=== PATIENT | male | born 1955 | race Caucasian/White ===

== ENCOUNTER → 2017-09-06 | Day surgery (SDC) | payer BC, OTHER ==
[~2017-09-06] MED LIST: DEXAMETHASONE SOD PHOS 20 MG/5 ML VIAL.; GLYCOPYRROLATE 1 MG/5 ML VIAL.; KETOROLAC 30 MG/ML INJ FOR OR. INJ; LIDOCAINE 1% PF 2 ML VIAL. ID; MIDAZOLAM HCL/PF 2 MG/2 ML VIAL.; MORPHINE SULFATE 4 MG/ML DISP.SYRIN. IV; NEOSTIGMINE 10 MG/10 ML VIAL.; ONDANSETRON PF 4 MG/2 ML VIAL.; ONDANSETRON PF 4 MG/2 ML VIAL. IV; PROCHLORPERAZINE 10 MG/2 ML VIAL. IV; PROPOFOL 20 ML IV; ROCURONIUM 50 MG/5 ML VIAL.; SEVOFLURANE 61 TO 120 MINUTES. IH; SEVOFLURANE > 120 MINUTES. IH; fentaNYL PF VIAL 100 MCG/2 ML VIAL; fentaNYL PF VIAL 100 MCG/2 ML VIAL IV
[2017-09-06] MEDS: IV RINGERS,LACTATED 1000ML 1,000 ML IV (10:11)
[2017-09-06] MEDS: BUPIVACAINE-EPI 0.25%-1:200000 50 ML VIAL. IJ (12:40)
[2017-09-06] MEDS: oxyCODONE/APAP 5/325 1 TAB TABLET PO (14:07)
== END | disposition home or self-care (01) ==
LOC: SURG 09:39
DX: K80.10 Calculus of gallbladder with chronic cholecystitis without obstruction (principal); I10 Essential (primary) hypertension; E78.5 Hyperlipidemia, unspecified; Z98.890 Other specified postprocedural states; Z96.643 Presence of artificial hip joint, bilateral; Z96.652 Presence of left artificial knee joint; Z79.899 Other long term (current) drug therapy; Z79.891 Long term (current) use of opiate analgesic; Z82.49 Family history of ischemic heart disease and other diseases of the circulatory system
CPT/HCPCS: 47562; 88304; J1100; J1885; J2250; J2405; J2704; J2710; J3010; J3490

== ENCOUNTER 2018-07-17 09:34 | Emergency (ER) | payer BC, MEDICARE, OTHER ==
[~2018-07-17] VITALS: Ht 185.4 cm; Wt 115.7 kg
[~2018-07-17 09:34] MED LIST changes: +AMLO1TAB15 PO; +AMOX1TAB10 PO; +ASPI-612 PO; +CRESTOR10 MG PO; -DEXAMETHASONE SOD PHOS 20 MG/5 ML VIAL.; +DOCU-109 PO; -GLYCOPYRROLATE 1 MG/5 ML VIAL.; -KETOROLAC 30 MG/ML INJ FOR OR. INJ; -LIDOCAINE 1% PF 2 ML VIAL. ID; +METO-269 PO; -MIDAZOLAM HCL/PF 2 MG/2 ML VIAL.; -MORPHINE SULFATE 4 MG/ML DISP.SYRIN. IV; -NEOSTIGMINE 10 MG/10 ML VIAL.; -ONDANSETRON PF 4 MG/2 ML VIAL.; -ONDANSETRON PF 4 MG/2 ML VIAL. IV; +OXYC1TAB15 PO; +POLY17PO28 PO; -PROCHLORPERAZINE 10 MG/2 ML VIAL. IV; -PROPOFOL 20 ML IV; -ROCURONIUM 50 MG/5 ML VIAL.; -SEVOFLURANE 61 TO 120 MINUTES. IH; -SEVOFLURANE > 120 MINUTES. IH; +TAMS0.4C97 PO; -fentaNYL PF VIAL 100 MCG/2 ML VIAL; -fentaNYL PF VIAL 100 MCG/2 ML VIAL IV
--- NOTE | 2018-07-17 09:58 | PHYS DOC ---
Past Medical History Past Medical History: High Cholesterol, Hypertension Past Surgical History: Cholecystectomy, Hip Replacement, Knee Replacement, Other Additional Past Surgical Histo: ORAL SURGERY Alcohol Use: None Drug Use: None Adult General Chief Complaint Chief Complaint: LOWER EXT PAIN HPI HPI Patient is a 63-year-old male who presents to the emergency department for evaluation. He had a laminectomy, secondary to cauda equina syndrome about 2 weeks ago at this facility. He also has a Parker catheter in place secondary to some problems with urination and urinary retention after surgery. He is actually scheduled to see the urologist today to see about having the Parker catheter removed. The patient has decreased sensation from his hips distally, since before his surgery. Patient presents to the emergency department today because he became conscious of some right calf pain, dispense below his right knee, this morning and is concerned about a DVT given his recent surgery. He has no prior history of venous thromboembolic disease. He also is having some discomfort to palpation on his left leg, but this was elicited only on exam and not by history. He has developed some pedal edema and the immediate post surgery.. He denies any dizziness or lightheadedness, chest pain, or shortness of breath. There are no alleviating, or exacerbating factors to his symptoms. Review of Systems Review of Systems Constitutional: Denies fever or chills [] Eyes: Denies change in visual acuity, redness, or eye pain [] HENT: Denies nasal congestion or sore throat [] Respiratory: Denies cough or shortness of breath [] Cardiovascular: The patient denies any shortness of breath, chest pain, palpitations, or orthopnea [] GI: Denies abdominal pain, nausea, vomiting, bloody stools or diarrhea [] : Denies dysuria or hematuria [] Musculoskeletal: Denies back pain or joint pain [] Integument: Denies rash or skin lesions [] Neurologic: Denies headache, new focal weakness or new sensory changes [] Endocrine: Denies polyuria or polydipsia [] All other systems were reviewed and found to be within normal limits, except as documented in this note. Allergies Allergies Allergies Coded Allergies Type Severity Reaction Last Updated Verified No Known Drug Allergies 09/06/17 No Physical Exam Physical Exam PHYSICAL EXAM: CONSTITUTIONAL: Well developed, well nourished HEAD: normocephalic, atraumatic EENT: PERRL, EOMI. Conjunctivae normal color, sclerae non-icteric; moist mucous membranes. NECK: Supple, non-tender; no meningismus. LUNGS: Lungs CTA, breathing even and unlabored. Normal air movement. HEART: Regular rate and rhythm, no murmur CHEST: No deformity; non-tender ABDOMEN: The abdomen is soft, and non-tender, no masses or bruits. EXTREM: Normal ROM; no deformity, there is mild bilateral calf tenderness. Normal pulses palpable in all extremities. There is mild bilateral pedal edema. SKIN: No rash; no diaphoresis NEURO: Alert; normal speech and cognition; CN's grossly intact; strength grossly intact without focal deficit. Gross sensation is intact in lower extremities, although the patient does report somewhat diminished sensation in the lower extremities bilaterally, symmetrically. BACK: No CVA TTP. Current Patient Data Lab Values Laboratory Tests Test 07/17/18 09:45 White Blood Count 7.6 x10^3/uL (4.0-11.0) Red Blood Count 4.86 x10^6/uL (4.30-5.70) Hemoglobin 14.7 g/dL (13.0-17.5) Hematocrit 43.8 % (39.0-53.0) Mean Corpuscular Volume 90 fL (79-100) Mean Corpuscular Hemoglobin 30 pg (25-35) Mean Corpuscular Hemoglobin Concent 34 g/dL (31-37) Red Cell Distribution Width 13.6 % (11.5-14.5) Platelet Count 264 x10^3/uL (140-400) Neutrophils (%) (Auto) 72 % (31-73) Lymphocytes (%) (Auto) 13 % (24-48) L Monocytes (%) (Auto) 7 % (0-9) Eosinophils (%) (Auto) 8 % (0-3) H Basophils (%) (Auto) 1 % (0-3) Neutrophils # (Auto) 5.5 x10^3uL (1.8-7.7) Lymphocytes # (Auto) 1.0 x10^3/uL (1.0-4.8) Monocytes # (Auto) 0.5 x10^3/uL (0.0-1.1) Eosinophils # (Auto) 0.6 x10^3/uL (0.0-0.7) Basophils # (Auto) 0.1 x10^3/uL (0.0-0.2) Sodium Level 143 mmol/L (136-145) Potassium Level 3.6 mmol/L (3.5-5.1) Chloride Level 104 mmol/L (98-107) Carbon Dioxide Level 29 mmol/L (21-32) Anion Gap 10 (6-14) Blood Urea Nitrogen 15 mg/dL (8-26) Creatinine 0.9 mg/dL (0.7-1.3) Estimated GFR (Cockcroft-Gault) 84.7 Glucose Level 124 mg/dL (70-99) H Calcium Level 9.1 mg/dL (8.5-10.1) Laboratory Tests 07/17/18 09:45 Laboratory Tests 07/17/18 09:45 EKG EKG [] Radiology/Procedures Radiology/Procedures [PROCEDURE: VENOUS LOWER EXT BILATERAL Bilateral lower extremity venous duplex study 07/17/2018 Clinical History: Post op leg pain and edema. Technique: Using a combination of real time ultrasound imaging and color-flow and pulse Doppler imaging techniques along with graded compression and augmentation, duplex evaluation of the deep venous system of the both lower extremities was performed. Multiple images were obtained. Findings: There is no sonographic evidence of deep venous thrombosis involving the visualized deep venous structures of either lower extremity. Impression: Negative study. ] Course & Med Decision Making Course & Med Decision Making Pertinent Labs and Imaging studies reviewed. (See chart for details) [10:50 AM: Patient remains stable. I discussed test results, the need for close follow-up, and return precautions.] Dragon Disclaimer Dragon Disclaimer This electronic medical record was generated, in whole or in part, using a voice recognition dictation system. Departure Departure Impression: Primary Impression: Leg pain Disposition: HOME, SELF-CARE Condition: STABLE Referrals: NIKOLE BAY MD (PCP) Patient Instructions: Leg Cramps, Peripheral Edema FENG FARRELL MD Jul 17, 2018 09:58
[2018-07-17 10:12] LABS: BASO # 0.1 x10^3/uL (0.0-0.2); BASO % 1 % (0-3); EOS # 0.6 x10^3/uL (0.0-0.7); EOS % 8 % (0-3); HEMATOCRIT 43.8 % (39.0-53.0); HEMOGLOBIN 14.7 g/dL (13.0-17.5); LYMPH % 13 % (24-48); MEAN CORPUSCULAR HEMOGLOBIN 30 pg (25-35); MEAN CORPUSCULAR HGB CONC 34 g/dL (31-37); MEAN CORPUSCULAR VOLUME 90 fL (79-100); MONO # 0.5 x10^3/uL (0.0-1.1); MONO % 7 % (0-9); NEUT # 5.5 x10^3uL (1.8-7.7); NEUT % 72 % (31-73); PLATELET COUNT 264 x10^3/uL (140-400); RED BLOOD COUNT 4.86 x10^6/uL (4.30-5.70); RED CELL DISTRIBUTION WIDTH 13.6 % (11.5-14.5); WHITE BLOOD COUNT 7.6 x10^3/uL (4.0-11.0)
[2018-07-17 10:34] LABS: CALCIUM 9.1 mg/dL (8.5-10.1); CREATININE 0.9 mg/dL (0.7-1.3); GFR 84.7; POTASSIUM 3.6 mmol/L (3.5-5.1)
--- NOTE | 2018-07-17 10:49 | RAD ---
Bilateral lower extremity venous duplex study 07/17/2018 Clinical History: Post op leg pain and edema. Technique: Using a combination of real time ultrasound imaging and color-flow and pulse Doppler imaging techniques along with graded compression and augmentation, duplex evaluation of the deep venous system of the both lower extremities was performed. Multiple images were obtained. Findings: There is no sonographic evidence of deep venous thrombosis involving the visualized deep venous structures of either lower extremity. Impression: Negative study. Electronically signed by: Jax Morris MD (07/17/2018 10:45 AM) [id number]
[2018-07-17 11:30] VITALS: BP 139/93
[2018-07-24] MEDS ORDERED: CIPR500T94 PO (08:51)
[2018-11-13] MEDS ORDERED: GABA300C18 PO (04:31)
[2018-11-15] MEDS ORDERED: VANC500V PO (10:05)
[2018-11-15] MEDS ORDERED: LACT1CAP19 PO (10:05)
== END 2018-07-17 11:44 | disposition home or self-care (01) ==
LOC: EDBD → ER 09:34
DX: G89.18 Other acute postprocedural pain (principal); M79.661 Pain in right lower leg; R30.0 Dysuria; R33.9 Retention of urine, unspecified; E78.00 Pure hypercholesterolemia, unspecified; I10 Essential (primary) hypertension; Z96.649 Presence of unspecified artificial hip joint; Z96.659 Presence of unspecified artificial knee joint; Z90.49 Acquired absence of other specified parts of digestive tract
CPT/HCPCS: 36415; 80048; 85025; 93970; 99284-25

== ENCOUNTER 2018-09-03 10:37 | Inpatient (IN) | payer BC, MEDICARE, OTHER ==
[~2018-09-03] VITALS: Ht 185.4 cm; Wt 123.6 kg
[~2018-09-03 10:37] MED LIST changes: +CIPR500T94 PO
[2018-09-03 14:00] VITALS: BP 159/89
[2018-09-03] MEDS ORDERED: GADOBUTROL 10 MMOL/10 ML VIAL IV ONE (15:15)
[2018-09-03] MEDS ORDERED: oxyCODONE/APAP 5/325 1 TAB TABLET PO PRN ×2 (15:30→17:45)
[2018-09-03] MEDS ORDERED: DOCUSATE SODIUM 100 MG CAPSULE. PO PRN (15:30)
[2018-09-03] MEDS: ASPIRIN ENTERIC COATED 81 MG TABLET.DR. PO SCH (16:30)
[2018-09-03] MEDS: amLODIPine BESYLATE 10 MG TABLET PO SCH (16:30)
[2018-09-03] MEDS: METOPROLOL SUCC 24HR ER 50 MG TAB.ER.24H. PO SCH (16:30)
[2018-09-03] MEDS: LOSARTAN POTASSIUM 50 MG TABLET. PO SCH (16:30)
--- NOTE | 2018-09-03 16:33 | RAD ---
MR thoracic and lumbar spine without and with contrast 09/03/2018 INDICATION: Lower extremity weakness. Unable to ambulate are scanned. COMPARISON: MR thoracic and lumbar spine July 03, 2018 TECHNIQUE: Multiplanar, multisequence MR imaging of the thoracic and lumbar sinus performed with and without intravenous contrast. FINDINGS: Alignment of the thoracic spine appears normal. Vertebral body heights are maintained. Marrow signal intensity appears similar with Modic type II endplate degenerative changes are identified at T5-T6 and T7-T8. Mild to moderate anterior marginal osteophytosis is noted throughout the thoracic spine. Multilevel disc bulges appears similar compared to prior examination. There is new cord signal alteration involving the central cord from T9-T10 through the conus medullaris. There is minimal enhancement at the level of the conus medullaris. There is minimal prominence of the central ependymal canal measuring 2 mm. Appearance is most suggestive of transverse myelitis. There are areas of up to mild spinal canal stenosis, not significantly changed the prior examination. Multilevel mild neuroforaminal stenosis appears stable. Thoracic aorta is normal in caliber. No suspicious pulmonary abnormalities identified. Visualized portions of the upper abdomen appear similar. There is minimal retrolisthesis of L4 on L5. There is minimal retrolisthesis of L5 on S1. There is moderate disc height loss at L3-L4, L4-L5 and L5-S1. There is endplate irregularity with Modic type II endplate degenerative changes at L5-S1. Conus medullaris terminates at L1. Cauda equina nerve roots appear normal in appearance. Abdominal aorta is normal in caliber. There is similar appearance of the retroperitoneum. No suspicious findings are identified. Versus portions of the sacrum appear intact. L1-L2: Disc is normal in configuration. There is no neuroforaminal or spinal canal stenosis. L2-L3: There is a left central disc protrusion. There is mild right and moderate left facet arthropathy. There is mild left neuroforaminal stenosis. Mild spinal canal stenosis. Findings appear stable. L3-L4: There is a moderate disc bulge. There is moderate facet arthropathy. There is moderate bilateral neuroforaminal stenosis. Laminectomy changes are identified. No residual spinal canal stenosis is identified. There is decompression of the thecal sac. L4-L5: There is a moderate disc bulge with central disc protrusion. There is moderate facet arthropathy. There is moderate to severe bilateral neuroforaminal stenosis. No residual spinal canal stenosis status post laminectomy decompression. L5-S1: There is mild disc bulge. There is moderate facet arthropathy. There is moderate right and moderate to severe left neuroforaminal stenosis. No spinal canal stenosis. IMPRESSION: 1. New cord signal alteration involving the thoracic cord to the level of the conus from T9-T10, involving the central cord diffusely without definite cord expansion. There is enhancement involving the conus medullaris. Findings are most suggestive of transverse myelitis. 2. Postoperative changes are identified from laminectomy in the lower lumbar spine from L3 through L5 without residual spinal canal stenosis. 3. Moderate degenerative changes of the lumbar spine are described in detail above. Critical results were discussed with Dr. Benitez at 4:30 PM on 09/03/[address] Lima. Electronically signed by: Missy Lima MD (09/03/2018 4:30 PM) [id number]
[2018-09-03 16:55] LABS: BASO # 0.1 x10^3/uL (0.0-0.2); BASO % 1 % (0-3); EOS # 0.2 x10^3/uL (0.0-0.7); EOS % 2 % (0-3); HEMATOCRIT 43.6 % (39.0-53.0); HEMOGLOBIN 14.5 g/dL (13.0-17.5); LYMPH % 10 % (24-48); MEAN CORPUSCULAR HEMOGLOBIN 30 pg (25-35); MEAN CORPUSCULAR HGB CONC 33 g/dL (31-37); MEAN CORPUSCULAR VOLUME 90 fL (79-100); MONO # 0.7 x10^3/uL (0.0-1.1); MONO % 7 % (0-9); NEUT % 80 % (31-73); PLATELET COUNT 212 x10^3/uL (140-400); RED BLOOD COUNT 4.85 x10^6/uL (4.30-5.70)
[2018-09-03 17:17] LABS: ALBUMIN/GLOBULIN RATIO 0.7 (1.0-1.7); CALCIUM 8.5 mg/dL (8.5-10.1); CREATININE 0.7 mg/dL (0.7-1.3); GFR 113.2; POTASSIUM 3.9 mmol/L (3.5-5.1); TOTAL BILIRUBIN 0.5 mg/dL (0.2-1.0); TOTAL PROTEIN 7.1 g/dL (6.4-8.2)
--- NOTE | 2018-09-03 17:21 | PDOC1 ---
History and Physical Date of Admission Date of Admission DATE: 09/03/18 TIME: 17:20 Identification/Chief Complaint Chief Complaint CC 63-year-old gentleman with past medical history of Equina syndrome. He recently underwent surgery from the neurosurgical standpoint of view. Unfortunately as a consequence of his hospital stay he suffered urinary retention, now straight caths MRI T/S TODAY C/W NEW FINDINGS OF TRANSVERSE MYELITIS, HAS NOTICED inability to ambulate or hold his weight with a walker x 2-3 days, unable to negotiate steps Past Medical History Past Medical History Past Medical History Past Medical History: High Cholesterol, Hypertension Past Surgical History: Cholecystectomy, Hip Replacement, Knee Replacement, Lumbar Laminectomy, Other Additional Past Surgical Histo: oral surgery. Alcohol Use: Occasionally Drug Use: None FAMILY HX HTN PATIENT: DONAVON TRAVIS ACCOUNT: [id number] : 1955 LOC: [address] [place] [address] AGE: 63 SEX: M STATUS: DIS IN LOCATION: [address] [place] [address] DATE OF SURGERY: 07/03/2018 PREOPERATIVE DIAGNOSES: 1. Lumbar spinal stenosis, L3-L4. 2. Epidural abscess, L5-S1. POSTOPERATIVE DIAGNOSES: 1. Lumbar spinal stenosis, L3-L4. 2. Lateral recess stenosis without epidural abscess, L5-S1. OPERATION PERFORMED: Lumbar laminectomy, L3-L4, L5-S1 with decompression of dura and nerve root. SURGEON: Taj Benitez M.D. Past Medical History Cardiovascular: HTN, Hyperlipidemia, Other Pulmonary: No pertinent hx CENTRAL NERVOUS SYSTEM: Periperal neuropathy GI: No pertinent hx Heme/Onc: No pertinent hx Hepatobiliary: No pertinent hx, Cholelithiasis Psych: No pertinent hx Rheumatologic: No pertinent hx Infectious disease: No pertinent hx Renal/: No pertinent hx Endocrine: No pertinent hx Past Surgical History Past Surgical History: Other Family History Family History: Heart Disease, Social History ALCOHOL: occassional Drugs: None Cardiovascular: HTN, Hyperlipidemia, Other Pulmonary: No pertinent hx CENTRAL NERVOUS SYSTEM: Periperal neuropathy GI: No pertinent hx Heme/Onc: No pertinent hx Hepatobiliary: No pertinent hx, Cholelithiasis Psych: No pertinent hx Musculoskeletal: Osteoarthritis, Other Rheumatologic: No pertinent hx Infectious disease: No pertinent hx Renal/: No pertinent hx Endocrine: No pertinent hx Past Surgical History Past Surgical History: Other Family History Family History: Heart Disease, Other Social History Smoke: No ALCOHOL: none Drugs: None Current Medications Current Medications Current Medications Gadobutrol (Gadavist) 10 mmol 1X ONCE IV Last administered on 09/03/18at 15:35 ; Start 09/03/18 at 15:15; Stop 09/03/18 at 15:16; Status DC Aspirin (Ecotrin) 81 mg DAILYWBKFT PO ; Start 09/03/18 at 16:30 Docusate Sodium (Colace) 100 mg PRN DAILY PRN PO HARD STOOLS; Start 09/03/18 at 15:30 Tamsulosin HCl (Flomax) 0.4 mg BID PO ; Start 09/03/18 at 21:00 Non-Formulary Medication (Amlodipine/ Valsartan (Exforge 10-320 Mg Tablet)) 1 tab DAILY PO ; Start 09/04/18 at 09:00; Status UNV Metoprolol Succinate (Toprol Xl) 50 mg DAILY PO ; Start 09/03/18 at 16:30 Polyethylene Glycol (miraLAX PACKET) 17 gm PRN DAILY PRN PO CONSTIPATION 2ND CHOICE; Start 09/04/18 at 09:00 Atorvastatin Calcium (Lipitor) 40 mg QHS PO ; Start 09/03/18 at 21:00 Oxycodone/ Acetaminophen (Percocet 5/325) 1 tab PRN Q4HRS PRN PO PAIN; Start at 15:30 Amlodipine Besylate (Norvasc) 10 mg DAILY PO ; Start 09/03/18 at 16:30 Losartan Potassium (Cozaar) 100 mg DAILY PO ; Start 09/03/18 at 16:30 Active Scripts Active Cipro (Ciprofloxacin Hcl) 500 Mg Tablet 1 Tab PO BID Aspirin Ec (Aspirin) 81 Mg Tablet.dr 81 Mg PO DAILYWBKFT 30 Days Colace (Docusate Sodium) 100 Mg Capsule 100 Mg PO PRN DAILY PRN 30 Days Polyethylene Glycol 3350 17 Gm Powd.pack 17 Gm PO PRN DAILY PRN 14 Days Flomax (Tamsulosin Hcl) 0.4 Mg Cap.er.24h 0.4 Mg PO BID 30 Days Reported Percocet 5-325 Mg Tablet (Oxycodone/Acetaminophen) 1 Each Tablet 1-2 Tab PO Q4-6HRS Exforge 10-320 Mg Tablet (Amlodipine/Valsartan) 1 Each Tablet 1 Tab PO DAILY Crestor (Rosuvastatin Calcium) 10 Mg Tablet 1 Tab PO DAILY Toprol Xl (Metoprolol Succinate) 50 Mg Tab.er.24h 1 Tab PO DAILY Allergies Allergies: Coded Allergies: No Known Drug Allergies (Unverified , 09/06/17) ROS Review of System Review of Systems Review of Systems Constitutional: NEG fever and chills [] Respiratory: Denies cough or shortness of breath [] Cardiovascular: No additional information not addressed in HPI [] GI: Denies abdominal pain, nausea, vomiting or diarrhea [] Musculoskeletal: Denies back pain. Complains BILATER LEG WEAKNESS [] Integument: Denies rash or skin lesions [] 14 PT systems were reviewed and found to be within normal limits, except as documented Physical Exam Physical Exam Physical Exam Physical Exam Constitutional: Well developed, well nourished, no acute distress, non-toxic appearance. [] HENT: Normocephalic, atraumatic, bilateral external ears normal, oropharynx moist, no oral exudates, nose normal. [] Eyes: PERRLA, EOMI, conjunctiva normal, no discharge. [] Neck: Normal range of motion, no tenderness, supple. [] Cardiovascular: Regular rate and rhythm [] Lungs & Thorax: Bilateral breath sounds clear to auscultation [] Abdomen: Bowel sounds normal, soft, no tenderness. [] Skin: Warm, dry, no erythema, no rash. [] Extremities: No tenderness, no cyanosis, no clubbing, ROM intact. [] Neurologic: Awake and alert. [] Abdomen: Soft Rectal Exam: not examined PELVIC: Examination not indicated Extremities: No cyanosis Neuro: Cranial nerves 3-12 NL, Other (AREFLEXIC BOTH LOWER LEGS) Vitals Vitals Vital Signs Date Time Temp Pulse Resp B/P (MAP) Pulse Ox O2 Delivery O2 Flow Rate FiO2 09/03/18 14:00 98.1 86 18 159/89 (112) 96 Room Air 98.1 Labs Labs URINE CULTURE Final Final report URINE CULTURE RES 1 Final Escherichia coli Greater than 100,000 colony forming units per mL Cefazolin <=4 ug/mL Cefazolin with an LUIS M <=16 predicts susceptibility to the oral agents cefaclor, cefdinir, cefpodoxime, cefprozil, cefuroxime, cephalexin, and loracarbef when used for therapy of uncomplicated urinary tract infections due to E. coli, Klebsiella pneumoniae, and Proteus mirabilis. ANTIMICROBIAL SUSCEPTIBILITY Final Comment S = Susceptible; I = Intermediate; R = Resistant P = Positive; N = Negative MICS are expressed in micrograms per mL Antibiotic RSLT#1 RSLT#2 RSLT#3 RSLT#4 Amoxicillin/Clavulanic Acid S<=2 Ampicillin S<=2 Cefepime S<=0.12 Ceftriaxone S<=0.25 Cefuroxime S =4 Ciprofloxacin S<=0.25 Ertapenem S<=0.12 Gentamicin S<=1 Imipenem S<=0.25 Levofloxacin S<=0.12 Meropenem S<=0.25 Nitrofurantoin S<=16 Piperacillin/Tazobactam S<=4 Tetracycline S<=1 Tobramycin S<=1 Trimethoprim/Sulfa S<=20 Performed at: [facility] - [facility] [address], [place], [place] [id number] Laboratory Tests Test 09/03/18 16:45 White Blood Count 10.0 x10^3/uL (4.0-11.0) Red Blood Count 4.85 x10^6/uL (4.30-5.70) Hemoglobin 14.5 g/dL (13.0-17.5) Hematocrit 43.6 % (39.0-53.0) Mean Corpuscular Volume 90 fL (79-100) Mean Corpuscular Hemoglobin 30 pg (25-35) Mean Corpuscular Hemoglobin Concent 33 g/dL (31-37) Red Cell Distribution Width 14.0 % (11.5-14.5) Platelet Count 212 x10^3/uL (140-400) Neutrophils (%) (Auto) 80 % (31-73) Lymphocytes (%) (Auto) 10 % (24-48) Monocytes (%) (Auto) 7 % (0-9) Eosinophils (%) (Auto) 2 % (0-3) Basophils (%) (Auto) 1 % (0-3) Neutrophils # (Auto) 8.0 x10^3uL (1.8-7.7) Lymphocytes # (Auto) 1.0 x10^3/uL (1.0-4.8) Monocytes # (Auto) 0.7 x10^3/uL (0.0-1.1) Eosinophils # (Auto) 0.2 x10^3/uL (0.0-0.7) Basophils # (Auto) 0.1 x10^3/uL (0.0-0.2) Sodium Level 142 mmol/L (136-145) Potassium Level 3.9 mmol/L (3.5-5.1) Chloride Level 104 mmol/L (98-107) Carbon Dioxide Level 29 mmol/L (21-32) Anion Gap 9 (6-14) Blood Urea Nitrogen 15 mg/dL (8-26) Creatinine 0.7 mg/dL (0.7-1.3) Estimated GFR (Cockcroft-Gault) 113.2 BUN/Creatinine Ratio 21 (6-20) Glucose Level 104 mg/dL (70-99) Calcium Level 8.5 mg/dL (8.5-10.1) Total Bilirubin 0.5 mg/dL (0.2-1.0) Aspartate Amino Transf (AST/SGOT) 20 U/L (15-37) Alanine Aminotransferase (ALT/SGPT) 26 U/L (16-63) Alkaline Phosphatase 86 U/L (46-116) Total Protein 7.1 g/dL (6.4-8.2) Albumin 3.0 g/dL (3.4-5.0) Albumin/Globulin Ratio 0.7 (1.0-1.7) Laboratory Tests Test 09/03/18 16:45 White Blood Count 10.0 x10^3/uL (4.0-11.0) Red Blood Count 4.85 x10^6/uL (4.30-5.70) Hemoglobin 14.5 g/dL (13.0-17.5) Hematocrit 43.6 % (39.0-53.0) Mean Corpuscular Volume 90 fL (79-100) Mean Corpuscular Hemoglobin 30 pg (25-35) Mean Corpuscular Hemoglobin Concent 33 g/dL (31-37) Red Cell Distribution Width 14.0 % (11.5-14.5) Platelet Count 212 x10^3/uL (140-400) Neutrophils (%) (Auto) 80 % (31-73) Lymphocytes (%) (Auto) 10 % (24-48) Monocytes (%) (Auto) 7 % (0-9) Eosinophils (%) (Auto) 2 % (0-3) Basophils (%) (Auto) 1 % (0-3) Neutrophils # (Auto) 8.0 x10^3uL (1.8-7.7) Lymphocytes # (Auto) 1.0 x10^3/uL (1.0-4.8) Monocytes # (Auto) 0.7 x10^3/uL (0.0-1.1) Eosinophils # (Auto) 0.2 x10^3/uL (0.0-0.7) Basophils # (Auto) 0.1 x10^3/uL (0.0-0.2) Sodium Level 142 mmol/L (136-145) Potassium Level 3.9 mmol/L (3.5-5.1) Chloride Level 104 mmol/L (98-107) Carbon Dioxide Level 29 mmol/L (21-32) Anion Gap 9 (6-14) Blood Urea Nitrogen 15 mg/dL (8-26) Creatinine 0.7 mg/dL (0.7-1.3) Estimated GFR (Cockcroft-Gault) 113.2 BUN/Creatinine Ratio 21 (6-20) Glucose Level 104 mg/dL (70-99) Calcium Level 8.5 mg/dL (8.5-10.1) Total Bilirubin 0.5 mg/dL (0.2-1.0) Aspartate Amino Transf (AST/SGOT) 20 U/L (15-37) Alanine Aminotransferase (ALT/SGPT) 26 U/L (16-63) Alkaline Phosphatase 86 U/L (46-116) Total Protein 7.1 g/dL (6.4-8.2) Albumin 3.0 g/dL (3.4-5.0) Albumin/Globulin Ratio 0.7 (1.0-1.7) Images Images STATUS: ADM IN ORD. PHYSICIAN: CHANTELLE PICKERING MD REASON: fever, UTI, TO DO 07/22/2018 PER BRITTANEY WILKERSONWORD PROCESSOR: CT ABDOMEN PELVIS WO CONTRAST Examination: CT ABDOMEN PELVIS WO CONTRAST History: Fever, UTI Comparison/Correlation: None Findings: Axial images of the abdomen and pelvis were obtained without contrast. Sagittal and coronal reformatted images were provided. Very small pleural effusions are present. Minimal right costophrenic sulcus atelectasis noted. Liver, spleen, pancreas, adrenal glands, and kidneys are normal. No radiopaque collecting system calculus. No ascites or pelvic free fluid. Cholecystectomy evident. Moderate quantity of stool in the colon is present. Appendix is normal. Minimal stranding or edema is noted anterior to the right and left psoas muscles at the upper pelvic level. No extraluminal gas. No bowel obstruction. Bilateral hip joint prostheses are present with streak artifact limiting assessment of the pelvis. Minimal presacral edema. Urinary bladder is unremarkable. Severe disc space narrowing is present from L4 to S1. Moderate to severe L3-4 disc space narrowing is present. Bilateral L5 3 and L5 laminectomy defects are present. Impression: Very small pleural effusions with minimal right costophrenic sulcus atelectasis. No focal inflammatory process or collection. There is nonspecific stranding or edema anterior to the psoas muscles and minimal presacral edema. These are of indeterminate age. Electronically signed by: Igor Urena MD (07/22/2018 8:52 AM) [id number] REASON: lower extremity weakness PROCEDURE: LUMBAR SPINE WO/W CONTRAST MR thoracic and lumbar spine without and with contrast 09/03/2018 INDICATION: Lower extremity weakness. Unable to ambulate are scanned. COMPARISON: MR thoracic and lumbar spine July 03, 2018 TECHNIQUE: Multiplanar, multisequence MR imaging of the thoracic and lumbar sinus performed with and without intravenous contrast. FINDINGS: Alignment of the thoracic spine appears normal. Vertebral body heights are maintained. Marrow signal intensity appears similar with Modic type II endplate degenerative changes are identified at T5-T6 and T7-T8. Mild to moderate anterior marginal osteophytosis is noted throughout the thoracic spine. Multilevel disc bulges appears similar compared to prior examination. There is new cord signal alteration involving the central cord from T9-T10 through the conus medullaris. There is minimal enhancement at the level of the conus medullaris. There is minimal prominence of the central ependymal canal measuring 2 mm. Appearance is most suggestive of transverse myelitis. There are areas of up to mild spinal canal stenosis, not significantly changed the prior examination. Multilevel mild neuroforaminal stenosis appears stable. Thoracic aorta is normal in caliber. No suspicious pulmonary abnormalities identified. Visualized portions of the upper abdomen appear similar. There is minimal retrolisthesis of L4 on L5. There is minimal retrolisthesis of L5 on S1. There is moderate disc height loss at L3-L4, L4-L5 and L5-S1. There is endplate irregularity with Modic type II endplate degenerative changes at L5-S1. Conus medullaris terminates at L1. Cauda equina nerve roots appear normal in appearance. Abdominal aorta is normal in caliber. There is similar appearance of the retroperitoneum. No suspicious findings are identified. Versus portions of the sacrum appear intact. L1-L2: Disc is normal in configuration. There is no neuroforaminal or spinal canal stenosis. L2-L3: There is a left central disc protrusion. There is mild right and moderate left facet arthropathy. There is mild left neuroforaminal stenosis. Mild spinal canal stenosis. Findings appear stable. L3-L4: There is a moderate disc bulge. There is moderate facet arthropathy. There is moderate bilateral neuroforaminal stenosis. Laminectomy changes are identified. No residual spinal canal stenosis is identified. There is decompression of the thecal sac. L4-L5: There is a moderate disc bulge with central disc protrusion. There is moderate facet arthropathy. There is moderate to severe bilateral neuroforaminal stenosis. No residual spinal canal stenosis status post laminectomy decompression. L5-S1: There is mild disc bulge. There is moderate facet arthropathy. There is moderate right and moderate to severe left neuroforaminal stenosis. No spinal canal stenosis. IMPRESSION: 1. New cord signal alteration involving the thoracic cord to the level of the conus from T9-T10, involving the central cord diffusely without definite cord expansion. There is enhancement involving the conus medullaris. Findings are most suggestive of transverse myelitis. 2. Postoperative changes are identified from laminectomy in the lower lumbar spine from L3 through L5 without residual spinal canal stenosis. 3. Moderate degenerative changes of the lumbar spine are described in detail above. Critical results were discussed with Dr. Benitez at 4:30 PM on 09/03/[address] Dixon. Electronically signed by: Arsen Dixon MD (09/03/2018 4:30 PM) [id number] DICTATED and SIGNED BY: ARSEN DIXON MD DATE: 09/03/18 1630 VTE Prophylaxis Ordered VTE Prophylaxis Devices: Yes VTE Pharmacological Prophylaxi: Yes Assessment/Plan Assessment/Plan IMPRESSION: 1. New cord signal alteration 09/03 on mri involving the thoracic cord to the level of the conus from T9-T10, involving the central cord diffusely without definite cord expansion. There is enhancement involving the conus medullaris. Findings are most suggestive of transverse myelitis. 2. Postoperative changes are identified from laminectomy in the lower lumbar spine from L3 through L5 without residual spinal canal stenosis 3.Neurogenic bladder 4.hyperlipidemia 5.Essential hypertension 6. recent cauda equina syndrome status post surgery - 7. Lumbar laminectomy, L3-L4, L5-S1 with decompression of dura and nerve root. plan admit neurosurg consult neurology consult [facility] CBC COMP CONSULT DR BASHIR BP CONTROL 80 min pt exam, chart review, > 50% of time with exam, chart review, pt care coordination RYLIE ARVIZU MD Sep 03, 2018 17:21
[2018-09-03] MEDS ORDERED: ACETAMINOPHEN 325 MG TABLET. PO PRN (18:45)
--- NOTE | 2018-09-03 19:12 | HP ---
ADMIT DATE: 09/03/2018 CHIEF COMPLAINT: Lower extremities weakness. HISTORY OF PRESENT ILLNESS: The patient is a pleasant 63-year-old man who in late June underwent emergent lumbar surgery at L3-L4 and L5-S1 for lumbar stenosis and loss of bowel and bladder function as well as leg pain, right greater than the left. He improved significantly with strength and sensation in the lower extremities. He was discharged and was placed into physical therapy. He did continue to straight cath. A few weeks after surgery he did develop problems with UTI and then later problems with C. diff, but those problems resolved. His and he reported that about 2 weeks ago, he fell in the shower and then after that time began noticing increasing weakness in his legs. He says that for the last 3 days, he has had difficulty transferring from wheelchair to his bed and has been basically at bed rest. We were contacted today about the situation and elected to admit him for further evaluation and treatment. In speaking with the patient, he says that he notices change in sensation in the lower abdomen, which extends to involve both of his legs. He says that his right leg feels weaker than his left leg. PAST MEDICAL HISTORY: Includes hypertension and hyperlipidemia. PAST SURGICAL HISTORY: Hip replacement, knee replacement surgeries as well as lumbar surgery as described above. PERSONAL HISTORY: He does not smoke. He occasionally drinks alcohol. ALLERGIES: There are no known allergies to medications. MEDICATIONS: Available in the chart and are noncontributory. REVIEW OF SYSTEMS: A 12-point review was performed and as outlined above was negative. PHYSICAL EXAMINATION: GENERAL: Pleasant and cooperative. Alert and conversant. HEENT: Normocephalic, atraumatic. NECK: Supple. NEUROLOGIC: There was full range of motion of his upper extremities along with normal strength in his upper extremities. Sensory examination was also normal in the upper extremities with 1+ reflexes. Strength in his left lower extremity was 4+/5 including hip flexor, knee extension. Foot dorsi and plantar flexion on the left was 3/5. On the right side, strength was 3/5 diffusely in the legs except for 2/5 foot dorsi and plantar flexion. On sensory testing, there was a sensory level in the lower abdominal region with decreased sensation involving both of his legs equally. He was areflexic in his lower extremities. Examination of the spine, there is a well-healed incision, which is nontender. LABORATORY DATA: I reviewed a thoracic and lumbar MRI scan. On the lumbar study, these areas of stenosis had been completely relieved with the surgery done in June. On the thoracic MRI scan when compared to a previous thoracic MRI scan done in June, there is evidence of cord signal alteration which extends from the conus up to about T9-T10, this involves a central cord. There was not significant cord expansion. There is enhancement in the conus region. IMPRESSION: The images strongly suggest transverse myelitis, which clearly was not present on the scan done in June. PLAN: We are going to have Neurology see the patient. I will ask Dr. Frias to see the patient as well and Medicine has been consulted. FELICITY DORANTES MD DR: BRIAN/sen JOB#: [id number] / [id number] XIMENA
[2018-09-03 19:30] VITALS: BP 146/83
[2018-09-03 19:32] LABS: BILIRUBIN,URINE NEGATIVE (NEG); CLARITY,URINE CLEAR; COLOR,URINE YELLOW; NITRITE,URINE NEGATIVE (NEG); PH,URINE 6.5; PROTEIN,URINE NEGATIVE (NEG-TRACE); UROBILINOGEN,URINE 0.2 mg/dL (0.2 mg/dL)
[2018-09-03 19:59] LABS: AMORPHOUS SEDIMENT,UR PRESENT /HPF; BACTERIA,URINE FEW /HPF (0-FEW); RBC,URINE OCC /HPF (0-2); SQUAMOUS EPITHELIAL CELL,UR OCC /LPF
--- NOTE | 2018-09-03 20:04 | NUR ---
Pt arrived via stretcher with EMS. A&O X 4. VSS, denied pain, complained of bilateral lower extremity weakness. Complete admission assessment. Awaiting orders from Oriented to room. call light within reach. at bedside. will continue to monitor.
[2018-09-03] MEDS: TAMSULOSIN 0.4 MG CAP.ER.24H. PO SCH (21:01)
[2018-09-03] MEDS: ATORVASTATIN CALCIUM 40 MG TABLET. PO SCH (21:01)
[2018-09-03] MEDS: CIPROFLOXACIN HCL 250 MG TABLET. PO SCH (21:02)
--- NOTE | 2018-09-03 21:38 | RAD ---
CLINICAL HISTORY: BILAT LEG SWELLING, WEAKNESS COMPARISON: None available. TECHNIQUE: Ultrasound evaluation of the bilateral lower extremities was performed from the groin to the upper calf with bautista scale, spectral and color doppler evaluation. FINDINGS: Right lower extremity: The common femoral vein, and femoral vein, including the saphenous-femoral junction are normal in appearance. Color and spectral Doppler evaluation demonstrates normal spontaneous flow, augmentation and phasicity. The popliteal vein also demonstrates normal compressibility and flow. Nonocclusive thrombus is seen within the right posterior tibial vein and peroneal vein. Left lower extremity: The common femoral vein, and femoral vein, including the saphenous-femoral junction are normal in appearance. Color and spectral Doppler evaluation demonstrates normal spontaneous flow, augmentation and phasicity. The popliteal vein and visualized calf veins also demonstrate normal compressibility and flow. Mild edema is seen within the bilateral lower extremities. IMPRESSION: 1. Nonocclusive thrombus is seen within the right posterior tibial vein and peroneal vein. 2. Bilateral lower extremity edema. Electronically signed by: Werner Benson MD (09/03/2018 9:35 PM) [facility]
[2018-09-03 23:43] VITALS: BP 142/75
[2018-09-04] MEDS: oxyCODONE/APAP 5/325 1 TAB TABLET PO PRN ×5 (00:01→19:54)
[2018-09-04 03:13] VITALS: BP 115/66
[2018-09-04 04:58] LABS: BASO # 0.1 x10^3/uL (0.0-0.2); BASO % 1 % (0-3); EOS # 0.2 x10^3/uL (0.0-0.7); EOS % 2 % (0-3); LYMPH # 1.3 x10^3/uL (1.0-4.8); LYMPH % 13 % (24-48); MEAN CORPUSCULAR HEMOGLOBIN 30 pg (25-35); MEAN CORPUSCULAR HGB CONC 33 g/dL (31-37); MEAN CORPUSCULAR VOLUME 90 fL (79-100); MONO # 0.9 x10^3/uL (0.0-1.1); MONO % 9 % (0-9); NEUT # 7.7 x10^3uL (1.8-7.7); NEUT % 75 % (31-73); PLATELET COUNT 195 x10^3/uL (140-400); RED BLOOD COUNT 4.35 x10^6/uL (4.30-5.70); RED CELL DISTRIBUTION WIDTH 14.1 % (11.5-14.5); WHITE BLOOD COUNT 10.2 x10^3/uL (4.0-11.0)
[2018-09-04 05:18] LABS: CALCIUM 8.1 mg/dL (8.5-10.1); CREATININE 0.8 mg/dL (0.7-1.3); POTASSIUM 3.5 mmol/L (3.5-5.1)
[2018-09-04 07:00] VITALS: BP 138/71
[2018-09-04] MEDS: ASPIRIN ENTERIC COATED 81 MG TABLET.DR. PO SCH (07:52)
[2018-09-04] MEDS: amLODIPine BESYLATE 10 MG TABLET PO SCH (07:53)
[2018-09-04] MEDS: CIPROFLOXACIN HCL 250 MG TABLET. PO SCH ×2 (07:53→21:12)
[2018-09-04] MEDS: TAMSULOSIN 0.4 MG CAP.ER.24H. PO SCH ×2 (07:54→21:13)
[2018-09-04] MEDS: METOPROLOL SUCC 24HR ER 50 MG TAB.ER.24H. PO SCH (07:54)
[2018-09-04] MEDS: LOSARTAN POTASSIUM 50 MG TABLET. PO SCH (08:18)
[2018-09-04] MEDS ORDERED: AMLODIPINE PO SCH (09:00)
[2018-09-04] MEDS ORDERED: POLYETHYLENE GLYCOL 3350 17 GM PACKET. PO PRN (09:00)
[2018-09-04] MEDS ORDERED: VALSARTAN PO SCH (09:00)
--- NOTE | 2018-09-04 09:11 | NUR ---
SW following for discharge planning. Discussed with RN, pt is from home with . is very supportive and wants to take care of pt. Per RN, pt had a surgery last month possibly and has had some complications since. SW awaiting PT/OT recommendations for discharge planning.
[2018-09-04] MEDS ORDERED: BISACODYL 10 MG SUPP.RECT. PR PRN (09:30)
[2018-09-04] MEDS ORDERED: DOCUSATE SODIUM 283 MG/5 ML ENEMA. PR PRN (09:30)
[2018-09-04] MEDS ORDERED: methylPREDNISolone 4 MG TABLET. PO SCH ×2 (10:00→12:30)
[2018-09-04] MEDS: BISACODYL 5 MG TABLET.DR. PO SCH (10:00)
[2018-09-04 11:00] VITALS: BP 125/80
[2018-09-04] MEDS: PANTOPRAZOLE 40 MG TABLET.DR. PO SCH (11:07)
[2018-09-04] MEDS ORDERED: HYDROCORTISONE ACETATE 25 MG SUPP.RECT PR PRN (13:30)
[2018-09-04] MEDS ORDERED: GADOBUTROL 10 MMOL/10 ML VIAL IV ONE (13:30)
--- NOTE | 2018-09-04 13:45 | PDOC ---
PROGRESS NOTES Subjective Subjective resting in bed back pain controlled with medication no significant improvement in LE strength at bedside Objective Objective Vital Signs Date Time Temp Pulse Resp B/P (MAP) Pulse Ox O2 Delivery O2 Flow Rate FiO2 09/04/18 11:07 Room Air 09/04/18 11:00 98.0 52 18 125/80 (95) 91 98.0 Intake and Output 09/04/18 07:00 Intake Total 480 ml Output Total 2510 ml Balance -2030 ml Intake Oral 480 ml Output Urine Total 2510 ml Physical Exam General: Alert, Oriented X3, Cooperative, No acute distress Neuro: Other (no change in neuro exam) Plan Plan of Care continue steroids per neurology PT lovenox Dr. Frias following, will need rehab Dr. Carrasquillo following and LP and MRI brain ordered D/W Dr. Baez D/W Comment Review of Relevant I have reviewed the following items franc (where applicable) has been applied. Labs Laboratory Tests Test 09/03/18 16:45 09/03/18 19:18 09/04/18 03:35 White Blood Count 10.0 x10^3/uL (4.0-11.0) 10.2 x10^3/uL (4.0-11.0) Red Blood Count 4.85 x10^6/uL (4.30-5.70) 4.35 x10^6/uL (4.30-5.70) Hemoglobin 14.5 g/dL (13.0-17.5) 13.0 g/dL (13.0-17.5) Hematocrit 43.6 % (39.0-53.0) 39.0 % (39.0-53.0) Mean Corpuscular Volume 90 fL (79-100) 90 fL (79-100) Mean Corpuscular Hemoglobin 30 pg (25-35) 30 pg (25-35) Mean Corpuscular Hemoglobin Concent 33 g/dL (31-37) 33 g/dL (31-37) Red Cell Distribution Width 14.0 % (11.5-14.5) 14.1 % (11.5-14.5) Platelet Count 212 x10^3/uL (140-400) 195 x10^3/uL (140-400) Neutrophils (%) (Auto) 80 % (31-73) 75 % (31-73) Lymphocytes (%) (Auto) 10 % (24-48) 13 % (24-48) Monocytes (%) (Auto) 7 % (0-9) 9 % (0-9) Eosinophils (%) (Auto) 2 % (0-3) 2 % (0-3) Basophils (%) (Auto) 1 % (0-3) 1 % (0-3) Neutrophils # (Auto) 8.0 x10^3uL (1.8-7.7) 7.7 x10^3uL (1.8-7.7) Lymphocytes # (Auto) 1.0 x10^3/uL (1.0-4.8) 1.3 x10^3/uL (1.0-4.8) Monocytes # (Auto) 0.7 x10^3/uL (0.0-1.1) 0.9 x10^3/uL (0.0-1.1) Eosinophils # (Auto) 0.2 x10^3/uL (0.0-0.7) 0.2 x10^3/uL (0.0-0.7) Basophils # (Auto) 0.1 x10^3/uL (0.0-0.2) 0.1 x10^3/uL (0.0-0.2) Sodium Level 142 mmol/L (136-145) 141 mmol/L (136-145) Potassium Level 3.9 mmol/L (3.5-5.1) 3.5 mmol/L (3.5-5.1) Chloride Level 104 mmol/L (98-107) 106 mmol/L (98-107) Carbon Dioxide Level 29 mmol/L (21-32) 26 mmol/L (21-32) Anion Gap 9 (6-14) 9 (6-14) Blood Urea Nitrogen 15 mg/dL (8-26) 15 mg/dL (8-26) Creatinine 0.7 mg/dL (0.7-1.3) 0.8 mg/dL (0.7-1.3) Estimated GFR (Cockcroft-Gault) 113.2 97.0 BUN/Creatinine Ratio 21 (6-20) Glucose Level 104 mg/dL (70-99) 117 mg/dL (70-99) Calcium Level 8.5 mg/dL (8.5-10.1) 8.1 mg/dL (8.5-10.1) Total Bilirubin 0.5 mg/dL (0.2-1.0) Aspartate Amino Transf (AST/SGOT) 20 U/L (15-37) Alanine Aminotransferase (ALT/SGPT) 26 U/L (16-63) Alkaline Phosphatase 86 U/L (46-116) Total Protein 7.1 g/dL (6.4-8.2) Albumin 3.0 g/dL (3.4-5.0) Albumin/Globulin Ratio 0.7 (1.0-1.7) Urine Collection Type Unknown Urine Color Yellow Urine Clarity Clear Urine pH 6.5 Urine Specific Wynot 1.020 Urine Protein Negative mg/dL (NEG-TRACE) Urine Glucose (UA) Negative mg/dL (NEG) Urine Ketones (Stick) 15 mg/dL (NEG) Urine Blood Negative (NEG) Urine Nitrite Negative (NEG) Urine Bilirubin Negative (NEG) Urine Urobilinogen Dipstick 0.2 mg/dL (0.2 mg/dL) Urine Leukocyte Esterase Small (NEG) Urine RBC Occ /HPF (0-2) Urine WBC 1-4 /HPF (0-4) Urine Squamous Epithelial Cells Occ /LPF Urine Amorphous Sediment Present /HPF Urine Bacteria Few /HPF (0-FEW) Urine Mucus Slight /LPF Creatine Kinase 41 U/L (39-308) Vitamin B12 Level 1152 pg/mL (247-911) Thyroid Stimulating Hormone (TSH) 1.831 uIU/mL (0.358-3.74) Laboratory Tests Test 09/03/18 16:45 09/03/18 19:18 09/04/18 03:35 White Blood Count 10.0 x10^3/uL (4.0-11.0) 10.2 x10^3/uL (4.0-11.0) Red Blood Count 4.85 x10^6/uL (4.30-5.70) 4.35 x10^6/uL (4.30-5.70) Hemoglobin 14.5 g/dL (13.0-17.5) 13.0 g/dL (13.0-17.5) Hematocrit 43.6 % (39.0-53.0) 39.0 % (39.0-53.0) Mean Corpuscular Volume 90 fL (79-100) 90 fL (79-100) Mean Corpuscular Hemoglobin 30 pg (25-35) 30 pg (25-35) Mean Corpuscular Hemoglobin Concent 33 g/dL (31-37) 33 g/dL (31-37) Red Cell Distribution Width 14.0 % (11.5-14.5) 14.1 % (11.5-14.5) Platelet Count 212 x10^3/uL (140-400) 195 x10^3/uL (140-400) Neutrophils (%) (Auto) 80 % (31-73) 75 % (31-73) Lymphocytes (%) (Auto) 10 % (24-48) 13 % (24-48) Monocytes (%) (Auto) 7 % (0-9) 9 % (0-9) Eosinophils (%) (Auto) 2 % (0-3) 2 % (0-3) Basophils (%) (Auto) 1 % (0-3) 1 % (0-3) Neutrophils # (Auto) 8.0 x10^3uL (1.8-7.7) 7.7 x10^3uL (1.8-7.7) Lymphocytes # (Auto) 1.0 x10^3/uL (1.0-4.8) 1.3 x10^3/uL (1.0-4.8) Monocytes # (Auto) 0.7 x10^3/uL (0.0-1.1) 0.9 x10^3/uL (0.0-1.1) Eosinophils # (Auto) 0.2 x10^3/uL (0.0-0.7) 0.2 x10^3/uL (0.0-0.7) Basophils # (Auto) 0.1 x10^3/uL (0.0-0.2) 0.1 x10^3/uL (0.0-0.2) Sodium Level 142 mmol/L (136-145) 141 mmol/L (136-145) Potassium Level 3.9 mmol/L (3.5-5.1) 3.5 mmol/L (3.5-5.1) Chloride Level 104 mmol/L (98-107) 106 mmol/L (98-107) Carbon Dioxide Level 29 mmol/L (21-32) 26 mmol/L (21-32) Anion Gap 9 (6-14) 9 (6-14) Blood Urea Nitrogen 15 mg/dL (8-26) 15 mg/dL (8-26) Creatinine 0.7 mg/dL (0.7-1.3) 0.8 mg/dL (0.7-1.3) Estimated GFR (Cockcroft-Gault) 113.2 97.0 BUN/Creatinine Ratio 21 (6-20) Glucose Level 104 mg/dL (70-99) 117 mg/dL (70-99) Calcium Level 8.5 mg/dL (8.5-10.1) 8.1 mg/dL (8.5-10.1) Total Bilirubin 0.5 mg/dL (0.2-1.0) Aspartate Amino Transf (AST/SGOT) 20 U/L (15-37) Alanine Aminotransferase (ALT/SGPT) 26 U/L (16-63) Alkaline Phosphatase 86 U/L (46-116) Total Protein 7.1 g/dL (6.4-8.2) Albumin 3.0 g/dL (3.4-5.0) Albumin/Globulin Ratio 0.7 (1.0-1.7) Urine Collection Type Unknown Urine Color Yellow Urine Clarity Clear Urine pH 6.5 Urine Specific Wynot 1.020 Urine Protein Negative mg/dL (NEG-TRACE) Urine Glucose (UA) Negative mg/dL (NEG) Urine Ketones (Stick) 15 mg/dL (NEG) Urine Blood Negative (NEG) Urine Nitrite Negative (NEG) Urine Bilirubin Negative (NEG) Urine Urobilinogen Dipstick 0.2 mg/dL (0.2 mg/dL) Urine Leukocyte Esterase Small (NEG) Urine RBC Occ /HPF (0-2) Urine WBC 1-4 /HPF (0-4) Urine Squamous Epithelial Cells Occ /LPF Urine Amorphous Sediment Present /HPF Urine Bacteria Few /HPF (0-FEW) Urine Mucus Slight /LPF Creatine Kinase 41 U/L (39-308) Vitamin B12 Level 1152 pg/mL (247-911) Thyroid Stimulating Hormone (TSH) 1.831 uIU/mL (0.358-3.74) Medications Current Medications Gadobutrol (Gadavist) 10 mmol 1X ONCE IV Last administered on 09/03/18at 15:35 ; Start 09/03/18 at 15:15; Stop 09/03/18 at 15:16; Status DC Aspirin (Ecotrin) 81 mg DAILYWBKFT PO Last administered on 09/04/18at 07:52; Start 09/03/18 at 16:30 Docusate Sodium (Colace) 100 mg PRN DAILY PRN PO HARD STOOLS; Start 09/03/18 at 15:30 Tamsulosin HCl (Flomax) 0.4 mg BID PO Last administered on 09/04/18at 07:54; Start 09/03/18 at 21:00 Non-Formulary Medication (Amlodipine/ Valsartan (Exforge 10-320 Mg Tablet)) 1 tab DAILY PO ; Start 09/04/18 at 09:00; Status UNV Metoprolol Succinate (Toprol Xl) 50 mg DAILY PO Last administered on 09/04/18at 07:54; Start 09/03/18 at 16:30 Polyethylene Glycol (miraLAX PACKET) 17 gm PRN DAILY PRN PO CONSTIPATION 2ND CHOICE; Start 09/04/18 at 09:00 Atorvastatin Calcium (Lipitor) 40 mg QHS PO Last administered on 09/03/18at 21: 01; Start 09/03/18 at 21:00 Oxycodone/ Acetaminophen (Percocet 5/325) 1 tab PRN Q4HRS PRN PO PAIN; Start at 15:30; Stop 09/03/18 at 17:31; Status DC Amlodipine Besylate (Norvasc) 10 mg DAILY PO Last administered on 09/04/18at 07: 53; Start 09/03/18 at 16:30 Losartan Potassium (Cozaar) 100 mg DAILY PO Last administered on 09/04/18at 08: 18; Start 09/03/18 at 16:30 Oxycodone/ Acetaminophen (Percocet 5/325) 1 tab PRN Q6HRS PRN PO MODERATE PAIN Last administered on 09/04/18at 11:07; Start 09/03/18 at 17:30; Stop 09/04/18 at 13:35; Status DC Ciprofloxacin (Cipro) 500 mg BID PO Last administered on 09/04/18at 07:53; Start 09/03/18 at 21:00 Oxycodone/ Acetaminophen (Percocet 5/325) 2 tab PRN Q6HRS PRN PO SEVERE PAIN; Start 09/03/18 at 17:45 Acetaminophen (Tylenol) 650 mg PRN Q4HRS PRN PO MILD PAIN Last administered on 09/03/18at 21:01; Start 09/03/18 at 18:45 Enoxaparin Sodium (Lovenox 120mg Syringe) 120 mg Q12HR SQ Last administered on 09/04/18at 07:55; Start 09/04/18 at 09:00 Methylprednisolone (Medrol) 8 mg BID PO Last administered on 09/04/18at 11:06; Start 09/04/18 at 10:00; Stop 09/04/18 at 13:28; Status DC Methylprednisolone (Medrol) 4 mg BIDPCLD PO ; Start 09/04/18 at 12:30; Stop at 13:28; Status DC Methylprednisolone (Medrol) 4 mg TIDPC PO ; Start 09/05/18 at 08:30; Stop at 08:30; Status DC Methylprednisolone (Medrol) 8 mg QHS PO ; Start 09/05/18 at 21:00; Stop at 21:00; Status DC Methylprednisolone (Medrol) 4 mg QIDAFTMEAL PO ; Start 09/06/18 at 09:00; Stop 09/06/18 at 09:00; Status DC Methylprednisolone (Medrol) 4 mg TID PO ; Start 09/07/18 at 09:00; Stop at 09:00; Status DC Methylprednisolone (Medrol) 4 mg BID PO ; Start 09/08/18 at 09:00; Stop at 09:00; Status DC Methylprednisolone (Medrol) 4 mg DAILY PO ; Start 09/09/18 at 09:00; Stop at 09:00; Status DC Pantoprazole Sodium (Protonix) 40 mg DAILYAC PO Last administered on 09/04/18at 11:07; Start 09/04/18 at 10:00 Bisacodyl (Dulcolax Tab) 10 mg DAILY PO ; Start 09/04/18 at 10:00 Bisacodyl (Dulcolax Supp) 10 mg PRN DAILY PRN ID CONSTIPATION 1ST RECTAL CHOICE ; Start 09/04/18 at 09:30 Docusate Sodium (Enemeez) 283 mg PRN DAILY PRN ID CONSTIPATION 2ND RECTAL CHOICE; Start 09/04/18 at 09:30 Gadobutrol (Gadavist) 10 mmol 1X ONCE IV Last administered on 09/04/18at 13:26 ; Start 09/04/18 at 13:30; Stop 09/04/18 at 13:31; Status DC Methylprednisolone Sodium Succinate (SOLU-Medrol 125MG VIAL) 500 mg BID IV ; Start 09/04/18 at 21:00; Status UNV Methylprednisolone Sodium Succinate 500 mg/Sodium Chloride 100 ml @ 100 mls/hr Q12HR IV ; Start 09/04/18 at 21:00 Methylprednisolone Sodium Succinate 500 mg/Sodium Chloride 100 ml @ 100 mls/hr Q12HR IV ; Start 09/04/18 at 21:00 Oxycodone/ Acetaminophen (Percocet 5/325) 1 tab PRN Q4HRS PRN PO MODERATE PAIN ; Start 09/04/18 at 13:45; Status UNV Hydrocortisone Acetate (Anucort-Hc) 25 mg PRN DAILY PRN ID RECTAL PAIN; Start 09/04/18 at 13:30; Status UNV Active Scripts Active Cipro (Ciprofloxacin Hcl) 500 Mg Tablet 1 Tab PO BID Aspirin Ec (Aspirin) 81 Mg Tablet.dr 81 Mg PO DAILYWBKFT 30 Days Colace (Docusate Sodium) 100 Mg Capsule 100 Mg PO PRN DAILY PRN 30 Days Polyethylene Glycol 3350 17 Gm Powd.pack 17 Gm PO PRN DAILY PRN 14 Days Flomax (Tamsulosin Hcl) 0.4 Mg Cap.er.24h 0.4 Mg PO BID 30 Days Reported Percocet 5-325 Mg Tablet (Oxycodone/Acetaminophen) 1 Each Tablet 1-2 Tab PO Q4-6HRS Exforge 10-320 Mg Tablet (Amlodipine/Valsartan) 1 Each Tablet 1 Tab PO DAILY Crestor (Rosuvastatin Calcium) 10 Mg Tablet 1 Tab PO DAILY Toprol Xl (Metoprolol Succinate) 50 Mg Tab.er.24h 1 Tab PO DAILY Vitals/I & O Vital Sign - Last 24 Hours 09/03/18 09/03/18 09/03/18 09/03/18 14:00 16:30 16:30 16:30 Temp 98.1 98.1 Pulse 86 86 86 86 Resp 18 B/P (MAP) 159/89 (112) 159/89 159/89 159/89 Pulse Ox 96 O2 Delivery Room Air 09/03/18 09/03/18 09/03/18 09/03/18 17:00 19:30 20:00 23:43 Temp 98.2 98.9 98.2 98.9 Pulse 99 93 Resp 20 18 B/P (MAP) 146/83 (104) 142/75 (97) Pulse Ox 93 93 O2 Delivery Room Air Room Air Room Air Room Air 09/04/18 09/04/18 09/04/18 09/04/18 00:01 01:01 03:13 06:27 Temp 98.8 98.8 Pulse 67 Resp 18 18 18 18 B/P (MAP) 115/66 (82) Pulse Ox 93 O2 Delivery Room Air Room Air 09/04/18 09/04/18 09/04/18 09/04/18 07:00 07:27 07:53 07:54 Temp 98.2 98.2 Pulse 45 67 67 Resp 18 B/P (MAP) 138/71 (93) 115/66 115/66 Pulse Ox 92 O2 Delivery Room Air Room Air 09/04/18 09/04/18 09/04/18 08:18 11:00 11:07 Temp 98.0 98.0 Pulse 79 52 Resp 18 B/P (MAP) 138/71 125/80 (95) Pulse Ox 91 O2 Delivery Room Air Room Air Intake and Output 09/03/18 09/03/18 09/04/18 15:00 23:00 07:00 Intake Total 480 ml Output Total 200 ml 2310 ml Balance -200 ml -1830 ml DAVINA SANCHEZ APRN Sep 04, 2018 13:45
--- NOTE | 2018-09-04 13:52 | PDOC ---
PROGRESS NOTES Chief Complaint Chief Complaint Transverse myelitis- See MRI results 09/03 Cauda Equina Syndrome Bilateral LE weakness S/p laminectomy (06/2018) L3-L5 Recent admission for UTI/C.Diff (07/2018) Neurogenic bladder- requiring straight cath x2 months Hyperlipidemia Essential hypertension History of Present Illness History of Present Illness Pt was seen and examined this morning Discussed with pt and family the circumstances leading to their admission Laminectomy in Jun 2018 led to neurogenic bladder, admission in 07/2018 for UTI, C.Diff, now Cauda Equina Syndrome and transverse myelitis Difficulty ambulating at home to the point that pt could not walk with his walker anymore Pt and family were very pleasant upon exam Discussed with RN and subspecialist Vitals Vitals Vital Signs Date Time Temp Pulse Resp B/P (MAP) Pulse Ox O2 Delivery O2 Flow Rate FiO2 09/04/18 11:07 Room Air 09/04/18 11:00 98.0 52 18 125/80 (95) 91 98.0 Physical Exam General: Alert, Oriented X3, Cooperative, No acute distress Heart: Regular rate, No murmurs Lungs: Clear Abdomen: Normal bowel sounds, Soft, No tenderness Extremities: No cyanosis, Other (decreased muscle strength in B/L LEs, B/L LE edema up to distal thigh) Labs LABS Laboratory Tests Test 09/03/18 16:45 09/03/18 19:18 09/04/18 03:35 White Blood Count 10.0 x10^3/uL (4.0-11.0) 10.2 x10^3/uL (4.0-11.0) Red Blood Count 4.85 x10^6/uL (4.30-5.70) 4.35 x10^6/uL (4.30-5.70) Hemoglobin 14.5 g/dL (13.0-17.5) 13.0 g/dL (13.0-17.5) Hematocrit 43.6 % (39.0-53.0) 39.0 % (39.0-53.0) Mean Corpuscular Volume 90 fL (79-100) 90 fL (79-100) Mean Corpuscular Hemoglobin 30 pg (25-35) 30 pg (25-35) Mean Corpuscular Hemoglobin Concent 33 g/dL (31-37) 33 g/dL (31-37) Red Cell Distribution Width 14.0 % (11.5-14.5) 14.1 % (11.5-14.5) Platelet Count 212 x10^3/uL (140-400) 195 x10^3/uL (140-400) Neutrophils (%) (Auto) 80 % (31-73) 75 % (31-73) Lymphocytes (%) (Auto) 10 % (24-48) 13 % (24-48) Monocytes (%) (Auto) 7 % (0-9) 9 % (0-9) Eosinophils (%) (Auto) 2 % (0-3) 2 % (0-3) Basophils (%) (Auto) 1 % (0-3) 1 % (0-3) Neutrophils # (Auto) 8.0 x10^3uL (1.8-7.7) 7.7 x10^3uL (1.8-7.7) Lymphocytes # (Auto) 1.0 x10^3/uL (1.0-4.8) 1.3 x10^3/uL (1.0-4.8) Monocytes # (Auto) 0.7 x10^3/uL (0.0-1.1) 0.9 x10^3/uL (0.0-1.1) Eosinophils # (Auto) 0.2 x10^3/uL (0.0-0.7) 0.2 x10^3/uL (0.0-0.7) Basophils # (Auto) 0.1 x10^3/uL (0.0-0.2) 0.1 x10^3/uL (0.0-0.2) Sodium Level 142 mmol/L (136-145) 141 mmol/L (136-145) Potassium Level 3.9 mmol/L (3.5-5.1) 3.5 mmol/L (3.5-5.1) Chloride Level 104 mmol/L (98-107) 106 mmol/L (98-107) Carbon Dioxide Level 29 mmol/L (21-32) 26 mmol/L (21-32) Anion Gap 9 (6-14) 9 (6-14) Blood Urea Nitrogen 15 mg/dL (8-26) 15 mg/dL (8-26) Creatinine 0.7 mg/dL (0.7-1.3) 0.8 mg/dL (0.7-1.3) Estimated GFR (Cockcroft-Gault) 113.2 97.0 BUN/Creatinine Ratio 21 (6-20) Glucose Level 104 mg/dL (70-99) 117 mg/dL (70-99) Calcium Level 8.5 mg/dL (8.5-10.1) 8.1 mg/dL (8.5-10.1) Total Bilirubin 0.5 mg/dL (0.2-1.0) Aspartate Amino Transf (AST/SGOT) 20 U/L (15-37) Alanine Aminotransferase (ALT/SGPT) 26 U/L (16-63) Alkaline Phosphatase 86 U/L (46-116) Total Protein 7.1 g/dL (6.4-8.2) Albumin 3.0 g/dL (3.4-5.0) Albumin/Globulin Ratio 0.7 (1.0-1.7) Urine Collection Type Unknown Urine Color Yellow Urine Clarity Clear Urine pH 6.5 Urine Specific [place] 1.020 Urine Protein Negative mg/dL (NEG-TRACE) Urine Glucose (UA) Negative mg/dL (NEG) Urine Ketones (Stick) 15 mg/dL (NEG) Urine Blood Negative (NEG) Urine Nitrite Negative (NEG) Urine Bilirubin Negative (NEG) Urine Urobilinogen Dipstick 0.2 mg/dL (0.2 mg/dL) Urine Leukocyte Esterase Small (NEG) Urine RBC Occ /HPF (0-2) Urine WBC 1-4 /HPF (0-4) Urine Squamous Epithelial Cells Occ /LPF Urine Amorphous Sediment Present /HPF Urine Bacteria Few /HPF (0-FEW) Urine Mucus Slight /LPF Creatine Kinase 41 U/L (39-308) Vitamin B12 Level 1152 pg/mL (247-911) Thyroid Stimulating Hormone (TSH) 1.831 uIU/mL (0.358-3.74) Review of Systems Review of Systems Pt reports lower extremity weakness and pain, cannot void urine spontaneously, rectal pain Pt denies CP, SOB, GUTHRIE, N/V Assessment and Plan Assessmemt and Plan Assessment: Transverse myelitis- See MRI results 09/03 Cauda Equina Syndrome Bilateral LE weakness S/p laminectomy (06/2018) L3-L5 Recent admission for UTI/C.Diff (07/2018) Neurogenic bladder- requiring straight cath x2 months Hyperlipidemia Essential hypertension Plan: Pain control- changed Percocet to q4h Hydrocortisone suppository PRN daily for rectal pain Agree with steroids for cauda equina per subspecialty MAR eval placed Home meds Frequent labs PT/OT DVT prophylaxis neurosurg consult neurology consult Dr Frias consult Will continue to follow Thank you for consulting us Comment Review of Relevant I have reviewed the following items franc (where applicable) has been applied. Labs Laboratory Tests Test 09/03/18 16:45 09/03/18 19:18 09/04/18 03:35 White Blood Count 10.0 x10^3/uL (4.0-11.0) 10.2 x10^3/uL (4.0-11.0) Red Blood Count 4.85 x10^6/uL (4.30-5.70) 4.35 x10^6/uL (4.30-5.70) Hemoglobin 14.5 g/dL (13.0-17.5) 13.0 g/dL (13.0-17.5) Hematocrit 43.6 % (39.0-53.0) 39.0 % (39.0-53.0) Mean Corpuscular Volume 90 fL (79-100) 90 fL (79-100) Mean Corpuscular Hemoglobin 30 pg (25-35) 30 pg (25-35) Mean Corpuscular Hemoglobin Concent 33 g/dL (31-37) 33 g/dL (31-37) Red Cell Distribution Width 14.0 % (11.5-14.5) 14.1 % (11.5-14.5) Platelet Count 212 x10^3/uL (140-400) 195 x10^3/uL (140-400) Neutrophils (%) (Auto) 80 % (31-73) 75 % (31-73) Lymphocytes (%) (Auto) 10 % (24-48) 13 % (24-48) Monocytes (%) (Auto) 7 % (0-9) 9 % (0-9) Eosinophils (%) (Auto) 2 % (0-3) 2 % (0-3) Basophils (%) (Auto) 1 % (0-3) 1 % (0-3) Neutrophils # (Auto) 8.0 x10^3uL (1.8-7.7) 7.7 x10^3uL (1.8-7.7) Lymphocytes # (Auto) 1.0 x10^3/uL (1.0-4.8) 1.3 x10^3/uL (1.0-4.8) Monocytes # (Auto) 0.7 x10^3/uL (0.0-1.1) 0.9 x10^3/uL (0.0-1.1) Eosinophils # (Auto) 0.2 x10^3/uL (0.0-0.7) 0.2 x10^3/uL (0.0-0.7) Basophils # (Auto) 0.1 x10^3/uL (0.0-0.2) 0.1 x10^3/uL (0.0-0.2) Sodium Level 142 mmol/L (136-145) 141 mmol/L (136-145) Potassium Level 3.9 mmol/L (3.5-5.1) 3.5 mmol/L (3.5-5.1) Chloride Level 104 mmol/L (98-107) 106 mmol/L (98-107) Carbon Dioxide Level 29 mmol/L (21-32) 26 mmol/L (21-32) Anion Gap 9 (6-14) 9 (6-14) Blood Urea Nitrogen 15 mg/dL (8-26) 15 mg/dL (8-26) Creatinine 0.7 mg/dL (0.7-1.3) 0.8 mg/dL (0.7-1.3) Estimated GFR (Cockcroft-Gault) 113.2 97.0 BUN/Creatinine Ratio 21 (6-20) Glucose Level 104 mg/dL (70-99) 117 mg/dL (70-99) Calcium Level 8.5 mg/dL (8.5-10.1) 8.1 mg/dL (8.5-10.1) Total Bilirubin 0.5 mg/dL (0.2-1.0) Aspartate Amino Transf (AST/SGOT) 20 U/L (15-37) Alanine Aminotransferase (ALT/SGPT) 26 U/L (16-63) Alkaline Phosphatase 86 U/L (46-116) Total Protein 7.1 g/dL (6.4-8.2) Albumin 3.0 g/dL (3.4-5.0) Albumin/Globulin Ratio 0.7 (1.0-1.7) Urine Collection Type Unknown Urine Color Yellow Urine Clarity Clear Urine pH 6.5 Urine Specific [place] 1.020 Urine Protein Negative mg/dL (NEG-TRACE) Urine Glucose (UA) Negative mg/dL (NEG) Urine Ketones (Stick) 15 mg/dL (NEG) Urine Blood Negative (NEG) Urine Nitrite Negative (NEG) Urine Bilirubin Negative (NEG) Urine Urobilinogen Dipstick 0.2 mg/dL (0.2 mg/dL) Urine Leukocyte Esterase Small (NEG) Urine RBC Occ /HPF (0-2) Urine WBC 1-4 /HPF (0-4) Urine Squamous Epithelial Cells Occ /LPF Urine Amorphous Sediment Present /HPF Urine Bacteria Few /HPF (0-FEW) Urine Mucus Slight /LPF Creatine Kinase 41 U/L (39-308) Vitamin B12 Level 1152 pg/mL (247-911) Thyroid Stimulating Hormone (TSH) 1.831 uIU/mL (0.358-3.74) Laboratory Tests Test 09/03/18 16:45 09/03/18 19:18 09/04/18 03:35 White Blood Count 10.0 x10^3/uL (4.0-11.0) 10.2 x10^3/uL (4.0-11.0) Red Blood Count 4.85 x10^6/uL (4.30-5.70) 4.35 x10^6/uL (4.30-5.70) Hemoglobin 14.5 g/dL (13.0-17.5) 13.0 g/dL (13.0-17.5) Hematocrit 43.6 % (39.0-53.0) 39.0 % (39.0-53.0) Mean Corpuscular Volume 90 fL (79-100) 90 fL (79-100) Mean Corpuscular Hemoglobin 30 pg (25-35) 30 pg (25-35) Mean Corpuscular Hemoglobin Concent 33 g/dL (31-37) 33 g/dL (31-37) Red Cell Distribution Width 14.0 % (11.5-14.5) 14.1 % (11.5-14.5) Platelet Count 212 x10^3/uL (140-400) 195 x10^3/uL (140-400) Neutrophils (%) (Auto) 80 % (31-73) 75 % (31-73) Lymphocytes (%) (Auto) 10 % (24-48) 13 % (24-48) Monocytes (%) (Auto) 7 % (0-9) 9 % (0-9) Eosinophils (%) (Auto) 2 % (0-3) 2 % (0-3) Basophils (%) (Auto) 1 % (0-3) 1 % (0-3) Neutrophils # (Auto) 8.0 x10^3uL (1.8-7.7) 7.7 x10^3uL (1.8-7.7) Lymphocytes # (Auto) 1.0 x10^3/uL (1.0-4.8) 1.3 x10^3/uL (1.0-4.8) Monocytes # (Auto) 0.7 x10^3/uL (0.0-1.1) 0.9 x10^3/uL (0.0-1.1) Eosinophils # (Auto) 0.2 x10^3/uL (0.0-0.7) 0.2 x10^3/uL (0.0-0.7) Basophils # (Auto) 0.1 x10^3/uL (0.0-0.2) 0.1 x10^3/uL (0.0-0.2) Sodium Level 142 mmol/L (136-145) 141 mmol/L (136-145) Potassium Level 3.9 mmol/L (3.5-5.1) 3.5 mmol/L (3.5-5.1) Chloride Level 104 mmol/L (98-107) 106 mmol/L (98-107) Carbon Dioxide Level 29 mmol/L (21-32) 26 mmol/L (21-32) Anion Gap 9 (6-14) 9 (6-14) Blood Urea Nitrogen 15 mg/dL (8-26) 15 mg/dL (8-26) Creatinine 0.7 mg/dL (0.7-1.3) 0.8 mg/dL (0.7-1.3) Estimated GFR (Cockcroft-Gault) 113.2 97.0 BUN/Creatinine Ratio 21 (6-20) Glucose Level 104 mg/dL (70-99) 117 mg/dL (70-99) Calcium Level 8.5 mg/dL (8.5-10.1) 8.1 mg/dL (8.5-10.1) Total Bilirubin 0.5 mg/dL (0.2-1.0) Aspartate Amino Transf (AST/SGOT) 20 U/L (15-37) Alanine Aminotransferase (ALT/SGPT) 26 U/L (16-63) Alkaline Phosphatase 86 U/L (46-116) Total Protein 7.1 g/dL (6.4-8.2) Albumin 3.0 g/dL (3.4-5.0) Albumin/Globulin Ratio 0.7 (1.0-1.7) Urine Collection Type Unknown Urine Color Yellow Urine Clarity Clear Urine pH 6.5 Urine Specific [place] 1.020 Urine Protein Negative mg/dL (NEG-TRACE) Urine Glucose (UA) Negative mg/dL (NEG) Urine Ketones (Stick) 15 mg/dL (NEG) Urine Blood Negative (NEG) Urine Nitrite Negative (NEG) Urine Bilirubin Negative (NEG) Urine Urobilinogen Dipstick 0.2 mg/dL (0.2 mg/dL) Urine Leukocyte Esterase Small (NEG) Urine RBC Occ /HPF (0-2) Urine WBC 1-4 /HPF (0-4) Urine Squamous Epithelial Cells Occ /LPF Urine Amorphous Sediment Present /HPF Urine Bacteria Few /HPF (0-FEW) Urine Mucus Slight /LPF Creatine Kinase 41 U/L (39-308) Vitamin B12 Level 1152 pg/mL (247-911) Thyroid Stimulating Hormone (TSH) 1.831 uIU/mL (0.358-3.74) Medications Current Medications Gadobutrol (Gadavist) 10 mmol 1X ONCE IV Last administered on 09/03/18at 15:35 ; Start 09/03/18 at 15:15; Stop 09/03/18 at 15:16; Status DC Aspirin (Ecotrin) 81 mg DAILYWBKFT PO Last administered on 09/04/18at 07:52; Start 09/03/18 at 16:30 Docusate Sodium (Colace) 100 mg PRN DAILY PRN PO HARD STOOLS; Start 09/03/18 at 15:30 Tamsulosin HCl (Flomax) 0.4 mg BID PO Last administered on 09/04/18at 07:54; Start 09/03/18 at 21:00 Non-Formulary Medication (Amlodipine/ Valsartan (Exforge 10-320 Mg Tablet)) 1 tab DAILY PO ; Start 09/04/18 at 09:00; Status UNV Metoprolol Succinate (Toprol Xl) 50 mg DAILY PO Last administered on 09/04/18at 07:54; Start 09/03/18 at 16:30 Polyethylene Glycol (miraLAX PACKET) 17 gm PRN DAILY PRN PO CONSTIPATION 2ND CHOICE; Start 09/04/18 at 09:00 Atorvastatin Calcium (Lipitor) 40 mg QHS PO Last administered on 09/03/18at 21: 01; Start 09/03/18 at 21:00 Oxycodone/ Acetaminophen (Percocet 5/325) 1 tab PRN Q4HRS PRN PO PAIN; Start at 15:30; Stop 09/03/18 at 17:31; Status DC Amlodipine Besylate (Norvasc) 10 mg DAILY PO Last administered on 09/04/18 07: 53; Start 09/03/18 at 16:30 Losartan Potassium (Cozaar) 100 mg DAILY PO Last administered on 09/04/18 08: 18; Start 09/03/18 at 16:30 Oxycodone/ Acetaminophen (Percocet 5/325) 1 tab PRN Q6HRS PRN PO MODERATE PAIN Last administered on 09/04/18at 11:07; Start 09/03/18 at 17:30 Ciprofloxacin (Cipro) 500 mg BID PO Last administered on 09/04/18 07:53; Start 09/03/18 at 21:00 Oxycodone/ Acetaminophen (Percocet 5/325) 2 tab PRN Q6HRS PRN PO SEVERE PAIN; Start 09/03/18 at 17:45 Acetaminophen (Tylenol) 650 mg PRN Q4HRS PRN PO MILD PAIN Last administered on 09/03/18at 21:01; Start 09/03/18 at 18:45 Enoxaparin Sodium (Lovenox 120mg Syringe) 120 mg Q12HR SQ Last administered on 09/04/18at 07:55; Start 09/04/18 at 09:00 Methylprednisolone (Medrol) 8 mg BID PO Last administered on 09/04/18at 11:06; Start 09/04/18 at 10:00; Stop 09/04/18 at 13:28; Status DC Methylprednisolone (Medrol) 4 mg BIDPCLD PO ; Start 09/04/18 at 12:30; Stop at 13:28; Status DC Methylprednisolone (Medrol) 4 mg TIDPC PO ; Start 09/05/18 at 08:30; Stop at 08:30; Status DC Methylprednisolone (Medrol) 8 mg QHS PO ; Start 09/05/18 at 21:00; Stop at 21:00; Status DC Methylprednisolone (Medrol) 4 mg QIDAFTMEAL PO ; Start 09/06/18 at 09:00; Stop 09/06/18 at 09:00; Status DC Methylprednisolone (Medrol) 4 mg TID PO ; Start 09/07/18 at 09:00; Stop at 09:00; Status DC Methylprednisolone (Medrol) 4 mg BID PO ; Start 09/08/18 at 09:00; Stop at 09:00; Status DC Methylprednisolone (Medrol) 4 mg DAILY PO ; Start 09/09/18 at 09:00; Stop at 09:00; Status DC Pantoprazole Sodium (Protonix) 40 mg DAILYAC PO Last administered on 09/04/18at 11:07; Start 09/04/18 at 10:00 Bisacodyl (Dulcolax Tab) 10 mg DAILY PO ; Start 09/04/18 at 10:00 Bisacodyl (Dulcolax Supp) 10 mg PRN DAILY PRN [place] CONSTIPATION 1ST RECTAL CHOICE ; Start 09/04/18 at 09:30 Docusate Sodium (Enemeez) 283 mg PRN DAILY PRN [place] CONSTIPATION 2ND RECTAL CHOICE; Start 09/04/18 at 09:30 Gadobutrol (Gadavist) 10 mmol 1X ONCE IV Last administered on 09/04/18at 13:26 ; Start 09/04/18 at 13:30; Stop 09/04/18 at 13:31; Status DC Methylprednisolone Sodium Succinate (SOLU-Medrol 125MG VIAL) 500 mg BID IV ; Start 09/04/18 at 21:00; Status UNV Methylprednisolone Sodium Succinate 500 mg/Sodium Chloride 100 ml @ 100 mls/hr Q12HR IV ; Start 09/04/18 at 21:00 Methylprednisolone Sodium Succinate 500 mg/Sodium Chloride 100 ml @ 100 mls/hr Q12HR IV ; Start 09/04/18 at 21:00 Active Scripts Active Cipro (Ciprofloxacin Hcl) 500 Mg Tablet 1 Tab PO BID Aspirin Ec (Aspirin) 81 Mg Tablet.dr 81 Mg PO DAILYWBKFT 30 Days Colace (Docusate Sodium) 100 Mg Capsule 100 Mg PO PRN DAILY PRN 30 Days Polyethylene Glycol 3350 17 Gm Powd.pack 17 Gm PO PRN DAILY PRN 14 Days Flomax (Tamsulosin Hcl) 0.4 Mg Cap.er.24h 0.4 Mg PO BID 30 Days Reported Percocet 5-325 Mg Tablet (Oxycodone/Acetaminophen) 1 Each Tablet 1-2 Tab PO Q4-6HRS Exforge 10-320 Mg Tablet (Amlodipine/Valsartan) 1 Each Tablet 1 Tab PO DAILY Crestor (Rosuvastatin Calcium) 10 Mg Tablet 1 Tab PO DAILY Toprol Xl (Metoprolol Succinate) 50 Mg Tab.er.24h 1 Tab PO DAILY Vitals/I & O Vital Sign - Last 24 Hours 09/03/18 09/03/18 09/03/18 09/03/18 14:00 16:30 16:30 16:30 Temp 98.1 98.1 Pulse 86 86 86 86 Resp 18 B/P (MAP) 159/89 (112) 159/89 159/89 159/89 Pulse Ox 96 O2 Delivery Room Air 09/03/18 09/03/18 09/03/18 09/03/18 17:00 19:30 20:00 23:43 Temp 98.2 98.9 98.2 98.9 Pulse 99 93 Resp 20 18 B/P (MAP) 146/83 (104) 142/75 (97) Pulse Ox 93 93 O2 Delivery Room Air Room Air Room Air Room Air 09/04/18 09/04/18 09/04/18 09/04/18 00:01 01:01 03:13 06:27 Temp 98.8 98.8 Pulse 67 Resp 18 18 18 18 B/P (MAP) 115/66 (82) Pulse Ox 93 O2 Delivery Room Air Room Air 09/04/18 09/04/18 09/04/18 09/04/18 07:00 07:27 07:53 07:54 Temp 98.2 98.2 Pulse 45 67 67 Resp 18 B/P (MAP) 138/71 (93) 115/66 115/66 Pulse Ox 92 O2 Delivery Room Air Room Air 09/04/18 09/04/18 09/04/18 08:18 11:00 11:07 Temp 98.0 98.0 Pulse 79 52 Resp 18 B/P (MAP) 138/71 125/80 (95) Pulse Ox 91 O2 Delivery Room Air Room Air Intake and Output 09/03/18 09/03/18 09/04/18 14:59 22:59 06:59 Intake Total 480 ml Output Total 200 ml 550 ml Balance -200 ml -70 ml TATIANA SCHAEFFER III DO Sep 04, 2018 13:52
--- NOTE | 2018-09-04 14:01 | RAD ---
EXAMINATION: Magnetic resonance imaging (MRI) of the brain and brainstem without and with contrast 09/04/2018 1:00 PM HISTORY: Transverse myelitis. Bilateral leg weakness. TECHNIQUE: Multiplanar multi-weighted MRI of the brain and brainstem was performed without and with intravenous contrast using the general brain protocol. Contrast information: 10 mL Gadolinium based contrast COMPARISON: None available. FINDINGS: The scalp and calvarium are normal. The superior sagittal sinus demonstrates normal venous flow. The corpus callosum is normal in shape and signal intensity. The posterior fossa is unremarkable. The pituitary and sella are normal. The brainstem and craniocervical junction are unremarkable. There are T2/FLAIR signal hyperintense foci in the periventricular and subcortical white matter most suggestive of mild chronic small vessel ischemic changes. Diffusion weighted images reveal no hyperintensities to suggest acute cerebral infarction. Single focus of susceptibility artifact is identified in the right frontal lobe measuring 4 mm suggestive of a microhemorrhage versus less likely a cavernoma.. The ventricles are normal in size and position without evidence of hydrocephalus. There are no areas of abnormal contrast enhancement. The paranasal sinuses are normal. The visualized portions of the mastoids are unremarkable. The orbits appear normal. Normal flow voids are demonstrated in the carotid arteries and basilar artery. IMPRESSION: 1. No evidence for acute or subacute ischemia. 2. There are T2/FLAIR signal hyperintense foci in the periventricular and subcortical white matter most suggestive of mild chronic small vessel ischemic changes. Findings are atypical for demyelinating process. No enhancing lesions are identified. Electronically signed by: Missy Lima MD (09/04/2018 1:58 PM) [id number]
--- NOTE | 2018-09-04 14:48 | PDOC2 ---
NEUROLOGY CONSULT Date of Admission Date of Admission DATE: 09/04/18 TIME: 14:17 Reason for Consult Reason for Consult: IMPRESSION: Transverse myelitis per MRI report. Worsening of LE weakness. Urinary incontinence. Fever, intermittent in the past 3 months. Recurrent UTIs in the past 3 months. HTN. HLD. Lumbar spine stenosis s/p surgery. Degenerative spine and disc diseases. DVT. Obesity. RECOMMENDATIONS/PLAN: IV Solu-Medrol 500 mg IV bid. Brain MRI w/wo contrast. LP fos CSF exam. Lab: see orders including NMO. Monitoring BP, HR, CBC, glucose level and signs of GI bleeding. Treat medical diseases. OT/PT. Discussed with his at bedside on 09/04/18. HISTORY OF THE PRESENT ILLNESS: This is a 63-year-old male patient with past medical history of Equina syndrome since 06/2018 and had surgery on or about 06/28/2018. He stated he uses Parker cath about 4 times a day since due to urinary retention and he had frequent UTIs. He stated he had fever comes and goes in the past 2 to 3 months. He stated he felt decreased sensation from his lower abdomen down to feet and weakness in LE, but unable to ambulate in the past 3 days except bed resting. Past Medical History Cardiovascular: HTN, Hyperlipidemia. Pulmonary: No pertinent hx CENTRAL NERVOUS SYSTEM: Periperal neuropathy GI: No pertinent hx Heme/Onc: No pertinent hx Hepatobiliary: No pertinent hx, Cholelithiasis Psych: No pertinent hx Rheumatologic: No pertinent hx Infectious disease: No pertinent hx Renal/: No pertinent hx Endocrine: No pertinent hx Past Surgical History Lumbar spinal stenosis, L3-L4. Lateral recess stenosis without epidural abscess , L5-S1. Lumbar laminectomy, L3-L4, L5-S1 with decompression of dura and nerve root. Cholecystectomy, Hip Replacement, Knee Replacement, Lumbar Laminectomy, oral surgery. Family History Heart Disease, Social History ALCOHOL: occasional Drugs: None ALLERGY: NKDA MEDICATIONS: Refer to MAR REVIEW OF SYSTEMS: Constitutional: Obesity.. Head: No traumatic brain or head injury. Skin: No edema, or rash. Ear: No infection. Eyes: No vision loss or color blindness. Nose: No bleeding or purulent discharges. Hearing: No hearing decrease. Neck: No injury. Cardiovascular: HTN, Hyperlipidemia. Pulmonary: No pertinent hx CENTRAL NERVOUS SYSTEM: Periperal neuropathy GI: No pertinent hx Heme/Onc: No pertinent hx Hepatobiliary: No pertinent hx, Cholelithiasis Psych: No pertinent hx Musculoskeletal: Osteoarthritis, Other Rheumatologic: No pertinent hx Infectious disease: No pertinent hx Renal/: No pertinent hx Endocrine: No pertinent hx Psychiatric: Denies drug use/abuse. Otherwise, not [id number] review of systems. PHYSICAL EXAMINATION: General appearance is in subacute distress. HEENT: Normocephalic and nontraumatic. Eyes, nose, ears, and throat are unremarkable. Neck is supple. No lymphadenopathy. No crepitus. Cardiovascular: S1, S2, regular rate and rhythm. Pulmonary: Clear to auscultation bilaterally. Abdomen: Bowel sounds are positive. Abdomen is soft, nontender, and nondistended. Extremities: Edema in LE. No restriction of range of motion NEUROLOGICAL EXAMINATION: Alert Oriented to time, place and person. PERRL. EOMI. CN: no focal findings. Muscle tone: within normal in UE, decreased in LE. Muscle strength: 5 UE, 1+ LE. DTR: 2 in UE, 0 at knee. Plantar reflex: No response bilaterally Gait: Unable to walk. Sensory exam: Decreased light touch, temperature and vibration sense below T11 or T12. No cerebellar signs elicited. F-T-N test fine. Current Medications Current Medications Current Medications Gadobutrol (Gadavist) 10 mmol 1X ONCE IV Last administered on 09/03/18at 15:35 ; Start 09/03/18 at 15:15; Stop 09/03/18 at 15:16; Status DC Aspirin (Ecotrin) 81 mg DAILYWBKFT PO Last administered on 09/04/18at 07:52; Start 09/03/18 at 16:30 Docusate Sodium (Colace) 100 mg PRN DAILY PRN PO HARD STOOLS; Start 09/03/18 at 15:30 Tamsulosin HCl (Flomax) 0.4 mg BID PO Last administered on 09/04/18at 07:54; Start 09/03/18 at 21:00 Non-Formulary Medication (Amlodipine/ Valsartan (Exforge 10-320 Mg Tablet)) 1 tab DAILY PO ; Start 09/04/18 at 09:00; Status UNV Metoprolol Succinate (Toprol Xl) 50 mg DAILY PO Last administered on 09/04/18at 07:54; Start 09/03/18 at 16:30 Polyethylene Glycol (miraLAX PACKET) 17 gm PRN DAILY PRN PO CONSTIPATION 2ND CHOICE; Start 09/04/18 at 09:00 Atorvastatin Calcium (Lipitor) 40 mg QHS PO Last administered on 09/03/18at 21: 01; Start 09/03/18 at 21:00 Oxycodone/ Acetaminophen (Percocet 5/325) 1 tab PRN Q4HRS PRN PO PAIN; Start at 15:30; Stop 09/03/18 at 17:31; Status DC Amlodipine Besylate (Norvasc) 10 mg DAILY PO Last administered on 09/04/18 07: 53; Start 09/03/18 at 16:30 Losartan Potassium (Cozaar) 100 mg DAILY PO Last administered on 09/04/18 08: 18; Start 09/03/18 at 16:30 Oxycodone/ Acetaminophen (Percocet 5/325) 1 tab PRN Q6HRS PRN PO MODERATE PAIN Last administered on 09/04/18at 11:07; Start 09/03/18 at 17:30; Stop 09/04/18 at 13:35; Status DC Ciprofloxacin (Cipro) 500 mg BID PO Last administered on 09/04/18 07:53; Start 09/03/18 at 21:00 Oxycodone/ Acetaminophen (Percocet 5/325) 2 tab PRN Q6HRS PRN PO SEVERE PAIN; Start 09/03/18 at 17:45 Acetaminophen (Tylenol) 650 mg PRN Q4HRS PRN PO MILD PAIN Last administered on 09/03/18at 21:01; Start 09/03/18 at 18:45 Enoxaparin Sodium (Lovenox 120mg Syringe) 120 mg Q12HR SQ Last administered on 09/04/18 07:55; Start 09/04/18 at 09:00 Methylprednisolone (Medrol) 8 mg BID PO Last administered on 09/04/18 11:06; Start 09/04/18 at 10:00; Stop 09/04/18 at 13:28; Status DC Methylprednisolone (Medrol) 4 mg BIDPCLD PO ; Start 09/04/18 at 12:30; Stop at 13:28; Status DC Methylprednisolone (Medrol) 4 mg TIDPC PO ; Start 09/05/18 at 08:30; Stop at 08:30; Status DC Methylprednisolone (Medrol) 8 mg QHS PO ; Start 09/05/18 at 21:00; Stop at 21:00; Status DC Methylprednisolone (Medrol) 4 mg QIDAFTMEAL PO ; Start 09/06/18 at 09:00; Stop 09/06/18 at 09:00; Status DC Methylprednisolone (Medrol) 4 mg TID PO ; Start 09/07/18 at 09:00; Stop at 09:00; Status DC Methylprednisolone (Medrol) 4 mg BID PO ; Start 09/08/18 at 09:00; Stop at 09:00; Status DC Methylprednisolone (Medrol) 4 mg DAILY PO ; Start 09/09/18 at 09:00; Stop at 09:00; Status DC Pantoprazole Sodium (Protonix) 40 mg DAILYAC PO Last administered on 09/04/18at 11:07; Start 09/04/18 at 10:00 Bisacodyl (Dulcolax Tab) 10 mg DAILY PO ; Start 09/04/18 at 10:00 Bisacodyl (Dulcolax Supp) 10 mg PRN DAILY PRN RI CONSTIPATION 1ST RECTAL CHOICE ; Start 09/04/18 at 09:30 Docusate Sodium (Enemeez) 283 mg PRN DAILY PRN RI CONSTIPATION 2ND RECTAL CHOICE; Start 09/04/18 at 09:30 Gadobutrol (Gadavist) 10 mmol 1X ONCE IV Last administered on 09/04/18at 13:26 ; Start 09/04/18 at 13:30; Stop 09/04/18 at 13:31; Status DC Methylprednisolone Sodium Succinate (SOLU-Medrol 125MG VIAL) 500 mg BID IV ; Start 09/04/18 at 21:00; Status UNV Methylprednisolone Sodium Succinate 500 mg/Sodium Chloride 100 ml @ 100 mls/hr Q12HR IV ; Start 09/04/18 at 21:00 Methylprednisolone Sodium Succinate 500 mg/Sodium Chloride 100 ml @ 100 mls/hr Q12HR IV ; Start 09/04/18 at 21:00; Status Cancel Oxycodone/ Acetaminophen (Percocet 5/325) 1 tab PRN Q4HRS PRN PO MODERATE PAIN ; Start 09/04/18 at 13:45 Hydrocortisone Acetate (Anucort-Hc) 25 mg PRN DAILY PRN RI RECTAL PAIN; Start 09/04/18 at 13:30 Active Scripts Active Cipro (Ciprofloxacin Hcl) 500 Mg Tablet 1 Tab PO BID Aspirin Ec (Aspirin) 81 Mg Tablet.dr 81 Mg PO DAILYWBKFT 30 Days Colace (Docusate Sodium) 100 Mg Capsule 100 Mg PO PRN DAILY PRN 30 Days Polyethylene Glycol 3350 17 Gm Powd.pack 17 Gm PO PRN DAILY PRN 14 Days Flomax (Tamsulosin Hcl) 0.4 Mg Cap.er.24h 0.4 Mg PO BID 30 Days Reported Percocet 5-325 Mg Tablet (Oxycodone/Acetaminophen) 1 Each Tablet 1-2 Tab PO Q4-6HRS Exforge 10-320 Mg Tablet (Amlodipine/Valsartan) 1 Each Tablet 1 Tab PO DAILY Crestor (Rosuvastatin Calcium) 10 Mg Tablet 1 Tab PO DAILY Toprol Xl (Metoprolol Succinate) 50 Mg Tab.er.24h 1 Tab PO DAILY Allergies Allergies: Allergies Coded Allergies Type Severity Reaction Last Updated Verified No Known Drug Allergies 09/06/17 No ROS Review of System The patient denies any associated fevers, chills, headache, ear pain, rhinorrhea , sore throat, stiff neck, productive cough, chest pain, shortness of breath, back or flank pain, abdominal pain, nausea, vomiting, diarrhea, constipation, dysuria, rash, numbness, weakness, tingling, incontinence, difficulty ambulating, or diaphoresis. Physical Exam Physical Exam General: Well developed, well nourished, no acute distress, well appearing HEENT: Pupils equally round and reactive to light, EOMI, no discharge, normal conjunctiva Neck: Supple, no nuchal rigidity, no JVD, trachea midline, no tenderness Cardiac: RRR, no murmurs, no gallops, no rubs Chest/Lungs: CTAB, no wheeze, no rhonchi, no crackles Abdomen: soft, non-distended, no guarding, no peritoneal signs, non-tender Back: No tenderness Extremities: no edema, pulses intact, non-tender,capillary refill <3 sec bilateral upper and lower extremities, Neuro: Alert and oriented x 4, no focal deficits, normal speech Vitals Vitals: Vital Signs Date Time Temp Pulse Resp B/P (MAP) Pulse Ox O2 Delivery O2 Flow Rate FiO2 09/04/18 11:07 Room Air 09/04/18 11:00 98.0 52 18 125/80 (95) 91 98.0 Labs Labs Laboratory Tests Test 09/03/18 16:45 09/03/18 19:18 09/04/18 03:35 White Blood Count 10.0 x10^3/uL (4.0-11.0) 10.2 x10^3/uL (4.0-11.0) Red Blood Count 4.85 x10^6/uL (4.30-5.70) 4.35 x10^6/uL (4.30-5.70) Hemoglobin 14.5 g/dL (13.0-17.5) 13.0 g/dL (13.0-17.5) Hematocrit 43.6 % (39.0-53.0) 39.0 % (39.0-53.0) Mean Corpuscular Volume 90 fL (79-100) 90 fL (79-100) Mean Corpuscular Hemoglobin 30 pg (25-35) 30 pg (25-35) Mean Corpuscular Hemoglobin Concent 33 g/dL (31-37) 33 g/dL (31-37) Red Cell Distribution Width 14.0 % (11.5-14.5) 14.1 % (11.5-14.5) Platelet Count 212 x10^3/uL (140-400) 195 x10^3/uL (140-400) Neutrophils (%) (Auto) 80 % (31-73) 75 % (31-73) Lymphocytes (%) (Auto) 10 % (24-48) 13 % (24-48) Monocytes (%) (Auto) 7 % (0-9) 9 % (0-9) Eosinophils (%) (Auto) 2 % (0-3) 2 % (0-3) Basophils (%) (Auto) 1 % (0-3) 1 % (0-3) Neutrophils # (Auto) 8.0 x10^3uL (1.8-7.7) 7.7 x10^3uL (1.8-7.7) Lymphocytes # (Auto) 1.0 x10^3/uL (1.0-4.8) 1.3 x10^3/uL (1.0-4.8) Monocytes # (Auto) 0.7 x10^3/uL (0.0-1.1) 0.9 x10^3/uL (0.0-1.1) Eosinophils # (Auto) 0.2 x10^3/uL (0.0-0.7) 0.2 x10^3/uL (0.0-0.7) Basophils # (Auto) 0.1 x10^3/uL (0.0-0.2) 0.1 x10^3/uL (0.0-0.2) Sodium Level 142 mmol/L (136-145) 141 mmol/L (136-145) Potassium Level 3.9 mmol/L (3.5-5.1) 3.5 mmol/L (3.5-5.1) Chloride Level 104 mmol/L (98-107) 106 mmol/L (98-107) Carbon Dioxide Level 29 mmol/L (21-32) 26 mmol/L (21-32) Anion Gap 9 (6-14) 9 (6-14) Blood Urea Nitrogen 15 mg/dL (8-26) 15 mg/dL (8-26) Creatinine 0.7 mg/dL (0.7-1.3) 0.8 mg/dL (0.7-1.3) Estimated GFR (Cockcroft-Gault) 113.2 97.0 BUN/Creatinine Ratio 21 (6-20) Glucose Level 104 mg/dL (70-99) 117 mg/dL (70-99) Calcium Level 8.5 mg/dL (8.5-10.1) 8.1 mg/dL (8.5-10.1) Total Bilirubin 0.5 mg/dL (0.2-1.0) Aspartate Amino Transf (AST/SGOT) 20 U/L (15-37) Alanine Aminotransferase (ALT/SGPT) 26 U/L (16-63) Alkaline Phosphatase 86 U/L (46-116) Total Protein 7.1 g/dL (6.4-8.2) Albumin 3.0 g/dL (3.4-5.0) Albumin/Globulin Ratio 0.7 (1.0-1.7) Urine Collection Type Unknown Urine Color Yellow Urine Clarity Clear Urine pH 6.5 Urine Specific Rupert 1.020 Urine Protein Negative mg/dL (NEG-TRACE) Urine Glucose (UA) Negative mg/dL (NEG) Urine Ketones (Stick) 15 mg/dL (NEG) Urine Blood Negative (NEG) Urine Nitrite Negative (NEG) Urine Bilirubin Negative (NEG) Urine Urobilinogen Dipstick 0.2 mg/dL (0.2 mg/dL) Urine Leukocyte Esterase Small (NEG) Urine RBC Occ /HPF (0-2) Urine WBC 1-4 /HPF (0-4) Urine Squamous Epithelial Cells Occ /LPF Urine Amorphous Sediment Present /HPF Urine Bacteria Few /HPF (0-FEW) Urine Mucus Slight /LPF Creatine Kinase 41 U/L (39-308) Vitamin B12 Level 1152 pg/mL (247-911) Thyroid Stimulating Hormone (TSH) 1.831 uIU/mL (0.358-3.74) Laboratory Tests Test 09/03/18 16:45 09/03/18 19:18 09/04/18 03:35 White Blood Count 10.0 x10^3/uL (4.0-11.0) 10.2 x10^3/uL (4.0-11.0) Red Blood Count 4.85 x10^6/uL (4.30-5.70) 4.35 x10^6/uL (4.30-5.70) Hemoglobin 14.5 g/dL (13.0-17.5) 13.0 g/dL (13.0-17.5) Hematocrit 43.6 % (39.0-53.0) 39.0 % (39.0-53.0) Mean Corpuscular Volume 90 fL (79-100) 90 fL (79-100) Mean Corpuscular Hemoglobin 30 pg (25-35) 30 pg (25-35) Mean Corpuscular Hemoglobin Concent 33 g/dL (31-37) 33 g/dL (31-37) Red Cell Distribution Width 14.0 % (11.5-14.5) 14.1 % (11.5-14.5) Platelet Count 212 x10^3/uL (140-400) 195 x10^3/uL (140-400) Neutrophils (%) (Auto) 80 % (31-73) 75 % (31-73) Lymphocytes (%) (Auto) 10 % (24-48) 13 % (24-48) Monocytes (%) (Auto) 7 % (0-9) 9 % (0-9) Eosinophils (%) (Auto) 2 % (0-3) 2 % (0-3) Basophils (%) (Auto) 1 % (0-3) 1 % (0-3) Neutrophils # (Auto) 8.0 x10^3uL (1.8-7.7) 7.7 x10^3uL (1.8-7.7) Lymphocytes # (Auto) 1.0 x10^3/uL (1.0-4.8) 1.3 x10^3/uL (1.0-4.8) Monocytes # (Auto) 0.7 x10^3/uL (0.0-1.1) 0.9 x10^3/uL (0.0-1.1) Eosinophils # (Auto) 0.2 x10^3/uL (0.0-0.7) 0.2 x10^3/uL (0.0-0.7) Basophils # (Auto) 0.1 x10^3/uL (0.0-0.2) 0.1 x10^3/uL (0.0-0.2) Sodium Level 142 mmol/L (136-145) 141 mmol/L (136-145) Potassium Level 3.9 mmol/L (3.5-5.1) 3.5 mmol/L (3.5-5.1) Chloride Level 104 mmol/L (98-107) 106 mmol/L (98-107) Carbon Dioxide Level 29 mmol/L (21-32) 26 mmol/L (21-32) Anion Gap 9 (6-14) 9 (6-14) Blood Urea Nitrogen 15 mg/dL (8-26) 15 mg/dL (8-26) Creatinine 0.7 mg/dL (0.7-1.3) 0.8 mg/dL (0.7-1.3) Estimated GFR (Cockcroft-Gault) 113.2 97.0 BUN/Creatinine Ratio 21 (6-20) Glucose Level 104 mg/dL (70-99) 117 mg/dL (70-99) Calcium Level 8.5 mg/dL (8.5-10.1) 8.1 mg/dL (8.5-10.1) Total Bilirubin 0.5 mg/dL (0.2-1.0) Aspartate Amino Transf (AST/SGOT) 20 U/L (15-37) Alanine Aminotransferase (ALT/SGPT) 26 U/L (16-63) Alkaline Phosphatase 86 U/L (46-116) Total Protein 7.1 g/dL (6.4-8.2) Albumin 3.0 g/dL (3.4-5.0) Albumin/Globulin Ratio 0.7 (1.0-1.7) Urine Collection Type Unknown Urine Color Yellow Urine Clarity Clear Urine pH 6.5 Urine Specific Rupert 1.020 Urine Protein Negative mg/dL (NEG-TRACE) Urine Glucose (UA) Negative mg/dL (NEG) Urine Ketones (Stick) 15 mg/dL (NEG) Urine Blood Negative (NEG) Urine Nitrite Negative (NEG) Urine Bilirubin Negative (NEG) Urine Urobilinogen Dipstick 0.2 mg/dL (0.2 mg/dL) Urine Leukocyte Esterase Small (NEG) Urine RBC Occ /HPF (0-2) Urine WBC 1-4 /HPF (0-4) Urine Squamous Epithelial Cells Occ /LPF Urine Amorphous Sediment Present /HPF Urine Bacteria Few /HPF (0-FEW) Urine Mucus Slight /LPF Creatine Kinase 41 U/L (39-308) Vitamin B12 Level 1152 pg/mL (247-911) Thyroid Stimulating Hormone (TSH) 1.831 uIU/mL (0.358-3.74) IVETTE REDMAN MD Sep 04, 2018 14:48
[2018-09-04 15:00] VITALS: BP 136/70
[2018-09-04 15:50] LABS: PROTHROMBIN TIME PATIENT 13.5 SEC (11.7-14.0)
[2018-09-04 19:00] VITALS: BP 153/87
[2018-09-04] MEDS ORDERED: methylPREDNISolone SOD SUCC 500 MG in IV NORMAL SALINE 100ML 100 ML IV SCH (21:00)
[2018-09-04] MEDS ORDERED: methylPREDNISolone SOD SUCC PF 125 MG/2 ML VIAL. IV SCH (21:00)
[2018-09-04] MEDS: methylPREDNISolone SOD SUCC 500 MG in IV NORMAL SALINE 100ML 100 ML IV SCH (21:00)
[2018-09-04] MEDS: LACTOBACILLUS RHAMNOSUS GG 1 CAPSULE. PO SCH (21:12)
[2018-09-04] MEDS: ATORVASTATIN CALCIUM 40 MG TABLET. PO SCH (21:12)
[2018-09-04 23:00] VITALS: BP 152/80
[2018-09-05] MEDS: oxyCODONE/APAP 5/325 1 TAB TABLET PO PRN ×2 (00:46→04:50)
--- NOTE | 2018-09-05 02:43 | CONS ---
DATE OF CONSULTATION: 09/04/2018 ATTENDING PHYSICIAN: Dr. Benitez. The patient was seen at the request of Dr. Benitez for rehab evaluation. LOCATION: Room 418. HISTORY OF PRESENT ILLNESS: This is a 63-year-old right-handed male known to me since his last hospitalization in June where he underwent lumbar decompression laminectomy at L3-L4, L5-S1 for treatment of lumbar spinal stenosis with associated loss of bowel and bladder function as well as leg pain, right greater than left side. He had improved significantly and was discharged to home and had been receiving home health therapy and being followed by Urology for neurogenic bladder and he has been on straight cath 4 times per day. The patient started having increasing weakness, especially after the therapy in the last few weeks, especially the last month and he had a fall on 08/26/2018 in the bathroom. Since then, he is having difficulty with transfers. The patient was admitted on 09/03/2018. He had MRI scan of his thoracic and lumbar spine done, which revealed areas of stenosis has been completely relieved with surgery done in June, but in the thoracic MRI scan when compared to the previous study done in June, he had evidence of cord signal alteration which extends from the conus to about T9-T10 involving central cord without any significant cord expansion. There is enhancement in the conus region. Images strongly suggested transverse myelitis, which was not seen in the studies done in June. The patient admits constipation for the last 3-4 days. He also had nonocclusive thrombus in the right posterior tibial and peroneal veins. The patient denies any significant pain. He denies any dysuria. He apparently does not have much urine output by himself other than a straight cath except one accident in the last couple of months since he was discharged to home. The patient lives with his and had a ramp for stairs. PHYSICAL EXAMINATION: Today revealed a middle-aged male. He is slightly obese, alert, oriented to time, place, person and circumstance and follows commands appropriately. He is cooperative during the examination. The patient had minimal tenderness to palpation over sacroiliac joint area, mainly on the right side. Straight leg raising test is negative bilaterally. He had decreased sensory perception over his buttocks and also right lower abdominal area and in both lower extremities. Deep tendon reflexes are absent at both knees and ankles. He had no significant muscle spasticity noted in his extremities or in his back. He had pain free range of motion of both hip and knee joints and ankle joints. He had 5/5 grade muscle strength in his upper extremities, also anterior abdominal muscles he had pretty good strength. His lower extremity muscle strength is as follows: Hip flexion adduction is 3+/5 grade; hip extension 2+/5 grade; hip abduction on the left side 2-/5 grade; on the right side 1/5 grade; knee flexion 2-/5 grade; knee extension 2/5 grade on the right side and 3/5 grade on the left side; and dorsiflexion of right foot 2/5 grade on the right side and 2-/5 grade on the left side; plantar flexion 1/5 grade on the right side and 2/5 grade on the left side. Plantar reflex is equivocal bilaterally. The patient is independent in rolling from side to side. He requires help with transfers. His skin is intact. He had a well-healed scar in his lumbar area and both knees where he had total knee arthroplasty in the past. He also had hip replacement in the past. PAST MEDICAL HISTORY: The patient with known hypertension and hyperlipidemia. ALLERGIES: He is not known allergic to any medication. ASSESSMENT: The patient with paraparesis and neurogenic bowel and bladder with radiological evidence of transverse myelitis in lower thoracic and lumbar area or spinal cord. Patient status post lumbar decompression laminectomy for lumbar spinal stenosis from degenerative disk disease and degenerative joint disease of lumbar vertebrae, for which he had surgery done in June of this year, obesity, hypertension and hyperlipidemia. RECOMMENDATIONS: To start him on Medrol Dosepak and agree with the plan for physical therapy and occupational therapy and to ask for a screen for transfer to Inpatient Rehab Unit for continued inpatient rehab program when he is medically stable. Dr. Benitez, I appreciate asking me to participate in the care of this interesting patient. I will be glad to follow him with you as needed for the rehabilitation. LAMONT BASHIR MD DR: JUNE/sen JOB#: [id number] / [id number]
[2018-09-05 03:00] VITALS: BP 138/84
[2018-09-05 04:31] LABS: BASO % 0 % (0-3); EOS % 0 % (0-3); HEMATOCRIT 42.8 % (39.0-53.0); HEMOGLOBIN 14.3 g/dL (13.0-17.5); LYMPH # 0.5 x10^3/uL (1.0-4.8); LYMPH % 5 % (24-48); MEAN CORPUSCULAR HEMOGLOBIN 30 pg (25-35); MEAN CORPUSCULAR HGB CONC 33 g/dL (31-37); MEAN CORPUSCULAR VOLUME 91 fL (79-100); MONO # 0.1 x10^3/uL (0.0-1.1); MONO % 1 % (0-9); NEUT # 9.5 x10^3uL (1.8-7.7); NEUT % 94 % (31-73); PLATELET COUNT 199 x10^3/uL (140-400); RED BLOOD COUNT 4.73 x10^6/uL (4.30-5.70); RED CELL DISTRIBUTION WIDTH 14.4 % (11.5-14.5); WHITE BLOOD COUNT 10.1 x10^3/uL (4.0-11.0)
[2018-09-05 05:02] LABS: CALCIUM 8.6 mg/dL (8.5-10.1); CREATININE 0.9 mg/dL (0.7-1.3); GFR 84.7
[2018-09-05 07:00] VITALS: BP 159/85
[2018-09-05] MEDS: amLODIPine BESYLATE 10 MG TABLET PO SCH (08:24)
[2018-09-05] MEDS: LOSARTAN POTASSIUM 50 MG TABLET. PO SCH (08:25)
[2018-09-05] MEDS: METOPROLOL SUCC 24HR ER 50 MG TAB.ER.24H. PO SCH (08:26)
[2018-09-05] MEDS: PANTOPRAZOLE 40 MG TABLET.DR. PO SCH (08:26)
[2018-09-05] MEDS: LACTOBACILLUS RHAMNOSUS GG 1 CAPSULE. PO SCH ×2 (08:26→21:01)
[2018-09-05] MEDS: CIPROFLOXACIN HCL 250 MG TABLET. PO SCH (08:27)
[2018-09-05] MEDS ORDERED: methylPREDNISolone 4 MG TABLET. PO SCH ×2 (08:30→21:00)
[2018-09-05] MEDS: BISACODYL 5 MG TABLET.DR. PO SCH (09:00)
--- NOTE | 2018-09-05 09:26 | PDOC ---
Provider Note Provider Note The fluoro guided LP was performed without difficulty utilizing a 20g spinal needle. 10cc of clear CSF was removed and sent to the lab. The patient tolerated the procedure well and left the department in stable condition. SERGIO PEÑA MD Sep 05, 2018 09:26
[2018-09-05 10:17] LABS: CSF PROTEIN 86.4 mg/dL (15.0-45.0)
[2018-09-05] MEDS: ASPIRIN ENTERIC COATED 81 MG TABLET.DR. PO SCH (10:20)
[2018-09-05] MEDS: TAMSULOSIN 0.4 MG CAP.ER.24H. PO SCH ×2 (10:20→21:01)
[2018-09-05] MEDS: methylPREDNISolone SOD SUCC 500 MG in IV NORMAL SALINE 100ML 100 ML IV SCH ×2 (10:20→21:02)
--- NOTE | 2018-09-05 10:41 | PDOC ---
PROGRESS NOTES Chief Complaint Chief Complaint Transverse myelitis- See MRI results 09/03 Cauda Equina Syndrome Bilateral LE weakness S/p laminectomy (06/2018) L3-L5 Recent admission for UTI/C.Diff (07/2018) Neurogenic bladder- requiring straight cath x2 months Hyperlipidemia Essential hypertension History of Present Illness History of Present Illness still weak, no vomiting large stool this AM, not loose , just large volume, Laminectomy in Jun 2018 led to neurogenic bladder, admission in 07/2018 for UTI, C.Diff, now Cauda Equina Syndrome and transverse myelitis Difficulty ambulating at home to the point that pt could not walk with his walker anymore Pt and family were very pleasant upon exam Discussed with RN and subspecialist Vitals Vitals Vital Signs Date Time Temp Pulse Resp B/P (MAP) Pulse Ox O2 Delivery O2 Flow Rate FiO2 09/05/18 08:26 158/85 09/05/18 08:00 Room Air 09/05/18 07:00 97.8 54 16 92 97.8 Physical Exam General: Alert, Oriented X3, Cooperative, No acute distress Heart: Regular rate, No murmurs Lungs: Clear Abdomen: Normal bowel sounds, Soft, No tenderness Extremities: No cyanosis, Other (decreased muscle strength in B/L LEs, B/L LE edema up to distal thigh) Labs LABS Laboratory Tests Test 09/04/18 15:35 09/05/18 03:15 09/05/18 09:30 Erythrocyte Sedimentation Rate 24 (0-15) Prothrombin Time 13.5 SEC (11.7-14.0) Prothromb Time International Ratio 1.1 (0.8-1.1) C-Reactive Protein, Quantitative 39.9 mg/L (0-3.3) White Blood Count 10.1 x10^3/uL (4.0-11.0) Red Blood Count 4.73 x10^6/uL (4.30-5.70) Hemoglobin 14.3 g/dL (13.0-17.5) Hematocrit 42.8 % (39.0-53.0) Mean Corpuscular Volume 91 fL (79-100) Mean Corpuscular Hemoglobin 30 pg (25-35) Mean Corpuscular Hemoglobin Concent 33 g/dL (31-37) Red Cell Distribution Width 14.4 % (11.5-14.5) Platelet Count 199 x10^3/uL (140-400) Neutrophils (%) (Auto) 94 % (31-73) Lymphocytes (%) (Auto) 5 % (24-48) Monocytes (%) (Auto) 1 % (0-9) Eosinophils (%) (Auto) 0 % (0-3) Basophils (%) (Auto) 0 % (0-3) Neutrophils # (Auto) 9.5 x10^3uL (1.8-7.7) Lymphocytes # (Auto) 0.5 x10^3/uL (1.0-4.8) Monocytes # (Auto) 0.1 x10^3/uL (0.0-1.1) Eosinophils # (Auto) 0.0 x10^3/uL (0.0-0.7) Basophils # (Auto) 0.0 x10^3/uL (0.0-0.2) Sodium Level 142 mmol/L (136-145) Potassium Level 4.0 mmol/L (3.5-5.1) Chloride Level 106 mmol/L (98-107) Carbon Dioxide Level 24 mmol/L (21-32) Anion Gap 12 (6-14) Blood Urea Nitrogen 15 mg/dL (8-26) Creatinine 0.9 mg/dL (0.7-1.3) Estimated GFR (Cockcroft-Gault) 84.7 Glucose Level 211 mg/dL (70-99) Calcium Level 8.6 mg/dL (8.5-10.1) CSF Glucose 76 mg/dL (37-70) CSF Total Protein 86.4 mg/dL (15.0-45.0) Comment Review of Relevant I have reviewed the following items franc (where applicable) has been applied. Labs Laboratory Tests Test 09/03/18 16:45 09/03/18 19:18 09/04/18 03:35 09/04/18 15:35 White Blood Count 10.0 x10^3/uL (4.0-11.0) 10.2 x10^3/uL (4.0-11.0) Red Blood Count 4.85 x10^6/uL (4.30-5.70) 4.35 x10^6/uL (4.30-5.70) Hemoglobin 14.5 g/dL (13.0-17.5) 13.0 g/dL (13.0-17.5) Hematocrit 43.6 % (39.0-53.0) 39.0 % (39.0-53.0) Mean Corpuscular Volume 90 fL (79-100) 90 fL (79-100) Mean Corpuscular Hemoglobin 30 pg (25-35) 30 pg (25-35) Mean Corpuscular Hemoglobin Concent 33 g/dL (31-37) 33 g/dL (31-37) Red Cell Distribution Width 14.0 % (11.5-14.5) 14.1 % (11.5-14.5) Platelet Count 212 x10^3/uL (140-400) 195 x10^3/uL (140-400) Neutrophils (%) (Auto) 80 % (31-73) 75 % (31-73) Lymphocytes (%) (Auto) 10 % (24-48) 13 % (24-48) Monocytes (%) (Auto) 7 % (0-9) 9 % (0-9) Eosinophils (%) (Auto) 2 % (0-3) 2 % (0-3) Basophils (%) (Auto) 1 % (0-3) 1 % (0-3) Neutrophils # (Auto) 8.0 x10^3uL (1.8-7.7) 7.7 x10^3uL (1.8-7.7) Lymphocytes # (Auto) 1.0 x10^3/uL (1.0-4.8) 1.3 x10^3/uL (1.0-4.8) Monocytes # (Auto) 0.7 x10^3/uL (0.0-1.1) 0.9 x10^3/uL (0.0-1.1) Eosinophils # (Auto) 0.2 x10^3/uL (0.0-0.7) 0.2 x10^3/uL (0.0-0.7) Basophils # (Auto) 0.1 x10^3/uL (0.0-0.2) 0.1 x10^3/uL (0.0-0.2) Sodium Level 142 mmol/L (136-145) 141 mmol/L (136-145) Potassium Level 3.9 mmol/L (3.5-5.1) 3.5 mmol/L (3.5-5.1) Chloride Level 104 mmol/L (98-107) 106 mmol/L (98-107) Carbon Dioxide Level 29 mmol/L (21-32) 26 mmol/L (21-32) Anion Gap 9 (6-14) 9 (6-14) Blood Urea Nitrogen 15 mg/dL (8-26) 15 mg/dL (8-26) Creatinine 0.7 mg/dL (0.7-1.3) 0.8 mg/dL (0.7-1.3) Estimated GFR (Cockcroft-Gault) 113.2 97.0 BUN/Creatinine Ratio 21 (6-20) Glucose Level 104 mg/dL (70-99) 117 mg/dL (70-99) Calcium Level 8.5 mg/dL (8.5-10.1) 8.1 mg/dL (8.5-10.1) Total Bilirubin 0.5 mg/dL (0.2-1.0) Aspartate Amino Transf (AST/SGOT) 20 U/L (15-37) Alanine Aminotransferase (ALT/SGPT) 26 U/L (16-63) Alkaline Phosphatase 86 U/L (46-116) Total Protein 7.1 g/dL (6.4-8.2) Albumin 3.0 g/dL (3.4-5.0) Albumin/Globulin Ratio 0.7 (1.0-1.7) Urine Collection Type Unknown Urine Color Yellow Urine Clarity Clear Urine pH 6.5 Urine Specific [place] 1.020 Urine Protein Negative mg/dL (NEG-TRACE) Urine Glucose (UA) Negative mg/dL (NEG) Urine Ketones (Stick) 15 mg/dL (NEG) Urine Blood Negative (NEG) Urine Nitrite Negative (NEG) Urine Bilirubin Negative (NEG) Urine Urobilinogen Dipstick 0.2 mg/dL (0.2 mg/dL) Urine Leukocyte Esterase Small (NEG) Urine RBC Occ /HPF (0-2) Urine WBC 1-4 /HPF (0-4) Urine Squamous Epithelial Cells Occ /LPF Urine Amorphous Sediment Present /HPF Urine Bacteria Few /HPF (0-FEW) Urine Mucus Slight /LPF Creatine Kinase 41 U/L (39-308) Vitamin B12 Level 1152 pg/mL (247-911) Thyroid Stimulating Hormone (TSH) 1.831 uIU/mL (0.358-3.74) Erythrocyte Sedimentation Rate 24 (0-15) Prothrombin Time 13.5 SEC (11.7-14.0) Prothromb Time International Ratio 1.1 (0.8-1.1) C-Reactive Protein, Quantitative 39.9 mg/L (0-3.3) Test 09/05/18 03:15 09/05/18 09:30 White Blood Count 10.1 x10^3/uL (4.0-11.0) Red Blood Count 4.73 x10^6/uL (4.30-5.70) Hemoglobin 14.3 g/dL (13.0-17.5) Hematocrit 42.8 % (39.0-53.0) Mean Corpuscular Volume 91 fL (79-100) Mean Corpuscular Hemoglobin 30 pg (25-35) Mean Corpuscular Hemoglobin Concent 33 g/dL (31-37) Red Cell Distribution Width 14.4 % (11.5-14.5) Platelet Count 199 x10^3/uL (140-400) Neutrophils (%) (Auto) 94 % (31-73) Lymphocytes (%) (Auto) 5 % (24-48) Monocytes (%) (Auto) 1 % (0-9) Eosinophils (%) (Auto) 0 % (0-3) Basophils (%) (Auto) 0 % (0-3) Neutrophils # (Auto) 9.5 x10^3uL (1.8-7.7) Lymphocytes # (Auto) 0.5 x10^3/uL (1.0-4.8) Monocytes # (Auto) 0.1 x10^3/uL (0.0-1.1) Eosinophils # (Auto) 0.0 x10^3/uL (0.0-0.7) Basophils # (Auto) 0.0 x10^3/uL (0.0-0.2) Sodium Level 142 mmol/L (136-145) Potassium Level 4.0 mmol/L (3.5-5.1) Chloride Level 106 mmol/L (98-107) Carbon Dioxide Level 24 mmol/L (21-32) Anion Gap 12 (6-14) Blood Urea Nitrogen 15 mg/dL (8-26) Creatinine 0.9 mg/dL (0.7-1.3) Estimated GFR (Cockcroft-Gault) 84.7 Glucose Level 211 mg/dL (70-99) Calcium Level 8.6 mg/dL (8.5-10.1) CSF Glucose 76 mg/dL (37-70) CSF Total Protein 86.4 mg/dL (15.0-45.0) Laboratory Tests Test 09/04/18 15:35 09/05/18 03:15 09/05/18 09:30 Erythrocyte Sedimentation Rate 24 (0-15) Prothrombin Time 13.5 SEC (11.7-14.0) Prothromb Time International Ratio 1.1 (0.8-1.1) C-Reactive Protein, Quantitative 39.9 mg/L (0-3.3) White Blood Count 10.1 x10^3/uL (4.0-11.0) Red Blood Count 4.73 x10^6/uL (4.30-5.70) Hemoglobin 14.3 g/dL (13.0-17.5) Hematocrit 42.8 % (39.0-53.0) Mean Corpuscular Volume 91 fL (79-100) Mean Corpuscular Hemoglobin 30 pg (25-35) Mean Corpuscular Hemoglobin Concent 33 g/dL (31-37) Red Cell Distribution Width 14.4 % (11.5-14.5) Platelet Count 199 x10^3/uL (140-400) Neutrophils (%) (Auto) 94 % (31-73) Lymphocytes (%) (Auto) 5 % (24-48) Monocytes (%) (Auto) 1 % (0-9) Eosinophils (%) (Auto) 0 % (0-3) Basophils (%) (Auto) 0 % (0-3) Neutrophils # (Auto) 9.5 x10^3uL (1.8-7.7) Lymphocytes # (Auto) 0.5 x10^3/uL (1.0-4.8) Monocytes # (Auto) 0.1 x10^3/uL (0.0-1.1) Eosinophils # (Auto) 0.0 x10^3/uL (0.0-0.7) Basophils # (Auto) 0.0 x10^3/uL (0.0-0.2) Sodium Level 142 mmol/L (136-145) Potassium Level 4.0 mmol/L (3.5-5.1) Chloride Level 106 mmol/L (98-107) Carbon Dioxide Level 24 mmol/L (21-32) Anion Gap 12 (6-14) Blood Urea Nitrogen 15 mg/dL (8-26) Creatinine 0.9 mg/dL (0.7-1.3) Estimated GFR (Cockcroft-Gault) 84.7 Glucose Level 211 mg/dL (70-99) Calcium Level 8.6 mg/dL (8.5-10.1) CSF Glucose 76 mg/dL (37-70) CSF Total Protein 86.4 mg/dL (15.0-45.0) Medications Current Medications Gadobutrol (Gadavist) 10 mmol 1X ONCE IV Last administered on 09/03/18at 15:35 ; Start 09/03/18 at 15:15; Stop 09/03/18 at 15:16; Status DC Aspirin (Ecotrin) 81 mg DAILYWBKFT PO Last administered on 09/05/18at 10:20; Start 09/03/18 at 16:30 Docusate Sodium (Colace) 100 mg PRN DAILY PRN PO HARD STOOLS; Start 09/03/18 at 15:30 Tamsulosin HCl (Flomax) 0.4 mg BID PO Last administered on 09/05/18at 10:20; Start 09/03/18 at 21:00 Non-Formulary Medication (Amlodipine/ Valsartan (Exforge 10-320 Mg Tablet)) 1 tab DAILY PO ; Start 09/04/18 at 09:00; Status UNV Metoprolol Succinate (Toprol Xl) 50 mg DAILY PO Last administered on 09/05/18at 08:26; Start 09/03/18 at 16:30 Polyethylene Glycol (miraLAX PACKET) 17 gm PRN DAILY PRN PO CONSTIPATION 2ND CHOICE; Start 09/04/18 at 09:00 Atorvastatin Calcium (Lipitor) 40 mg QHS PO Last administered on 09/04/18at 21: 12; Start 09/03/18 at 21:00 Oxycodone/ Acetaminophen (Percocet 5/325) 1 tab PRN Q4HRS PRN PO PAIN; Start at 15:30; Stop 09/03/18 at 17:31; Status DC Amlodipine Besylate (Norvasc) 10 mg DAILY PO Last administered on 09/05/18at 08: 24; Start 09/03/18 at 16:30 Losartan Potassium (Cozaar) 100 mg DAILY PO Last administered on 09/05/18at 08: 25; Start 09/03/18 at 16:30 Oxycodone/ Acetaminophen (Percocet 5/325) 1 tab PRN Q6HRS PRN PO MODERATE PAIN Last administered on 09/04/18at 11:07; Start 09/03/18 at 17:30; Stop 09/04/18 at 13:35; Status DC Ciprofloxacin (Cipro) 500 mg BID PO Last administered on 09/05/18at 08:27; Start 09/03/18 at 21:00 Oxycodone/ Acetaminophen (Percocet 5/325) 2 tab PRN Q6HRS PRN PO SEVERE PAIN; Start 09/03/18 at 17:45 Acetaminophen (Tylenol) 650 mg PRN Q4HRS PRN PO MILD PAIN Last administered on 09/03/18at 21:01; Start 09/03/18 at 18:45 Enoxaparin Sodium (Lovenox 120mg Syringe) 120 mg Q12HR SQ Last administered on 09/04/18at 07:55; Start 09/04/18 at 09:00; Stop 09/04/18 at 15:42; Status DC Methylprednisolone (Medrol) 8 mg BID PO Last administered on 09/04/18at 11:06; Start 09/04/18 at 10:00; Stop 09/04/18 at 13:28; Status DC Methylprednisolone (Medrol) 4 mg BIDPCLD PO ; Start 09/04/18 at 12:30; Stop at 13:28; Status DC Methylprednisolone (Medrol) 4 mg TIDPC PO ; Start 09/05/18 at 08:30; Stop at 08:30; Status DC Methylprednisolone (Medrol) 8 mg QHS PO ; Start 09/05/18 at 21:00; Stop at 21:00; Status DC Methylprednisolone (Medrol) 4 mg QIDAFTMEAL PO ; Start 09/06/18 at 09:00; Stop 09/06/18 at 09:00; Status DC Methylprednisolone (Medrol) 4 mg TID PO ; Start 09/07/18 at 09:00; Stop at 09:00; Status DC Methylprednisolone (Medrol) 4 mg BID PO ; Start 09/08/18 at 09:00; Stop at 09:00; Status DC Methylprednisolone (Medrol) 4 mg DAILY PO ; Start 09/09/18 at 09:00; Stop at 09:00; Status DC Pantoprazole Sodium (Protonix) 40 mg DAILYAC PO Last administered on 09/05/18at 08:26; Start 09/04/18 at 10:00 Bisacodyl (Dulcolax Tab) 10 mg DAILY PO ; Start 09/04/18 at 10:00 Bisacodyl (Dulcolax Supp) [address] DA[address] CONSTIPATION 1ST RECTAL CHOICE Last administered on 09/04/18at 19:38; Start 09/04/18 at 09:30 Docusate Sodium (Enemeez) 283 [address]N DAILY PRN CT CONSTIPATION 2ND RECTAL CHOICE; Start 09/04/18 at 09:30 Gadobutrol (Gadavist) 10 mmol 1X ONCE IV Last administered on 09/04/18at 13:26 ; Start 09/04/18 at 13:30; Stop 09/04/18 at 13:31; Status DC Methylprednisolone Sodium Succinate (SOLU-Medrol 125MG VIAL) 500 mg BID IV ; Start 09/04/18 at 21:00; Status UNV Methylprednisolone Sodium Succinate 500 mg/Sodium Chloride 100 ml @ 100 mls/hr Q12HR IV Last administered on 09/05/18at 10:20; Start 09/04/18 at 21:00 Methylprednisolone Sodium Succinate 500 mg/Sodium Chloride 100 ml @ 100 mls/hr Q12HR IV ; Start 09/04/18 at 21:00; Status Cancel Oxycodone/ Acetaminophen (Percocet 5/325) 1 tab PRN Q4HRS PRN PO MODERATE PAIN Last administered on 09/05/18at 04:50; Start 09/04/18 at 13:45 Hydrocortisone Acetate (Anucort-Hc) [address] RECTAL PAIN; Start 09/04/18 at 13:30 Enoxaparin Sodium (Lovenox 120mg Syringe) 110 mg Q12HR SQ ; Start 09/04/18 at 21 :00 Lactobacillus Rhamnosus (Culturelle) 1 cap BID PO Last administered on at 08:26; Start 09/04/18 at 21:00 Active Scripts Active Cipro (Ciprofloxacin Hcl) 500 Mg Tablet 1 Tab PO BID Aspirin Ec (Aspirin) 81 Mg Tablet.dr 81 Mg PO DAILYWBKFT 30 Days Colace (Docusate Sodium) 100 Mg Capsule 100 Mg PO PRN DAILY PRN 30 Days Polyethylene Glycol 3350 17 Gm Powd.pack 17 Gm PO PRN DAILY PRN 14 Days Flomax (Tamsulosin Hcl) 0.4 Mg Cap.er.24h 0.4 Mg PO BID 30 Days Reported Percocet 5-325 Mg Tablet (Oxycodone/Acetaminophen) 1 Each Tablet 1-2 Tab PO Q4-6HRS Exforge 10-320 Mg Tablet (Amlodipine/Valsartan) 1 Each Tablet 1 Tab PO DAILY Crestor (Rosuvastatin Calcium) 10 Mg Tablet 1 Tab PO DAILY Toprol Xl (Metoprolol Succinate) 50 Mg Tab.er.24h 1 Tab PO DAILY Vitals/I & O Vital Sign - Last 24 Hours 09/04/18 09/04/18 09/04/18 09/04/18 11:00 11:07 15:00 15:51 Temp 98.0 98.1 98.0 98.1 Pulse 52 62 Resp 18 18 B/P (MAP) 125/80 (95) 136/70 (92) Pulse Ox 91 93 O2 Delivery Room Air Room Air Room Air Room Air 09/04/18 09/04/18 09/04/18 09/04/18 19:00 19:54 20:00 23:00 Temp 97.8 98.2 97.8 98.2 Pulse 40 57 Resp 18 18 18 B/P (MAP) 153/87 (109) 152/80 (104) Pulse Ox 95 93 O2 Delivery Room Air Room Air Room Air Room Air 09/05/18 09/05/18 09/05/18 09/05/18 00:46 03:00 04:50 05:50 Temp 98.2 98.2 Pulse 69 Resp 18 18 18 18 B/P (MAP) 138/84 (102) Pulse Ox 91 O2 Delivery Room Air Room Air Room Air Room Air 09/05/18 09/05/18 09/05/18 09/05/18 07:00 08:00 08:24 08:25 Temp 97.8 97.8 Pulse 54 Resp 16 B/P (MAP) 159/85 (109) 158/85 158/85 Pulse Ox 92 O2 Delivery Room Air Room Air 09/05/18 08:26 B/P (MAP) 158/85 Intake and Output 09/04/18 09/04/18 09/05/18 15:00 23:00 07:00 Intake Total 460 ml Output Total 600 ml 1100 ml Balance -140 ml -1100 ml GALILEA MOREIRA MD Sep 05, 2018 10:41
--- NOTE | 2018-09-05 10:55 | PDOC ---
PROGRESS NOTES Subjective Subjective no improvement in LE symptoms pain well controlled with medication Objective Objective Vital Signs Date Time Temp Pulse Resp B/P (MAP) Pulse Ox O2 Delivery O2 Flow Rate FiO2 09/05/18 08:26 158/85 09/05/18 08:00 Room Air 09/05/18 07:00 97.8 54 16 92 97.8 Intake and Output 09/05/18 07:00 Intake Total 460 ml Output Total 1700 ml Balance -1240 ml Intake Oral 360 ml IV Total 100 ml Output Urine Total 1700 ml Physical Exam General: Alert, Oriented X3, Cooperative Neuro: Other (no change in LE neuro exam) Plan Plan of Care continue steroids per neurology LP done, will follow MRI brain reviewed PT Comment Review of Relevant I have reviewed the following items franc (where applicable) has been applied. Labs Laboratory Tests Test 09/03/18 16:45 09/03/18 19:18 09/04/18 03:35 09/04/18 15:35 White Blood Count 10.0 x10^3/uL (4.0-11.0) 10.2 x10^3/uL (4.0-11.0) Red Blood Count 4.85 x10^6/uL (4.30-5.70) 4.35 x10^6/uL (4.30-5.70) Hemoglobin 14.5 g/dL (13.0-17.5) 13.0 g/dL (13.0-17.5) Hematocrit 43.6 % (39.0-53.0) 39.0 % (39.0-53.0) Mean Corpuscular Volume 90 fL (79-100) 90 fL (79-100) Mean Corpuscular Hemoglobin 30 pg (25-35) 30 pg (25-35) Mean Corpuscular Hemoglobin Concent 33 g/dL (31-37) 33 g/dL (31-37) Red Cell Distribution Width 14.0 % (11.5-14.5) 14.1 % (11.5-14.5) Platelet Count 212 x10^3/uL (140-400) 195 x10^3/uL (140-400) Neutrophils (%) (Auto) 80 % (31-73) 75 % (31-73) Lymphocytes (%) (Auto) 10 % (24-48) 13 % (24-48) Monocytes (%) (Auto) 7 % (0-9) 9 % (0-9) Eosinophils (%) (Auto) 2 % (0-3) 2 % (0-3) Basophils (%) (Auto) 1 % (0-3) 1 % (0-3) Neutrophils # (Auto) 8.0 x10^3uL (1.8-7.7) 7.7 x10^3uL (1.8-7.7) Lymphocytes # (Auto) 1.0 x10^3/uL (1.0-4.8) 1.3 x10^3/uL (1.0-4.8) Monocytes # (Auto) 0.7 x10^3/uL (0.0-1.1) 0.9 x10^3/uL (0.0-1.1) Eosinophils # (Auto) 0.2 x10^3/uL (0.0-0.7) 0.2 x10^3/uL (0.0-0.7) Basophils # (Auto) 0.1 x10^3/uL (0.0-0.2) 0.1 x10^3/uL (0.0-0.2) Sodium Level 142 mmol/L (136-145) 141 mmol/L (136-145) Potassium Level 3.9 mmol/L (3.5-5.1) 3.5 mmol/L (3.5-5.1) Chloride Level 104 mmol/L (98-107) 106 mmol/L (98-107) Carbon Dioxide Level 29 mmol/L (21-32) 26 mmol/L (21-32) Anion Gap 9 (6-14) 9 (6-14) Blood Urea Nitrogen 15 mg/dL (8-26) 15 mg/dL (8-26) Creatinine 0.7 mg/dL (0.7-1.3) 0.8 mg/dL (0.7-1.3) Estimated GFR (Cockcroft-Gault) 113.2 97.0 BUN/Creatinine Ratio 21 (6-20) Glucose Level 104 mg/dL (70-99) 117 mg/dL (70-99) Calcium Level 8.5 mg/dL (8.5-10.1) 8.1 mg/dL (8.5-10.1) Total Bilirubin 0.5 mg/dL (0.2-1.0) Aspartate Amino Transf (AST/SGOT) 20 U/L (15-37) Alanine Aminotransferase (ALT/SGPT) 26 U/L (16-63) Alkaline Phosphatase 86 U/L (46-116) Total Protein 7.1 g/dL (6.4-8.2) Albumin 3.0 g/dL (3.4-5.0) Albumin/Globulin Ratio 0.7 (1.0-1.7) Urine Collection Type Unknown Urine Color Yellow Urine Clarity Clear Urine pH 6.5 Urine Specific Enders 1.020 Urine Protein Negative mg/dL (NEG-TRACE) Urine Glucose (UA) Negative mg/dL (NEG) Urine Ketones (Stick) 15 mg/dL (NEG) Urine Blood Negative (NEG) Urine Nitrite Negative (NEG) Urine Bilirubin Negative (NEG) Urine Urobilinogen Dipstick 0.2 mg/dL (0.2 mg/dL) Urine Leukocyte Esterase Small (NEG) Urine RBC Occ /HPF (0-2) Urine WBC 1-4 /HPF (0-4) Urine Squamous Epithelial Cells Occ /LPF Urine Amorphous Sediment Present /HPF Urine Bacteria Few /HPF (0-FEW) Urine Mucus Slight /LPF Creatine Kinase 41 U/L (39-308) Vitamin B12 Level 1152 pg/mL (247-911) Thyroid Stimulating Hormone (TSH) 1.831 uIU/mL (0.358-3.74) Erythrocyte Sedimentation Rate 24 (0-15) Prothrombin Time 13.5 SEC (11.7-14.0) Prothromb Time International Ratio 1.1 (0.8-1.1) C-Reactive Protein, Quantitative 39.9 mg/L (0-3.3) Test 09/05/18 03:15 09/05/18 09:30 White Blood Count 10.1 x10^3/uL (4.0-11.0) Red Blood Count 4.73 x10^6/uL (4.30-5.70) Hemoglobin 14.3 g/dL (13.0-17.5) Hematocrit 42.8 % (39.0-53.0) Mean Corpuscular Volume 91 fL (79-100) Mean Corpuscular Hemoglobin 30 pg (25-35) Mean Corpuscular Hemoglobin Concent 33 g/dL (31-37) Red Cell Distribution Width 14.4 % (11.5-14.5) Platelet Count 199 x10^3/uL (140-400) Neutrophils (%) (Auto) 94 % (31-73) Lymphocytes (%) (Auto) 5 % (24-48) Monocytes (%) (Auto) 1 % (0-9) Eosinophils (%) (Auto) 0 % (0-3) Basophils (%) (Auto) 0 % (0-3) Neutrophils # (Auto) 9.5 x10^3uL (1.8-7.7) Lymphocytes # (Auto) 0.5 x10^3/uL (1.0-4.8) Monocytes # (Auto) 0.1 x10^3/uL (0.0-1.1) Eosinophils # (Auto) 0.0 x10^3/uL (0.0-0.7) Basophils # (Auto) 0.0 x10^3/uL (0.0-0.2) Sodium Level 142 mmol/L (136-145) Potassium Level 4.0 mmol/L (3.5-5.1) Chloride Level 106 mmol/L (98-107) Carbon Dioxide Level 24 mmol/L (21-32) Anion Gap 12 (6-14) Blood Urea Nitrogen 15 mg/dL (8-26) Creatinine 0.9 mg/dL (0.7-1.3) Estimated GFR (Cockcroft-Gault) 84.7 Glucose Level 211 mg/dL (70-99) Calcium Level 8.6 mg/dL (8.5-10.1) CSF Glucose 76 mg/dL (37-70) CSF Total Protein 86.4 mg/dL (15.0-45.0) Laboratory Tests Test 09/04/18 15:35 09/05/18 03:15 09/05/18 09:30 Erythrocyte Sedimentation Rate 24 (0-15) Prothrombin Time 13.5 SEC (11.7-14.0) Prothromb Time International Ratio 1.1 (0.8-1.1) C-Reactive Protein, Quantitative 39.9 mg/L (0-3.3) White Blood Count 10.1 x10^3/uL (4.0-11.0) Red Blood Count 4.73 x10^6/uL (4.30-5.70) Hemoglobin 14.3 g/dL (13.0-17.5) Hematocrit 42.8 % (39.0-53.0) Mean Corpuscular Volume 91 fL (79-100) Mean Corpuscular Hemoglobin 30 pg (25-35) Mean Corpuscular Hemoglobin Concent 33 g/dL (31-37) Red Cell Distribution Width 14.4 % (11.5-14.5) Platelet Count 199 x10^3/uL (140-400) Neutrophils (%) (Auto) 94 % (31-73) Lymphocytes (%) (Auto) 5 % (24-48) Monocytes (%) (Auto) 1 % (0-9) Eosinophils (%) (Auto) 0 % (0-3) Basophils (%) (Auto) 0 % (0-3) Neutrophils # (Auto) 9.5 x10^3uL (1.8-7.7) Lymphocytes # (Auto) 0.5 x10^3/uL (1.0-4.8) Monocytes # (Auto) 0.1 x10^3/uL (0.0-1.1) Eosinophils # (Auto) 0.0 x10^3/uL (0.0-0.7) Basophils # (Auto) 0.0 x10^3/uL (0.0-0.2) Sodium Level 142 mmol/L (136-145) Potassium Level 4.0 mmol/L (3.5-5.1) Chloride Level 106 mmol/L (98-107) Carbon Dioxide Level 24 mmol/L (21-32) Anion Gap 12 (6-14) Blood Urea Nitrogen 15 mg/dL (8-26) Creatinine 0.9 mg/dL (0.7-1.3) Estimated GFR (Cockcroft-Gault) 84.7 Glucose Level 211 mg/dL (70-99) Calcium Level 8.6 mg/dL (8.5-10.1) CSF Glucose 76 mg/dL (37-70) CSF Total Protein 86.4 mg/dL (15.0-45.0) Medications Current Medications Gadobutrol (Gadavist) 10 mmol 1X ONCE IV Last administered on 09/03/18at 15:35 ; Start 09/03/18 at 15:15; Stop 09/03/18 at 15:16; Status DC Aspirin (Ecotrin) 81 mg DAILYWBKFT PO Last administered on 09/05/18at 10:20; Start 09/03/18 at 16:30 Docusate Sodium (Colace) 100 mg PRN DAILY PRN PO HARD STOOLS; Start 09/03/18 at 15:30 Tamsulosin HCl (Flomax) 0.4 mg BID PO Last administered on 09/05/18at 10:20; Start 09/03/18 at 21:00 Non-Formulary Medication (Amlodipine/ Valsartan (Exforge 10-320 Mg Tablet)) 1 tab DAILY PO ; Start 09/04/18 at 09:00; Status UNV Metoprolol Succinate (Toprol Xl) 50 mg DAILY PO Last administered on 09/05/18at 08:26; Start 09/03/18 at 16:30 Polyethylene Glycol (miraLAX PACKET) 17 gm PRN DAILY PRN PO CONSTIPATION 2ND CHOICE; Start 09/04/18 at 09:00 Atorvastatin Calcium (Lipitor) 40 mg QHS PO Last administered on 09/04/18at 21: 12; Start 09/03/18 at 21:00 Oxycodone/ Acetaminophen (Percocet 5/325) 1 tab PRN Q4HRS PRN PO PAIN; Start at 15:30; Stop 09/03/18 at 17:31; Status DC Amlodipine Besylate (Norvasc) 10 mg DAILY PO Last administered on 09/05/18 08: 24; Start 09/03/18 at 16:30 Losartan Potassium (Cozaar) 100 mg DAILY PO Last administered on 09/05/18at 08: 25; Start 09/03/18 at 16:30 Oxycodone/ Acetaminophen (Percocet 5/325) 1 tab PRN Q6HRS PRN PO MODERATE PAIN Last administered on 09/04/18at 11:07; Start 09/03/18 at 17:30; Stop 09/04/18 at 13:35; Status DC Ciprofloxacin (Cipro) 500 mg BID PO Last administered on 09/05/18at 08:27; Start 09/03/18 at 21:00 Oxycodone/ Acetaminophen (Percocet 5/325) 2 tab PRN Q6HRS PRN PO SEVERE PAIN; Start 09/03/18 at 17:45 Acetaminophen (Tylenol) 650 mg PRN Q4HRS PRN PO MILD PAIN Last administered on 09/03/18at 21:01; Start 09/03/18 at 18:45 Enoxaparin Sodium (Lovenox 120mg Syringe) 120 mg Q12HR SQ Last administered on 09/04/18at 07:55; Start 09/04/18 at 09:00; Stop 09/04/18 at 15:42; Status DC Methylprednisolone (Medrol) 8 mg BID PO Last administered on 09/04/18at 11:06; Start 09/04/18 at 10:00; Stop 09/04/18 at 13:28; Status DC Methylprednisolone (Medrol) 4 mg BIDPCLD PO ; Start 09/04/18 at 12:30; Stop at 13:28; Status DC Methylprednisolone (Medrol) 4 mg TIDPC PO ; Start 09/05/18 at 08:30; Stop at 08:30; Status DC Methylprednisolone (Medrol) 8 mg QHS PO ; Start 09/05/18 at 21:00; Stop at 21:00; Status DC Methylprednisolone (Medrol) 4 mg QIDAFTMEAL PO ; Start 09/06/18 at 09:00; Stop 09/06/18 at 09:00; Status DC Methylprednisolone (Medrol) 4 mg TID PO ; Start 09/07/18 at 09:00; Stop at 09:00; Status DC Methylprednisolone (Medrol) 4 mg BID PO ; Start 09/08/18 at 09:00; Stop at 09:00; Status DC Methylprednisolone (Medrol) 4 mg DAILY PO ; Start 09/09/18 at 09:00; Stop at 09:00; Status DC Pantoprazole Sodium (Protonix) 40 mg DAILYAC PO Last administered on 09/05/18at 08:26; Start 09/04/18 at 10:00 Bisacodyl (Dulcolax Tab) 10 mg DAILY PO ; Start 09/04/18 at 10:00 Bisacodyl (Dulcolax Supp) 10 mg PRN DAILY PRN [place] CONSTIPATION 1ST RECTAL CHOICE Last administered on 09/04/18at 19:38; Start 09/04/18 at 09:30 Docusate Sodium (Enemeez) 283 mg PRN DAILY PRN [place] CONSTIPATION 2ND RECTAL CHOICE; Start 09/04/18 at 09:30 Gadobutrol (Gadavist) 10 mmol 1X ONCE IV Last administered on 09/04/18at 13:26 ; Start 09/04/18 at 13:30; Stop 09/04/18 at 13:31; Status DC Methylprednisolone Sodium Succinate (SOLU-Medrol 125MG VIAL) 500 mg BID IV ; Start 09/04/18 at 21:00; Status UNV Methylprednisolone Sodium Succinate 500 mg/Sodium Chloride 100 ml @ 100 mls/hr Q12HR IV Last administered on 09/05/18at 10:20; Start 09/04/18 at 21:00 Methylprednisolone Sodium Succinate 500 mg/Sodium Chloride 100 ml @ 100 mls/hr Q12HR IV ; Start 09/04/18 at 21:00; Status Cancel Oxycodone/ Acetaminophen (Percocet 5/325) 1 tab PRN Q4HRS PRN PO MODERATE PAIN Last administered on 09/05/18at 04:50; Start 09/04/18 at 13:45 Hydrocortisone Acetate (Anucort-Hc) 25 mg PRN DAILY PRN [place] RECTAL PAIN; Start 09/04/18 at 13:30 Enoxaparin Sodium (Lovenox 120mg Syringe) 110 mg Q12HR SQ ; Start 09/04/18 at 21 :00 Lactobacillus Rhamnosus (Culturelle) 1 cap BID PO Last administered on at 08:26; Start 09/04/18 at 21:00 Active Scripts Active Cipro (Ciprofloxacin Hcl) 500 Mg Tablet 1 Tab PO BID Aspirin Ec (Aspirin) 81 Mg Tablet.dr 81 Mg PO DAILYWBKFT 30 Days Colace (Docusate Sodium) 100 Mg Capsule 100 Mg PO PRN DAILY PRN 30 Days Polyethylene Glycol 3350 17 Gm Powd.pack 17 Gm PO PRN DAILY PRN 14 Days Flomax (Tamsulosin Hcl) 0.4 Mg Cap.er.24h 0.4 Mg PO BID 30 Days Reported Percocet 5-325 Mg Tablet (Oxycodone/Acetaminophen) 1 Each Tablet 1-2 Tab PO Q4-6HRS Exforge 10-320 Mg Tablet (Amlodipine/Valsartan) 1 Each Tablet 1 Tab PO DAILY Crestor (Rosuvastatin Calcium) 10 Mg Tablet 1 Tab PO DAILY Toprol Xl (Metoprolol Succinate) 50 Mg Tab.er.24h 1 Tab PO DAILY Vitals/I & O Vital Sign - Last 24 Hours 09/04/18 09/04/18 09/04/18 09/04/18 11:00 11:07 15:00 15:51 Temp 98.0 98.1 98.0 98.1 Pulse 52 62 Resp 18 18 B/P (MAP) 125/80 (95) 136/70 (92) Pulse Ox 91 93 O2 Delivery Room Air Room Air Room Air Room Air 09/04/18 09/04/18 09/04/18 09/04/18 19:00 19:54 20:00 23:00 Temp 97.8 98.2 97.8 98.2 Pulse 40 57 Resp 18 18 18 B/P (MAP) 153/87 (109) 152/80 (104) Pulse Ox 95 93 O2 Delivery Room Air Room Air Room Air Room Air 09/05/18 09/05/18 09/05/18 09/05/18 00:46 03:00 04:50 05:50 Temp 98.2 98.2 Pulse 69 Resp 18 18 18 18 B/P (MAP) 138/84 (102) Pulse Ox 91 O2 Delivery Room Air Room Air Room Air Room Air 09/05/18 09/05/18 09/05/18 09/05/18 07:00 08:00 08:24 08:25 Temp 97.8 97.8 Pulse 54 Resp 16 B/P (MAP) 159/85 (109) 158/85 158/85 Pulse Ox 92 O2 Delivery Room Air Room Air 09/05/18 08:26 B/P (MAP) 158/85 Intake and Output 09/04/18 09/04/18 09/05/18 15:00 23:00 07:00 Intake Total 460 ml Output Total 600 ml 1100 ml Balance -140 ml -1100 ml DAVINA SANCHEZ APRN Sep 05, 2018 10:55
[2018-09-05 11:00] VITALS: BP 129/62
[2018-09-05 11:10] LABS: CSF CLARITY CLEAR; CSF COLOR COLORLESS
[2018-09-05 11:45] LABS: CSF WBC COUNT 13 /cmm (Not Established)
[2018-09-05 11:46] LABS: CSF MON % 98 %; CSF PMN % 2 %; CSF RBC COUNT 7 /cmm (Not Established)
--- NOTE | 2018-09-05 13:41 | PDOC ---
Provider Note Provider Note Pt seen ID Consult dictated [id number] Thank you NHAN OLSON MD Sep 05, 2018 13:41
[2018-09-05] MEDS: ANTI-COAG MONITOR BY PHARMACY. MC PRN (13:48)
--- NOTE | 2018-09-05 13:53 | RAD ---
Fluoroscopically guided lumbar puncture, 09/05/2018: History: Leg weakness, transverse myelitis Under local anesthesia, aseptic conditions and fluoroscopic guidance a lumbar puncture was performed at the mid L2 level utilizing a 20-gauge spinal needle. Good clear CSF flow was obtained. The opening pressure was measured at 20 cm of water. A total of 10 cc of CSF was removed and sent to lab for appropriate studies. The closing pressure was measured at 14 cm of water. The spinal needle was then removed and hemostasis obtained. 1.0 minutes of fluoroscopy time was utilized. One fluoroscopic spot image was recorded. The patient tolerated the procedure well and was returned to the floor in stable condition.
--- NOTE | 2018-09-05 14:59 | PDOC ---
PROGRESS NOTES Subjective Subjective He feel more weak in his lower extremities today. Objective Objective Vital Signs Date Time Temp Pulse Resp B/P (MAP) Pulse Ox O2 Delivery O2 Flow Rate FiO2 09/05/18 11:00 98.1 61 16 129/62 (84) 92 Room Air 98.1 Intake and Output 09/05/18 07:00 Intake Total 460 ml Output Total 1700 ml Balance -1240 ml Intake Oral 360 ml IV Total 100 ml Output Urine Total 1700 ml Physical Exam Physical Exam He had obviously more weakness of his lower extremities today,in that no active right hip of knee flexion,hip abduction,more weakness in other right lower extremity and also to some extent left lower extremity muscle weakness, especially in left foot. Plan Plan of Care To continue present physical and occupational therapy follow up as tolerated. Comment Review of Relevant I have reviewed the following items franc (where applicable) has been applied. Labs Laboratory Tests Test 09/03/18 16:45 09/03/18 19:18 09/04/18 03:35 09/04/18 15:35 White Blood Count 10.0 x10^3/uL (4.0-11.0) 10.2 x10^3/uL (4.0-11.0) Red Blood Count 4.85 x10^6/uL (4.30-5.70) 4.35 x10^6/uL (4.30-5.70) Hemoglobin 14.5 g/dL (13.0-17.5) 13.0 g/dL (13.0-17.5) Hematocrit 43.6 % (39.0-53.0) 39.0 % (39.0-53.0) Mean Corpuscular Volume 90 fL (79-100) 90 fL (79-100) Mean Corpuscular Hemoglobin 30 pg (25-35) 30 pg (25-35) Mean Corpuscular Hemoglobin Concent 33 g/dL (31-37) 33 g/dL (31-37) Red Cell Distribution Width 14.0 % (11.5-14.5) 14.1 % (11.5-14.5) Platelet Count 212 x10^3/uL (140-400) 195 x10^3/uL (140-400) Neutrophils (%) (Auto) 80 % (31-73) 75 % (31-73) Lymphocytes (%) (Auto) 10 % (24-48) 13 % (24-48) Monocytes (%) (Auto) 7 % (0-9) 9 % (0-9) Eosinophils (%) (Auto) 2 % (0-3) 2 % (0-3) Basophils (%) (Auto) 1 % (0-3) 1 % (0-3) Neutrophils # (Auto) 8.0 x10^3uL (1.8-7.7) 7.7 x10^3uL (1.8-7.7) Lymphocytes # (Auto) 1.0 x10^3/uL (1.0-4.8) 1.3 x10^3/uL (1.0-4.8) Monocytes # (Auto) 0.7 x10^3/uL (0.0-1.1) 0.9 x10^3/uL (0.0-1.1) Eosinophils # (Auto) 0.2 x10^3/uL (0.0-0.7) 0.2 x10^3/uL (0.0-0.7) Basophils # (Auto) 0.1 x10^3/uL (0.0-0.2) 0.1 x10^3/uL (0.0-0.2) Sodium Level 142 mmol/L (136-145) 141 mmol/L (136-145) Potassium Level 3.9 mmol/L (3.5-5.1) 3.5 mmol/L (3.5-5.1) Chloride Level 104 mmol/L (98-107) 106 mmol/L (98-107) Carbon Dioxide Level 29 mmol/L (21-32) 26 mmol/L (21-32) Anion Gap 9 (6-14) 9 (6-14) Blood Urea Nitrogen 15 mg/dL (8-26) 15 mg/dL (8-26) Creatinine 0.7 mg/dL (0.7-1.3) 0.8 mg/dL (0.7-1.3) Estimated GFR (Cockcroft-Gault) 113.2 97.0 BUN/Creatinine Ratio 21 (6-20) Glucose Level 104 mg/dL (70-99) 117 mg/dL (70-99) Calcium Level 8.5 mg/dL (8.5-10.1) 8.1 mg/dL (8.5-10.1) Total Bilirubin 0.5 mg/dL (0.2-1.0) Aspartate Amino Transf (AST/SGOT) 20 U/L (15-37) Alanine Aminotransferase (ALT/SGPT) 26 U/L (16-63) Alkaline Phosphatase 86 U/L (46-116) Total Protein 7.1 g/dL (6.4-8.2) Albumin 3.0 g/dL (3.4-5.0) Albumin/Globulin Ratio 0.7 (1.0-1.7) Urine Collection Type Unknown Urine Color Yellow Urine Clarity Clear Urine pH 6.5 Urine Specific [place] 1.020 Urine Protein Negative mg/dL (NEG-TRACE) Urine Glucose (UA) Negative mg/dL (NEG) Urine Ketones (Stick) 15 mg/dL (NEG) Urine Blood Negative (NEG) Urine Nitrite Negative (NEG) Urine Bilirubin Negative (NEG) Urine Urobilinogen Dipstick 0.2 mg/dL (0.2 mg/dL) Urine Leukocyte Esterase Small (NEG) Urine RBC Occ /HPF (0-2) Urine WBC 1-4 /HPF (0-4) Urine Squamous Epithelial Cells Occ /LPF Urine Amorphous Sediment Present /HPF Urine Bacteria Few /HPF (0-FEW) Urine Mucus Slight /LPF Creatine Kinase 41 U/L (39-308) Vitamin B12 Level 1152 pg/mL (247-911) Thyroid Stimulating Hormone (TSH) 1.831 uIU/mL (0.358-3.74) Erythrocyte Sedimentation Rate 24 (0-15) Prothrombin Time 13.5 SEC (11.7-14.0) Prothromb Time International Ratio 1.1 (0.8-1.1) C-Reactive Protein, Quantitative 39.9 mg/L (0-3.3) Test 09/05/18 03:15 09/05/18 09:30 White Blood Count 10.1 x10^3/uL (4.0-11.0) Red Blood Count 4.73 x10^6/uL (4.30-5.70) Hemoglobin 14.3 g/dL (13.0-17.5) Hematocrit 42.8 % (39.0-53.0) Mean Corpuscular Volume 91 fL (79-100) Mean Corpuscular Hemoglobin 30 pg (25-35) Mean Corpuscular Hemoglobin Concent 33 g/dL (31-37) Red Cell Distribution Width 14.4 % (11.5-14.5) Platelet Count 199 x10^3/uL (140-400) Neutrophils (%) (Auto) 94 % (31-73) Lymphocytes (%) (Auto) 5 % (24-48) Monocytes (%) (Auto) 1 % (0-9) Eosinophils (%) (Auto) 0 % (0-3) Basophils (%) (Auto) 0 % (0-3) Neutrophils # (Auto) 9.5 x10^3uL (1.8-7.7) Lymphocytes # (Auto) 0.5 x10^3/uL (1.0-4.8) Monocytes # (Auto) 0.1 x10^3/uL (0.0-1.1) Eosinophils # (Auto) 0.0 x10^3/uL (0.0-0.7) Basophils # (Auto) 0.0 x10^3/uL (0.0-0.2) Sodium Level 142 mmol/L (136-145) Potassium Level 4.0 mmol/L (3.5-5.1) Chloride Level 106 mmol/L (98-107) Carbon Dioxide Level 24 mmol/L (21-32) Anion Gap 12 (6-14) Blood Urea Nitrogen 15 mg/dL (8-26) Creatinine 0.9 mg/dL (0.7-1.3) Estimated GFR (Cockcroft-Gault) 84.7 Glucose Level 211 mg/dL (70-99) Calcium Level 8.6 mg/dL (8.5-10.1) CSF Color Colorless CSF Clarity Clear CSF WBC 13 /cmm (Not Established) CSF RBC 7 /cmm (Not Established) CSF Mononuclear WBCs % 98 % CSF Polynuclear WBCs (%) 2 % CSF Glucose 76 mg/dL (37-70) CSF Total Protein 86.4 mg/dL (15.0-45.0) Laboratory Tests Test 09/04/18 15:35 09/05/18 03:15 09/05/18 09:30 Erythrocyte Sedimentation Rate 24 (0-15) Prothrombin Time 13.5 SEC (11.7-14.0) Prothromb Time International Ratio 1.1 (0.8-1.1) C-Reactive Protein, Quantitative 39.9 mg/L (0-3.3) White Blood Count 10.1 x10^3/uL (4.0-11.0) Red Blood Count 4.73 x10^6/uL (4.30-5.70) Hemoglobin 14.3 g/dL (13.0-17.5) Hematocrit 42.8 % (39.0-53.0) Mean Corpuscular Volume 91 fL (79-100) Mean Corpuscular Hemoglobin 30 pg (25-35) Mean Corpuscular Hemoglobin Concent 33 g/dL (31-37) Red Cell Distribution Width 14.4 % (11.5-14.5) Platelet Count 199 x10^3/uL (140-400) Neutrophils (%) (Auto) 94 % (31-73) Lymphocytes (%) (Auto) 5 % (24-48) Monocytes (%) (Auto) 1 % (0-9) Eosinophils (%) (Auto) 0 % (0-3) Basophils (%) (Auto) 0 % (0-3) Neutrophils # (Auto) 9.5 x10^3uL (1.8-7.7) Lymphocytes # (Auto) 0.5 x10^3/uL (1.0-4.8) Monocytes # (Auto) 0.1 x10^3/uL (0.0-1.1) Eosinophils # (Auto) 0.0 x10^3/uL (0.0-0.7) Basophils # (Auto) 0.0 x10^3/uL (0.0-0.2) Sodium Level 142 mmol/L (136-145) Potassium Level 4.0 mmol/L (3.5-5.1) Chloride Level 106 mmol/L (98-107) Carbon Dioxide Level 24 mmol/L (21-32) Anion Gap 12 (6-14) Blood Urea Nitrogen 15 mg/dL (8-26) Creatinine 0.9 mg/dL (0.7-1.3) Estimated GFR (Cockcroft-Gault) 84.7 Glucose Level 211 mg/dL (70-99) Calcium Level 8.6 mg/dL (8.5-10.1) CSF Color Colorless CSF Clarity Clear CSF WBC 13 /cmm (Not Established) CSF RBC 7 /cmm (Not Established) CSF Mononuclear WBCs % 98 % CSF Polynuclear WBCs (%) 2 % CSF Glucose 76 mg/dL (37-70) CSF Total Protein 86.4 mg/dL (15.0-45.0) Microbiology 09/05/18 CSF Gram Stain - Final, Complete Medications Current Medications Gadobutrol (Gadavist) 10 mmol 1X ONCE IV Last administered on 09/03/18at 15:35 ; Start 09/03/18 at 15:15; Stop 09/03/18 at 15:16; Status DC Aspirin (Ecotrin) 81 mg DAILYWBKFT PO Last administered on 09/05/18 10:20; Start 09/03/18 at 16:30 Docusate Sodium (Colace) 100 mg PRN DAILY PRN PO HARD STOOLS; Start 09/03/18 at 15:30 Tamsulosin HCl (Flomax) 0.4 mg BID PO Last administered on 09/05/18at 10:20; Start 09/03/18 at 21:00 Non-Formulary Medication (Amlodipine/ Valsartan (Exforge 10-320 Mg Tablet)) 1 tab DAILY PO ; Start 09/04/18 at 09:00; Status UNV Metoprolol Succinate (Toprol Xl) 50 mg DAILY PO Last administered on 09/05/18at 08:26; Start 09/03/18 at 16:30 Polyethylene Glycol (miraLAX PACKET) 17 gm PRN DAILY PRN PO CONSTIPATION 2ND CHOICE; Start 09/04/18 at 09:00 Atorvastatin Calcium (Lipitor) 40 mg QHS PO Last administered on 09/04/18at 21: 12; Start 09/03/18 at 21:00 Oxycodone/ Acetaminophen (Percocet 5/325) 1 tab PRN Q4HRS PRN PO PAIN; Start at 15:30; Stop 09/03/18 at 17:31; Status DC Amlodipine Besylate (Norvasc) 10 mg DAILY PO Last administered on 09/05/18 08: 24; Start 09/03/18 at 16:30 Losartan Potassium (Cozaar) 100 mg DAILY PO Last administered on 09/05/18at 08: 25; Start 09/03/18 at 16:30 Oxycodone/ Acetaminophen (Percocet 5/325) 1 tab PRN Q6HRS PRN PO MODERATE PAIN Last administered on 09/04/18at 11:07; Start 09/03/18 at 17:30; Stop 09/04/18 at 13:35; Status DC Ciprofloxacin (Cipro) 500 mg BID PO Last administered on 09/05/18at 08:27; Start 09/03/18 at 21:00; Stop 09/05/18 at 13:20; Status DC Oxycodone/ Acetaminophen (Percocet 5/325) 2 tab PRN Q6HRS PRN PO SEVERE PAIN; Start 09/03/18 at 17:45 Acetaminophen (Tylenol) 650 mg PRN Q4HRS PRN PO MILD PAIN Last administered on 09/03/18at 21:01; Start 09/03/18 at 18:45 Enoxaparin Sodium (Lovenox 120mg Syringe) 120 mg Q12HR SQ Last administered on 09/04/18at 07:55; Start 09/04/18 at 09:00; Stop 09/04/18 at 15:42; Status DC Methylprednisolone (Medrol) 8 mg BID PO Last administered on 09/04/18at 11:06; Start 09/04/18 at 10:00; Stop 09/04/18 at 13:28; Status DC Methylprednisolone (Medrol) 4 mg BIDPCLD PO ; Start 09/04/18 at 12:30; Stop at 13:28; Status DC Methylprednisolone (Medrol) 4 mg TIDPC PO ; Start 09/05/18 at 08:30; Stop at 08:30; Status DC Methylprednisolone (Medrol) 8 mg QHS PO ; Start 09/05/18 at 21:00; Stop at 21:00; Status DC Methylprednisolone (Medrol) 4 mg QIDAFTMEAL PO ; Start 09/06/18 at 09:00; Stop 09/06/18 at 09:00; Status DC Methylprednisolone (Medrol) 4 mg TID PO ; Start 09/07/18 at 09:00; Stop at 09:00; Status DC Methylprednisolone (Medrol) 4 mg BID PO ; Start 09/08/18 at 09:00; Stop at 09:00; Status DC Methylprednisolone (Medrol) 4 mg DAILY PO ; Start 09/09/18 at 09:00; Stop at 09:00; Status DC Pantoprazole Sodium (Protonix) 40 mg DAILYAC PO Last administered on 09/05/18at 08:26; Start 09/04/18 at 10:00 Bisacodyl (Dulcolax Tab) 10 mg DAILY PO ; Start 09/04/18 at 10:00 Bisacodyl (Dulcolax Supp) 10 mg PRN DAILY PRN OR CONSTIPATION 1ST RECTAL CHOICE Last administered on 09/04/18at 19:38; Start 09/04/18 at 09:30 Docusate Sodium (Enemeez) 283 mg PRN DAILY PRN OR CONSTIPATION 2ND RECTAL CHOICE; Start 09/04/18 at 09:30 Gadobutrol (Gadavist) 10 mmol 1X ONCE IV Last administered on 09/04/18at 13:26 ; Start 09/04/18 at 13:30; Stop 09/04/18 at 13:31; Status DC Methylprednisolone Sodium Succinate (SOLU-Medrol 125MG VIAL) 500 mg BID IV ; Start 09/04/18 at 21:00; Status UNV Methylprednisolone Sodium Succinate 500 mg/Sodium Chloride 100 ml @ 100 mls/hr Q12HR IV Last administered on 09/05/18at 10:20; Start 09/04/18 at 21:00 Methylprednisolone Sodium Succinate 500 mg/Sodium Chloride 100 ml @ 100 mls/hr Q12HR IV ; Start 09/04/18 at 21:00; Status Cancel Oxycodone/ Acetaminophen (Percocet 5/325) 1 tab PRN Q4HRS PRN PO MODERATE PAIN Last administered on 09/05/18at 04:50; Start 09/04/18 at 13:45 Hydrocortisone Acetate (Anucort-Hc) 25 mg PRN DAILY PRN OR RECTAL PAIN; Start 09/04/18 at 13:30 Enoxaparin Sodium (Lovenox 120mg Syringe) 110 mg Q12HR SQ ; Start 09/04/18 at 21 :00 Lactobacillus Rhamnosus (Culturelle) 1 cap BID PO Last administered on at 08:26; Start 09/04/18 at 21:00 Cefepime HCl (Maxipime) 2 gm Q8HRS IVP ; Start 09/05/18 at 14:00 Vancomycin HCl (Vancomycin Oral Solution) 125 mg BID PO ; Start 09/05/18 at 21: 00 Acyclovir Sodium 750 mg/Dextrose 265 ml @ 265 mls/hr Q8HRS IV ; Start 09/05/18 at 14:00 Doxycycline Hyclate (Vibra-Tab) 100 mg BID PO ; Start 09/05/18 at 21:00 Info (Anti-Coagulation Monitoring By Pharmacy) 1 each PRN DAILY PRN MC SEE COMMENTS Last administered on 09/05/18at 13:48; Start 09/05/18 at 14:00 Active Scripts Active Cipro (Ciprofloxacin Hcl) 500 Mg Tablet 1 Tab PO BID Aspirin Ec (Aspirin) 81 Mg Tablet.dr 81 Mg PO DAILYWBKFT 30 Days Colace (Docusate Sodium) 100 Mg Capsule 100 Mg PO PRN DAILY PRN 30 Days Polyethylene Glycol 3350 17 Gm Powd.pack 17 Gm PO PRN DAILY PRN 14 Days Flomax (Tamsulosin Hcl) 0.4 Mg Cap.er.24h 0.4 Mg PO BID 30 Days Reported Percocet 5-325 Mg Tablet (Oxycodone/Acetaminophen) 1 Each Tablet 1-2 Tab PO Q4-6HRS Exforge 10-320 Mg Tablet (Amlodipine/Valsartan) 1 Each Tablet 1 Tab PO DAILY Crestor (Rosuvastatin Calcium) 10 Mg Tablet 1 Tab PO DAILY Toprol Xl (Metoprolol Succinate) 50 Mg Tab.er.24h 1 Tab PO DAILY Vitals/I & O Vital Sign - Last 24 Hours 09/04/18 09/04/18 09/04/18 09/04/18 15:00 15:51 19:00 19:54 Temp 98.1 97.8 98.1 97.8 Pulse 62 40 Resp 18 18 18 B/P (MAP) 136/70 (92) 153/87 (109) Pulse Ox 93 95 O2 Delivery Room Air Room Air Room Air Room Air 09/04/18 09/04/18 09/05/18 09/05/18 20:00 23:00 00:46 03:00 Temp 98.2 98.2 98.2 98.2 Pulse 57 69 Resp 18 18 18 B/P (MAP) 152/80 (104) 138/84 (102) Pulse Ox 93 91 O2 Delivery Room Air Room Air Room Air Room Air 09/05/18 09/05/18 09/05/18 09/05/18 04:50 05:50 07:00 08:00 Temp 97.8 97.8 Pulse 54 Resp 18 18 16 B/P (MAP) 159/85 (109) Pulse Ox 92 O2 Delivery Room Air Room Air Room Air Room Air 09/05/18 09/05/18 09/05/18 09/05/18 08:24 08:25 08:26 11:00 Temp 98.1 98.1 Pulse 61 Resp 16 B/P (MAP) 158/85 158/85 158/85 129/62 (84) Pulse Ox 92 O2 Delivery Room Air Intake and Output 09/04/18 09/04/18 09/05/18 15:00 23:00 07:00 Intake Total 460 ml Output Total 600 ml 1100 ml Balance -140 ml -1100 ml LAMONT BASHIR MD Sep 05, 2018 14:59
[2018-09-05 15:00] VITALS: BP 129/78
--- NOTE | 2018-09-05 15:10 | RAD ---
CT of the abdomen and pelvis without contrast, 09/05/2018: HISTORY: UTI, fever, neurogenic bladder Noncontrast scans were obtained as requested and compared to a study from 07/22/2018. There is minimal linear scarring or atelectasis in the right lung base. Coronary artery calcifications are present. The unopacified liver is unremarkable. The gallbladder is surgically absent. No pancreatic abnormality is seen. The spleen is of normal size. The unopacified kidneys show no evidence of obstruction. A very tiny medullary calcification is noted on the right. Mild streaky perinephric densities are unchanged and are compatible with chronic edema or scarring. There is moderate aortic calcific plaquing without evidence of aneurysm. Artifacts arising from bilateral hip prostheses degrade image quality in the lower pelvis. No abdominal or pelvic adenopathy is seen. Mild streaky edema previously seen along the anterior aspects of the iliopsoas muscles bilaterally at the upper pelvic level is no longer evident. The visualized portions of the urinary bladder are unremarkable. The bowel loops are of normal caliber. The appendix is visualized and shows no abnormality. No free fluid or free air is evident in the abdomen or pelvis. Moderate scattered degenerative changes are present in the spine. There has been a lower lumbar laminectomy. IMPRESSION: 1. Minimal unchanged streaky bilateral perinephric edema or scarring. 2. No evidence of renal obstruction. 3. No new abdominal or pelvic abnormality is detected. PQRS Compliance Statement: One or more of the following individualized dose reduction techniques were utilized for this examination: 1. Automated exposure control 2. Adjustment of the mA and/or kV according to patient size 3. Use of iterative reconstruction technique Electronically signed by: Tmo Murray MD (09/05/2018 3:07 PM) [facility]
--- NOTE | 2018-09-05 15:14 | NUR ---
SW following. Discussed with RN, pt had a procedure this morning. SW met with pt and pt's Danette at bedside this afternoon to discuss next steps and discharge planning. Pt is weaker today. Pt would like to go to an acute rehab and would like referral sent to [facility] (ph: [phone], fax: [phone]). SW contacted [facility] to ensure they took pt's insurance and check bed availability, they should have a bed available early next week. Pt's second choice is [facility]. SW will continue to follow.
[2018-09-05] MEDS: ACYCLOVIR SODIUM IV SCH ×2 (16:03→21:36)
[2018-09-05] MEDS: CEFEPIME HCL IV Push 2 GM VIAL. IVP SCH ×2 (16:03→21:36)
[2018-09-05] MEDS: DEXTROSE 5% IV SCH ×2 (16:03→21:36)
[2018-09-05 16:15] LABS: MYCOPLASMA PATIENT NEGATIVE (NEGATIVE)
--- NOTE | 2018-09-05 16:30 | PDOC ---
PROGRESS NOTES Assessment Assessment T9-10 transverse myelitis per MRI report. Worsening of LE weakness. Urinary incontinence. Fever, recurrent intermittent in the past 3 months. Recurrent UTIs in the past 3 months. HTN. HLD. Lumbar spine stenosis s/p surgery. Degenerative spine and disc diseases. DVT. Obesity. RECOMMENDATIONS/PLAN: IV Solu-Medrol 500 mg IV bid x 3 to 5 days. Plasma exchange maybe needed if not improving. Lab: N[facility], outpatient [place]. Monitoring BP, HR, CBC, glucose level and signs of GI bleeding. Treat medical diseases. Consulted ID. OT/PT. Discussed with his at bedside on 09/04/18. Brain MRI w/wo contrast: Unremarkable. CSF on 09/05/18: WBC 13, mono 98%, RBC 7. Protein 86.4, glucose 76. Gram stain: no organism seen. HISTORY OF THE PRESENT ILLNESS: This is a 63-year-old male patient with past medical history of Equina syndrome since 06/2018 and had surgery on or about 06/28/2018. He stated he uses Parker cath about 4 times a day since due to urinary retention and he had frequent UTIs. He stated he had fever comes and goes in the past 2 to 3 months. He stated he felt decreased sensation from his lower abdomen down to feet and weakness in LE, but unable to ambulate in the past 3 days except bed resting. He stated on 09/05/18 taht PT/OT may make his weakness worse due to tiredness. Past Medical History Cardiovascular: HTN, Hyperlipidemia. Pulmonary: No pertinent hx CENTRAL NERVOUS SYSTEM: Periperal neuropathy GI: No pertinent hx Heme/Onc: No pertinent hx Hepatobiliary: No pertinent hx, Cholelithiasis Psych: No pertinent hx Rheumatologic: No pertinent hx Infectious disease: No pertinent hx Renal/: No pertinent hx Endocrine: No pertinent hx Past Surgical History Lumbar spinal stenosis, L3-L4. Lateral recess stenosis without epidural abscess , L5-S1. Lumbar laminectomy, L3-L4, L5-S1 with decompression of dura and nerve root. Cholecystectomy, Hip Replacement, Knee Replacement, Lumbar Laminectomy, oral surgery. Family History Heart Disease, Social History ALCOHOL: occasional Drugs: None ALLERGY: NKDA MEDICATIONS: Refer to MAR REVIEW OF SYSTEMS: Constitutional: Obesity.. Head: No traumatic brain or head injury. Skin: No edema, or rash. Ear: No infection. Eyes: No vision loss or color blindness. Nose: No bleeding or purulent discharges. Hearing: No hearing decrease. Neck: No injury. Cardiovascular: HTN, Hyperlipidemia. Pulmonary: No pertinent hx CENTRAL NERVOUS SYSTEM: Periperal neuropathy GI: No pertinent hx Heme/Onc: No pertinent hx Hepatobiliary: No pertinent hx, Cholelithiasis Psych: No pertinent hx Musculoskeletal: Osteoarthritis, Other Rheumatologic: No pertinent hx Infectious disease: No pertinent hx Renal/: No pertinent hx Endocrine: No pertinent hx Psychiatric: Denies drug use/abuse. Otherwise, not [id number] review of systems. PHYSICAL EXAMINATION: General appearance is in subacute distress. HEENT: Normocephalic and nontraumatic. Eyes, nose, ears, and throat are unremarkable. Neck is supple. No lymphadenopathy. No crepitus. Cardiovascular: S1, S2, regular rate and rhythm. Pulmonary: Clear to auscultation bilaterally. Abdomen: Bowel sounds are positive. Abdomen is soft, nontender, and nondistended. Extremities: Edema in LE. No restriction of range of motion NEUROLOGICAL EXAMINATION: Alert Oriented to time, place and person. PERRL. EOMI. CN: no focal findings. Muscle tone: within normal in UE, decreased in LE. Muscle strength: 5 UE, 2 left LE, 1 right LE. DTR: 2 in UE, 0 at knee and ankle. LE edema noted. Plantar reflex: No response bilaterally Gait: Unable to walk. Sensory exam: Decreased light touch, temperature and vibration sense below T11 or T12. No cerebellar signs elicited. F-T-N test fine. Objective Objective Vital Signs Date Time Temp Pulse Resp B/P (MAP) Pulse Ox O2 Delivery O2 Flow Rate FiO2 09/05/18 11:00 98.1 61 16 129/62 (84) 92 Room Air 98.1 Intake and Output 09/05/18 07:00 Intake Total 460 ml Output Total 1700 ml Balance -1240 ml Intake Oral 360 ml IV Total 100 ml Output Urine Total 1700 ml Vitals Signs Vitals VS - Last 72 Hours, by Label Date Time Temp Pulse Resp B/P (MAP) Pulse Ox O2 Delivery O2 Flow Rate FiO2 09/05/18 11:00 98.1 61 16 129/62 (84) 92 Room Air 98.1 09/05/18 08:26 158/85 09/05/18 08:25 158/85 09/05/18 08:24 158/85 09/05/18 08:00 Room Air 09/05/18 07:00 97.8 54 16 159/85 (109) 92 Room Air 97.8 09/05/18 05:50 18 Room Air 09/05/18 04:50 18 Room Air 09/05/18 03:00 98.2 69 18 138/84 (102) 91 Room Air 98.2 09/05/18 00:46 18 Room Air 09/04/18 23:00 98.2 57 18 152/80 (104) 93 Room Air 98.2 09/04/18 20:00 Room Air 09/04/18 19:54 18 Room Air 09/04/18 19:00 97.8 40 18 153/87 (109) 95 Room Air 97.8 09/04/18 15:51 Room Air 09/04/18 15:00 98.1 62 18 136/70 (92) 93 Room Air 98.1 09/04/18 11:07 Room Air 09/04/18 11:00 98.0 52 18 125/80 (95) 91 Room Air 98.0 09/04/18 08:18 79 138/71 09/04/18 08:00 Room Air 09/04/18 07:54 67 115/66 09/04/18 07:53 67 115/66 09/04/18 07:27 Room Air 09/04/18 07:00 98.2 45 18 138/71 (93) 92 Room Air 98.2 Laboratory Laboratory Laboratory Tests Test 09/05/18 03:15 09/05/18 09:30 09/05/18 15:08 White Blood Count 10.1 x10^3/uL (4.0-11.0) Red Blood Count 4.73 x10^6/uL (4.30-5.70) Hemoglobin 14.3 g/dL (13.0-17.5) Hematocrit 42.8 % (39.0-53.0) Mean Corpuscular Volume 91 fL (79-100) Mean Corpuscular Hemoglobin 30 pg (25-35) Mean Corpuscular Hemoglobin Concent 33 g/dL (31-37) Red Cell Distribution Width 14.4 % (11.5-14.5) Platelet Count 199 x10^3/uL (140-400) Neutrophils (%) (Auto) 94 % (31-73) Lymphocytes (%) (Auto) 5 % (24-48) Monocytes (%) (Auto) 1 % (0-9) Eosinophils (%) (Auto) 0 % (0-3) Basophils (%) (Auto) 0 % (0-3) Neutrophils # (Auto) 9.5 x10^3uL (1.8-7.7) Lymphocytes # (Auto) 0.5 x10^3/uL (1.0-4.8) Monocytes # (Auto) 0.1 x10^3/uL (0.0-1.1) Eosinophils # (Auto) 0.0 x10^3/uL (0.0-0.7) Basophils # (Auto) 0.0 x10^3/uL (0.0-0.2) Sodium Level 142 mmol/L (136-145) Potassium Level 4.0 mmol/L (3.5-5.1) Chloride Level 106 mmol/L (98-107) Carbon Dioxide Level 24 mmol/L (21-32) Anion Gap 12 (6-14) Blood Urea Nitrogen 15 mg/dL (8-26) Creatinine 0.9 mg/dL (0.7-1.3) Estimated GFR (Cockcroft-Gault) 84.7 Glucose Level 211 mg/dL (70-99) Calcium Level 8.6 mg/dL (8.5-10.1) CSF Color Colorless CSF Clarity Clear CSF WBC 13 /cmm (Not Established) CSF RBC 7 /cmm (Not Established) CSF Mononuclear WBCs % 98 % CSF Polynuclear WBCs (%) 2 % CSF Glucose 76 mg/dL (37-70) CSF Total Protein 86.4 mg/dL (15.0-45.0) Mycoplasma Serology (LAB) Negative (NEGATIVE) Microbiology 09/05/18 CSF Gram Stain - Final, Complete Medication Medications Current Medications Acyclovir Sodium 750 mg/Dextrose 265 ml @ 265 mls/hr Q8HRS IV Last administered on 09/05/18at 16:03; Start 09/05/18 at 14:00 Cefepime HCl (Maxipime) 2 gm Q8HRS IVP Last administered on 09/05/18at 16:03; Start 09/05/18 at 14:00 Doxycycline Hyclate (Vibra-Tab) 100 mg BID PO ; Start 09/05/18 at 21:00 Enoxaparin Sodium (Lovenox 120mg Syringe) 110 mg Q12HR SQ ; Start 09/04/18 at 21 :00 Info (Anti-Coagulation Monitoring By Pharmacy) 1 each PRN DAILY PRN MC SEE COMMENTS Last administered on 09/05/18at 13:48; Start 09/05/18 at 14:00 Lactobacillus Rhamnosus (Culturelle) 1 cap BID PO Last administered on at 08:26; Start 09/04/18 at 21:00 Methylprednisolone (Medrol) 4 mg BID PO ; Start 09/08/18 at 09:00; Stop at 09:00; Status DC Methylprednisolone (Medrol) 4 mg DAILY PO ; Start 09/09/18 at 09:00; Stop at 09:00; Status DC Methylprednisolone (Medrol) 4 mg QIDAFTMEAL PO ; Start 09/06/18 at 09:00; Stop 09/06/18 at 09:00; Status DC Methylprednisolone (Medrol) 4 mg TID PO ; Start 09/07/18 at 09:00; Stop at 09:00; Status DC Methylprednisolone (Medrol) 4 mg TIDPC PO ; Start 09/05/18 at 08:30; Stop at 08:30; Status DC Methylprednisolone (Medrol) 8 mg QHS PO ; Start 09/05/18 at 21:00; Stop at 21:00; Status DC Methylprednisolone Sodium Succinate (SOLU-Medrol 125MG VIAL) 500 mg BID IV ; Start 09/04/18 at 21:00; Status UNV Methylprednisolone Sodium Succinate 500 mg/Sodium Chloride 100 ml @ 100 mls/hr Q12HR IV Last administered on 09/05/18at 10:20; Start 09/04/18 at 21:00 Methylprednisolone Sodium Succinate 500 mg/Sodium Chloride 100 ml @ 100 mls/hr Q12HR IV ; Start 09/04/18 at 21:00; Status Cancel Vancomycin HCl (Vancomycin Oral Solution) 125 mg BID PO ; Start 09/05/18 at 21: 00 Comment Review of Relevant I have reviewed the following items franc (where applicable) has been applied. IVETTE REDMAN MD Sep 05, 2018 16:30
[2018-09-05 19:20] VITALS: BP 135/73
[2018-09-05] MEDS: DOXYCYCLINE HYCLATE 100 MG TABLET PO SCH (21:01)
[2018-09-05] MEDS: VANCOMYCIN 125 MG/2.5 ML ORAL SOLUTION. PO SCH (21:01)
[2018-09-05] MEDS: ATORVASTATIN CALCIUM 40 MG TABLET. PO SCH (21:01)
[2018-09-05 23:15] VITALS: BP 121/79
--- NOTE | 2018-09-06 00:59 | CONS ---
DATE OF CONSULTATION: 09/05/2018 REFERRING PHYSICIAN: Dr. Carrasquillo. REASON FOR CONSULTATION: Recurrent fevers, recurrent UTI. HISTORY OF PRESENT ILLNESS: A 63-year-old male who underwent lumbar surgery at L3-L4 and L5-S1 for lumbar stenosis, associated with cauda equina and associated loss of bowel and bladder function with leg pain, right greater than the left, improved significantly and was discharged with physical therapy. Subsequently, in July, he developed UTI with urinary retention and self-catheterization. This was complicated with C. diff, which was treated with p.o. vancomycin and the problems resolved. Two weeks ago, he fell in the shower and started noticing increasing weakness in both the lower extremities. He was seen by his primary care physician and was told that he had UTI, was given Augmentin for 5 days. Before admission, he started having difficulty transferring from the wheelchair to the bed and also had a fever of 101 Sunday morning. He was admitted for further evaluation and treatment. He did notice change in sensation in both the lower extremities. Right leg was feeling weaker than the left. He had labs done, with normal white count, neutrophil 80%. ESR was 24. CRP was 39.9 with normal LFTs. Glucose was 104. U/A showed occasional leukocyte esterase, 1-4 wbc's. He had MRI of the thoracic and the lumbar spine, which showed new cord signal alteration involving the thoracic cord to the level of the conus from T9-T10, involving the central cord diffusely, without definite cord expansion. There is enhancement involving the conus medullaris. Findings are most suggestive of transverse myelitis. Postoperative changes are identified from laminectomy in the lower lumbar spine from L3-L5, without residual spinal canal stenosis. Moderate degenerative changes of the lumbar spine are seen, as described above. The patient also had ultrasound of the lower extremity, which showed non-occlusive thrombus in the right posterior tibial vein and peroneal vein and bilateral lower extremity edema. The patient underwent brain MRI yesterday, which showed no evidence of acute or subacute ischemia. There are T2-FLAIR signal hyperintense foci in the periventricular and subcortical white matter, most suggestive of chronic small vessel ischemic changes. Findings are atypical for demyelinating process. No enhancing lesions are identified. The patient underwent LP today, which showed WBC of 13, RBC of 7, mono of 98, polymorphonuclear cells of 2, glucose of 76 and total protein of 86.4. The patient had been started on Cipro for possible UTI on admission. This morning, the patient states he has decreased movement in the right lower extremity, still continues to have difference in sensation in both the lower extremities. He denies any fevers or chills. He does have some sinus congestion, which he attributes to allergic rhinitis and seasonal allergies which he has. No headache, no ear pain or drainage. No eye pain. No oral sores. No difficulty swallowing. No nausea, vomiting, diarrhea, abdominal pain or symptoms. The patient is undergoing self-catheterization for a couple of months per Urology for urinary retention. The patient denies any recent immunizations. Last flu shot and Pneumovax was 05/13/2018. He denies any recent procedures. He had root canal treatment and dental procedure done in 03/2018. He denies taking any new medication. Denies any recent travel. Denies any sick contact. PAST MEDICAL HISTORY: 1. Hypertension. 2. Hyperlipidemia. 3. Cauda equina, June, followed by loss of bladder and bowel function with L3-L4, L5-S1 lumbar stenosis, status post surgery. 4. Recurrent urinary tract infection. 5. Urinary retention with self-catheterization. 6. C. diff in July. 7. Treatment with Cipro and Augmentin for UTI. 8. Severe DJD with surgeries as below. PAST SURGICAL HISTORY: Bilateral hip replacement, bilateral knee replacement and lumbar surgery. SOCIAL HISTORY: He denies smoking, ETOH social. No illicit drug use. 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 , lives with . No pets. Has a daughter. REVIEW OF SYSTEMS: Negative, except for above in the HPI. CURRENT MEDICATIONS: Antibiotic ciprofloxacin. Other medications reviewed in the medication list. PHYSICAL EXAMINATION: VITAL SIGNS: Temperature 97.8, pulse 54, respiratory rate 16, blood pressure 158/85 and oxygen saturation 92% on room air. GENERAL: Alert, oriented x 3 male, in no acute distress, cooperative, pleasant. HEENT: Normocephalic, atraumatic. Anicteric. Dentition, good condition. No oral sores. No oropharyngeal exudate. No thrush. NECK: Supple. No JVD, no thyromegaly, no lymphadenopathy. LUNGS: Clear bilaterally. No wheezing. HEART: S1, S2. No gallops or murmurs. No rubs. Occasional PVCs. ABDOMEN: Soft, nontender and nondistended. No rebound or guarding. EXTREMITIES: Bilateral trace pedal edema. NEUROLOGIC: Alert and oriented x 3. Lower extremity weakness bilaterally, decreased sensation. SPINE: Back incision well healed, nontender. No surrounding redness or erythema. DERMATOLOGIC: Warm, dry. No generalized rash. PSYCHIATRIC: Cooperative, appropriate mood and affect. MUSCULOSKELETAL: No joint swelling. LABORATORY DATA: CSF WBC is 13, RBC 7, mononuclear cell 98, poly 2, glucose 76 and total proteins are 86.4. WBC 10.1, hemoglobin 14.3, hematocrit 42.8, platelets 199,000, neutrophil 94% and lymphocyte 5. ESR 24. U/A shows negative blood, negative nitrite, negative bilirubin, leukocyte esterase small and 1-4 wbc's. Chemistry: Sodium 141, potassium 3.5, chloride 106, bicarbonate 26, BUN 15, creatinine 0.8, glucose 117 and calcium 8.7. CK 41. Vitamin B12 of 1152. TSH 1.8. IMAGING DATA: Brain MRI, no evidence of acute or subacute ischemia. There is T2-FLAIR signal hyperintense foci in the periventricular and subcortical white matter, most suggestive of mild chronic small vessel ischemic changes. Findings are atypical for demyelinating process. No enhancing lesions are identified. Lower extremity ultrasound: Non-occlusive thrombus seen in the right posterior tibial vein and peroneal vein. Bilateral lower extremity edema. Lumbar and thoracic spine MRI shows new cord signal alteration involving the thoracic cord to the level of the conus from T9-T10, involving the central cord diffusely, without definite cord expansion. There is enhancing involving the conus medullaris. Findings are most suggestive of transverse myelitis. Postoperative changes are identified from laminectomy in the lower lumbar spine from L3-L5, without residual spinal canal stenosis. Moderate degenerative changes of the lumbar spine are described in the detail above. IMPRESSION: 1. 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 2. Cauda equina syndrome, status post surgery 06/2018. 3. Urinary retention, neurogenic bladder, requiring straight catheterization for 2 months. 4. Recurrent urinary tract infection, 07/2018 pansensitive Escherichia coli, treated with ciprofloxacin. 5. History of Clostridium difficile, 07/2018, treated, no recurrence. 6. Status post laminectomy, 06/30/2018, L3-L5. 7. Bilateral lower extremity weakness. 8. Hyperlipidemia. 9. Hypertension. 10. Hyperglycemia. 11. Non-occlusive thrombus, right posterior tibial and peroneal vein. RECOMMENDATIONS: 1. Discontinue ciprofloxacin. Start cefepime and doxycycline . 2. Start acyclovir ,maintain adequate fluid balance,monitor renal functions closely. 3. Follow up culture and susceptibility results. 4. We will start the patient on empiric p.o. vancomycin as he has been on antibiotics as prophylaxis, b.i.d. dosing. 5. We will obtain Infectious Disease serologies, EBV quantitative PCR, CMV serologies HSV PCR in CSF, RPR and HIV antibody. The patient did give consent for the latter. We will also obtain QuantiFERON test due to extensive travel history. 6. Follow up labs in the a.m. and cultures. 7. Continue supportive care. Discussed with at bedside. Discussed with RN. Thank you, Dr. Carrasquillo, for consulting Infectious Disease to participate in this patient's care. If you have any questions, do not hesitate to contact me. NHAN OLSON MD DR: AUGUSTINA/sen JOB#: [id number] / [id number] XIMENA
[2018-09-06 01:05] LABS: BASO % 0 % (0-3); EOS % 0 % (0-3); HEMATOCRIT 41.8 % (39.0-53.0); HEMOGLOBIN 13.8 g/dL (13.0-17.5); LYMPH # 0.6 x10^3/uL (1.0-4.8); LYMPH % 5 % (24-48); MEAN CORPUSCULAR HEMOGLOBIN 30 pg (25-35); MEAN CORPUSCULAR HGB CONC 33 g/dL (31-37); MEAN CORPUSCULAR VOLUME 89 fL (79-100); MONO # 0.3 x10^3/uL (0.0-1.1); MONO % 2 % (0-9); NEUT # 11.5 x10^3uL (1.8-7.7); NEUT % 92 % (31-73); PLATELET COUNT 216 x10^3/uL (140-400); RED BLOOD COUNT 4.68 x10^6/uL (4.30-5.70); RED CELL DISTRIBUTION WIDTH 14.1 % (11.5-14.5); WHITE BLOOD COUNT 12.5 x10^3/uL (4.0-11.0)
[2018-09-06 01:17] LABS: CALCIUM 8.4 mg/dL (8.5-10.1); POTASSIUM 4.2 mmol/L (3.5-5.1)
[2018-09-06 02:18] LABS: % LYMPHS 3 % (24-48); % MONOS 4 % (0-10); % SEGS 93 % (35-66); PLT ESTIMATE ADEQUATE (ADEQUATE); TOXIC GRANULATION SLIGHT
[2018-09-06 03:19] VITALS: BP 123/72
[2018-09-06] MEDS: CEFEPIME HCL IV Push 2 GM VIAL. IVP SCH ×3 (05:50→22:19)
[2018-09-06] MEDS: oxyCODONE/APAP 5/325 1 TAB TABLET PO PRN ×3 (05:50→22:13)
[2018-09-06] MEDS: PANTOPRAZOLE 40 MG TABLET.DR. PO SCH (05:50)
[2018-09-06] MEDS: DEXTROSE 5% IV SCH ×3 (05:51→22:19)
[2018-09-06] MEDS: ACYCLOVIR SODIUM IV SCH ×3 (05:51→22:19)
[2018-09-06 07:00] VITALS: BP 139/94
[2018-09-06] MEDS: LACTOBACILLUS RHAMNOSUS GG 1 CAPSULE. PO SCH ×2 (08:33→20:33)
[2018-09-06] MEDS: VANCOMYCIN 125 MG/2.5 ML ORAL SOLUTION. PO SCH ×2 (08:33→20:32)
[2018-09-06] MEDS: DOXYCYCLINE HYCLATE 100 MG TABLET PO SCH ×2 (08:34→20:33)
[2018-09-06] MEDS: TAMSULOSIN 0.4 MG CAP.ER.24H. PO SCH ×2 (08:34→20:32)
[2018-09-06] MEDS: ASPIRIN ENTERIC COATED 81 MG TABLET.DR. PO SCH (08:34)
[2018-09-06] MEDS: METOPROLOL SUCC 24HR ER 50 MG TAB.ER.24H. PO SCH (08:37)
[2018-09-06] MEDS: LOSARTAN POTASSIUM 50 MG TABLET. PO SCH (08:37)
[2018-09-06] MEDS: amLODIPine BESYLATE 10 MG TABLET PO SCH (08:37)
[2018-09-06] MEDS: methylPREDNISolone SOD SUCC 500 MG in IV NORMAL SALINE 100ML 100 ML IV SCH ×2 (08:38→20:36)
[2018-09-06] MEDS: BISACODYL 5 MG TABLET.DR. PO SCH (08:38)
[2018-09-06] MEDS ORDERED: methylPREDNISolone 4 MG TABLET. PO SCH (09:00)
--- NOTE | 2018-09-06 09:04 | NUR ---
SW following. Discussed with RN, pt is not ready for discharge yet. SW faxed referral to [facility] yesterday, they will have beds early next week. SW will continue to follow for discharge planning.
--- NOTE | 2018-09-06 09:09 | PDOC ---
PROGRESS NOTES Subjective Subjective He feels somewhat better today. Objective Objective Vital Signs Date Time Temp Pulse Resp B/P (MAP) Pulse Ox O2 Delivery O2 Flow Rate FiO2 09/06/18 08:37 98 138/94 09/06/18 06:50 Room Air 09/06/18 03:19 97.3 18 94 97.3 Intake and Output 09/06/18 07:00 Intake Total 640 ml Output Total 1700 ml Balance -1060 ml Intake Oral 540 ml IV Total 100 ml Output Urine Total 1700 ml # Bowel Movements 2 Physical Exam Physical Exam He continues with paraparesis and neurogenic bladder and no active right hip flexion,knee flexion and hip abduction. Physical and occupational therapy working with him. Plan Plan of Care To rehab unit for continued care when medically ready. Comment Review of Relevant I have reviewed the following items franc (where applicable) has been applied. Labs Laboratory Tests Test 09/04/18 15:35 09/05/18 03:15 09/05/18 09:30 09/05/18 15:08 Erythrocyte Sedimentation Rate 24 (0-15) Prothrombin Time 13.5 SEC (11.7-14.0) Prothromb Time International Ratio 1.1 (0.8-1.1) C-Reactive Protein, Quantitative 39.9 mg/L (0-3.3) White Blood Count 10.1 x10^3/uL (4.0-11.0) Red Blood Count 4.73 x10^6/uL (4.30-5.70) Hemoglobin 14.3 g/dL (13.0-17.5) Hematocrit 42.8 % (39.0-53.0) Mean Corpuscular Volume 91 fL (79-100) Mean Corpuscular Hemoglobin 30 pg (25-35) Mean Corpuscular Hemoglobin Concent 33 g/dL (31-37) Red Cell Distribution Width 14.4 % (11.5-14.5) Platelet Count 199 x10^3/uL (140-400) Neutrophils (%) (Auto) 94 % (31-73) Lymphocytes (%) (Auto) 5 % (24-48) Monocytes (%) (Auto) 1 % (0-9) Eosinophils (%) (Auto) 0 % (0-3) Basophils (%) (Auto) 0 % (0-3) Neutrophils # (Auto) 9.5 x10^3uL (1.8-7.7) Lymphocytes # (Auto) 0.5 x10^3/uL (1.0-4.8) Monocytes # (Auto) 0.1 x10^3/uL (0.0-1.1) Eosinophils # (Auto) 0.0 x10^3/uL (0.0-0.7) Basophils # (Auto) 0.0 x10^3/uL (0.0-0.2) Sodium Level 142 mmol/L (136-145) Potassium Level 4.0 mmol/L (3.5-5.1) Chloride Level 106 mmol/L (98-107) Carbon Dioxide Level 24 mmol/L (21-32) Anion Gap 12 (6-14) Blood Urea Nitrogen 15 mg/dL (8-26) Creatinine 0.9 mg/dL (0.7-1.3) Estimated GFR (Cockcroft-Gault) 84.7 Glucose Level 211 mg/dL (70-99) Calcium Level 8.6 mg/dL (8.5-10.1) CSF Color Colorless CSF Clarity Clear CSF WBC 13 /cmm (Not Established) CSF RBC 7 /cmm (Not Established) CSF Mononuclear WBCs % 98 % CSF Polynuclear WBCs (%) 2 % CSF Glucose 76 mg/dL (37-70) CSF Total Protein 86.4 mg/dL (15.0-45.0) Treponema pallidum Antibody Nonreactive (Nonreactive) Cytomegalovirus IgG Antibody <0.60 U/mL (0.00-0.59) Cytomegalovirus IgM Antibody <30.0 AU/mL (0.0-29.9) HIV (1&2) Antibody Screen Nonreactive (Nonreactive) Mycoplasma Serology (LAB) Negative (NEGATIVE) Test 09/06/18 00:55 White Blood Count 12.5 x10^3/uL (4.0-11.0) Red Blood Count 4.68 x10^6/uL (4.30-5.70) Hemoglobin 13.8 g/dL (13.0-17.5) Hematocrit 41.8 % (39.0-53.0) Mean Corpuscular Volume 89 fL (79-100) Mean Corpuscular Hemoglobin 30 pg (25-35) Mean Corpuscular Hemoglobin Concent 33 g/dL (31-37) Red Cell Distribution Width 14.1 % (11.5-14.5) Platelet Count 216 x10^3/uL (140-400) Neutrophils (%) (Auto) 92 % (31-73) Lymphocytes (%) (Auto) 5 % (24-48) Monocytes (%) (Auto) 2 % (0-9) Eosinophils (%) (Auto) 0 % (0-3) Basophils (%) (Auto) 0 % (0-3) Neutrophils # (Auto) 11.5 x10^3uL (1.8-7.7) Lymphocytes # (Auto) 0.6 x10^3/uL (1.0-4.8) Monocytes # (Auto) 0.3 x10^3/uL (0.0-1.1) Eosinophils # (Auto) 0.0 x10^3/uL (0.0-0.7) Basophils # (Auto) 0.0 x10^3/uL (0.0-0.2) Segmented Neutrophils % 93 % (35-66) Lymphocytes % 3 % (24-48) Monocytes % 4 % (0-10) Toxic Granulation Slight Platelet Estimate Adequate (ADEQUATE) Sodium Level 139 mmol/L (136-145) Potassium Level 4.2 mmol/L (3.5-5.1) Chloride Level 105 mmol/L (98-107) Carbon Dioxide Level 25 mmol/L (21-32) Anion Gap 9 (6-14) Blood Urea Nitrogen 27 mg/dL (8-26) Creatinine 1.0 mg/dL (0.7-1.3) Estimated GFR (Cockcroft-Gault) 75.0 Glucose Level 183 mg/dL (70-99) Calcium Level 8.4 mg/dL (8.5-10.1) Low Molecular Weight Heparin 0.49 IU/mL Laboratory Tests Test 09/05/18 09:30 09/05/18 15:08 09/06/18 00:55 CSF Color Colorless CSF Clarity Clear CSF WBC 13 /cmm (Not Established) CSF RBC 7 /cmm (Not Established) CSF Mononuclear WBCs % 98 % CSF Polynuclear WBCs (%) 2 % CSF Glucose 76 mg/dL (37-70) CSF Total Protein 86.4 mg/dL (15.0-45.0) Treponema pallidum Antibody Nonreactive (Nonreactive) Cytomegalovirus IgG Antibody <0.60 U/mL (0.00-0.59) Cytomegalovirus IgM Antibody <30.0 AU/mL (0.0-29.9) HIV (1&2) Antibody Screen Nonreactive (Nonreactive) Mycoplasma Serology (LAB) Negative (NEGATIVE) White Blood Count 12.5 x10^3/uL (4.0-11.0) Red Blood Count 4.68 x10^6/uL (4.30-5.70) Hemoglobin 13.8 g/dL (13.0-17.5) Hematocrit 41.8 % (39.0-53.0) Mean Corpuscular Volume 89 fL (79-100) Mean Corpuscular Hemoglobin 30 pg (25-35) Mean Corpuscular Hemoglobin Concent 33 g/dL (31-37) Red Cell Distribution Width 14.1 % (11.5-14.5) Platelet Count 216 x10^3/uL (140-400) Neutrophils (%) (Auto) 92 % (31-73) Lymphocytes (%) (Auto) 5 % (24-48) Monocytes (%) (Auto) 2 % (0-9) Eosinophils (%) (Auto) 0 % (0-3) Basophils (%) (Auto) 0 % (0-3) Neutrophils # (Auto) 11.5 x10^3uL (1.8-7.7) Lymphocytes # (Auto) 0.6 x10^3/uL (1.0-4.8) Monocytes # (Auto) 0.3 x10^3/uL (0.0-1.1) Eosinophils # (Auto) 0.0 x10^3/uL (0.0-0.7) Basophils # (Auto) 0.0 x10^3/uL (0.0-0.2) Segmented Neutrophils % 93 % (35-66) Lymphocytes % 3 % (24-48) Monocytes % 4 % (0-10) Toxic Granulation Slight Platelet Estimate Adequate (ADEQUATE) Sodium Level 139 mmol/L (136-145) Potassium Level 4.2 mmol/L (3.5-5.1) Chloride Level 105 mmol/L (98-107) Carbon Dioxide Level 25 mmol/L (21-32) Anion Gap 9 (6-14) Blood Urea Nitrogen 27 mg/dL (8-26) Creatinine 1.0 mg/dL (0.7-1.3) Estimated GFR (Cockcroft-Gault) 75.0 Glucose Level 183 mg/dL (70-99) Calcium Level 8.4 mg/dL (8.5-10.1) Low Molecular Weight Heparin 0.49 IU/mL Microbiology 09/05/18 CSF Gram Stain - Final, Complete 09/03/18 Urine Culture - Final, Complete 09/03/18 Urine Culture Result 1 (LUIS M) - Final, Complete Medications Current Medications Gadobutrol (Gadavist) 10 mmol 1X ONCE IV Last administered on 09/03/18at 15:35 ; Start 09/03/18 at 15:15; Stop 09/03/18 at 15:16; Status DC Aspirin (Ecotrin) 81 mg DAILYWBKFT PO Last administered on 09/06/18at 08:34; Start 09/03/18 at 16:30 Docusate Sodium (Colace) 100 mg PRN DAILY PRN PO HARD STOOLS; Start 09/03/18 at 15:30 Tamsulosin HCl (Flomax) 0.4 mg BID PO Last administered on 09/06/18at 08:34; Start 09/03/18 at 21:00 Non-Formulary Medication (Amlodipine/ Valsartan (Exforge 10-320 Mg Tablet)) 1 tab DAILY PO ; Start 09/04/18 at 09:00; Status UNV Metoprolol Succinate (Toprol Xl) 50 mg DAILY PO Last administered on 09/06/18at 08:37; Start 09/03/18 at 16:30 Polyethylene Glycol (miraLAX PACKET) 17 gm PRN DAILY PRN PO CONSTIPATION 2ND CHOICE; Start 09/04/18 at 09:00 Atorvastatin Calcium (Lipitor) 40 mg QHS PO Last administered on 09/05/18at 21: 01; Start 09/03/18 at 21:00 Oxycodone/ Acetaminophen (Percocet 5/325) 1 tab PRN Q4HRS PRN PO PAIN; Start at 15:30; Stop 09/03/18 at 17:31; Status DC Amlodipine Besylate (Norvasc) 10 mg DAILY PO Last administered on 09/06/18at 08: 37; Start 09/03/18 at 16:30 Losartan Potassium (Cozaar) 100 mg DAILY PO Last administered on 09/06/18at 08: 37; Start 09/03/18 at 16:30 Oxycodone/ Acetaminophen (Percocet 5/325) 1 tab PRN Q6HRS PRN PO MODERATE PAIN Last administered on 09/04/18at 11:07; Start 09/03/18 at 17:30; Stop 09/04/18 at 13:35; Status DC Ciprofloxacin (Cipro) 500 mg BID PO Last administered on 09/05/18at 08:27; Start 09/03/18 at 21:00; Stop 09/05/18 at 13:20; Status DC Oxycodone/ Acetaminophen (Percocet 5/325) 2 tab PRN Q6HRS PRN PO SEVERE PAIN; Start 09/03/18 at 17:45 Acetaminophen (Tylenol) 650 mg PRN Q4HRS PRN PO MILD PAIN Last administered on 09/03/18at 21:01; Start 09/03/18 at 18:45 Enoxaparin Sodium (Lovenox 120mg Syringe) 120 mg Q12HR SQ Last administered on 09/04/18at 07:55; Start 09/04/18 at 09:00; Stop 09/04/18 at 15:42; Status DC Methylprednisolone (Medrol) 8 mg BID PO Last administered on 09/04/18at 11:06; Start 09/04/18 at 10:00; Stop 09/04/18 at 13:28; Status DC Methylprednisolone (Medrol) 4 mg BIDPCLD PO ; Start 09/04/18 at 12:30; Stop at 13:28; Status DC Methylprednisolone (Medrol) 4 mg TIDPC PO ; Start 09/05/18 at 08:30; Stop at 08:30; Status DC Methylprednisolone (Medrol) 8 mg QHS PO ; Start 09/05/18 at 21:00; Stop at 21:00; Status DC Methylprednisolone (Medrol) 4 mg QIDAFTMEAL PO ; Start 09/06/18 at 09:00; Stop 09/06/18 at 09:00; Status DC Methylprednisolone (Medrol) 4 mg TID PO ; Start 09/07/18 at 09:00; Stop at 09:00; Status DC Methylprednisolone (Medrol) 4 mg BID PO ; Start 09/08/18 at 09:00; Stop at 09:00; Status DC Methylprednisolone (Medrol) 4 mg DAILY PO ; Start 09/09/18 at 09:00; Stop at 09:00; Status DC Pantoprazole Sodium (Protonix) 40 mg DAILYAC PO Last administered on 09/06/18at 05:50; Start 09/04/18 at 10:00 Bisacodyl (Dulcolax Tab) 10 mg DAILY PO ; Start 09/04/18 at 10:00 Bisacodyl (Dulcolax Supp) 10 mg PRN DAILY PRN MT CONSTIPATION 1ST RECTAL CHOICE Last administered on 09/04/18at 19:38; Start 09/04/18 at 09:30 Docusate Sodium (Enemeez) 283 mg PRN DAILY PRN MT CONSTIPATION 2ND RECTAL CHOICE; Start 09/04/18 at 09:30 Gadobutrol (Gadavist) 10 mmol 1X ONCE IV Last administered on 09/04/18at 13:26 ; Start 09/04/18 at 13:30; Stop 09/04/18 at 13:31; Status DC Methylprednisolone Sodium Succinate (SOLU-Medrol 125MG VIAL) 500 mg BID IV ; Start 09/04/18 at 21:00; Status UNV Methylprednisolone Sodium Succinate 500 mg/Sodium Chloride 100 ml @ 100 mls/hr Q12HR IV Last administered on 09/06/18at 08:38; Start 09/04/18 at 21:00 Methylprednisolone Sodium Succinate 500 mg/Sodium Chloride 100 ml @ 100 mls/hr Q12HR IV ; Start 09/04/18 at 21:00; Status Cancel Oxycodone/ Acetaminophen (Percocet 5/325) 1 tab PRN Q4HRS PRN PO MODERATE PAIN Last administered on 09/06/18at 05:50; Start 09/04/18 at 13:45 Hydrocortisone Acetate (Anucort-Hc) 25 mg PRN DAILY PRN MT RECTAL PAIN; Start 09/04/18 at 13:30 Enoxaparin Sodium (Lovenox 120mg Syringe) 110 mg Q12HR SQ Last administered on 09/05/18at 21:35; Start 09/04/18 at 21:00; Stop 09/06/18 at 06:49; Status DC Lactobacillus Rhamnosus (Culturelle) 1 cap BID PO Last administered on 08:33; Start 09/04/18 at 21:00 Cefepime HCl (Maxipime) 2 gm Q8HRS IVP Last administered on 09/06/18 05:50; Start 09/05/18 at 14:00 Vancomycin HCl (Vancomycin Oral Solution) 125 mg BID PO Last administered on 08:33; Start 09/05/18 at 21:00 Acyclovir Sodium 750 mg/Dextrose 265 ml @ 265 mls/hr Q8HRS IV Last administered on 09/06/18 05:51; Start 09/05/18 at 14:00 Doxycycline Hyclate (Vibra-Tab) 100 mg BID PO Last administered on 09/06/18 08 :34; Start 09/05/18 at 21:00 Info (Anti-Coagulation Monitoring By Pharmacy) 1 each PRN DAILY PRN MC SEE COMMENTS Last administered on 09/05/18at 13:48; Start 09/05/18 at 14:00 Enoxaparin Sodium (Lovenox 120mg Syringe) 120 mg Q12HR SQ ; Start 09/06/18 at 06 :49; Status Cancel Enoxaparin Sodium (Lovenox 120mg Syringe) 120 mg Q12HR SQ Last administered on 09/06/18 08:39; Start 09/06/18 at 09:00 Active Scripts Active Cipro (Ciprofloxacin Hcl) 500 Mg Tablet 1 Tab PO BID Aspirin Ec (Aspirin) 81 Mg Tablet.dr 81 Mg PO DAILYWBKFT 30 Days Colace (Docusate Sodium) 100 Mg Capsule 100 Mg PO PRN DAILY PRN 30 Days Polyethylene Glycol 3350 17 Gm Powd.pack 17 Gm PO PRN DAILY PRN 14 Days Flomax (Tamsulosin Hcl) 0.4 Mg Cap.er.24h 0.4 Mg PO BID 30 Days Reported Percocet 5-325 Mg Tablet (Oxycodone/Acetaminophen) 1 Each Tablet 1-2 Tab PO Q4-6HRS Exforge 10-320 Mg Tablet (Amlodipine/Valsartan) 1 Each Tablet 1 Tab PO DAILY Crestor (Rosuvastatin Calcium) 10 Mg Tablet 1 Tab PO DAILY Toprol Xl (Metoprolol Succinate) 50 Mg Tab.er.24h 1 Tab PO DAILY Vitals/I & O Vital Sign - Last 24 Hours 09/05/18 09/05/18 09/05/18 09/05/18 11:00 15:00 19:20 20:00 Temp 98.1 97.7 98.0 98.1 97.7 98.0 Pulse 61 70 73 Resp 16 16 18 B/P (MAP) 129/62 (84) 129/78 (95) 135/73 (93) Pulse Ox 92 93 94 O2 Delivery Room Air Room Air Room Air Room Air 09/05/18 09/06/18 09/06/18 09/06/18 23:15 03:19 05:50 06:50 Temp 98.0 97.3 98.0 97.3 Pulse 69 87 Resp 20 18 B/P (MAP) 121/79 (93) 123/72 (89) Pulse Ox 93 94 O2 Delivery Room Air Room Air Room Air Room Air 09/06/18 09/06/18 09/06/18 08:37 08:37 08:37 Pulse 98 98 98 B/P (MAP) 138/94 138/94 138/94 Intake and Output 09/05/18 09/05/18 09/06/18 15:00 23:00 07:00 Intake Total 100 ml 540 ml Output Total 1100 ml 600 ml Balance -1100 ml 100 ml -60 ml LAMONT BASHIR MD Sep 06, 2018 09:09
--- NOTE | 2018-09-06 10:00 | PDOC ---
Infectious Disease Note Subjective: Subjective Pt says feels better RLE weakness slightly improved no f/c/n/v/d Has less abdo discomfort some sinus congestion ROS: ROS Negative except for above. Vital Signs: Vital Signs Vital Signs Date Time Temp Pulse Resp B/P (MAP) Pulse Ox O2 Delivery O2 Flow Rate FiO2 09/06/18 08:37 98 138/94 09/06/18 07:00 97.7 18 96 Room Air 97.7 Physical Exam: PHYSICAL EXAM GENERAL: Alert, oriented x 3 male, in no acute distress, cooperative, pleasant. HEENT: Normocephalic, atraumatic. Anicteric. Dentition, good condition. No oral sores. No oropharyngeal exudate. No thrush. NECK: Supple. No JVD, no thyromegaly, no lymphadenopathy. LUNGS: Clear bilaterally. No wheezing. HEART: S1, S2. No gallops or murmurs. No rubs. Occasional PVCs. ABDOMEN: Soft, nontender and nondistended. No rebound or guarding. EXTREMITIES: Bilateral trace pedal edema. NEUROLOGIC: Alert and oriented x 3. Lower extremity weakness bilaterally, decreased sensation. BLE weakness, slight improvement in movement of Rt foot, SPINE: Back incision well healed, nontender. No surrounding redness or erythema. DERMATOLOGIC: Warm, dry. No generalized rash. PSYCHIATRIC: Cooperative, appropriate mood and affect. MUSCULOSKELETAL: No joint swelling. Medications: Inpatient Meds: Current Medications Medications (Trade) Dose Ordered Sig/Didi Start Time Stop Time Status Last Admin Dose Admin Acetaminophen (Tylenol) 650 mg PRN Q4HRS PRN 09/03/18 18:45 09/03/18 21:01 650 MG Acyclovir Sodium 750 mg/Dextrose 265 ml @ 265 mls/hr Q8HRS 09/05/18 14:00 09/06/18 05:51 265 MLS/HR Amlodipine Besylate (Norvasc) 10 mg DAILY 09/03/18 16:30 09/06/18 08:37 10 MG Aspirin (Ecotrin) 81 mg DAILYWBKFT 09/03/18 16:30 09/06/18 08:34 81 MG Atorvastatin Calcium (Lipitor) 40 mg QHS 09/03/18 21:00 09/05/18 21:01 40 MG Bisacodyl (Dulcolax Supp) 10 mg PRN DAILY PRN 09/04/18 09:30 09/04/18 19:38 10 MG Bisacodyl (Dulcolax Tab) 10 mg DAILY 09/04/18 10:00 Cefepime HCl (Maxipime) 2 gm Q8HRS 09/05/18 14:00 09/06/18 05:50 2 GM Ciprofloxacin (Cipro) 500 mg BID 09/03/18 21:00 09/05/18 13:20 DC 09/05/18 08:27 500 MG Docusate Sodium (Colace) 100 mg PRN DAILY PRN 09/03/18 15:30 Docusate Sodium (Enemeez) 283 mg PRN DAILY PRN 09/04/18 09:30 Doxycycline Hyclate (Vibra-Tab) 100 mg BID 09/05/18 21:00 09/06/18 08:34 100 MG Enoxaparin Sodium (Lovenox 120mg Syringe) 120 mg Q12HR 09/06/18 09:00 09/06/18 08:39 120 MG Gadobutrol (Gadavist) 10 mmol 1X ONCE 09/04/18 13:30 09/04/18 13:31 DC 09/04/18 13:26 10 MMOL Hydrocortisone Acetate (Anucort-Hc) 25 mg PRN DAILY PRN 09/04/18 13:30 Info (Anti-Coagulation Monitoring By Pharmacy) 1 each PRN DAILY PRN 09/05/18 14:00 09/05/18 13:48 1 EACH Lactobacillus Rhamnosus (Culturelle) 1 cap BID 09/04/18 21:00 09/06/18 08:33 1 CAP Losartan Potassium (Cozaar) 100 mg DAILY 09/03/18 16:30 09/06/18 08:37 100 MG Methylprednisolone (Medrol) 4 mg DAILY 09/09/18 09:00 09/09/18 09:00 DC Methylprednisolone Sodium Succinate (SOLU-Medrol 125MG VIAL) 500 mg BID 09/04/18 21:00 UNV Methylprednisolone Sodium Succinate 500 mg/Sodium Chloride 100 ml @ 100 mls/hr Q12HR 09/04/18 21:00 Cancel Metoprolol Succinate (Toprol Xl) 50 mg DAILY 09/03/18 16:30 09/06/18 08:37 50 MG Non-Formulary Medication (Amlodipine/ Valsartan (Exforge 10-320 Mg Tablet)) 1 tab DAILY 09/04/18 09:00 UNV Oxycodone/ Acetaminophen (Percocet 5/325) 1 tab PRN Q4HRS PRN 09/04/18 13:45 09/06/18 05:50 1 TAB Pantoprazole Sodium (Protonix) 40 mg DAILYAC 09/04/18 10:00 09/06/18 05:50 40 MG Polyethylene Glycol (miraLAX PACKET) 17 gm PRN DAILY PRN 09/04/18 09:00 Tamsulosin HCl (Flomax) 0.4 mg BID 09/03/18 21:00 09/06/18 08:34 0.4 MG Vancomycin HCl (Vancomycin Oral Solution) 125 mg BID 09/05/18 21:00 09/06/18 08:33 125 MG Labs: Lab Laboratory Tests Test 09/05/18 15:08 09/06/18 00:55 Treponema pallidum Antibody Nonreactive (Nonreactive) Cytomegalovirus IgG Antibody <0.60 U/mL (0.00-0.59) Cytomegalovirus IgM Antibody <30.0 AU/mL (0.0-29.9) HIV (1&2) Antibody Screen Nonreactive (Nonreactive) Mycoplasma Serology (LAB) Negative (NEGATIVE) White Blood Count 12.5 x10^3/uL (4.0-11.0) Red Blood Count 4.68 x10^6/uL (4.30-5.70) Hemoglobin 13.8 g/dL (13.0-17.5) Hematocrit 41.8 % (39.0-53.0) Mean Corpuscular Volume 89 fL (79-100) Mean Corpuscular Hemoglobin 30 pg (25-35) Mean Corpuscular Hemoglobin Concent 33 g/dL (31-37) Red Cell Distribution Width 14.1 % (11.5-14.5) Platelet Count 216 x10^3/uL (140-400) Neutrophils (%) (Auto) 92 % (31-73) Lymphocytes (%) (Auto) 5 % (24-48) Monocytes (%) (Auto) 2 % (0-9) Eosinophils (%) (Auto) 0 % (0-3) Basophils (%) (Auto) 0 % (0-3) Neutrophils # (Auto) 11.5 x10^3uL (1.8-7.7) Lymphocytes # (Auto) 0.6 x10^3/uL (1.0-4.8) Monocytes # (Auto) 0.3 x10^3/uL (0.0-1.1) Eosinophils # (Auto) 0.0 x10^3/uL (0.0-0.7) Basophils # (Auto) 0.0 x10^3/uL (0.0-0.2) Segmented Neutrophils % 93 % (35-66) Lymphocytes % 3 % (24-48) Monocytes % 4 % (0-10) Toxic Granulation Slight Platelet Estimate Adequate (ADEQUATE) Sodium Level 139 mmol/L (136-145) Potassium Level 4.2 mmol/L (3.5-5.1) Chloride Level 105 mmol/L (98-107) Carbon Dioxide Level 25 mmol/L (21-32) Anion Gap 9 (6-14) Blood Urea Nitrogen 27 mg/dL (8-26) Creatinine 1.0 mg/dL (0.7-1.3) Estimated GFR (Cockcroft-Gault) 75.0 Glucose Level 183 mg/dL (70-99) Calcium Level 8.4 mg/dL (8.5-10.1) Low Molecular Weight Heparin 0.49 IU/mL Objective: Assessment: 1. 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 CSF WBC 13, other studies noted , likely noninfectious but will get infectious studies also 2. Cauda equina syndrome, status post surgery 06/2018. 3. Urinary retention, neurogenic bladder, requiring straight catheterization for 2 months. 4. Recurrent urinary tract infection, 07/2018 pansensitive Escherichia coli, treated with ciprofloxacin. 5. History of Clostridium difficile, 07/2018, treated, no recurrence. 6. Status post laminectomy, 06/30/2018, L3-L5. 7. Bilateral lower extremity weakness. 8. Hyperlipidemia. 9. Hypertension. 10. Hyperglycemia. 11. Non-occlusive thrombus, right posterior tibial and peroneal vein 12. H/O seasonal allergies. Plan: Plan of Care cont acyclovir cont cefepime and doxycycline. Follow up culture and susceptibility results cont p.o. vancomycin prophylaxis, b.i.d. dosing. f/u Infectious Disease serologies Continue supportive care. Discussed with at bedside Discussed with NHAN ASKEW MD Sep 06, 2018 10:00
[2018-09-06 11:00] VITALS: BP 124/75
--- NOTE | 2018-09-06 11:49 | PDOC ---
PROGRESS NOTES Subjective Subjective feels slight improvement in LE strength today pain well controlled Objective Objective Vital Signs Date Time Temp Pulse Resp B/P (MAP) Pulse Ox O2 Delivery O2 Flow Rate FiO2 09/06/18 08:37 98 138/94 09/06/18 07:00 97.7 18 96 Room Air 97.7 Intake and Output 09/06/18 07:00 Intake Total 640 ml Output Total 1700 ml Balance -1060 ml Intake Oral 540 ml IV Total 100 ml Output Urine Total 1700 ml # Bowel Movements 2 Physical Exam General: Alert, Oriented X3, Cooperative, No acute distress Neuro: Other (no significant improvement in exam) Plan Plan of Care steroids per neurology ID following continue PT plan for transfer to rehab next week Comment Review of Relevant I have reviewed the following items franc (where applicable) has been applied. Labs Laboratory Tests Test 09/04/18 15:35 09/05/18 03:15 09/05/18 09:30 09/05/18 15:08 Erythrocyte Sedimentation Rate 24 (0-15) Prothrombin Time 13.5 SEC (11.7-14.0) Prothromb Time International Ratio 1.1 (0.8-1.1) C-Reactive Protein, Quantitative 39.9 mg/L (0-3.3) White Blood Count 10.1 x10^3/uL (4.0-11.0) Red Blood Count 4.73 x10^6/uL (4.30-5.70) Hemoglobin 14.3 g/dL (13.0-17.5) Hematocrit 42.8 % (39.0-53.0) Mean Corpuscular Volume 91 fL (79-100) Mean Corpuscular Hemoglobin 30 pg (25-35) Mean Corpuscular Hemoglobin Concent 33 g/dL (31-37) Red Cell Distribution Width 14.4 % (11.5-14.5) Platelet Count 199 x10^3/uL (140-400) Neutrophils (%) (Auto) 94 % (31-73) Lymphocytes (%) (Auto) 5 % (24-48) Monocytes (%) (Auto) 1 % (0-9) Eosinophils (%) (Auto) 0 % (0-3) Basophils (%) (Auto) 0 % (0-3) Neutrophils # (Auto) 9.5 x10^3uL (1.8-7.7) Lymphocytes # (Auto) 0.5 x10^3/uL (1.0-4.8) Monocytes # (Auto) 0.1 x10^3/uL (0.0-1.1) Eosinophils # (Auto) 0.0 x10^3/uL (0.0-0.7) Basophils # (Auto) 0.0 x10^3/uL (0.0-0.2) Sodium Level 142 mmol/L (136-145) Potassium Level 4.0 mmol/L (3.5-5.1) Chloride Level 106 mmol/L (98-107) Carbon Dioxide Level 24 mmol/L (21-32) Anion Gap 12 (6-14) Blood Urea Nitrogen 15 mg/dL (8-26) Creatinine 0.9 mg/dL (0.7-1.3) Estimated GFR (Cockcroft-Gault) 84.7 Glucose Level 211 mg/dL (70-99) Calcium Level 8.6 mg/dL (8.5-10.1) CSF Color Colorless CSF Clarity Clear CSF WBC 13 /cmm (Not Established) CSF RBC 7 /cmm (Not Established) CSF Mononuclear WBCs % 98 % CSF Polynuclear WBCs (%) 2 % CSF Glucose 76 mg/dL (37-70) CSF Total Protein 86.4 mg/dL (15.0-45.0) Treponema pallidum Antibody Nonreactive (Nonreactive) Cytomegalovirus IgG Antibody <0.60 U/mL (0.00-0.59) Cytomegalovirus IgM Antibody <30.0 AU/mL (0.0-29.9) HIV (1&2) Antibody Screen Nonreactive (Nonreactive) Mycoplasma Serology (LAB) Negative (NEGATIVE) Test 09/06/18 00:55 White Blood Count 12.5 x10^3/uL (4.0-11.0) Red Blood Count 4.68 x10^6/uL (4.30-5.70) Hemoglobin 13.8 g/dL (13.0-17.5) Hematocrit 41.8 % (39.0-53.0) Mean Corpuscular Volume 89 fL (79-100) Mean Corpuscular Hemoglobin 30 pg (25-35) Mean Corpuscular Hemoglobin Concent 33 g/dL (31-37) Red Cell Distribution Width 14.1 % (11.5-14.5) Platelet Count 216 x10^3/uL (140-400) Neutrophils (%) (Auto) 92 % (31-73) Lymphocytes (%) (Auto) 5 % (24-48) Monocytes (%) (Auto) 2 % (0-9) Eosinophils (%) (Auto) 0 % (0-3) Basophils (%) (Auto) 0 % (0-3) Neutrophils # (Auto) 11.5 x10^3uL (1.8-7.7) Lymphocytes # (Auto) 0.6 x10^3/uL (1.0-4.8) Monocytes # (Auto) 0.3 x10^3/uL (0.0-1.1) Eosinophils # (Auto) 0.0 x10^3/uL (0.0-0.7) Basophils # (Auto) 0.0 x10^3/uL (0.0-0.2) Segmented Neutrophils % 93 % (35-66) Lymphocytes % 3 % (24-48) Monocytes % 4 % (0-10) Toxic Granulation Slight Platelet Estimate Adequate (ADEQUATE) Sodium Level 139 mmol/L (136-145) Potassium Level 4.2 mmol/L (3.5-5.1) Chloride Level 105 mmol/L (98-107) Carbon Dioxide Level 25 mmol/L (21-32) Anion Gap 9 (6-14) Blood Urea Nitrogen 27 mg/dL (8-26) Creatinine 1.0 mg/dL (0.7-1.3) Estimated GFR (Cockcroft-Gault) 75.0 Glucose Level 183 mg/dL (70-99) Calcium Level 8.4 mg/dL (8.5-10.1) Low Molecular Weight Heparin 0.49 IU/mL Laboratory Tests Test 09/05/18 15:08 09/06/18 00:55 Treponema pallidum Antibody Nonreactive (Nonreactive) Cytomegalovirus IgG Antibody <0.60 U/mL (0.00-0.59) Cytomegalovirus IgM Antibody <30.0 AU/mL (0.0-29.9) HIV (1&2) Antibody Screen Nonreactive (Nonreactive) Mycoplasma Serology (LAB) Negative (NEGATIVE) White Blood Count 12.5 x10^3/uL (4.0-11.0) Red Blood Count 4.68 x10^6/uL (4.30-5.70) Hemoglobin 13.8 g/dL (13.0-17.5) Hematocrit 41.8 % (39.0-53.0) Mean Corpuscular Volume 89 fL (79-100) Mean Corpuscular Hemoglobin 30 pg (25-35) Mean Corpuscular Hemoglobin Concent 33 g/dL (31-37) Red Cell Distribution Width 14.1 % (11.5-14.5) Platelet Count 216 x10^3/uL (140-400) Neutrophils (%) (Auto) 92 % (31-73) Lymphocytes (%) (Auto) 5 % (24-48) Monocytes (%) (Auto) 2 % (0-9) Eosinophils (%) (Auto) 0 % (0-3) Basophils (%) (Auto) 0 % (0-3) Neutrophils # (Auto) 11.5 x10^3uL (1.8-7.7) Lymphocytes # (Auto) 0.6 x10^3/uL (1.0-4.8) Monocytes # (Auto) 0.3 x10^3/uL (0.0-1.1) Eosinophils # (Auto) 0.0 x10^3/uL (0.0-0.7) Basophils # (Auto) 0.0 x10^3/uL (0.0-0.2) Segmented Neutrophils % 93 % (35-66) Lymphocytes % 3 % (24-48) Monocytes % 4 % (0-10) Toxic Granulation Slight Platelet Estimate Adequate (ADEQUATE) Sodium Level 139 mmol/L (136-145) Potassium Level 4.2 mmol/L (3.5-5.1) Chloride Level 105 mmol/L (98-107) Carbon Dioxide Level 25 mmol/L (21-32) Anion Gap 9 (6-14) Blood Urea Nitrogen 27 mg/dL (8-26) Creatinine 1.0 mg/dL (0.7-1.3) Estimated GFR (Cockcroft-Gault) 75.0 Glucose Level 183 mg/dL (70-99) Calcium Level 8.4 mg/dL (8.5-10.1) Low Molecular Weight Heparin 0.49 IU/mL Microbiology 09/05/18 CSF Gram Stain - Final, Complete 09/03/18 Urine Culture - Final, Complete 09/03/18 Urine Culture Result 1 (LUIS M) - Final, Complete Medications Current Medications Gadobutrol (Gadavist) 10 mmol 1X ONCE IV Last administered on 09/03/18at 15:35 ; Start 09/03/18 at 15:15; Stop 09/03/18 at 15:16; Status DC Aspirin (Ecotrin) 81 mg DAILYWBKFT PO Last administered on 09/06/18 08:34; Start 09/03/18 at 16:30 Docusate Sodium (Colace) 100 mg PRN DAILY PRN PO HARD STOOLS; Start 09/03/18 at 15:30 Tamsulosin HCl (Flomax) 0.4 mg BID PO Last administered on 09/06/18 08:34; Start 09/03/18 at 21:00 Non-Formulary Medication (Amlodipine/ Valsartan (Exforge 10-320 Mg Tablet)) 1 tab DAILY PO ; Start 09/04/18 at 09:00; Status UNV Metoprolol Succinate (Toprol Xl) 50 mg DAILY PO Last administered on 09/06/18 08:37; Start 09/03/18 at 16:30 Polyethylene Glycol (miraLAX PACKET) 17 gm PRN DAILY PRN PO CONSTIPATION 2ND CHOICE; Start 09/04/18 at 09:00 Atorvastatin Calcium (Lipitor) 40 mg QHS PO Last administered on 09/05/18at 21: 01; Start 09/03/18 at 21:00 Oxycodone/ Acetaminophen (Percocet 5/325) 1 tab PRN Q4HRS PRN PO PAIN; Start at 15:30; Stop 09/03/18 at 17:31; Status DC Amlodipine Besylate (Norvasc) 10 mg DAILY PO Last administered on 09/06/18 08: 37; Start 09/03/18 at 16:30 Losartan Potassium (Cozaar) 100 mg DAILY PO Last administered on 09/06/18 08: 37; Start 09/03/18 at 16:30 Oxycodone/ Acetaminophen (Percocet 5/325) 1 tab PRN Q6HRS PRN PO MODERATE PAIN Last administered on 09/04/18at 11:07; Start 09/03/18 at 17:30; Stop 09/04/18 at 13:35; Status DC Ciprofloxacin (Cipro) 500 mg BID PO Last administered on 09/05/18at 08:27; Start 09/03/18 at 21:00; Stop 09/05/18 at 13:20; Status DC Oxycodone/ Acetaminophen (Percocet 5/325) 2 tab PRN Q6HRS PRN PO SEVERE PAIN; Start 09/03/18 at 17:45 Acetaminophen (Tylenol) 650 mg PRN Q4HRS PRN PO MILD PAIN Last administered on 09/03/18at 21:01; Start 09/03/18 at 18:45 Enoxaparin Sodium (Lovenox 120mg Syringe) 120 mg Q12HR SQ Last administered on 09/04/18at 07:55; Start 09/04/18 at 09:00; Stop 09/04/18 at 15:42; Status DC Methylprednisolone (Medrol) 8 mg BID PO Last administered on 09/04/18at 11:06; Start 09/04/18 at 10:00; Stop 09/04/18 at 13:28; Status DC Methylprednisolone (Medrol) 4 mg BIDPCLD PO ; Start 09/04/18 at 12:30; Stop at 13:28; Status DC Methylprednisolone (Medrol) 4 mg TIDPC PO ; Start 09/05/18 at 08:30; Stop at 08:30; Status DC Methylprednisolone (Medrol) 8 mg QHS PO ; Start 09/05/18 at 21:00; Stop at 21:00; Status DC Methylprednisolone (Medrol) 4 mg QIDAFTMEAL PO ; Start 09/06/18 at 09:00; Stop 09/06/18 at 09:00; Status DC Methylprednisolone (Medrol) 4 mg TID PO ; Start 09/07/18 at 09:00; Stop at 09:00; Status DC Methylprednisolone (Medrol) 4 mg BID PO ; Start 09/08/18 at 09:00; Stop at 09:00; Status DC Methylprednisolone (Medrol) 4 mg DAILY PO ; Start 09/09/18 at 09:00; Stop at 09:00; Status DC Pantoprazole Sodium (Protonix) 40 mg DAILYAC PO Last administered on 09/06/18at 05:50; Start 09/04/18 at 10:00 Bisacodyl (Dulcolax Tab) 10 mg DAILY PO ; Start 09/04/18 at 10:00 Bisacodyl (Dulcolax Supp) 10 mg PRN DAILY PRN [place] CONSTIPATION 1ST RECTAL CHOICE Last administered on 09/04/18at 19:38; Start 09/04/18 at 09:30 Docusate Sodium (Enemeez) 283 mg PRN DAILY PRN NV CONSTIPATION 2ND RECTAL CHOICE; Start 09/04/18 at 09:30 Gadobutrol (Gadavist) 10 mmol 1X ONCE IV Last administered on 09/04/18at 13:26 ; Start 09/04/18 at 13:30; Stop 09/04/18 at 13:31; Status DC Methylprednisolone Sodium Succinate (SOLU-Medrol 125MG VIAL) 500 mg BID IV ; Start 09/04/18 at 21:00; Status UNV Methylprednisolone Sodium Succinate 500 mg/Sodium Chloride 100 ml @ 100 mls/hr Q12HR IV Last administered on 09/06/18at 08:38; Start 09/04/18 at 21:00 Methylprednisolone Sodium Succinate 500 mg/Sodium Chloride 100 ml @ 100 mls/hr Q12HR IV ; Start 09/04/18 at 21:00; Status Cancel Oxycodone/ Acetaminophen (Percocet 5/325) 1 tab PRN Q4HRS PRN PO MODERATE PAIN Last administered on 09/06/18at 05:50; Start 09/04/18 at 13:45 Hydrocortisone Acetate (Anucort-Hc) 25 mg PRN DAILY PRN NV RECTAL PAIN; Start 09/04/18 at 13:30 Enoxaparin Sodium (Lovenox 120mg Syringe) 110 mg Q12HR SQ Last administered on 09/05/18at 21:35; Start 09/04/18 at 21:00; Stop 09/06/18 at 06:49; Status DC Lactobacillus Rhamnosus (Culturelle) 1 cap BID PO Last administered on at 08:33; Start 09/04/18 at 21:00 Cefepime HCl (Maxipime) 2 gm Q8HRS IVP Last administered on 09/06/18at 05:50; Start 09/05/18 at 14:00 Vancomycin HCl (Vancomycin Oral Solution) 125 mg BID PO Last administered on at 08:33; Start 09/05/18 at 21:00 Acyclovir Sodium 750 mg/Dextrose 265 ml @ 265 mls/hr Q8HRS IV Last administered on 09/06/18at 05:51; Start 09/05/18 at 14:00 Doxycycline Hyclate (Vibra-Tab) 100 mg BID PO Last administered on 09/06/18at 08 :34; Start 09/05/18 at 21:00 Info (Anti-Coagulation Monitoring By Pharmacy) 1 each PRN DAILY PRN MC SEE COMMENTS Last administered on 09/05/18at 13:48; Start 09/05/18 at 14:00 Enoxaparin Sodium (Lovenox 120mg Syringe) 120 mg Q12HR SQ ; Start 09/06/18 at 06 :49; Status Cancel Enoxaparin Sodium (Lovenox 120mg Syringe) 120 mg Q12HR SQ Last administered on 09/06/18at 08:39; Start 09/06/18 at 09:00 Cetirizine HCl (ZyrTEC) 10 mg DAILY PO ; Start 09/04/18 at 11:00 Active Scripts Active Cipro (Ciprofloxacin Hcl) 500 Mg Tablet 1 Tab PO BID Aspirin Ec (Aspirin) 81 Mg Tablet.dr 81 Mg PO DAILYWBKFT 30 Days Colace (Docusate Sodium) 100 Mg Capsule 100 Mg PO PRN DAILY PRN 30 Days Polyethylene Glycol 3350 17 Gm Powd.pack 17 Gm PO PRN DAILY PRN 14 Days Flomax (Tamsulosin Hcl) 0.4 Mg Cap.er.24h 0.4 Mg PO BID 30 Days Reported Percocet 5-325 Mg Tablet (Oxycodone/Acetaminophen) 1 Each Tablet 1-2 Tab PO Q4-6HRS Exforge 10-320 Mg Tablet (Amlodipine/Valsartan) 1 Each Tablet 1 Tab PO DAILY Crestor (Rosuvastatin Calcium) 10 Mg Tablet 1 Tab PO DAILY Toprol Xl (Metoprolol Succinate) 50 Mg Tab.er.24h 1 Tab PO DAILY Vitals/I & O Vital Sign - Last 24 Hours 09/05/18 09/05/18 09/05/18 09/05/18 15:00 19:20 20:00 23:15 Temp 97.7 98.0 98.0 97.7 98.0 98.0 Pulse 70 73 69 Resp 16 18 20 B/P (MAP) 129/78 (95) 135/73 (93) 121/79 (93) Pulse Ox 93 94 93 O2 Delivery Room Air Room Air Room Air Room Air 09/06/18 09/06/18 09/06/18 09/06/18 03:19 05:50 06:50 07:00 Temp 97.3 97.7 97.3 97.7 Pulse 87 98 Resp 18 18 B/P (MAP) 123/72 (89) 139/94 (109) Pulse Ox 94 96 O2 Delivery Room Air Room Air Room Air Room Air 09/06/18 09/06/18 09/06/18 08:37 08:37 08:37 Pulse 98 98 98 B/P (MAP) 138/94 138/94 138/94 Intake and Output 09/05/18 09/05/18 09/06/18 15:00 23:00 07:00 Intake Total 100 ml 540 ml Output Total 1100 ml 600 ml Balance -1100 ml 100 ml -60 ml DAVINA SANCHEZ APRN Sep 06, 2018 11:49
[2018-09-06] MEDS ORDERED: DEXTROSE 50% 25 GM / 50ML DISP.SYRIN. IV PRN (12:30)
--- NOTE | 2018-09-06 12:33 | PDOC ---
PROGRESS NOTES Assessment Assessment T9-10 transverse myelitis. Paraplegia below T10. Worsening of LE weakness. Urinary incontinence. Bowel dysfunction. Fever, recurrent intermittent in the past 3 months. Recurrent UTIs in the past 3 months. HTN. HLD. PVCs, chronic. Lumbar spine stenosis s/p surgery. Degenerative spine and disc diseases. DVT. Obesity. RECOMMENDATIONS/PLAN: IV Solu-Medrol 500 mg IV bid x 5 days till Sunday. Plasma exchange thereafter. Please consult Nephrology. Lab: [facility], outpatient [place]. Monitoring BP, HR, CBC, glucose level and signs of GI bleeding. Treat medical diseases. Consulted ID. OT/PT. Discussed with his at bedside on 09/05/18. Brain MRI w/wo contrast: Unremarkable. CSF on 09/05/18: WBC 13, mono 98%, RBC 7. Protein 86.4, glucose 76. Gram stain: no organism seen. TSH: 1.83, B12 1152. CK 48. ESR 24, CRP 39.9. HISTORY OF THE PRESENT ILLNESS: This is a 63-year-old male patient with past medical history of Equina syndrome since 06/2018 and had surgery on or about 06/28/2018. He stated he uses Parker cath about 4 times a day since due to urinary retention and he had frequent UTIs. He stated he had fever comes and goes in the past 2 to 3 months. He stated he felt decreased sensation from his lower abdomen down to feet and weakness in LE, but unable to ambulate in the past 3 days except bed resting. He stated on 09/05/18 that PT/OT may make his weakness worse due to tiredness. He stated on 09/06/18 he was able to move his feet from side to side and up and down. Past Medical History Cardiovascular: HTN, Hyperlipidemia. Pulmonary: No pertinent hx CENTRAL NERVOUS SYSTEM: Periperal neuropathy GI: No pertinent hx Heme/Onc: No pertinent hx Hepatobiliary: No pertinent hx, Cholelithiasis Psych: No pertinent hx Rheumatologic: No pertinent hx Infectious disease: No pertinent hx Renal/: No pertinent hx Endocrine: No pertinent hx Past Surgical History Lumbar spinal stenosis, L3-L4. Lateral recess stenosis without epidural abscess , L5-S1. Lumbar laminectomy, L3-L4, L5-S1 with decompression of dura and nerve root. Cholecystectomy, Hip Replacement, Knee Replacement, Lumbar Laminectomy, oral surgery. Family History Heart Disease, Social History ALCOHOL: occasional Drugs: None ALLERGY: NKDA MEDICATIONS: Refer to MAR REVIEW OF SYSTEMS: Constitutional: Obesity.. Head: No traumatic brain or head injury. Skin: No edema, or rash. Ear: No infection. Eyes: No vision loss or color blindness. Nose: No bleeding or purulent discharges. Hearing: No hearing decrease. Neck: No injury. Cardiovascular: HTN, Hyperlipidemia. Pulmonary: No pertinent hx CENTRAL NERVOUS SYSTEM: Periperal neuropathy GI: No pertinent hx Heme/Onc: No pertinent hx Hepatobiliary: No pertinent hx, Cholelithiasis Psych: No pertinent hx Musculoskeletal: Osteoarthritis, Other Rheumatologic: No pertinent hx Infectious disease: No pertinent hx Renal/: No pertinent hx Endocrine: No pertinent hx Psychiatric: Denies drug use/abuse. Otherwise, not [id number] review of systems. PHYSICAL EXAMINATION: General appearance is in subacute distress. HEENT: Normocephalic and nontraumatic. Eyes, nose, ears, and throat are unremarkable. Neck is supple. No lymphadenopathy. No crepitus. Cardiovascular: S1, S2, regular rate and rhythm. Pulmonary: Clear to auscultation bilaterally. Abdomen: Bowel sounds are positive. Abdomen is soft, nontender, and nondistended. Extremities: Edema in LE. No restriction of range of motion NEUROLOGICAL EXAMINATION: Alert Oriented to time, place and person. PERRL. EOMI. CN: no focal findings. Muscle tone: within normal in UE, decreased in LE. Muscle strength: 2- right LE, 2+ left LE. 5 UE bilateral. DTR: 2 in UE, 0 at knee and ankle. LE edema noted. Plantar reflex: No response bilaterally Gait: Unable to walk. Sensory exam: Decreased light touch, temperature and vibration sense below T11 or T12. Right LE worse than left side. No cerebellar signs elicited. F-T-N test fine. Objective Objective Vital Signs Date Time Temp Pulse Resp B/P (MAP) Pulse Ox O2 Delivery O2 Flow Rate FiO2 09/06/18 11:00 98.2 87 16 124/75 (91) 94 Room Air 98.2 Intake and Output 09/06/18 06:59 Intake Total 640 ml Output Total 1700 ml Balance -1060 ml Intake Oral 540 ml IV Total 100 ml Output Urine Total 1700 ml # Bowel Movements 2 Vitals Signs Vitals VS - Last 72 Hours, by Label Date Time Temp Pulse Resp B/P (MAP) Pulse Ox O2 Delivery O2 Flow Rate FiO2 09/06/18 11:00 98.2 87 16 124/75 (91) 94 Room Air 98.2 09/06/18 08:37 98 138/94 09/06/18 08:37 98 138/94 09/06/18 08:37 98 138/94 09/06/18 07:00 97.7 98 18 139/94 (109) 96 Room Air 97.7 09/06/18 06:50 Room Air 09/06/18 05:50 Room Air 09/06/18 03:19 97.3 87 18 123/72 (89) 94 Room Air 97.3 09/05/18 23:15 98.0 69 20 121/79 (93) 93 Room Air 98.0 09/05/18 20:00 Room Air 09/05/18 19:20 98.0 73 18 135/73 (93) 94 Room Air 98.0 09/05/18 15:00 97.7 70 16 129/78 (95) 93 Room Air 97.7 09/05/18 11:00 98.1 61 16 129/62 (84) 92 Room Air 98.1 09/05/18 08:26 158/85 09/05/18 08:25 158/85 09/05/18 08:24 158/85 09/05/18 08:00 Room Air 09/05/18 07:00 97.8 54 16 159/85 (109) 92 Room Air 97.8 Laboratory Laboratory Laboratory Tests Test 09/05/18 15:08 09/06/18 00:55 Treponema pallidum Antibody Nonreactive (Nonreactive) Cytomegalovirus IgG Antibody <0.60 U/mL (0.00-0.59) Cytomegalovirus IgM Antibody <30.0 AU/mL (0.0-29.9) HIV (1&2) Antibody Screen Nonreactive (Nonreactive) Mycoplasma Serology (LAB) Negative (NEGATIVE) White Blood Count 12.5 x10^3/uL (4.0-11.0) Red Blood Count 4.68 x10^6/uL (4.30-5.70) Hemoglobin 13.8 g/dL (13.0-17.5) Hematocrit 41.8 % (39.0-53.0) Mean Corpuscular Volume 89 fL (79-100) Mean Corpuscular Hemoglobin 30 pg (25-35) Mean Corpuscular Hemoglobin Concent 33 g/dL (31-37) Red Cell Distribution Width 14.1 % (11.5-14.5) Platelet Count 216 x10^3/uL (140-400) Neutrophils (%) (Auto) 92 % (31-73) Lymphocytes (%) (Auto) 5 % (24-48) Monocytes (%) (Auto) 2 % (0-9) Eosinophils (%) (Auto) 0 % (0-3) Basophils (%) (Auto) 0 % (0-3) Neutrophils # (Auto) 11.5 x10^3uL (1.8-7.7) Lymphocytes # (Auto) 0.6 x10^3/uL (1.0-4.8) Monocytes # (Auto) 0.3 x10^3/uL (0.0-1.1) Eosinophils # (Auto) 0.0 x10^3/uL (0.0-0.7) Basophils # (Auto) 0.0 x10^3/uL (0.0-0.2) Segmented Neutrophils % 93 % (35-66) Lymphocytes % 3 % (24-48) Monocytes % 4 % (0-10) Toxic Granulation Slight Platelet Estimate Adequate (ADEQUATE) Sodium Level 139 mmol/L (136-145) Potassium Level 4.2 mmol/L (3.5-5.1) Chloride Level 105 mmol/L (98-107) Carbon Dioxide Level 25 mmol/L (21-32) Anion Gap 9 (6-14) Blood Urea Nitrogen 27 mg/dL (8-26) Creatinine 1.0 mg/dL (0.7-1.3) Estimated GFR (Cockcroft-Gault) 75.0 Glucose Level 183 mg/dL (70-99) Calcium Level 8.4 mg/dL (8.5-10.1) Low Molecular Weight Heparin 0.49 IU/mL Microbiology 09/05/18 CSF Gram Stain - Final, Complete 09/03/18 Urine Culture - Final, Complete 09/03/18 Urine Culture Result 1 (LUIS M) - Final, Complete Medication Medications Current Medications Acyclovir Sodium 750 mg/Dextrose 265 ml @ 265 mls/hr Q8HRS IV Last administered on 09/06/18at 05:51; Start 09/05/18 at 14:00 Cefepime HCl (Maxipime) 2 gm Q8HRS IVP Last administered on 09/06/18at 05:50; Start 09/05/18 at 14:00 Dextrose (Dextrose 50%-Water Syringe) 12.5 gm PRN Q15MIN PRN IV SEE COMMENTS; Start 09/06/18 at 12:30 Doxycycline Hyclate (Vibra-Tab) 100 mg BID PO Last administered on 09/06/18at 08 :34; Start 09/05/18 at 21:00 Enoxaparin Sodium (Lovenox 120mg Syringe) 120 mg Q12HR SQ ; Start 09/06/18 at 06 :49; Status Cancel Enoxaparin Sodium (Lovenox 120mg Syringe) 120 mg Q12HR SQ Last administered on 09/06/18at 08:39; Start 09/06/18 at 09:00 Info (Anti-Coagulation Monitoring By Pharmacy) 1 each PRN DAILY PRN MC SEE COMMENTS Last administered on 09/05/18at 13:48; Start 09/05/18 at 14:00 Insulin Human Lispro (HumaLOG) 0-7 UNITS TIDWMEALS SQ ; Start 09/06/18 at 17:00 Methylprednisolone (Medrol) 4 mg BID PO ; Start 09/08/18 at 09:00; Stop at 09:00; Status DC Methylprednisolone (Medrol) 4 mg DAILY PO ; Start 09/09/18 at 09:00; Stop at 09:00; Status DC Methylprednisolone (Medrol) 4 mg QIDAFTMEAL PO ; Start 09/06/18 at 09:00; Stop 09/06/18 at 09:00; Status DC Methylprednisolone (Medrol) 4 mg TID PO ; Start 09/07/18 at 09:00; Stop at 09:00; Status DC Methylprednisolone (Medrol) 8 mg QHS PO ; Start 09/05/18 at 21:00; Stop at 21:00; Status DC Vancomycin HCl (Vancomycin Oral Solution) 125 mg BID PO Last administered on at 08:33; Start 09/05/18 at 21:00 Comment Review of Relevant I have reviewed the following items franc (where applicable) has been applied. IVETTE REDMAN MD Sep 06, 2018 12:33
[2018-09-06 15:00] VITALS: BP 120/74
[2018-09-06] MEDS: CALCIUM CARBONATE 500 MG TABLET PO SCH (15:12)
[2018-09-06] MEDS: THIAMINE 100 MG TABLET. PO SCH (15:12)
[2018-09-06] MEDS: MULTIVITAMIN with MINERAL TABLET. PO SCH (15:12)
[2018-09-06] MEDS: CETIRIZINE HCL 10 MG TABLET. PO SCH ×3 (15:12→15:21)
--- NOTE | 2018-09-06 16:34 | PDOC ---
PROGRESS NOTES Chief Complaint Chief Complaint Transverse myelitis- See MRI results 09/03 Cauda Equina Syndrome Bilateral LE weakness S/p laminectomy (06/2018) L3-L5 Recent admission for UTI/C.Diff (07/2018) Neurogenic bladder- requiring straight cath x2 months Hyperlipidemia Essential hypertension History of Present Illness History of Present Illness still weak, no vomiting large stool this AM, not loose , just large volume, Laminectomy in Jun 2018 led to neurogenic bladder, admission in 07/2018 for UTI, C.Diff, now Cauda Equina Syndrome and transverse myelitis Difficulty ambulating at home to the point that pt could not walk with his walker anymore Pt and family were very pleasant upon exam Discussed with RN and subspecialist Vitals Vitals Vital Signs Date Time Temp Pulse Resp B/P (MAP) Pulse Ox O2 Delivery O2 Flow Rate FiO2 09/06/18 15:24 Room Air 09/06/18 15:00 98.1 77 16 120/74 (89) 95 98.1 Physical Exam Physical Exam GENERAL: Alert, oriented x 3 male, in no acute distress, cooperative, pleasant. HEENT: Normocephalic, atraumatic. Anicteric. Dentition, good condition. No oral sores. No oropharyngeal exudate. No thrush. NECK: Supple. No JVD, no thyromegaly, no lymphadenopathy. LUNGS: Clear bilaterally. No wheezing. HEART: S1, S2. No gallops or murmurs. No rubs. Occasional PVCs. ABDOMEN: Soft, nontender and nondistended. No rebound or guarding. EXTREMITIES: Bilateral trace pedal edema. NEUROLOGIC: Alert and oriented x 3. Lower extremity weakness bilaterally, decreased sensation. BLE weakness, slight improvement in movement of Rt foot, SPINE: Back incision well healed, nontender. No surrounding redness or erythema. DERMATOLOGIC: Warm, dry. No generalized rash. PSYCHIATRIC: Cooperative, appropriate mood and affect. MUSCULOSKELETAL: No joint swelling. General: Alert, Oriented X3, Cooperative, No acute distress Heart: Regular rate, No murmurs Lungs: Clear Abdomen: Normal bowel sounds, Soft, No tenderness Extremities: No cyanosis, Other (decreased muscle strength in B/L LEs, B/L LE edema up to distal thigh) Labs LABS Laboratory Tests Test 09/06/18 00:55 White Blood Count 12.5 x10^3/uL (4.0-11.0) Red Blood Count 4.68 x10^6/uL (4.30-5.70) Hemoglobin 13.8 g/dL (13.0-17.5) Hematocrit 41.8 % (39.0-53.0) Mean Corpuscular Volume 89 fL (79-100) Mean Corpuscular Hemoglobin 30 pg (25-35) Mean Corpuscular Hemoglobin Concent 33 g/dL (31-37) Red Cell Distribution Width 14.1 % (11.5-14.5) Platelet Count 216 x10^3/uL (140-400) Neutrophils (%) (Auto) 92 % (31-73) Lymphocytes (%) (Auto) 5 % (24-48) Monocytes (%) (Auto) 2 % (0-9) Eosinophils (%) (Auto) 0 % (0-3) Basophils (%) (Auto) 0 % (0-3) Neutrophils # (Auto) 11.5 x10^3uL (1.8-7.7) Lymphocytes # (Auto) 0.6 x10^3/uL (1.0-4.8) Monocytes # (Auto) 0.3 x10^3/uL (0.0-1.1) Eosinophils # (Auto) 0.0 x10^3/uL (0.0-0.7) Basophils # (Auto) 0.0 x10^3/uL (0.0-0.2) Segmented Neutrophils % 93 % (35-66) Lymphocytes % 3 % (24-48) Monocytes % 4 % (0-10) Toxic Granulation Slight Platelet Estimate Adequate (ADEQUATE) Sodium Level 139 mmol/L (136-145) Potassium Level 4.2 mmol/L (3.5-5.1) Chloride Level 105 mmol/L (98-107) Carbon Dioxide Level 25 mmol/L (21-32) Anion Gap 9 (6-14) Blood Urea Nitrogen 27 mg/dL (8-26) Creatinine 1.0 mg/dL (0.7-1.3) Estimated GFR (Cockcroft-Gault) 75.0 Glucose Level 183 mg/dL (70-99) Calcium Level 8.4 mg/dL (8.5-10.1) Low Molecular Weight Heparin 0.49 IU/mL Assessment and Plan Assessmemt and Plan cont current Comment Review of Relevant I have reviewed the following items franc (where applicable) has been applied. Labs Laboratory Tests Test 09/05/18 03:15 09/05/18 09:30 09/05/18 15:08 09/06/18 00:55 White Blood Count 10.1 x10^3/uL (4.0-11.0) 12.5 x10^3/uL (4.0-11.0) Red Blood Count 4.73 x10^6/uL (4.30-5.70) 4.68 x10^6/uL (4.30-5.70) Hemoglobin 14.3 g/dL (13.0-17.5) 13.8 g/dL (13.0-17.5) Hematocrit 42.8 % (39.0-53.0) 41.8 % (39.0-53.0) Mean Corpuscular Volume 91 fL (79-100) 89 fL (79-100) Mean Corpuscular Hemoglobin 30 pg (25-35) 30 pg (25-35) Mean Corpuscular Hemoglobin Concent 33 g/dL (31-37) 33 g/dL (31-37) Red Cell Distribution Width 14.4 % (11.5-14.5) 14.1 % (11.5-14.5) Platelet Count 199 x10^3/uL (140-400) 216 x10^3/uL (140-400) Neutrophils (%) (Auto) 94 % (31-73) 92 % (31-73) Lymphocytes (%) (Auto) 5 % (24-48) 5 % (24-48) Monocytes (%) (Auto) 1 % (0-9) 2 % (0-9) Eosinophils (%) (Auto) 0 % (0-3) 0 % (0-3) Basophils (%) (Auto) 0 % (0-3) 0 % (0-3) Neutrophils # (Auto) 9.5 x10^3uL (1.8-7.7) 11.5 x10^3uL (1.8-7.7) Lymphocytes # (Auto) 0.5 x10^3/uL (1.0-4.8) 0.6 x10^3/uL (1.0-4.8) Monocytes # (Auto) 0.1 x10^3/uL (0.0-1.1) 0.3 x10^3/uL (0.0-1.1) Eosinophils # (Auto) 0.0 x10^3/uL (0.0-0.7) 0.0 x10^3/uL (0.0-0.7) Basophils # (Auto) 0.0 x10^3/uL (0.0-0.2) 0.0 x10^3/uL (0.0-0.2) Sodium Level 142 mmol/L (136-145) 139 mmol/L (136-145) Potassium Level 4.0 mmol/L (3.5-5.1) 4.2 mmol/L (3.5-5.1) Chloride Level 106 mmol/L (98-107) 105 mmol/L (98-107) Carbon Dioxide Level 24 mmol/L (21-32) 25 mmol/L (21-32) Anion Gap 12 (6-14) 9 (6-14) Blood Urea Nitrogen 15 mg/dL (8-26) 27 mg/dL (8-26) Creatinine 0.9 mg/dL (0.7-1.3) 1.0 mg/dL (0.7-1.3) Estimated GFR (Cockcroft-Gault) 84.7 75.0 Glucose Level 211 mg/dL (70-99) 183 mg/dL (70-99) Calcium Level 8.6 mg/dL (8.5-10.1) 8.4 mg/dL (8.5-10.1) CSF Color Colorless CSF Clarity Clear CSF WBC 13 /cmm (Not Established) CSF RBC 7 /cmm (Not Established) CSF Mononuclear WBCs % 98 % CSF Polynuclear WBCs (%) 2 % CSF Glucose 76 mg/dL (37-70) CSF Total Protein 86.4 mg/dL (15.0-45.0) Treponema pallidum Antibody Nonreactive (Nonreactive) Cytomegalovirus IgG Antibody <0.60 U/mL (0.00-0.59) Cytomegalovirus IgM Antibody <30.0 AU/mL (0.0-29.9) HIV (1&2) Antibody Screen Nonreactive (Nonreactive) Mycoplasma Serology (LAB) Negative (NEGATIVE) Segmented Neutrophils % 93 % (35-66) Lymphocytes % 3 % (24-48) Monocytes % 4 % (0-10) Toxic Granulation Slight Platelet Estimate Adequate (ADEQUATE) Low Molecular Weight Heparin 0.49 IU/mL Laboratory Tests Test 09/06/18 00:55 White Blood Count 12.5 x10^3/uL (4.0-11.0) Red Blood Count 4.68 x10^6/uL (4.30-5.70) Hemoglobin 13.8 g/dL (13.0-17.5) Hematocrit 41.8 % (39.0-53.0) Mean Corpuscular Volume 89 fL (79-100) Mean Corpuscular Hemoglobin 30 pg (25-35) Mean Corpuscular Hemoglobin Concent 33 g/dL (31-37) Red Cell Distribution Width 14.1 % (11.5-14.5) Platelet Count 216 x10^3/uL (140-400) Neutrophils (%) (Auto) 92 % (31-73) Lymphocytes (%) (Auto) 5 % (24-48) Monocytes (%) (Auto) 2 % (0-9) Eosinophils (%) (Auto) 0 % (0-3) Basophils (%) (Auto) 0 % (0-3) Neutrophils # (Auto) 11.5 x10^3uL (1.8-7.7) Lymphocytes # (Auto) 0.6 x10^3/uL (1.0-4.8) Monocytes # (Auto) 0.3 x10^3/uL (0.0-1.1) Eosinophils # (Auto) 0.0 x10^3/uL (0.0-0.7) Basophils # (Auto) 0.0 x10^3/uL (0.0-0.2) Segmented Neutrophils % 93 % (35-66) Lymphocytes % 3 % (24-48) Monocytes % 4 % (0-10) Toxic Granulation Slight Platelet Estimate Adequate (ADEQUATE) Sodium Level 139 mmol/L (136-145) Potassium Level 4.2 mmol/L (3.5-5.1) Chloride Level 105 mmol/L (98-107) Carbon Dioxide Level 25 mmol/L (21-32) Anion Gap 9 (6-14) Blood Urea Nitrogen 27 mg/dL (8-26) Creatinine 1.0 mg/dL (0.7-1.3) Estimated GFR (Cockcroft-Gault) 75.0 Glucose Level 183 mg/dL (70-99) Calcium Level 8.4 mg/dL (8.5-10.1) Low Molecular Weight Heparin 0.49 IU/mL Microbiology 09/05/18 CSF Gram Stain - Final, Complete 09/03/18 Urine Culture - Final, Complete 09/03/18 Urine Culture Result 1 (LUIS M) - Final, Complete Medications Current Medications Gadobutrol (Gadavist) 10 mmol 1X ONCE IV Last administered on 09/03/18at 15:35 ; Start 09/03/18 at 15:15; Stop 09/03/18 at 15:16; Status DC Aspirin (Ecotrin) 81 mg DAILYWBKFT PO Last administered on 09/06/18at 08:34; Start 09/03/18 at 16:30 Docusate Sodium (Colace) 100 mg PRN DAILY PRN PO HARD STOOLS; Start 09/03/18 at 15:30 Tamsulosin HCl (Flomax) 0.4 mg BID PO Last administered on 09/06/18at 08:34; Start 09/03/18 at 21:00 Non-Formulary Medication (Amlodipine/ Valsartan (Exforge 10-320 Mg Tablet)) 1 tab DAILY PO ; Start 09/04/18 at 09:00; Status UNV Metoprolol Succinate (Toprol Xl) 50 mg DAILY PO Last administered on 09/06/18at 08:37; Start 09/03/18 at 16:30 Polyethylene Glycol (miraLAX PACKET) 17 gm PRN DAILY PRN PO CONSTIPATION 2ND CHOICE; Start 09/04/18 at 09:00 Atorvastatin Calcium (Lipitor) 40 mg QHS PO Last administered on 09/05/18at 21: 01; Start 09/03/18 at 21:00; Stop 09/06/18 at 15:52; Status DC Oxycodone/ Acetaminophen (Percocet 5/325) 1 tab PRN Q4HRS PRN PO PAIN; Start at 15:30; Stop 09/03/18 at 17:31; Status DC Amlodipine Besylate (Norvasc) 10 mg DAILY PO Last administered on 09/06/18at 08: 37; Start 09/03/18 at 16:30 Losartan Potassium (Cozaar) 100 mg DAILY PO Last administered on 09/06/18at 08: 37; Start 09/03/18 at 16:30 Oxycodone/ Acetaminophen (Percocet 5/325) 1 tab PRN Q6HRS PRN PO MODERATE PAIN Last administered on 09/04/18at 11:07; Start 09/03/18 at 17:30; Stop 09/04/18 at 13:35; Status DC Ciprofloxacin (Cipro) 500 mg BID PO Last administered on 09/05/18at 08:27; Start 09/03/18 at 21:00; Stop 09/05/18 at 13:20; Status DC Oxycodone/ Acetaminophen (Percocet 5/325) 2 tab PRN Q6HRS PRN PO SEVERE PAIN; Start 09/03/18 at 17:45 Acetaminophen (Tylenol) 650 mg PRN Q4HRS PRN PO MILD PAIN Last administered on 09/03/18at 21:01; Start 09/03/18 at 18:45 Enoxaparin Sodium (Lovenox 120mg Syringe) 120 mg Q12HR SQ Last administered on 09/04/18at 07:55; Start 09/04/18 at 09:00; Stop 09/04/18 at 15:42; Status DC Methylprednisolone (Medrol) 8 mg BID PO Last administered on 09/04/18at 11:06; Start 09/04/18 at 10:00; Stop 09/04/18 at 13:28; Status DC Methylprednisolone (Medrol) 4 mg BIDPCLD PO ; Start 09/04/18 at 12:30; Stop at 13:28; Status DC Methylprednisolone (Medrol) 4 mg TIDPC PO ; Start 09/05/18 at 08:30; Stop at 08:30; Status DC Methylprednisolone (Medrol) 8 mg QHS PO ; Start 09/05/18 at 21:00; Stop at 21:00; Status DC Methylprednisolone (Medrol) 4 mg QIDAFTMEAL PO ; Start 09/06/18 at 09:00; Stop 09/06/18 at 09:00; Status DC Methylprednisolone (Medrol) 4 mg TID PO ; Start 09/07/18 at 09:00; Stop at 09:00; Status DC Methylprednisolone (Medrol) 4 mg BID PO ; Start 09/08/18 at 09:00; Stop at 09:00; Status DC Methylprednisolone (Medrol) 4 mg DAILY PO ; Start 09/09/18 at 09:00; Stop at 09:00; Status DC Pantoprazole Sodium (Protonix) 40 mg DAILYAC PO Last administered on 09/06/18at 05:50; Start 09/04/18 at 10:00 Bisacodyl (Dulcolax Tab) 10 mg DAILY PO ; Start 09/04/18 at 10:00 Bisacodyl (Dulcolax Supp) 10 mg PRN DAILY PRN [place] CONSTIPATION 1ST RECTAL CHOICE Last administered on 09/04/18at 19:38; Start 09/04/18 at 09:30 Docusate Sodium (Enemeez) 283 mg PRN DAILY PRN [place] CONSTIPATION 2ND RECTAL CHOICE; Start 09/04/18 at 09:30 Gadobutrol (Gadavist) 10 mmol 1X ONCE IV Last administered on 09/04/18at 13:26 ; Start 09/04/18 at 13:30; Stop 09/04/18 at 13:31; Status DC Methylprednisolone Sodium Succinate (SOLU-Medrol 125MG VIAL) 500 mg BID IV ; Start 09/04/18 at 21:00; Status UNV Methylprednisolone Sodium Succinate 500 mg/Sodium Chloride 100 ml @ 100 mls/hr Q12HR IV Last administered on 09/06/18at 08:38; Start 09/04/18 at 21:00 Methylprednisolone Sodium Succinate 500 mg/Sodium Chloride 100 ml @ 100 mls/hr Q12HR IV ; Start 09/04/18 at 21:00; Status Cancel Oxycodone/ Acetaminophen (Percocet 5/325) 1 tab PRN Q4HRS PRN PO MODERATE PAIN Last administered on 09/06/18at 15:24; Start 09/04/18 at 13:45 Hydrocortisone Acetate (Anucort-Hc) 25 mg PRN DAILY PRN [place] RECTAL PAIN; Start 09/04/18 at 13:30 Enoxaparin Sodium (Lovenox 120mg Syringe) 110 mg Q12HR SQ Last administered on 09/05/18at 21:35; Start 09/04/18 at 21:00; Stop 09/06/18 at 06:49; Status DC Lactobacillus Rhamnosus (Culturelle) 1 cap BID PO Last administered on 08:33; Start 09/04/18 at 21:00 Cefepime HCl (Maxipime) 2 gm Q8HRS IVP Last administered on 09/06/18 15:13; Start 09/05/18 at 14:00 Vancomycin HCl (Vancomycin Oral Solution) 125 mg BID PO Last administered on 08:33; Start 09/05/18 at 21:00 Acyclovir Sodium 750 mg/Dextrose 265 ml @ 265 mls/hr Q8HRS IV Last administered on 09/06/18 15:12; Start 09/05/18 at 14:00 Doxycycline Hyclate (Vibra-Tab) 100 mg BID PO Last administered on 09/06/18 08 :34; Start 09/05/18 at 21:00 Info (Anti-Coagulation Monitoring By Pharmacy) 1 each PRN DAILY PRN MC SEE COMMENTS Last administered on 09/05/18at 13:48; Start 09/05/18 at 14:00 Enoxaparin Sodium (Lovenox 120mg Syringe) 120 mg Q12HR SQ ; Start 09/06/18 at 06 :49; Status Cancel Enoxaparin Sodium (Lovenox 120mg Syringe) 120 mg Q12HR SQ Last administered on 09/06/18 08:39; Start 09/06/18 at 09:00 Cetirizine HCl (ZyrTEC) 10 mg DAILY PO Last administered on 09/06/18 15:12; Start 09/04/18 at 11:00; Stop 09/06/18 at 15:53; Status DC Insulin Human Lispro (HumaLOG) 0-7 UNITS TIDWMEALS SQ ; Start 09/06/18 at 17:00 Dextrose (Dextrose 50%-Water Syringe) 12.5 gm PRN Q15MIN PRN IV SEE COMMENTS; Start 09/06/18 at 12:30 Multivitamins (Thera M Plus) 1 tab DAILY PO Last administered on 09/06/18 15: 12; Start 09/06/18 at 14:00 Calcium Carbonate/ Glycine (Oscal) 500 mg DAILY PO Last administered on 15:12; Start 09/06/18 at 14:00 Thiamine Mononitrate (Vitamin B-1) 100 mg DAILY PO Last administered on at 15:12; Start 09/06/18 at 14:00 Cetirizine HCl (ZyrTEC) 10 mg DAILY PO Last administered on 09/06/18at 15:12; Start 09/06/18 at 15:00 Active Scripts Active Cipro (Ciprofloxacin Hcl) 500 Mg Tablet 1 Tab PO BID Aspirin Ec (Aspirin) 81 Mg Tablet.dr 81 Mg PO DAILYWBKFT 30 Days Colace (Docusate Sodium) 100 Mg Capsule 100 Mg PO PRN DAILY PRN 30 Days Polyethylene Glycol 3350 17 Gm Powd.pack 17 Gm PO PRN DAILY PRN 14 Days Flomax (Tamsulosin Hcl) 0.4 Mg Cap.er.24h 0.4 Mg PO BID 30 Days Reported Percocet 5-325 Mg Tablet (Oxycodone/Acetaminophen) 1 Each Tablet 1-2 Tab PO Q4-6HRS Exforge 10-320 Mg Tablet (Amlodipine/Valsartan) 1 Each Tablet 1 Tab PO DAILY Crestor (Rosuvastatin Calcium) 10 Mg Tablet 1 Tab PO DAILY Toprol Xl (Metoprolol Succinate) 50 Mg Tab.er.24h 1 Tab PO DAILY Vitals/I & O Vital Sign - Last 24 Hours 09/05/18 09/05/18 09/05/18 09/06/18 19:20 20:00 23:15 03:19 Temp 98.0 98.0 97.3 98.0 98.0 97.3 Pulse 73 69 87 Resp 18 20 18 B/P (MAP) 135/73 (93) 121/79 (93) 123/72 (89) Pulse Ox 94 93 94 O2 Delivery Room Air Room Air Room Air Room Air 09/06/18 09/06/18 09/06/18 09/06/18 05:50 06:50 07:00 08:00 Temp 97.7 97.7 Pulse 98 Resp 18 B/P (MAP) 139/94 (109) Pulse Ox 96 O2 Delivery Room Air Room Air Room Air Room Air 09/06/18 09/06/18 09/06/18 09/06/18 08:37 08:37 08:37 11:00 Temp 98.2 98.2 Pulse 98 98 98 87 Resp 16 B/P (MAP) 138/94 138/94 138/94 124/75 (91) Pulse Ox 94 O2 Delivery Room Air 09/06/18 09/06/18 15:00 15:24 Temp 98.1 98.1 Pulse 77 Resp 16 B/P (MAP) 120/74 (89) Pulse Ox 95 O2 Delivery Room Air Room Air Intake and Output 09/05/18 09/05/18 09/06/18 15:00 23:00 07:00 Intake Total 100 ml 540 ml Output Total 1100 ml 600 ml Balance -1100 ml 100 ml -60 ml GALILEA MOREIRA MD Sep 06, 2018 16:34
[2018-09-06] MEDS: ANTI-COAG MONITOR BY PHARMACY. MC PRN (16:44)
[2018-09-06] MEDS ORDERED: RIVAROXABAN 15 MG TABLET. PO SCH (17:00)
[2018-09-06] MEDS: INSULIN LISPRO 300 UNITS/3 ML INSULN.PEN. SQ SCH (17:29)
[2018-09-06 19:00] VITALS: BP 137/71
[2018-09-06 23:00] VITALS: BP 134/68
[2018-09-07 03:00] VITALS: BP 135/76
[2018-09-07 04:58] LABS: BASO % 0 % (0-3); EOS % 0 % (0-3); HEMATOCRIT 40.3 % (39.0-53.0); HEMOGLOBIN 13.2 g/dL (13.0-17.5); LYMPH # 0.5 x10^3/uL (1.0-4.8); LYMPH % 5 % (24-48); MEAN CORPUSCULAR HEMOGLOBIN 30 pg (25-35); MEAN CORPUSCULAR HGB CONC 33 g/dL (31-37); MEAN CORPUSCULAR VOLUME 90 fL (79-100); MONO # 0.2 x10^3/uL (0.0-1.1); MONO % 2 % (0-9); NEUT # 9.4 x10^3uL (1.8-7.7); NEUT % 93 % (31-73); PLATELET COUNT 208 x10^3/uL (140-400); RED BLOOD COUNT 4.49 x10^6/uL (4.30-5.70); RED CELL DISTRIBUTION WIDTH 14.1 % (11.5-14.5); WHITE BLOOD COUNT 10.1 x10^3/uL (4.0-11.0)
[2018-09-07] MEDS: oxyCODONE/APAP 5/325 1 TAB TABLET PO PRN ×4 (05:01→21:11)
[2018-09-07] MEDS: ACYCLOVIR SODIUM IV SCH ×3 (05:01→22:28)
[2018-09-07] MEDS: CEFEPIME HCL IV Push 2 GM VIAL. IVP SCH ×3 (05:01→22:27)
[2018-09-07] MEDS: DEXTROSE 5% IV SCH ×3 (05:01→22:28)
[2018-09-07 05:13] LABS: CALCIUM 8.5 mg/dL (8.5-10.1); CREATININE 0.9 mg/dL (0.7-1.3); GFR 84.7; POTASSIUM 3.9 mmol/L (3.5-5.1)
[2018-09-07 07:00] VITALS: BP 131/74
[2018-09-07] MEDS: INSULIN LISPRO 300 UNITS/3 ML INSULN.PEN. SQ SCH ×3 (08:50→17:13)
[2018-09-07] MEDS: ASPIRIN ENTERIC COATED 81 MG TABLET.DR. PO SCH (09:00)
[2018-09-07] MEDS: THIAMINE 100 MG TABLET. PO SCH (09:00)
[2018-09-07] MEDS ORDERED: methylPREDNISolone 4 MG TABLET. PO SCH (09:00)
[2018-09-07] MEDS: BISACODYL 5 MG TABLET.DR. PO SCH (09:00)
[2018-09-07] MEDS: LACTOBACILLUS RHAMNOSUS GG 1 CAPSULE. PO SCH ×2 (09:00→20:54)
[2018-09-07] MEDS: CETIRIZINE HCL 10 MG TABLET. PO SCH (09:00)
[2018-09-07] MEDS: CALCIUM CARBONATE 500 MG TABLET PO SCH (09:01)
[2018-09-07] MEDS: LOSARTAN POTASSIUM 50 MG TABLET. PO SCH (09:02)
[2018-09-07] MEDS: TAMSULOSIN 0.4 MG CAP.ER.24H. PO SCH ×2 (09:03→20:54)
[2018-09-07] MEDS: METOPROLOL SUCC 24HR ER 50 MG TAB.ER.24H. PO SCH (09:03)
[2018-09-07] MEDS: amLODIPine BESYLATE 10 MG TABLET PO SCH (09:03)
[2018-09-07] MEDS: PANTOPRAZOLE 40 MG TABLET.DR. PO SCH (09:05)
[2018-09-07] MEDS: MULTIVITAMIN with MINERAL TABLET. PO SCH (09:05)
[2018-09-07] MEDS: VANCOMYCIN 125 MG/2.5 ML ORAL SOLUTION. PO SCH ×2 (09:05→20:54)
[2018-09-07] MEDS: DOXYCYCLINE HYCLATE 100 MG TABLET PO SCH ×2 (09:06→20:54)
[2018-09-07 10:21] LABS: HERPES SIMPLEX TYPE 1 Negative (Negative); HERPES SIMPLEX TYPE 2 Negative (Negative)
[2018-09-07] MEDS: methylPREDNISolone SOD SUCC 500 MG in IV NORMAL SALINE 100ML 100 ML IV SCH ×2 (10:36→20:55)
[2018-09-07 11:00] VITALS: BP 127/71
--- NOTE | 2018-09-07 11:07 | PDOC ---
PROGRESS NOTES Subjective Subjective No new complaints. Objective Objective Vital Signs Date Time Temp Pulse Resp B/P (MAP) Pulse Ox O2 Delivery O2 Flow Rate FiO2 09/07/18 10:07 Room Air 09/07/18 09:03 90 131/74 09/07/18 07:00 98.5 18 93 98.5 Intake and Output 09/07/18 06:59 Intake Total 750 ml Output Total 1000 ml Balance -250 ml Intake Oral 120 ml IV Total 630 ml Output Urine Total 1000 ml # Voids 3 Physical Exam Physical Exam No change with his paraparesis and neurogenic bladder and he continues to require help with bed mobility. Plan Plan of Care To continue present physical and occupational therapy follow up as tolerated. Comment Review of Relevant I have reviewed the following items franc (where applicable) has been applied. Labs Laboratory Tests Test 09/05/18 13:15 09/05/18 15:08 09/06/18 00:55 09/06/18 16:52 Herpes Simplex Virus I DNA (PCR) Negative (Negative) Herpes Simplex Virus II DNA (PCR) Negative (Negative) Treponema pallidum Antibody Nonreactive (Nonreactive) Cytomegalovirus IgG Antibody <0.60 U/mL (0.00-0.59) Cytomegalovirus IgM Antibody <30.0 AU/mL (0.0-29.9) HIV (1&2) Antibody Screen Nonreactive (Nonreactive) Mycoplasma Serology (LAB) Negative (NEGATIVE) White Blood Count 12.5 x10^3/uL (4.0-11.0) Red Blood Count 4.68 x10^6/uL (4.30-5.70) Hemoglobin 13.8 g/dL (13.0-17.5) Hematocrit 41.8 % (39.0-53.0) Mean Corpuscular Volume 89 fL (79-100) Mean Corpuscular Hemoglobin 30 pg (25-35) Mean Corpuscular Hemoglobin Concent 33 g/dL (31-37) Red Cell Distribution Width 14.1 % (11.5-14.5) Platelet Count 216 x10^3/uL (140-400) Neutrophils (%) (Auto) 92 % (31-73) Lymphocytes (%) (Auto) 5 % (24-48) Monocytes (%) (Auto) 2 % (0-9) Eosinophils (%) (Auto) 0 % (0-3) Basophils (%) (Auto) 0 % (0-3) Neutrophils # (Auto) 11.5 x10^3uL (1.8-7.7) Lymphocytes # (Auto) 0.6 x10^3/uL (1.0-4.8) Monocytes # (Auto) 0.3 x10^3/uL (0.0-1.1) Eosinophils # (Auto) 0.0 x10^3/uL (0.0-0.7) Basophils # (Auto) 0.0 x10^3/uL (0.0-0.2) Segmented Neutrophils % 93 % (35-66) Lymphocytes % 3 % (24-48) Monocytes % 4 % (0-10) Toxic Granulation Slight Platelet Estimate Adequate (ADEQUATE) Sodium Level 139 mmol/L (136-145) Potassium Level 4.2 mmol/L (3.5-5.1) Chloride Level 105 mmol/L (98-107) Carbon Dioxide Level 25 mmol/L (21-32) Anion Gap 9 (6-14) Blood Urea Nitrogen 27 mg/dL (8-26) Creatinine 1.0 mg/dL (0.7-1.3) Estimated GFR (Cockcroft-Gault) 75.0 Glucose Level 183 mg/dL (70-99) Calcium Level 8.4 mg/dL (8.5-10.1) Low Molecular Weight Heparin 0.49 IU/mL Immunoglobulin A 334 mg/dL (61-437) Glucose (Fingerstick) 177 mg/dL (70-99) Test 09/07/18 03:20 09/07/18 08:06 White Blood Count 10.1 x10^3/uL (4.0-11.0) Red Blood Count 4.49 x10^6/uL (4.30-5.70) Hemoglobin 13.2 g/dL (13.0-17.5) Hematocrit 40.3 % (39.0-53.0) Mean Corpuscular Volume 90 fL (79-100) Mean Corpuscular Hemoglobin 30 pg (25-35) Mean Corpuscular Hemoglobin Concent 33 g/dL (31-37) Red Cell Distribution Width 14.1 % (11.5-14.5) Platelet Count 208 x10^3/uL (140-400) Neutrophils (%) (Auto) 93 % (31-73) Lymphocytes (%) (Auto) 5 % (24-48) Monocytes (%) (Auto) 2 % (0-9) Eosinophils (%) (Auto) 0 % (0-3) Basophils (%) (Auto) 0 % (0-3) Neutrophils # (Auto) 9.4 x10^3uL (1.8-7.7) Lymphocytes # (Auto) 0.5 x10^3/uL (1.0-4.8) Monocytes # (Auto) 0.2 x10^3/uL (0.0-1.1) Eosinophils # (Auto) 0.0 x10^3/uL (0.0-0.7) Basophils # (Auto) 0.0 x10^3/uL (0.0-0.2) Sodium Level 137 mmol/L (136-145) Potassium Level 3.9 mmol/L (3.5-5.1) Chloride Level 102 mmol/L (98-107) Carbon Dioxide Level 24 mmol/L (21-32) Anion Gap 11 (6-14) Blood Urea Nitrogen 32 mg/dL (8-26) Creatinine 0.9 mg/dL (0.7-1.3) Estimated GFR (Cockcroft-Gault) 84.7 Glucose Level 133 mg/dL (70-99) Calcium Level 8.5 mg/dL (8.5-10.1) Glucose (Fingerstick) 165 mg/dL (70-99) Laboratory Tests Test 09/06/18 16:52 09/07/18 03:20 09/07/18 08:06 Glucose (Fingerstick) 177 mg/dL (70-99) 165 mg/dL (70-99) White Blood Count 10.1 x10^3/uL (4.0-11.0) Red Blood Count 4.49 x10^6/uL (4.30-5.70) Hemoglobin 13.2 g/dL (13.0-17.5) Hematocrit 40.3 % (39.0-53.0) Mean Corpuscular Volume 90 fL (79-100) Mean Corpuscular Hemoglobin 30 pg (25-35) Mean Corpuscular Hemoglobin Concent 33 g/dL (31-37) Red Cell Distribution Width 14.1 % (11.5-14.5) Platelet Count 208 x10^3/uL (140-400) Neutrophils (%) (Auto) 93 % (31-73) Lymphocytes (%) (Auto) 5 % (24-48) Monocytes (%) (Auto) 2 % (0-9) Eosinophils (%) (Auto) 0 % (0-3) Basophils (%) (Auto) 0 % (0-3) Neutrophils # (Auto) 9.4 x10^3uL (1.8-7.7) Lymphocytes # (Auto) 0.5 x10^3/uL (1.0-4.8) Monocytes # (Auto) 0.2 x10^3/uL (0.0-1.1) Eosinophils # (Auto) 0.0 x10^3/uL (0.0-0.7) Basophils # (Auto) 0.0 x10^3/uL (0.0-0.2) Sodium Level 137 mmol/L (136-145) Potassium Level 3.9 mmol/L (3.5-5.1) Chloride Level 102 mmol/L (98-107) Carbon Dioxide Level 24 mmol/L (21-32) Anion Gap 11 (6-14) Blood Urea Nitrogen 32 mg/dL (8-26) Creatinine 0.9 mg/dL (0.7-1.3) Estimated GFR (Cockcroft-Gault) 84.7 Glucose Level 133 mg/dL (70-99) Calcium Level 8.5 mg/dL (8.5-10.1) Microbiology 09/05/18 CSF Gram Stain - Final, Complete 09/03/18 Urine Culture - Final, Complete 09/03/18 Urine Culture Result 1 (LUIS M) - Final, Complete Medications Current Medications Gadobutrol (Gadavist) 10 mmol 1X ONCE IV Last administered on 09/03/18at 15:35 ; Start 09/03/18 at 15:15; Stop 09/03/18 at 15:16; Status DC Aspirin (Ecotrin) 81 mg DAILYWBKFT PO Last administered on 09/07/18at 09:00; Start 09/03/18 at 16:30 Docusate Sodium (Colace) 100 mg PRN DAILY PRN PO HARD STOOLS; Start 09/03/18 at 15:30 Tamsulosin HCl (Flomax) 0.4 mg BID PO Last administered on 09/07/18 09:03; Start 09/03/18 at 21:00 Non-Formulary Medication (Amlodipine/ Valsartan (Exforge 10-320 Mg Tablet)) 1 tab DAILY PO ; Start 09/04/18 at 09:00; Status UNV Metoprolol Succinate (Toprol Xl) 50 mg DAILY PO Last administered on 09/07/18 09:03; Start 09/03/18 at 16:30 Polyethylene Glycol (miraLAX PACKET) 17 gm PRN DAILY PRN PO CONSTIPATION 2ND CHOICE; Start 09/04/18 at 09:00 Atorvastatin Calcium (Lipitor) 40 mg QHS PO Last administered on 09/05/18 21: 01; Start 09/03/18 at 21:00; Stop 09/06/18 at 15:52; Status DC Oxycodone/ Acetaminophen (Percocet 5/325) 1 tab PRN Q4HRS PRN PO PAIN; Start at 15:30; Stop 09/03/18 at 17:31; Status DC Amlodipine Besylate (Norvasc) 10 mg DAILY PO Last administered on 09/07/18 09: 03; Start 09/03/18 at 16:30 Losartan Potassium (Cozaar) 100 mg DAILY PO Last administered on 09/07/18at 09: 02; Start 09/03/18 at 16:30 Oxycodone/ Acetaminophen (Percocet 5/325) 1 tab PRN Q6HRS PRN PO MODERATE PAIN Last administered on 09/04/18at 11:07; Start 09/03/18 at 17:30; Stop 09/04/18 at 13:35; Status DC Ciprofloxacin (Cipro) 500 mg BID PO Last administered on 09/05/18at 08:27; Start 09/03/18 at 21:00; Stop 09/05/18 at 13:20; Status DC Oxycodone/ Acetaminophen (Percocet 5/325) 2 tab PRN Q6HRS PRN PO SEVERE PAIN; Start 09/03/18 at 17:45 Acetaminophen (Tylenol) 650 mg PRN Q4HRS PRN PO MILD PAIN Last administered on 09/03/18at 21:01; Start 09/03/18 at 18:45 Enoxaparin Sodium (Lovenox 120mg Syringe) 120 mg Q12HR SQ Last administered on 09/04/18at 07:55; Start 09/04/18 at 09:00; Stop 09/04/18 at 15:42; Status DC Methylprednisolone (Medrol) 8 mg BID PO Last administered on 09/04/18at 11:06; Start 09/04/18 at 10:00; Stop 09/04/18 at 13:28; Status DC Methylprednisolone (Medrol) 4 mg BIDPCLD PO ; Start 09/04/18 at 12:30; Stop at 13:28; Status DC Methylprednisolone (Medrol) 4 mg TIDPC PO ; Start 09/05/18 at 08:30; Stop at 08:30; Status DC Methylprednisolone (Medrol) 8 mg QHS PO ; Start 09/05/18 at 21:00; Stop at 21:00; Status DC Methylprednisolone (Medrol) 4 mg QIDAFTMEAL PO ; Start 09/06/18 at 09:00; Stop 09/06/18 at 09:00; Status DC Methylprednisolone (Medrol) 4 mg TID PO ; Start 09/07/18 at 09:00; Stop at 09:00; Status DC Methylprednisolone (Medrol) 4 mg BID PO ; Start 09/08/18 at 09:00; Stop at 09:00; Status DC Methylprednisolone (Medrol) 4 mg DAILY PO ; Start 09/09/18 at 09:00; Stop at 09:00; Status DC Pantoprazole Sodium (Protonix) 40 mg DAILYAC PO Last administered on 09/07/18at 09:05; Start 09/04/18 at 10:00 Bisacodyl (Dulcolax Tab) 10 mg DAILY PO ; Start 09/04/18 at 10:00 Bisacodyl (Dulcolax Supp) 10 mg PRN DAILY PRN [place] CONSTIPATION 1ST RECTAL CHOICE Last administered on 09/04/18at 19:38; Start 09/04/18 at 09:30 Docusate Sodium (Enemeez) 283 mg PRN DAILY PRN [place] CONSTIPATION 2ND RECTAL CHOICE; Start 09/04/18 at 09:30 Gadobutrol (Gadavist) 10 mmol 1X ONCE IV Last administered on 09/04/18 13:26 ; Start 09/04/18 at 13:30; Stop 09/04/18 at 13:31; Status DC Methylprednisolone Sodium Succinate (SOLU-Medrol 125MG VIAL) 500 mg BID IV ; Start 09/04/18 at 21:00; Status UNV Methylprednisolone Sodium Succinate 500 mg/Sodium Chloride 100 ml @ 100 mls/hr Q12HR IV Last administered on 09/07/18 10:36; Start 09/04/18 at 21:00 Methylprednisolone Sodium Succinate 500 mg/Sodium Chloride 100 ml @ 100 mls/hr Q12HR IV ; Start 09/04/18 at 21:00; Status Cancel Oxycodone/ Acetaminophen (Percocet 5/325) 1 tab PRN Q4HRS PRN PO MODERATE PAIN Last administered on 09/07/18 09:07; Start 09/04/18 at 13:45 Hydrocortisone Acetate (Anucort-Hc) 25 mg PRN DAILY PRN [place] RECTAL PAIN; Start 09/04/18 at 13:30 Enoxaparin Sodium (Lovenox 120mg Syringe) 110 mg Q12HR SQ Last administered on 09/05/18 21:35; Start 09/04/18 at 21:00; Stop 09/06/18 at 06:49; Status DC Lactobacillus Rhamnosus (Culturelle) 1 cap BID PO Last administered on 09:00; Start 09/04/18 at 21:00 Cefepime HCl (Maxipime) 2 gm Q8HRS IVP Last administered on 09/07/18 05:01; Start 09/05/18 at 14:00 Vancomycin HCl (Vancomycin Oral Solution) 125 mg BID PO Last administered on 09:05; Start 09/05/18 at 21:00 Acyclovir Sodium 750 mg/Dextrose 265 ml @ 265 mls/hr Q8HRS IV Last administered on 09/07/18 05:01; Start 09/05/18 at 14:00 Doxycycline Hyclate (Vibra-Tab) 100 mg BID PO Last administered on 09/07/18 09 :06; Start 09/05/18 at 21:00 Info (Anti-Coagulation Monitoring By Pharmacy) 1 each PRN DAILY PRN MC SEE COMMENTS Last administered on 3/29/19at 16:44; Start 09/05/18 at 14:00 Enoxaparin Sodium (Lovenox 120mg Syringe) 120 mg Q12HR SQ ; Start 09/06/18 at 06 :49; Status Cancel Enoxaparin Sodium (Lovenox 120mg Syringe) 120 mg Q12HR SQ Last administered on 09/06/18 08:39; Start 09/06/18 at 09:00; Stop 09/06/18 at 16:44; Status DC Cetirizine HCl (ZyrTEC) 10 mg DAILY PO Last administered on 09/06/18at 15:12; Start 09/04/18 at 11:00; Stop 09/06/18 at 15:53; Status DC Insulin Human Lispro (HumaLOG) 0-7 UNITS TIDWMEALS SQ Last administered on 09/07 08:50; Start 09/06/18 at 17:00 Dextrose (Dextrose 50%-Water Syringe) 12.5 gm PRN Q15MIN PRN IV SEE COMMENTS; Start 09/06/18 at 12:30 Multivitamins (Thera M Plus) 1 tab DAILY PO Last administered on 09/07/18at 09: 05; Start 09/06/18 at 14:00 Calcium Carbonate/ Glycine (Oscal) 500 mg DAILY PO Last administered on 09:01; Start 09/06/18 at 14:00 Thiamine Mononitrate (Vitamin B-1) 100 mg DAILY PO Last administered on at 09:00; Start 09/06/18 at 14:00 Cetirizine HCl (ZyrTEC) 10 mg DAILY PO Last administered on 09/06/18at 15:12; Start 09/06/18 at 15:00 Rivaroxaban (Xarelto) 15 mg BIDWMEALS PO Last administered on 09/06/18at 17:23; Start 09/06/18 at 17:00; Stop 09/07/18 at 08:22; Status DC Active Scripts Active Cipro (Ciprofloxacin Hcl) 500 Mg Tablet 1 Tab PO BID Aspirin Ec (Aspirin) 81 Mg Tablet. 81 Mg PO DAILYWBKFT 30 Days Colace (Docusate Sodium) 100 Mg Capsule 100 Mg PO PRN DAILY PRN 30 Days Polyethylene Glycol 3350 17 Gm Powd.pack 17 Gm PO PRN DAILY PRN 14 Days Flomax (Tamsulosin Hcl) 0.4 Mg Cap.er.24h 0.4 Mg PO BID 30 Days Reported Percocet 5-325 Mg Tablet (Oxycodone/Acetaminophen) 1 Each Tablet 1-2 Tab PO Q4-6HRS Exforge 10-320 Mg Tablet (Amlodipine/Valsartan) 1 Each Tablet 1 Tab PO DAILY Crestor (Rosuvastatin Calcium) 10 Mg Tablet 1 Tab PO DAILY Toprol Xl (Metoprolol Succinate) 50 Mg Tab.er.24h 1 Tab PO DAILY Vitals/I & O Vital Sign - Last 24 Hours 09/06/18 09/06/18 09/06/18 09/06/18 15:00 15:24 19:00 19:30 Temp 98.1 97.9 98.1 97.9 Pulse 77 75 Resp 16 16 B/P (MAP) 120/74 (89) 137/71 (93) Pulse Ox 95 93 O2 Delivery Room Air Room Air Room Air Room Air 09/06/18 09/06/18 09/07/18 09/07/18 22:13 23:00 03:00 05:01 Temp 97.8 97.5 97.8 97.5 Pulse 73 71 Resp 20 16 16 20 B/P (MAP) 134/68 (90) 135/76 (95) Pulse Ox 94 94 O2 Delivery Room Air Room Air Room Air Room Air 09/07/18 09/07/18 09/07/18 09/07/18 06:01 07:00 09:02 09:03 Temp 98.5 98.5 Pulse 90 90 90 Resp 20 18 B/P (MAP) 131/74 (93) 134/74 131/74 Pulse Ox 93 O2 Delivery Room Air 09/07/18 09/07/18 09/07/18 09:03 09:07 10:07 Pulse 90 B/P (MAP) 131/74 O2 Delivery Room Air Room Air Intake and Output 09/06/18 09/06/18 09/07/18 14:59 22:59 06:59 Intake Total 265 ml 220 ml 265 ml Output Total 1000 ml Balance 265 ml 220 ml -735 ml LAMONT BASHIR MD Sep 07, 2018 11:07
--- NOTE | 2018-09-07 14:23 | PDOC ---
Infectious Disease Note Subjective Subjective Stood with physical therapy, no steps Legs feel numb, temp intact Loss of bladder/bowel control Denies F/C/S/N/V/D ROS ROS per HPI otherwise neg Vital Sign Vital Signs Vital Signs Date Time Temp Pulse Resp B/P (MAP) Pulse Ox O2 Delivery O2 Flow Rate FiO2 09/07/18 10:07 Room Air 09/07/18 09:03 90 131/74 09/07/18 07:00 98.5 18 93 98.5 Physical Exam PHYSICAL EXAM GENERAL: Sitting on the side of the bed, alert, NAD HEENT: Oropharynx clear NECK: Supple. LUNGS: Clear bilaterally. No wheezing. HEART: S1, S2. ABDOMEN: Obese, soft, NT EXTREMITIES: Bilateral trace pedal edema. NEUROLOGIC: Alert and oriented x 3. Lower extremity weakness bilaterally, SPINE: Back incision well healed, nontender. No surrounding redness or erythema. SKIN: Warm, dry. No generalized rash. PIV right hand ok Labs Lab Laboratory Tests Test 09/06/18 16:52 09/07/18 03:20 09/07/18 08:06 09/07/18 12:04 Glucose (Fingerstick) 177 mg/dL (70-99) 165 mg/dL (70-99) 130 mg/dL (70-99) White Blood Count 10.1 x10^3/uL (4.0-11.0) Red Blood Count 4.49 x10^6/uL (4.30-5.70) Hemoglobin 13.2 g/dL (13.0-17.5) Hematocrit 40.3 % (39.0-53.0) Mean Corpuscular Volume 90 fL (79-100) Mean Corpuscular Hemoglobin 30 pg (25-35) Mean Corpuscular Hemoglobin Concent 33 g/dL (31-37) Red Cell Distribution Width 14.1 % (11.5-14.5) Platelet Count 208 x10^3/uL (140-400) Neutrophils (%) (Auto) 93 % (31-73) Lymphocytes (%) (Auto) 5 % (24-48) Monocytes (%) (Auto) 2 % (0-9) Eosinophils (%) (Auto) 0 % (0-3) Basophils (%) (Auto) 0 % (0-3) Neutrophils # (Auto) 9.4 x10^3uL (1.8-7.7) Lymphocytes # (Auto) 0.5 x10^3/uL (1.0-4.8) Monocytes # (Auto) 0.2 x10^3/uL (0.0-1.1) Eosinophils # (Auto) 0.0 x10^3/uL (0.0-0.7) Basophils # (Auto) 0.0 x10^3/uL (0.0-0.2) Sodium Level 137 mmol/L (136-145) Potassium Level 3.9 mmol/L (3.5-5.1) Chloride Level 102 mmol/L (98-107) Carbon Dioxide Level 24 mmol/L (21-32) Anion Gap 11 (6-14) Blood Urea Nitrogen 32 mg/dL (8-26) Creatinine 0.9 mg/dL (0.7-1.3) Estimated GFR (Cockcroft-Gault) 84.7 Glucose Level 133 mg/dL (70-99) Calcium Level 8.5 mg/dL (8.5-10.1) Micro URINE CULTURE RES 1 Final Mixed urogenital dima GRAM STAIN,CSF Final WBCS FEW RBCS OCCASIONAL ORGANISMS NONE SEEN Objective Assessment Transverse myelitis, MRI 09/03/2018. CSF WBC 13, other studies noted , likely noninfectious -s/p LP. Opening pressure 20cm. CSF WBC 13, glucose 76, TP 86.4. No organisms seen. cx pending -HSV and HIV negative; CMV IgM <0.30. Treponema neg - HAD BEEN ON STEROIDS Cauda equina syndrome, status post surgery 06/2018. Urinary retention, neurogenic bladder, requiring straight catheterization for 2 months. UC no growth Recurrent urinary tract infection, 07/2018 pansensitive Escherichia coli, treated with ciprofloxacin. History of Clostridium difficile, 07/2018, treated, no recurrence. Status post laminectomy, 06/30/2018, L3-L5. Bilateral lower extremity weakness. Hyperlipidemia. Hypertension. Hyperglycemia. Non-occlusive thrombus, right posterior tibial and peroneal vein H/O seasonal allergies. Plan Plan of Care Acyclovir since 09/05 Cefepime and doxycycline since 09/05 p.o. vancomycin prophylaxis, b.i.d. dosing. Steroids f/u cultures/serologies Awaiting plasmaphoresis Attending Co-Sign Attending Co-Sign The patient was seen and interviewed as well as examined at the bedside. The chart was reviewed. The case was discussed. Agree with the plan of care. BEATRICE RO APRN Sep 07, 2018 14:23 MILIND GUZMAN MD Sep 07, 2018 15:26
[2018-09-07 15:00] VITALS: BP 131/71
--- NOTE | 2018-09-07 15:22 | PDOC ---
PROGRESS NOTES Assessment Assessment T9-10 transverse myelitis. Paraplegia below T10. Worsening of LE weakness. Urinary incontinence. Bowel dysfunction. Fever, recurrent intermittent in the past 3 months. Recurrent UTIs in the past 3 months. HTN. HLD. PVCs, chronic. Hypocalcemia. Lumbar spine stenosis s/p surgery. Degenerative spine and disc diseases. DVT. Obesity. RECOMMENDATIONS/PLAN: IV Solu-Medrol 500 mg IV bid x 5 days till Sunday. Plasma exchange thereafter. Consulted Nephrology. Lab: [facility], outpatient [place]. Monitoring BP, HR, CBC, glucose level and signs of GI bleeding. Treat medical diseases. Consulted ID. Ca++ supplement. Vit B1 100 mg daily. OT/PT. Discussed with his at bedside on 09/07/18. Brain MRI w/wo contrast: Unremarkable. CSF on 09/05/18: WBC 13, mono 98%, RBC 7. Protein 86.4, glucose 76. Gram stain: no organism seen. TSH: 1.83, B12 1152. CK 48. ESR 24, CRP 39.9. HISTORY OF THE PRESENT ILLNESS: This is a 63-year-old male patient with past medical history of Equina syndrome since 06/2018 and had surgery on or about 06/28/2018. He stated he uses Parker cath about 4 times a day since due to urinary retention and he had frequent UTIs. He stated he had fever comes and goes in the past 2 to 3 months. He stated he felt decreased sensation from his lower abdomen down to feet and weakness in LE, but unable to ambulate in the past 3 days except bed resting. He stated he also had feelings of tingling and numbness in his thighs and side of his abdomen and feelings of unsteadiness and generalized weakness in his lower extremities as well as urinary retention since 06/28/18. After L-spine surgery, his urinary retention still existed, but hiw weakness in Le improved and he was able to walk with a walker at home. But his weakness became worse for a week then was unable to move his LE for about 2 to 3 days kept in bed before this admission. He stated on 09/05/18 that PT/OT may make his weakness worse due to tiredness. He stated on 09/06/18 he was able to move his feet from side to side and up and down. He stated on 09/07/18 he was able to move his feet from side to side and up and down more easily then 2 days ago, but still unable to lift leg up. Past Medical History Cardiovascular: HTN, Hyperlipidemia. Pulmonary: No pertinent hx CENTRAL NERVOUS SYSTEM: Periperal neuropathy GI: No pertinent hx Heme/Onc: No pertinent hx Hepatobiliary: No pertinent hx, Cholelithiasis Psych: No pertinent hx Rheumatologic: No pertinent hx Infectious disease: No pertinent hx Renal/: No pertinent hx Endocrine: No pertinent hx Past Surgical History Lumbar spinal stenosis, L3-L4. Lateral recess stenosis without epidural abscess , L5-S1. Lumbar laminectomy, L3-L4, L5-S1 with decompression of dura and nerve root. Cholecystectomy, Hip Replacement, Knee Replacement, Lumbar Laminectomy, oral surgery. Family History Heart Disease, Social History ALCOHOL: occasional Drugs: None ALLERGY: NKDA MEDICATIONS: Refer to MAR REVIEW OF SYSTEMS: Constitutional: Obesity.. Head: No traumatic brain or head injury. Skin: No edema, or rash. Ear: No infection. Eyes: No vision loss or color blindness. Nose: No bleeding or purulent discharges. Hearing: No hearing decrease. Neck: No injury. Cardiovascular: HTN, Hyperlipidemia. Pulmonary: No pertinent hx CENTRAL NERVOUS SYSTEM: Periperal neuropathy GI: No pertinent hx Heme/Onc: No pertinent hx Hepatobiliary: No pertinent hx, Cholelithiasis Psych: No pertinent hx Musculoskeletal: Osteoarthritis, Other Rheumatologic: No pertinent hx Infectious disease: No pertinent hx Renal/: No pertinent hx Endocrine: No pertinent hx Psychiatric: Denies drug use/abuse. Otherwise, not [id number] review of systems. PHYSICAL EXAMINATION: General appearance is in subacute distress. HEENT: Normocephalic and nontraumatic. Eyes, nose, ears, and throat are unremarkable. Neck is supple. No lymphadenopathy. No crepitus. Cardiovascular: S1, S2, regular rate and rhythm. Pulmonary: Clear to auscultation bilaterally. Abdomen: Bowel sounds are positive. Abdomen is soft, nontender, and nondistended. Extremities: Edema in LE. No restriction of range of motion NEUROLOGICAL EXAMINATION: Alert Oriented to time, place and person. PERRL. EOMI. CN: no focal findings. Muscle tone: within normal in UE, decreased in LE. Muscle strength: 2+ LE. 5 UE bilateral. DTR: 2 in UE, 0 at knee and ankle. LE edema noted. Plantar reflex: No response bilaterally Gait: Unable to walk. Sensory exam: Decreased light touch, temperature and vibration sense below T11 or T12. Right LE started to improve in sensory deficits. No cerebellar signs elicited. F-T-N test fine. Objective Objective Vital Signs Date Time Temp Pulse Resp B/P (MAP) Pulse Ox O2 Delivery O2 Flow Rate FiO2 09/07/18 11:00 98.6 88 20 127/71 (89) 94 Room Air 98.6 Intake and Output 09/07/18 07:00 Intake Total 750 ml Output Total 1000 ml Balance -250 ml Intake Oral 120 ml IV Total 630 ml Output Urine Total 1000 ml # Voids 3 Vitals Signs Vitals VS - Last 72 Hours, by Label Date Time Temp Pulse Resp B/P (MAP) Pulse Ox O2 Delivery O2 Flow Rate FiO2 09/07/18 11:00 98.6 88 20 127/71 (89) 94 Room Air 98.6 09/07/18 10:07 Room Air 09/07/18 09:07 Room Air 09/07/18 09:03 90 131/74 09/07/18 09:03 90 131/74 09/07/18 09:02 90 134/74 09/07/18 07:00 98.5 90 18 131/74 (93) 93 Room Air 98.5 09/07/18 06:01 20 09/07/18 05:01 20 Room Air 09/07/18 03:00 97.5 71 16 135/76 (95) 94 Room Air 97.5 09/06/18 23:00 97.8 73 16 134/68 (90) 94 Room Air 97.8 09/06/18 22:13 20 Room Air 09/06/18 19:30 Room Air 09/06/18 19:00 97.9 75 16 137/71 (93) 93 Room Air 97.9 09/06/18 15:24 Room Air 09/06/18 15:00 98.1 77 16 120/74 (89) 95 Room Air 98.1 09/06/18 11:00 98.2 87 16 124/75 (91) 94 Room Air 98.2 09/06/18 08:37 98 138/94 09/06/18 08:37 98 138/94 09/06/18 08:37 98 138/94 09/06/18 08:00 Room Air 09/06/18 07:00 97.7 98 18 139/94 (109) 96 Room Air 97.7 Laboratory Laboratory Laboratory Tests Test 09/06/18 16:52 09/07/18 03:20 09/07/18 08:06 09/07/18 12:04 Glucose (Fingerstick) 177 mg/dL (70-99) 165 mg/dL (70-99) 130 mg/dL (70-99) White Blood Count 10.1 x10^3/uL (4.0-11.0) Red Blood Count 4.49 x10^6/uL (4.30-5.70) Hemoglobin 13.2 g/dL (13.0-17.5) Hematocrit 40.3 % (39.0-53.0) Mean Corpuscular Volume 90 fL (79-100) Mean Corpuscular Hemoglobin 30 pg (25-35) Mean Corpuscular Hemoglobin Concent 33 g/dL (31-37) Red Cell Distribution Width 14.1 % (11.5-14.5) Platelet Count 208 x10^3/uL (140-400) Neutrophils (%) (Auto) 93 % (31-73) Lymphocytes (%) (Auto) 5 % (24-48) Monocytes (%) (Auto) 2 % (0-9) Eosinophils (%) (Auto) 0 % (0-3) Basophils (%) (Auto) 0 % (0-3) Neutrophils # (Auto) 9.4 x10^3uL (1.8-7.7) Lymphocytes # (Auto) 0.5 x10^3/uL (1.0-4.8) Monocytes # (Auto) 0.2 x10^3/uL (0.0-1.1) Eosinophils # (Auto) 0.0 x10^3/uL (0.0-0.7) Basophils # (Auto) 0.0 x10^3/uL (0.0-0.2) Sodium Level 137 mmol/L (136-145) Potassium Level 3.9 mmol/L (3.5-5.1) Chloride Level 102 mmol/L (98-107) Carbon Dioxide Level 24 mmol/L (21-32) Anion Gap 11 (6-14) Blood Urea Nitrogen 32 mg/dL (8-26) Creatinine 0.9 mg/dL (0.7-1.3) Estimated GFR (Cockcroft-Gault) 84.7 Glucose Level 133 mg/dL (70-99) Calcium Level 8.5 mg/dL (8.5-10.1) Microbiology 09/05/18 CSF Gram Stain - Final, Complete 09/03/18 Urine Culture - Final, Complete 09/03/18 Urine Culture Result 1 (LUIS M) - Final, Complete Medication Medications Current Medications Enoxaparin Sodium (Lovenox 120mg Syringe) 120 mg Q12HR SQ ; Start 09/07/18 at 11 :15 Enoxaparin Sodium (Lovenox Per Pharmacy Treatment Dosing) 1 each PRN DAILY PRN MC SEE COMMENTS; Start 09/07/18 at 11:15 Insulin Human Lispro (HumaLOG) 0-7 UNITS TIDWMEALS SQ Last administered on 09/07at 08:50; Start 09/06/18 at 17:00 Methylprednisolone (Medrol) 4 mg BID PO ; Start 09/08/18 at 09:00; Stop at 09:00; Status DC Methylprednisolone (Medrol) 4 mg DAILY PO ; Start 09/09/18 at 09:00; Stop at 09:00; Status DC Methylprednisolone (Medrol) 4 mg TID PO ; Start 09/07/18 at 09:00; Stop at 09:00; Status DC Rivaroxaban (Xarelto) 15 mg BIDWMEALS PO Last administered on 09/06/18at 17:23; Start 09/06/18 at 17:00; Stop 09/07/18 at 08:22; Status DC Comment Review of Relevant I have reviewed the following items franc (where applicable) has been applied. IVETTE REDMAN MD Sep 07, 2018 15:22
--- NOTE | 2018-09-07 15:32 | PDOC ---
PROGRESS NOTES Chief Complaint Chief Complaint Transverse myelitis- Cauda Equina Syndrome Bilateral LE weakness S/p laminectomy (06/2018) L3-L5 Recent admission for UTI/C.Diff (07/2018) Neurogenic bladder- requiring straight cath x2 months Hyperlipidemia Essential hypertension History of Present Illness History of Present Illness still weak, no vomiting no event, feeling stronger and can move legs a little better Laminectomy in Jun 2018 led to neurogenic bladder, admission in 07/2018 for UTI, C.Diff, now Cauda Equina Syndrome and transverse myelitis Difficulty ambulating at home Pt and family are in good spirits today Vitals Vitals Vital Signs Date Time Temp Pulse Resp B/P (MAP) Pulse Ox O2 Delivery O2 Flow Rate FiO2 09/07/18 11:00 98.6 88 20 127/71 (89) 94 Room Air 98.6 Physical Exam Physical Exam GENERAL: Sitting on the side of the bed, alert, NAD HEENT: Oropharynx clear NECK: Supple. LUNGS: Clear bilaterally. No wheezing. HEART: S1, S2. ABDOMEN: Obese, soft, NT EXTREMITIES: Bilateral trace pedal edema. NEUROLOGIC: Alert and oriented x 3. Lower extremity weakness bilaterally, SPINE: Back incision well healed, nontender. No surrounding redness or erythema. SKIN: Warm, dry. No generalized rash. PIV right hand ok General: Alert, Oriented X3, Cooperative, No acute distress Heart: Regular rate, No murmurs Lungs: Clear Abdomen: Normal bowel sounds, Soft, No tenderness Extremities: No cyanosis, Other (decreased muscle strength in B/L LEs, B/L LE edema up to distal thigh) Labs LABS Laboratory Tests Test 09/06/18 16:52 09/07/18 03:20 09/07/18 08:06 09/07/18 12:04 Glucose (Fingerstick) 177 mg/dL (70-99) 165 mg/dL (70-99) 130 mg/dL (70-99) White Blood Count 10.1 x10^3/uL (4.0-11.0) Red Blood Count 4.49 x10^6/uL (4.30-5.70) Hemoglobin 13.2 g/dL (13.0-17.5) Hematocrit 40.3 % (39.0-53.0) Mean Corpuscular Volume 90 fL (79-100) Mean Corpuscular Hemoglobin 30 pg (25-35) Mean Corpuscular Hemoglobin Concent 33 g/dL (31-37) Red Cell Distribution Width 14.1 % (11.5-14.5) Platelet Count 208 x10^3/uL (140-400) Neutrophils (%) (Auto) 93 % (31-73) Lymphocytes (%) (Auto) 5 % (24-48) Monocytes (%) (Auto) 2 % (0-9) Eosinophils (%) (Auto) 0 % (0-3) Basophils (%) (Auto) 0 % (0-3) Neutrophils # (Auto) 9.4 x10^3uL (1.8-7.7) Lymphocytes # (Auto) 0.5 x10^3/uL (1.0-4.8) Monocytes # (Auto) 0.2 x10^3/uL (0.0-1.1) Eosinophils # (Auto) 0.0 x10^3/uL (0.0-0.7) Basophils # (Auto) 0.0 x10^3/uL (0.0-0.2) Sodium Level 137 mmol/L (136-145) Potassium Level 3.9 mmol/L (3.5-5.1) Chloride Level 102 mmol/L (98-107) Carbon Dioxide Level 24 mmol/L (21-32) Anion Gap 11 (6-14) Blood Urea Nitrogen 32 mg/dL (8-26) Creatinine 0.9 mg/dL (0.7-1.3) Estimated GFR (Cockcroft-Gault) 84.7 Glucose Level 133 mg/dL (70-99) Calcium Level 8.5 mg/dL (8.5-10.1) Comment Review of Relevant I have reviewed the following items franc (where applicable) has been applied. Labs Laboratory Tests Test 09/06/18 00:55 09/06/18 16:52 09/07/18 03:20 09/07/18 08:06 White Blood Count 12.5 x10^3/uL (4.0-11.0) 10.1 x10^3/uL (4.0-11.0) Red Blood Count 4.68 x10^6/uL (4.30-5.70) 4.49 x10^6/uL (4.30-5.70) Hemoglobin 13.8 g/dL (13.0-17.5) 13.2 g/dL (13.0-17.5) Hematocrit 41.8 % (39.0-53.0) 40.3 % (39.0-53.0) Mean Corpuscular Volume 89 fL (79-100) 90 fL (79-100) Mean Corpuscular Hemoglobin 30 pg (25-35) 30 pg (25-35) Mean Corpuscular Hemoglobin Concent 33 g/dL (31-37) 33 g/dL (31-37) Red Cell Distribution Width 14.1 % (11.5-14.5) 14.1 % (11.5-14.5) Platelet Count 216 x10^3/uL (140-400) 208 x10^3/uL (140-400) Neutrophils (%) (Auto) 92 % (31-73) 93 % (31-73) Lymphocytes (%) (Auto) 5 % (24-48) 5 % (24-48) Monocytes (%) (Auto) 2 % (0-9) 2 % (0-9) Eosinophils (%) (Auto) 0 % (0-3) 0 % (0-3) Basophils (%) (Auto) 0 % (0-3) 0 % (0-3) Neutrophils # (Auto) 11.5 x10^3uL (1.8-7.7) 9.4 x10^3uL (1.8-7.7) Lymphocytes # (Auto) 0.6 x10^3/uL (1.0-4.8) 0.5 x10^3/uL (1.0-4.8) Monocytes # (Auto) 0.3 x10^3/uL (0.0-1.1) 0.2 x10^3/uL (0.0-1.1) Eosinophils # (Auto) 0.0 x10^3/uL (0.0-0.7) 0.0 x10^3/uL (0.0-0.7) Basophils # (Auto) 0.0 x10^3/uL (0.0-0.2) 0.0 x10^3/uL (0.0-0.2) Segmented Neutrophils % 93 % (35-66) Lymphocytes % 3 % (24-48) Monocytes % 4 % (0-10) Toxic Granulation Slight Platelet Estimate Adequate (ADEQUATE) Sodium Level 139 mmol/L (136-145) 137 mmol/L (136-145) Potassium Level 4.2 mmol/L (3.5-5.1) 3.9 mmol/L (3.5-5.1) Chloride Level 105 mmol/L (98-107) 102 mmol/L (98-107) Carbon Dioxide Level 25 mmol/L (21-32) 24 mmol/L (21-32) Anion Gap 9 (6-14) 11 (6-14) Blood Urea Nitrogen 27 mg/dL (8-26) 32 mg/dL (8-26) Creatinine 1.0 mg/dL (0.7-1.3) 0.9 mg/dL (0.7-1.3) Estimated GFR (Cockcroft-Gault) 75.0 84.7 Glucose Level 183 mg/dL (70-99) 133 mg/dL (70-99) Calcium Level 8.4 mg/dL (8.5-10.1) 8.5 mg/dL (8.5-10.1) Low Molecular Weight Heparin 0.49 IU/mL Immunoglobulin A 334 mg/dL (61-437) Glucose (Fingerstick) 177 mg/dL (70-99) 165 mg/dL (70-99) Test 09/07/18 12:04 Glucose (Fingerstick) 130 mg/dL (70-99) Laboratory Tests Test 09/06/18 16:52 09/07/18 03:20 09/07/18 08:06 09/07/18 12:04 Glucose (Fingerstick) 177 mg/dL (70-99) 165 mg/dL (70-99) 130 mg/dL (70-99) White Blood Count 10.1 x10^3/uL (4.0-11.0) Red Blood Count 4.49 x10^6/uL (4.30-5.70) Hemoglobin 13.2 g/dL (13.0-17.5) Hematocrit 40.3 % (39.0-53.0) Mean Corpuscular Volume 90 fL (79-100) Mean Corpuscular Hemoglobin 30 pg (25-35) Mean Corpuscular Hemoglobin Concent 33 g/dL (31-37) Red Cell Distribution Width 14.1 % (11.5-14.5) Platelet Count 208 x10^3/uL (140-400) Neutrophils (%) (Auto) 93 % (31-73) Lymphocytes (%) (Auto) 5 % (24-48) Monocytes (%) (Auto) 2 % (0-9) Eosinophils (%) (Auto) 0 % (0-3) Basophils (%) (Auto) 0 % (0-3) Neutrophils # (Auto) 9.4 x10^3uL (1.8-7.7) Lymphocytes # (Auto) 0.5 x10^3/uL (1.0-4.8) Monocytes # (Auto) 0.2 x10^3/uL (0.0-1.1) Eosinophils # (Auto) 0.0 x10^3/uL (0.0-0.7) Basophils # (Auto) 0.0 x10^3/uL (0.0-0.2) Sodium Level 137 mmol/L (136-145) Potassium Level 3.9 mmol/L (3.5-5.1) Chloride Level 102 mmol/L (98-107) Carbon Dioxide Level 24 mmol/L (21-32) Anion Gap 11 (6-14) Blood Urea Nitrogen 32 mg/dL (8-26) Creatinine 0.9 mg/dL (0.7-1.3) Estimated GFR (Cockcroft-Gault) 84.7 Glucose Level 133 mg/dL (70-99) Calcium Level 8.5 mg/dL (8.5-10.1) Microbiology 09/05/18 CSF Gram Stain - Final, Complete 09/03/18 Urine Culture - Final, Complete 09/03/18 Urine Culture Result 1 (LUIS M) - Final, Complete Medications Current Medications Gadobutrol (Gadavist) 10 mmol 1X ONCE IV Last administered on 09/03/18at 15:35 ; Start 09/03/18 at 15:15; Stop 09/03/18 at 15:16; Status DC Aspirin (Ecotrin) 81 mg DAILYWBKFT PO Last administered on 09/07/18at 09:00; Start 09/03/18 at 16:30 Docusate Sodium (Colace) 100 mg PRN DAILY PRN PO HARD STOOLS; Start 09/03/18 at 15:30 Tamsulosin HCl (Flomax) 0.4 mg BID PO Last administered on 09/07/18 09:03; Start 09/03/18 at 21:00 Non-Formulary Medication (Amlodipine/ Valsartan (Exforge 10-320 Mg Tablet)) 1 tab DAILY PO ; Start 09/04/18 at 09:00; Status UNV Metoprolol Succinate (Toprol Xl) 50 mg DAILY PO Last administered on 09/07/18 09:03; Start 09/03/18 at 16:30 Polyethylene Glycol (miraLAX PACKET) 17 gm PRN DAILY PRN PO CONSTIPATION 2ND CHOICE; Start 09/04/18 at 09:00 Atorvastatin Calcium (Lipitor) 40 mg QHS PO Last administered on 09/05/18 21: 01; Start 09/03/18 at 21:00; Stop 09/06/18 at 15:52; Status DC Oxycodone/ Acetaminophen (Percocet 5/325) 1 tab PRN Q4HRS PRN PO PAIN; Start at 15:30; Stop 09/03/18 at 17:31; Status DC Amlodipine Besylate (Norvasc) 10 mg DAILY PO Last administered on 09/07/18 09: 03; Start 09/03/18 at 16:30 Losartan Potassium (Cozaar) 100 mg DAILY PO Last administered on 09/07/18 09: 02; Start 09/03/18 at 16:30 Oxycodone/ Acetaminophen (Percocet 5/325) 1 tab PRN Q6HRS PRN PO MODERATE PAIN Last administered on 09/04/18at 11:07; Start 09/03/18 at 17:30; Stop 09/04/18 at 13:35; Status DC Ciprofloxacin (Cipro) 500 mg BID PO Last administered on 09/05/18 08:27; Start 09/03/18 at 21:00; Stop 09/05/18 at 13:20; Status DC Oxycodone/ Acetaminophen (Percocet 5/325) 2 tab PRN Q6HRS PRN PO SEVERE PAIN; Start 09/03/18 at 17:45 Acetaminophen (Tylenol) 650 mg PRN Q4HRS PRN PO MILD PAIN Last administered on 09/03/18at 21:01; Start 09/03/18 at 18:45 Enoxaparin Sodium (Lovenox 120mg Syringe) 120 mg Q12HR SQ Last administered on 09/04/18at 07:55; Start 09/04/18 at 09:00; Stop 09/04/18 at 15:42; Status DC Methylprednisolone (Medrol) 8 mg BID PO Last administered on 09/04/18at 11:06; Start 09/04/18 at 10:00; Stop 09/04/18 at 13:28; Status DC Methylprednisolone (Medrol) 4 mg BIDPCLD PO ; Start 09/04/18 at 12:30; Stop at 13:28; Status DC Methylprednisolone (Medrol) 4 mg TIDPC PO ; Start 09/05/18 at 08:30; Stop at 08:30; Status DC Methylprednisolone (Medrol) 8 mg QHS PO ; Start 09/05/18 at 21:00; Stop at 21:00; Status DC Methylprednisolone (Medrol) 4 mg QIDAFTMEAL PO ; Start 09/06/18 at 09:00; Stop 09/06/18 at 09:00; Status DC Methylprednisolone (Medrol) 4 mg TID PO ; Start 09/07/18 at 09:00; Stop at 09:00; Status DC Methylprednisolone (Medrol) 4 mg BID PO ; Start 09/08/18 at 09:00; Stop at 09:00; Status DC Methylprednisolone (Medrol) 4 mg DAILY PO ; Start 09/09/18 at 09:00; Stop at 09:00; Status DC Pantoprazole Sodium (Protonix) 40 mg DAILYAC PO Last administered on 09/07/18at 09:05; Start 09/04/18 at 10:00 Bisacodyl (Dulcolax Tab) 10 mg DAILY PO ; Start 09/04/18 at 10:00 Bisacodyl (Dulcolax Supp) 10 mg PRN DAILY PRN DC CONSTIPATION 1ST RECTAL CHOICE Last administered on 09/04/18at 19:38; Start 09/04/18 at 09:30 Docusate Sodium (Enemeez) 283 mg PRN DAILY PRN DC CONSTIPATION 2ND RECTAL CHOICE; Start 09/04/18 at 09:30 Gadobutrol (Gadavist) 10 mmol 1X ONCE IV Last administered on 09/04/18 13:26 ; Start 09/04/18 at 13:30; Stop 09/04/18 at 13:31; Status DC Methylprednisolone Sodium Succinate (SOLU-Medrol 125MG VIAL) 500 mg BID IV ; Start 09/04/18 at 21:00; Status UNV Methylprednisolone Sodium Succinate 500 mg/Sodium Chloride 100 ml @ 100 mls/hr Q12HR IV Last administered on 09/07/18 10:36; Start 09/04/18 at 21:00 Methylprednisolone Sodium Succinate 500 mg/Sodium Chloride 100 ml @ 100 mls/hr Q12HR IV ; Start 09/04/18 at 21:00; Status Cancel Oxycodone/ Acetaminophen (Percocet 5/325) 1 tab PRN Q4HRS PRN PO MODERATE PAIN Last administered on 09/07/18 09:07; Start 09/04/18 at 13:45 Hydrocortisone Acetate (Anucort-Hc) 25 mg PRN DAILY PRN DC RECTAL PAIN; Start 09/04/18 at 13:30 Enoxaparin Sodium (Lovenox 120mg Syringe) 110 mg Q12HR SQ Last administered on 09/05/18 21:35; Start 09/04/18 at 21:00; Stop 09/06/18 at 06:49; Status DC Lactobacillus Rhamnosus (Culturelle) 1 cap BID PO Last administered on 09:00; Start 09/04/18 at 21:00 Cefepime HCl (Maxipime) 2 gm Q8HRS IVP Last administered on 09/07/18 15:27; Start 09/05/18 at 14:00 Vancomycin HCl (Vancomycin Oral Solution) 125 mg BID PO Last administered on 09:05; Start 09/05/18 at 21:00 Acyclovir Sodium 750 mg/Dextrose 265 ml @ 265 mls/hr Q8HRS IV Last administered on 09/07/18 15:26; Start 09/05/18 at 14:00 Doxycycline Hyclate (Vibra-Tab) 100 mg BID PO Last administered on 09/07/18 09 :06; Start 09/05/18 at 21:00 Info (Anti-Coagulation Monitoring By Pharmacy) 1 each PRN DAILY PRN MC SEE COMMENTS Last administered on 09/06/18at 16:44; Start 09/05/18 at 14:00 Enoxaparin Sodium (Lovenox 120mg Syringe) 120 mg Q12HR SQ ; Start 09/06/18 at 06 :49; Status Cancel Enoxaparin Sodium (Lovenox 120mg Syringe) 120 mg Q12HR SQ Last administered on 09/06/18at 08:39; Start 09/06/18 at 09:00; Stop 09/06/18 at 16:44; Status DC Cetirizine HCl (ZyrTEC) 10 mg DAILY PO Last administered on 09/06/18at 15:12; Start 09/04/18 at 11:00; Stop 09/06/18 at 15:53; Status DC Insulin Human Lispro (HumaLOG) 0-7 UNITS TIDWMEALS SQ Last administered on 09/07at 08:50; Start 09/06/18 at 17:00 Dextrose (Dextrose 50%-Water Syringe) 12.5 gm PRN Q15MIN PRN IV SEE COMMENTS; Start 09/06/18 at 12:30 Multivitamins (Thera M Plus) 1 tab DAILY PO Last administered on 09/07/18at 09: 05; Start 09/06/18 at 14:00 Calcium Carbonate/ Glycine (Oscal) 500 mg DAILY PO Last administered on at 09:01; Start 09/06/18 at 14:00 Thiamine Mononitrate (Vitamin B-1) 100 mg DAILY PO Last administered on 09:00; Start 09/06/18 at 14:00 Cetirizine HCl (ZyrTEC) 10 mg DAILY PO Last administered on 09/06/18at 15:12; Start 09/06/18 at 15:00 Rivaroxaban (Xarelto) 15 mg BIDWMEALS PO Last administered on 09/06/18at 17:23; Start 09/06/18 at 17:00; Stop 09/07/18 at 08:22; Status DC Enoxaparin Sodium (Lovenox Per Pharmacy Treatment Dosing) 1 each PRN DAILY PRN MC SEE COMMENTS; Start 09/07/18 at 11:15 Enoxaparin Sodium (Lovenox 120mg Syringe) 120 mg Q12HR SQ Last administered on 09/07/18at 15:26; Start 09/07/18 at 11:15 Gabapentin (Neurontin) 100 mg TID PO ; Start 09/07/18 at 21:00 Active Scripts Active Cipro (Ciprofloxacin Hcl) 500 Mg Tablet 1 Tab PO BID Aspirin Ec (Aspirin) 81 Mg Tablet.dr 81 Mg PO DAILYWBKFT 30 Days Colace (Docusate Sodium) 100 Mg Capsule 100 Mg PO PRN DAILY PRN 30 Days Polyethylene Glycol 3350 17 Gm Powd.pack 17 Gm PO PRN DAILY PRN 14 Days Flomax (Tamsulosin Hcl) 0.4 Mg Cap.er.24h 0.4 Mg PO BID 30 Days Reported Percocet 5-325 Mg Tablet (Oxycodone/Acetaminophen) 1 Each Tablet 1-2 Tab PO Q4-6HRS Exforge 10-320 Mg Tablet (Amlodipine/Valsartan) 1 Each Tablet 1 Tab PO DAILY Crestor (Rosuvastatin Calcium) 10 Mg Tablet 1 Tab PO DAILY Toprol Xl (Metoprolol Succinate) 50 Mg Tab.er.24h 1 Tab PO DAILY Vitals/I & O Vital Sign - Last 24 Hours 09/06/18 09/06/18 09/06/18 09/06/18 19:00 19:30 22:13 23:00 Temp 97.9 97.8 97.9 97.8 Pulse 75 73 Resp 16 20 16 B/P (MAP) 137/71 (93) 134/68 (90) Pulse Ox 93 94 O2 Delivery Room Air Room Air Room Air Room Air 09/07/18 09/07/18 09/07/18 09/07/18 03:00 05:01 06:01 07:00 Temp 97.5 98.5 97.5 98.5 Pulse 71 90 Resp 16 20 20 18 B/P (MAP) 135/76 (95) 131/74 (93) Pulse Ox 94 93 O2 Delivery Room Air Room Air Room Air 09/07/18 09/07/18 09/07/18 09/07/18 09:02 09:03 09:03 09:07 Pulse 90 90 90 B/P (MAP) 134/74 131/74 131/74 O2 Delivery Room Air 09/07/18 09/07/18 10:07 11:00 Temp 98.6 98.6 Pulse 88 Resp 20 B/P (MAP) 127/71 (89) Pulse Ox 94 O2 Delivery Room Air Room Air Intake and Output 09/06/18 09/06/18 09/07/18 14:59 22:59 06:59 Intake Total 265 ml 220 ml 265 ml Output Total 1000 ml Balance 265 ml 220 ml -735 ml GALILEA MOREIRA MD Sep 07, 2018 15:32
[2018-09-07] MEDS: ANTI-COAG MONITOR BY PHARMACY. MC PRN (15:56)
[2018-09-07 19:00] VITALS: BP 121/68
[2018-09-07] MEDS: GABAPENTIN 100 MG CAPSULE. PO SCH (20:54)
[2018-09-07 23:00] VITALS: BP 112/64
[2018-09-08 03:00] VITALS: BP 132/77
[2018-09-08] MEDS: ACYCLOVIR SODIUM IV SCH ×3 (05:44→22:40)
[2018-09-08] MEDS: CEFEPIME HCL IV Push 2 GM VIAL. IVP SCH ×3 (05:44→22:40)
[2018-09-08] MEDS: DEXTROSE 5% IV SCH ×3 (05:44→22:40)
[2018-09-08 07:00] VITALS: BP 133/83
[2018-09-08] MEDS: INSULIN LISPRO 300 UNITS/3 ML INSULN.PEN. SQ SCH ×3 (07:45→17:01)
[2018-09-08] MEDS: VANCOMYCIN 125 MG/2.5 ML ORAL SOLUTION. PO SCH ×2 (08:44→21:28)
[2018-09-08] MEDS: LACTOBACILLUS RHAMNOSUS GG 1 CAPSULE. PO SCH ×2 (08:45→21:28)
[2018-09-08] MEDS: METOPROLOL SUCC 24HR ER 50 MG TAB.ER.24H. PO SCH (08:45)
[2018-09-08] MEDS: LOSARTAN POTASSIUM 50 MG TABLET. PO SCH (08:45)
[2018-09-08] MEDS: GABAPENTIN 100 MG CAPSULE. PO SCH ×3 (08:45→21:28)
[2018-09-08] MEDS: ASPIRIN ENTERIC COATED 81 MG TABLET.DR. PO SCH (08:46)
[2018-09-08] MEDS: THIAMINE 100 MG TABLET. PO SCH (08:46)
[2018-09-08] MEDS: CALCIUM CARBONATE 500 MG TABLET PO SCH (08:46)
[2018-09-08] MEDS: MULTIVITAMIN with MINERAL TABLET. PO SCH (08:46)
[2018-09-08] MEDS: PANTOPRAZOLE 40 MG TABLET.DR. PO SCH (08:47)
[2018-09-08] MEDS: CETIRIZINE HCL 10 MG TABLET. PO SCH (08:47)
[2018-09-08] MEDS: BISACODYL 5 MG TABLET.DR. PO SCH (08:47)
[2018-09-08] MEDS: amLODIPine BESYLATE 10 MG TABLET PO SCH (08:47)
[2018-09-08] MEDS: TAMSULOSIN 0.4 MG CAP.ER.24H. PO SCH (09:00)
[2018-09-08] MEDS ORDERED: methylPREDNISolone 4 MG TABLET. PO SCH (09:00)
--- NOTE | 2018-09-08 09:00 | PDOC ---
PROGRESS NOTES Chief Complaint Chief Complaint Transverse myelitis- Cauda Equina Syndrome Bilateral LE weakness S/p laminectomy (06/2018) L3-L5 Recent admission for UTI/C.Diff (07/2018) Neurogenic bladder- requiring straight cath x2 months Hyperlipidemia Essential hypertension History of Present Illness History of Present Illness still weak, no vomiting some worse LE edema, better with ambulating, then raising has lost IV mult times, poor venous access,. RN discussed PICC, will hold off no event, Laminectomy in Jun 2018 led to neurogenic bladder, admission in 07/2018 for UTI, C.Diff, now Cauda Equina Syndrome and transverse myelitis Difficulty ambulating at home Pt and family are in good spirits today Vitals Vitals Vital Signs Date Time Temp Pulse Resp B/P (MAP) Pulse Ox O2 Delivery O2 Flow Rate FiO2 09/08/18 08:47 85 133/83 09/08/18 07:00 97.6 20 91 Room Air 97.6 Physical Exam Physical Exam GENERAL: Sitting on the side of the bed, alert, NAD HEENT: Oropharynx clear NECK: Supple. LUNGS: Clear bilaterally. No wheezing. HEART: S1, S2. ABDOMEN: Obese, soft, NT EXTREMITIES: Bilateral trace pedal edema. NEUROLOGIC: Alert and oriented x 3. Lower extremity weakness bilaterally, SPINE: Back incision well healed, nontender. No surrounding redness or erythema. SKIN: Warm, dry. No generalized rash. PIV right hand ok General: Alert, Oriented X3, Cooperative, No acute distress Heart: Regular rate, No murmurs Lungs: Clear Abdomen: Normal bowel sounds, Soft, No tenderness Extremities: No cyanosis, Other (decreased muscle strength in B/L LEs, B/L LE edema up to distal thigh) Labs LABS Laboratory Tests Test 09/07/18 12:04 09/07/18 16:58 09/07/18 21:02 Glucose (Fingerstick) 130 mg/dL (70-99) 190 mg/dL (70-99) 161 mg/dL (70-99) Comment Review of Relevant I have reviewed the following items franc (where applicable) has been applied. Labs Laboratory Tests Test 09/06/18 16:52 09/07/18 03:20 09/07/18 08:06 09/07/18 12:04 Glucose (Fingerstick) 177 mg/dL (70-99) 165 mg/dL (70-99) 130 mg/dL (70-99) White Blood Count 10.1 x10^3/uL (4.0-11.0) Red Blood Count 4.49 x10^6/uL (4.30-5.70) Hemoglobin 13.2 g/dL (13.0-17.5) Hematocrit 40.3 % (39.0-53.0) Mean Corpuscular Volume 90 fL (79-100) Mean Corpuscular Hemoglobin 30 pg (25-35) Mean Corpuscular Hemoglobin Concent 33 g/dL (31-37) Red Cell Distribution Width 14.1 % (11.5-14.5) Platelet Count 208 x10^3/uL (140-400) Neutrophils (%) (Auto) 93 % (31-73) Lymphocytes (%) (Auto) 5 % (24-48) Monocytes (%) (Auto) 2 % (0-9) Eosinophils (%) (Auto) 0 % (0-3) Basophils (%) (Auto) 0 % (0-3) Neutrophils # (Auto) 9.4 x10^3uL (1.8-7.7) Lymphocytes # (Auto) 0.5 x10^3/uL (1.0-4.8) Monocytes # (Auto) 0.2 x10^3/uL (0.0-1.1) Eosinophils # (Auto) 0.0 x10^3/uL (0.0-0.7) Basophils # (Auto) 0.0 x10^3/uL (0.0-0.2) Sodium Level 137 mmol/L (136-145) Potassium Level 3.9 mmol/L (3.5-5.1) Chloride Level 102 mmol/L (98-107) Carbon Dioxide Level 24 mmol/L (21-32) Anion Gap 11 (6-14) Blood Urea Nitrogen 32 mg/dL (8-26) Creatinine 0.9 mg/dL (0.7-1.3) Estimated GFR (Cockcroft-Gault) 84.7 Glucose Level 133 mg/dL (70-99) Calcium Level 8.5 mg/dL (8.5-10.1) Test 09/07/18 16:58 09/07/18 21:02 Glucose (Fingerstick) 190 mg/dL (70-99) 161 mg/dL (70-99) Laboratory Tests Test 09/07/18 12:04 09/07/18 16:58 09/07/18 21:02 Glucose (Fingerstick) 130 mg/dL (70-99) 190 mg/dL (70-99) 161 mg/dL (70-99) Microbiology 09/05/18 CSF Gram Stain - Final, Complete 09/03/18 Urine Culture - Final, Complete 09/03/18 Urine Culture Result 1 (LUIS M) - Final, Complete Medications Current Medications Gadobutrol (Gadavist) 10 mmol 1X ONCE IV Last administered on 09/03/18at 15:35 ; Start 09/03/18 at 15:15; Stop 09/03/18 at 15:16; Status DC Aspirin (Ecotrin) 81 mg DAILYWBKFT PO Last administered on 09/08/18at 08:46; Start 09/03/18 at 16:30 Docusate Sodium (Colace) 100 mg PRN DAILY PRN PO HARD STOOLS; Start 09/03/18 at 15:30 Tamsulosin HCl (Flomax) 0.4 mg BID PO Last administered on 09/07/18at 20:54; Start 09/03/18 at 21:00 Non-Formulary Medication (Amlodipine/ Valsartan (Exforge 10-320 Mg Tablet)) 1 tab DAILY PO ; Start 09/04/18 at 09:00; Status UNV Metoprolol Succinate (Toprol Xl) 50 mg DAILY PO Last administered on 09/08/18at 08:45; Start 09/03/18 at 16:30 Polyethylene Glycol (miraLAX PACKET) 17 gm PRN DAILY PRN PO CONSTIPATION 2ND CHOICE; Start 09/04/18 at 09:00 Atorvastatin Calcium (Lipitor) 40 mg QHS PO Last administered on 09/05/18at 21: 01; Start 09/03/18 at 21:00; Stop 09/06/18 at 15:52; Status DC Oxycodone/ Acetaminophen (Percocet 5/325) 1 tab PRN Q4HRS PRN PO PAIN; Start at 15:30; Stop 09/03/18 at 17:31; Status DC Amlodipine Besylate (Norvasc) 10 mg DAILY PO Last administered on 09/08/18at 08: 47; Start 09/03/18 at 16:30 Losartan Potassium (Cozaar) 100 mg DAILY PO Last administered on 09/08/18at 08: 45; Start 09/03/18 at 16:30 Oxycodone/ Acetaminophen (Percocet 5/325) 1 tab PRN Q6HRS PRN PO MODERATE PAIN Last administered on 09/04/18at 11:07; Start 09/03/18 at 17:30; Stop 09/04/18 at 13:35; Status DC Ciprofloxacin (Cipro) 500 mg BID PO Last administered on 09/05/18at 08:27; Start 09/03/18 at 21:00; Stop 09/05/18 at 13:20; Status DC Oxycodone/ Acetaminophen (Percocet 5/325) 2 tab PRN Q6HRS PRN PO SEVERE PAIN; Start 09/03/18 at 17:45 Acetaminophen (Tylenol) 650 mg PRN Q4HRS PRN PO MILD PAIN Last administered on 09/03/18at 21:01; Start 09/03/18 at 18:45 Enoxaparin Sodium (Lovenox 120mg Syringe) 120 mg Q12HR SQ Last administered on 09/04/18at 07:55; Start 09/04/18 at 09:00; Stop 09/04/18 at 15:42; Status DC Methylprednisolone (Medrol) 8 mg BID PO Last administered on 09/04/18at 11:06; Start 09/04/18 at 10:00; Stop 09/04/18 at 13:28; Status DC Methylprednisolone (Medrol) 4 mg BIDPCLD PO ; Start 09/04/18 at 12:30; Stop at 13:28; Status DC Methylprednisolone (Medrol) 4 mg TIDPC PO ; Start 09/05/18 at 08:30; Stop at 08:30; Status DC Methylprednisolone (Medrol) 8 mg QHS PO ; Start 09/05/18 at 21:00; Stop at 21:00; Status DC Methylprednisolone (Medrol) 4 mg QIDAFTMEAL PO ; Start 09/06/18 at 09:00; Stop 09/06/18 at 09:00; Status DC Methylprednisolone (Medrol) 4 mg TID PO ; Start 09/07/18 at 09:00; Stop at 09:00; Status DC Methylprednisolone (Medrol) 4 mg BID PO ; Start 09/08/18 at 09:00; Stop at 09:00; Status DC Methylprednisolone (Medrol) 4 mg DAILY PO ; Start 09/09/18 at 09:00; Stop at 09:00; Status DC Pantoprazole Sodium (Protonix) 40 mg DAILYAC PO Last administered on 09/08/18at 08:47; Start 09/04/18 at 10:00 Bisacodyl (Dulcolax Tab) 10 mg DAILY PO ; Start 09/04/18 at 10:00 Bisacodyl (Dulcolax Supp) 10 mg PRN DAILY PRN NC CONSTIPATION 1ST RECTAL CHOICE Last administered on 09/04/18at 19:38; Start 09/04/18 at 09:30 Docusate Sodium (Enemeez) 283 mg PRN DAILY PRN NC CONSTIPATION 2ND RECTAL CHOICE; Start 09/04/18 at 09:30 Gadobutrol (Gadavist) 10 mmol 1X ONCE IV Last administered on 09/04/18at 13:26 ; Start 09/04/18 at 13:30; Stop 09/04/18 at 13:31; Status DC Methylprednisolone Sodium Succinate (SOLU-Medrol 125MG VIAL) 500 mg BID IV ; Start 09/04/18 at 21:00; Status UNV Methylprednisolone Sodium Succinate 500 mg/Sodium Chloride 100 ml @ 100 mls/hr Q12HR IV Last administered on 09/07/18at 20:55; Start 09/04/18 at 21:00 Methylprednisolone Sodium Succinate 500 mg/Sodium Chloride 100 ml @ 100 mls/hr Q12HR IV ; Start 09/04/18 at 21:00; Status Cancel Oxycodone/ Acetaminophen (Percocet 5/325) 1 tab PRN Q4HRS PRN PO MODERATE PAIN Last administered on 09/07/18at 21:11; Start 09/04/18 at 13:45 Hydrocortisone Acetate (Anucort-Hc) 25 mg PRN DAILY PRN NC RECTAL PAIN; Start 09/04/18 at 13:30 Enoxaparin Sodium (Lovenox 120mg Syringe) 110 mg Q12HR SQ Last administered on 09/05/18at 21:35; Start 09/04/18 at 21:00; Stop 09/06/18 at 06:49; Status DC Lactobacillus Rhamnosus (Culturelle) 1 cap BID PO Last administered on 08:45; Start 09/04/18 at 21:00 Cefepime HCl (Maxipime) 2 gm Q8HRS IVP Last administered on 09/08/18 05:44; Start 09/05/18 at 14:00 Vancomycin HCl (Vancomycin Oral Solution) 125 mg BID PO Last administered on 08:44; Start 09/05/18 at 21:00 Acyclovir Sodium 750 mg/Dextrose 265 ml @ 265 mls/hr Q8HRS IV Last administered on 09/08/18 05:44; Start 09/05/18 at 14:00 Doxycycline Hyclate (Vibra-Tab) 100 mg BID PO Last administered on 09/07/18 20 :54; Start 09/05/18 at 21:00 Info (Anti-Coagulation Monitoring By Pharmacy) 1 each PRN DAILY PRN MC SEE COMMENTS Last administered on 09/07/18 15:56; Start 09/05/18 at 14:00 Enoxaparin Sodium (Lovenox 120mg Syringe) 120 mg Q12HR SQ ; Start 09/06/18 at 06 :49; Status Cancel Enoxaparin Sodium (Lovenox 120mg Syringe) 120 mg Q12HR SQ Last administered on 09/06/18 08:39; Start 09/06/18 at 09:00; Stop 09/06/18 at 16:44; Status DC Cetirizine HCl (ZyrTEC) 10 mg DAILY PO Last administered on 09/06/18at 15:12; Start 09/04/18 at 11:00; Stop 09/06/18 at 15:53; Status DC Insulin Human Lispro (HumaLOG) 0-7 UNITS TIDWMEALS SQ Last administered on 09/08 07:45; Start 09/06/18 at 17:00 Dextrose (Dextrose 50%-Water Syringe) 12.5 gm PRN Q15MIN PRN IV SEE COMMENTS; Start 09/06/18 at 12:30 Multivitamins (Thera M Plus) 1 tab DAILY PO Last administered on 09/08/18 08: 46; Start 09/06/18 at 14:00 Calcium Carbonate/ Glycine (Oscal) 500 mg DAILY PO Last administered on 08:46; Start 09/06/18 at 14:00 Thiamine Mononitrate (Vitamin B-1) 100 mg DAILY PO Last administered on at 08:46; Start 09/06/18 at 14:00 Cetirizine HCl (ZyrTEC) 10 mg DAILY PO Last administered on 09/08/18at 08:47; Start 09/06/18 at 15:00 Rivaroxaban (Xarelto) 15 mg BIDWMEALS PO Last administered on 09/06/18at 17:23; Start 09/06/18 at 17:00; Stop 09/07/18 at 08:22; Status DC Enoxaparin Sodium (Lovenox Per Pharmacy Treatment Dosing) 1 each PRN DAILY PRN MC SEE COMMENTS; Start 09/07/18 at 11:15 Enoxaparin Sodium (Lovenox 120mg Syringe) 120 mg Q12HR SQ Last administered on 09/07/18at 20:55; Start 09/07/18 at 11:15 Gabapentin (Neurontin) 100 mg TID PO Last administered on 09/08/18at 08:45; Start 09/07/18 at 21:00 Active Scripts Active Cipro (Ciprofloxacin Hcl) 500 Mg Tablet 1 Tab PO BID Aspirin Ec (Aspirin) 81 Mg Tablet.dr 81 Mg PO DAILYWBKFT 30 Days Colace (Docusate Sodium) 100 Mg Capsule 100 Mg PO PRN DAILY PRN 30 Days Polyethylene Glycol 3350 17 Gm Powd.pack 17 Gm PO PRN DAILY PRN 14 Days Flomax (Tamsulosin Hcl) 0.4 Mg Cap.er.24h 0.4 Mg PO BID 30 Days Reported Percocet 5-325 Mg Tablet (Oxycodone/Acetaminophen) 1 Each Tablet 1-2 Tab PO Q4-6HRS Exforge 10-320 Mg Tablet (Amlodipine/Valsartan) 1 Each Tablet 1 Tab PO DAILY Crestor (Rosuvastatin Calcium) 10 Mg Tablet 1 Tab PO DAILY Toprol Xl (Metoprolol Succinate) 50 Mg Tab.er.24h 1 Tab PO DAILY Vitals/I & O Vital Sign - Last 24 Hours 09/07/18 09/07/18 09/07/18 09/07/18 09:02 09:03 09:03 09:07 Pulse 90 90 90 B/P (MAP) 134/74 131/74 131/74 O2 Delivery Room Air 09/07/18 09/07/18 09/07/18 09/07/18 11:00 15:00 15:31 19:00 Temp 98.6 98.5 97.6 98.6 98.5 97.6 Pulse 88 81 77 Resp 20 18 20 B/P (MAP) 127/71 (89) 131/71 (91) 121/68 (85) Pulse Ox 94 92 96 O2 Delivery Room Air Room Air Room Air 09/07/18 09/07/18 09/07/18 09/07/18 20:15 21:11 22:28 23:00 Temp 97.8 97.8 Pulse 56 Resp 20 B/P (MAP) 112/64 (80) Pulse Ox 95 O2 Delivery Room Air Room Air Room Air 09/08/18 09/08/18 09/08/18 09/08/18 03:00 07:00 08:45 08:45 Temp 97.5 97.6 97.5 97.6 Pulse 68 85 85 85 Resp 20 20 B/P (MAP) 132/77 (95) 133/83 (100) 133/83 133/83 Pulse Ox 95 91 O2 Delivery Room Air 09/08/18 08:47 Pulse 85 B/P (MAP) 133/83 Intake and Output 09/07/18 09/07/18 09/08/18 14:59 22:59 06:59 Intake Total 100 ml 385 ml Output Total 1000 ml Balance 100 ml -615 ml GALILEA MOREIRA MD Sep 08, 2018 09:00
[2018-09-08] MEDS: oxyCODONE/APAP 5/325 1 TAB TABLET PO PRN ×3 (09:04→21:35)
--- NOTE | 2018-09-08 09:08 | PDOC ---
PROGRESS NOTES Subjective Subjective Late entry patient seen at 1030 09/07/18 no new complaints pain well controlled Objective Objective Vital Signs Date Time Temp Pulse Resp B/P (MAP) Pulse Ox O2 Delivery O2 Flow Rate FiO2 09/08/18 08:47 85 133/83 09/08/18 07:00 97.6 20 91 Room Air 97.6 Intake and Output 09/08/18 07:00 Intake Total 485 ml Output Total 1000 ml Balance -515 ml Intake Oral 120 ml IV Total 365 ml Output Urine Total 1000 ml Physical Exam General: Alert, Oriented X3, Cooperative, No acute distress Neuro: Other (no significant change) Plan Plan of Care plan for plasma exchange Sunday steroids per neurology continue PT encouraged turning Comment Review of Relevant I have reviewed the following items franc (where applicable) has been applied. Labs Laboratory Tests Test 09/06/18 16:52 09/07/18 03:20 09/07/18 08:06 09/07/18 12:04 Glucose (Fingerstick) 177 mg/dL (70-99) 165 mg/dL (70-99) 130 mg/dL (70-99) White Blood Count 10.1 x10^3/uL (4.0-11.0) Red Blood Count 4.49 x10^6/uL (4.30-5.70) Hemoglobin 13.2 g/dL (13.0-17.5) Hematocrit 40.3 % (39.0-53.0) Mean Corpuscular Volume 90 fL (79-100) Mean Corpuscular Hemoglobin 30 pg (25-35) Mean Corpuscular Hemoglobin Concent 33 g/dL (31-37) Red Cell Distribution Width 14.1 % (11.5-14.5) Platelet Count 208 x10^3/uL (140-400) Neutrophils (%) (Auto) 93 % (31-73) Lymphocytes (%) (Auto) 5 % (24-48) Monocytes (%) (Auto) 2 % (0-9) Eosinophils (%) (Auto) 0 % (0-3) Basophils (%) (Auto) 0 % (0-3) Neutrophils # (Auto) 9.4 x10^3uL (1.8-7.7) Lymphocytes # (Auto) 0.5 x10^3/uL (1.0-4.8) Monocytes # (Auto) 0.2 x10^3/uL (0.0-1.1) Eosinophils # (Auto) 0.0 x10^3/uL (0.0-0.7) Basophils # (Auto) 0.0 x10^3/uL (0.0-0.2) Sodium Level 137 mmol/L (136-145) Potassium Level 3.9 mmol/L (3.5-5.1) Chloride Level 102 mmol/L (98-107) Carbon Dioxide Level 24 mmol/L (21-32) Anion Gap 11 (6-14) Blood Urea Nitrogen 32 mg/dL (8-26) Creatinine 0.9 mg/dL (0.7-1.3) Estimated GFR (Cockcroft-Gault) 84.7 Glucose Level 133 mg/dL (70-99) Calcium Level 8.5 mg/dL (8.5-10.1) Test 09/07/18 16:58 09/07/18 21:02 Glucose (Fingerstick) 190 mg/dL (70-99) 161 mg/dL (70-99) Laboratory Tests Test 09/07/18 12:04 09/07/18 16:58 09/07/18 21:02 Glucose (Fingerstick) 130 mg/dL (70-99) 190 mg/dL (70-99) 161 mg/dL (70-99) Microbiology 09/05/18 CSF Gram Stain - Final, Complete 09/03/18 Urine Culture - Final, Complete 09/03/18 Urine Culture Result 1 (LUIS M) - Final, Complete Medications Current Medications Gadobutrol (Gadavist) 10 mmol 1X ONCE IV Last administered on 09/03/18at 15:35 ; Start 09/03/18 at 15:15; Stop 09/03/18 at 15:16; Status DC Aspirin (Ecotrin) 81 mg DAILYWBKFT PO Last administered on 09/08/18at 08:46; Start 09/03/18 at 16:30 Docusate Sodium (Colace) 100 mg PRN DAILY PRN PO HARD STOOLS; Start 09/03/18 at 15:30 Tamsulosin HCl (Flomax) 0.4 mg BID PO Last administered on 09/07/18at 20:54; Start 09/03/18 at 21:00 Non-Formulary Medication (Amlodipine/ Valsartan (Exforge 10-320 Mg Tablet)) 1 tab DAILY PO ; Start 09/04/18 at 09:00; Status UNV Metoprolol Succinate (Toprol Xl) 50 mg DAILY PO Last administered on 09/08/18 08:45; Start 09/03/18 at 16:30 Polyethylene Glycol (miraLAX PACKET) 17 gm PRN DAILY PRN PO CONSTIPATION 2ND CHOICE; Start 09/04/18 at 09:00 Atorvastatin Calcium (Lipitor) 40 mg QHS PO Last administered on 09/05/18 21: 01; Start 09/03/18 at 21:00; Stop 09/06/18 at 15:52; Status DC Oxycodone/ Acetaminophen (Percocet 5/325) 1 tab PRN Q4HRS PRN PO PAIN; Start at 15:30; Stop 09/03/18 at 17:31; Status DC Amlodipine Besylate (Norvasc) 10 mg DAILY PO Last administered on 09/08/18 08: 47; Start 09/03/18 at 16:30 Losartan Potassium (Cozaar) 100 mg DAILY PO Last administered on 09/08/18 08: 45; Start 09/03/18 at 16:30 Oxycodone/ Acetaminophen (Percocet 5/325) 1 tab PRN Q6HRS PRN PO MODERATE PAIN Last administered on 09/04/18 11:07; Start 09/03/18 at 17:30; Stop 09/04/18 at 13:35; Status DC Ciprofloxacin (Cipro) 500 mg BID PO Last administered on 09/05/18 08:27; Start 09/03/18 at 21:00; Stop 09/05/18 at 13:20; Status DC Oxycodone/ Acetaminophen (Percocet 5/325) 2 tab PRN Q6HRS PRN PO SEVERE PAIN; Start 09/03/18 at 17:45 Acetaminophen (Tylenol) 650 mg PRN Q4HRS PRN PO MILD PAIN Last administered on 09/03/18 21:01; Start 09/03/18 at 18:45 Enoxaparin Sodium (Lovenox 120mg Syringe) 120 mg Q12HR SQ Last administered on 09/04/18at 07:55; Start 09/04/18 at 09:00; Stop 09/04/18 at 15:42; Status DC Methylprednisolone (Medrol) 8 mg BID PO Last administered on 09/04/18at 11:06; Start 09/04/18 at 10:00; Stop 09/04/18 at 13:28; Status DC Methylprednisolone (Medrol) 4 mg BIDPCLD PO ; Start 09/04/18 at 12:30; Stop at 13:28; Status DC Methylprednisolone (Medrol) 4 mg TIDPC PO ; Start 09/05/18 at 08:30; Stop at 08:30; Status DC Methylprednisolone (Medrol) 8 mg QHS PO ; Start 09/05/18 at 21:00; Stop at 21:00; Status DC Methylprednisolone (Medrol) 4 mg QIDAFTMEAL PO ; Start 09/06/18 at 09:00; Stop 09/06/18 at 09:00; Status DC Methylprednisolone (Medrol) 4 mg TID PO ; Start 09/07/18 at 09:00; Stop at 09:00; Status DC Methylprednisolone (Medrol) 4 mg BID PO ; Start 09/08/18 at 09:00; Stop at 09:00; Status DC Methylprednisolone (Medrol) 4 mg DAILY PO ; Start 09/09/18 at 09:00; Stop at 09:00; Status DC Pantoprazole Sodium (Protonix) 40 mg DAILYAC PO Last administered on 09/08/18at 08:47; Start 09/04/18 at 10:00 Bisacodyl (Dulcolax Tab) 10 mg DAILY PO ; Start 09/04/18 at 10:00 Bisacodyl (Dulcolax Supp) 10 mg PRN DAILY PRN ID CONSTIPATION 1ST RECTAL CHOICE Last administered on 09/04/18at 19:38; Start 09/04/18 at 09:30 Docusate Sodium (Enemeez) 283 mg PRN DAILY PRN ID CONSTIPATION 2ND RECTAL CHOICE; Start 09/04/18 at 09:30 Gadobutrol (Gadavist) 10 mmol 1X ONCE IV Last administered on 09/04/18at 13:26 ; Start 09/04/18 at 13:30; Stop 09/04/18 at 13:31; Status DC Methylprednisolone Sodium Succinate (SOLU-Medrol 125MG VIAL) 500 mg BID IV ; Start 09/04/18 at 21:00; Status UNV Methylprednisolone Sodium Succinate 500 mg/Sodium Chloride 100 ml @ 100 mls/hr Q12HR IV Last administered on 09/07/18 20:55; Start 09/04/18 at 21:00 Methylprednisolone Sodium Succinate 500 mg/Sodium Chloride 100 ml @ 100 mls/hr Q12HR IV ; Start 09/04/18 at 21:00; Status Cancel Oxycodone/ Acetaminophen (Percocet 5/325) 1 tab PRN Q4HRS PRN PO MODERATE PAIN Last administered on 09/07/18 21:11; Start 09/04/18 at 13:45 Hydrocortisone Acetate (Anucort-Hc) 25 mg PRN DAILY PRN ID RECTAL PAIN; Start 09/04/18 at 13:30 Enoxaparin Sodium (Lovenox 120mg Syringe) 110 mg Q12HR SQ Last administered on 09/05/18 21:35; Start 09/04/18 at 21:00; Stop 09/06/18 at 06:49; Status DC Lactobacillus Rhamnosus (Culturelle) 1 cap BID PO Last administered on 08:45; Start 09/04/18 at 21:00 Cefepime HCl (Maxipime) 2 gm Q8HRS IVP Last administered on 09/08/18 05:44; Start 09/05/18 at 14:00 Vancomycin HCl (Vancomycin Oral Solution) 125 mg BID PO Last administered on 08:44; Start 09/05/18 at 21:00 Acyclovir Sodium 750 mg/Dextrose 265 ml @ 265 mls/hr Q8HRS IV Last administered on 09/08/18 05:44; Start 09/05/18 at 14:00 Doxycycline Hyclate (Vibra-Tab) 100 mg BID PO Last administered on 09/07/18 20 :54; Start 09/05/18 at 21:00 Info (Anti-Coagulation Monitoring By Pharmacy) 1 each PRN DAILY PRN MC SEE COMMENTS Last administered on 09/07/18 15:56; Start 09/05/18 at 14:00 Enoxaparin Sodium (Lovenox 120mg Syringe) 120 mg Q12HR SQ ; Start 09/06/18 at 06 :49; Status Cancel Enoxaparin Sodium (Lovenox 120mg Syringe) 120 mg Q12HR SQ Last administered on 09/06/18 08:39; Start 09/06/18 at 09:00; Stop 09/06/18 at 16:44; Status DC Cetirizine HCl (ZyrTEC) 10 mg DAILY PO Last administered on 09/06/18at 15:12; Start 09/04/18 at 11:00; Stop 09/06/18 at 15:53; Status DC Insulin Human Lispro (HumaLOG) 0-7 UNITS TIDWMEALS SQ Last administered on 09/08 07:45; Start 09/06/18 at 17:00 Dextrose (Dextrose 50%-Water Syringe) 12.5 gm PRN Q15MIN PRN IV SEE COMMENTS; Start 09/06/18 at 12:30 Multivitamins (Thera M Plus) 1 tab DAILY PO Last administered on 09/08/18 08: 46; Start 09/06/18 at 14:00 Calcium Carbonate/ Glycine (Oscal) 500 mg DAILY PO Last administered on 08:46; Start 09/06/18 at 14:00 Thiamine Mononitrate (Vitamin B-1) 100 mg DAILY PO Last administered on 08:46; Start 09/06/18 at 14:00 Cetirizine HCl (ZyrTEC) 10 mg DAILY PO Last administered on 09/08/18 08:47; Start 09/06/18 at 15:00 Rivaroxaban (Xarelto) 15 mg BIDWMEALS PO Last administered on 09/06/18 17:23; Start 09/06/18 at 17:00; Stop 09/07/18 at 08:22; Status DC Enoxaparin Sodium (Lovenox Per Pharmacy Treatment Dosing) 1 each PRN DAILY PRN MC SEE COMMENTS; Start 09/07/18 at 11:15 Enoxaparin Sodium (Lovenox 120mg Syringe) 120 mg Q12HR SQ Last administered on 09/07/18at 20:55; Start 09/07/18 at 11:15 Gabapentin (Neurontin) 100 mg TID PO Last administered on 09/08/18 08:45; Start 09/07/18 at 21:00 Active Scripts Active Cipro (Ciprofloxacin Hcl) 500 Mg Tablet 1 Tab PO BID Aspirin Ec (Aspirin) 81 Mg Tablet.dr 81 Mg PO DAILYWBKFT 30 Days Colace (Docusate Sodium) 100 Mg Capsule 100 Mg PO PRN DAILY PRN 30 Days Polyethylene Glycol 3350 17 Gm Powd.pack 17 Gm PO PRN DAILY PRN 14 Days Flomax (Tamsulosin Hcl) 0.4 Mg Cap.er.24h 0.4 Mg PO BID 30 Days Reported Percocet 5-325 Mg Tablet (Oxycodone/Acetaminophen) 1 Each Tablet 1-2 Tab PO Q4-6HRS Exforge 10-320 Mg Tablet (Amlodipine/Valsartan) 1 Each Tablet 1 Tab PO DAILY Crestor (Rosuvastatin Calcium) 10 Mg Tablet 1 Tab PO DAILY Toprol Xl (Metoprolol Succinate) 50 Mg Tab.er.24h 1 Tab PO DAILY Vitals/I & O Vital Sign - Last 24 Hours 09/07/18 09/07/18 09/07/18 09/07/18 09:07 11:00 15:00 15:31 Temp 98.6 98.5 98.6 98.5 Pulse 88 81 Resp 20 18 B/P (MAP) 127/71 (89) 131/71 (91) Pulse Ox 94 92 O2 Delivery Room Air Room Air Room Air Room Air 09/07/18 09/07/18 09/07/18 09/07/18 19:00 20:15 21:11 22:28 Temp 97.6 97.6 Pulse 77 Resp 20 B/P (MAP) 121/68 (85) Pulse Ox 96 O2 Delivery Room Air Room Air Room Air 09/07/18 09/08/18 09/08/18 09/08/18 23:00 03:00 07:00 08:45 Temp 97.8 97.5 97.6 97.8 97.5 97.6 Pulse 56 68 85 85 Resp 20 20 20 B/P (MAP) 112/64 (80) 132/77 (95) 133/83 (100) 133/83 Pulse Ox 95 95 91 O2 Delivery Room Air 09/08/18 09/08/18 08:45 08:47 Pulse 85 85 B/P (MAP) 133/83 133/83 Intake and Output 09/07/18 09/07/18 09/08/18 15:00 23:00 07:00 Intake Total 100 ml 385 ml Output Total 1000 ml Balance 100 ml -615 ml FELICITY DORANTES MD Sep 08, 2018 09:08
[2018-09-08] MEDS: methylPREDNISolone SOD SUCC 500 MG in IV NORMAL SALINE 100ML 100 ML IV SCH ×2 (09:24→21:27)
[2018-09-08] MEDS: DOXYCYCLINE HYCLATE 100 MG TABLET PO SCH ×2 (09:24→21:28)
[2018-09-08 09:56] LABS: BASO % 0 % (0-3); EOS % 0 % (0-3); HEMATOCRIT 45.4 % (39.0-53.0); LYMPH # 0.4 x10^3/uL (1.0-4.8); LYMPH % 5 % (24-48); MEAN CORPUSCULAR HEMOGLOBIN 30 pg (25-35); MEAN CORPUSCULAR HGB CONC 33 g/dL (31-37); MEAN CORPUSCULAR VOLUME 91 fL (79-100); MONO # 0.3 x10^3/uL (0.0-1.1); MONO % 3 % (0-9); NEUT # 7.3 x10^3uL (1.8-7.7); NEUT % 92 % (31-73); PLATELET COUNT 231 x10^3/uL (140-400); RED BLOOD COUNT 4.97 x10^6/uL (4.30-5.70); RED CELL DISTRIBUTION WIDTH 14.4 % (11.5-14.5); WHITE BLOOD COUNT 7.9 x10^3/uL (4.0-11.0)
[2018-09-08 10:02] LABS: CALCIUM 8.7 mg/dL (8.5-10.1); CREATININE 0.9 mg/dL (0.7-1.3); GFR 84.7; POTASSIUM 3.8 mmol/L (3.5-5.1)
[2018-09-08 11:00] VITALS: BP 139/77
--- NOTE | 2018-09-08 12:08 | PDOC ---
PROGRESS NOTES Subjective Subjective no new complaints feels stronger today Objective Objective Vital Signs Date Time Temp Pulse Resp B/P (MAP) Pulse Ox O2 Delivery O2 Flow Rate FiO2 09/08/18 11:00 97.4 90 18 139/77 (97) 94 Room Air 97.4 Intake and Output 09/08/18 07:00 Intake Total 485 ml Output Total 1000 ml Balance -515 ml Intake Oral 120 ml IV Total 365 ml Output Urine Total 1000 ml Physical Exam Neuro: Other (left quadriceps strength improved today otherwise no change) Plan Plan of Care plasma exchange tomorrow steroids per neurology PT Encouraged turning Comment Review of Relevant I have reviewed the following items franc (where applicable) has been applied. Labs Laboratory Tests Test 09/06/18 16:52 09/07/18 03:20 09/07/18 08:06 09/07/18 12:04 Glucose (Fingerstick) 177 mg/dL (70-99) 165 mg/dL (70-99) 130 mg/dL (70-99) White Blood Count 10.1 x10^3/uL (4.0-11.0) Red Blood Count 4.49 x10^6/uL (4.30-5.70) Hemoglobin 13.2 g/dL (13.0-17.5) Hematocrit 40.3 % (39.0-53.0) Mean Corpuscular Volume 90 fL (79-100) Mean Corpuscular Hemoglobin 30 pg (25-35) Mean Corpuscular Hemoglobin Concent 33 g/dL (31-37) Red Cell Distribution Width 14.1 % (11.5-14.5) Platelet Count 208 x10^3/uL (140-400) Neutrophils (%) (Auto) 93 % (31-73) Lymphocytes (%) (Auto) 5 % (24-48) Monocytes (%) (Auto) 2 % (0-9) Eosinophils (%) (Auto) 0 % (0-3) Basophils (%) (Auto) 0 % (0-3) Neutrophils # (Auto) 9.4 x10^3uL (1.8-7.7) Lymphocytes # (Auto) 0.5 x10^3/uL (1.0-4.8) Monocytes # (Auto) 0.2 x10^3/uL (0.0-1.1) Eosinophils # (Auto) 0.0 x10^3/uL (0.0-0.7) Basophils # (Auto) 0.0 x10^3/uL (0.0-0.2) Sodium Level 137 mmol/L (136-145) Potassium Level 3.9 mmol/L (3.5-5.1) Chloride Level 102 mmol/L (98-107) Carbon Dioxide Level 24 mmol/L (21-32) Anion Gap 11 (6-14) Blood Urea Nitrogen 32 mg/dL (8-26) Creatinine 0.9 mg/dL (0.7-1.3) Estimated GFR (Cockcroft-Gault) 84.7 Glucose Level 133 mg/dL (70-99) Calcium Level 8.5 mg/dL (8.5-10.1) Test 09/07/18 16:58 09/07/18 21:02 09/08/18 07:16 09/08/18 09:08 Glucose (Fingerstick) 190 mg/dL (70-99) 161 mg/dL (70-99) 157 mg/dL (70-99) White Blood Count 7.9 x10^3/uL (4.0-11.0) Red Blood Count 4.97 x10^6/uL (4.30-5.70) Hemoglobin 15.0 g/dL (13.0-17.5) Hematocrit 45.4 % (39.0-53.0) Mean Corpuscular Volume 91 fL (79-100) Mean Corpuscular Hemoglobin 30 pg (25-35) Mean Corpuscular Hemoglobin Concent 33 g/dL (31-37) Red Cell Distribution Width 14.4 % (11.5-14.5) Platelet Count 231 x10^3/uL (140-400) Neutrophils (%) (Auto) 92 % (31-73) Lymphocytes (%) (Auto) 5 % (24-48) Monocytes (%) (Auto) 3 % (0-9) Eosinophils (%) (Auto) 0 % (0-3) Basophils (%) (Auto) 0 % (0-3) Neutrophils # (Auto) 7.3 x10^3uL (1.8-7.7) Lymphocytes # (Auto) 0.4 x10^3/uL (1.0-4.8) Monocytes # (Auto) 0.3 x10^3/uL (0.0-1.1) Eosinophils # (Auto) 0.0 x10^3/uL (0.0-0.7) Basophils # (Auto) 0.0 x10^3/uL (0.0-0.2) Sodium Level 138 mmol/L (136-145) Potassium Level 3.8 mmol/L (3.5-5.1) Chloride Level 102 mmol/L (98-107) Carbon Dioxide Level 23 mmol/L (21-32) Anion Gap 13 (6-14) Blood Urea Nitrogen 40 mg/dL (8-26) Creatinine 0.9 mg/dL (0.7-1.3) Estimated GFR (Cockcroft-Gault) 84.7 Glucose Level 204 mg/dL (70-99) Calcium Level 8.7 mg/dL (8.5-10.1) Test 09/08/18 10:50 Glucose (Fingerstick) 173 mg/dL (70-99) Laboratory Tests Test 09/07/18 16:58 09/07/18 21:02 09/08/18 07:16 09/08/18 09:08 Glucose (Fingerstick) 190 mg/dL (70-99) 161 mg/dL (70-99) 157 mg/dL (70-99) White Blood Count 7.9 x10^3/uL (4.0-11.0) Red Blood Count 4.97 x10^6/uL (4.30-5.70) Hemoglobin 15.0 g/dL (13.0-17.5) Hematocrit 45.4 % (39.0-53.0) Mean Corpuscular Volume 91 fL (79-100) Mean Corpuscular Hemoglobin 30 pg (25-35) Mean Corpuscular Hemoglobin Concent 33 g/dL (31-37) Red Cell Distribution Width 14.4 % (11.5-14.5) Platelet Count 231 x10^3/uL (140-400) Neutrophils (%) (Auto) 92 % (31-73) Lymphocytes (%) (Auto) 5 % (24-48) Monocytes (%) (Auto) 3 % (0-9) Eosinophils (%) (Auto) 0 % (0-3) Basophils (%) (Auto) 0 % (0-3) Neutrophils # (Auto) 7.3 x10^3uL (1.8-7.7) Lymphocytes # (Auto) 0.4 x10^3/uL (1.0-4.8) Monocytes # (Auto) 0.3 x10^3/uL (0.0-1.1) Eosinophils # (Auto) 0.0 x10^3/uL (0.0-0.7) Basophils # (Auto) 0.0 x10^3/uL (0.0-0.2) Sodium Level 138 mmol/L (136-145) Potassium Level 3.8 mmol/L (3.5-5.1) Chloride Level 102 mmol/L (98-107) Carbon Dioxide Level 23 mmol/L (21-32) Anion Gap 13 (6-14) Blood Urea Nitrogen 40 mg/dL (8-26) Creatinine 0.9 mg/dL (0.7-1.3) Estimated GFR (Cockcroft-Gault) 84.7 Glucose Level 204 mg/dL (70-99) Calcium Level 8.7 mg/dL (8.5-10.1) Test 09/08/18 10:50 Glucose (Fingerstick) 173 mg/dL (70-99) Microbiology 09/05/18 CSF Gram Stain - Final, Complete 09/03/18 Urine Culture - Final, Complete 09/03/18 Urine Culture Result 1 (LUIS M) - Final, Complete Medications Current Medications Gadobutrol (Gadavist) 10 mmol 1X ONCE IV Last administered on 09/03/18at 15:35 ; Start 09/03/18 at 15:15; Stop 09/03/18 at 15:16; Status DC Aspirin (Ecotrin) 81 mg DAILYWBKFT PO Last administered on 09/08/18at 08:46; Start 09/03/18 at 16:30 Docusate Sodium (Colace) 100 mg PRN DAILY PRN PO HARD STOOLS; Start 09/03/18 at 15:30 Tamsulosin HCl (Flomax) 0.4 mg BID PO Last administered on 09/08/18at 09:00; Start 09/03/18 at 21:00; Stop 09/08/18 at 10:46; Status DC Non-Formulary Medication (Amlodipine/ Valsartan (Exforge 10-320 Mg Tablet)) 1 tab DAILY PO ; Start 09/04/18 at 09:00; Status UNV Metoprolol Succinate (Toprol Xl) 50 mg DAILY PO Last administered on 09/08/18at 08:45; Start 09/03/18 at 16:30 Polyethylene Glycol (miraLAX PACKET) 17 gm PRN DAILY PRN PO CONSTIPATION 2ND CHOICE; Start 09/04/18 at 09:00 Atorvastatin Calcium (Lipitor) 40 mg QHS PO Last administered on 09/05/18at 21: 01; Start 09/03/18 at 21:00; Stop 09/06/18 at 15:52; Status DC Oxycodone/ Acetaminophen (Percocet 5/325) 1 tab PRN Q4HRS PRN PO PAIN; Start at 15:30; Stop 09/03/18 at 17:31; Status DC Amlodipine Besylate (Norvasc) 10 mg DAILY PO Last administered on 09/08/18 08: 47; Start 09/03/18 at 16:30 Losartan Potassium (Cozaar) 100 mg DAILY PO Last administered on 09/08/18 08: 45; Start 09/03/18 at 16:30 Oxycodone/ Acetaminophen (Percocet 5/325) 1 tab PRN Q6HRS PRN PO MODERATE PAIN Last administered on 09/04/18at 11:07; Start 09/03/18 at 17:30; Stop 09/04/18 at 13:35; Status DC Ciprofloxacin (Cipro) 500 mg BID PO Last administered on 09/05/18 08:27; Start 09/03/18 at 21:00; Stop 09/05/18 at 13:20; Status DC Oxycodone/ Acetaminophen (Percocet 5/325) 2 tab PRN Q6HRS PRN PO SEVERE PAIN; Start 09/03/18 at 17:45 Acetaminophen (Tylenol) 650 mg PRN Q4HRS PRN PO MILD PAIN Last administered on 09/03/18at 21:01; Start 09/03/18 at 18:45 Enoxaparin Sodium (Lovenox 120mg Syringe) 120 mg Q12HR SQ Last administered on 09/04/18 07:55; Start 09/04/18 at 09:00; Stop 09/04/18 at 15:42; Status DC Methylprednisolone (Medrol) 8 mg BID PO Last administered on 09/04/18at 11:06; Start 09/04/18 at 10:00; Stop 09/04/18 at 13:28; Status DC Methylprednisolone (Medrol) 4 mg BIDPCLD PO ; Start 09/04/18 at 12:30; Stop at 13:28; Status DC Methylprednisolone (Medrol) 4 mg TIDPC PO ; Start 09/05/18 at 08:30; Stop at 08:30; Status DC Methylprednisolone (Medrol) 8 mg QHS PO ; Start 09/05/18 at 21:00; Stop at 21:00; Status DC Methylprednisolone (Medrol) 4 mg QIDAFTMEAL PO ; Start 09/06/18 at 09:00; Stop 09/06/18 at 09:00; Status DC Methylprednisolone (Medrol) 4 mg TID PO ; Start 09/07/18 at 09:00; Stop at 09:00; Status DC Methylprednisolone (Medrol) 4 mg BID PO ; Start 09/08/18 at 09:00; Stop at 09:00; Status DC Methylprednisolone (Medrol) 4 mg DAILY PO ; Start 09/09/18 at 09:00; Stop at 09:00; Status DC Pantoprazole Sodium (Protonix) 40 mg DAILYAC PO Last administered on 09/08/18at 08:47; Start 09/04/18 at 10:00 Bisacodyl (Dulcolax Tab) 10 mg DAILY PO ; Start 09/04/18 at 10:00 Bisacodyl (Dulcolax Supp) 10 mg PRN DAILY PRN [place] CONSTIPATION 1ST RECTAL CHOICE Last administered on 09/04/18at 19:38; Start 09/04/18 at 09:30 Docusate Sodium (Enemeez) 283 mg PRN DAILY PRN [place] CONSTIPATION 2ND RECTAL CHOICE; Start 09/04/18 at 09:30 Gadobutrol (Gadavist) 10 mmol 1X ONCE IV Last administered on 09/04/18at 13:26 ; Start 09/04/18 at 13:30; Stop 09/04/18 at 13:31; Status DC Methylprednisolone Sodium Succinate (SOLU-Medrol 125MG VIAL) 500 mg BID IV ; Start 09/04/18 at 21:00; Status UNV Methylprednisolone Sodium Succinate 500 mg/Sodium Chloride 100 ml @ 100 mls/hr Q12HR IV Last administered on 09/08/18 09:24; Start 09/04/18 at 21:00 Methylprednisolone Sodium Succinate 500 mg/Sodium Chloride 100 ml @ 100 mls/hr Q12HR IV ; Start 09/04/18 at 21:00; Status Cancel Oxycodone/ Acetaminophen (Percocet 5/325) 1 tab PRN Q4HRS PRN PO MODERATE PAIN Last administered on 09/08/18 09:04; Start 09/04/18 at 13:45 Hydrocortisone Acetate (Anucort-Hc) 25 mg PRN DAILY PRN [place] RECTAL PAIN; Start 09/04/18 at 13:30 Enoxaparin Sodium (Lovenox 120mg Syringe) 110 mg Q12HR SQ Last administered on 09/05/18 21:35; Start 09/04/18 at 21:00; Stop 09/06/18 at 06:49; Status DC Lactobacillus Rhamnosus (Culturelle) 1 cap BID PO Last administered on 08:45; Start 09/04/18 at 21:00 Cefepime HCl (Maxipime) 2 gm Q8HRS IVP Last administered on 09/08/18 05:44; Start 09/05/18 at 14:00 Vancomycin HCl (Vancomycin Oral Solution) 125 mg BID PO Last administered on 08:44; Start 09/05/18 at 21:00 Acyclovir Sodium 750 mg/Dextrose 265 ml @ 265 mls/hr Q8HRS IV Last administered on 09/08/18 05:44; Start 09/05/18 at 14:00 Doxycycline Hyclate (Vibra-Tab) 100 mg BID PO Last administered on 09/08/18 09 :24; Start 09/05/18 at 21:00 Info (Anti-Coagulation Monitoring By Pharmacy) 1 each PRN DAILY PRN MC SEE COMMENTS Last administered on 09/07/18 15:56; Start 09/05/18 at 14:00 Enoxaparin Sodium (Lovenox 120mg Syringe) 120 mg Q12HR SQ ; Start 09/06/18 at 06 :49; Status Cancel Enoxaparin Sodium (Lovenox 120mg Syringe) 120 mg Q12HR SQ Last administered on 09/06/18 08:39; Start 09/06/18 at 09:00; Stop 09/06/18 at 16:44; Status DC Cetirizine HCl (ZyrTEC) 10 mg DAILY PO Last administered on 09/06/18at 15:12; Start 09/04/18 at 11:00; Stop 09/06/18 at 15:53; Status DC Insulin Human Lispro (HumaLOG) 0-7 UNITS TIDWMEALS SQ Last administered on 09/08 12:02; Start 09/06/18 at 17:00 Dextrose (Dextrose 50%-Water Syringe) 12.5 gm PRN Q15MIN PRN IV SEE COMMENTS; Start 09/06/18 at 12:30 Multivitamins (Thera M Plus) 1 tab DAILY PO Last administered on 09/08/18 08: 46; Start 09/06/18 at 14:00 Calcium Carbonate/ Glycine (Oscal) 500 mg DAILY PO Last administered on 08:46; Start 09/06/18 at 14:00 Thiamine Mononitrate (Vitamin B-1) 100 mg DAILY PO Last administered on 08:46; Start 09/06/18 at 14:00 Cetirizine HCl (ZyrTEC) 10 mg DAILY PO Last administered on 09/08/18 08:47; Start 09/06/18 at 15:00 Rivaroxaban (Xarelto) 15 mg BIDWMEALS PO Last administered on 09/06/18 17:23; Start 09/06/18 at 17:00; Stop 09/07/18 at 08:22; Status DC Enoxaparin Sodium (Lovenox Per Pharmacy Treatment Dosing) 1 each PRN DAILY PRN MC SEE COMMENTS; Start 09/07/18 at 11:15 Enoxaparin Sodium (Lovenox 120mg Syringe) 120 mg Q12HR SQ Last administered on 09/08/18 09:24; Start 09/07/18 at 11:15 Gabapentin (Neurontin) 100 mg TID PO Last administered on 09/08/18 08:45; Start 09/07/18 at 21:00 Active Scripts Active Cipro (Ciprofloxacin Hcl) 500 Mg Tablet 1 Tab PO BID Aspirin Ec (Aspirin) 81 Mg Tablet. 81 Mg PO DAILYWBKFT 30 Days Colace (Docusate Sodium) 100 Mg Capsule 100 Mg PO PRN DAILY PRN 30 Days Polyethylene Glycol 3350 17 Gm Powd.pack 17 Gm PO PRN DAILY PRN 14 Days Flomax (Tamsulosin Hcl) 0.4 Mg Cap.er.24h 0.4 Mg PO BID 30 Days Reported Percocet 5-325 Mg Tablet (Oxycodone/Acetaminophen) 1 Each Tablet 1-2 Tab PO Q4-6HRS Exforge 10-320 Mg Tablet (Amlodipine/Valsartan) 1 Each Tablet 1 Tab PO DAILY Crestor (Rosuvastatin Calcium) 10 Mg Tablet 1 Tab PO DAILY Toprol Xl (Metoprolol Succinate) 50 Mg Tab.er.24h 1 Tab PO DAILY Vitals/I & O Vital Sign - Last 24 Hours 09/07/18 09/07/18 09/07/18 09/07/18 15:00 15:31 19:00 20:15 Temp 98.5 97.6 98.5 97.6 Pulse 81 77 Resp 18 20 B/P (MAP) 131/71 (91) 121/68 (85) Pulse Ox 92 96 O2 Delivery Room Air Room Air Room Air 09/07/18 09/07/18 09/08/18 09/08/18 21:11 23:00 03:00 07:00 Temp 97.8 97.5 97.6 97.8 97.5 97.6 Pulse 56 68 85 Resp 20 20 20 B/P (MAP) 112/64 (80) 132/77 (95) 133/83 (100) Pulse Ox 95 95 91 O2 Delivery Room Air Room Air 09/08/18 09/08/18 09/08/18 09/08/18 08:45 08:45 08:47 09:04 Pulse 85 85 85 B/P (MAP) 133/83 133/83 133/83 O2 Delivery Room Air 09/08/18 09/08/18 10:04 11:00 Temp 97.4 97.4 Pulse 90 Resp 18 B/P (MAP) 139/77 (97) Pulse Ox 94 O2 Delivery Room Air Room Air Intake and Output 09/07/18 09/07/18 09/08/18 15:00 23:00 07:00 Intake Total 100 ml 385 ml Output Total 1000 ml Balance 100 ml -615 ml FELICITY DORANTES MD Sep 08, 2018 12:08
--- NOTE | 2018-09-08 12:14 | PDOC ---
Infectious Disease Note Subjective Subjective Comfortable Feeling the sensation of a BM coming on Moving RLE more Loss of bladder/bowel control Denies F/C/S/N/V/D ROS ROS HPI otherwise neg Vital Sign Vital Signs Vital Signs Date Time Temp Pulse Resp B/P (MAP) Pulse Ox O2 Delivery O2 Flow Rate FiO2 09/08/18 11:00 97.4 90 18 139/77 (97) 94 Room Air 97.4 Physical Exam PHYSICAL EXAM GENERAL: Propped up in bed, alert, smiling HEENT: Oropharynx clear NECK: Supple. LUNGS: Clear bilaterally. No wheezing. HEART: S1, S2. ABDOMEN: Obese, soft, NT EXTREMITIES: Bilateral trace pedal edema. NEUROLOGIC: Alert and oriented x 3. Lower extremity weakness bilaterally SPINE: Back incision well healed, nontender. No surrounding redness or erythema. SKIN: Warm, dry. No generalized rash. PIV, right forearm, new Labs Lab Laboratory Tests Test 09/07/18 16:58 09/07/18 21:02 09/08/18 07:16 09/08/18 09:08 Glucose (Fingerstick) 190 mg/dL (70-99) 161 mg/dL (70-99) 157 mg/dL (70-99) White Blood Count 7.9 x10^3/uL (4.0-11.0) Red Blood Count 4.97 x10^6/uL (4.30-5.70) Hemoglobin 15.0 g/dL (13.0-17.5) Hematocrit 45.4 % (39.0-53.0) Mean Corpuscular Volume 91 fL (79-100) Mean Corpuscular Hemoglobin 30 pg (25-35) Mean Corpuscular Hemoglobin Concent 33 g/dL (31-37) Red Cell Distribution Width 14.4 % (11.5-14.5) Platelet Count 231 x10^3/uL (140-400) Neutrophils (%) (Auto) 92 % (31-73) Lymphocytes (%) (Auto) 5 % (24-48) Monocytes (%) (Auto) 3 % (0-9) Eosinophils (%) (Auto) 0 % (0-3) Basophils (%) (Auto) 0 % (0-3) Neutrophils # (Auto) 7.3 x10^3uL (1.8-7.7) Lymphocytes # (Auto) 0.4 x10^3/uL (1.0-4.8) Monocytes # (Auto) 0.3 x10^3/uL (0.0-1.1) Eosinophils # (Auto) 0.0 x10^3/uL (0.0-0.7) Basophils # (Auto) 0.0 x10^3/uL (0.0-0.2) Sodium Level 138 mmol/L (136-145) Potassium Level 3.8 mmol/L (3.5-5.1) Chloride Level 102 mmol/L (98-107) Carbon Dioxide Level 23 mmol/L (21-32) Anion Gap 13 (6-14) Blood Urea Nitrogen 40 mg/dL (8-26) Creatinine 0.9 mg/dL (0.7-1.3) Estimated GFR (Cockcroft-Gault) 84.7 Glucose Level 204 mg/dL (70-99) Calcium Level 8.7 mg/dL (8.5-10.1) Test 09/08/18 10:50 Glucose (Fingerstick) 173 mg/dL (70-99) Micro URINE CULTURE RES 1 Final Mixed urogenital dima CSF ANAEROBIC-AEROBIC CULTURE PENDING ANAEROBIC RES 1 PENDING AEROBIC CULT PENDING AEROBIC RES 1 PENDING GRAM STAIN Final Final report GRAM STAIN RES 1 Final Comment No white blood cells seen. 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 CSF WBC 13, other studies noted , likely noninfectious -s/p LP. Opening pressure 20cm. CSF WBC 13, glucose 76, TP 86.4. No organisms seen. cx pending -HSV and HIV negative; CMV IgM <0.30. 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 Urinary retention, neurogenic bladder, requiring straight catheterization for 2 months. UC no growth Recurrent urinary tract infection, 07/2018 pansensitive Escherichia coli, treated with ciprofloxacin. History of Clostridium difficile, 07/2018, treated, no recurrence. Status post laminectomy, 06/30/2018, L3-L5. Bilateral lower extremity weakness. Hyperlipidemia. Hypertension. Hyperglycemia. Non-occlusive thrombus, right posterior tibial and peroneal vein H/O seasonal allergies. Plan Plan of Care Acyclovir since 09/05 Cefepime and doxycycline since 09/05 p.o. vancomycin prophylaxis, b.i.d. dosing. Steroids f/u cultures/serologies Awaiting plasmapheresis D/w Attending Co-Sign Attending Co-Sign The patient was seen and interviewed as well as examined at the bedside. The chart was reviewed. The case was discussed. Agree with the plan of care. BEATRICE RO APRN Sep 08, 2018 12:14 MILIND GUZMAN MD Sep 08, 2018 16:17
[2018-09-08 15:00] VITALS: BP 121/71
--- NOTE | 2018-09-08 16:22 | RAD ---
Single view chest dated 09/08/2018: Comparison made to 07/20/2018. Clinical Indication: Questionable lung mass.. Findings: Single upright portable exam of the chest was performed. Heart size and mediastinal contours are within normal limits given technique. The lungs are clear without evidence of focal consolidation. Vascular interstitium is within normal limits. No apparent parenchymal nodule or mass. Impression:: 1. No acute radiographic abnormality. 2. No definite lung mass on this portable chest x-ray. If there is persistent clinical concern, PA and lateral exam or CT would be more accurate. Electronically signed by: Warner Fernández MD (09/08/2018 4:19 PM) [facility]
--- NOTE | 2018-09-08 16:26 | PDOC ---
PROGRESS NOTES Assessment Assessment T9-10 transverse myelitis. Paraplegia below T10. Worsening of LE weakness for 2-3 days before admission. LE weakness since 06/2018. Urinary incontinence since 06/2018. Bowel dysfunction. Fever, recurrent intermittent in the past 2-3 months. Recurrent UTIs in the past 2-3 months. HTN. HLD. PVCs, chronic. Hypocalcemia. Lumbar spine stenosis s/p surgery. Degenerative spine and disc diseases. DVT. Obesity. RECOMMENDATIONS/PLAN: IV Solu-Medrol 500 mg IV bid x 5 days till Sunday. Plasma exchange thereafter planned to start on Sunday09/09/18. Consulted Nephrology. Lab: [facility], outpatient [facility] [place]. Monitoring BP, HR, CBC, glucose level and signs of GI bleeding. Treat medical diseases. Consulted ID. Ca++ supplement. Vit B1 100 mg daily. Neurontin 300 mg tid. OT/PT. Discussed with his on a daily basis. Brain MRI w/wo contrast: Unremarkable. CSF on 09/05/18: WBC 13, mono 98%, RBC 7. Protein 86.4, glucose 76. Gram stain: no organism seen. TSH: 1.83, B12 1152. CK 48. ESR 24, CRP 39.9. HISTORY OF THE PRESENT ILLNESS: This is a 63-year-old male patient with past medical history of Equina syndrome since 06/2018 and had surgery on or about 06/28/2018. He stated he uses Parker cath about 4 times a day since due to urinary retention and he had frequent UTIs. He stated he had fever comes and goes in the past 2 to 3 months. He stated he felt decreased sensation from his lower abdomen down to feet and weakness in LE, but unable to ambulate in the past 3 days except bed resting. He stated he also had feelings of tingling and numbness in his thighs and side of his abdomen and feelings of unsteadiness and generalized weakness in his lower extremities as well as urinary retention since 06/28/18. After L-spine surgery, his urinary retention still existed, but hiw weakness in Le improved and he was able to walk with a walker at home. But his weakness became worse for a week then was unable to move his LE for about 2 to 3 days kept in bed before this admission. He stated on 09/05/18 that PT/OT may make his weakness worse due to tiredness. He stated on 09/06/18 he was able to move his feet from side to side and up and down. He stated on 09/07/18 he was able to move his feet from side to side and up and down more easily then 2 days ago, but still unable to lift leg up. He stated on 09/08/18 that he felt better and continued able to move his feet from side to side and up and down. Neurontin helped in some degree for his numbness and tingling feeling in lateral abdomen area. Past Medical History Cardiovascular: HTN, Hyperlipidemia. Pulmonary: No pertinent hx CENTRAL NERVOUS SYSTEM: Periperal neuropathy GI: No pertinent hx Heme/Onc: No pertinent hx Hepatobiliary: No pertinent hx, Cholelithiasis Psych: No pertinent hx Rheumatologic: No pertinent hx Infectious disease: No pertinent hx Renal/: No pertinent hx Endocrine: No pertinent hx Past Surgical History Lumbar spinal stenosis, L3-L4. Lateral recess stenosis without epidural abscess , L5-S1. Lumbar laminectomy, L3-L4, L5-S1 with decompression of dura and nerve root. Cholecystectomy, Hip Replacement, Knee Replacement, Lumbar Laminectomy, oral surgery. Family History Heart Disease, Social History ALCOHOL: occasional Drugs: None ALLERGY: NKDA MEDICATIONS: Refer to [facility] REVIEW OF SYSTEMS: Constitutional: Obesity.. Head: No traumatic brain or head injury. Skin: No edema, or rash. Ear: No infection. Eyes: No vision loss or color blindness. Nose: No bleeding or purulent discharges. Hearing: No hearing decrease. Neck: No injury. Cardiovascular: HTN, Hyperlipidemia. Pulmonary: No pertinent hx CENTRAL NERVOUS SYSTEM: Periperal neuropathy GI: No pertinent hx Heme/Onc: No pertinent hx Hepatobiliary: No pertinent hx, Cholelithiasis Psych: No pertinent hx Musculoskeletal: Osteoarthritis, Other Rheumatologic: No pertinent hx Infectious disease: No pertinent hx Renal/: No pertinent hx Endocrine: No pertinent hx Psychiatric: Denies drug use/abuse. Otherwise, not [id number] review of systems. PHYSICAL EXAMINATION: General appearance is in subacute distress. HEENT: Normocephalic and nontraumatic. Eyes, nose, ears, and throat are unremarkable. Neck is supple. No lymphadenopathy. No crepitus. Cardiovascular: S1, S2, regular rate and rhythm. Pulmonary: Clear to auscultation bilaterally. Abdomen: Bowel sounds are positive. Abdomen is soft, nontender, and nondistended. Extremities: Edema in LE. No restriction of range of motion NEUROLOGICAL EXAMINATION: Alert Oriented to time, place and person. PERRL. EOMI. CN: no focal findings. Muscle tone: within normal in UE, decreased in LE. Muscle strength: 2+ LE. 5 UE bilateral. DTR: 2 in UE, 0 at knee and ankle. LE edema noted. Plantar reflex: No response bilaterally Gait: Unable to walk. Sensory exam: Decreased light touch, temperature and vibration sense below T11 or T12. Right LE started to improve in sensory deficits. No cerebellar signs elicited. F-T-N test fine. Objective Objective Vital Signs Date Time Temp Pulse Resp B/P (MAP) Pulse Ox O2 Delivery O2 Flow Rate FiO2 09/08/18 15:29 Room Air 09/08/18 15:00 97.5 67 18 121/71 (88) 95 97.5 Intake and Output 09/08/18 07:00 Intake Total 485 ml Output Total 1000 ml Balance -515 ml Intake Oral 120 ml IV Total 365 ml Output Urine Total 1000 ml Vitals Signs Vitals VS - Last 72 Hours, by Label Date Time Temp Pulse Resp B/P (MAP) Pulse Ox O2 Delivery O2 Flow Rate FiO2 09/08/18 15:29 Room Air 09/08/18 15:00 97.5 67 18 121/71 (88) 95 Room Air 97.5 09/08/18 14:10 Room Air 09/08/18 11:00 97.4 90 18 139/77 (97) 94 Room Air 97.4 09/08/18 09:04 Room Air 09/08/18 08:47 85 133/83 09/08/18 08:45 85 133/83 09/08/18 08:45 85 133/83 09/08/18 07:00 97.6 85 20 133/83 (100) 91 Room Air 97.6 09/08/18 03:00 97.5 68 20 132/77 (95) 95 97.5 09/07/18 23:00 97.8 56 20 112/64 (80) 95 97.8 09/07/18 21:11 Room Air 09/07/18 20:15 Room Air 09/07/18 19:00 97.6 77 20 121/68 (85) 96 97.6 09/07/18 15:31 Room Air 09/07/18 15:00 98.5 81 18 131/71 (91) 92 Room Air 98.5 09/07/18 11:00 98.6 88 20 127/71 (89) 94 Room Air 98.6 09/07/18 09:07 Room Air 09/07/18 09:03 90 131/74 09/07/18 09:03 90 131/74 09/07/18 09:02 90 134/74 09/07/18 08:00 Room Air 09/07/18 07:00 98.5 90 18 131/74 (93) 93 Room Air 98.5 Laboratory Laboratory Laboratory Tests Test 09/07/18 16:58 09/07/18 21:02 09/08/18 07:16 09/08/18 09:08 Glucose (Fingerstick) 190 mg/dL (70-99) 161 mg/dL (70-99) 157 mg/dL (70-99) White Blood Count 7.9 x10^3/uL (4.0-11.0) Red Blood Count 4.97 x10^6/uL (4.30-5.70) Hemoglobin 15.0 g/dL (13.0-17.5) Hematocrit 45.4 % (39.0-53.0) Mean Corpuscular Volume 91 fL (79-100) Mean Corpuscular Hemoglobin 30 pg (25-35) Mean Corpuscular Hemoglobin Concent 33 g/dL (31-37) Red Cell Distribution Width 14.4 % (11.5-14.5) Platelet Count 231 x10^3/uL (140-400) Neutrophils (%) (Auto) 92 % (31-73) Lymphocytes (%) (Auto) 5 % (24-48) Monocytes (%) (Auto) 3 % (0-9) Eosinophils (%) (Auto) 0 % (0-3) Basophils (%) (Auto) 0 % (0-3) Neutrophils # (Auto) 7.3 x10^3uL (1.8-7.7) Lymphocytes # (Auto) 0.4 x10^3/uL (1.0-4.8) Monocytes # (Auto) 0.3 x10^3/uL (0.0-1.1) Eosinophils # (Auto) 0.0 x10^3/uL (0.0-0.7) Basophils # (Auto) 0.0 x10^3/uL (0.0-0.2) Sodium Level 138 mmol/L (136-145) Potassium Level 3.8 mmol/L (3.5-5.1) Chloride Level 102 mmol/L (98-107) Carbon Dioxide Level 23 mmol/L (21-32) Anion Gap 13 (6-14) Blood Urea Nitrogen 40 mg/dL (8-26) Creatinine 0.9 mg/dL (0.7-1.3) Estimated GFR (Cockcroft-Gault) 84.7 Glucose Level 204 mg/dL (70-99) Calcium Level 8.7 mg/dL (8.5-10.1) Test 09/08/18 10:50 Glucose (Fingerstick) 173 mg/dL (70-99) Microbiology 09/05/18 CSF Gram Stain - Final, Complete 09/03/18 Urine Culture - Final, Complete 09/03/18 Urine Culture Result 1 (LUIS M) - Final, Complete Medication Medications Current Medications Gabapentin (Neurontin) 100 mg TID PO Last administered on 09/08/18at 14:13; Start 09/07/18 at 21:00 Methylprednisolone (Medrol) 4 mg BID PO ; Start 09/08/18 at 09:00; Stop at 09:00; Status DC Methylprednisolone (Medrol) 4 mg DAILY PO ; Start 09/09/18 at 09:00; Stop at 09:00; Status DC Comment Review of Relevant I have reviewed the following items franc (where applicable) has been applied. IVETTE REDMAN MD Sep 08, 2018 16:26
[2018-09-08 19:00] VITALS: BP 146/78
[2018-09-08 23:00] VITALS: BP 128/68
[2018-09-09 03:00] VITALS: BP 135/76
[2018-09-09 04:15] LABS: BASO % 0 % (0-3); EOS % 0 % (0-3); HEMATOCRIT 41.3 % (39.0-53.0); HEMOGLOBIN 13.9 g/dL (13.0-17.5); LYMPH # 0.4 x10^3/uL (1.0-4.8); LYMPH % 5 % (24-48); MEAN CORPUSCULAR HEMOGLOBIN 30 pg (25-35); MEAN CORPUSCULAR HGB CONC 34 g/dL (31-37); MEAN CORPUSCULAR VOLUME 90 fL (79-100); MONO # 0.2 x10^3/uL (0.0-1.1); MONO % 3 % (0-9); NEUT # 6.2 x10^3uL (1.8-7.7); NEUT % 91 % (31-73); PLATELET COUNT 208 x10^3/uL (140-400); RED BLOOD COUNT 4.61 x10^6/uL (4.30-5.70); RED CELL DISTRIBUTION WIDTH 14.4 % (11.5-14.5); WHITE BLOOD COUNT 6.8 x10^3/uL (4.0-11.0)
[2018-09-09 05:28] LABS: CALCIUM 8.1 mg/dL (8.5-10.1); CREATININE 0.8 mg/dL (0.7-1.3); POTASSIUM 3.9 mmol/L (3.5-5.1)
[2018-09-09] MEDS: CEFEPIME HCL IV Push 2 GM VIAL. IVP SCH ×3 (05:46→22:11)
[2018-09-09] MEDS: ACYCLOVIR SODIUM IV SCH ×3 (05:47→22:12)
[2018-09-09] MEDS: DEXTROSE 5% IV SCH ×3 (05:47→22:12)
[2018-09-09 07:00] VITALS: BP 101/80
[2018-09-09] MEDS: INSULIN LISPRO 300 UNITS/3 ML INSULN.PEN. SQ SCH ×3 (08:00→17:51)
[2018-09-09] MEDS: LACTOBACILLUS RHAMNOSUS GG 1 CAPSULE. PO SCH ×2 (08:23→20:23)
[2018-09-09] MEDS: GABAPENTIN 100 MG CAPSULE. PO SCH ×3 (08:24→20:23)
[2018-09-09] MEDS: METOPROLOL SUCC 24HR ER 50 MG TAB.ER.24H. PO SCH (08:24)
[2018-09-09] MEDS: BISACODYL 5 MG TABLET.DR. PO SCH (08:25)
[2018-09-09] MEDS: oxyCODONE/APAP 5/325 1 TAB TABLET PO PRN ×2 (08:25→20:22)
[2018-09-09] MEDS: CETIRIZINE HCL 10 MG TABLET. PO SCH (08:25)
[2018-09-09] MEDS: MULTIVITAMIN with MINERAL TABLET. PO SCH (08:25)
[2018-09-09] MEDS: THIAMINE 100 MG TABLET. PO SCH (08:25)
[2018-09-09] MEDS: CALCIUM CARBONATE 500 MG TABLET PO SCH (08:25)
[2018-09-09] MEDS: ASPIRIN ENTERIC COATED 81 MG TABLET.DR. PO SCH (08:25)
[2018-09-09] MEDS: PANTOPRAZOLE 40 MG TABLET.DR. PO SCH (08:26)
[2018-09-09] MEDS: DOXYCYCLINE HYCLATE 100 MG TABLET PO SCH ×2 (08:26→20:22)
[2018-09-09] MEDS: methylPREDNISolone SOD SUCC 500 MG in IV NORMAL SALINE 100ML 100 ML IV SCH (08:30)
[2018-09-09] MEDS: VANCOMYCIN 125 MG/2.5 ML ORAL SOLUTION. PO SCH ×2 (08:30→20:23)
--- NOTE | 2018-09-09 08:47 | PDOC ---
PROGRESS NOTES Chief Complaint Chief Complaint Transverse myelitis- Cauda Equina Syndrome Bilateral LE weakness S/p laminectomy (06/2018) L3-L5 Recent admission for UTI/C.Diff (07/2018) Neurogenic bladder- requiring straight cath x2 months Hyperlipidemia Essential hypertension History of Present Illness History of Present Illness Still weak, no vomiting some worse LE edema, better with ambulating, then raising has lost IV mult times, poor venous access,. have discussed PICC with nephrology - will order today Laminectomy in Jun 2018 led to neurogenic bladder, admission in 07/2018 for UTI, C.Diff, now Cauda Equina Syndrome and transverse myelitis Difficulty ambulating at home Pt and family are in good spirits today Vitals Vitals Vital Signs Date Time Temp Pulse Resp B/P (MAP) Pulse Ox O2 Delivery O2 Flow Rate FiO2 09/09/18 08:25 97 Room Air 09/09/18 08:24 67 101/80 09/09/18 07:00 97.7 17 97.7 Physical Exam Physical Exam GENERAL: Propped up in bed, alert, smiling HEENT: Oropharynx clear NECK: Supple. LUNGS: Clear bilaterally. No wheezing. HEART: S1, S2. ABDOMEN: Obese, soft, NT EXTREMITIES: Bilateral trace pedal edema. NEUROLOGIC: Alert and oriented x 3. Lower extremity weakness bilaterally SPINE: Back incision well healed, nontender. No surrounding redness or erythema. SKIN: Warm, dry. No generalized rash. PIV, right forearm, new General: Alert, Oriented X3, Cooperative, No acute distress Heart: Regular rate, No murmurs Lungs: Clear Abdomen: Normal bowel sounds, Soft, No tenderness Extremities: No cyanosis, Other (decreased muscle strength in B/L LEs, B/L LE edema up to distal thigh) Labs LABS Laboratory Tests Test 09/08/18 09:08 09/08/18 10:50 09/08/18 16:45 09/08/18 20:25 White Blood Count 7.9 x10^3/uL (4.0-11.0) Red Blood Count 4.97 x10^6/uL (4.30-5.70) Hemoglobin 15.0 g/dL (13.0-17.5) Hematocrit 45.4 % (39.0-53.0) Mean Corpuscular Volume 91 fL (79-100) Mean Corpuscular Hemoglobin 30 pg (25-35) Mean Corpuscular Hemoglobin Concent 33 g/dL (31-37) Red Cell Distribution Width 14.4 % (11.5-14.5) Platelet Count 231 x10^3/uL (140-400) Neutrophils (%) (Auto) 92 % (31-73) Lymphocytes (%) (Auto) 5 % (24-48) Monocytes (%) (Auto) 3 % (0-9) Eosinophils (%) (Auto) 0 % (0-3) Basophils (%) (Auto) 0 % (0-3) Neutrophils # (Auto) 7.3 x10^3uL (1.8-7.7) Lymphocytes # (Auto) 0.4 x10^3/uL (1.0-4.8) Monocytes # (Auto) 0.3 x10^3/uL (0.0-1.1) Eosinophils # (Auto) 0.0 x10^3/uL (0.0-0.7) Basophils # (Auto) 0.0 x10^3/uL (0.0-0.2) Sodium Level 138 mmol/L (136-145) Potassium Level 3.8 mmol/L (3.5-5.1) Chloride Level 102 mmol/L (98-107) Carbon Dioxide Level 23 mmol/L (21-32) Anion Gap 13 (6-14) Blood Urea Nitrogen 40 mg/dL (8-26) Creatinine 0.9 mg/dL (0.7-1.3) Estimated GFR (Cockcroft-Gault) 84.7 Glucose Level 204 mg/dL (70-99) Calcium Level 8.7 mg/dL (8.5-10.1) Glucose (Fingerstick) 173 mg/dL (70-99) 164 mg/dL (70-99) 178 mg/dL (70-99) Test 09/09/18 03:25 09/09/18 07:06 White Blood Count 6.8 x10^3/uL (4.0-11.0) Red Blood Count 4.61 x10^6/uL (4.30-5.70) Hemoglobin 13.9 g/dL (13.0-17.5) Hematocrit 41.3 % (39.0-53.0) Mean Corpuscular Volume 90 fL (79-100) Mean Corpuscular Hemoglobin 30 pg (25-35) Mean Corpuscular Hemoglobin Concent 34 g/dL (31-37) Red Cell Distribution Width 14.4 % (11.5-14.5) Platelet Count 208 x10^3/uL (140-400) Neutrophils (%) (Auto) 91 % (31-73) Lymphocytes (%) (Auto) 5 % (24-48) Monocytes (%) (Auto) 3 % (0-9) Eosinophils (%) (Auto) 0 % (0-3) Basophils (%) (Auto) 0 % (0-3) Neutrophils # (Auto) 6.2 x10^3uL (1.8-7.7) Lymphocytes # (Auto) 0.4 x10^3/uL (1.0-4.8) Monocytes # (Auto) 0.2 x10^3/uL (0.0-1.1) Eosinophils # (Auto) 0.0 x10^3/uL (0.0-0.7) Basophils # (Auto) 0.0 x10^3/uL (0.0-0.2) Sodium Level 137 mmol/L (136-145) Potassium Level 3.9 mmol/L (3.5-5.1) Chloride Level 104 mmol/L (98-107) Carbon Dioxide Level 25 mmol/L (21-32) Anion Gap 8 (6-14) Blood Urea Nitrogen 35 mg/dL (8-26) Creatinine 0.8 mg/dL (0.7-1.3) Estimated GFR (Cockcroft-Gault) 97.0 Glucose Level 150 mg/dL (70-99) Calcium Level 8.1 mg/dL (8.5-10.1) Glucose (Fingerstick) 153 mg/dL (70-99) Comment Review of Relevant I have reviewed the following items franc (where applicable) has been applied. Labs Laboratory Tests Test 09/07/18 12:04 09/07/18 16:58 09/07/18 21:02 09/08/18 07:16 Glucose (Fingerstick) 130 mg/dL (70-99) 190 mg/dL (70-99) 161 mg/dL (70-99) 157 mg/dL (70-99) Test 09/08/18 09:08 09/08/18 10:50 09/08/18 16:45 09/08/18 20:25 White Blood Count 7.9 x10^3/uL (4.0-11.0) Red Blood Count 4.97 x10^6/uL (4.30-5.70) Hemoglobin 15.0 g/dL (13.0-17.5) Hematocrit 45.4 % (39.0-53.0) Mean Corpuscular Volume 91 fL (79-100) Mean Corpuscular Hemoglobin 30 pg (25-35) Mean Corpuscular Hemoglobin Concent 33 g/dL (31-37) Red Cell Distribution Width 14.4 % (11.5-14.5) Platelet Count 231 x10^3/uL (140-400) Neutrophils (%) (Auto) 92 % (31-73) Lymphocytes (%) (Auto) 5 % (24-48) Monocytes (%) (Auto) 3 % (0-9) Eosinophils (%) (Auto) 0 % (0-3) Basophils (%) (Auto) 0 % (0-3) Neutrophils # (Auto) 7.3 x10^3uL (1.8-7.7) Lymphocytes # (Auto) 0.4 x10^3/uL (1.0-4.8) Monocytes # (Auto) 0.3 x10^3/uL (0.0-1.1) Eosinophils # (Auto) 0.0 x10^3/uL (0.0-0.7) Basophils # (Auto) 0.0 x10^3/uL (0.0-0.2) Sodium Level 138 mmol/L (136-145) Potassium Level 3.8 mmol/L (3.5-5.1) Chloride Level 102 mmol/L (98-107) Carbon Dioxide Level 23 mmol/L (21-32) Anion Gap 13 (6-14) Blood Urea Nitrogen 40 mg/dL (8-26) Creatinine 0.9 mg/dL (0.7-1.3) Estimated GFR (Cockcroft-Gault) 84.7 Glucose Level 204 mg/dL (70-99) Calcium Level 8.7 mg/dL (8.5-10.1) Glucose (Fingerstick) 173 mg/dL (70-99) 164 mg/dL (70-99) 178 mg/dL (70-99) Test 09/09/18 03:25 09/09/18 07:06 White Blood Count 6.8 x10^3/uL (4.0-11.0) Red Blood Count 4.61 x10^6/uL (4.30-5.70) Hemoglobin 13.9 g/dL (13.0-17.5) Hematocrit 41.3 % (39.0-53.0) Mean Corpuscular Volume 90 fL (79-100) Mean Corpuscular Hemoglobin 30 pg (25-35) Mean Corpuscular Hemoglobin Concent 34 g/dL (31-37) Red Cell Distribution Width 14.4 % (11.5-14.5) Platelet Count 208 x10^3/uL (140-400) Neutrophils (%) (Auto) 91 % (31-73) Lymphocytes (%) (Auto) 5 % (24-48) Monocytes (%) (Auto) 3 % (0-9) Eosinophils (%) (Auto) 0 % (0-3) Basophils (%) (Auto) 0 % (0-3) Neutrophils # (Auto) 6.2 x10^3uL (1.8-7.7) Lymphocytes # (Auto) 0.4 x10^3/uL (1.0-4.8) Monocytes # (Auto) 0.2 x10^3/uL (0.0-1.1) Eosinophils # (Auto) 0.0 x10^3/uL (0.0-0.7) Basophils # (Auto) 0.0 x10^3/uL (0.0-0.2) Sodium Level 137 mmol/L (136-145) Potassium Level 3.9 mmol/L (3.5-5.1) Chloride Level 104 mmol/L (98-107) Carbon Dioxide Level 25 mmol/L (21-32) Anion Gap 8 (6-14) Blood Urea Nitrogen 35 mg/dL (8-26) Creatinine 0.8 mg/dL (0.7-1.3) Estimated GFR (Cockcroft-Gault) 97.0 Glucose Level 150 mg/dL (70-99) Calcium Level 8.1 mg/dL (8.5-10.1) Glucose (Fingerstick) 153 mg/dL (70-99) Laboratory Tests Test 09/08/18 09:08 09/08/18 10:50 09/08/18 16:45 09/08/18 20:25 White Blood Count 7.9 x10^3/uL (4.0-11.0) Red Blood Count 4.97 x10^6/uL (4.30-5.70) Hemoglobin 15.0 g/dL (13.0-17.5) Hematocrit 45.4 % (39.0-53.0) Mean Corpuscular Volume 91 fL (79-100) Mean Corpuscular Hemoglobin 30 pg (25-35) Mean Corpuscular Hemoglobin Concent 33 g/dL (31-37) Red Cell Distribution Width 14.4 % (11.5-14.5) Platelet Count 231 x10^3/uL (140-400) Neutrophils (%) (Auto) 92 % (31-73) Lymphocytes (%) (Auto) 5 % (24-48) Monocytes (%) (Auto) 3 % (0-9) Eosinophils (%) (Auto) 0 % (0-3) Basophils (%) (Auto) 0 % (0-3) Neutrophils # (Auto) 7.3 x10^3uL (1.8-7.7) Lymphocytes # (Auto) 0.4 x10^3/uL (1.0-4.8) Monocytes # (Auto) 0.3 x10^3/uL (0.0-1.1) Eosinophils # (Auto) 0.0 x10^3/uL (0.0-0.7) Basophils # (Auto) 0.0 x10^3/uL (0.0-0.2) Sodium Level 138 mmol/L (136-145) Potassium Level 3.8 mmol/L (3.5-5.1) Chloride Level 102 mmol/L (98-107) Carbon Dioxide Level 23 mmol/L (21-32) Anion Gap 13 (6-14) Blood Urea Nitrogen 40 mg/dL (8-26) Creatinine 0.9 mg/dL (0.7-1.3) Estimated GFR (Cockcroft-Gault) 84.7 Glucose Level 204 mg/dL (70-99) Calcium Level 8.7 mg/dL (8.5-10.1) Glucose (Fingerstick) 173 mg/dL (70-99) 164 mg/dL (70-99) 178 mg/dL (70-99) Test 09/09/18 03:25 09/09/18 07:06 White Blood Count 6.8 x10^3/uL (4.0-11.0) Red Blood Count 4.61 x10^6/uL (4.30-5.70) Hemoglobin 13.9 g/dL (13.0-17.5) Hematocrit 41.3 % (39.0-53.0) Mean Corpuscular Volume 90 fL (79-100) Mean Corpuscular Hemoglobin 30 pg (25-35) Mean Corpuscular Hemoglobin Concent 34 g/dL (31-37) Red Cell Distribution Width 14.4 % (11.5-14.5) Platelet Count 208 x10^3/uL (140-400) Neutrophils (%) (Auto) 91 % (31-73) Lymphocytes (%) (Auto) 5 % (24-48) Monocytes (%) (Auto) 3 % (0-9) Eosinophils (%) (Auto) 0 % (0-3) Basophils (%) (Auto) 0 % (0-3) Neutrophils # (Auto) 6.2 x10^3uL (1.8-7.7) Lymphocytes # (Auto) 0.4 x10^3/uL (1.0-4.8) Monocytes # (Auto) 0.2 x10^3/uL (0.0-1.1) Eosinophils # (Auto) 0.0 x10^3/uL (0.0-0.7) Basophils # (Auto) 0.0 x10^3/uL (0.0-0.2) Sodium Level 137 mmol/L (136-145) Potassium Level 3.9 mmol/L (3.5-5.1) Chloride Level 104 mmol/L (98-107) Carbon Dioxide Level 25 mmol/L (21-32) Anion Gap 8 (6-14) Blood Urea Nitrogen 35 mg/dL (8-26) Creatinine 0.8 mg/dL (0.7-1.3) Estimated GFR (Cockcroft-Gault) 97.0 Glucose Level 150 mg/dL (70-99) Calcium Level 8.1 mg/dL (8.5-10.1) Glucose (Fingerstick) 153 mg/dL (70-99) Microbiology 09/05/18 CSF Gram Stain - Final, Complete 09/03/18 Urine Culture - Final, Complete 09/03/18 Urine Culture Result 1 (LUIS M) - Final, Complete Medications Current Medications Gadobutrol (Gadavist) 10 mmol 1X ONCE IV Last administered on 09/03/18at 15:35 ; Start 09/03/18 at 15:15; Stop 09/03/18 at 15:16; Status DC Aspirin (Ecotrin) 81 mg DAILYWBKFT PO Last administered on 09/09/18at 08:25; Start 09/03/18 at 16:30 Docusate Sodium (Colace) 100 mg PRN DAILY PRN PO HARD STOOLS; Start 09/03/18 at 15:30 Tamsulosin HCl (Flomax) 0.4 mg BID PO Last administered on 09/08/18at 09:00; Start 09/03/18 at 21:00; Stop 09/08/18 at 10:46; Status DC Non-Formulary Medication (Amlodipine/ Valsartan (Exforge 10-320 Mg Tablet)) 1 tab DAILY PO ; Start 09/04/18 at 09:00; Status UNV Metoprolol Succinate (Toprol Xl) 50 mg DAILY PO Last administered on 09/09/18at 08:24; Start 09/03/18 at 16:30 Polyethylene Glycol (miraLAX PACKET) 17 gm PRN DAILY PRN PO CONSTIPATION 2ND CHOICE; Start 09/04/18 at 09:00 Atorvastatin Calcium (Lipitor) 40 mg QHS PO Last administered on 09/05/18at 21: 01; Start 09/03/18 at 21:00; Stop 09/06/18 at 15:52; Status DC Oxycodone/ Acetaminophen (Percocet 5/325) 1 tab PRN Q4HRS PRN PO PAIN; Start at 15:30; Stop 09/03/18 at 17:31; Status DC Amlodipine Besylate (Norvasc) 10 mg DAILY PO Last administered on 09/08/18at 08: 47; Start 09/03/18 at 16:30 Losartan Potassium (Cozaar) 100 mg DAILY PO Last administered on 09/08/18at 08: 45; Start 09/03/18 at 16:30 Oxycodone/ Acetaminophen (Percocet 5/325) 1 tab PRN Q6HRS PRN PO MODERATE PAIN Last administered on 09/04/18at 11:07; Start 09/03/18 at 17:30; Stop 09/04/18 at 13:35; Status DC Ciprofloxacin (Cipro) 500 mg BID PO Last administered on 09/05/18at 08:27; Start 09/03/18 at 21:00; Stop 09/05/18 at 13:20; Status DC Oxycodone/ Acetaminophen (Percocet 5/325) 2 tab PRN Q6HRS PRN PO SEVERE PAIN; Start 09/03/18 at 17:45 Acetaminophen (Tylenol) 650 mg PRN Q4HRS PRN PO MILD PAIN Last administered on 09/03/18at 21:01; Start 09/03/18 at 18:45 Enoxaparin Sodium (Lovenox 120mg Syringe) 120 mg Q12HR SQ Last administered on 09/04/18at 07:55; Start 09/04/18 at 09:00; Stop 09/04/18 at 15:42; Status DC Methylprednisolone (Medrol) 8 mg BID PO Last administered on 09/04/18at 11:06; Start 09/04/18 at 10:00; Stop 09/04/18 at 13:28; Status DC Methylprednisolone (Medrol) 4 mg BIDPCLD PO ; Start 09/04/18 at 12:30; Stop at 13:28; Status DC Methylprednisolone (Medrol) 4 mg TIDPC PO ; Start 09/05/18 at 08:30; Stop at 08:30; Status DC Methylprednisolone (Medrol) 8 mg QHS PO ; Start 09/05/18 at 21:00; Stop at 21:00; Status DC Methylprednisolone (Medrol) 4 mg QIDAFTMEAL PO ; Start 09/06/18 at 09:00; Stop 09/06/18 at 09:00; Status DC Methylprednisolone (Medrol) 4 mg TID PO ; Start 09/07/18 at 09:00; Stop at 09:00; Status DC Methylprednisolone (Medrol) 4 mg BID PO ; Start 09/08/18 at 09:00; Stop at 09:00; Status DC Methylprednisolone (Medrol) 4 mg DAILY PO ; Start 09/09/18 at 09:00; Stop at 09:00; Status DC Pantoprazole Sodium (Protonix) 40 mg DAILYAC PO Last administered on 09/09/18 08:26; Start 09/04/18 at 10:00 Bisacodyl (Dulcolax Tab) 10 mg DAILY PO Last administered on 09/09/18at 08:25; Start 09/04/18 at 10:00 Bisacodyl (Dulcolax Supp) 10 mg PRN DAILY PRN DC CONSTIPATION 1ST RECTAL CHOICE Last administered on 09/04/18at 19:38; Start 09/04/18 at 09:30 Docusate Sodium (Enemeez) 283 mg PRN DAILY PRN DC CONSTIPATION 2ND RECTAL CHOICE; Start 09/04/18 at 09:30 Gadobutrol (Gadavist) 10 mmol 1X ONCE IV Last administered on 09/04/18at 13:26 ; Start 09/04/18 at 13:30; Stop 09/04/18 at 13:31; Status DC Methylprednisolone Sodium Succinate (SOLU-Medrol 125MG VIAL) 500 mg BID IV ; Start 09/04/18 at 21:00; Status UNV Methylprednisolone Sodium Succinate 500 mg/Sodium Chloride 100 ml @ 100 mls/hr Q12HR IV Last administered on 09/09/18at 08:30; Start 09/04/18 at 21:00 Methylprednisolone Sodium Succinate 500 mg/Sodium Chloride 100 ml @ 100 mls/hr Q12HR IV ; Start 09/04/18 at 21:00; Status Cancel Oxycodone/ Acetaminophen (Percocet 5/325) 1 tab PRN Q4HRS PRN PO MODERATE PAIN Last administered on 09/09/18at 08:25; Start 09/04/18 at 13:45 Hydrocortisone Acetate (Anucort-Hc) 25 mg PRN DAILY PRN DC RECTAL PAIN; Start 09/04/18 at 13:30 Enoxaparin Sodium (Lovenox 120mg Syringe) 110 mg Q12HR SQ Last administered on 09/05/18at 21:35; Start 09/04/18 at 21:00; Stop 09/06/18 at 06:49; Status DC Lactobacillus Rhamnosus (Culturelle) 1 cap BID PO Last administered on 08:23; Start 09/04/18 at 21:00 Cefepime HCl (Maxipime) 2 gm Q8HRS IVP Last administered on 09/09/18 05:46; Start 09/05/18 at 14:00 Vancomycin HCl (Vancomycin Oral Solution) 125 mg BID PO Last administered on 08:30; Start 09/05/18 at 21:00 Acyclovir Sodium 750 mg/Dextrose 265 ml @ 265 mls/hr Q8HRS IV Last administered on 09/09/18 05:47; Start 09/05/18 at 14:00 Doxycycline Hyclate (Vibra-Tab) 100 mg BID PO Last administered on 09/09/18 08: 26; Start 09/05/18 at 21:00 Info (Anti-Coagulation Monitoring By Pharmacy) 1 each PRN DAILY PRN MC SEE COMMENTS Last administered on 09/07/18 15:56; Start 09/05/18 at 14:00 Enoxaparin Sodium (Lovenox 120mg Syringe) 120 mg Q12HR SQ ; Start 09/06/18 at 06 :49; Status Cancel Enoxaparin Sodium (Lovenox 120mg Syringe) 120 mg Q12HR SQ Last administered on 09/06/18 08:39; Start 09/06/18 at 09:00; Stop 09/06/18 at 16:44; Status DC Cetirizine HCl (ZyrTEC) 10 mg DAILY PO Last administered on 09/06/18 15:12; Start 09/04/18 at 11:00; Stop 09/06/18 at 15:53; Status DC Insulin Human Lispro (HumaLOG) 0-7 UNITS TIDWMEALS SQ Last administered on 09/08 17:01; Start 09/06/18 at 17:00 Dextrose (Dextrose 50%-Water Syringe) 12.5 gm PRN Q15MIN PRN IV SEE COMMENTS; Start 09/06/18 at 12:30 Multivitamins (Thera M Plus) 1 tab DAILY PO Last administered on 09/09/18 08:25 ; Start 09/06/18 at 14:00 Calcium Carbonate/ Glycine (Oscal) 500 mg DAILY PO Last administered on 08:25; Start 09/06/18 at 14:00 Thiamine Mononitrate (Vitamin B-1) 100 mg DAILY PO Last administered on 08:25; Start 09/06/18 at 14:00 Cetirizine HCl (ZyrTEC) 10 mg DAILY PO Last administered on 09/09/18 08:25; Start 09/06/18 at 15:00 Rivaroxaban (Xarelto) 15 mg BIDWMEALS PO Last administered on 09/06/18at 17:23; Start 09/06/18 at 17:00; Stop 09/07/18 at 08:22; Status DC Enoxaparin Sodium (Lovenox Per Pharmacy Treatment Dosing) 1 each PRN DAILY PRN MC SEE COMMENTS; Start 09/07/18 at 11:15; Stop 09/08/18 at 12:11; Status DC Enoxaparin Sodium (Lovenox 120mg Syringe) 120 mg Q12HR SQ Last administered on 09/08/18at 09:24; Start 09/07/18 at 11:15; Stop 09/08/18 at 12:10; Status DC Gabapentin (Neurontin) 100 mg TID PO Last administered on 09/08/18at 14:13; Start 09/07/18 at 21:00; Stop 09/08/18 at 16:27; Status DC Gabapentin (Neurontin) 300 mg TID PO Last administered on 09/09/18at 08:24; Start 09/08/18 at 21:00 Active Scripts Active Cipro (Ciprofloxacin Hcl) 500 Mg Tablet 1 Tab PO BID Aspirin Ec (Aspirin) 81 Mg Tablet.dr 81 Mg PO DAILYWBKFT 30 Days Colace (Docusate Sodium) 100 Mg Capsule 100 Mg PO PRN DAILY PRN 30 Days Polyethylene Glycol 3350 17 Gm Powd.pack 17 Gm PO PRN DAILY PRN 14 Days Flomax (Tamsulosin Hcl) 0.4 Mg Cap.er.24h 0.4 Mg PO BID 30 Days Reported Percocet 5-325 Mg Tablet (Oxycodone/Acetaminophen) 1 Each Tablet 1-2 Tab PO Q4-6HRS Exforge 10-320 Mg Tablet (Amlodipine/Valsartan) 1 Each Tablet 1 Tab PO DAILY Crestor (Rosuvastatin Calcium) 10 Mg Tablet 1 Tab PO DAILY Toprol Xl (Metoprolol Succinate) 50 Mg Tab.er.24h 1 Tab PO DAILY Vitals/I & O Vital Sign - Last 24 Hours 09/08/18 09/08/18 09/08/18 09/08/18 09:04 11:00 14:10 15:00 Temp 97.4 97.5 97.4 97.5 Pulse 90 67 Resp 18 18 B/P (MAP) 139/77 (97) 121/71 (88) Pulse Ox 94 95 O2 Delivery Room Air Room Air Room Air Room Air 09/08/18 09/08/18 09/08/18 09/08/18 19:00 19:30 21:35 22:40 Temp 97.4 97.4 Pulse 77 Resp 18 B/P (MAP) 146/78 (100) Pulse Ox 95 O2 Delivery Room Air Room Air Room Air Room Air 09/08/18 09/09/18 09/09/18 09/09/18 23:00 03:00 07:00 08:24 Temp 97.5 97.3 97.7 97.5 97.3 97.7 Pulse 62 65 67 67 Resp 18 18 17 B/P (MAP) 128/68 (88) 135/76 (95) 101/80 (87) 101/80 Pulse Ox 94 92 97 O2 Delivery Room Air Room Air Room Air 09/09/18 08:25 Pulse Ox 97 O2 Delivery Room Air Intake and Output 09/08/18 09/08/18 09/09/18 14:59 22:59 06:59 Intake Total 200 ml Output Total 1200 ml Balance 200 ml -1200 ml MANDY COOMBS MD Sep 09, 2018 08:47
[2018-09-09] MEDS ORDERED: LIDOCAINE WITH 8.4% SOD BICARB 3 ML DISP.SYRIN. ONE (08:52)
[2018-09-09] MEDS ORDERED: methylPREDNISolone 4 MG TABLET. PO SCH (09:00)
[2018-09-09] MEDS: amLODIPine BESYLATE 10 MG TABLET PO SCH (09:00)
[2018-09-09] MEDS: LOSARTAN POTASSIUM 50 MG TABLET. PO SCH (09:00)
--- NOTE | 2018-09-09 09:06 | PDOC2 ---
JUSTEN SONG DARWIN 09/09/18 0906: UROLOGY CONSULT Date of Consult Date of Consult DATE: 09/09/18 TIME: 09:04 History of Present Illness Reason for Visit: This 63 year old male has a history of natalee equina syndrome and is known to us ; he is a patient of Dr. Obrien'massiel. July 03, 2018 he was admitted for a Lumbar laminectomy, L3-L4, L5-S1 with decompression of dura and nerve root by Dr. Benitez. After the procedure he developed some urinary retention and a Parker catheter was inserted. He went home with this device and followed up with Dr. Obrien at the [facility] clinic for a voiding trial, which he unfortunately failed. Since then he has been doing I and O cathing. He was admitted again on 09.03 for new findings of transverse myelitis after presenting through the ER with new complaints of inability to ambulate or hold his weight with a walker x 2-3 days. Urology was consulted today for urinary retention. Patient and spouse have been I and O cathing religiously at 1 am, 07 am, 1300 and 7 pm for the past few months. Patient is not able to void on his own at all, but is completely catheter dependent, so they are wondering if they can stop the Flomax since it does not seem to be helping at all. They are also concerned about a couple of volumes they have gotten since being in the hospital this time. They have had about 1-2 episodes of volumes around 900 and 1000 where normally the volumes out are 5-600 out. Past Medical History Cardiovascular: HTN, Hyperlipidemia, Other Pulmonary: No pertinent hx CENTRAL NERVOUS SYSTEM: Periperal neuropathy GI: No pertinent hx Heme/Onc: No pertinent hx Hepatobiliary: No pertinent hx, Cholelithiasis Psych: No pertinent hx Musculoskeletal: Osteoarthritis, Other Rheumatologic: No pertinent hx Infectious disease: No pertinent hx Renal/: No pertinent hx Endocrine: No pertinent hx Past Surgical History Past Surgical History: Other Family History Family History: Heart Disease, Other Social History No ALCOHOL: none Drugs: None Lives: with Family Current Problem List Problems: (1) Neurogenic bladder Current Medications Current Medications Current Medications Gabapentin (Neurontin) 300 mg TID PO Last administered on 09/09/18at 08:24; Start 09/08/18 at 21:00 Lidocaine/Sodium Bicarbonate (Buffered Lidocaine 1%) 3 ml STK-MED ONCE .ROUTE ; Start 09/09/18 at 08:52; Stop 09/09/18 at 08:53; Status DC Methylprednisolone (Medrol) 4 mg DAILY PO ; Start 09/09/18 at 09:00; Stop at 09:00; Status DC Allergies Allergies: Coded Allergies: No Known Drug Allergies (Unverified , 09/06/17) ROS Review Of Systems: CONSTITUTIONAL: No fever or chills EYES: No recent changes SKIN: No rash or itching CARDIOVASCULAR: No chest pain, syncope, palpitations, or edema RESPIRATORY: No SOB or cough GASTROINTESTINAL: No nausea, vomiting or abdominal pain NEUROLOGICAL: No headaches or weakness ENDOCRINE: No cold or heat intolerance GENITOURINARY: + Catheter dependent MUSCULOSKELETAL: No back pain or joint pain LYMPHATICS: No enlarged lymph nodes PSYCHIATRIC: No anxiety or depression Physical Exam Physical Exam: General: Pleasant, no acute distress, well groomed Eyes: conjunctiva anicteric, eyes full range of motion ENT: moist oral mucosa, normal dentition Neck: Trachea midline, no masses Respiratory: unlabored breathing, not using accessory muscles Abdomen: soft, obese nontender, nondistended, no hepatosplenomegaly, no masses Skin: no rashes or skin lesions on visualized skin Psych: normal mood, affect. Alert and oriented x 3. Vitals VITALS Vital Signs Date Time Temp Pulse Resp B/P (MAP) Pulse Ox O2 Delivery O2 Flow Rate FiO2 09/09/18 09:00 67 101/80 09/09/18 08:25 97 Room Air 09/09/18 07:00 97.7 17 97.7 Labs Labs Laboratory Tests Test 09/07/18 12:04 09/07/18 16:58 09/07/18 21:02 09/08/18 07:16 Glucose (Fingerstick) 130 mg/dL (70-99) 190 mg/dL (70-99) 161 mg/dL (70-99) 157 mg/dL (70-99) Test 09/08/18 09:08 09/08/18 10:50 09/08/18 16:45 09/08/18 20:25 White Blood Count 7.9 x10^3/uL (4.0-11.0) Red Blood Count 4.97 x10^6/uL (4.30-5.70) Hemoglobin 15.0 g/dL (13.0-17.5) Hematocrit 45.4 % (39.0-53.0) Mean Corpuscular Volume 91 fL (79-100) Mean Corpuscular Hemoglobin 30 pg (25-35) Mean Corpuscular Hemoglobin Concent 33 g/dL (31-37) Red Cell Distribution Width 14.4 % (11.5-14.5) Platelet Count 231 x10^3/uL (140-400) Neutrophils (%) (Auto) 92 % (31-73) Lymphocytes (%) (Auto) 5 % (24-48) Monocytes (%) (Auto) 3 % (0-9) Eosinophils (%) (Auto) 0 % (0-3) Basophils (%) (Auto) 0 % (0-3) Neutrophils # (Auto) 7.3 x10^3uL (1.8-7.7) Lymphocytes # (Auto) 0.4 x10^3/uL (1.0-4.8) Monocytes # (Auto) 0.3 x10^3/uL (0.0-1.1) Eosinophils # (Auto) 0.0 x10^3/uL (0.0-0.7) Basophils # (Auto) 0.0 x10^3/uL (0.0-0.2) Sodium Level 138 mmol/L (136-145) Potassium Level 3.8 mmol/L (3.5-5.1) Chloride Level 102 mmol/L (98-107) Carbon Dioxide Level 23 mmol/L (21-32) Anion Gap 13 (6-14) Blood Urea Nitrogen 40 mg/dL (8-26) Creatinine 0.9 mg/dL (0.7-1.3) Estimated GFR (Cockcroft-Gault) 84.7 Glucose Level 204 mg/dL (70-99) Calcium Level 8.7 mg/dL (8.5-10.1) Glucose (Fingerstick) 173 mg/dL (70-99) 164 mg/dL (70-99) 178 mg/dL (70-99) Test 09/09/18 03:25 09/09/18 07:06 White Blood Count 6.8 x10^3/uL (4.0-11.0) Red Blood Count 4.61 x10^6/uL (4.30-5.70) Hemoglobin 13.9 g/dL (13.0-17.5) Hematocrit 41.3 % (39.0-53.0) Mean Corpuscular Volume 90 fL (79-100) Mean Corpuscular Hemoglobin 30 pg (25-35) Mean Corpuscular Hemoglobin Concent 34 g/dL (31-37) Red Cell Distribution Width 14.4 % (11.5-14.5) Platelet Count 208 x10^3/uL (140-400) Neutrophils (%) (Auto) 91 % (31-73) Lymphocytes (%) (Auto) 5 % (24-48) Monocytes (%) (Auto) 3 % (0-9) Eosinophils (%) (Auto) 0 % (0-3) Basophils (%) (Auto) 0 % (0-3) Neutrophils # (Auto) 6.2 x10^3uL (1.8-7.7) Lymphocytes # (Auto) 0.4 x10^3/uL (1.0-4.8) Monocytes # (Auto) 0.2 x10^3/uL (0.0-1.1) Eosinophils # (Auto) 0.0 x10^3/uL (0.0-0.7) Basophils # (Auto) 0.0 x10^3/uL (0.0-0.2) Sodium Level 137 mmol/L (136-145) Potassium Level 3.9 mmol/L (3.5-5.1) Chloride Level 104 mmol/L (98-107) Carbon Dioxide Level 25 mmol/L (21-32) Anion Gap 8 (6-14) Blood Urea Nitrogen 35 mg/dL (8-26) Creatinine 0.8 mg/dL (0.7-1.3) Estimated GFR (Cockcroft-Gault) 97.0 Glucose Level 150 mg/dL (70-99) Calcium Level 8.1 mg/dL (8.5-10.1) Glucose (Fingerstick) 153 mg/dL (70-99) Laboratory Tests Test 09/08/18 09:08 09/08/18 10:50 09/08/18 16:45 09/08/18 20:25 White Blood Count 7.9 x10^3/uL (4.0-11.0) Red Blood Count 4.97 x10^6/uL (4.30-5.70) Hemoglobin 15.0 g/dL (13.0-17.5) Hematocrit 45.4 % (39.0-53.0) Mean Corpuscular Volume 91 fL (79-100) Mean Corpuscular Hemoglobin 30 pg (25-35) Mean Corpuscular Hemoglobin Concent 33 g/dL (31-37) Red Cell Distribution Width 14.4 % (11.5-14.5) Platelet Count 231 x10^3/uL (140-400) Neutrophils (%) (Auto) 92 % (31-73) Lymphocytes (%) (Auto) 5 % (24-48) Monocytes (%) (Auto) 3 % (0-9) Eosinophils (%) (Auto) 0 % (0-3) Basophils (%) (Auto) 0 % (0-3) Neutrophils # (Auto) 7.3 x10^3uL (1.8-7.7) Lymphocytes # (Auto) 0.4 x10^3/uL (1.0-4.8) Monocytes # (Auto) 0.3 x10^3/uL (0.0-1.1) Eosinophils # (Auto) 0.0 x10^3/uL (0.0-0.7) Basophils # (Auto) 0.0 x10^3/uL (0.0-0.2) Sodium Level 138 mmol/L (136-145) Potassium Level 3.8 mmol/L (3.5-5.1) Chloride Level 102 mmol/L (98-107) Carbon Dioxide Level 23 mmol/L (21-32) Anion Gap 13 (6-14) Blood Urea Nitrogen 40 mg/dL (8-26) Creatinine 0.9 mg/dL (0.7-1.3) Estimated GFR (Cockcroft-Gault) 84.7 Glucose Level 204 mg/dL (70-99) Calcium Level 8.7 mg/dL (8.5-10.1) Glucose (Fingerstick) 173 mg/dL (70-99) 164 mg/dL (70-99) 178 mg/dL (70-99) Test 09/09/18 03:25 09/09/18 07:06 White Blood Count 6.8 x10^3/uL (4.0-11.0) Red Blood Count 4.61 x10^6/uL (4.30-5.70) Hemoglobin 13.9 g/dL (13.0-17.5) Hematocrit 41.3 % (39.0-53.0) Mean Corpuscular Volume 90 fL (79-100) Mean Corpuscular Hemoglobin 30 pg (25-35) Mean Corpuscular Hemoglobin Concent 34 g/dL (31-37) Red Cell Distribution Width 14.4 % (11.5-14.5) Platelet Count 208 x10^3/uL (140-400) Neutrophils (%) (Auto) 91 % (31-73) Lymphocytes (%) (Auto) 5 % (24-48) Monocytes (%) (Auto) 3 % (0-9) Eosinophils (%) (Auto) 0 % (0-3) Basophils (%) (Auto) 0 % (0-3) Neutrophils # (Auto) 6.2 x10^3uL (1.8-7.7) Lymphocytes # (Auto) 0.4 x10^3/uL (1.0-4.8) Monocytes # (Auto) 0.2 x10^3/uL (0.0-1.1) Eosinophils # (Auto) 0.0 x10^3/uL (0.0-0.7) Basophils # (Auto) 0.0 x10^3/uL (0.0-0.2) Sodium Level 137 mmol/L (136-145) Potassium Level 3.9 mmol/L (3.5-5.1) Chloride Level 104 mmol/L (98-107) Carbon Dioxide Level 25 mmol/L (21-32) Anion Gap 8 (6-14) Blood Urea Nitrogen 35 mg/dL (8-26) Creatinine 0.8 mg/dL (0.7-1.3) Estimated GFR (Cockcroft-Gault) 97.0 Glucose Level 150 mg/dL (70-99) Calcium Level 8.1 mg/dL (8.5-10.1) Glucose (Fingerstick) 153 mg/dL (70-99) Assessment/Plan Assessment/Plan Neurogenic bladder: Continue I and O cathing. Increased volumes may be due to IVF, medications he is taking in due to hospitalization. If he continues to have large volumes consistently, may consider adding one more cath time. Stop Flomax: Pt does not void naturally at all so this is not helping him. Could go to rehab center from a Urology perspective, whenever medical team is ready. FENG ESQUIVEL MD 09/09/18 1217: UROLOGY CONSULT Assessment/Plan Assessment/Plan I have seen patient and examined him. He will cont to self cath. I agree with plan of care. JUSTEN SONG APRN Sep 09, 2018 09:06 FENG ESQUIVEL MD Sep 09, 2018 12:17
[2018-09-09] MEDS ORDERED: LIDOCAINE WITH 8.4% SOD BICARB 3 ML DISP.SYRIN. INJ ONE (09:30)
--- NOTE | 2018-09-09 10:19 | RAD ---
Procedure: Ultrasound and fluoroscopically guided placement of right internal jugular central venous catheter09/09/2018 10:14 AM Clinical Indication: Plasma exchange Discussion: The risks and benefits of the procedure were discussed the patient and/or their sales representative graphic art. Informed consent was obtained. A timeout procedure was performed. All elements of maximal sterile barrier technique including the use of a cap, mask, sterile gown, sterile gloves, large sterile sheet, appropriate hand hygiene, and 2% chlorhexidine for cutaneous antisepsis (or acceptable alternative antiseptic per current guidelines) were followed for this procedure. The patient was prepped and draped in the usual sterile fashion. Ultrasound interrogation of the right neck revealed patency and compressibility of the right internal jugular vein. A 21-gauge micropuncture was then used to gain access to this vein under ultrasound guidance. A hard copy ultrasound image was recorded. A guidewire was advanced centrally. 5 Malay sheath was placed. Over a wire following dilatation, dual-lumen temporary dialysis catheter was advanced centrally. Under fluoroscopy this displaces tip is at the low cavoatrial junction. Catheter was found to flush and aspirate normally. Catheter secured in place and a sterile dressing was applied. No immediate complications were identified. Total fluoroscopy time: 0.5 MIN Dose area product:: 3 Gycm2 Impression: Successful ultrasound-guided placement of right internal dual-lumen temporary dialysis catheter
[2018-09-09 11:00] VITALS: BP 159/85
--- NOTE | 2018-09-09 11:48 | PDOC ---
PROGRESS NOTES Subjective Subjective continues to feel slow improvement in LE strength was able to stand multiple times for longer with PT, had BM Pain well controlled Objective Objective Vital Signs Date Time Temp Pulse Resp B/P (MAP) Pulse Ox O2 Delivery O2 Flow Rate FiO2 09/09/18 11:07 97 Room Air 09/09/18 11:00 97.4 77 17 159/85 (109) 97.4 Intake and Output 09/09/18 06:59 Intake Total 200 ml Output Total 1200 ml Balance -1000 ml Intake Oral 200 ml Output Urine Total 1200 ml Physical Exam General: Alert, Oriented X3, Cooperative Neuro: Other (no significant change from yesterday) Plan Plan of Care plasma exchange scheduled for this afternoon, will follow for improvement encouraged turning PT Comment Review of Relevant I have reviewed the following items franc (where applicable) has been applied. Labs Laboratory Tests Test 09/07/18 12:04 09/07/18 16:58 09/07/18 21:02 09/08/18 07:16 Glucose (Fingerstick) 130 mg/dL (70-99) 190 mg/dL (70-99) 161 mg/dL (70-99) 157 mg/dL (70-99) Test 09/08/18 09:08 09/08/18 10:50 09/08/18 16:45 09/08/18 20:25 White Blood Count 7.9 x10^3/uL (4.0-11.0) Red Blood Count 4.97 x10^6/uL (4.30-5.70) Hemoglobin 15.0 g/dL (13.0-17.5) Hematocrit 45.4 % (39.0-53.0) Mean Corpuscular Volume 91 fL (79-100) Mean Corpuscular Hemoglobin 30 pg (25-35) Mean Corpuscular Hemoglobin Concent 33 g/dL (31-37) Red Cell Distribution Width 14.4 % (11.5-14.5) Platelet Count 231 x10^3/uL (140-400) Neutrophils (%) (Auto) 92 % (31-73) Lymphocytes (%) (Auto) 5 % (24-48) Monocytes (%) (Auto) 3 % (0-9) Eosinophils (%) (Auto) 0 % (0-3) Basophils (%) (Auto) 0 % (0-3) Neutrophils # (Auto) 7.3 x10^3uL (1.8-7.7) Lymphocytes # (Auto) 0.4 x10^3/uL (1.0-4.8) Monocytes # (Auto) 0.3 x10^3/uL (0.0-1.1) Eosinophils # (Auto) 0.0 x10^3/uL (0.0-0.7) Basophils # (Auto) 0.0 x10^3/uL (0.0-0.2) Sodium Level 138 mmol/L (136-145) Potassium Level 3.8 mmol/L (3.5-5.1) Chloride Level 102 mmol/L (98-107) Carbon Dioxide Level 23 mmol/L (21-32) Anion Gap 13 (6-14) Blood Urea Nitrogen 40 mg/dL (8-26) Creatinine 0.9 mg/dL (0.7-1.3) Estimated GFR (Cockcroft-Gault) 84.7 Glucose Level 204 mg/dL (70-99) Calcium Level 8.7 mg/dL (8.5-10.1) Glucose (Fingerstick) 173 mg/dL (70-99) 164 mg/dL (70-99) 178 mg/dL (70-99) Test 09/09/18 03:25 09/09/18 07:06 09/09/18 11:22 White Blood Count 6.8 x10^3/uL (4.0-11.0) Red Blood Count 4.61 x10^6/uL (4.30-5.70) Hemoglobin 13.9 g/dL (13.0-17.5) Hematocrit 41.3 % (39.0-53.0) Mean Corpuscular Volume 90 fL (79-100) Mean Corpuscular Hemoglobin 30 pg (25-35) Mean Corpuscular Hemoglobin Concent 34 g/dL (31-37) Red Cell Distribution Width 14.4 % (11.5-14.5) Platelet Count 208 x10^3/uL (140-400) Neutrophils (%) (Auto) 91 % (31-73) Lymphocytes (%) (Auto) 5 % (24-48) Monocytes (%) (Auto) 3 % (0-9) Eosinophils (%) (Auto) 0 % (0-3) Basophils (%) (Auto) 0 % (0-3) Neutrophils # (Auto) 6.2 x10^3uL (1.8-7.7) Lymphocytes # (Auto) 0.4 x10^3/uL (1.0-4.8) Monocytes # (Auto) 0.2 x10^3/uL (0.0-1.1) Eosinophils # (Auto) 0.0 x10^3/uL (0.0-0.7) Basophils # (Auto) 0.0 x10^3/uL (0.0-0.2) Sodium Level 137 mmol/L (136-145) Potassium Level 3.9 mmol/L (3.5-5.1) Chloride Level 104 mmol/L (98-107) Carbon Dioxide Level 25 mmol/L (21-32) Anion Gap 8 (6-14) Blood Urea Nitrogen 35 mg/dL (8-26) Creatinine 0.8 mg/dL (0.7-1.3) Estimated GFR (Cockcroft-Gault) 97.0 Glucose Level 150 mg/dL (70-99) Calcium Level 8.1 mg/dL (8.5-10.1) Glucose (Fingerstick) 153 mg/dL (70-99) 175 mg/dL (70-99) Laboratory Tests Test 09/08/18 16:45 09/08/18 20:25 09/09/18 03:25 09/09/18 07:06 Glucose (Fingerstick) 164 mg/dL (70-99) 178 mg/dL (70-99) 153 mg/dL (70-99) White Blood Count 6.8 x10^3/uL (4.0-11.0) Red Blood Count 4.61 x10^6/uL (4.30-5.70) Hemoglobin 13.9 g/dL (13.0-17.5) Hematocrit 41.3 % (39.0-53.0) Mean Corpuscular Volume 90 fL (79-100) Mean Corpuscular Hemoglobin 30 pg (25-35) Mean Corpuscular Hemoglobin Concent 34 g/dL (31-37) Red Cell Distribution Width 14.4 % (11.5-14.5) Platelet Count 208 x10^3/uL (140-400) Neutrophils (%) (Auto) 91 % (31-73) Lymphocytes (%) (Auto) 5 % (24-48) Monocytes (%) (Auto) 3 % (0-9) Eosinophils (%) (Auto) 0 % (0-3) Basophils (%) (Auto) 0 % (0-3) Neutrophils # (Auto) 6.2 x10^3uL (1.8-7.7) Lymphocytes # (Auto) 0.4 x10^3/uL (1.0-4.8) Monocytes # (Auto) 0.2 x10^3/uL (0.0-1.1) Eosinophils # (Auto) 0.0 x10^3/uL (0.0-0.7) Basophils # (Auto) 0.0 x10^3/uL (0.0-0.2) Sodium Level 137 mmol/L (136-145) Potassium Level 3.9 mmol/L (3.5-5.1) Chloride Level 104 mmol/L (98-107) Carbon Dioxide Level 25 mmol/L (21-32) Anion Gap 8 (6-14) Blood Urea Nitrogen 35 mg/dL (8-26) Creatinine 0.8 mg/dL (0.7-1.3) Estimated GFR (Cockcroft-Gault) 97.0 Glucose Level 150 mg/dL (70-99) Calcium Level 8.1 mg/dL (8.5-10.1) Test 09/09/18 11:22 Glucose (Fingerstick) 175 mg/dL (70-99) Microbiology 09/05/18 CSF Gram Stain - Final, Complete 09/03/18 Urine Culture - Final, Complete 09/03/18 Urine Culture Result 1 (LUIS M) - Final, Complete Medications Current Medications Gadobutrol (Gadavist) 10 mmol 1X ONCE IV Last administered on 09/03/18at 15:35 ; Start 09/03/18 at 15:15; Stop 09/03/18 at 15:16; Status DC Aspirin (Ecotrin) 81 mg DAILYWBKFT PO Last administered on 09/09/18at 08:25; Start 09/03/18 at 16:30 Docusate Sodium (Colace) 100 mg PRN DAILY PRN PO HARD STOOLS; Start 09/03/18 at 15:30 Tamsulosin HCl (Flomax) 0.4 mg BID PO Last administered on 09/08/18 09:00; Start 09/03/18 at 21:00; Stop 09/08/18 at 10:46; Status DC Non-Formulary Medication (Amlodipine/ Valsartan (Exforge 10-320 Mg Tablet)) 1 tab DAILY PO ; Start 09/04/18 at 09:00; Status UNV Metoprolol Succinate (Toprol Xl) 50 mg DAILY PO Last administered on 09/09/18at 08:24; Start 09/03/18 at 16:30 Polyethylene Glycol (miraLAX PACKET) 17 gm PRN DAILY PRN PO CONSTIPATION 2ND CHOICE; Start 09/04/18 at 09:00 Atorvastatin Calcium (Lipitor) 40 mg QHS PO Last administered on 09/05/18 21: 01; Start 09/03/18 at 21:00; Stop 09/06/18 at 15:52; Status DC Oxycodone/ Acetaminophen (Percocet 5/325) 1 tab PRN Q4HRS PRN PO PAIN; Start at 15:30; Stop 09/03/18 at 17:31; Status DC Amlodipine Besylate (Norvasc) 10 mg DAILY PO Last administered on 09/08/18at 08: 47; Start 09/03/18 at 16:30 Losartan Potassium (Cozaar) 100 mg DAILY PO Last administered on 09/08/18 08: 45; Start 09/03/18 at 16:30 Oxycodone/ Acetaminophen (Percocet 5/325) 1 tab PRN Q6HRS PRN PO MODERATE PAIN Last administered on 09/04/18at 11:07; Start 09/03/18 at 17:30; Stop 09/04/18 at 13:35; Status DC Ciprofloxacin (Cipro) 500 mg BID PO Last administered on 09/05/18 08:27; Start 09/03/18 at 21:00; Stop 09/05/18 at 13:20; Status DC Oxycodone/ Acetaminophen (Percocet 5/325) 2 tab PRN Q6HRS PRN PO SEVERE PAIN; Start 09/03/18 at 17:45 Acetaminophen (Tylenol) 650 mg PRN Q4HRS PRN PO MILD PAIN Last administered on 09/03/18at 21:01; Start 09/03/18 at 18:45 Enoxaparin Sodium (Lovenox 120mg Syringe) 120 mg Q12HR SQ Last administered on 09/04/18at 07:55; Start 09/04/18 at 09:00; Stop 09/04/18 at 15:42; Status DC Methylprednisolone (Medrol) 8 mg BID PO Last administered on 09/04/18at 11:06; Start 09/04/18 at 10:00; Stop 09/04/18 at 13:28; Status DC Methylprednisolone (Medrol) 4 mg BIDPCLD PO ; Start 09/04/18 at 12:30; Stop at 13:28; Status DC Methylprednisolone (Medrol) 4 mg TIDPC PO ; Start 09/05/18 at 08:30; Stop at 08:30; Status DC Methylprednisolone (Medrol) 8 mg QHS PO ; Start 09/05/18 at 21:00; Stop at 21:00; Status DC Methylprednisolone (Medrol) 4 mg QIDAFTMEAL PO ; Start 09/06/18 at 09:00; Stop 09/06/18 at 09:00; Status DC Methylprednisolone (Medrol) 4 mg TID PO ; Start 09/07/18 at 09:00; Stop at 09:00; Status DC Methylprednisolone (Medrol) 4 mg BID PO ; Start 09/08/18 at 09:00; Stop at 09:00; Status DC Methylprednisolone (Medrol) 4 mg DAILY PO ; Start 09/09/18 at 09:00; Stop at 09:00; Status DC Pantoprazole Sodium (Protonix) 40 mg DAILYAC PO Last administered on 09/09/18at 08:26; Start 09/04/18 at 10:00 Bisacodyl (Dulcolax Tab) 10 mg DAILY PO Last administered on 09/09/18at 08:25; Start 09/04/18 at 10:00 Bisacodyl (Dulcolax Supp) 10 mg PRN DAILY PRN HI CONSTIPATION 1ST RECTAL CHOICE Last administered on 09/04/18at 19:38; Start 09/04/18 at 09:30 Docusate Sodium (Enemeez) 283 mg PRN DAILY PRN HI CONSTIPATION 2ND RECTAL CHOICE; Start 09/04/18 at 09:30 Gadobutrol (Gadavist) 10 mmol 1X ONCE IV Last administered on 09/04/18 13:26 ; Start 09/04/18 at 13:30; Stop 09/04/18 at 13:31; Status DC Methylprednisolone Sodium Succinate (SOLU-Medrol 125MG VIAL) 500 mg BID IV ; Start 09/04/18 at 21:00; Status UNV Methylprednisolone Sodium Succinate 500 mg/Sodium Chloride 100 ml @ 100 mls/hr Q12HR IV Last administered on 09/09/18 08:30; Start 09/04/18 at 21:00 Methylprednisolone Sodium Succinate 500 mg/Sodium Chloride 100 ml @ 100 mls/hr Q12HR IV ; Start 09/04/18 at 21:00; Status Cancel Oxycodone/ Acetaminophen (Percocet 5/325) 1 tab PRN Q4HRS PRN PO MODERATE PAIN Last administered on 09/09/18 08:25; Start 09/04/18 at 13:45 Hydrocortisone Acetate (Anucort-Hc) 25 mg PRN DAILY PRN HI RECTAL PAIN; Start 09/04/18 at 13:30 Enoxaparin Sodium (Lovenox 120mg Syringe) 110 mg Q12HR SQ Last administered on 09/05/18 21:35; Start 09/04/18 at 21:00; Stop 09/06/18 at 06:49; Status DC Lactobacillus Rhamnosus (Culturelle) 1 cap BID PO Last administered on 08:23; Start 09/04/18 at 21:00 Cefepime HCl (Maxipime) 2 gm Q8HRS IVP Last administered on 09/09/18 05:46; Start 09/05/18 at 14:00 Vancomycin HCl (Vancomycin Oral Solution) 125 mg BID PO Last administered on 08:30; Start 09/05/18 at 21:00 Acyclovir Sodium 750 mg/Dextrose 265 ml @ 265 mls/hr Q8HRS IV Last administered on 09/09/18 05:47; Start 09/05/18 at 14:00 Doxycycline Hyclate (Vibra-Tab) 100 mg BID PO Last administered on 09/09/18 08: 26; Start 09/05/18 at 21:00 Info (Anti-Coagulation Monitoring By Pharmacy) 1 each PRN DAILY PRN MC SEE COMMENTS Last administered on 09/07/18at 15:56; Start 09/05/18 at 14:00 Enoxaparin Sodium (Lovenox 120mg Syringe) 120 mg Q12HR SQ ; Start 09/06/18 at 06 :49; Status Cancel Enoxaparin Sodium (Lovenox 120mg Syringe) 120 mg Q12HR SQ Last administered on 09/06/18at 08:39; Start 09/06/18 at 09:00; Stop 09/06/18 at 16:44; Status DC Cetirizine HCl (ZyrTEC) 10 mg DAILY PO Last administered on 09/06/18at 15:12; Start 09/04/18 at 11:00; Stop 09/06/18 at 15:53; Status DC Insulin Human Lispro (HumaLOG) 0-7 UNITS TIDWMEALS SQ Last administered on 09/08at 17:01; Start 09/06/18 at 17:00 Dextrose (Dextrose 50%-Water Syringe) 12.5 gm PRN Q15MIN PRN IV SEE COMMENTS; Start 09/06/18 at 12:30 Multivitamins (Thera M Plus) 1 tab DAILY PO Last administered on 09/09/18 08:25 ; Start 09/06/18 at 14:00 Calcium Carbonate/ Glycine (Oscal) 500 mg DAILY PO Last administered on 08:25; Start 09/06/18 at 14:00 Thiamine Mononitrate (Vitamin B-1) 100 mg DAILY PO Last administered on at 08:25; Start 09/06/18 at 14:00 Cetirizine HCl (ZyrTEC) 10 mg DAILY PO Last administered on 09/09/18 08:25; Start 09/06/18 at 15:00 Rivaroxaban (Xarelto) 15 mg BIDWMEALS PO Last administered on 09/06/18at 17:23; Start 09/06/18 at 17:00; Stop 09/07/18 at 08:22; Status DC Enoxaparin Sodium (Lovenox Per Pharmacy Treatment Dosing) 1 each PRN DAILY PRN MC SEE COMMENTS; Start 09/07/18 at 11:15; Stop 09/08/18 at 12:11; Status DC Enoxaparin Sodium (Lovenox 120mg Syringe) 120 mg Q12HR SQ Last administered on 09/08/18at 09:24; Start 09/07/18 at 11:15; Stop 09/08/18 at 12:10; Status DC Gabapentin (Neurontin) 100 mg TID PO Last administered on 09/08/18at 14:13; Start 09/07/18 at 21:00; Stop 09/08/18 at 16:27; Status DC Gabapentin (Neurontin) 300 mg TID PO Last administered on 09/09/18at 08:24; Start 09/08/18 at 21:00 Lidocaine/Sodium Bicarbonate (Buffered Lidocaine 1%) 3 ml STK-MED ONCE .ROUTE ; Start 09/09/18 at 08:52; Stop 09/09/18 at 08:53; Status DC Lidocaine/Sodium Bicarbonate (Buffered Lidocaine 1%) 3 ml 1X ONCE INJ Last administered on 09/09/18at 09:43; Start 09/09/18 at 09:30; Stop 09/09/18 at 09:31; Status DC Enoxaparin Sodium (Lovenox Per Pharmacy Prophylaxis Dosing) 1 each DAILY PRN MC SEE COMMENTS; Start 09/09/18 at 11:15 Enoxaparin Sodium (Lovenox 40mg Syringe) 40 mg DAILY SQ ; Start 09/09/18 at 12:00 Active Scripts Active Cipro (Ciprofloxacin Hcl) 500 Mg Tablet 1 Tab PO BID Aspirin Ec (Aspirin) 81 Mg Tablet.dr 81 Mg PO DAILYWBKFT 30 Days Colace (Docusate Sodium) 100 Mg Capsule 100 Mg PO PRN DAILY PRN 30 Days Polyethylene Glycol 3350 17 Gm Powd.pack 17 Gm PO PRN DAILY PRN 14 Days Flomax (Tamsulosin Hcl) 0.4 Mg Cap.er.24h 0.4 Mg PO BID 30 Days Reported Percocet 5-325 Mg Tablet (Oxycodone/Acetaminophen) 1 Each Tablet 1-2 Tab PO Q4-6HRS Exforge 10-320 Mg Tablet (Amlodipine/Valsartan) 1 Each Tablet 1 Tab PO DAILY Crestor (Rosuvastatin Calcium) 10 Mg Tablet 1 Tab PO DAILY Toprol Xl (Metoprolol Succinate) 50 Mg Tab.er.24h 1 Tab PO DAILY Vitals/I & O Vital Sign - Last 24 Hours 09/08/18 09/08/18 09/08/18 09/08/18 14:10 15:00 19:00 19:30 Temp 97.5 97.4 97.5 97.4 Pulse 67 77 Resp 18 18 B/P (MAP) 121/71 (88) 146/78 (100) Pulse Ox 95 95 O2 Delivery Room Air Room Air Room Air Room Air 09/08/18 09/08/18 09/09/18 09/09/18 21:35 23:00 03:00 07:00 Temp 97.5 97.3 97.7 97.5 97.3 97.7 Pulse 62 65 67 Resp 18 18 17 B/P (MAP) 128/68 (88) 135/76 (95) 101/80 (87) Pulse Ox 94 92 97 O2 Delivery Room Air Room Air Room Air Room Air 09/09/18 09/09/18 09/09/18 09/09/18 08:20 08:24 08:25 09:00 Pulse 67 67 B/P (MAP) 101/80 101/80 Pulse Ox 97 O2 Delivery Room Air Room Air 09/09/18 09/09/18 11:00 11:07 Temp 97.4 97.4 Pulse 77 Resp 17 B/P (MAP) 159/85 (109) Pulse Ox 95 97 O2 Delivery Room Air Room Air Intake and Output 09/08/18 09/08/18 09/09/18 14:59 22:59 06:59 Intake Total 200 ml Output Total 1200 ml Balance 200 ml -1200 ml DAVINA SANCHEZ APRN Sep 09, 2018 11:48
--- NOTE | 2018-09-09 11:50 | PDOC ---
Infectious Disease Note Subjective Subjective Comfortable Worked with PT today stood several times with assistance Moving RLE more Loss of bladder/bowel control Denies F/C/S/N/V/D ROS ROS o/w neg Vital Sign Vital Signs Vital Signs Date Time Temp Pulse Resp B/P (MAP) Pulse Ox O2 Delivery O2 Flow Rate FiO2 09/09/18 11:07 97 Room Air 09/09/18 11:00 97.4 77 17 159/85 (109) 97.4 Physical Exam PHYSICAL EXAM GENERAL: Propped up in bed, alert, smiling HEENT: Oropharynx clear NECK: Supple. LUNGS: Clear bilaterally. No wheezing. HEART: S1, S2. ABDOMEN: Obese, soft, NT EXTREMITIES: Bilateral trace pedal edema. NEUROLOGIC: Alert and oriented x 3. Lower extremity weakness bilaterally SPINE: Back incision well healed, nontender. No surrounding redness or erythema. SKIN: Warm, dry. No generalized rash. PIV, right forearm, new. R subclavian clean Labs Lab Laboratory Tests Test 09/08/18 16:45 09/08/18 20:25 09/09/18 03:25 09/09/18 07:06 Glucose (Fingerstick) 164 mg/dL (70-99) 178 mg/dL (70-99) 153 mg/dL (70-99) White Blood Count 6.8 x10^3/uL (4.0-11.0) Red Blood Count 4.61 x10^6/uL (4.30-5.70) Hemoglobin 13.9 g/dL (13.0-17.5) Hematocrit 41.3 % (39.0-53.0) Mean Corpuscular Volume 90 fL (79-100) Mean Corpuscular Hemoglobin 30 pg (25-35) Mean Corpuscular Hemoglobin Concent 34 g/dL (31-37) Red Cell Distribution Width 14.4 % (11.5-14.5) Platelet Count 208 x10^3/uL (140-400) Neutrophils (%) (Auto) 91 % (31-73) Lymphocytes (%) (Auto) 5 % (24-48) Monocytes (%) (Auto) 3 % (0-9) Eosinophils (%) (Auto) 0 % (0-3) Basophils (%) (Auto) 0 % (0-3) Neutrophils # (Auto) 6.2 x10^3uL (1.8-7.7) Lymphocytes # (Auto) 0.4 x10^3/uL (1.0-4.8) Monocytes # (Auto) 0.2 x10^3/uL (0.0-1.1) Eosinophils # (Auto) 0.0 x10^3/uL (0.0-0.7) Basophils # (Auto) 0.0 x10^3/uL (0.0-0.2) Sodium Level 137 mmol/L (136-145) Potassium Level 3.9 mmol/L (3.5-5.1) Chloride Level 104 mmol/L (98-107) Carbon Dioxide Level 25 mmol/L (21-32) Anion Gap 8 (6-14) Blood Urea Nitrogen 35 mg/dL (8-26) Creatinine 0.8 mg/dL (0.7-1.3) Estimated GFR (Cockcroft-Gault) 97.0 Glucose Level 150 mg/dL (70-99) Calcium Level 8.1 mg/dL (8.5-10.1) Test 09/09/18 11:22 Glucose (Fingerstick) 175 mg/dL (70-99) Micro Microbiology 09/05/18 CSF Gram Stain - Final, Complete 09/03/18 Urine Culture - Final, Complete 09/03/18 Urine Culture Result 1 (LUIS M) - Final, Complete Objective Assessment Transverse myelitis, MRI 09/03/2018. CSF WBC 13, other studies noted , likely noninfectious -s/p LP. Opening pressure 20cm. CSF WBC 13, glucose 76, TP 86.4. No organisms seen. cx pending -HSV and HIV negative; CMV IgM <0.30. Treponema neg - HAD BEEN ON STEROIDS Cauda equina syndrome, status post surgery 06/2018. Urinary retention, neurogenic bladder, requiring straight catheterization for 2 months. UC no growth Recurrent urinary tract infection, 07/2018 pansensitive Escherichia coli, treated with ciprofloxacin. History of Clostridium difficile, 07/2018, treated, no recurrence. Status post laminectomy, 06/30/2018, L3-L5. Bilateral lower extremity weakness. Hyperlipidemia. Hypertension. Hyperglycemia. Non-occlusive thrombus, right posterior tibial and peroneal vein H/O seasonal allergies. Plan Plan of Care Acyclovir since 09/05 Cefepime and doxycycline since 09/05 p.o. vancomycin prophylaxis, b.i.d. dosing. Steroids f/u cultures/serologies Awaiting plasmapheresis today D/w MILIND GUZMAN MD Sep 09, 2018 11:50
--- NOTE | 2018-09-09 11:58 | PDOC ---
PROGRESS NOTES Assessment T9-10 transverse myelitis. Paraplegia below T10. Worsening of LE weakness for 2-3 days before admission. LE weakness since 06/2018. Urinary incontinence since 06/2018. Bowel dysfunction. Fever, recurrent intermittent in the past 2-3 months. Recurrent UTIs in the past 2-3 months. HTN. HLD. PVCs, chronic. Hypocalcemia. Lumbar spine stenosis s/p surgery. Degenerative spine and disc diseases. DVT. Obesity. Plan IV Solu-Medrol 500 mg IV bid x 5 completed 09/08 Prednisone taper written Plasma exchange thereafter planned to start on Sunday09/09/18. Consulted Nephrology. Lab: NMO, outpatient basis. Monitoring BP, HR, CBC, glucose level and signs of GI bleeding. Treat medical diseases. Consulted ID. Ca++ supplement. Vit B1 100 mg daily. Neurontin 300 mg tid. OT/PT. Subjective Denies pain Objective Vital Signs Date Time Temp Pulse Resp B/P (MAP) Pulse Ox O2 Delivery O2 Flow Rate FiO2 09/09/18 11:07 97 Room Air 09/09/18 11:00 97.4 77 17 159/85 (109) 97.4 Intake and Output 09/09/18 06:59 Intake Total 200 ml Output Total 1200 ml Balance -1000 ml Intake Oral 200 ml Output Urine Total 1200 ml PHYSICAL EXAM Alert. Oriented to time, place and person. PERRL. EOMI. CN: no focal findings. Muscle tone: normal. Muscle strength: 2/5 legs, 5/5 arms DTR: 2+ arms, 0+ legs Plantar reflex: silent Gait: not examined in bed. Sensory exam: T12 sensory level. No cerebellar signs elicited. Review of Relevant I have reviewed the following items franc (where applicable) has been applied. Labs Laboratory Tests CSF on 09/05/18: WBC 13, mono 98%, RBC 7. Protein 86.4, glucose 76. Gram stain: no organism seen. Test 09/07/18 12:04 09/07/18 16:58 09/07/18 21:02 09/08/18 07:16 Glucose (Fingerstick) 130 mg/dL (70-99) 190 mg/dL (70-99) 161 mg/dL (70-99) 157 mg/dL (70-99) Test 09/08/18 09:08 09/08/18 10:50 09/08/18 16:45 09/08/18 20:25 White Blood Count 7.9 x10^3/uL (4.0-11.0) Red Blood Count 4.97 x10^6/uL (4.30-5.70) Hemoglobin 15.0 g/dL (13.0-17.5) Hematocrit 45.4 % (39.0-53.0) Mean Corpuscular Volume 91 fL (79-100) Mean Corpuscular Hemoglobin 30 pg (25-35) Mean Corpuscular Hemoglobin Concent 33 g/dL (31-37) Red Cell Distribution Width 14.4 % (11.5-14.5) Platelet Count 231 x10^3/uL (140-400) Neutrophils (%) (Auto) 92 % (31-73) Lymphocytes (%) (Auto) 5 % (24-48) Monocytes (%) (Auto) 3 % (0-9) Eosinophils (%) (Auto) 0 % (0-3) Basophils (%) (Auto) 0 % (0-3) Neutrophils # (Auto) 7.3 x10^3uL (1.8-7.7) Lymphocytes # (Auto) 0.4 x10^3/uL (1.0-4.8) Monocytes # (Auto) 0.3 x10^3/uL (0.0-1.1) Eosinophils # (Auto) 0.0 x10^3/uL (0.0-0.7) Basophils # (Auto) 0.0 x10^3/uL (0.0-0.2) Sodium Level 138 mmol/L (136-145) Potassium Level 3.8 mmol/L (3.5-5.1) Chloride Level 102 mmol/L (98-107) Carbon Dioxide Level 23 mmol/L (21-32) Anion Gap 13 (6-14) Blood Urea Nitrogen 40 mg/dL (8-26) Creatinine 0.9 mg/dL (0.7-1.3) Estimated GFR (Cockcroft-Gault) 84.7 Glucose Level 204 mg/dL (70-99) Calcium Level 8.7 mg/dL (8.5-10.1) Glucose (Fingerstick) 173 mg/dL (70-99) 164 mg/dL (70-99) 178 mg/dL (70-99) Test 09/09/18 03:25 09/09/18 07:06 09/09/18 11:22 White Blood Count 6.8 x10^3/uL (4.0-11.0) Red Blood Count 4.61 x10^6/uL (4.30-5.70) Hemoglobin 13.9 g/dL (13.0-17.5) Hematocrit 41.3 % (39.0-53.0) Mean Corpuscular Volume 90 fL (79-100) Mean Corpuscular Hemoglobin 30 pg (25-35) Mean Corpuscular Hemoglobin Concent 34 g/dL (31-37) Red Cell Distribution Width 14.4 % (11.5-14.5) Platelet Count 208 x10^3/uL (140-400) Neutrophils (%) (Auto) 91 % (31-73) Lymphocytes (%) (Auto) 5 % (24-48) Monocytes (%) (Auto) 3 % (0-9) Eosinophils (%) (Auto) 0 % (0-3) Basophils (%) (Auto) 0 % (0-3) Neutrophils # (Auto) 6.2 x10^3uL (1.8-7.7) Lymphocytes # (Auto) 0.4 x10^3/uL (1.0-4.8) Monocytes # (Auto) 0.2 x10^3/uL (0.0-1.1) Eosinophils # (Auto) 0.0 x10^3/uL (0.0-0.7) Basophils # (Auto) 0.0 x10^3/uL (0.0-0.2) Sodium Level 137 mmol/L (136-145) Potassium Level 3.9 mmol/L (3.5-5.1) Chloride Level 104 mmol/L (98-107) Carbon Dioxide Level 25 mmol/L (21-32) Anion Gap 8 (6-14) Blood Urea Nitrogen 35 mg/dL (8-26) Creatinine 0.8 mg/dL (0.7-1.3) Estimated GFR (Cockcroft-Gault) 97.0 Glucose Level 150 mg/dL (70-99) Calcium Level 8.1 mg/dL (8.5-10.1) Glucose (Fingerstick) 153 mg/dL (70-99) 175 mg/dL (70-99) Laboratory Tests Test 09/08/18 16:45 09/08/18 20:25 09/09/18 03:25 09/09/18 07:06 Glucose (Fingerstick) 164 mg/dL (70-99) 178 mg/dL (70-99) 153 mg/dL (70-99) White Blood Count 6.8 x10^3/uL (4.0-11.0) Red Blood Count 4.61 x10^6/uL (4.30-5.70) Hemoglobin 13.9 g/dL (13.0-17.5) Hematocrit 41.3 % (39.0-53.0) Mean Corpuscular Volume 90 fL (79-100) Mean Corpuscular Hemoglobin 30 pg (25-35) Mean Corpuscular Hemoglobin Concent 34 g/dL (31-37) Red Cell Distribution Width 14.4 % (11.5-14.5) Platelet Count 208 x10^3/uL (140-400) Neutrophils (%) (Auto) 91 % (31-73) Lymphocytes (%) (Auto) 5 % (24-48) Monocytes (%) (Auto) 3 % (0-9) Eosinophils (%) (Auto) 0 % (0-3) Basophils (%) (Auto) 0 % (0-3) Neutrophils # (Auto) 6.2 x10^3uL (1.8-7.7) Lymphocytes # (Auto) 0.4 x10^3/uL (1.0-4.8) Monocytes # (Auto) 0.2 x10^3/uL (0.0-1.1) Eosinophils # (Auto) 0.0 x10^3/uL (0.0-0.7) Basophils # (Auto) 0.0 x10^3/uL (0.0-0.2) Sodium Level 137 mmol/L (136-145) Potassium Level 3.9 mmol/L (3.5-5.1) Chloride Level 104 mmol/L (98-107) Carbon Dioxide Level 25 mmol/L (21-32) Anion Gap 8 (6-14) Blood Urea Nitrogen 35 mg/dL (8-26) Creatinine 0.8 mg/dL (0.7-1.3) Estimated GFR (Cockcroft-Gault) 97.0 Glucose Level 150 mg/dL (70-99) Calcium Level 8.1 mg/dL (8.5-10.1) Test 09/09/18 11:22 Glucose (Fingerstick) 175 mg/dL (70-99) Microbiology 09/05/18 CSF Gram Stain - Final, Complete 09/03/18 Urine Culture - Final, Complete 09/03/18 Urine Culture Result 1 (LUIS M) - Final, Complete Medications Current Medications Gadobutrol (Gadavist) 10 mmol 1X ONCE IV Last administered on 09/03/18at 15:35 ; Start 09/03/18 at 15:15; Stop 09/03/18 at 15:16; Status DC Aspirin (Ecotrin) 81 mg DAILYWBKFT PO Last administered on 09/09/18at 08:25; Start 09/03/18 at 16:30 Docusate Sodium (Colace) 100 mg PRN DAILY PRN PO HARD STOOLS; Start 09/03/18 at 15:30 Tamsulosin HCl (Flomax) 0.4 mg BID PO Last administered on 09/08/18at 09:00; Start 09/03/18 at 21:00; Stop 09/08/18 at 10:46; Status DC Non-Formulary Medication (Amlodipine/ Valsartan (Exforge 10-320 Mg Tablet)) 1 tab DAILY PO ; Start 09/04/18 at 09:00; Status UNV Metoprolol Succinate (Toprol Xl) 50 mg DAILY PO Last administered on 09/09/18at 08:24; Start 09/03/18 at 16:30 Polyethylene Glycol (miraLAX PACKET) 17 gm PRN DAILY PRN PO CONSTIPATION 2ND CHOICE; Start 09/04/18 at 09:00 Atorvastatin Calcium (Lipitor) 40 mg QHS PO Last administered on 09/05/18at 21: 01; Start 09/03/18 at 21:00; Stop 09/06/18 at 15:52; Status DC Oxycodone/ Acetaminophen (Percocet 5/325) 1 tab PRN Q4HRS PRN PO PAIN; Start at 15:30; Stop 09/03/18 at 17:31; Status DC Amlodipine Besylate (Norvasc) 10 mg DAILY PO Last administered on 09/08/18at 08: 47; Start 09/03/18 at 16:30 Losartan Potassium (Cozaar) 100 mg DAILY PO Last administered on 09/08/18at 08: 45; Start 09/03/18 at 16:30 Oxycodone/ Acetaminophen (Percocet 5/325) 1 tab PRN Q6HRS PRN PO MODERATE PAIN Last administered on 09/04/18at 11:07; Start 09/03/18 at 17:30; Stop 09/04/18 at 13:35; Status DC Ciprofloxacin (Cipro) 500 mg BID PO Last administered on 09/05/18at 08:27; Start 09/03/18 at 21:00; Stop 09/05/18 at 13:20; Status DC Oxycodone/ Acetaminophen (Percocet 5/325) 2 tab PRN Q6HRS PRN PO SEVERE PAIN; Start 09/03/18 at 17:45 Acetaminophen (Tylenol) 650 mg PRN Q4HRS PRN PO MILD PAIN Last administered on 09/03/18at 21:01; Start 09/03/18 at 18:45 Enoxaparin Sodium (Lovenox 120mg Syringe) 120 mg Q12HR SQ Last administered on 09/04/18at 07:55; Start 09/04/18 at 09:00; Stop 09/04/18 at 15:42; Status DC Methylprednisolone (Medrol) 8 mg BID PO Last administered on 09/04/18at 11:06; Start 09/04/18 at 10:00; Stop 09/04/18 at 13:28; Status DC Methylprednisolone (Medrol) 4 mg BIDPCLD PO ; Start 09/04/18 at 12:30; Stop at 13:28; Status DC Methylprednisolone (Medrol) 4 mg TIDPC PO ; Start 09/05/18 at 08:30; Stop at 08:30; Status DC Methylprednisolone (Medrol) 8 mg QHS PO ; Start 09/05/18 at 21:00; Stop at 21:00; Status DC Methylprednisolone (Medrol) 4 mg QIDAFTMEAL PO ; Start 09/06/18 at 09:00; Stop 09/06/18 at 09:00; Status DC Methylprednisolone (Medrol) 4 mg TID PO ; Start 09/07/18 at 09:00; Stop at 09:00; Status DC Methylprednisolone (Medrol) 4 mg BID PO ; Start 09/08/18 at 09:00; Stop at 09:00; Status DC Methylprednisolone (Medrol) 4 mg DAILY PO ; Start 09/09/18 at 09:00; Stop at 09:00; Status DC Pantoprazole Sodium (Protonix) 40 mg DAILYAC PO Last administered on 09/09/18at 08:26; Start 09/04/18 at 10:00 Bisacodyl (Dulcolax Tab) 10 mg DAILY PO Last administered on 09/09/18at 08:25; Start 09/04/18 at 10:00 Bisacodyl (Dulcolax Supp) 10 mg PRN DAILY PRN CA CONSTIPATION 1ST RECTAL CHOICE Last administered on 09/04/18at 19:38; Start 09/04/18 at 09:30 Docusate Sodium (Enemeez) 283 mg PRN DAILY PRN CA CONSTIPATION 2ND RECTAL CHOICE; Start 09/04/18 at 09:30 Gadobutrol (Gadavist) 10 mmol 1X ONCE IV Last administered on 09/04/18at 13:26 ; Start 09/04/18 at 13:30; Stop 09/04/18 at 13:31; Status DC Methylprednisolone Sodium Succinate (SOLU-Medrol 125MG VIAL) 500 mg BID IV ; Start 09/04/18 at 21:00; Status UNV Methylprednisolone Sodium Succinate 500 mg/Sodium Chloride 100 ml @ 100 mls/hr Q12HR IV Last administered on 09/09/18at 08:30; Start 09/04/18 at 21:00 Methylprednisolone Sodium Succinate 500 mg/Sodium Chloride 100 ml @ 100 mls/hr Q12HR IV ; Start 09/04/18 at 21:00; Status Cancel Oxycodone/ Acetaminophen (Percocet 5/325) 1 tab PRN Q4HRS PRN PO MODERATE PAIN Last administered on 09/09/18at 08:25; Start 09/04/18 at 13:45 Hydrocortisone Acetate (Anucort-Hc) 25 mg PRN DAILY PRN CA RECTAL PAIN; Start 09/04/18 at 13:30 Enoxaparin Sodium (Lovenox 120mg Syringe) 110 mg Q12HR SQ Last administered on 09/05/18 21:35; Start 09/04/18 at 21:00; Stop 09/06/18 at 06:49; Status DC Lactobacillus Rhamnosus (Culturelle) 1 cap BID PO Last administered on 08:23; Start 09/04/18 at 21:00 Cefepime HCl (Maxipime) 2 gm Q8HRS IVP Last administered on 09/09/18 05:46; Start 09/05/18 at 14:00 Vancomycin HCl (Vancomycin Oral Solution) 125 mg BID PO Last administered on 08:30; Start 09/05/18 at 21:00 Acyclovir Sodium 750 mg/Dextrose 265 ml @ 265 mls/hr Q8HRS IV Last administered on 09/09/18 05:47; Start 09/05/18 at 14:00 Doxycycline Hyclate (Vibra-Tab) 100 mg BID PO Last administered on 09/09/18 08: 26; Start 09/05/18 at 21:00 Info (Anti-Coagulation Monitoring By Pharmacy) 1 each PRN DAILY PRN MC SEE COMMENTS Last administered on 09/07/18at 15:56; Start 09/05/18 at 14:00 Enoxaparin Sodium (Lovenox 120mg Syringe) 120 mg Q12HR SQ ; Start 09/06/18 at 06 :49; Status Cancel Enoxaparin Sodium (Lovenox 120mg Syringe) 120 mg Q12HR SQ Last administered on 09/06/18at 08:39; Start 09/06/18 at 09:00; Stop 09/06/18 at 16:44; Status DC Cetirizine HCl (ZyrTEC) 10 mg DAILY PO Last administered on 09/06/18at 15:12; Start 09/04/18 at 11:00; Stop 09/06/18 at 15:53; Status DC Insulin Human Lispro (HumaLOG) 0-7 UNITS TIDWMEALS SQ Last administered on 09/08at 17:01; Start 09/06/18 at 17:00 Dextrose (Dextrose 50%-Water Syringe) 12.5 gm PRN Q15MIN PRN IV SEE COMMENTS; Start 09/06/18 at 12:30 Multivitamins (Thera M Plus) 1 tab DAILY PO Last administered on 09/09/18 08:25 ; Start 09/06/18 at 14:00 Calcium Carbonate/ Glycine (Oscal) 500 mg DAILY PO Last administered on at 08:25; Start 09/06/18 at 14:00 Thiamine Mononitrate (Vitamin B-1) 100 mg DAILY PO Last administered on 08:25; Start 09/06/18 at 14:00 Cetirizine HCl (ZyrTEC) 10 mg DAILY PO Last administered on 09/09/18 08:25; Start 09/06/18 at 15:00 Rivaroxaban (Xarelto) 15 mg BIDWMEALS PO Last administered on 09/06/18 17:23; Start 09/06/18 at 17:00; Stop 09/07/18 at 08:22; Status DC Enoxaparin Sodium (Lovenox Per Pharmacy Treatment Dosing) 1 each PRN DAILY PRN MC SEE COMMENTS; Start 09/07/18 at 11:15; Stop 09/08/18 at 12:11; Status DC Enoxaparin Sodium (Lovenox 120mg Syringe) 120 mg Q12HR SQ Last administered on 09/08/18at 09:24; Start 09/07/18 at 11:15; Stop 09/08/18 at 12:10; Status DC Gabapentin (Neurontin) 100 mg TID PO Last administered on 09/08/18at 14:13; Start 09/07/18 at 21:00; Stop 09/08/18 at 16:27; Status DC Gabapentin (Neurontin) 300 mg TID PO Last administered on 09/09/18at 08:24; Start 09/08/18 at 21:00 Lidocaine/Sodium Bicarbonate (Buffered Lidocaine 1%) 3 ml STK-MED ONCE .ROUTE ; Start 09/09/18 at 08:52; Stop 09/09/18 at 08:53; Status DC Lidocaine/Sodium Bicarbonate (Buffered Lidocaine 1%) 3 ml 1X ONCE INJ Last administered on 09/09/18at 09:43; Start 09/09/18 at 09:30; Stop 09/09/18 at 09:31; Status DC Enoxaparin Sodium (Lovenox Per Pharmacy Prophylaxis Dosing) 1 each DAILY PRN MC SEE COMMENTS; Start 09/09/18 at 11:15 Enoxaparin Sodium (Lovenox 40mg Syringe) 40 mg DAILY SQ ; Start 09/09/18 at 12:00 Active Scripts Active Cipro (Ciprofloxacin Hcl) 500 Mg Tablet 1 Tab PO BID Aspirin Ec (Aspirin) 81 Mg Tablet.dr 81 Mg PO DAILYWBKFT 30 Days Colace (Docusate Sodium) 100 Mg Capsule 100 Mg PO PRN DAILY PRN 30 Days Polyethylene Glycol 3350 17 Gm Powd.pack 17 Gm PO PRN DAILY PRN 14 Days Flomax (Tamsulosin Hcl) 0.4 Mg Cap.er.24h 0.4 Mg PO BID 30 Days Reported Percocet 5-325 Mg Tablet (Oxycodone/Acetaminophen) 1 Each Tablet 1-2 Tab PO Q4-6HRS Exforge 10-320 Mg Tablet (Amlodipine/Valsartan) 1 Each Tablet 1 Tab PO DAILY Crestor (Rosuvastatin Calcium) 10 Mg Tablet 1 Tab PO DAILY Toprol Xl (Metoprolol Succinate) 50 Mg Tab.er.24h 1 Tab PO DAILY Vitals/I & O Vital Sign - Last 24 Hours 09/08/18 09/08/18 09/08/18 09/08/18 14:10 15:00 19:00 19:30 Temp 97.5 97.4 97.5 97.4 Pulse 67 77 Resp 18 18 B/P (MAP) 121/71 (88) 146/78 (100) Pulse Ox 95 95 O2 Delivery Room Air Room Air Room Air Room Air 09/08/18 09/08/18 09/09/18 09/09/18 21:35 23:00 03:00 07:00 Temp 97.5 97.3 97.7 97.5 97.3 97.7 Pulse 62 65 67 Resp 18 18 17 B/P (MAP) 128/68 (88) 135/76 (95) 101/80 (87) Pulse Ox 94 92 97 O2 Delivery Room Air Room Air Room Air Room Air 09/09/18 09/09/18 09/09/18 09/09/18 08:20 08:24 08:25 09:00 Pulse 67 67 B/P (MAP) 101/80 101/80 Pulse Ox 97 O2 Delivery Room Air Room Air 09/09/18 09/09/18 11:00 11:07 Temp 97.4 97.4 Pulse 77 Resp 17 B/P (MAP) 159/85 (109) Pulse Ox 95 97 O2 Delivery Room Air Room Air Intake and Output 09/08/18 09/08/18 09/09/18 14:59 22:59 06:59 Intake Total 200 ml Output Total 1200 ml Balance 200 ml -1200 ml Images BRAIN WO/W CONTRAST, 09/04/2018 1:00 PM The scalp and calvarium are normal. The superior sagittal sinus demonstrates normal venous flow. The corpus callosum is normal in shape and signal intensity. The posterior fossa is unremarkable. The pituitary and sella are normal. The brainstem and craniocervical junction are unremarkable. There are T2/FLAIR signal hyperintense foci in the periventricular and subcortical white matter most suggestive of mild chronic small vessel ischemic changes. Diffusion weighted images reveal no hyperintensities to suggest acute cerebral infarction. Single focus of susceptibility artifact is identified in the right frontal lobe measuring 4 mm suggestive of a microhemorrhage versus less likely a cavernoma.. The ventricles are normal in size and position without evidence of hydrocephalus. There are no areas of abnormal contrast enhancement. The paranasal sinuses are normal. The visualized portions of the mastoids are unremarkable. The orbits appear normal. Normal flow voids are demonstrated in the carotid arteries and basilar artery. IMPRESSION: 1. No evidence for acute or subacute ischemia. 2. There are T2/FLAIR signal hyperintense foci in the periventricular and subcortical white matter most suggestive of mild chronic small vessel ischemic changes. Findings are atypical for demyelinating process. No enhancing lesions are identified. MR thoracic and lumbar spine without and with contrast 09/03/2018 INDICATION: Lower extremity weakness. Unable to ambulate are scanned. COMPARISON: MR thoracic and lumbar spine July 03, 2018 TECHNIQUE: Multiplanar, multisequence MR imaging of the thoracic and lumbar sinus performed with and without intravenous contrast. FINDINGS: Alignment of the thoracic spine appears normal. Vertebral body heights are maintained. Marrow signal intensity appears similar with Modic type II endplate degenerative changes are identified at T5-T6 and T7-T8. Mild to moderate anterior marginal osteophytosis is noted throughout the thoracic spine. Multilevel disc bulges appears similar compared to prior examination. There is new cord signal alteration involving the central cord from T9-T10 through the conus medullaris. There is minimal enhancement at the level of the conus medullaris. There is minimal prominence of the central ependymal canal measuring 2 mm. Appearance is most suggestive of transverse myelitis. There are areas of up to mild spinal canal stenosis, not significantly changed the prior examination. Multilevel mild neuroforaminal stenosis appears stable. Thoracic aorta is normal in caliber. No suspicious pulmonary abnormalities identified. Visualized portions of the upper abdomen appear similar. There is minimal retrolisthesis of L4 on L5. There is minimal retrolisthesis of L5 on S1. There is moderate disc height loss at L3-L4, L4-L5 and L5-S1. There is endplate irregularity with Modic type II endplate degenerative changes at L5-S1. Conus medullaris terminates at L1. Cauda equina nerve roots appear normal in appearance. Abdominal aorta is normal in caliber. There is similar appearance of the retroperitoneum. No suspicious findings are identified. Versus portions of the sacrum appear intact. L1-L2: Disc is normal in configuration. There is no neuroforaminal or spinal canal stenosis. L2-L3: There is a left central disc protrusion. There is mild right and moderate left facet arthropathy. There is mild left neuroforaminal stenosis. Mild spinal canal stenosis. Findings appear stable. L3-L4: There is a moderate disc bulge. There is moderate facet arthropathy. There is moderate bilateral neuroforaminal stenosis. Laminectomy changes are identified. No residual spinal canal stenosis is identified. There is decompression of the thecal sac. L4-L5: There is a moderate disc bulge with central disc protrusion. There is moderate facet arthropathy. There is moderate to severe bilateral neuroforaminal stenosis. No residual spinal canal stenosis status post laminectomy decompression. L5-S1: There is mild disc bulge. There is moderate facet arthropathy. There is moderate right and moderate to severe left neuroforaminal stenosis. No spinal canal stenosis. IMPRESSION: 1. New cord signal alteration involving the thoracic cord to the level of the conus from T9-T10, involving the central cord diffusely without definite cord expansion. There is enhancement involving the conus medullaris. Findings are most suggestive of transverse myelitis. 2. Postoperative changes are identified from laminectomy in the lower lumbar spine from L3 through L5 without residual spinal canal stenosis. 3. Moderate degenerative changes of the lumbar spine are described in detail above. BIANCA LOPEZ MD Sep 09, 2018 11:58
[2018-09-09] MEDS: predniSONE 20 MG TABLET PO SCH (12:10)
[2018-09-09] MEDS: ENOXAPARIN 40 MG/0.4 ML SYRINGE. SQ SCH (12:11)
--- NOTE | 2018-09-09 12:15 | RAD ---
Right lower extremity venous ultrasound, 09/09/2018 : History: Follow-up DVT Duplex evaluation including grayscale, color flow and spectral Doppler analysis was performed. Comparison is made to a study from 09/03/2018. The right common femoral, superficial femoral and popliteal veins are patent. There appears to be occlusive thrombus in one of the paired posterior tibial veins and in one of the paired peroneal veins. Comparison to the previous study is difficult due to technical differences, however, similar findings were evident on that exam. IMPRESSION: 1. No evidence of deep vein thrombosis in the right lower extremity from the level of the groin down through the popliteal fossa. 2. Ongoing thrombi in posterior tibial and peroneal veins in the right lower leg. Electronically signed by: Tom Murray MD (09/09/2018 12:12 PM) [facility]
--- NOTE | 2018-09-09 12:40 | PDOC ---
PROGRESS NOTES Subjective Subjective No new complaints. 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 Plan Plan of Care To continue present physical and occupational therapy follow up as tolerated. Comment Review of Relevant I have reviewed the following items franc (where applicable) has been applied. Labs Laboratory Tests Test 09/07/18 16:58 09/07/18 21:02 09/08/18 07:16 09/08/18 09:08 Glucose (Fingerstick) 190 mg/dL (70-99) 161 mg/dL (70-99) 157 mg/dL (70-99) White Blood Count 7.9 x10^3/uL (4.0-11.0) Red Blood Count 4.97 x10^6/uL (4.30-5.70) Hemoglobin 15.0 g/dL (13.0-17.5) Hematocrit 45.4 % (39.0-53.0) Mean Corpuscular Volume 91 fL (79-100) Mean Corpuscular Hemoglobin 30 pg (25-35) Mean Corpuscular Hemoglobin Concent 33 g/dL (31-37) Red Cell Distribution Width 14.4 % (11.5-14.5) Platelet Count 231 x10^3/uL (140-400) Neutrophils (%) (Auto) 92 % (31-73) Lymphocytes (%) (Auto) 5 % (24-48) Monocytes (%) (Auto) 3 % (0-9) Eosinophils (%) (Auto) 0 % (0-3) Basophils (%) (Auto) 0 % (0-3) Neutrophils # (Auto) 7.3 x10^3uL (1.8-7.7) Lymphocytes # (Auto) 0.4 x10^3/uL (1.0-4.8) Monocytes # (Auto) 0.3 x10^3/uL (0.0-1.1) Eosinophils # (Auto) 0.0 x10^3/uL (0.0-0.7) Basophils # (Auto) 0.0 x10^3/uL (0.0-0.2) Sodium Level 138 mmol/L (136-145) Potassium Level 3.8 mmol/L (3.5-5.1) Chloride Level 102 mmol/L (98-107) Carbon Dioxide Level 23 mmol/L (21-32) Anion Gap 13 (6-14) Blood Urea Nitrogen 40 mg/dL (8-26) Creatinine 0.9 mg/dL (0.7-1.3) Estimated GFR (Cockcroft-Gault) 84.7 Glucose Level 204 mg/dL (70-99) Calcium Level 8.7 mg/dL (8.5-10.1) Test 09/08/18 10:50 09/08/18 16:45 09/08/18 20:25 09/09/18 03:25 Glucose (Fingerstick) 173 mg/dL (70-99) 164 mg/dL (70-99) 178 mg/dL (70-99) White Blood Count 6.8 x10^3/uL (4.0-11.0) Red Blood Count 4.61 x10^6/uL (4.30-5.70) Hemoglobin 13.9 g/dL (13.0-17.5) Hematocrit 41.3 % (39.0-53.0) Mean Corpuscular Volume 90 fL (79-100) Mean Corpuscular Hemoglobin 30 pg (25-35) Mean Corpuscular Hemoglobin Concent 34 g/dL (31-37) Red Cell Distribution Width 14.4 % (11.5-14.5) Platelet Count 208 x10^3/uL (140-400) Neutrophils (%) (Auto) 91 % (31-73) Lymphocytes (%) (Auto) 5 % (24-48) Monocytes (%) (Auto) 3 % (0-9) Eosinophils (%) (Auto) 0 % (0-3) Basophils (%) (Auto) 0 % (0-3) Neutrophils # (Auto) 6.2 x10^3uL (1.8-7.7) Lymphocytes # (Auto) 0.4 x10^3/uL (1.0-4.8) Monocytes # (Auto) 0.2 x10^3/uL (0.0-1.1) Eosinophils # (Auto) 0.0 x10^3/uL (0.0-0.7) Basophils # (Auto) 0.0 x10^3/uL (0.0-0.2) Sodium Level 137 mmol/L (136-145) Potassium Level 3.9 mmol/L (3.5-5.1) Chloride Level 104 mmol/L (98-107) Carbon Dioxide Level 25 mmol/L (21-32) Anion Gap 8 (6-14) Blood Urea Nitrogen 35 mg/dL (8-26) Creatinine 0.8 mg/dL (0.7-1.3) Estimated GFR (Cockcroft-Gault) 97.0 Glucose Level 150 mg/dL (70-99) Calcium Level 8.1 mg/dL (8.5-10.1) Test 09/09/18 07:06 09/09/18 11:22 Glucose (Fingerstick) 153 mg/dL (70-99) 175 mg/dL (70-99) Laboratory Tests Test 09/08/18 16:45 09/08/18 20:25 09/09/18 03:25 09/09/18 07:06 Glucose (Fingerstick) 164 mg/dL (70-99) 178 mg/dL (70-99) 153 mg/dL (70-99) White Blood Count 6.8 x10^3/uL (4.0-11.0) Red Blood Count 4.61 x10^6/uL (4.30-5.70) Hemoglobin 13.9 g/dL (13.0-17.5) Hematocrit 41.3 % (39.0-53.0) Mean Corpuscular Volume 90 fL (79-100) Mean Corpuscular Hemoglobin 30 pg (25-35) Mean Corpuscular Hemoglobin Concent 34 g/dL (31-37) Red Cell Distribution Width 14.4 % (11.5-14.5) Platelet Count 208 x10^3/uL (140-400) Neutrophils (%) (Auto) 91 % (31-73) Lymphocytes (%) (Auto) 5 % (24-48) Monocytes (%) (Auto) 3 % (0-9) Eosinophils (%) (Auto) 0 % (0-3) Basophils (%) (Auto) 0 % (0-3) Neutrophils # (Auto) 6.2 x10^3uL (1.8-7.7) Lymphocytes # (Auto) 0.4 x10^3/uL (1.0-4.8) Monocytes # (Auto) 0.2 x10^3/uL (0.0-1.1) Eosinophils # (Auto) 0.0 x10^3/uL (0.0-0.7) Basophils # (Auto) 0.0 x10^3/uL (0.0-0.2) Sodium Level 137 mmol/L (136-145) Potassium Level 3.9 mmol/L (3.5-5.1) Chloride Level 104 mmol/L (98-107) Carbon Dioxide Level 25 mmol/L (21-32) Anion Gap 8 (6-14) Blood Urea Nitrogen 35 mg/dL (8-26) Creatinine 0.8 mg/dL (0.7-1.3) Estimated GFR (Cockcroft-Gault) 97.0 Glucose Level 150 mg/dL (70-99) Calcium Level 8.1 mg/dL (8.5-10.1) Test 09/09/18 11:22 Glucose (Fingerstick) 175 mg/dL (70-99) Microbiology 09/05/18 CSF Gram Stain - Final, Complete 09/03/18 Urine Culture - Final, Complete 09/03/18 Urine Culture Result 1 (LUIS M) - Final, Complete Medications Current Medications Gadobutrol (Gadavist) 10 mmol 1X ONCE IV Last administered on 09/03/18at 15:35 ; Start 09/03/18 at 15:15; Stop 09/03/18 at 15:16; Status DC Aspirin (Ecotrin) 81 mg DAILYWBKFT PO Last administered on 09/09/18at 08:25; Start 09/03/18 at 16:30 Docusate Sodium (Colace) 100 mg PRN DAILY PRN PO HARD STOOLS; Start 09/03/18 at 15:30 Tamsulosin HCl (Flomax) 0.4 mg BID PO Last administered on 09/08/18at 09:00; Start 09/03/18 at 21:00; Stop 09/08/18 at 10:46; Status DC Non-Formulary Medication (Amlodipine/ Valsartan (Exforge 10-320 Mg Tablet)) 1 tab DAILY PO ; Start 09/04/18 at 09:00; Status UNV Metoprolol Succinate (Toprol Xl) 50 mg DAILY PO Last administered on 09/09/18at 08:24; Start 09/03/18 at 16:30 Polyethylene Glycol (miraLAX PACKET) 17 gm PRN DAILY PRN PO CONSTIPATION 2ND CHOICE; Start 09/04/18 at 09:00 Atorvastatin Calcium (Lipitor) 40 mg QHS PO Last administered on 09/05/18at 21: 01; Start 09/03/18 at 21:00; Stop 09/06/18 at 15:52; Status DC Oxycodone/ Acetaminophen (Percocet 5/325) 1 tab PRN Q4HRS PRN PO PAIN; Start at 15:30; Stop 09/03/18 at 17:31; Status DC Amlodipine Besylate (Norvasc) 10 mg DAILY PO Last administered on 09/08/18at 08: 47; Start 09/03/18 at 16:30 Losartan Potassium (Cozaar) 100 mg DAILY PO Last administered on 09/08/18at 08: 45; Start 09/03/18 at 16:30 Oxycodone/ Acetaminophen (Percocet 5/325) 1 tab PRN Q6HRS PRN PO MODERATE PAIN Last administered on 09/04/18at 11:07; Start 09/03/18 at 17:30; Stop 09/04/18 at 13:35; Status DC Ciprofloxacin (Cipro) 500 mg BID PO Last administered on 09/05/18at 08:27; Start 09/03/18 at 21:00; Stop 09/05/18 at 13:20; Status DC Oxycodone/ Acetaminophen (Percocet 5/325) 2 tab PRN Q6HRS PRN PO SEVERE PAIN; Start 09/03/18 at 17:45 Acetaminophen (Tylenol) 650 mg PRN Q4HRS PRN PO MILD PAIN Last administered on 09/03/18at 21:01; Start 09/03/18 at 18:45 Enoxaparin Sodium (Lovenox 120mg Syringe) 120 mg Q12HR SQ Last administered on 09/04/18at 07:55; Start 09/04/18 at 09:00; Stop 09/04/18 at 15:42; Status DC Methylprednisolone (Medrol) 8 mg BID PO Last administered on 09/04/18at 11:06; Start 09/04/18 at 10:00; Stop 09/04/18 at 13:28; Status DC Methylprednisolone (Medrol) 4 mg BIDPCLD PO ; Start 09/04/18 at 12:30; Stop at 13:28; Status DC Methylprednisolone (Medrol) 4 mg TIDPC PO ; Start 09/05/18 at 08:30; Stop at 08:30; Status DC Methylprednisolone (Medrol) 8 mg QHS PO ; Start 09/05/18 at 21:00; Stop at 21:00; Status DC Methylprednisolone (Medrol) 4 mg QIDAFTMEAL PO ; Start 09/06/18 at 09:00; Stop 09/06/18 at 09:00; Status DC Methylprednisolone (Medrol) 4 mg TID PO ; Start 09/07/18 at 09:00; Stop at 09:00; Status DC Methylprednisolone (Medrol) 4 mg BID PO ; Start 09/08/18 at 09:00; Stop at 09:00; Status DC Methylprednisolone (Medrol) 4 mg DAILY PO ; Start 09/09/18 at 09:00; Stop at 09:00; Status DC Pantoprazole Sodium (Protonix) 40 mg DAILYAC PO Last administered on 09/09/18at 08:26; Start 09/04/18 at 10:00 Bisacodyl (Dulcolax Tab) 10 mg DAILY PO Last administered on 09/09/18at 08:25; Start 09/04/18 at 10:00 Bisacodyl (Dulcolax Supp) 10 mg PRN DAILY PRN [place] CONSTIPATION 1ST RECTAL CHOICE Last administered on 09/04/18at 19:38; Start 09/04/18 at 09:30 Docusate Sodium (Enemeez) 283 mg PRN DAILY PRN [place] CONSTIPATION 2ND RECTAL CHOICE; Start 09/04/18 at 09:30 Gadobutrol (Gadavist) 10 mmol 1X ONCE IV Last administered on 09/04/18 13:26 ; Start 09/04/18 at 13:30; Stop 09/04/18 at 13:31; Status DC Methylprednisolone Sodium Succinate (SOLU-Medrol 125MG VIAL) 500 mg BID IV ; Start 09/04/18 at 21:00; Status UNV Methylprednisolone Sodium Succinate 500 mg/Sodium Chloride 100 ml @ 100 mls/hr Q12HR IV Last administered on 09/09/18 08:30; Start 09/04/18 at 21:00; Stop 09/09/18 at 11:59; Status DC Methylprednisolone Sodium Succinate 500 mg/Sodium Chloride 100 ml @ 100 mls/hr Q12HR IV ; Start 09/04/18 at 21:00; Status Cancel Oxycodone/ Acetaminophen (Percocet 5/325) 1 tab PRN Q4HRS PRN PO MODERATE PAIN Last administered on 09/09/18 08:25; Start 09/04/18 at 13:45 Hydrocortisone Acetate (Anucort-Hc) 25 mg PRN DAILY PRN [place] RECTAL PAIN; Start 09/04/18 at 13:30 Enoxaparin Sodium (Lovenox 120mg Syringe) 110 mg Q12HR SQ Last administered on 09/05/18 21:35; Start 09/04/18 at 21:00; Stop 09/06/18 at 06:49; Status DC Lactobacillus Rhamnosus (Culturelle) 1 cap BID PO Last administered on 08:23; Start 09/04/18 at 21:00 Cefepime HCl (Maxipime) 2 gm Q8HRS IVP Last administered on 09/09/18 12:10; Start 09/05/18 at 14:00 Vancomycin HCl (Vancomycin Oral Solution) 125 mg BID PO Last administered on 08:30; Start 09/05/18 at 21:00 Acyclovir Sodium 750 mg/Dextrose 265 ml @ 265 mls/hr Q8HRS IV Last administered on 09/09/18 05:47; Start 09/05/18 at 14:00 Doxycycline Hyclate (Vibra-Tab) 100 mg BID PO Last administered on 09/09/18 08: 26; Start 09/05/18 at 21:00 Info (Anti-Coagulation Monitoring By Pharmacy) 1 each PRN DAILY PRN MC SEE COMMENTS Last administered on 09/07/18at 15:56; Start 09/05/18 at 14:00 Enoxaparin Sodium (Lovenox 120mg Syringe) 120 mg Q12HR SQ ; Start 09/06/18 at 06 :49; Status Cancel Enoxaparin Sodium (Lovenox 120mg Syringe) 120 mg Q12HR SQ Last administered on 09/06/18at 08:39; Start 09/06/18 at 09:00; Stop 09/06/18 at 16:44; Status DC Cetirizine HCl (ZyrTEC) 10 mg DAILY PO Last administered on 09/06/18at 15:12; Start 09/04/18 at 11:00; Stop 09/06/18 at 15:53; Status DC Insulin Human Lispro (HumaLOG) 0-7 UNITS TIDWMEALS SQ Last administered on at 12:19; Start 09/06/18 at 17:00 Dextrose (Dextrose 50%-Water Syringe) 12.5 gm PRN Q15MIN PRN IV SEE COMMENTS; Start 09/06/18 at 12:30 Multivitamins (Thera M Plus) 1 tab DAILY PO Last administered on 09/09/18at 08:25 ; Start 09/06/18 at 14:00 Calcium Carbonate/ Glycine (Oscal) 500 mg DAILY PO Last administered on 08:25; Start 09/06/18 at 14:00 Thiamine Mononitrate (Vitamin B-1) 100 mg DAILY PO Last administered on at 08:25; Start 09/06/18 at 14:00 Cetirizine HCl (ZyrTEC) 10 mg DAILY PO Last administered on 09/09/18at 08:25; Start 09/06/18 at 15:00 Rivaroxaban (Xarelto) 15 mg BIDWMEALS PO Last administered on 09/06/18at 17:23; Start 09/06/18 at 17:00; Stop 09/07/18 at 08:22; Status DC Enoxaparin Sodium (Lovenox Per Pharmacy Treatment Dosing) 1 each PRN DAILY PRN MC SEE COMMENTS; Start 09/07/18 at 11:15; Stop 09/08/18 at 12:11; Status DC Enoxaparin Sodium (Lovenox 120mg Syringe) 120 mg Q12HR SQ Last administered on 09/08/18at 09:24; Start 09/07/18 at 11:15; Stop 09/08/18 at 12:10; Status DC Gabapentin (Neurontin) 100 mg TID PO Last administered on 09/08/18at 14:13; Start 09/07/18 at 21:00; Stop 09/08/18 at 16:27; Status DC Gabapentin (Neurontin) 300 mg TID PO Last administered on 09/09/18at 12:10; Start 09/08/18 at 21:00 Lidocaine/Sodium Bicarbonate (Buffered Lidocaine 1%) 3 ml STK-MED ONCE .ROUTE ; Start 09/09/18 at 08:52; Stop 09/09/18 at 08:53; Status DC Lidocaine/Sodium Bicarbonate (Buffered Lidocaine 1%) 3 ml 1X ONCE INJ Last administered on 09/09/18at 09:43; Start 09/09/18 at 09:30; Stop 09/09/18 at 09:31; Status DC Enoxaparin Sodium (Lovenox Per Pharmacy Prophylaxis Dosing) 1 each DAILY PRN MC SEE COMMENTS; Start 09/09/18 at 11:15 Enoxaparin Sodium (Lovenox 40mg Syringe) 40 mg DAILY SQ Last administered on 09/09/18at 12:11; Start 09/09/18 at 12:00 Prednisone (Prednisone) 70 mg DAILY PO Last administered on 09/09/18at 12:10; Start 09/09/18 at 12:00; Stop 09/15/18 at 09:01 Prednisone (Prednisone) 50 mg 1X ONCE PO ; Start 09/16/18 at 09:00; Stop at 09:01 Prednisone (Prednisone) 40 mg 1X ONCE PO ; Start 09/17/18 at 09:00; Stop at 09:01 Prednisone (Prednisone) 30 mg 1X ONCE PO ; Start 09/18/18 at 09:00; Stop at 09:01 Prednisone (Prednisone) 20 mg DAILY PO ; Start 09/19/18 at 09:00; Stop 09/21/18 at 09:01 Prednisone (Prednisone) 10 mg 1X ONCE PO ; Start 09/22/18 at 09:00; Stop at 09:01 Prednisone (Prednisone) 10 mg 1X ONCE PO ; Start 09/24/18 at 09:00; Stop at 09:01 Active Scripts Active Cipro (Ciprofloxacin Hcl) 500 Mg Tablet 1 Tab PO BID Aspirin Ec (Aspirin) 81 Mg Tablet. 81 Mg PO DAILYWBKFT 30 Days Colace (Docusate Sodium) 100 Mg Capsule 100 Mg PO PRN DAILY PRN 30 Days Polyethylene Glycol 3350 17 Gm Powd.pack 17 Gm PO PRN DAILY PRN 14 Days Flomax (Tamsulosin Hcl) 0.4 Mg Cap.er.24h 0.4 Mg PO BID 30 Days Reported Percocet 5-325 Mg Tablet (Oxycodone/Acetaminophen) 1 Each Tablet 1-2 Tab PO Q4-6HRS Exforge 10-320 Mg Tablet (Amlodipine/Valsartan) 1 Each Tablet 1 Tab PO DAILY Crestor (Rosuvastatin Calcium) 10 Mg Tablet 1 Tab PO DAILY Toprol Xl (Metoprolol Succinate) 50 Mg Tab.er.24h 1 Tab PO DAILY Vitals/I & O Vital Sign - Last 24 Hours 09/08/18 09/08/18 09/08/18 09/08/18 14:10 15:00 19:00 19:30 Temp 97.5 97.4 97.5 97.4 Pulse 67 77 Resp 18 18 B/P (MAP) 121/71 (88) 146/78 (100) Pulse Ox 95 95 O2 Delivery Room Air Room Air Room Air Room Air 09/08/18 09/08/18 09/09/18 09/09/18 21:35 23:00 03:00 07:00 Temp 97.5 97.3 97.7 97.5 97.3 97.7 Pulse 62 65 67 Resp 18 18 17 B/P (MAP) 128/68 (88) 135/76 (95) 101/80 (87) Pulse Ox 94 92 97 O2 Delivery Room Air Room Air Room Air Room Air 09/09/18 09/09/18 09/09/18 09/09/18 08:20 08:24 08:25 09:00 Pulse 67 67 B/P (MAP) 101/80 101/80 Pulse Ox 97 O2 Delivery Room Air Room Air 09/09/18 09/09/18 11:00 11:07 Temp 97.4 97.4 Pulse 77 Resp 17 B/P (MAP) 159/85 (109) Pulse Ox 95 97 O2 Delivery Room Air Room Air Intake and Output 09/08/18 09/08/18 09/09/18 14:59 22:59 06:59 Intake Total 200 ml Output Total 1200 ml Balance 200 ml -1200 ml LAMONT BASHIR MD Sep 09, 2018 12:40
--- NOTE | 2018-09-09 13:15 | NUR ---
IRENE following. Discussed with RN, pt having a plasma exchange procedure today. IRENE advised [facility] (ph: [phone], fax: [phone]) to submit pt's referral for insurance auth. RN notified. IRENE will continue to follow.
[2018-09-09] MEDS ORDERED: POTASSIUM CHLORIDE 20 MEQ TABLET.ER. PO STA (13:39)
[2018-09-09] MEDS ORDERED: ALBUMIN HUMAN 5% 3,000 ML IV ONE (14:00)
--- NOTE | 2018-09-09 14:15 | PDOC2 ---
CONSULT Date of Consult Date of Consult DATE: 09/09/18 TIME: 14:09 Reason for Consult Reason for Consult: TPE Referring Physician Referring Physician: JAYNA Identification/Chief Complaint Chief Complaint LE WEAKNESS Source Source: Chart review, Patient History of Present Illness Reason for Visit: THIS IS A 63 YR OLD WITH LE WEAKNESS AND DX WITH TRANSVERSE MYELITIS. ALSO HAS A HX OF CAUDA EQUINA PER UROLOGY AND HAS NEUROGENIC BLADDER FOR WHICH HE DOSES SELF CATHETERIZATION. RENAL LABS WNL. RENAL CONSULT WAS REQUESTED TO PERFORM PLASMA EXCHANGE FOR HIS TRANSVERSE MYELITIS Past Medical History Cardiovascular: HTN, Hyperlipidemia, Other Pulmonary: No pertinent hx CENTRAL NERVOUS SYSTEM: Periperal neuropathy GI: No pertinent hx Heme/Onc: No pertinent hx Hepatobiliary: No pertinent hx, Cholelithiasis Psych: No pertinent hx Musculoskeletal: Osteoarthritis, Other Rheumatologic: No pertinent hx Infectious disease: No pertinent hx Renal/: No pertinent hx Endocrine: No pertinent hx Past Surgical History Past Surgical History: Other Family History Family History: Heart Disease, Other Social History No ALCOHOL: none Drugs: None Lives: with Family Current Medications Current Medications Current Medications Gadobutrol (Gadavist) 10 mmol 1X ONCE IV Last administered on 09/03/18at 15:35 ; Start 09/03/18 at 15:15; Stop 09/03/18 at 15:16; Status DC Aspirin (Ecotrin) 81 mg DAILYWBKFT PO Last administered on 09/09/18at 08:25; Start 09/03/18 at 16:30 Docusate Sodium (Colace) 100 mg PRN DAILY PRN PO HARD STOOLS; Start 09/03/18 at 15:30 Tamsulosin HCl (Flomax) 0.4 mg BID PO Last administered on 09/08/18at 09:00; Start 09/03/18 at 21:00; Stop 09/08/18 at 10:46; Status DC Non-Formulary Medication (Amlodipine/ Valsartan (Exforge 10-320 Mg Tablet)) 1 tab DAILY PO ; Start 09/04/18 at 09:00; Status UNV Metoprolol Succinate (Toprol Xl) 50 mg DAILY PO Last administered on 09/09/18at 08:24; Start 09/03/18 at 16:30 Polyethylene Glycol (miraLAX PACKET) 17 gm PRN DAILY PRN PO CONSTIPATION 2ND CHOICE; Start 09/04/18 at 09:00 Atorvastatin Calcium (Lipitor) 40 mg QHS PO Last administered on 09/05/18 21: 01; Start 09/03/18 at 21:00; Stop 09/06/18 at 15:52; Status DC Oxycodone/ Acetaminophen (Percocet 5/325) 1 tab PRN Q4HRS PRN PO PAIN; Start at 15:30; Stop 09/03/18 at 17:31; Status DC Amlodipine Besylate (Norvasc) 10 mg DAILY PO Last administered on 09/08/18at 08: 47; Start 09/03/18 at 16:30 Losartan Potassium (Cozaar) 100 mg DAILY PO Last administered on 09/08/18at 08: 45; Start 09/03/18 at 16:30 Oxycodone/ Acetaminophen (Percocet 5/325) 1 tab PRN Q6HRS PRN PO MODERATE PAIN Last administered on 09/04/18at 11:07; Start 09/03/18 at 17:30; Stop 09/04/18 at 13:35; Status DC Ciprofloxacin (Cipro) 500 mg BID PO Last administered on 09/05/18 08:27; Start 09/03/18 at 21:00; Stop 09/05/18 at 13:20; Status DC Oxycodone/ Acetaminophen (Percocet 5/325) 2 tab PRN Q6HRS PRN PO SEVERE PAIN; Start 09/03/18 at 17:45 Acetaminophen (Tylenol) 650 mg PRN Q4HRS PRN PO MILD PAIN Last administered on 09/03/18at 21:01; Start 09/03/18 at 18:45 Enoxaparin Sodium (Lovenox 120mg Syringe) 120 mg Q12HR SQ Last administered on 09/04/18at 07:55; Start 09/04/18 at 09:00; Stop 09/04/18 at 15:42; Status DC Methylprednisolone (Medrol) 8 mg BID PO Last administered on 09/04/18at 11:06; Start 09/04/18 at 10:00; Stop 09/04/18 at 13:28; Status DC Methylprednisolone (Medrol) 4 mg BIDPCLD PO ; Start 09/04/18 at 12:30; Stop at 13:28; Status DC Methylprednisolone (Medrol) 4 mg TIDPC PO ; Start 09/05/18 at 08:30; Stop at 08:30; Status DC Methylprednisolone (Medrol) 8 mg QHS PO ; Start 09/05/18 at 21:00; Stop at 21:00; Status DC Methylprednisolone (Medrol) 4 mg QIDAFTMEAL PO ; Start 09/06/18 at 09:00; Stop 09/06/18 at 09:00; Status DC Methylprednisolone (Medrol) 4 mg TID PO ; Start 09/07/18 at 09:00; Stop at 09:00; Status DC Methylprednisolone (Medrol) 4 mg BID PO ; Start 09/08/18 at 09:00; Stop at 09:00; Status DC Methylprednisolone (Medrol) 4 mg DAILY PO ; Start 09/09/18 at 09:00; Stop at 09:00; Status DC Pantoprazole Sodium (Protonix) 40 mg DAILYAC PO Last administered on 09/09/18at 08:26; Start 09/04/18 at 10:00 Bisacodyl (Dulcolax Tab) 10 mg DAILY PO Last administered on 09/09/18at 08:25; Start 09/04/18 at 10:00 Bisacodyl (Dulcolax Supp) 10 mg PRN DAILY PRN MD CONSTIPATION 1ST RECTAL CHOICE Last administered on 09/04/18at 19:38; Start 09/04/18 at 09:30 Docusate Sodium (Enemeez) 283 mg PRN DAILY PRN MD CONSTIPATION 2ND RECTAL CHOICE; Start 09/04/18 at 09:30 Gadobutrol (Gadavist) 10 mmol 1X ONCE IV Last administered on 09/04/18at 13:26 ; Start 09/04/18 at 13:30; Stop 09/04/18 at 13:31; Status DC Methylprednisolone Sodium Succinate (SOLU-Medrol 125MG VIAL) 500 mg BID IV ; Start 09/04/18 at 21:00; Status UNV Methylprednisolone Sodium Succinate 500 mg/Sodium Chloride 100 ml @ 100 mls/hr Q12HR IV Last administered on 09/09/18at 08:30; Start 09/04/18 at 21:00; Stop 09/09/18 at 11:59; Status DC Methylprednisolone Sodium Succinate 500 mg/Sodium Chloride 100 ml @ 100 mls/hr Q12HR IV ; Start 09/04/18 at 21:00; Status Cancel Oxycodone/ Acetaminophen (Percocet 5/325) 1 tab PRN Q4HRS PRN PO MODERATE PAIN Last administered on 09/09/18 08:25; Start 09/04/18 at 13:45 Hydrocortisone Acetate (Anucort-Hc) 25 mg PRN DAILY PRN MD RECTAL PAIN; Start 09/04/18 at 13:30 Enoxaparin Sodium (Lovenox 120mg Syringe) 110 mg Q12HR SQ Last administered on 09/05/18at 21:35; Start 09/04/18 at 21:00; Stop 09/06/18 at 06:49; Status DC Lactobacillus Rhamnosus (Culturelle) 1 cap BID PO Last administered on 08:23; Start 09/04/18 at 21:00 Cefepime HCl (Maxipime) 2 gm Q8HRS IVP Last administered on 09/09/18 12:10; Start 09/05/18 at 14:00 Vancomycin HCl (Vancomycin Oral Solution) 125 mg BID PO Last administered on 08:30; Start 09/05/18 at 21:00 Acyclovir Sodium 750 mg/Dextrose 265 ml @ 265 mls/hr Q8HRS IV Last administered on 09/09/18 05:47; Start 09/05/18 at 14:00 Doxycycline Hyclate (Vibra-Tab) 100 mg BID PO Last administered on 09/09/18 08: 26; Start 09/05/18 at 21:00 Info (Anti-Coagulation Monitoring By Pharmacy) 1 each PRN DAILY PRN MC SEE COMMENTS Last administered on 09/07/18 15:56; Start 09/05/18 at 14:00 Enoxaparin Sodium (Lovenox 120mg Syringe) 120 mg Q12HR SQ ; Start 09/06/18 at 06 :49; Status Cancel Enoxaparin Sodium (Lovenox 120mg Syringe) 120 mg Q12HR SQ Last administered on 09/06/18 08:39; Start 09/06/18 at 09:00; Stop 09/06/18 at 16:44; Status DC Cetirizine HCl (ZyrTEC) 10 mg DAILY PO Last administered on 09/06/18at 15:12; Start 09/04/18 at 11:00; Stop 09/06/18 at 15:53; Status DC Insulin Human Lispro (HumaLOG) 0-7 UNITS TIDWMEALS SQ Last administered on at 12:19; Start 09/06/18 at 17:00 Dextrose (Dextrose 50%-Water Syringe) 12.5 gm PRN Q15MIN PRN IV SEE COMMENTS; Start 09/06/18 at 12:30 Multivitamins (Thera M Plus) 1 tab DAILY PO Last administered on 09/09/18 08:25 ; Start 09/06/18 at 14:00 Calcium Carbonate/ Glycine (Oscal) 500 mg DAILY PO Last administered on 08:25; Start 09/06/18 at 14:00 Thiamine Mononitrate (Vitamin B-1) 100 mg DAILY PO Last administered on 08:25; Start 09/06/18 at 14:00 Cetirizine HCl (ZyrTEC) 10 mg DAILY PO Last administered on 09/09/18 08:25; Start 09/06/18 at 15:00 Rivaroxaban (Xarelto) 15 mg BIDWMEALS PO Last administered on 09/06/18at 17:23; Start 09/06/18 at 17:00; Stop 09/07/18 at 08:22; Status DC Enoxaparin Sodium (Lovenox Per Pharmacy Treatment Dosing) 1 each PRN DAILY PRN MC SEE COMMENTS; Start 09/07/18 at 11:15; Stop 09/08/18 at 12:11; Status DC Enoxaparin Sodium (Lovenox 120mg Syringe) 120 mg Q12HR SQ Last administered on 09/08/18at 09:24; Start 09/07/18 at 11:15; Stop 09/08/18 at 12:10; Status DC Gabapentin (Neurontin) 100 mg TID PO Last administered on 09/08/18at 14:13; Start 09/07/18 at 21:00; Stop 09/08/18 at 16:27; Status DC Gabapentin (Neurontin) 300 mg TID PO Last administered on 09/09/18at 12:10; Start 09/08/18 at 21:00 Lidocaine/Sodium Bicarbonate (Buffered Lidocaine 1%) 3 ml STK-MED ONCE .ROUTE ; Start 09/09/18 at 08:52; Stop 09/09/18 at 08:53; Status DC Lidocaine/Sodium Bicarbonate (Buffered Lidocaine 1%) 3 ml 1X ONCE INJ Last administered on 09/09/18at 09:43; Start 09/09/18 at 09:30; Stop 09/09/18 at 09:31; Status DC Enoxaparin Sodium (Lovenox Per Pharmacy Prophylaxis Dosing) 1 each DAILY PRN MC SEE COMMENTS; Start 09/09/18 at 11:15 Enoxaparin Sodium (Lovenox 40mg Syringe) 40 mg DAILY SQ Last administered on 09/09/18at 12:11; Start 09/09/18 at 12:00 Prednisone (Prednisone) 70 mg DAILY PO Last administered on 09/09/18at 12:10; Start 09/09/18 at 12:00; Stop 09/15/18 at 09:01 Prednisone (Prednisone) 50 mg 1X ONCE PO ; Start 09/16/18 at 09:00; Stop at 09:01 Prednisone (Prednisone) 40 mg 1X ONCE PO ; Start 09/17/18 at 09:00; Stop at 09:01 Prednisone (Prednisone) 30 mg 1X ONCE PO ; Start 09/18/18 at 09:00; Stop at 09:01 Prednisone (Prednisone) 20 mg DAILY PO ; Start 09/19/18 at 09:00; Stop 09/21/18 at 09:01 Prednisone (Prednisone) 10 mg 1X ONCE PO ; Start 09/22/18 at 09:00; Stop at 09:01 Prednisone (Prednisone) 10 mg 1X ONCE PO ; Start 09/24/18 at 09:00; Stop at 09:01 Potassium Chloride (Klor-Con) 40 meq 1X STAT PO Last administered on 09/09/18at 13:54; Start 09/09/18 at 13:39; Stop 09/09/18 at 13:43; Status DC Albumin Human 3,000 ml @ 0 mls/hr 1X ONCE IV ; Start 09/09/18 at 14:00; Stop at 14:01; Status DC Heparin Sodium (Porcine) (Heparin Sodium) 5,000 unit 1X ONCE IV ; Start at 14:00; Stop 09/09/18 at 14:01; Status DC Active Scripts Active Cipro (Ciprofloxacin Hcl) 500 Mg Tablet 1 Tab PO BID Aspirin Ec (Aspirin) 81 Mg Tablet.dr 81 Mg PO DAILYWBKFT 30 Days Colace (Docusate Sodium) 100 Mg Capsule 100 Mg PO PRN DAILY PRN 30 Days Polyethylene Glycol 3350 17 Gm Powd.pack 17 Gm PO PRN DAILY PRN 14 Days Flomax (Tamsulosin Hcl) 0.4 Mg Cap.er.24h 0.4 Mg PO BID 30 Days Reported Percocet 5-325 Mg Tablet (Oxycodone/Acetaminophen) 1 Each Tablet 1-2 Tab PO Q4-6HRS Exforge 10-320 Mg Tablet (Amlodipine/Valsartan) 1 Each Tablet 1 Tab PO DAILY Crestor (Rosuvastatin Calcium) 10 Mg Tablet 1 Tab PO DAILY Toprol Xl (Metoprolol Succinate) 50 Mg Tab.er.24h 1 Tab PO DAILY Allergies Allergies: Coded Allergies: No Known Drug Allergies (Unverified , 09/06/17) ROS General: YES: Fatigue, Malaise PSYCHOLOGICAL ROS: YES: Anxiety Eyes: Yes Decreased vision HEENT: YES: Heacaches Respiratory: YES: Cough Genitourinary: YES Retention Musculoskeletal: Yes Muscular Weakness Neurological: Yes Weakness Skin: Yes Dry Skin Physical Exam General: Alert, Oriented X3, Cooperative, No acute distress HEENT: Atraumatic, PERRLA, EOMI Lungs: Clear to auscultation Heart: Regular rate Abdomen: Normal bowel sounds, Soft, No tenderness Extremities: No clubbing, No cyanosis Neuro: Normal speech Psych/Mental Status: Mental status NL, Mood NL MUSCULOSKELETAL: No joint tenderness, No deformity, No swelling Vitals VITALS Vital Signs Date Time Temp Pulse Resp B/P (MAP) Pulse Ox O2 Delivery O2 Flow Rate FiO2 09/09/18 11:07 97 Room Air 09/09/18 11:00 97.4 77 17 159/85 (109) 97.4 Labs Labs Laboratory Tests Test 09/07/18 16:58 09/07/18 21:02 09/08/18 07:16 09/08/18 09:08 Glucose (Fingerstick) 190 mg/dL (70-99) 161 mg/dL (70-99) 157 mg/dL (70-99) White Blood Count 7.9 x10^3/uL (4.0-11.0) Red Blood Count 4.97 x10^6/uL (4.30-5.70) Hemoglobin 15.0 g/dL (13.0-17.5) Hematocrit 45.4 % (39.0-53.0) Mean Corpuscular Volume 91 fL (79-100) Mean Corpuscular Hemoglobin 30 pg (25-35) Mean Corpuscular Hemoglobin Concent 33 g/dL (31-37) Red Cell Distribution Width 14.4 % (11.5-14.5) Platelet Count 231 x10^3/uL (140-400) Neutrophils (%) (Auto) 92 % (31-73) Lymphocytes (%) (Auto) 5 % (24-48) Monocytes (%) (Auto) 3 % (0-9) Eosinophils (%) (Auto) 0 % (0-3) Basophils (%) (Auto) 0 % (0-3) Neutrophils # (Auto) 7.3 x10^3uL (1.8-7.7) Lymphocytes # (Auto) 0.4 x10^3/uL (1.0-4.8) Monocytes # (Auto) 0.3 x10^3/uL (0.0-1.1) Eosinophils # (Auto) 0.0 x10^3/uL (0.0-0.7) Basophils # (Auto) 0.0 x10^3/uL (0.0-0.2) Sodium Level 138 mmol/L (136-145) Potassium Level 3.8 mmol/L (3.5-5.1) Chloride Level 102 mmol/L (98-107) Carbon Dioxide Level 23 mmol/L (21-32) Anion Gap 13 (6-14) Blood Urea Nitrogen 40 mg/dL (8-26) Creatinine 0.9 mg/dL (0.7-1.3) Estimated GFR (Cockcroft-Gault) 84.7 Glucose Level 204 mg/dL (70-99) Calcium Level 8.7 mg/dL (8.5-10.1) Test 09/08/18 10:50 09/08/18 16:45 09/08/18 20:25 09/09/18 03:25 Glucose (Fingerstick) 173 mg/dL (70-99) 164 mg/dL (70-99) 178 mg/dL (70-99) White Blood Count 6.8 x10^3/uL (4.0-11.0) Red Blood Count 4.61 x10^6/uL (4.30-5.70) Hemoglobin 13.9 g/dL (13.0-17.5) Hematocrit 41.3 % (39.0-53.0) Mean Corpuscular Volume 90 fL (79-100) Mean Corpuscular Hemoglobin 30 pg (25-35) Mean Corpuscular Hemoglobin Concent 34 g/dL (31-37) Red Cell Distribution Width 14.4 % (11.5-14.5) Platelet Count 208 x10^3/uL (140-400) Neutrophils (%) (Auto) 91 % (31-73) Lymphocytes (%) (Auto) 5 % (24-48) Monocytes (%) (Auto) 3 % (0-9) Eosinophils (%) (Auto) 0 % (0-3) Basophils (%) (Auto) 0 % (0-3) Neutrophils # (Auto) 6.2 x10^3uL (1.8-7.7) Lymphocytes # (Auto) 0.4 x10^3/uL (1.0-4.8) Monocytes # (Auto) 0.2 x10^3/uL (0.0-1.1) Eosinophils # (Auto) 0.0 x10^3/uL (0.0-0.7) Basophils # (Auto) 0.0 x10^3/uL (0.0-0.2) Sodium Level 137 mmol/L (136-145) Potassium Level 3.9 mmol/L (3.5-5.1) Chloride Level 104 mmol/L (98-107) Carbon Dioxide Level 25 mmol/L (21-32) Anion Gap 8 (6-14) Blood Urea Nitrogen 35 mg/dL (8-26) Creatinine 0.8 mg/dL (0.7-1.3) Estimated GFR (Cockcroft-Gault) 97.0 Glucose Level 150 mg/dL (70-99) Calcium Level 8.1 mg/dL (8.5-10.1) Test 09/09/18 07:06 09/09/18 11:22 Glucose (Fingerstick) 153 mg/dL (70-99) 175 mg/dL (70-99) Laboratory Tests Test 09/08/18 16:45 09/08/18 20:25 09/09/18 03:25 09/09/18 07:06 Glucose (Fingerstick) 164 mg/dL (70-99) 178 mg/dL (70-99) 153 mg/dL (70-99) White Blood Count 6.8 x10^3/uL (4.0-11.0) Red Blood Count 4.61 x10^6/uL (4.30-5.70) Hemoglobin 13.9 g/dL (13.0-17.5) Hematocrit 41.3 % (39.0-53.0) Mean Corpuscular Volume 90 fL (79-100) Mean Corpuscular Hemoglobin 30 pg (25-35) Mean Corpuscular Hemoglobin Concent 34 g/dL (31-37) Red Cell Distribution Width 14.4 % (11.5-14.5) Platelet Count 208 x10^3/uL (140-400) Neutrophils (%) (Auto) 91 % (31-73) Lymphocytes (%) (Auto) 5 % (24-48) Monocytes (%) (Auto) 3 % (0-9) Eosinophils (%) (Auto) 0 % (0-3) Basophils (%) (Auto) 0 % (0-3) Neutrophils # (Auto) 6.2 x10^3uL (1.8-7.7) Lymphocytes # (Auto) 0.4 x10^3/uL (1.0-4.8) Monocytes # (Auto) 0.2 x10^3/uL (0.0-1.1) Eosinophils # (Auto) 0.0 x10^3/uL (0.0-0.7) Basophils # (Auto) 0.0 x10^3/uL (0.0-0.2) Sodium Level 137 mmol/L (136-145) Potassium Level 3.9 mmol/L (3.5-5.1) Chloride Level 104 mmol/L (98-107) Carbon Dioxide Level 25 mmol/L (21-32) Anion Gap 8 (6-14) Blood Urea Nitrogen 35 mg/dL (8-26) Creatinine 0.8 mg/dL (0.7-1.3) Estimated GFR (Cockcroft-Gault) 97.0 Glucose Level 150 mg/dL (70-99) Calcium Level 8.1 mg/dL (8.5-10.1) Test 09/09/18 11:22 Glucose (Fingerstick) 175 mg/dL (70-99) Assessment/Plan Assessment/Plan IMP TRANSVERSE MYELITIS NEUROGENIC BLADDER PLAN DRAIN BLADDER TPE TODAY EXCHANGE VOLUME WITH SPA AND SALINE WILL PLAN FOR DAILY TPE FOR 5 DAY-WILL CHANGE THIS NEUROLOGY WISHES COAG STUDIES IN AM WILL FOLLOW TYRA ESPINOZA MD Sep 09, 2018 14:15
[2018-09-09 14:47] LABS: ALBUMIN 2.6 g/dL (3.4-5.0); MAGNESIUM 2.7 mg/dL (1.8-2.4)
[2018-09-09 17:05] VITALS: BP 145/91
[2018-09-09 19:00] VITALS: BP 141/71
[2018-09-09 23:39] VITALS: BP 132/75
[2018-09-10 03:00] VITALS: BP 154/82
[2018-09-10 03:19] LABS: BASO % 0 % (0-3); EOS % 0 % (0-3); HEMATOCRIT 45.2 % (39.0-53.0); HEMOGLOBIN 14.8 g/dL (13.0-17.5); LYMPH # 0.5 x10^3/uL (1.0-4.8); LYMPH % 5 % (24-48); MEAN CORPUSCULAR HEMOGLOBIN 30 pg (25-35); MEAN CORPUSCULAR HGB CONC 33 g/dL (31-37); MEAN CORPUSCULAR VOLUME 90 fL (79-100); MONO # 0.6 x10^3/uL (0.0-1.1); MONO % 5 % (0-9); NEUT # 10.1 x10^3uL (1.8-7.7); NEUT % 90 % (31-73); PLATELET COUNT 189 x10^3/uL (140-400); RED BLOOD COUNT 5.01 x10^6/uL (4.30-5.70); RED CELL DISTRIBUTION WIDTH 14.3 % (11.5-14.5); WHITE BLOOD COUNT 11.2 x10^3/uL (4.0-11.0)
[2018-09-10 03:30] LABS: PROTHROMBIN TIME PATIENT 20.3 SEC (11.7-14.0)
[2018-09-10 03:32] LABS: CALCIUM 7.5 mg/dL (8.5-10.1); CREATININE 0.8 mg/dL (0.7-1.3); POTASSIUM 4.2 mmol/L (3.5-5.1)
--- NOTE | 2018-09-10 04:28 | NUR ---
Ernestine in lab contacted me with a critical Fibrinogen of 82. RN paged Dr. Willingham regarding critical results, no new orders received. RN will continue plan of care and will continue to monitor patient.
[2018-09-10] MEDS: ACYCLOVIR SODIUM IV SCH ×4 (06:32→22:00)
[2018-09-10] MEDS: DEXTROSE 5% IV SCH ×4 (06:32→22:00)
[2018-09-10] MEDS: PANTOPRAZOLE 40 MG TABLET.DR. PO SCH (06:33)
[2018-09-10] MEDS: CEFEPIME HCL IV Push 2 GM VIAL. IVP SCH ×4 (06:33→21:59)
[2018-09-10 07:00] VITALS: BP 147/79
[2018-09-10] MEDS: INSULIN LISPRO 300 UNITS/3 ML INSULN.PEN. SQ SCH ×3 (08:00→17:00)
--- NOTE | 2018-09-10 08:40 | PDOC ---
Infectious Disease Note Subjective Subjective Comfortable Moving RLE a little more More bowel control Denies F/C/S/N/V/D ROS ROS o/w neg Vital Sign Vital Signs Vital Signs Date Time Temp Pulse Resp B/P (MAP) Pulse Ox O2 Delivery O2 Flow Rate FiO2 09/10/18 08:00 Room Air 09/10/18 03:00 97.5 62 18 154/82 (106) 94 97.5 Physical Exam PHYSICAL EXAM GENERAL: Propped up in bed, alert, smiling HEENT: Oropharynx clear NECK: Supple. LUNGS: Clear bilaterally. No wheezing. HEART: S1, S2. ABDOMEN: Obese, soft, NT EXTREMITIES: Bilateral trace pedal edema. NEUROLOGIC: Alert and oriented x 3. Lower extremity weakness bilaterally can move LLE better and ? more with right SPINE: Back incision well healed, nontender. No surrounding redness or erythema. SKIN: Warm, dry. No generalized rash. PIV, right forearm, new. R subclavian clean trace bleed - Labs Lab Laboratory Tests Test 09/09/18 11:22 09/09/18 17:11 09/09/18 20:44 09/10/18 02:45 Glucose (Fingerstick) 175 mg/dL (70-99) 163 mg/dL (70-99) 161 mg/dL (70-99) White Blood Count 11.2 x10^3/uL (4.0-11.0) Red Blood Count 5.01 x10^6/uL (4.30-5.70) Hemoglobin 14.8 g/dL (13.0-17.5) Hematocrit 45.2 % (39.0-53.0) Mean Corpuscular Volume 90 fL (79-100) Mean Corpuscular Hemoglobin 30 pg (25-35) Mean Corpuscular Hemoglobin Concent 33 g/dL (31-37) Red Cell Distribution Width 14.3 % (11.5-14.5) Platelet Count 189 x10^3/uL (140-400) Neutrophils (%) (Auto) 90 % (31-73) Lymphocytes (%) (Auto) 5 % (24-48) Monocytes (%) (Auto) 5 % (0-9) Eosinophils (%) (Auto) 0 % (0-3) Basophils (%) (Auto) 0 % (0-3) Neutrophils # (Auto) 10.1 x10^3uL (1.8-7.7) Lymphocytes # (Auto) 0.5 x10^3/uL (1.0-4.8) Monocytes # (Auto) 0.6 x10^3/uL (0.0-1.1) Eosinophils # (Auto) 0.0 x10^3/uL (0.0-0.7) Basophils # (Auto) 0.0 x10^3/uL (0.0-0.2) Prothrombin Time 20.3 SEC (11.7-14.0) Prothromb Time International Ratio 1.8 (0.8-1.1) Activated Partial Thromboplast Time 35 SEC (24-38) Fibrinogen 82 mg/dL (200-440) Sodium Level 140 mmol/L (136-145) Potassium Level 4.2 mmol/L (3.5-5.1) Chloride Level 109 mmol/L (98-107) Carbon Dioxide Level 21 mmol/L (21-32) Anion Gap 10 (6-14) Blood Urea Nitrogen 31 mg/dL (8-26) Creatinine 0.8 mg/dL (0.7-1.3) Estimated GFR (Cockcroft-Gault) 97.0 Glucose Level 197 mg/dL (70-99) Calcium Level 7.5 mg/dL (8.5-10.1) Test 09/10/18 07:03 Glucose (Fingerstick) 150 mg/dL (70-99) Micro Microbiology 09/05/18 CSF Gram Stain - Final, Complete 09/03/18 Urine Culture - Final, Complete 09/03/18 Urine Culture Result 1 (LUIS M) - Final, Complete Objective Assessment Transverse myelitis, MRI 09/03/2018. CSF WBC 13, other studies noted , likely noninfectious -s/p LP. Opening pressure 20cm. CSF WBC 13, glucose 76, TP 86.4. No organisms seen. cx pending -HSV and HIV negative; CMV IgM <0.30. Treponema neg - HAD BEEN ON STEROIDS leukocytosis from steroids Cauda equina syndrome, status post surgery 06/2018. Urinary retention, neurogenic bladder, requiring straight catheterization for 2 months. UC no growth Recurrent urinary tract infection, 07/2018 pansensitive Escherichia coli, treated with ciprofloxacin. History of Clostridium difficile, 07/2018, treated, no recurrence. Status post laminectomy, 06/30/2018, L3-L5. Bilateral lower extremity weakness. Hyperlipidemia. Hypertension. Hyperglycemia. Non-occlusive thrombus, right posterior tibial and peroneal vein H/O seasonal allergies. Plan Plan of Care Acyclovir since 09/05 Cefepime and doxycycline since 09/05 p.o. vancomycin prophylaxis, b.i.d. dosing. Steroids f/u cultures/serologies Awaiting plasmapheresis today D/w MILIND GUZMAN MD Sep 10, 2018 08:39
[2018-09-10] MEDS ORDERED: CALCIUM GLUCONATE 2,000 MG in IV DEXTROSE 5% 100ML 100 ML IV ONE (08:45)
[2018-09-10] MEDS: BISACODYL 5 MG TABLET.DR. PO SCH (08:48)
[2018-09-10] MEDS: MULTIVITAMIN with MINERAL TABLET. PO SCH (08:49)
[2018-09-10] MEDS: VANCOMYCIN 125 MG/2.5 ML ORAL SOLUTION. PO SCH ×2 (08:49→20:52)
[2018-09-10] MEDS: oxyCODONE/APAP 5/325 1 TAB TABLET PO PRN ×2 (08:50→16:58)
[2018-09-10] MEDS: amLODIPine BESYLATE 10 MG TABLET PO SCH (08:50)
[2018-09-10] MEDS: LACTOBACILLUS RHAMNOSUS GG 1 CAPSULE. PO SCH ×2 (08:51→20:51)
[2018-09-10] MEDS: LOSARTAN POTASSIUM 50 MG TABLET. PO SCH (08:51)
[2018-09-10] MEDS: GABAPENTIN 100 MG CAPSULE. PO SCH ×4 (08:51→20:51)
[2018-09-10] MEDS: predniSONE 20 MG TABLET PO SCH (08:52)
[2018-09-10] MEDS: ASPIRIN ENTERIC COATED 81 MG TABLET.DR. PO SCH (08:54)
[2018-09-10] MEDS: DOXYCYCLINE HYCLATE 100 MG TABLET PO SCH ×2 (08:55→20:52)
[2018-09-10] MEDS: CALCIUM CARBONATE 500 MG TABLET PO SCH (08:55)
[2018-09-10] MEDS: METOPROLOL SUCC 24HR ER 50 MG TAB.ER.24H. PO SCH (08:55)
[2018-09-10] MEDS: CETIRIZINE HCL 10 MG TABLET. PO SCH (08:55)
[2018-09-10] MEDS: THIAMINE 100 MG TABLET. PO SCH (08:55)
[2018-09-10] MEDS: ENOXAPARIN 40 MG/0.4 ML SYRINGE. SQ SCH (08:56)
[2018-09-10] MEDS ORDERED: ALBUMIN HUMAN 5% 3,000 ML IV ONE (09:00)
--- NOTE | 2018-09-10 09:05 | PDOC ---
SUBJECTIVE Subjective Pt doing well this am. No problems with self cath per pt or spouse. They have enough catheters which they are bringing from home. Pt is getting plasmapheresis started today. OBJECTIVE Objective Physical Exam: General appearance: Alert and Oriented Head: Normocephalic, without obvious abnormality Eyes: conjunctivae/corneas clear. PERRL, EOM's intact. Fundi benign Lungs: Regular respirations, non labored breathing Pelvic: deferred Psych: appropriate, cooperative, no anxiety or depression. Vital Signs Vital Signs Date Time Temp Pulse Resp B/P (MAP) Pulse Ox O2 Delivery O2 Flow Rate FiO2 09/10/18 08:55 68 147/79 09/10/18 08:51 68 147/79 09/10/18 08:50 94 Room Air 09/10/18 08:50 68 147/79 09/10/18 08:00 Room Air 09/10/18 07:00 97.9 68 18 147/79 (101) 98 97.9 09/10/18 03:00 97.5 62 18 154/82 (106) 94 Room Air 97.5 09/09/18 23:39 97.5 65 18 132/75 (94) 92 Room Air 97.5 09/09/18 22:05 Room Air 09/09/18 20:22 Room Air 09/09/18 19:30 Room Air 09/09/18 19:00 98.7 67 18 141/71 (94) 90 Room Air 98.7 09/09/18 17:05 97.4 67 18 145/91 (109) 95 Room Air 97.4 09/09/18 11:07 97 09/09/18 11:00 97.4 77 17 159/85 (109) 95 Room Air 97.4 I & O Intake and Output 09/10/18 07:00 Intake Total 1120 ml Output Total 1700 ml Balance -580 ml Intake Oral 1120 ml Output Urine Total 1700 ml # Voids 3 # Bowel Movements 1 PHYSICAL EXAM Physical Exam General appearance: Alert and Oriented Head: Normocephalic, without obvious abnormality Eyes: conjunctivae/corneas clear. PERRL, EOM's intact. Fundi benign Lungs: Regular respirations, non labored breathing Pelvic: deferred Psych: appropriate, cooperative, no anxiety or depression. ASSESSMENT/PLAN Assessment/Plan Pt continues to I and O cath. No large volumes reported since consult visit yesterday. No problems or complaints with this. We do not recommend any more Flomax since patient does not void normally at all Will follow peripherally until discharge( pt getting plasmapheresis so may not be until Sunday or Sunday at the latest) Problems: (1) Neurogenic bladder COMMENT Lab Laboratory Tests Test 09/09/18 11:22 09/09/18 17:11 09/09/18 20:44 09/10/18 02:45 Glucose (Fingerstick) 175 mg/dL (70-99) 163 mg/dL (70-99) 161 mg/dL (70-99) White Blood Count 11.2 x10^3/uL (4.0-11.0) Red Blood Count 5.01 x10^6/uL (4.30-5.70) Hemoglobin 14.8 g/dL (13.0-17.5) Hematocrit 45.2 % (39.0-53.0) Mean Corpuscular Volume 90 fL (79-100) Mean Corpuscular Hemoglobin 30 pg (25-35) Mean Corpuscular Hemoglobin Concent 33 g/dL (31-37) Red Cell Distribution Width 14.3 % (11.5-14.5) Platelet Count 189 x10^3/uL (140-400) Neutrophils (%) (Auto) 90 % (31-73) Lymphocytes (%) (Auto) 5 % (24-48) Monocytes (%) (Auto) 5 % (0-9) Eosinophils (%) (Auto) 0 % (0-3) Basophils (%) (Auto) 0 % (0-3) Neutrophils # (Auto) 10.1 x10^3uL (1.8-7.7) Lymphocytes # (Auto) 0.5 x10^3/uL (1.0-4.8) Monocytes # (Auto) 0.6 x10^3/uL (0.0-1.1) Eosinophils # (Auto) 0.0 x10^3/uL (0.0-0.7) Basophils # (Auto) 0.0 x10^3/uL (0.0-0.2) Prothrombin Time 20.3 SEC (11.7-14.0) Prothromb Time International Ratio 1.8 (0.8-1.1) Activated Partial Thromboplast Time 35 SEC (24-38) Fibrinogen 82 mg/dL (200-440) Sodium Level 140 mmol/L (136-145) Potassium Level 4.2 mmol/L (3.5-5.1) Chloride Level 109 mmol/L (98-107) Carbon Dioxide Level 21 mmol/L (21-32) Anion Gap 10 (6-14) Blood Urea Nitrogen 31 mg/dL (8-26) Creatinine 0.8 mg/dL (0.7-1.3) Estimated GFR (Cockcroft-Gault) 97.0 Glucose Level 197 mg/dL (70-99) Calcium Level 7.5 mg/dL (8.5-10.1) Test 09/10/18 07:03 Glucose (Fingerstick) 150 mg/dL (70-99) JUSTEN SONG APRN Sep 10, 2018 09:05
--- NOTE | 2018-09-10 09:05 | PDOC ---
PROGRESS NOTES Subjective Subjective He feels that he had more sensation and movement today after plasma phoresis yesterday. Objective Objective Vital Signs Date Time Temp Pulse Resp B/P (MAP) Pulse Ox O2 Delivery O2 Flow Rate FiO2 09/10/18 08:55 68 147/79 09/10/18 08:50 94 Room Air 09/10/18 07:00 97.9 18 97.9 Intake and Output 09/10/18 07:00 Intake Total 1120 ml Output Total 1700 ml Balance -580 ml Intake Oral 1120 ml Output Urine Total 1700 ml # Voids 3 # Bowel Movements 1 Physical Exam Physical Exam He is supine in bed and comfortable and continues with paraparesis and mobility and self care limitations. He had dependent edema of his feet. Plan Plan of Care To rehab unit at [facility] when medically stable. Comment Review of Relevant I have reviewed the following items franc (where applicable) has been applied. Labs Laboratory Tests Test 09/08/18 09:08 09/08/18 10:50 09/08/18 16:45 09/08/18 20:25 White Blood Count 7.9 x10^3/uL (4.0-11.0) Red Blood Count 4.97 x10^6/uL (4.30-5.70) Hemoglobin 15.0 g/dL (13.0-17.5) Hematocrit 45.4 % (39.0-53.0) Mean Corpuscular Volume 91 fL (79-100) Mean Corpuscular Hemoglobin 30 pg (25-35) Mean Corpuscular Hemoglobin Concent 33 g/dL (31-37) Red Cell Distribution Width 14.4 % (11.5-14.5) Platelet Count 231 x10^3/uL (140-400) Neutrophils (%) (Auto) 92 % (31-73) Lymphocytes (%) (Auto) 5 % (24-48) Monocytes (%) (Auto) 3 % (0-9) Eosinophils (%) (Auto) 0 % (0-3) Basophils (%) (Auto) 0 % (0-3) Neutrophils # (Auto) 7.3 x10^3uL (1.8-7.7) Lymphocytes # (Auto) 0.4 x10^3/uL (1.0-4.8) Monocytes # (Auto) 0.3 x10^3/uL (0.0-1.1) Eosinophils # (Auto) 0.0 x10^3/uL (0.0-0.7) Basophils # (Auto) 0.0 x10^3/uL (0.0-0.2) Sodium Level 138 mmol/L (136-145) Potassium Level 3.8 mmol/L (3.5-5.1) Chloride Level 102 mmol/L (98-107) Carbon Dioxide Level 23 mmol/L (21-32) Anion Gap 13 (6-14) Blood Urea Nitrogen 40 mg/dL (8-26) Creatinine 0.9 mg/dL (0.7-1.3) Estimated GFR (Cockcroft-Gault) 84.7 Glucose Level 204 mg/dL (70-99) Calcium Level 8.7 mg/dL (8.5-10.1) Glucose (Fingerstick) 173 mg/dL (70-99) 164 mg/dL (70-99) 178 mg/dL (70-99) Test 09/09/18 03:25 09/09/18 07:06 09/09/18 11:22 09/09/18 17:11 White Blood Count 6.8 x10^3/uL (4.0-11.0) Red Blood Count 4.61 x10^6/uL (4.30-5.70) Hemoglobin 13.9 g/dL (13.0-17.5) Hematocrit 41.3 % (39.0-53.0) Mean Corpuscular Volume 90 fL (79-100) Mean Corpuscular Hemoglobin 30 pg (25-35) Mean Corpuscular Hemoglobin Concent 34 g/dL (31-37) Red Cell Distribution Width 14.4 % (11.5-14.5) Platelet Count 208 x10^3/uL (140-400) Neutrophils (%) (Auto) 91 % (31-73) Lymphocytes (%) (Auto) 5 % (24-48) Monocytes (%) (Auto) 3 % (0-9) Eosinophils (%) (Auto) 0 % (0-3) Basophils (%) (Auto) 0 % (0-3) Neutrophils # (Auto) 6.2 x10^3uL (1.8-7.7) Lymphocytes # (Auto) 0.4 x10^3/uL (1.0-4.8) Monocytes # (Auto) 0.2 x10^3/uL (0.0-1.1) Eosinophils # (Auto) 0.0 x10^3/uL (0.0-0.7) Basophils # (Auto) 0.0 x10^3/uL (0.0-0.2) Sodium Level 137 mmol/L (136-145) Potassium Level 3.9 mmol/L (3.5-5.1) Chloride Level 104 mmol/L (98-107) Carbon Dioxide Level 25 mmol/L (21-32) Anion Gap 8 (6-14) Blood Urea Nitrogen 35 mg/dL (8-26) Creatinine 0.8 mg/dL (0.7-1.3) Estimated GFR (Cockcroft-Gault) 97.0 Glucose Level 150 mg/dL (70-99) Calcium Level 8.1 mg/dL (8.5-10.1) Magnesium Level 2.7 mg/dL (1.8-2.4) Albumin 2.6 g/dL (3.4-5.0) Glucose (Fingerstick) 153 mg/dL (70-99) 175 mg/dL (70-99) 163 mg/dL (70-99) Test 09/09/18 20:44 09/10/18 02:45 09/10/18 07:03 Glucose (Fingerstick) 161 mg/dL (70-99) 150 mg/dL (70-99) White Blood Count 11.2 x10^3/uL (4.0-11.0) Red Blood Count 5.01 x10^6/uL (4.30-5.70) Hemoglobin 14.8 g/dL (13.0-17.5) Hematocrit 45.2 % (39.0-53.0) Mean Corpuscular Volume 90 fL (79-100) Mean Corpuscular Hemoglobin 30 pg (25-35) Mean Corpuscular Hemoglobin Concent 33 g/dL (31-37) Red Cell Distribution Width 14.3 % (11.5-14.5) Platelet Count 189 x10^3/uL (140-400) Neutrophils (%) (Auto) 90 % (31-73) Lymphocytes (%) (Auto) 5 % (24-48) Monocytes (%) (Auto) 5 % (0-9) Eosinophils (%) (Auto) 0 % (0-3) Basophils (%) (Auto) 0 % (0-3) Neutrophils # (Auto) 10.1 x10^3uL (1.8-7.7) Lymphocytes # (Auto) 0.5 x10^3/uL (1.0-4.8) Monocytes # (Auto) 0.6 x10^3/uL (0.0-1.1) Eosinophils # (Auto) 0.0 x10^3/uL (0.0-0.7) Basophils # (Auto) 0.0 x10^3/uL (0.0-0.2) Prothrombin Time 20.3 SEC (11.7-14.0) Prothromb Time International Ratio 1.8 (0.8-1.1) Activated Partial Thromboplast Time 35 SEC (24-38) Fibrinogen 82 mg/dL (200-440) Sodium Level 140 mmol/L (136-145) Potassium Level 4.2 mmol/L (3.5-5.1) Chloride Level 109 mmol/L (98-107) Carbon Dioxide Level 21 mmol/L (21-32) Anion Gap 10 (6-14) Blood Urea Nitrogen 31 mg/dL (8-26) Creatinine 0.8 mg/dL (0.7-1.3) Estimated GFR (Cockcroft-Gault) 97.0 Glucose Level 197 mg/dL (70-99) Calcium Level 7.5 mg/dL (8.5-10.1) Laboratory Tests Test 09/09/18 11:22 09/09/18 17:11 09/09/18 20:44 09/10/18 02:45 Glucose (Fingerstick) 175 mg/dL (70-99) 163 mg/dL (70-99) 161 mg/dL (70-99) White Blood Count 11.2 x10^3/uL (4.0-11.0) Red Blood Count 5.01 x10^6/uL (4.30-5.70) Hemoglobin 14.8 g/dL (13.0-17.5) Hematocrit 45.2 % (39.0-53.0) Mean Corpuscular Volume 90 fL (79-100) Mean Corpuscular Hemoglobin 30 pg (25-35) Mean Corpuscular Hemoglobin Concent 33 g/dL (31-37) Red Cell Distribution Width 14.3 % (11.5-14.5) Platelet Count 189 x10^3/uL (140-400) Neutrophils (%) (Auto) 90 % (31-73) Lymphocytes (%) (Auto) 5 % (24-48) Monocytes (%) (Auto) 5 % (0-9) Eosinophils (%) (Auto) 0 % (0-3) Basophils (%) (Auto) 0 % (0-3) Neutrophils # (Auto) 10.1 x10^3uL (1.8-7.7) Lymphocytes # (Auto) 0.5 x10^3/uL (1.0-4.8) Monocytes # (Auto) 0.6 x10^3/uL (0.0-1.1) Eosinophils # (Auto) 0.0 x10^3/uL (0.0-0.7) Basophils # (Auto) 0.0 x10^3/uL (0.0-0.2) Prothrombin Time 20.3 SEC (11.7-14.0) Prothromb Time International Ratio 1.8 (0.8-1.1) Activated Partial Thromboplast Time 35 SEC (24-38) Fibrinogen 82 mg/dL (200-440) Sodium Level 140 mmol/L (136-145) Potassium Level 4.2 mmol/L (3.5-5.1) Chloride Level 109 mmol/L (98-107) Carbon Dioxide Level 21 mmol/L (21-32) Anion Gap 10 (6-14) Blood Urea Nitrogen 31 mg/dL (8-26) Creatinine 0.8 mg/dL (0.7-1.3) Estimated GFR (Cockcroft-Gault) 97.0 Glucose Level 197 mg/dL (70-99) Calcium Level 7.5 mg/dL (8.5-10.1) Test 09/10/18 07:03 Glucose (Fingerstick) 150 mg/dL (70-99) Microbiology 09/05/18 CSF Gram Stain - Final, Complete 09/03/18 Urine Culture - Final, Complete 09/03/18 Urine Culture Result 1 (LUIS M) - Final, Complete Medications Current Medications Gadobutrol (Gadavist) 10 mmol 1X ONCE IV Last administered on 09/03/18at 15:35 ; Start 09/03/18 at 15:15; Stop 09/03/18 at 15:16; Status DC Aspirin (Ecotrin) 81 mg DAILYWBKFT PO Last administered on 09/10/18 08:54; Start 09/03/18 at 16:30 Docusate Sodium (Colace) 100 mg PRN DAILY PRN PO HARD STOOLS; Start 09/03/18 at 15:30 Tamsulosin HCl (Flomax) 0.4 mg BID PO Last administered on 09/08/18at 09:00; Start 09/03/18 at 21:00; Stop 09/08/18 at 10:46; Status DC Non-Formulary Medication (Amlodipine/ Valsartan (Exforge 10-320 Mg Tablet)) 1 tab DAILY PO ; Start 09/04/18 at 09:00; Status UNV Metoprolol Succinate (Toprol Xl) 50 mg DAILY PO Last administered on 09/10/18at 08:55; Start 09/03/18 at 16:30 Polyethylene Glycol (miraLAX PACKET) 17 gm PRN DAILY PRN PO CONSTIPATION 2ND CHOICE; Start 09/04/18 at 09:00 Atorvastatin Calcium (Lipitor) 40 mg QHS PO Last administered on 09/05/18at 21: 01; Start 09/03/18 at 21:00; Stop 09/06/18 at 15:52; Status DC Oxycodone/ Acetaminophen (Percocet 5/325) 1 tab PRN Q4HRS PRN PO PAIN; Start at 15:30; Stop 09/03/18 at 17:31; Status DC Amlodipine Besylate (Norvasc) 10 mg DAILY PO Last administered on 09/10/18 08: 50; Start 09/03/18 at 16:30 Losartan Potassium (Cozaar) 100 mg DAILY PO Last administered on 09/10/18 08:51 ; Start 09/03/18 at 16:30 Oxycodone/ Acetaminophen (Percocet 5/325) 1 tab PRN Q6HRS PRN PO MODERATE PAIN Last administered on 09/04/18at 11:07; Start 09/03/18 at 17:30; Stop 09/04/18 at 13:35; Status DC Ciprofloxacin (Cipro) 500 mg BID PO Last administered on 09/05/18at 08:27; Start 09/03/18 at 21:00; Stop 09/05/18 at 13:20; Status DC Oxycodone/ Acetaminophen (Percocet 5/325) 2 tab PRN Q6HRS PRN PO SEVERE PAIN; Start 09/03/18 at 17:45 Acetaminophen (Tylenol) 650 mg PRN Q4HRS PRN PO MILD PAIN Last administered on 09/03/18at 21:01; Start 09/03/18 at 18:45 Enoxaparin Sodium (Lovenox 120mg Syringe) 120 mg Q12HR SQ Last administered on 09/04/18at 07:55; Start 09/04/18 at 09:00; Stop 09/04/18 at 15:42; Status DC Methylprednisolone (Medrol) 8 mg BID PO Last administered on 09/04/18at 11:06; Start 09/04/18 at 10:00; Stop 09/04/18 at 13:28; Status DC Methylprednisolone (Medrol) 4 mg BIDPCLD PO ; Start 09/04/18 at 12:30; Stop at 13:28; Status DC Methylprednisolone (Medrol) 4 mg TIDPC PO ; Start 09/05/18 at 08:30; Stop at 08:30; Status DC Methylprednisolone (Medrol) 8 mg QHS PO ; Start 09/05/18 at 21:00; Stop at 21:00; Status DC Methylprednisolone (Medrol) 4 mg QIDAFTMEAL PO ; Start 09/06/18 at 09:00; Stop 09/06/18 at 09:00; Status DC Methylprednisolone (Medrol) 4 mg TID PO ; Start 09/07/18 at 09:00; Stop at 09:00; Status DC Methylprednisolone (Medrol) 4 mg BID PO ; Start 09/08/18 at 09:00; Stop at 09:00; Status DC Methylprednisolone (Medrol) 4 mg DAILY PO ; Start 09/09/18 at 09:00; Stop at 09:00; Status DC Pantoprazole Sodium (Protonix) 40 mg DAILYAC PO Last administered on 09/10/18at 06:33; Start 09/04/18 at 10:00 Bisacodyl (Dulcolax Tab) 10 mg DAILY PO Last administered on 09/09/18 08:25; Start 09/04/18 at 10:00 Bisacodyl (Dulcolax Supp) 10 mg PRN DAILY PRN [place] CONSTIPATION 1ST RECTAL CHOICE Last administered on 09/04/18at 19:38; Start 09/04/18 at 09:30 Docusate Sodium (Enemeez) 283 mg PRN DAILY PRN [place] CONSTIPATION 2ND RECTAL CHOICE; Start 09/04/18 at 09:30 Gadobutrol (Gadavist) 10 mmol 1X ONCE IV Last administered on 09/04/18 13:26 ; Start 09/04/18 at 13:30; Stop 09/04/18 at 13:31; Status DC Methylprednisolone Sodium Succinate (SOLU-Medrol 125MG VIAL) 500 mg BID IV ; Start 09/04/18 at 21:00; Status UNV Methylprednisolone Sodium Succinate 500 mg/Sodium Chloride 100 ml @ 100 mls/hr Q12HR IV Last administered on 09/09/18 08:30; Start 09/04/18 at 21:00; Stop 09/09/18 at 11:59; Status DC Methylprednisolone Sodium Succinate 500 mg/Sodium Chloride 100 ml @ 100 mls/hr Q12HR IV ; Start 09/04/18 at 21:00; Status Cancel Oxycodone/ Acetaminophen (Percocet 5/325) 1 tab PRN Q4HRS PRN PO MODERATE PAIN Last administered on 09/10/18 08:50; Start 09/04/18 at 13:45 Hydrocortisone Acetate (Anucort-Hc) 25 mg PRN DAILY PRN [place] RECTAL PAIN; Start 09/04/18 at 13:30 Enoxaparin Sodium (Lovenox 120mg Syringe) 110 mg Q12HR SQ Last administered on 09/05/18 21:35; Start 09/04/18 at 21:00; Stop 09/06/18 at 06:49; Status DC Lactobacillus Rhamnosus (Culturelle) 1 cap BID PO Last administered on 08:51; Start 09/04/18 at 21:00 Cefepime HCl (Maxipime) 2 gm Q8HRS IVP Last administered on 4/2/19at 06:33; Start 09/05/18 at 14:00 Vancomycin HCl (Vancomycin Oral Solution) 125 mg BID PO Last administered on 08:49; Start 09/05/18 at 21:00 Acyclovir Sodium 750 mg/Dextrose 265 ml @ 265 mls/hr Q8HRS IV Last administered on 09/10/18 06:32; Start 09/05/18 at 14:00 Doxycycline Hyclate (Vibra-Tab) 100 mg BID PO Last administered on 09/10/18 08: 55; Start 09/05/18 at 21:00 Info (Anti-Coagulation Monitoring By Pharmacy) 1 each PRN DAILY PRN MC SEE COMMENTS Last administered on 09/07/18 15:56; Start 09/05/18 at 14:00 Enoxaparin Sodium (Lovenox 120mg Syringe) 120 mg Q12HR SQ ; Start 09/06/18 at 06 :49; Status Cancel Enoxaparin Sodium (Lovenox 120mg Syringe) 120 mg Q12HR SQ Last administered on 09/06/18at 08:39; Start 09/06/18 at 09:00; Stop 09/06/18 at 16:44; Status DC Cetirizine HCl (ZyrTEC) 10 mg DAILY PO Last administered on 09/06/18at 15:12; Start 09/04/18 at 11:00; Stop 09/06/18 at 15:53; Status DC Insulin Human Lispro (HumaLOG) 0-7 UNITS TIDWMEALS SQ Last administered on 17:51; Start 09/06/18 at 17:00 Dextrose (Dextrose 50%-Water Syringe) 12.5 gm PRN Q15MIN PRN IV SEE COMMENTS; Start 09/06/18 at 12:30 Multivitamins (Thera M Plus) 1 tab DAILY PO Last administered on 09/10/18 08:49 ; Start 09/06/18 at 14:00 Calcium Carbonate/ Glycine (Oscal) 500 mg DAILY PO Last administered on 08:55; Start 09/06/18 at 14:00 Thiamine Mononitrate (Vitamin B-1) 100 mg DAILY PO Last administered on 08:55; Start 09/06/18 at 14:00 Cetirizine HCl (ZyrTEC) 10 mg DAILY PO Last administered on 09/10/18at 08:55; Start 09/06/18 at 15:00 Rivaroxaban (Xarelto) 15 mg BIDWMEALS PO Last administered on 09/06/18at 17:23; Start 09/06/18 at 17:00; Stop 09/07/18 at 08:22; Status DC Enoxaparin Sodium (Lovenox Per Pharmacy Treatment Dosing) 1 each PRN DAILY PRN MC SEE COMMENTS; Start 09/07/18 at 11:15; Stop 09/08/18 at 12:11; Status DC Enoxaparin Sodium (Lovenox 120mg Syringe) 120 mg Q12HR SQ Last administered on 09/08/18at 09:24; Start 09/07/18 at 11:15; Stop 09/08/18 at 12:10; Status DC Gabapentin (Neurontin) 100 mg TID PO Last administered on 09/08/18at 14:13; Start 09/07/18 at 21:00; Stop 09/08/18 at 16:27; Status DC Gabapentin (Neurontin) 300 mg TID PO Last administered on 09/10/18at 08:51; Start 09/08/18 at 21:00 Lidocaine/Sodium Bicarbonate (Buffered Lidocaine 1%) 3 ml STK-MED ONCE .ROUTE ; Start 09/09/18 at 08:52; Stop 09/09/18 at 08:53; Status DC Lidocaine/Sodium Bicarbonate (Buffered Lidocaine 1%) 3 ml 1X ONCE INJ Last administered on 09/09/18at 09:43; Start 09/09/18 at 09:30; Stop 09/09/18 at 09:31; Status DC Enoxaparin Sodium (Lovenox Per Pharmacy Prophylaxis Dosing) 1 each DAILY PRN MC SEE COMMENTS; Start 09/09/18 at 11:15 Enoxaparin Sodium (Lovenox 40mg Syringe) 40 mg DAILY SQ Last administered on 09/10/18at 08:56; Start 09/09/18 at 12:00 Prednisone (Prednisone) 70 mg DAILY PO Last administered on 09/10/18at 08:52; Start 09/09/18 at 12:00; Stop 09/15/18 at 09:01 Prednisone (Prednisone) 50 mg 1X ONCE PO ; Start 09/16/18 at 09:00; Stop at 09:01 Prednisone (Prednisone) 40 mg 1X ONCE PO ; Start 09/17/18 at 09:00; Stop at 09:01 Prednisone (Prednisone) 30 mg 1X ONCE PO ; Start 09/18/18 at 09:00; Stop at 09:01 Prednisone (Prednisone) 20 mg DAILY PO ; Start 09/19/18 at 09:00; Stop 09/21/18 at 09:01 Prednisone (Prednisone) 10 mg 1X ONCE PO ; Start 09/22/18 at 09:00; Stop at 09:01 Prednisone (Prednisone) 10 mg 1X ONCE PO ; Start 09/24/18 at 09:00; Stop at 09:01 Potassium Chloride (Klor-Con) 40 meq 1X STAT PO Last administered on 09/09/18at 13:54; Start 09/09/18 at 13:39; Stop 09/09/18 at 13:43; Status DC Albumin Human 3,000 ml @ 0 mls/hr 1X ONCE IV Last administered on 09/09/18at 15 :10; Start 09/09/18 at 14:00; Stop 09/09/18 at 14:01; Status DC Heparin Sodium (Porcine) (Heparin Sodium) 5,000 unit 1X ONCE IV Last administered on 09/09/18at 14:00; Start 09/09/18 at 14:00; Stop 09/09/18 at 14:01; Status DC Albumin Human 3,000 ml @ 0 mls/hr 1X ONCE IV ; Start 09/10/18 at 09:00; Stop at 09:01 Calcium Gluconate 2000 mg/Dextrose 120 ml @ 220 mls/hr 1X ONCE IV ; Start 09/10 at 08:45; Stop 09/10/18 at 09:17 Active Scripts Active Cipro (Ciprofloxacin Hcl) 500 Mg Tablet 1 Tab PO BID Aspirin Ec (Aspirin) 81 Mg Tablet.dr 81 Mg PO DAILYWBKFT 30 Days Colace (Docusate Sodium) 100 Mg Capsule 100 Mg PO PRN DAILY PRN 30 Days Polyethylene Glycol 3350 17 Gm Powd.pack 17 Gm PO PRN DAILY PRN 14 Days Flomax (Tamsulosin Hcl) 0.4 Mg Cap.er.24h 0.4 Mg PO BID 30 Days Reported Percocet 5-325 Mg Tablet (Oxycodone/Acetaminophen) 1 Each Tablet 1-2 Tab PO Q4-6HRS Exforge 10-320 Mg Tablet (Amlodipine/Valsartan) 1 Each Tablet 1 Tab PO DAILY Crestor (Rosuvastatin Calcium) 10 Mg Tablet 1 Tab PO DAILY Toprol Xl (Metoprolol Succinate) 50 Mg Tab.er.24h 1 Tab PO DAILY Vitals/I & O Vital Sign - Last 24 Hours 09/09/18 09/09/18 09/09/18 09/09/18 11:00 11:07 17:05 19:00 Temp 97.4 97.4 98.7 97.4 97.4 98.7 Pulse 77 67 67 Resp 17 18 18 B/P (MAP) 159/85 (109) 145/91 (109) 141/71 (94) Pulse Ox 95 97 95 90 O2 Delivery Room Air Room Air Room Air 09/09/18 09/09/18 09/09/18 09/09/18 19:30 20:22 22:05 23:39 Temp 97.5 97.5 Pulse 65 Resp 18 B/P (MAP) 132/75 (94) Pulse Ox 92 O2 Delivery Room Air Room Air Room Air Room Air 09/10/18 09/10/18 09/10/18 09/10/18 03:00 07:00 08:00 08:50 Temp 97.5 97.9 97.5 97.9 Pulse 62 68 68 Resp 18 18 B/P (MAP) 154/82 (106) 147/79 (101) 147/79 Pulse Ox 94 98 O2 Delivery Room Air Room Air 09/10/18 09/10/18 09/10/18 08:50 08:51 08:55 Pulse 68 68 B/P (MAP) 147/79 147/79 Pulse Ox 94 O2 Delivery Room Air Intake and Output 09/09/18 09/09/18 09/10/18 15:00 23:00 07:00 Intake Total 620 ml 250 ml 250 ml Output Total 1700 ml Balance 620 ml -1450 ml 250 ml LAMONT BASHIR MD Sep 10, 2018 09:05
--- NOTE | 2018-09-10 09:52 | PDOC ---
PROGRESS NOTES Chief Complaint Chief Complaint Transverse myelitis- Cauda Equina Syndrome Bilateral LE weakness S/p laminectomy (06/2018) L3-L5 Recent admission for UTI/C.Diff (07/2018) Neurogenic bladder- requiring straight cath x2 months Hyperlipidemia Essential hypertension leukocytosis from steroids Recurrent urinary tract infection, 07/2018 pansensitive Escherichia coli, treated with ciprofloxacin. History of Clostridium difficile, 07/2018, treated, no recurrence. Status post laminectomy, 06/30/2018, L3-L5. Bilateral lower extremity weakness. Hyperlipidemia. Hypertension. Hyperglycemia. Non-occlusive thrombus, right posterior tibial and peroneal vein H/O seasonal allergies. History of Present Illness History of Present Illness S/p PICC line trialysis catheter yesterday and feels improved after plasmapheresis. Plan for FFP today A bit less weak, no vomiting, some worse LE edema, better with ambulating, then raising Cefepime, acyclovir and doxycycline since 09/05 as well as steroids per ID, awaiting final culture and serology data p.o. vancomycin prophylaxis, b.i.d. dosing. Awaiting plasmapheresis again today - will be 5 total sessions likely. Vitals Vitals Vital Signs Date Time Temp Pulse Resp B/P (MAP) Pulse Ox O2 Delivery O2 Flow Rate FiO2 09/10/18 09:51 Room Air 09/10/18 08:55 68 147/79 09/10/18 08:50 94 09/10/18 07:00 97.9 18 97.9 Physical Exam Physical Exam GENERAL: Propped up in bed, alert, smiling HEENT: Oropharynx clear NECK: Supple. LUNGS: Clear bilaterally. No wheezing. HEART: S1, S2. ABDOMEN: Obese, soft, NT EXTREMITIES: Bilateral trace pedal edema. NEUROLOGIC: Alert and oriented x 3. Lower extremity weakness bilaterally can move LLE better and ? more with right SPINE: Back incision well healed, nontender. No surrounding redness or erythema. SKIN: Warm, dry. No generalized rash. PIV, right forearm, new. R subclavian clean trace bleed - General: Alert, Oriented X3, Cooperative, No acute distress Heart: Regular rate Lungs: Clear Abdomen: Normal bowel sounds, Soft, No tenderness Extremities: No clubbing, No cyanosis Labs LABS Laboratory Tests Test 09/09/18 11:22 09/09/18 17:11 09/09/18 20:44 09/10/18 02:45 Glucose (Fingerstick) 175 mg/dL (70-99) 163 mg/dL (70-99) 161 mg/dL (70-99) White Blood Count 11.2 x10^3/uL (4.0-11.0) Red Blood Count 5.01 x10^6/uL (4.30-5.70) Hemoglobin 14.8 g/dL (13.0-17.5) Hematocrit 45.2 % (39.0-53.0) Mean Corpuscular Volume 90 fL (79-100) Mean Corpuscular Hemoglobin 30 pg (25-35) Mean Corpuscular Hemoglobin Concent 33 g/dL (31-37) Red Cell Distribution Width 14.3 % (11.5-14.5) Platelet Count 189 x10^3/uL (140-400) Neutrophils (%) (Auto) 90 % (31-73) Lymphocytes (%) (Auto) 5 % (24-48) Monocytes (%) (Auto) 5 % (0-9) Eosinophils (%) (Auto) 0 % (0-3) Basophils (%) (Auto) 0 % (0-3) Neutrophils # (Auto) 10.1 x10^3uL (1.8-7.7) Lymphocytes # (Auto) 0.5 x10^3/uL (1.0-4.8) Monocytes # (Auto) 0.6 x10^3/uL (0.0-1.1) Eosinophils # (Auto) 0.0 x10^3/uL (0.0-0.7) Basophils # (Auto) 0.0 x10^3/uL (0.0-0.2) Prothrombin Time 20.3 SEC (11.7-14.0) Prothromb Time International Ratio 1.8 (0.8-1.1) Activated Partial Thromboplast Time 35 SEC (24-38) Fibrinogen 82 mg/dL (200-440) Sodium Level 140 mmol/L (136-145) Potassium Level 4.2 mmol/L (3.5-5.1) Chloride Level 109 mmol/L (98-107) Carbon Dioxide Level 21 mmol/L (21-32) Anion Gap 10 (6-14) Blood Urea Nitrogen 31 mg/dL (8-26) Creatinine 0.8 mg/dL (0.7-1.3) Estimated GFR (Cockcroft-Gault) 97.0 Glucose Level 197 mg/dL (70-99) Calcium Level 7.5 mg/dL (8.5-10.1) Test 09/10/18 07:03 Glucose (Fingerstick) 150 mg/dL (70-99) Comment Review of Relevant I have reviewed the following items franc (where applicable) has been applied. Labs Laboratory Tests Test 09/08/18 10:50 09/08/18 16:45 09/08/18 20:25 09/09/18 03:25 Glucose (Fingerstick) 173 mg/dL (70-99) 164 mg/dL (70-99) 178 mg/dL (70-99) White Blood Count 6.8 x10^3/uL (4.0-11.0) Red Blood Count 4.61 x10^6/uL (4.30-5.70) Hemoglobin 13.9 g/dL (13.0-17.5) Hematocrit 41.3 % (39.0-53.0) Mean Corpuscular Volume 90 fL (79-100) Mean Corpuscular Hemoglobin 30 pg (25-35) Mean Corpuscular Hemoglobin Concent 34 g/dL (31-37) Red Cell Distribution Width 14.4 % (11.5-14.5) Platelet Count 208 x10^3/uL (140-400) Neutrophils (%) (Auto) 91 % (31-73) Lymphocytes (%) (Auto) 5 % (24-48) Monocytes (%) (Auto) 3 % (0-9) Eosinophils (%) (Auto) 0 % (0-3) Basophils (%) (Auto) 0 % (0-3) Neutrophils # (Auto) 6.2 x10^3uL (1.8-7.7) Lymphocytes # (Auto) 0.4 x10^3/uL (1.0-4.8) Monocytes # (Auto) 0.2 x10^3/uL (0.0-1.1) Eosinophils # (Auto) 0.0 x10^3/uL (0.0-0.7) Basophils # (Auto) 0.0 x10^3/uL (0.0-0.2) Sodium Level 137 mmol/L (136-145) Potassium Level 3.9 mmol/L (3.5-5.1) Chloride Level 104 mmol/L (98-107) Carbon Dioxide Level 25 mmol/L (21-32) Anion Gap 8 (6-14) Blood Urea Nitrogen 35 mg/dL (8-26) Creatinine 0.8 mg/dL (0.7-1.3) Estimated GFR (Cockcroft-Gault) 97.0 Glucose Level 150 mg/dL (70-99) Calcium Level 8.1 mg/dL (8.5-10.1) Magnesium Level 2.7 mg/dL (1.8-2.4) Albumin 2.6 g/dL (3.4-5.0) Test 09/09/18 07:06 09/09/18 11:22 09/09/18 17:11 09/09/18 20:44 Glucose (Fingerstick) 153 mg/dL (70-99) 175 mg/dL (70-99) 163 mg/dL (70-99) 161 mg/dL (70-99) Test 09/10/18 02:45 09/10/18 07:03 White Blood Count 11.2 x10^3/uL (4.0-11.0) Red Blood Count 5.01 x10^6/uL (4.30-5.70) Hemoglobin 14.8 g/dL (13.0-17.5) Hematocrit 45.2 % (39.0-53.0) Mean Corpuscular Volume 90 fL (79-100) Mean Corpuscular Hemoglobin 30 pg (25-35) Mean Corpuscular Hemoglobin Concent 33 g/dL (31-37) Red Cell Distribution Width 14.3 % (11.5-14.5) Platelet Count 189 x10^3/uL (140-400) Neutrophils (%) (Auto) 90 % (31-73) Lymphocytes (%) (Auto) 5 % (24-48) Monocytes (%) (Auto) 5 % (0-9) Eosinophils (%) (Auto) 0 % (0-3) Basophils (%) (Auto) 0 % (0-3) Neutrophils # (Auto) 10.1 x10^3uL (1.8-7.7) Lymphocytes # (Auto) 0.5 x10^3/uL (1.0-4.8) Monocytes # (Auto) 0.6 x10^3/uL (0.0-1.1) Eosinophils # (Auto) 0.0 x10^3/uL (0.0-0.7) Basophils # (Auto) 0.0 x10^3/uL (0.0-0.2) Prothrombin Time 20.3 SEC (11.7-14.0) Prothromb Time International Ratio 1.8 (0.8-1.1) Activated Partial Thromboplast Time 35 SEC (24-38) Fibrinogen 82 mg/dL (200-440) Sodium Level 140 mmol/L (136-145) Potassium Level 4.2 mmol/L (3.5-5.1) Chloride Level 109 mmol/L (98-107) Carbon Dioxide Level 21 mmol/L (21-32) Anion Gap 10 (6-14) Blood Urea Nitrogen 31 mg/dL (8-26) Creatinine 0.8 mg/dL (0.7-1.3) Estimated GFR (Cockcroft-Gault) 97.0 Glucose Level 197 mg/dL (70-99) Calcium Level 7.5 mg/dL (8.5-10.1) Glucose (Fingerstick) 150 mg/dL (70-99) Laboratory Tests Test 09/09/18 11:22 09/09/18 17:11 09/09/18 20:44 09/10/18 02:45 Glucose (Fingerstick) 175 mg/dL (70-99) 163 mg/dL (70-99) 161 mg/dL (70-99) White Blood Count 11.2 x10^3/uL (4.0-11.0) Red Blood Count 5.01 x10^6/uL (4.30-5.70) Hemoglobin 14.8 g/dL (13.0-17.5) Hematocrit 45.2 % (39.0-53.0) Mean Corpuscular Volume 90 fL (79-100) Mean Corpuscular Hemoglobin 30 pg (25-35) Mean Corpuscular Hemoglobin Concent 33 g/dL (31-37) Red Cell Distribution Width 14.3 % (11.5-14.5) Platelet Count 189 x10^3/uL (140-400) Neutrophils (%) (Auto) 90 % (31-73) Lymphocytes (%) (Auto) 5 % (24-48) Monocytes (%) (Auto) 5 % (0-9) Eosinophils (%) (Auto) 0 % (0-3) Basophils (%) (Auto) 0 % (0-3) Neutrophils # (Auto) 10.1 x10^3uL (1.8-7.7) Lymphocytes # (Auto) 0.5 x10^3/uL (1.0-4.8) Monocytes # (Auto) 0.6 x10^3/uL (0.0-1.1) Eosinophils # (Auto) 0.0 x10^3/uL (0.0-0.7) Basophils # (Auto) 0.0 x10^3/uL (0.0-0.2) Prothrombin Time 20.3 SEC (11.7-14.0) Prothromb Time International Ratio 1.8 (0.8-1.1) Activated Partial Thromboplast Time 35 SEC (24-38) Fibrinogen 82 mg/dL (200-440) Sodium Level 140 mmol/L (136-145) Potassium Level 4.2 mmol/L (3.5-5.1) Chloride Level 109 mmol/L (98-107) Carbon Dioxide Level 21 mmol/L (21-32) Anion Gap 10 (6-14) Blood Urea Nitrogen 31 mg/dL (8-26) Creatinine 0.8 mg/dL (0.7-1.3) Estimated GFR (Cockcroft-Gault) 97.0 Glucose Level 197 mg/dL (70-99) Calcium Level 7.5 mg/dL (8.5-10.1) Test 09/10/18 07:03 Glucose (Fingerstick) 150 mg/dL (70-99) Microbiology 09/05/18 CSF Gram Stain - Final, Complete 09/03/18 Urine Culture - Final, Complete 09/03/18 Urine Culture Result 1 (LUIS M) - Final, Complete Medications Current Medications Gadobutrol (Gadavist) 10 mmol 1X ONCE IV Last administered on 09/03/18at 15:35 ; Start 09/03/18 at 15:15; Stop 09/03/18 at 15:16; Status DC Aspirin (Ecotrin) 81 mg DAILYWBKFT PO Last administered on 09/10/18 08:54; Start 09/03/18 at 16:30 Docusate Sodium (Colace) 100 mg PRN DAILY PRN PO HARD STOOLS; Start 09/03/18 at 15:30 Tamsulosin HCl (Flomax) 0.4 mg BID PO Last administered on 09/08/18 09:00; Start 09/03/18 at 21:00; Stop 09/08/18 at 10:46; Status DC Non-Formulary Medication (Amlodipine/ Valsartan (Exforge 10-320 Mg Tablet)) 1 tab DAILY PO ; Start 09/04/18 at 09:00; Status UNV Metoprolol Succinate (Toprol Xl) 50 mg DAILY PO Last administered on 09/10/18 08:55; Start 09/03/18 at 16:30 Polyethylene Glycol (miraLAX PACKET) 17 gm PRN DAILY PRN PO CONSTIPATION 2ND CHOICE; Start 09/04/18 at 09:00 Atorvastatin Calcium (Lipitor) 40 mg QHS PO Last administered on 09/05/18 21: 01; Start 09/03/18 at 21:00; Stop 09/06/18 at 15:52; Status DC Oxycodone/ Acetaminophen (Percocet 5/325) 1 tab PRN Q4HRS PRN PO PAIN; Start at 15:30; Stop 09/03/18 at 17:31; Status DC Amlodipine Besylate (Norvasc) 10 mg DAILY PO Last administered on 09/10/18 08: 50; Start 09/03/18 at 16:30 Losartan Potassium (Cozaar) 100 mg DAILY PO Last administered on 09/10/18 08:51 ; Start 09/03/18 at 16:30 Oxycodone/ Acetaminophen (Percocet 5/325) 1 tab PRN Q6HRS PRN PO MODERATE PAIN Last administered on 09/04/18 11:07; Start 09/03/18 at 17:30; Stop 09/04/18 at 13:35; Status DC Ciprofloxacin (Cipro) 500 mg BID PO Last administered on 09/05/18 08:27; Start 09/03/18 at 21:00; Stop 09/05/18 at 13:20; Status DC Oxycodone/ Acetaminophen (Percocet 5/325) 2 tab PRN Q6HRS PRN PO SEVERE PAIN; Start 09/03/18 at 17:45 Acetaminophen (Tylenol) 650 mg PRN Q4HRS PRN PO MILD PAIN Last administered on 09/03/18at 21:01; Start 09/03/18 at 18:45 Enoxaparin Sodium (Lovenox 120mg Syringe) 120 mg Q12HR SQ Last administered on 09/04/18at 07:55; Start 09/04/18 at 09:00; Stop 09/04/18 at 15:42; Status DC Methylprednisolone (Medrol) 8 mg BID PO Last administered on 09/04/18at 11:06; Start 09/04/18 at 10:00; Stop 09/04/18 at 13:28; Status DC Methylprednisolone (Medrol) 4 mg BIDPCLD PO ; Start 09/04/18 at 12:30; Stop at 13:28; Status DC Methylprednisolone (Medrol) 4 mg TIDPC PO ; Start 09/05/18 at 08:30; Stop at 08:30; Status DC Methylprednisolone (Medrol) 8 mg QHS PO ; Start 09/05/18 at 21:00; Stop at 21:00; Status DC Methylprednisolone (Medrol) 4 mg QIDAFTMEAL PO ; Start 09/06/18 at 09:00; Stop 09/06/18 at 09:00; Status DC Methylprednisolone (Medrol) 4 mg TID PO ; Start 09/07/18 at 09:00; Stop at 09:00; Status DC Methylprednisolone (Medrol) 4 mg BID PO ; Start 09/08/18 at 09:00; Stop at 09:00; Status DC Methylprednisolone (Medrol) 4 mg DAILY PO ; Start 09/09/18 at 09:00; Stop at 09:00; Status DC Pantoprazole Sodium (Protonix) 40 mg DAILYAC PO Last administered on 09/10/18at 06:33; Start 09/04/18 at 10:00 Bisacodyl (Dulcolax Tab) 10 mg DAILY PO Last administered on 09/09/18at 08:25; Start 09/04/18 at 10:00 Bisacodyl (Dulcolax Supp) [address] CONSTIPATION 1ST RECTAL CHOICE Last administered on 09/04/18at 19:38; Start 09/04/18 at 09:30 Docusate Sodium (Enemeez) [address] CONSTIPATION 2ND RECTAL CHOICE; Start 09/04/18 at 09:30 Gadobutrol (Gadavist) 10 mmol 1X ONCE IV Last administered on 09/04/18at 13:26 ; Start 09/04/18 at 13:30; Stop 09/04/18 at 13:31; Status DC Methylprednisolone Sodium Succinate (SOLU-Medrol 125MG VIAL) 500 mg BID IV ; Start 09/04/18 at 21:00; Status UNV Methylprednisolone Sodium Succinate 500 mg/Sodium Chloride 100 ml @ 100 mls/hr Q12HR IV Last administered on 09/09/18at 08:30; Start 09/04/18 at 21:00; Stop 09/09/18 at 11:59; Status DC Methylprednisolone Sodium Succinate 500 mg/Sodium Chloride 100 ml @ 100 mls/hr Q12HR IV ; Start 09/04/18 at 21:00; Status Cancel Oxycodone/ Acetaminophen (Percocet 5/325) 1 tab PRN Q4HRS PRN PO MODERATE PAIN Last administered on 09/10/18 08:50; Start 09/04/18 at 13:45 Hydrocortisone Acetate (Anucort-Hc) [address] RECTAL PAIN; Start 09/04/18 at 13:30 Enoxaparin Sodium (Lovenox 120mg Syringe) 110 mg Q12HR SQ Last administered on 09/05/18at 21:35; Start 09/04/18 at 21:00; Stop 09/06/18 at 06:49; Status DC Lactobacillus Rhamnosus (Culturelle) 1 cap BID PO Last administered on 08:51; Start 09/04/18 at 21:00 Cefepime HCl (Maxipime) 2 gm Q8HRS IVP Last administered on 09/10/18 06:33; Start 09/05/18 at 14:00 Vancomycin HCl (Vancomycin Oral Solution) 125 mg BID PO Last administered on 08:49; Start 09/05/18 at 21:00 Acyclovir Sodium 750 mg/Dextrose 265 ml @ 265 mls/hr Q8HRS IV Last administered on 09/10/18 06:32; Start 09/05/18 at 14:00 Doxycycline Hyclate (Vibra-Tab) 100 mg BID PO Last administered on 09/10/18 08: 55; Start 09/05/18 at 21:00 Info (Anti-Coagulation Monitoring By Pharmacy) 1 each PRN DAILY PRN MC SEE COMMENTS Last administered on 09/07/18 15:56; Start 09/05/18 at 14:00 Enoxaparin Sodium (Lovenox 120mg Syringe) 120 mg Q12HR SQ ; Start 09/06/18 at 06 :49; Status Cancel Enoxaparin Sodium (Lovenox 120mg Syringe) 120 mg Q12HR SQ Last administered on 09/06/18 08:39; Start 09/06/18 at 09:00; Stop 09/06/18 at 16:44; Status DC Cetirizine HCl (ZyrTEC) 10 mg DAILY PO Last administered on 09/06/18 15:12; Start 09/04/18 at 11:00; Stop 09/06/18 at 15:53; Status DC Insulin Human Lispro (HumaLOG) 0-7 UNITS TIDWMEALS SQ Last administered on 17:51; Start 09/06/18 at 17:00 Dextrose (Dextrose 50%-Water Syringe) 12.5 gm PRN Q15MIN PRN IV SEE COMMENTS; Start 09/06/18 at 12:30 Multivitamins (Thera M Plus) 1 tab DAILY PO Last administered on 09/10/18 08:49 ; Start 09/06/18 at 14:00 Calcium Carbonate/ Glycine (Oscal) 500 mg DAILY PO Last administered on 08:55; Start 09/06/18 at 14:00 Thiamine Mononitrate (Vitamin B-1) 100 mg DAILY PO Last administered on 08:55; Start 09/06/18 at 14:00 Cetirizine HCl (ZyrTEC) 10 mg DAILY PO Last administered on 09/10/18 08:55; Start 09/06/18 at 15:00 Rivaroxaban (Xarelto) 15 mg BIDWMEALS PO Last administered on 3/29/19at 17:23; Start 09/06/18 at 17:00; Stop 09/07/18 at 08:22; Status DC Enoxaparin Sodium (Lovenox Per Pharmacy Treatment Dosing) 1 each PRN DAILY PRN MC SEE COMMENTS; Start 09/07/18 at 11:15; Stop 09/08/18 at 12:11; Status DC Enoxaparin Sodium (Lovenox 120mg Syringe) 120 mg Q12HR SQ Last administered on 09/08/18at 09:24; Start 09/07/18 at 11:15; Stop 09/08/18 at 12:10; Status DC Gabapentin (Neurontin) 100 mg TID PO Last administered on 09/08/18at 14:13; Start 09/07/18 at 21:00; Stop 09/08/18 at 16:27; Status DC Gabapentin (Neurontin) 300 mg TID PO Last administered on 09/10/18at 08:51; Start 09/08/18 at 21:00 Lidocaine/Sodium Bicarbonate (Buffered Lidocaine 1%) 3 ml STK-MED ONCE .ROUTE ; Start 09/09/18 at 08:52; Stop 09/09/18 at 08:53; Status DC Lidocaine/Sodium Bicarbonate (Buffered Lidocaine 1%) 3 ml 1X ONCE INJ Last administered on 09/09/18at 09:43; Start 09/09/18 at 09:30; Stop 09/09/18 at 09:31; Status DC Enoxaparin Sodium (Lovenox Per Pharmacy Prophylaxis Dosing) 1 each DAILY PRN MC SEE COMMENTS; Start 09/09/18 at 11:15 Enoxaparin Sodium (Lovenox 40mg Syringe) 40 mg DAILY SQ Last administered on 09/10/18at 08:56; Start 09/09/18 at 12:00 Prednisone (Prednisone) 70 mg DAILY PO Last administered on 09/10/18at 08:52; Start 09/09/18 at 12:00; Stop 09/15/18 at 09:01 Prednisone (Prednisone) 50 mg 1X ONCE PO ; Start 09/16/18 at 09:00; Stop at 09:01 Prednisone (Prednisone) 40 mg 1X ONCE PO ; Start 09/17/18 at 09:00; Stop at 09:01 Prednisone (Prednisone) 30 mg 1X ONCE PO ; Start 09/18/18 at 09:00; Stop at 09:01 Prednisone (Prednisone) 20 mg DAILY PO ; Start 09/19/18 at 09:00; Stop 09/21/18 at 09:01 Prednisone (Prednisone) 10 mg 1X ONCE PO ; Start 09/22/18 at 09:00; Stop at 09:01 Prednisone (Prednisone) 10 mg 1X ONCE PO ; Start 09/24/18 at 09:00; Stop at 09:01 Potassium Chloride (Klor-Con) 40 meq 1X STAT PO Last administered on 09/09/18at 13:54; Start 09/09/18 at 13:39; Stop 09/09/18 at 13:43; Status DC Albumin Human 3,000 ml @ 0 mls/hr 1X ONCE IV Last administered on 09/09/18at 15 :10; Start 09/09/18 at 14:00; Stop 09/09/18 at 14:01; Status DC Heparin Sodium (Porcine) (Heparin Sodium) 5,000 unit 1X ONCE IV Last administered on 09/09/18at 14:00; Start 09/09/18 at 14:00; Stop 09/09/18 at 14:01; Status DC Albumin Human 3,000 ml @ 0 mls/hr 1X ONCE IV ; Start 09/10/18 at 09:00; Stop at 09:01; Status DC Calcium Gluconate 2000 mg/Dextrose 120 ml @ 220 mls/hr 1X ONCE IV ; Start 09/10 at 08:45; Stop 09/10/18 at 09:17; Status DC Active Scripts Active Cipro (Ciprofloxacin Hcl) 500 Mg Tablet 1 Tab PO BID Aspirin Ec (Aspirin) 81 Mg Tablet.dr 81 Mg PO DAILYWBKFT 30 Days Colace (Docusate Sodium) 100 Mg Capsule 100 Mg PO PRN DAILY PRN 30 Days Polyethylene Glycol 3350 17 Gm Powd.pack 17 Gm PO PRN DAILY PRN 14 Days Flomax (Tamsulosin Hcl) 0.4 Mg Cap.er.24h 0.4 Mg PO BID 30 Days Reported Percocet 5-325 Mg Tablet (Oxycodone/Acetaminophen) 1 Each Tablet 1-2 Tab PO Q4-6HRS Exforge 10-320 Mg Tablet (Amlodipine/Valsartan) 1 Each Tablet 1 Tab PO DAILY Crestor (Rosuvastatin Calcium) 10 Mg Tablet 1 Tab PO DAILY Toprol Xl (Metoprolol Succinate) 50 Mg Tab.er.24h 1 Tab PO DAILY Vitals/I & O Vital Sign - Last 24 Hours 09/09/18 09/09/18 09/09/18 09/09/18 11:00 11:07 17:05 19:00 Temp 97.4 97.4 98.7 97.4 97.4 98.7 Pulse 77 67 67 Resp 17 18 18 B/P (MAP) 159/85 (109) 145/91 (109) 141/71 (94) Pulse Ox 95 97 95 90 O2 Delivery Room Air Room Air Room Air 09/09/18 09/09/18 09/09/18 09/10/18 19:30 20:22 23:39 03:00 Temp 97.5 97.5 97.5 97.5 Pulse 65 62 Resp 18 18 B/P (MAP) 132/75 (94) 154/82 (106) Pulse Ox 92 94 O2 Delivery Room Air Room Air Room Air Room Air 09/10/18 09/10/18 09/10/18 09/10/18 07:00 08:00 08:50 08:50 Temp 97.9 97.9 Pulse 68 68 Resp 18 B/P (MAP) 147/79 (101) 147/79 Pulse Ox 98 94 O2 Delivery Room Air Room Air 09/10/18 09/10/18 09/10/18 08:51 08:55 09:51 Pulse 68 68 B/P (MAP) 147/79 147/79 O2 Delivery Room Air Intake and Output 09/09/18 09/09/18 09/10/18 14:59 22:59 06:59 Intake Total 620 ml 250 ml 250 ml Output Total 1700 ml Balance 620 ml -1450 ml 250 ml MANDY COOMBS MD Sep 10, 2018 09:52
--- NOTE | 2018-09-10 10:14 | NUR ---
SW following. Discussed with RN, pt will need 5 days of the plasma exchange. IRENE spoke with [facility], pt has reached $[phone] of $5000 of his out of pocket benefit. Pt will have a $350 co pay per admit to [facility]. Pt should have last plasma exchange on Sunday, SW finding out whether pt can discharge after the last plasma exchange or whether there is a monitoring period. [facility] reported they should have a bed available on Sunday. IRENE to meet with family to discuss the $350 copay. IRENE will continue to follow.
[2018-09-10 10:20] LABS: WEST NILE IGG CSF Positive (Negative); WEST NILE IGM CSF Negative (Negative)
--- NOTE | 2018-09-10 10:31 | PDOC ---
PROGRESS NOTES Subjective Subjective feels that sensation and strength have improved since plasma exchange yesterday Objective Objective Vital Signs Date Time Temp Pulse Resp B/P (MAP) Pulse Ox O2 Delivery O2 Flow Rate FiO2 09/10/18 09:51 Room Air 09/10/18 08:55 68 147/79 09/10/18 08:50 94 09/10/18 07:00 97.9 18 97.9 Intake and Output 09/10/18 06:59 Intake Total 1120 ml Output Total 1700 ml Balance -580 ml Intake Oral 1120 ml Output Urine Total 1700 ml # Voids 3 # Bowel Movements 1 Physical Exam General: Alert, Oriented X3, Cooperative, No acute distress Neuro: Normal speech, Other (sensation has slightly improved to light touch in the lower extremities) Plan Plan of Care continue with plasma exchange will follow progress consider IVC filter Comment Review of Relevant I have reviewed the following items franc (where applicable) has been applied. Labs Laboratory Tests Test 09/08/18 10:50 09/08/18 16:45 09/08/18 20:25 09/09/18 03:25 Glucose (Fingerstick) 173 mg/dL (70-99) 164 mg/dL (70-99) 178 mg/dL (70-99) White Blood Count 6.8 x10^3/uL (4.0-11.0) Red Blood Count 4.61 x10^6/uL (4.30-5.70) Hemoglobin 13.9 g/dL (13.0-17.5) Hematocrit 41.3 % (39.0-53.0) Mean Corpuscular Volume 90 fL (79-100) Mean Corpuscular Hemoglobin 30 pg (25-35) Mean Corpuscular Hemoglobin Concent 34 g/dL (31-37) Red Cell Distribution Width 14.4 % (11.5-14.5) Platelet Count 208 x10^3/uL (140-400) Neutrophils (%) (Auto) 91 % (31-73) Lymphocytes (%) (Auto) 5 % (24-48) Monocytes (%) (Auto) 3 % (0-9) Eosinophils (%) (Auto) 0 % (0-3) Basophils (%) (Auto) 0 % (0-3) Neutrophils # (Auto) 6.2 x10^3uL (1.8-7.7) Lymphocytes # (Auto) 0.4 x10^3/uL (1.0-4.8) Monocytes # (Auto) 0.2 x10^3/uL (0.0-1.1) Eosinophils # (Auto) 0.0 x10^3/uL (0.0-0.7) Basophils # (Auto) 0.0 x10^3/uL (0.0-0.2) Sodium Level 137 mmol/L (136-145) Potassium Level 3.9 mmol/L (3.5-5.1) Chloride Level 104 mmol/L (98-107) Carbon Dioxide Level 25 mmol/L (21-32) Anion Gap 8 (6-14) Blood Urea Nitrogen 35 mg/dL (8-26) Creatinine 0.8 mg/dL (0.7-1.3) Estimated GFR (Cockcroft-Gault) 97.0 Glucose Level 150 mg/dL (70-99) Calcium Level 8.1 mg/dL (8.5-10.1) Magnesium Level 2.7 mg/dL (1.8-2.4) Albumin 2.6 g/dL (3.4-5.0) Test 09/09/18 07:06 09/09/18 11:22 09/09/18 17:11 09/09/18 20:44 Glucose (Fingerstick) 153 mg/dL (70-99) 175 mg/dL (70-99) 163 mg/dL (70-99) 161 mg/dL (70-99) Test 09/10/18 02:45 09/10/18 07:03 White Blood Count 11.2 x10^3/uL (4.0-11.0) Red Blood Count 5.01 x10^6/uL (4.30-5.70) Hemoglobin 14.8 g/dL (13.0-17.5) Hematocrit 45.2 % (39.0-53.0) Mean Corpuscular Volume 90 fL (79-100) Mean Corpuscular Hemoglobin 30 pg (25-35) Mean Corpuscular Hemoglobin Concent 33 g/dL (31-37) Red Cell Distribution Width 14.3 % (11.5-14.5) Platelet Count 189 x10^3/uL (140-400) Neutrophils (%) (Auto) 90 % (31-73) Lymphocytes (%) (Auto) 5 % (24-48) Monocytes (%) (Auto) 5 % (0-9) Eosinophils (%) (Auto) 0 % (0-3) Basophils (%) (Auto) 0 % (0-3) Neutrophils # (Auto) 10.1 x10^3uL (1.8-7.7) Lymphocytes # (Auto) 0.5 x10^3/uL (1.0-4.8) Monocytes # (Auto) 0.6 x10^3/uL (0.0-1.1) Eosinophils # (Auto) 0.0 x10^3/uL (0.0-0.7) Basophils # (Auto) 0.0 x10^3/uL (0.0-0.2) Prothrombin Time 20.3 SEC (11.7-14.0) Prothromb Time International Ratio 1.8 (0.8-1.1) Activated Partial Thromboplast Time 35 SEC (24-38) Fibrinogen 82 mg/dL (200-440) Sodium Level 140 mmol/L (136-145) Potassium Level 4.2 mmol/L (3.5-5.1) Chloride Level 109 mmol/L (98-107) Carbon Dioxide Level 21 mmol/L (21-32) Anion Gap 10 (6-14) Blood Urea Nitrogen 31 mg/dL (8-26) Creatinine 0.8 mg/dL (0.7-1.3) Estimated GFR (Cockcroft-Gault) 97.0 Glucose Level 197 mg/dL (70-99) Calcium Level 7.5 mg/dL (8.5-10.1) Glucose (Fingerstick) 150 mg/dL (70-99) Laboratory Tests Test 09/09/18 11:22 09/09/18 17:11 09/09/18 20:44 09/10/18 02:45 Glucose (Fingerstick) 175 mg/dL (70-99) 163 mg/dL (70-99) 161 mg/dL (70-99) White Blood Count 11.2 x10^3/uL (4.0-11.0) Red Blood Count 5.01 x10^6/uL (4.30-5.70) Hemoglobin 14.8 g/dL (13.0-17.5) Hematocrit 45.2 % (39.0-53.0) Mean Corpuscular Volume 90 fL (79-100) Mean Corpuscular Hemoglobin 30 pg (25-35) Mean Corpuscular Hemoglobin Concent 33 g/dL (31-37) Red Cell Distribution Width 14.3 % (11.5-14.5) Platelet Count 189 x10^3/uL (140-400) Neutrophils (%) (Auto) 90 % (31-73) Lymphocytes (%) (Auto) 5 % (24-48) Monocytes (%) (Auto) 5 % (0-9) Eosinophils (%) (Auto) 0 % (0-3) Basophils (%) (Auto) 0 % (0-3) Neutrophils # (Auto) 10.1 x10^3uL (1.8-7.7) Lymphocytes # (Auto) 0.5 x10^3/uL (1.0-4.8) Monocytes # (Auto) 0.6 x10^3/uL (0.0-1.1) Eosinophils # (Auto) 0.0 x10^3/uL (0.0-0.7) Basophils # (Auto) 0.0 x10^3/uL (0.0-0.2) Prothrombin Time 20.3 SEC (11.7-14.0) Prothromb Time International Ratio 1.8 (0.8-1.1) Activated Partial Thromboplast Time 35 SEC (24-38) Fibrinogen 82 mg/dL (200-440) Sodium Level 140 mmol/L (136-145) Potassium Level 4.2 mmol/L (3.5-5.1) Chloride Level 109 mmol/L (98-107) Carbon Dioxide Level 21 mmol/L (21-32) Anion Gap 10 (6-14) Blood Urea Nitrogen 31 mg/dL (8-26) Creatinine 0.8 mg/dL (0.7-1.3) Estimated GFR (Cockcroft-Gault) 97.0 Glucose Level 197 mg/dL (70-99) Calcium Level 7.5 mg/dL (8.5-10.1) Test 09/10/18 07:03 Glucose (Fingerstick) 150 mg/dL (70-99) Microbiology 09/05/18 CSF Gram Stain - Final, Complete 09/03/18 Urine Culture - Final, Complete 09/03/18 Urine Culture Result 1 (LUIS M) - Final, Complete Medications Current Medications Gadobutrol (Gadavist) 10 mmol 1X ONCE IV Last administered on 09/03/18at 15:35 ; Start 09/03/18 at 15:15; Stop 09/03/18 at 15:16; Status DC Aspirin (Ecotrin) 81 mg DAILYWBKFT PO Last administered on 09/10/18at 08:54; Start 09/03/18 at 16:30 Docusate Sodium (Colace) 100 mg PRN DAILY PRN PO HARD STOOLS; Start 09/03/18 at 15:30 Tamsulosin HCl (Flomax) 0.4 mg BID PO Last administered on 09/08/18at 09:00; Start 09/03/18 at 21:00; Stop 09/08/18 at 10:46; Status DC Non-Formulary Medication (Amlodipine/ Valsartan (Exforge 10-320 Mg Tablet)) 1 tab DAILY PO ; Start 09/04/18 at 09:00; Status UNV Metoprolol Succinate (Toprol Xl) 50 mg DAILY PO Last administered on 09/10/18at 08:55; Start 09/03/18 at 16:30 Polyethylene Glycol (miraLAX PACKET) 17 gm PRN DAILY PRN PO CONSTIPATION 2ND CHOICE; Start 09/04/18 at 09:00 Atorvastatin Calcium (Lipitor) 40 mg QHS PO Last administered on 09/05/18at 21: 01; Start 09/03/18 at 21:00; Stop 09/06/18 at 15:52; Status DC Oxycodone/ Acetaminophen (Percocet 5/325) 1 tab PRN Q4HRS PRN PO PAIN; Start at 15:30; Stop 09/03/18 at 17:31; Status DC Amlodipine Besylate (Norvasc) 10 mg DAILY PO Last administered on 09/10/18 08: 50; Start 09/03/18 at 16:30 Losartan Potassium (Cozaar) 100 mg DAILY PO Last administered on 09/10/18 08:51 ; Start 09/03/18 at 16:30 Oxycodone/ Acetaminophen (Percocet 5/325) 1 tab PRN Q6HRS PRN PO MODERATE PAIN Last administered on 09/04/18at 11:07; Start 09/03/18 at 17:30; Stop 09/04/18 at 13:35; Status DC Ciprofloxacin (Cipro) 500 mg BID PO Last administered on 09/05/18at 08:27; Start 09/03/18 at 21:00; Stop 09/05/18 at 13:20; Status DC Oxycodone/ Acetaminophen (Percocet 5/325) 2 tab PRN Q6HRS PRN PO SEVERE PAIN; Start 09/03/18 at 17:45 Acetaminophen (Tylenol) 650 mg PRN Q4HRS PRN PO MILD PAIN Last administered on 09/03/18at 21:01; Start 09/03/18 at 18:45 Enoxaparin Sodium (Lovenox 120mg Syringe) 120 mg Q12HR SQ Last administered on 09/04/18at 07:55; Start 09/04/18 at 09:00; Stop 09/04/18 at 15:42; Status DC Methylprednisolone (Medrol) 8 mg BID PO Last administered on 09/04/18at 11:06; Start 09/04/18 at 10:00; Stop 09/04/18 at 13:28; Status DC Methylprednisolone (Medrol) 4 mg BIDPCLD PO ; Start 09/04/18 at 12:30; Stop at 13:28; Status DC Methylprednisolone (Medrol) 4 mg TIDPC PO ; Start 09/05/18 at 08:30; Stop at 08:30; Status DC Methylprednisolone (Medrol) 8 mg QHS PO ; Start 09/05/18 at 21:00; Stop at 21:00; Status DC Methylprednisolone (Medrol) 4 mg QIDAFTMEAL PO ; Start 09/06/18 at 09:00; Stop 09/06/18 at 09:00; Status DC Methylprednisolone (Medrol) 4 mg TID PO ; Start 09/07/18 at 09:00; Stop at 09:00; Status DC Methylprednisolone (Medrol) 4 mg BID PO ; Start 09/08/18 at 09:00; Stop at 09:00; Status DC Methylprednisolone (Medrol) 4 mg DAILY PO ; Start 09/09/18 at 09:00; Stop at 09:00; Status DC Pantoprazole Sodium (Protonix) 40 mg DAILYAC PO Last administered on 09/10/18 06:33; Start 09/04/18 at 10:00 Bisacodyl (Dulcolax Tab) 10 mg DAILY PO Last administered on 09/09/18 08:25; Start 09/04/18 at 10:00 Bisacodyl (Dulcolax Supp) 10 mg PRN DAILY PRN [place] CONSTIPATION 1ST RECTAL CHOICE Last administered on 09/04/18at 19:38; Start 09/04/18 at 09:30 Docusate Sodium (Enemeez) 283 mg PRN DAILY PRN [place] CONSTIPATION 2ND RECTAL CHOICE; Start 09/04/18 at 09:30 Gadobutrol (Gadavist) 10 mmol 1X ONCE IV Last administered on 09/04/18 13:26 ; Start 09/04/18 at 13:30; Stop 09/04/18 at 13:31; Status DC Methylprednisolone Sodium Succinate (SOLU-Medrol 125MG VIAL) 500 mg BID IV ; Start 09/04/18 at 21:00; Status UNV Methylprednisolone Sodium Succinate 500 mg/Sodium Chloride 100 ml @ 100 mls/hr Q12HR IV Last administered on 09/09/18 08:30; Start 09/04/18 at 21:00; Stop 09/09/18 at 11:59; Status DC Methylprednisolone Sodium Succinate 500 mg/Sodium Chloride 100 ml @ 100 mls/hr Q12HR IV ; Start 09/04/18 at 21:00; Status Cancel Oxycodone/ Acetaminophen (Percocet 5/325) 1 tab PRN Q4HRS PRN PO MODERATE PAIN Last administered on 09/10/18at 08:50; Start 09/04/18 at 13:45 Hydrocortisone Acetate (Anucort-Hc) 25 mg PRN DAILY PRN [place] RECTAL PAIN; Start 09/04/18 at 13:30 Enoxaparin Sodium (Lovenox 120mg Syringe) 110 mg Q12HR SQ Last administered on 09/05/18at 21:35; Start 09/04/18 at 21:00; Stop 09/06/18 at 06:49; Status DC Lactobacillus Rhamnosus (Culturelle) 1 cap BID PO Last administered on 08:51; Start 09/04/18 at 21:00 Cefepime HCl (Maxipime) 2 gm Q8HRS IVP Last administered on 09/10/18 06:33; Start 09/05/18 at 14:00 Vancomycin HCl (Vancomycin Oral Solution) 125 mg BID PO Last administered on 08:49; Start 09/05/18 at 21:00 Acyclovir Sodium 750 mg/Dextrose 265 ml @ 265 mls/hr Q8HRS IV Last administered on 09/10/18 06:32; Start 09/05/18 at 14:00 Doxycycline Hyclate (Vibra-Tab) 100 mg BID PO Last administered on 09/10/18 08: 55; Start 09/05/18 at 21:00 Info (Anti-Coagulation Monitoring By Pharmacy) 1 each PRN DAILY PRN MC SEE COMMENTS Last administered on 09/07/18 15:56; Start 09/05/18 at 14:00 Enoxaparin Sodium (Lovenox 120mg Syringe) 120 mg Q12HR SQ ; Start 09/06/18 at 06 :49; Status Cancel Enoxaparin Sodium (Lovenox 120mg Syringe) 120 mg Q12HR SQ Last administered on 09/06/18 08:39; Start 09/06/18 at 09:00; Stop 09/06/18 at 16:44; Status DC Cetirizine HCl (ZyrTEC) 10 mg DAILY PO Last administered on 09/06/18 15:12; Start 09/04/18 at 11:00; Stop 09/06/18 at 15:53; Status DC Insulin Human Lispro (HumaLOG) 0-7 UNITS TIDWMEALS SQ Last administered on 17:51; Start 09/06/18 at 17:00 Dextrose (Dextrose 50%-Water Syringe) 12.5 gm PRN Q15MIN PRN IV SEE COMMENTS; Start 09/06/18 at 12:30 Multivitamins (Thera M Plus) 1 tab DAILY PO Last administered on 09/10/18 08:49 ; Start 09/06/18 at 14:00 Calcium Carbonate/ Glycine (Oscal) 500 mg DAILY PO Last administered on 08:55; Start 09/06/18 at 14:00 Thiamine Mononitrate (Vitamin B-1) 100 mg DAILY PO Last administered on 08:55; Start 09/06/18 at 14:00 Cetirizine HCl (ZyrTEC) 10 mg DAILY PO Last administered on 09/10/18 08:55; Start 09/06/18 at 15:00 Rivaroxaban (Xarelto) 15 mg BIDWMEALS PO Last administered on 09/06/18at 17:23; Start 09/06/18 at 17:00; Stop 09/07/18 at 08:22; Status DC Enoxaparin Sodium (Lovenox Per Pharmacy Treatment Dosing) 1 each PRN DAILY PRN MC SEE COMMENTS; Start 09/07/18 at 11:15; Stop 09/08/18 at 12:11; Status DC Enoxaparin Sodium (Lovenox 120mg Syringe) 120 mg Q12HR SQ Last administered on 09/08/18at 09:24; Start 09/07/18 at 11:15; Stop 09/08/18 at 12:10; Status DC Gabapentin (Neurontin) 100 mg TID PO Last administered on 09/08/18at 14:13; Start 09/07/18 at 21:00; Stop 09/08/18 at 16:27; Status DC Gabapentin (Neurontin) 300 mg TID PO Last administered on 09/10/18at 08:51; Start 09/08/18 at 21:00 Lidocaine/Sodium Bicarbonate (Buffered Lidocaine 1%) 3 ml STK-MED ONCE .ROUTE ; Start 09/09/18 at 08:52; Stop 09/09/18 at 08:53; Status DC Lidocaine/Sodium Bicarbonate (Buffered Lidocaine 1%) 3 ml 1X ONCE INJ Last administered on 09/09/18at 09:43; Start 09/09/18 at 09:30; Stop 09/09/18 at 09:31; Status DC Enoxaparin Sodium (Lovenox Per Pharmacy Prophylaxis Dosing) 1 each DAILY PRN MC SEE COMMENTS; Start 09/09/18 at 11:15 Enoxaparin Sodium (Lovenox 40mg Syringe) 40 mg DAILY SQ Last administered on 09/10/18at 08:56; Start 09/09/18 at 12:00 Prednisone (Prednisone) 70 mg DAILY PO Last administered on 09/10/18at 08:52; Start 09/09/18 at 12:00; Stop 09/15/18 at 09:01 Prednisone (Prednisone) 50 mg 1X ONCE PO ; Start 09/16/18 at 09:00; Stop at 09:01 Prednisone (Prednisone) 40 mg 1X ONCE PO ; Start 09/17/18 at 09:00; Stop at 09:01 Prednisone (Prednisone) 30 mg 1X ONCE PO ; Start 09/18/18 at 09:00; Stop at 09:01 Prednisone (Prednisone) 20 mg DAILY PO ; Start 09/19/18 at 09:00; Stop 09/21/18 at 09:01 Prednisone (Prednisone) 10 mg 1X ONCE PO ; Start 09/22/18 at 09:00; Stop at 09:01 Prednisone (Prednisone) 10 mg 1X ONCE PO ; Start 09/24/18 at 09:00; Stop at 09:01 Potassium Chloride (Klor-Con) 40 meq 1X STAT PO Last administered on 09/09/18at 13:54; Start 09/09/18 at 13:39; Stop 09/09/18 at 13:43; Status DC Albumin Human 3,000 ml @ 0 mls/hr 1X ONCE IV Last administered on 09/09/18at 15 :10; Start 09/09/18 at 14:00; Stop 09/09/18 at 14:01; Status DC Heparin Sodium (Porcine) (Heparin Sodium) 5,000 unit 1X ONCE IV Last administered on 09/09/18at 14:00; Start 09/09/18 at 14:00; Stop 09/09/18 at 14:01; Status DC Albumin Human 3,000 ml @ 0 mls/hr 1X ONCE IV ; Start 09/10/18 at 09:00; Stop at 09:01; Status DC Calcium Gluconate 2000 mg/Dextrose 120 ml @ 220 mls/hr 1X ONCE IV ; Start 09/10 at 08:45; Stop 09/10/18 at 09:17; Status DC Active Scripts Active Cipro (Ciprofloxacin Hcl) 500 Mg Tablet 1 Tab PO BID Aspirin Ec (Aspirin) 81 Mg Tablet.dr 81 Mg PO DAILYWBKFT 30 Days Colace (Docusate Sodium) 100 Mg Capsule 100 Mg PO PRN DAILY PRN 30 Days Polyethylene Glycol 3350 17 Gm Powd.pack 17 Gm PO PRN DAILY PRN 14 Days Flomax (Tamsulosin Hcl) 0.4 Mg Cap.er.24h 0.4 Mg PO BID 30 Days Reported Percocet 5-325 Mg Tablet (Oxycodone/Acetaminophen) 1 Each Tablet 1-2 Tab PO Q4-6HRS Exforge 10-320 Mg Tablet (Amlodipine/Valsartan) 1 Each Tablet 1 Tab PO DAILY Crestor (Rosuvastatin Calcium) 10 Mg Tablet 1 Tab PO DAILY Toprol Xl (Metoprolol Succinate) 50 Mg Tab.er.24h 1 Tab PO DAILY Vitals/I & O Vital Sign - Last 24 Hours 09/09/18 09/09/18 09/09/18 09/09/18 11:00 11:07 17:05 19:00 Temp 97.4 97.4 98.7 97.4 97.4 98.7 Pulse 77 67 67 Resp 17 18 18 B/P (MAP) 159/85 (109) 145/91 (109) 141/71 (94) Pulse Ox 95 97 95 90 O2 Delivery Room Air Room Air Room Air 09/09/18 09/09/18 09/09/18 09/10/18 19:30 20:22 23:39 03:00 Temp 97.5 97.5 97.5 97.5 Pulse 65 62 Resp 18 18 B/P (MAP) 132/75 (94) 154/82 (106) Pulse Ox 92 94 O2 Delivery Room Air Room Air Room Air Room Air 09/10/18 09/10/18 09/10/18 09/10/18 07:00 08:00 08:50 08:50 Temp 97.9 97.9 Pulse 68 68 Resp 18 B/P (MAP) 147/79 (101) 147/79 Pulse Ox 98 94 O2 Delivery Room Air Room Air 09/10/18 09/10/18 09/10/18 08:51 08:55 09:51 Pulse 68 68 B/P (MAP) 147/79 147/79 O2 Delivery Room Air Intake and Output 09/09/18 09/09/18 09/10/18 14:59 22:59 06:59 Intake Total 620 ml 250 ml 250 ml Output Total 1700 ml Balance 620 ml -1450 ml 250 ml FELICITY DORANTES MD Sep 10, 2018 10:31
--- NOTE | 2018-09-10 10:58 | PDOC ---
PROGRESS NOTES Assessment T9-10 transverse myelitis. Lumbar spondylosis, status post decompression Plan IV Solu-Medrol 500 mg IV bid x 5 completed 09/08 Plan Prednisone taper Plasma exchange, 2nd one today, aiming for a total of 5, daily. Often we do this every other day, but the patient is tolerating the treatment well, Lab: NMO, outpatient basis. Neurontin 300 mg tid. OT/PT. Subjective He felt stronger yesterday evening, but is weaker this morning. Pain is well controlled, he says. Objective Vital Signs Date Time Temp Pulse Resp B/P (MAP) Pulse Ox O2 Delivery O2 Flow Rate FiO2 09/10/18 09:51 Room Air 09/10/18 08:55 68 147/79 09/10/18 08:50 94 09/10/18 07:00 97.9 18 97.9 Intake and Output 09/10/18 07:00 Intake Total 1120 ml Output Total 1700 ml Balance -580 ml Intake Oral 1120 ml Output Urine Total 1700 ml # Voids 3 # Bowel Movements 1 PHYSICAL EXAM Alert. Oriented to time, place and person. PERRL. EOMI. CN: no focal findings. Muscle tone: normal. Muscle strength: 2/5 legs, 5/5 arms DTR: 2+ arms, 0+ legs Plantar reflex: silent Gait: not examined in bed. Sensory exam: T12 sensory level. No cerebellar signs elicited. Review of Relevant I have reviewed the following items franc (where applicable) has been applied. Labs Laboratory Tests Test 09/08/18 16:45 09/08/18 20:25 09/09/18 03:25 09/09/18 07:06 Glucose (Fingerstick) 164 mg/dL (70-99) 178 mg/dL (70-99) 153 mg/dL (70-99) White Blood Count 6.8 x10^3/uL (4.0-11.0) Red Blood Count 4.61 x10^6/uL (4.30-5.70) Hemoglobin 13.9 g/dL (13.0-17.5) Hematocrit 41.3 % (39.0-53.0) Mean Corpuscular Volume 90 fL (79-100) Mean Corpuscular Hemoglobin 30 pg (25-35) Mean Corpuscular Hemoglobin Concent 34 g/dL (31-37) Red Cell Distribution Width 14.4 % (11.5-14.5) Platelet Count 208 x10^3/uL (140-400) Neutrophils (%) (Auto) 91 % (31-73) Lymphocytes (%) (Auto) 5 % (24-48) Monocytes (%) (Auto) 3 % (0-9) Eosinophils (%) (Auto) 0 % (0-3) Basophils (%) (Auto) 0 % (0-3) Neutrophils # (Auto) 6.2 x10^3uL (1.8-7.7) Lymphocytes # (Auto) 0.4 x10^3/uL (1.0-4.8) Monocytes # (Auto) 0.2 x10^3/uL (0.0-1.1) Eosinophils # (Auto) 0.0 x10^3/uL (0.0-0.7) Basophils # (Auto) 0.0 x10^3/uL (0.0-0.2) Sodium Level 137 mmol/L (136-145) Potassium Level 3.9 mmol/L (3.5-5.1) Chloride Level 104 mmol/L (98-107) Carbon Dioxide Level 25 mmol/L (21-32) Anion Gap 8 (6-14) Blood Urea Nitrogen 35 mg/dL (8-26) Creatinine 0.8 mg/dL (0.7-1.3) Estimated GFR (Cockcroft-Gault) 97.0 Glucose Level 150 mg/dL (70-99) Calcium Level 8.1 mg/dL (8.5-10.1) Magnesium Level 2.7 mg/dL (1.8-2.4) Albumin 2.6 g/dL (3.4-5.0) Test 09/09/18 11:22 09/09/18 17:11 09/09/18 20:44 09/10/18 02:45 Glucose (Fingerstick) 175 mg/dL (70-99) 163 mg/dL (70-99) 161 mg/dL (70-99) White Blood Count 11.2 x10^3/uL (4.0-11.0) Red Blood Count 5.01 x10^6/uL (4.30-5.70) Hemoglobin 14.8 g/dL (13.0-17.5) Hematocrit 45.2 % (39.0-53.0) Mean Corpuscular Volume 90 fL (79-100) Mean Corpuscular Hemoglobin 30 pg (25-35) Mean Corpuscular Hemoglobin Concent 33 g/dL (31-37) Red Cell Distribution Width 14.3 % (11.5-14.5) Platelet Count 189 x10^3/uL (140-400) Neutrophils (%) (Auto) 90 % (31-73) Lymphocytes (%) (Auto) 5 % (24-48) Monocytes (%) (Auto) 5 % (0-9) Eosinophils (%) (Auto) 0 % (0-3) Basophils (%) (Auto) 0 % (0-3) Neutrophils # (Auto) 10.1 x10^3uL (1.8-7.7) Lymphocytes # (Auto) 0.5 x10^3/uL (1.0-4.8) Monocytes # (Auto) 0.6 x10^3/uL (0.0-1.1) Eosinophils # (Auto) 0.0 x10^3/uL (0.0-0.7) Basophils # (Auto) 0.0 x10^3/uL (0.0-0.2) Prothrombin Time 20.3 SEC (11.7-14.0) Prothromb Time International Ratio 1.8 (0.8-1.1) Activated Partial Thromboplast Time 35 SEC (24-38) Fibrinogen 82 mg/dL (200-440) Sodium Level 140 mmol/L (136-145) Potassium Level 4.2 mmol/L (3.5-5.1) Chloride Level 109 mmol/L (98-107) Carbon Dioxide Level 21 mmol/L (21-32) Anion Gap 10 (6-14) Blood Urea Nitrogen 31 mg/dL (8-26) Creatinine 0.8 mg/dL (0.7-1.3) Estimated GFR (Cockcroft-Gault) 97.0 Glucose Level 197 mg/dL (70-99) Calcium Level 7.5 mg/dL (8.5-10.1) Test 09/10/18 07:03 Glucose (Fingerstick) 150 mg/dL (70-99) Laboratory Tests Test 09/09/18 11:22 09/09/18 17:11 09/09/18 20:44 09/10/18 02:45 Glucose (Fingerstick) 175 mg/dL (70-99) 163 mg/dL (70-99) 161 mg/dL (70-99) White Blood Count 11.2 x10^3/uL (4.0-11.0) Red Blood Count 5.01 x10^6/uL (4.30-5.70) Hemoglobin 14.8 g/dL (13.0-17.5) Hematocrit 45.2 % (39.0-53.0) Mean Corpuscular Volume 90 fL (79-100) Mean Corpuscular Hemoglobin 30 pg (25-35) Mean Corpuscular Hemoglobin Concent 33 g/dL (31-37) Red Cell Distribution Width 14.3 % (11.5-14.5) Platelet Count 189 x10^3/uL (140-400) Neutrophils (%) (Auto) 90 % (31-73) Lymphocytes (%) (Auto) 5 % (24-48) Monocytes (%) (Auto) 5 % (0-9) Eosinophils (%) (Auto) 0 % (0-3) Basophils (%) (Auto) 0 % (0-3) Neutrophils # (Auto) 10.1 x10^3uL (1.8-7.7) Lymphocytes # (Auto) 0.5 x10^3/uL (1.0-4.8) Monocytes # (Auto) 0.6 x10^3/uL (0.0-1.1) Eosinophils # (Auto) 0.0 x10^3/uL (0.0-0.7) Basophils # (Auto) 0.0 x10^3/uL (0.0-0.2) Prothrombin Time 20.3 SEC (11.7-14.0) Prothromb Time International Ratio 1.8 (0.8-1.1) Activated Partial Thromboplast Time 35 SEC (24-38) Fibrinogen 82 mg/dL (200-440) Sodium Level 140 mmol/L (136-145) Potassium Level 4.2 mmol/L (3.5-5.1) Chloride Level 109 mmol/L (98-107) Carbon Dioxide Level 21 mmol/L (21-32) Anion Gap 10 (6-14) Blood Urea Nitrogen 31 mg/dL (8-26) Creatinine 0.8 mg/dL (0.7-1.3) Estimated GFR (Cockcroft-Gault) 97.0 Glucose Level 197 mg/dL (70-99) Calcium Level 7.5 mg/dL (8.5-10.1) Test 09/10/18 07:03 Glucose (Fingerstick) 150 mg/dL (70-99) Microbiology 09/05/18 CSF Gram Stain - Final, Complete 09/03/18 Urine Culture - Final, Complete 09/03/18 Urine Culture Result 1 (LUIS M) - Final, Complete Medications Current Medications Gadobutrol (Gadavist) 10 mmol 1X ONCE IV Last administered on 09/03/18at 15:35 ; Start 09/03/18 at 15:15; Stop 09/03/18 at 15:16; Status DC Aspirin (Ecotrin) 81 mg DAILYWBKFT PO Last administered on 09/10/18at 08:54; Start 09/03/18 at 16:30 Docusate Sodium (Colace) 100 mg PRN DAILY PRN PO HARD STOOLS; Start 09/03/18 at 15:30 Tamsulosin HCl (Flomax) 0.4 mg BID PO Last administered on 09/08/18at 09:00; Start 09/03/18 at 21:00; Stop 09/08/18 at 10:46; Status DC Non-Formulary Medication (Amlodipine/ Valsartan (Exforge 10-320 Mg Tablet)) 1 tab DAILY PO ; Start 09/04/18 at 09:00; Status UNV Metoprolol Succinate (Toprol Xl) 50 mg DAILY PO Last administered on 09/10/18at 08:55; Start 09/03/18 at 16:30 Polyethylene Glycol (miraLAX PACKET) 17 gm PRN DAILY PRN PO CONSTIPATION 2ND CHOICE; Start 09/04/18 at 09:00 Atorvastatin Calcium (Lipitor) 40 mg QHS PO Last administered on 09/05/18at 21: 01; Start 09/03/18 at 21:00; Stop 09/06/18 at 15:52; Status DC Oxycodone/ Acetaminophen (Percocet 5/325) 1 tab PRN Q4HRS PRN PO PAIN; Start at 15:30; Stop 09/03/18 at 17:31; Status DC Amlodipine Besylate (Norvasc) 10 mg DAILY PO Last administered on 09/10/18 08: 50; Start 09/03/18 at 16:30 Losartan Potassium (Cozaar) 100 mg DAILY PO Last administered on 09/10/18 08:51 ; Start 09/03/18 at 16:30 Oxycodone/ Acetaminophen (Percocet 5/325) 1 tab PRN Q6HRS PRN PO MODERATE PAIN Last administered on 09/04/18at 11:07; Start 09/03/18 at 17:30; Stop 09/04/18 at 13:35; Status DC Ciprofloxacin (Cipro) 500 mg BID PO Last administered on 09/05/18at 08:27; Start 09/03/18 at 21:00; Stop 09/05/18 at 13:20; Status DC Oxycodone/ Acetaminophen (Percocet 5/325) 2 tab PRN Q6HRS PRN PO SEVERE PAIN; Start 09/03/18 at 17:45 Acetaminophen (Tylenol) 650 mg PRN Q4HRS PRN PO MILD PAIN Last administered on 09/03/18at 21:01; Start 09/03/18 at 18:45 Enoxaparin Sodium (Lovenox 120mg Syringe) 120 mg Q12HR SQ Last administered on 09/04/18at 07:55; Start 09/04/18 at 09:00; Stop 09/04/18 at 15:42; Status DC Methylprednisolone (Medrol) 8 mg BID PO Last administered on 09/04/18at 11:06; Start 09/04/18 at 10:00; Stop 09/04/18 at 13:28; Status DC Methylprednisolone (Medrol) 4 mg BIDPCLD PO ; Start 09/04/18 at 12:30; Stop at 13:28; Status DC Methylprednisolone (Medrol) 4 mg TIDPC PO ; Start 09/05/18 at 08:30; Stop at 08:30; Status DC Methylprednisolone (Medrol) 8 mg QHS PO ; Start 09/05/18 at 21:00; Stop at 21:00; Status DC Methylprednisolone (Medrol) 4 mg QIDAFTMEAL PO ; Start 09/06/18 at 09:00; Stop 09/06/18 at 09:00; Status DC Methylprednisolone (Medrol) 4 mg TID PO ; Start 09/07/18 at 09:00; Stop at 09:00; Status DC Methylprednisolone (Medrol) 4 mg BID PO ; Start 09/08/18 at 09:00; Stop at 09:00; Status DC Methylprednisolone (Medrol) 4 mg DAILY PO ; Start 09/09/18 at 09:00; Stop at 09:00; Status DC Pantoprazole Sodium (Protonix) 40 mg DAILYAC PO Last administered on 09/10/18at 06:33; Start 09/04/18 at 10:00 Bisacodyl (Dulcolax Tab) 10 mg DAILY PO Last administered on 09/09/18at 08:25; Start 09/04/18 at 10:00 Bisacodyl (Dulcolax Supp) 10 mg PRN DAILY PRN CA CONSTIPATION 1ST RECTAL CHOICE Last administered on 09/04/18at 19:38; Start 09/04/18 at 09:30 Docusate Sodium (Enemeez) 283 mg PRN DAILY PRN CA CONSTIPATION 2ND RECTAL CHOICE; Start 09/04/18 at 09:30 Gadobutrol (Gadavist) 10 mmol 1X ONCE IV Last administered on 09/04/18at 13:26 ; Start 09/04/18 at 13:30; Stop 09/04/18 at 13:31; Status DC Methylprednisolone Sodium Succinate (SOLU-Medrol 125MG VIAL) 500 mg BID IV ; Start 09/04/18 at 21:00; Status UNV Methylprednisolone Sodium Succinate 500 mg/Sodium Chloride 100 ml @ 100 mls/hr Q12HR IV Last administered on 09/09/18at 08:30; Start 09/04/18 at 21:00; Stop 09/09/18 at 11:59; Status DC Methylprednisolone Sodium Succinate 500 mg/Sodium Chloride 100 ml @ 100 mls/hr Q12HR IV ; Start 09/04/18 at 21:00; Status Cancel Oxycodone/ Acetaminophen (Percocet 5/325) 1 tab PRN Q4HRS PRN PO MODERATE PAIN Last administered on 09/10/18at 08:50; Start 09/04/18 at 13:45 Hydrocortisone Acetate (Anucort-Hc) 25 mg PRN DAILY PRN CA RECTAL PAIN; Start 09/04/18 at 13:30 Enoxaparin Sodium (Lovenox 120mg Syringe) 110 mg Q12HR SQ Last administered on 09/05/18 21:35; Start 09/04/18 at 21:00; Stop 09/06/18 at 06:49; Status DC Lactobacillus Rhamnosus (Culturelle) 1 cap BID PO Last administered on 08:51; Start 09/04/18 at 21:00 Cefepime HCl (Maxipime) 2 gm Q8HRS IVP Last administered on 09/10/18 06:33; Start 09/05/18 at 14:00 Vancomycin HCl (Vancomycin Oral Solution) 125 mg BID PO Last administered on 08:49; Start 09/05/18 at 21:00 Acyclovir Sodium 750 mg/Dextrose 265 ml @ 265 mls/hr Q8HRS IV Last administered on 09/10/18 06:32; Start 09/05/18 at 14:00 Doxycycline Hyclate (Vibra-Tab) 100 mg BID PO Last administered on 09/10/18 08: 55; Start 09/05/18 at 21:00 Info (Anti-Coagulation Monitoring By Pharmacy) 1 each PRN DAILY PRN MC SEE COMMENTS Last administered on 09/07/18 15:56; Start 09/05/18 at 14:00 Enoxaparin Sodium (Lovenox 120mg Syringe) 120 mg Q12HR SQ ; Start 09/06/18 at 06 :49; Status Cancel Enoxaparin Sodium (Lovenox 120mg Syringe) 120 mg Q12HR SQ Last administered on 09/06/18 08:39; Start 09/06/18 at 09:00; Stop 09/06/18 at 16:44; Status DC Cetirizine HCl (ZyrTEC) 10 mg DAILY PO Last administered on 09/06/18 15:12; Start 09/04/18 at 11:00; Stop 09/06/18 at 15:53; Status DC Insulin Human Lispro (HumaLOG) 0-7 UNITS TIDWMEALS SQ Last administered on 17:51; Start 09/06/18 at 17:00 Dextrose (Dextrose 50%-Water Syringe) 12.5 gm PRN Q15MIN PRN IV SEE COMMENTS; Start 09/06/18 at 12:30 Multivitamins (Thera M Plus) 1 tab DAILY PO Last administered on 09/10/18 08:49 ; Start 09/06/18 at 14:00 Calcium Carbonate/ Glycine (Oscal) 500 mg DAILY PO Last administered on at 08:55; Start 09/06/18 at 14:00 Thiamine Mononitrate (Vitamin B-1) 100 mg DAILY PO Last administered on 08:55; Start 09/06/18 at 14:00 Cetirizine HCl (ZyrTEC) 10 mg DAILY PO Last administered on 09/10/18 08:55; Start 09/06/18 at 15:00 Rivaroxaban (Xarelto) 15 mg BIDWMEALS PO Last administered on 09/06/18at 17:23; Start 09/06/18 at 17:00; Stop 09/07/18 at 08:22; Status DC Enoxaparin Sodium (Lovenox Per Pharmacy Treatment Dosing) 1 each PRN DAILY PRN MC SEE COMMENTS; Start 09/07/18 at 11:15; Stop 09/08/18 at 12:11; Status DC Enoxaparin Sodium (Lovenox 120mg Syringe) 120 mg Q12HR SQ Last administered on 09/08/18at 09:24; Start 09/07/18 at 11:15; Stop 09/08/18 at 12:10; Status DC Gabapentin (Neurontin) 100 mg TID PO Last administered on 09/08/18at 14:13; Start 09/07/18 at 21:00; Stop 09/08/18 at 16:27; Status DC Gabapentin (Neurontin) 300 mg TID PO Last administered on 09/10/18at 08:51; Start 09/08/18 at 21:00 Lidocaine/Sodium Bicarbonate (Buffered Lidocaine 1%) 3 ml STK-MED ONCE .ROUTE ; Start 09/09/18 at 08:52; Stop 09/09/18 at 08:53; Status DC Lidocaine/Sodium Bicarbonate (Buffered Lidocaine 1%) 3 ml 1X ONCE INJ Last administered on 09/09/18at 09:43; Start 09/09/18 at 09:30; Stop 09/09/18 at 09:31; Status DC Enoxaparin Sodium (Lovenox Per Pharmacy Prophylaxis Dosing) 1 each DAILY PRN MC SEE COMMENTS; Start 09/09/18 at 11:15 Enoxaparin Sodium (Lovenox 40mg Syringe) 40 mg DAILY SQ Last administered on 09/10/18at 08:56; Start 09/09/18 at 12:00 Prednisone (Prednisone) 70 mg DAILY PO Last administered on 09/10/18at 08:52; Start 09/09/18 at 12:00; Stop 09/15/18 at 09:01 Prednisone (Prednisone) 50 mg 1X ONCE PO ; Start 09/16/18 at 09:00; Stop at 09:01 Prednisone (Prednisone) 40 mg 1X ONCE PO ; Start 09/17/18 at 09:00; Stop at 09:01 Prednisone (Prednisone) 30 mg 1X ONCE PO ; Start 09/18/18 at 09:00; Stop at 09:01 Prednisone (Prednisone) 20 mg DAILY PO ; Start 09/19/18 at 09:00; Stop 09/21/18 at 09:01 Prednisone (Prednisone) 10 mg 1X ONCE PO ; Start 09/22/18 at 09:00; Stop at 09:01 Prednisone (Prednisone) 10 mg 1X ONCE PO ; Start 09/24/18 at 09:00; Stop at 09:01 Potassium Chloride (Klor-Con) 40 meq 1X STAT PO Last administered on 09/09/18at 13:54; Start 09/09/18 at 13:39; Stop 09/09/18 at 13:43; Status DC Albumin Human 3,000 ml @ 0 mls/hr 1X ONCE IV Last administered on 09/09/18at 15 :10; Start 09/09/18 at 14:00; Stop 09/09/18 at 14:01; Status DC Heparin Sodium (Porcine) (Heparin Sodium) 5,000 unit 1X ONCE IV Last administered on 09/09/18at 14:00; Start 09/09/18 at 14:00; Stop 09/09/18 at 14:01; Status DC Albumin Human 3,000 ml @ 0 mls/hr 1X ONCE IV ; Start 09/10/18 at 09:00; Stop at 09:01; Status DC Calcium Gluconate 2000 mg/Dextrose 120 ml @ 220 mls/hr 1X ONCE IV ; Start 09/10 at 08:45; Stop 09/10/18 at 09:17; Status DC Active Scripts Active Cipro (Ciprofloxacin Hcl) 500 Mg Tablet 1 Tab PO BID Aspirin Ec (Aspirin) 81 Mg Tablet. 81 Mg PO DAILYWBKFT 30 Days Colace (Docusate Sodium) 100 Mg Capsule 100 Mg PO PRN DAILY PRN 30 Days Polyethylene Glycol 3350 17 Gm Powd.pack 17 Gm PO PRN DAILY PRN 14 Days Flomax (Tamsulosin Hcl) 0.4 Mg Cap.er.24h 0.4 Mg PO BID 30 Days Reported Percocet 5-325 Mg Tablet (Oxycodone/Acetaminophen) 1 Each Tablet 1-2 Tab PO Q4-6HRS Exforge 10-320 Mg Tablet (Amlodipine/Valsartan) 1 Each Tablet 1 Tab PO DAILY Crestor (Rosuvastatin Calcium) 10 Mg Tablet 1 Tab PO DAILY Toprol Xl (Metoprolol Succinate) 50 Mg Tab.er.24h 1 Tab PO DAILY Vitals/I & O Vital Sign - Last 24 Hours 09/09/18 09/09/18 09/09/18 09/09/18 11:00 11:07 17:05 19:00 Temp 97.4 97.4 98.7 97.4 97.4 98.7 Pulse 77 67 67 Resp 17 18 18 B/P (MAP) 159/85 (109) 145/91 (109) 141/71 (94) Pulse Ox 95 97 95 90 O2 Delivery Room Air Room Air Room Air 09/09/18 09/09/18 09/09/18 09/10/18 19:30 20:22 23:39 03:00 Temp 97.5 97.5 97.5 97.5 Pulse 65 62 Resp 18 18 B/P (MAP) 132/75 (94) 154/82 (106) Pulse Ox 92 94 O2 Delivery Room Air Room Air Room Air Room Air 09/10/18 09/10/18 09/10/18 09/10/18 07:00 08:00 08:50 08:50 Temp 97.9 97.9 Pulse 68 68 Resp 18 B/P (MAP) 147/79 (101) 147/79 Pulse Ox 98 94 O2 Delivery Room Air Room Air 09/10/18 09/10/18 09/10/18 08:51 08:55 09:51 Pulse 68 68 B/P (MAP) 147/79 147/79 O2 Delivery Room Air Intake and Output 09/09/18 09/09/18 09/10/18 15:00 23:00 07:00 Intake Total 620 ml 250 ml 250 ml Output Total 1700 ml Balance 620 ml -1450 ml 250 ml BIANCA LOPEZ MD Sep 10, 2018 10:58
[2018-09-10 11:05] VITALS: BP 149/78
[2018-09-10 12:18] LABS: ALBUMIN,SERUM 3.2 g/dL (3.6-4.8); CSF IGG INDEX 0.7 (0.0-0.7)
--- NOTE | 2018-09-10 13:05 | PDOC ---
Renal-Progress Notes Subjective Notes Notes FEELING STRONGER AFTER TPE FROM YESTERDAY History of Present Illness Hx of present illness IMPROVED Vitals Vitals Vital Signs Date Time Temp Pulse Resp B/P (MAP) Pulse Ox O2 Delivery O2 Flow Rate FiO2 09/10/18 11:05 97.8 20 18 149/78 (101) 96 Room Air 97.8 Weight Weight [ ] I.O. Intake and Output Intake and Output 09/10/18 07:00 Intake Total 1120 ml Output Total 1700 ml Balance -580 ml Intake Oral 1120 ml Output Urine Total 1700 ml # Voids 3 # Bowel Movements 1 Labs Labs Laboratory Tests Test 09/09/18 17:11 09/09/18 20:44 09/10/18 02:45 09/10/18 07:03 Glucose (Fingerstick) 163 mg/dL (70-99) 161 mg/dL (70-99) 150 mg/dL (70-99) White Blood Count 11.2 x10^3/uL (4.0-11.0) Red Blood Count 5.01 x10^6/uL (4.30-5.70) Hemoglobin 14.8 g/dL (13.0-17.5) Hematocrit 45.2 % (39.0-53.0) Mean Corpuscular Volume 90 fL (79-100) Mean Corpuscular Hemoglobin 30 pg (25-35) Mean Corpuscular Hemoglobin Concent 33 g/dL (31-37) Red Cell Distribution Width 14.3 % (11.5-14.5) Platelet Count 189 x10^3/uL (140-400) Neutrophils (%) (Auto) 90 % (31-73) Lymphocytes (%) (Auto) 5 % (24-48) Monocytes (%) (Auto) 5 % (0-9) Eosinophils (%) (Auto) 0 % (0-3) Basophils (%) (Auto) 0 % (0-3) Neutrophils # (Auto) 10.1 x10^3uL (1.8-7.7) Lymphocytes # (Auto) 0.5 x10^3/uL (1.0-4.8) Monocytes # (Auto) 0.6 x10^3/uL (0.0-1.1) Eosinophils # (Auto) 0.0 x10^3/uL (0.0-0.7) Basophils # (Auto) 0.0 x10^3/uL (0.0-0.2) Prothrombin Time 20.3 SEC (11.7-14.0) Prothromb Time International Ratio 1.8 (0.8-1.1) Activated Partial Thromboplast Time 35 SEC (24-38) Fibrinogen 82 mg/dL (200-440) Sodium Level 140 mmol/L (136-145) Potassium Level 4.2 mmol/L (3.5-5.1) Chloride Level 109 mmol/L (98-107) Carbon Dioxide Level 21 mmol/L (21-32) Anion Gap 10 (6-14) Blood Urea Nitrogen 31 mg/dL (8-26) Creatinine 0.8 mg/dL (0.7-1.3) Estimated GFR (Cockcroft-Gault) 97.0 Glucose Level 197 mg/dL (70-99) Calcium Level 7.5 mg/dL (8.5-10.1) Test 09/10/18 10:56 Glucose (Fingerstick) 165 mg/dL (70-99) Micro Micro Microbiology 09/05/18 CSF Gram Stain - Final, Complete 09/03/18 Urine Culture - Final, Complete 09/03/18 Urine Culture Result 1 (LUIS M) - Final, Complete Review of Systems Constitutional: yes: weakness, alert, oriented Ears/Nose/Throat: Yes: no symptom reported Eyes: Yes: no symptom reported Pulmonary: Yes no symptom reported Cardiovascular: Yes no symptom reported Gastrointestional: Yes: constipation Genitourinary: Yes: retention Musculoskeletal: Yes: muscle stiffness, muscle atrophy Skin: Yes no symptom reported Psychiatric/Neurological: Yes: no symptom reported Endocrine: Yes: no symptom reported Physical Exam General Appearance: no apparent distress Skin: warm Respiratory: bilateral CTA Heart: S1S2, RRR Abdomen: soft, bowel sounds present Genitourinary: bladder flat Extremities: pulses present, no edema Neurology: alert, oriented Musculoskeletal: Other Assessment Assessment IMP TRANSVERSE MYELITIS NEUROGENIC BLADDER HYPOCALCEMIA PLAN TPE TODAY # 2 TODAY EXCHANGE VOLUME WITH [facility] TODAY DUE TO COAGULOPATHY COAG STUDIES IN AM AGAIN CALCIUM REPLACEMENT TODAY WILL FOLLOW TYRA ESPINOZA MD Sep 10, 2018 13:05
[2018-09-10 15:10] VITALS: BP 147/83
[2018-09-10 19:00] VITALS: BP 137/81
[2018-09-10 23:00] VITALS: BP 129/60
[2018-09-11 03:00] VITALS: BP 149/83
[2018-09-11 03:38] LABS: BASO % 0 % (0-3); EOS % 0 % (0-3); HEMATOCRIT 44.9 % (39.0-53.0); HEMOGLOBIN 14.7 g/dL (13.0-17.5); LYMPH # 0.8 x10^3/uL (1.0-4.8); LYMPH % 7 % (24-48); MEAN CORPUSCULAR HEMOGLOBIN 30 pg (25-35); MEAN CORPUSCULAR HGB CONC 33 g/dL (31-37); MEAN CORPUSCULAR VOLUME 91 fL (79-100); MONO # 1.3 x10^3/uL (0.0-1.1); MONO % 11 % (0-9); NEUT # 9.6 x10^3uL (1.8-7.7); NEUT % 82 % (31-73); PLATELET COUNT 182 x10^3/uL (140-400); PROTHROMBIN TIME PATIENT 18.3 SEC (11.7-14.0); RED BLOOD COUNT 4.95 x10^6/uL (4.30-5.70); RED CELL DISTRIBUTION WIDTH 14.6 % (11.5-14.5); WHITE BLOOD COUNT 11.8 x10^3/uL (4.0-11.0)
[2018-09-11 03:59] LABS: ALBUMIN/GLOBULIN RATIO 2.3 (1.0-1.7); CALCIUM 7.4 mg/dL (8.5-10.1); CREATININE 0.8 mg/dL (0.7-1.3); MAGNESIUM 2.3 mg/dL (1.8-2.4); TOTAL BILIRUBIN 0.6 mg/dL (0.2-1.0); TOTAL PROTEIN 4.3 g/dL (6.4-8.2)
[2018-09-11] MEDS: CEFEPIME HCL IV Push 2 GM VIAL. IVP SCH ×3 (05:08→21:20)
[2018-09-11] MEDS: DEXTROSE 5% IV SCH ×3 (05:28→21:14)
[2018-09-11] MEDS: ACYCLOVIR SODIUM IV SCH ×3 (05:28→21:14)
[2018-09-11] MEDS: PANTOPRAZOLE 40 MG TABLET.DR. PO SCH (06:10)
[2018-09-11 07:00] VITALS: BP 157/92
[2018-09-11] MEDS: INSULIN LISPRO 300 UNITS/3 ML INSULN.PEN. SQ SCH ×3 (08:00→17:00)
[2018-09-11] MEDS: MULTIVITAMIN with MINERAL TABLET. PO SCH (08:17)
[2018-09-11] MEDS: LACTOBACILLUS RHAMNOSUS GG 1 CAPSULE. PO SCH ×2 (08:17→21:13)
[2018-09-11] MEDS: VANCOMYCIN 125 MG/2.5 ML ORAL SOLUTION. PO SCH ×2 (08:17→21:13)
[2018-09-11] MEDS: THIAMINE 100 MG TABLET. PO SCH (08:17)
[2018-09-11] MEDS: predniSONE 20 MG TABLET PO SCH (08:18)
[2018-09-11] MEDS: ASPIRIN ENTERIC COATED 81 MG TABLET.DR. PO SCH (08:18)
[2018-09-11] MEDS: CETIRIZINE HCL 10 MG TABLET. PO SCH (08:18)
[2018-09-11] MEDS: GABAPENTIN 100 MG CAPSULE. PO SCH ×3 (08:18→21:13)
[2018-09-11] MEDS: DOXYCYCLINE HYCLATE 100 MG TABLET PO SCH ×2 (08:18→21:13)
[2018-09-11] MEDS: CALCIUM CARBONATE 500 MG TABLET PO SCH (08:18)
[2018-09-11] MEDS: ENOXAPARIN 40 MG/0.4 ML SYRINGE. SQ SCH (08:19)
[2018-09-11] MEDS: oxyCODONE/APAP 5/325 1 TAB TABLET PO PRN ×3 (08:19→21:14)
[2018-09-11] MEDS: METOPROLOL SUCC 24HR ER 50 MG TAB.ER.24H. PO SCH (08:20)
[2018-09-11] MEDS: amLODIPine BESYLATE 10 MG TABLET PO SCH (08:20)
[2018-09-11] MEDS: LOSARTAN POTASSIUM 50 MG TABLET. PO SCH (08:20)
[2018-09-11] MEDS: BISACODYL 5 MG TABLET.DR. PO SCH (08:23)
--- NOTE | 2018-09-11 09:17 | NUR ---
SW following. Discussed with RN, no changes with pt. SW met with pt, pt agreeable to paying the $350 to go to [facility]. SW to double check with [facility] if they are aware pt has three insurances. RN advised pt can discharge after the last plasma exchange on Sunday, if he is doing okay. SW will continue to follow.
--- NOTE | 2018-09-11 10:19 | PDOC ---
PROGRESS NOTES Subjective Subjective He feels that he can move his lower extremities better. 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 Physical and occupational therapy working with him. Plan Plan of Care To continue present rehab efforts as tolerated. Comment Review of Relevant I have reviewed the following items franc (where applicable) has been applied. Labs Laboratory Tests Test 09/09/18 11:22 09/09/18 17:11 09/09/18 20:44 09/10/18 02:45 Glucose (Fingerstick) 175 mg/dL (70-99) 163 mg/dL (70-99) 161 mg/dL (70-99) White Blood Count 11.2 x10^3/uL (4.0-11.0) Red Blood Count 5.01 x10^6/uL (4.30-5.70) Hemoglobin 14.8 g/dL (13.0-17.5) Hematocrit 45.2 % (39.0-53.0) Mean Corpuscular Volume 90 fL (79-100) Mean Corpuscular Hemoglobin 30 pg (25-35) Mean Corpuscular Hemoglobin Concent 33 g/dL (31-37) Red Cell Distribution Width 14.3 % (11.5-14.5) Platelet Count 189 x10^3/uL (140-400) Neutrophils (%) (Auto) 90 % (31-73) Lymphocytes (%) (Auto) 5 % (24-48) Monocytes (%) (Auto) 5 % (0-9) Eosinophils (%) (Auto) 0 % (0-3) Basophils (%) (Auto) 0 % (0-3) Neutrophils # (Auto) 10.1 x10^3uL (1.8-7.7) Lymphocytes # (Auto) 0.5 x10^3/uL (1.0-4.8) Monocytes # (Auto) 0.6 x10^3/uL (0.0-1.1) Eosinophils # (Auto) 0.0 x10^3/uL (0.0-0.7) Basophils # (Auto) 0.0 x10^3/uL (0.0-0.2) Prothrombin Time 20.3 SEC (11.7-14.0) Prothromb Time International Ratio 1.8 (0.8-1.1) Activated Partial Thromboplast Time 35 SEC (24-38) Fibrinogen 82 mg/dL (200-440) Sodium Level 140 mmol/L (136-145) Potassium Level 4.2 mmol/L (3.5-5.1) Chloride Level 109 mmol/L (98-107) Carbon Dioxide Level 21 mmol/L (21-32) Anion Gap 10 (6-14) Blood Urea Nitrogen 31 mg/dL (8-26) Creatinine 0.8 mg/dL (0.7-1.3) Estimated GFR (Cockcroft-Gault) 97.0 Glucose Level 197 mg/dL (70-99) Calcium Level 7.5 mg/dL (8.5-10.1) Test 09/10/18 07:03 09/10/18 10:56 09/10/18 16:45 09/10/18 21:03 Glucose (Fingerstick) 150 mg/dL (70-99) 165 mg/dL (70-99) 195 mg/dL (70-99) 165 mg/dL (70-99) Test 09/11/18 02:35 09/11/18 07:38 White Blood Count 11.8 x10^3/uL (4.0-11.0) Red Blood Count 4.95 x10^6/uL (4.30-5.70) Hemoglobin 14.7 g/dL (13.0-17.5) Hematocrit 44.9 % (39.0-53.0) Mean Corpuscular Volume 91 fL (79-100) Mean Corpuscular Hemoglobin 30 pg (25-35) Mean Corpuscular Hemoglobin Concent 33 g/dL (31-37) Red Cell Distribution Width 14.6 % (11.5-14.5) Platelet Count 182 x10^3/uL (140-400) Neutrophils (%) (Auto) 82 % (31-73) Lymphocytes (%) (Auto) 7 % (24-48) Monocytes (%) (Auto) 11 % (0-9) Eosinophils (%) (Auto) 0 % (0-3) Basophils (%) (Auto) 0 % (0-3) Neutrophils # (Auto) 9.6 x10^3uL (1.8-7.7) Lymphocytes # (Auto) 0.8 x10^3/uL (1.0-4.8) Monocytes # (Auto) 1.3 x10^3/uL (0.0-1.1) Eosinophils # (Auto) 0.0 x10^3/uL (0.0-0.7) Basophils # (Auto) 0.0 x10^3/uL (0.0-0.2) Prothrombin Time 18.3 SEC (11.7-14.0) Prothromb Time International Ratio 1.6 (0.8-1.1) Activated Partial Thromboplast Time 29 SEC (24-38) Sodium Level 142 mmol/L (136-145) Potassium Level 4.0 mmol/L (3.5-5.1) Chloride Level 110 mmol/L (98-107) Carbon Dioxide Level 21 mmol/L (21-32) Anion Gap 11 (6-14) Blood Urea Nitrogen 26 mg/dL (8-26) Creatinine 0.8 mg/dL (0.7-1.3) Estimated GFR (Cockcroft-Gault) 97.0 BUN/Creatinine Ratio 33 (6-20) Glucose Level 127 mg/dL (70-99) Calcium Level 7.4 mg/dL (8.5-10.1) Magnesium Level 2.3 mg/dL (1.8-2.4) Total Bilirubin 0.6 mg/dL (0.2-1.0) Aspartate Amino Transf (AST/SGOT) 17 U/L (15-37) Alanine Aminotransferase (ALT/SGPT) 33 U/L (16-63) Alkaline Phosphatase 35 U/L (46-116) Total Protein 4.3 g/dL (6.4-8.2) Albumin 3.0 g/dL (3.4-5.0) Albumin/Globulin Ratio 2.3 (1.0-1.7) Glucose (Fingerstick) 86 mg/dL (70-99) Laboratory Tests Test 09/10/18 10:56 09/10/18 16:45 09/10/18 21:03 09/11/18 02:35 Glucose (Fingerstick) 165 mg/dL (70-99) 195 mg/dL (70-99) 165 mg/dL (70-99) White Blood Count 11.8 x10^3/uL (4.0-11.0) Red Blood Count 4.95 x10^6/uL (4.30-5.70) Hemoglobin 14.7 g/dL (13.0-17.5) Hematocrit 44.9 % (39.0-53.0) Mean Corpuscular Volume 91 fL (79-100) Mean Corpuscular Hemoglobin 30 pg (25-35) Mean Corpuscular Hemoglobin Concent 33 g/dL (31-37) Red Cell Distribution Width 14.6 % (11.5-14.5) Platelet Count 182 x10^3/uL (140-400) Neutrophils (%) (Auto) 82 % (31-73) Lymphocytes (%) (Auto) 7 % (24-48) Monocytes (%) (Auto) 11 % (0-9) Eosinophils (%) (Auto) 0 % (0-3) Basophils (%) (Auto) 0 % (0-3) Neutrophils # (Auto) 9.6 x10^3uL (1.8-7.7) Lymphocytes # (Auto) 0.8 x10^3/uL (1.0-4.8) Monocytes # (Auto) 1.3 x10^3/uL (0.0-1.1) Eosinophils # (Auto) 0.0 x10^3/uL (0.0-0.7) Basophils # (Auto) 0.0 x10^3/uL (0.0-0.2) Prothrombin Time 18.3 SEC (11.7-14.0) Prothromb Time International Ratio 1.6 (0.8-1.1) Activated Partial Thromboplast Time 29 SEC (24-38) Sodium Level 142 mmol/L (136-145) Potassium Level 4.0 mmol/L (3.5-5.1) Chloride Level 110 mmol/L (98-107) Carbon Dioxide Level 21 mmol/L (21-32) Anion Gap 11 (6-14) Blood Urea Nitrogen 26 mg/dL (8-26) Creatinine 0.8 mg/dL (0.7-1.3) Estimated GFR (Cockcroft-Gault) 97.0 BUN/Creatinine Ratio 33 (6-20) Glucose Level 127 mg/dL (70-99) Calcium Level 7.4 mg/dL (8.5-10.1) Magnesium Level 2.3 mg/dL (1.8-2.4) Total Bilirubin 0.6 mg/dL (0.2-1.0) Aspartate Amino Transf (AST/SGOT) 17 U/L (15-37) Alanine Aminotransferase (ALT/SGPT) 33 U/L (16-63) Alkaline Phosphatase 35 U/L (46-116) Total Protein 4.3 g/dL (6.4-8.2) Albumin 3.0 g/dL (3.4-5.0) Albumin/Globulin Ratio 2.3 (1.0-1.7) Test 09/11/18 07:38 Glucose (Fingerstick) 86 mg/dL (70-99) Microbiology 09/05/18 CSF Gram Stain - Final, Complete 09/03/18 Urine Culture - Final, Complete 09/03/18 Urine Culture Result 1 (LUIS M) - Final, Complete Medications Current Medications Gadobutrol (Gadavist) 10 mmol 1X ONCE IV Last administered on 09/03/18at 15:35 ; Start 09/03/18 at 15:15; Stop 09/03/18 at 15:16; Status DC Aspirin (Ecotrin) 81 mg DAILYWBKFT PO Last administered on 09/11/18at 08:18; Start 09/03/18 at 16:30 Docusate Sodium (Colace) 100 mg PRN DAILY PRN PO HARD STOOLS; Start 09/03/18 at 15:30 Tamsulosin HCl (Flomax) 0.4 mg BID PO Last administered on 09/08/18at 09:00; Start 09/03/18 at 21:00; Stop 09/08/18 at 10:46; Status DC Non-Formulary Medication (Amlodipine/ Valsartan (Exforge 10-320 Mg Tablet)) 1 tab DAILY PO ; Start 09/04/18 at 09:00; Status UNV Metoprolol Succinate (Toprol Xl) 50 mg DAILY PO Last administered on 09/11/18 08:20; Start 09/03/18 at 16:30 Polyethylene Glycol (miraLAX PACKET) 17 gm PRN DAILY PRN PO CONSTIPATION 2ND CHOICE; Start 09/04/18 at 09:00 Atorvastatin Calcium (Lipitor) 40 mg QHS PO Last administered on 09/05/18 21: 01; Start 09/03/18 at 21:00; Stop 09/06/18 at 15:52; Status DC Oxycodone/ Acetaminophen (Percocet 5/325) 1 tab PRN Q4HRS PRN PO PAIN; Start at 15:30; Stop 09/03/18 at 17:31; Status DC Amlodipine Besylate (Norvasc) 10 mg DAILY PO Last administered on 09/11/18 08: 20; Start 09/03/18 at 16:30 Losartan Potassium (Cozaar) 100 mg DAILY PO Last administered on 09/11/18 08:20 ; Start 09/03/18 at 16:30 Oxycodone/ Acetaminophen (Percocet 5/325) 1 tab PRN Q6HRS PRN PO MODERATE PAIN Last administered on 09/04/18 11:07; Start 09/03/18 at 17:30; Stop 09/04/18 at 13:35; Status DC Ciprofloxacin (Cipro) 500 mg BID PO Last administered on 09/05/18 08:27; Start 09/03/18 at 21:00; Stop 09/05/18 at 13:20; Status DC Oxycodone/ Acetaminophen (Percocet 5/325) 2 tab PRN Q6HRS PRN PO SEVERE PAIN; Start 09/03/18 at 17:45 Acetaminophen (Tylenol) 650 mg PRN Q4HRS PRN PO MILD PAIN Last administered on 09/03/18 21:01; Start 09/03/18 at 18:45 Enoxaparin Sodium (Lovenox 120mg Syringe) 120 mg Q12HR SQ Last administered on 09/04/18 07:55; Start 09/04/18 at 09:00; Stop 09/04/18 at 15:42; Status DC Methylprednisolone (Medrol) 8 mg BID PO Last administered on 3/27/19at 11:06; Start 09/04/18 at 10:00; Stop 09/04/18 at 13:28; Status DC Methylprednisolone (Medrol) 4 mg BIDPCLD PO ; Start 09/04/18 at 12:30; Stop at 13:28; Status DC Methylprednisolone (Medrol) 4 mg TIDPC PO ; Start 09/05/18 at 08:30; Stop at 08:30; Status DC Methylprednisolone (Medrol) 8 mg QHS PO ; Start 09/05/18 at 21:00; Stop at 21:00; Status DC Methylprednisolone (Medrol) 4 mg QIDAFTMEAL PO ; Start 09/06/18 at 09:00; Stop 09/06/18 at 09:00; Status DC Methylprednisolone (Medrol) 4 mg TID PO ; Start 09/07/18 at 09:00; Stop at 09:00; Status DC Methylprednisolone (Medrol) 4 mg BID PO ; Start 09/08/18 at 09:00; Stop at 09:00; Status DC Methylprednisolone (Medrol) 4 mg DAILY PO ; Start 09/09/18 at 09:00; Stop at 09:00; Status DC Pantoprazole Sodium (Protonix) 40 mg DAILYAC PO Last administered on 09/11/18at 06:10; Start 09/04/18 at 10:00 Bisacodyl (Dulcolax Tab) 10 mg DAILY PO Last administered on 09/09/18at 08:25; Start 09/04/18 at 10:00 Bisacodyl (Dulcolax Supp) 10 mg PRN DAILY PRN NC CONSTIPATION 1ST RECTAL CHOICE Last administered on 09/04/18at 19:38; Start 09/04/18 at 09:30 Docusate Sodium (Enemeez) 283 mg PRN DAILY PRN NC CONSTIPATION 2ND RECTAL CHOICE; Start 09/04/18 at 09:30 Gadobutrol (Gadavist) 10 mmol 1X ONCE IV Last administered on 09/04/18at 13:26 ; Start 09/04/18 at 13:30; Stop 09/04/18 at 13:31; Status DC Methylprednisolone Sodium Succinate (SOLU-Medrol 125MG VIAL) 500 mg BID IV ; Start 09/04/18 at 21:00; Status UNV Methylprednisolone Sodium Succinate 500 mg/Sodium Chloride 100 ml @ 100 mls/hr Q12HR IV Last administered on 09/09/18 08:30; Start 09/04/18 at 21:00; Stop 09/09/18 at 11:59; Status DC Methylprednisolone Sodium Succinate 500 mg/Sodium Chloride 100 ml @ 100 mls/hr Q12HR IV ; Start 09/04/18 at 21:00; Status Cancel Oxycodone/ Acetaminophen (Percocet 5/325) 1 tab PRN Q4HRS PRN PO MODERATE PAIN Last administered on 09/11/18 08:19; Start 09/04/18 at 13:45 Hydrocortisone Acetate (Anucort-Hc) 25 mg PRN DAILY PRN NC RECTAL PAIN; Start 09/04/18 at 13:30 Enoxaparin Sodium (Lovenox 120mg Syringe) 110 mg Q12HR SQ Last administered on 09/05/18at 21:35; Start 09/04/18 at 21:00; Stop 09/06/18 at 06:49; Status DC Lactobacillus Rhamnosus (Culturelle) 1 cap BID PO Last administered on 08:17; Start 09/04/18 at 21:00 Cefepime HCl (Maxipime) 2 gm Q8HRS IVP Last administered on 09/11/18 05:08; Start 09/05/18 at 14:00 Vancomycin HCl (Vancomycin Oral Solution) 125 mg BID PO Last administered on 08:17; Start 09/05/18 at 21:00 Acyclovir Sodium 750 mg/Dextrose 265 ml @ 265 mls/hr Q8HRS IV Last administered on 09/11/18 05:28; Start 09/05/18 at 14:00 Doxycycline Hyclate (Vibra-Tab) 100 mg BID PO Last administered on 09/11/18 08: 18; Start 09/05/18 at 21:00 Info (Anti-Coagulation Monitoring By Pharmacy) 1 each PRN DAILY PRN MC SEE COMMENTS Last administered on 09/07/18 15:56; Start 09/05/18 at 14:00; Stop 09/10/18 at 15:10; Status DC Enoxaparin Sodium (Lovenox 120mg Syringe) 120 mg Q12HR SQ ; Start 09/06/18 at 06 :49; Status Cancel Enoxaparin Sodium (Lovenox 120mg Syringe) 120 mg Q12HR SQ Last administered on 09/06/18at 08:39; Start 09/06/18 at 09:00; Stop 09/06/18 at 16:44; Status DC Cetirizine HCl (ZyrTEC) 10 mg DAILY PO Last administered on 09/06/18at 15:12; Start 09/04/18 at 11:00; Stop 09/06/18 at 15:53; Status DC Insulin Human Lispro (HumaLOG) 0-7 UNITS TIDWMEALS SQ Last administered on 17:00; Start 09/06/18 at 17:00 Dextrose (Dextrose 50%-Water Syringe) 12.5 gm PRN Q15MIN PRN IV SEE COMMENTS; Start 09/06/18 at 12:30 Multivitamins (Thera M Plus) 1 tab DAILY PO Last administered on 09/11/18 08:17 ; Start 09/06/18 at 14:00 Calcium Carbonate/ Glycine (Oscal) 500 mg DAILY PO Last administered on 08:18; Start 09/06/18 at 14:00 Thiamine Mononitrate (Vitamin B-1) 100 mg DAILY PO Last administered on 08:17; Start 09/06/18 at 14:00 Cetirizine HCl (ZyrTEC) 10 mg DAILY PO Last administered on 09/11/18 08:18; Start 09/06/18 at 15:00 Rivaroxaban (Xarelto) 15 mg BIDWMEALS PO Last administered on 09/06/18at 17:23; Start 09/06/18 at 17:00; Stop 09/07/18 at 08:22; Status DC Enoxaparin Sodium (Lovenox Per Pharmacy Treatment Dosing) 1 each PRN DAILY PRN MC SEE COMMENTS; Start 09/07/18 at 11:15; Stop 09/08/18 at 12:11; Status DC Enoxaparin Sodium (Lovenox 120mg Syringe) 120 mg Q12HR SQ Last administered on 09/08/18at 09:24; Start 09/07/18 at 11:15; Stop 09/08/18 at 12:10; Status DC Gabapentin (Neurontin) 100 mg TID PO Last administered on 09/08/18at 14:13; Start 09/07/18 at 21:00; Stop 09/08/18 at 16:27; Status DC Gabapentin (Neurontin) 300 mg TID PO Last administered on 09/11/18at 08:18; Start 09/08/18 at 21:00 Lidocaine/Sodium Bicarbonate (Buffered Lidocaine 1%) 3 ml STK-MED ONCE .ROUTE ; Start 09/09/18 at 08:52; Stop 09/09/18 at 08:53; Status DC Lidocaine/Sodium Bicarbonate (Buffered Lidocaine 1%) 3 ml 1X ONCE INJ Last administered on 09/09/18at 09:43; Start 09/09/18 at 09:30; Stop 09/09/18 at 09:31; Status DC Enoxaparin Sodium (Lovenox Per Pharmacy Prophylaxis Dosing) 1 each DAILY PRN MC SEE COMMENTS; Start 09/09/18 at 11:15 Enoxaparin Sodium (Lovenox 40mg Syringe) 40 mg DAILY SQ Last administered on 09/11/18at 08:19; Start 09/09/18 at 12:00 Prednisone (Prednisone) 70 mg DAILY PO Last administered on 09/11/18at 08:18; Start 09/09/18 at 12:00; Stop 09/15/18 at 09:01 Prednisone (Prednisone) 50 mg 1X ONCE PO ; Start 09/16/18 at 09:00; Stop at 09:01 Prednisone (Prednisone) 40 mg 1X ONCE PO ; Start 09/17/18 at 09:00; Stop at 09:01 Prednisone (Prednisone) 30 mg 1X ONCE PO ; Start 09/18/18 at 09:00; Stop at 09:01 Prednisone (Prednisone) 20 mg DAILY PO ; Start 09/19/18 at 09:00; Stop 09/21/18 at 09:01 Prednisone (Prednisone) 10 mg 1X ONCE PO ; Start 09/22/18 at 09:00; Stop at 09:01 Prednisone (Prednisone) 10 mg 1X ONCE PO ; Start 09/24/18 at 09:00; Stop at 09:01 Potassium Chloride (Klor-Con) 40 meq 1X STAT PO Last administered on 09/09/18at 13:54; Start 09/09/18 at 13:39; Stop 09/09/18 at 13:43; Status DC Albumin Human 3,000 ml @ 0 mls/hr 1X ONCE IV Last administered on 09/09/18at 15 :10; Start 09/09/18 at 14:00; Stop 09/09/18 at 14:01; Status DC Heparin Sodium (Porcine) (Heparin Sodium) 5,000 unit 1X ONCE IV Last administered on 09/09/18at 14:00; Start 09/09/18 at 14:00; Stop 09/09/18 at 14:01; Status DC Albumin Human 3,000 ml @ 0 mls/hr 1X ONCE IV Last administered on 09/10/18at 13 :03; Start 09/10/18 at 09:00; Stop 09/10/18 at 09:01; Status DC Calcium Gluconate 2000 mg/Dextrose 120 ml @ 220 mls/hr 1X ONCE IV Last administered on 09/10/18at 13:04; Start 09/10/18 at 08:45; Stop 09/10/18 at 09:17; Status DC Active Scripts Active Cipro (Ciprofloxacin Hcl) 500 Mg Tablet 1 Tab PO BID Aspirin Ec (Aspirin) 81 Mg Tablet.dr 81 Mg PO DAILYWBKFT 30 Days Colace (Docusate Sodium) 100 Mg Capsule 100 Mg PO PRN DAILY PRN 30 Days Polyethylene Glycol 3350 17 Gm Powd.pack 17 Gm PO PRN DAILY PRN 14 Days Flomax (Tamsulosin Hcl) 0.4 Mg Cap.er.24h 0.4 Mg PO BID 30 Days Reported Percocet 5-325 Mg Tablet (Oxycodone/Acetaminophen) 1 Each Tablet 1-2 Tab PO Q4-6HRS Exforge 10-320 Mg Tablet (Amlodipine/Valsartan) 1 Each Tablet 1 Tab PO DAILY Crestor (Rosuvastatin Calcium) 10 Mg Tablet 1 Tab PO DAILY Toprol Xl (Metoprolol Succinate) 50 Mg Tab.er.24h 1 Tab PO DAILY Vitals/I & O Vital Sign - Last 24 Hours 09/10/18 09/10/18 09/10/18 09/10/18 11:05 15:10 16:58 19:00 Temp 97.8 97.6 97.7 97.8 97.6 97.7 Pulse 72 74 77 Resp 18 20 18 B/P (MAP) 149/78 (101) 147/83 (104) 137/81 (99) Pulse Ox 96 96 95 O2 Delivery Room Air Room Air Room Air Room Air 09/10/18 09/10/18 09/11/18 09/11/18 20:10 23:00 03:00 07:00 Temp 97.8 97.5 97.5 97.8 97.5 97.5 Pulse 68 71 68 Resp 18 18 18 B/P (MAP) 129/60 (83) 149/83 (105) 157/92 (113) Pulse Ox 96 96 96 O2 Delivery Room Air Room Air Room Air Room Air 09/11/18 09/11/18 09/11/18 09/11/18 07:21 08:19 08:20 08:20 Pulse 86 86 B/P (MAP) 124/64 124/64 Pulse Ox 96 O2 Delivery Room Air Room Air 09/11/18 09/11/18 08:20 09:11 Pulse 86 B/P (MAP) 124/64 O2 Delivery Room Air Intake and Output 09/10/18 09/10/18 09/11/18 15:00 23:00 07:00 Intake Total 320 ml 360 ml 1800 ml Output Total 2250 ml 750 ml Balance 320 ml -1890 ml 1050 ml LAMONT BASHIR MD Sep 11, 2018 10:19
[2018-09-11 11:00] VITALS: BP 156/97
--- NOTE | 2018-09-11 12:04 | PDOC ---
PROGRESS NOTES Assessment 9-10 transverse myelitis, stronger after 2nd plasma exchange yesterday. Lumbar spondylosis, status post decompression Plan Prednisone taper Plasma exchange, 2nd one today, aiming for a total of 5, daily. Often we do this every other day, but the patient is tolerating the treatment well, Lab: NMO, outpatient basis. Neurontin 300 mg tid. OT/PT. Thus, he should finish the 5th plasma exchange on 09/13, can go to inpatient rehab later that day. Follow-up with Dr. Carrasquillo in 2-3 weeks. Objective Vital Signs Date Time Temp Pulse Resp B/P (MAP) Pulse Ox O2 Delivery O2 Flow Rate FiO2 09/11/18 09:11 Room Air 09/11/18 08:20 86 124/64 09/11/18 08:19 96 09/11/18 07:00 97.5 18 97.5 Intake and Output 09/11/18 07:00 Intake Total 2480 ml Output Total 3000 ml Balance -520 ml Intake Oral 2480 ml Output Urine Total 3000 ml # Bowel Movements 1 PHYSICAL EXAM Alert. Oriented to time, place and person. PERRL. EOMI. CN: no focal findings. Muscle tone: normal. Muscle strength: 2/5 legs, 5/5 arms DTR: 2+ arms, 0+ legs Plantar reflex: silent Gait: not examined in bed. Sensory exam: T12 sensory level. No cerebellar signs elicited. Review of Relevant I have reviewed the following items franc (where applicable) has been applied. Labs Laboratory Tests Test 09/09/18 17:11 09/09/18 20:44 09/10/18 02:45 09/10/18 07:03 Glucose (Fingerstick) 163 mg/dL (70-99) 161 mg/dL (70-99) 150 mg/dL (70-99) White Blood Count 11.2 x10^3/uL (4.0-11.0) Red Blood Count 5.01 x10^6/uL (4.30-5.70) Hemoglobin 14.8 g/dL (13.0-17.5) Hematocrit 45.2 % (39.0-53.0) Mean Corpuscular Volume 90 fL (79-100) Mean Corpuscular Hemoglobin 30 pg (25-35) Mean Corpuscular Hemoglobin Concent 33 g/dL (31-37) Red Cell Distribution Width 14.3 % (11.5-14.5) Platelet Count 189 x10^3/uL (140-400) Neutrophils (%) (Auto) 90 % (31-73) Lymphocytes (%) (Auto) 5 % (24-48) Monocytes (%) (Auto) 5 % (0-9) Eosinophils (%) (Auto) 0 % (0-3) Basophils (%) (Auto) 0 % (0-3) Neutrophils # (Auto) 10.1 x10^3uL (1.8-7.7) Lymphocytes # (Auto) 0.5 x10^3/uL (1.0-4.8) Monocytes # (Auto) 0.6 x10^3/uL (0.0-1.1) Eosinophils # (Auto) 0.0 x10^3/uL (0.0-0.7) Basophils # (Auto) 0.0 x10^3/uL (0.0-0.2) Prothrombin Time 20.3 SEC (11.7-14.0) Prothromb Time International Ratio 1.8 (0.8-1.1) Activated Partial Thromboplast Time 35 SEC (24-38) Fibrinogen 82 mg/dL (200-440) Sodium Level 140 mmol/L (136-145) Potassium Level 4.2 mmol/L (3.5-5.1) Chloride Level 109 mmol/L (98-107) Carbon Dioxide Level 21 mmol/L (21-32) Anion Gap 10 (6-14) Blood Urea Nitrogen 31 mg/dL (8-26) Creatinine 0.8 mg/dL (0.7-1.3) Estimated GFR (Cockcroft-Gault) 97.0 Glucose Level 197 mg/dL (70-99) Calcium Level 7.5 mg/dL (8.5-10.1) Test 09/10/18 10:56 09/10/18 16:45 09/10/18 21:03 09/11/18 02:35 Glucose (Fingerstick) 165 mg/dL (70-99) 195 mg/dL (70-99) 165 mg/dL (70-99) White Blood Count 11.8 x10^3/uL (4.0-11.0) Red Blood Count 4.95 x10^6/uL (4.30-5.70) Hemoglobin 14.7 g/dL (13.0-17.5) Hematocrit 44.9 % (39.0-53.0) Mean Corpuscular Volume 91 fL (79-100) Mean Corpuscular Hemoglobin 30 pg (25-35) Mean Corpuscular Hemoglobin Concent 33 g/dL (31-37) Red Cell Distribution Width 14.6 % (11.5-14.5) Platelet Count 182 x10^3/uL (140-400) Neutrophils (%) (Auto) 82 % (31-73) Lymphocytes (%) (Auto) 7 % (24-48) Monocytes (%) (Auto) 11 % (0-9) Eosinophils (%) (Auto) 0 % (0-3) Basophils (%) (Auto) 0 % (0-3) Neutrophils # (Auto) 9.6 x10^3uL (1.8-7.7) Lymphocytes # (Auto) 0.8 x10^3/uL (1.0-4.8) Monocytes # (Auto) 1.3 x10^3/uL (0.0-1.1) Eosinophils # (Auto) 0.0 x10^3/uL (0.0-0.7) Basophils # (Auto) 0.0 x10^3/uL (0.0-0.2) Prothrombin Time 18.3 SEC (11.7-14.0) Prothromb Time International Ratio 1.6 (0.8-1.1) Activated Partial Thromboplast Time 29 SEC (24-38) Sodium Level 142 mmol/L (136-145) Potassium Level 4.0 mmol/L (3.5-5.1) Chloride Level 110 mmol/L (98-107) Carbon Dioxide Level 21 mmol/L (21-32) Anion Gap 11 (6-14) Blood Urea Nitrogen 26 mg/dL (8-26) Creatinine 0.8 mg/dL (0.7-1.3) Estimated GFR (Cockcroft-Gault) 97.0 BUN/Creatinine Ratio 33 (6-20) Glucose Level 127 mg/dL (70-99) Calcium Level 7.4 mg/dL (8.5-10.1) Magnesium Level 2.3 mg/dL (1.8-2.4) Total Bilirubin 0.6 mg/dL (0.2-1.0) Aspartate Amino Transf (AST/SGOT) 17 U/L (15-37) Alanine Aminotransferase (ALT/SGPT) 33 U/L (16-63) Alkaline Phosphatase 35 U/L (46-116) Total Protein 4.3 g/dL (6.4-8.2) Albumin 3.0 g/dL (3.4-5.0) Albumin/Globulin Ratio 2.3 (1.0-1.7) Test 09/11/18 07:38 09/11/18 11:12 09/11/18 11:15 Glucose (Fingerstick) 86 mg/dL (70-99) 104 mg/dL (70-99) Fibrinogen 125 mg/dL (200-440) Laboratory Tests Test 09/10/18 16:45 09/10/18 21:03 09/11/18 02:35 09/11/18 07:38 Glucose (Fingerstick) 195 mg/dL (70-99) 165 mg/dL (70-99) 86 mg/dL (70-99) White Blood Count 11.8 x10^3/uL (4.0-11.0) Red Blood Count 4.95 x10^6/uL (4.30-5.70) Hemoglobin 14.7 g/dL (13.0-17.5) Hematocrit 44.9 % (39.0-53.0) Mean Corpuscular Volume 91 fL (79-100) Mean Corpuscular Hemoglobin 30 pg (25-35) Mean Corpuscular Hemoglobin Concent 33 g/dL (31-37) Red Cell Distribution Width 14.6 % (11.5-14.5) Platelet Count 182 x10^3/uL (140-400) Neutrophils (%) (Auto) 82 % (31-73) Lymphocytes (%) (Auto) 7 % (24-48) Monocytes (%) (Auto) 11 % (0-9) Eosinophils (%) (Auto) 0 % (0-3) Basophils (%) (Auto) 0 % (0-3) Neutrophils # (Auto) 9.6 x10^3uL (1.8-7.7) Lymphocytes # (Auto) 0.8 x10^3/uL (1.0-4.8) Monocytes # (Auto) 1.3 x10^3/uL (0.0-1.1) Eosinophils # (Auto) 0.0 x10^3/uL (0.0-0.7) Basophils # (Auto) 0.0 x10^3/uL (0.0-0.2) Prothrombin Time 18.3 SEC (11.7-14.0) Prothromb Time International Ratio 1.6 (0.8-1.1) Activated Partial Thromboplast Time 29 SEC (24-38) Sodium Level 142 mmol/L (136-145) Potassium Level 4.0 mmol/L (3.5-5.1) Chloride Level 110 mmol/L (98-107) Carbon Dioxide Level 21 mmol/L (21-32) Anion Gap 11 (6-14) Blood Urea Nitrogen 26 mg/dL (8-26) Creatinine 0.8 mg/dL (0.7-1.3) Estimated GFR (Cockcroft-Gault) 97.0 BUN/Creatinine Ratio 33 (6-20) Glucose Level 127 mg/dL (70-99) Calcium Level 7.4 mg/dL (8.5-10.1) Magnesium Level 2.3 mg/dL (1.8-2.4) Total Bilirubin 0.6 mg/dL (0.2-1.0) Aspartate Amino Transf (AST/SGOT) 17 U/L (15-37) Alanine Aminotransferase (ALT/SGPT) 33 U/L (16-63) Alkaline Phosphatase 35 U/L (46-116) Total Protein 4.3 g/dL (6.4-8.2) Albumin 3.0 g/dL (3.4-5.0) Albumin/Globulin Ratio 2.3 (1.0-1.7) Test 09/11/18 11:12 09/11/18 11:15 Glucose (Fingerstick) 104 mg/dL (70-99) Fibrinogen 125 mg/dL (200-440) Microbiology 09/05/18 CSF Gram Stain - Final, Complete 09/03/18 Urine Culture - Final, Complete 09/03/18 Urine Culture Result 1 (LUIS M) - Final, Complete Medications Current Medications Gadobutrol (Gadavist) 10 mmol 1X ONCE IV Last administered on 09/03/18at 15:35 ; Start 09/03/18 at 15:15; Stop 09/03/18 at 15:16; Status DC Aspirin (Ecotrin) 81 mg DAILYWBKFT PO Last administered on 09/11/18 08:18; Start 09/03/18 at 16:30 Docusate Sodium (Colace) 100 mg PRN DAILY PRN PO HARD STOOLS; Start 09/03/18 at 15:30 Tamsulosin HCl (Flomax) 0.4 mg BID PO Last administered on 09/08/18 09:00; Start 09/03/18 at 21:00; Stop 09/08/18 at 10:46; Status DC Non-Formulary Medication (Amlodipine/ Valsartan (Exforge 10-320 Mg Tablet)) 1 tab DAILY PO ; Start 09/04/18 at 09:00; Status UNV Metoprolol Succinate (Toprol Xl) 50 mg DAILY PO Last administered on 09/11/18 08:20; Start 09/03/18 at 16:30 Polyethylene Glycol (miraLAX PACKET) 17 gm PRN DAILY PRN PO CONSTIPATION 2ND CHOICE; Start 09/04/18 at 09:00 Atorvastatin Calcium (Lipitor) 40 mg QHS PO Last administered on 09/05/18 21: 01; Start 09/03/18 at 21:00; Stop 09/06/18 at 15:52; Status DC Oxycodone/ Acetaminophen (Percocet 5/325) 1 tab PRN Q4HRS PRN PO PAIN; Start at 15:30; Stop 09/03/18 at 17:31; Status DC Amlodipine Besylate (Norvasc) 10 mg DAILY PO Last administered on 09/11/18 08: 20; Start 09/03/18 at 16:30 Losartan Potassium (Cozaar) 100 mg DAILY PO Last administered on 09/11/18 08:20 ; Start 09/03/18 at 16:30 Oxycodone/ Acetaminophen (Percocet 5/325) 1 tab PRN Q6HRS PRN PO MODERATE PAIN Last administered on 09/04/18 11:07; Start 09/03/18 at 17:30; Stop 09/04/18 at 13:35; Status DC Ciprofloxacin (Cipro) 500 mg BID PO Last administered on 09/05/18at 08:27; Start 09/03/18 at 21:00; Stop 09/05/18 at 13:20; Status DC Oxycodone/ Acetaminophen (Percocet 5/325) 2 tab PRN Q6HRS PRN PO SEVERE PAIN; Start 09/03/18 at 17:45 Acetaminophen (Tylenol) 650 mg PRN Q4HRS PRN PO MILD PAIN Last administered on 09/03/18at 21:01; Start 09/03/18 at 18:45 Enoxaparin Sodium (Lovenox 120mg Syringe) 120 mg Q12HR SQ Last administered on 09/04/18at 07:55; Start 09/04/18 at 09:00; Stop 09/04/18 at 15:42; Status DC Methylprednisolone (Medrol) 8 mg BID PO Last administered on 09/04/18at 11:06; Start 09/04/18 at 10:00; Stop 09/04/18 at 13:28; Status DC Methylprednisolone (Medrol) 4 mg BIDPCLD PO ; Start 09/04/18 at 12:30; Stop at 13:28; Status DC Methylprednisolone (Medrol) 4 mg TIDPC PO ; Start 09/05/18 at 08:30; Stop at 08:30; Status DC Methylprednisolone (Medrol) 8 mg QHS PO ; Start 09/05/18 at 21:00; Stop at 21:00; Status DC Methylprednisolone (Medrol) 4 mg QIDAFTMEAL PO ; Start 09/06/18 at 09:00; Stop 09/06/18 at 09:00; Status DC Methylprednisolone (Medrol) 4 mg TID PO ; Start 09/07/18 at 09:00; Stop at 09:00; Status DC Methylprednisolone (Medrol) 4 mg BID PO ; Start 09/08/18 at 09:00; Stop at 09:00; Status DC Methylprednisolone (Medrol) 4 mg DAILY PO ; Start 09/09/18 at 09:00; Stop at 09:00; Status DC Pantoprazole Sodium (Protonix) 40 mg DAILYAC PO Last administered on 09/11/18at 06:10; Start 09/04/18 at 10:00 Bisacodyl (Dulcolax Tab) 10 mg DAILY PO Last administered on 09/09/18 08:25; Start 09/04/18 at 10:00 Bisacodyl (Dulcolax Supp) 10 mg PRN DAILY PRN OK CONSTIPATION 1ST RECTAL CHOICE Last administered on 09/04/18at 19:38; Start 09/04/18 at 09:30 Docusate Sodium (Enemeez) 283 mg PRN DAILY PRN OK CONSTIPATION 2ND RECTAL CHOICE; Start 09/04/18 at 09:30 Gadobutrol (Gadavist) 10 mmol 1X ONCE IV Last administered on 09/04/18at 13:26 ; Start 09/04/18 at 13:30; Stop 09/04/18 at 13:31; Status DC Methylprednisolone Sodium Succinate (SOLU-Medrol 125MG VIAL) 500 mg BID IV ; Start 09/04/18 at 21:00; Status UNV Methylprednisolone Sodium Succinate 500 mg/Sodium Chloride 100 ml @ 100 mls/hr Q12HR IV Last administered on 09/09/18at 08:30; Start 09/04/18 at 21:00; Stop 09/09/18 at 11:59; Status DC Methylprednisolone Sodium Succinate 500 mg/Sodium Chloride 100 ml @ 100 mls/hr Q12HR IV ; Start 09/04/18 at 21:00; Status Cancel Oxycodone/ Acetaminophen (Percocet 5/325) 1 tab PRN Q4HRS PRN PO MODERATE PAIN Last administered on 09/11/18at 08:19; Start 09/04/18 at 13:45 Hydrocortisone Acetate (Anucort-Hc) 25 mg PRN DAILY PRN OK RECTAL PAIN; Start 09/04/18 at 13:30 Enoxaparin Sodium (Lovenox 120mg Syringe) 110 mg Q12HR SQ Last administered on 09/05/18at 21:35; Start 09/04/18 at 21:00; Stop 09/06/18 at 06:49; Status DC Lactobacillus Rhamnosus (Culturelle) 1 cap BID PO Last administered on at 08:17; Start 09/04/18 at 21:00 Cefepime HCl (Maxipime) 2 gm Q8HRS IVP Last administered on 09/11/18at 05:08; Start 09/05/18 at 14:00 Vancomycin HCl (Vancomycin Oral Solution) 125 mg BID PO Last administered on 08:17; Start 09/05/18 at 21:00 Acyclovir Sodium 750 mg/Dextrose 265 ml @ 265 mls/hr Q8HRS IV Last administered on 09/11/18 05:28; Start 09/05/18 at 14:00 Doxycycline Hyclate (Vibra-Tab) 100 mg BID PO Last administered on 09/11/18 08: 18; Start 09/05/18 at 21:00 Info (Anti-Coagulation Monitoring By Pharmacy) 1 each PRN DAILY PRN MC SEE COMMENTS Last administered on 09/07/18at 15:56; Start 09/05/18 at 14:00; Stop 09/10/18 at 15:10; Status DC Enoxaparin Sodium (Lovenox 120mg Syringe) 120 mg Q12HR SQ ; Start 09/06/18 at 06 :49; Status Cancel Enoxaparin Sodium (Lovenox 120mg Syringe) 120 mg Q12HR SQ Last administered on 09/06/18at 08:39; Start 09/06/18 at 09:00; Stop 09/06/18 at 16:44; Status DC Cetirizine HCl (ZyrTEC) 10 mg DAILY PO Last administered on 09/06/18at 15:12; Start 09/04/18 at 11:00; Stop 09/06/18 at 15:53; Status DC Insulin Human Lispro (HumaLOG) 0-7 UNITS TIDWMEALS SQ Last administered on at 17:00; Start 09/06/18 at 17:00 Dextrose (Dextrose 50%-Water Syringe) 12.5 gm PRN Q15MIN PRN IV SEE COMMENTS; Start 09/06/18 at 12:30 Multivitamins (Thera M Plus) 1 tab DAILY PO Last administered on 09/11/18 08:17 ; Start 09/06/18 at 14:00 Calcium Carbonate/ Glycine (Oscal) 500 mg DAILY PO Last administered on 08:18; Start 09/06/18 at 14:00 Thiamine Mononitrate (Vitamin B-1) 100 mg DAILY PO Last administered on 08:17; Start 09/06/18 at 14:00 Cetirizine HCl (ZyrTEC) 10 mg DAILY PO Last administered on 09/11/18 08:18; Start 09/06/18 at 15:00 Rivaroxaban (Xarelto) 15 mg BIDWMEALS PO Last administered on 09/06/18at 17:23; Start 09/06/18 at 17:00; Stop 09/07/18 at 08:22; Status DC Enoxaparin Sodium (Lovenox Per Pharmacy Treatment Dosing) 1 each PRN DAILY PRN MC SEE COMMENTS; Start 09/07/18 at 11:15; Stop 09/08/18 at 12:11; Status DC Enoxaparin Sodium (Lovenox 120mg Syringe) 120 mg Q12HR SQ Last administered on 09/08/18at 09:24; Start 09/07/18 at 11:15; Stop 09/08/18 at 12:10; Status DC Gabapentin (Neurontin) 100 mg TID PO Last administered on 09/08/18at 14:13; Start 09/07/18 at 21:00; Stop 09/08/18 at 16:27; Status DC Gabapentin (Neurontin) 300 mg TID PO Last administered on 09/11/18at 08:18; Start 09/08/18 at 21:00 Lidocaine/Sodium Bicarbonate (Buffered Lidocaine 1%) 3 ml STK-MED ONCE .ROUTE ; Start 09/09/18 at 08:52; Stop 09/09/18 at 08:53; Status DC Lidocaine/Sodium Bicarbonate (Buffered Lidocaine 1%) 3 ml 1X ONCE INJ Last administered on 09/09/18at 09:43; Start 09/09/18 at 09:30; Stop 09/09/18 at 09:31; Status DC Enoxaparin Sodium (Lovenox Per Pharmacy Prophylaxis Dosing) 1 each DAILY PRN MC SEE COMMENTS; Start 09/09/18 at 11:15 Enoxaparin Sodium (Lovenox 40mg Syringe) 40 mg DAILY SQ Last administered on 08:19; Start 09/09/18 at 12:00 Prednisone (Prednisone) 70 mg DAILY PO Last administered on 09/11/18at 08:18; Start 09/09/18 at 12:00; Stop 09/15/18 at 09:01 Prednisone (Prednisone) 50 mg 1X ONCE PO ; Start 09/16/18 at 09:00; Stop at 09:01 Prednisone (Prednisone) 40 mg 1X ONCE PO ; Start 09/17/18 at 09:00; Stop at 09:01 Prednisone (Prednisone) 30 mg 1X ONCE PO ; Start 09/18/18 at 09:00; Stop at 09:01 Prednisone (Prednisone) 20 mg DAILY PO ; Start 09/19/18 at 09:00; Stop 09/21/18 at 09:01 Prednisone (Prednisone) 10 mg 1X ONCE PO ; Start 09/22/18 at 09:00; Stop at 09:01 Prednisone (Prednisone) 10 mg 1X ONCE PO ; Start 09/24/18 at 09:00; Stop at 09:01 Potassium Chloride (Klor-Con) 40 meq 1X STAT PO Last administered on 09/09/18at 13:54; Start 09/09/18 at 13:39; Stop 09/09/18 at 13:43; Status DC Albumin Human 3,000 ml @ 0 mls/hr 1X ONCE IV Last administered on 09/09/18at 15 :10; Start 09/09/18 at 14:00; Stop 09/09/18 at 14:01; Status DC Heparin Sodium (Porcine) (Heparin Sodium) 5,000 unit 1X ONCE IV Last administered on 09/09/18at 14:00; Start 09/09/18 at 14:00; Stop 09/09/18 at 14:01; Status DC Albumin Human 3,000 ml @ 0 mls/hr 1X ONCE IV Last administered on 09/10/18at 13 :03; Start 09/10/18 at 09:00; Stop 09/10/18 at 09:01; Status DC Calcium Gluconate 2000 mg/Dextrose 120 ml @ 220 mls/hr 1X ONCE IV Last administered on 09/10/18at 13:04; Start 09/10/18 at 08:45; Stop 09/10/18 at 09:17; Status DC Active Scripts Active Cipro (Ciprofloxacin Hcl) 500 Mg Tablet 1 Tab PO BID Aspirin Ec (Aspirin) 81 Mg Tablet.dr 81 Mg PO DAILYWBKFT 30 Days Colace (Docusate Sodium) 100 Mg Capsule 100 Mg PO PRN DAILY PRN 30 Days Polyethylene Glycol 3350 17 Gm Powd.pack 17 Gm PO PRN DAILY PRN 14 Days Flomax (Tamsulosin Hcl) 0.4 Mg Cap.er.24h 0.4 Mg PO BID 30 Days Reported Percocet 5-325 Mg Tablet (Oxycodone/Acetaminophen) 1 Each Tablet 1-2 Tab PO Q4-6HRS Exforge 10-320 Mg Tablet (Amlodipine/Valsartan) 1 Each Tablet 1 Tab PO DAILY Crestor (Rosuvastatin Calcium) 10 Mg Tablet 1 Tab PO DAILY Toprol Xl (Metoprolol Succinate) 50 Mg Tab.er.24h 1 Tab PO DAILY Vitals/I & O Vital Sign - Last 24 Hours 09/10/18 09/10/18 09/10/18 09/10/18 15:10 16:58 19:00 20:10 Temp 97.6 97.7 97.6 97.7 Pulse 74 77 Resp 20 18 B/P (MAP) 147/83 (104) 137/81 (99) Pulse Ox 96 95 O2 Delivery Room Air Room Air Room Air Room Air 09/10/18 09/11/18 09/11/18 09/11/18 23:00 03:00 07:00 07:21 Temp 97.8 97.5 97.5 97.8 97.5 97.5 Pulse 68 71 68 Resp 18 18 18 B/P (MAP) 129/60 (83) 149/83 (105) 157/92 (113) Pulse Ox 96 96 96 O2 Delivery Room Air Room Air Room Air Room Air 09/11/18 09/11/18 09/11/18 09/11/18 08:19 08:20 08:20 08:20 Pulse 86 86 86 B/P (MAP) 124/64 124/64 124/64 Pulse Ox 96 O2 Delivery Room Air 09/11/18 09:11 O2 Delivery Room Air Intake and Output 09/10/18 09/10/18 09/11/18 15:00 23:00 07:00 Intake Total 320 ml 360 ml 1800 ml Output Total 2250 ml 750 ml Balance 320 ml -1890 ml 1050 ml BIANCA LOPEZ MD Sep 11, 2018 12:04
--- NOTE | 2018-09-11 12:27 | PDOC ---
Renal-Progress Notes Subjective Notes Notes OVERALL FEELING BETTER History of Present Illness Hx of present illness IMPROVED Vitals Vitals Vital Signs Date Time Temp Pulse Resp B/P (MAP) Pulse Ox O2 Delivery O2 Flow Rate FiO2 09/11/18 09:11 Room Air 09/11/18 08:20 86 124/64 09/11/18 08:19 96 09/11/18 07:00 97.5 18 97.5 Weight Weight [ ] I.O. Intake and Output Intake and Output 09/11/18 07:00 Intake Total 2480 ml Output Total 3000 ml Balance -520 ml Intake Oral 2480 ml Output Urine Total 3000 ml # Bowel Movements 1 Labs Labs Laboratory Tests Test 09/10/18 16:45 09/10/18 21:03 09/11/18 02:35 09/11/18 07:38 Glucose (Fingerstick) 195 mg/dL (70-99) 165 mg/dL (70-99) 86 mg/dL (70-99) White Blood Count 11.8 x10^3/uL (4.0-11.0) Red Blood Count 4.95 x10^6/uL (4.30-5.70) Hemoglobin 14.7 g/dL (13.0-17.5) Hematocrit 44.9 % (39.0-53.0) Mean Corpuscular Volume 91 fL (79-100) Mean Corpuscular Hemoglobin 30 pg (25-35) Mean Corpuscular Hemoglobin Concent 33 g/dL (31-37) Red Cell Distribution Width 14.6 % (11.5-14.5) Platelet Count 182 x10^3/uL (140-400) Neutrophils (%) (Auto) 82 % (31-73) Lymphocytes (%) (Auto) 7 % (24-48) Monocytes (%) (Auto) 11 % (0-9) Eosinophils (%) (Auto) 0 % (0-3) Basophils (%) (Auto) 0 % (0-3) Neutrophils # (Auto) 9.6 x10^3uL (1.8-7.7) Lymphocytes # (Auto) 0.8 x10^3/uL (1.0-4.8) Monocytes # (Auto) 1.3 x10^3/uL (0.0-1.1) Eosinophils # (Auto) 0.0 x10^3/uL (0.0-0.7) Basophils # (Auto) 0.0 x10^3/uL (0.0-0.2) Prothrombin Time 18.3 SEC (11.7-14.0) Prothromb Time International Ratio 1.6 (0.8-1.1) Activated Partial Thromboplast Time 29 SEC (24-38) Sodium Level 142 mmol/L (136-145) Potassium Level 4.0 mmol/L (3.5-5.1) Chloride Level 110 mmol/L (98-107) Carbon Dioxide Level 21 mmol/L (21-32) Anion Gap 11 (6-14) Blood Urea Nitrogen 26 mg/dL (8-26) Creatinine 0.8 mg/dL (0.7-1.3) Estimated GFR (Cockcroft-Gault) 97.0 BUN/Creatinine Ratio 33 (6-20) Glucose Level 127 mg/dL (70-99) Calcium Level 7.4 mg/dL (8.5-10.1) Magnesium Level 2.3 mg/dL (1.8-2.4) Total Bilirubin 0.6 mg/dL (0.2-1.0) Aspartate Amino Transf (AST/SGOT) 17 U/L (15-37) Alanine Aminotransferase (ALT/SGPT) 33 U/L (16-63) Alkaline Phosphatase 35 U/L (46-116) Total Protein 4.3 g/dL (6.4-8.2) Albumin 3.0 g/dL (3.4-5.0) Albumin/Globulin Ratio 2.3 (1.0-1.7) Test 09/11/18 11:12 09/11/18 11:15 Glucose (Fingerstick) 104 mg/dL (70-99) Fibrinogen 125 mg/dL (200-440) Micro Micro Microbiology 09/05/18 CSF Gram Stain - Final, Complete 09/03/18 Urine Culture - Final, Complete 09/03/18 Urine Culture Result 1 (LUIS M) - Final, Complete Review of Systems Constitutional: yes: weakness, alert, oriented Ears/Nose/Throat: Yes: no symptom reported Eyes: Yes: no symptom reported Pulmonary: Yes no symptom reported Cardiovascular: Yes no symptom reported Gastrointestional: Yes: constipation Genitourinary: Yes: retention Musculoskeletal: Yes: muscle stiffness, muscle atrophy Skin: Yes no symptom reported Psychiatric/Neurological: Yes: no symptom reported Endocrine: Yes: no symptom reported Physical Exam General Appearance: no apparent distress Skin: warm Respiratory: bilateral CTA Heart: S1S2, RRR Abdomen: soft, bowel sounds present Genitourinary: bladder flat Extremities: pulses present, no edema Neurology: alert, oriented Musculoskeletal: Other Assessment Assessment IMP TRANSVERSE MYELITIS NEUROGENIC BLADDER HYPOCALCEMIA PLAN TPE TODAY # 3 TODAY EXCHANGE VOLUME WITH [facility] AGAIN TODAY DUE TO COAGULOPATHY COAG STUDIES IN AM AGAIN CALCIUM REPLACEMENT TODAY LAST TX PLANNED FOR SUNDAY THEN REHAB WILL FOLLOW TYRA ESPINOZA MD Sep 11, 2018 12:27
[2018-09-11] MEDS: IV NORMAL SALINE 1000ML BAG 1,000 ML IV SCH ×2 (12:45→14:45)
[2018-09-11] MEDS ORDERED: CALCIUM GLUCONATE 2,000 MG in IV NORMAL SALINE 100ML 100 ML IV ONE (13:00)
--- NOTE | 2018-09-11 13:12 | PDOC ---
Infectious Disease Note Subjective Subjective Comfortable Sat up for 2 hours today Moving RLE a little more More bowel control Denies F/C/S/N/V/D Vital Sign Vital Signs Vital Signs Date Time Temp Pulse Resp B/P (MAP) Pulse Ox O2 Delivery O2 Flow Rate FiO2 09/11/18 09:11 Room Air 09/11/18 08:20 86 124/64 09/11/18 08:19 96 09/11/18 07:00 97.5 18 97.5 Physical Exam PHYSICAL EXAM GENERAL: Propped up in bed, alert, smiling HEENT: Oropharynx clear NECK: Supple. LUNGS: Clear bilaterally. No wheezing. HEART: S1, S2. ABDOMEN: Obese, soft, NT EXTREMITIES: Bilateral trace pedal edema. NEUROLOGIC: Alert and oriented x 3. Lower extremity weakness bilaterally can move LLE better and ? more with right SPINE: Back incision well healed, nontender. No surrounding redness or erythema. SKIN: Warm, dry. No generalized rash. PIV, right forearm, new. R subclavian clean trace bleed - Labs Lab Laboratory Tests Test 09/10/18 16:45 09/10/18 21:03 09/11/18 02:35 09/11/18 07:38 Glucose (Fingerstick) 195 mg/dL (70-99) 165 mg/dL (70-99) 86 mg/dL (70-99) White Blood Count 11.8 x10^3/uL (4.0-11.0) Red Blood Count 4.95 x10^6/uL (4.30-5.70) Hemoglobin 14.7 g/dL (13.0-17.5) Hematocrit 44.9 % (39.0-53.0) Mean Corpuscular Volume 91 fL (79-100) Mean Corpuscular Hemoglobin 30 pg (25-35) Mean Corpuscular Hemoglobin Concent 33 g/dL (31-37) Red Cell Distribution Width 14.6 % (11.5-14.5) Platelet Count 182 x10^3/uL (140-400) Neutrophils (%) (Auto) 82 % (31-73) Lymphocytes (%) (Auto) 7 % (24-48) Monocytes (%) (Auto) 11 % (0-9) Eosinophils (%) (Auto) 0 % (0-3) Basophils (%) (Auto) 0 % (0-3) Neutrophils # (Auto) 9.6 x10^3uL (1.8-7.7) Lymphocytes # (Auto) 0.8 x10^3/uL (1.0-4.8) Monocytes # (Auto) 1.3 x10^3/uL (0.0-1.1) Eosinophils # (Auto) 0.0 x10^3/uL (0.0-0.7) Basophils # (Auto) 0.0 x10^3/uL (0.0-0.2) Prothrombin Time 18.3 SEC (11.7-14.0) Prothromb Time International Ratio 1.6 (0.8-1.1) Activated Partial Thromboplast Time 29 SEC (24-38) Sodium Level 142 mmol/L (136-145) Potassium Level 4.0 mmol/L (3.5-5.1) Chloride Level 110 mmol/L (98-107) Carbon Dioxide Level 21 mmol/L (21-32) Anion Gap 11 (6-14) Blood Urea Nitrogen 26 mg/dL (8-26) Creatinine 0.8 mg/dL (0.7-1.3) Estimated GFR (Cockcroft-Gault) 97.0 BUN/Creatinine Ratio 33 (6-20) Glucose Level 127 mg/dL (70-99) Calcium Level 7.4 mg/dL (8.5-10.1) Magnesium Level 2.3 mg/dL (1.8-2.4) Total Bilirubin 0.6 mg/dL (0.2-1.0) Aspartate Amino Transf (AST/SGOT) 17 U/L (15-37) Alanine Aminotransferase (ALT/SGPT) 33 U/L (16-63) Alkaline Phosphatase 35 U/L (46-116) Total Protein 4.3 g/dL (6.4-8.2) Albumin 3.0 g/dL (3.4-5.0) Albumin/Globulin Ratio 2.3 (1.0-1.7) Test 09/11/18 11:12 09/11/18 11:15 Glucose (Fingerstick) 104 mg/dL (70-99) Fibrinogen 125 mg/dL (200-440) Micro Microbiology 09/05/18 CSF Gram Stain - Final, Complete 3/26/19 Urine Culture - Final, Complete 09/03/18 Urine Culture Result 1 (LUIS M) - Final, Complete Objective Assessment Transverse myelitis, MRI 09/03/2018. CSF WBC 13, other studies noted , likely noninfectious -s/p LP. Opening pressure 20cm. CSF WBC 13, glucose 76, TP 86.4. No organisms seen. cx pending -HSV/EBV and HIV negative; CMV IgM <0.30. Treponema neg. [place] IgG + CSF - HAD BEEN ON STEROIDS leukocytosis from steroids Cauda equina syndrome, status post surgery 06/2018. Urinary retention, neurogenic bladder, requiring straight catheterization for 2 months. UC no growth Recurrent urinary tract infection, 07/2018 pansensitive Escherichia coli, treated with ciprofloxacin. History of Clostridium difficile, 07/2018, treated, no recurrence. Status post laminectomy, 06/30/2018, L3-L5. Bilateral lower extremity weakness. Hyperlipidemia. Hypertension. Hyperglycemia. Non-occlusive thrombus, right posterior tibial and peroneal vein H/O seasonal allergies. Plan Plan of Care Acyclovir since 09/05 Cefepime and doxycycline since 09/05 p.o. vancomycin prophylaxis, b.i.d. dosing. Steroids f/u cultures/serologies Continuing plasmapheresis today MILIND GUZMAN MD Sep 11, 2018 13:12
--- NOTE | 2018-09-11 13:23 | PDOC ---
PROGRESS NOTES Chief Complaint Chief Complaint Transverse myelitis- Cauda Equina Syndrome Bilateral LE weakness S/p laminectomy (06/2018) L3-L5 Recent admission for UTI/C.Diff (07/2018) Neurogenic bladder- requiring straight cath x2 months Hyperlipidemia Essential hypertension leukocytosis from steroids Recurrent urinary tract infection, 07/2018 pansensitive Escherichia coli, treated with ciprofloxacin. History of Clostridium difficile, 07/2018, treated, no recurrence. Status post laminectomy, 06/30/2018, L3-L5. Bilateral lower extremity weakness. Hyperlipidemia. Hypertension. Hyperglycemia. Non-occlusive thrombus, right posterior tibial and peroneal vein H/O seasonal allergies. History of Present Illness History of Present Illness S/p PICC line trialysis catheter 09/09 and feels improved after plasmapheresis x2 A bit less weak, no vomiting, some worse LE edema, better with ambulating, then raising. Able to put his knees together now. Denies CP or SOB. Cefepime, acyclovir and doxycycline since 09/05 as well as steroids per ID, awaiting final culture and serology data p.o. vancomycin prophylaxis, b.i.d. dosing. Awaiting plasmapheresis again today - will be 5 total sessions likely can discharge this coming sunday Vitals Vitals Vital Signs Date Time Temp Pulse Resp B/P (MAP) Pulse Ox O2 Delivery O2 Flow Rate FiO2 09/11/18 09:11 Room Air 09/11/18 08:20 86 124/64 09/11/18 08:19 96 09/11/18 07:00 97.5 18 97.5 Physical Exam Physical Exam GENERAL: Propped up in bed, alert, smiling HEENT: Oropharynx clear NECK: Supple. LUNGS: Clear bilaterally. No wheezing. HEART: S1, S2. ABDOMEN: Obese, soft, NT EXTREMITIES: Bilateral trace pedal edema. NEUROLOGIC: Alert and oriented x 3. Lower extremity weakness bilaterally can move LLE better and ? more with right SPINE: Back incision well healed, nontender. No surrounding redness or erythema. SKIN: Warm, dry. No generalized rash. PIV, right forearm, new. R subclavian clean trace bleed - General: Alert, Oriented X3, Cooperative, No acute distress Heart: Regular rate Lungs: Clear Abdomen: Normal bowel sounds, Soft, No tenderness Extremities: No clubbing, No cyanosis Labs LABS Laboratory Tests Test 09/10/18 16:45 09/10/18 21:03 09/11/18 02:35 09/11/18 07:38 Glucose (Fingerstick) 195 mg/dL (70-99) 165 mg/dL (70-99) 86 mg/dL (70-99) White Blood Count 11.8 x10^3/uL (4.0-11.0) Red Blood Count 4.95 x10^6/uL (4.30-5.70) Hemoglobin 14.7 g/dL (13.0-17.5) Hematocrit 44.9 % (39.0-53.0) Mean Corpuscular Volume 91 fL (79-100) Mean Corpuscular Hemoglobin 30 pg (25-35) Mean Corpuscular Hemoglobin Concent 33 g/dL (31-37) Red Cell Distribution Width 14.6 % (11.5-14.5) Platelet Count 182 x10^3/uL (140-400) Neutrophils (%) (Auto) 82 % (31-73) Lymphocytes (%) (Auto) 7 % (24-48) Monocytes (%) (Auto) 11 % (0-9) Eosinophils (%) (Auto) 0 % (0-3) Basophils (%) (Auto) 0 % (0-3) Neutrophils # (Auto) 9.6 x10^3uL (1.8-7.7) Lymphocytes # (Auto) 0.8 x10^3/uL (1.0-4.8) Monocytes # (Auto) 1.3 x10^3/uL (0.0-1.1) Eosinophils # (Auto) 0.0 x10^3/uL (0.0-0.7) Basophils # (Auto) 0.0 x10^3/uL (0.0-0.2) Prothrombin Time 18.3 SEC (11.7-14.0) Prothromb Time International Ratio 1.6 (0.8-1.1) Activated Partial Thromboplast Time 29 SEC (24-38) Sodium Level 142 mmol/L (136-145) Potassium Level 4.0 mmol/L (3.5-5.1) Chloride Level 110 mmol/L (98-107) Carbon Dioxide Level 21 mmol/L (21-32) Anion Gap 11 (6-14) Blood Urea Nitrogen 26 mg/dL (8-26) Creatinine 0.8 mg/dL (0.7-1.3) Estimated GFR (Cockcroft-Gault) 97.0 BUN/Creatinine Ratio 33 (6-20) Glucose Level 127 mg/dL (70-99) Calcium Level 7.4 mg/dL (8.5-10.1) Magnesium Level 2.3 mg/dL (1.8-2.4) Total Bilirubin 0.6 mg/dL (0.2-1.0) Aspartate Amino Transf (AST/SGOT) 17 U/L (15-37) Alanine Aminotransferase (ALT/SGPT) 33 U/L (16-63) Alkaline Phosphatase 35 U/L (46-116) Total Protein 4.3 g/dL (6.4-8.2) Albumin 3.0 g/dL (3.4-5.0) Albumin/Globulin Ratio 2.3 (1.0-1.7) Test 09/11/18 11:12 09/11/18 11:15 Glucose (Fingerstick) 104 mg/dL (70-99) Fibrinogen 125 mg/dL (200-440) Comment Review of Relevant I have reviewed the following items franc (where applicable) has been applied. Labs Laboratory Tests Test 09/09/18 17:11 09/09/18 20:44 09/10/18 02:45 09/10/18 07:03 Glucose (Fingerstick) 163 mg/dL (70-99) 161 mg/dL (70-99) 150 mg/dL (70-99) White Blood Count 11.2 x10^3/uL (4.0-11.0) Red Blood Count 5.01 x10^6/uL (4.30-5.70) Hemoglobin 14.8 g/dL (13.0-17.5) Hematocrit 45.2 % (39.0-53.0) Mean Corpuscular Volume 90 fL (79-100) Mean Corpuscular Hemoglobin 30 pg (25-35) Mean Corpuscular Hemoglobin Concent 33 g/dL (31-37) Red Cell Distribution Width 14.3 % (11.5-14.5) Platelet Count 189 x10^3/uL (140-400) Neutrophils (%) (Auto) 90 % (31-73) Lymphocytes (%) (Auto) 5 % (24-48) Monocytes (%) (Auto) 5 % (0-9) Eosinophils (%) (Auto) 0 % (0-3) Basophils (%) (Auto) 0 % (0-3) Neutrophils # (Auto) 10.1 x10^3uL (1.8-7.7) Lymphocytes # (Auto) 0.5 x10^3/uL (1.0-4.8) Monocytes # (Auto) 0.6 x10^3/uL (0.0-1.1) Eosinophils # (Auto) 0.0 x10^3/uL (0.0-0.7) Basophils # (Auto) 0.0 x10^3/uL (0.0-0.2) Prothrombin Time 20.3 SEC (11.7-14.0) Prothromb Time International Ratio 1.8 (0.8-1.1) Activated Partial Thromboplast Time 35 SEC (24-38) Fibrinogen 82 mg/dL (200-440) Sodium Level 140 mmol/L (136-145) Potassium Level 4.2 mmol/L (3.5-5.1) Chloride Level 109 mmol/L (98-107) Carbon Dioxide Level 21 mmol/L (21-32) Anion Gap 10 (6-14) Blood Urea Nitrogen 31 mg/dL (8-26) Creatinine 0.8 mg/dL (0.7-1.3) Estimated GFR (Cockcroft-Gault) 97.0 Glucose Level 197 mg/dL (70-99) Calcium Level 7.5 mg/dL (8.5-10.1) Test 09/10/18 10:56 09/10/18 16:45 09/10/18 21:03 09/11/18 02:35 Glucose (Fingerstick) 165 mg/dL (70-99) 195 mg/dL (70-99) 165 mg/dL (70-99) White Blood Count 11.8 x10^3/uL (4.0-11.0) Red Blood Count 4.95 x10^6/uL (4.30-5.70) Hemoglobin 14.7 g/dL (13.0-17.5) Hematocrit 44.9 % (39.0-53.0) Mean Corpuscular Volume 91 fL (79-100) Mean Corpuscular Hemoglobin 30 pg (25-35) Mean Corpuscular Hemoglobin Concent 33 g/dL (31-37) Red Cell Distribution Width 14.6 % (11.5-14.5) Platelet Count 182 x10^3/uL (140-400) Neutrophils (%) (Auto) 82 % (31-73) Lymphocytes (%) (Auto) 7 % (24-48) Monocytes (%) (Auto) 11 % (0-9) Eosinophils (%) (Auto) 0 % (0-3) Basophils (%) (Auto) 0 % (0-3) Neutrophils # (Auto) 9.6 x10^3uL (1.8-7.7) Lymphocytes # (Auto) 0.8 x10^3/uL (1.0-4.8) Monocytes # (Auto) 1.3 x10^3/uL (0.0-1.1) Eosinophils # (Auto) 0.0 x10^3/uL (0.0-0.7) Basophils # (Auto) 0.0 x10^3/uL (0.0-0.2) Prothrombin Time 18.3 SEC (11.7-14.0) Prothromb Time International Ratio 1.6 (0.8-1.1) Activated Partial Thromboplast Time 29 SEC (24-38) Sodium Level 142 mmol/L (136-145) Potassium Level 4.0 mmol/L (3.5-5.1) Chloride Level 110 mmol/L (98-107) Carbon Dioxide Level 21 mmol/L (21-32) Anion Gap 11 (6-14) Blood Urea Nitrogen 26 mg/dL (8-26) Creatinine 0.8 mg/dL (0.7-1.3) Estimated GFR (Cockcroft-Gault) 97.0 BUN/Creatinine Ratio 33 (6-20) Glucose Level 127 mg/dL (70-99) Calcium Level 7.4 mg/dL (8.5-10.1) Magnesium Level 2.3 mg/dL (1.8-2.4) Total Bilirubin 0.6 mg/dL (0.2-1.0) Aspartate Amino Transf (AST/SGOT) 17 U/L (15-37) Alanine Aminotransferase (ALT/SGPT) 33 U/L (16-63) Alkaline Phosphatase 35 U/L (46-116) Total Protein 4.3 g/dL (6.4-8.2) Albumin 3.0 g/dL (3.4-5.0) Albumin/Globulin Ratio 2.3 (1.0-1.7) Test 09/11/18 07:38 09/11/18 11:12 09/11/18 11:15 Glucose (Fingerstick) 86 mg/dL (70-99) 104 mg/dL (70-99) Fibrinogen 125 mg/dL (200-440) Laboratory Tests Test 09/10/18 16:45 09/10/18 21:03 09/11/18 02:35 09/11/18 07:38 Glucose (Fingerstick) 195 mg/dL (70-99) 165 mg/dL (70-99) 86 mg/dL (70-99) White Blood Count 11.8 x10^3/uL (4.0-11.0) Red Blood Count 4.95 x10^6/uL (4.30-5.70) Hemoglobin 14.7 g/dL (13.0-17.5) Hematocrit 44.9 % (39.0-53.0) Mean Corpuscular Volume 91 fL (79-100) Mean Corpuscular Hemoglobin 30 pg (25-35) Mean Corpuscular Hemoglobin Concent 33 g/dL (31-37) Red Cell Distribution Width 14.6 % (11.5-14.5) Platelet Count 182 x10^3/uL (140-400) Neutrophils (%) (Auto) 82 % (31-73) Lymphocytes (%) (Auto) 7 % (24-48) Monocytes (%) (Auto) 11 % (0-9) Eosinophils (%) (Auto) 0 % (0-3) Basophils (%) (Auto) 0 % (0-3) Neutrophils # (Auto) 9.6 x10^3uL (1.8-7.7) Lymphocytes # (Auto) 0.8 x10^3/uL (1.0-4.8) Monocytes # (Auto) 1.3 x10^3/uL (0.0-1.1) Eosinophils # (Auto) 0.0 x10^3/uL (0.0-0.7) Basophils # (Auto) 0.0 x10^3/uL (0.0-0.2) Prothrombin Time 18.3 SEC (11.7-14.0) Prothromb Time International Ratio 1.6 (0.8-1.1) Activated Partial Thromboplast Time 29 SEC (24-38) Sodium Level 142 mmol/L (136-145) Potassium Level 4.0 mmol/L (3.5-5.1) Chloride Level 110 mmol/L (98-107) Carbon Dioxide Level 21 mmol/L (21-32) Anion Gap 11 (6-14) Blood Urea Nitrogen 26 mg/dL (8-26) Creatinine 0.8 mg/dL (0.7-1.3) Estimated GFR (Cockcroft-Gault) 97.0 BUN/Creatinine Ratio 33 (6-20) Glucose Level 127 mg/dL (70-99) Calcium Level 7.4 mg/dL (8.5-10.1) Magnesium Level 2.3 mg/dL (1.8-2.4) Total Bilirubin 0.6 mg/dL (0.2-1.0) Aspartate Amino Transf (AST/SGOT) 17 U/L (15-37) Alanine Aminotransferase (ALT/SGPT) 33 U/L (16-63) Alkaline Phosphatase 35 U/L (46-116) Total Protein 4.3 g/dL (6.4-8.2) Albumin 3.0 g/dL (3.4-5.0) Albumin/Globulin Ratio 2.3 (1.0-1.7) Test 09/11/18 11:12 09/11/18 11:15 Glucose (Fingerstick) 104 mg/dL (70-99) Fibrinogen 125 mg/dL (200-440) Microbiology 09/05/18 CSF Gram Stain - Final, Complete 09/03/18 Urine Culture - Final, Complete 09/03/18 Urine Culture Result 1 (LUIS M) - Final, Complete Medications Current Medications Gadobutrol (Gadavist) 10 mmol 1X ONCE IV Last administered on 09/03/18at 15:35 ; Start 09/03/18 at 15:15; Stop 09/03/18 at 15:16; Status DC Aspirin (Ecotrin) 81 mg DAILYWBKFT PO Last administered on 09/11/18at 08:18; Start 09/03/18 at 16:30 Docusate Sodium (Colace) 100 mg PRN DAILY PRN PO HARD STOOLS; Start 09/03/18 at 15:30 Tamsulosin HCl (Flomax) 0.4 mg BID PO Last administered on 09/08/18 09:00; Start 09/03/18 at 21:00; Stop 09/08/18 at 10:46; Status DC Non-Formulary Medication (Amlodipine/ Valsartan (Exforge 10-320 Mg Tablet)) 1 tab DAILY PO ; Start 09/04/18 at 09:00; Status UNV Metoprolol Succinate (Toprol Xl) 50 mg DAILY PO Last administered on 09/11/18 08:20; Start 09/03/18 at 16:30 Polyethylene Glycol (miraLAX PACKET) 17 gm PRN DAILY PRN PO CONSTIPATION 2ND CHOICE; Start 09/04/18 at 09:00 Atorvastatin Calcium (Lipitor) 40 mg QHS PO Last administered on 09/05/18at 21: 01; Start 09/03/18 at 21:00; Stop 09/06/18 at 15:52; Status DC Oxycodone/ Acetaminophen (Percocet 5/325) 1 tab PRN Q4HRS PRN PO PAIN; Start at 15:30; Stop 09/03/18 at 17:31; Status DC Amlodipine Besylate (Norvasc) 10 mg DAILY PO Last administered on 09/11/18 08: 20; Start 09/03/18 at 16:30 Losartan Potassium (Cozaar) 100 mg DAILY PO Last administered on 09/11/18 08:20 ; Start 09/03/18 at 16:30 Oxycodone/ Acetaminophen (Percocet 5/325) 1 tab PRN Q6HRS PRN PO MODERATE PAIN Last administered on 09/04/18at 11:07; Start 09/03/18 at 17:30; Stop 09/04/18 at 13:35; Status DC Ciprofloxacin (Cipro) 500 mg BID PO Last administered on 09/05/18at 08:27; Start 09/03/18 at 21:00; Stop 09/05/18 at 13:20; Status DC Oxycodone/ Acetaminophen (Percocet 5/325) 2 tab PRN Q6HRS PRN PO SEVERE PAIN; Start 09/03/18 at 17:45 Acetaminophen (Tylenol) 650 mg PRN Q4HRS PRN PO MILD PAIN Last administered on 09/03/18at 21:01; Start 09/03/18 at 18:45 Enoxaparin Sodium (Lovenox 120mg Syringe) 120 mg Q12HR SQ Last administered on 09/04/18at 07:55; Start 09/04/18 at 09:00; Stop 09/04/18 at 15:42; Status DC Methylprednisolone (Medrol) 8 mg BID PO Last administered on 09/04/18at 11:06; Start 09/04/18 at 10:00; Stop 09/04/18 at 13:28; Status DC Methylprednisolone (Medrol) 4 mg BIDPCLD PO ; Start 09/04/18 at 12:30; Stop at 13:28; Status DC Methylprednisolone (Medrol) 4 mg TIDPC PO ; Start 09/05/18 at 08:30; Stop at 08:30; Status DC Methylprednisolone (Medrol) 8 mg QHS PO ; Start 09/05/18 at 21:00; Stop at 21:00; Status DC Methylprednisolone (Medrol) 4 mg QIDAFTMEAL PO ; Start 09/06/18 at 09:00; Stop 09/06/18 at 09:00; Status DC Methylprednisolone (Medrol) 4 mg TID PO ; Start 09/07/18 at 09:00; Stop at 09:00; Status DC Methylprednisolone (Medrol) 4 mg BID PO ; Start 09/08/18 at 09:00; Stop at 09:00; Status DC Methylprednisolone (Medrol) 4 mg DAILY PO ; Start 09/09/18 at 09:00; Stop at 09:00; Status DC Pantoprazole Sodium (Protonix) 40 mg DAILYAC PO Last administered on 09/11/18at 06:10; Start 09/04/18 at 10:00 Bisacodyl (Dulcolax Tab) 10 mg DAILY PO Last administered on 09/09/18at 08:25; Start 09/04/18 at 10:00 Bisacodyl (Dulcolax Supp) 10 mg PRN DAILY PRN HI CONSTIPATION 1ST RECTAL CHOICE Last administered on 09/04/18at 19:38; Start 09/04/18 at 09:30 Docusate Sodium (Enemeez) 283 mg PRN DAILY PRN HI CONSTIPATION 2ND RECTAL CHOICE; Start 09/04/18 at 09:30 Gadobutrol (Gadavist) 10 mmol 1X ONCE IV Last administered on 09/04/18at 13:26 ; Start 09/04/18 at 13:30; Stop 09/04/18 at 13:31; Status DC Methylprednisolone Sodium Succinate (SOLU-Medrol 125MG VIAL) 500 mg BID IV ; Start 09/04/18 at 21:00; Status UNV Methylprednisolone Sodium Succinate 500 mg/Sodium Chloride 100 ml @ 100 mls/hr Q12HR IV Last administered on 09/09/18 08:30; Start 09/04/18 at 21:00; Stop 09/09/18 at 11:59; Status DC Methylprednisolone Sodium Succinate 500 mg/Sodium Chloride 100 ml @ 100 mls/hr Q12HR IV ; Start 09/04/18 at 21:00; Status Cancel Oxycodone/ Acetaminophen (Percocet 5/325) 1 tab PRN Q4HRS PRN PO MODERATE PAIN Last administered on 09/11/18 08:19; Start 09/04/18 at 13:45 Hydrocortisone Acetate (Anucort-Hc) 25 mg PRN DAILY PRN HI RECTAL PAIN; Start 09/04/18 at 13:30 Enoxaparin Sodium (Lovenox 120mg Syringe) 110 mg Q12HR SQ Last administered on 09/05/18at 21:35; Start 09/04/18 at 21:00; Stop 09/06/18 at 06:49; Status DC Lactobacillus Rhamnosus (Culturelle) 1 cap BID PO Last administered on 08:17; Start 09/04/18 at 21:00 Cefepime HCl (Maxipime) 2 gm Q8HRS IVP Last administered on 09/11/18 05:08; Start 09/05/18 at 14:00 Vancomycin HCl (Vancomycin Oral Solution) 125 mg BID PO Last administered on 08:17; Start 09/05/18 at 21:00 Acyclovir Sodium 750 mg/Dextrose 265 ml @ 265 mls/hr Q8HRS IV Last administered on 09/11/18 05:28; Start 09/05/18 at 14:00 Doxycycline Hyclate (Vibra-Tab) 100 mg BID PO Last administered on 09/11/18 08: 18; Start 09/05/18 at 21:00 Info (Anti-Coagulation Monitoring By Pharmacy) 1 each PRN DAILY PRN MC SEE COMMENTS Last administered on 09/07/18 15:56; Start 09/05/18 at 14:00; Stop 09/10/18 at 15:10; Status DC Enoxaparin Sodium (Lovenox 120mg Syringe) 120 mg Q12HR SQ ; Start 09/06/18 at 06 :49; Status Cancel Enoxaparin Sodium (Lovenox 120mg Syringe) 120 mg Q12HR SQ Last administered on 09/06/18 08:39; Start 09/06/18 at 09:00; Stop 09/06/18 at 16:44; Status DC Cetirizine HCl (ZyrTEC) 10 mg DAILY PO Last administered on 09/06/18 15:12; Start 09/04/18 at 11:00; Stop 09/06/18 at 15:53; Status DC Insulin Human Lispro (HumaLOG) 0-7 UNITS TIDWMEALS SQ Last administered on 17:00; Start 09/06/18 at 17:00 Dextrose (Dextrose 50%-Water Syringe) 12.5 gm PRN Q15MIN PRN IV SEE COMMENTS; Start 09/06/18 at 12:30 Multivitamins (Thera M Plus) 1 tab DAILY PO Last administered on 09/11/18 08:17 ; Start 09/06/18 at 14:00 Calcium Carbonate/ Glycine (Oscal) 500 mg DAILY PO Last administered on 08:18; Start 09/06/18 at 14:00 Thiamine Mononitrate (Vitamin B-1) 100 mg DAILY PO Last administered on 08:17; Start 09/06/18 at 14:00 Cetirizine HCl (ZyrTEC) 10 mg DAILY PO Last administered on 09/11/18 08:18; Start 09/06/18 at 15:00 Rivaroxaban (Xarelto) 15 mg BIDWMEALS PO Last administered on 09/06/18 17:23; Start 09/06/18 at 17:00; Stop 09/07/18 at 08:22; Status DC Enoxaparin Sodium (Lovenox Per Pharmacy Treatment Dosing) 1 each PRN DAILY PRN MC SEE COMMENTS; Start 09/07/18 at 11:15; Stop 09/08/18 at 12:11; Status DC Enoxaparin Sodium (Lovenox 120mg Syringe) 120 mg Q12HR SQ Last administered on 09/08/18at 09:24; Start 09/07/18 at 11:15; Stop 09/08/18 at 12:10; Status DC Gabapentin (Neurontin) 100 mg TID PO Last administered on 09/08/18at 14:13; Start 09/07/18 at 21:00; Stop 09/08/18 at 16:27; Status DC Gabapentin (Neurontin) 300 mg TID PO Last administered on 09/11/18at 08:18; Start 09/08/18 at 21:00 Lidocaine/Sodium Bicarbonate (Buffered Lidocaine 1%) 3 ml STK-MED ONCE .ROUTE ; Start 09/09/18 at 08:52; Stop 09/09/18 at 08:53; Status DC Lidocaine/Sodium Bicarbonate (Buffered Lidocaine 1%) 3 ml 1X ONCE INJ Last administered on 09/09/18at 09:43; Start 09/09/18 at 09:30; Stop 09/09/18 at 09:31; Status DC Enoxaparin Sodium (Lovenox Per Pharmacy Prophylaxis Dosing) 1 each DAILY PRN MC SEE COMMENTS; Start 09/09/18 at 11:15 Enoxaparin Sodium (Lovenox 40mg Syringe) 40 mg DAILY SQ Last administered on 09/11/18at 08:19; Start 09/09/18 at 12:00 Prednisone (Prednisone) 70 mg DAILY PO Last administered on 09/11/18at 08:18; Start 09/09/18 at 12:00; Stop 09/15/18 at 09:01 Prednisone (Prednisone) 50 mg 1X ONCE PO ; Start 09/16/18 at 09:00; Stop at 09:01 Prednisone (Prednisone) 40 mg 1X ONCE PO ; Start 09/17/18 at 09:00; Stop at 09:01 Prednisone (Prednisone) 30 mg 1X ONCE PO ; Start 09/18/18 at 09:00; Stop at 09:01 Prednisone (Prednisone) 20 mg DAILY PO ; Start 09/19/18 at 09:00; Stop 09/21/18 at 09:01 Prednisone (Prednisone) 10 mg 1X ONCE PO ; Start 09/22/18 at 09:00; Stop at 09:01 Prednisone (Prednisone) 10 mg 1X ONCE PO ; Start 09/24/18 at 09:00; Stop at 09:01 Potassium Chloride (Klor-Con) 40 meq 1X STAT PO Last administered on 09/09/18at 13:54; Start 09/09/18 at 13:39; Stop 09/09/18 at 13:43; Status DC Albumin Human 3,000 ml @ 0 mls/hr 1X ONCE IV Last administered on 09/09/18at 15 :10; Start 09/09/18 at 14:00; Stop 09/09/18 at 14:01; Status DC Heparin Sodium (Porcine) (Heparin Sodium) 5,000 unit 1X ONCE IV Last administered on 09/09/18at 14:00; Start 09/09/18 at 14:00; Stop 09/09/18 at 14:01; Status DC Albumin Human 3,000 ml @ 0 mls/hr 1X ONCE IV Last administered on 09/10/18at 13 :03; Start 09/10/18 at 09:00; Stop 09/10/18 at 09:01; Status DC Calcium Gluconate 2000 mg/Dextrose 120 ml @ 220 mls/hr 1X ONCE IV Last administered on 09/10/18at 13:04; Start 09/10/18 at 08:45; Stop 09/10/18 at 09:17; Status DC Sodium Chloride 1,000 ml @ 500 mls/hr Q2H IV ; Start 09/11/18 at 12:45; Stop 09/11/18 at 15:44 Albumin Human 500 ml @ 500 mls/hr Q1HR IV ; Start 09/11/18 at 13:00; Stop at 17:59 Calcium Gluconate 2000 mg/Sodium Chloride 120 ml @ 220 mls/hr 1X ONCE IV ; Start 09/11/18 at 13:00; Stop 09/11/18 at 13:32 Active Scripts Active Cipro (Ciprofloxacin Hcl) 500 Mg Tablet 1 Tab PO BID Aspirin Ec (Aspirin) 81 Mg Tablet.dr 81 Mg PO DAILYWBKFT 30 Days Colace (Docusate Sodium) 100 Mg Capsule 100 Mg PO PRN DAILY PRN 30 Days Polyethylene Glycol 3350 17 Gm Powd.pack 17 Gm PO PRN DAILY PRN 14 Days Flomax (Tamsulosin Hcl) 0.4 Mg Cap.er.24h 0.4 Mg PO BID 30 Days Reported Percocet 5-325 Mg Tablet (Oxycodone/Acetaminophen) 1 Each Tablet 1-2 Tab PO Q4-6HRS Exforge 10-320 Mg Tablet (Amlodipine/Valsartan) 1 Each Tablet 1 Tab PO DAILY Crestor (Rosuvastatin Calcium) 10 Mg Tablet 1 Tab PO DAILY Toprol Xl (Metoprolol Succinate) 50 Mg Tab.er.24h 1 Tab PO DAILY Vitals/I & O Vital Sign - Last 24 Hours 09/10/18 09/10/18 09/10/18 09/10/18 15:10 16:58 19:00 20:10 Temp 97.6 97.7 97.6 97.7 Pulse 74 77 Resp 20 18 B/P (MAP) 147/83 (104) 137/81 (99) Pulse Ox 96 95 O2 Delivery Room Air Room Air Room Air Room Air 09/10/18 09/11/18 09/11/18 09/11/18 23:00 03:00 07:00 07:21 Temp 97.8 97.5 97.5 97.8 97.5 97.5 Pulse 68 71 68 Resp 18 18 18 B/P (MAP) 129/60 (83) 149/83 (105) 157/92 (113) Pulse Ox 96 96 96 O2 Delivery Room Air Room Air Room Air Room Air 09/11/18 09/11/18 09/11/18 09/11/18 08:19 08:20 08:20 08:20 Pulse 86 86 86 B/P (MAP) 124/64 124/64 124/64 Pulse Ox 96 O2 Delivery Room Air 09/11/18 09:11 O2 Delivery Room Air Intake and Output 09/10/18 09/10/18 09/11/18 14:59 22:59 06:59 Intake Total 320 ml 360 ml 1800 ml Output Total 2250 ml 750 ml Balance 320 ml -1890 ml 1050 ml MANDY COOMBS MD Sep 11, 2018 13:23
[2018-09-11] MEDS ORDERED: HEPARIN for IV BOLUS 10,000 UNIT/10 ML VIAL. IV ONE (13:30)
[2018-09-11] MEDS: ALBUMIN HUMAN 5% 500 ML IV SCH ×5 (14:00→17:00)
--- NOTE | 2018-09-11 14:21 | PDOC ---
PROGRESS NOTES Subjective Subjective having plasma exchange now feels that lower extremity strength is improved pain well controlled Objective Objective Vital Signs Date Time Temp Pulse Resp B/P (MAP) Pulse Ox O2 Delivery O2 Flow Rate FiO2 09/11/18 11:00 97.4 76 18 156/97 (116) 95 Room Air 97.4 Intake and Output 09/11/18 07:00 Intake Total 2480 ml Output Total 3000 ml Balance -520 ml Intake Oral 2480 ml Output Urine Total 3000 ml # Bowel Movements 1 Physical Exam General: Alert, Oriented X3, Cooperative, No acute distress MUSCULOSKELETAL: Other Neuro: Normal speech, Other (no significant change in exam) Plan Plan of Care continue plasma exchange per neurology PT encouraged turning antibiotics per ID d/w Dr. Cruz Comment Review of Relevant I have reviewed the following items franc (where applicable) has been applied. Labs Laboratory Tests Test 09/09/18 17:11 09/09/18 20:44 09/10/18 02:45 09/10/18 07:03 Glucose (Fingerstick) 163 mg/dL (70-99) 161 mg/dL (70-99) 150 mg/dL (70-99) White Blood Count 11.2 x10^3/uL (4.0-11.0) Red Blood Count 5.01 x10^6/uL (4.30-5.70) Hemoglobin 14.8 g/dL (13.0-17.5) Hematocrit 45.2 % (39.0-53.0) Mean Corpuscular Volume 90 fL (79-100) Mean Corpuscular Hemoglobin 30 pg (25-35) Mean Corpuscular Hemoglobin Concent 33 g/dL (31-37) Red Cell Distribution Width 14.3 % (11.5-14.5) Platelet Count 189 x10^3/uL (140-400) Neutrophils (%) (Auto) 90 % (31-73) Lymphocytes (%) (Auto) 5 % (24-48) Monocytes (%) (Auto) 5 % (0-9) Eosinophils (%) (Auto) 0 % (0-3) Basophils (%) (Auto) 0 % (0-3) Neutrophils # (Auto) 10.1 x10^3uL (1.8-7.7) Lymphocytes # (Auto) 0.5 x10^3/uL (1.0-4.8) Monocytes # (Auto) 0.6 x10^3/uL (0.0-1.1) Eosinophils # (Auto) 0.0 x10^3/uL (0.0-0.7) Basophils # (Auto) 0.0 x10^3/uL (0.0-0.2) Prothrombin Time 20.3 SEC (11.7-14.0) Prothromb Time International Ratio 1.8 (0.8-1.1) Activated Partial Thromboplast Time 35 SEC (24-38) Fibrinogen 82 mg/dL (200-440) Sodium Level 140 mmol/L (136-145) Potassium Level 4.2 mmol/L (3.5-5.1) Chloride Level 109 mmol/L (98-107) Carbon Dioxide Level 21 mmol/L (21-32) Anion Gap 10 (6-14) Blood Urea Nitrogen 31 mg/dL (8-26) Creatinine 0.8 mg/dL (0.7-1.3) Estimated GFR (Cockcroft-Gault) 97.0 Glucose Level 197 mg/dL (70-99) Calcium Level 7.5 mg/dL (8.5-10.1) Test 09/10/18 10:56 09/10/18 16:45 09/10/18 21:03 09/11/18 02:35 Glucose (Fingerstick) 165 mg/dL (70-99) 195 mg/dL (70-99) 165 mg/dL (70-99) White Blood Count 11.8 x10^3/uL (4.0-11.0) Red Blood Count 4.95 x10^6/uL (4.30-5.70) Hemoglobin 14.7 g/dL (13.0-17.5) Hematocrit 44.9 % (39.0-53.0) Mean Corpuscular Volume 91 fL (79-100) Mean Corpuscular Hemoglobin 30 pg (25-35) Mean Corpuscular Hemoglobin Concent 33 g/dL (31-37) Red Cell Distribution Width 14.6 % (11.5-14.5) Platelet Count 182 x10^3/uL (140-400) Neutrophils (%) (Auto) 82 % (31-73) Lymphocytes (%) (Auto) 7 % (24-48) Monocytes (%) (Auto) 11 % (0-9) Eosinophils (%) (Auto) 0 % (0-3) Basophils (%) (Auto) 0 % (0-3) Neutrophils # (Auto) 9.6 x10^3uL (1.8-7.7) Lymphocytes # (Auto) 0.8 x10^3/uL (1.0-4.8) Monocytes # (Auto) 1.3 x10^3/uL (0.0-1.1) Eosinophils # (Auto) 0.0 x10^3/uL (0.0-0.7) Basophils # (Auto) 0.0 x10^3/uL (0.0-0.2) Prothrombin Time 18.3 SEC (11.7-14.0) Prothromb Time International Ratio 1.6 (0.8-1.1) Activated Partial Thromboplast Time 29 SEC (24-38) Sodium Level 142 mmol/L (136-145) Potassium Level 4.0 mmol/L (3.5-5.1) Chloride Level 110 mmol/L (98-107) Carbon Dioxide Level 21 mmol/L (21-32) Anion Gap 11 (6-14) Blood Urea Nitrogen 26 mg/dL (8-26) Creatinine 0.8 mg/dL (0.7-1.3) Estimated GFR (Cockcroft-Gault) 97.0 BUN/Creatinine Ratio 33 (6-20) Glucose Level 127 mg/dL (70-99) Calcium Level 7.4 mg/dL (8.5-10.1) Magnesium Level 2.3 mg/dL (1.8-2.4) Total Bilirubin 0.6 mg/dL (0.2-1.0) Aspartate Amino Transf (AST/SGOT) 17 U/L (15-37) Alanine Aminotransferase (ALT/SGPT) 33 U/L (16-63) Alkaline Phosphatase 35 U/L (46-116) Total Protein 4.3 g/dL (6.4-8.2) Albumin 3.0 g/dL (3.4-5.0) Albumin/Globulin Ratio 2.3 (1.0-1.7) Test 09/11/18 07:38 09/11/18 11:12 09/11/18 11:15 Glucose (Fingerstick) 86 mg/dL (70-99) 104 mg/dL (70-99) Fibrinogen 125 mg/dL (200-440) Laboratory Tests Test 09/10/18 16:45 09/10/18 21:03 09/11/18 02:35 09/11/18 07:38 Glucose (Fingerstick) 195 mg/dL (70-99) 165 mg/dL (70-99) 86 mg/dL (70-99) White Blood Count 11.8 x10^3/uL (4.0-11.0) Red Blood Count 4.95 x10^6/uL (4.30-5.70) Hemoglobin 14.7 g/dL (13.0-17.5) Hematocrit 44.9 % (39.0-53.0) Mean Corpuscular Volume 91 fL (79-100) Mean Corpuscular Hemoglobin 30 pg (25-35) Mean Corpuscular Hemoglobin Concent 33 g/dL (31-37) Red Cell Distribution Width 14.6 % (11.5-14.5) Platelet Count 182 x10^3/uL (140-400) Neutrophils (%) (Auto) 82 % (31-73) Lymphocytes (%) (Auto) 7 % (24-48) Monocytes (%) (Auto) 11 % (0-9) Eosinophils (%) (Auto) 0 % (0-3) Basophils (%) (Auto) 0 % (0-3) Neutrophils # (Auto) 9.6 x10^3uL (1.8-7.7) Lymphocytes # (Auto) 0.8 x10^3/uL (1.0-4.8) Monocytes # (Auto) 1.3 x10^3/uL (0.0-1.1) Eosinophils # (Auto) 0.0 x10^3/uL (0.0-0.7) Basophils # (Auto) 0.0 x10^3/uL (0.0-0.2) Prothrombin Time 18.3 SEC (11.7-14.0) Prothromb Time International Ratio 1.6 (0.8-1.1) Activated Partial Thromboplast Time 29 SEC (24-38) Sodium Level 142 mmol/L (136-145) Potassium Level 4.0 mmol/L (3.5-5.1) Chloride Level 110 mmol/L (98-107) Carbon Dioxide Level 21 mmol/L (21-32) Anion Gap 11 (6-14) Blood Urea Nitrogen 26 mg/dL (8-26) Creatinine 0.8 mg/dL (0.7-1.3) Estimated GFR (Cockcroft-Gault) 97.0 BUN/Creatinine Ratio 33 (6-20) Glucose Level 127 mg/dL (70-99) Calcium Level 7.4 mg/dL (8.5-10.1) Magnesium Level 2.3 mg/dL (1.8-2.4) Total Bilirubin 0.6 mg/dL (0.2-1.0) Aspartate Amino Transf (AST/SGOT) 17 U/L (15-37) Alanine Aminotransferase (ALT/SGPT) 33 U/L (16-63) Alkaline Phosphatase 35 U/L (46-116) Total Protein 4.3 g/dL (6.4-8.2) Albumin 3.0 g/dL (3.4-5.0) Albumin/Globulin Ratio 2.3 (1.0-1.7) Test 09/11/18 11:12 09/11/18 11:15 Glucose (Fingerstick) 104 mg/dL (70-99) Fibrinogen 125 mg/dL (200-440) Microbiology 09/05/18 CSF Gram Stain - Final, Complete 09/03/18 Urine Culture - Final, Complete 09/03/18 Urine Culture Result 1 (LUIS M) - Final, Complete Medications Current Medications Gadobutrol (Gadavist) 10 mmol 1X ONCE IV Last administered on 09/03/18at 15:35 ; Start 09/03/18 at 15:15; Stop 09/03/18 at 15:16; Status DC Aspirin (Ecotrin) 81 mg DAILYWBKFT PO Last administered on 09/11/18at 08:18; Start 09/03/18 at 16:30 Docusate Sodium (Colace) 100 mg PRN DAILY PRN PO HARD STOOLS; Start 09/03/18 at 15:30 Tamsulosin HCl (Flomax) 0.4 mg BID PO Last administered on 09/08/18at 09:00; Start 09/03/18 at 21:00; Stop 09/08/18 at 10:46; Status DC Non-Formulary Medication (Amlodipine/ Valsartan (Exforge 10-320 Mg Tablet)) 1 tab DAILY PO ; Start 09/04/18 at 09:00; Status UNV Metoprolol Succinate (Toprol Xl) 50 mg DAILY PO Last administered on 09/11/18 08:20; Start 09/03/18 at 16:30 Polyethylene Glycol (miraLAX PACKET) 17 gm PRN DAILY PRN PO CONSTIPATION 2ND CHOICE; Start 09/04/18 at 09:00 Atorvastatin Calcium (Lipitor) 40 mg QHS PO Last administered on 09/05/18 21: 01; Start 09/03/18 at 21:00; Stop 09/06/18 at 15:52; Status DC Oxycodone/ Acetaminophen (Percocet 5/325) 1 tab PRN Q4HRS PRN PO PAIN; Start at 15:30; Stop 09/03/18 at 17:31; Status DC Amlodipine Besylate (Norvasc) 10 mg DAILY PO Last administered on 09/11/18 08: 20; Start 09/03/18 at 16:30 Losartan Potassium (Cozaar) 100 mg DAILY PO Last administered on 09/11/18 08:20 ; Start 09/03/18 at 16:30 Oxycodone/ Acetaminophen (Percocet 5/325) 1 tab PRN Q6HRS PRN PO MODERATE PAIN Last administered on 09/04/18 11:07; Start 09/03/18 at 17:30; Stop 09/04/18 at 13:35; Status DC Ciprofloxacin (Cipro) 500 mg BID PO Last administered on 09/05/18 08:27; Start 09/03/18 at 21:00; Stop 09/05/18 at 13:20; Status DC Oxycodone/ Acetaminophen (Percocet 5/325) 2 tab PRN Q6HRS PRN PO SEVERE PAIN; Start 09/03/18 at 17:45 Acetaminophen (Tylenol) 650 mg PRN Q4HRS PRN PO MILD PAIN Last administered on 09/03/18 21:01; Start 09/03/18 at 18:45 Enoxaparin Sodium (Lovenox 120mg Syringe) 120 mg Q12HR SQ Last administered on 09/04/18at 07:55; Start 09/04/18 at 09:00; Stop 09/04/18 at 15:42; Status DC Methylprednisolone (Medrol) 8 mg BID PO Last administered on 09/04/18at 11:06; Start 09/04/18 at 10:00; Stop 09/04/18 at 13:28; Status DC Methylprednisolone (Medrol) 4 mg BIDPCLD PO ; Start 09/04/18 at 12:30; Stop at 13:28; Status DC Methylprednisolone (Medrol) 4 mg TIDPC PO ; Start 09/05/18 at 08:30; Stop at 08:30; Status DC Methylprednisolone (Medrol) 8 mg QHS PO ; Start 09/05/18 at 21:00; Stop at 21:00; Status DC Methylprednisolone (Medrol) 4 mg QIDAFTMEAL PO ; Start 09/06/18 at 09:00; Stop 09/06/18 at 09:00; Status DC Methylprednisolone (Medrol) 4 mg TID PO ; Start 09/07/18 at 09:00; Stop at 09:00; Status DC Methylprednisolone (Medrol) 4 mg BID PO ; Start 09/08/18 at 09:00; Stop at 09:00; Status DC Methylprednisolone (Medrol) 4 mg DAILY PO ; Start 09/09/18 at 09:00; Stop at 09:00; Status DC Pantoprazole Sodium (Protonix) 40 mg DAILYAC PO Last administered on 09/11/18at 06:10; Start 09/04/18 at 10:00 Bisacodyl (Dulcolax Tab) 10 mg DAILY PO Last administered on 09/09/18at 08:25; Start 09/04/18 at 10:00 Bisacodyl (Dulcolax Supp) 10 mg PRN DAILY PRN OK CONSTIPATION 1ST RECTAL CHOICE Last administered on 09/04/18at 19:38; Start 09/04/18 at 09:30 Docusate Sodium (Enemeez) 283 mg PRN DAILY PRN OK CONSTIPATION 2ND RECTAL CHOICE; Start 09/04/18 at 09:30 Gadobutrol (Gadavist) 10 mmol 1X ONCE IV Last administered on 09/04/18at 13:26 ; Start 09/04/18 at 13:30; Stop 09/04/18 at 13:31; Status DC Methylprednisolone Sodium Succinate (SOLU-Medrol 125MG VIAL) 500 mg BID IV ; Start 09/04/18 at 21:00; Status UNV Methylprednisolone Sodium Succinate 500 mg/Sodium Chloride 100 ml @ 100 mls/hr Q12HR IV Last administered on 09/09/18 08:30; Start 09/04/18 at 21:00; Stop 09/09/18 at 11:59; Status DC Methylprednisolone Sodium Succinate 500 mg/Sodium Chloride 100 ml @ 100 mls/hr Q12HR IV ; Start 09/04/18 at 21:00; Status Cancel Oxycodone/ Acetaminophen (Percocet 5/325) 1 tab PRN Q4HRS PRN PO MODERATE PAIN Last administered on 09/11/18 08:19; Start 09/04/18 at 13:45 Hydrocortisone Acetate (Anucort-Hc) 25 mg PRN DAILY PRN OK RECTAL PAIN; Start 09/04/18 at 13:30 Enoxaparin Sodium (Lovenox 120mg Syringe) 110 mg Q12HR SQ Last administered on 09/05/18at 21:35; Start 09/04/18 at 21:00; Stop 09/06/18 at 06:49; Status DC Lactobacillus Rhamnosus (Culturelle) 1 cap BID PO Last administered on 08:17; Start 09/04/18 at 21:00 Cefepime HCl (Maxipime) 2 gm Q8HRS IVP Last administered on 09/11/18 05:08; Start 09/05/18 at 14:00 Vancomycin HCl (Vancomycin Oral Solution) 125 mg BID PO Last administered on 08:17; Start 09/05/18 at 21:00 Acyclovir Sodium 750 mg/Dextrose 265 ml @ 265 mls/hr Q8HRS IV Last administered on 09/11/18 05:28; Start 09/05/18 at 14:00 Doxycycline Hyclate (Vibra-Tab) 100 mg BID PO Last administered on 09/11/18 08: 18; Start 09/05/18 at 21:00 Info (Anti-Coagulation Monitoring By Pharmacy) 1 each PRN DAILY PRN MC SEE COMMENTS Last administered on 09/07/18 15:56; Start 09/05/18 at 14:00; Stop 09/10/18 at 15:10; Status DC Enoxaparin Sodium (Lovenox 120mg Syringe) 120 mg Q12HR SQ ; Start 09/06/18 at 06 :49; Status Cancel Enoxaparin Sodium (Lovenox 120mg Syringe) 120 mg Q12HR SQ Last administered on 09/06/18at 08:39; Start 09/06/18 at 09:00; Stop 09/06/18 at 16:44; Status DC Cetirizine HCl (ZyrTEC) 10 mg DAILY PO Last administered on 09/06/18at 15:12; Start 09/04/18 at 11:00; Stop 09/06/18 at 15:53; Status DC Insulin Human Lispro (HumaLOG) 0-7 UNITS TIDWMEALS SQ Last administered on at 17:00; Start 09/06/18 at 17:00 Dextrose (Dextrose 50%-Water Syringe) 12.5 gm PRN Q15MIN PRN IV SEE COMMENTS; Start 09/06/18 at 12:30 Multivitamins (Thera M Plus) 1 tab DAILY PO Last administered on 09/11/18 08:17 ; Start 09/06/18 at 14:00 Calcium Carbonate/ Glycine (Oscal) 500 mg DAILY PO Last administered on 08:18; Start 09/06/18 at 14:00 Thiamine Mononitrate (Vitamin B-1) 100 mg DAILY PO Last administered on 08:17; Start 09/06/18 at 14:00 Cetirizine HCl (ZyrTEC) 10 mg DAILY PO Last administered on 09/11/18 08:18; Start 09/06/18 at 15:00 Rivaroxaban (Xarelto) 15 mg BIDWMEALS PO Last administered on 09/06/18at 17:23; Start 09/06/18 at 17:00; Stop 09/07/18 at 08:22; Status DC Enoxaparin Sodium (Lovenox Per Pharmacy Treatment Dosing) 1 each PRN DAILY PRN MC SEE COMMENTS; Start 09/07/18 at 11:15; Stop 09/08/18 at 12:11; Status DC Enoxaparin Sodium (Lovenox 120mg Syringe) 120 mg Q12HR SQ Last administered on 09/08/18at 09:24; Start 09/07/18 at 11:15; Stop 09/08/18 at 12:10; Status DC Gabapentin (Neurontin) 100 mg TID PO Last administered on 09/08/18at 14:13; Start 09/07/18 at 21:00; Stop 09/08/18 at 16:27; Status DC Gabapentin (Neurontin) 300 mg TID PO Last administered on 09/11/18at 08:18; Start 09/08/18 at 21:00 Lidocaine/Sodium Bicarbonate (Buffered Lidocaine 1%) 3 ml STK-MED ONCE .ROUTE ; Start 09/09/18 at 08:52; Stop 09/09/18 at 08:53; Status DC Lidocaine/Sodium Bicarbonate (Buffered Lidocaine 1%) 3 ml 1X ONCE INJ Last administered on 09/09/18at 09:43; Start 09/09/18 at 09:30; Stop 09/09/18 at 09:31; Status DC Enoxaparin Sodium (Lovenox Per Pharmacy Prophylaxis Dosing) 1 each DAILY PRN MC SEE COMMENTS; Start 09/09/18 at 11:15 Enoxaparin Sodium (Lovenox 40mg Syringe) 40 mg DAILY SQ Last administered on 09/11/18at 08:19; Start 09/09/18 at 12:00 Prednisone (Prednisone) 70 mg DAILY PO Last administered on 09/11/18at 08:18; Start 09/09/18 at 12:00; Stop 09/15/18 at 09:01 Prednisone (Prednisone) 50 mg 1X ONCE PO ; Start 09/16/18 at 09:00; Stop at 09:01 Prednisone (Prednisone) 40 mg 1X ONCE PO ; Start 09/17/18 at 09:00; Stop at 09:01 Prednisone (Prednisone) 30 mg 1X ONCE PO ; Start 09/18/18 at 09:00; Stop at 09:01 Prednisone (Prednisone) 20 mg DAILY PO ; Start 09/19/18 at 09:00; Stop 09/21/18 at 09:01 Prednisone (Prednisone) 10 mg 1X ONCE PO ; Start 09/22/18 at 09:00; Stop at 09:01 Prednisone (Prednisone) 10 mg 1X ONCE PO ; Start 09/24/18 at 09:00; Stop at 09:01 Potassium Chloride (Klor-Con) 40 meq 1X STAT PO Last administered on 09/09/18at 13:54; Start 09/09/18 at 13:39; Stop 09/09/18 at 13:43; Status DC Albumin Human 3,000 ml @ 0 mls/hr 1X ONCE IV Last administered on 09/09/18at 15 :10; Start 09/09/18 at 14:00; Stop 09/09/18 at 14:01; Status DC Heparin Sodium (Porcine) (Heparin Sodium) 5,000 unit 1X ONCE IV Last administered on 09/09/18at 14:00; Start 09/09/18 at 14:00; Stop 09/09/18 at 14:01; Status DC Albumin Human 3,000 ml @ 0 mls/hr 1X ONCE IV Last administered on 09/10/18at 13 :03; Start 09/10/18 at 09:00; Stop 09/10/18 at 09:01; Status DC Calcium Gluconate 2000 mg/Dextrose 120 ml @ 220 mls/hr 1X ONCE IV Last administered on 09/10/18at 13:04; Start 09/10/18 at 08:45; Stop 09/10/18 at 09:17; Status DC Sodium Chloride 1,000 ml @ 500 mls/hr Q2H IV ; Start 09/11/18 at 12:45; Stop 09/11/18 at 15:44 Albumin Human 500 ml @ 500 mls/hr Q1HR IV ; Start 09/11/18 at 13:00; Stop at 17:59 Calcium Gluconate 2000 mg/Sodium Chloride 120 ml @ 220 mls/hr 1X ONCE IV ; Start 09/11/18 at 13:00; Stop 09/11/18 at 13:32; Status DC Heparin Sodium (Porcine) (Heparin Sodium) 5,000 unit 1X ONCE IV ; Start at 13:30; Stop 09/11/18 at 13:31; Status DC Heparin Sodium (Porcine) (Heparin Sodium) 10,000 unit STK-MED ONCE .ROUTE ; Start 09/11/18 at 13:27; Stop 09/11/18 at 13:28; Status DC Active Scripts Active Cipro (Ciprofloxacin Hcl) 500 Mg Tablet 1 Tab PO BID Aspirin Ec (Aspirin) 81 Mg Tablet.dr 81 Mg PO DAILYWBKFT 30 Days Colace (Docusate Sodium) 100 Mg Capsule 100 Mg PO PRN DAILY PRN 30 Days Polyethylene Glycol 3350 17 Gm Powd.pack 17 Gm PO PRN DAILY PRN 14 Days Flomax (Tamsulosin Hcl) 0.4 Mg Cap.er.24h 0.4 Mg PO BID 30 Days Reported Percocet 5-325 Mg Tablet (Oxycodone/Acetaminophen) 1 Each Tablet 1-2 Tab PO Q4-6HRS Exforge 10-320 Mg Tablet (Amlodipine/Valsartan) 1 Each Tablet 1 Tab PO DAILY Crestor (Rosuvastatin Calcium) 10 Mg Tablet 1 Tab PO DAILY Toprol Xl (Metoprolol Succinate) 50 Mg Tab.er.24h 1 Tab PO DAILY Vitals/I & O Vital Sign - Last 24 Hours 09/10/18 09/10/18 09/10/18 09/10/18 15:10 16:58 19:00 20:10 Temp 97.6 97.7 97.6 97.7 Pulse 74 77 Resp 20 18 B/P (MAP) 147/83 (104) 137/81 (99) Pulse Ox 96 95 O2 Delivery Room Air Room Air Room Air Room Air 09/10/18 09/11/18 09/11/18 09/11/18 23:00 03:00 07:00 07:21 Temp 97.8 97.5 97.5 97.8 97.5 97.5 Pulse 68 71 68 Resp 18 18 18 B/P (MAP) 129/60 (83) 149/83 (105) 157/92 (113) Pulse Ox 96 96 96 O2 Delivery Room Air Room Air Room Air Room Air 09/11/18 09/11/18 09/11/18 09/11/18 08:19 08:20 08:20 08:20 Pulse 86 86 86 B/P (MAP) 124/64 124/64 124/64 Pulse Ox 96 O2 Delivery Room Air 09/11/18 09/11/18 09:11 11:00 Temp 97.4 97.4 Pulse 76 Resp 18 B/P (MAP) 156/97 (116) Pulse Ox 95 O2 Delivery Room Air Room Air Intake and Output 09/10/18 09/10/18 09/11/18 15:00 23:00 07:00 Intake Total 320 ml 360 ml 1800 ml Output Total 2250 ml 750 ml Balance 320 ml -1890 ml 1050 ml FELICITY DORANTES MD Sep 11, 2018 14:21
[2018-09-11 19:00] VITALS: BP 121/79
[2018-09-11 23:00] VITALS: BP 130/79
[2018-09-12 03:00] VITALS: BP 133/75
[2018-09-12 05:46] LABS: BASO % 0 % (0-3); EOS # 0.1 x10^3/uL (0.0-0.7); EOS % 1 % (0-3); HEMATOCRIT 45.1 % (39.0-53.0); HEMOGLOBIN 14.8 g/dL (13.0-17.5); LYMPH # 1.4 x10^3/uL (1.0-4.8); LYMPH % 11 % (24-48); MEAN CORPUSCULAR HEMOGLOBIN 30 pg (25-35); MEAN CORPUSCULAR HGB CONC 33 g/dL (31-37); MEAN CORPUSCULAR VOLUME 90 fL (79-100); MONO # 1.5 x10^3/uL (0.0-1.1); MONO % 12 % (0-9); NEUT # 9.5 x10^3uL (1.8-7.7); NEUT % 75 % (31-73); PLATELET COUNT 155 x10^3/uL (140-400); RED CELL DISTRIBUTION WIDTH 14.5 % (11.5-14.5); WHITE BLOOD COUNT 12.6 x10^3/uL (4.0-11.0)
[2018-09-12] MEDS: DEXTROSE 5% IV SCH ×3 (05:57→21:29)
[2018-09-12] MEDS: CEFEPIME HCL IV Push 2 GM VIAL. IVP SCH ×3 (05:57→21:29)
[2018-09-12] MEDS: ACYCLOVIR SODIUM IV SCH ×3 (05:57→21:29)
[2018-09-12] MEDS: PANTOPRAZOLE 40 MG TABLET.DR. PO SCH (05:57)
[2018-09-12 05:58] LABS: PROTHROMBIN TIME PATIENT 17.8 SEC (11.7-14.0)
[2018-09-12 06:05] LABS: ALBUMIN 2.8 g/dL (3.4-5.0); CALCIUM 7.5 mg/dL (8.5-10.1); MAGNESIUM 2.4 mg/dL (1.8-2.4)
--- NOTE | 2018-09-12 06:19 | NUR ---
Received notification from Chloe in Lab of a critical fibrinogen level of 95. Dr. Baez office was paged at 0612. Dr. Baez returned call at 0617. After a discussion in regards to the patient, and current status of scheduled FFP transfusions no new orders were received. Dr. Baez agree to order a DO NOT CALL ORDER on the fibrinogen level, due to current treatment plan in place for patient. Will continue to monitor the patient.
[2018-09-12 07:00] VITALS: BP 131/86
[2018-09-12] MEDS: INSULIN LISPRO 300 UNITS/3 ML INSULN.PEN. SQ SCH ×3 (07:54→17:11)
[2018-09-12] MEDS: predniSONE 20 MG TABLET PO SCH (07:55)
[2018-09-12] MEDS: LACTOBACILLUS RHAMNOSUS GG 1 CAPSULE. PO SCH ×2 (07:55→20:47)
[2018-09-12] MEDS: THIAMINE 100 MG TABLET. PO SCH (07:55)
[2018-09-12] MEDS: CALCIUM CARBONATE 500 MG TABLET PO SCH (07:55)
[2018-09-12] MEDS: GABAPENTIN 100 MG CAPSULE. PO SCH ×3 (07:55→20:47)
[2018-09-12] MEDS: ASPIRIN ENTERIC COATED 81 MG TABLET.DR. PO SCH (07:56)
[2018-09-12] MEDS: LOSARTAN POTASSIUM 50 MG TABLET. PO SCH ×2 (07:56→15:16)
[2018-09-12] MEDS: oxyCODONE/APAP 5/325 1 TAB TABLET PO PRN ×2 (07:56→15:17)
[2018-09-12] MEDS: MULTIVITAMIN with MINERAL TABLET. PO SCH (07:56)
[2018-09-12] MEDS: DOXYCYCLINE HYCLATE 100 MG TABLET PO SCH ×2 (07:56→20:47)
[2018-09-12] MEDS: CETIRIZINE HCL 10 MG TABLET. PO SCH (07:56)
[2018-09-12] MEDS: METOPROLOL SUCC 24HR ER 50 MG TAB.ER.24H. PO SCH ×2 (07:57→15:15)
[2018-09-12] MEDS: amLODIPine BESYLATE 10 MG TABLET PO SCH ×2 (07:57→15:16)
[2018-09-12] MEDS: BISACODYL 5 MG TABLET.DR. PO SCH (07:57)
[2018-09-12] MEDS: ENOXAPARIN 40 MG/0.4 ML SYRINGE. SQ SCH (07:58)
--- NOTE | 2018-09-12 08:05 | PDOC ---
PROGRESS NOTES Chief Complaint Chief Complaint Transverse myelitis- Cauda Equina Syndrome Bilateral LE weakness S/p laminectomy (06/2018) L3-L5 Recent admission for UTI/C.Diff (07/2018) Neurogenic bladder- requiring straight cath x2 months Hyperlipidemia Essential hypertension leukocytosis from steroids Recurrent urinary tract infection, 07/2018 pansensitive Escherichia coli, treated with ciprofloxacin. History of Clostridium difficile, 07/2018, treated, no recurrence. Status post laminectomy, 06/30/2018, L3-L5. Bilateral lower extremity weakness. Hyperlipidemia. Hypertension. Hyperglycemia. Non-occlusive thrombus, right posterior tibial and peroneal vein H/O seasonal allergies. History of Present Illness History of Present Illness S/p PICC line trialysis catheter 09/09 and feels improved after plasmapheresis x3 A bit less weak, no vomiting, some worse LE edema, better with ambulating, then raising. Able to put his knees together now. Denies CP or SOB. He is going to his 4th session of pheresis today Plan: Cefepime, acyclovir and doxycycline since 09/05 as well as steroids per ID, awaiting final culture and serology data p.o. vancomycin prophylaxis, b.i.d. dosing. Awaiting plasmapheresis again today - will be 5 total sessions likely can discharge this coming sunday (tomorrow) most likely. Will d/w neurology Vitals Vitals Vital Signs Date Time Temp Pulse Resp B/P (MAP) Pulse Ox O2 Delivery O2 Flow Rate FiO2 09/12/18 03:00 97.8 66 18 133/75 (94) 94 Room Air 97.8 Physical Exam Physical Exam GENERAL: Propped up in bed, alert, smiling HEENT: Oropharynx clear NECK: Supple. LUNGS: Clear bilaterally. No wheezing. HEART: S1, S2. ABDOMEN: Obese, soft, NT EXTREMITIES: Bilateral trace pedal edema. NEUROLOGIC: Alert and oriented x 3. Lower extremity weakness bilaterally can move LLE better and ? more with right SPINE: Back incision well healed, nontender. No surrounding redness or erythema. SKIN: Warm, dry. No generalized rash. PIV, right forearm, new. R subclavian clean trace bleed - General: Alert, Oriented X3, Cooperative, No acute distress Heart: Regular rate Lungs: Clear Abdomen: Normal bowel sounds, Soft, No tenderness Extremities: No clubbing, No cyanosis Labs LABS Laboratory Tests Test 09/11/18 11:12 09/11/18 11:15 09/11/18 16:46 09/11/18 20:59 Glucose (Fingerstick) 104 mg/dL (70-99) 118 mg/dL (70-99) 128 mg/dL (70-99) Fibrinogen 125 mg/dL (200-440) Test 09/12/18 05:00 White Blood Count 12.6 x10^3/uL (4.0-11.0) Red Blood Count 5.00 x10^6/uL (4.30-5.70) Hemoglobin 14.8 g/dL (13.0-17.5) Hematocrit 45.1 % (39.0-53.0) Mean Corpuscular Volume 90 fL (79-100) Mean Corpuscular Hemoglobin 30 pg (25-35) Mean Corpuscular Hemoglobin Concent 33 g/dL (31-37) Red Cell Distribution Width 14.5 % (11.5-14.5) Platelet Count 155 x10^3/uL (140-400) Neutrophils (%) (Auto) 75 % (31-73) Lymphocytes (%) (Auto) 11 % (24-48) Monocytes (%) (Auto) 12 % (0-9) Eosinophils (%) (Auto) 1 % (0-3) Basophils (%) (Auto) 0 % (0-3) Neutrophils # (Auto) 9.5 x10^3uL (1.8-7.7) Lymphocytes # (Auto) 1.4 x10^3/uL (1.0-4.8) Monocytes # (Auto) 1.5 x10^3/uL (0.0-1.1) Eosinophils # (Auto) 0.1 x10^3/uL (0.0-0.7) Basophils # (Auto) 0.0 x10^3/uL (0.0-0.2) Prothrombin Time 17.8 SEC (11.7-14.0) Prothromb Time International Ratio 1.5 (0.8-1.1) Activated Partial Thromboplast Time 31 SEC (24-38) Fibrinogen 95 mg/dL (200-440) Sodium Level 144 mmol/L (136-145) Potassium Level 4.0 mmol/L (3.5-5.1) Chloride Level 112 mmol/L (98-107) Carbon Dioxide Level 22 mmol/L (21-32) Anion Gap 10 (6-14) Calcium Level 7.5 mg/dL (8.5-10.1) Magnesium Level 2.4 mg/dL (1.8-2.4) Albumin 2.8 g/dL (3.4-5.0) Comment Review of Relevant I have reviewed the following items franc (where applicable) has been applied. Labs Laboratory Tests Test 09/10/18 10:56 09/10/18 16:45 09/10/18 21:03 09/11/18 02:35 Glucose (Fingerstick) 165 mg/dL (70-99) 195 mg/dL (70-99) 165 mg/dL (70-99) White Blood Count 11.8 x10^3/uL (4.0-11.0) Red Blood Count 4.95 x10^6/uL (4.30-5.70) Hemoglobin 14.7 g/dL (13.0-17.5) Hematocrit 44.9 % (39.0-53.0) Mean Corpuscular Volume 91 fL (79-100) Mean Corpuscular Hemoglobin 30 pg (25-35) Mean Corpuscular Hemoglobin Concent 33 g/dL (31-37) Red Cell Distribution Width 14.6 % (11.5-14.5) Platelet Count 182 x10^3/uL (140-400) Neutrophils (%) (Auto) 82 % (31-73) Lymphocytes (%) (Auto) 7 % (24-48) Monocytes (%) (Auto) 11 % (0-9) Eosinophils (%) (Auto) 0 % (0-3) Basophils (%) (Auto) 0 % (0-3) Neutrophils # (Auto) 9.6 x10^3uL (1.8-7.7) Lymphocytes # (Auto) 0.8 x10^3/uL (1.0-4.8) Monocytes # (Auto) 1.3 x10^3/uL (0.0-1.1) Eosinophils # (Auto) 0.0 x10^3/uL (0.0-0.7) Basophils # (Auto) 0.0 x10^3/uL (0.0-0.2) Prothrombin Time 18.3 SEC (11.7-14.0) Prothromb Time International Ratio 1.6 (0.8-1.1) Activated Partial Thromboplast Time 29 SEC (24-38) Sodium Level 142 mmol/L (136-145) Potassium Level 4.0 mmol/L (3.5-5.1) Chloride Level 110 mmol/L (98-107) Carbon Dioxide Level 21 mmol/L (21-32) Anion Gap 11 (6-14) Blood Urea Nitrogen 26 mg/dL (8-26) Creatinine 0.8 mg/dL (0.7-1.3) Estimated GFR (Cockcroft-Gault) 97.0 BUN/Creatinine Ratio 33 (6-20) Glucose Level 127 mg/dL (70-99) Calcium Level 7.4 mg/dL (8.5-10.1) Magnesium Level 2.3 mg/dL (1.8-2.4) Total Bilirubin 0.6 mg/dL (0.2-1.0) Aspartate Amino Transf (AST/SGOT) 17 U/L (15-37) Alanine Aminotransferase (ALT/SGPT) 33 U/L (16-63) Alkaline Phosphatase 35 U/L (46-116) Total Protein 4.3 g/dL (6.4-8.2) Albumin 3.0 g/dL (3.4-5.0) Albumin/Globulin Ratio 2.3 (1.0-1.7) Hepatitis B Surface Antigen Nonreactive (Nonreactive) Test 09/11/18 07:38 09/11/18 11:12 09/11/18 11:15 09/11/18 16:46 Glucose (Fingerstick) 86 mg/dL (70-99) 104 mg/dL (70-99) 118 mg/dL (70-99) Fibrinogen 125 mg/dL (200-440) Test 09/11/18 20:59 09/12/18 05:00 Glucose (Fingerstick) 128 mg/dL (70-99) White Blood Count 12.6 x10^3/uL (4.0-11.0) Red Blood Count 5.00 x10^6/uL (4.30-5.70) Hemoglobin 14.8 g/dL (13.0-17.5) Hematocrit 45.1 % (39.0-53.0) Mean Corpuscular Volume 90 fL (79-100) Mean Corpuscular Hemoglobin 30 pg (25-35) Mean Corpuscular Hemoglobin Concent 33 g/dL (31-37) Red Cell Distribution Width 14.5 % (11.5-14.5) Platelet Count 155 x10^3/uL (140-400) Neutrophils (%) (Auto) 75 % (31-73) Lymphocytes (%) (Auto) 11 % (24-48) Monocytes (%) (Auto) 12 % (0-9) Eosinophils (%) (Auto) 1 % (0-3) Basophils (%) (Auto) 0 % (0-3) Neutrophils # (Auto) 9.5 x10^3uL (1.8-7.7) Lymphocytes # (Auto) 1.4 x10^3/uL (1.0-4.8) Monocytes # (Auto) 1.5 x10^3/uL (0.0-1.1) Eosinophils # (Auto) 0.1 x10^3/uL (0.0-0.7) Basophils # (Auto) 0.0 x10^3/uL (0.0-0.2) Prothrombin Time 17.8 SEC (11.7-14.0) Prothromb Time International Ratio 1.5 (0.8-1.1) Activated Partial Thromboplast Time 31 SEC (24-38) Fibrinogen 95 mg/dL (200-440) Sodium Level 144 mmol/L (136-145) Potassium Level 4.0 mmol/L (3.5-5.1) Chloride Level 112 mmol/L (98-107) Carbon Dioxide Level 22 mmol/L (21-32) Anion Gap 10 (6-14) Calcium Level 7.5 mg/dL (8.5-10.1) Magnesium Level 2.4 mg/dL (1.8-2.4) Albumin 2.8 g/dL (3.4-5.0) Laboratory Tests Test 09/11/18 11:12 09/11/18 11:15 09/11/18 16:46 09/11/18 20:59 Glucose (Fingerstick) 104 mg/dL (70-99) 118 mg/dL (70-99) 128 mg/dL (70-99) Fibrinogen 125 mg/dL (200-440) Test 09/12/18 05:00 White Blood Count 12.6 x10^3/uL (4.0-11.0) Red Blood Count 5.00 x10^6/uL (4.30-5.70) Hemoglobin 14.8 g/dL (13.0-17.5) Hematocrit 45.1 % (39.0-53.0) Mean Corpuscular Volume 90 fL (79-100) Mean Corpuscular Hemoglobin 30 pg (25-35) Mean Corpuscular Hemoglobin Concent 33 g/dL (31-37) Red Cell Distribution Width 14.5 % (11.5-14.5) Platelet Count 155 x10^3/uL (140-400) Neutrophils (%) (Auto) 75 % (31-73) Lymphocytes (%) (Auto) 11 % (24-48) Monocytes (%) (Auto) 12 % (0-9) Eosinophils (%) (Auto) 1 % (0-3) Basophils (%) (Auto) 0 % (0-3) Neutrophils # (Auto) 9.5 x10^3uL (1.8-7.7) Lymphocytes # (Auto) 1.4 x10^3/uL (1.0-4.8) Monocytes # (Auto) 1.5 x10^3/uL (0.0-1.1) Eosinophils # (Auto) 0.1 x10^3/uL (0.0-0.7) Basophils # (Auto) 0.0 x10^3/uL (0.0-0.2) Prothrombin Time 17.8 SEC (11.7-14.0) Prothromb Time International Ratio 1.5 (0.8-1.1) Activated Partial Thromboplast Time 31 SEC (24-38) Fibrinogen 95 mg/dL (200-440) Sodium Level 144 mmol/L (136-145) Potassium Level 4.0 mmol/L (3.5-5.1) Chloride Level 112 mmol/L (98-107) Carbon Dioxide Level 22 mmol/L (21-32) Anion Gap 10 (6-14) Calcium Level 7.5 mg/dL (8.5-10.1) Magnesium Level 2.4 mg/dL (1.8-2.4) Albumin 2.8 g/dL (3.4-5.0) Microbiology 09/05/18 CSF Gram Stain - Final, Complete 09/03/18 Urine Culture - Final, Complete 09/03/18 Urine Culture Result 1 (LUIS M) - Final, Complete Medications Current Medications Gadobutrol (Gadavist) 10 mmol 1X ONCE IV Last administered on 09/03/18at 15:35 ; Start 09/03/18 at 15:15; Stop 09/03/18 at 15:16; Status DC Aspirin (Ecotrin) 81 mg DAILYWBKFT PO Last administered on 09/12/18at 07:56; Start 09/03/18 at 16:30 Docusate Sodium (Colace) 100 mg PRN DAILY PRN PO HARD STOOLS; Start 09/03/18 at 15:30 Tamsulosin HCl (Flomax) 0.4 mg BID PO Last administered on 09/08/18at 09:00; Start 09/03/18 at 21:00; Stop 09/08/18 at 10:46; Status DC Non-Formulary Medication (Amlodipine/ Valsartan (Exforge 10-320 Mg Tablet)) 1 tab DAILY PO ; Start 09/04/18 at 09:00; Status UNV Metoprolol Succinate (Toprol Xl) 50 mg DAILY PO Last administered on 09/11/18 08:20; Start 09/03/18 at 16:30 Polyethylene Glycol (miraLAX PACKET) 17 gm PRN DAILY PRN PO CONSTIPATION 2ND CHOICE; Start 09/04/18 at 09:00 Atorvastatin Calcium (Lipitor) 40 mg QHS PO Last administered on 09/05/18at 21: 01; Start 09/03/18 at 21:00; Stop 09/06/18 at 15:52; Status DC Oxycodone/ Acetaminophen (Percocet 5/325) 1 tab PRN Q4HRS PRN PO PAIN; Start at 15:30; Stop 09/03/18 at 17:31; Status DC Amlodipine Besylate (Norvasc) 10 mg DAILY PO Last administered on 09/11/18 08: 20; Start 09/03/18 at 16:30 Losartan Potassium (Cozaar) 100 mg DAILY PO Last administered on 09/11/18 08:20 ; Start 09/03/18 at 16:30 Oxycodone/ Acetaminophen (Percocet 5/325) 1 tab PRN Q6HRS PRN PO MODERATE PAIN Last administered on 09/04/18at 11:07; Start 09/03/18 at 17:30; Stop 09/04/18 at 13:35; Status DC Ciprofloxacin (Cipro) 500 mg BID PO Last administered on 09/05/18at 08:27; Start 09/03/18 at 21:00; Stop 09/05/18 at 13:20; Status DC Oxycodone/ Acetaminophen (Percocet 5/325) 2 tab PRN Q6HRS PRN PO SEVERE PAIN; Start 09/03/18 at 17:45 Acetaminophen (Tylenol) 650 mg PRN Q4HRS PRN PO MILD PAIN Last administered on 09/03/18at 21:01; Start 09/03/18 at 18:45 Enoxaparin Sodium (Lovenox 120mg Syringe) 120 mg Q12HR SQ Last administered on 09/04/18at 07:55; Start 09/04/18 at 09:00; Stop 09/04/18 at 15:42; Status DC Methylprednisolone (Medrol) 8 mg BID PO Last administered on 09/04/18at 11:06; Start 09/04/18 at 10:00; Stop 09/04/18 at 13:28; Status DC Methylprednisolone (Medrol) 4 mg BIDPCLD PO ; Start 09/04/18 at 12:30; Stop at 13:28; Status DC Methylprednisolone (Medrol) 4 mg TIDPC PO ; Start 09/05/18 at 08:30; Stop at 08:30; Status DC Methylprednisolone (Medrol) 8 mg QHS PO ; Start 09/05/18 at 21:00; Stop at 21:00; Status DC Methylprednisolone (Medrol) 4 mg QIDAFTMEAL PO ; Start 09/06/18 at 09:00; Stop 09/06/18 at 09:00; Status DC Methylprednisolone (Medrol) 4 mg TID PO ; Start 09/07/18 at 09:00; Stop at 09:00; Status DC Methylprednisolone (Medrol) 4 mg BID PO ; Start 09/08/18 at 09:00; Stop at 09:00; Status DC Methylprednisolone (Medrol) 4 mg DAILY PO ; Start 09/09/18 at 09:00; Stop at 09:00; Status DC Pantoprazole Sodium (Protonix) 40 mg DAILYAC PO Last administered on 09/12/18at 05:57; Start 09/04/18 at 10:00 Bisacodyl (Dulcolax Tab) 10 mg DAILY PO Last administered on 09/09/18at 08:25; Start 09/04/18 at 10:00 Bisacodyl (Dulcolax Supp) 10 mg PRN DAILY PRN RI CONSTIPATION 1ST RECTAL CHOICE Last administered on 09/04/18at 19:38; Start 09/04/18 at 09:30 Docusate Sodium (Enemeez) 283 mg PRN DAILY PRN RI CONSTIPATION 2ND RECTAL CHOICE; Start 09/04/18 at 09:30 Gadobutrol (Gadavist) 10 mmol 1X ONCE IV Last administered on 09/04/18at 13:26 ; Start 09/04/18 at 13:30; Stop 09/04/18 at 13:31; Status DC Methylprednisolone Sodium Succinate (SOLU-Medrol 125MG VIAL) 500 mg BID IV ; Start 09/04/18 at 21:00; Status UNV Methylprednisolone Sodium Succinate 500 mg/Sodium Chloride 100 ml @ 100 mls/hr Q12HR IV Last administered on 09/09/18at 08:30; Start 09/04/18 at 21:00; Stop 09/09/18 at 11:59; Status DC Methylprednisolone Sodium Succinate 500 mg/Sodium Chloride 100 ml @ 100 mls/hr Q12HR IV ; Start 09/04/18 at 21:00; Status Cancel Oxycodone/ Acetaminophen (Percocet 5/325) 1 tab PRN Q4HRS PRN PO MODERATE PAIN Last administered on 09/12/18at 07:56; Start 09/04/18 at 13:45 Hydrocortisone Acetate (Anucort-Hc) 25 mg PRN DAILY PRN RI RECTAL PAIN; Start 09/04/18 at 13:30 Enoxaparin Sodium (Lovenox 120mg Syringe) 110 mg Q12HR SQ Last administered on 09/05/18at 21:35; Start 09/04/18 at 21:00; Stop 09/06/18 at 06:49; Status DC Lactobacillus Rhamnosus (Culturelle) 1 cap BID PO Last administered on 07:55; Start 09/04/18 at 21:00 Cefepime HCl (Maxipime) 2 gm Q8HRS IVP Last administered on 09/12/18 05:57; Start 09/05/18 at 14:00 Vancomycin HCl (Vancomycin Oral Solution) 125 mg BID PO Last administered on 21:13; Start 09/05/18 at 21:00 Acyclovir Sodium 750 mg/Dextrose 265 ml @ 265 mls/hr Q8HRS IV Last administered on 09/12/18 05:57; Start 09/05/18 at 14:00 Doxycycline Hyclate (Vibra-Tab) 100 mg BID PO Last administered on 09/12/18 07: 56; Start 09/05/18 at 21:00 Info (Anti-Coagulation Monitoring By Pharmacy) 1 each PRN DAILY PRN MC SEE COMMENTS Last administered on 09/07/18 15:56; Start 09/05/18 at 14:00; Stop 09/10/18 at 15:10; Status DC Enoxaparin Sodium (Lovenox 120mg Syringe) 120 mg Q12HR SQ ; Start 09/06/18 at 06 :49; Status Cancel Enoxaparin Sodium (Lovenox 120mg Syringe) 120 mg Q12HR SQ Last administered on 09/06/18 08:39; Start 09/06/18 at 09:00; Stop 09/06/18 at 16:44; Status DC Cetirizine HCl (ZyrTEC) 10 mg DAILY PO Last administered on 09/06/18at 15:12; Start 09/04/18 at 11:00; Stop 09/06/18 at 15:53; Status DC Insulin Human Lispro (HumaLOG) 0-7 UNITS TIDWMEALS SQ Last administered on 17:00; Start 09/06/18 at 17:00 Dextrose (Dextrose 50%-Water Syringe) 12.5 gm PRN Q15MIN PRN IV SEE COMMENTS; Start 09/06/18 at 12:30 Multivitamins (Thera M Plus) 1 tab DAILY PO Last administered on 09/12/18 07:56 ; Start 09/06/18 at 14:00 Calcium Carbonate/ Glycine (Oscal) 500 mg DAILY PO Last administered on 07:55; Start 09/06/18 at 14:00 Thiamine Mononitrate (Vitamin B-1) 100 mg DAILY PO Last administered on 07:55; Start 09/06/18 at 14:00 Cetirizine HCl (ZyrTEC) 10 mg DAILY PO Last administered on 09/12/18 07:56; Start 09/06/18 at 15:00 Rivaroxaban (Xarelto) 15 mg BIDWMEALS PO Last administered on 09/06/18 17:23; Start 09/06/18 at 17:00; Stop 09/07/18 at 08:22; Status DC Enoxaparin Sodium (Lovenox Per Pharmacy Treatment Dosing) 1 each PRN DAILY PRN MC SEE COMMENTS; Start 09/07/18 at 11:15; Stop 09/08/18 at 12:11; Status DC Enoxaparin Sodium (Lovenox 120mg Syringe) 120 mg Q12HR SQ Last administered on 09/08/18 09:24; Start 09/07/18 at 11:15; Stop 09/08/18 at 12:10; Status DC Gabapentin (Neurontin) 100 mg TID PO Last administered on 09/08/18 14:13; Start 09/07/18 at 21:00; Stop 09/08/18 at 16:27; Status DC Gabapentin (Neurontin) 300 mg TID PO Last administered on 09/12/18 07:55; Start 09/08/18 at 21:00 Lidocaine/Sodium Bicarbonate (Buffered Lidocaine 1%) 3 ml STK-MED ONCE .ROUTE ; Start 09/09/18 at 08:52; Stop 09/09/18 at 08:53; Status DC Lidocaine/Sodium Bicarbonate (Buffered Lidocaine 1%) 3 ml 1X ONCE INJ Last administered on 09/09/18 09:43; Start 09/09/18 at 09:30; Stop 09/09/18 at 09:31; Status DC Enoxaparin Sodium (Lovenox Per Pharmacy Prophylaxis Dosing) 1 each DAILY PRN MC SEE COMMENTS; Start 09/09/18 at 11:15 Enoxaparin Sodium (Lovenox 40mg Syringe) 40 mg DAILY SQ Last administered on 07:58; Start 09/09/18 at 12:00 Prednisone (Prednisone) 70 mg DAILY PO Last administered on 09/12/18at 07:55; Start 09/09/18 at 12:00; Stop 09/15/18 at 09:01 Prednisone (Prednisone) 50 mg 1X ONCE PO ; Start 09/16/18 at 09:00; Stop at 09:01 Prednisone (Prednisone) 40 mg 1X ONCE PO ; Start 09/17/18 at 09:00; Stop at 09:01 Prednisone (Prednisone) 30 mg 1X ONCE PO ; Start 09/18/18 at 09:00; Stop at 09:01 Prednisone (Prednisone) 20 mg DAILY PO ; Start 09/19/18 at 09:00; Stop 09/21/18 at 09:01 Prednisone (Prednisone) 10 mg 1X ONCE PO ; Start 09/22/18 at 09:00; Stop at 09:01 Prednisone (Prednisone) 10 mg 1X ONCE PO ; Start 09/24/18 at 09:00; Stop at 09:01 Potassium Chloride (Klor-Con) 40 meq 1X STAT PO Last administered on 09/09/18at 13:54; Start 09/09/18 at 13:39; Stop 09/09/18 at 13:43; Status DC Albumin Human 3,000 ml @ 0 mls/hr 1X ONCE IV Last administered on 09/09/18at 15 :10; Start 09/09/18 at 14:00; Stop 09/09/18 at 14:01; Status DC Heparin Sodium (Porcine) (Heparin Sodium) 5,000 unit 1X ONCE IV Last administered on 09/09/18at 14:00; Start 09/09/18 at 14:00; Stop 09/09/18 at 14:01; Status DC Albumin Human 3,000 ml @ 0 mls/hr 1X ONCE IV Last administered on 09/10/18at 13 :03; Start 09/10/18 at 09:00; Stop 09/10/18 at 09:01; Status DC Calcium Gluconate 2000 mg/Dextrose 120 ml @ 220 mls/hr 1X ONCE IV Last administered on 09/10/18at 13:04; Start 09/10/18 at 08:45; Stop 09/10/18 at 09:17; Status DC Sodium Chloride 1,000 ml @ 500 mls/hr Q2H IV ; Start 09/11/18 at 12:45; Stop 09/11/18 at 15:44; Status DC Albumin Human 500 ml @ 500 mls/hr Q1HR IV Last administered on 09/11/18at 14:03 ; Start 09/11/18 at 13:00; Stop 09/11/18 at 17:59; Status DC Calcium Gluconate 2000 mg/Sodium Chloride 120 ml @ 220 mls/hr 1X ONCE IV Last administered on 09/11/18at 14:05; Start 09/11/18 at 13:00; Stop 09/11/18 at 13: 32; Status DC Heparin Sodium (Porcine) (Heparin Sodium) 5,000 unit 1X ONCE IV Last administered on 09/11/18at 14:02; Start 09/11/18 at 13:30; Stop 09/11/18 at 13:31; Status DC Heparin Sodium (Porcine) (Heparin Sodium) 10,000 unit STK-MED ONCE .ROUTE ; Start 09/11/18 at 13:27; Stop 09/11/18 at 13:28; Status DC Albumin Human 2,500 ml @ 500 mls/hr 1X ONCE IV ; Start 09/12/18 at 08:30; Stop 09/12/18 at 13:29 Calcium Gluconate 2000 mg/Sodium Chloride 120 ml @ 120 mls/hr 1X ONCE IV ; Start 09/12/18 at 08:30; Stop 09/12/18 at 09:29 Heparin Sodium (Porcine) (Heparin Sodium) 5,000 unit 1X ONCE IV ; Start at 08:30; Stop 09/12/18 at 08:31 Active Scripts Active Cipro (Ciprofloxacin Hcl) 500 Mg Tablet 1 Tab PO BID Aspirin Ec (Aspirin) 81 Mg Tablet.dr 81 Mg PO DAILYWBKFT 30 Days Colace (Docusate Sodium) 100 Mg Capsule 100 Mg PO PRN DAILY PRN 30 Days Polyethylene Glycol 3350 17 Gm Powd.pack 17 Gm PO PRN DAILY PRN 14 Days Flomax (Tamsulosin Hcl) 0.4 Mg Cap.er.24h 0.4 Mg PO BID 30 Days Reported Percocet 5-325 Mg Tablet (Oxycodone/Acetaminophen) 1 Each Tablet 1-2 Tab PO Q4-6HRS Exforge 10-320 Mg Tablet (Amlodipine/Valsartan) 1 Each Tablet 1 Tab PO DAILY Crestor (Rosuvastatin Calcium) 10 Mg Tablet 1 Tab PO DAILY Toprol Xl (Metoprolol Succinate) 50 Mg Tab.er.24h 1 Tab PO DAILY Vitals/I & O Vital Sign - Last 24 Hours 09/11/18 09/11/18 09/11/18 09/11/18 08:19 08:20 08:20 08:20 Pulse 86 86 86 B/P (MAP) 124/64 124/64 124/64 Pulse Ox 96 O2 Delivery Room Air 09/11/18 09/11/18 09/11/18 09/11/18 11:00 18:40 19:00 20:00 Temp 97.4 97.7 97.4 97.7 Pulse 76 64 Resp 18 16 18 B/P (MAP) 156/97 (116) 121/79 (93) Pulse Ox 95 94 O2 Delivery Room Air Room Air Room Air 09/11/18 09/11/18 09/11/18 09/12/18 21:14 22:14 23:00 03:00 Temp 97.9 97.8 97.9 97.8 Pulse 66 66 Resp 18 18 B/P (MAP) 130/79 (96) 133/75 (94) Pulse Ox 94 94 95 94 O2 Delivery Room Air Room Air Room Air Room Air Intake and Output 09/11/18 09/11/18 09/12/18 14:59 22:59 06:59 Intake Total 200 ml 650 ml Output Total 800 ml 1000 ml 3800 ml Balance -800 ml -800 ml -3150 ml MANDY COOMBS MD Sep 12, 2018 08:05
--- NOTE | 2018-09-12 08:12 | NUR ---
MEdication; Held BP medication per BRITTANEY Kilpatrick from [facility]. Held dulcolax suppository, pt refused, BM today
--- NOTE | 2018-09-12 08:15 | NUR ---
transported to HD by bed
[2018-09-12] MEDS ORDERED: ALBUMIN HUMAN 5% 2,500 ML IV ONE (08:30)
[2018-09-12] MEDS ORDERED: HEPARIN for IV BOLUS 10,000 UNIT/10 ML VIAL. IV ONE (08:30)
[2018-09-12] MEDS ORDERED: CALCIUM GLUCONATE 2,000 MG in IV NORMAL SALINE 100ML 100 ML IV ONE (08:30)
[2018-09-12 11:00] VITALS: BP_SYST 135; BP_SYST 156; BP_DIAS 61; BP_DIAS 97
--- NOTE | 2018-09-12 11:09 | PDOC ---
Infectious Disease Note Subjective Subjective Comfortable Sat up for breakfast Moving RLE a little more -able to lift off the floor today More bowel control Denies F/C/S/N/V/D Vital Sign Vital Signs Vital Signs Date Time Temp Pulse Resp B/P (MAP) Pulse Ox O2 Delivery O2 Flow Rate FiO2 09/12/18 08:00 Room Air 09/12/18 07:00 98.1 80 16 131/86 (101) 98 98.1 Physical Exam PHYSICAL EXAM GENERAL: Propped up in bed, alert, smiling HEENT: Oropharynx clear NECK: Supple. LUNGS: Clear bilaterally. No wheezing. HEART: S1, S2. ABDOMEN: Obese, soft, NT EXTREMITIES: Bilateral trace pedal edema. NEUROLOGIC: Alert and oriented x 3. Lower extremity weakness bilaterally can move LLE better and ? more with right SPINE: Back incision well healed, nontender. No surrounding redness or erythema. SKIN: Warm, dry. No generalized rash. PIV, right forearm, new. R subclavian clean trace bleed - Labs Lab Laboratory Tests Test 09/11/18 11:12 09/11/18 11:15 09/11/18 16:46 09/11/18 20:59 Glucose (Fingerstick) 104 mg/dL (70-99) 118 mg/dL (70-99) 128 mg/dL (70-99) Fibrinogen 125 mg/dL (200-440) Test 09/12/18 05:00 09/12/18 07:53 White Blood Count 12.6 x10^3/uL (4.0-11.0) Red Blood Count 5.00 x10^6/uL (4.30-5.70) Hemoglobin 14.8 g/dL (13.0-17.5) Hematocrit 45.1 % (39.0-53.0) Mean Corpuscular Volume 90 fL (79-100) Mean Corpuscular Hemoglobin 30 pg (25-35) Mean Corpuscular Hemoglobin Concent 33 g/dL (31-37) Red Cell Distribution Width 14.5 % (11.5-14.5) Platelet Count 155 x10^3/uL (140-400) Neutrophils (%) (Auto) 75 % (31-73) Lymphocytes (%) (Auto) 11 % (24-48) Monocytes (%) (Auto) 12 % (0-9) Eosinophils (%) (Auto) 1 % (0-3) Basophils (%) (Auto) 0 % (0-3) Neutrophils # (Auto) 9.5 x10^3uL (1.8-7.7) Lymphocytes # (Auto) 1.4 x10^3/uL (1.0-4.8) Monocytes # (Auto) 1.5 x10^3/uL (0.0-1.1) Eosinophils # (Auto) 0.1 x10^3/uL (0.0-0.7) Basophils # (Auto) 0.0 x10^3/uL (0.0-0.2) Prothrombin Time 17.8 SEC (11.7-14.0) Prothromb Time International Ratio 1.5 (0.8-1.1) Activated Partial Thromboplast Time 31 SEC (24-38) Fibrinogen 95 mg/dL (200-440) Sodium Level 144 mmol/L (136-145) Potassium Level 4.0 mmol/L (3.5-5.1) Chloride Level 112 mmol/L (98-107) Carbon Dioxide Level 22 mmol/L (21-32) Anion Gap 10 (6-14) Calcium Level 7.5 mg/dL (8.5-10.1) Magnesium Level 2.4 mg/dL (1.8-2.4) Albumin 2.8 g/dL (3.4-5.0) Glucose (Fingerstick) 80 mg/dL (70-99) Micro Microbiology 09/05/18 CSF Gram Stain - Final, Complete 09/03/18 Urine Culture - Final, Complete 09/03/18 Urine Culture Result 1 (LUIS M) - Final, Complete Objective Assessment Transverse myelitis, MRI 09/03/2018. CSF WBC 13, other studies noted , likely noninfectious -s/p LP. Opening pressure 20cm. CSF WBC 13, glucose 76, TP 86.4. No organisms seen. cx pending -HSV/EBV and HIV negative; CMV IgM <0.30. Treponema neg. [place] IgG + CSF - HAD BEEN ON STEROIDS leukocytosis from steroids TB spot invalid Cauda equina syndrome, status post surgery 06/2018. Urinary retention, neurogenic bladder, requiring straight catheterization for 2 months. UC no growth Recurrent urinary tract infection, 07/2018 pansensitive Escherichia coli, treated with ciprofloxacin. History of Clostridium difficile, 07/2018, treated, no recurrence. Status post laminectomy, 06/30/2018, L3-L5. Bilateral lower extremity weakness. Hyperlipidemia. Hypertension. Hyperglycemia. Non-occlusive thrombus, right posterior tibial and peroneal vein H/O seasonal allergies. Plan Plan of Care Acyclovir since 09/05 Cefepime and doxycycline since 09/05 p.o. vancomycin prophylaxis, b.i.d. dosing. Steroids f/u cultures/serologies Continuing plasmapheresis today Repeat TB soon await plasmaphoresis completion MILIND GUZMAN MD Sep 12, 2018 11:09
--- NOTE | 2018-09-12 11:19 | NUR ---
SW following. Discussed with RN, [facility] has received insurance auth for pt to go to rehab tomorrow (09/13/18) after his last plasma exchange. [facility], SW will have to set up once a time is known. IRENE will continue to follow.
--- NOTE | 2018-09-12 11:43 | PDOC ---
SUBJECTIVE ROS Seen on TPE, states very happy with results, LE strength improving OBJECTIVE Vital Signs Vital Signs Date Time Temp Pulse Resp B/P (MAP) Pulse Ox O2 Delivery O2 Flow Rate FiO2 09/12/18 08:00 Room Air 09/12/18 07:00 98.1 80 16 131/86 (101) 98 98.1 I & 0 Intake and Output 09/12/18 07:00 Intake Total 850 ml Output Total 5600 ml Balance -4750 ml Intake Oral 650 ml Blood Product IV Normal Saline Flush 200 ml Output Urine Total 5600 ml # Voids 1 # Bowel Movements 1 PHYSICAL EXAM Physical Exam GENERAL: NAD HEENT: Oropharynx moist NECK: Supple. LUNGS: Clear bilaterally. HEART: S1, S2. ABDOMEN: Obese, soft, NT EXTREMITIES: Bilateral trace pedal edema. NEUROLOGIC: Alert and oriented x 3. Lower extremity weakness bilaterally can move LLE better SPINE: Back incision well healed, nontender. SKIN: No generalized rash. DIAGNOSIS/ASSESSMENT Assessment & Plan Transverse Myelitis -Receiving TPE Tolerating well, 4th treatment today , Improving Exchange volume with FFP due to coagulopathy Coag studies in am , last Tx tomorrow as per Neuro Neurogenic Bladder - Urinary retention, requiring straight catheterization for 2 months. Recurrent urinary tract infection Hypocalcemia- Correct for albumin Replace as indicated Cauda equina syndrome, status post surgery 06/2018. COMMENT/RELEVANT DATA Meds Current Medications Medications (Trade) Dose Ordered Sig/Didi Start Time Stop Time Status Last Admin Dose Admin Acetaminophen (Tylenol) 650 mg PRN Q4HRS PRN 09/03/18 18:45 09/03/18 21:01 650 MG Acyclovir Sodium 750 mg/Dextrose 265 ml @ 265 mls/hr Q8HRS 09/05/18 14:00 09/12/18 05:57 265 MLS/HR Albumin Human 2,500 ml @ 500 mls/hr 1X ONCE 09/12/18 08:30 09/12/18 13:29 09/12/18 08:28 500 MLS/HR Amlodipine Besylate (Norvasc) 10 mg DAILY 09/03/18 16:30 09/11/18 08:20 10 MG Aspirin (Ecotrin) 81 mg DAILYWBKFT 09/03/18 16:30 09/12/18 07:56 81 MG Atorvastatin Calcium (Lipitor) 40 mg QHS 09/03/18 21:00 09/06/18 15:52 DC 09/05/18 21:01 40 MG Bisacodyl (Dulcolax Supp) 10 mg PRN DAILY PRN 09/04/18 09:30 09/04/18 19:38 10 MG Bisacodyl (Dulcolax Tab) 10 mg DAILY 09/04/18 10:00 09/09/18 08:25 10 MG Calcium Carbonate/ Glycine (Oscal) 500 mg DAILY 09/06/18 14:00 09/12/18 07:55 500 MG Calcium Gluconate 2000 mg/Dextrose 120 ml @ 220 mls/hr 1X ONCE 09/10/18 08:45 09/10/18 09:17 DC 09/10/18 13:04 220 MLS/HR Calcium Gluconate 2000 mg/Sodium Chloride 120 ml @ 120 mls/hr 1X ONCE 09/12/18 08:30 09/12/18 09:29 DC 09/12/18 08:29 120 MLS/HR Cefepime HCl (Maxipime) 2 gm Q8HRS 09/05/18 14:00 09/12/18 05:57 2 GM Cetirizine HCl (ZyrTEC) 10 mg DAILY 09/06/18 15:00 09/12/18 07:56 10 MG Ciprofloxacin (Cipro) 500 mg BID 09/03/18 21:00 09/05/18 13:20 DC 09/05/18 08:27 500 MG Dextrose (Dextrose 50%-Water Syringe) 12.5 gm PRN Q15MIN PRN 09/06/18 12:30 Docusate Sodium (Colace) 100 mg PRN DAILY PRN 09/03/18 15:30 Docusate Sodium (Enemeez) 283 mg PRN DAILY PRN 09/04/18 09:30 Doxycycline Hyclate (Vibra-Tab) 100 mg BID 09/05/18 21:00 09/12/18 07:56 100 MG Enoxaparin Sodium (Lovenox 120mg Syringe) 120 mg Q12HR 09/07/18 11:15 09/08/18 12:10 DC 09/08/18 09:24 120 MG Enoxaparin Sodium (Lovenox 40mg Syringe) 40 mg DAILY 09/09/18 12:00 09/12/18 07:58 40 MG Enoxaparin Sodium (Lovenox Per Pharmacy Prophylaxis Dosing) 1 each DAILY PRN 09/09/18 11:15 Enoxaparin Sodium (Lovenox Per Pharmacy Treatment Dosing) 1 each PRN DAILY PRN 09/07/18 11:15 09/08/18 12:11 DC Gabapentin (Neurontin) 300 mg TID 09/08/18 21:00 09/12/18 07:55 300 MG Gadobutrol (Gadavist) 10 mmol 1X ONCE 09/04/18 13:30 09/04/18 13:31 DC 09/04/18 13:26 10 MMOL Heparin Sodium (Porcine) (Heparin Sodium) 10,000 unit STK-MED ONCE 09/12/18 08:24 09/12/18 08:25 DC Hydrocortisone Acetate (Anucort-Hc) 25 mg PRN DAILY PRN 09/04/18 13:30 Info (Anti-Coagulation Monitoring By Pharmacy) 1 each PRN DAILY PRN 09/05/18 14:00 09/10/18 15:10 DC 09/07/18 15:56 1 EACH Insulin Human Lispro (HumaLOG) 0-7 UNITS TIDWMEALS 09/06/18 17:00 09/10/18 17:00 3 UNITS Lactobacillus Rhamnosus (Culturelle) 1 cap BID 09/04/18 21:00 09/12/18 07:55 1 CAP Lidocaine/Sodium Bicarbonate (Buffered Lidocaine 1%) 3 ml 1X ONCE 09/09/18 09:30 09/09/18 09:31 DC 09/09/18 09:43 4 ML Losartan Potassium (Cozaar) 100 mg DAILY 09/03/18 16:30 09/11/18 08:20 100 MG Methylprednisolone (Medrol) 4 mg DAILY 09/09/18 09:00 09/09/18 09:00 DC Methylprednisolone Sodium Succinate (SOLU-Medrol 125MG VIAL) 500 mg BID 09/04/18 21:00 UNV Methylprednisolone Sodium Succinate 500 mg/Sodium Chloride 100 ml @ 100 mls/hr Q12HR 09/04/18 21:00 Cancel Metoprolol Succinate (Toprol Xl) 50 mg DAILY 09/03/18 16:30 09/11/18 08:20 50 MG Multivitamins (Thera M Plus) 1 tab DAILY 09/06/18 14:00 09/12/18 07:56 1 TAB Non-Formulary Medication (Amlodipine/ Valsartan (Exforge 10-320 Mg Tablet)) 1 tab DAILY 09/04/18 09:00 UNV Oxycodone/ Acetaminophen (Percocet 5/325) 1 tab PRN Q4HRS PRN 09/04/18 13:45 09/12/18 07:56 1 TAB Pantoprazole Sodium (Protonix) 40 mg DAILYAC 09/04/18 10:00 09/12/18 05:57 40 MG Polyethylene Glycol (miraLAX PACKET) 17 gm PRN DAILY PRN 09/04/18 09:00 Potassium Chloride (Klor-Con) 40 meq 1X STAT 09/09/18 13:39 09/09/18 13:43 DC 09/09/18 13:54 40 MEQ Prednisone (Prednisone) 10 mg 1X ONCE 09/24/18 09:00 09/24/18 09:01 Rivaroxaban (Xarelto) 15 mg BIDWMEALS 09/06/18 17:00 09/07/18 08:22 DC 09/06/18 17:23 15 MG Sodium Chloride 1,000 ml @ 500 mls/hr Q2H 09/11/18 12:45 09/11/18 15:44 DC Tamsulosin HCl (Flomax) 0.4 mg BID 09/03/18 21:00 09/08/18 10:46 DC 09/08/18 09:00 0.4 MG Thiamine Mononitrate (Vitamin B-1) 100 mg DAILY 09/06/18 14:00 09/12/18 07:55 100 MG Vancomycin HCl (Vancomycin Oral Solution) 125 mg BID 09/05/18 21:00 09/11/18 21:13 125 MG Lab Laboratory Tests Test 09/11/18 16:46 09/11/18 20:59 09/12/18 05:00 09/12/18 07:53 Glucose (Fingerstick) 118 mg/dL (70-99) 128 mg/dL (70-99) 80 mg/dL (70-99) White Blood Count 12.6 x10^3/uL (4.0-11.0) Red Blood Count 5.00 x10^6/uL (4.30-5.70) Hemoglobin 14.8 g/dL (13.0-17.5) Hematocrit 45.1 % (39.0-53.0) Mean Corpuscular Volume 90 fL (79-100) Mean Corpuscular Hemoglobin 30 pg (25-35) Mean Corpuscular Hemoglobin Concent 33 g/dL (31-37) Red Cell Distribution Width 14.5 % (11.5-14.5) Platelet Count 155 x10^3/uL (140-400) Neutrophils (%) (Auto) 75 % (31-73) Lymphocytes (%) (Auto) 11 % (24-48) Monocytes (%) (Auto) 12 % (0-9) Eosinophils (%) (Auto) 1 % (0-3) Basophils (%) (Auto) 0 % (0-3) Neutrophils # (Auto) 9.5 x10^3uL (1.8-7.7) Lymphocytes # (Auto) 1.4 x10^3/uL (1.0-4.8) Monocytes # (Auto) 1.5 x10^3/uL (0.0-1.1) Eosinophils # (Auto) 0.1 x10^3/uL (0.0-0.7) Basophils # (Auto) 0.0 x10^3/uL (0.0-0.2) Prothrombin Time 17.8 SEC (11.7-14.0) Prothromb Time International Ratio 1.5 (0.8-1.1) Activated Partial Thromboplast Time 31 SEC (24-38) Fibrinogen 95 mg/dL (200-440) Sodium Level 144 mmol/L (136-145) Potassium Level 4.0 mmol/L (3.5-5.1) Chloride Level 112 mmol/L (98-107) Carbon Dioxide Level 22 mmol/L (21-32) Anion Gap 10 (6-14) Calcium Level 7.5 mg/dL (8.5-10.1) Magnesium Level 2.4 mg/dL (1.8-2.4) Albumin 2.8 g/dL (3.4-5.0) Results All relevant outside records, renal labs, imaging studies, telemetry/EKG's were reviewed. CHELY BEAULIEU MD Sep 12, 2018 11:43
[2018-09-12] MEDS: VANCOMYCIN 125 MG/2.5 ML ORAL SOLUTION. PO SCH ×2 (12:00→20:47)
--- NOTE | 2018-09-12 12:45 | PDOC ---
PROGRESS NOTES Subjective Subjective No new complaints. Objective Objective Vital Signs Date Time Temp Pulse Resp B/P (MAP) Pulse Ox O2 Delivery O2 Flow Rate FiO2 09/12/18 11:00 98.1 71 16 156/97 (116) 96 Room Air 98.1 Intake and Output 09/12/18 06:59 Intake Total 850 ml Output Total 5600 ml Balance -4750 ml Intake Oral 650 ml Blood Product IV Normal Saline Flush 200 ml Output Urine Total 5600 ml # Voids 1 # Bowel Movements 1 Physical Exam Physical Exam He is supine in bed and feels that he can move his lower extremities better and he did participate with therapy on bed mobility and sitting at edge of bed. Low physical endurance. Plan Plan of Care To rehab unit when medically stable. Comment Review of Relevant I have reviewed the following items franc (where applicable) has been applied. Labs Laboratory Tests Test 09/10/18 16:45 09/10/18 21:03 09/11/18 02:35 09/11/18 07:38 Glucose (Fingerstick) 195 mg/dL (70-99) 165 mg/dL (70-99) 86 mg/dL (70-99) White Blood Count 11.8 x10^3/uL (4.0-11.0) Red Blood Count 4.95 x10^6/uL (4.30-5.70) Hemoglobin 14.7 g/dL (13.0-17.5) Hematocrit 44.9 % (39.0-53.0) Mean Corpuscular Volume 91 fL (79-100) Mean Corpuscular Hemoglobin 30 pg (25-35) Mean Corpuscular Hemoglobin Concent 33 g/dL (31-37) Red Cell Distribution Width 14.6 % (11.5-14.5) Platelet Count 182 x10^3/uL (140-400) Neutrophils (%) (Auto) 82 % (31-73) Lymphocytes (%) (Auto) 7 % (24-48) Monocytes (%) (Auto) 11 % (0-9) Eosinophils (%) (Auto) 0 % (0-3) Basophils (%) (Auto) 0 % (0-3) Neutrophils # (Auto) 9.6 x10^3uL (1.8-7.7) Lymphocytes # (Auto) 0.8 x10^3/uL (1.0-4.8) Monocytes # (Auto) 1.3 x10^3/uL (0.0-1.1) Eosinophils # (Auto) 0.0 x10^3/uL (0.0-0.7) Basophils # (Auto) 0.0 x10^3/uL (0.0-0.2) Prothrombin Time 18.3 SEC (11.7-14.0) Prothromb Time International Ratio 1.6 (0.8-1.1) Activated Partial Thromboplast Time 29 SEC (24-38) Sodium Level 142 mmol/L (136-145) Potassium Level 4.0 mmol/L (3.5-5.1) Chloride Level 110 mmol/L (98-107) Carbon Dioxide Level 21 mmol/L (21-32) Anion Gap 11 (6-14) Blood Urea Nitrogen 26 mg/dL (8-26) Creatinine 0.8 mg/dL (0.7-1.3) Estimated GFR (Cockcroft-Gault) 97.0 BUN/Creatinine Ratio 33 (6-20) Glucose Level 127 mg/dL (70-99) Calcium Level 7.4 mg/dL (8.5-10.1) Magnesium Level 2.3 mg/dL (1.8-2.4) Total Bilirubin 0.6 mg/dL (0.2-1.0) Aspartate Amino Transf (AST/SGOT) 17 U/L (15-37) Alanine Aminotransferase (ALT/SGPT) 33 U/L (16-63) Alkaline Phosphatase 35 U/L (46-116) Total Protein 4.3 g/dL (6.4-8.2) Albumin 3.0 g/dL (3.4-5.0) Albumin/Globulin Ratio 2.3 (1.0-1.7) Hepatitis B Surface Antigen Nonreactive (Nonreactive) Test 09/11/18 11:12 09/11/18 11:15 09/11/18 16:46 09/11/18 20:59 Glucose (Fingerstick) 104 mg/dL (70-99) 118 mg/dL (70-99) 128 mg/dL (70-99) Fibrinogen 125 mg/dL (200-440) Test 09/12/18 05:00 09/12/18 07:53 White Blood Count 12.6 x10^3/uL (4.0-11.0) Red Blood Count 5.00 x10^6/uL (4.30-5.70) Hemoglobin 14.8 g/dL (13.0-17.5) Hematocrit 45.1 % (39.0-53.0) Mean Corpuscular Volume 90 fL (79-100) Mean Corpuscular Hemoglobin 30 pg (25-35) Mean Corpuscular Hemoglobin Concent 33 g/dL (31-37) Red Cell Distribution Width 14.5 % (11.5-14.5) Platelet Count 155 x10^3/uL (140-400) Neutrophils (%) (Auto) 75 % (31-73) Lymphocytes (%) (Auto) 11 % (24-48) Monocytes (%) (Auto) 12 % (0-9) Eosinophils (%) (Auto) 1 % (0-3) Basophils (%) (Auto) 0 % (0-3) Neutrophils # (Auto) 9.5 x10^3uL (1.8-7.7) Lymphocytes # (Auto) 1.4 x10^3/uL (1.0-4.8) Monocytes # (Auto) 1.5 x10^3/uL (0.0-1.1) Eosinophils # (Auto) 0.1 x10^3/uL (0.0-0.7) Basophils # (Auto) 0.0 x10^3/uL (0.0-0.2) Prothrombin Time 17.8 SEC (11.7-14.0) Prothromb Time International Ratio 1.5 (0.8-1.1) Activated Partial Thromboplast Time 31 SEC (24-38) Fibrinogen 95 mg/dL (200-440) Sodium Level 144 mmol/L (136-145) Potassium Level 4.0 mmol/L (3.5-5.1) Chloride Level 112 mmol/L (98-107) Carbon Dioxide Level 22 mmol/L (21-32) Anion Gap 10 (6-14) Calcium Level 7.5 mg/dL (8.5-10.1) Magnesium Level 2.4 mg/dL (1.8-2.4) Albumin 2.8 g/dL (3.4-5.0) Glucose (Fingerstick) 80 mg/dL (70-99) Laboratory Tests Test 4/3/19 16:46 09/11/18 20:59 09/12/18 05:00 09/12/18 07:53 Glucose (Fingerstick) 118 mg/dL (70-99) 128 mg/dL (70-99) 80 mg/dL (70-99) White Blood Count 12.6 x10^3/uL (4.0-11.0) Red Blood Count 5.00 x10^6/uL (4.30-5.70) Hemoglobin 14.8 g/dL (13.0-17.5) Hematocrit 45.1 % (39.0-53.0) Mean Corpuscular Volume 90 fL (79-100) Mean Corpuscular Hemoglobin 30 pg (25-35) Mean Corpuscular Hemoglobin Concent 33 g/dL (31-37) Red Cell Distribution Width 14.5 % (11.5-14.5) Platelet Count 155 x10^3/uL (140-400) Neutrophils (%) (Auto) 75 % (31-73) Lymphocytes (%) (Auto) 11 % (24-48) Monocytes (%) (Auto) 12 % (0-9) Eosinophils (%) (Auto) 1 % (0-3) Basophils (%) (Auto) 0 % (0-3) Neutrophils # (Auto) 9.5 x10^3uL (1.8-7.7) Lymphocytes # (Auto) 1.4 x10^3/uL (1.0-4.8) Monocytes # (Auto) 1.5 x10^3/uL (0.0-1.1) Eosinophils # (Auto) 0.1 x10^3/uL (0.0-0.7) Basophils # (Auto) 0.0 x10^3/uL (0.0-0.2) Prothrombin Time 17.8 SEC (11.7-14.0) Prothromb Time International Ratio 1.5 (0.8-1.1) Activated Partial Thromboplast Time 31 SEC (24-38) Fibrinogen 95 mg/dL (200-440) Sodium Level 144 mmol/L (136-145) Potassium Level 4.0 mmol/L (3.5-5.1) Chloride Level 112 mmol/L (98-107) Carbon Dioxide Level 22 mmol/L (21-32) Anion Gap 10 (6-14) Calcium Level 7.5 mg/dL (8.5-10.1) Magnesium Level 2.4 mg/dL (1.8-2.4) Albumin 2.8 g/dL (3.4-5.0) Microbiology 09/05/18 CSF Gram Stain - Final, Complete 09/03/18 Urine Culture - Final, Complete 09/03/18 Urine Culture Result 1 (LUIS M) - Final, Complete Medications Current Medications Gadobutrol (Gadavist) 10 mmol 1X ONCE IV Last administered on 09/03/18at 15:35 ; Start 09/03/18 at 15:15; Stop 09/03/18 at 15:16; Status DC Aspirin (Ecotrin) 81 mg DAILYWBKFT PO Last administered on 09/12/18at 07:56; Start 09/03/18 at 16:30 Docusate Sodium (Colace) 100 mg PRN DAILY PRN PO HARD STOOLS; Start 09/03/18 at 15:30 Tamsulosin HCl (Flomax) 0.4 mg BID PO Last administered on 09/08/18at 09:00; Start 09/03/18 at 21:00; Stop 09/08/18 at 10:46; Status DC Non-Formulary Medication (Amlodipine/ Valsartan (Exforge 10-320 Mg Tablet)) 1 tab DAILY PO ; Start 09/04/18 at 09:00; Status UNV Metoprolol Succinate (Toprol Xl) 50 mg DAILY PO Last administered on 09/11/18 08:20; Start 09/03/18 at 16:30 Polyethylene Glycol (miraLAX PACKET) 17 gm PRN DAILY PRN PO CONSTIPATION 2ND CHOICE; Start 09/04/18 at 09:00 Atorvastatin Calcium (Lipitor) 40 mg QHS PO Last administered on 09/05/18at 21: 01; Start 09/03/18 at 21:00; Stop 09/06/18 at 15:52; Status DC Oxycodone/ Acetaminophen (Percocet 5/325) 1 tab PRN Q4HRS PRN PO PAIN; Start at 15:30; Stop 09/03/18 at 17:31; Status DC Amlodipine Besylate (Norvasc) 10 mg DAILY PO Last administered on 09/11/18 08: 20; Start 09/03/18 at 16:30 Losartan Potassium (Cozaar) 100 mg DAILY PO Last administered on 09/11/18 08:20 ; Start 09/03/18 at 16:30 Oxycodone/ Acetaminophen (Percocet 5/325) 1 tab PRN Q6HRS PRN PO MODERATE PAIN Last administered on 09/04/18at 11:07; Start 09/03/18 at 17:30; Stop 09/04/18 at 13:35; Status DC Ciprofloxacin (Cipro) 500 mg BID PO Last administered on 09/05/18 08:27; Start 09/03/18 at 21:00; Stop 09/05/18 at 13:20; Status DC Oxycodone/ Acetaminophen (Percocet 5/325) 2 tab PRN Q6HRS PRN PO SEVERE PAIN; Start 09/03/18 at 17:45 Acetaminophen (Tylenol) 650 mg PRN Q4HRS PRN PO MILD PAIN Last administered on 09/03/18at 21:01; Start 09/03/18 at 18:45 Enoxaparin Sodium (Lovenox 120mg Syringe) 120 mg Q12HR SQ Last administered on 09/04/18at 07:55; Start 09/04/18 at 09:00; Stop 09/04/18 at 15:42; Status DC Methylprednisolone (Medrol) 8 mg BID PO Last administered on 09/04/18at 11:06; Start 09/04/18 at 10:00; Stop 09/04/18 at 13:28; Status DC Methylprednisolone (Medrol) 4 mg BIDPCLD PO ; Start 09/04/18 at 12:30; Stop at 13:28; Status DC Methylprednisolone (Medrol) 4 mg TIDPC PO ; Start 09/05/18 at 08:30; Stop at 08:30; Status DC Methylprednisolone (Medrol) 8 mg QHS PO ; Start 09/05/18 at 21:00; Stop at 21:00; Status DC Methylprednisolone (Medrol) 4 mg QIDAFTMEAL PO ; Start 09/06/18 at 09:00; Stop 09/06/18 at 09:00; Status DC Methylprednisolone (Medrol) 4 mg TID PO ; Start 09/07/18 at 09:00; Stop at 09:00; Status DC Methylprednisolone (Medrol) 4 mg BID PO ; Start 09/08/18 at 09:00; Stop at 09:00; Status DC Methylprednisolone (Medrol) 4 mg DAILY PO ; Start 09/09/18 at 09:00; Stop at 09:00; Status DC Pantoprazole Sodium (Protonix) 40 mg DAILYAC PO Last administered on 09/12/18at 05:57; Start 09/04/18 at 10:00 Bisacodyl (Dulcolax Tab) 10 mg DAILY PO Last administered on 09/09/18at 08:25; Start 09/04/18 at 10:00 Bisacodyl (Dulcolax Supp) 10 mg PRN DAILY PRN [place] CONSTIPATION 1ST RECTAL CHOICE Last administered on 09/04/18at 19:38; Start 09/04/18 at 09:30 Docusate Sodium (Enemeez) 283 mg PRN DAILY PRN [place] CONSTIPATION 2ND RECTAL CHOICE; Start 09/04/18 at 09:30 Gadobutrol (Gadavist) 10 mmol 1X ONCE IV Last administered on 09/04/18at 13:26 ; Start 09/04/18 at 13:30; Stop 09/04/18 at 13:31; Status DC Methylprednisolone Sodium Succinate (SOLU-Medrol 125MG VIAL) 500 mg BID IV ; Start 09/04/18 at 21:00; Status UNV Methylprednisolone Sodium Succinate 500 mg/Sodium Chloride 100 ml @ 100 mls/hr Q12HR IV Last administered on 09/09/18at 08:30; Start 09/04/18 at 21:00; Stop 09/09/18 at 11:59; Status DC Methylprednisolone Sodium Succinate 500 mg/Sodium Chloride 100 ml @ 100 mls/hr Q12HR IV ; Start 09/04/18 at 21:00; Status Cancel Oxycodone/ Acetaminophen (Percocet 5/325) 1 tab PRN Q4HRS PRN PO MODERATE PAIN Last administered on 09/12/18at 07:56; Start 09/04/18 at 13:45 Hydrocortisone Acetate (Anucort-Hc) 25 mg PRN DAILY PRN [place] RECTAL PAIN; Start 09/04/18 at 13:30 Enoxaparin Sodium (Lovenox 120mg Syringe) 110 mg Q12HR SQ Last administered on 09/05/18 21:35; Start 09/04/18 at 21:00; Stop 09/06/18 at 06:49; Status DC Lactobacillus Rhamnosus (Culturelle) 1 cap BID PO Last administered on 07:55; Start 09/04/18 at 21:00 Cefepime HCl (Maxipime) 2 gm Q8HRS IVP Last administered on 09/12/18 05:57; Start 09/05/18 at 14:00 Vancomycin HCl (Vancomycin Oral Solution) 125 mg BID PO Last administered on 12:00; Start 09/05/18 at 21:00 Acyclovir Sodium 750 mg/Dextrose 265 ml @ 265 mls/hr Q8HRS IV Last administered on 09/12/18 05:57; Start 09/05/18 at 14:00 Doxycycline Hyclate (Vibra-Tab) 100 mg BID PO Last administered on 09/12/18 07: 56; Start 09/05/18 at 21:00 Info (Anti-Coagulation Monitoring By Pharmacy) 1 each PRN DAILY PRN [facility] SEE COMMENTS Last administered on 09/07/18 15:56; Start 09/05/18 at 14:00; Stop 09/10/18 at 15:10; Status DC Enoxaparin Sodium (Lovenox 120mg Syringe) 120 mg Q12HR SQ ; Start 09/06/18 at 06 :49; Status Cancel Enoxaparin Sodium (Lovenox 120mg Syringe) 120 mg Q12HR SQ Last administered on 09/06/18 08:39; Start 09/06/18 at 09:00; Stop 09/06/18 at 16:44; Status DC Cetirizine HCl (ZyrTEC) 10 mg DAILY PO Last administered on 09/06/18 15:12; Start 09/04/18 at 11:00; Stop 09/06/18 at 15:53; Status DC Insulin Human Lispro (HumaLOG) 0-7 UNITS TIDWMEALS SQ Last administered on 17:00; Start 09/06/18 at 17:00 Dextrose (Dextrose 50%-Water Syringe) 12.5 gm PRN Q15MIN PRN IV SEE COMMENTS; Start 09/06/18 at 12:30 Multivitamins (Thera M Plus) 1 tab DAILY PO Last administered on 09/12/18 07:56 ; Start 09/06/18 at 14:00 Calcium Carbonate/ Glycine (Oscal) 500 mg DAILY PO Last administered on 07:55; Start 09/06/18 at 14:00 Thiamine Mononitrate (Vitamin B-1) 100 mg DAILY PO Last administered on 07:55; Start 09/06/18 at 14:00 Cetirizine HCl (ZyrTEC) 10 mg DAILY PO Last administered on 09/12/18 07:56; Start 09/06/18 at 15:00 Rivaroxaban (Xarelto) 15 mg BIDWMEALS PO Last administered on 09/06/18at 17:23; Start 09/06/18 at 17:00; Stop 09/07/18 at 08:22; Status DC Enoxaparin Sodium (Lovenox Per Pharmacy Treatment Dosing) 1 each PRN DAILY PRN MC SEE COMMENTS; Start 09/07/18 at 11:15; Stop 09/08/18 at 12:11; Status DC Enoxaparin Sodium (Lovenox 120mg Syringe) 120 mg Q12HR SQ Last administered on 09/08/18at 09:24; Start 09/07/18 at 11:15; Stop 09/08/18 at 12:10; Status DC Gabapentin (Neurontin) 100 mg TID PO Last administered on 09/08/18at 14:13; Start 09/07/18 at 21:00; Stop 09/08/18 at 16:27; Status DC Gabapentin (Neurontin) 300 mg TID PO Last administered on 09/12/18at 07:55; Start 09/08/18 at 21:00 Lidocaine/Sodium Bicarbonate (Buffered Lidocaine 1%) 3 ml STK-MED ONCE .ROUTE ; Start 09/09/18 at 08:52; Stop 09/09/18 at 08:53; Status DC Lidocaine/Sodium Bicarbonate (Buffered Lidocaine 1%) 3 ml 1X ONCE INJ Last administered on 09/09/18at 09:43; Start 09/09/18 at 09:30; Stop 09/09/18 at 09:31; Status DC Enoxaparin Sodium (Lovenox Per Pharmacy Prophylaxis Dosing) 1 each DAILY PRN MC SEE COMMENTS; Start 09/09/18 at 11:15 Enoxaparin Sodium (Lovenox 40mg Syringe) 40 mg DAILY SQ Last administered on 09/12/18at 07:58; Start 09/09/18 at 12:00 Prednisone (Prednisone) 70 mg DAILY PO Last administered on 09/12/18at 07:55; Start 09/09/18 at 12:00; Stop 09/15/18 at 09:01 Prednisone (Prednisone) 50 mg 1X ONCE PO ; Start 09/16/18 at 09:00; Stop at 09:01 Prednisone (Prednisone) 40 mg 1X ONCE PO ; Start 09/17/18 at 09:00; Stop at 09:01 Prednisone (Prednisone) 30 mg 1X ONCE PO ; Start 09/18/18 at 09:00; Stop at 09:01 Prednisone (Prednisone) 20 mg DAILY PO ; Start 09/19/18 at 09:00; Stop 09/21/18 at 09:01 Prednisone (Prednisone) 10 mg 1X ONCE PO ; Start 09/22/18 at 09:00; Stop at 09:01 Prednisone (Prednisone) 10 mg 1X ONCE PO ; Start 09/24/18 at 09:00; Stop at 09:01 Potassium Chloride (Klor-Con) 40 meq 1X STAT PO Last administered on 09/09/18at 13:54; Start 09/09/18 at 13:39; Stop 09/09/18 at 13:43; Status DC Albumin Human 3,000 ml @ 0 mls/hr 1X ONCE IV Last administered on 09/09/18at 15 :10; Start 09/09/18 at 14:00; Stop 09/09/18 at 14:01; Status DC Heparin Sodium (Porcine) (Heparin Sodium) 5,000 unit 1X ONCE IV Last administered on 09/09/18at 14:00; Start 09/09/18 at 14:00; Stop 09/09/18 at 14:01; Status DC Albumin Human 3,000 ml @ 0 mls/hr 1X ONCE IV Last administered on 09/10/18at 13 :03; Start 09/10/18 at 09:00; Stop 09/10/18 at 09:01; Status DC Calcium Gluconate 2000 mg/Dextrose 120 ml @ 220 mls/hr 1X ONCE IV Last administered on 09/10/18at 13:04; Start 09/10/18 at 08:45; Stop 09/10/18 at 09:17; Status DC Sodium Chloride 1,000 ml @ 500 mls/hr Q2H IV ; Start 09/11/18 at 12:45; Stop 09/11/18 at 15:44; Status DC Albumin Human 500 ml @ 500 mls/hr Q1HR IV Last administered on 09/11/18at 14:03 ; Start 09/11/18 at 13:00; Stop 09/11/18 at 17:59; Status DC Calcium Gluconate 2000 mg/Sodium Chloride 120 ml @ 220 mls/hr 1X ONCE IV Last administered on 09/11/18at 14:05; Start 09/11/18 at 13:00; Stop 09/11/18 at 13: 32; Status DC Heparin Sodium (Porcine) (Heparin Sodium) 5,000 unit 1X ONCE IV Last administered on 09/11/18at 14:02; Start 09/11/18 at 13:30; Stop 09/11/18 at 13:31; Status DC Heparin Sodium (Porcine) (Heparin Sodium) 10,000 unit STK-MED ONCE .ROUTE ; Start 09/11/18 at 13:27; Stop 09/11/18 at 13:28; Status DC Albumin Human 2,500 ml @ 500 mls/hr 1X ONCE IV Last administered on 09/12/18at 08:28; Start 09/12/18 at 08:30; Stop 09/12/18 at 13:29 Calcium Gluconate 2000 mg/Sodium Chloride 120 ml @ 120 mls/hr 1X ONCE IV Last administered on 09/12/18at 08:29; Start 09/12/18 at 08:30; Stop 09/12/18 at 09: 29; Status DC Heparin Sodium (Porcine) (Heparin Sodium) 5,000 unit 1X ONCE IV Last administered on 09/12/18at 08:27; Start 09/12/18 at 08:30; Stop 09/12/18 at 08:31; Status DC Heparin Sodium (Porcine) (Heparin Sodium) 10,000 unit STK-MED ONCE .ROUTE ; Start 09/12/18 at 08:24; Stop 09/12/18 at 08:25; Status DC Active Scripts Active Cipro (Ciprofloxacin Hcl) 500 Mg Tablet 1 Tab PO BID Aspirin Ec (Aspirin) 81 Mg Tablet.dr 81 Mg PO DAILYWBKFT 30 Days Colace (Docusate Sodium) 100 Mg Capsule 100 Mg PO PRN DAILY PRN 30 Days Polyethylene Glycol 3350 17 Gm Powd.pack 17 Gm PO PRN DAILY PRN 14 Days Flomax (Tamsulosin Hcl) 0.4 Mg Cap.er.24h 0.4 Mg PO BID 30 Days Reported Percocet 5-325 Mg Tablet (Oxycodone/Acetaminophen) 1 Each Tablet 1-2 Tab PO Q4-6HRS Exforge 10-320 Mg Tablet (Amlodipine/Valsartan) 1 Each Tablet 1 Tab PO DAILY Crestor (Rosuvastatin Calcium) 10 Mg Tablet 1 Tab PO DAILY Toprol Xl (Metoprolol Succinate) 50 Mg Tab.er.24h 1 Tab PO DAILY Vitals/I & O Vital Sign - Last 24 Hours 09/11/18 09/11/18 09/11/18 09/11/18 18:40 19:00 20:00 21:14 Temp 97.7 97.7 Pulse 64 Resp 16 18 B/P (MAP) 121/79 (93) Pulse Ox 94 94 O2 Delivery Room Air Room Air Room Air 09/11/18 09/11/18 09/12/18 09/12/18 22:14 23:00 03:00 07:00 Temp 97.9 97.8 98.1 97.9 97.8 98.1 Pulse 66 66 80 Resp 18 18 16 B/P (MAP) 130/79 (96) 133/75 (94) 131/86 (101) Pulse Ox 94 95 94 98 O2 Delivery Room Air Room Air Room Air Room Air 09/12/18 09/12/18 08:00 11:00 Temp 98.1 98.1 Pulse 71 Resp 16 B/P (MAP) 156/97 (116) Pulse Ox 96 O2 Delivery Room Air Room Air Intake and Output 09/11/18 09/11/18 09/12/18 14:59 22:59 06:59 Intake Total 200 ml 650 ml Output Total 800 ml 1000 ml 3800 ml Balance -800 ml -800 ml -3150 ml LAMONT BASHIR MD Sep 12, 2018 12:45
--- NOTE | 2018-09-12 13:32 | PDOC ---
PROGRESS NOTES Subjective Subjective reports improvement in movement and sensation of lower extremities he also reports improvement in sensation of the lower abdomen and groin reports progress with PT Objective Objective Vital Signs Date Time Temp Pulse Resp B/P (MAP) Pulse Ox O2 Delivery O2 Flow Rate FiO2 09/12/18 11:00 98.1 71 16 156/97 (116) 96 Room Air 98.1 Intake and Output 09/12/18 06:59 Intake Total 850 ml Output Total 5600 ml Balance -4750 ml Intake Oral 650 ml Blood Product IV Normal Saline Flush 200 ml Output Urine Total 5600 ml # Voids 1 # Bowel Movements 1 Physical Exam General: Alert, Oriented X3, Cooperative, No acute distress Neuro: Other (slight improvement in movement of lower extremities) Plan Plan of Care continue with plasma exchange antibiotics per ID continue PT encouraged turning Comment Review of Relevant I have reviewed the following items franc (where applicable) has been applied. Labs Laboratory Tests Test 09/10/18 16:45 09/10/18 21:03 09/11/18 02:35 09/11/18 07:38 Glucose (Fingerstick) 195 mg/dL (70-99) 165 mg/dL (70-99) 86 mg/dL (70-99) White Blood Count 11.8 x10^3/uL (4.0-11.0) Red Blood Count 4.95 x10^6/uL (4.30-5.70) Hemoglobin 14.7 g/dL (13.0-17.5) Hematocrit 44.9 % (39.0-53.0) Mean Corpuscular Volume 91 fL (79-100) Mean Corpuscular Hemoglobin 30 pg (25-35) Mean Corpuscular Hemoglobin Concent 33 g/dL (31-37) Red Cell Distribution Width 14.6 % (11.5-14.5) Platelet Count 182 x10^3/uL (140-400) Neutrophils (%) (Auto) 82 % (31-73) Lymphocytes (%) (Auto) 7 % (24-48) Monocytes (%) (Auto) 11 % (0-9) Eosinophils (%) (Auto) 0 % (0-3) Basophils (%) (Auto) 0 % (0-3) Neutrophils # (Auto) 9.6 x10^3uL (1.8-7.7) Lymphocytes # (Auto) 0.8 x10^3/uL (1.0-4.8) Monocytes # (Auto) 1.3 x10^3/uL (0.0-1.1) Eosinophils # (Auto) 0.0 x10^3/uL (0.0-0.7) Basophils # (Auto) 0.0 x10^3/uL (0.0-0.2) Prothrombin Time 18.3 SEC (11.7-14.0) Prothromb Time International Ratio 1.6 (0.8-1.1) Activated Partial Thromboplast Time 29 SEC (24-38) Sodium Level 142 mmol/L (136-145) Potassium Level 4.0 mmol/L (3.5-5.1) Chloride Level 110 mmol/L (98-107) Carbon Dioxide Level 21 mmol/L (21-32) Anion Gap 11 (6-14) Blood Urea Nitrogen 26 mg/dL (8-26) Creatinine 0.8 mg/dL (0.7-1.3) Estimated GFR (Cockcroft-Gault) 97.0 BUN/Creatinine Ratio 33 (6-20) Glucose Level 127 mg/dL (70-99) Calcium Level 7.4 mg/dL (8.5-10.1) Magnesium Level 2.3 mg/dL (1.8-2.4) Total Bilirubin 0.6 mg/dL (0.2-1.0) Aspartate Amino Transf (AST/SGOT) 17 U/L (15-37) Alanine Aminotransferase (ALT/SGPT) 33 U/L (16-63) Alkaline Phosphatase 35 U/L (46-116) Total Protein 4.3 g/dL (6.4-8.2) Albumin 3.0 g/dL (3.4-5.0) Albumin/Globulin Ratio 2.3 (1.0-1.7) Hepatitis B Surface Antigen Nonreactive (Nonreactive) Test 09/11/18 11:12 09/11/18 11:15 09/11/18 16:46 09/11/18 20:59 Glucose (Fingerstick) 104 mg/dL (70-99) 118 mg/dL (70-99) 128 mg/dL (70-99) Fibrinogen 125 mg/dL (200-440) Test 09/12/18 05:00 09/12/18 07:53 White Blood Count 12.6 x10^3/uL (4.0-11.0) Red Blood Count 5.00 x10^6/uL (4.30-5.70) Hemoglobin 14.8 g/dL (13.0-17.5) Hematocrit 45.1 % (39.0-53.0) Mean Corpuscular Volume 90 fL (79-100) Mean Corpuscular Hemoglobin 30 pg (25-35) Mean Corpuscular Hemoglobin Concent 33 g/dL (31-37) Red Cell Distribution Width 14.5 % (11.5-14.5) Platelet Count 155 x10^3/uL (140-400) Neutrophils (%) (Auto) 75 % (31-73) Lymphocytes (%) (Auto) 11 % (24-48) Monocytes (%) (Auto) 12 % (0-9) Eosinophils (%) (Auto) 1 % (0-3) Basophils (%) (Auto) 0 % (0-3) Neutrophils # (Auto) 9.5 x10^3uL (1.8-7.7) Lymphocytes # (Auto) 1.4 x10^3/uL (1.0-4.8) Monocytes # (Auto) 1.5 x10^3/uL (0.0-1.1) Eosinophils # (Auto) 0.1 x10^3/uL (0.0-0.7) Basophils # (Auto) 0.0 x10^3/uL (0.0-0.2) Prothrombin Time 17.8 SEC (11.7-14.0) Prothromb Time International Ratio 1.5 (0.8-1.1) Activated Partial Thromboplast Time 31 SEC (24-38) Fibrinogen 95 mg/dL (200-440) Sodium Level 144 mmol/L (136-145) Potassium Level 4.0 mmol/L (3.5-5.1) Chloride Level 112 mmol/L (98-107) Carbon Dioxide Level 22 mmol/L (21-32) Anion Gap 10 (6-14) Calcium Level 7.5 mg/dL (8.5-10.1) Magnesium Level 2.4 mg/dL (1.8-2.4) Albumin 2.8 g/dL (3.4-5.0) Glucose (Fingerstick) 80 mg/dL (70-99) Laboratory Tests Test 09/11/18 16:46 09/11/18 20:59 09/12/18 05:00 09/12/18 07:53 Glucose (Fingerstick) 118 mg/dL (70-99) 128 mg/dL (70-99) 80 mg/dL (70-99) White Blood Count 12.6 x10^3/uL (4.0-11.0) Red Blood Count 5.00 x10^6/uL (4.30-5.70) Hemoglobin 14.8 g/dL (13.0-17.5) Hematocrit 45.1 % (39.0-53.0) Mean Corpuscular Volume 90 fL (79-100) Mean Corpuscular Hemoglobin 30 pg (25-35) Mean Corpuscular Hemoglobin Concent 33 g/dL (31-37) Red Cell Distribution Width 14.5 % (11.5-14.5) Platelet Count 155 x10^3/uL (140-400) Neutrophils (%) (Auto) 75 % (31-73) Lymphocytes (%) (Auto) 11 % (24-48) Monocytes (%) (Auto) 12 % (0-9) Eosinophils (%) (Auto) 1 % (0-3) Basophils (%) (Auto) 0 % (0-3) Neutrophils # (Auto) 9.5 x10^3uL (1.8-7.7) Lymphocytes # (Auto) 1.4 x10^3/uL (1.0-4.8) Monocytes # (Auto) 1.5 x10^3/uL (0.0-1.1) Eosinophils # (Auto) 0.1 x10^3/uL (0.0-0.7) Basophils # (Auto) 0.0 x10^3/uL (0.0-0.2) Prothrombin Time 17.8 SEC (11.7-14.0) Prothromb Time International Ratio 1.5 (0.8-1.1) Activated Partial Thromboplast Time 31 SEC (24-38) Fibrinogen 95 mg/dL (200-440) Sodium Level 144 mmol/L (136-145) Potassium Level 4.0 mmol/L (3.5-5.1) Chloride Level 112 mmol/L (98-107) Carbon Dioxide Level 22 mmol/L (21-32) Anion Gap 10 (6-14) Calcium Level 7.5 mg/dL (8.5-10.1) Magnesium Level 2.4 mg/dL (1.8-2.4) Albumin 2.8 g/dL (3.4-5.0) Microbiology 09/05/18 CSF Gram Stain - Final, Complete 09/03/18 Urine Culture - Final, Complete 09/03/18 Urine Culture Result 1 (LUIS M) - Final, Complete Medications Current Medications Gadobutrol (Gadavist) 10 mmol 1X ONCE IV Last administered on 09/03/18at 15:35 ; Start 09/03/18 at 15:15; Stop 09/03/18 at 15:16; Status DC Aspirin (Ecotrin) 81 mg DAILYWBKFT PO Last administered on 09/12/18at 07:56; Start 09/03/18 at 16:30 Docusate Sodium (Colace) 100 mg PRN DAILY PRN PO HARD STOOLS; Start 09/03/18 at 15:30 Tamsulosin HCl (Flomax) 0.4 mg BID PO Last administered on 09/08/18at 09:00; Start 09/03/18 at 21:00; Stop 09/08/18 at 10:46; Status DC Non-Formulary Medication (Amlodipine/ Valsartan (Exforge 10-320 Mg Tablet)) 1 tab DAILY PO ; Start 09/04/18 at 09:00; Status UNV Metoprolol Succinate (Toprol Xl) 50 mg DAILY PO Last administered on 09/11/18at 08:20; Start 09/03/18 at 16:30 Polyethylene Glycol (miraLAX PACKET) 17 gm PRN DAILY PRN PO CONSTIPATION 2ND CHOICE; Start 09/04/18 at 09:00 Atorvastatin Calcium (Lipitor) 40 mg QHS PO Last administered on 09/05/18at 21: 01; Start 09/03/18 at 21:00; Stop 09/06/18 at 15:52; Status DC Oxycodone/ Acetaminophen (Percocet 5/325) 1 tab PRN Q4HRS PRN PO PAIN; Start at 15:30; Stop 09/03/18 at 17:31; Status DC Amlodipine Besylate (Norvasc) 10 mg DAILY PO Last administered on 09/11/18 08: 20; Start 09/03/18 at 16:30 Losartan Potassium (Cozaar) 100 mg DAILY PO Last administered on 09/11/18 08:20 ; Start 09/03/18 at 16:30 Oxycodone/ Acetaminophen (Percocet 5/325) 1 tab PRN Q6HRS PRN PO MODERATE PAIN Last administered on 09/04/18at 11:07; Start 09/03/18 at 17:30; Stop 09/04/18 at 13:35; Status DC Ciprofloxacin (Cipro) 500 mg BID PO Last administered on 09/05/18 08:27; Start 09/03/18 at 21:00; Stop 09/05/18 at 13:20; Status DC Oxycodone/ Acetaminophen (Percocet 5/325) 2 tab PRN Q6HRS PRN PO SEVERE PAIN; Start 09/03/18 at 17:45 Acetaminophen (Tylenol) 650 mg PRN Q4HRS PRN PO MILD PAIN Last administered on 09/03/18at 21:01; Start 09/03/18 at 18:45 Enoxaparin Sodium (Lovenox 120mg Syringe) 120 mg Q12HR SQ Last administered on 09/04/18at 07:55; Start 09/04/18 at 09:00; Stop 09/04/18 at 15:42; Status DC Methylprednisolone (Medrol) 8 mg BID PO Last administered on 09/04/18at 11:06; Start 09/04/18 at 10:00; Stop 09/04/18 at 13:28; Status DC Methylprednisolone (Medrol) 4 mg BIDPCLD PO ; Start 09/04/18 at 12:30; Stop at 13:28; Status DC Methylprednisolone (Medrol) 4 mg TIDPC PO ; Start 09/05/18 at 08:30; Stop at 08:30; Status DC Methylprednisolone (Medrol) 8 mg QHS PO ; Start 09/05/18 at 21:00; Stop at 21:00; Status DC Methylprednisolone (Medrol) 4 mg QIDAFTMEAL PO ; Start 09/06/18 at 09:00; Stop 09/06/18 at 09:00; Status DC Methylprednisolone (Medrol) 4 mg TID PO ; Start 09/07/18 at 09:00; Stop at 09:00; Status DC Methylprednisolone (Medrol) 4 mg BID PO ; Start 09/08/18 at 09:00; Stop at 09:00; Status DC Methylprednisolone (Medrol) 4 mg DAILY PO ; Start 09/09/18 at 09:00; Stop at 09:00; Status DC Pantoprazole Sodium (Protonix) 40 mg DAILYAC PO Last administered on 09/12/18at 05:57; Start 09/04/18 at 10:00 Bisacodyl (Dulcolax Tab) 10 mg DAILY PO Last administered on 09/09/18at 08:25; Start 09/04/18 at 10:00 Bisacodyl (Dulcolax Supp) 10 mg PRN DAILY PRN NE CONSTIPATION 1ST RECTAL CHOICE Last administered on 09/04/18at 19:38; Start 09/04/18 at 09:30 Docusate Sodium (Enemeez) 283 mg PRN DAILY PRN NE CONSTIPATION 2ND RECTAL CHOICE; Start 09/04/18 at 09:30 Gadobutrol (Gadavist) 10 mmol 1X ONCE IV Last administered on 09/04/18at 13:26 ; Start 09/04/18 at 13:30; Stop 09/04/18 at 13:31; Status DC Methylprednisolone Sodium Succinate (SOLU-Medrol 125MG VIAL) 500 mg BID IV ; Start 09/04/18 at 21:00; Status UNV Methylprednisolone Sodium Succinate 500 mg/Sodium Chloride 100 ml @ 100 mls/hr Q12HR IV Last administered on 09/09/18at 08:30; Start 09/04/18 at 21:00; Stop 09/09/18 at 11:59; Status DC Methylprednisolone Sodium Succinate 500 mg/Sodium Chloride 100 ml @ 100 mls/hr Q12HR IV ; Start 09/04/18 at 21:00; Status Cancel Oxycodone/ Acetaminophen (Percocet 5/325) 1 tab PRN Q4HRS PRN PO MODERATE PAIN Last administered on 09/12/18at 07:56; Start 09/04/18 at 13:45 Hydrocortisone Acetate (Anucort-Hc) 25 mg PRN DAILY PRN NE RECTAL PAIN; Start 09/04/18 at 13:30 Enoxaparin Sodium (Lovenox 120mg Syringe) 110 mg Q12HR SQ Last administered on 09/05/18 21:35; Start 09/04/18 at 21:00; Stop 09/06/18 at 06:49; Status DC Lactobacillus Rhamnosus (Culturelle) 1 cap BID PO Last administered on 07:55; Start 09/04/18 at 21:00 Cefepime HCl (Maxipime) 2 gm Q8HRS IVP Last administered on 09/12/18 05:57; Start 09/05/18 at 14:00 Vancomycin HCl (Vancomycin Oral Solution) 125 mg BID PO Last administered on 12:00; Start 09/05/18 at 21:00 Acyclovir Sodium 750 mg/Dextrose 265 ml @ 265 mls/hr Q8HRS IV Last administered on 09/12/18 05:57; Start 09/05/18 at 14:00 Doxycycline Hyclate (Vibra-Tab) 100 mg BID PO Last administered on 09/12/18 07: 56; Start 09/05/18 at 21:00 Info (Anti-Coagulation Monitoring By Pharmacy) 1 each PRN DAILY PRN MC SEE COMMENTS Last administered on 09/07/18 15:56; Start 09/05/18 at 14:00; Stop 09/10/18 at 15:10; Status DC Enoxaparin Sodium (Lovenox 120mg Syringe) 120 mg Q12HR SQ ; Start 09/06/18 at 06 :49; Status Cancel Enoxaparin Sodium (Lovenox 120mg Syringe) 120 mg Q12HR SQ Last administered on 09/06/18 08:39; Start 09/06/18 at 09:00; Stop 09/06/18 at 16:44; Status DC Cetirizine HCl (ZyrTEC) 10 mg DAILY PO Last administered on 09/06/18 15:12; Start 09/04/18 at 11:00; Stop 09/06/18 at 15:53; Status DC Insulin Human Lispro (HumaLOG) 0-7 UNITS TIDWMEALS SQ Last administered on 17:00; Start 09/06/18 at 17:00 Dextrose (Dextrose 50%-Water Syringe) 12.5 gm PRN Q15MIN PRN IV SEE COMMENTS; Start 09/06/18 at 12:30 Multivitamins (Thera M Plus) 1 tab DAILY PO Last administered on 09/12/18 07:56 ; Start 09/06/18 at 14:00 Calcium Carbonate/ Glycine (Oscal) 500 mg DAILY PO Last administered on 07:55; Start 09/06/18 at 14:00 Thiamine Mononitrate (Vitamin B-1) 100 mg DAILY PO Last administered on 07:55; Start 09/06/18 at 14:00 Cetirizine HCl (ZyrTEC) 10 mg DAILY PO Last administered on 09/12/18 07:56; Start 09/06/18 at 15:00 Rivaroxaban (Xarelto) 15 mg BIDWMEALS PO Last administered on 09/06/18at 17:23; Start 09/06/18 at 17:00; Stop 09/07/18 at 08:22; Status DC Enoxaparin Sodium (Lovenox Per Pharmacy Treatment Dosing) 1 each PRN DAILY PRN MC SEE COMMENTS; Start 09/07/18 at 11:15; Stop 09/08/18 at 12:11; Status DC Enoxaparin Sodium (Lovenox 120mg Syringe) 120 mg Q12HR SQ Last administered on 09/08/18at 09:24; Start 09/07/18 at 11:15; Stop 09/08/18 at 12:10; Status DC Gabapentin (Neurontin) 100 mg TID PO Last administered on 09/08/18at 14:13; Start 09/07/18 at 21:00; Stop 09/08/18 at 16:27; Status DC Gabapentin (Neurontin) 300 mg TID PO Last administered on 09/12/18at 07:55; Start 09/08/18 at 21:00 Lidocaine/Sodium Bicarbonate (Buffered Lidocaine 1%) 3 ml STK-MED ONCE .ROUTE ; Start 09/09/18 at 08:52; Stop 09/09/18 at 08:53; Status DC Lidocaine/Sodium Bicarbonate (Buffered Lidocaine 1%) 3 ml 1X ONCE INJ Last administered on 09/09/18at 09:43; Start 09/09/18 at 09:30; Stop 09/09/18 at 09:31; Status DC Enoxaparin Sodium (Lovenox Per Pharmacy Prophylaxis Dosing) 1 each DAILY PRN MC SEE COMMENTS; Start 09/09/18 at 11:15 Enoxaparin Sodium (Lovenox 40mg Syringe) 40 mg DAILY SQ Last administered on 09/12/18at 07:58; Start 09/09/18 at 12:00 Prednisone (Prednisone) 70 mg DAILY PO Last administered on 09/12/18at 07:55; Start 09/09/18 at 12:00; Stop 09/15/18 at 09:01 Prednisone (Prednisone) 50 mg 1X ONCE PO ; Start 09/16/18 at 09:00; Stop at 09:01 Prednisone (Prednisone) 40 mg 1X ONCE PO ; Start 09/17/18 at 09:00; Stop at 09:01 Prednisone (Prednisone) 30 mg 1X ONCE PO ; Start 09/18/18 at 09:00; Stop at 09:01 Prednisone (Prednisone) 20 mg DAILY PO ; Start 09/19/18 at 09:00; Stop 09/21/18 at 09:01 Prednisone (Prednisone) 10 mg 1X ONCE PO ; Start 09/22/18 at 09:00; Stop at 09:01 Prednisone (Prednisone) 10 mg 1X ONCE PO ; Start 09/24/18 at 09:00; Stop at 09:01 Potassium Chloride (Klor-Con) 40 meq 1X STAT PO Last administered on 09/09/18at 13:54; Start 09/09/18 at 13:39; Stop 09/09/18 at 13:43; Status DC Albumin Human 3,000 ml @ 0 mls/hr 1X ONCE IV Last administered on 09/09/18at 15 :10; Start 09/09/18 at 14:00; Stop 09/09/18 at 14:01; Status DC Heparin Sodium (Porcine) (Heparin Sodium) 5,000 unit 1X ONCE IV Last administered on 09/09/18at 14:00; Start 09/09/18 at 14:00; Stop 09/09/18 at 14:01; Status DC Albumin Human 3,000 ml @ 0 mls/hr 1X ONCE IV Last administered on 09/10/18at 13 :03; Start 09/10/18 at 09:00; Stop 09/10/18 at 09:01; Status DC Calcium Gluconate 2000 mg/Dextrose 120 ml @ 220 mls/hr 1X ONCE IV Last administered on 09/10/18at 13:04; Start 09/10/18 at 08:45; Stop 09/10/18 at 09:17; Status DC Sodium Chloride 1,000 ml @ 500 mls/hr Q2H IV ; Start 09/11/18 at 12:45; Stop 09/11/18 at 15:44; Status DC Albumin Human 500 ml @ 500 mls/hr Q1HR IV Last administered on 09/11/18at 14:03 ; Start 09/11/18 at 13:00; Stop 09/11/18 at 17:59; Status DC Calcium Gluconate 2000 mg/Sodium Chloride 120 ml @ 220 mls/hr 1X ONCE IV Last administered on 09/11/18at 14:05; Start 09/11/18 at 13:00; Stop 09/11/18 at 13: 32; Status DC Heparin Sodium (Porcine) (Heparin Sodium) 5,000 unit 1X ONCE IV Last administered on 09/11/18at 14:02; Start 09/11/18 at 13:30; Stop 09/11/18 at 13:31; Status DC Heparin Sodium (Porcine) (Heparin Sodium) 10,000 unit STK-MED ONCE .ROUTE ; Start 09/11/18 at 13:27; Stop 09/11/18 at 13:28; Status DC Albumin Human 2,500 ml @ 500 mls/hr 1X ONCE IV Last administered on 09/12/18 08:28; Start 09/12/18 at 08:30; Stop 09/12/18 at 13:29 Calcium Gluconate 2000 mg/Sodium Chloride 120 ml @ 120 mls/hr 1X ONCE IV Last administered on 09/12/18at 08:29; Start 09/12/18 at 08:30; Stop 09/12/18 at 09: 29; Status DC Heparin Sodium (Porcine) (Heparin Sodium) 5,000 unit 1X ONCE IV Last administered on 09/12/18at 08:27; Start 09/12/18 at 08:30; Stop 09/12/18 at 08:31; Status DC Heparin Sodium (Porcine) (Heparin Sodium) 10,000 unit STK-MED ONCE .ROUTE ; Start 09/12/18 at 08:24; Stop 09/12/18 at 08:25; Status DC Active Scripts Active Cipro (Ciprofloxacin Hcl) 500 Mg Tablet 1 Tab PO BID Aspirin Ec (Aspirin) 81 Mg Tablet.dr 81 Mg PO DAILYWBKFT 30 Days Colace (Docusate Sodium) 100 Mg Capsule 100 Mg PO PRN DAILY PRN 30 Days Polyethylene Glycol 3350 17 Gm Powd.pack 17 Gm PO PRN DAILY PRN 14 Days Flomax (Tamsulosin Hcl) 0.4 Mg Cap.er.24h 0.4 Mg PO BID 30 Days Reported Percocet 5-325 Mg Tablet (Oxycodone/Acetaminophen) 1 Each Tablet 1-2 Tab PO Q4-6HRS Exforge 10-320 Mg Tablet (Amlodipine/Valsartan) 1 Each Tablet 1 Tab PO DAILY Crestor (Rosuvastatin Calcium) 10 Mg Tablet 1 Tab PO DAILY Toprol Xl (Metoprolol Succinate) 50 Mg Tab.er.24h 1 Tab PO DAILY Vitals/I & O Vital Sign - Last 24 Hours 09/11/18 09/11/18 09/11/18 09/11/18 18:40 19:00 20:00 21:14 Temp 97.7 97.7 Pulse 64 Resp 16 18 B/P (MAP) 121/79 (93) Pulse Ox 94 94 O2 Delivery Room Air Room Air Room Air 09/11/18 09/11/18 09/12/18 09/12/18 22:14 23:00 03:00 07:00 Temp 97.9 97.8 98.1 97.9 97.8 98.1 Pulse 66 66 80 Resp 18 18 16 B/P (MAP) 130/79 (96) 133/75 (94) 131/86 (101) Pulse Ox 94 95 94 98 O2 Delivery Room Air Room Air Room Air Room Air 09/12/18 09/12/18 08:00 11:00 Temp 98.1 98.1 Pulse 71 Resp 16 B/P (MAP) 156/97 (116) Pulse Ox 96 O2 Delivery Room Air Room Air Intake and Output 09/11/18 09/11/18 09/12/18 14:59 22:59 06:59 Intake Total 200 ml 650 ml Output Total 800 ml 1000 ml 3800 ml Balance -800 ml -800 ml -3150 ml DAVINA SANCHEZ [employer] Sep 12, 2018 13:32
--- NOTE | 2018-09-12 14:00 | PDOC ---
PROGRESS NOTES Assessment T9-10 transverse myelitis, stronger after 2nd plasma exchange yesterday. Lumbar spondylosis, status post decompression Plan Prednisone taper Plasma exchange, today Lab: NMO, outpatient basis. Neurontin 300 mg tid. OT/PT. Thus, he should finish the 5th plasma exchange on 09/13, can go to inpatient rehab later that day. Follow-up with Dr. Carrasquillo in 2-[address] Benitez, continue Lovenox, no need for [place] filter Subjective no pain, happy with improvement Objective Vital Signs Date Time Temp Pulse Resp B/P (MAP) Pulse Ox O2 Delivery O2 Flow Rate FiO2 09/12/18 11:00 98.1 71 16 156/97 (116) 96 Room Air 98.1 Intake and Output 09/12/18 07:00 Intake Total 850 ml Output Total 5600 ml Balance -4750 ml Intake Oral 650 ml Blood Product IV Normal Saline Flush 200 ml Output Urine Total 5600 ml # Voids 1 # Bowel Movements 1 PHYSICAL EXAM Alert. Oriented to time, place and person. PERRL. EOMI. CN: no focal findings. Muscle tone: normal. Muscle strength: 3/5 legs, 5/5 arms DTR: 2+ arms, 0+ legs Plantar reflex: silent Gait: not examined in bed. Sensory exam: T12 sensory level, but improved sensation. No cerebellar signs elicited. Review of Relevant I have reviewed the following items franc (where applicable) has been applied. Labs Laboratory Tests Test 09/10/18 16:45 09/10/18 21:03 09/11/18 02:35 09/11/18 07:38 Glucose (Fingerstick) 195 mg/dL (70-99) 165 mg/dL (70-99) 86 mg/dL (70-99) White Blood Count 11.8 x10^3/uL (4.0-11.0) Red Blood Count 4.95 x10^6/uL (4.30-5.70) Hemoglobin 14.7 g/dL (13.0-17.5) Hematocrit 44.9 % (39.0-53.0) Mean Corpuscular Volume 91 fL (79-100) Mean Corpuscular Hemoglobin 30 pg (25-35) Mean Corpuscular Hemoglobin Concent 33 g/dL (31-37) Red Cell Distribution Width 14.6 % (11.5-14.5) Platelet Count 182 x10^3/uL (140-400) Neutrophils (%) (Auto) 82 % (31-73) Lymphocytes (%) (Auto) 7 % (24-48) Monocytes (%) (Auto) 11 % (0-9) Eosinophils (%) (Auto) 0 % (0-3) Basophils (%) (Auto) 0 % (0-3) Neutrophils # (Auto) 9.6 x10^3uL (1.8-7.7) Lymphocytes # (Auto) 0.8 x10^3/uL (1.0-4.8) Monocytes # (Auto) 1.3 x10^3/uL (0.0-1.1) Eosinophils # (Auto) 0.0 x10^3/uL (0.0-0.7) Basophils # (Auto) 0.0 x10^3/uL (0.0-0.2) Prothrombin Time 18.3 SEC (11.7-14.0) Prothromb Time International Ratio 1.6 (0.8-1.1) Activated Partial Thromboplast Time 29 SEC (24-38) Sodium Level 142 mmol/L (136-145) Potassium Level 4.0 mmol/L (3.5-5.1) Chloride Level 110 mmol/L (98-107) Carbon Dioxide Level 21 mmol/L (21-32) Anion Gap 11 (6-14) Blood Urea Nitrogen 26 mg/dL (8-26) Creatinine 0.8 mg/dL (0.7-1.3) Estimated GFR (Cockcroft-Gault) 97.0 BUN/Creatinine Ratio 33 (6-20) Glucose Level 127 mg/dL (70-99) Calcium Level 7.4 mg/dL (8.5-10.1) Magnesium Level 2.3 mg/dL (1.8-2.4) Total Bilirubin 0.6 mg/dL (0.2-1.0) Aspartate Amino Transf (AST/SGOT) 17 U/L (15-37) Alanine Aminotransferase (ALT/SGPT) 33 U/L (16-63) Alkaline Phosphatase 35 U/L (46-116) Total Protein 4.3 g/dL (6.4-8.2) Albumin 3.0 g/dL (3.4-5.0) Albumin/Globulin Ratio 2.3 (1.0-1.7) Hepatitis B Surface Antigen Nonreactive (Nonreactive) Test 09/11/18 11:12 09/11/18 11:15 09/11/18 16:46 09/11/18 20:59 Glucose (Fingerstick) 104 mg/dL (70-99) 118 mg/dL (70-99) 128 mg/dL (70-99) Fibrinogen 125 mg/dL (200-440) Test 09/12/18 05:00 09/12/18 07:53 White Blood Count 12.6 x10^3/uL (4.0-11.0) Red Blood Count 5.00 x10^6/uL (4.30-5.70) Hemoglobin 14.8 g/dL (13.0-17.5) Hematocrit 45.1 % (39.0-53.0) Mean Corpuscular Volume 90 fL (79-100) Mean Corpuscular Hemoglobin 30 pg (25-35) Mean Corpuscular Hemoglobin Concent 33 g/dL (31-37) Red Cell Distribution Width 14.5 % (11.5-14.5) Platelet Count 155 x10^3/uL (140-400) Neutrophils (%) (Auto) 75 % (31-73) Lymphocytes (%) (Auto) 11 % (24-48) Monocytes (%) (Auto) 12 % (0-9) Eosinophils (%) (Auto) 1 % (0-3) Basophils (%) (Auto) 0 % (0-3) Neutrophils # (Auto) 9.5 x10^3uL (1.8-7.7) Lymphocytes # (Auto) 1.4 x10^3/uL (1.0-4.8) Monocytes # (Auto) 1.5 x10^3/uL (0.0-1.1) Eosinophils # (Auto) 0.1 x10^3/uL (0.0-0.7) Basophils # (Auto) 0.0 x10^3/uL (0.0-0.2) Prothrombin Time 17.8 SEC (11.7-14.0) Prothromb Time International Ratio 1.5 (0.8-1.1) Activated Partial Thromboplast Time 31 SEC (24-38) Fibrinogen 95 mg/dL (200-440) Sodium Level 144 mmol/L (136-145) Potassium Level 4.0 mmol/L (3.5-5.1) Chloride Level 112 mmol/L (98-107) Carbon Dioxide Level 22 mmol/L (21-32) Anion Gap 10 (6-14) Calcium Level 7.5 mg/dL (8.5-10.1) Magnesium Level 2.4 mg/dL (1.8-2.4) Albumin 2.8 g/dL (3.4-5.0) Glucose (Fingerstick) 80 mg/dL (70-99) Laboratory Tests Test 09/11/18 16:46 09/11/18 20:59 09/12/18 05:00 09/12/18 07:53 Glucose (Fingerstick) 118 mg/dL (70-99) 128 mg/dL (70-99) 80 mg/dL (70-99) White Blood Count 12.6 x10^3/uL (4.0-11.0) Red Blood Count 5.00 x10^6/uL (4.30-5.70) Hemoglobin 14.8 g/dL (13.0-17.5) Hematocrit 45.1 % (39.0-53.0) Mean Corpuscular Volume 90 fL (79-100) Mean Corpuscular Hemoglobin 30 pg (25-35) Mean Corpuscular Hemoglobin Concent 33 g/dL (31-37) Red Cell Distribution Width 14.5 % (11.5-14.5) Platelet Count 155 x10^3/uL (140-400) Neutrophils (%) (Auto) 75 % (31-73) Lymphocytes (%) (Auto) 11 % (24-48) Monocytes (%) (Auto) 12 % (0-9) Eosinophils (%) (Auto) 1 % (0-3) Basophils (%) (Auto) 0 % (0-3) Neutrophils # (Auto) 9.5 x10^3uL (1.8-7.7) Lymphocytes # (Auto) 1.4 x10^3/uL (1.0-4.8) Monocytes # (Auto) 1.5 x10^3/uL (0.0-1.1) Eosinophils # (Auto) 0.1 x10^3/uL (0.0-0.7) Basophils # (Auto) 0.0 x10^3/uL (0.0-0.2) Prothrombin Time 17.8 SEC (11.7-14.0) Prothromb Time International Ratio 1.5 (0.8-1.1) Activated Partial Thromboplast Time 31 SEC (24-38) Fibrinogen 95 mg/dL (200-440) Sodium Level 144 mmol/L (136-145) Potassium Level 4.0 mmol/L (3.5-5.1) Chloride Level 112 mmol/L (98-107) Carbon Dioxide Level 22 mmol/L (21-32) Anion Gap 10 (6-14) Calcium Level 7.5 mg/dL (8.5-10.1) Magnesium Level 2.4 mg/dL (1.8-2.4) Albumin 2.8 g/dL (3.4-5.0) Microbiology 09/05/18 CSF Gram Stain - Final, Complete 09/03/18 Urine Culture - Final, Complete 09/03/18 Urine Culture Result 1 (LUIS M) - Final, Complete Medications Current Medications Gadobutrol (Gadavist) 10 mmol 1X ONCE IV Last administered on 09/03/18at 15:35 ; Start 09/03/18 at 15:15; Stop 09/03/18 at 15:16; Status DC Aspirin (Ecotrin) 81 mg DAILYWBKFT PO Last administered on 09/12/18at 07:56; Start 09/03/18 at 16:30 Docusate Sodium (Colace) 100 mg PRN DAILY PRN PO HARD STOOLS; Start 09/03/18 at 15:30 Tamsulosin HCl (Flomax) 0.4 mg BID PO Last administered on 09/08/18at 09:00; Start 09/03/18 at 21:00; Stop 09/08/18 at 10:46; Status DC Non-Formulary Medication (Amlodipine/ Valsartan (Exforge 10-320 Mg Tablet)) 1 tab DAILY PO ; Start 09/04/18 at 09:00; Status UNV Metoprolol Succinate (Toprol Xl) 50 mg DAILY PO Last administered on 09/11/18at 08:20; Start 09/03/18 at 16:30 Polyethylene Glycol (miraLAX PACKET) 17 gm PRN DAILY PRN PO CONSTIPATION 2ND CHOICE; Start 09/04/18 at 09:00 Atorvastatin Calcium (Lipitor) 40 mg QHS PO Last administered on 09/05/18 21: 01; Start 09/03/18 at 21:00; Stop 09/06/18 at 15:52; Status DC Oxycodone/ Acetaminophen (Percocet 5/325) 1 tab PRN Q4HRS PRN PO PAIN; Start at 15:30; Stop 09/03/18 at 17:31; Status DC Amlodipine Besylate (Norvasc) 10 mg DAILY PO Last administered on 09/11/18 08: 20; Start 09/03/18 at 16:30 Losartan Potassium (Cozaar) 100 mg DAILY PO Last administered on 09/11/18 08:20 ; Start 09/03/18 at 16:30 Oxycodone/ Acetaminophen (Percocet 5/325) 1 tab PRN Q6HRS PRN PO MODERATE PAIN Last administered on 09/04/18 11:07; Start 09/03/18 at 17:30; Stop 09/04/18 at 13:35; Status DC Ciprofloxacin (Cipro) 500 mg BID PO Last administered on 09/05/18 08:27; Start 09/03/18 at 21:00; Stop 09/05/18 at 13:20; Status DC Oxycodone/ Acetaminophen (Percocet 5/325) 2 tab PRN Q6HRS PRN PO SEVERE PAIN; Start 09/03/18 at 17:45 Acetaminophen (Tylenol) 650 mg PRN Q4HRS PRN PO MILD PAIN Last administered on 09/03/18at 21:01; Start 09/03/18 at 18:45 Enoxaparin Sodium (Lovenox 120mg Syringe) 120 mg Q12HR SQ Last administered on 09/04/18 07:55; Start 09/04/18 at 09:00; Stop 09/04/18 at 15:42; Status DC Methylprednisolone (Medrol) 8 mg BID PO Last administered on 09/04/18 11:06; Start 09/04/18 at 10:00; Stop 09/04/18 at 13:28; Status DC Methylprednisolone (Medrol) 4 mg BIDPCLD PO ; Start 09/04/18 at 12:30; Stop at 13:28; Status DC Methylprednisolone (Medrol) 4 mg TIDPC PO ; Start 09/05/18 at 08:30; Stop at 08:30; Status DC Methylprednisolone (Medrol) 8 mg QHS PO ; Start 09/05/18 at 21:00; Stop at 21:00; Status DC Methylprednisolone (Medrol) 4 mg QIDAFTMEAL PO ; Start 09/06/18 at 09:00; Stop 09/06/18 at 09:00; Status DC Methylprednisolone (Medrol) 4 mg TID PO ; Start 09/07/18 at 09:00; Stop at 09:00; Status DC Methylprednisolone (Medrol) 4 mg BID PO ; Start 09/08/18 at 09:00; Stop at 09:00; Status DC Methylprednisolone (Medrol) 4 mg DAILY PO ; Start 09/09/18 at 09:00; Stop at 09:00; Status DC Pantoprazole Sodium (Protonix) 40 mg DAILYAC PO Last administered on 09/12/18at 05:57; Start 09/04/18 at 10:00 Bisacodyl (Dulcolax Tab) 10 mg DAILY PO Last administered on 09/09/18at 08:25; Start 09/04/18 at 10:00 Bisacodyl (Dulcolax Supp) 10 mg PRN DAILY PRN [place] CONSTIPATION 1ST RECTAL CHOICE Last administered on 09/04/18at 19:38; Start 09/04/18 at 09:30 Docusate Sodium (Enemeez) 283 mg PRN DAILY PRN [place] CONSTIPATION 2ND RECTAL CHOICE; Start 09/04/18 at 09:30 Gadobutrol (Gadavist) 10 mmol 1X ONCE IV Last administered on 09/04/18at 13:26 ; Start 09/04/18 at 13:30; Stop 09/04/18 at 13:31; Status DC Methylprednisolone Sodium Succinate (SOLU-Medrol 125MG VIAL) 500 mg BID IV ; Start 09/04/18 at 21:00; Status UNV Methylprednisolone Sodium Succinate 500 mg/Sodium Chloride 100 ml @ 100 mls/hr Q12HR IV Last administered on 09/09/18at 08:30; Start 09/04/18 at 21:00; Stop 09/09/18 at 11:59; Status DC Methylprednisolone Sodium Succinate 500 mg/Sodium Chloride 100 ml @ 100 mls/hr Q12HR IV ; Start 09/04/18 at 21:00; Status Cancel Oxycodone/ Acetaminophen (Percocet 5/325) 1 tab PRN Q4HRS PRN PO MODERATE PAIN Last administered on 09/12/18 07:56; Start 09/04/18 at 13:45 Hydrocortisone Acetate (Anucort-Hc) 25 mg PRN DAILY PRN [place] RECTAL PAIN; Start 09/04/18 at 13:30 Enoxaparin Sodium (Lovenox 120mg Syringe) 110 mg Q12HR SQ Last administered on 09/05/18 21:35; Start 09/04/18 at 21:00; Stop 09/06/18 at 06:49; Status DC Lactobacillus Rhamnosus (Culturelle) 1 cap BID PO Last administered on 07:55; Start 09/04/18 at 21:00 Cefepime HCl (Maxipime) 2 gm Q8HRS IVP Last administered on 09/12/18 05:57; Start 09/05/18 at 14:00 Vancomycin HCl (Vancomycin Oral Solution) 125 mg BID PO Last administered on 12:00; Start 09/05/18 at 21:00 Acyclovir Sodium 750 mg/Dextrose 265 ml @ 265 mls/hr Q8HRS IV Last administered on 09/12/18 05:57; Start 09/05/18 at 14:00 Doxycycline Hyclate (Vibra-Tab) 100 mg BID PO Last administered on 09/12/18 07: 56; Start 09/05/18 at 21:00 Info (Anti-Coagulation Monitoring By Pharmacy) 1 each PRN DAILY PRN MC SEE COMMENTS Last administered on 09/07/18 15:56; Start 09/05/18 at 14:00; Stop 09/10/18 at 15:10; Status DC Enoxaparin Sodium (Lovenox 120mg Syringe) 120 mg Q12HR SQ ; Start 09/06/18 at 06 :49; Status Cancel Enoxaparin Sodium (Lovenox 120mg Syringe) 120 mg Q12HR SQ Last administered on 3/29/19at 08:39; Start 09/06/18 at 09:00; Stop 09/06/18 at 16:44; Status DC Cetirizine HCl (ZyrTEC) 10 mg DAILY PO Last administered on 09/06/18 15:12; Start 09/04/18 at 11:00; Stop 09/06/18 at 15:53; Status DC Insulin Human Lispro (HumaLOG) 0-7 UNITS TIDWMEALS SQ Last administered on 17:00; Start 09/06/18 at 17:00 Dextrose (Dextrose 50%-Water Syringe) 12.5 gm PRN Q15MIN PRN IV SEE COMMENTS; Start 09/06/18 at 12:30 Multivitamins (Thera M Plus) 1 tab DAILY PO Last administered on 09/12/18 07:56 ; Start 09/06/18 at 14:00 Calcium Carbonate/ Glycine (Oscal) 500 mg DAILY PO Last administered on 07:55; Start 09/06/18 at 14:00 Thiamine Mononitrate (Vitamin B-1) 100 mg DAILY PO Last administered on 07:55; Start 09/06/18 at 14:00 Cetirizine HCl (ZyrTEC) 10 mg DAILY PO Last administered on 09/12/18 07:56; Start 09/06/18 at 15:00 Rivaroxaban (Xarelto) 15 mg BIDWMEALS PO Last administered on 09/06/18 17:23; Start 09/06/18 at 17:00; Stop 09/07/18 at 08:22; Status DC Enoxaparin Sodium (Lovenox Per Pharmacy Treatment Dosing) 1 each PRN DAILY PRN MC SEE COMMENTS; Start 09/07/18 at 11:15; Stop 09/08/18 at 12:11; Status DC Enoxaparin Sodium (Lovenox 120mg Syringe) 120 mg Q12HR SQ Last administered on 09/08/18at 09:24; Start 09/07/18 at 11:15; Stop 09/08/18 at 12:10; Status DC Gabapentin (Neurontin) 100 mg TID PO Last administered on 09/08/18 14:13; Start 09/07/18 at 21:00; Stop 09/08/18 at 16:27; Status DC Gabapentin (Neurontin) 300 mg TID PO Last administered on 09/12/18at 07:55; Start 09/08/18 at 21:00 Lidocaine/Sodium Bicarbonate (Buffered Lidocaine 1%) 3 ml STK-MED ONCE .ROUTE ; Start 09/09/18 at 08:52; Stop 09/09/18 at 08:53; Status DC Lidocaine/Sodium Bicarbonate (Buffered Lidocaine 1%) 3 ml 1X ONCE INJ Last administered on 09/09/18at 09:43; Start 09/09/18 at 09:30; Stop 09/09/18 at 09:31; Status DC Enoxaparin Sodium (Lovenox Per Pharmacy Prophylaxis Dosing) 1 each DAILY PRN MC SEE COMMENTS; Start 09/09/18 at 11:15 Enoxaparin Sodium (Lovenox 40mg Syringe) 40 mg DAILY SQ Last administered on 09/12/18at 07:58; Start 09/09/18 at 12:00 Prednisone (Prednisone) 70 mg DAILY PO Last administered on 09/12/18at 07:55; Start 09/09/18 at 12:00; Stop 09/15/18 at 09:01 Prednisone (Prednisone) 50 mg 1X ONCE PO ; Start 09/16/18 at 09:00; Stop at 09:01 Prednisone (Prednisone) 40 mg 1X ONCE PO ; Start 09/17/18 at 09:00; Stop at 09:01 Prednisone (Prednisone) 30 mg 1X ONCE PO ; Start 09/18/18 at 09:00; Stop at 09:01 Prednisone (Prednisone) 20 mg DAILY PO ; Start 09/19/18 at 09:00; Stop 09/21/18 at 09:01 Prednisone (Prednisone) 10 mg 1X ONCE PO ; Start 09/22/18 at 09:00; Stop at 09:01 Prednisone (Prednisone) 10 mg 1X ONCE PO ; Start 09/24/18 at 09:00; Stop at 09:01 Potassium Chloride (Klor-Con) 40 meq 1X STAT PO Last administered on 09/09/18at 13:54; Start 09/09/18 at 13:39; Stop 09/09/18 at 13:43; Status DC Albumin Human 3,000 ml @ 0 mls/hr 1X ONCE IV Last administered on 09/09/18at 15 :10; Start 09/09/18 at 14:00; Stop 09/09/18 at 14:01; Status DC Heparin Sodium (Porcine) (Heparin Sodium) 5,000 unit 1X ONCE IV Last administered on 09/09/18at 14:00; Start 09/09/18 at 14:00; Stop 09/09/18 at 14:01; Status DC Albumin Human 3,000 ml @ 0 mls/hr 1X ONCE IV Last administered on 09/10/18at 13 :03; Start 09/10/18 at 09:00; Stop 09/10/18 at 09:01; Status DC Calcium Gluconate 2000 mg/Dextrose 120 ml @ 220 mls/hr 1X ONCE IV Last administered on 09/10/18at 13:04; Start 09/10/18 at 08:45; Stop 09/10/18 at 09:17; Status DC Sodium Chloride 1,000 ml @ 500 mls/hr Q2H IV ; Start 09/11/18 at 12:45; Stop 09/11/18 at 15:44; Status DC Albumin Human 500 ml @ 500 mls/hr Q1HR IV Last administered on 09/11/18at 14:03 ; Start 09/11/18 at 13:00; Stop 09/11/18 at 17:59; Status DC Calcium Gluconate 2000 mg/Sodium Chloride 120 ml @ 220 mls/hr 1X ONCE IV Last administered on 09/11/18at 14:05; Start 09/11/18 at 13:00; Stop 09/11/18 at 13: 32; Status DC Heparin Sodium (Porcine) (Heparin Sodium) 5,000 unit 1X ONCE IV Last administered on 09/11/18at 14:02; Start 09/11/18 at 13:30; Stop 09/11/18 at 13:31; Status DC Heparin Sodium (Porcine) (Heparin Sodium) 10,000 unit STK-MED ONCE .ROUTE ; Start 09/11/18 at 13:27; Stop 09/11/18 at 13:28; Status DC Albumin Human 2,500 ml @ 500 mls/hr 1X ONCE IV Last administered on 09/12/18at 08:28; Start 09/12/18 at 08:30; Stop 09/12/18 at 13:29; Status DC Calcium Gluconate 2000 mg/Sodium Chloride 120 ml @ 120 mls/hr 1X ONCE IV Last administered on 09/12/18at 08:29; Start 09/12/18 at 08:30; Stop 09/12/18 at 09: 29; Status DC Heparin Sodium (Porcine) (Heparin Sodium) 5,000 unit 1X ONCE IV Last administered on 09/12/18at 08:27; Start 09/12/18 at 08:30; Stop 09/12/18 at 08:31; Status DC Heparin Sodium (Porcine) (Heparin Sodium) 10,000 unit STK-MED ONCE .ROUTE ; Start 09/12/18 at 08:24; Stop 09/12/18 at 08:25; Status DC Active Scripts Active Cipro (Ciprofloxacin Hcl) 500 Mg Tablet 1 Tab PO BID Aspirin Ec (Aspirin) 81 Mg Tablet.dr 81 Mg PO DAILYWBKFT 30 Days Colace (Docusate Sodium) 100 Mg Capsule 100 Mg PO PRN DAILY PRN 30 Days Polyethylene Glycol 3350 17 Gm Powd.pack 17 Gm PO PRN DAILY PRN 14 Days Flomax (Tamsulosin Hcl) 0.4 Mg Cap.er.24h 0.4 Mg PO BID 30 Days Reported Percocet 5-325 Mg Tablet (Oxycodone/Acetaminophen) 1 Each Tablet 1-2 Tab PO Q4-6HRS Exforge 10-320 Mg Tablet (Amlodipine/Valsartan) 1 Each Tablet 1 Tab PO DAILY Crestor (Rosuvastatin Calcium) 10 Mg Tablet 1 Tab PO DAILY Toprol Xl (Metoprolol Succinate) 50 Mg Tab.er.24h 1 Tab PO DAILY Vitals/I & O Vital Sign - Last 24 Hours 09/11/18 09/11/18 09/11/18 09/11/18 18:40 19:00 20:00 21:14 Temp 97.7 97.7 Pulse 64 Resp 16 18 B/P (MAP) 121/79 (93) Pulse Ox 94 94 O2 Delivery Room Air Room Air Room Air 09/11/18 09/11/18 09/12/18 09/12/18 22:14 23:00 03:00 07:00 Temp 97.9 97.8 98.1 97.9 97.8 98.1 Pulse 66 66 80 Resp 18 18 16 B/P (MAP) 130/79 (96) 133/75 (94) 131/86 (101) Pulse Ox 94 95 94 98 O2 Delivery Room Air Room Air Room Air Room Air 09/12/18 09/12/18 08:00 11:00 Temp 98.1 98.1 Pulse 71 Resp 16 B/P (MAP) 156/97 (116) Pulse Ox 96 O2 Delivery Room Air Room Air Intake and Output 09/11/18 09/11/18 09/12/18 15:00 23:00 07:00 Intake Total 200 ml 650 ml Output Total 800 ml 1000 ml 3800 ml Balance -800 ml -800 ml -3150 ml BIANCA LOPEZ MD Sep 12, 2018 13:59
[2018-09-12 15:00] VITALS: BP 159/97
[2018-09-12 19:00] VITALS: BP 151/81
[2018-09-12 23:00] VITALS: BP 163/77
[2018-09-13] MEDS: oxyCODONE/APAP 5/325 1 TAB TABLET PO PRN ×3 (02:47→16:27)
[2018-09-13 03:00] VITALS: BP 144/91
[2018-09-13] MEDS: PANTOPRAZOLE 40 MG TABLET.DR. PO SCH (05:39)
[2018-09-13] MEDS: DEXTROSE 5% IV SCH (05:39)
[2018-09-13] MEDS: ACYCLOVIR SODIUM IV SCH (05:39)
[2018-09-13] MEDS: CEFEPIME HCL IV Push 2 GM VIAL. IVP SCH (05:40)
[2018-09-13 07:00] VITALS: BP 132/83
[2018-09-13] MEDS: INSULIN LISPRO 300 UNITS/3 ML INSULN.PEN. SQ SCH ×3 (08:00→17:00)
[2018-09-13 08:13] LABS: BASO % 0 % (0-3); EOS # 0.4 x10^3/uL (0.0-0.7); EOS % 3 % (0-3); HEMATOCRIT 49.2 % (39.0-53.0); HEMOGLOBIN 16.2 g/dL (13.0-17.5); LYMPH # 2.1 x10^3/uL (1.0-4.8); LYMPH % 13 % (24-48); MEAN CORPUSCULAR HEMOGLOBIN 30 pg (25-35); MEAN CORPUSCULAR HGB CONC 33 g/dL (31-37); MEAN CORPUSCULAR VOLUME 90 fL (79-100); MONO # 1.7 x10^3/uL (0.0-1.1); MONO % 10 % (0-9); NEUT # 11.7 x10^3uL (1.8-7.7); NEUT % 73 % (31-73); PLATELET COUNT 181 x10^3/uL (140-400); RED BLOOD COUNT 5.44 x10^6/uL (4.30-5.70); RED CELL DISTRIBUTION WIDTH 14.9 % (11.5-14.5); WHITE BLOOD COUNT 15.9 x10^3/uL (4.0-11.0)
[2018-09-13] MEDS: GABAPENTIN 100 MG CAPSULE. PO SCH ×2 (08:14→14:00)
[2018-09-13] MEDS: MULTIVITAMIN with MINERAL TABLET. PO SCH (08:14)
[2018-09-13] MEDS: LACTOBACILLUS RHAMNOSUS GG 1 CAPSULE. PO SCH (08:14)
[2018-09-13] MEDS: ASPIRIN ENTERIC COATED 81 MG TABLET.DR. PO SCH (08:14)
[2018-09-13] MEDS: CETIRIZINE HCL 10 MG TABLET. PO SCH (08:14)
[2018-09-13] MEDS: THIAMINE 100 MG TABLET. PO SCH (08:15)
[2018-09-13] MEDS: LOSARTAN POTASSIUM 50 MG TABLET. PO SCH (08:15)
[2018-09-13] MEDS: DOXYCYCLINE HYCLATE 100 MG TABLET PO SCH (08:15)
[2018-09-13] MEDS: amLODIPine BESYLATE 10 MG TABLET PO SCH (08:15)
[2018-09-13] MEDS: CALCIUM CARBONATE 500 MG TABLET PO SCH (08:16)
[2018-09-13] MEDS: predniSONE 20 MG TABLET PO SCH (08:16)
[2018-09-13] MEDS: METOPROLOL SUCC 24HR ER 50 MG TAB.ER.24H. PO SCH (08:17)
[2018-09-13] MEDS: ENOXAPARIN 40 MG/0.4 ML SYRINGE. SQ SCH (08:17)
[2018-09-13] MEDS: BISACODYL 5 MG TABLET.DR. PO SCH (08:21)
[2018-09-13] MEDS: VANCOMYCIN 125 MG/2.5 ML ORAL SOLUTION. PO SCH (08:23)
[2018-09-13 08:26] LABS: PROTHROMBIN TIME PATIENT 14.9 SEC (11.7-14.0)
[2018-09-13 08:28] LABS: CALCIUM 7.9 mg/dL (8.5-10.1); MAGNESIUM 2.2 mg/dL (1.8-2.4); POTASSIUM 3.8 mmol/L (3.5-5.1)
--- NOTE | 2018-09-13 08:28 | PDOC ---
PROGRESS NOTES Chief Complaint Chief Complaint Transverse myelitis- Cauda Equina Syndrome Bilateral LE weakness S/p laminectomy (06/2018) L3-L5 Recent admission for UTI/C.Diff (07/2018) Neurogenic bladder- requiring straight cath x2 months Hyperlipidemia Essential hypertension leukocytosis from steroids Recurrent urinary tract infection, 07/2018 pansensitive Escherichia coli, treated with ciprofloxacin. History of Clostridium difficile, 07/2018, treated, no recurrence. Status post laminectomy, 06/30/2018, L3-L5. Bilateral lower extremity weakness. Hyperlipidemia. Hypertension. Hyperglycemia. Non-occlusive thrombus, right posterior tibial and peroneal vein H/O seasonal allergies. History of Present Illness History of Present Illness S/p PICC line trialysis catheter 09/09 and feels improved after plasmapheresis x4 A bit less weak, no vomiting, some worse LE edema, better with ambulating, then raising. Able to put his knees together now. Denies CP or SOB. He is going to his final session of pheresis today Plan: Cefepime, acyclovir and doxycycline since 09/05 as well as steroids per ID, awaiting final culture and serology data - but this is negative, can likely d/c without any antimicrobials, simply steroids per Neuro p.o. vancomycin prophylaxis, b.i.d. dosing. Awaiting plasmapheresis again today - will be 5 total sessions likely can discharge today on steroids. Will d/w neurology Vitals Vitals Vital Signs Date Time Temp Pulse Resp B/P (MAP) Pulse Ox O2 Delivery O2 Flow Rate FiO2 09/13/18 08:17 84 132/83 09/13/18 08:01 Room Air 09/13/18 07:00 97.7 18 98 97.7 Physical Exam Physical Exam GENERAL: Propped up in bed, alert, smiling HEENT: Oropharynx clear NECK: Supple. LUNGS: Clear bilaterally. No wheezing. HEART: S1, S2. ABDOMEN: Obese, soft, NT EXTREMITIES: Bilateral trace pedal edema. NEUROLOGIC: Alert and oriented x 3. Lower extremity weakness bilaterally can move LLE better and ? more with right SPINE: Back incision well healed, nontender. No surrounding redness or erythema. SKIN: Warm, dry. No generalized rash. PIV, right forearm, new. R subclavian clean trace bleed - General: Alert, Oriented X3, Cooperative, No acute distress Heart: Regular rate Lungs: Clear Abdomen: Normal bowel sounds, Soft, No tenderness Extremities: No clubbing, No cyanosis Labs LABS Laboratory Tests Test 09/12/18 11:32 09/12/18 16:53 09/12/18 20:44 09/13/18 07:32 Glucose (Fingerstick) 91 mg/dL (70-99) 176 mg/dL (70-99) 126 mg/dL (70-99) 91 mg/dL (70-99) Test 09/13/18 08:00 White Blood Count 15.9 x10^3/uL (4.0-11.0) Red Blood Count 5.44 x10^6/uL (4.30-5.70) Hemoglobin 16.2 g/dL (13.0-17.5) Hematocrit 49.2 % (39.0-53.0) Mean Corpuscular Volume 90 fL (79-100) Mean Corpuscular Hemoglobin 30 pg (25-35) Mean Corpuscular Hemoglobin Concent 33 g/dL (31-37) Red Cell Distribution Width 14.9 % (11.5-14.5) Platelet Count 181 x10^3/uL (140-400) Neutrophils (%) (Auto) 73 % (31-73) Lymphocytes (%) (Auto) 13 % (24-48) Monocytes (%) (Auto) 10 % (0-9) Eosinophils (%) (Auto) 3 % (0-3) Basophils (%) (Auto) 0 % (0-3) Neutrophils # (Auto) 11.7 x10^3uL (1.8-7.7) Lymphocytes # (Auto) 2.1 x10^3/uL (1.0-4.8) Monocytes # (Auto) 1.7 x10^3/uL (0.0-1.1) Eosinophils # (Auto) 0.4 x10^3/uL (0.0-0.7) Basophils # (Auto) 0.0 x10^3/uL (0.0-0.2) Comment Review of Relevant I have reviewed the following items franc (where applicable) has been applied. Labs Laboratory Tests Test 09/11/18 11:12 09/11/18 11:15 09/11/18 16:46 09/11/18 20:59 Glucose (Fingerstick) 104 mg/dL (70-99) 118 mg/dL (70-99) 128 mg/dL (70-99) Fibrinogen 125 mg/dL (200-440) Test 09/12/18 05:00 09/12/18 07:53 09/12/18 11:32 09/12/18 16:53 White Blood Count 12.6 x10^3/uL (4.0-11.0) Red Blood Count 5.00 x10^6/uL (4.30-5.70) Hemoglobin 14.8 g/dL (13.0-17.5) Hematocrit 45.1 % (39.0-53.0) Mean Corpuscular Volume 90 fL (79-100) Mean Corpuscular Hemoglobin 30 pg (25-35) Mean Corpuscular Hemoglobin Concent 33 g/dL (31-37) Red Cell Distribution Width 14.5 % (11.5-14.5) Platelet Count 155 x10^3/uL (140-400) Neutrophils (%) (Auto) 75 % (31-73) Lymphocytes (%) (Auto) 11 % (24-48) Monocytes (%) (Auto) 12 % (0-9) Eosinophils (%) (Auto) 1 % (0-3) Basophils (%) (Auto) 0 % (0-3) Neutrophils # (Auto) 9.5 x10^3uL (1.8-7.7) Lymphocytes # (Auto) 1.4 x10^3/uL (1.0-4.8) Monocytes # (Auto) 1.5 x10^3/uL (0.0-1.1) Eosinophils # (Auto) 0.1 x10^3/uL (0.0-0.7) Basophils # (Auto) 0.0 x10^3/uL (0.0-0.2) Prothrombin Time 17.8 SEC (11.7-14.0) Prothromb Time International Ratio 1.5 (0.8-1.1) Activated Partial Thromboplast Time 31 SEC (24-38) Fibrinogen 95 mg/dL (200-440) Sodium Level 144 mmol/L (136-145) Potassium Level 4.0 mmol/L (3.5-5.1) Chloride Level 112 mmol/L (98-107) Carbon Dioxide Level 22 mmol/L (21-32) Anion Gap 10 (6-14) Calcium Level 7.5 mg/dL (8.5-10.1) Magnesium Level 2.4 mg/dL (1.8-2.4) Albumin 2.8 g/dL (3.4-5.0) Glucose (Fingerstick) 80 mg/dL (70-99) 91 mg/dL (70-99) 176 mg/dL (70-99) Test 09/12/18 20:44 09/13/18 07:32 09/13/18 08:00 Glucose (Fingerstick) 126 mg/dL (70-99) 91 mg/dL (70-99) White Blood Count 15.9 x10^3/uL (4.0-11.0) Red Blood Count 5.44 x10^6/uL (4.30-5.70) Hemoglobin 16.2 g/dL (13.0-17.5) Hematocrit 49.2 % (39.0-53.0) Mean Corpuscular Volume 90 fL (79-100) Mean Corpuscular Hemoglobin 30 pg (25-35) Mean Corpuscular Hemoglobin Concent 33 g/dL (31-37) Red Cell Distribution Width 14.9 % (11.5-14.5) Platelet Count 181 x10^3/uL (140-400) Neutrophils (%) (Auto) 73 % (31-73) Lymphocytes (%) (Auto) 13 % (24-48) Monocytes (%) (Auto) 10 % (0-9) Eosinophils (%) (Auto) 3 % (0-3) Basophils (%) (Auto) 0 % (0-3) Neutrophils # (Auto) 11.7 x10^3uL (1.8-7.7) Lymphocytes # (Auto) 2.1 x10^3/uL (1.0-4.8) Monocytes # (Auto) 1.7 x10^3/uL (0.0-1.1) Eosinophils # (Auto) 0.4 x10^3/uL (0.0-0.7) Basophils # (Auto) 0.0 x10^3/uL (0.0-0.2) Laboratory Tests Test 09/12/18 11:32 09/12/18 16:53 09/12/18 20:44 09/13/18 07:32 Glucose (Fingerstick) 91 mg/dL (70-99) 176 mg/dL (70-99) 126 mg/dL (70-99) 91 mg/dL (70-99) Test 09/13/18 08:00 White Blood Count 15.9 x10^3/uL (4.0-11.0) Red Blood Count 5.44 x10^6/uL (4.30-5.70) Hemoglobin 16.2 g/dL (13.0-17.5) Hematocrit 49.2 % (39.0-53.0) Mean Corpuscular Volume 90 fL (79-100) Mean Corpuscular Hemoglobin 30 pg (25-35) Mean Corpuscular Hemoglobin Concent 33 g/dL (31-37) Red Cell Distribution Width 14.9 % (11.5-14.5) Platelet Count 181 x10^3/uL (140-400) Neutrophils (%) (Auto) 73 % (31-73) Lymphocytes (%) (Auto) 13 % (24-48) Monocytes (%) (Auto) 10 % (0-9) Eosinophils (%) (Auto) 3 % (0-3) Basophils (%) (Auto) 0 % (0-3) Neutrophils # (Auto) 11.7 x10^3uL (1.8-7.7) Lymphocytes # (Auto) 2.1 x10^3/uL (1.0-4.8) Monocytes # (Auto) 1.7 x10^3/uL (0.0-1.1) Eosinophils # (Auto) 0.4 x10^3/uL (0.0-0.7) Basophils # (Auto) 0.0 x10^3/uL (0.0-0.2) Microbiology 09/05/18 CSF Gram Stain - Final, Complete 09/03/18 Urine Culture - Final, Complete 09/03/18 Urine Culture Result 1 (LUIS M) - Final, Complete Medications Current Medications Gadobutrol (Gadavist) 10 mmol 1X ONCE IV Last administered on 09/03/18at 15:35 ; Start 09/03/18 at 15:15; Stop 09/03/18 at 15:16; Status DC Aspirin (Ecotrin) 81 mg DAILYWBKFT PO Last administered on 09/13/18 08:14; Start 09/03/18 at 16:30 Docusate Sodium (Colace) 100 mg PRN DAILY PRN PO HARD STOOLS; Start 09/03/18 at 15:30 Tamsulosin HCl (Flomax) 0.4 mg BID PO Last administered on 09/08/18 09:00; Start 09/03/18 at 21:00; Stop 09/08/18 at 10:46; Status DC Non-Formulary Medication (Amlodipine/ Valsartan (Exforge 10-320 Mg Tablet)) 1 tab DAILY PO ; Start 09/04/18 at 09:00; Status UNV Metoprolol Succinate (Toprol Xl) 50 mg DAILY PO Last administered on 09/13/18 08:17; Start 09/03/18 at 16:30 Polyethylene Glycol (miraLAX PACKET) 17 gm PRN DAILY PRN PO CONSTIPATION 2ND CHOICE; Start 09/04/18 at 09:00 Atorvastatin Calcium (Lipitor) 40 mg QHS PO Last administered on 09/05/18at 21: 01; Start 09/03/18 at 21:00; Stop 09/06/18 at 15:52; Status DC Oxycodone/ Acetaminophen (Percocet 5/325) 1 tab PRN Q4HRS PRN PO PAIN; Start at 15:30; Stop 09/03/18 at 17:31; Status DC Amlodipine Besylate (Norvasc) 10 mg DAILY PO Last administered on 09/13/18 08: 15; Start 09/03/18 at 16:30 Losartan Potassium (Cozaar) 100 mg DAILY PO Last administered on 09/13/18 08:15 ; Start 09/03/18 at 16:30 Oxycodone/ Acetaminophen (Percocet 5/325) 1 tab PRN Q6HRS PRN PO MODERATE PAIN Last administered on 09/04/18 11:07; Start 09/03/18 at 17:30; Stop 09/04/18 at 13:35; Status DC Ciprofloxacin (Cipro) 500 mg BID PO Last administered on 09/05/18 08:27; Start 09/03/18 at 21:00; Stop 09/05/18 at 13:20; Status DC Oxycodone/ Acetaminophen (Percocet 5/325) 2 tab PRN Q6HRS PRN PO SEVERE PAIN; Start 09/03/18 at 17:45 Acetaminophen (Tylenol) 650 mg PRN Q4HRS PRN PO MILD PAIN Last administered on 09/03/18at 21:01; Start 09/03/18 at 18:45 Enoxaparin Sodium (Lovenox 120mg Syringe) 120 mg Q12HR SQ Last administered on 09/04/18at 07:55; Start 09/04/18 at 09:00; Stop 09/04/18 at 15:42; Status DC Methylprednisolone (Medrol) 8 mg BID PO Last administered on 09/04/18at 11:06; Start 09/04/18 at 10:00; Stop 09/04/18 at 13:28; Status DC Methylprednisolone (Medrol) 4 mg BIDPCLD PO ; Start 09/04/18 at 12:30; Stop at 13:28; Status DC Methylprednisolone (Medrol) 4 mg TIDPC PO ; Start 09/05/18 at 08:30; Stop at 08:30; Status DC Methylprednisolone (Medrol) 8 mg QHS PO ; Start 09/05/18 at 21:00; Stop at 21:00; Status DC Methylprednisolone (Medrol) 4 mg QIDAFTMEAL PO ; Start 09/06/18 at 09:00; Stop 09/06/18 at 09:00; Status DC Methylprednisolone (Medrol) 4 mg TID PO ; Start 09/07/18 at 09:00; Stop at 09:00; Status DC Methylprednisolone (Medrol) 4 mg BID PO ; Start 09/08/18 at 09:00; Stop at 09:00; Status DC Methylprednisolone (Medrol) 4 mg DAILY PO ; Start 09/09/18 at 09:00; Stop at 09:00; Status DC Pantoprazole Sodium (Protonix) 40 mg DAILYAC PO Last administered on 09/13/18at 05:39; Start 09/04/18 at 10:00 Bisacodyl (Dulcolax Tab) 10 mg DAILY PO Last administered on 09/09/18at 08:25; Start 09/04/18 at 10:00 Bisacodyl (Dulcolax Supp) 10 mg PRN DAILY PRN [place] CONSTIPATION 1ST RECTAL CHOICE Last administered on 09/04/18at 19:38; Start 09/04/18 at 09:30 Docusate Sodium (Enemeez) 283 mg PRN DAILY PRN [place] CONSTIPATION 2ND RECTAL CHOICE; Start 09/04/18 at 09:30 Gadobutrol (Gadavist) 10 mmol 1X ONCE IV Last administered on 09/04/18at 13:26 ; Start 09/04/18 at 13:30; Stop 09/04/18 at 13:31; Status DC Methylprednisolone Sodium Succinate (SOLU-Medrol 125MG VIAL) 500 mg BID IV ; Start 09/04/18 at 21:00; Status UNV Methylprednisolone Sodium Succinate 500 mg/Sodium Chloride 100 ml @ 100 mls/hr Q12HR IV Last administered on 09/09/18at 08:30; Start 09/04/18 at 21:00; Stop 09/09/18 at 11:59; Status DC Methylprednisolone Sodium Succinate 500 mg/Sodium Chloride 100 ml @ 100 mls/hr Q12HR IV ; Start 09/04/18 at 21:00; Status Cancel Oxycodone/ Acetaminophen (Percocet 5/325) 1 tab PRN Q4HRS PRN PO MODERATE PAIN Last administered on 09/13/18 06:58; Start 09/04/18 at 13:45 Hydrocortisone Acetate (Anucort-Hc) 25 mg PRN DAILY PRN [place] RECTAL PAIN; Start 09/04/18 at 13:30 Enoxaparin Sodium (Lovenox 120mg Syringe) 110 mg Q12HR SQ Last administered on 09/05/18at 21:35; Start 09/04/18 at 21:00; Stop 09/06/18 at 06:49; Status DC Lactobacillus Rhamnosus (Culturelle) 1 cap BID PO Last administered on 08:14; Start 09/04/18 at 21:00 Cefepime HCl (Maxipime) 2 gm Q8HRS IVP Last administered on 09/13/18 05:40; Start 09/05/18 at 14:00 Vancomycin HCl (Vancomycin Oral Solution) 125 mg BID PO Last administered on 08:23; Start 09/05/18 at 21:00 Acyclovir Sodium 750 mg/Dextrose 265 ml @ 265 mls/hr Q8HRS IV Last administered on 09/13/18 05:39; Start 09/05/18 at 14:00 Doxycycline Hyclate (Vibra-Tab) 100 mg BID PO Last administered on 09/13/18 08: 15; Start 09/05/18 at 21:00 Info (Anti-Coagulation Monitoring By Pharmacy) 1 each PRN DAILY PRN MC SEE COMMENTS Last administered on 09/07/18 15:56; Start 09/05/18 at 14:00; Stop 09/10/18 at 15:10; Status DC Enoxaparin Sodium (Lovenox 120mg Syringe) 120 mg Q12HR SQ ; Start 09/06/18 at 06 :49; Status Cancel Enoxaparin Sodium (Lovenox 120mg Syringe) 120 mg Q12HR SQ Last administered on 09/06/18 08:39; Start 09/06/18 at 09:00; Stop 09/06/18 at 16:44; Status DC Cetirizine HCl (ZyrTEC) 10 mg DAILY PO Last administered on 09/06/18 15:12; Start 09/04/18 at 11:00; Stop 09/06/18 at 15:53; Status DC Insulin Human Lispro (HumaLOG) 0-7 UNITS TIDWMEALS SQ Last administered on 17:11; Start 09/06/18 at 17:00 Dextrose (Dextrose 50%-Water Syringe) 12.5 gm PRN Q15MIN PRN IV SEE COMMENTS; Start 09/06/18 at 12:30 Multivitamins (Thera M Plus) 1 tab DAILY PO Last administered on 09/13/18 08:14 ; Start 09/06/18 at 14:00 Calcium Carbonate/ Glycine (Oscal) 500 mg DAILY PO Last administered on 08:16; Start 09/06/18 at 14:00 Thiamine Mononitrate (Vitamin B-1) 100 mg DAILY PO Last administered on 08:15; Start 09/06/18 at 14:00 Cetirizine HCl (ZyrTEC) 10 mg DAILY PO Last administered on 09/13/18 08:14; Start 09/06/18 at 15:00 Rivaroxaban (Xarelto) 15 mg BIDWMEALS PO Last administered on 09/06/18at 17:23; Start 09/06/18 at 17:00; Stop 09/07/18 at 08:22; Status DC Enoxaparin Sodium (Lovenox Per Pharmacy Treatment Dosing) 1 each PRN DAILY PRN MC SEE COMMENTS; Start 09/07/18 at 11:15; Stop 09/08/18 at 12:11; Status DC Enoxaparin Sodium (Lovenox 120mg Syringe) 120 mg Q12HR SQ Last administered on 09/08/18at 09:24; Start 09/07/18 at 11:15; Stop 09/08/18 at 12:10; Status DC Gabapentin (Neurontin) 100 mg TID PO Last administered on 09/08/18at 14:13; Start 09/07/18 at 21:00; Stop 09/08/18 at 16:27; Status DC Gabapentin (Neurontin) 300 mg TID PO Last administered on 09/13/18at 08:14; Start 09/08/18 at 21:00 Lidocaine/Sodium Bicarbonate (Buffered Lidocaine 1%) 3 ml STK-MED ONCE .ROUTE ; Start 09/09/18 at 08:52; Stop 09/09/18 at 08:53; Status DC Lidocaine/Sodium Bicarbonate (Buffered Lidocaine 1%) 3 ml 1X ONCE INJ Last administered on 09/09/18at 09:43; Start 09/09/18 at 09:30; Stop 09/09/18 at 09:31; Status DC Enoxaparin Sodium (Lovenox Per Pharmacy Prophylaxis Dosing) 1 each DAILY PRN MC SEE COMMENTS; Start 09/09/18 at 11:15 Enoxaparin Sodium (Lovenox 40mg Syringe) 40 mg DAILY SQ Last administered on 09/13/18at 08:17; Start 09/09/18 at 12:00 Prednisone (Prednisone) 70 mg DAILY PO Last administered on 09/13/18at 08:16; Start 09/09/18 at 12:00; Stop 09/15/18 at 09:01 Prednisone (Prednisone) 50 mg 1X ONCE PO ; Start 09/16/18 at 09:00; Stop at 09:01 Prednisone (Prednisone) 40 mg 1X ONCE PO ; Start 09/17/18 at 09:00; Stop at 09:01 Prednisone (Prednisone) 30 mg 1X ONCE PO ; Start 09/18/18 at 09:00; Stop at 09:01 Prednisone (Prednisone) 20 mg DAILY PO ; Start 09/19/18 at 09:00; Stop 09/21/18 at 09:01 Prednisone (Prednisone) 10 mg 1X ONCE PO ; Start 09/22/18 at 09:00; Stop at 09:01 Prednisone (Prednisone) 10 mg 1X ONCE PO ; Start 09/24/18 at 09:00; Stop at 09:01 Potassium Chloride (Klor-Con) 40 meq 1X STAT PO Last administered on 09/09/18at 13:54; Start 09/09/18 at 13:39; Stop 09/09/18 at 13:43; Status DC Albumin Human 3,000 ml @ 0 mls/hr 1X ONCE IV Last administered on 09/09/18at 15 :10; Start 09/09/18 at 14:00; Stop 09/09/18 at 14:01; Status DC Heparin Sodium (Porcine) (Heparin Sodium) 5,000 unit 1X ONCE IV Last administered on 09/09/18at 14:00; Start 09/09/18 at 14:00; Stop 09/09/18 at 14:01; Status DC Albumin Human 3,000 ml @ 0 mls/hr 1X ONCE IV Last administered on 09/10/18at 13 :03; Start 09/10/18 at 09:00; Stop 09/10/18 at 09:01; Status DC Calcium Gluconate 2000 mg/Dextrose 120 ml @ 220 mls/hr 1X ONCE IV Last administered on 09/10/18at 13:04; Start 09/10/18 at 08:45; Stop 09/10/18 at 09:17; Status DC Sodium Chloride 1,000 ml @ 500 mls/hr Q2H IV ; Start 09/11/18 at 12:45; Stop 09/11/18 at 15:44; Status DC Albumin Human 500 ml @ 500 mls/hr Q1HR IV Last administered on 09/11/18at 14:03 ; Start 09/11/18 at 13:00; Stop 09/11/18 at 17:59; Status DC Calcium Gluconate 2000 mg/Sodium Chloride 120 ml @ 220 mls/hr 1X ONCE IV Last administered on 09/11/18at 14:05; Start 09/11/18 at 13:00; Stop 09/11/18 at 13: 32; Status DC Heparin Sodium (Porcine) (Heparin Sodium) 5,000 unit 1X ONCE IV Last administered on 09/11/18at 14:02; Start 09/11/18 at 13:30; Stop 09/11/18 at 13:31; Status DC Heparin Sodium (Porcine) (Heparin Sodium) 10,000 unit STK-MED ONCE .ROUTE ; Start 09/11/18 at 13:27; Stop 09/11/18 at 13:28; Status DC Albumin Human 2,500 ml @ 500 mls/hr 1X ONCE IV Last administered on 09/12/18at 08:28; Start 09/12/18 at 08:30; Stop 09/12/18 at 13:29; Status DC Calcium Gluconate 2000 mg/Sodium Chloride 120 ml @ 120 mls/hr 1X ONCE IV Last administered on 09/12/18at 08:29; Start 09/12/18 at 08:30; Stop 09/12/18 at 09: 29; Status DC Heparin Sodium (Porcine) (Heparin Sodium) 5,000 unit 1X ONCE IV Last administered on 09/12/18at 08:27; Start 09/12/18 at 08:30; Stop 09/12/18 at 08:31; Status DC Heparin Sodium (Porcine) (Heparin Sodium) 10,000 unit STK-MED ONCE .ROUTE ; Start 09/12/18 at 08:24; Stop 09/12/18 at 08:25; Status DC Active Scripts Active Cipro (Ciprofloxacin Hcl) 500 Mg Tablet 1 Tab PO BID Aspirin Ec (Aspirin) 81 Mg Tablet.dr 81 Mg PO DAILYWBKFT 30 Days Colace (Docusate Sodium) 100 Mg Capsule 100 Mg PO PRN DAILY PRN 30 Days Polyethylene Glycol 3350 17 Gm Powd.pack 17 Gm PO PRN DAILY PRN 14 Days Flomax (Tamsulosin Hcl) 0.4 Mg Cap.er.24h 0.4 Mg PO BID 30 Days Reported Percocet 5-325 Mg Tablet (Oxycodone/Acetaminophen) 1 Each Tablet 1-2 Tab PO Q4-6HRS Exforge 10-320 Mg Tablet (Amlodipine/Valsartan) 1 Each Tablet 1 Tab PO DAILY Crestor (Rosuvastatin Calcium) 10 Mg Tablet 1 Tab PO DAILY Toprol Xl (Metoprolol Succinate) 50 Mg Tab.er.24h 1 Tab PO DAILY Vitals/I & O Vital Sign - Last 24 Hours 09/12/18 09/12/18 09/12/18 09/12/18 11:00 15:00 15:15 15:16 Temp 98.1 98.1 98.1 98.1 Pulse 71 87 87 87 Resp 16 18 B/P (MAP) 156/97 (116) 159/97 (117) 159/97 159/97 Pulse Ox 96 96 O2 Delivery Room Air Room Air 09/12/18 09/12/18 09/12/18 09/12/18 15:16 19:00 20:00 23:00 Temp 97.5 97.4 97.5 97.4 Pulse 87 66 67 Resp 18 18 B/P (MAP) 159/97 151/81 (104) 163/77 (105) Pulse Ox 93 94 O2 Delivery Room Air Room Air Room Air 09/13/18 09/13/18 09/13/18 09/13/18 02:47 03:00 03:47 06:58 Temp 97.5 97.5 Pulse 73 Resp 18 B/P (MAP) 144/91 (108) Pulse Ox 94 97 97 97 O2 Delivery Room Air Room Air Room Air 09/13/18 09/13/18 09/13/18 09/13/18 07:00 07:20 08:01 08:15 Temp 97.7 97.7 Pulse 84 84 Resp 18 B/P (MAP) 132/83 (99) 132/83 Pulse Ox 98 O2 Delivery Room Air Room Air Room Air 09/13/18 09/13/18 08:15 08:17 Pulse 84 84 B/P (MAP) 132/83 132/83 Intake and Output 09/12/18 09/12/18 09/13/18 15:00 23:00 07:00 Intake Total 120 ml Output Total 650 ml Balance 120 ml -650 ml MANDY COOMBS MD Sep 13, 2018 08:28
--- NOTE | 2018-09-13 09:15 | PDOC ---
PROGRESS NOTES Assessment T9-10 transverse myelitis, improving with plasma exchange Lumbar spondylosis, status post decompression Plan Prednisone taper Plasma exchange, today Lab: NMO, outpatient basis. Neurontin 300 mg tid. OT/PT. Can go to inpatient rehab today. Follow-up with Dr. Carrasquillo in 2-3 weeks. Subjective Continues to feel better, having more sensation in the perineum Objective Vital Signs Date Time Temp Pulse Resp B/P (MAP) Pulse Ox O2 Delivery O2 Flow Rate FiO2 09/13/18 08:17 84 132/83 09/13/18 08:01 Room Air 09/13/18 07:00 97.7 18 98 97.7 Intake and Output 09/13/18 06:59 Intake Total 120 ml Output Total 650 ml Balance -530 ml Intake Oral 120 ml Output Urine Total 650 ml # Voids 2 PHYSICAL EXAM Alert. Oriented to time, place and person. PERRL. EOMI. CN: no focal findings. Muscle tone: normal. Muscle strength: 3/5 legs, 5/5 arms DTR: 2+ arms, 0+ legs Plantar reflex: silent Gait: not examined in bed. Sensory exam: T12 sensory level, but improved sensation. No cerebellar signs elicited. Review of Relevant I have reviewed the following items franc (where applicable) has been applied. Labs Laboratory Tests Test 09/11/18 11:12 09/11/18 11:15 09/11/18 16:46 09/11/18 20:59 Glucose (Fingerstick) 104 mg/dL (70-99) 118 mg/dL (70-99) 128 mg/dL (70-99) Fibrinogen 125 mg/dL (200-440) Test 09/12/18 05:00 09/12/18 07:53 09/12/18 11:32 09/12/18 16:53 White Blood Count 12.6 x10^3/uL (4.0-11.0) Red Blood Count 5.00 x10^6/uL (4.30-5.70) Hemoglobin 14.8 g/dL (13.0-17.5) Hematocrit 45.1 % (39.0-53.0) Mean Corpuscular Volume 90 fL (79-100) Mean Corpuscular Hemoglobin 30 pg (25-35) Mean Corpuscular Hemoglobin Concent 33 g/dL (31-37) Red Cell Distribution Width 14.5 % (11.5-14.5) Platelet Count 155 x10^3/uL (140-400) Neutrophils (%) (Auto) 75 % (31-73) Lymphocytes (%) (Auto) 11 % (24-48) Monocytes (%) (Auto) 12 % (0-9) Eosinophils (%) (Auto) 1 % (0-3) Basophils (%) (Auto) 0 % (0-3) Neutrophils # (Auto) 9.5 x10^3uL (1.8-7.7) Lymphocytes # (Auto) 1.4 x10^3/uL (1.0-4.8) Monocytes # (Auto) 1.5 x10^3/uL (0.0-1.1) Eosinophils # (Auto) 0.1 x10^3/uL (0.0-0.7) Basophils # (Auto) 0.0 x10^3/uL (0.0-0.2) Prothrombin Time 17.8 SEC (11.7-14.0) Prothromb Time International Ratio 1.5 (0.8-1.1) Activated Partial Thromboplast Time 31 SEC (24-38) Fibrinogen 95 mg/dL (200-440) Sodium Level 144 mmol/L (136-145) Potassium Level 4.0 mmol/L (3.5-5.1) Chloride Level 112 mmol/L (98-107) Carbon Dioxide Level 22 mmol/L (21-32) Anion Gap 10 (6-14) Calcium Level 7.5 mg/dL (8.5-10.1) Magnesium Level 2.4 mg/dL (1.8-2.4) Albumin 2.8 g/dL (3.4-5.0) Glucose (Fingerstick) 80 mg/dL (70-99) 91 mg/dL (70-99) 176 mg/dL (70-99) Test 09/12/18 20:44 09/13/18 07:32 09/13/18 08:00 Glucose (Fingerstick) 126 mg/dL (70-99) 91 mg/dL (70-99) White Blood Count 15.9 x10^3/uL (4.0-11.0) Red Blood Count 5.44 x10^6/uL (4.30-5.70) Hemoglobin 16.2 g/dL (13.0-17.5) Hematocrit 49.2 % (39.0-53.0) Mean Corpuscular Volume 90 fL (79-100) Mean Corpuscular Hemoglobin 30 pg (25-35) Mean Corpuscular Hemoglobin Concent 33 g/dL (31-37) Red Cell Distribution Width 14.9 % (11.5-14.5) Platelet Count 181 x10^3/uL (140-400) Neutrophils (%) (Auto) 73 % (31-73) Lymphocytes (%) (Auto) 13 % (24-48) Monocytes (%) (Auto) 10 % (0-9) Eosinophils (%) (Auto) 3 % (0-3) Basophils (%) (Auto) 0 % (0-3) Neutrophils # (Auto) 11.7 x10^3uL (1.8-7.7) Lymphocytes # (Auto) 2.1 x10^3/uL (1.0-4.8) Monocytes # (Auto) 1.7 x10^3/uL (0.0-1.1) Eosinophils # (Auto) 0.4 x10^3/uL (0.0-0.7) Basophils # (Auto) 0.0 x10^3/uL (0.0-0.2) Prothrombin Time 14.9 SEC (11.7-14.0) Prothromb Time International Ratio 1.2 (0.8-1.1) Activated Partial Thromboplast Time 26 SEC (24-38) Fibrinogen 152 mg/dL (200-440) Sodium Level 143 mmol/L (136-145) Potassium Level 3.8 mmol/L (3.5-5.1) Chloride Level 109 mmol/L (98-107) Carbon Dioxide Level 26 mmol/L (21-32) Anion Gap 8 (6-14) Calcium Level 7.9 mg/dL (8.5-10.1) Magnesium Level 2.2 mg/dL (1.8-2.4) Laboratory Tests Test 09/12/18 11:32 09/12/18 16:53 09/12/18 20:44 09/13/18 07:32 Glucose (Fingerstick) 91 mg/dL (70-99) 176 mg/dL (70-99) 126 mg/dL (70-99) 91 mg/dL (70-99) Test 09/13/18 08:00 White Blood Count 15.9 x10^3/uL (4.0-11.0) Red Blood Count 5.44 x10^6/uL (4.30-5.70) Hemoglobin 16.2 g/dL (13.0-17.5) Hematocrit 49.2 % (39.0-53.0) Mean Corpuscular Volume 90 fL (79-100) Mean Corpuscular Hemoglobin 30 pg (25-35) Mean Corpuscular Hemoglobin Concent 33 g/dL (31-37) Red Cell Distribution Width 14.9 % (11.5-14.5) Platelet Count 181 x10^3/uL (140-400) Neutrophils (%) (Auto) 73 % (31-73) Lymphocytes (%) (Auto) 13 % (24-48) Monocytes (%) (Auto) 10 % (0-9) Eosinophils (%) (Auto) 3 % (0-3) Basophils (%) (Auto) 0 % (0-3) Neutrophils # (Auto) 11.7 x10^3uL (1.8-7.7) Lymphocytes # (Auto) 2.1 x10^3/uL (1.0-4.8) Monocytes # (Auto) 1.7 x10^3/uL (0.0-1.1) Eosinophils # (Auto) 0.4 x10^3/uL (0.0-0.7) Basophils # (Auto) 0.0 x10^3/uL (0.0-0.2) Prothrombin Time 14.9 SEC (11.7-14.0) Prothromb Time International Ratio 1.2 (0.8-1.1) Activated Partial Thromboplast Time 26 SEC (24-38) Fibrinogen 152 mg/dL (200-440) Sodium Level 143 mmol/L (136-145) Potassium Level 3.8 mmol/L (3.5-5.1) Chloride Level 109 mmol/L (98-107) Carbon Dioxide Level 26 mmol/L (21-32) Anion Gap 8 (6-14) Calcium Level 7.9 mg/dL (8.5-10.1) Magnesium Level 2.2 mg/dL (1.8-2.4) Microbiology 09/05/18 CSF Gram Stain - Final, Complete 09/03/18 Urine Culture - Final, Complete 09/03/18 Urine Culture Result 1 (LUIS M) - Final, Complete Medications Current Medications Gadobutrol (Gadavist) 10 mmol 1X ONCE IV Last administered on 09/03/18at 15:35 ; Start 09/03/18 at 15:15; Stop 09/03/18 at 15:16; Status DC Aspirin (Ecotrin) 81 mg DAILYWBKFT PO Last administered on 09/13/18at 08:14; Start 09/03/18 at 16:30 Docusate Sodium (Colace) 100 mg PRN DAILY PRN PO HARD STOOLS; Start 09/03/18 at 15:30 Tamsulosin HCl (Flomax) 0.4 mg BID PO Last administered on 09/08/18at 09:00; Start 09/03/18 at 21:00; Stop 09/08/18 at 10:46; Status DC Non-Formulary Medication (Amlodipine/ Valsartan (Exforge 10-320 Mg Tablet)) 1 tab DAILY PO ; Start 09/04/18 at 09:00; Status UNV Metoprolol Succinate (Toprol Xl) 50 mg DAILY PO Last administered on 09/13/18 08:17; Start 09/03/18 at 16:30 Polyethylene Glycol (miraLAX PACKET) 17 gm PRN DAILY PRN PO CONSTIPATION 2ND CHOICE; Start 09/04/18 at 09:00 Atorvastatin Calcium (Lipitor) 40 mg QHS PO Last administered on 09/05/18at 21: 01; Start 09/03/18 at 21:00; Stop 09/06/18 at 15:52; Status DC Oxycodone/ Acetaminophen (Percocet 5/325) 1 tab PRN Q4HRS PRN PO PAIN; Start at 15:30; Stop 09/03/18 at 17:31; Status DC Amlodipine Besylate (Norvasc) 10 mg DAILY PO Last administered on 09/13/18 08: 15; Start 09/03/18 at 16:30 Losartan Potassium (Cozaar) 100 mg DAILY PO Last administered on 09/13/18 08:15 ; Start 09/03/18 at 16:30 Oxycodone/ Acetaminophen (Percocet 5/325) 1 tab PRN Q6HRS PRN PO MODERATE PAIN Last administered on 09/04/18at 11:07; Start 09/03/18 at 17:30; Stop 09/04/18 at 13:35; Status DC Ciprofloxacin (Cipro) 500 mg BID PO Last administered on 09/05/18at 08:27; Start 09/03/18 at 21:00; Stop 09/05/18 at 13:20; Status DC Oxycodone/ Acetaminophen (Percocet 5/325) 2 tab PRN Q6HRS PRN PO SEVERE PAIN; Start 09/03/18 at 17:45 Acetaminophen (Tylenol) 650 mg PRN Q4HRS PRN PO MILD PAIN Last administered on 09/03/18at 21:01; Start 09/03/18 at 18:45 Enoxaparin Sodium (Lovenox 120mg Syringe) 120 mg Q12HR SQ Last administered on 09/04/18at 07:55; Start 09/04/18 at 09:00; Stop 09/04/18 at 15:42; Status DC Methylprednisolone (Medrol) 8 mg BID PO Last administered on 09/04/18at 11:06; Start 09/04/18 at 10:00; Stop 09/04/18 at 13:28; Status DC Methylprednisolone (Medrol) 4 mg BIDPCLD PO ; Start 09/04/18 at 12:30; Stop at 13:28; Status DC Methylprednisolone (Medrol) 4 mg TIDPC PO ; Start 09/05/18 at 08:30; Stop at 08:30; Status DC Methylprednisolone (Medrol) 8 mg QHS PO ; Start 09/05/18 at 21:00; Stop at 21:00; Status DC Methylprednisolone (Medrol) 4 mg QIDAFTMEAL PO ; Start 09/06/18 at 09:00; Stop 09/06/18 at 09:00; Status DC Methylprednisolone (Medrol) 4 mg TID PO ; Start 09/07/18 at 09:00; Stop at 09:00; Status DC Methylprednisolone (Medrol) 4 mg BID PO ; Start 09/08/18 at 09:00; Stop at 09:00; Status DC Methylprednisolone (Medrol) 4 mg DAILY PO ; Start 09/09/18 at 09:00; Stop at 09:00; Status DC Pantoprazole Sodium (Protonix) 40 mg DAILYAC PO Last administered on 09/13/18at 05:39; Start 09/04/18 at 10:00 Bisacodyl (Dulcolax Tab) 10 mg DAILY PO Last administered on 09/09/18at 08:25; Start 09/04/18 at 10:00 Bisacodyl (Dulcolax Supp) 10 mg PRN DAILY PRN HI CONSTIPATION 1ST RECTAL CHOICE Last administered on 09/04/18at 19:38; Start 09/04/18 at 09:30 Docusate Sodium (Enemeez) 283 mg PRN DAILY PRN HI CONSTIPATION 2ND RECTAL CHOICE; Start 09/04/18 at 09:30 Gadobutrol (Gadavist) 10 mmol 1X ONCE IV Last administered on 09/04/18at 13:26 ; Start 09/04/18 at 13:30; Stop 09/04/18 at 13:31; Status DC Methylprednisolone Sodium Succinate (SOLU-Medrol 125MG VIAL) 500 mg BID IV ; Start 09/04/18 at 21:00; Status UNV Methylprednisolone Sodium Succinate 500 mg/Sodium Chloride 100 ml @ 100 mls/hr Q12HR IV Last administered on 09/09/18at 08:30; Start 09/04/18 at 21:00; Stop 09/09/18 at 11:59; Status DC Methylprednisolone Sodium Succinate 500 mg/Sodium Chloride 100 ml @ 100 mls/hr Q12HR IV ; Start 09/04/18 at 21:00; Status Cancel Oxycodone/ Acetaminophen (Percocet 5/325) 1 tab PRN Q4HRS PRN PO MODERATE PAIN Last administered on 09/13/18at 06:58; Start 09/04/18 at 13:45 Hydrocortisone Acetate (Anucort-Hc) 25 mg PRN DAILY PRN HI RECTAL PAIN; Start 09/04/18 at 13:30 Enoxaparin Sodium (Lovenox 120mg Syringe) 110 mg Q12HR SQ Last administered on 09/05/18at 21:35; Start 09/04/18 at 21:00; Stop 09/06/18 at 06:49; Status DC Lactobacillus Rhamnosus (Culturelle) 1 cap BID PO Last administered on 08:14; Start 09/04/18 at 21:00 Cefepime HCl (Maxipime) 2 gm Q8HRS IVP Last administered on 09/13/18 05:40; Start 09/05/18 at 14:00 Vancomycin HCl (Vancomycin Oral Solution) 125 mg BID PO Last administered on 08:23; Start 09/05/18 at 21:00 Acyclovir Sodium 750 mg/Dextrose 265 ml @ 265 mls/hr Q8HRS IV Last administered on 09/13/18 05:39; Start 09/05/18 at 14:00 Doxycycline Hyclate (Vibra-Tab) 100 mg BID PO Last administered on 09/13/18 08: 15; Start 09/05/18 at 21:00 Info (Anti-Coagulation Monitoring By Pharmacy) 1 each PRN DAILY PRN MC SEE COMMENTS Last administered on 09/07/18 15:56; Start 09/05/18 at 14:00; Stop 09/10/18 at 15:10; Status DC Enoxaparin Sodium (Lovenox 120mg Syringe) 120 mg Q12HR SQ ; Start 09/06/18 at 06 :49; Status Cancel Enoxaparin Sodium (Lovenox 120mg Syringe) 120 mg Q12HR SQ Last administered on 09/06/18 08:39; Start 09/06/18 at 09:00; Stop 09/06/18 at 16:44; Status DC Cetirizine HCl (ZyrTEC) 10 mg DAILY PO Last administered on 09/06/18 15:12; Start 09/04/18 at 11:00; Stop 09/06/18 at 15:53; Status DC Insulin Human Lispro (HumaLOG) 0-7 UNITS TIDWMEALS SQ Last administered on 17:11; Start 09/06/18 at 17:00 Dextrose (Dextrose 50%-Water Syringe) 12.5 gm PRN Q15MIN PRN IV SEE COMMENTS; Start 09/06/18 at 12:30 Multivitamins (Thera M Plus) 1 tab DAILY PO Last administered on 09/13/18 08:14 ; Start 09/06/18 at 14:00 Calcium Carbonate/ Glycine (Oscal) 500 mg DAILY PO Last administered on 08:16; Start 09/06/18 at 14:00 Thiamine Mononitrate (Vitamin B-1) 100 mg DAILY PO Last administered on 08:15; Start 09/06/18 at 14:00 Cetirizine HCl (ZyrTEC) 10 mg DAILY PO Last administered on 09/13/18 08:14; Start 09/06/18 at 15:00 Rivaroxaban (Xarelto) 15 mg BIDWMEALS PO Last administered on 09/06/18 17:23; Start 09/06/18 at 17:00; Stop 09/07/18 at 08:22; Status DC Enoxaparin Sodium (Lovenox Per Pharmacy Treatment Dosing) 1 each PRN DAILY PRN MC SEE COMMENTS; Start 09/07/18 at 11:15; Stop 09/08/18 at 12:11; Status DC Enoxaparin Sodium (Lovenox 120mg Syringe) 120 mg Q12HR SQ Last administered on 09/08/18at 09:24; Start 09/07/18 at 11:15; Stop 09/08/18 at 12:10; Status DC Gabapentin (Neurontin) 100 mg TID PO Last administered on 09/08/18 14:13; Start 09/07/18 at 21:00; Stop 09/08/18 at 16:27; Status DC Gabapentin (Neurontin) 300 mg TID PO Last administered on 09/13/18 08:14; Start 09/08/18 at 21:00 Lidocaine/Sodium Bicarbonate (Buffered Lidocaine 1%) 3 ml STK-MED ONCE .ROUTE ; Start 09/09/18 at 08:52; Stop 09/09/18 at 08:53; Status DC Lidocaine/Sodium Bicarbonate (Buffered Lidocaine 1%) 3 ml 1X ONCE INJ Last administered on 09/09/18at 09:43; Start 09/09/18 at 09:30; Stop 09/09/18 at 09:31; Status DC Enoxaparin Sodium (Lovenox Per Pharmacy Prophylaxis Dosing) 1 each DAILY PRN MC SEE COMMENTS; Start 09/09/18 at 11:15 Enoxaparin Sodium (Lovenox 40mg Syringe) 40 mg DAILY SQ Last administered on 4/ 5/19at 08:17; Start 09/09/18 at 12:00 Prednisone (Prednisone) 70 mg DAILY PO Last administered on 09/13/18at 08:16; Start 09/09/18 at 12:00; Stop 09/15/18 at 09:01 Prednisone (Prednisone) 50 mg 1X ONCE PO ; Start 09/16/18 at 09:00; Stop at 09:01 Prednisone (Prednisone) 40 mg 1X ONCE PO ; Start 09/17/18 at 09:00; Stop at 09:01 Prednisone (Prednisone) 30 mg 1X ONCE PO ; Start 09/18/18 at 09:00; Stop at 09:01 Prednisone (Prednisone) 20 mg DAILY PO ; Start 09/19/18 at 09:00; Stop 09/21/18 at 09:01 Prednisone (Prednisone) 10 mg 1X ONCE PO ; Start 09/22/18 at 09:00; Stop at 09:01 Prednisone (Prednisone) 10 mg 1X ONCE PO ; Start 09/24/18 at 09:00; Stop at 09:01 Potassium Chloride (Klor-Con) 40 meq 1X STAT PO Last administered on 09/09/18at 13:54; Start 09/09/18 at 13:39; Stop 09/09/18 at 13:43; Status DC Albumin Human 3,000 ml @ 0 mls/hr 1X ONCE IV Last administered on 09/09/18at 15 :10; Start 09/09/18 at 14:00; Stop 09/09/18 at 14:01; Status DC Heparin Sodium (Porcine) (Heparin Sodium) 5,000 unit 1X ONCE IV Last administered on 09/09/18at 14:00; Start 09/09/18 at 14:00; Stop 09/09/18 at 14:01; Status DC Albumin Human 3,000 ml @ 0 mls/hr 1X ONCE IV Last administered on 09/10/18at 13 :03; Start 09/10/18 at 09:00; Stop 09/10/18 at 09:01; Status DC Calcium Gluconate 2000 mg/Dextrose 120 ml @ 220 mls/hr 1X ONCE IV Last administered on 09/10/18at 13:04; Start 09/10/18 at 08:45; Stop 09/10/18 at 09:17; Status DC Sodium Chloride 1,000 ml @ 500 mls/hr Q2H IV ; Start 09/11/18 at 12:45; Stop 09/11/18 at 15:44; Status DC Albumin Human 500 ml @ 500 mls/hr Q1HR IV Last administered on 09/11/18at 14:03 ; Start 09/11/18 at 13:00; Stop 09/11/18 at 17:59; Status DC Calcium Gluconate 2000 mg/Sodium Chloride 120 ml @ 220 mls/hr 1X ONCE IV Last administered on 09/11/18at 14:05; Start 09/11/18 at 13:00; Stop 09/11/18 at 13: 32; Status DC Heparin Sodium (Porcine) (Heparin Sodium) 5,000 unit 1X ONCE IV Last administered on 09/11/18at 14:02; Start 09/11/18 at 13:30; Stop 09/11/18 at 13:31; Status DC Heparin Sodium (Porcine) (Heparin Sodium) 10,000 unit STK-MED ONCE .ROUTE ; Start 09/11/18 at 13:27; Stop 09/11/18 at 13:28; Status DC Albumin Human 2,500 ml @ 500 mls/hr 1X ONCE IV Last administered on 09/12/18at 08:28; Start 09/12/18 at 08:30; Stop 09/12/18 at 13:29; Status DC Calcium Gluconate 2000 mg/Sodium Chloride 120 ml @ 120 mls/hr 1X ONCE IV Last administered on 09/12/18at 08:29; Start 09/12/18 at 08:30; Stop 09/12/18 at 09: 29; Status DC Heparin Sodium (Porcine) (Heparin Sodium) 5,000 unit 1X ONCE IV Last administered on 09/12/18at 08:27; Start 09/12/18 at 08:30; Stop 09/12/18 at 08:31; Status DC Heparin Sodium (Porcine) (Heparin Sodium) 10,000 unit STK-MED ONCE .ROUTE ; Start 09/12/18 at 08:24; Stop 09/12/18 at 08:25; Status DC Active Scripts Active Cipro (Ciprofloxacin Hcl) 500 Mg Tablet 1 Tab PO BID Aspirin Ec (Aspirin) 81 Mg Tablet.dr 81 Mg PO DAILYWBKFT 30 Days Colace (Docusate Sodium) 100 Mg Capsule 100 Mg PO PRN DAILY PRN 30 Days Polyethylene Glycol 3350 17 Gm Powd.pack 17 Gm PO PRN DAILY PRN 14 Days Flomax (Tamsulosin Hcl) 0.4 Mg Cap.er.24h 0.4 Mg PO BID 30 Days Reported Percocet 5-325 Mg Tablet (Oxycodone/Acetaminophen) 1 Each Tablet 1-2 Tab PO Q4-6HRS Exforge 10-320 Mg Tablet (Amlodipine/Valsartan) 1 Each Tablet 1 Tab PO DAILY Crestor (Rosuvastatin Calcium) 10 Mg Tablet 1 Tab PO DAILY Toprol Xl (Metoprolol Succinate) 50 Mg Tab.er.24h 1 Tab PO DAILY Vitals/I & O Vital Sign - Last 24 Hours 09/12/18 09/12/18 09/12/18 09/12/18 11:00 15:00 15:15 15:16 Temp 98.1 98.1 98.1 98.1 Pulse 71 87 87 87 Resp 16 18 B/P (MAP) 156/97 (116) 159/97 (117) 159/97 159/97 Pulse Ox 96 96 O2 Delivery Room Air Room Air 09/12/18 09/12/18 09/12/18 09/12/18 15:16 19:00 20:00 23:00 Temp 97.5 97.4 97.5 97.4 Pulse 87 66 67 Resp 18 18 B/P (MAP) 159/97 151/81 (104) 163/77 (105) Pulse Ox 93 94 O2 Delivery Room Air Room Air Room Air 09/13/18 09/13/18 09/13/18 09/13/18 02:47 03:00 03:47 06:58 Temp 97.5 97.5 Pulse 73 Resp 18 B/P (MAP) 144/91 (108) Pulse Ox 94 97 97 97 O2 Delivery Room Air Room Air Room Air 09/13/18 09/13/18 09/13/18 09/13/18 07:00 07:20 08:01 08:15 Temp 97.7 97.7 Pulse 84 84 Resp 18 B/P (MAP) 132/83 (99) 132/83 Pulse Ox 98 O2 Delivery Room Air Room Air Room Air 09/13/18 09/13/18 08:15 08:17 Pulse 84 84 B/P (MAP) 132/83 132/83 Intake and Output 09/12/18 09/12/18 09/13/18 14:59 22:59 06:59 Intake Total 120 ml 0 ml Output Total 650 ml Balance 120 ml -650 ml BIANCA LOPEZ MD Sep 13, 2018 09:15
--- NOTE | 2018-09-13 09:18 | PDOC ---
SUBJECTIVE Subjective No pain, getting a return of sensation to his lower abdomen and genitals. Has urge to go but still cannot empty bladder. catheter dependent. Volumes have gone up to 800 -1300 every time he is cathing for the past two days. He is going to a rehabilitation facility later today or tomorrow. OBJECTIVE Objective Physical Exam: General appearance: Alert and Oriented Head: Normocephalic, without obvious abnormality Eyes: conjunctivae/corneas clear. PERRL, EOM's intact. Fundi benign Back: no CVA pain bilaterally Lungs: Regular respirations, non labored breathing Abdomen: soft, obese, non-tender with palpation. Vital Signs Vital Signs Date Time Temp Pulse Resp B/P (MAP) Pulse Ox O2 Delivery O2 Flow Rate FiO2 09/13/18 08:17 84 132/83 09/13/18 08:15 84 132/83 09/13/18 08:15 84 132/83 09/13/18 08:01 Room Air 09/13/18 07:20 Room Air 09/13/18 07:00 97.7 84 18 132/83 (99) 98 Room Air 97.7 09/13/18 06:58 97 Room Air 09/13/18 03:47 97 09/13/18 03:00 97.5 73 18 144/91 (108) 97 Room Air 97.5 09/13/18 02:47 94 Room Air 09/12/18 23:00 97.4 67 18 163/77 (105) 94 Room Air 97.4 09/12/18 20:00 Room Air 09/12/18 19:00 97.5 66 18 151/81 (104) 93 Room Air 97.5 09/12/18 15:16 87 159/97 09/12/18 15:16 87 159/97 09/12/18 15:15 87 159/97 09/12/18 15:00 98.1 87 18 159/97 (117) 96 Room Air 98.1 09/12/18 11:00 98.1 71 16 156/97 (116) 96 Room Air 98.1 I & O Intake and Output 09/13/18 07:00 Intake Total 120 ml Output Total 650 ml Balance -530 ml Intake Oral 120 ml Output Urine Total 650 ml # Voids 2 PHYSICAL EXAM Physical Exam Physical Exam: General appearance: Alert and Oriented Head: Normocephalic, without obvious abnormality Eyes: conjunctivae/corneas clear. PERRL, EOM's intact. Fundi benign Back: no CVA pain bilaterally Lungs: Regular respirations, non labored breathing Abdomen: soft, obese, non-tender with palpation ASSESSMENT/PLAN Assessment/Plan Since patient getting huge volumes, advised him to add one more cath time and to to this right before bed to decrease overall volumes Due to medications and treatments; this should resolve after 3-4 days. He should be able to go back to QID cathing after this. Advised him to bring cath supplies with him to rehabilitation facility just in case they do not have this at the facility. Ok to discharge, from a Urology perspective whenever medical team is ready. Will sign off at this time, but please call with questions or changes in patient condition. Problems: (1) Neurogenic bladder COMMENT Lab Laboratory Tests Test 09/12/18 11:32 09/12/18 16:53 09/12/18 20:44 09/13/18 07:32 Glucose (Fingerstick) 91 mg/dL (70-99) 176 mg/dL (70-99) 126 mg/dL (70-99) 91 mg/dL (70-99) Test 09/13/18 08:00 White Blood Count 15.9 x10^3/uL (4.0-11.0) Red Blood Count 5.44 x10^6/uL (4.30-5.70) Hemoglobin 16.2 g/dL (13.0-17.5) Hematocrit 49.2 % (39.0-53.0) Mean Corpuscular Volume 90 fL (79-100) Mean Corpuscular Hemoglobin 30 pg (25-35) Mean Corpuscular Hemoglobin Concent 33 g/dL (31-37) Red Cell Distribution Width 14.9 % (11.5-14.5) Platelet Count 181 x10^3/uL (140-400) Neutrophils (%) (Auto) 73 % (31-73) Lymphocytes (%) (Auto) 13 % (24-48) Monocytes (%) (Auto) 10 % (0-9) Eosinophils (%) (Auto) 3 % (0-3) Basophils (%) (Auto) 0 % (0-3) Neutrophils # (Auto) 11.7 x10^3uL (1.8-7.7) Lymphocytes # (Auto) 2.1 x10^3/uL (1.0-4.8) Monocytes # (Auto) 1.7 x10^3/uL (0.0-1.1) Eosinophils # (Auto) 0.4 x10^3/uL (0.0-0.7) Basophils # (Auto) 0.0 x10^3/uL (0.0-0.2) Prothrombin Time 14.9 SEC (11.7-14.0) Prothromb Time International Ratio 1.2 (0.8-1.1) Activated Partial Thromboplast Time 26 SEC (24-38) Fibrinogen 152 mg/dL (200-440) Sodium Level 143 mmol/L (136-145) Potassium Level 3.8 mmol/L (3.5-5.1) Chloride Level 109 mmol/L (98-107) Carbon Dioxide Level 26 mmol/L (21-32) Anion Gap 8 (6-14) Calcium Level 7.9 mg/dL (8.5-10.1) Magnesium Level 2.2 mg/dL (1.8-2.4) JUSTEN SONG DISCHARGE RN Sep 13, 2018 09:18
--- NOTE | 2018-09-13 09:24 | PDOC ---
PROGRESS NOTES Subjective Subjective No new complaints. Objective Objective Vital Signs Date Time Temp Pulse Resp B/P (MAP) Pulse Ox O2 Delivery O2 Flow Rate FiO2 09/13/18 08:17 84 132/83 09/13/18 08:01 Room Air 09/13/18 07:00 97.7 18 98 97.7 Intake and Output 09/13/18 07:00 Intake Total 120 ml Output Total 650 ml Balance -530 ml Intake Oral 120 ml Output Urine Total 650 ml # Voids 2 Physical Exam Physical Exam He is sitting at edge of bed and good sitting balance. He continues with paraparesis and mobility and self care limitations.He is participating with therapy. Plan Plan of Care To rehab unit at [facility] for continued in patient rehab after he completes his plasmaphoresis. Comment Review of Relevant I have reviewed the following items franc (where applicable) has been applied. Labs Laboratory Tests Test 09/11/18 11:12 09/11/18 11:15 09/11/18 16:46 09/11/18 20:59 Glucose (Fingerstick) 104 mg/dL (70-99) 118 mg/dL (70-99) 128 mg/dL (70-99) Fibrinogen 125 mg/dL (200-440) Test 09/12/18 05:00 09/12/18 07:53 09/12/18 11:32 09/12/18 16:53 White Blood Count 12.6 x10^3/uL (4.0-11.0) Red Blood Count 5.00 x10^6/uL (4.30-5.70) Hemoglobin 14.8 g/dL (13.0-17.5) Hematocrit 45.1 % (39.0-53.0) Mean Corpuscular Volume 90 fL (79-100) Mean Corpuscular Hemoglobin 30 pg (25-35) Mean Corpuscular Hemoglobin Concent 33 g/dL (31-37) Red Cell Distribution Width 14.5 % (11.5-14.5) Platelet Count 155 x10^3/uL (140-400) Neutrophils (%) (Auto) 75 % (31-73) Lymphocytes (%) (Auto) 11 % (24-48) Monocytes (%) (Auto) 12 % (0-9) Eosinophils (%) (Auto) 1 % (0-3) Basophils (%) (Auto) 0 % (0-3) Neutrophils # (Auto) 9.5 x10^3uL (1.8-7.7) Lymphocytes # (Auto) 1.4 x10^3/uL (1.0-4.8) Monocytes # (Auto) 1.5 x10^3/uL (0.0-1.1) Eosinophils # (Auto) 0.1 x10^3/uL (0.0-0.7) Basophils # (Auto) 0.0 x10^3/uL (0.0-0.2) Prothrombin Time 17.8 SEC (11.7-14.0) Prothromb Time International Ratio 1.5 (0.8-1.1) Activated Partial Thromboplast Time 31 SEC (24-38) Fibrinogen 95 mg/dL (200-440) Sodium Level 144 mmol/L (136-145) Potassium Level 4.0 mmol/L (3.5-5.1) Chloride Level 112 mmol/L (98-107) Carbon Dioxide Level 22 mmol/L (21-32) Anion Gap 10 (6-14) Calcium Level 7.5 mg/dL (8.5-10.1) Magnesium Level 2.4 mg/dL (1.8-2.4) Albumin 2.8 g/dL (3.4-5.0) Glucose (Fingerstick) 80 mg/dL (70-99) 91 mg/dL (70-99) 176 mg/dL (70-99) Test 09/12/18 20:44 09/13/18 07:32 09/13/18 08:00 Glucose (Fingerstick) 126 mg/dL (70-99) 91 mg/dL (70-99) White Blood Count 15.9 x10^3/uL (4.0-11.0) Red Blood Count 5.44 x10^6/uL (4.30-5.70) Hemoglobin 16.2 g/dL (13.0-17.5) Hematocrit 49.2 % (39.0-53.0) Mean Corpuscular Volume 90 fL (79-100) Mean Corpuscular Hemoglobin 30 pg (25-35) Mean Corpuscular Hemoglobin Concent 33 g/dL (31-37) Red Cell Distribution Width 14.9 % (11.5-14.5) Platelet Count 181 x10^3/uL (140-400) Neutrophils (%) (Auto) 73 % (31-73) Lymphocytes (%) (Auto) 13 % (24-48) Monocytes (%) (Auto) 10 % (0-9) Eosinophils (%) (Auto) 3 % (0-3) Basophils (%) (Auto) 0 % (0-3) Neutrophils # (Auto) 11.7 x10^3uL (1.8-7.7) Lymphocytes # (Auto) 2.1 x10^3/uL (1.0-4.8) Monocytes # (Auto) 1.7 x10^3/uL (0.0-1.1) Eosinophils # (Auto) 0.4 x10^3/uL (0.0-0.7) Basophils # (Auto) 0.0 x10^3/uL (0.0-0.2) Prothrombin Time 14.9 SEC (11.7-14.0) Prothromb Time International Ratio 1.2 (0.8-1.1) Activated Partial Thromboplast Time 26 SEC (24-38) Fibrinogen 152 mg/dL (200-440) Sodium Level 143 mmol/L (136-145) Potassium Level 3.8 mmol/L (3.5-5.1) Chloride Level 109 mmol/L (98-107) Carbon Dioxide Level 26 mmol/L (21-32) Anion Gap 8 (6-14) Calcium Level 7.9 mg/dL (8.5-10.1) Magnesium Level 2.2 mg/dL (1.8-2.4) Laboratory Tests Test 09/12/18 11:32 09/12/18 16:53 09/12/18 20:44 09/13/18 07:32 Glucose (Fingerstick) 91 mg/dL (70-99) 176 mg/dL (70-99) 126 mg/dL (70-99) 91 mg/dL (70-99) Test 09/13/18 08:00 White Blood Count 15.9 x10^3/uL (4.0-11.0) Red Blood Count 5.44 x10^6/uL (4.30-5.70) Hemoglobin 16.2 g/dL (13.0-17.5) Hematocrit 49.2 % (39.0-53.0) Mean Corpuscular Volume 90 fL (79-100) Mean Corpuscular Hemoglobin 30 pg (25-35) Mean Corpuscular Hemoglobin Concent 33 g/dL (31-37) Red Cell Distribution Width 14.9 % (11.5-14.5) Platelet Count 181 x10^3/uL (140-400) Neutrophils (%) (Auto) 73 % (31-73) Lymphocytes (%) (Auto) 13 % (24-48) Monocytes (%) (Auto) 10 % (0-9) Eosinophils (%) (Auto) 3 % (0-3) Basophils (%) (Auto) 0 % (0-3) Neutrophils # (Auto) 11.7 x10^3uL (1.8-7.7) Lymphocytes # (Auto) 2.1 x10^3/uL (1.0-4.8) Monocytes # (Auto) 1.7 x10^3/uL (0.0-1.1) Eosinophils # (Auto) 0.4 x10^3/uL (0.0-0.7) Basophils # (Auto) 0.0 x10^3/uL (0.0-0.2) Prothrombin Time 14.9 SEC (11.7-14.0) Prothromb Time International Ratio 1.2 (0.8-1.1) Activated Partial Thromboplast Time 26 SEC (24-38) Fibrinogen 152 mg/dL (200-440) Sodium Level 143 mmol/L (136-145) Potassium Level 3.8 mmol/L (3.5-5.1) Chloride Level 109 mmol/L (98-107) Carbon Dioxide Level 26 mmol/L (21-32) Anion Gap 8 (6-14) Calcium Level 7.9 mg/dL (8.5-10.1) Magnesium Level 2.2 mg/dL (1.8-2.4) Microbiology 09/05/18 CSF Gram Stain - Final, Complete 09/03/18 Urine Culture - Final, Complete 09/03/18 Urine Culture Result 1 (LUIS M) - Final, Complete Medications Current Medications Gadobutrol (Gadavist) 10 mmol 1X ONCE IV Last administered on 09/03/18at 15:35 ; Start 09/03/18 at 15:15; Stop 09/03/18 at 15:16; Status DC Aspirin (Ecotrin) 81 mg DAILYWBKFT PO Last administered on 09/13/18 08:14; Start 09/03/18 at 16:30 Docusate Sodium (Colace) 100 mg PRN DAILY PRN PO HARD STOOLS; Start 09/03/18 at 15:30 Tamsulosin HCl (Flomax) 0.4 mg BID PO Last administered on 09/08/18 09:00; Start 09/03/18 at 21:00; Stop 09/08/18 at 10:46; Status DC Non-Formulary Medication (Amlodipine/ Valsartan (Exforge 10-320 Mg Tablet)) 1 tab DAILY PO ; Start 09/04/18 at 09:00; Status UNV Metoprolol Succinate (Toprol Xl) 50 mg DAILY PO Last administered on 09/13/18 08:17; Start 09/03/18 at 16:30 Polyethylene Glycol (miraLAX PACKET) 17 gm PRN DAILY PRN PO CONSTIPATION 2ND CHOICE; Start 09/04/18 at 09:00 Atorvastatin Calcium (Lipitor) 40 mg QHS PO Last administered on 09/05/18 21: 01; Start 09/03/18 at 21:00; Stop 09/06/18 at 15:52; Status DC Oxycodone/ Acetaminophen (Percocet 5/325) 1 tab PRN Q4HRS PRN PO PAIN; Start at 15:30; Stop 09/03/18 at 17:31; Status DC Amlodipine Besylate (Norvasc) 10 mg DAILY PO Last administered on 09/13/18 08: 15; Start 09/03/18 at 16:30 Losartan Potassium (Cozaar) 100 mg DAILY PO Last administered on 09/13/18 08:15 ; Start 09/03/18 at 16:30 Oxycodone/ Acetaminophen (Percocet 5/325) 1 tab PRN Q6HRS PRN PO MODERATE PAIN Last administered on 09/04/18 11:07; Start 09/03/18 at 17:30; Stop 09/04/18 at 13:35; Status DC Ciprofloxacin (Cipro) 500 mg BID PO Last administered on 09/05/18 08:27; Start 09/03/18 at 21:00; Stop 09/05/18 at 13:20; Status DC Oxycodone/ Acetaminophen (Percocet 5/325) 2 tab PRN Q6HRS PRN PO SEVERE PAIN; Start 09/03/18 at 17:45 Acetaminophen (Tylenol) 650 mg PRN Q4HRS PRN PO MILD PAIN Last administered on 09/03/18at 21:01; Start 09/03/18 at 18:45 Enoxaparin Sodium (Lovenox 120mg Syringe) 120 mg Q12HR SQ Last administered on 09/04/18at 07:55; Start 09/04/18 at 09:00; Stop 09/04/18 at 15:42; Status DC Methylprednisolone (Medrol) 8 mg BID PO Last administered on 09/04/18at 11:06; Start 09/04/18 at 10:00; Stop 09/04/18 at 13:28; Status DC Methylprednisolone (Medrol) 4 mg BIDPCLD PO ; Start 09/04/18 at 12:30; Stop at 13:28; Status DC Methylprednisolone (Medrol) 4 mg TIDPC PO ; Start 09/05/18 at 08:30; Stop at 08:30; Status DC Methylprednisolone (Medrol) 8 mg QHS PO ; Start 09/05/18 at 21:00; Stop at 21:00; Status DC Methylprednisolone (Medrol) 4 mg QIDAFTMEAL PO ; Start 09/06/18 at 09:00; Stop 09/06/18 at 09:00; Status DC Methylprednisolone (Medrol) 4 mg TID PO ; Start 09/07/18 at 09:00; Stop at 09:00; Status DC Methylprednisolone (Medrol) 4 mg BID PO ; Start 09/08/18 at 09:00; Stop at 09:00; Status DC Methylprednisolone (Medrol) 4 mg DAILY PO ; Start 09/09/18 at 09:00; Stop at 09:00; Status DC Pantoprazole Sodium (Protonix) 40 mg DAILYAC PO Last administered on 09/13/18at 05:39; Start 09/04/18 at 10:00 Bisacodyl (Dulcolax Tab) 10 mg DAILY PO Last administered on 09/09/18 08:25; Start 09/04/18 at 10:00 Bisacodyl (Dulcolax Supp) 10 mg PRN DAILY PRN ME CONSTIPATION 1ST RECTAL CHOICE Last administered on 09/04/18 19:38; Start 09/04/18 at 09:30 Docusate Sodium (Enemeez) 283 mg PRN DAILY PRN ME CONSTIPATION 2ND RECTAL CHOICE; Start 09/04/18 at 09:30 Gadobutrol (Gadavist) 10 mmol 1X ONCE IV Last administered on 09/04/18 13:26 ; Start 09/04/18 at 13:30; Stop 09/04/18 at 13:31; Status DC Methylprednisolone Sodium Succinate (SOLU-Medrol 125MG VIAL) 500 mg BID IV ; Start 09/04/18 at 21:00; Status UNV Methylprednisolone Sodium Succinate 500 mg/Sodium Chloride 100 ml @ 100 mls/hr Q12HR IV Last administered on 09/09/18 08:30; Start 09/04/18 at 21:00; Stop 09/09/18 at 11:59; Status DC Methylprednisolone Sodium Succinate 500 mg/Sodium Chloride 100 ml @ 100 mls/hr Q12HR IV ; Start 09/04/18 at 21:00; Status Cancel Oxycodone/ Acetaminophen (Percocet 5/325) 1 tab PRN Q4HRS PRN PO MODERATE PAIN Last administered on 09/13/18 06:58; Start 09/04/18 at 13:45 Hydrocortisone Acetate (Anucort-Hc) 25 mg PRN DAILY PRN ME RECTAL PAIN; Start 09/04/18 at 13:30 Enoxaparin Sodium (Lovenox 120mg Syringe) 110 mg Q12HR SQ Last administered on 09/05/18at 21:35; Start 09/04/18 at 21:00; Stop 09/06/18 at 06:49; Status DC Lactobacillus Rhamnosus (Culturelle) 1 cap BID PO Last administered on 08:14; Start 09/04/18 at 21:00 Cefepime HCl (Maxipime) 2 gm Q8HRS IVP Last administered on 09/13/18 05:40; Start 09/05/18 at 14:00 Vancomycin HCl (Vancomycin Oral Solution) 125 mg BID PO Last administered on 08:23; Start 09/05/18 at 21:00 Acyclovir Sodium 750 mg/Dextrose 265 ml @ 265 mls/hr Q8HRS IV Last administered on 09/13/18 05:39; Start 09/05/18 at 14:00 Doxycycline Hyclate (Vibra-Tab) 100 mg BID PO Last administered on 09/13/18 08: 15; Start 09/05/18 at 21:00 Info (Anti-Coagulation Monitoring By Pharmacy) 1 each PRN DAILY PRN MC SEE COMMENTS Last administered on 09/07/18 15:56; Start 09/05/18 at 14:00; Stop 09/10/18 at 15:10; Status DC Enoxaparin Sodium (Lovenox 120mg Syringe) 120 mg Q12HR SQ ; Start 09/06/18 at 06 :49; Status Cancel Enoxaparin Sodium (Lovenox 120mg Syringe) 120 mg Q12HR SQ Last administered on 09/06/18 08:39; Start 09/06/18 at 09:00; Stop 09/06/18 at 16:44; Status DC Cetirizine HCl (ZyrTEC) 10 mg DAILY PO Last administered on 09/06/18 15:12; Start 09/04/18 at 11:00; Stop 09/06/18 at 15:53; Status DC Insulin Human Lispro (HumaLOG) 0-7 UNITS TIDWMEALS SQ Last administered on 17:11; Start 09/06/18 at 17:00 Dextrose (Dextrose 50%-Water Syringe) 12.5 gm PRN Q15MIN PRN IV SEE COMMENTS; Start 09/06/18 at 12:30 Multivitamins (Thera M Plus) 1 tab DAILY PO Last administered on 09/13/18 08:14 ; Start 09/06/18 at 14:00 Calcium Carbonate/ Glycine (Oscal) 500 mg DAILY PO Last administered on 08:16; Start 09/06/18 at 14:00 Thiamine Mononitrate (Vitamin B-1) 100 mg DAILY PO Last administered on 08:15; Start 09/06/18 at 14:00 Cetirizine HCl (ZyrTEC) 10 mg DAILY PO Last administered on 4/5/19at 08:14; Start 09/06/18 at 15:00 Rivaroxaban (Xarelto) 15 mg BIDWMEALS PO Last administered on 09/06/18at 17:23; Start 09/06/18 at 17:00; Stop 09/07/18 at 08:22; Status DC Enoxaparin Sodium (Lovenox Per Pharmacy Treatment Dosing) 1 each PRN DAILY PRN MC SEE COMMENTS; Start 09/07/18 at 11:15; Stop 09/08/18 at 12:11; Status DC Enoxaparin Sodium (Lovenox 120mg Syringe) 120 mg Q12HR SQ Last administered on 09/08/18at 09:24; Start 09/07/18 at 11:15; Stop 09/08/18 at 12:10; Status DC Gabapentin (Neurontin) 100 mg TID PO Last administered on 09/08/18at 14:13; Start 09/07/18 at 21:00; Stop 09/08/18 at 16:27; Status DC Gabapentin (Neurontin) 300 mg TID PO Last administered on 09/13/18at 08:14; Start 09/08/18 at 21:00 Lidocaine/Sodium Bicarbonate (Buffered Lidocaine 1%) 3 ml STK-MED ONCE .ROUTE ; Start 09/09/18 at 08:52; Stop 09/09/18 at 08:53; Status DC Lidocaine/Sodium Bicarbonate (Buffered Lidocaine 1%) 3 ml 1X ONCE INJ Last administered on 09/09/18at 09:43; Start 09/09/18 at 09:30; Stop 09/09/18 at 09:31; Status DC Enoxaparin Sodium (Lovenox Per Pharmacy Prophylaxis Dosing) 1 each DAILY PRN MC SEE COMMENTS; Start 09/09/18 at 11:15 Enoxaparin Sodium (Lovenox 40mg Syringe) 40 mg DAILY SQ Last administered on 09/13/18at 08:17; Start 09/09/18 at 12:00 Prednisone (Prednisone) 70 mg DAILY PO Last administered on 09/13/18at 08:16; Start 09/09/18 at 12:00; Stop 09/15/18 at 09:01 Prednisone (Prednisone) 50 mg 1X ONCE PO ; Start 09/16/18 at 09:00; Stop at 09:01 Prednisone (Prednisone) 40 mg 1X ONCE PO ; Start 09/17/18 at 09:00; Stop at 09:01 Prednisone (Prednisone) 30 mg 1X ONCE PO ; Start 09/18/18 at 09:00; Stop at 09:01 Prednisone (Prednisone) 20 mg DAILY PO ; Start 09/19/18 at 09:00; Stop 09/21/18 at 09:01 Prednisone (Prednisone) 10 mg 1X ONCE PO ; Start 09/22/18 at 09:00; Stop at 09:01 Prednisone (Prednisone) 10 mg 1X ONCE PO ; Start 09/24/18 at 09:00; Stop at 09:01 Potassium Chloride (Klor-Con) 40 meq 1X STAT PO Last administered on 09/09/18at 13:54; Start 09/09/18 at 13:39; Stop 09/09/18 at 13:43; Status DC Albumin Human 3,000 ml @ 0 mls/hr 1X ONCE IV Last administered on 09/09/18at 15 :10; Start 09/09/18 at 14:00; Stop 09/09/18 at 14:01; Status DC Heparin Sodium (Porcine) (Heparin Sodium) 5,000 unit 1X ONCE IV Last administered on 09/09/18at 14:00; Start 09/09/18 at 14:00; Stop 09/09/18 at 14:01; Status DC Albumin Human 3,000 ml @ 0 mls/hr 1X ONCE IV Last administered on 09/10/18at 13 :03; Start 09/10/18 at 09:00; Stop 09/10/18 at 09:01; Status DC Calcium Gluconate 2000 mg/Dextrose 120 ml @ 220 mls/hr 1X ONCE IV Last administered on 09/10/18at 13:04; Start 09/10/18 at 08:45; Stop 09/10/18 at 09:17; Status DC Sodium Chloride 1,000 ml @ 500 mls/hr Q2H IV ; Start 09/11/18 at 12:45; Stop 09/11/18 at 15:44; Status DC Albumin Human 500 ml @ 500 mls/hr Q1HR IV Last administered on 09/11/18at 14:03 ; Start 09/11/18 at 13:00; Stop 09/11/18 at 17:59; Status DC Calcium Gluconate 2000 mg/Sodium Chloride 120 ml @ 220 mls/hr 1X ONCE IV Last administered on 09/11/18at 14:05; Start 09/11/18 at 13:00; Stop 09/11/18 at 13: 32; Status DC Heparin Sodium (Porcine) (Heparin Sodium) 5,000 unit 1X ONCE IV Last administered on 09/11/18at 14:02; Start 09/11/18 at 13:30; Stop 09/11/18 at 13:31; Status DC Heparin Sodium (Porcine) (Heparin Sodium) 10,000 unit STK-MED ONCE .ROUTE ; Start 09/11/18 at 13:27; Stop 09/11/18 at 13:28; Status DC Albumin Human 2,500 ml @ 500 mls/hr 1X ONCE IV Last administered on 09/12/18at 08:28; Start 09/12/18 at 08:30; Stop 09/12/18 at 13:29; Status DC Calcium Gluconate 2000 mg/Sodium Chloride 120 ml @ 120 mls/hr 1X ONCE IV Last administered on 09/12/18at 08:29; Start 09/12/18 at 08:30; Stop 09/12/18 at 09: 29; Status DC Heparin Sodium (Porcine) (Heparin Sodium) 5,000 unit 1X ONCE IV Last administered on 09/12/18at 08:27; Start 09/12/18 at 08:30; Stop 09/12/18 at 08:31; Status DC Heparin Sodium (Porcine) (Heparin Sodium) 10,000 unit STK-MED ONCE .ROUTE ; Start 09/12/18 at 08:24; Stop 09/12/18 at 08:25; Status DC Active Scripts Active Cipro (Ciprofloxacin Hcl) 500 Mg Tablet 1 Tab PO BID Aspirin Ec (Aspirin) 81 Mg Tablet.dr 81 Mg PO DAILYWBKFT 30 Days Colace (Docusate Sodium) 100 Mg Capsule 100 Mg PO PRN DAILY PRN 30 Days Polyethylene Glycol 3350 17 Gm Powd.pack 17 Gm PO PRN DAILY PRN 14 Days Flomax (Tamsulosin Hcl) 0.4 Mg Cap.er.24h 0.4 Mg PO BID 30 Days Reported Percocet 5-325 Mg Tablet (Oxycodone/Acetaminophen) 1 Each Tablet 1-2 Tab PO Q4-6HRS Exforge 10-320 Mg Tablet (Amlodipine/Valsartan) 1 Each Tablet 1 Tab PO DAILY Crestor (Rosuvastatin Calcium) 10 Mg Tablet 1 Tab PO DAILY Toprol Xl (Metoprolol Succinate) 50 Mg Tab.er.24h 1 Tab PO DAILY Vitals/I & O Vital Sign - Last 24 Hours 09/12/18 09/12/18 09/12/18 09/12/18 11:00 15:00 15:15 15:16 Temp 98.1 98.1 98.1 98.1 Pulse 71 87 87 87 Resp 16 18 B/P (MAP) 156/97 (116) 159/97 (117) 159/97 159/97 Pulse Ox 96 96 O2 Delivery Room Air Room Air 09/12/18 09/12/18 09/12/18 09/12/18 15:16 19:00 20:00 23:00 Temp 97.5 97.4 97.5 97.4 Pulse 87 66 67 Resp 18 18 B/P (MAP) 159/97 151/81 (104) 163/77 (105) Pulse Ox 93 94 O2 Delivery Room Air Room Air Room Air 09/13/18 09/13/18 09/13/18 09/13/18 02:47 03:00 03:47 06:58 Temp 97.5 97.5 Pulse 73 Resp 18 B/P (MAP) 144/91 (108) Pulse Ox 94 97 97 97 O2 Delivery Room Air Room Air Room Air 09/13/18 09/13/18 09/13/18 09/13/18 07:00 07:20 08:01 08:15 Temp 97.7 97.7 Pulse 84 84 Resp 18 B/P (MAP) 132/83 (99) 132/83 Pulse Ox 98 O2 Delivery Room Air Room Air Room Air 09/13/18 09/13/18 08:15 08:17 Pulse 84 84 B/P (MAP) 132/83 132/83 Intake and Output 09/12/18 09/12/18 09/13/18 15:00 23:00 07:00 Intake Total 120 ml Output Total 650 ml Balance 120 ml -650 ml LAMONT BASHIR MD Sep 13, 2018 09:24
--- NOTE | 2018-09-13 10:04 | NUR ---
This nurse took over care of this patient, from Wen QUISPE. Will continue to monitor closely.
[2018-09-13] MEDS ORDERED: POTASSIUM CHLORIDE 20 MEQ TABLET.ER. PO STA (10:08)
[2018-09-13 11:00] VITALS: BP 158/93
--- NOTE | 2018-09-13 11:20 | PDOC ---
Infectious Disease Note Subjective Subjective Comfortable Doing well and awaiting plasmaphoresis Moving RLE a little more More bowel control Denies F/C/S/N/V/D Vital Sign Vital Signs Vital Signs Date Time Temp Pulse Resp B/P (MAP) Pulse Ox O2 Delivery O2 Flow Rate FiO2 09/13/18 08:17 84 132/83 09/13/18 08:01 Room Air 09/13/18 07:00 97.7 18 98 97.7 Physical Exam PHYSICAL EXAM GENERAL: Propped up in bed, alert, smiling HEENT: Oropharynx clear NECK: Supple. LUNGS: Clear bilaterally. No wheezing. HEART: S1, S2. ABDOMEN: Obese, soft, NT EXTREMITIES: Bilateral trace pedal edema. NEUROLOGIC: Alert and oriented x 3. Lower extremity weakness bilaterally can move LLE better and ? more with right SPINE: Back incision well healed, nontender. No surrounding redness or erythema. SKIN: Warm, dry. No generalized rash. PIV, right forearm, new. R subclavian clean trace bleed - Labs Lab Laboratory Tests Test 09/12/18 11:32 09/12/18 16:53 09/12/18 20:44 09/13/18 07:32 Glucose (Fingerstick) 91 mg/dL (70-99) 176 mg/dL (70-99) 126 mg/dL (70-99) 91 mg/dL (70-99) Test 09/13/18 08:00 White Blood Count 15.9 x10^3/uL (4.0-11.0) Red Blood Count 5.44 x10^6/uL (4.30-5.70) Hemoglobin 16.2 g/dL (13.0-17.5) Hematocrit 49.2 % (39.0-53.0) Mean Corpuscular Volume 90 fL (79-100) Mean Corpuscular Hemoglobin 30 pg (25-35) Mean Corpuscular Hemoglobin Concent 33 g/dL (31-37) Red Cell Distribution Width 14.9 % (11.5-14.5) Platelet Count 181 x10^3/uL (140-400) Neutrophils (%) (Auto) 73 % (31-73) Lymphocytes (%) (Auto) 13 % (24-48) Monocytes (%) (Auto) 10 % (0-9) Eosinophils (%) (Auto) 3 % (0-3) Basophils (%) (Auto) 0 % (0-3) Neutrophils # (Auto) 11.7 x10^3uL (1.8-7.7) Lymphocytes # (Auto) 2.1 x10^3/uL (1.0-4.8) Monocytes # (Auto) 1.7 x10^3/uL (0.0-1.1) Eosinophils # (Auto) 0.4 x10^3/uL (0.0-0.7) Basophils # (Auto) 0.0 x10^3/uL (0.0-0.2) Prothrombin Time 14.9 SEC (11.7-14.0) Prothromb Time International Ratio 1.2 (0.8-1.1) Activated Partial Thromboplast Time 26 SEC (24-38) Fibrinogen 152 mg/dL (200-440) Sodium Level 143 mmol/L (136-145) Potassium Level 3.8 mmol/L (3.5-5.1) Chloride Level 109 mmol/L (98-107) Carbon Dioxide Level 26 mmol/L (21-32) Anion Gap 8 (6-14) Calcium Level 7.9 mg/dL (8.5-10.1) Magnesium Level 2.2 mg/dL (1.8-2.4) Micro Microbiology 09/05/18 CSF Gram Stain - Final, Complete 09/03/18 Urine Culture - Final, Complete 09/03/18 Urine Culture Result 1 (LUIS M) - Final, Complete Objective Assessment Transverse myelitis, MRI 09/03/2018. CSF WBC 13, other studies noted , likely noninfectious -s/p LP. Opening pressure 20cm. CSF WBC 13, glucose 76, TP 86.4. No organisms seen. cx pending -HSV/EBV and HIV negative; CMV IgM <0.30. Treponema neg. [place] IgG + CSF old - HAD BEEN ON STEROIDS leukocytosis from steroids TB spot invalid Cauda equina syndrome, status post surgery 06/2018. Urinary retention, neurogenic bladder, requiring straight catheterization for 2 months. UC no growth Recurrent urinary tract infection, 07/2018 pansensitive Escherichia coli, treated with ciprofloxacin. History of Clostridium difficile, 07/2018, treated, no recurrence. Status post laminectomy, 06/30/2018, L3-L5. Bilateral lower extremity weakness. Hyperlipidemia. Hypertension. Hyperglycemia. Non-occlusive thrombus, right posterior tibial and peroneal vein H/O seasonal allergies. Plan Plan of Care D/c Acyclovir since 09/05 Cefepime and doxycycline since 09/05 p.o. vancomycin prophylaxis, b.i.d. dosing.for 7 more days Steroids f/u cultures/serologies Continuing plasmapheresis today Repeat TB spot in 3 mos D/w Please call with questions MILIND GUZMAN MD Sep 13, 2018 11:20
[2018-09-13] MEDS ORDERED: ALBUMIN HUMAN 5% 2,500 ML IV ONE (11:45)
[2018-09-13] MEDS ORDERED: HEPARIN for IV BOLUS 10,000 UNIT/10 ML VIAL. IV ONE (11:45)
[2018-09-13] MEDS ORDERED: CALCIUM GLUCONATE 2,000 MG in IV DEXTROSE 5% 100ML 100 ML IV ONE (12:00)
--- NOTE | 2018-09-13 12:15 | PDOC ---
PROGRESS NOTES Subjective Subjective eating lunch notes improvement in LE strength and sensation and improved sensation in lower abdomen and groin sat on side of bed for 3 hours this morning notes progress with PT Objective Objective Vital Signs Date Time Temp Pulse Resp B/P (MAP) Pulse Ox O2 Delivery O2 Flow Rate FiO2 09/13/18 11:00 97.3 74 18 158/93 (114) 98 Room Air 97.3 Intake and Output 09/13/18 06:59 Intake Total 120 ml Output Total 650 ml Balance -530 ml Intake Oral 120 ml Output Urine Total 650 ml # Voids 2 Physical Exam General: Alert, Oriented X3, Cooperative, No acute distress Neuro: Normal speech, Other (slight improvement in LE sensation and strength) Plan Plan of Care ok to dc to rehab per NS standpoint will follow Comment Review of Relevant I have reviewed the following items franc (where applicable) has been applied. Labs Laboratory Tests Test 09/11/18 16:46 09/11/18 20:59 09/12/18 05:00 09/12/18 07:53 Glucose (Fingerstick) 118 mg/dL (70-99) 128 mg/dL (70-99) 80 mg/dL (70-99) White Blood Count 12.6 x10^3/uL (4.0-11.0) Red Blood Count 5.00 x10^6/uL (4.30-5.70) Hemoglobin 14.8 g/dL (13.0-17.5) Hematocrit 45.1 % (39.0-53.0) Mean Corpuscular Volume 90 fL (79-100) Mean Corpuscular Hemoglobin 30 pg (25-35) Mean Corpuscular Hemoglobin Concent 33 g/dL (31-37) Red Cell Distribution Width 14.5 % (11.5-14.5) Platelet Count 155 x10^3/uL (140-400) Neutrophils (%) (Auto) 75 % (31-73) Lymphocytes (%) (Auto) 11 % (24-48) Monocytes (%) (Auto) 12 % (0-9) Eosinophils (%) (Auto) 1 % (0-3) Basophils (%) (Auto) 0 % (0-3) Neutrophils # (Auto) 9.5 x10^3uL (1.8-7.7) Lymphocytes # (Auto) 1.4 x10^3/uL (1.0-4.8) Monocytes # (Auto) 1.5 x10^3/uL (0.0-1.1) Eosinophils # (Auto) 0.1 x10^3/uL (0.0-0.7) Basophils # (Auto) 0.0 x10^3/uL (0.0-0.2) Prothrombin Time 17.8 SEC (11.7-14.0) Prothromb Time International Ratio 1.5 (0.8-1.1) Activated Partial Thromboplast Time 31 SEC (24-38) Fibrinogen 95 mg/dL (200-440) Sodium Level 144 mmol/L (136-145) Potassium Level 4.0 mmol/L (3.5-5.1) Chloride Level 112 mmol/L (98-107) Carbon Dioxide Level 22 mmol/L (21-32) Anion Gap 10 (6-14) Calcium Level 7.5 mg/dL (8.5-10.1) Magnesium Level 2.4 mg/dL (1.8-2.4) Albumin 2.8 g/dL (3.4-5.0) Test 09/12/18 11:32 09/12/18 16:53 09/12/18 20:44 09/13/18 07:32 Glucose (Fingerstick) 91 mg/dL (70-99) 176 mg/dL (70-99) 126 mg/dL (70-99) 91 mg/dL (70-99) Test 09/13/18 08:00 09/13/18 11:24 White Blood Count 15.9 x10^3/uL (4.0-11.0) Red Blood Count 5.44 x10^6/uL (4.30-5.70) Hemoglobin 16.2 g/dL (13.0-17.5) Hematocrit 49.2 % (39.0-53.0) Mean Corpuscular Volume 90 fL (79-100) Mean Corpuscular Hemoglobin 30 pg (25-35) Mean Corpuscular Hemoglobin Concent 33 g/dL (31-37) Red Cell Distribution Width 14.9 % (11.5-14.5) Platelet Count 181 x10^3/uL (140-400) Neutrophils (%) (Auto) 73 % (31-73) Lymphocytes (%) (Auto) 13 % (24-48) Monocytes (%) (Auto) 10 % (0-9) Eosinophils (%) (Auto) 3 % (0-3) Basophils (%) (Auto) 0 % (0-3) Neutrophils # (Auto) 11.7 x10^3uL (1.8-7.7) Lymphocytes # (Auto) 2.1 x10^3/uL (1.0-4.8) Monocytes # (Auto) 1.7 x10^3/uL (0.0-1.1) Eosinophils # (Auto) 0.4 x10^3/uL (0.0-0.7) Basophils # (Auto) 0.0 x10^3/uL (0.0-0.2) Prothrombin Time 14.9 SEC (11.7-14.0) Prothromb Time International Ratio 1.2 (0.8-1.1) Activated Partial Thromboplast Time 26 SEC (24-38) Fibrinogen 152 mg/dL (200-440) Sodium Level 143 mmol/L (136-145) Potassium Level 3.8 mmol/L (3.5-5.1) Chloride Level 109 mmol/L (98-107) Carbon Dioxide Level 26 mmol/L (21-32) Anion Gap 8 (6-14) Calcium Level 7.9 mg/dL (8.5-10.1) Magnesium Level 2.2 mg/dL (1.8-2.4) Glucose (Fingerstick) 94 mg/dL (70-99) Laboratory Tests Test 09/12/18 16:53 09/12/18 20:44 09/13/18 07:32 09/13/18 08:00 Glucose (Fingerstick) 176 mg/dL (70-99) 126 mg/dL (70-99) 91 mg/dL (70-99) White Blood Count 15.9 x10^3/uL (4.0-11.0) Red Blood Count 5.44 x10^6/uL (4.30-5.70) Hemoglobin 16.2 g/dL (13.0-17.5) Hematocrit 49.2 % (39.0-53.0) Mean Corpuscular Volume 90 fL (79-100) Mean Corpuscular Hemoglobin 30 pg (25-35) Mean Corpuscular Hemoglobin Concent 33 g/dL (31-37) Red Cell Distribution Width 14.9 % (11.5-14.5) Platelet Count 181 x10^3/uL (140-400) Neutrophils (%) (Auto) 73 % (31-73) Lymphocytes (%) (Auto) 13 % (24-48) Monocytes (%) (Auto) 10 % (0-9) Eosinophils (%) (Auto) 3 % (0-3) Basophils (%) (Auto) 0 % (0-3) Neutrophils # (Auto) 11.7 x10^3uL (1.8-7.7) Lymphocytes # (Auto) 2.1 x10^3/uL (1.0-4.8) Monocytes # (Auto) 1.7 x10^3/uL (0.0-1.1) Eosinophils # (Auto) 0.4 x10^3/uL (0.0-0.7) Basophils # (Auto) 0.0 x10^3/uL (0.0-0.2) Prothrombin Time 14.9 SEC (11.7-14.0) Prothromb Time International Ratio 1.2 (0.8-1.1) Activated Partial Thromboplast Time 26 SEC (24-38) Fibrinogen 152 mg/dL (200-440) Sodium Level 143 mmol/L (136-145) Potassium Level 3.8 mmol/L (3.5-5.1) Chloride Level 109 mmol/L (98-107) Carbon Dioxide Level 26 mmol/L (21-32) Anion Gap 8 (6-14) Calcium Level 7.9 mg/dL (8.5-10.1) Magnesium Level 2.2 mg/dL (1.8-2.4) Test 09/13/18 11:24 Glucose (Fingerstick) 94 mg/dL (70-99) Microbiology 09/05/18 CSF Gram Stain - Final, Complete 09/03/18 Urine Culture - Final, Complete 09/03/18 Urine Culture Result 1 (LUIS M) - Final, Complete Medications Current Medications Gadobutrol (Gadavist) 10 mmol 1X ONCE IV Last administered on 09/03/18at 15:35 ; Start 09/03/18 at 15:15; Stop 09/03/18 at 15:16; Status DC Aspirin (Ecotrin) 81 mg DAILYWBKFT PO Last administered on 09/13/18 08:14; Start 09/03/18 at 16:30 Docusate Sodium (Colace) 100 mg PRN DAILY PRN PO HARD STOOLS; Start 09/03/18 at 15:30 Tamsulosin HCl (Flomax) 0.4 mg BID PO Last administered on 09/08/18 09:00; Start 09/03/18 at 21:00; Stop 09/08/18 at 10:46; Status DC Non-Formulary Medication (Amlodipine/ Valsartan (Exforge 10-320 Mg Tablet)) 1 tab DAILY PO ; Start 09/04/18 at 09:00; Status UNV Metoprolol Succinate (Toprol Xl) 50 mg DAILY PO Last administered on 09/13/18 08:17; Start 09/03/18 at 16:30 Polyethylene Glycol (miraLAX PACKET) 17 gm PRN DAILY PRN PO CONSTIPATION 2ND CHOICE; Start 09/04/18 at 09:00 Atorvastatin Calcium (Lipitor) 40 mg QHS PO Last administered on 09/05/18at 21: 01; Start 09/03/18 at 21:00; Stop 09/06/18 at 15:52; Status DC Oxycodone/ Acetaminophen (Percocet 5/325) 1 tab PRN Q4HRS PRN PO PAIN; Start at 15:30; Stop 09/03/18 at 17:31; Status DC Amlodipine Besylate (Norvasc) 10 mg DAILY PO Last administered on 09/13/18 08: 15; Start 09/03/18 at 16:30 Losartan Potassium (Cozaar) 100 mg DAILY PO Last administered on 09/13/18 08:15 ; Start 09/03/18 at 16:30 Oxycodone/ Acetaminophen (Percocet 5/325) 1 tab PRN Q6HRS PRN PO MODERATE PAIN Last administered on 09/04/18at 11:07; Start 09/03/18 at 17:30; Stop 09/04/18 at 13:35; Status DC Ciprofloxacin (Cipro) 500 mg BID PO Last administered on 09/05/18 08:27; Start 09/03/18 at 21:00; Stop 09/05/18 at 13:20; Status DC Oxycodone/ Acetaminophen (Percocet 5/325) 2 tab PRN Q6HRS PRN PO SEVERE PAIN; Start 09/03/18 at 17:45 Acetaminophen (Tylenol) 650 mg PRN Q4HRS PRN PO MILD PAIN Last administered on 09/03/18at 21:01; Start 09/03/18 at 18:45 Enoxaparin Sodium (Lovenox 120mg Syringe) 120 mg Q12HR SQ Last administered on 09/04/18at 07:55; Start 09/04/18 at 09:00; Stop 09/04/18 at 15:42; Status DC Methylprednisolone (Medrol) 8 mg BID PO Last administered on 09/04/18at 11:06; Start 09/04/18 at 10:00; Stop 09/04/18 at 13:28; Status DC Methylprednisolone (Medrol) 4 mg BIDPCLD PO ; Start 09/04/18 at 12:30; Stop at 13:28; Status DC Methylprednisolone (Medrol) 4 mg TIDPC PO ; Start 09/05/18 at 08:30; Stop at 08:30; Status DC Methylprednisolone (Medrol) 8 mg QHS PO ; Start 09/05/18 at 21:00; Stop at 21:00; Status DC Methylprednisolone (Medrol) 4 mg QIDAFTMEAL PO ; Start 09/06/18 at 09:00; Stop 09/06/18 at 09:00; Status DC Methylprednisolone (Medrol) 4 mg TID PO ; Start 09/07/18 at 09:00; Stop at 09:00; Status DC Methylprednisolone (Medrol) 4 mg BID PO ; Start 09/08/18 at 09:00; Stop at 09:00; Status DC Methylprednisolone (Medrol) 4 mg DAILY PO ; Start 09/09/18 at 09:00; Stop at 09:00; Status DC Pantoprazole Sodium (Protonix) 40 mg DAILYAC PO Last administered on 09/13/18at 05:39; Start 09/04/18 at 10:00 Bisacodyl (Dulcolax Tab) 10 mg DAILY PO Last administered on 09/09/18at 08:25; Start 09/04/18 at 10:00 Bisacodyl (Dulcolax Supp) 10 mg PRN DAILY PRN [place] CONSTIPATION 1ST RECTAL CHOICE Last administered on 09/04/18at 19:38; Start 09/04/18 at 09:30 Docusate Sodium (Enemeez) 283 mg PRN DAILY PRN [place] CONSTIPATION 2ND RECTAL CHOICE; Start 09/04/18 at 09:30 Gadobutrol (Gadavist) 10 mmol 1X ONCE IV Last administered on 09/04/18 13:26 ; Start 09/04/18 at 13:30; Stop 09/04/18 at 13:31; Status DC Methylprednisolone Sodium Succinate (SOLU-Medrol 125MG VIAL) 500 mg BID IV ; Start 09/04/18 at 21:00; Status UNV Methylprednisolone Sodium Succinate 500 mg/Sodium Chloride 100 ml @ 100 mls/hr Q12HR IV Last administered on 09/09/18 08:30; Start 09/04/18 at 21:00; Stop 09/09/18 at 11:59; Status DC Methylprednisolone Sodium Succinate 500 mg/Sodium Chloride 100 ml @ 100 mls/hr Q12HR IV ; Start 09/04/18 at 21:00; Status Cancel Oxycodone/ Acetaminophen (Percocet 5/325) 1 tab PRN Q4HRS PRN PO MODERATE PAIN Last administered on 09/13/18 06:58; Start 09/04/18 at 13:45 Hydrocortisone Acetate (Anucort-Hc) 25 mg PRN DAILY PRN [place] RECTAL PAIN; Start 09/04/18 at 13:30 Enoxaparin Sodium (Lovenox 120mg Syringe) 110 mg Q12HR SQ Last administered on 09/05/18at 21:35; Start 09/04/18 at 21:00; Stop 09/06/18 at 06:49; Status DC Lactobacillus Rhamnosus (Culturelle) 1 cap BID PO Last administered on 08:14; Start 09/04/18 at 21:00 Cefepime HCl (Maxipime) 2 gm Q8HRS IVP Last administered on 09/13/18 05:40; Start 09/05/18 at 14:00; Stop 09/13/18 at 11:20; Status DC Vancomycin HCl (Vancomycin Oral Solution) 125 mg BID PO Last administered on 08:23; Start 09/05/18 at 21:00 Acyclovir Sodium 750 mg/Dextrose 265 ml @ 265 mls/hr Q8HRS IV Last administered on 09/13/18 05:39; Start 09/05/18 at 14:00; Stop 09/13/18 at 11:20; Status DC Doxycycline Hyclate (Vibra-Tab) 100 mg BID PO Last administered on 09/13/18 08: 15; Start 09/05/18 at 21:00; Stop 09/13/18 at 11:20; Status DC Info (Anti-Coagulation Monitoring By Pharmacy) 1 each PRN DAILY PRN MC SEE COMMENTS Last administered on 09/07/18 15:56; Start 09/05/18 at 14:00; Stop 09/10/18 at 15:10; Status DC Enoxaparin Sodium (Lovenox 120mg Syringe) 120 mg Q12HR SQ ; Start 09/06/18 at 06 :49; Status Cancel Enoxaparin Sodium (Lovenox 120mg Syringe) 120 mg Q12HR SQ Last administered on 09/06/18 08:39; Start 09/06/18 at 09:00; Stop 09/06/18 at 16:44; Status DC Cetirizine HCl (ZyrTEC) 10 mg DAILY PO Last administered on 09/06/18 15:12; Start 09/04/18 at 11:00; Stop 09/06/18 at 15:53; Status DC Insulin Human Lispro (HumaLOG) 0-7 UNITS TIDWMEALS SQ Last administered on 17:11; Start 09/06/18 at 17:00 Dextrose (Dextrose 50%-Water Syringe) 12.5 gm PRN Q15MIN PRN IV SEE COMMENTS; Start 09/06/18 at 12:30 Multivitamins (Thera M Plus) 1 tab DAILY PO Last administered on 09/13/18 08:14 ; Start 09/06/18 at 14:00 Calcium Carbonate/ Glycine (Oscal) 500 mg DAILY PO Last administered on 08:16; Start 09/06/18 at 14:00 Thiamine Mononitrate (Vitamin B-1) 100 mg DAILY PO Last administered on 08:15; Start 09/06/18 at 14:00 Cetirizine HCl (ZyrTEC) 10 mg DAILY PO Last administered on 09/13/18 08:14; Start 09/06/18 at 15:00 Rivaroxaban (Xarelto) 15 mg BIDWMEALS PO Last administered on 09/06/18at 17:23; Start 09/06/18 at 17:00; Stop 09/07/18 at 08:22; Status DC Enoxaparin Sodium (Lovenox Per Pharmacy Treatment Dosing) 1 each PRN DAILY PRN MC SEE COMMENTS; Start 09/07/18 at 11:15; Stop 09/08/18 at 12:11; Status DC Enoxaparin Sodium (Lovenox 120mg Syringe) 120 mg Q12HR SQ Last administered on 09/08/18at 09:24; Start 09/07/18 at 11:15; Stop 09/08/18 at 12:10; Status DC Gabapentin (Neurontin) 100 mg TID PO Last administered on 09/08/18at 14:13; Start 09/07/18 at 21:00; Stop 09/08/18 at 16:27; Status DC Gabapentin (Neurontin) 300 mg TID PO Last administered on 09/13/18 08:14; Start 09/08/18 at 21:00 Lidocaine/Sodium Bicarbonate (Buffered Lidocaine 1%) 3 ml STK-MED ONCE .ROUTE ; Start 09/09/18 at 08:52; Stop 09/09/18 at 08:53; Status DC Lidocaine/Sodium Bicarbonate (Buffered Lidocaine 1%) 3 ml 1X ONCE INJ Last administered on 09/09/18at 09:43; Start 09/09/18 at 09:30; Stop 09/09/18 at 09:31; Status DC Enoxaparin Sodium (Lovenox Per Pharmacy Prophylaxis Dosing) 1 each DAILY PRN MC SEE COMMENTS; Start 09/09/18 at 11:15 Enoxaparin Sodium (Lovenox 40mg Syringe) 40 mg DAILY SQ Last administered on 08:17; Start 09/09/18 at 12:00 Prednisone (Prednisone) 70 mg DAILY PO Last administered on 09/13/18 08:16; Start 09/09/18 at 12:00; Stop 09/15/18 at 09:01 Prednisone (Prednisone) 50 mg 1X ONCE PO ; Start 09/16/18 at 09:00; Stop at 09:01 Prednisone (Prednisone) 40 mg 1X ONCE PO ; Start 09/17/18 at 09:00; Stop at 09:01 Prednisone (Prednisone) 30 mg 1X ONCE PO ; Start 09/18/18 at 09:00; Stop at 09:01 Prednisone (Prednisone) 20 mg DAILY PO ; Start 09/19/18 at 09:00; Stop 09/21/18 at 09:01 Prednisone (Prednisone) 10 mg 1X ONCE PO ; Start 09/22/18 at 09:00; Stop at 09:01 Prednisone (Prednisone) 10 mg 1X ONCE PO ; Start 09/24/18 at 09:00; Stop at 09:01 Potassium Chloride (Klor-Con) 40 meq 1X STAT PO Last administered on 09/09/18at 13:54; Start 09/09/18 at 13:39; Stop 09/09/18 at 13:43; Status DC Albumin Human 3,000 ml @ 0 mls/hr 1X ONCE IV Last administered on 09/09/18at 15 :10; Start 09/09/18 at 14:00; Stop 09/09/18 at 14:01; Status DC Heparin Sodium (Porcine) (Heparin Sodium) 5,000 unit 1X ONCE IV Last administered on 09/09/18at 14:00; Start 09/09/18 at 14:00; Stop 09/09/18 at 14:01; Status DC Albumin Human 3,000 ml @ 0 mls/hr 1X ONCE IV Last administered on 09/10/18at 13 :03; Start 09/10/18 at 09:00; Stop 09/10/18 at 09:01; Status DC Calcium Gluconate 2000 mg/Dextrose 120 ml @ 220 mls/hr 1X ONCE IV Last administered on 09/10/18at 13:04; Start 09/10/18 at 08:45; Stop 09/10/18 at 09:17; Status DC Sodium Chloride 1,000 ml @ 500 mls/hr Q2H IV ; Start 09/11/18 at 12:45; Stop 09/11/18 at 15:44; Status DC Albumin Human 500 ml @ 500 mls/hr Q1HR IV Last administered on 09/11/18at 14:03 ; Start 09/11/18 at 13:00; Stop 09/11/18 at 17:59; Status DC Calcium Gluconate 2000 mg/Sodium Chloride 120 ml @ 220 mls/hr 1X ONCE IV Last administered on 09/11/18at 14:05; Start 09/11/18 at 13:00; Stop 09/11/18 at 13: 32; Status DC Heparin Sodium (Porcine) (Heparin Sodium) 5,000 unit 1X ONCE IV Last administered on 09/11/18at 14:02; Start 09/11/18 at 13:30; Stop 09/11/18 at 13:31; Status DC Heparin Sodium (Porcine) (Heparin Sodium) 10,000 unit STK-MED ONCE .ROUTE ; Start 09/11/18 at 13:27; Stop 09/11/18 at 13:28; Status DC Albumin Human 2,500 ml @ 500 mls/hr 1X ONCE IV Last administered on 09/12/18at 08:28; Start 09/12/18 at 08:30; Stop 09/12/18 at 13:29; Status DC Calcium Gluconate 2000 mg/Sodium Chloride 120 ml @ 120 mls/hr 1X ONCE IV Last administered on 09/12/18at 08:29; Start 09/12/18 at 08:30; Stop 09/12/18 at 09: 29; Status DC Heparin Sodium (Porcine) (Heparin Sodium) 5,000 unit 1X ONCE IV Last administered on 09/12/18 08:27; Start 09/12/18 at 08:30; Stop 09/12/18 at 08:31; Status DC Heparin Sodium (Porcine) (Heparin Sodium) 10,000 unit STK-MED ONCE .ROUTE ; Start 09/12/18 at 08:24; Stop 09/12/18 at 08:25; Status DC Potassium Chloride (Klor-Con) 40 meq 1X STAT PO Last administered on 09/13/18at 10:08; Start 09/13/18 at 10:08; Stop 09/13/18 at 10:13; Status DC Heparin Sodium (Porcine) (Heparin Sodium) 5,000 unit 1X ONCE IV ; Start at 11:45; Stop 09/13/18 at 11:46; Status DC Calcium Gluconate 2000 mg/Dextrose 120 ml @ 120 mls/hr 1X ONCE IV ; Start 09/13 at 12:00; Stop 09/13/18 at 12:59 Albumin Human 2,500 ml @ 0 mls/hr 1X ONCE IV ; Start 09/13/18 at 11:45; Stop at 11:46; Status DC Active Scripts Active Cipro (Ciprofloxacin Hcl) 500 Mg Tablet 1 Tab PO BID Aspirin Ec (Aspirin) 81 Mg Tablet.dr 81 Mg PO DAILYWBKFT 30 Days Colace (Docusate Sodium) 100 Mg Capsule 100 Mg PO PRN DAILY PRN 30 Days Polyethylene Glycol 3350 17 Gm Powd.pack 17 Gm PO PRN DAILY PRN 14 Days Flomax (Tamsulosin Hcl) 0.4 Mg Cap.er.24h 0.4 Mg PO BID 30 Days Reported Percocet 5-325 Mg Tablet (Oxycodone/Acetaminophen) 1 Each Tablet 1-2 Tab PO Q4-6HRS Exforge 10-320 Mg Tablet (Amlodipine/Valsartan) 1 Each Tablet 1 Tab PO DAILY Crestor (Rosuvastatin Calcium) 10 Mg Tablet 1 Tab PO DAILY Toprol Xl (Metoprolol Succinate) 50 Mg Tab.er.24h 1 Tab PO DAILY Vitals/I & O Vital Sign - Last 24 Hours 09/12/18 09/12/18 09/12/18 09/12/18 15:00 15:15 15:16 15:16 Temp 98.1 98.1 Pulse 87 87 87 87 Resp 18 B/P (MAP) 159/97 (117) 159/97 159/97 159/97 Pulse Ox 96 O2 Delivery Room Air 09/12/18 09/12/18 09/12/18 09/13/18 19:00 20:00 23:00 02:47 Temp 97.5 97.4 97.5 97.4 Pulse 66 67 Resp 18 18 B/P (MAP) 151/81 (104) 163/77 (105) Pulse Ox 93 94 94 O2 Delivery Room Air Room Air Room Air Room Air 09/13/18 09/13/18 09/13/18 09/13/18 03:00 03:47 06:58 07:00 Temp 97.5 97.7 97.5 97.7 Pulse 73 84 Resp 18 18 B/P (MAP) 144/91 (108) 132/83 (99) Pulse Ox 97 97 97 98 O2 Delivery Room Air Room Air Room Air 09/13/18 09/13/18 09/13/18 09/13/18 07:20 08:01 08:15 08:15 Pulse 84 84 B/P (MAP) 132/83 132/83 O2 Delivery Room Air Room Air 09/13/18 09/13/18 08:17 11:00 Temp 97.3 97.3 Pulse 84 74 Resp 18 B/P (MAP) 132/83 158/93 (114) Pulse Ox 98 O2 Delivery Room Air Intake and Output 09/12/18 09/12/18 09/13/18 14:59 22:59 06:59 Intake Total 120 ml 0 ml Output Total 650 ml Balance 120 ml -650 ml FELICITY DORANTES MD Sep 13, 2018 12:15
--- NOTE | 2018-09-13 13:06 | PDOC ---
SUBJECTIVE ROS Seen on TPE, LE strength improving , likely dc to Rehab today OBJECTIVE Vital Signs Vital Signs Date Time Temp Pulse Resp B/P (MAP) Pulse Ox O2 Delivery O2 Flow Rate FiO2 09/13/18 11:00 97.3 74 18 158/93 (114) 98 Room Air 97.3 I & 0 Intake and Output 09/13/18 07:00 Intake Total 120 ml Output Total 650 ml Balance -530 ml Intake Oral 120 ml Output Urine Total 650 ml # Voids 2 PHYSICAL EXAM Physical Exam GENERAL: NAD HEENT: Oropharynx clear NECK: Supple. LUNGS: Clear bilaterally. No wheezing. HEART: S1, S2. ABDOMEN: Obese, soft, NT EXTREMITIES: Bilateral trace pedal edema. NEUROLOGIC: Alert and oriented x 3. SPINE: Back incision well healed, SKIN: Warm, dry. No generalized rash. 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 Recurrent urinary tract infection Hypocalcemia- Correct for albumin Replace as indicated Cauda equina syndrome, status post surgery 06/2018. COMMENT/RELEVANT DATA Meds Current Medications Medications (Trade) Dose Ordered Sig/Didi Start Time Stop Time Status Last Admin Dose Admin Acetaminophen (Tylenol) 650 mg PRN Q4HRS PRN 09/03/18 18:45 09/03/18 21:01 650 MG Acyclovir Sodium 750 mg/Dextrose 265 ml @ 265 mls/hr Q8HRS 09/05/18 14:00 09/13/18 11:20 DC 09/13/18 05:39 265 MLS/HR Albumin Human 2,500 ml @ 0 mls/hr 1X ONCE 09/13/18 11:45 09/13/18 11:46 DC 09/13/18 12:35 3,000 MLS/HR Amlodipine Besylate (Norvasc) 10 mg DAILY 09/03/18 16:30 09/13/18 08:15 10 MG Aspirin (Ecotrin) 81 mg DAILYWBKFT 09/03/18 16:30 09/13/18 08:14 81 MG Atorvastatin Calcium (Lipitor) 40 mg QHS 09/03/18 21:00 09/06/18 15:52 DC 09/05/18 21:01 40 MG Bisacodyl (Dulcolax Supp) 10 mg PRN DAILY PRN 09/04/18 09:30 09/04/18 19:38 10 MG Bisacodyl (Dulcolax Tab) 10 mg DAILY 09/04/18 10:00 09/09/18 08:25 10 MG Calcium Carbonate/ Glycine (Oscal) 500 mg DAILY 09/06/18 14:00 09/13/18 08:16 500 MG Calcium Gluconate 2000 mg/Dextrose 120 ml @ 120 mls/hr 1X ONCE 09/13/18 12:00 09/13/18 12:59 DC 09/13/18 12:34 120 MLS/HR Calcium Gluconate 2000 mg/Sodium Chloride 120 ml @ 120 mls/hr 1X ONCE 09/12/18 08:30 09/12/18 09:29 DC 09/12/18 08:29 120 MLS/HR Cefepime HCl (Maxipime) 2 gm Q8HRS 09/05/18 14:00 09/13/18 11:20 DC 09/13/18 05:40 2 GM Cetirizine HCl (ZyrTEC) 10 mg DAILY 09/06/18 15:00 09/13/18 08:14 10 MG Ciprofloxacin (Cipro) 500 mg BID 09/03/18 21:00 09/05/18 13:20 DC 09/05/18 08:27 500 MG Dextrose (Dextrose 50%-Water Syringe) 12.5 gm PRN Q15MIN PRN 09/06/18 12:30 Docusate Sodium (Colace) 100 mg PRN DAILY PRN 09/03/18 15:30 Docusate Sodium (Enemeez) 283 mg PRN DAILY PRN 09/04/18 09:30 Doxycycline Hyclate (Vibra-Tab) 100 mg BID 09/05/18 21:00 09/13/18 11:20 DC 09/13/18 08:15 100 MG Enoxaparin Sodium (Lovenox 120mg Syringe) 120 mg Q12HR 09/07/18 11:15 09/08/18 12:10 DC 09/08/18 09:24 120 MG Enoxaparin Sodium (Lovenox 40mg Syringe) 40 mg DAILY 09/09/18 12:00 09/13/18 08:17 40 MG Enoxaparin Sodium (Lovenox Per Pharmacy Prophylaxis Dosing) 1 each DAILY PRN 09/09/18 11:15 Enoxaparin Sodium (Lovenox Per Pharmacy Treatment Dosing) 1 each PRN DAILY PRN 09/07/18 11:15 09/08/18 12:11 DC Gabapentin (Neurontin) 300 mg TID 09/08/18 21:00 09/13/18 08:14 300 MG Gadobutrol (Gadavist) 10 mmol 1X ONCE 09/04/18 13:30 09/04/18 13:31 DC 09/04/18 13:26 10 MMOL Heparin Sodium (Porcine) (Heparin Sodium) 10,000 unit STK-MED ONCE 09/13/18 12:28 09/13/18 12:29 DC Hydrocortisone Acetate (Anucort-Hc) 25 mg PRN DAILY PRN 09/04/18 13:30 Info (Anti-Coagulation Monitoring By Pharmacy) 1 each PRN DAILY PRN 09/05/18 14:00 09/10/18 15:10 DC 09/07/18 15:56 1 EACH Insulin Human Lispro (HumaLOG) 0-7 UNITS TIDWMEALS 09/06/18 17:00 09/12/18 17:11 3 UNITS Lactobacillus Rhamnosus (Culturelle) 1 cap BID 09/04/18 21:00 09/13/18 08:14 1 CAP Lidocaine/Sodium Bicarbonate (Buffered Lidocaine 1%) 3 ml 1X ONCE 09/09/18 09:30 09/09/18 09:31 DC 09/09/18 09:43 4 ML Losartan Potassium (Cozaar) 100 mg DAILY 09/03/18 16:30 09/13/18 08:15 100 MG Methylprednisolone (Medrol) 4 mg DAILY 09/09/18 09:00 09/09/18 09:00 DC Methylprednisolone Sodium Succinate (SOLU-Medrol 125MG VIAL) 500 mg BID 09/04/18 21:00 UNV Methylprednisolone Sodium Succinate 500 mg/Sodium Chloride 100 ml @ 100 mls/hr Q12HR 09/04/18 21:00 Cancel Metoprolol Succinate (Toprol Xl) 50 mg DAILY 09/03/18 16:30 09/13/18 08:17 50 MG Multivitamins (Thera M Plus) 1 tab DAILY 09/06/18 14:00 09/13/18 08:14 1 TAB Non-Formulary Medication (Amlodipine/ Valsartan (Exforge 10-320 Mg Tablet)) 1 tab DAILY 09/04/18 09:00 UNV Oxycodone/ Acetaminophen (Percocet 5/325) 1 tab PRN Q4HRS PRN 09/04/18 13:45 09/13/18 06:58 1 TAB Pantoprazole Sodium (Protonix) 40 mg DAILYAC 09/04/18 10:00 09/13/18 05:39 40 MG Polyethylene Glycol (miraLAX PACKET) 17 gm PRN DAILY PRN 09/04/18 09:00 Potassium Chloride (Klor-Con) 40 meq 1X STAT 09/13/18 10:08 09/13/18 10:13 DC 09/13/18 10:08 40 MEQ Prednisone (Prednisone) 10 mg 1X ONCE 09/24/18 09:00 09/24/18 09:01 Rivaroxaban (Xarelto) 15 mg BIDWMEALS 09/06/18 17:00 09/07/18 08:22 DC 09/06/18 17:23 15 MG Sodium Chloride 1,000 ml @ 500 mls/hr Q2H 09/11/18 12:45 09/11/18 15:44 DC Tamsulosin HCl (Flomax) 0.4 mg BID 09/03/18 21:00 09/08/18 10:46 DC 09/08/18 09:00 0.4 MG Thiamine Mononitrate (Vitamin B-1) 100 mg DAILY 09/06/18 14:00 09/13/18 08:15 100 MG Vancomycin HCl (Vancomycin Oral Solution) 125 mg BID 09/05/18 21:00 09/13/18 08:23 125 MG Lab Laboratory Tests Test 09/12/18 16:53 09/12/18 20:44 09/13/18 07:32 09/13/18 08:00 Glucose (Fingerstick) 176 mg/dL (70-99) 126 mg/dL (70-99) 91 mg/dL (70-99) White Blood Count 15.9 x10^3/uL (4.0-11.0) Red Blood Count 5.44 x10^6/uL (4.30-5.70) Hemoglobin 16.2 g/dL (13.0-17.5) Hematocrit 49.2 % (39.0-53.0) Mean Corpuscular Volume 90 fL (79-100) Mean Corpuscular Hemoglobin 30 pg (25-35) Mean Corpuscular Hemoglobin Concent 33 g/dL (31-37) Red Cell Distribution Width 14.9 % (11.5-14.5) Platelet Count 181 x10^3/uL (140-400) Neutrophils (%) (Auto) 73 % (31-73) Lymphocytes (%) (Auto) 13 % (24-48) Monocytes (%) (Auto) 10 % (0-9) Eosinophils (%) (Auto) 3 % (0-3) Basophils (%) (Auto) 0 % (0-3) Neutrophils # (Auto) 11.7 x10^3uL (1.8-7.7) Lymphocytes # (Auto) 2.1 x10^3/uL (1.0-4.8) Monocytes # (Auto) 1.7 x10^3/uL (0.0-1.1) Eosinophils # (Auto) 0.4 x10^3/uL (0.0-0.7) Basophils # (Auto) 0.0 x10^3/uL (0.0-0.2) Prothrombin Time 14.9 SEC (11.7-14.0) Prothromb Time International Ratio 1.2 (0.8-1.1) Activated Partial Thromboplast Time 26 SEC (24-38) Fibrinogen 152 mg/dL (200-440) Sodium Level 143 mmol/L (136-145) Potassium Level 3.8 mmol/L (3.5-5.1) Chloride Level 109 mmol/L (98-107) Carbon Dioxide Level 26 mmol/L (21-32) Anion Gap 8 (6-14) Calcium Level 7.9 mg/dL (8.5-10.1) Magnesium Level 2.2 mg/dL (1.8-2.4) Test 09/13/18 11:24 Glucose (Fingerstick) 94 mg/dL (70-99) Results All relevant outside records, renal labs, imaging studies, telemetry/EKG's were reviewed. CHELY BEAULIEU MD Sep 13, 2018 13:06
--- NOTE | 2018-09-13 14:57 | SNU/HH DC ---
DISCHARGE ORDERS DISCHARGE INFORMATION: DISCHARGE DATE: Sep 13, 2018 FINAL DIAGNOSIS transverse myelitis CONDITION ON DISCHARGE: Stable CODE STATUS: Code Status: Full POST DISCHARGE ORDERS: ACTIVITY ORDERS: Activity as tolerated WEIGHT BEARING STATUS: As tolerated BATHING ORDERS: Shower-keep dressing dry, No Tub Bath until see DIET AFTER DISCHARGE: ADA WOUND/INCISION CARE: No wound care needed CHECKS AFTER DISCHARGE: CHECKS AFTER DISCHARGE: Check blood press - daily FOLLOW-UP: PHYSICIAN FOLLOW-UP: Dr. Dorantes in 4 weeks [phone], Dr Broussard / Dr. Carrasquillo in 2 to 3 week TREATMENT/EQUIPMENT ORDERS: ADAPTIVE EQUIPMENT NEEDED: None Physical Therapy For: Evalulation/Treatment DISCHARGE MEDICATIONS: Home Meds Active Scripts Ciprofloxacin Hcl (CIPRO) 500 Mg Tablet, 1 TAB PO BID for UTI, #20 TAB Prov:ALIZA GIVENS MD 07/24/18 Aspirin (ASPIRIN EC) 81 Mg Tablet., 81 MG PO DAILYWBKFT for HEART HEALTH for 30 Days, #30 TAB.SR Prov:RYLIE ARVIZU MD 07/08/18 Docusate Sodium (COLACE) 100 Mg Capsule, 100 MG PO PRN DAILY PRN for HARD STOOLS for 30 Days, #30 CAP Prov:RYLIE ARVIZU MD 07/08/18 Polyethylene Glycol 3350 (POLYETHYLENE GLYCOL 3350) 17 Gm Powd.pack, 17 GM PO PRN DAILY PRN for constipation for 14 Days, #14 PKT Prov:RYLIE ARVIZU MD 07/08/18 Tamsulosin Hcl (FLOMAX) 0.4 Mg Cap.er.24h, 0.4 MG PO BID for BLADDER for 30 Days , #60 CAP.SR Prov:RYLIE ARVIZU MD 07/08/18 Reported Medications Oxycodone/Apap 5-325 (PERCOCET 5-325 MG TABLET ) 1 Each Tablet, 1-2 TAB PO Q4- 6HRS, #40 TAB 09/06/17 Amlodipine/Valsartan (EXFORGE 10-320 MG TABLET) 1 Each Tablet, 1 TAB PO DAILY, # 30 TAB 5 Refills 09/06/17 Rosuvastatin Calcium (CRESTOR) 10 Mg Tablet, 1 TAB PO DAILY, #30 TAB 5 Refills 09/06/17 Metoprolol Succinate (TOPROL XL) 50 Mg Tab.er.24h, 1 TAB PO DAILY, #30 TAB 5 Refills 09/06/17 FELICITY DORANTES MD Sep 13, 2018 14:57
[2018-09-13 15:00] VITALS: BP 146/88
--- NOTE | 2018-09-13 15:09 | NUR ---
SW following up with pt dc plan. Pt will tentatively dc today and go to [facility] at 1800. Pt will be transported by EMS ambulance, phone: [phone]. SW is awaiting dc orders. Orders must be received and faxed prior to pt dc to acute rehabilitation. If received before SW is off, SW will fax. If received after, RN will fax. SW provided RN with instructions and contact information. RN is agreeable with plan. If orders are not received, dc will need to be canceled.
--- NOTE | 2018-09-13 19:23 | NUR ---
Report was given to Leonora at [facility] by phone. All documents were faxed to facility. Med list updated and faxed, packet given to EMS. All belongings left with pt at time of discharge. at bedside. Temp dialysis catheter removed, Iv removed, no tele. Pt is stable. Alert x4. Pt left via EMS at 1907. All teaching, follow information, and med list was given to patient and before the left.
--- NOTE | 2018-09-13 19:50 | NUR ---
[facility].
[2018-09-16] MEDS ORDERED: predniSONE 20 MG TABLET PO ONE (09:00)
[2018-09-17] MEDS ORDERED: predniSONE 20 MG TABLET PO ONE (09:00)
[2018-09-18] MEDS ORDERED: predniSONE 10 MG TABLET PO ONE (09:00)
[2018-09-19] MEDS ORDERED: predniSONE 20 MG TABLET PO SCH (09:00)
[2018-09-22] MEDS ORDERED: predniSONE 10 MG TABLET PO ONE (09:00)
[2018-09-24] MEDS ORDERED: predniSONE 10 MG TABLET PO ONE (09:00)
--- NOTE | 2018-10-07 20:32 | DS ---
DATE OF DISCHARGE: 09/13/2018 DISCHARGE DIAGNOSES: 1. T9-T10 transverse myelitis, improving with plasma exchange. 2. Lumbar spondylosis, status post lumbar decompression. HISTORY OF PRESENT ILLNESS: The patient is a pleasant 63-year-old man who in late June underwent emergent lumbar surgery at L3-L4 and L5-S1 for lumbar stenosis and loss of bowel and bladder function as well as back and leg pain, right greater than left. He did improve following that surgery significantly with strength and sensation in the lower extremities. He was discharged and placed into physical therapy. He did continue to require straight catheterization. A few weeks after surgery, he developed problems with UTI and then later with C. diff, but those problems resolved. His reported that about 2 weeks ago, he fell in the shower and after that time began noticing increasing weakness in his legs. She said the 3 days prior to admission he had difficulty transferring from the wheelchair to his bed and was basically at bed rest. We were contacted by phone and the patient was admitted for further evaluation and treatment. HOSPITAL COURSE: He was admitted to the floor. MRI scanning was obtained and he was found to have T9-T10 transverse myelitis. Dr. Frias as well as Dr. Cruz with Neurology were consulted. He has undergone plasma exchange and does note improvement in his strength and sensation in the lower extremities. He is in good condition to transfer to acute rehab. DISCHARGE MEDICATIONS: He will continue his medications listed on the MRAD. DISCHARGE INSTRUCTIONS: He was instructed regarding activity restrictions and possible expectations for the next several weeks. We will make arrangements with acute rehab for followup in our office as well. He understands to call us directly with any questions or concerns. FELICITY DORANTES MD DR: DOROTHY/sen JOB#: [id number] / [id number]
[2018-11-13] MEDS ORDERED: GABA300C18 PO (04:31)
[2018-11-15] MEDS ORDERED: LACT1CAP19 PO (10:05)
[2018-11-15] MEDS ORDERED: VANC500V PO (10:05)
== END 2018-09-13 19:50 | DRG 98 ==
LOC: 4 NORTH 13:38
PROVIDERS: ADMIT Neurological Surgery; ATTEND Neurological Surgery
PROC: 30233K1 Transfusion of Nonautologous Frozen Plasma into Peripheral Vein, Percutaneous Approach (ICD-10-PCS; principal; 2018-09-03)
PROC: 009U3ZX Drainage of Spinal Canal, Percutaneous Approach, Diagnostic (ICD-10-PCS; 2018-09-05)
PROC: B01B1ZZ Fluoroscopy of Spinal Cord using Low Osmolar Contrast (ICD-10-PCS; 2018-09-05)
PROC: 02HV33Z Insertion of Infusion Device into Superior Vena Cava, Percutaneous Approach (ICD-10-PCS; 2018-09-09)
PROC: B5181ZA Fluoroscopy of Superior Vena Cava using Low Osmolar Contrast, Guidance (ICD-10-PCS; 2018-09-09)
PROC: B548ZZA Ultrasonography of Superior Vena Cava, Guidance (ICD-10-PCS; 2018-09-09)
DX: G37.3 Acute transverse myelitis in demyelinating disease of central nervous system (principal); G83.4 Cauda equina syndrome; I82.441 Acute embolism and thrombosis of right tibial vein; K59.2 Neurogenic bowel, not elsewhere classified; N39.0 Urinary tract infection, site not specified; E66.9 Obesity, unspecified; G82.20 Paraplegia, unspecified; E78.00 Pure hypercholesterolemia, unspecified; E78.5 Hyperlipidemia, unspecified; E83.51 Hypocalcemia; I10 Essential (primary) hypertension; I49.3 Ventricular premature depolarization; R73.9 Hyperglycemia, unspecified; J30.2 Other seasonal allergic rhinitis; M19.90 Unspecified osteoarthritis, unspecified site; M47.816 Spondylosis without myelopathy or radiculopathy, lumbar region; M48.061 Spinal stenosis, lumbar region without neurogenic claudication; T38.0X5A Adverse effect of glucocorticoids and synthetic analogues, initial encounter; W18.2XXA Fall in (into) shower or empty bathtub, initial encounter; Y93.E1 Activity, personal bathing and showering; Z87.440 Personal history of urinary (tract) infections; Z96.643 Presence of artificial hip joint, bilateral; Z96.653 Presence of artificial knee joint, bilateral; Z68.36 Body mass index [BMI] 36.0-36.9, adult; Y92.89 Other specified places as the place of occurrence of the external cause; Y99.8 Other external cause status
CPT/HCPCS: 36415; 36556; 62270; 70553; 71045; 72157; 72158; 74176; 76937; 77001; 80048; 80051; 80053; 81001; 82040; 82310; 82550; 82607; 82784; 82787; 82945; 82962; 83735; 84157; 84443; 85007; 85025; 85384; 85520; 85610; 85651; 85730; 86140; 86481; 86592; 86644; 86645; 86703; 86738; 86788; 86789; 86850; 86900; 86901; 86927; 87071; 87075; 87086; 87340; 87529; 87798; 88112; 89051; 93970; 93971; A9585; C1769; C1892; J0133; J0610; J0692; J1644; J1650; J1815; J2930; J7509; J7512; P9017; P9045; 97110; 97530

== ENCOUNTER → 2018-12-25 | Outpatient (CLI) | payer BC, MEDICARE, OTHER ==
[2018-11-20 11:00] VITALS: BP 158/71
[~2018-12-25] MED LIST changes: +GABA300C18 PO; +LACT1CAP19 PO; +VANC500V PO
[2018-12-25 11:26] LABS: ALBUMIN 2.1 g/dL (3.4-5.0); ALBUMIN/GLOBULIN RATIO 0.5 (1.0-1.7); CALCIUM 8.4 mg/dL (8.5-10.1); CREATININE 0.7 mg/dL (0.7-1.3); GFR 113.2; POTASSIUM 4.2 mmol/L (3.5-5.1); TOTAL BILIRUBIN 0.2 mg/dL (0.2-1.0); TOTAL PROTEIN 6.6 g/dL (6.4-8.2)
[2018-12-25 11:42] LABS: FREE T4 1.15 ng/dL (0.76-1.46); THYROID STIM HORMONE (TSH) 1.833 uIU/mL (0.358-3.74)
[2018-12-27 17:09] LABS: ANA INTERP Negative (.)
== END | disposition home or self-care (01) ==
LOC: LAB 10:08
PROVIDERS: ATTEND Psychiatry & Neurology Neurology
DX: G04.89 Other myelitis (principal); Z79.899 Other long term (current) drug therapy
CPT/HCPCS: 36415; 80053; 82550; 82607; 84439; 84443; 86038

== ENCOUNTER → 2018-12-31 | Outpatient (CLI) | payer BC, MEDICARE, OTHER ==
[2018-11-20 11:00] VITALS: BP 158/71
[~2018-12-31] MED LIST changes: +GADOTERATE 7.5 MMOL/15ML VIAL. IVP ONE
--- NOTE | 2019-01-01 08:23 | RAD ---
THORACIC SPINE WO/W CONTRAST, LUMBAR SPINE WO/W CONTRAST Date: 12/31/2018 12:00 AM Indication: Transverse myelitis Comparison: Serial MRI, most recently 10/28/2018. Technique: Multi-planar multi-weighted magnetic resonance imaging of the thoracic spine and lumbar spine was performed with and without intravenous contrast. 23 cc Dotarem contrast was administered intravenously during the examination. FINDINGS: Diffusely abnormal T2/STIR hyperintense spinal cord signal has progressed in both signal intensity and superior extent, now extending from the level of T5 and down through the conus, previously extending up to T7. There is mild ill-defined enhancement of the conus medullaris. The lumbar spine is normally aligned. No acute fracture. Mild multilevel degenerative disc desiccation and disc height loss. Scattered vertebral body hemangiomas. Scattered degenerative endplate changes. Unchanged thoracic and lumbar spondylosis with multilevel spinal stenosis and neural foraminal narrowing, detailed in full on prior exams. No soft tissue abnormality in the visualized thorax, abdomen, or pelvis. IMPRESSION: Progression in both signal intensity and superior extent of diffusely abnormal spinal cord signal involving the mid to distal thoracic cord. There is mild ill-defined enhancement of the conus medullaris. Findings are consistent with patient's history of transverse myelitis. Electronically signed by: Link Granger MD (01/01/2019 8:20 AM) [id number]
== END | disposition home or self-care (01) ==
LOC: MRI 14:44
PROVIDERS: ATTEND Psychiatry & Neurology Neurology
DX: M47.815 Spondylosis without myelopathy or radiculopathy, thoracolumbar region (principal); M48.05 Spinal stenosis, thoracolumbar region; G04.89 Other myelitis; G83.4 Cauda equina syndrome; D18.09 Hemangioma of other sites
CPT/HCPCS: 72157; 72158; A9575

== ENCOUNTER 2019-03-13 09:36 | Inpatient (IN) | payer BC, MEDICARE, OTHER ==
[~2019-03-13] VITALS: Ht 182.9 cm; Wt 115.7 kg
[~2019-03-13 09:36] MED LIST changes: -GADOTERATE 7.5 MMOL/15ML VIAL. IVP ONE
--- NOTE | 2019-03-13 10:59 | PDOC1 ---
History and Physical Date of Admission Date of Admission DATE: 03/13/19 TIME: 10:58 Identification/Chief Complaint Chief Complaint DIRECT ADMIT FROM WOUND CARE WITH LOW GRADE FEVER, CHILLS X SEVERAL DAYS, OPEN WOUND OF COCCYX AREA, SLOW TO HEAL Past Medical History Past Medical History Past Medical History Cardiovascular: HTN, Hyperlipidemia, Other Pulmonary: No pertinent hx CENTRAL NERVOUS SYSTEM: Periperal neuropathy TRANSVERSE MYELITIS GI: No pertinent hx Heme/Onc: No pertinent hx Hepatobiliary: No pertinent hx, Cholelithiasis Psych: No pertinent hx Musculoskeletal: Osteoarthritis, Other Rheumatologic: No pertinent hx Infectious disease: No pertinent hx Renal/: No pertinent hx Endocrine: No pertinent hx Past Surgical History Past Surgical History: Other Family History Family History: Heart Disease, Other Social History Smoke: No ALCOHOL: none Drugs: None Cardiovascular: HTN, Hyperlipidemia, Other Pulmonary: No pertinent hx CENTRAL NERVOUS SYSTEM: Periperal neuropathy GI: No pertinent hx Heme/Onc: No pertinent hx Hepatobiliary: No pertinent hx, Cholelithiasis Psych: No pertinent hx Musculoskeletal: Osteoarthritis, Muscle atrophy, Weakness, Other Rheumatologic: No pertinent hx Infectious disease: No pertinent hx Renal/: No pertinent hx Endocrine: No pertinent hx Dermatology: Cellulitis, Other (sacral decub) Past Surgical History Past Surgical History: Other Family History Family History: Heart Disease, Other Social History Smoke: No ALCOHOL: none Drugs: None Current Medications Current Medications Active Scripts Active Culturelle (Lactobacillus Rhamnosus Gg) 1 Each Cap.sprink 1 Cap PO BID MDD 1 14 Days Vancomycin Hcl 500 Mg Vial 125 Mg PO CAR0253 MDD 1 14 Days Aspirin Ec (Aspirin) 81 Mg Tablet.dr 81 Mg PO DAILYWBKFT 30 Days Reported Gabapentin (Gabapentin) 300 Mg Capsule 300 Mg PO TID Percocet 5-325 Mg Tablet (Oxycodone/Acetaminophen) 1 Each Tablet 1-2 Tab PO Q4-6HRS Exforge 10-320 Mg Tablet (Amlodipine/Valsartan) 1 Each Tablet 1 Tab PO DAILY Crestor (Rosuvastatin Calcium) 10 Mg Tablet 1 Tab PO DAILY Toprol Xl (Metoprolol Succinate) 50 Mg Tab.er.24h 1 Tab PO DAILY Allergies Allergies: Coded Allergies: No Known Drug Allergies (Unverified , 09/06/17) ROS General: YES: Chills, Fatigue PSYCHOLOGICAL ROS: No: Anxiety, Behavioral Disorder, Concentration difficultie, Decreased libido, Depression, Disorientation, Hallucinations, Hostility, Irritablity, Memory difficulties, Mood Swings, Obsessive thoughts, Physical abuse, Sexual abuse, Sleep disturbances, Suicidal ideation, Other HEENT: No: Heacaches, Visual Changes, Hearing change, Nasal congestion, Nasal discharge, Oral lesions, Sinus pain, Sore Throat, Epistaxis, Sneezing, Snoring, Tinnitus, Vertigo, Vocal changes, Other ALLERGY AND IMMUNOLOGY: No: Hives, Insect Bite Sensitivity, Itchy/Watery Eyes, Nasal Congestion, Post Nasal Drip, Seasonal Allergies, Other Hematological and Lymphatic: No: Bleeding Problems, Blood Clots, Blood Transfusions, Brusing, Night Sweats, Pallor, Swollen Lymph Nodes, Other Respiratory: YES: Cough; No: Hemoptysis, Orthopnea, Pleuritic Pain, Shortness of breath, SOB with excertion, Sputum Changes, Stridor, Tachypnea, Wheezing, Other Cardiovascular: No Chest Pain, No Palpitations, No Orthopnea, No Paroxysmal Noc. Dyspnea, No Edema, No Lt Headedness, No Other Gastrointestinal: No Nausea, No Vomiting, No Abdominal Pain, No Diarrhea, No Constipation, No Melena, No Hematochezia, No Other Genitourinary: YES Retention Musculoskeletal: Yes Gait Disturbance Neurological: Yes Bowel/Bladder ControlChng, Yes Gait Disturbance Skin: Yes Skin Lesion Changes Physical Exam General: Alert, Oriented X3, Cooperative, mild distress HEENT: Atraumatic, PERRLA, EOMI, Mucous membr. moist/pink Lungs: Clear to auscultation, Normal air movement Heart: S1S2, RRR, no thrills, no gallops Breasts: Not examined Abdomen: Normal bowel sounds, Soft Rectal Exam: not examined PELVIC: Examination not indicated Extremities: No clubbing, No cyanosis Neuro: Normal speech, Cranial nerves 3-12 NL Psych/Mental Status: Mental status NL, Mood NL Images Images : 1955 LOCATION: MRI AGE: 63 SEX: M EXAM STATUS: REG CLI ORD. PHYSICIAN: IVETTE REDMAN MD REASON: TRANSVERSE MYELITIS PROGRESSION CHECK PROCEDURE: LUMBAR SPINE WO/W CONTRAST THORACIC SPINE WO/W CONTRAST, LUMBAR SPINE WO/W CONTRAST Date: 12/31/2018 12:00 AM Indication: Transverse myelitis Comparison: Serial MRI, most recently 10/28/2018. Technique: Multi-planar multi-weighted magnetic resonance imaging of the thoracic spine and lumbar spine was performed with and without intravenous contrast. 23 cc Dotarem contrast was administered intravenously during the examination. FINDINGS: Diffusely abnormal T2/STIR hyperintense spinal cord signal has progressed in both signal intensity and superior extent, now extending from the level of T5 and down through the conus, previously extending up to T7. There is mild ill-defined enhancement of the conus medullaris. The lumbar spine is normally aligned. No acute fracture. Mild multilevel degenerative disc desiccation and disc height loss. Scattered vertebral body hemangiomas. Scattered degenerative endplate changes. Unchanged thoracic and lumbar spondylosis with multilevel spinal stenosis and neural foraminal narrowing, detailed in full on prior exams. No soft tissue abnormality in the visualized thorax, abdomen, or pelvis. IMPRESSION: Progression in both signal intensity and superior extent of diffusely abnormal spinal cord signal involving the mid to distal thoracic cord. There is mild ill-defined enhancement of the conus medullaris. Findings are consistent with patient's history of transverse myelitis. Electronically signed by: Link Granger MD (01/01/2019 8:20 AM) [email or web address] VTE Prophylaxis Ordered VTE Prophylaxis Devices: No VTE Pharmacological Prophylaxi: Yes Assessment/Plan Assessment/Plan Assessment/Plan SEPSIS leukocytosis HX c. diff, recurrent colitis nonhealing pressure wounds - deep sacrococcygeal, left ischial, superficial bilat heels) has been to wound care SEVERAL weeks h/o recurrent c. difficile (Jul & November 2018) on long taper obesity, BMI 34 Hx transverse myelitis, paraplegia, 12/27 MRI L/S C/W Progression in both signal intensity and superior extent of diffusely abnormal spinal cord signal involving the mid to distal thoracic cord. There is mild ill-defined enhancement of the conus medullaris. Findings are consistent with patient's history of transverse myelitis. mod.severe malnutrition MORBID OBESITY PLAN BLOOD CULTURES CONSULT ID WOUND CARE CONSULT BLOOD CULT EMPERIC IV ANTIBIOTICS dvt prophylaxis d/w rn and in room 76 MIN PT EXAM, CHART REVIEW, > 50% OF TIME SPENT WITH EXAM, CHART REVIEW, PT CARE COORDINATION RYLIE ARVIZU MD Mar 13, 2019 10:59
[2019-03-13 11:00] VITALS: BP 137/77
--- NOTE | 2019-03-13 11:00 | NUR ---
Wound care: patient was seen in clinic today regarding wound care. All wounds were cleansed, assessed, measured, and pictured. Patient has had reoccurring fevers at home, decreased appetite, and wounds have deteriorated since last visit. Spoke with Dr. Napoles and patient to be admitted to hospital. Patient and both agreeable. Dr. Mejia notified and agreeable with admission for Sepsis. supervisor reclamation notified. All dressings applied, pictures printed for chart, dressing change instructions sent with patient in packet. Patient assisted back to wheelchair and taken over to registration. Will follow patient regarding wound care.
[2019-03-13] MEDS ORDERED: DIGE1CAP PO (11:02)
[2019-03-13] MEDS ORDERED: OMEG350C PO (11:02)
[2019-03-13] MEDS ORDERED: GLUC100018 PO (11:02)
[2019-03-13] MEDS ORDERED: APIX5TAB PO (11:02)
[2019-03-13] MEDS ORDERED: AMLO1TAB15 PO (11:02)
[2019-03-13] MEDS ORDERED: FURO-68 PO (11:02)
[2019-03-13] MEDS ORDERED: MILK1TAB PO (11:02)
[2019-03-13] MEDS ORDERED: LECI400C PO (11:02)
[2019-03-13] MEDS ORDERED: SAW450CA7 PO (11:02)
[2019-03-13] MEDS ORDERED: OXYC1TAB15 PO (11:02)
[2019-03-13] MEDS ORDERED: VANC125C3 PO (11:02)
[2019-03-13] MEDS ORDERED: RIVA20TA2 PO (11:02)
[2019-03-13 12:03] LABS: BASO # 0.1 x10^3/uL (0.0-0.2); BASO % 0 % (0-3); EOS # 0.4 x10^3/uL (0.0-0.7); EOS % 2 % (0-3); HEMATOCRIT 34.9 % (39.0-53.0); HEMOGLOBIN 11.7 g/dL (13.0-17.5); LYMPH # 1.3 x10^3/uL (1.0-4.8); LYMPH % 7 % (24-48); MEAN CORPUSCULAR HEMOGLOBIN 29 pg (25-35); MEAN CORPUSCULAR HGB CONC 33 g/dL (31-37); MEAN CORPUSCULAR VOLUME 86 fL (79-100); MONO # 1.1 x10^3/uL (0.0-1.1); MONO % 6 % (0-9); NEUT # 14.7 x10^3/uL (1.8-7.7); NEUT % 84 % (31-73); PLATELET COUNT 413 x10^3/uL (140-400); RED BLOOD COUNT 4.08 x10^6/uL (4.30-5.70); RED CELL DISTRIBUTION WIDTH 15.9 % (11.5-14.5); WHITE BLOOD COUNT 17.5 x10^3/uL (4.0-11.0)
[2019-03-13 12:10] LABS: PROTHROMBIN TIME PATIENT 17.6 SEC (11.7-14.0)
[2019-03-13 12:20] LABS: ALBUMIN 2.2 g/dL (3.4-5.0); ALBUMIN/GLOBULIN RATIO 0.4 (1.0-1.7); CALCIUM 9.2 mg/dL (8.5-10.1); CREATININE 0.6 mg/dL (0.7-1.3); GFR 134.8; POTASSIUM 3.9 mmol/L (3.5-5.1); TOTAL BILIRUBIN 0.4 mg/dL (0.2-1.0); TOTAL PROTEIN 7.7 g/dL (6.4-8.2)
[2019-03-13 12:22] LABS: % BANDS 9 % (0-9); % BASOS 1 % (0-3); % EOS 1 % (0-5); % LYMPHS 6 % (24-48); % MONOS 5 % (0-10); % SEGS 78 % (35-66); ANISOCYTOSIS SLIGHT; PLT ESTIMATE INCREASED (ADEQUATE)
[2019-03-13] MEDS ORDERED: IV NORMAL SALINE 1000ML BAG 1,000 ML IV SCH (13:45)
--- NOTE | 2019-03-13 14:08 | PDOC ---
Infectious Disease Note Vital Sign Vital Signs Vital Signs Date Time Temp Pulse Resp B/P (MAP) Pulse Ox O2 Delivery O2 Flow Rate FiO2 03/13/19 11:00 97.5 91 18 137/77 (97) 95 Room Air 97.5 Labs Lab Laboratory Tests Test 03/13/19 11:40 White Blood Count 17.5 x10^3/uL (4.0-11.0) Red Blood Count 4.08 x10^6/uL (4.30-5.70) Hemoglobin 11.7 g/dL (13.0-17.5) Hematocrit 34.9 % (39.0-53.0) Mean Corpuscular Volume 86 fL (79-100) Mean Corpuscular Hemoglobin 29 pg (25-35) Mean Corpuscular Hemoglobin Concent 33 g/dL (31-37) Red Cell Distribution Width 15.9 % (11.5-14.5) Platelet Count 413 x10^3/uL (140-400) Neutrophils (%) (Auto) 84 % (31-73) Lymphocytes (%) (Auto) 7 % (24-48) Monocytes (%) (Auto) 6 % (0-9) Eosinophils (%) (Auto) 2 % (0-3) Basophils (%) (Auto) 0 % (0-3) Neutrophils # (Auto) 14.7 x10^3/uL (1.8-7.7) Lymphocytes # (Auto) 1.3 x10^3/uL (1.0-4.8) Monocytes # (Auto) 1.1 x10^3/uL (0.0-1.1) Eosinophils # (Auto) 0.4 x10^3/uL (0.0-0.7) Basophils # (Auto) 0.1 x10^3/uL (0.0-0.2) Segmented Neutrophils % 78 % (35-66) Band Neutrophils % 9 % (0-9) Lymphocytes % 6 % (24-48) Monocytes % 5 % (0-10) Eosinophils % 1 % (0-5) Basophils % 1 % (0-3) Platelet Estimate Increased (ADEQUATE) Large Platelets Few Anisocytosis Slight Prothrombin Time 17.6 SEC (11.7-14.0) Prothromb Time International Ratio 1.5 (0.8-1.1) Sodium Level 143 mmol/L (136-145) Potassium Level 3.9 mmol/L (3.5-5.1) Chloride Level 105 mmol/L (98-107) Carbon Dioxide Level 28 mmol/L (21-32) Anion Gap 10 (6-14) Blood Urea Nitrogen 13 mg/dL (8-26) Creatinine 0.6 mg/dL (0.7-1.3) Estimated GFR (Cockcroft-Gault) 134.8 BUN/Creatinine Ratio 22 (6-20) Glucose Level 99 mg/dL (70-99) Calcium Level 9.2 mg/dL (8.5-10.1) Total Bilirubin 0.4 mg/dL (0.2-1.0) Aspartate Amino Transf (AST/SGOT) 30 U/L (15-37) Alanine Aminotransferase (ALT/SGPT) 34 U/L (16-63) Alkaline Phosphatase 94 U/L (46-116) Total Protein 7.7 g/dL (6.4-8.2) Albumin 2.2 g/dL (3.4-5.0) Albumin/Globulin Ratio 0.4 (1.0-1.7) Objective Assessment Fever and chills (reportedly fevers ranging from 101-106 at home over last 2 weeks; and shakes for past 2 months) Leukocytosis Multiple nonhealing pressure wounds -sacrococcygeal, left ischial, bilat heels) has been to wound care for 8 weeks 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 Has tolerated amoxicillin in the past Neurogenic bladder requiring self-catherizations Paraplegia. h/o transverse myelitis. E. coli (warren-S) -Followed by neurologist Dr. Eddy at [facility] h/o PE Plan Plan of Care According to patient's , he had blood cultures done on the at Dr. Hopkins's office. awaiting results Repeat blood cultures here, check UA C&S, procalcitoin level & lactic acid Repeat CBC/bmp in am Wound care team consulted D/w at bedside D/w nursing Thank you Add micafungin/sed rate/Vanc/Zosyn recent high dose steroid 01/17 to 02/12 - risk for infection MRI thoracic/lumbar and pelvis with ? increasing inflammation of spine per [facility] note 02/06 and deep ischial wound po Vanc to BID Will need I and D - Consult Dr. Brand Heel wounds per wound care. D/w Reviewed [facility] notes Attending Co-Sign Attending Co-Sign The patient was seen and interviewed as well as examined at the bedside. The chart was reviewed. The case was discussed. Agree with the plan of care. BEATRICE RO APRN Mar 13, 2019 14:08 MILIND GUZMAN MD Mar 13, 2019 15:19
[2019-03-13 15:00] VITALS: BP_SYST 137; BP_SYST 191; BP_DIAS 120; BP_DIAS 76
[2019-03-13] MEDS ORDERED: VANCOMYCIN 2 GM in IV NORMAL SALINE 500ML BAG 500 ML IV ONE (15:00)
[2019-03-13 15:03] LABS: BILIRUBIN,URINE NEGATIVE (NEG); CLARITY,URINE CLOUDY; COLOR,URINE AMBER; NITRITE,URINE POSITIVE (NEG); PH,URINE 5.5; PROTEIN,URINE 30 mg/dL (NEG-TRACE)
[2019-03-13 15:11] LABS: BACTERIA,URINE MANY /HPF (0-FEW); RBC,URINE 0 /HPF (0-2); WBC,URINE TNTC /HPF (0-4)
[2019-03-13] MEDS ORDERED: ACETAMINOPHEN 325 MG TABLET. PO PRN (16:15)
[2019-03-13] MEDS: VANCOMYCIN 125 MG/2.5 ML ORAL SOLUTION. PO SCH ×2 (16:26→21:30)
[2019-03-13] MEDS: PIPERACILLIN/TAZOBACTAM 3.375 GM in IV NORMAL SALINE 50ML 50 ML IV SCH ×3 (16:26→23:41)
[2019-03-13] MEDS: VANCOMYCIN PER PHARMACY MC PRN ×2 (16:37→17:47)
[2019-03-13] MEDS: IV NORMAL SALINE 1000ML BAG 1,000 ML IV SCH ×5 (16:41→22:13)
--- NOTE | 2019-03-13 16:44 | NUR ---
Pharmacy Vancomycin Dosing Note S:Consulted to monitor and dose vancomycin started 03/13/19. O:DONAVON TRAVIS is a 64 year old M with Sepsis / Cellulitis. Height: 6 feet, 0 inches Weight: 115.835867 kg [place] Body Weight: 77.60 Adjusted Body Weight: 92.84 Dosing Weight: Other Antibiotics: LABS: Last BUN: 13 Last Creatinine: 0.6 Creatinine Clearance: 95.4 mL/min Last WBC: 17.5 Last Procalcitonin: 1.22 Tmax (past 24 hours): 100.1 Microbiology: I/O: Drug Levels: Last level: on at Last dose given 03/13/19 at 1420 Vancomycin Dosing: Loading Dose: 2000 mg x1 Dosing Weight: Actual Target Trough: 15-20 A: Based on weight and est. CrCl: P: 1. Vancomycin 2000mg, followed by Vancomycin 1750 mg IV q12h. 2. Follow up Trough level on 03/15/19 at 0130. 3. Pharmacy will continue to monitor, follow and adjust therapy as needed. Arsenio Bailey [facility], 03/13/19 [id number]
[2019-03-13] MEDS ORDERED: guaiFENesin ORAL 200 MG/10 ML LIQUID. PO PRN (16:45)
[2019-03-13] MEDS ORDERED: ALBUTEROL SULFATE 2.5 MG/3 ML NEBU. NEB PRN (16:45)
[2019-03-13] MEDS ORDERED: IV NORMAL SALINE 500ML BAG 500 ML IV PRN (16:45)
[2019-03-13] MEDS ORDERED: ZOLPIDEM 5 MG TABLET. PO PRN (16:45)
[2019-03-13] MEDS ORDERED: ONDANSETRON PF 4 MG/2 ML VIAL. IV PRN (16:45)
[2019-03-13] MEDS ORDERED: LORazepam 0.5 MG TABLET PO PRN (16:45)
[2019-03-13] MEDS ORDERED: 0.9 % SODIUM CHLORIDE 10 ML DISP.SYRIN. IV PRN (16:45)
[2019-03-13] MEDS ORDERED: oxyCODONE/APAP 5/325 1 TAB TABLET PO PRN ×2 (16:45)
[2019-03-13] MEDS ORDERED: HYDROmorphone 2 MG/ML VIAL IV PRN (16:45)
[2019-03-13] MEDS ORDERED: DOCUSATE SODIUM 100 MG CAPSULE. PO PRN (16:45)
[2019-03-13] MEDS ORDERED: cloNIDine HCL 0.1 MG TABLET PO PRN (16:45)
[2019-03-13] MEDS: MICAFUNGIN 100 MG in IV DEXTROSE 5% 100ML 100 ML IV SCH (17:35)
--- NOTE | 2019-03-13 18:28 | RAD ---
Bilateral Lower Extremity Venous Doppler Ultrasound History: Lower extremity edema Comparison: None Procedure: Color flow, duplex, spectral analysis and 2D images are obtained with and without compression in the area of the common femoral vein, superficial femoral vein - femoral vein junction, main femoral vein (superficial femoral vein) and popliteal vein. Veins of the proximal calf are also imaged. Findings: There is normal duplex flow, color flow and compressibility of all visualized vein segments. No evidence of deep venous thrombus is present. Impression: No evidence of DVT. Electronically signed by: Steve Hoskins III, MD (03/13/2019 6:25 PM) [facility] [place]
[2019-03-13 19:00] VITALS: BP 107/66
[2019-03-13] MEDS ORDERED: [UNRECOGNIZED DRUG - OTHER] PO SCH (21:00)
[2019-03-13] MEDS ORDERED: LECITHIN PO SCH (21:00)
[2019-03-13] MEDS ORDERED: NON FORMULARY ITEM (Glucosamine Sulfate 2KCL (Glucosamine) 500 MG) PO SCH (21:00)
[2019-03-13] MEDS: ATORVASTATIN CALCIUM 40 MG TABLET. PO SCH (21:30)
[2019-03-13] MEDS: GABAPENTIN 300 MG CAPSULE. PO SCH (21:31)
[2019-03-13] MEDS: APIXABAN 5 MG TABLET. PO SCH (21:31)
[2019-03-13 23:00] VITALS: BP 125/74
[2019-03-14 03:00] VITALS: BP 119/68
[2019-03-14] MEDS: VANCOMYCIN 1.75 GM in IV NORMAL SALINE 500ML BAG 500 ML IV SCH ×3 (03:18→21:28)
[2019-03-14 04:48] LABS: CREATININE 0.6 mg/dL (0.7-1.3); GFR 134.8; POTASSIUM 3.3 mmol/L (3.5-5.1)
[2019-03-14 04:49] LABS: BASO # 0.1 x10^3/uL (0.0-0.2); BASO % 1 % (0-3); EOS # 0.2 x10^3/uL (0.0-0.7); EOS % 2 % (0-3); HEMATOCRIT 27.5 % (39.0-53.0); HEMOGLOBIN 9.3 g/dL (13.0-17.5); LYMPH # 1.1 x10^3/uL (1.0-4.8); LYMPH % 8 % (24-48); MEAN CORPUSCULAR HEMOGLOBIN 29 pg (25-35); MEAN CORPUSCULAR HGB CONC 34 g/dL (31-37); MEAN CORPUSCULAR VOLUME 85 fL (79-100); MONO # 0.9 x10^3/uL (0.0-1.1); MONO % 7 % (0-9); NEUT % 84 % (31-73); PLATELET COUNT 362 x10^3/uL (140-400); RED BLOOD COUNT 3.23 x10^6/uL (4.30-5.70); RED CELL DISTRIBUTION WIDTH 15.6 % (11.5-14.5); WHITE BLOOD COUNT 14.3 x10^3/uL (4.0-11.0)
[2019-03-14] MEDS: PIPERACILLIN/TAZOBACTAM 3.375 GM in IV NORMAL SALINE 50ML 50 ML IV SCH ×3 (06:08→17:42)
[2019-03-14 07:00] VITALS: BP 108/66
--- NOTE | 2019-03-14 08:12 | PDOC2 ---
SUSY ISAAC [employer] 03/14/19 0812: CONSULT Date of Consult Date of Consult DATE: 03/14/19 TIME: 08:03 Reason for Consult Reason for Consult: sacral wounds Referring Physician Referring Physician: Dr Pittman Identification/Chief Complaint Chief Complaint sepsis Source Source: Chart review, Patient History of Present Illness Reason for Visit: Been receiving treatment in wound clinic since December for 2 sacral wounds. Over the last 2 weeks declining in health with poor appetite, fatigue, fevers, and chills. Seen in wound clinic yesterday and concerns for worsening condition of wounds. Admitted for further evaluation Past Medical History Cardiovascular: HTN, Hyperlipidemia, Other Pulmonary: No pertinent hx CENTRAL NERVOUS SYSTEM: Periperal neuropathy GI: No pertinent hx Heme/Onc: No pertinent hx Hepatobiliary: No pertinent hx, Cholelithiasis Psych: No pertinent hx Musculoskeletal: Osteoarthritis, Muscle atrophy, Weakness, Other Rheumatologic: No pertinent hx Infectious disease: No pertinent hx Renal/: No pertinent hx Endocrine: No pertinent hx Dermatology: Cellulitis, Other (sacral decub) Past Surgical History Past Surgical History: Other Family History Family History: Heart Disease, Other Social History No ALCOHOL: none Drugs: None Lives: with Family Current Medications Current Medications Current Medications Sodium Chloride 1,000 ml @ 80 mls/hr [id number] IV Last administered on 03/13/19at 13:45; Start 03/13/19 at 13:45; Stop 03/13/19 at 17:48; Status DC Vancomycin HCl (Vanco Per Pharmacy) 1 each PRN DAILY PRN MC SEE COMMENTS Last administered on 03/13/19at 17:47; Start 03/13/19 at 13:30 Piperacillin Sod/ Tazobactam Sod 3.375 gm/Sodium Chloride 50 ml @ 100 mls/hr Q6HRS IV Last administered on 03/14/19at 06:08; Start 03/13/19 at 14:00 Vancomycin HCl 2 gm/Sodium Chloride 500 ml @ 250 mls/hr 1X ONCE IV Last administered on 03/13/19at 14:20; Start 03/13/19 at 15:00; Stop 03/13/19 at 16:59; Status DC Micafungin Sodium 100 mg/Dextrose 100 ml @ 100 mls/hr Q24H IV Last administered on 03/13/19at 17:35; Start 03/13/19 at 16:00 Vancomycin HCl (Vancomycin Oral Solution) 125 mg BID PO Last administered on 03/13/19at 21:30; Start 03/13/19 at 16:00 Acetaminophen (Tylenol) 650 mg PRN Q6HRS PRN PO FEVER Last administered on 03/13/19at 16:26; Start 03/13/19 at 16:15; Stop 03/13/19 at 17:48; Status DC Vancomycin HCl 1.75 gm/Sodium Chloride 500 ml @ 250 mls/hr Q12H IV Last administered on 03/14/19at 03:18; Start 03/14/19 at 02:00 Vancomycin HCl (Vancomycin Trough Level) 1 each 1X ONCE MC ; Start 03/15/19 at 01:30; Stop 03/15/19 at 01:31 Apixaban (Eliquis) 5 mg BID PO Last administered on 03/13/19at 21:31; Start 03/13/19 at 21:00 Gabapentin (Neurontin) 300 mg TID PO Last administered on 03/13/19at 21:31; Start 03/13/19 at 21:00 Oxycodone/ Acetaminophen (Percocet 5/325) 1 tab PRN Q6HRS PRN PO PAIN MILD TO MOD; Start 03/13/19 at 16:45 Oxycodone/ Acetaminophen (Percocet 5/325) 2 tab PRN Q4HRS PRN PO SEVERE PAIN 7- 10; Start 03/13/19 at 16:45 Amlodipine Besylate (Norvasc) 10 mg DAILY PO ; Start 03/14/19 at 09:00 Non-Formulary Medication (Digestive Enzymes Combo No.7 (Superior Digestive Enzyme)) 1 each BID PO ; Start 03/13/19 at 21:00; Stop 03/13/19 at 17:13; Status DC Non-Formulary Medication (Glucosamine Sulfate 2KCL (Glucosamine)) 500 mg BID PO ; Start 03/13/19 at 21:00; Stop 03/13/19 at 17:13; Status DC Non-Formulary Medication (Lecithin, Soy (Lecithin)) 518 mg TID PO ; Start 03/13/19 at 21:00; Status UNV Metoprolol Succinate (Toprol Xl) 50 mg DAILY PO ; Start 03/14/19 at 09:00 Fish Oil (Fish Oil) 1,000 mg DAILY PO ; Start 03/14/19 at 09:00 Atorvastatin Calcium (Lipitor) 40 mg QHS PO Last administered on 03/13/19at 21:30; Start 03/13/19 at 21:00 Sodium Chloride (Normal Saline Flush) 3 ml QSHIFT PRN IV AFTER MEDS AND BLOOD DRAWS; Start 03/13/19 at 16:45 Sodium Chloride 1,000 ml @ 100 mls/hr Q10H IV Last administered on 03/13/19at 22:13; Start 03/13/19 at 16:41 Ondansetron HCl (Zofran) 4 mg PRN Q4HRS PRN IV NAUSEA/VOMITING; Start 03/13/19 at 16:45 Zolpidem Tartrate (Ambien) 5 mg PRN QHS PRN PO INSOMNIA; Start 03/13/19 at 16:45 Acetaminophen (Tylenol) 650 mg PRN Q4HRS PRN PO TEMP OVER 100.4F OR MILD PAIN; Start 03/13/19 at 16:45 Clonidine HCl (Catapres) 0.1 mg PRN Q6HRS PRN PO SBP>160 OR DBP>90; Start 03/13/19 at 16:45 Docusate Sodium (Colace) 100 mg PRN BID PRN PO CONSTIPATION; Start 03/13/19 at 16:45 Albuterol Sulfate (Ventolin Neb Soln) 2.5 mg PRN Q4HRS PRN NEB SHORTNESS OF BREATH; Start 03/13/19 at 16:45 Guaifenesin (Robitussin) 200 mg PRN Q4HRS PRN PO COUGH; Start 03/13/19 at 16:45 Lorazepam (Ativan) 0.5 mg PRN Q4HRS PRN PO ANXIETY / AGITATION; Start 03/13/19 at 16:45 Hydromorphone HCl (Dilaudid) 1 mg PRN Q2HRS PRN IV SEVERE PAIN 7-10; Start 03/13/19 at 16:45 Sodium Chloride 1,000 ml @ 2,340 mls/hr Q26M IV Last administered on 03/13/19at 22:12; Start 03/13/19 at 16:44; Stop 03/13/19 at 17:45; Status DC Sodium Chloride 500 ml @ 1,000 mls/hr PRN Q30MIN PRN IV SEE COMMENTS; Start 03/13/19 at 16:45 Losartan Potassium (Cozaar) 100 mg DAILY PO ; Start 03/14/19 at 09:00 Active Scripts Active Reported Lasix (Furosemide) 40 Mg Tablet 1 Tab PO BID Vancomycin Hcl 125 Mg Capsule 125 Mg PO QODAY Percocet 5-325 Mg Tablet (Oxycodone/Acetaminophen) 1 Each Tablet 1 Tab PO PRN Q6HRS PRN [place]-3 350 mg Cap ([place]-3S/Dha/Epa/Fish Oil) 350 Mg Capsule 350 Mg PO DAILY Lecithin (Lecithin, Soy) 400 Mg Capsule 518 Mg PO TID [place] ([place] Fruit) 450 Mg Capsule 160 Mg PO DAILY Liver Complex Tablet (Milk Thistle/Nac/Dandel/[place]mer) 1 Each Tablet 1 Each PO BID Superior Digestive Enzyme (Digestive Enzymes Combo No.7) 1 Each Capsule 1 Each PO BID Xarelto (Rivaroxaban) 20 Mg Tablet 20 Mg PO DAILY Eliquis (Apixaban) 5 Mg Tablet 5 Mg PO BID Glucosamine (Glucosamine Sulfate 2KCL) 1,000 Mg Tablet 500 Mg PO BID [place] 10-320 Mg Tablet (Amlodipine/Valsartan) 1 Each Tablet 1 Tab PO DAILY Gabapentin (Gabapentin) 300 Mg Capsule 300 Mg PO TID Percocet 5-325 Mg Tablet (Oxycodone/Acetaminophen) 1 Each Tablet 1-2 Tab PO Q4-6HRS Crestor (Rosuvastatin Calcium) 10 Mg Tablet 1 Tab PO DAILY Toprol Xl (Metoprolol Succinate) 50 Mg Tab.er.24h 1 Tab PO DAILY Allergies Allergies: Coded Allergies: No Known Drug Allergies (Unverified , 09/06/17) ROS General: YES: Chills, Fatigue PSYCHOLOGICAL ROS: No: Anxiety, Depression Eyes: No Blurry vision, No Double vision HEENT: No: Heacaches, Sore Throat Hematological and Lymphatic: YES: Bleeding Problems; No: Blood Clots Respiratory: No: Cough, Shortness of breath Cardiovascular: No Chest Pain, No Palpitations Gastrointestinal: No Nausea, No Vomiting Musculoskeletal: Yes Other (atrophy) Skin: Yes Other (see hpi) Physical Exam General: Alert, Oriented X3, Cooperative, No acute distress HEENT: PERRLA, Mucous membr. moist/pink Lungs: Clear to auscultation Heart: Regular rate, Normal S1, Normal S2 Abdomen: Normal bowel sounds, Soft, No tenderness Extremities: Other (atrophy ) Skin: Other (sacral decub wound deep, eschar seen) Neuro: Normal speech Psych/Mental Status: Mental status NL, Mood NL Vitals VITALS Vital Signs Date Time Temp Pulse Resp B/P (MAP) Pulse Ox O2 Delivery O2 Flow Rate FiO2 03/14/19 03:00 99.9 89 16 119/68 (85) 94 99.9 03/13/19 15:00 Room Air Labs Labs Laboratory Tests Test 03/13/19 11:40 03/13/19 14:23 03/13/19 17:00 03/14/19 03:30 White Blood Count 17.5 x10^3/uL (4.0-11.0) 14.3 x10^3/uL (4.0-11.0) Red Blood Count 4.08 x10^6/uL (4.30-5.70) 3.23 x10^6/uL (4.30-5.70) Hemoglobin 11.7 g/dL (13.0-17.5) 9.3 g/dL (13.0-17.5) Hematocrit 34.9 % (39.0-53.0) 27.5 % (39.0-53.0) Mean Corpuscular Volume 86 fL (79-100) 85 fL (79-100) Mean Corpuscular Hemoglobin 29 pg (25-35) 29 pg (25-35) Mean Corpuscular Hemoglobin Concent 33 g/dL (31-37) 34 g/dL (31-37) Red Cell Distribution Width 15.9 % (11.5-14.5) 15.6 % (11.5-14.5) Platelet Count 413 x10^3/uL (140-400) 362 x10^3/uL (140-400) Neutrophils (%) (Auto) 84 % (31-73) 84 % (31-73) Lymphocytes (%) (Auto) 7 % (24-48) 8 % (24-48) Monocytes (%) (Auto) 6 % (0-9) 7 % (0-9) Eosinophils (%) (Auto) 2 % (0-3) 2 % (0-3) Basophils (%) (Auto) 0 % (0-3) 1 % (0-3) Neutrophils # (Auto) 14.7 x10^3/uL (1.8-7.7) 12.0 x10^3/uL (1.8-7.7) Lymphocytes # (Auto) 1.3 x10^3/uL (1.0-4.8) 1.1 x10^3/uL (1.0-4.8) Monocytes # (Auto) 1.1 x10^3/uL (0.0-1.1) 0.9 x10^3/uL (0.0-1.1) Eosinophils # (Auto) 0.4 x10^3/uL (0.0-0.7) 0.2 x10^3/uL (0.0-0.7) Basophils # (Auto) 0.1 x10^3/uL (0.0-0.2) 0.1 x10^3/uL (0.0-0.2) Segmented Neutrophils % 78 % (35-66) Band Neutrophils % 9 % (0-9) Lymphocytes % 6 % (24-48) Monocytes % 5 % (0-10) Eosinophils % 1 % (0-5) Basophils % 1 % (0-3) Platelet Estimate Increased (ADEQUATE) Large Platelets Few Anisocytosis Slight Erythrocyte Sedimentation Rate 118 (0-15) Prothrombin Time 17.6 SEC (11.7-14.0) Prothromb Time International Ratio 1.5 (0.8-1.1) Sodium Level 143 mmol/L (136-145) 142 mmol/L (136-145) Potassium Level 3.9 mmol/L (3.5-5.1) 3.3 mmol/L (3.5-5.1) Chloride Level 105 mmol/L (98-107) 108 mmol/L (98-107) Carbon Dioxide Level 28 mmol/L (21-32) 25 mmol/L (21-32) Anion Gap 10 (6-14) 9 (6-14) Blood Urea Nitrogen 13 mg/dL (8-26) 8 mg/dL (8-26) Creatinine 0.6 mg/dL (0.7-1.3) 0.6 mg/dL (0.7-1.3) Estimated GFR (Cockcroft-Gault) 134.8 134.8 BUN/Creatinine Ratio 22 (6-20) Glucose Level 99 mg/dL (70-99) 103 mg/dL (70-99) Lactic Acid Level 2.2 mmol/L (0.4-2.0) 1.0 mmol/L (0.4-2.0) Calcium Level 9.2 mg/dL (8.5-10.1) 8.0 mg/dL (8.5-10.1) Total Bilirubin 0.4 mg/dL (0.2-1.0) Aspartate Amino Transf (AST/SGOT) 30 U/L (15-37) Alanine Aminotransferase (ALT/SGPT) 34 U/L (16-63) Alkaline Phosphatase 94 U/L (46-116) Total Protein 7.7 g/dL (6.4-8.2) Albumin 2.2 g/dL (3.4-5.0) Albumin/Globulin Ratio 0.4 (1.0-1.7) Procalcitonin 1.22 ng/mL (0.00-0.10) 1.24 ng/mL (0.00-0.10) Urine Collection Type Unknown Urine Color [place] Urine Clarity Cloudy Urine pH 5.5 Urine Specific [place] 1.025 Urine Protein 30 mg/dL (NEG-TRACE) Urine Glucose (UA) Negative mg/dL (NEG) Urine Ketones (Stick) Negative mg/dL (NEG) Urine Blood Moderate (NEG) Urine Nitrite Positive (NEG) Urine Bilirubin Negative (NEG) Urine Urobilinogen Dipstick 1.0 mg/dL (0.2 mg/dL) Urine Leukocyte Esterase Large (NEG) Urine RBC 0 /HPF (0-2) Urine WBC Tntc /HPF (0-4) Urine Bacteria Many /HPF (0-FEW) Urine Mucus Mod /LPF Activated Partial Thromboplast Time 45 SEC (24-38) Fibrinogen 837 mg/dL (200-440) Laboratory Tests Test 03/13/19 11:40 03/13/19 14:23 03/13/19 17:00 03/14/19 03:30 White Blood Count 17.5 x10^3/uL (4.0-11.0) 14.3 x10^3/uL (4.0-11.0) Red Blood Count 4.08 x10^6/uL (4.30-5.70) 3.23 x10^6/uL (4.30-5.70) Hemoglobin 11.7 g/dL (13.0-17.5) 9.3 g/dL (13.0-17.5) Hematocrit 34.9 % (39.0-53.0) 27.5 % (39.0-53.0) Mean Corpuscular Volume 86 fL (79-100) 85 fL (79-100) Mean Corpuscular Hemoglobin 29 pg (25-35) 29 pg (25-35) Mean Corpuscular Hemoglobin Concent 33 g/dL (31-37) 34 g/dL (31-37) Red Cell Distribution Width 15.9 % (11.5-14.5) 15.6 % (11.5-14.5) Platelet Count 413 x10^3/uL (140-400) 362 x10^3/uL (140-400) Neutrophils (%) (Auto) 84 % (31-73) 84 % (31-73) Lymphocytes (%) (Auto) 7 % (24-48) 8 % (24-48) Monocytes (%) (Auto) 6 % (0-9) 7 % (0-9) Eosinophils (%) (Auto) 2 % (0-3) 2 % (0-3) Basophils (%) (Auto) 0 % (0-3) 1 % (0-3) Neutrophils # (Auto) 14.7 x10^3/uL (1.8-7.7) 12.0 x10^3/uL (1.8-7.7) Lymphocytes # (Auto) 1.3 x10^3/uL (1.0-4.8) 1.1 x10^3/uL (1.0-4.8) Monocytes # (Auto) 1.1 x10^3/uL (0.0-1.1) 0.9 x10^3/uL (0.0-1.1) Eosinophils # (Auto) 0.4 x10^3/uL (0.0-0.7) 0.2 x10^3/uL (0.0-0.7) Basophils # (Auto) 0.1 x10^3/uL (0.0-0.2) 0.1 x10^3/uL (0.0-0.2) Segmented Neutrophils % 78 % (35-66) Band Neutrophils % 9 % (0-9) Lymphocytes % 6 % (24-48) Monocytes % 5 % (0-10) Eosinophils % 1 % (0-5) Basophils % 1 % (0-3) Platelet Estimate Increased (ADEQUATE) Large Platelets Few Anisocytosis Slight Erythrocyte Sedimentation Rate 118 (0-15) Prothrombin Time 17.6 SEC (11.7-14.0) Prothromb Time International Ratio 1.5 (0.8-1.1) Sodium Level 143 mmol/L (136-145) 142 mmol/L (136-145) Potassium Level 3.9 mmol/L (3.5-5.1) 3.3 mmol/L (3.5-5.1) Chloride Level 105 mmol/L (98-107) 108 mmol/L (98-107) Carbon Dioxide Level 28 mmol/L (21-32) 25 mmol/L (21-32) Anion Gap 10 (6-14) 9 (6-14) Blood Urea Nitrogen 13 mg/dL (8-26) 8 mg/dL (8-26) Creatinine 0.6 mg/dL (0.7-1.3) 0.6 mg/dL (0.7-1.3) Estimated GFR (Cockcroft-Gault) 134.8 134.8 BUN/Creatinine Ratio 22 (6-20) Glucose Level 99 mg/dL (70-99) 103 mg/dL (70-99) Lactic Acid Level 2.2 mmol/L (0.4-2.0) 1.0 mmol/L (0.4-2.0) Calcium Level 9.2 mg/dL (8.5-10.1) 8.0 mg/dL (8.5-10.1) Total Bilirubin 0.4 mg/dL (0.2-1.0) Aspartate Amino Transf (AST/SGOT) 30 U/L (15-37) Alanine Aminotransferase (ALT/SGPT) 34 U/L (16-63) Alkaline Phosphatase 94 U/L (46-116) Total Protein 7.7 g/dL (6.4-8.2) Albumin 2.2 g/dL (3.4-5.0) Albumin/Globulin Ratio 0.4 (1.0-1.7) Procalcitonin 1.22 ng/mL (0.00-0.10) 1.24 ng/mL (0.00-0.10) Urine Collection Type Unknown Urine Color [place] Urine Clarity Cloudy Urine pH 5.5 Urine Specific [place] 1.025 Urine Protein 30 mg/dL (NEG-TRACE) Urine Glucose (UA) Negative mg/dL (NEG) Urine Ketones (Stick) Negative mg/dL (NEG) Urine Blood Moderate (NEG) Urine Nitrite Positive (NEG) Urine Bilirubin Negative (NEG) Urine Urobilinogen Dipstick 1.0 mg/dL (0.2 mg/dL) Urine Leukocyte Esterase Large (NEG) Urine RBC 0 /HPF (0-2) Urine WBC Tntc /HPF (0-4) Urine Bacteria Many /HPF (0-FEW) Urine Mucus Mod /LPF Activated Partial Thromboplast Time 45 SEC (24-38) Fibrinogen 837 mg/dL (200-440) Assessment/Plan Assessment/Plan scaral wounds, heel wounds will review with Dr Shay, likely require debridement continue wound care, abx RYLIE SHAY MD 03/14/19 0858: CONSULT Assessment/Plan Assessment/Plan Patient seen and examined by me states feeling that her then he did yesterday. Denies any nausea vomiting fevers or chills currently. Wound examined left sacral open wound with eschar minimal blood-tinged drainage area agree with Neli assessment and plan we'll plan for debridement patient is eaten breakfast this morning and has a scheduled MRI this afternoon we'll plan for debridement SundayMarch 17. SUSY ISAAC APRN Mar 14, 2019 08:12 RYLIE SHAY MD Mar 14, 2019 08:58
--- NOTE | 2019-03-14 09:12 | CONS ---
DATE OF CONSULTATION: 03/13/2019 REQUESTING PHYSICIAN: Dr. Mejia. REASON FOR CONSULTATION: Possible sepsis. HISTORY OF PRESENT ILLNESS: The patient is a 64-year-old male with paraplegia and multiple pressure wounds, who [facility] and debridement of wounds. He has a history of T9-T10 transverse myelitis diagnosed earlier this year. He is followed by Dr. Vincent, neurologist at [facility]. An MRI in December showed progression of inflammation. He was treated with high-dose steroids from 01/17 through 02/12 per his . Over the last 2 months or so, he has had off and on chills/shakes and over the past 2 weeks, fevers, ranging from 101-106 degrees. He was treated at home with Tylenol and cool washcloths. He was seen by his primary care provider, Dr. Artis on 03/11. Antibiotics were held until blood work including blood cultures resulted. He complains of fatigue, no energy, loss of appetite as well as cough with phlegm production. He performs self-catheterizations every 6 hours using a new catheter each time. His urine color has been a little darker lately, but no noticeable odor. He has a history of urinary tract infection a few months ago with E. coli pansensitive as well as history of recurrent Clostridium difficile infection (07/2018 and 11/2018). He is currently on a taper of oral vancomycin, now down to every other day dosing. He denies headache, sinus congestion, sore throat. Denies shortness of air or chest discomfort. Denies nausea, vomiting or diarrhea. Denies rashes or itching. He lives at home. He was recently hospitalized for a pulmonary embolus and is now on anticoagulation therapy. He denies exposure to ill contacts. He traveled to [place], [place] a couple of weeks ago to visit his father in the [place] [facility]. He has been advised by his neurologist to forego flu vaccinations. PAST MEDICAL HISTORY: T9-T10 transverse myelitis, status post steroids and plasmapheresis, cauda equine syndrome in 06/2018, urinary retention with self-catheterizations, history of E. coli pansensitive UTI, recurrent Clostridium difficile associated diarrhea in 07/2018 and 11/2018, DJD, hypertension, hyperlipidemia, pulmonary embolus, on anticoagulation therapy, nonocclusive thrombus, right posterior tibial and peroneal vein. PAST SURGICAL HISTORY: Lumbar decompression L3-L5, bilateral hip replacements, bilateral knee replacements. FAMILY HISTORY: Noncontributory. SOCIAL HISTORY: The patient is and lives at home. 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 He has traveled to [place], [place] and [place] in the early . No pets. He gets around in a power chair. ALLERGIES: KEFLEX CAUSING RASH AND DECREASED URINE OUTPUT. He has tolerated cefepime and amoxicillin in the past. MEDICATIONS: Oral vancomycin. Recent high-dose steroids outpatient. Other medications are available and have been reviewed on the AUG. REVIEW OF SYSTEMS: Per HPI, otherwise all other review of systems are negative. PHYSICAL EXAMINATION: VITAL SIGNS: Temperature 97.5, blood pressure 137/77, heart rate 91, respiratory rate 18, pulse oximetry is 95% on room air. GENERAL: The patient is propped up in bed, alert and shivering. HEENT: Pupils equally round, reactive. Normal conjunctivae. Oropharynx pink and moist. No lesions seen. NECK: Supple. LUNGS: Clear to auscultation. HEART: S1, S2. ABDOMEN: Obese, soft, nontender with bowel sounds present. EXTREMITIES: No gross edema or cyanosis. SKIN: Warm to touch without signs of rash. He has multiple pressure wounds involving sacrococcygeal, left ischial and bilateral heels with necrotic tissue, foul odor with undetermined yet. NEUROLOGIC: Alert and oriented x 3. He is paraplegic without sensation or movement in the lower extremities. LABORATORY DATA: WBC 17.5, hemoglobin 11.7, platelets 413,000. Sodium 143, potassium 3.9, creatinine 0.6, BUN 13, glucose 99, total bilirubin 0.4, AST 30, ALT 34, albumin 2.2. Blood cultures have been ordered. IMPRESSION: 1. Fever and chills. 2. Leukocytosis. 3. Multiple nonhealing pressure wounds involving sacrococcygeal, left ischium and bilateral heels with necrotic tissue and malodor. 4. History of recurrent Clostridium difficile diarrhea, currently on a taper. 5. KEFLEX ALLERGY causing rash and decreased urine output. He has tolerated cefepime and amoxicillin in the past. 6. Neurogenic bladder requiring self-catheterizations. 7. Paraplegia with history of transverse myelitis. He is followed by his neurologist, Dr. Vincent at [facility] and completed a recent course of high-dose steroids on 02/12. 8. History of pulmonary embolism. PLAN: We will follow up on blood cultures that were apparently done at Dr. Artis' office on the . Repeat blood cultures here, check a urinalysis with culture and sensitivity, procalcitonin level, lactic acid and sed rate. We will initiate vancomycin and Zosyn as well as micafungin given recent high-dose steroid use. We will increase the oral vancomycin to twice a day. Consult Dr. Brand, General Surgery for debridement of wounds. Wound care team has been consulted. Records from were reviewed. Thank you, Dr. Mejia for asking us to participate in this patient's care. Should you have further questions or concerns, please call. The patient seen and examined and plan of care implemented by Dr. Fabian Guzman. AFBIAN GUZMAN MD DR: DARRYL/sen JOB#: [id number] / [id number]
--- NOTE | 2019-03-14 09:16 | NUR ---
IP: Pt has had and been treated for C.diff since 07/2018 with most recent on 11/12/18. Pt continues to have diarrhea and is on a long taper regimen. Pt to be on contact plus precautions using brown sign.
[2019-03-14] MEDS: VANCOMYCIN 125 MG/2.5 ML ORAL SOLUTION. PO SCH ×2 (09:27→21:27)
[2019-03-14] MEDS: OMEGA-3 FATTY ACIDS/FISH OIL 1,000 MG CAPSULE. PO SCH (09:27)
[2019-03-14] MEDS: METOPROLOL SUCC 24HR ER 50 MG TAB.ER.24H. PO SCH (09:27)
[2019-03-14] MEDS: GABAPENTIN 300 MG CAPSULE. PO SCH ×3 (09:28→21:27)
[2019-03-14] MEDS: amLODIPine BESYLATE 10 MG TABLET PO SCH (09:28)
[2019-03-14] MEDS: LOSARTAN POTASSIUM 50 MG TABLET. PO SCH (09:28)
[2019-03-14] MEDS: APIXABAN 5 MG TABLET. PO SCH ×2 (09:28→21:27)
[2019-03-14] MEDS ORDERED: POTASSIUM CHLORIDE 20 MEQ TABLET.ER. PO ONE (09:30)
--- NOTE | 2019-03-14 09:40 | PDOC ---
PROGRESS NOTES Chief Complaint Chief Complaint A/P: Multiple nonhealing pressure wounds involving sacrococcygeal, left ischium and bilateral heels with necrotic tissue and malodor Sepsis - likely 2/2 coccygeal wound History of recurrent Clostridium difficile diarrhea, Neurogenic bladder requiring self-catheterizations Transverse myelitis with subsequent paraplegia - on high dose steroids on 02/12 - 12/27 MRI L/S C/W Progression in both signal intensity and superior extent of diffusely History of pulmonary embolism. mod-severe protein calorie malnutrition MORBID OBESITY Anemia - likely of chronic inflammation Hypokalemia Lactic acidosis 32 MIN PT EXAM, CHART REVIEW, > 50% OF TIME SPENT WITH EXAM, CHART REVIEW, PT CARE COORDINATION History of Present Illness History of Present Illness Mr Rust is a 64-year-old male with PMHx recent PE, transverse myelitis with paraplegia, neurogenic bladder, and multiple pressure wounds, who [facility] for possible sepsis and debridement of wounds. Over the last 2 months or so, he has had off and on chills/shakes and over the past 2 weeks, fevers, ranging from 101-106 degrees. He was just treated with high dose steroids outpatient for progression of his transverse myelitis and has been seen by his PCP, Dr. Artis on 03/11, had blood cultures taken and was seen in wound clinic on 03/13 and directly admitted to [facility]. He also has recurrent Clostridium difficile infection (07/2018 and 11/2018) still on a taper of oral vancomycin and h/o e. coli UTI (self-caths up to 6 times daily). Overnight with fever 100.6F. Plans to go to OR for further backside debride, however, I did let him eat. He has an MRI scheduled this morning of hips, pelvis, lumbar with contrast. He is anxious about the 3 hour procedure. Today he is pain free, does have occasional chills, denies CP and SOB. Vitals Vitals Vital Signs Date Time Temp Pulse Resp B/P (MAP) Pulse Ox O2 Delivery O2 Flow Rate FiO2 03/14/19 09:28 91 108/66 03/14/19 07:00 98.4 16 94 Room Air 98.4 Physical Exam General: Alert, Oriented X3, Cooperative, No acute distress Heart: Regular rate, Normal S1, Normal S2 Lungs: Clear Abdomen: Normal bowel sounds, Soft, No tenderness Extremities: Other (atrophy ) Skin: Other (sacral decub wound deep, eschar seen) Labs LABS Laboratory Tests Test 03/13/19 11:40 03/13/19 14:23 03/13/19 17:00 03/14/19 03:30 White Blood Count 17.5 x10^3/uL (4.0-11.0) 14.3 x10^3/uL (4.0-11.0) Red Blood Count 4.08 x10^6/uL (4.30-5.70) 3.23 x10^6/uL (4.30-5.70) Hemoglobin 11.7 g/dL (13.0-17.5) 9.3 g/dL (13.0-17.5) Hematocrit 34.9 % (39.0-53.0) 27.5 % (39.0-53.0) Mean Corpuscular Volume 86 fL (79-100) 85 fL (79-100) Mean Corpuscular Hemoglobin 29 pg (25-35) 29 pg (25-35) Mean Corpuscular Hemoglobin Concent 33 g/dL (31-37) 34 g/dL (31-37) Red Cell Distribution Width 15.9 % (11.5-14.5) 15.6 % (11.5-14.5) Platelet Count 413 x10^3/uL (140-400) 362 x10^3/uL (140-400) Neutrophils (%) (Auto) 84 % (31-73) 84 % (31-73) Lymphocytes (%) (Auto) 7 % (24-48) 8 % (24-48) Monocytes (%) (Auto) 6 % (0-9) 7 % (0-9) Eosinophils (%) (Auto) 2 % (0-3) 2 % (0-3) Basophils (%) (Auto) 0 % (0-3) 1 % (0-3) Neutrophils # (Auto) 14.7 x10^3/uL (1.8-7.7) 12.0 x10^3/uL (1.8-7.7) Lymphocytes # (Auto) 1.3 x10^3/uL (1.0-4.8) 1.1 x10^3/uL (1.0-4.8) Monocytes # (Auto) 1.1 x10^3/uL (0.0-1.1) 0.9 x10^3/uL (0.0-1.1) Eosinophils # (Auto) 0.4 x10^3/uL (0.0-0.7) 0.2 x10^3/uL (0.0-0.7) Basophils # (Auto) 0.1 x10^3/uL (0.0-0.2) 0.1 x10^3/uL (0.0-0.2) Segmented Neutrophils % 78 % (35-66) Band Neutrophils % 9 % (0-9) Lymphocytes % 6 % (24-48) Monocytes % 5 % (0-10) Eosinophils % 1 % (0-5) Basophils % 1 % (0-3) Platelet Estimate Increased (ADEQUATE) Large Platelets Few Anisocytosis Slight Erythrocyte Sedimentation Rate 118 (0-15) Prothrombin Time 17.6 SEC (11.7-14.0) Prothromb Time International Ratio 1.5 (0.8-1.1) Sodium Level 143 mmol/L (136-145) 142 mmol/L (136-145) Potassium Level 3.9 mmol/L (3.5-5.1) 3.3 mmol/L (3.5-5.1) Chloride Level 105 mmol/L (98-107) 108 mmol/L (98-107) Carbon Dioxide Level 28 mmol/L (21-32) 25 mmol/L (21-32) Anion Gap 10 (6-14) 9 (6-14) Blood Urea Nitrogen 13 mg/dL (8-26) 8 mg/dL (8-26) Creatinine 0.6 mg/dL (0.7-1.3) 0.6 mg/dL (0.7-1.3) Estimated GFR (Cockcroft-Gault) 134.8 134.8 BUN/Creatinine Ratio 22 (6-20) Glucose Level 99 mg/dL (70-99) 103 mg/dL (70-99) Lactic Acid Level 2.2 mmol/L (0.4-2.0) 1.0 mmol/L (0.4-2.0) Calcium Level 9.2 mg/dL (8.5-10.1) 8.0 mg/dL (8.5-10.1) Total Bilirubin 0.4 mg/dL (0.2-1.0) Aspartate Amino Transf (AST/SGOT) 30 U/L (15-37) Alanine Aminotransferase (ALT/SGPT) 34 U/L (16-63) Alkaline Phosphatase 94 U/L (46-116) Total Protein 7.7 g/dL (6.4-8.2) Albumin 2.2 g/dL (3.4-5.0) Albumin/Globulin Ratio 0.4 (1.0-1.7) Procalcitonin 1.22 ng/mL (0.00-0.10) 1.24 ng/mL (0.00-0.10) Urine Collection Type Unknown Urine Color Yuni Urine Clarity Cloudy Urine pH 5.5 Urine Specific [place] 1.025 Urine Protein 30 mg/dL (NEG-TRACE) Urine Glucose (UA) Negative mg/dL (NEG) Urine Ketones (Stick) Negative mg/dL (NEG) Urine Blood Moderate (NEG) Urine Nitrite Positive (NEG) Urine Bilirubin Negative (NEG) Urine Urobilinogen Dipstick 1.0 mg/dL (0.2 mg/dL) Urine Leukocyte Esterase Large (NEG) Urine RBC 0 /HPF (0-2) Urine WBC Tntc /HPF (0-4) Urine Bacteria Many /HPF (0-FEW) Urine Mucus Mod /LPF Activated Partial Thromboplast Time 45 SEC (24-38) Fibrinogen 837 mg/dL (200-440) Comment Review of Relevant I have reviewed the following items franc (where applicable) has been applied. Labs Laboratory Tests Test 03/13/19 11:40 03/13/19 14:23 03/13/19 17:00 03/14/19 03:30 White Blood Count 17.5 x10^3/uL (4.0-11.0) 14.3 x10^3/uL (4.0-11.0) Red Blood Count 4.08 x10^6/uL (4.30-5.70) 3.23 x10^6/uL (4.30-5.70) Hemoglobin 11.7 g/dL (13.0-17.5) 9.3 g/dL (13.0-17.5) Hematocrit 34.9 % (39.0-53.0) 27.5 % (39.0-53.0) Mean Corpuscular Volume 86 fL (79-100) 85 fL (79-100) Mean Corpuscular Hemoglobin 29 pg (25-35) 29 pg (25-35) Mean Corpuscular Hemoglobin Concent 33 g/dL (31-37) 34 g/dL (31-37) Red Cell Distribution Width 15.9 % (11.5-14.5) 15.6 % (11.5-14.5) Platelet Count 413 x10^3/uL (140-400) 362 x10^3/uL (140-400) Neutrophils (%) (Auto) 84 % (31-73) 84 % (31-73) Lymphocytes (%) (Auto) 7 % (24-48) 8 % (24-48) Monocytes (%) (Auto) 6 % (0-9) 7 % (0-9) Eosinophils (%) (Auto) 2 % (0-3) 2 % (0-3) Basophils (%) (Auto) 0 % (0-3) 1 % (0-3) Neutrophils # (Auto) 14.7 x10^3/uL (1.8-7.7) 12.0 x10^3/uL (1.8-7.7) Lymphocytes # (Auto) 1.3 x10^3/uL (1.0-4.8) 1.1 x10^3/uL (1.0-4.8) Monocytes # (Auto) 1.1 x10^3/uL (0.0-1.1) 0.9 x10^3/uL (0.0-1.1) Eosinophils # (Auto) 0.4 x10^3/uL (0.0-0.7) 0.2 x10^3/uL (0.0-0.7) Basophils # (Auto) 0.1 x10^3/uL (0.0-0.2) 0.1 x10^3/uL (0.0-0.2) Segmented Neutrophils % 78 % (35-66) Band Neutrophils % 9 % (0-9) Lymphocytes % 6 % (24-48) Monocytes % 5 % (0-10) Eosinophils % 1 % (0-5) Basophils % 1 % (0-3) Platelet Estimate Increased (ADEQUATE) Large Platelets Few Anisocytosis Slight Erythrocyte Sedimentation Rate 118 (0-15) Prothrombin Time 17.6 SEC (11.7-14.0) Prothromb Time International Ratio 1.5 (0.8-1.1) Sodium Level 143 mmol/L (136-145) 142 mmol/L (136-145) Potassium Level 3.9 mmol/L (3.5-5.1) 3.3 mmol/L (3.5-5.1) Chloride Level 105 mmol/L (98-107) 108 mmol/L (98-107) Carbon Dioxide Level 28 mmol/L (21-32) 25 mmol/L (21-32) Anion Gap 10 (6-14) 9 (6-14) Blood Urea Nitrogen 13 mg/dL (8-26) 8 mg/dL (8-26) Creatinine 0.6 mg/dL (0.7-1.3) 0.6 mg/dL (0.7-1.3) Estimated GFR (Cockcroft-Gault) 134.8 134.8 BUN/Creatinine Ratio 22 (6-20) Glucose Level 99 mg/dL (70-99) 103 mg/dL (70-99) Lactic Acid Level 2.2 mmol/L (0.4-2.0) 1.0 mmol/L (0.4-2.0) Calcium Level 9.2 mg/dL (8.5-10.1) 8.0 mg/dL (8.5-10.1) Total Bilirubin 0.4 mg/dL (0.2-1.0) Aspartate Amino Transf (AST/SGOT) 30 U/L (15-37) Alanine Aminotransferase (ALT/SGPT) 34 U/L (16-63) Alkaline Phosphatase 94 U/L (46-116) Total Protein 7.7 g/dL (6.4-8.2) Albumin 2.2 g/dL (3.4-5.0) Albumin/Globulin Ratio 0.4 (1.0-1.7) Procalcitonin 1.22 ng/mL (0.00-0.10) 1.24 ng/mL (0.00-0.10) Urine Collection Type Unknown Urine Color [place]uni Urine Clarity Cloudy Urine pH 5.5 Urine Specific [place] 1.025 Urine Protein 30 mg/dL (NEG-TRACE) Urine Glucose (UA) Negative mg/dL (NEG) Urine Ketones (Stick) Negative mg/dL (NEG) Urine Blood Moderate (NEG) Urine Nitrite Positive (NEG) Urine Bilirubin Negative (NEG) Urine Urobilinogen Dipstick 1.0 mg/dL (0.2 mg/dL) Urine Leukocyte Esterase Large (NEG) Urine RBC 0 /HPF (0-2) Urine WBC Tntc /HPF (0-4) Urine Bacteria Many /HPF (0-FEW) Urine Mucus Mod /LPF Activated Partial Thromboplast Time 45 SEC (24-38) Fibrinogen 837 mg/dL (200-440) Laboratory Tests Test 03/13/19 11:40 03/13/19 14:23 03/13/19 17:00 03/14/19 03:30 White Blood Count 17.5 x10^3/uL (4.0-11.0) 14.3 x10^3/uL (4.0-11.0) Red Blood Count 4.08 x10^6/uL (4.30-5.70) 3.23 x10^6/uL (4.30-5.70) Hemoglobin 11.7 g/dL (13.0-17.5) 9.3 g/dL (13.0-17.5) Hematocrit 34.9 % (39.0-53.0) 27.5 % (39.0-53.0) Mean Corpuscular Volume 86 fL (79-100) 85 fL (79-100) Mean Corpuscular Hemoglobin 29 pg (25-35) 29 pg (25-35) Mean Corpuscular Hemoglobin Concent 33 g/dL (31-37) 34 g/dL (31-37) Red Cell Distribution Width 15.9 % (11.5-14.5) 15.6 % (11.5-14.5) Platelet Count 413 x10^3/uL (140-400) 362 x10^3/uL (140-400) Neutrophils (%) (Auto) 84 % (31-73) 84 % (31-73) Lymphocytes (%) (Auto) 7 % (24-48) 8 % (24-48) Monocytes (%) (Auto) 6 % (0-9) 7 % (0-9) Eosinophils (%) (Auto) 2 % (0-3) 2 % (0-3) Basophils (%) (Auto) 0 % (0-3) 1 % (0-3) Neutrophils # (Auto) 14.7 x10^3/uL (1.8-7.7) 12.0 x10^3/uL (1.8-7.7) Lymphocytes # (Auto) 1.3 x10^3/uL (1.0-4.8) 1.1 x10^3/uL (1.0-4.8) Monocytes # (Auto) 1.1 x10^3/uL (0.0-1.1) 0.9 x10^3/uL (0.0-1.1) Eosinophils # (Auto) 0.4 x10^3/uL (0.0-0.7) 0.2 x10^3/uL (0.0-0.7) Basophils # (Auto) 0.1 x10^3/uL (0.0-0.2) 0.1 x10^3/uL (0.0-0.2) Segmented Neutrophils % 78 % (35-66) Band Neutrophils % 9 % (0-9) Lymphocytes % 6 % (24-48) Monocytes % 5 % (0-10) Eosinophils % 1 % (0-5) Basophils % 1 % (0-3) Platelet Estimate Increased (ADEQUATE) Large Platelets Few Anisocytosis Slight Erythrocyte Sedimentation Rate 118 (0-15) Prothrombin Time 17.6 SEC (11.7-14.0) Prothromb Time International Ratio 1.5 (0.8-1.1) Sodium Level 143 mmol/L (136-145) 142 mmol/L (136-145) Potassium Level 3.9 mmol/L (3.5-5.1) 3.3 mmol/L (3.5-5.1) Chloride Level 105 mmol/L (98-107) 108 mmol/L (98-107) Carbon Dioxide Level 28 mmol/L (21-32) 25 mmol/L (21-32) Anion Gap 10 (6-14) 9 (6-14) Blood Urea Nitrogen 13 mg/dL (8-26) 8 mg/dL (8-26) Creatinine 0.6 mg/dL (0.7-1.3) 0.6 mg/dL (0.7-1.3) Estimated GFR (Cockcroft-Gault) 134.8 134.8 BUN/Creatinine Ratio 22 (6-20) Glucose Level 99 mg/dL (70-99) 103 mg/dL (70-99) Lactic Acid Level 2.2 mmol/L (0.4-2.0) 1.0 mmol/L (0.4-2.0) Calcium Level 9.2 mg/dL (8.5-10.1) 8.0 mg/dL (8.5-10.1) Total Bilirubin 0.4 mg/dL (0.2-1.0) Aspartate Amino Transf (AST/SGOT) 30 U/L (15-37) Alanine Aminotransferase (ALT/SGPT) 34 U/L (16-63) Alkaline Phosphatase 94 U/L (46-116) Total Protein 7.7 g/dL (6.4-8.2) Albumin 2.2 g/dL (3.4-5.0) Albumin/Globulin Ratio 0.4 (1.0-1.7) Procalcitonin 1.22 ng/mL (0.00-0.10) 1.24 ng/mL (0.00-0.10) Urine Collection Type Unknown Urine Color [place] Urine Clarity Cloudy Urine pH 5.5 Urine Specific [place] 1.025 Urine Protein 30 mg/dL (NEG-TRACE) Urine Glucose (UA) Negative mg/dL (NEG) Urine Ketones (Stick) Negative mg/dL (NEG) Urine Blood Moderate (NEG) Urine Nitrite Positive (NEG) Urine Bilirubin Negative (NEG) Urine Urobilinogen Dipstick 1.0 mg/dL (0.2 mg/dL) Urine Leukocyte Esterase Large (NEG) Urine RBC 0 /HPF (0-2) Urine WBC Tntc /HPF (0-4) Urine Bacteria Many /HPF (0-FEW) Urine Mucus Mod /LPF Activated Partial Thromboplast Time 45 SEC (24-38) Fibrinogen 837 mg/dL (200-440) Medications Current Medications Sodium Chloride 1,000 ml @ 80 mls/hr [id number] IV Last administered on 03/13/19at 13:45; Start 03/13/19 at 13:45; Stop 03/13/19 at 17:48; Status DC Vancomycin HCl (Vanco Per Pharmacy) 1 each PRN DAILY PRN MC SEE COMMENTS Last administered on 03/13/19 17:47; Start 03/13/19 at 13:30 Piperacillin Sod/ Tazobactam Sod 3.375 gm/Sodium Chloride 50 ml @ 100 mls/hr Q6HRS IV Last administered on 03/14/19 06:08; Start 03/13/19 at 14:00 Vancomycin HCl 2 gm/Sodium Chloride 500 ml @ 250 mls/hr 1X ONCE IV Last administered on 03/13/19at 14:20; Start 03/13/19 at 15:00; Stop 03/13/19 at 16:59; Status DC Micafungin Sodium 100 mg/Dextrose 100 ml @ 100 mls/hr Q24H IV Last administered on 03/13/19 17:35; Start 03/13/19 at 16:00 Vancomycin HCl (Vancomycin Oral Solution) 125 mg BID PO Last administered on 03/14/19 09:27; Start 03/13/19 at 16:00 Acetaminophen (Tylenol) 650 mg PRN Q6HRS PRN PO FEVER Last administered on 03/13/19 16:26; Start 03/13/19 at 16:15; Stop 03/13/19 at 17:48; Status DC Vancomycin HCl 1.75 gm/Sodium Chloride 500 ml @ 250 mls/hr Q12H IV Last administered on 03/14/19 03:18; Start 03/14/19 at 02:00 Vancomycin HCl (Vancomycin Trough Level) 1 each 1X ONCE MC ; Start 03/15/19 at 01:30; Stop 03/15/19 at 01:31 Apixaban (Eliquis) 5 mg BID PO Last administered on 03/14/19 09:28; Start 03/13/19 at 21:00 Gabapentin (Neurontin) 300 mg TID PO Last administered on 03/14/19 09:28; Start 03/13/19 at 21:00 Oxycodone/ Acetaminophen (Percocet 5/325) 1 tab PRN Q6HRS PRN PO PAIN MILD TO MOD; Start 03/13/19 at 16:45 Oxycodone/ Acetaminophen (Percocet 5/325) 2 tab PRN Q4HRS PRN PO SEVERE PAIN 7- 10; Start 03/13/19 at 16:45 Amlodipine Besylate (Norvasc) 10 mg DAILY PO Last administered on 03/14/19at 09:28; Start 03/14/19 at 09:00 Non-Formulary Medication (Digestive Enzymes Combo No.7 (Superior Digestive Enzyme)) 1 each BID PO ; Start 03/13/19 at 21:00; Stop 03/13/19 at 17:13; Status DC Non-Formulary Medication (Glucosamine Sulfate 2KCL (Glucosamine)) 500 mg BID PO ; Start 03/13/19 at 21:00; Stop 03/13/19 at 17:13; Status DC Non-Formulary Medication (Lecithin, Soy (Lecithin)) 518 mg TID PO ; Start 03/13/19 at 21:00; Status UNV Metoprolol Succinate (Toprol Xl) 50 mg DAILY PO Last administered on 03/14/19at 09:27; Start 03/14/19 at 09:00 Fish Oil (Fish Oil) 1,000 mg DAILY PO Last administered on 03/14/19at 09:27; Start 03/14/19 at 09:00 Atorvastatin Calcium (Lipitor) 40 mg QHS PO Last administered on 03/13/19at 21:30; Start 03/13/19 at 21:00 Sodium Chloride (Normal Saline Flush) 3 ml QSHIFT PRN IV AFTER MEDS AND BLOOD DRAWS; Start 03/13/19 at 16:45 Sodium Chloride 1,000 ml @ 100 mls/hr Q10H IV Last administered on 03/13/19at 22:13; Start 03/13/19 at 16:41 Ondansetron HCl (Zofran) 4 mg PRN Q4HRS PRN IV NAUSEA/VOMITING; Start 03/13/19 at 16:45 Zolpidem Tartrate (Ambien) 5 mg PRN QHS PRN PO INSOMNIA; Start 03/13/19 at 16:45 Acetaminophen (Tylenol) 650 mg PRN Q4HRS PRN PO TEMP OVER 100.4F OR MILD PAIN; Start 03/13/19 at 16:45 Clonidine HCl (Catapres) 0.1 mg PRN Q6HRS PRN PO SBP>160 OR DBP>90; Start 03/13/19 at 16:45 Docusate Sodium (Colace) 100 mg PRN BID PRN PO CONSTIPATION; Start 03/13/19 at 16:45 Albuterol Sulfate (Ventolin Neb Soln) 2.5 mg PRN Q4HRS PRN NEB SHORTNESS OF BREATH; Start 03/13/19 at 16:45 Guaifenesin (Robitussin) 200 mg PRN Q4HRS PRN PO COUGH; Start 03/13/19 at 16:45 Lorazepam (Ativan) 0.5 mg PRN Q4HRS PRN PO ANXIETY / AGITATION; Start 03/13/19 at 16:45 Hydromorphone HCl (Dilaudid) 1 mg PRN Q2HRS PRN IV SEVERE PAIN 7-10; Start 03/13/19 at 16:45 Sodium Chloride 1,000 ml @ 2,340 mls/hr Q26M IV Last administered on 03/13/19at 22:12; Start 03/13/19 at 16:44; Stop 03/13/19 at 17:45; Status DC Sodium Chloride 500 ml @ 1,000 mls/hr PRN Q30MIN PRN IV SEE COMMENTS; Start 03/13/19 at 16:45 Losartan Potassium (Cozaar) 100 mg DAILY PO Last administered on 03/14/19at 09:28; Start 03/14/19 at 09:00 Potassium Chloride (Klor-Con) 40 meq 1X ONCE PO Last administered on 03/14/19at 09:27; Start 03/14/19 at 09:30; Stop 03/14/19 at 09:31; Status DC Active Scripts Active Reported Lasix (Furosemide) 40 Mg Tablet 1 Tab PO BID Vancomycin Hcl 125 Mg Capsule 125 Mg PO QODAY Percocet 5-325 Mg Tablet (Oxycodone/Acetaminophen) 1 Each Tablet 1 Tab PO PRN Q6HRS PRN [place] Blue [place]-3 350 mg Cap ([place]-3S/Dha/Epa/Fish Oil) 350 Mg Capsule 350 Mg PO DAILY Lecithin (Lecithin, Soy) 400 Mg Capsule 518 Mg PO TID [place] (S[place] Fruit) 450 Mg Capsule 160 Mg PO DAILY Liver Complex Tablet (Milk Thistle/Nac/Dandel/Turmer) 1 Each Tablet 1 Each PO BID Superior Digestive Enzyme (Digestive Enzymes Combo No.7) 1 Each Capsule 1 Each PO BID Xarelto (Rivaroxaban) 20 Mg Tablet 20 Mg PO DAILY Eliquis (Apixaban) 5 Mg Tablet 5 Mg PO BID Glucosamine (Glucosamine Sulfate 2KCL) 1,000 Mg Tablet 500 Mg PO BID [place] 10-320 Mg Tablet (Amlodipine/Valsartan) 1 Each Tablet 1 Tab PO DAILY Gabapentin (Gabapentin) 300 Mg Capsule 300 Mg PO TID Percocet 5-325 Mg Tablet (Oxycodone/Acetaminophen) 1 Each Tablet 1-2 Tab PO Q4-6HRS Crestor (Rosuvastatin Calcium) 10 Mg Tablet 1 Tab PO DAILY Toprol Xl (Metoprolol Succinate) 50 Mg Tab.er.24h 1 Tab PO DAILY Vitals/I & O Vital Sign - Last 24 Hours 03/13/19 03/13/19 03/13/19 03/13/19 11:00 15:00 19:00 23:00 Temp 97.5 100.1 98.8 100.6 97.5 100.1 98.8 100.6 Pulse 91 110 91 108 Resp 18 18 18 16 B/P (MAP) 137/77 (97) 137/76 (96) 107/66 (80) 125/74 (91) Pulse Ox 95 94 95 94 O2 Delivery Room Air Room Air 03/14/19 03/14/19 03/14/19 03/14/19 03:00 07:00 09:27 09:28 Temp 99.9 98.4 99.9 98.4 Pulse 89 91 91 91 Resp 16 16 B/P (MAP) 119/68 (85) 108/66 (80) 108/66 108/66 Pulse Ox 94 94 O2 Delivery Room Air 03/14/19 09:28 Pulse 91 B/P (MAP) 108/66 Intake and Output 03/13/19 03/13/19 03/14/19 15:00 23:00 07:00 Intake Total 80 ml 2950 ml 550 ml Output Total 1300 ml Balance 80 ml 2950 ml -750 ml MANDY COOMBS MD Mar 14, 2019 09:40
[2019-03-14] MEDS: ANTI-COAG MONITOR BY PHARMACY. MC PRN (11:12)
--- NOTE | 2019-03-14 11:32 | PDOC ---
Infectious Disease Note Subjective Subjective Low-grade fevers Tmax 100.6 Feeling better No further chills/shakes or body aches ROS ROS per HPI Vital Sign Vital Signs Vital Signs Date Time Temp Pulse Resp B/P (MAP) Pulse Ox O2 Delivery O2 Flow Rate FiO2 03/14/19 09:28 91 108/66 03/14/19 07:00 98.4 16 94 Room Air 98.4 Physical Exam PHYSICAL EXAM GENERAL: Propped up in bed, alert, smiling, relaxed HEENT: Pupils equally round, reactive. Normal conjunctivae. Oropharynx pink and moist. No lesions seen. NECK: Supple. LUNGS: Clear to auscultation. HEART: S1, S2. ABDOMEN: Obese, soft, nontender with bowel sounds present. EXTREMITIES: No gross edema or cyanosis. SKIN: Warm to touch without signs of rash. Multiple pressure wounds involving sacrococcygeal, left ischial and bilateral heels with necrotic tissue, foul odor and undetermined depth. NEUROLOGIC: Alert and oriented x 3. Paraplegic without sensation or movement in the lower extremities. Labs Lab Laboratory Tests Test 03/13/19 11:40 03/13/19 14:23 03/13/19 17:00 03/14/19 03:30 White Blood Count 17.5 x10^3/uL (4.0-11.0) 14.3 x10^3/uL (4.0-11.0) Red Blood Count 4.08 x10^6/uL (4.30-5.70) 3.23 x10^6/uL (4.30-5.70) Hemoglobin 11.7 g/dL (13.0-17.5) 9.3 g/dL (13.0-17.5) Hematocrit 34.9 % (39.0-53.0) 27.5 % (39.0-53.0) Mean Corpuscular Volume 86 fL (79-100) 85 fL (79-100) Mean Corpuscular Hemoglobin 29 pg (25-35) 29 pg (25-35) Mean Corpuscular Hemoglobin Concent 33 g/dL (31-37) 34 g/dL (31-37) Red Cell Distribution Width 15.9 % (11.5-14.5) 15.6 % (11.5-14.5) Platelet Count 413 x10^3/uL (140-400) 362 x10^3/uL (140-400) Neutrophils (%) (Auto) 84 % (31-73) 84 % (31-73) Lymphocytes (%) (Auto) 7 % (24-48) 8 % (24-48) Monocytes (%) (Auto) 6 % (0-9) 7 % (0-9) Eosinophils (%) (Auto) 2 % (0-3) 2 % (0-3) Basophils (%) (Auto) 0 % (0-3) 1 % (0-3) Neutrophils # (Auto) 14.7 x10^3/uL (1.8-7.7) 12.0 x10^3/uL (1.8-7.7) Lymphocytes # (Auto) 1.3 x10^3/uL (1.0-4.8) 1.1 x10^3/uL (1.0-4.8) Monocytes # (Auto) 1.1 x10^3/uL (0.0-1.1) 0.9 x10^3/uL (0.0-1.1) Eosinophils # (Auto) 0.4 x10^3/uL (0.0-0.7) 0.2 x10^3/uL (0.0-0.7) Basophils # (Auto) 0.1 x10^3/uL (0.0-0.2) 0.1 x10^3/uL (0.0-0.2) Segmented Neutrophils % 78 % (35-66) Band Neutrophils % 9 % (0-9) Lymphocytes % 6 % (24-48) Monocytes % 5 % (0-10) Eosinophils % 1 % (0-5) Basophils % 1 % (0-3) Platelet Estimate Increased (ADEQUATE) Large Platelets Few Anisocytosis Slight Erythrocyte Sedimentation Rate 118 (0-15) Prothrombin Time 17.6 SEC (11.7-14.0) Prothromb Time International Ratio 1.5 (0.8-1.1) Sodium Level 143 mmol/L (136-145) 142 mmol/L (136-145) Potassium Level 3.9 mmol/L (3.5-5.1) 3.3 mmol/L (3.5-5.1) Chloride Level 105 mmol/L (98-107) 108 mmol/L (98-107) Carbon Dioxide Level 28 mmol/L (21-32) 25 mmol/L (21-32) Anion Gap 10 (6-14) 9 (6-14) Blood Urea Nitrogen 13 mg/dL (8-26) 8 mg/dL (8-26) Creatinine 0.6 mg/dL (0.7-1.3) 0.6 mg/dL (0.7-1.3) Estimated GFR (Cockcroft-Gault) 134.8 134.8 BUN/Creatinine Ratio 22 (6-20) Glucose Level 99 mg/dL (70-99) 103 mg/dL (70-99) Lactic Acid Level 2.2 mmol/L (0.4-2.0) 1.0 mmol/L (0.4-2.0) Calcium Level 9.2 mg/dL (8.5-10.1) 8.0 mg/dL (8.5-10.1) Total Bilirubin 0.4 mg/dL (0.2-1.0) Aspartate Amino Transf (AST/SGOT) 30 U/L (15-37) Alanine Aminotransferase (ALT/SGPT) 34 U/L (16-63) Alkaline Phosphatase 94 U/L (46-116) Total Protein 7.7 g/dL (6.4-8.2) Albumin 2.2 g/dL (3.4-5.0) Albumin/Globulin Ratio 0.4 (1.0-1.7) Procalcitonin 1.22 ng/mL (0.00-0.10) 1.24 ng/mL (0.00-0.10) Urine Collection Type Unknown Urine Color Yuni Urine Clarity Cloudy Urine pH 5.5 Urine Specific Calvert 1.025 Urine Protein 30 mg/dL (NEG-TRACE) Urine Glucose (UA) Negative mg/dL (NEG) Urine Ketones (Stick) Negative mg/dL (NEG) Urine Blood Moderate (NEG) Urine Nitrite Positive (NEG) Urine Bilirubin Negative (NEG) Urine Urobilinogen Dipstick 1.0 mg/dL (0.2 mg/dL) Urine Leukocyte Esterase Large (NEG) Urine RBC 0 /HPF (0-2) Urine WBC Tntc /HPF (0-4) Urine Bacteria Many /HPF (0-FEW) Urine Mucus Mod /LPF Activated Partial Thromboplast Time 45 SEC (24-38) Fibrinogen 837 mg/dL (200-440) Magnesium Level 1.9 mg/dL (1.8-2.4) Micro MRI of the thoracic and lumbar spine without and with contrast 03/14/2019 CLINICAL HISTORY: Transverse myelitis. TECHNIQUE: Unenhanced T1-weighted, T2-weighted and inversion recovery sagittal and T1-weighted and T2-weighted axial images of the thoracic and lumbar spine were obtained. After the intravenous administration of 20 cc of DOTAREM, enhanced T1-weighted sagittal and axial images of the thoracic and lumbar spine were obtained. FINDINGS: Comparison study is dated 12/31/2018. Images from the study are degraded by patient motion. Mild S-shaped curvature of the thoracolumbar spine is seen. Degenerative signal changes are seen involving all of the disks of the thoracic and throughout the lumbar spine. Degenerative signal changes are seen within the marrow surrounding these discs. Increased signal intensity is seen on the T2-weighted and inversion recovery images involving the thoracic spinal cord at the T5-6 level extending throughout the mid and inferior thoracic spinal cord. The spinal cord is expanded. These findings are consistent with the patient's history of transverse myelitis. The edema and cord expansion has increased since the previous study. Faint enhancement of the conus medullaris is again seen essentially unchanged. The patient is post laminectomy at L5-S1. Degenerative changes are seen involving the thoracic and throughout the lumbar spine which are unchanged. IMPRESSION: Findings are again seen consistent with the patient's history of transverse myelitis which has progressed since the previous study. MRI pelvis IMPRESSION: 1. Large ulcers sinus tracts in the left inferior buttock and in the midline buttock region as described above. These 2 ulcers appear to be interconnected. Findings suspicious for osteomyelitis of the left ischium and the distal coccyx deep to the ulcers. 2. 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 Has tolerated amoxicillin in the past Neurogenic bladder requiring self-catherizations -h/o E. coli UTI (warren-S) Paraplegia. h/o transverse myelitis. ESR 118 MRI her worse -Followed by neurologist Dr. Eddy at [facility] -Recent steroids 01/17-02/12 h/o PE Plan Plan of Care Continue vanc, Zosyn and micafungin Continue po vancomycin with h/o recurrent c. diff Blood cultures done on the at Dr. Hopkins's office still pending Blood/urine cultures here are pending Appreciate gen surgery eval, debridement scheduled for Sunday, 03/17 Local wound care and offloading Await MRI thoracic/lumbar and pelvis Monitor renal function closely D/w at bedside D/w nursing Clinically feeling better - d/w MRI of pelvis. MRI reviewed - Lumbar appears stable however thoracic has worsened and had received high dose steroids previously. ? If biopsy would be helpful. Will consult Neurology for opinion. ? transfer to for higher level of neurological care D/w and nursing Attending Co-Sign Attending Co-Sign The patient was seen and interviewed as well as examined at the bedside. The chart was reviewed. The case was discussed. Agree with the plan of care. BEATRICE RO APRN Mar 14, 2019 11:32 MILIND GUZMAN MD Mar 14, 2019 17:28
[2019-03-14] MEDS: IV NORMAL SALINE 1000ML BAG 1,000 ML IV SCH (12:00)
[2019-03-14] MEDS: LACTOBACILLUS RHAMNOSUS GG 1 CAPSULE. PO SCH ×2 (12:15→21:27)
[2019-03-14] MEDS: VANCOMYCIN PER PHARMACY MC PRN ×2 (13:19→21:26)
[2019-03-14] MEDS ORDERED: GADOTERATE 5 MMOL/10ML VIAL. IVP ONE (14:00)
[2019-03-14 15:00] VITALS: BP 156/86
--- NOTE | 2019-03-14 15:46 | RAD ---
Examination: MRI of the pelvis without and with IV contrast HISTORY: History of a skin wound COMPARISON: None available Technique: Multiplanar, multisequence MR imaging of the pelvis were performed without and with IV contrast. IV contrast was was 20 ml od Dotarem FINDINGS: Bilateral hip arthroplasty artifact limits evaluation There is diffuse fatty atrophic changes of the muscles of the pelvic girdle throughout There is a large ulcer with sinus tract, measuring 11 cm identified in the soft tissue of the left medial thigh posteriorly in the left buttock region extending up to the left ischial tuberosity. Another ulcer with sinus tract measuring 4.8 cm identified in the soft tissue posteriorly and in the midline posterior to the distal coccyx and extending inferiorly in the midline. Both the ulcers appear to be interconnected, best visualized on series 10 image 10. There is decreased T1 signal identified in the left ischial tuberosity with corresponding high T2 signal and in the distal coccyx region suspicious for osteomyelitis. There is enhancement of the soft tissue around the ulcer in the midline and in the left buttock region extending to the left ischium. The hamstring tendons appear intact.. The bilateral hamstring tendons grossly appears intact. Small amount of fluid or a tiny abscess or bursal fluid identified in the right ischial tuberosity region. IMPRESSION: 1. Large ulcers sinus tracts in the left inferior buttock and in the midline buttock region as described above. These 2 ulcers appear to be interconnected. Findings suspicious for osteomyelitis of the left ischium and the distal coccyx deep to the ulcers. 2. Small amount of fluid or a tiny abscess or bursal fluid identified in the right ischial tuberosity region Electronically signed by: Jem Curry MD (03/14/2019 3:44 PM) [email or web address]
[2019-03-14] MEDS: MICAFUNGIN 100 MG in IV DEXTROSE 5% 100ML 100 ML IV SCH (16:03)
--- NOTE | 2019-03-14 16:38 | NUR ---
SW following pt for dc planning. Chart reviewed and pt lives at home with Spouse. OT recommends Home health. Per RN, pt will have a procedure on Sunday. Will continue to follow.
--- NOTE | 2019-03-14 17:02 | RAD ---
MRI of the thoracic and lumbar spine without and with contrast 03/14/2019 CLINICAL HISTORY: Transverse myelitis. TECHNIQUE: Unenhanced T1-weighted, T2-weighted and inversion recovery sagittal and T1-weighted and T2-weighted axial images of the thoracic and lumbar spine were obtained. After the intravenous administration of 20 cc of DOTAREM, enhanced T1-weighted sagittal and axial images of the thoracic and lumbar spine were obtained. FINDINGS: Comparison study is dated 12/31/2018. Images from the study are degraded by patient motion. Mild S-shaped curvature of the thoracolumbar spine is seen. Degenerative signal changes are seen involving all of the disks of the thoracic and throughout the lumbar spine. Degenerative signal changes are seen within the marrow surrounding these discs. Increased signal intensity is seen on the T2-weighted and inversion recovery images involving the thoracic spinal cord at the T5-6 level extending throughout the mid and inferior thoracic spinal cord. The spinal cord is expanded. These findings are consistent with the patient's history of transverse myelitis. The edema and cord expansion has increased since the previous study. Faint enhancement of the conus medullaris is again seen essentially unchanged. The patient is post laminectomy at L5-S1. Degenerative changes are seen involving the thoracic and throughout the lumbar spine which are unchanged. IMPRESSION: Findings are again seen consistent with the patient's history of transverse myelitis which has progressed since the previous study. Electronically signed by: Jax Morris MD (03/14/2019 4:59 PM) [email or web address]
[2019-03-14 19:00] VITALS: BP 130/67
[2019-03-14] MEDS: ATORVASTATIN CALCIUM 40 MG TABLET. PO SCH (21:27)
--- NOTE | 2019-03-14 21:28 | NUR ---
Pharmacy Vancomycin Dosing Note S: Consulted to monitor and dose vancomycin started 03/13/19. O: DONAVON TRAVIS is a 64 year old M with Cellulitis Sepsis, . Other Antibiotics: LABS: Last BUN: 8 Last Creatinine: 0.6 Creatinine Clearance: 95.4 mL/min Last WBC: 14.3 Last Procalcitonin: 1.24 Tmax (past 24 hours): N/A Microbiology: BLOOD CULTURE Preliminary NO GROWTH AFTER 1 DAY I/O: 3580/1300 Drug Levels: Last level: on at Last dose given 03/14/19 at 2130 Vancomycin Dosing: Dosing Weight: Actual Target Trough: 15-20 A: Based on: LAST DOSE GIVEN 02/12/19 AT APPROX 2130 P: 1. PT IS ON Vancomycin 1750 mg IV q12h 2. Follow up Trough level on 03/15/19 at 0900 3. Pharmacy will continue to monitor, follow and adjust therapy as needed. PAT THIBODEAUX RPH, 03/14/[id number] Signed: 03/14/19 at 2130 by PAT THIBODEAUX RPH PHA Addendum: 03/15/19 at 0208 by PAT THIBODEAUX RPH PHA 03/15/19 0900 VANCOMYCIN TROUGH RESCHEDULED FOR 1300 DUE TO 03/14 2130 DOSE NOT INFUSED TILL APPROX 0130 BECAUSE RN STATED IV LINE WAS CLAMPED Signed: 03/15/19 at 0208 by PAT THIBODEAUX [facility] PHA
[2019-03-14 23:28] VITALS: BP 137/73
[2019-03-15] MEDS: IV NORMAL SALINE 1000ML BAG 1,000 ML IV SCH ×3 (01:00→18:04)
[2019-03-15] MEDS: PIPERACILLIN/TAZOBACTAM 3.375 GM in IV NORMAL SALINE 50ML 50 ML IV SCH ×5 (02:00→23:50)
[2019-03-15] MEDS: VANCOMYCIN PER PHARMACY MC PRN ×2 (02:14→10:22)
[2019-03-15 03:13] VITALS: BP 132/69
[2019-03-15] MEDS: ACETAMINOPHEN 325 MG TABLET. PO PRN ×2 (03:28→23:50)
[2019-03-15 06:53] LABS: BASO # 0.1 x10^3/uL (0.0-0.2); BASO % 0 % (0-3); EOS # 0.3 x10^3/uL (0.0-0.7); EOS % 2 % (0-3); HEMATOCRIT 27.5 % (39.0-53.0); HEMOGLOBIN 9.3 g/dL (13.0-17.5); LYMPH # 1.2 x10^3/uL (1.0-4.8); LYMPH % 9 % (24-48); MEAN CORPUSCULAR HEMOGLOBIN 29 pg (25-35); MEAN CORPUSCULAR HGB CONC 34 g/dL (31-37); MEAN CORPUSCULAR VOLUME 85 fL (79-100); MONO # 0.9 x10^3/uL (0.0-1.1); MONO % 7 % (0-9); NEUT % 82 % (31-73); PLATELET COUNT 364 x10^3/uL (140-400); RED BLOOD COUNT 3.23 x10^6/uL (4.30-5.70); RED CELL DISTRIBUTION WIDTH 15.6 % (11.5-14.5); WHITE BLOOD COUNT 13.4 x10^3/uL (4.0-11.0)
[2019-03-15 06:58] LABS: CALCIUM 8.1 mg/dL (8.5-10.1); CREATININE 0.5 mg/dL (0.7-1.3); GFR 166.4; POTASSIUM 3.3 mmol/L (3.5-5.1)
[2019-03-15 07:00] VITALS: BP 104/72
--- NOTE | 2019-03-15 07:31 | PDOC ---
Infectious Disease Note Subjective Subjective Low-grade fevers better Feeling better No further chills/shakes or body aches ROS ROS o/w neg Vital Sign Vital Signs Vital Signs Date Time Temp Pulse Resp B/P (MAP) Pulse Ox O2 Delivery O2 Flow Rate FiO2 03/15/19 03:13 100.8 91 20 132/69 (90) 94 Room Air 100.8 Physical Exam PHYSICAL EXAM GENERAL: Propped up in bed, alert, smiling, relaxed HEENT: Pupils equally round, reactive. Normal conjunctivae. Oropharynx pink and moist. No lesions seen. NECK: Supple. LUNGS: Clear to auscultation. HEART: S1, S2. ABDOMEN: Obese, soft, nontender with bowel sounds present. EXTREMITIES: No gross edema or cyanosis. SKIN: Warm to touch without signs of rash. Multiple pressure wounds involving sacrococcygeal, left ischial and bilateral heels with necrotic tissue, foul odor and undetermined depth. NEUROLOGIC: Alert and oriented x 3. Paraplegic without sensation or movement in the lower extremities. Labs Lab Laboratory Tests Test 03/15/19 06:20 Sodium Level 144 mmol/L (136-145) Potassium Level 3.3 mmol/L (3.5-5.1) Chloride Level 110 mmol/L (98-107) Carbon Dioxide Level 25 mmol/L (21-32) Anion Gap 9 (6-14) Blood Urea Nitrogen 8 mg/dL (8-26) Creatinine 0.5 mg/dL (0.7-1.3) Estimated GFR (Cockcroft-Gault) 166.4 Glucose Level 108 mg/dL (70-99) Calcium Level 8.1 mg/dL (8.5-10.1) Micro MRI of the thoracic and lumbar spine without and with contrast 03/14/2019 CLINICAL HISTORY: Transverse myelitis. TECHNIQUE: Unenhanced T1-weighted, T2-weighted and inversion recovery sagittal and T1-weighted and T2-weighted axial images of the thoracic and lumbar spine were obtained. After the intravenous administration of 20 cc of DOTAREM, enhanced T1-weighted sagittal and axial images of the thoracic and lumbar spine were obtained. FINDINGS: Comparison study is dated 12/31/2018. Images from the study are degraded by patient motion. Mild S-shaped curvature of the thoracolumbar spine is seen. Degenerative signal changes are seen involving all of the disks of the thoracic and throughout the lumbar spine. Degenerative signal changes are seen within the marrow surrounding these discs. Increased signal intensity is seen on the T2-weighted and inversion recovery images involving the thoracic spinal cord at the T5-6 level extending throughout the mid and inferior thoracic spinal cord. The spinal cord is expanded. These findings are consistent with the patient's history of transverse myelitis. The edema and cord expansion has increased since the previous study. Faint enhancement of the conus medullaris is again seen essentially unchanged. The patient is post laminectomy at L5-S1. Degenerative changes are seen involving the thoracic and throughout the lumbar spine which are unchanged. IMPRESSION: Findings are again seen consistent with the patient's history of transverse myelitis which has progressed since the previous study. MRI pelvis IMPRESSION: 1. Large ulcers sinus tracts in the left inferior buttock and in the midline buttock region as described above. These 2 ulcers appear to be interconnected. Findings suspicious for osteomyelitis of the left ischium and the distal coccyx deep to the ulcers. 2. 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 Has tolerated amoxicillin in the past Neurogenic bladder requiring self-catherizations -h/o E. coli UTI (warren-S) Paraplegia. h/o transverse myelitis. ESR 118 MRI her worse -Followed by neurologist Dr. Eddy at [facility] -Recent steroids 01/17-02/12 h/o PE Plan Plan of Care Continue vanc, Zosyn and micafungin Continue po vancomycin with h/o recurrent c. diff F/u sputum cult - likely nml dima Blood cultures done on the at Dr. Hopkins's office still pending Blood/urine cultures here are pending Appreciate gen surgery eval, debridement scheduled for Sunday, 03/17 Local wound care and offloading Monitor renal function closely Clinically feeling better - d/w MRI of pelvis. MRI reviewed - Lumbar appears stable however thoracic has worsened and had received high dose steroids previously. ? If biopsy would be helpful. Will consult Neurology for opinion. ? transfer to for higher level of neurological care D/w and nursing MILIND GUZMAN MD Mar 15, 2019 07:31
[2019-03-15] MEDS: APIXABAN 5 MG TABLET. PO SCH ×2 (08:45→21:30)
[2019-03-15] MEDS: amLODIPine BESYLATE 10 MG TABLET PO SCH (08:46)
[2019-03-15] MEDS: METOPROLOL SUCC 24HR ER 50 MG TAB.ER.24H. PO SCH (08:47)
[2019-03-15] MEDS: LOSARTAN POTASSIUM 50 MG TABLET. PO SCH (08:47)
[2019-03-15] MEDS: GABAPENTIN 300 MG CAPSULE. PO SCH ×3 (08:48→21:30)
[2019-03-15] MEDS: OMEGA-3 FATTY ACIDS/FISH OIL 1,000 MG CAPSULE. PO SCH (08:48)
[2019-03-15] MEDS: VANCOMYCIN 125 MG/2.5 ML ORAL SOLUTION. PO SCH ×2 (08:48→21:30)
[2019-03-15] MEDS: LACTOBACILLUS RHAMNOSUS GG 1 CAPSULE. PO SCH ×2 (08:48→21:30)
--- NOTE | 2019-03-15 08:50 | PDOC ---
PROGRESS NOTES Chief Complaint Chief Complaint A/P: Multiple nonhealing pressure wounds involving sacrococcygeal, left ischium and bilateral heels with necrotic tissue and malodor Sepsis - likely 2/2 coccygeal wound History of recurrent Clostridium difficile diarrhea, Neurogenic bladder requiring self-catheterizations Transverse myelitis with subsequent paraplegia - on high dose steroids on 02/12 - 12/27 MRI L/S C/W Progression in both signal intensity and superior extent of diffusely History of pulmonary embolism. mod-severe protein calorie malnutrition MORBID OBESITY Anemia - likely of chronic inflammation Hypokalemia Lactic acidosis 32 MIN PT EXAM, CHART REVIEW, > 50% OF TIME SPENT WITH EXAM, CHART REVIEW, PT CARE COORDINATION History of Present Illness History of Present Illness Mr Rust is a 64-year-old male with PMHx recent PE, transverse myelitis with paraplegia, neurogenic bladder, and multiple pressure wounds, who [facility] and debridement of wounds. Over the last 2 months or so, he has had off and on chills/shakes and over the past 2 weeks, fevers, ranging from 101-106 degrees. He was just treated with high dose steroids outpatient for progression of his transverse myelitis and has been seen by his PCP, Dr. Artis on 03/11, had blood cultures taken and was seen in wound clinic on 03/13 and directly admitted to [facility]. He also has recurrent Clostridium difficile infection (07/2018 and 11/2018) still on a taper of oral vancomycin and h/o e. coli UTI (self-caths up to 6 times daily). 03/14: Overnight with fever 100.6F. Plans to go to OR for further backside debride, however, I did let him eat. MRI - 1. Large ulcers sinus tracts in the left inferior buttock and in the midline buttock region as described above. These 2 ulcers appear to be interconnected. Findings suspicious for osteomyelitis of the left ischium and the distal coccyx deep to the ulcers. 2. 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 Today he is pain free, does have occasional chills, denies CP and SOB. Plan: Will await neuro recs on whether he needs further acute treatment for transverse myelitis F/u surgery recs, may need I&D of gluteal wound and likely diverting colostomy Outpatient referral to plastics vs transfer to [facility] Vitals Vitals Vital Signs Date Time Temp Pulse Resp B/P (MAP) Pulse Ox O2 Delivery O2 Flow Rate FiO2 03/15/19 07:00 98.5 89 18 104/72 (83) 96 Room Air 98.5 Physical Exam Physical Exam GENERAL: Propped up in bed, alert, smiling, relaxed HEENT: Pupils equally round, reactive. Normal conjunctivae. Oropharynx pink and moist. No lesions seen. NECK: Supple. LUNGS: Clear to auscultation. HEART: S1, S2. ABDOMEN: Obese, soft, nontender with bowel sounds present. EXTREMITIES: No gross edema or cyanosis. SKIN: Warm to touch without signs of rash. Multiple pressure wounds involving sacrococcygeal, left ischial and bilateral heels with necrotic tissue, foul odor and undetermined depth. NEUROLOGIC: Alert and oriented x 3. Paraplegic without sensation or movement in the lower extremities. General: Alert, Oriented X3, Cooperative, No acute distress Heart: Regular rate, Normal S1, Normal S2 Lungs: Clear Abdomen: Normal bowel sounds, Soft, No tenderness Extremities: Other (atrophy ) Skin: Other (sacral decub wound deep, eschar seen) Labs LABS Laboratory Tests Test 03/15/19 06:20 White Blood Count 13.4 x10^3/uL (4.0-11.0) Red Blood Count 3.23 x10^6/uL (4.30-5.70) Hemoglobin 9.3 g/dL (13.0-17.5) Hematocrit 27.5 % (39.0-53.0) Mean Corpuscular Volume 85 fL (79-100) Mean Corpuscular Hemoglobin 29 pg (25-35) Mean Corpuscular Hemoglobin Concent 34 g/dL (31-37) Red Cell Distribution Width 15.6 % (11.5-14.5) Platelet Count 364 x10^3/uL (140-400) Neutrophils (%) (Auto) 82 % (31-73) Lymphocytes (%) (Auto) 9 % (24-48) Monocytes (%) (Auto) 7 % (0-9) Eosinophils (%) (Auto) 2 % (0-3) Basophils (%) (Auto) 0 % (0-3) Neutrophils # (Auto) 11.0 x10^3/uL (1.8-7.7) Lymphocytes # (Auto) 1.2 x10^3/uL (1.0-4.8) Monocytes # (Auto) 0.9 x10^3/uL (0.0-1.1) Eosinophils # (Auto) 0.3 x10^3/uL (0.0-0.7) Basophils # (Auto) 0.1 x10^3/uL (0.0-0.2) Sodium Level 144 mmol/L (136-145) Potassium Level 3.3 mmol/L (3.5-5.1) Chloride Level 110 mmol/L (98-107) Carbon Dioxide Level 25 mmol/L (21-32) Anion Gap 9 (6-14) Blood Urea Nitrogen 8 mg/dL (8-26) Creatinine 0.5 mg/dL (0.7-1.3) Estimated GFR (Cockcroft-Gault) 166.4 Glucose Level 108 mg/dL (70-99) Calcium Level 8.1 mg/dL (8.5-10.1) Comment Review of Relevant I have reviewed the following items franc (where applicable) has been applied. Labs Laboratory Tests Test 03/13/19 11:40 03/13/19 14:23 03/13/19 17:00 03/14/19 03:30 White Blood Count 17.5 x10^3/uL (4.0-11.0) 14.3 x10^3/uL (4.0-11.0) Red Blood Count 4.08 x10^6/uL (4.30-5.70) 3.23 x10^6/uL (4.30-5.70) Hemoglobin 11.7 g/dL (13.0-17.5) 9.3 g/dL (13.0-17.5) Hematocrit 34.9 % (39.0-53.0) 27.5 % (39.0-53.0) Mean Corpuscular Volume 86 fL (79-100) 85 fL (79-100) Mean Corpuscular Hemoglobin 29 pg (25-35) 29 pg (25-35) Mean Corpuscular Hemoglobin Concent 33 g/dL (31-37) 34 g/dL (31-37) Red Cell Distribution Width 15.9 % (11.5-14.5) 15.6 % (11.5-14.5) Platelet Count 413 x10^3/uL (140-400) 362 x10^3/uL (140-400) Neutrophils (%) (Auto) 84 % (31-73) 84 % (31-73) Lymphocytes (%) (Auto) 7 % (24-48) 8 % (24-48) Monocytes (%) (Auto) 6 % (0-9) 7 % (0-9) Eosinophils (%) (Auto) 2 % (0-3) 2 % (0-3) Basophils (%) (Auto) 0 % (0-3) 1 % (0-3) Neutrophils # (Auto) 14.7 x10^3/uL (1.8-7.7) 12.0 x10^3/uL (1.8-7.7) Lymphocytes # (Auto) 1.3 x10^3/uL (1.0-4.8) 1.1 x10^3/uL (1.0-4.8) Monocytes # (Auto) 1.1 x10^3/uL (0.0-1.1) 0.9 x10^3/uL (0.0-1.1) Eosinophils # (Auto) 0.4 x10^3/uL (0.0-0.7) 0.2 x10^3/uL (0.0-0.7) Basophils # (Auto) 0.1 x10^3/uL (0.0-0.2) 0.1 x10^3/uL (0.0-0.2) Segmented Neutrophils % 78 % (35-66) Band Neutrophils % 9 % (0-9) Lymphocytes % 6 % (24-48) Monocytes % 5 % (0-10) Eosinophils % 1 % (0-5) Basophils % 1 % (0-3) Platelet Estimate Increased (ADEQUATE) Large Platelets Few Anisocytosis Slight Erythrocyte Sedimentation Rate 118 (0-15) Prothrombin Time 17.6 SEC (11.7-14.0) Prothromb Time International Ratio 1.5 (0.8-1.1) Sodium Level 143 mmol/L (136-145) 142 mmol/L (136-145) Potassium Level 3.9 mmol/L (3.5-5.1) 3.3 mmol/L (3.5-5.1) Chloride Level 105 mmol/L (98-107) 108 mmol/L (98-107) Carbon Dioxide Level 28 mmol/L (21-32) 25 mmol/L (21-32) Anion Gap 10 (6-14) 9 (6-14) Blood Urea Nitrogen 13 mg/dL (8-26) 8 mg/dL (8-26) Creatinine 0.6 mg/dL (0.7-1.3) 0.6 mg/dL (0.7-1.3) Estimated GFR (Cockcroft-Gault) 134.8 134.8 BUN/Creatinine Ratio 22 (6-20) Glucose Level 99 mg/dL (70-99) 103 mg/dL (70-99) Lactic Acid Level 2.2 mmol/L (0.4-2.0) 1.0 mmol/L (0.4-2.0) Calcium Level 9.2 mg/dL (8.5-10.1) 8.0 mg/dL (8.5-10.1) Total Bilirubin 0.4 mg/dL (0.2-1.0) Aspartate Amino Transf (AST/SGOT) 30 U/L (15-37) Alanine Aminotransferase (ALT/SGPT) 34 U/L (16-63) Alkaline Phosphatase 94 U/L (46-116) Total Protein 7.7 g/dL (6.4-8.2) Albumin 2.2 g/dL (3.4-5.0) Albumin/Globulin Ratio 0.4 (1.0-1.7) Procalcitonin 1.22 ng/mL (0.00-0.10) 1.24 ng/mL (0.00-0.10) Urine Collection Type Unknown Urine Color [place] Urine Clarity Cloudy Urine pH 5.5 Urine Specific [place] 1.025 Urine Protein 30 mg/dL (NEG-TRACE) Urine Glucose (UA) Negative mg/dL (NEG) Urine Ketones (Stick) Negative mg/dL (NEG) Urine Blood Moderate (NEG) Urine Nitrite Positive (NEG) Urine Bilirubin Negative (NEG) Urine Urobilinogen Dipstick 1.0 mg/dL (0.2 mg/dL) Urine Leukocyte Esterase Large (NEG) Urine RBC 0 /HPF (0-2) Urine WBC Tntc /HPF (0-4) Urine Bacteria Many /HPF (0-FEW) Urine Mucus Mod /LPF Activated Partial Thromboplast Time 45 SEC (24-38) Fibrinogen 837 mg/dL (200-440) Magnesium Level 1.9 mg/dL (1.8-2.4) Test 03/15/19 06:20 White Blood Count 13.4 x10^3/uL (4.0-11.0) Red Blood Count 3.23 x10^6/uL (4.30-5.70) Hemoglobin 9.3 g/dL (13.0-17.5) Hematocrit 27.5 % (39.0-53.0) Mean Corpuscular Volume 85 fL (79-100) Mean Corpuscular Hemoglobin 29 pg (25-35) Mean Corpuscular Hemoglobin Concent 34 g/dL (31-37) Red Cell Distribution Width 15.6 % (11.5-14.5) Platelet Count 364 x10^3/uL (140-400) Neutrophils (%) (Auto) 82 % (31-73) Lymphocytes (%) (Auto) 9 % (24-48) Monocytes (%) (Auto) 7 % (0-9) Eosinophils (%) (Auto) 2 % (0-3) Basophils (%) (Auto) 0 % (0-3) Neutrophils # (Auto) 11.0 x10^3/uL (1.8-7.7) Lymphocytes # (Auto) 1.2 x10^3/uL (1.0-4.8) Monocytes # (Auto) 0.9 x10^3/uL (0.0-1.1) Eosinophils # (Auto) 0.3 x10^3/uL (0.0-0.7) Basophils # (Auto) 0.1 x10^3/uL (0.0-0.2) Sodium Level 144 mmol/L (136-145) Potassium Level 3.3 mmol/L (3.5-5.1) Chloride Level 110 mmol/L (98-107) Carbon Dioxide Level 25 mmol/L (21-32) Anion Gap 9 (6-14) Blood Urea Nitrogen 8 mg/dL (8-26) Creatinine 0.5 mg/dL (0.7-1.3) Estimated GFR (Cockcroft-Gault) 166.4 Glucose Level 108 mg/dL (70-99) Calcium Level 8.1 mg/dL (8.5-10.1) Laboratory Tests Test 03/15/19 06:20 White Blood Count 13.4 x10^3/uL (4.0-11.0) Red Blood Count 3.23 x10^6/uL (4.30-5.70) Hemoglobin 9.3 g/dL (13.0-17.5) Hematocrit 27.5 % (39.0-53.0) Mean Corpuscular Volume 85 fL (79-100) Mean Corpuscular Hemoglobin 29 pg (25-35) Mean Corpuscular Hemoglobin Concent 34 g/dL (31-37) Red Cell Distribution Width 15.6 % (11.5-14.5) Platelet Count 364 x10^3/uL (140-400) Neutrophils (%) (Auto) 82 % (31-73) Lymphocytes (%) (Auto) 9 % (24-48) Monocytes (%) (Auto) 7 % (0-9) Eosinophils (%) (Auto) 2 % (0-3) Basophils (%) (Auto) 0 % (0-3) Neutrophils # (Auto) 11.0 x10^3/uL (1.8-7.7) Lymphocytes # (Auto) 1.2 x10^3/uL (1.0-4.8) Monocytes # (Auto) 0.9 x10^3/uL (0.0-1.1) Eosinophils # (Auto) 0.3 x10^3/uL (0.0-0.7) Basophils # (Auto) 0.1 x10^3/uL (0.0-0.2) Sodium Level 144 mmol/L (136-145) Potassium Level 3.3 mmol/L (3.5-5.1) Chloride Level 110 mmol/L (98-107) Carbon Dioxide Level 25 mmol/L (21-32) Anion Gap 9 (6-14) Blood Urea Nitrogen 8 mg/dL (8-26) Creatinine 0.5 mg/dL (0.7-1.3) Estimated GFR (Cockcroft-Gault) 166.4 Glucose Level 108 mg/dL (70-99) Calcium Level 8.1 mg/dL (8.5-10.1) Microbiology 03/14/19 - Final, Resulted 03/14/19 - Final, Resulted 03/14/19 - Final, Resulted 03/14/19 - Final, Resulted 03/14/19 - Final, Resulted 03/14/19 - Final, Resulted 03/14/19 Gram Stain Evaluation - Final, Resulted 03/14/19 Sputum Culture, Resulted Pending 03/13/19 Blood Culture - Preliminary, Resulted NO GROWTH AFTER 1 DAY Medications Current Medications Sodium Chloride 1,000 ml @ 80 mls/hr [id number] IV Last administered on 03/13/19at 13:45; Start 03/13/19 at 13:45; Stop 03/13/19 at 17:48; Status DC Vancomycin HCl (Vanco Per Pharmacy) 1 each PRN DAILY PRN MC SEE COMMENTS Last administered on 03/15/19at 02:14; Start 03/13/19 at 13:30 Piperacillin Sod/ Tazobactam Sod 3.375 gm/Sodium Chloride 50 ml @ 100 mls/hr Q6HRS IV Last administered on 03/15/19 06:10; Start 03/13/19 at 14:00 Vancomycin HCl 2 gm/Sodium Chloride 500 ml @ 250 mls/hr 1X ONCE IV Last administered on 03/13/19 14:20; Start 03/13/19 at 15:00; Stop 03/13/19 at 16:59; Status DC Micafungin Sodium 100 mg/Dextrose 100 ml @ 100 mls/hr Q24H IV Last administered on 03/14/19 16:03; Start 03/13/19 at 16:00 Vancomycin HCl (Vancomycin Oral Solution) 125 mg BID PO Last administered on 03/14/19 21:27; Start 03/13/19 at 16:00 Acetaminophen (Tylenol) 650 mg PRN Q6HRS PRN PO FEVER Last administered on 03/13/19 16:26; Start 03/13/19 at 16:15; Stop 03/13/19 at 17:48; Status DC Vancomycin HCl 1.75 gm/Sodium Chloride 500 ml @ 250 mls/hr Q12H IV Last administered on 03/14/19 21:28; Start 03/14/19 at 02:00 Vancomycin HCl (Vancomycin Trough Level) 1 each 1X ONCE MC ; Start 03/15/19 at 13:00; Stop 03/15/19 at 13:01 Apixaban (Eliquis) 5 mg BID PO Last administered on 03/14/19 21:27; Start 03/13/19 at 21:00 Gabapentin (Neurontin) 300 mg TID PO Last administered on 03/14/19 21:27; Start 03/13/19 at 21:00 Oxycodone/ Acetaminophen (Percocet 5/325) 1 tab PRN Q6HRS PRN PO MODERATE PAIN; Start 03/13/19 at 16:45 Oxycodone/ Acetaminophen (Percocet 5/325) 2 tab PRN Q4HRS PRN PO SEVERE PAIN 7- 10; Start 03/13/19 at 16:45 Amlodipine Besylate (Norvasc) 10 mg DAILY PO Last administered on 03/14/19 09:28; Start 03/14/19 at 09:00 Non-Formulary Medication (Digestive Enzymes Combo No.7 (Superior Digestive Enzyme)) 1 each BID PO ; Start 03/13/19 at 21:00; Stop 03/13/19 at 17:13; Status DC Non-Formulary Medication (Glucosamine Sulfate 2KCL (Glucosamine)) 500 mg BID PO ; Start 03/13/19 at 21:00; Stop 03/13/19 at 17:13; Status DC Non-Formulary Medication (Lecithin, Soy (Lecithin)) 518 mg TID PO ; Start 03/13/19 at 21:00; Status UNV Metoprolol Succinate (Toprol Xl) 50 mg DAILY PO Last administered on 03/14/19 09:27; Start 03/14/19 at 09:00 Fish Oil (Fish Oil) 1,000 mg DAILY PO Last administered on 03/14/19 09:27; Start 03/14/19 at 09:00 Atorvastatin Calcium (Lipitor) 40 mg QHS PO Last administered on 03/14/19 21:27; Start 03/13/19 at 21:00 Sodium Chloride (Normal Saline Flush) 3 ml QSHIFT PRN IV AFTER MEDS AND BLOOD DRAWS; Start 03/13/19 at 16:45 Sodium Chloride 1,000 ml @ 100 mls/hr Q10H IV Last administered on 03/15/19at 01:00; Start 03/13/19 at 16:41 Ondansetron HCl (Zofran) 4 mg PRN Q4HRS PRN IV NAUSEA/VOMITING; Start 03/13/19 at 16:45 Zolpidem Tartrate (Ambien) 5 mg PRN QHS PRN PO INSOMNIA; Start 03/13/19 at 16:45 Acetaminophen (Tylenol) 650 mg PRN Q4HRS PRN PO TEMP OVER 100.4F OR MILD PAIN Last administered on 03/15/19at 03:28; Start 03/13/19 at 16:45 Clonidine HCl (Catapres) 0.1 mg PRN Q6HRS PRN PO SBP>160 OR DBP>90; Start 03/13/19 at 16:45 Docusate Sodium (Colace) 100 mg PRN BID PRN PO CONSTIPATION; Start 03/13/19 at 16:45 Albuterol Sulfate (Ventolin Neb Soln) 2.5 mg PRN Q4HRS PRN NEB SHORTNESS OF BREATH; Start 03/13/19 at 16:45 Guaifenesin (Robitussin) 200 mg PRN Q4HRS PRN PO COUGH; Start 03/13/19 at 16:45 Lorazepam (Ativan) 0.5 mg PRN Q4HRS PRN PO ANXIETY / AGITATION; Start 03/13/19 at 16:45 Hydromorphone HCl (Dilaudid) 1 mg PRN Q2HRS PRN IV SEVERE PAIN 7-10; Start 03/13/19 at 16:45 Sodium Chloride 1,000 ml @ 2,340 mls/hr Q26M IV Last administered on 03/13/19at 22:12; Start 03/13/19 at 16:44; Stop 03/13/19 at 17:45; Status DC Sodium Chloride 500 ml @ 1,000 mls/hr PRN Q30MIN PRN IV SEE COMMENTS; Start 03/13/19 at 16:45 Losartan Potassium (Cozaar) 100 mg DAILY PO Last administered on 03/14/19at 09:28; Start 03/14/19 at 09:00 Potassium Chloride (Klor-Con) 40 meq 1X ONCE PO Last administered on 03/14/19at 09:27; Start 03/14/19 at 09:30; Stop 03/14/19 at 09:31; Status DC Info (Anti-Coagulation Monitoring By Pharmacy) 1 each PRN DAILY PRN MC SEE COMMENTS Last administered on 03/14/19at 11:12; Start 03/14/19 at 11:15 Lactobacillus Rhamnosus (Culturelle) 1 cap BID PO Last administered on 03/14/19at 21:27; Start 03/14/19 at 12:15 Gadoterate Meglumine (Dotarem) 20 ml 1X ONCE IVP Last administered on 03/14/19at 12:40; Start 03/14/19 at 14:00; Stop 03/14/19 at 14:01; Status DC Ondansetron HCl (Zofran) 4 mg PRN Q6HRS PRN IV NAUSEA/VOMITING; Start 03/17/19 at 07:00; Stop 03/18/19 at 06:59 Fentanyl Citrate (Fentanyl 2ml Vial) 25 mcg PRN Q5MIN PRN IV MILD PAIN 1-3; Start 03/17/19 at 07:00; Stop 03/18/19 at 06:59 Fentanyl Citrate (Fentanyl 2ml Vial) 50 mcg PRN Q5MIN PRN IV MODERATE TO SEVERE PAIN; Start 03/17/19 at 07:00; Stop 03/18/19 at 06:59 Morphine Sulfate (Morphine Sulfate) 1 mg PRN Q10MIN PRN IV SEVERE PAIN 7-10; Start 03/17/19 at 07:00; Stop 03/18/19 at 06:59 Ringer's Solution 1,000 ml @ 30 mls/hr Q24H IV ; Start 03/17/19 at 07:00; Stop 03/17/19 at 18:59 Lidocaine HCl (Xylocaine-Mpf 1% 2ml Vial) 2 ml PRN 1X PRN ID PRIOR TO IV START; Start 03/17/19 at 07:00; Stop 03/18/19 at 06:59 Hydromorphone HCl (Dilaudid) 0.5 mg PRN Q10MIN PRN IV SEV PAIN, Second choice; Start 03/17/19 at 07:00; Stop 03/18/19 at 06:59 Prochlorperazine Edisylate (Compazine) 5 mg PACU PRN PRN IV NAUSEA, MRX1; Start 03/17/19 at 07:00; Stop 03/18/19 at 06:59 Active Scripts Active Reported Lasix (Furosemide) 40 Mg Tablet 1 Tab PO BID Vancomycin Hcl 125 Mg Capsule 125 Mg PO QODAY Percocet 5-325 Mg Tablet (Oxycodone/Acetaminophen) 1 Each Tablet 1 Tab PO PRN Q6HRS PRN [place]-3 350 mg Cap ([place]-3S/Dha/Epa/Fish Oil) 350 Mg Capsule 350 Mg PO DAILY Lecithin (Lecithin, Soy) 400 Mg Capsule 518 Mg PO TID [place] ([place] Fruit) 450 Mg Capsule 160 Mg PO DAILY Liver Complex Tablet (Milk Thistle/Nac/Dandel/[place]) 1 Each Tablet 1 Each PO BID Superior Digestive Enzyme (Digestive Enzymes Combo No.7) 1 Each Capsule 1 Each PO BID Xarelto (Rivaroxaban) 20 Mg Tablet 20 Mg PO DAILY Eliquis (Apixaban) 5 Mg Tablet 5 Mg PO BID Glucosamine (Glucosamine Sulfate 2KCL) 1,000 Mg Tablet 500 Mg PO BID [place] 10-320 Mg Tablet (Amlodipine/Valsartan) 1 Each Tablet 1 Tab PO DAILY Gabapentin (Gabapentin) 300 Mg Capsule 300 Mg PO TID Percocet 5-325 Mg Tablet (Oxycodone/Acetaminophen) 1 Each Tablet 1-2 Tab PO Q4-6HRS Crestor (Rosuvastatin Calcium) 10 Mg Tablet 1 Tab PO DAILY Toprol Xl (Metoprolol Succinate) 50 Mg Tab.er.24h 1 Tab PO DAILY Vitals/I & O Vital Sign - Last 24 Hours 03/14/19 03/14/19 03/14/19 03/14/19 09:27 09:28 09:28 15:00 Temp 97.9 97.9 Pulse 91 91 91 112 Resp 18 B/P (MAP) 108/66 108/66 108/66 156/86 (109) Pulse Ox 95 O2 Delivery Room Air 03/14/19 03/14/19 03/14/19 03/15/19 19:00 20:00 23:28 03:13 Temp 99.3 98.8 100.8 99.3 98.8 100.8 Pulse 102 103 91 Resp 18 18 20 B/P (MAP) 130/67 (88) 137/73 (94) 132/69 (90) Pulse Ox 96 92 94 O2 Delivery Room Air Room Air Room Air 03/15/19 07:00 Temp 98.5 98.5 Pulse 89 Resp 18 B/P (MAP) 104/72 (83) Pulse Ox 96 O2 Delivery Room Air Intake and Output 03/14/19 03/14/19 03/15/19 15:00 23:00 07:00 Output Total 1400 ml 1500 ml Balance -1400 ml -1500 ml MANDY COOMBS MD Mar 15, 2019 08:50
[2019-03-15] MEDS: ANTI-COAG MONITOR BY PHARMACY. MC PRN (10:19)
[2019-03-15 11:00] VITALS: BP 118/58
[2019-03-15] MEDS: VANCOMYCIN 1.75 GM in IV NORMAL SALINE 500ML BAG 500 ML IV SCH ×2 (11:30→22:54)
[2019-03-15 14:53] VITALS: BP 125/47
[2019-03-15] MEDS: MICAFUNGIN 100 MG in IV DEXTROSE 5% 100ML 100 ML IV SCH (16:48)
--- NOTE | 2019-03-15 18:08 | PDOC ---
Provider Note Provider Note LLUVIA Rodriguez for Dr Ramos Mr Rust may transfer to [facility] for plastics availability Is tentantively scheduled for sacral debridement by Dr Ramos Sunday continue supportive care WING RODRIGUEZ MD Mar 15, 2019 18:08
[2019-03-15 19:00] VITALS: BP 144/75
[2019-03-15] MEDS: ATORVASTATIN CALCIUM 40 MG TABLET. PO SCH (21:30)
[2019-03-15 23:04] VITALS: BP 124/70
[2019-03-16 03:00] VITALS: BP 118/60
[2019-03-16] MEDS: IV NORMAL SALINE 1000ML BAG 1,000 ML IV SCH (04:50)
[2019-03-16] MEDS: PIPERACILLIN/TAZOBACTAM 3.375 GM in IV NORMAL SALINE 50ML 50 ML IV SCH ×2 (05:19→11:31)
[2019-03-16 07:00] VITALS: BP 128/71
[2019-03-16] MEDS: GABAPENTIN 300 MG CAPSULE. PO SCH ×2 (08:50→14:05)
[2019-03-16] MEDS: VANCOMYCIN 125 MG/2.5 ML ORAL SOLUTION. PO SCH (08:50)
[2019-03-16] MEDS: METOPROLOL SUCC 24HR ER 50 MG TAB.ER.24H. PO SCH (08:51)
[2019-03-16] MEDS: OMEGA-3 FATTY ACIDS/FISH OIL 1,000 MG CAPSULE. PO SCH (08:51)
[2019-03-16] MEDS: amLODIPine BESYLATE 10 MG TABLET PO SCH (08:51)
[2019-03-16] MEDS: APIXABAN 5 MG TABLET. PO SCH (08:51)
[2019-03-16] MEDS: LACTOBACILLUS RHAMNOSUS GG 1 CAPSULE. PO SCH (08:52)
[2019-03-16] MEDS: LOSARTAN POTASSIUM 50 MG TABLET. PO SCH (08:52)
[2019-03-16 10:56] LABS: BASO # 0.1 x10^3/uL (0.0-0.2); BASO % 1 % (0-3); EOS # 0.3 x10^3/uL (0.0-0.7); EOS % 2 % (0-3); HEMATOCRIT 27.9 % (39.0-53.0); HEMOGLOBIN 9.4 g/dL (13.0-17.5); LYMPH # 0.6 x10^3/uL (1.0-4.8); LYMPH % 4 % (24-48); MEAN CORPUSCULAR HEMOGLOBIN 28 pg (25-35); MEAN CORPUSCULAR HGB CONC 34 g/dL (31-37); MEAN CORPUSCULAR VOLUME 84 fL (79-100); MONO # 0.7 x10^3/uL (0.0-1.1); MONO % 4 % (0-9); NEUT # 14.2 x10^3/uL (1.8-7.7); NEUT % 89 % (31-73); PLATELET COUNT 365 x10^3/uL (140-400); RED BLOOD COUNT 3.31 x10^6/uL (4.30-5.70); RED CELL DISTRIBUTION WIDTH 15.5 % (11.5-14.5); WHITE BLOOD COUNT 15.9 x10^3/uL (4.0-11.0)
[2019-03-16 11:11] LABS: CALCIUM 8.2 mg/dL (8.5-10.1); CREATININE 0.6 mg/dL (0.7-1.3); GFR 134.8; POTASSIUM 3.4 mmol/L (3.5-5.1)
--- NOTE | 2019-03-16 11:16 | NUR ---
[facility] Mallory at [phone] called at [phone] to give report, RN not available and will call back.
--- NOTE | 2019-03-16 11:21 | PDOC ---
PROGRESS NOTES Chief Complaint Chief Complaint discharge dx Multiple nonhealing pressure wounds involving sacrococcygeal, left ischium and bilateral heels with necrotic tissue and malodor Sepsis - likely 2/2 coccygeal wound History of recurrent Clostridium difficile diarrhea, Neurogenic bladder requiring self-catheterizations Transverse myelitis with subsequent paraplegia - on high dose steroids on 02/12 - 12/27 MRI L/S C/W Progression in both signal intensity and superior extent of diffusely History of pulmonary embolism. mod-severe protein calorie malnutrition MORBID OBESITY Anemia - likely of chronic inflammation Hypokalemia Lactic acidosis dr BARAHONA [facility] 33 MIN PT EXAM, CHART REVIEW d/c planning , > 50% OF TIME SPENT WITH EXAM, CHART REVIEW, PT CARE COORDINATION History of Present Illness History of Present Illness Mr Rust is a 64-year-old male with PMHx recent PE, transverse myelitis with paraplegia, neurogenic bladder, and multiple pressure wounds, who [facility] for possible sepsis and debridement of wounds. Over the last 2 months or so, he has had off and on chills/shakes and over the past 2 weeks, fevers, ranging from 101-106 degrees. He was just treated with high dose steroids outpatient for progression of his transverse myelitis and has been seen by his PCP, Dr. Artis on 03/11, had blood cultures taken and was seen in wound clinic on 03/13 and directly admitted to [facility]. He also has recurrent Clostridium difficile infection (07/2018 and 11/2018) still on a taper of oral vancomycin and h/o e. coli UTI (self-caths up to 6 times daily). 03/14: Overnight with fever 100.6F. Plans to go to OR for further backside debr bee, however, I did let him eat. MRI - 1. Large ulcers sinus tracts in the left inferior buttock and in the midline buttock region as described above. These 2 ulcers appear to be interconnected. Findings suspicious for osteomyelitis of the left ischium and the distal coccyx deep to the ulcers. 2. 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 Today he is pain free, does have occasional chills, denies CP and SOB. Plan: Will await neuro recs on whether he needs further acute treatment for transverse myelitis F/u surgery recs, may need I&D of gluteal wound and likely diverting colostomy Outpatient referral to plastics vs transfer to [facility] Vitals Vitals Vital Signs Date Time Temp Pulse Resp B/P (MAP) Pulse Ox O2 Delivery O2 Flow Rate FiO2 03/16/19 08:52 71 128/71 03/16/19 08:00 Room Air 03/16/19 07:00 98.6 18 94 98.6 Physical Exam Physical Exam GENERAL: Propped up in bed, alert, HEENT: Pupils equally round, reactive. Normal conjunctivae. Oropharynx pink and moist. No lesions seen. NECK: Supple. LUNGS: Clear to auscultation. HEART: S1, S2. ABDOMEN: Obese, soft, nontender with bowel sounds present. EXTREMITIES: No gross edema or cyanosis. SKIN: Warm to touch without signs of rash. Multiple pressure wounds involving sacrococcygeal, left ischial and bilateral heels with necrotic tissue, foul odor and undetermined depth. NEUROLOGIC: Alert and oriented x 3. Paraplegic without sensation or movement in the lower extremities. General: Alert, Oriented X3, Cooperative, No acute distress Heart: Regular rate, Normal S1, Normal S2 Lungs: Clear Abdomen: Normal bowel sounds, Soft, No tenderness Extremities: Other (atrophy ) Skin: Other (sacral decub wound deep, eschar seen) Labs LABS Laboratory Tests Test 03/16/19 10:30 White Blood Count 15.9 x10^3/uL (4.0-11.0) Red Blood Count 3.31 x10^6/uL (4.30-5.70) Hemoglobin 9.4 g/dL (13.0-17.5) Hematocrit 27.9 % (39.0-53.0) Mean Corpuscular Volume 84 fL (79-100) Mean Corpuscular Hemoglobin 28 pg (25-35) Mean Corpuscular Hemoglobin Concent 34 g/dL (31-37) Red Cell Distribution Width 15.5 % (11.5-14.5) Platelet Count 365 x10^3/uL (140-400) Neutrophils (%) (Auto) 89 % (31-73) Lymphocytes (%) (Auto) 4 % (24-48) Monocytes (%) (Auto) 4 % (0-9) Eosinophils (%) (Auto) 2 % (0-3) Basophils (%) (Auto) 1 % (0-3) Neutrophils # (Auto) 14.2 x10^3/uL (1.8-7.7) Lymphocytes # (Auto) 0.6 x10^3/uL (1.0-4.8) Monocytes # (Auto) 0.7 x10^3/uL (0.0-1.1) Eosinophils # (Auto) 0.3 x10^3/uL (0.0-0.7) Basophils # (Auto) 0.1 x10^3/uL (0.0-0.2) Sodium Level 142 mmol/L (136-145) Potassium Level 3.4 mmol/L (3.5-5.1) Chloride Level 107 mmol/L (98-107) Carbon Dioxide Level 25 mmol/L (21-32) Anion Gap 10 (6-14) Blood Urea Nitrogen 9 mg/dL (8-26) Creatinine 0.6 mg/dL (0.7-1.3) Estimated GFR (Cockcroft-Gault) 134.8 Glucose Level 148 mg/dL (70-99) Calcium Level 8.2 mg/dL (8.5-10.1) Comment Review of Relevant I have reviewed the following items franc (where applicable) has been applied. Labs Laboratory Tests Test 03/15/19 06:20 03/16/19 10:30 White Blood Count 13.4 x10^3/uL (4.0-11.0) 15.9 x10^3/uL (4.0-11.0) Red Blood Count 3.23 x10^6/uL (4.30-5.70) 3.31 x10^6/uL (4.30-5.70) Hemoglobin 9.3 g/dL (13.0-17.5) 9.4 g/dL (13.0-17.5) Hematocrit 27.5 % (39.0-53.0) 27.9 % (39.0-53.0) Mean Corpuscular Volume 85 fL (79-100) 84 fL (79-100) Mean Corpuscular Hemoglobin 29 pg (25-35) 28 pg (25-35) Mean Corpuscular Hemoglobin Concent 34 g/dL (31-37) 34 g/dL (31-37) Red Cell Distribution Width 15.6 % (11.5-14.5) 15.5 % (11.5-14.5) Platelet Count 364 x10^3/uL (140-400) 365 x10^3/uL (140-400) Neutrophils (%) (Auto) 82 % (31-73) 89 % (31-73) Lymphocytes (%) (Auto) 9 % (24-48) 4 % (24-48) Monocytes (%) (Auto) 7 % (0-9) 4 % (0-9) Eosinophils (%) (Auto) 2 % (0-3) 2 % (0-3) Basophils (%) (Auto) 0 % (0-3) 1 % (0-3) Neutrophils # (Auto) 11.0 x10^3/uL (1.8-7.7) 14.2 x10^3/uL (1.8-7.7) Lymphocytes # (Auto) 1.2 x10^3/uL (1.0-4.8) 0.6 x10^3/uL (1.0-4.8) Monocytes # (Auto) 0.9 x10^3/uL (0.0-1.1) 0.7 x10^3/uL (0.0-1.1) Eosinophils # (Auto) 0.3 x10^3/uL (0.0-0.7) 0.3 x10^3/uL (0.0-0.7) Basophils # (Auto) 0.1 x10^3/uL (0.0-0.2) 0.1 x10^3/uL (0.0-0.2) Sodium Level 144 mmol/L (136-145) 142 mmol/L (136-145) Potassium Level 3.3 mmol/L (3.5-5.1) 3.4 mmol/L (3.5-5.1) Chloride Level 110 mmol/L (98-107) 107 mmol/L (98-107) Carbon Dioxide Level 25 mmol/L (21-32) 25 mmol/L (21-32) Anion Gap 9 (6-14) 10 (6-14) Blood Urea Nitrogen 8 mg/dL (8-26) 9 mg/dL (8-26) Creatinine 0.5 mg/dL (0.7-1.3) 0.6 mg/dL (0.7-1.3) Estimated GFR (Cockcroft-Gault) 166.4 134.8 Glucose Level 108 mg/dL (70-99) 148 mg/dL (70-99) Calcium Level 8.1 mg/dL (8.5-10.1) 8.2 mg/dL (8.5-10.1) Laboratory Tests Test 03/16/19 10:30 White Blood Count 15.9 x10^3/uL (4.0-11.0) Red Blood Count 3.31 x10^6/uL (4.30-5.70) Hemoglobin 9.4 g/dL (13.0-17.5) Hematocrit 27.9 % (39.0-53.0) Mean Corpuscular Volume 84 fL (79-100) Mean Corpuscular Hemoglobin 28 pg (25-35) Mean Corpuscular Hemoglobin Concent 34 g/dL (31-37) Red Cell Distribution Width 15.5 % (11.5-14.5) Platelet Count 365 x10^3/uL (140-400) Neutrophils (%) (Auto) 89 % (31-73) Lymphocytes (%) (Auto) 4 % (24-48) Monocytes (%) (Auto) 4 % (0-9) Eosinophils (%) (Auto) 2 % (0-3) Basophils (%) (Auto) 1 % (0-3) Neutrophils # (Auto) 14.2 x10^3/uL (1.8-7.7) Lymphocytes # (Auto) 0.6 x10^3/uL (1.0-4.8) Monocytes # (Auto) 0.7 x10^3/uL (0.0-1.1) Eosinophils # (Auto) 0.3 x10^3/uL (0.0-0.7) Basophils # (Auto) 0.1 x10^3/uL (0.0-0.2) Sodium Level 142 mmol/L (136-145) Potassium Level 3.4 mmol/L (3.5-5.1) Chloride Level 107 mmol/L (98-107) Carbon Dioxide Level 25 mmol/L (21-32) Anion Gap 10 (6-14) Blood Urea Nitrogen 9 mg/dL (8-26) Creatinine 0.6 mg/dL (0.7-1.3) Estimated GFR (Cockcroft-Gault) 134.8 Glucose Level 148 mg/dL (70-99) Calcium Level 8.2 mg/dL (8.5-10.1) Microbiology 03/14/19 - Final, Resulted 03/14/19 - Final, Resulted 03/14/19 - Final, Resulted 03/14/19 - Final, Resulted 03/14/19 - Final, Resulted 03/14/19 - Final, Resulted 03/14/19 Gram Stain Evaluation - Final, Resulted 03/14/19 Sputum Culture, Resulted Pending 03/13/19 Urine Culture - Preliminary, Resulted 03/13/19 Urine Culture Result 1 (LUIS M) - Preliminary, Resulted 03/13/19 Blood Culture - Preliminary, Resulted NO GROWTH AFTER 2 DAYS Medications Current Medications Sodium Chloride 1,000 ml @ 80 mls/hr [id number] IV Last administered on 03/13/19at 13:45; Start 03/13/19 at 13:45; Stop 03/13/19 at 17:48; Status DC Vancomycin HCl (Vanco Per Pharmacy) 1 each PRN DAILY PRN MC SEE COMMENTS Last administered on 03/15/19at 10:22; Start 03/13/19 at 13:30 Piperacillin Sod/ Tazobactam Sod 3.375 gm/Sodium Chloride 50 ml @ 100 mls/hr Q6HRS IV Last administered on 03/16/19at 05:19; Start 03/13/19 at 14:00 Vancomycin HCl 2 gm/Sodium Chloride 500 ml @ 250 mls/hr 1X ONCE IV Last administered on 03/13/19 14:20; Start 03/13/19 at 15:00; Stop 03/13/19 at 16:59; Status DC Micafungin Sodium 100 mg/Dextrose 100 ml @ 100 mls/hr Q24H IV Last administered on 03/15/19at 16:48; Start 03/13/19 at 16:00 Vancomycin HCl (Vancomycin Oral Solution) 125 mg BID PO Last administered on 03/16/19at 08:50; Start 03/13/19 at 16:00 Acetaminophen (Tylenol) 650 mg PRN Q6HRS PRN PO FEVER Last administered on 03/13/19at 16:26; Start 03/13/19 at 16:15; Stop 03/13/19 at 17:48; Status DC Vancomycin HCl 1.75 gm/Sodium Chloride 500 ml @ 250 mls/hr Q12H IV Last administered on 03/15/19at 22:54; Start 03/14/19 at 02:00 Vancomycin HCl (Vancomycin Trough Level) 1 each 1X ONCE MC ; Start 03/15/19 at 13:00; Stop 03/15/19 at 13:01; Status Cancel Apixaban (Eliquis) 5 mg BID PO Last administered on 03/16/19at 08:51; Start 03/13/19 at 21:00 Gabapentin (Neurontin) 300 mg TID PO Last administered on 03/16/19at 08:50; Start 03/13/19 at 21:00 Oxycodone/ Acetaminophen (Percocet 5/325) 1 tab PRN Q6HRS PRN PO MODERATE PAIN; Start 03/13/19 at 16:45 Oxycodone/ Acetaminophen (Percocet 5/325) 2 tab PRN Q4HRS PRN PO SEVERE PAIN 7- 10; Start 03/13/19 at 16:45 Amlodipine Besylate (Norvasc) 10 mg DAILY PO Last administered on 03/16/19at 08:51; Start 03/14/19 at 09:00 Non-Formulary Medication (Digestive Enzymes Combo No.7 (Superior Digestive Enzyme)) 1 each BID PO ; Start 03/13/19 at 21:00; Stop 03/13/19 at 17:13; Status DC Non-Formulary Medication (Glucosamine Sulfate 2KCL (Glucosamine)) 500 mg BID PO ; Start 03/13/19 at 21:00; Stop 03/13/19 at 17:13; Status DC Non-Formulary Medication (Lecithin, Soy (Lecithin)) 518 mg TID PO ; Start 03/13/19 at 21:00; Status UNV Metoprolol Succinate (Toprol Xl) 50 mg DAILY PO Last administered on 03/16/19at 08:51; Start 03/14/19 at 09:00 Fish Oil (Fish Oil) 1,000 mg DAILY PO Last administered on 03/16/19at 08:51; Start 03/14/19 at 09:00 Atorvastatin Calcium (Lipitor) 40 mg QHS PO Last administered on 03/15/19at 21:30; Start 03/13/19 at 21:00 Sodium Chloride (Normal Saline Flush) 3 ml QSHIFT PRN IV AFTER MEDS AND BLOOD DRAWS; Start 03/13/19 at 16:45 Sodium Chloride 1,000 ml @ 100 mls/hr Q10H IV Last administered on 03/16/19at 04:50; Start 03/13/19 at 16:41 Ondansetron HCl (Zofran) 4 mg PRN Q4HRS PRN IV NAUSEA/VOMITING; Start 03/13/19 at 16:45 Zolpidem Tartrate (Ambien) 5 mg PRN QHS PRN PO INSOMNIA; Start 03/13/19 at 16:45 Acetaminophen (Tylenol) 650 mg PRN Q4HRS PRN PO TEMP OVER 100.4F OR MILD PAIN Last administered on 03/15/19at 23:50; Start 03/13/19 at 16:45 Clonidine HCl (Catapres) 0.1 mg PRN Q6HRS PRN PO SBP>160 OR DBP>90; Start 03/13/19 at 16:45 Docusate Sodium (Colace) 100 mg PRN BID PRN PO CONSTIPATION; Start 03/13/19 at 16:45 Albuterol Sulfate (Ventolin Neb Soln) 2.5 mg PRN Q4HRS PRN NEB SHORTNESS OF BREATH; Start 03/13/19 at 16:45 Guaifenesin (Robitussin) 200 mg PRN Q4HRS PRN PO COUGH; Start 03/13/19 at 16:45 Lorazepam (Ativan) 0.5 mg PRN Q4HRS PRN PO ANXIETY / AGITATION; Start 03/13/19 at 16:45 Hydromorphone HCl (Dilaudid) 1 mg PRN Q2HRS PRN IV SEVERE PAIN 7-10; Start 03/13/19 at 16:45 Sodium Chloride 1,000 ml @ 2,340 mls/hr Q26M IV Last administered on 03/13/19at 22:12; Start 03/13/19 at 16:44; Stop 03/13/19 at 17:45; Status DC Sodium Chloride 500 ml @ 1,000 mls/hr PRN Q30MIN PRN IV SEE COMMENTS; Start 03/13/19 at 16:45 Losartan Potassium (Cozaar) 100 mg DAILY PO Last administered on 03/16/19at 08:52; Start 03/14/19 at 09:00 Potassium Chloride (Klor-Con) 40 meq 1X ONCE PO Last administered on 03/14/19at 09:27; Start 03/14/19 at 09:30; Stop 03/14/19 at 09:31; Status DC Info (Anti-Coagulation Monitoring By Pharmacy) 1 each PRN DAILY PRN MC SEE COMMENTS Last administered on 03/15/19at 10:19; Start 03/14/19 at 11:15 Lactobacillus Rhamnosus (Culturelle) 1 cap BID PO Last administered on 03/16/19at 08:52; Start 03/14/19 at 12:15 Gadoterate Meglumine (Dotarem) 20 ml 1X ONCE IVP Last administered on 03/14/19at 12:40; Start 03/14/19 at 14:00; Stop 03/14/19 at 14:01; Status DC Ondansetron HCl (Zofran) 4 mg PRN Q6HRS PRN IV NAUSEA/VOMITING; Start 03/17/19 at 07:00; Stop 03/18/19 at 06:59 Fentanyl Citrate (Fentanyl 2ml Vial) 25 mcg PRN Q5MIN PRN IV MILD PAIN 1-3; Start 03/17/19 at 07:00; Stop 03/18/19 at 06:59 Fentanyl Citrate (Fentanyl 2ml Vial) 50 mcg PRN Q5MIN PRN IV MODERATE TO SEVERE PAIN; Start 03/17/19 at 07:00; Stop 03/18/19 at 06:59 Morphine Sulfate (Morphine Sulfate) 1 mg PRN Q10MIN PRN IV SEVERE PAIN 7-10; Start 03/17/19 at 07:00; Stop 03/18/19 at 06:59 Ringer's Solution 1,000 ml @ 30 mls/hr Q24H IV ; Start 03/17/19 at 07:00; Stop 03/17/19 at 18:59 Lidocaine HCl (Xylocaine-Mpf 1% 2ml Vial) 2 ml PRN 1X PRN ID PRIOR TO IV START; Start 03/17/19 at 07:00; Stop 03/18/19 at 06:59 Hydromorphone HCl (Dilaudid) 0.5 mg PRN Q10MIN PRN IV SEV PAIN, Second choice; Start 03/17/19 at 07:00; Stop 03/18/19 at 06:59 Prochlorperazine Edisylate (Compazine) 5 mg PACU PRN PRN IV NAUSEA, MRX1; Start 03/17/19 at 07:00; Stop 03/18/19 at 06:59 Vancomycin HCl (Vancomycin Trough Level) 1 each 1X ONCE MC ; Start 03/16/19 at 10:30; Stop 03/16/19 at 10:31; Status DC Active Scripts Active Reported Lasix (Furosemide) 40 Mg Tablet 1 Tab PO BID Vancomycin Hcl 125 Mg Capsule 125 Mg PO QODAY Percocet 5-325 Mg Tablet (Oxycodone/Acetaminophen) 1 Each Tablet 1 Tab PO PRN Q6HRS PRN [place]-3 350 mg Cap ([place]-3S/Dha/Epa/Fish Oil) 350 Mg Capsule 350 Mg PO DAILY Lecithin (Lecithin, Soy) 400 Mg Capsule 518 Mg PO TID Saw [place] (Saw [place] Fruit) 450 Mg Capsule 160 Mg PO DAILY Liver Complex Tablet (Milk Thistle/Nac/Dandel/Turmer) 1 Each Tablet 1 Each PO BID Superior Digestive Enzyme (Digestive Enzymes Combo No.7) 1 Each Capsule 1 Each PO BID Xarelto (Rivaroxaban) 20 Mg Tablet 20 Mg PO DAILY Eliquis (Apixaban) 5 Mg Tablet 5 Mg PO BID Glucosamine (Glucosamine Sulfate 2KCL) 1,000 Mg Tablet 500 Mg PO BID Exforge 10-320 Mg Tablet (Amlodipine/Valsartan) 1 Each Tablet 1 Tab PO DAILY Gabapentin (Gabapentin) 300 Mg Capsule 300 Mg PO TID Percocet 5-325 Mg Tablet (Oxycodone/Acetaminophen) 1 Each Tablet 1-2 Tab PO Q4-6HRS Crestor (Rosuvastatin Calcium) 10 Mg Tablet 1 Tab PO DAILY Toprol Xl (Metoprolol Succinate) 50 Mg Tab.er.24h 1 Tab PO DAILY Vitals/I & O Vital Sign - Last 24 Hours 10/5/19 10/5/19 10/5/19 10/5/19 14:53 19:00 19:30 23:04 Temp 97.9 98.5 102.9 97.9 98.5 102.9 Pulse 59 106 102 Resp 18 20 20 B/P (MAP) 125/47 (73) 144/75 (98) 124/70 (88) Pulse Ox 91 94 92 O2 Delivery Room Air Room Air Room Air Room Air 03/16/19 03/16/19 03/16/19 03/16/19 03:00 07:00 08:00 08:51 Temp 98.2 98.6 98.2 98.6 Pulse 87 71 71 Resp 20 18 B/P (MAP) 118/60 (79) 128/71 (90) 128/71 Pulse Ox 97 94 O2 Delivery Room Air Room Air Room Air 03/16/19 03/16/19 08:51 08:52 Pulse 71 71 B/P (MAP) 128/71 128/71 Intake and Output 0 03/15/19 03/15/19 03/16/19 15:00 23:00 07:00 Intake Total 860 ml 600 ml Output Total 2800 ml Balance 860 ml 600 ml -2800 ml RYLIE ARVIZU MD Mar 16, 2019 11:21
[2019-03-16 11:24] LABS: VANC TR 13.5 mcg/mL (10.0-20.0)
--- NOTE | 2019-03-16 11:35 | NUR ---
Patient vanco trough 13.5, [facility] states continue current dose, will hang after zosyn infused, patient verb. understanding POC. Wounds measured and pictured. Report called to Cata QUISPE at [facility] at [phone]. To infuse vancomycin prior to discharge. Will notify nursing hand cigar making supervisor for transport. Patient verb. understanding POC. See orders, notes and nursing communication.
[2019-03-16 11:45] VITALS: BP 145/74
[2019-03-16] MEDS: VANCOMYCIN 1.75 GM in IV NORMAL SALINE 500ML BAG 500 ML IV SCH (12:04)
--- NOTE | 2019-03-16 12:15 | NUR ---
Mirta Dueñas. Super notified for transport for patient discharge to [facility]. Patient vancomycin infusing now, to notify her when infusion completed. Patient and Danette kwok. understanding POC.
--- NOTE | 2019-03-16 13:01 | PDOC ---
Provider Note Provider Note SURG Saw Mr Rust and his in his room scheduled for tx to [facility] later this afternoon WING RODRIGUEZ MD Mar 16, 2019 13:00
--- NOTE | 2019-03-16 14:00 | NUR ---
Nursing Circulating Process Inspector Mirta notified for transport and patient and verb. understanding to [facility] p/u per EMS atr 1500.
--- NOTE | 2019-03-16 14:17 | PDOC3 ---
Discharge Summary Date of Admission: Mar 13, 2019 Date of Discharge: Mar 16, 2019 Follow-Up: 1-2 days Admitting Diagnosis comment: discharge dx // TRANSFER DX Multiple nonhealing pressure wounds involving sacrococcygeal, left ischium and bilateral heels with necrotic tissue and malodor Sepsis - likely 2/2 coccygeal wound History of recurrent Clostridium difficile diarrhea, Neurogenic bladder requiring self-catheterizations Transverse myelitis with subsequent paraplegia - on high dose steroids on 02/12 - 12/27 MRI L/S C/W Progression in both signal intensity and superior extent of diffusely History of pulmonary embolism. mod-severe protein calorie malnutrition MORBID OBESITY Anemia - likely of chronic inflammation Hypokalemia Lactic acidosis dr BARAHONA [facility] 33 MIN PT EXAM, CHART REVIEW d/c planning , > 50% OF TIME SPENT WITH EXAM, CHART REVIEW, PT CARE COORDINATION History of Present Illness History of Present Illness Mr Rust is a 64-year-old male with PMHx recent PE, transverse myelitis with paraplegia, neurogenic bladder, and multiple pressure wounds, who [facility] possible sepsis and debridement of wounds. Over the last 2 months or so, he has had off and on chills/shakes and over the past 2 weeks, fevers, ranging from 101-106 degrees. He was just treated with high dose steroids outpatient for progression of his transverse myelitis and has been seen by his PCP, Dr. Artis on 03/11, had blood cultures taken and was seen in wound clinic on 03/13 and directly admitted to [facility]. He also has recurrent Clostridium difficile infection (07/2018 and 11/2018) still on a taper of oral vancomycin and h/o e. coli UTI (self-caths up to 6 times daily). 03/14: Overnight with fever 100.6F. Plans to go to OR for further backside debride, however, I did let him eat. MRI - 1. Large ulcers sinus tracts in the left inferior buttock and in the midline buttock region as described above. These 2 ulcers appear to be interconnected. Findings suspicious for osteomyelitis of the left ischium and the distal coccyx deep to the ulcers. 2. 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 Today he is pain free, does have occasional chills, denies CP and SOB. Plan: Will await neuro recs on whether he needs further acute treatment for transverse myelitis F/u surgery recs, may need I&D of gluteal wound and likely diverting colostomy Outpatient referral to plastics vs transfer to [facility] Vitals Vitals Vital Signs Date Time Temp Pulse Resp B/P (MAP) Pulse Ox O2 Delivery O2 Flow Rate FiO2 03/16/19 08:52 71 128/71 03/16/19 08:00 Room Air 03/16/19 07:00 98.6 18 94 98.6 Physical Exam Physical Exam GENERAL: Propped up in bed, alert, HEENT: Pupils equally round, reactive. Normal conjunctivae. Oropharynx pink and moist. No lesions seen. NECK: Supple. LUNGS: Clear to auscultation. HEART: S1, S2. ABDOMEN: Obese, soft, nontender with bowel sounds present. EXTREMITIES: No gross edema or cyanosis. SKIN: Warm to touch without signs of rash. Multiple pressure wounds involving sacrococcygeal, left ischial and bilateral heels with necrotic tissue, foul odor and undetermined depth. NEUROLOGIC: Alert and oriented x 3. Paraplegic without sensation or movement in the lower extremities. General: Alert, Oriented X3, Cooperative, No acute distress Heart: Regular rate, Normal S1, Normal S2 Lungs: Clear Abdomen: Normal bowel sounds, Soft, No tenderness Extremities: Other (atrophy ) Skin: Other (sacral decub wound deep, eschar seen) Brief Hospital Course Mr. Rust is a 64 old [sex] who presented with [ SEPSIS] CONDITION AT DISCHARGE: Improved Discharge Medications Current Medications Sodium Chloride 1,000 ml @ 80 mls/hr [id number] IV Last administered on 03/13/19at 13:45; Start 03/13/19 at 13:45; Stop 03/13/19 at 17:48; Status DC Vancomycin HCl (Vanco Per Pharmacy) 1 each PRN DAILY PRN MC SEE COMMENTS Last administered on 03/15/19at 10:22; Start 03/13/19 at 13:30 Piperacillin Sod/ Tazobactam Sod 3.375 gm/Sodium Chloride 50 ml @ 100 mls/hr Q6HRS IV Last administered on 03/16/19 11:31; Start 03/13/19 at 14:00 Vancomycin HCl 2 gm/Sodium Chloride 500 ml @ 250 mls/hr 1X ONCE IV Last administered on 03/13/19at 14:20; Start 03/13/19 at 15:00; Stop 03/13/19 at 16:59; Status DC Micafungin Sodium 100 mg/Dextrose 100 ml @ 100 mls/hr Q24H IV Last administered on 03/15/19 16:48; Start 03/13/19 at 16:00 Vancomycin HCl (Vancomycin Oral Solution) 125 mg BID PO Last administered on 03/16/19 08:50; Start 03/13/19 at 16:00 Acetaminophen (Tylenol) 650 mg PRN Q6HRS PRN PO FEVER Last administered on 03/13/19 16:26; Start 03/13/19 at 16:15; Stop 03/13/19 at 17:48; Status DC Vancomycin HCl 1.75 gm/Sodium Chloride 500 ml @ 250 mls/hr Q12H IV Last administered on 03/16/19at 12:04; Start 03/14/19 at 02:00 Vancomycin HCl (Vancomycin Trough Level) 1 each 1X ONCE MC ; Start 03/15/19 at 13:00; Stop 03/15/19 at 13:01; Status Cancel Apixaban (Eliquis) 5 mg BID PO Last administered on 03/16/19 08:51; Start 03/13/19 at 21:00 Gabapentin (Neurontin) 300 mg TID PO Last administered on 03/16/19at 14:05; Start 03/13/19 at 21:00 Oxycodone/ Acetaminophen (Percocet 5/325) 1 tab PRN Q6HRS PRN PO MODERATE PAIN; Start 03/13/19 at 16:45 Oxycodone/ Acetaminophen (Percocet 5/325) 2 tab PRN Q4HRS PRN PO SEVERE PAIN 7- 10; Start 03/13/19 at 16:45 Amlodipine Besylate (Norvasc) 10 mg DAILY PO Last administered on 03/16/19 08:51; Start 03/14/19 at 09:00 Non-Formulary Medication (Digestive Enzymes Combo No.7 (Superior Digestive Enzyme)) 1 each BID PO ; Start 03/13/19 at 21:00; Stop 03/13/19 at 17:13; Status DC Non-Formulary Medication (Glucosamine Sulfate 2KCL (Glucosamine)) 500 mg BID PO ; Start 03/13/19 at 21:00; Stop 03/13/19 at 17:13; Status DC Non-Formulary Medication (Lecithin, Soy (Lecithin)) 518 mg TID PO ; Start 03/13/19 at 21:00; Status UNV Metoprolol Succinate (Toprol Xl) 50 mg DAILY PO Last administered on 03/16/19at 08:51; Start 03/14/19 at 09:00 Fish Oil (Fish Oil) 1,000 mg DAILY PO Last administered on 03/16/19at 08:51; Start 03/14/19 at 09:00 Atorvastatin Calcium (Lipitor) 40 mg QHS PO Last administered on 03/15/19at 21:30; Start 03/13/19 at 21:00 Sodium Chloride (Normal Saline Flush) 3 ml QSHIFT PRN IV AFTER MEDS AND BLOOD DRAWS; Start 03/13/19 at 16:45 Sodium Chloride 1,000 ml @ 100 mls/hr Q10H IV Last administered on 03/16/19at 04:50; Start 03/13/19 at 16:41 Ondansetron HCl (Zofran) 4 mg PRN Q4HRS PRN IV NAUSEA/VOMITING; Start 03/13/19 at 16:45 Zolpidem Tartrate (Ambien) 5 mg PRN QHS PRN PO INSOMNIA; Start 03/13/19 at 16:45 Acetaminophen (Tylenol) 650 mg PRN Q4HRS PRN PO TEMP OVER 100.4F OR MILD PAIN Last administered on 03/15/19at 23:50; Start 03/13/19 at 16:45 Clonidine HCl (Catapres) 0.1 mg PRN Q6HRS PRN PO SBP>160 OR DBP>90; Start 03/13/19 at 16:45 Docusate Sodium (Colace) 100 mg PRN BID PRN PO CONSTIPATION; Start 03/13/19 at 16:45 Albuterol Sulfate (Ventolin Neb Soln) 2.5 mg PRN Q4HRS PRN NEB SHORTNESS OF BREATH; Start 03/13/19 at 16:45 Guaifenesin (Robitussin) 200 mg PRN Q4HRS PRN PO COUGH; Start 03/13/19 at 16:45 Lorazepam (Ativan) 0.5 mg PRN Q4HRS PRN PO ANXIETY / AGITATION; Start 03/13/19 at 16:45 Hydromorphone HCl (Dilaudid) 1 mg PRN Q2HRS PRN IV SEVERE PAIN 7-10; Start 03/13/19 at 16:45 Sodium Chloride 1,000 ml @ 2,340 mls/hr Q26M IV Last administered on 03/13/19at 22:12; Start 03/13/19 at 16:44; Stop 03/13/19 at 17:45; Status DC Sodium Chloride 500 ml @ 1,000 mls/hr PRN Q30MIN PRN IV SEE COMMENTS; Start 03/13/19 at 16:45 Losartan Potassium (Cozaar) 100 mg DAILY PO Last administered on 03/16/19at 08:52; Start 03/14/19 at 09:00 Potassium Chloride (Klor-Con) 40 meq 1X ONCE PO Last administered on 03/14/19at 09:27; Start 03/14/19 at 09:30; Stop 03/14/19 at 09:31; Status DC Info (Anti-Coagulation Monitoring By Pharmacy) 1 each PRN DAILY PRN MC SEE COMMENTS Last administered on 03/15/19at 10:19; Start 03/14/19 at 11:15 Lactobacillus Rhamnosus (Culturelle) 1 cap BID PO Last administered on 03/16/19at 08:52; Start 03/14/19 at 12:15 Gadoterate Meglumine (Dotarem) 20 ml 1X ONCE IVP Last administered on 03/14/19at 12:40; Start 03/14/19 at 14:00; Stop 03/14/19 at 14:01; Status DC Ondansetron HCl (Zofran) 4 mg PRN Q6HRS PRN IV NAUSEA/VOMITING; Start 03/17/19 at 07:00; Stop 03/18/19 at 06:59 Fentanyl Citrate (Fentanyl 2ml Vial) 25 mcg PRN Q5MIN PRN IV MILD PAIN 1-3; Start 03/17/19 at 07:00; Stop 03/18/19 at 06:59 Fentanyl Citrate (Fentanyl 2ml Vial) 50 mcg PRN Q5MIN PRN IV MODERATE TO SEVERE PAIN; Start 03/17/19 at 07:00; Stop 03/18/19 at 06:59 Morphine Sulfate (Morphine Sulfate) 1 mg PRN Q10MIN PRN IV SEVERE PAIN 7-10; Start 03/17/19 at 07:00; Stop 03/18/19 at 06:59 Ringer's Solution 1,000 ml @ 30 mls/hr Q24H IV ; Start 03/17/19 at 07:00; Stop 03/17/19 at 18:59 Lidocaine HCl (Xylocaine-Mpf 1% 2ml Vial) 2 ml PRN 1X PRN ID PRIOR TO IV START; Start 03/17/19 at 07:00; Stop 03/18/19 at 06:59 Hydromorphone HCl (Dilaudid) 0.5 mg PRN Q10MIN PRN IV SEV PAIN, Second choice; Start 03/17/19 at 07:00; Stop 03/18/19 at 06:59 Prochlorperazine Edisylate (Compazine) 5 mg PACU PRN PRN IV NAUSEA, MRX1; Start 03/17/19 at 07:00; Stop 03/18/19 at 06:59 Vancomycin HCl (Vancomycin Trough Level) 1 each 1X ONCE MC ; Start 03/16/19 at 10:30; Stop 03/16/19 at 10:31; Status DC Active Scripts Active Reported Lasix (Furosemide) 40 Mg Tablet 1 Tab PO BID Vancomycin Hcl 125 Mg Capsule 125 Mg PO QODAY Percocet 5-325 Mg Tablet (Oxycodone/Acetaminophen) 1 Each Tablet 1 Tab PO PRN Q6HRS PRN Gove Blue Callender-3 350 mg Cap (Callender-3S/Dha/Epa/Fish Oil) 350 Mg Capsule 350 Mg PO DAILY Lecithin (Lecithin, Soy) 400 Mg Capsule 518 Mg PO TID Saw Drury (Saw Drury Fruit) 450 Mg Capsule 160 Mg PO DAILY Liver Complex Tablet (Milk Thistle/Nac/Dandel/Turmer) 1 Each Tablet 1 Each PO BID Superior Digestive Enzyme (Digestive Enzymes Combo No.7) 1 Each Capsule 1 Each PO BID Xarelto (Rivaroxaban) 20 Mg Tablet 20 Mg PO DAILY Eliquis (Apixaban) 5 Mg Tablet 5 Mg PO BID Glucosamine (Glucosamine Sulfate 2KCL) 1,000 Mg Tablet 500 Mg PO BID Exforge 10-320 Mg Tablet (Amlodipine/Valsartan) 1 Each Tablet 1 Tab PO DAILY Gabapentin (Gabapentin) 300 Mg Capsule 300 Mg PO TID Percocet 5-325 Mg Tablet (Oxycodone/Acetaminophen) 1 Each Tablet 1-2 Tab PO Q4-6HRS Crestor (Rosuvastatin Calcium) 10 Mg Tablet 1 Tab PO DAILY Toprol Xl (Metoprolol Succinate) 50 Mg Tab.er.24h 1 Tab PO DAILY Vital Signs Vital Signs Date Time Temp Pulse Resp B/P (MAP) Pulse Ox O2 Delivery O2 Flow Rate FiO2 03/16/19 11:45 98.6 91 24 145/74 (97) 93 Room Air 98.6 Labs Laboratory Tests Test 03/15/19 06:20 03/16/19 10:30 White Blood Count 13.4 x10^3/uL (4.0-11.0) 15.9 x10^3/uL (4.0-11.0) Red Blood Count 3.23 x10^6/uL (4.30-5.70) 3.31 x10^6/uL (4.30-5.70) Hemoglobin 9.3 g/dL (13.0-17.5) 9.4 g/dL (13.0-17.5) Hematocrit 27.5 % (39.0-53.0) 27.9 % (39.0-53.0) Mean Corpuscular Volume 85 fL (79-100) 84 fL (79-100) Mean Corpuscular Hemoglobin 29 pg (25-35) 28 pg (25-35) Mean Corpuscular Hemoglobin Concent 34 g/dL (31-37) 34 g/dL (31-37) Red Cell Distribution Width 15.6 % (11.5-14.5) 15.5 % (11.5-14.5) Platelet Count 364 x10^3/uL (140-400) 365 x10^3/uL (140-400) Neutrophils (%) (Auto) 82 % (31-73) 89 % (31-73) Lymphocytes (%) (Auto) 9 % (24-48) 4 % (24-48) Monocytes (%) (Auto) 7 % (0-9) 4 % (0-9) Eosinophils (%) (Auto) 2 % (0-3) 2 % (0-3) Basophils (%) (Auto) 0 % (0-3) 1 % (0-3) Neutrophils # (Auto) 11.0 x10^3/uL (1.8-7.7) 14.2 x10^3/uL (1.8-7.7) Lymphocytes # (Auto) 1.2 x10^3/uL (1.0-4.8) 0.6 x10^3/uL (1.0-4.8) Monocytes # (Auto) 0.9 x10^3/uL (0.0-1.1) 0.7 x10^3/uL (0.0-1.1) Eosinophils # (Auto) 0.3 x10^3/uL (0.0-0.7) 0.3 x10^3/uL (0.0-0.7) Basophils # (Auto) 0.1 x10^3/uL (0.0-0.2) 0.1 x10^3/uL (0.0-0.2) Sodium Level 144 mmol/L (136-145) 142 mmol/L (136-145) Potassium Level 3.3 mmol/L (3.5-5.1) 3.4 mmol/L (3.5-5.1) Chloride Level 110 mmol/L (98-107) 107 mmol/L (98-107) Carbon Dioxide Level 25 mmol/L (21-32) 25 mmol/L (21-32) Anion Gap 9 (6-14) 10 (6-14) Blood Urea Nitrogen 8 mg/dL (8-26) 9 mg/dL (8-26) Creatinine 0.5 mg/dL (0.7-1.3) 0.6 mg/dL (0.7-1.3) Estimated GFR (Cockcroft-Gault) 166.4 134.8 Glucose Level 108 mg/dL (70-99) 148 mg/dL (70-99) Calcium Level 8.1 mg/dL (8.5-10.1) 8.2 mg/dL (8.5-10.1) Vancomycin Level Trough 13.5 mcg/mL (10.0-20.0) Vancomycin Last Dose Date 03/15/19 Vancomycin Last Dose Time 2300 Laboratory Tests Test 03/16/19 10:30 White Blood Count 15.9 x10^3/uL (4.0-11.0) Red Blood Count 3.31 x10^6/uL (4.30-5.70) Hemoglobin 9.4 g/dL (13.0-17.5) Hematocrit 27.9 % (39.0-53.0) Mean Corpuscular Volume 84 fL (79-100) Mean Corpuscular Hemoglobin 28 pg (25-35) Mean Corpuscular Hemoglobin Concent 34 g/dL (31-37) Red Cell Distribution Width 15.5 % (11.5-14.5) Platelet Count 365 x10^3/uL (140-400) Neutrophils (%) (Auto) 89 % (31-73) Lymphocytes (%) (Auto) 4 % (24-48) Monocytes (%) (Auto) 4 % (0-9) Eosinophils (%) (Auto) 2 % (0-3) Basophils (%) (Auto) 1 % (0-3) Neutrophils # (Auto) 14.2 x10^3/uL (1.8-7.7) Lymphocytes # (Auto) 0.6 x10^3/uL (1.0-4.8) Monocytes # (Auto) 0.7 x10^3/uL (0.0-1.1) Eosinophils # (Auto) 0.3 x10^3/uL (0.0-0.7) Basophils # (Auto) 0.1 x10^3/uL (0.0-0.2) Sodium Level 142 mmol/L (136-145) Potassium Level 3.4 mmol/L (3.5-5.1) Chloride Level 107 mmol/L (98-107) Carbon Dioxide Level 25 mmol/L (21-32) Anion Gap 10 (6-14) Blood Urea Nitrogen 9 mg/dL (8-26) Creatinine 0.6 mg/dL (0.7-1.3) Estimated GFR (Cockcroft-Gault) 134.8 Glucose Level 148 mg/dL (70-99) Calcium Level 8.2 mg/dL (8.5-10.1) Vancomycin Level Trough 13.5 mcg/mL (10.0-20.0) Vancomycin Last Dose Date 03/15/19 Vancomycin Last Dose Time 2300 Allergies Allergies Coded Allergies Type Severity Reaction Last Updated Verified I S O L A T I O N *CONTACT* Allergy Unknown 03/14/19 Yes No Known Medication Allergies Allergy Unknown 03/14/19 Yes Disposition/Orders: D/C to Another Facility Patient Instructions D/C PLANNING 33 MIN RYLIE ARVIZU MD Mar 16, 2019 14:16
[2019-03-16] MEDS ORDERED: VANC1.7511 IV (14:23)
[2019-03-16] MEDS ORDERED: 0.92DISP2 IV (14:23)
--- NOTE | 2019-03-16 14:24 | DISCH ---
DISCHARGE INSTRUCTIONS Condition on Discharge Condition on Discharge: Guarded Activity After Discharge Activity Instructions for Disc: Activity as tolerated Bathing Instructions: Shower-keep dressing dry, No Tub Bath until see Lifting Instructions after Dis: No heavy lifting, No pulling or pushing, Do not lift >10 pounds Exercise Instruction after Dis: Walk 15 min, 3 x per day Driving Instructions after Dis: Do not drive, No driving for 2 weeks Diet after Discharge Diet after Discharge: Regular Diet Texture: Regular Liquid Texture: Thin Liquid Swallowing Supervision: None needed Wound Incision Care Wound/Incision Care: No wound care needed Wound Care Equipment: Dressings Checks after Discharge Checks after discharge: Check blood press - daily Contacting the [place] after DC Call your doctor for: If your condition worsens Treatment/Equipment after DC Adaptive Equipment Issued: None Warfarin Follow-Up Warfarin Follow UP: TRANSFER TO [facility] RYLIE ARVIZU MD Mar 16, 2019 14:24
--- NOTE | 2019-03-16 15:30 | NUR ---
Patient discharge to [facility] per korina per EMS with copied chart and discharge transfer form per EMS. Report called earlier to Cata QUISPE at [facility] and she was notified of discharge time. See orders, notes and nursing communication.
[2019-03-17] MEDS ORDERED: HYDROmorphone 2 MG/ML VIAL IV PRN (07:00)
[2019-03-17] MEDS ORDERED: ONDANSETRON PF 4 MG/2 ML VIAL. IV PRN (07:00)
[2019-03-17] MEDS ORDERED: LIDOCAINE 1% PF 2 ML VIAL. ID PRN (07:00)
[2019-03-17] MEDS ORDERED: IV RINGERS,LACTATED 1000ML 1,000 ML IV SCH (07:00)
[2019-03-17] MEDS ORDERED: fentaNYL PF VIAL 100 MCG/2 ML VIAL IV PRN ×2 (07:00)
[2019-03-17] MEDS ORDERED: MORPHINE SULFATE 2 MG/ML VIAL. IV PRN (07:00)
[2019-03-17] MEDS ORDERED: PROCHLORPERAZINE 10 MG/2 ML VIAL. IV PRN (07:00)
== END 2019-03-16 15:30 | disposition short-term general hospital (02) | DRG 871 ==
LOC: 5 SOUTH 10:06
PROVIDERS: ADMIT Family Medicine; ATTEND Family Medicine
DX: A41.9 Sepsis, unspecified organism (principal); E43 Unspecified severe protein-calorie malnutrition; A04.71 Enterocolitis due to Clostridium difficile, recurrent; G37.3 Acute transverse myelitis in demyelinating disease of central nervous system; G82.20 Paraplegia, unspecified; N39.0 Urinary tract infection, site not specified; D64.9 Anemia, unspecified; E66.01 Morbid (severe) obesity due to excess calories; E78.5 Hyperlipidemia, unspecified; E87.6 Hypokalemia; I10 Essential (primary) hypertension; L89.159 Pressure ulcer of sacral region, unspecified stage; M19.90 Unspecified osteoarthritis, unspecified site; Z68.34 Body mass index [BMI] 34.0-34.9, adult; Z86.711 Personal history of pulmonary embolism; Z87.440 Personal history of urinary (tract) infections; Z88.1 Allergy status to other antibiotic agents; Z96.643 Presence of artificial hip joint, bilateral; Z96.653 Presence of artificial knee joint, bilateral
CPT/HCPCS: 36415; 72157; 72158; 72197; 80048; 80053; 80202; 81001; 83605; 83735; 84145; 85007; 85025; 85384; 85610; 85651; 85730; 87040; 87070; 87086; 87186; 87205; 93970; A9575; J2248; J2543; J3370; J7030; J7040; G0378

== ENCOUNTER 2019-04-10 07:42 | Inpatient (IN) | payer BC, MEDICARE, OTHER ==
[2019-04-10] VITALS (11 sets, daily range): BP systolic 126–172; BP diastolic 66–100
[~2019-04-10] VITALS: Ht 182.9 cm; Wt 108.9 kg
[~2019-04-10 07:42] MED LIST changes: +0.92DISP2 IV; +ACETAMINOPHEN 500 MG TABLET PO PRN; +AMLO5TAB10 PO; +APIX5TAB PO; +ATOR20TA58 PO; +BUPIVACAINE-EPI 0.25%-1:200000 MPF 30 ML VIAL. INJ ONE; +DAPT350V IV; +DIGE1CAP PO; +ENOX80DI SQ; +FLEC100T PO; +FLUT16SP NS; +FURO-68 PO; +GLUC100018 PO; +HYDROmorphone 2 MG/ML VIAL IV PRN; +INDOCYANINE GREEN 7.5 MG in TOTAL VOLUME SYRINGE 3 ML IVP ONE; +IV RINGERS,LACTATED 1000ML 1,000 ML IV SCH; +LECI400C PO; +LIDOCAINE 1% PF 2 ML VIAL. ID PRN; +MERO1VIA15 IV; +MILK1TAB PO; +MORPHINE SULFATE 2 MG/ML VIAL. IV PRN; +OMEG350C PO; +ONDANSETRON PF 4 MG/2 ML VIAL. IV PRN; +PROCHLORPERAZINE 10 MG/2 ML VIAL. IV PRN; +RIVA20TA2 PO; +SAW450CA7 PO; +VANC1.7511 IV; +VANC125C3 PO; +fentaNYL PF VIAL 100 MCG/2 ML VIAL IV PRN
[2019-04-10] MEDS ORDERED: APIX5TAB PO (08:18)
[2019-04-10] MEDS ORDERED: LIDOCAINE 2% PF 5 ML VIAL. ONE (09:00)
[2019-04-10] MEDS ORDERED: ONDANSETRON PF 4 MG/2 ML VIAL. ONE (09:00)
[2019-04-10] MEDS ORDERED: PROPOFOL 20 ML IV ONE (09:00)
[2019-04-10] MEDS ORDERED: DEXAMETHASONE SOD PHOS 4 MG/ML VIAL ONE (09:00)
[2019-04-10] MEDS ORDERED: ROCURONIUM 50 MG/5 ML VIAL. ONE (09:00)
[2019-04-10] MEDS ORDERED: fentaNYL PF VIAL 100 MCG/2 ML VIAL ONE (09:01)
[2019-04-10] MEDS ORDERED: DEXAMETHASONE SOD PHOS 20 MG/5 ML VIAL. ONE (09:02)
[2019-04-10] MEDS ORDERED: GLYCOPYRROLATE 1 MG/5 ML VIAL. ONE (11:59)
[2019-04-10] MEDS ORDERED: NEOSTIGMINE METHYLSULFATE 5 MG/5 ML SYRINGE. ONE (11:59)
[2019-04-10] MEDS ORDERED: SEVOFLURANE > 120 MINUTES. IH ONE (12:08)
[2019-04-10] MEDS ORDERED: 0.9 % SODIUM CHLORIDE 10 ML DISP.SYRIN. IV PRN (12:30)
[2019-04-10] MEDS ORDERED: oxyCODONE/APAP 5/325 1 TAB TABLET PO PRN ×2 (12:30)
[2019-04-10] MEDS ORDERED: MORPHINE SULFATE 2 MG/ML VIAL. IV PRN (12:30)
[2019-04-10] MEDS ORDERED: ONDANSETRON PF 4 MG/2 ML VIAL. IV PRN (12:30)
--- NOTE | 2019-04-10 12:51 | PDOC1 ---
History and Physical Date of Admission Date of Admission DATE: 04/10/19 TIME: 12:47 Identification/Chief Complaint Chief Complaint Sacral decubitus ulcers Source Source: Patient History of Present Illness History of Present Illness 64-year-old male recently became a paraplegic and is having issues with sacral decubitus ulcers and infections secondary to stool soilage. In light of this the patient has requested a diverting colostomy Past Medical History Cardiovascular: HTN, Hyperlipidemia, Other Pulmonary: No pertinent hx CENTRAL NERVOUS SYSTEM: Periperal neuropathy GI: No pertinent hx Heme/Onc: No pertinent hx Hepatobiliary: No pertinent hx, Cholelithiasis Psych: No pertinent hx Musculoskeletal: Osteoarthritis, Muscle atrophy, Weakness, Other Rheumatologic: No pertinent hx Infectious disease: No pertinent hx Renal/: No pertinent hx Endocrine: No pertinent hx Past Surgical History Past Surgical History: Other Family History Family History: Heart Disease, Other Social History ALCOHOL: none Drugs: None Current Medications Current Medications Current Medications Indocyanine Green 7.5 mg/ Miscellaneous 3 ml @ 180 mls/hr 1X ONCE IVP Last administered on 04/10/19at 09:28; Start 04/10/19 at 06:00; Stop 04/10/19 at 06:01; Status DC Bupivacaine HCl/ Epinephrine Bitart (Sensorcaine-Epi 0.25%-1:[id number] Mpf) 30 ml 1X ONCE INJ Last administered on 04/10/19at 11:27; Start 04/10/19 at 06:00; Stop 04/10/19 at 06:01; Status DC Ondansetron HCl (Zofran) 4 mg PRN Q6HRS PRN IV NAUSEA/VOMITING; Start 04/10/19 at 07:00; Stop 04/11/19 at 06:59 Fentanyl Citrate (Fentanyl 2ml Vial) 25 mcg PRN Q5MIN PRN IV MILD PAIN 1-3; Start 04/10/19 at 07:00; Stop 04/11/19 at 06:59 Fentanyl Citrate (Fentanyl 2ml Vial) 50 mcg PRN Q5MIN PRN IV MODERATE TO SEVERE PAIN; Start 04/10/19 at 07:00; Stop 04/11/19 at 06:59 Morphine Sulfate (Morphine Sulfate) 1 mg PRN Q10MIN PRN IV SEVERE PAIN 7-10; Start 04/10/19 at 07:00; Stop 04/11/19 at 06:59 Ringer's Solution 1,000 ml @ 30 mls/hr Q24H IV Last administered on 04/10/19at 08:38; Start 04/10/19 at 07:00; Stop 04/10/19 at 18:59 Lidocaine HCl (Xylocaine-Mpf 1% 2ml Vial) 2 ml PRN 1X PRN ID IV START; Start 04/10/19 at 07:00; Stop 04/11/19 at 06:59 Hydromorphone HCl (Dilaudid) 0.5 mg PRN Q10MIN PRN IV SEV PAIN, Second choice; Start 04/10/19 at 07:00; Stop 04/11/19 at 06:59 Prochlorperazine Edisylate (Compazine) 5 mg PACU PRN PRN IV NAUSEA, MRX1; Start 04/10/19 at 07:00; Stop 04/11/19 at 06:59 Acetaminophen (Tylenol) 1,000 mg OC PROC PRN PO PRE-OP Last administered on 04/10/19at 09:32; Start 04/10/19 at 06:00; Stop 04/10/19 at 18:00 Lidocaine HCl (Lidocaine Pf 2% Vial) 5 ml STK-MED ONCE .ROUTE ; Start 04/10/19 at 09:00; Stop 04/10/19 at 09:00; Status DC Propofol 20 ml @ As Directed STK-MED ONCE IV ; Start 04/10/19 at 09:00; Stop 04/10/19 at 09:00; Status DC Ondansetron HCl (Zofran) 4 mg STK-MED ONCE .ROUTE ; Start 04/10/19 at 09:00; Stop 04/10/19 at 09:00; Status DC Dexamethasone Sodium Phosphate (Decadron) 4 mg STK-MED ONCE .ROUTE ; Start 04/10/19 at 09:00; Stop 04/10/19 at 09:00; Status DC Rocuronium [place] (Zemuron) 50 mg STK-MED ONCE .ROUTE ; Start 04/10/19 at 09:00; Stop 04/10/19 at 09:01; Status DC Fentanyl Citrate (Fentanyl 2ml Vial) 100 mcg STK-MED ONCE .ROUTE ; Start 04/10/19 at 09:01; Stop 04/10/19 at 09:01; Status DC Dexamethasone Sodium Phosphate (Decadron) 20 mg STK-MED ONCE .ROUTE ; Start 04/10/19 at 09:02; Stop 04/10/19 at 09:02; Status DC Neostigmine Methylsulfate (Neostigmine Methylsulfate) 5 mg STK-MED ONCE .ROUTE ; Start 04/10/19 at 11:59; Stop 04/10/19 at 11:59; Status DC Glycopyrrolate (Robinul) 1 mg STK-MED ONCE .ROUTE ; Start 04/10/19 at 11:59; Stop 04/10/19 at 11:59; Status DC Sevoflurane (Ultane) 90 ml STK-MED ONCE IH ; Start 04/10/19 at 12:08; Stop 04/10/19 at 12:08; Status DC Sodium Chloride (Normal Saline Flush) 3 ml QSHIFT PRN IV AFTER MEDS AND BLOOD DRAWS; Start 04/10/19 at 12:30 Morphine Sulfate (Morphine Sulfate) 2 mg PRN Q3HRS PRN IV MODERATE TO SEVERE PAIN; Start 04/10/19 at 12:30 Oxycodone/ Acetaminophen (Percocet 5/325) 1 tab PRN Q4HRS PRN PO MILD PAIN, 1ST CHOICE; Start 04/10/19 at 12:30 Oxycodone/ Acetaminophen (Percocet 5/325) 2 tab PRN Q4HRS PRN PO MODERATE PAIN, SEVERE PAIN; Start 04/10/19 at 12:30 Ketorolac Tromethamine (Toradol 15mg Vial) 15 mg Q6HRS IV ; Start 04/10/19 at 13:00; Stop 04/12/19 at 12:59 Ondansetron HCl (Zofran) 4 mg PRN Q6HRS PRN IV NAUSEA, 1ST CHOICE; Start 04/10/19 at 12:30 Dextrose/Lactated Ringer's 1,000 ml @ 75 mls/hr [id number] IV ; Start 04/10/19 at 12:30 Metoprolol Tartrate (Lopressor) 50 mg BID PO ; Start 04/10/19 at 21:00 Gabapentin (Neurontin) 300 mg TID PO ; Start 04/10/19 at 14:00 Active Scripts Active Reported Eliquis (Apixaban) 5 Mg Tablet 5 Mg PO BID Flecainide Acetate 100 Mg Tablet 50 Mg PO BID Lovenox (Enoxaparin Sodium) 80 Mg/0.8 Ml Disp.syrin 80 Mg SQ DAILY Meropenem 1 Gm Vial 1 Gm IV DAILY Daptomycin 350 Mg Vial 500 Mg IV DAILY Amlodipine Besylate 5 Mg Tablet 5 Mg PO DAILY Atorvastatin Calcium 20 Mg Tablet 20 Mg PO HS Fluticasone Propionate Nasal [place] (Fluticasone Propionate) 16 Gm [place].susp 2 [place] NS DAILY Vancomycin Hcl 125 Mg Capsule 125 Mg PO QODAY Superior Digestive Enzyme (Digestive Enzymes Combo No.7) 1 Each Capsule 1 Each PO BID Gabapentin (Gabapentin) 300 Mg Capsule 300 Mg PO TID Toprol Xl (Metoprolol Succinate) 50 Mg Tab.er.24h 1 Tab PO DAILY Allergies Allergies: Coded Allergies: cephalexin (Verified Allergy, Intermediate, rash, 04/09/19) I S O L A T I O N *CONTACT* (Verified Allergy, Unknown, ECOLI, VRE, PSEUDOMONAS SACRAL WOUND; CHRONIC C-DIFF, 04/09/19) Physical Exam General: Alert, Oriented X3, Cooperative, No acute distress, Other (paraplegic) HEENT: Atraumatic, PERRLA, EOMI Lungs: Clear to auscultation, Normal air movement Heart: RRR, no murmurs Abdomen: Normal bowel sounds, Soft, No tenderness, Other (abdomen has been marked for his colostomy site by wound care nurse) Rectal Exam: not examined Extremities: No edema Skin: No significant lesion Neuro: Normal speech Psych/Mental Status: Mental status NL Vitals Vitals Vital Signs Date Time Temp Pulse Resp B/P (MAP) Pulse Ox O2 Delivery O2 Flow Rate FiO2 04/10/19 08:41 Room Air 04/10/19 08:37 97.5 89 18 170/96 95 97.5 VTE Prophylaxis Ordered VTE Prophylaxis Devices: Yes VTE Pharmacological Prophylaxi: Yes Assessment/Plan Assessment/Plan Paraplegic requesting diverting colostomy to prevent wound issues of his sacral decubitus ulcers Procedure of diverting colostomy explained to the patient and his in detail wish to proceed RYLIE SHAY MD Apr 10, 2019 12:51
--- NOTE | 2019-04-10 13:10 | PDOC4 ---
Operative Note Operative Note Date: 04/10/2019 Preoperative diagnosis: Paraplegic with sacral decubitus ulcers infected Postoperative diagnosis: Same Procedure: Robotic-assisted laparoscopic diverting colostomy Surgeon: Richard Specimen: None Dictation: Patient is a 64-year-old gentleman who is paraplegic and having issues with sacral decubitus ulcers and infection secondary to stool soilage. The procedure of biotic-assisted laparoscopic diverting colostomy was explained to the patient and his in detail risks benefits were also discussed including bleeding infection injury to intra-abdominal contents possibly necessitating further or open operations alternatives to this procedure also discussed with the patient and his who seemed to understand and gave both verbal and written consent had the procedure performed. Patient was taken to the operating room placed in supine position general anesthesia was initiated once patient was sleep and intubated his abdomen was prepped and draped usual sterile fashion using ChloraPrep. An area at the umbilicus was injected quarter percent Marcaine with epinephrine small incision was made with 11 blade scalpel varies needle was placed within the abdomen creating pneumoperitoneum once this was complete a da Anay 8 mm port was placed lateral to the umbilicus on the right side of the abdomen. The da Anay camera was placed within the abdomen and inspected no other abdomen maladies were noted. A 12 mm da Anay port was placed in the right lower abdomen under direct visualization and a second 8mm da Anay port was placed in the epigastric area under direct visualization. A 12 mm port was then placed through the marking of the colostomy site in the left lower quadrant. Surgeon went to the robotic console using grasper and Endo Deedee scissors the white line of Toldt along the left lateral border was taken down with sharp dissection and electrocautery. This mobilization was taken down to the splenic flexure and the sigmoid colon was rolled medially using the vessel sealer more dissection was performed allowing for complete mobilization of the sigmoid colon. A window was propagated in the mesentery allowing for a EMILY stapler to staple and transect the sigmoid colon at the rectum. Grasper was then placed through the 12 mm port in the left lower quadrant proximal end of the sigmoid colon was grasped and brought up to the port at this point surgeon went back to the operative field. The pneumoperitoneum was reduced all ports were removed the da Anay robot was undocked removed from the field. A 15 blade scalpel was used to incise skin around the 12 mm port and access to the abdomen was created bringing the sigmoid colon and exteriorizing the colon. Colostomy was matured with 3-0 Vicryl single interrupted sutures peripherally around the colostomy. Colostomy bag was placed. The port sites were all closed for septic and a Monocryl Mastisol Steri-Strips and island dressings were applied. Patient was awakened and bated in the operating room taken to recovery in stable condition all sponge instrument needle counts listed as correct estimate of blood loss 20 mL RYLIE SHAY MD Apr 10, 2019 13:10
[2019-04-10] MEDS: IV DEXTROSE 5%-LACT RINGERS 1,000 ML IV SCH (14:08)
[2019-04-10] MEDS: KETOROLAC 15 MG/ML VIAL. IV SCH ×3 (14:29→23:57)
[2019-04-10] MEDS: GABAPENTIN 300 MG CAPSULE. PO SCH ×2 (14:30→21:39)
--- NOTE | 2019-04-10 16:21 | NUR ---
Wound Care: Wound care consult for multiple pressure ulcers and new ostomy, pt is a current pt of wound care clinic. Ostomy teaching deferred at this time. Wound care for bilateral heel PU unstageable, coccyx PU stage 3 and R ischium PU unstageable wound. All cleansed, pictured and measured and dressed(see wound intervention for dressing details). No other wounds noted at this time. Pt here for obs, wound vac not applied to ischium as pt is leaving tomorrow am to [facility]. Pt left turn to his R side with call light within reach, pt will follow up with pt in outpatient setting.
[2019-04-10] MEDS ORDERED: DAPTOmycin (GENERIC) IVPB 360 MG in IV NORMAL SALINE 50ML 50 ML IV SCH (21:00)
[2019-04-10] MEDS: METOPROLOL TART IMMED RELEASE 50 MG TABLET. PO SCH (21:40)
[2019-04-10] MEDS: MEROPENEM 1 GM in IV NORMAL SALINE 100ML 100 ML IV SCH (21:43)
[2019-04-11] MEDS: IV DEXTROSE 5%-LACT RINGERS 1,000 ML IV SCH ×2 (03:44→15:14)
[2019-04-11 03:47] VITALS: BP 133/78
[2019-04-11] MEDS: KETOROLAC 15 MG/ML VIAL. IV SCH ×4 (06:16→23:29)
[2019-04-11] MEDS: MEROPENEM 1 GM in IV NORMAL SALINE 100ML 100 ML IV SCH ×3 (06:17→22:17)
[2019-04-11 06:50] LABS: BASO % 0 % (0-3); EOS % 0 % (0-3); HEMATOCRIT 29.9 % (39.0-53.0); LYMPH # 0.8 x10^3/uL (1.0-4.8); LYMPH % 9 % (24-48); MEAN CORPUSCULAR HEMOGLOBIN 28 pg (25-35); MEAN CORPUSCULAR HGB CONC 33 g/dL (31-37); MEAN CORPUSCULAR VOLUME 84 fL (79-100); MONO # 0.7 x10^3/uL (0.0-1.1); MONO % 8 % (0-9); NEUT # 7.4 x10^3/uL (1.8-7.7); NEUT % 83 % (31-73); PLATELET COUNT 304 x10^3/uL (140-400); RED BLOOD COUNT 3.54 x10^6/uL (4.30-5.70); RED CELL DISTRIBUTION WIDTH 16.4 % (11.5-14.5); WHITE BLOOD COUNT 8.9 x10^3/uL (4.0-11.0)
[2019-04-11 07:00] VITALS: BP 152/76
[2019-04-11] MEDS: METOPROLOL TART IMMED RELEASE 50 MG TABLET. PO SCH ×2 (08:34→22:18)
[2019-04-11] MEDS: GABAPENTIN 300 MG CAPSULE. PO SCH ×3 (08:34→22:17)
--- NOTE | 2019-04-11 08:57 | PDOC ---
SUSY ISAAC DIRECTOR PRISON 04/11/19 0857: SURGICAL PROGRESS NOTE Subjective minimal pain tolerating diet dewey out--does straight cath on routine Vital Signs Vital Signs Date Time Temp Pulse Resp B/P (MAP) Pulse Ox O2 Delivery O2 Flow Rate FiO2 04/11/19 08:34 66 152/76 04/11/19 08:00 Nasal Cannula 1.0 04/11/19 03:47 97.5 18 95 97.5 I&O Intake and Output 04/11/19 07:00 Intake Total 3150 ml Output Total 1360 ml Balance 1790 ml Intake Oral 1150 ml IV Total 2000 ml Output Urine Total 1350 ml Estimated Blood Loss 10 ml # Bowel Movements 2 General: Alert, Cooperative Abdomen: Soft, Other (ostomy with stool) Labs Laboratory Tests Test 04/11/19 05:41 White Blood Count 8.9 x10^3/uL (4.0-11.0) Red Blood Count 3.54 x10^6/uL (4.30-5.70) Hemoglobin 10.0 g/dL (13.0-17.5) Hematocrit 29.9 % (39.0-53.0) Mean Corpuscular Volume 84 fL (79-100) Mean Corpuscular Hemoglobin 28 pg (25-35) Mean Corpuscular Hemoglobin Concent 33 g/dL (31-37) Red Cell Distribution Width 16.4 % (11.5-14.5) Platelet Count 304 x10^3/uL (140-400) Neutrophils (%) (Auto) 83 % (31-73) Lymphocytes (%) (Auto) 9 % (24-48) Monocytes (%) (Auto) 8 % (0-9) Eosinophils (%) (Auto) 0 % (0-3) Basophils (%) (Auto) 0 % (0-3) Neutrophils # (Auto) 7.4 x10^3/uL (1.8-7.7) Lymphocytes # (Auto) 0.8 x10^3/uL (1.0-4.8) Monocytes # (Auto) 0.7 x10^3/uL (0.0-1.1) Eosinophils # (Auto) 0.0 x10^3/uL (0.0-0.7) Basophils # (Auto) 0.0 x10^3/uL (0.0-0.2) Laboratory Tests Test 04/11/19 05:41 White Blood Count 8.9 x10^3/uL (4.0-11.0) Red Blood Count 3.54 x10^6/uL (4.30-5.70) Hemoglobin 10.0 g/dL (13.0-17.5) Hematocrit 29.9 % (39.0-53.0) Mean Corpuscular Volume 84 fL (79-100) Mean Corpuscular Hemoglobin 28 pg (25-35) Mean Corpuscular Hemoglobin Concent 33 g/dL (31-37) Red Cell Distribution Width 16.4 % (11.5-14.5) Platelet Count 304 x10^3/uL (140-400) Neutrophils (%) (Auto) 83 % (31-73) Lymphocytes (%) (Auto) 9 % (24-48) Monocytes (%) (Auto) 8 % (0-9) Eosinophils (%) (Auto) 0 % (0-3) Basophils (%) (Auto) 0 % (0-3) Neutrophils # (Auto) 7.4 x10^3/uL (1.8-7.7) Lymphocytes # (Auto) 0.8 x10^3/uL (1.0-4.8) Monocytes # (Auto) 0.7 x10^3/uL (0.0-1.1) Eosinophils # (Auto) 0.0 x10^3/uL (0.0-0.7) Basophils # (Auto) 0.0 x10^3/uL (0.0-0.2) Assessment/Plan diverting colostomy plan to dc back to [facility] RYLIE SHAY MD 04/11/19 1038: SURGICAL PROGRESS NOTE Assessment/Plan Status post laparoscopic diverting colostomy patient is doing quite well actually has gas and stool within the colostomy bag re-with Neli assessment and plan for transferring back to [facility] SUSY ISAAC APRN Apr 11, 2019 08:57 RYLIE SHAY MD Apr 11, 2019 10:38
[2019-04-11] MEDS ORDERED: OXYC1TAB15 PO (09:00)
--- NOTE | 2019-04-11 09:03 | SNU/HH DC ---
DISCHARGE ORDERS DISCHARGE INFORMATION: DISCHARGE DATE: Apr 11, 2019 FINAL DIAGNOSIS Paraplegic with sacral decubitus ulcers infected CONDITION ON DISCHARGE: Stable LTAC: ADMIT TO LTAC: Yes POST DISCHARGE ORDERS: ACTIVITY ORDERS: Activity as tolerated BATHING ORDERS: Shower-keep dressing dry DIET AFTER DISCHARGE: Cardiac WOUND/INCISION CARE: Change dressing (wound care for ulcer as ordered prior to discharge), May get incision wet, Other, see below OTHER WOUND INSTRUCTIONS: lap sites may be uncovered, routinue ostomy care, ongoing wound care CHECKS AFTER DISCHARGE: CHECKS AFTER DISCHARGE: Check blood press - daily FOLLOW-UP: PHYSICIAN FOLLOW-UP: Dr Rmaos 2 weeks, call to schedule [phone] TREATMENT/EQUIPMENT ORDERS: ADAPTIVE EQUIPMENT NEEDED: None Physical Therapy For: Evalulation/Treatment Occupational Therapy For: Evaluation/Treatment DISCHARGE MEDICATIONS: Home Meds Active Scripts Oxycodone/Apap 5-325 (PERCOCET 5-325 MG TABLET ) 1 Each Tablet, 1 TAB PO PRN Q4HRS PRN for MILD PAIN, 1ST CHOICE, #30 TAB 0 Refills Prov:SUSY ISAAC GROUND WIRER 04/11/19 Reported Medications Apixaban (ELIQUIS) 5 Mg Tablet, 5 MG PO BID for AFIB, TAB 04/10/19 Flecainide Acetate (FLECAINIDE ACETATE) 100 Mg Tablet, 50 MG PO BID for HEART, TAB 04/09/19 Enoxaparin Sodium (LOVENOX) 80 Mg/0.8 Ml Disp.syrin, 80 MG SQ DAILY for ANTI- COAGULANT, DIS.SYR 04/09/19 Meropenem (MEROPENEM) 1 Gm Vial, 1 GM IV DAILY for ANTIBIOTIC, EACH 04/09/19 Daptomycin (Daptomycin) 350 Mg Vial, 500 MG IV DAILY for ANTIBIOTIC, EACH 04/09/19 Amlodipine Besylate (AMLODIPINE BESYLATE) 5 Mg Tablet, 5 MG PO DAILY for HIGH BLOOD PRESSURE, TAB 04/09/19 Atorvastatin Calcium (ATORVASTATIN CALCIUM) 20 Mg Tablet, 20 MG PO HS for FOR CHOLESTEROL, #30 TAB 0 Refills 04/09/19 Fluticasone Propionate (FLUTICASONE PROPIONATE NASAL SPRAY) 16 Gm [place].susp, 2 SPRAY NS DAILY for NASAL SPRAY, #1 INHALER 5 Refills 04/09/19 Vancomycin Hcl (VANCOMYCIN HCL) 125 Mg Capsule, 125 MG PO QODAY for infection, CAP 03/13/19 Digestive Enzymes Combo No.7 (Superior Digestive Enzyme) 1 Each Capsule, 1 EACH PO BID for supplement, CAP 03/13/19 Gabapentin (GABAPENTIN ) 300 Mg Capsule, 300 MG PO TID for NEUROGENIC PAIN, CAP 11/13/18 Metoprolol Succinate (TOPROL XL) 50 Mg Tab.er.24h, 1 TAB PO DAILY, #30 TAB 5 Ref ills 09/06/17 Discontinued Reported Medications Oxycodone/Apap 5-325 (PERCOCET 5-325 MG TABLET ) 1 Each Tablet, 1 TAB PO PRN Q6HRS PRN for PAIN, TAB 0 Refills 03/13/19 [place]-3S/Dha/Epa/Fish Oil ([place]-3 350 mg Cap) 350 Mg Capsule, 350 MG PO DAILY for supplement, CAP 03/13/19 Apixaban (ELIQUIS) 5 Mg Tablet, 5 MG PO BID for DVT, TAB 03/13/19 Glucosamine Sulfate 2KCL (GLUCOSAMINE) 1,000 Mg Tablet, 500 MG PO BID for supplement, TAB 03/13/19 Oxycodone/Apap 5-325 (PERCOCET 5-325 MG TABLET ) 1 Each Tablet, 1-2 TAB PO Q4-6HRS, #40 TAB 09/06/17 Rosuvastatin Calcium (CRESTOR) 10 Mg Tablet, 1 TAB PO DAILY, #30 TAB 5 Refills 09/06/17 SUSY ISAAC APRN Apr 11, 2019 09:03
--- NOTE | 2019-04-11 09:10 | NUR ---
IP: Pt has a hx of chronic C.diff and VRE [facility] sacral decub[facility] to be in contact plus precautions using brown sign.
[2019-04-11] MEDS: MULTIVITAMIN with MINERAL TABLET. PO SCH (10:20)
--- NOTE | 2019-04-11 10:59 | NUR ---
SS following up with discharge planning. SS reviewed pt chart. Pt is from [facility], ; fax [phone]. SS contacted [facility] and verified pt's previous placement. Discharge order on the chart for return to [facility]. SS phoned and faxed clinical and discharge orders to [facility]. SS currently awaiting transport time from [facility] and will arrange transfer once received. SS will continue to follow for discharge planning.
[2019-04-11 11:00] VITALS: BP 155/82
--- NOTE | 2019-04-11 14:46 | NUR ---
SS following up with discharge planning. SS received notification from [facility] stating that since pt had an overnight stay in the hospital a new insurance authorization needed to be received. [facility] reported that they would contact SS once insurance authorization has been received. SS will continue to follow for discharge planning.
[2019-04-11 15:00] VITALS: BP 157/81
--- NOTE | 2019-04-11 15:15 | NUR ---
ostomy care patient seen for ostomy teaching. patients current ostomy appliance is intact and was placed 04/10/2019. educated patient and on the Free [employer] Secure Start Program, and patient enrolled in the program at this time. patients ostomy bag emptied at this time. ostomy bag was not changed at this time, educated patient and at this time on some ostomy care. ostomy team will continue to f/u.
--- NOTE | 2019-04-11 15:29 | NUR ---
SS following up with discharge planning. Insurance authorization received for [facility], ; fax [phone]. [facility] contacted SS and stated that they will not have a bed until tomorrow and would be able to accept pt tomorrow, 04/12/2109. Pt's RN notified.
[2019-04-11 19:40] VITALS: BP 139/74
[2019-04-11] MEDS: DAPTOmycin (GENERIC) IVPB 360 MG in IV NORMAL SALINE 50ML 50 ML IV SCH (23:27)
[2019-04-11 23:40] VITALS: BP 151/80
[2019-04-12 03:45] VITALS: BP 141/82
[2019-04-12 07:00] VITALS: BP 175/102
[2019-04-12] MEDS: MEROPENEM 1 GM in IV NORMAL SALINE 100ML 100 ML IV SCH ×3 (07:36→22:39)
[2019-04-12] MEDS: KETOROLAC 15 MG/ML VIAL. IV SCH ×2 (07:37→13:04)
[2019-04-12] MEDS: IV DEXTROSE 5%-LACT RINGERS 1,000 ML IV SCH ×3 (07:58→21:17)
[2019-04-12] MEDS: MULTIVITAMIN with MINERAL TABLET. PO SCH (09:03)
[2019-04-12] MEDS: METOPROLOL TART IMMED RELEASE 50 MG TABLET. PO SCH ×2 (09:03→21:19)
[2019-04-12] MEDS: GABAPENTIN 300 MG CAPSULE. PO SCH ×3 (09:03→21:19)
[2019-04-12 11:00] VITALS: BP 160/92
--- NOTE | 2019-04-12 11:14 | PDOC ---
Provider Note Provider Note SURG Shun for Dr Ramos pt sleeping I did not wake him awaiting bed at [facility] WING RODRIGUEZ MD Apr 12, 2019 11:14
[2019-04-12 15:00] VITALS: BP 145/90
[2019-04-12 19:00] VITALS: BP 145/67
[2019-04-12] MEDS: DAPTOmycin (GENERIC) IVPB 360 MG in IV NORMAL SALINE 50ML 50 ML IV SCH (21:18)
[2019-04-12 23:00] VITALS: BP 179/100
[2019-04-12] MEDS: hydrALAZINE 20 MG/ML VIAL. IVP PRN (23:53)
[2019-04-13 03:00] VITALS: BP 168/96
[2019-04-13] MEDS: MEROPENEM 1 GM in IV NORMAL SALINE 100ML 100 ML IV SCH ×2 (06:13→13:06)
[2019-04-13 07:00] VITALS: BP 178/106
[2019-04-13] MEDS: GABAPENTIN 300 MG CAPSULE. PO SCH ×2 (08:41→13:05)
[2019-04-13] MEDS: MULTIVITAMIN with MINERAL TABLET. PO SCH (08:41)
[2019-04-13] MEDS: METOPROLOL TART IMMED RELEASE 50 MG TABLET. PO SCH (08:42)
[2019-04-13] MEDS: hydrALAZINE 20 MG/ML VIAL. IVP PRN (10:46)
[2019-04-13 11:00] VITALS: BP 166/96
--- NOTE | 2019-04-13 13:52 | PDOC ---
Provider Note Provider Note Shun for Dr Ramos no c/o to [facility] this afternoon f/u with WING Krueger MD Apr 13, 2019 13:52
[2019-04-13] MEDS ORDERED: LACTOBACILLUS RHAMNOSUS GG 1 CAPSULE. PO SCH (21:00)
--- NOTE | 2019-04-14 09:53 | PDOC3 ---
Discharge Summary Visit Information Date of Admission: Apr 10, 2019 Date of Discharge: Apr 13, 2019 Admitting Diagnosis: Paraplegic with sacral decubitus ulcers infected Final Diagnosis Paraplegic with sacral decubitus ulcers infected Brief Hospital Course Allergies Allergies Coded Allergies Type Severity Reaction Last Updated Verified cephalexin Allergy Intermediate rash 04/09/19 Yes I S O L A T I O N *CONTACT* Allergy Unknown ECOLI, VRE, PSEUDOMONAS SACRAL WO UND; CHRONIC C-DIFF 04/09/19 Yes Vital Signs Vital Signs Date Time Temp Pulse Resp B/P (MAP) Pulse Ox O2 Delivery O2 Flow Rate FiO2 04/13/19 11:00 97.9 78 16 166/96 (119) 95 Room Air 97.9 Brief Hospital Course Mr. Rust is a 64 old male who underwent Robotic-assisted laparoscopic diverting colostomy. Postoperatively tolerating diet, pain managed, and ostomy functioning. Discharged back to [facility] for ongoing care Discharge Information Condition at Discharge: Stable Follow Up: Weeks Disposition/Orders: D/C to Another Facility Scheduled Amlodipine Besylate (Amlodipine Besylate) 5 Mg Tablet, 5 MG PO DAILY for HIGH BLOOD PRESSURE, (Reported) Entered as Reported by: SOLANGE CLARK on 04/09/191441 Last Taken: Unknown Dose on 04/09/19 0900 Last Action: Last Taken Edited on 04/10/19815 by CAMILA DE JESUS Apixaban (Eliquis) 5 Mg Tablet, 5 MG PO BID for AFIB, (Reported) Entered as Reported by: CAMILA DE JESUS on 04/10/19817 Last Taken: Unknown Dose on 04/07/19 Last Action: Last Taken Edited on 04/10/19817 by CAMILA DE JESUS Atorvastatin Calcium (Atorvastatin Calcium) 20 Mg Tablet, 20 MG PO HS for FOR CHOLESTEROL, #30 Ref 0 (Reported) Entered as Reported by: SOLANGE CLARK on 04/09/191441 Last Action: New Order on 04/09/191441 by SOLANGE CLARK Daptomycin (Daptomycin) 350 Mg Vial, 500 MG IV DAILY for ANTIBIOTIC, (Reported) Entered as Reported by: SOLANGE CLARK on 04/09/191441 Last Action: New Order on 04/09/191441 by SOLANGE CLARK Digestive Enzymes Combo No.7 (Superior Digestive Enzyme) 1 Each Capsule, 1 EACH PO BID for supplement, (Reported) Entered as Reported by: JULIO CESAR NASSAR on 03/13/19 1102 Last Action: Reviewed on 04/09/19 1434 by SOLANGE CLARK Enoxaparin Sodium (Lovenox) 80 Mg/0.8 Ml Disp.syrin, 80 MG SQ DAILY for ANTI- COAGULANT, (Reported) Entered as Reported by: SOLANGE CLARK on 04/09/19 144 Last Taken: Unknown Dose on 04/09/191999 Last Action: Last Taken Edited on 04/10/19 08 by CAMILA DE JESUS Flecainide Acetate (Flecainide Acetate) 100 Mg Tablet, 50 MG PO BID for HEART, (Reported) Entered as Reported by: SOLANGE CLARK on 04/09/19 145 Last Taken: Unknown Dose on 04/09/19 09 Last Action: Last Taken Edited on 04/10/19 0816 by CAMILA DE JESUS Fluticasone Propionate (Fluticasone Propionate Nasal [place]) 16 Gm [place].susp, 2 SPRAY NS DAILY for NASAL SPRAY, #1 Ref 5 (Reported) Entered as Reported by: SOLANGE CLARK on 04/09/191441 Last Action: New Order on 04/09/191441 by SOLANGE CLARK Gabapentin (Gabapentin ) 300 Mg Capsule, 300 MG PO TID for NEUROGENIC PAIN, (Reported) Entered as Reported by: Jerel Hayes on 11/13/18 0431 Last Taken: Unknown Dose on 04/10/19 06 Last Action: Last Taken Edited on 04/10/19 0814 by CAMILA DE JESUS Meropenem (Meropenem) 1 Gm Vial, 1 GM IV DAILY for ANTIBIOTIC, (Reported) Entered as Reported by: SOLANGE CLARK on 04/09/19 144 Last Action: New Order on 04/09/191441 by SOLANGE CLARK Metoprolol Succinate (Toprol Xl) 50 Mg Tab.er.24h, 1 TAB PO DAILY, #30 Ref 5 (Reported) Entered as Reported by: TEODORA WATSON on 09/06/17 1010 Last Taken: Unknown Dose on 04/09/19 0900 Last Action: Last Taken Edited on 04/10/19 0816 by CAMILA DE JESUS Vancomycin Hcl (Vancomycin Hcl) 125 Mg Capsule, 125 MG PO QODAY for infection, (Reported) Entered as Reported by: JULIO CESAR NASSAR on 03/13/191101 Last Action: Reviewed on 04/09/19 1434 by SOLANGE CLARK Scheduled PRN Oxycodone/Apap 5-325 (Percocet 5-325 Mg Tablet ) 1 Each Tablet, 1 TAB PO PRN Q4HRS PRN for MILD PAIN, 1ST CHOICE, #30 Ref 0 Prescribed by: Susy Harrison on 04/11/19 0900 Discontinued Medications Apixaban (Eliquis) 5 Mg Tablet, 5 MG PO BID for DVT, (Reported) Entered as Reported by: JULIO CESAR NASSAR on 03/13/191101 Last Action: Discontinued on 04/09/191123 by SOLANGE CLARK Glucosamine Sulfate 2KCL (Glucosamine) 1,000 Mg Tablet, 500 MG PO BID for supplement, (Reported) Entered as Reported by: JULIO CESAR NASSAR on 03/13/191101 Last Action: Discontinued on 04/09/191123 by SOLANGE CLARK [place]-3S/Dha/Epa/Fish Oil ([employer] [place]-3 350 mg Cap) 350 Mg Capsule, 350 MG PO DAILY for supplement, (Reported) Entered as Reported by: JULIO CESAR NASSAR on 03/13/191101 Last Action: Discontinued on 04/09/191123 by SOLANGE CLARK Oxycodone/Apap 5-325 (Percocet 5-325 Mg Tablet ) 1 Each Tablet, 1-2 TAB PO Q4- 6HRS, #40 (Reported) Entered as Reported by: JERROD LAMB RN on 09/06/17 1322 Last Action: Discontinued on 04/09/191123 by SOLANGE CLARK Oxycodone/Apap 5-325 (Percocet 5-325 Mg Tablet ) 1 Each Tablet, 1 TAB PO PRN Q6HRS PRN for PAIN, Ref 0 (Reported) Entered as Reported by: JULIO CESAR NASSAR on 03/13/191101 Last Action: Discontinued on 04/09/191123 by SOLANGE CLARK Rosuvastatin Calcium (Crestor) 10 Mg Tablet, 1 TAB PO DAILY, #30 Ref 5 (Reported) Entered as Reported by: TEODORA WATSON on 09/06/17 1010 Last Action: Discontinued on 04/09/19 1124 by SUSY TAVARES APRN Apr 14, 2019 09:53
== END 2019-04-13 14:37 | DRG 982 ==
LOC: INTOOBSV 07:42 → OPSVCIP 07:42 → 4 NORTH 14:00 → OBSVTOIN 04-11 16:30
PROVIDERS: ADMIT Surgery; ATTEND Surgery
PROC: 8E0W4CZ Robotic Assisted Procedure of Trunk Region, Percutaneous Endoscopic Approach (ICD-10-PCS; 2019-04-10)
PROC: 0D1N4Z4 Bypass Sigmoid Colon to Cutaneous, Percutaneous Endoscopic Approach (ICD-10-PCS; principal; 2019-04-10 09:45)
DX: L89.153 Pressure ulcer of sacral region, stage 3 (principal); G82.20 Paraplegia, unspecified; E78.5 Hyperlipidemia, unspecified; I10 Essential (primary) hypertension; G62.9 Polyneuropathy, unspecified; M19.90 Unspecified osteoarthritis, unspecified site; Z88.8 Allergy status to other drugs, medicaments and biological substances; Z79.899 Other long term (current) drug therapy
CPT/HCPCS: 36415; 85025; A7015; C1769; G0378; G0379; J0360; J0878; J1100; J1885; J2001; J2185; J2405; J2704; J2710; J3010; J3490; J7030; J7120

== ENCOUNTER 2019-11-02 13:00 | Inpatient (IN) | payer MEDICARE, BC, OTHER ==
[~2019-11-02] VITALS: Ht 182.9 cm; Wt 121.1 kg
[~2019-11-02 13:00] MED LIST changes: -ACETAMINOPHEN 500 MG TABLET PO PRN; -BUPIVACAINE-EPI 0.25%-1:200000 MPF 30 ML VIAL. INJ ONE; -HYDROmorphone 2 MG/ML VIAL IV PRN; -INDOCYANINE GREEN 7.5 MG in TOTAL VOLUME SYRINGE 3 ML IVP ONE; -IV RINGERS,LACTATED 1000ML 1,000 ML IV SCH; -LIDOCAINE 1% PF 2 ML VIAL. ID PRN; -MERO1VIA15 IV; +MERO1VIA24 IV; -MORPHINE SULFATE 2 MG/ML VIAL. IV PRN; -ONDANSETRON PF 4 MG/2 ML VIAL. IV PRN; -PROCHLORPERAZINE 10 MG/2 ML VIAL. IV PRN; -fentaNYL PF VIAL 100 MCG/2 ML VIAL IV PRN
--- NOTE | 2019-11-02 13:45 | RAD ---
Single view chest dated 11/02/2019 comparison made to November 12, 2018. CLINICAL INDICATION: Cough and fever. FINDINGS: Single upright portable exam performed. Heart and mediastinal contours are stable. Lungs are clear. No consolidation or pleural effusion. No pneumothorax. IMPRESSION: No acute radiographic abnormality. Electronically signed by: Warner Fernández MD (11/02/2019 1:42 PM) SARAN
[2019-11-02 14:00] LABS: BASO % 1 % (0-3); EOS % 0 % (0-3); HEMATOCRIT 35.4 % (39.0-53.0); HEMOGLOBIN 12.6 g/dL (13.0-17.5); LYMPH # 0.5 x10^3/uL (1.0-4.8); LYMPH % 6 % (24-48); MEAN CORPUSCULAR HEMOGLOBIN 31 pg (25-35); MEAN CORPUSCULAR HGB CONC 36 g/dL (31-37); MEAN CORPUSCULAR VOLUME 87 fL (79-100); MONO # 0.6 x10^3/uL (0.0-1.1); MONO % 7 % (0-9); NEUT # 7.2 x10^3/uL (1.8-7.7); NEUT % 87 % (31-73); PLATELET COUNT 210 x10^3/uL (140-400); RED BLOOD COUNT 4.07 x10^6/uL (4.30-5.70); RED CELL DISTRIBUTION WIDTH 13.8 % (11.5-14.5); WHITE BLOOD COUNT 8.3 x10^3/uL (4.0-11.0)
[2019-11-02 14:08] LABS: CALCIUM 8.7 mg/dL (8.5-10.1); GFR 74.8
[2019-11-02 14:11] LABS: PROTHROMBIN TIME PATIENT 15.7 SEC (11.7-14.0)
[2019-11-02 14:14] LABS: ALBUMIN 2.9 g/dL (3.4-5.0); ALBUMIN/GLOBULIN RATIO 0.7 (1.0-1.7); MAGNESIUM 2.1 mg/dL (1.8-2.4); TOTAL BILIRUBIN 0.5 mg/dL (0.2-1.0); TOTAL PROTEIN 6.8 g/dL (6.4-8.2)
[2019-11-02 14:15] LABS: BASE EXCESS ABG -1 mmol/L (-3-3); CORRECTED PCO2 ABG 26 mmHg; CORRECTED PH ABG 7.51; CORRECTED PO2 ABG 102 mmHg; HCO3 ABG 20 mmol/L (21-28); PCO2 ABG 24 mmHg (35-46); PO2 ABG 92 mmHg (65-108); SAT O2 ABG 97 % (92-99)
[2019-11-02 14:17] LABS: FIO2 ABG 21
[2019-11-02] MEDS ORDERED: PIPERACILLIN/TAZOBACTAM 3.375 GM in IV NORMAL SALINE 50ML 50 ML IV ONE (15:30)
--- NOTE | 2019-11-02 15:30 | EKG ---
[facility] [address] [place] [address] Test Date: 2019-11-02 Test Time: 13:14:42 Pat Name: DONAVON TRAVIS Department: Room: Gender: M Forging Operator: : [id number] Requested By: LASHAUN DAMIAN Order Number: [id number] Reading MD: Binu Louis Measurements Intervals [place] Rate: 94 P: -26 GA: 156 QRS: -2 QRSD: 86 T: -5 QT: 332 QTc: 420 Interpretive Statements SINUS RHYTHM LEFTWARD AXIS LOW LIMB LEAD VOLTAGE QRS(T) CONTOUR ABNORMALITY CONSISTENT WITH ANTEROSEPTAL INFARCT PROBABLY OLD ABNORMAL ECG Electronically Signed On 11-04-2019 15:46:04 CDT by Binu Louis
[2019-11-02 16:01] LABS: BILIRUBIN,URINE NEGATIVE (NEG); CLARITY,URINE CLEAR; COLOR,URINE YELLOW; NITRITE,URINE POSITIVE (NEG); PROTEIN,URINE NEGATIVE (NEG-TRACE); UROBILINOGEN,URINE 0.2 mg/dL (0.2 mg/dL)
--- NOTE | 2019-11-02 16:03 | PHYS DOC ---
Past Medical History Past Medical History: High Cholesterol, Hypertension, Other Additional Past Medical Histor: PARAPLEGIA Past Surgical History: Cholecystectomy, Hip Replacement, Knee Replacement, Lumbar Laminectomy, Other Additional Past Surgical Histo: COLOSTOMY Smoking Status: Never Smoker Alcohol Use: Occasionally Drug Use: None General Adult EDM: Chief Complaint: FEVER HPI: HPI: Patient is a 64-year-old male who is a paraplegic secondary to a surgical complication about 15 months ago. He presents to the emergency department today secondary to fever, body aches and just feeling terrible. He does have wounds on his coccyx which she is being treated for by wound care. He does self cath every 6 hours. He denies any upper respiratory symptoms such as cough or congestion. He denies any headache or neck pain. He denies any abdominal pain. Apparently, he had a negative COVID test a few days ago. [] Review of Systems: Review of Systems: Constitutional: Reports fever [] Eyes: Denies change in visual acuity. [] HENT: Denies nasal congestion or sore throat. [] Respiratory: Denies cough or shortness of breath. [] Cardiovascular: Denies chest pain or edema. [] GI: Denies abdominal pain, nausea, vomiting, bloody stools or diarrhea. [] : Self caths. [] Musculoskeletal: Denies back pain or joint pain. [] Integument: Decubitus ulcers as described in the HPI [] Neurologic: Denies headache, focal weakness or sensory changes. [] Endocrine: Denies polyuria or polydipsia. [] Lymphatic: Denies swollen glands. [] Psychiatric: Denies depression or anxiety. [] Heart Score: Risk Factors: Risk Factors: DM, Current or recent (<one month) smoker, HTN, HLP, family history of CAD, obesity. Risk Scores: Score 0 - 3: 2.5% MACE over next 6 weeks - Discharge Home Score 4 - 6: 20.3% MACE over next 6 weeks - Admit for Clinical Observation Score 7 - 10: 72.7% MACE over next 6 weeks - Early Invasive Strategies Current Medications: Current Medications Medications (Trade) Dose Ordered Sig/Didi Start Time Stop Time Status Last Admin Dose Admin Piperacillin Sod/ Tazobactam Sod 3.375 gm/Sodium Chloride 50 ml @ 100 mls/hr 1X ONCE 11/02/19 15:30 11/02/19 15:59 11/02/19 15:43 100 MLS/HR Allergies: Allergies: Allergies Coded Allergies Type Severity Reaction Last Updated Verified cephalexin Allergy Intermediate rash 04/09/19 Yes I S O L A T I O N *CONTACT* Allergy Unknown ECOLI, VRE, PSEUDOMONAS SACRAL WOUND; CHRONIC C-DIFF 04/09/19 Yes Physical Exam: PE: Constitutional: Well developed, well nourished, no acute distress, non-toxic appearance. [] HENT: Normocephalic, atraumatic, bilateral external ears normal, oropharynx moist, no oral exudates, nose normal. [] Eyes: PERRLA, EOMI, conjunctiva normal, no discharge. [] Neck: Normal range of motion, no tenderness, supple, no stridor. [] Cardiovascular:Heart rate regular rhythm, no murmur [] Lungs & Thorax: Bilateral breath sounds clear to auscultation [] Abdomen: Bowel sounds normal, soft, no tenderness, no masses, no pulsatile masses. [] Skin: Warm, dry, no erythema, no rash. [] Back: No tenderness, no CVA tenderness. [] Extremities: No tenderness, no cyanosis, no clubbing, ROM intact, no edema. [] Neurologic: Alert and oriented X 3, normal motor function, normal sensory function, no focal deficits noted. [] Psychologic: Affect normal, judgement normal, mood normal. [] Current Patient Data: Labs: Laboratory Tests Test 11/02/19 13:40 11/02/19 14:14 White Blood Count 8.3 x10^3/uL (4.0-11.0) Red Blood Count 4.07 x10^6/uL (4.30-5.70) L Hemoglobin 12.6 g/dL (13.0-17.5) L Hematocrit 35.4 % (39.0-53.0) L Mean Corpuscular Volume 87 fL (79-100) Mean Corpuscular Hemoglobin 31 pg (25-35) Mean Corpuscular Hemoglobin Concent 36 g/dL (31-37) Red Cell Distribution Width 13.8 % (11.5-14.5) Platelet Count 210 x10^3/uL (140-400) Neutrophils (%) (Auto) 87 % (31-73) H Lymphocytes (%) (Auto) 6 % (24-48) L Monocytes (%) (Auto) 7 % (0-9) Eosinophils (%) (Auto) 0 % (0-3) Basophils (%) (Auto) 1 % (0-3) Neutrophils # (Auto) 7.2 x10^3/uL (1.8-7.7) Lymphocytes # (Auto) 0.5 x10^3/uL (1.0-4.8) L Monocytes # (Auto) 0.6 x10^3/uL (0.0-1.1) Eosinophils # (Auto) 0.0 x10^3/uL (0.0-0.7) Basophils # (Auto) 0.0 x10^3/uL (0.0-0.2) Platelet Estimate Pending Prothrombin Time 15.7 SEC (11.7-14.0) H Prothrombin Time INR 1.3 (0.8-1.1) H Sodium Level 140 mmol/L (136-145) Potassium Level 4.0 mmol/L (3.5-5.1) Chloride Level 104 mmol/L (98-107) Carbon Dioxide Level 24 mmol/L (21-32) Anion Gap 12 (6-14) Blood Urea Nitrogen 23 mg/dL (8-26) Creatinine 1.0 mg/dL (0.7-1.3) Estimated GFR (Cockcroft-Gault) 74.8 BUN/Creatinine Ratio 23 (6-20) H Glucose Level 113 mg/dL (70-99) H Lactic Acid Level 2.1 mmol/L (0.4-2.0) H Calcium Level 8.7 mg/dL (8.5-10.1) Magnesium Level 2.1 mg/dL (1.8-2.4) Total Bilirubin 0.5 mg/dL (0.2-1.0) Aspartate Amino Transferase (AST) 31 U/L (15-37) Alanine Aminotransferase (ALT) 64 U/L (16-63) H Alkaline Phosphatase 122 U/L (46-116) H Troponin I Quantitative < 0.017 ng/mL (0.000-0.055) AO-Oza-N-Type Natriuretic Peptide 366 pg/mL (0-124) H Total Protein 6.8 g/dL (6.4-8.2) Albumin 2.9 g/dL (3.4-5.0) L Albumin/Globulin Ratio 0.7 (1.0-1.7) L O2 Saturation 97 % (92-99) Arterial Blood pH 7.53 (7.35-7.45) H Arterial Blood pH (Temp corrected) 7.51 Arterial Blood pCO2 at Patient Temp 24 mmHg (35-46) L Arterial Blood pCO2 (Temp correct) 26 mmHg Arterial Blood pO2 at Patient Temp 92 mmHg (65-108) Arterial Blood pO2 (Temp corrected) 102 mmHg Arterial Blood HCO3 20 mmol/L (21-28) L Arterial Blood Base Excess -1 mmol/L (-3-3) FiO2 21 Laboratory Tests 11/02/19 13:40 Laboratory Tests 11/02/19 13:40 Vital Signs: Vital Signs Date Time Temp Pulse Resp B/P (MAP) Pulse Ox O2 Delivery O2 Flow Rate FiO2 11/02/19 15:37 92 18 118/69 (85) 96 Room Air 11/02/19 13:07 101.7 101.7 EKG: EKG: [] Radiology/Procedures: Radiology/Procedures: [] Impression: REASON: cough/fever PROCEDURE: CHEST AP ONLY Single view chest dated 11/02/2019 comparison made to November 12, 2018. CLINICAL INDICATION: Cough and fever. FINDINGS: Single upright portable exam performed. Heart and mediastinal contours are stable. Lungs are clear. No consolidation or pleural effusion. No pneumothorax. IMPRESSION: No acute radiographic abnormality. Course & Med Decision Making: Course & Med Decision Making Pertinent Labs and Imaging studies reviewed. (See chart for details) [] Dragon Disclaimer: Dragon Disclaimer: This electronic medical record was generated, in whole or in part, using a voice recognition dictation system. Departure Departure Referrals: NIKOLE BAY MD (PCP) LASHAUN DAMIAN DO November 02, 2019 16:03
[2019-11-02 16:09] LABS: BACTERIA,URINE MANY /HPF (0-FEW); HYALINE CASTS, URINE MODERATE /HPF; RBC,URINE 0 /HPF (0-2)
[2019-11-02] MEDS ORDERED: ONDANSETRON PF 4 MG/2 ML VIAL. IV PRN (16:15)
[2019-11-02] MEDS ORDERED: IV NORMAL SALINE 1000ML BAG 1,000 ML IV ONE (16:15)
[2019-11-02] MEDS ORDERED: CRESTOR5 MG PO (16:30)
[2019-11-02] MEDS ORDERED: AMLO-310 PO (16:30)
[2019-11-02] MEDS ORDERED: FURO40TA4 PO (16:30)
[2019-11-02] MEDS ORDERED: SPIR25TA5 PO (16:30)
[2019-11-02] MEDS ORDERED: HYDR-2145 PO (16:30)
[2019-11-02] MEDS ORDERED: OXYB5TAB10 PO (16:30)
[2019-11-02] MEDS ORDERED: POLY17PO29 PO (16:33)
[2019-11-02] MEDS ORDERED: SENN8.6T99 PO (16:33)
[2019-11-02 16:52] LABS: % BANDS 5 % (0-9); % BASOS 1 % (0-3); % LYMPHS 6 % (24-48); % MONOS 3 % (0-10); % SEGS 85 % (35-66)
[2019-11-02 16:53] LABS: PLT ESTIMATE ADEQUATE (ADEQUATE)
[2019-11-02] MEDS ORDERED: oxyCODONE/APAP 5/325 1 TAB TABLET PO ONE (17:15)
--- NOTE | 2019-11-02 18:08 | RAD ---
EXAM: Renal sonogram. HISTORY: Fever. Hydronephrosis. TECHNIQUE: Sonographic imaging of the kidneys and bladder was performed. COMPARISON: CT dated 11/12/2018. FINDINGS: The right kidney measures 13.2 cm [id number]. The left kidney measures 13.4 cm [id number]. No solid or cystic renal lesion is seen. There is no hydronephrosis. The bladder is not seen, likely due to relative recent catheterization. The aorta and inferior vena cava are partially obscured due to body habitus. IMPRESSION: Sonographically unremarkable kidneys. Electronically signed by: Kelsie Starr MD (11/02/2019 6:05 PM) [facility]
[2019-11-02] MEDS: IV NORMAL SALINE 1000ML BAG 1,000 ML IV SCH (18:19)
[2019-11-02 20:16] VITALS: BP 140/72
[2019-11-02] MEDS ORDERED: oxyCODONE/APAP 5/325 1 TAB TABLET PO PRN (21:30)
[2019-11-02] MEDS: ANTI-COAG MONITOR BY PHARMACY. MC PRN (22:30)
[2019-11-02 22:57] VITALS: BP 159/73
[2019-11-02] MEDS: PIPERACILLIN/TAZOBACTAM 3.375 GM in IV NORMAL SALINE 50ML 50 ML IV SCH (23:05)
[2019-11-02] MEDS: ACETAMINOPHEN 325 MG TABLET. PO PRN (23:22)
[2019-11-03] MEDS: IV NORMAL SALINE 1000ML BAG 1,000 ML IV SCH ×3 (00:30→15:29)
[2019-11-03 03:15] VITALS: BP 110/62
[2019-11-03 04:01] LABS: BASO % 1 % (0-3); EOS % 0 % (0-3); HEMATOCRIT 33.4 % (39.0-53.0); HEMOGLOBIN 11.7 g/dL (13.0-17.5); LYMPH # 0.6 x10^3/uL (1.0-4.8); LYMPH % 8 % (24-48); MEAN CORPUSCULAR HEMOGLOBIN 31 pg (25-35); MEAN CORPUSCULAR HGB CONC 35 g/dL (31-37); MEAN CORPUSCULAR VOLUME 88 fL (79-100); MONO # 0.4 x10^3/uL (0.0-1.1); MONO % 6 % (0-9); NEUT # 6.2 x10^3/uL (1.8-7.7); NEUT % 86 % (31-73); PLATELET COUNT 191 x10^3/uL (140-400); RED BLOOD COUNT 3.81 x10^6/uL (4.30-5.70); RED CELL DISTRIBUTION WIDTH 14.2 % (11.5-14.5); WHITE BLOOD COUNT 7.2 x10^3/uL (4.0-11.0)
--- NOTE | 2019-11-03 04:34 | NUR ---
The patient, DONAVON TRAVIS, 64 y/o, M admitted by RYLIE ARVIZU MD, was given written information regarding hospital policies, unit procedures and contact persons. Restarted home medications. Reviewed labs and diagnostic test. Valuables were checked and and patient brought a cell phone and manager advanced, sheets and chucks from home. Patient has wallet with identification, and wedding ring.
[2019-11-03 05:11] LABS: ALBUMIN 2.5 g/dL (3.4-5.0); ALBUMIN/GLOBULIN RATIO 0.7 (1.0-1.7); CALCIUM 7.9 mg/dL (8.5-10.1); CREATININE 0.8 mg/dL (0.7-1.3); GFR 96.7; POTASSIUM 3.8 mmol/L (3.5-5.1); TOTAL BILIRUBIN 0.4 mg/dL (0.2-1.0); TOTAL PROTEIN 6.2 g/dL (6.4-8.2)
[2019-11-03] MEDS: PIPERACILLIN/TAZOBACTAM 3.375 GM in IV NORMAL SALINE 50ML 50 ML IV SCH ×4 (05:19→23:02)
[2019-11-03 07:00] VITALS: BP 158/74
[2019-11-03] MEDS: FLUTICASONE 50MCG/NASAL SPRAY 16GM BOTTLE. NS SCH (07:46)
[2019-11-03] MEDS: POLYETHYLENE GLYCOL 3350 17 GM PACKET. PO SCH (08:28)
[2019-11-03] MEDS: LACTOBACILLUS RHAMNOSUS GG 1 CAPSULE. PO SCH ×2 (08:29→20:13)
[2019-11-03] MEDS: SENNOSIDES 8.6 MG TABLET PO SCH ×2 (08:29→20:13)
[2019-11-03] MEDS: OXYBUTYNIN CHLORIDE 5 MG TABLET PO SCH ×2 (08:29→20:14)
[2019-11-03] MEDS: METOPROLOL SUCC 24HR ER 50 MG TAB.ER.24H. PO SCH (08:29)
[2019-11-03] MEDS: APIXABAN 5 MG TABLET. PO SCH ×2 (08:29→20:14)
[2019-11-03] MEDS: hydroCHLOROthiazide 25 MG TABLET PO SCH (08:29)
[2019-11-03] MEDS: GABAPENTIN 300 MG CAPSULE. PO SCH ×3 (08:30→20:14)
[2019-11-03] MEDS: SPIRONOLACTONE 25 MG TABLET PO SCH (08:30)
[2019-11-03] MEDS: FUROSEMIDE 40 MG TABLET. PO SCH (08:30)
[2019-11-03] MEDS ORDERED: ONDANSETRON PF 4 MG/2 ML VIAL. IV PRN (09:00)
--- NOTE | 2019-11-03 09:00 | PDOC1 ---
History and Physical Date of Admission Date of Admission DATE: 11/03/19 TIME: 08:48 Identification/Chief Complaint Chief Complaint Fever and chills History of Present Illness History of Present Illness Mr Rust is a 64-year-old male with PMHx recent PE, transverse myelitis with paraplegia, neurogenic bladder, and multiple pressure wounds, who was admitted through ED c/o fever, body aches and just feeling terrible. He does have wounds on his coccyx which she is being treated for by wound care. He does self cath every 6 hours, but has been doing this less often due to weakness. He denies any upper respiratory symptoms such as cough or congestion and states he had a negative COVID test a few days prior to admission. He notes he had to do this at [facility] prior to his angiogram last week. Fever 101.7F in ED, WBC 7.2, lactate 2.1. [Was seen in wound clinic on 03/13 and directly admitted to [facility]. He also has recurrent Clostridium difficile infection (07/2018 and 11/2018) still on a taper of oral vancomycin and h/o e. coli UTI (self-caths up to 6 times daily). Transferred to [facility] and underwent diverting colostomy on 04/10/2019. He was discharged to [facility] and has been home since 08/23/2019]. Past Medical History Cardiovascular: HTN, Hyperlipidemia, Other Pulmonary: No pertinent hx CENTRAL NERVOUS SYSTEM: Periperal neuropathy GI: No pertinent hx Heme/Onc: No pertinent hx Hepatobiliary: No pertinent hx, Cholelithiasis Psych: No pertinent hx Musculoskeletal: Osteoarthritis, Muscle atrophy, Weakness, Other Rheumatologic: No pertinent hx Infectious disease: No pertinent hx Renal/: No pertinent hx Endocrine: No pertinent hx Past Surgical History Past Surgical History: Other (Diverting colostomy) Family History Family History: Heart Disease, Other Social History ALCOHOL: none Drugs: None Current Problem List Problem List Problems Medical Problems: (1) Fever Status: Acute (2) Person under investigation for COVID-19 Status: Acute Current Medications Current Medications Current Medications Piperacillin Sod/ Tazobactam Sod 3.375 gm/Sodium Chloride 50 ml @ 100 mls/hr 1X ONCE IV Last administered on 11/02/19at 15:43; Start 11/02/19 at 15:30; Stop 11/02/19 at 15:59; Status DC Sodium Chloride 1,000 ml @ 1,000 mls/hr 1X ONCE IV Last administered on 11/02/19at 16:18; Start 11/02/19 at 16:15; Stop 11/02/19 at 17:14; Status DC Ondansetron HCl (Zofran) 4 mg PRN Q8HRS PRN IV NAUSEA/VOMITING Last administered on 11/02/19at 23:05; Start 11/02/19 at 16:15; Stop 11/03/19 at 16:14 Sodium Chloride 1,000 ml @ 150 mls/hr Q6H40M IV Last administered on 11/03/19at 07:45; Start 11/02/19 at 16:05; Stop 11/03/19 at 16:04 Acetaminophen (Tylenol) 650 mg PRN Q4HRS PRN PO FEVER > 100.3'F Last administered on 11/02/19at 23:22; Start 11/02/19 at 16:15; Stop 11/03/19 at 16:14 Oxycodone/ Acetaminophen (Percocet 5/325) 2 tab 1X ONCE PO Last administered on 11/02/19at 17:44; Start 11/02/19 at 17:15; Stop 11/02/19 at 17:16; Status DC Apixaban (Eliquis) 5 mg BID PO Last administered on 11/03/19at 08:29; Start 11/03/19 at 09:00 Fluticasone Propionate (Flonase) 2 spray DAILY NS Last administered on 11/03/19at 07:46; Start 11/03/19 at 09:00 Furosemide (Lasix) 40 mg DAILY PO Last administered on 11/03/19at 08:30; Start 11/03/19 at 09:00 Gabapentin (Neurontin) 300 mg TID PO Last administered on 11/03/19at 08:30; Start 11/03/19 at 09:00 Hydrochlorothiazide (Hydrodiuril) 25 mg DAILY PO Last administered on 11/03/19at 08:29; Start 11/03/19 at 09:00 Oxybutynin Chloride (Ditropan) 5 mg BID PO Last administered on 11/03/19at 08:29; Start 11/03/19 at 09:00 Oxycodone/ Acetaminophen (Percocet 5/325) 1 tab PRN Q4HRS PRN PO MILD PAIN, 1ST CHOICE; Start 11/02/19 at 21:30 Polyethylene Glycol (miraLAX PACKET) 17 gm DAILY PO Last administered on 11/03/19 08:28; Start 11/03/19 at 09:00 Sennosides (Senna) 8.6 mg BID PO Last administered on 11/03/19 08:29; Start 11/03/19 at 09:00 Spironolactone (Aldactone) 25 mg DAILY PO Last administered on 11/03/19 08:30; Start 11/03/19 at 09:00 Amlodipine Besylate (Norvasc) 10 mg QHS PO ; Start 11/03/19 at 21:00 Lactobacillus Rhamnosus (Culturelle) 1 cap BID PO Last administered on 11/03/19 08:29; Start 11/03/19 at 09:00 Metoprolol Succinate (Toprol Xl) 50 mg DAILY PO Last administered on 11/03/19 08:29; Start 11/03/19 at 09:00 Atorvastatin Calcium (Lipitor) 40 mg QHS PO ; Start 11/03/19 at 21:00 Info (Anti-Coagulation Monitoring By Pharmacy) 1 each PRN DAILY PRN MC SEE COMMENTS Last administered on 11/02/19at 22:30; Start 11/02/19 at 22:00 Losartan Potassium (Cozaar) 100 mg QHS PO ; Start 11/03/19 at 21:00 Piperacillin Sod/ Tazobactam Sod 3.375 gm/Sodium Chloride 50 ml @ 100 mls/hr Q6HRS IV Last administered on 11/03/19at 05:19; Start 11/03/19 at 00:00 Active Scripts Active Percocet 5-325 Mg Tablet (Oxycodone/Acetaminophen) 1 Each Tablet 1 Tab PO PRN Q4HRS PRN Reported Miralax (Polyethylene Glycol 3350) 17 Gm Powd.pack 1 Pkt PO DAILY Senokot (Sennosides) 8.6 Mg Tablet 8.6 Mg PO BID Hydrochlorothiazide Tablet (Hydrochlorothiazide) 25 Mg Tablet 25 Mg PO DAILY Crestor (Rosuvastatin Calcium) 5 Mg Tablet 10 Mg PO HS Amlodipine-Valsartan 10-320 mg (Amlodipine/Valsartan) 1 Each Tablet 1 Each PO HS Oxybutynin Chloride 5 Mg Tablet 5 Mg PO BID Spironolactone 25 Mg Tablet 25 Mg PO DAILY Furosemide 40 Mg Tablet 40 Mg PO DAILY Eliquis (Apixaban) 5 Mg Tablet 5 Mg PO BID Fluticasone Propionate Nasal [place] (Fluticasone Propionate) 16 Gm [place].susp 2 [place] NS DAILY Superior Digestive Enzyme (Digestive Enzymes Combo No.7) 1 Each Capsule 1 Each PO BID Gabapentin (Gabapentin) 300 Mg Capsule 300 Mg PO TID Toprol Xl (Metoprolol Succinate) 50 Mg Tab.er.24h 1 Tab PO DAILY Allergies Allergies: Coded Allergies: cephalexin (Verified Allergy, Intermediate, rash, 04/09/19) I S O L A T I O N *CONTACT* (Verified Allergy, Unknown, ECOLI, VRE, PSEUDOMONAS SACRAL WOUND; CHRONIC C-DIFF, 04/09/19) Physical Exam General: Alert, Oriented X3, Cooperative, mild distress HEENT: Atraumatic, PERRLA, EOMI, Mucous membr. moist/pink Lungs: Clear to auscultation, Normal air movement Heart: S1S2, RRR, no thrills, no rubs Abdomen: Normal bowel sounds, Soft, No tenderness, No hepatosplenomegaly, No masses, Other (LLQ ostomy site with good stool output) Extremities: No clubbing, No cyanosis Skin: Other (Gluteal pressure ulcers) Neuro: Cranial nerves 3-12 NL, Reflexes 2+ Psych/Mental Status: Mental status NL, Mood NL Vitals Vitals Vital Signs Date Time Temp Pulse Resp B/P (MAP) Pulse Ox O2 Delivery O2 Flow Rate FiO2 11/03/19 08:29 96 158/74 11/03/19 07:00 98.6 16 98 Room Air 98.6 Labs Labs Laboratory Tests Test 11/02/19 13:40 11/02/19 14:14 11/02/19 15:30 11/02/19 19:06 White Blood Count 8.3 x10^3/uL (4.0-11.0) Red Blood Count 4.07 x10^6/uL (4.30-5.70) Hemoglobin 12.6 g/dL (13.0-17.5) Hematocrit 35.4 % (39.0-53.0) Mean Corpuscular Volume 87 fL (79-100) Mean Corpuscular Hemoglobin 31 pg (25-35) Mean Corpuscular Hemoglobin Concent 36 g/dL (31-37) Red Cell Distribution Width 13.8 % (11.5-14.5) Platelet Count 210 x10^3/uL (140-400) Neutrophils (%) (Auto) 87 % (31-73) Lymphocytes (%) (Auto) 6 % (24-48) Monocytes (%) (Auto) 7 % (0-9) Eosinophils (%) (Auto) 0 % (0-3) Basophils (%) (Auto) 1 % (0-3) Neutrophils # (Auto) 7.2 x10^3/uL (1.8-7.7) Lymphocytes # (Auto) 0.5 x10^3/uL (1.0-4.8) Monocytes # (Auto) 0.6 x10^3/uL (0.0-1.1) Eosinophils # (Auto) 0.0 x10^3/uL (0.0-0.7) Basophils # (Auto) 0.0 x10^3/uL (0.0-0.2) Segmented Neutrophils % 85 % (35-66) Band Neutrophils % 5 % (0-9) Lymphocytes % 6 % (24-48) Monocytes % 3 % (0-10) Basophils % 1 % (0-3) Platelet Estimate Adequate (ADEQUATE) Prothrombin Time 15.7 SEC (11.7-14.0) Prothromb Time International Ratio 1.3 (0.8-1.1) Sodium Level 140 mmol/L (136-145) Potassium Level 4.0 mmol/L (3.5-5.1) Chloride Level 104 mmol/L (98-107) Carbon Dioxide Level 24 mmol/L (21-32) Anion Gap 12 (6-14) Blood Urea Nitrogen 23 mg/dL (8-26) Creatinine 1.0 mg/dL (0.7-1.3) Estimated GFR (Cockcroft-Gault) 74.8 BUN/Creatinine Ratio 23 (6-20) Glucose Level 113 mg/dL (70-99) Lactic Acid Level 2.1 mmol/L (0.4-2.0) 1.6 mmol/L (0.4-2.0) Calcium Level 8.7 mg/dL (8.5-10.1) Magnesium Level 2.1 mg/dL (1.8-2.4) Total Bilirubin 0.5 mg/dL (0.2-1.0) Aspartate Amino Transf (AST/SGOT) 31 U/L (15-37) Alanine Aminotransferase (ALT/SGPT) 64 U/L (16-63) Alkaline Phosphatase 122 U/L (46-116) Troponin I Quantitative < 0.017 ng/mL (0.000-0.055) TS-Izz-V-Type Natriuretic Peptide 366 pg/mL (0-124) Total Protein 6.8 g/dL (6.4-8.2) Albumin 2.9 g/dL (3.4-5.0) Albumin/Globulin Ratio 0.7 (1.0-1.7) O2 Saturation 97 % (92-99) Arterial Blood pH 7.53 (7.35-7.45) Arterial Blood pH (Temp corrected) 7.51 Arterial Blood pCO2 at Patient Temp 24 mmHg (35-46) Arterial Blood pCO2 (Temp correct) 26 mmHg Arterial Blood pO2 at Patient Temp 92 mmHg (65-108) Arterial Blood pO2 (Temp corrected) 102 mmHg Arterial Blood HCO3 20 mmol/L (21-28) Arterial Blood Base Excess -1 mmol/L (-3-3) FiO2 21 Urine Collection Type U cath Urine Color Yellow Urine Clarity Clear Urine pH 5.0 (<5.0-8.0) Urine Specific [place] 1.015 (1.000-1.030) Urine Protein Negative mg/dL (NEG-TRACE) Urine Glucose (UA) Negative mg/dL (NEG) Urine Ketones (Stick) Negative mg/dL (NEG) Urine Blood Negative (NEG) Urine Nitrite Positive (NEG) Urine Bilirubin Negative (NEG) Urine Urobilinogen Dipstick 0.2 mg/dL (0.2 mg/dL) Urine Leukocyte Esterase Small (NEG) Urine RBC 0 /HPF (0-2) Urine WBC 5-10 /HPF (0-4) Urine Bacteria Many /HPF (0-FEW) Urine Hyaline Casts Moderate /HPF Urine Mucus Slight /LPF Test 11/03/19 03:45 White Blood Count 7.2 x10^3/uL (4.0-11.0) Red Blood Count 3.81 x10^6/uL (4.30-5.70) Hemoglobin 11.7 g/dL (13.0-17.5) Hematocrit 33.4 % (39.0-53.0) Mean Corpuscular Volume 88 fL (79-100) Mean Corpuscular Hemoglobin 31 pg (25-35) Mean Corpuscular Hemoglobin Concent 35 g/dL (31-37) Red Cell Distribution Width 14.2 % (11.5-14.5) Platelet Count 191 x10^3/uL (140-400) Neutrophils (%) (Auto) 86 % (31-73) Lymphocytes (%) (Auto) 8 % (24-48) Monocytes (%) (Auto) 6 % (0-9) Eosinophils (%) (Auto) 0 % (0-3) Basophils (%) (Auto) 1 % (0-3) Neutrophils # (Auto) 6.2 x10^3/uL (1.8-7.7) Lymphocytes # (Auto) 0.6 x10^3/uL (1.0-4.8) Monocytes # (Auto) 0.4 x10^3/uL (0.0-1.1) Eosinophils # (Auto) 0.0 x10^3/uL (0.0-0.7) Basophils # (Auto) 0.0 x10^3/uL (0.0-0.2) Sodium Level 139 mmol/L (136-145) Potassium Level 3.8 mmol/L (3.5-5.1) Chloride Level 105 mmol/L (98-107) Carbon Dioxide Level 24 mmol/L (21-32) Anion Gap 10 (6-14) Blood Urea Nitrogen 20 mg/dL (8-26) Creatinine 0.8 mg/dL (0.7-1.3) Estimated GFR (Cockcroft-Gault) 96.7 BUN/Creatinine Ratio 25 (6-20) Glucose Level 124 mg/dL (70-99) Calcium Level 7.9 mg/dL (8.5-10.1) Total Bilirubin 0.4 mg/dL (0.2-1.0) Aspartate Amino Transf (AST/SGOT) 40 U/L (15-37) Alanine Aminotransferase (ALT/SGPT) 74 U/L (16-63) Alkaline Phosphatase 108 U/L (46-116) Total Protein 6.2 g/dL (6.4-8.2) Albumin 2.5 g/dL (3.4-5.0) Albumin/Globulin Ratio 0.7 (1.0-1.7) Laboratory Tests Test 11/02/19 13:40 11/02/19 14:14 11/02/19 15:30 11/02/19 19:06 White Blood Count 8.3 x10^3/uL (4.0-11.0) Red Blood Count 4.07 x10^6/uL (4.30-5.70) Hemoglobin 12.6 g/dL (13.0-17.5) Hematocrit 35.4 % (39.0-53.0) Mean Corpuscular Volume 87 fL (79-100) Mean Corpuscular Hemoglobin 31 pg (25-35) Mean Corpuscular Hemoglobin Concent 36 g/dL (31-37) Red Cell Distribution Width 13.8 % (11.5-14.5) Platelet Count 210 x10^3/uL (140-400) Neutrophils (%) (Auto) 87 % (31-73) Lymphocytes (%) (Auto) 6 % (24-48) Monocytes (%) (Auto) 7 % (0-9) Eosinophils (%) (Auto) 0 % (0-3) Basophils (%) (Auto) 1 % (0-3) Neutrophils # (Auto) 7.2 x10^3/uL (1.8-7.7) Lymphocytes # (Auto) 0.5 x10^3/uL (1.0-4.8) Monocytes # (Auto) 0.6 x10^3/uL (0.0-1.1) Eosinophils # (Auto) 0.0 x10^3/uL (0.0-0.7) Basophils # (Auto) 0.0 x10^3/uL (0.0-0.2) Segmented Neutrophils % 85 % (35-66) Band Neutrophils % 5 % (0-9) Lymphocytes % 6 % (24-48) Monocytes % 3 % (0-10) Basophils % 1 % (0-3) Platelet Estimate Adequate (ADEQUATE) Prothrombin Time 15.7 SEC (11.7-14.0) Prothromb Time International Ratio 1.3 (0.8-1.1) Sodium Level 140 mmol/L (136-145) Potassium Level 4.0 mmol/L (3.5-5.1) Chloride Level 104 mmol/L (98-107) Carbon Dioxide Level 24 mmol/L (21-32) Anion Gap 12 (6-14) Blood Urea Nitrogen 23 mg/dL (8-26) Creatinine 1.0 mg/dL (0.7-1.3) Estimated GFR (Cockcroft-Gault) 74.8 BUN/Creatinine Ratio 23 (6-20) Glucose Level 113 mg/dL (70-99) Lactic Acid Level 2.1 mmol/L (0.4-2.0) 1.6 mmol/L (0.4-2.0) Calcium Level 8.7 mg/dL (8.5-10.1) Magnesium Level 2.1 mg/dL (1.8-2.4) Total Bilirubin 0.5 mg/dL (0.2-1.0) Aspartate Amino Transf (AST/SGOT) 31 U/L (15-37) Alanine Aminotransferase (ALT/SGPT) 64 U/L (16-63) Alkaline Phosphatase 122 U/L (46-116) Troponin I Quantitative < 0.017 ng/mL (0.000-0.055) NL-Kez-B-Type Natriuretic Peptide 366 pg/mL (0-124) Total Protein 6.8 g/dL (6.4-8.2) Albumin 2.9 g/dL (3.4-5.0) Albumin/Globulin Ratio 0.7 (1.0-1.7) O2 Saturation 97 % (92-99) Arterial Blood pH 7.53 (7.35-7.45) Arterial Blood pH (Temp corrected) 7.51 Arterial Blood pCO2 at Patient Temp 24 mmHg (35-46) Arterial Blood pCO2 (Temp correct) 26 mmHg Arterial Blood pO2 at Patient Temp 92 mmHg (65-108) Arterial Blood pO2 (Temp corrected) 102 mmHg Arterial Blood HCO3 20 mmol/L (21-28) Arterial Blood Base Excess -1 mmol/L (-3-3) FiO2 21 Urine Collection Type U cath Urine Color Yellow Urine Clarity Clear Urine pH 5.0 (<5.0-8.0) Urine Specific [place] 1.015 (1.000-1.030) Urine Protein Negative mg/dL (NEG-TRACE) Urine Glucose (UA) Negative mg/dL (NEG) Urine Ketones (Stick) Negative mg/dL (NEG) Urine Blood Negative (NEG) Urine Nitrite Positive (NEG) Urine Bilirubin Negative (NEG) Urine Urobilinogen Dipstick 0.2 mg/dL (0.2 mg/dL) Urine Leukocyte Esterase Small (NEG) Urine RBC 0 /HPF (0-2) Urine WBC 5-10 /HPF (0-4) Urine Bacteria Many /HPF (0-FEW) Urine Hyaline Casts Moderate /HPF Urine Mucus Slight /LPF Test 11/03/19 03:45 White Blood Count 7.2 x10^3/uL (4.0-11.0) Red Blood Count 3.81 x10^6/uL (4.30-5.70) Hemoglobin 11.7 g/dL (13.0-17.5) Hematocrit 33.4 % (39.0-53.0) Mean Corpuscular Volume 88 fL (79-100) Mean Corpuscular Hemoglobin 31 pg (25-35) Mean Corpuscular Hemoglobin Concent 35 g/dL (31-37) Red Cell Distribution Width 14.2 % (11.5-14.5) Platelet Count 191 x10^3/uL (140-400) Neutrophils (%) (Auto) 86 % (31-73) Lymphocytes (%) (Auto) 8 % (24-48) Monocytes (%) (Auto) 6 % (0-9) Eosinophils (%) (Auto) 0 % (0-3) Basophils (%) (Auto) 1 % (0-3) Neutrophils # (Auto) 6.2 x10^3/uL (1.8-7.7) Lymphocytes # (Auto) 0.6 x10^3/uL (1.0-4.8) Monocytes # (Auto) 0.4 x10^3/uL (0.0-1.1) Eosinophils # (Auto) 0.0 x10^3/uL (0.0-0.7) Basophils # (Auto) 0.0 x10^3/uL (0.0-0.2) Sodium Level 139 mmol/L (136-145) Potassium Level 3.8 mmol/L (3.5-5.1) Chloride Level 105 mmol/L (98-107) Carbon Dioxide Level 24 mmol/L (21-32) Anion Gap 10 (6-14) Blood Urea Nitrogen 20 mg/dL (8-26) Creatinine 0.8 mg/dL (0.7-1.3) Estimated GFR (Cockcroft-Gault) 96.7 BUN/Creatinine Ratio 25 (6-20) Glucose Level 124 mg/dL (70-99) Calcium Level 7.9 mg/dL (8.5-10.1) Total Bilirubin 0.4 mg/dL (0.2-1.0) Aspartate Amino Transf (AST/SGOT) 40 U/L (15-37) Alanine Aminotransferase (ALT/SGPT) 74 U/L (16-63) Alkaline Phosphatase 108 U/L (46-116) Total Protein 6.2 g/dL (6.4-8.2) Albumin 2.5 g/dL (3.4-5.0) Albumin/Globulin Ratio 0.7 (1.0-1.7) Images Images CXR - Single upright portable exam performed. Heart and mediastinal contours are stable. Lungs are clear. No consolidation or pleural effusion. No pneumothorax. IMPRESSION: No acute radiographic abnormality. Renal US - The right kidney measures 13.2 cm [id number]. The left kidney measures 13.4 cm [id number]. No solid or cystic renal lesion is seen. There is no hydronephrosis. The bladder is not seen, likely due to relative recent catheterization. The aorta and inferior vena cava are partially obscured due to body habitus. IMPRESSION: Sonographically unremarkable kidneys VTE Prophylaxis Ordered VTE Prophylaxis Devices: Yes VTE Pharmacological Prophylaxi: Yes Assessment/Plan Assessment/Plan A/P: UTI - started on empiric zosyn. Will f/u culture results Multiple nonhealing pressure wounds involving sacrococcygeal, left ischium and bilateral heels with necrotic tissue and malodor S/p diverting colostomy - 04/10/2019 Sepsis - likely 2/2 UTI, less likely to be coccygeal wound. 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 FEN - General diet PPX - eliquis FULL CODE Dispo - inpatient 2 midnight 32 MIN PT EXAM, CHART REVIEW, > 50% OF TIME SPENT WITH EXAM, CHART REVIEW, PT CARE COORDINATION MANDY COOMBS MD November 03, 2019 09:00
[2019-11-03 10:00] VITALS: BP 119/68
[2019-11-03 14:00] VITALS: BP 144/73
[2019-11-03 19:20] VITALS: BP 132/69
[2019-11-03] MEDS: ACETAMINOPHEN 325 MG TABLET. PO PRN (20:14)
[2019-11-03] MEDS: amLODIPine BESYLATE 10 MG TABLET PO SCH (20:14)
[2019-11-03] MEDS: ATORVASTATIN CALCIUM 40 MG TABLET. PO SCH (20:14)
[2019-11-03] MEDS: LOSARTAN POTASSIUM 50 MG TABLET. PO SCH (20:15)
[2019-11-03 23:03] VITALS: BP 135/70
[2019-11-04 03:00] VITALS: BP 107/58
[2019-11-04] MEDS: PIPERACILLIN/TAZOBACTAM 3.375 GM in IV NORMAL SALINE 50ML 50 ML IV SCH ×4 (05:09→23:35)
[2019-11-04 05:23] LABS: BASO % 1 % (0-3); EOS # 0.5 x10^3/uL (0.0-0.7); EOS % 9 % (0-3); HEMOGLOBIN 11.4 g/dL (13.0-17.5); LYMPH % 17 % (24-48); MEAN CORPUSCULAR HEMOGLOBIN 30 pg (25-35); MEAN CORPUSCULAR HGB CONC 35 g/dL (31-37); MEAN CORPUSCULAR VOLUME 88 fL (79-100); MONO # 0.7 x10^3/uL (0.0-1.1); MONO % 11 % (0-9); NEUT # 3.7 x10^3/uL (1.8-7.7); NEUT % 63 % (31-73); PLATELET COUNT 178 x10^3/uL (140-400); RED BLOOD COUNT 3.76 x10^6/uL (4.30-5.70); WHITE BLOOD COUNT 5.9 x10^3/uL (4.0-11.0)
[2019-11-04 05:41] LABS: CALCIUM 8.2 mg/dL (8.5-10.1); CREATININE 0.9 mg/dL (0.7-1.3); GFR 84.4; POTASSIUM 3.6 mmol/L (3.5-5.1)
[2019-11-04 07:00] VITALS: BP 119/81
--- NOTE | 2019-11-04 08:39 | PDOC ---
PROGRESS NOTES Chief Complaint Chief Complaint A/P: UTI - started on empiric zosyn. Will f/u culture results Multiple nonhealing pressure wounds involving sacrococcygeal, left ischium and bilateral heels with necrotic tissue and malodor Right heel wound - wound care to see S/p diverting colostomy - 04/10/2019 Sepsis - likely 2/2 UTI, less likely to be coccygeal wound. 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 FEN - General diet PPX - eliquis FULL CODE Dispo - inpatient 2 midnight History of Present Illness History of Present Illness Mr Rust is a 64-year-old male with PMHx recent PE, transverse myelitis with paraplegia, neurogenic bladder, and multiple pressure wounds, who was admitted through ED c/o fever, body aches and just feeling terrible. He does have wounds on his coccyx which she is being treated for by wound care. He does self cath every 6 hours, but has been doing this less often due to weakness. He denies any upper respiratory symptoms such as cough or congestion and states he had a negative COVID test a few days prior to admission. He notes he had to do this at [facility] prior to his angiogram last week. Fever 101.7F in ED, WBC 7.2, lactate 2.1. [Was seen in wound clinic on 03/13 and directly admitted to [facility]. He also has recurrent Clostridium difficile infection (07/2018 and 11/2018) still on a taper of oral vancomycin and h/o e. coli UTI (self-caths up to 6 times daily). Transferred to [facility] and underwent diverting colostomy on 04/10/2019. He was discharged to [facility] and has been home since 08/23/2019]. COVID 19 negative. Afebrile overnight. Urine culture reported as klebsiella variicola. Overall he notes his has been sterile with his catheterizations during the day, but they have been struggling with this being at least his 4th UTI this year. He is asking for a Urology opinion. Vitals Vitals Vital Signs Date Time Temp Pulse Resp B/P (MAP) Pulse Ox O2 Delivery O2 Flow Rate FiO2 11/04/19 03:00 97.2 75 20 107/58 (74) 98 Nasal Cannula 2.0 97.2 Physical Exam General: Alert, Oriented X3, Cooperative, mild distress Heart: Regular rate, Normal S1, Normal S2 Lungs: Clear Abdomen: Normal bowel sounds, Soft, No tenderness, No hepatosplenomegaly, No masses, Other (LLQ ostomy site with good stool output) Extremities: No clubbing, No cyanosis Skin: Other (Gluteal pressure ulcers) Labs LABS Laboratory Tests Test 11/04/19 04:08 White Blood Count 5.9 x10^3/uL (4.0-11.0) Red Blood Count 3.76 x10^6/uL (4.30-5.70) Hemoglobin 11.4 g/dL (13.0-17.5) Hematocrit 33.0 % (39.0-53.0) Mean Corpuscular Volume 88 fL (79-100) Mean Corpuscular Hemoglobin 30 pg (25-35) Mean Corpuscular Hemoglobin Concent 35 g/dL (31-37) Red Cell Distribution Width 14.0 % (11.5-14.5) Platelet Count 178 x10^3/uL (140-400) Neutrophils (%) (Auto) 63 % (31-73) Lymphocytes (%) (Auto) 17 % (24-48) Monocytes (%) (Auto) 11 % (0-9) Eosinophils (%) (Auto) 9 % (0-3) Basophils (%) (Auto) 1 % (0-3) Neutrophils # (Auto) 3.7 x10^3/uL (1.8-7.7) Lymphocytes # (Auto) 1.0 x10^3/uL (1.0-4.8) Monocytes # (Auto) 0.7 x10^3/uL (0.0-1.1) Eosinophils # (Auto) 0.5 x10^3/uL (0.0-0.7) Basophils # (Auto) 0.0 x10^3/uL (0.0-0.2) Sodium Level 139 mmol/L (136-145) Potassium Level 3.6 mmol/L (3.5-5.1) Chloride Level 104 mmol/L (98-107) Carbon Dioxide Level 28 mmol/L (21-32) Anion Gap 7 (6-14) Blood Urea Nitrogen 16 mg/dL (8-26) Creatinine 0.9 mg/dL (0.7-1.3) Estimated GFR (Cockcroft-Gault) 84.4 Glucose Level 103 mg/dL (70-99) Calcium Level 8.2 mg/dL (8.5-10.1) Assessment and Plan Assessmemt and Plan Problems Medical Problems: (1) Fever Status: Acute (2) Person under investigation for COVID-19 Status: Acute Comment Review of Relevant I have reviewed the following items franc (where applicable) has been applied. Labs Laboratory Tests Test 11/02/19 13:40 11/02/19 13:45 11/02/19 14:14 11/02/19 15:30 White Blood Count 8.3 x10^3/uL (4.0-11.0) Red Blood Count 4.07 x10^6/uL (4.30-5.70) Hemoglobin 12.6 g/dL (13.0-17.5) Hematocrit 35.4 % (39.0-53.0) Mean Corpuscular Volume 87 fL (79-100) Mean Corpuscular Hemoglobin 31 pg (25-35) Mean Corpuscular Hemoglobin Concent 36 g/dL (31-37) Red Cell Distribution Width 13.8 % (11.5-14.5) Platelet Count 210 x10^3/uL (140-400) Neutrophils (%) (Auto) 87 % (31-73) Lymphocytes (%) (Auto) 6 % (24-48) Monocytes (%) (Auto) 7 % (0-9) Eosinophils (%) (Auto) 0 % (0-3) Basophils (%) (Auto) 1 % (0-3) Neutrophils # (Auto) 7.2 x10^3/uL (1.8-7.7) Lymphocytes # (Auto) 0.5 x10^3/uL (1.0-4.8) Monocytes # (Auto) 0.6 x10^3/uL (0.0-1.1) Eosinophils # (Auto) 0.0 x10^3/uL (0.0-0.7) Basophils # (Auto) 0.0 x10^3/uL (0.0-0.2) Segmented Neutrophils % 85 % (35-66) Band Neutrophils % 5 % (0-9) Lymphocytes % 6 % (24-48) Monocytes % 3 % (0-10) Basophils % 1 % (0-3) Platelet Estimate Adequate (ADEQUATE) Prothrombin Time 15.7 SEC (11.7-14.0) Prothromb Time International Ratio 1.3 (0.8-1.1) Sodium Level 140 mmol/L (136-145) Potassium Level 4.0 mmol/L (3.5-5.1) Chloride Level 104 mmol/L (98-107) Carbon Dioxide Level 24 mmol/L (21-32) Anion Gap 12 (6-14) Blood Urea Nitrogen 23 mg/dL (8-26) Creatinine 1.0 mg/dL (0.7-1.3) Estimated GFR (Cockcroft-Gault) 74.8 BUN/Creatinine Ratio 23 (6-20) Glucose Level 113 mg/dL (70-99) Lactic Acid Level 2.1 mmol/L (0.4-2.0) Calcium Level 8.7 mg/dL (8.5-10.1) Magnesium Level 2.1 mg/dL (1.8-2.4) Total Bilirubin 0.5 mg/dL (0.2-1.0) Aspartate Amino Transf (AST/SGOT) 31 U/L (15-37) Alanine Aminotransferase (ALT/SGPT) 64 U/L (16-63) Alkaline Phosphatase 122 U/L (46-116) Troponin I Quantitative < 0.017 ng/mL (0.000-0.055) QA-Aih-X-Type Natriuretic Peptide 366 pg/mL (0-124) Total Protein 6.8 g/dL (6.4-8.2) Albumin 2.9 g/dL (3.4-5.0) Albumin/Globulin Ratio 0.7 (1.0-1.7) Coronavirus (COVID-19)(PCR) See separate report O2 Saturation 97 % (92-99) Arterial Blood pH 7.53 (7.35-7.45) Arterial Blood pH (Temp corrected) 7.51 Arterial Blood pCO2 at Patient Temp 24 mmHg (35-46) Arterial Blood pCO2 (Temp correct) 26 mmHg Arterial Blood pO2 at Patient Temp 92 mmHg (65-108) Arterial Blood pO2 (Temp corrected) 102 mmHg Arterial Blood HCO3 20 mmol/L (21-28) Arterial Blood Base Excess -1 mmol/L (-3-3) FiO2 21 Urine Collection Type U cath Urine Color Yellow Urine Clarity Clear Urine pH 5.0 (<5.0-8.0) Urine Specific [place] 1.015 (1.000-1.030) Urine Protein Negative mg/dL (NEG-TRACE) Urine Glucose (UA) Negative mg/dL (NEG) Urine Ketones (Stick) Negative mg/dL (NEG) Urine Blood Negative (NEG) Urine Nitrite Positive (NEG) Urine Bilirubin Negative (NEG) Urine Urobilinogen Dipstick 0.2 mg/dL (0.2 mg/dL) Urine Leukocyte Esterase Small (NEG) Urine RBC 0 /HPF (0-2) Urine WBC 5-10 /HPF (0-4) Urine Bacteria Many /HPF (0-FEW) Urine Hyaline Casts Moderate /HPF Urine Mucus Slight /LPF Test 11/02/19 19:06 11/03/19 03:45 11/04/19 04:08 Lactic Acid Level 1.6 mmol/L (0.4-2.0) White Blood Count 7.2 x10^3/uL (4.0-11.0) 5.9 x10^3/uL (4.0-11.0) Red Blood Count 3.81 x10^6/uL (4.30-5.70) 3.76 x10^6/uL (4.30-5.70) Hemoglobin 11.7 g/dL (13.0-17.5) 11.4 g/dL (13.0-17.5) Hematocrit 33.4 % (39.0-53.0) 33.0 % (39.0-53.0) Mean Corpuscular Volume 88 fL (79-100) 88 fL (79-100) Mean Corpuscular Hemoglobin 31 pg (25-35) 30 pg (25-35) Mean Corpuscular Hemoglobin Concent 35 g/dL (31-37) 35 g/dL (31-37) Red Cell Distribution Width 14.2 % (11.5-14.5) 14.0 % (11.5-14.5) Platelet Count 191 x10^3/uL (140-400) 178 x10^3/uL (140-400) Neutrophils (%) (Auto) 86 % (31-73) 63 % (31-73) Lymphocytes (%) (Auto) 8 % (24-48) 17 % (24-48) Monocytes (%) (Auto) 6 % (0-9) 11 % (0-9) Eosinophils (%) (Auto) 0 % (0-3) 9 % (0-3) Basophils (%) (Auto) 1 % (0-3) 1 % (0-3) Neutrophils # (Auto) 6.2 x10^3/uL (1.8-7.7) 3.7 x10^3/uL (1.8-7.7) Lymphocytes # (Auto) 0.6 x10^3/uL (1.0-4.8) 1.0 x10^3/uL (1.0-4.8) Monocytes # (Auto) 0.4 x10^3/uL (0.0-1.1) 0.7 x10^3/uL (0.0-1.1) Eosinophils # (Auto) 0.0 x10^3/uL (0.0-0.7) 0.5 x10^3/uL (0.0-0.7) Basophils # (Auto) 0.0 x10^3/uL (0.0-0.2) 0.0 x10^3/uL (0.0-0.2) Sodium Level 139 mmol/L (136-145) 139 mmol/L (136-145) Potassium Level 3.8 mmol/L (3.5-5.1) 3.6 mmol/L (3.5-5.1) Chloride Level 105 mmol/L (98-107) 104 mmol/L (98-107) Carbon Dioxide Level 24 mmol/L (21-32) 28 mmol/L (21-32) Anion Gap 10 (6-14) 7 (6-14) Blood Urea Nitrogen 20 mg/dL (8-26) 16 mg/dL (8-26) Creatinine 0.8 mg/dL (0.7-1.3) 0.9 mg/dL (0.7-1.3) Estimated GFR (Cockcroft-Gault) 96.7 84.4 BUN/Creatinine Ratio 25 (6-20) Glucose Level 124 mg/dL (70-99) 103 mg/dL (70-99) Calcium Level 7.9 mg/dL (8.5-10.1) 8.2 mg/dL (8.5-10.1) Total Bilirubin 0.4 mg/dL (0.2-1.0) Aspartate Amino Transf (AST/SGOT) 40 U/L (15-37) Alanine Aminotransferase (ALT/SGPT) 74 U/L (16-63) Alkaline Phosphatase 108 U/L (46-116) Total Protein 6.2 g/dL (6.4-8.2) Albumin 2.5 g/dL (3.4-5.0) Albumin/Globulin Ratio 0.7 (1.0-1.7) Thyroid Stimulating Hormone (TSH) 0.662 uIU/mL (0.358-3.74) Laboratory Tests Test 11/04/19 04:08 White Blood Count 5.9 x10^3/uL (4.0-11.0) Red Blood Count 3.76 x10^6/uL (4.30-5.70) Hemoglobin 11.4 g/dL (13.0-17.5) Hematocrit 33.0 % (39.0-53.0) Mean Corpuscular Volume 88 fL (79-100) Mean Corpuscular Hemoglobin 30 pg (25-35) Mean Corpuscular Hemoglobin Concent 35 g/dL (31-37) Red Cell Distribution Width 14.0 % (11.5-14.5) Platelet Count 178 x10^3/uL (140-400) Neutrophils (%) (Auto) 63 % (31-73) Lymphocytes (%) (Auto) 17 % (24-48) Monocytes (%) (Auto) 11 % (0-9) Eosinophils (%) (Auto) 9 % (0-3) Basophils (%) (Auto) 1 % (0-3) Neutrophils # (Auto) 3.7 x10^3/uL (1.8-7.7) Lymphocytes # (Auto) 1.0 x10^3/uL (1.0-4.8) Monocytes # (Auto) 0.7 x10^3/uL (0.0-1.1) Eosinophils # (Auto) 0.5 x10^3/uL (0.0-0.7) Basophils # (Auto) 0.0 x10^3/uL (0.0-0.2) Sodium Level 139 mmol/L (136-145) Potassium Level 3.6 mmol/L (3.5-5.1) Chloride Level 104 mmol/L (98-107) Carbon Dioxide Level 28 mmol/L (21-32) Anion Gap 7 (6-14) Blood Urea Nitrogen 16 mg/dL (8-26) Creatinine 0.9 mg/dL (0.7-1.3) Estimated GFR (Cockcroft-Gault) 84.4 Glucose Level 103 mg/dL (70-99) Calcium Level 8.2 mg/dL (8.5-10.1) Microbiology 11/03/19 Blood Culture - Preliminary, Resulted NO GROWTH AFTER 1 DAY Medications Current Medications Piperacillin Sod/ Tazobactam Sod 3.375 gm/Sodium Chloride 50 ml @ 100 mls/hr 1X ONCE IV Last administered on 11/02/19at 15:43; Start 11/02/19 at 15:30; Stop 11/02/19 at 15:59; Status DC Sodium Chloride 1,000 ml @ 1,000 mls/hr 1X ONCE IV Last administered on 11/02/19at 16:18; Start 11/02/19 at 16:15; Stop 11/02/19 at 17:14; Status DC Ondansetron HCl (Zofran) 4 mg PRN Q8HRS PRN IV NAUSEA/VOMITING Last administered on 11/02/19at 23:05; Start 11/02/19 at 16:15; Stop 11/03/19 at 08:54; Status DC Sodium Chloride 1,000 ml @ 150 mls/hr Q6H40M IV Last administered on 11/03/19at 15:29; Start 11/02/19 at 16:05; Stop 11/03/19 at 16:04; Status DC Acetaminophen (Tylenol) 650 mg PRN Q4HRS PRN PO FEVER > 100.3'F Last administered on 11/03/19at 20:14; Start 11/02/19 at 16:15 Oxycodone/ Acetaminophen (Percocet 5/325) 2 tab 1X ONCE PO Last administered on 11/02/19 17:44; Start 11/02/19 at 17:15; Stop 11/02/19 at 17:16; Status DC Apixaban (Eliquis) 5 mg BID PO Last administered on 11/03/19 20:14; Start 11/03/19 at 09:00 Fluticasone Propionate (Flonase) 2 spray DAILY NS Last administered on 11/03/19 07:46; Start 11/03/19 at 09:00 Furosemide (Lasix) 40 mg DAILY PO Last administered on 11/03/19 08:30; Start 11/03/19 at 09:00 Gabapentin (Neurontin) 300 mg TID PO Last administered on 11/03/19 20:14; Start 11/03/19 at 09:00 Hydrochlorothiazide (Hydrodiuril) 25 mg DAILY PO Last administered on 11/03/19 08:29; Start 11/03/19 at 09:00 Oxybutynin Chloride (Ditropan) 5 mg BID PO Last administered on 11/03/19 20:14; Start 11/03/19 at 09:00 Oxycodone/ Acetaminophen (Percocet 5/325) 1 tab PRN Q4HRS PRN PO MODERATE- SEVERE PAIN; Start 11/02/19 at 21:30 Polyethylene Glycol (miraLAX PACKET) 17 gm DAILY PO Last administered on 11/03/19 08:28; Start 11/03/19 at 09:00 Sennosides (Senna) 8.6 mg BID PO Last administered on 11/03/19 20:13; Start 11/03/19 at 09:00 Spironolactone (Aldactone) 25 mg DAILY PO Last administered on 11/03/19 08:30; Start 11/03/19 at 09:00 Amlodipine Besylate (Norvasc) 10 mg QHS PO Last administered on 11/03/19 20:14; Start 11/03/19 at 21:00 Lactobacillus Rhamnosus (Culturelle) 1 cap BID PO Last administered on 11/03/19 20:13; Start 11/03/19 at 09:00 Metoprolol Succinate (Toprol Xl) 50 mg DAILY PO Last administered on 11/03/19at 08:29; Start 11/03/19 at 09:00 Atorvastatin Calcium (Lipitor) 40 mg QHS PO Last administered on 11/03/19at 20:14; Start 11/03/19 at 21:00 Info (Anti-Coagulation Monitoring By Pharmacy) 1 each PRN DAILY PRN MC SEE COMMENTS Last administered on 11/02/19at 22:30; Start 11/02/19 at 22:00 Losartan Potassium (Cozaar) 100 mg QHS PO Last administered on 11/03/19at 20:15; Start 11/03/19 at 21:00 Piperacillin Sod/ Tazobactam Sod 3.375 gm/Sodium Chloride 50 ml @ 100 mls/hr Q6HRS IV Last administered on 11/04/19at 05:09; Start 11/03/19 at 00:00 Ondansetron HCl (Zofran) 4 mg PRN Q4HRS PRN IV NAUSEA/VOMITING; Start 11/03/19 at 09:00 Active Scripts Active Percocet 5-325 Mg Tablet (Oxycodone/Acetaminophen) 1 Each Tablet 1 Tab PO PRN Q4HRS PRN Reported Miralax (Polyethylene Glycol 3350) 17 Gm Powd.pack 1 Pkt PO DAILY Senokot (Sennosides) 8.6 Mg Tablet 8.6 Mg PO BID Hydrochlorothiazide Tablet (Hydrochlorothiazide) 25 Mg Tablet 25 Mg PO DAILY Crestor (Rosuvastatin Calcium) 5 Mg Tablet 10 Mg PO HS Amlodipine-Valsartan 10-320 mg (Amlodipine/Valsartan) 1 Each Tablet 1 Each PO HS Oxybutynin Chloride 5 Mg Tablet 5 Mg PO BID Spironolactone 25 Mg Tablet 25 Mg PO DAILY Furosemide 40 Mg Tablet 40 Mg PO DAILY Eliquis (Apixaban) 5 Mg Tablet 5 Mg PO BID Fluticasone Propionate Nasal [place] (Fluticasone Propionate) 16 Gm [place].susp 2 [place] NS DAILY Superior Digestive Enzyme (Digestive Enzymes Combo No.7) 1 Each Capsule 1 Each PO BID Gabapentin (Gabapentin) 300 Mg Capsule 300 Mg PO TID Toprol Xl (Metoprolol Succinate) 50 Mg Tab.er.24h 1 Tab PO DAILY Vitals/I & O Vital Sign - Last 24 Hours 11/03/19 11/03/19 11/03/19 11/03/19 10:00 14:00 19:20 20:03 Temp 98.6 97.9 99.9 98.6 97.9 99.9 Pulse 75 83 91 Resp 17 18 18 B/P (MAP) 119/68 (85) 144/73 (96) 132/69 (90) Pulse Ox 96 91 96 O2 Delivery Room Air Room Air Room Air Room Air 11/03/19 11/03/19 11/03/19 11/04/19 20:14 20:15 23:03 03:00 Temp 99.1 97.2 99.1 97.2 Pulse 91 91 87 75 Resp 20 20 B/P (MAP) 132/69 132/69 135/70 (91) 107/58 (74) Pulse Ox 96 98 O2 Delivery Room Air Nasal Cannula O2 Flow Rate 2.0 Intake and Output 11/03/19 11/03/19 11/04/19 15:00 23:00 07:00 Intake Total 300 ml 0 ml 100 ml Output Total 1 ml 1450 ml 2400 ml Balance 299 ml -1450 ml -2300 ml MANDY COOMBS MD November 04, 2019 08:39
[2019-11-04] MEDS: FLUTICASONE 50MCG/NASAL SPRAY 16GM BOTTLE. NS SCH (09:00)
[2019-11-04] MEDS: SPIRONOLACTONE 25 MG TABLET PO SCH (09:29)
[2019-11-04] MEDS: SENNOSIDES 8.6 MG TABLET PO SCH ×2 (09:29→20:50)
[2019-11-04] MEDS: LACTOBACILLUS RHAMNOSUS GG 1 CAPSULE. PO SCH ×2 (09:29→20:49)
[2019-11-04] MEDS: FUROSEMIDE 40 MG TABLET. PO SCH (09:29)
[2019-11-04] MEDS: METOPROLOL SUCC 24HR ER 50 MG TAB.ER.24H. PO SCH (09:30)
[2019-11-04] MEDS: GABAPENTIN 300 MG CAPSULE. PO SCH ×3 (09:30→20:50)
[2019-11-04] MEDS: APIXABAN 5 MG TABLET. PO SCH ×2 (09:30→20:49)
[2019-11-04] MEDS: OXYBUTYNIN CHLORIDE 5 MG TABLET PO SCH ×2 (09:30→20:49)
[2019-11-04] MEDS: hydroCHLOROthiazide 25 MG TABLET PO SCH (09:30)
[2019-11-04] MEDS: POLYETHYLENE GLYCOL 3350 17 GM PACKET. PO SCH (09:30)
--- NOTE | 2019-11-04 10:24 | NUR ---
pt covid negative. no orders for retest per Dr. Davila (ID and PULM neither one are consulted). orders to transfer off unit when bed available.
[2019-11-04] MEDS: ASCORBIC ACID 500 MG TABLET PO SCH (10:55)
[2019-11-04] MEDS: MULTIVITAMIN with MINERAL TABLET. PO SCH (10:55)
[2019-11-04 11:00] VITALS: BP 113/75
--- NOTE | 2019-11-04 12:15 | NUR ---
IP: Pt is COVID negative.
--- NOTE | 2019-11-04 14:24 | NUR ---
SS following for discharge planning. SS reviewed pt chart and discussed with pt RN. Pt is from home with spouse and is currently requiring oxygen. Pt reported to RN that he had home healthcare at home. Pt is COVID19 negative. SS will continue to follow for discharge planning.
[2019-11-04] MEDS: ANTI-COAG MONITOR BY PHARMACY. MC PRN (14:37)
[2019-11-04 14:50] VITALS: BP 116/75
--- NOTE | 2019-11-04 16:57 | NUR ---
report given to BRITTANEY Harrison. pt transferred to room 652
--- NOTE | 2019-11-04 17:53 | NUR ---
Wound Care Wound Type/Assessment: Left Ischium healing Stage III pressure ulcer, very small and superficial, much improved since last visit to the wound clinic in March 2019. Wound is almost healed, redressed with contact layer and foam dressing. Coccyx and right ischial wounds are healed, but pt's right plantar heel with pus and foul odor after packing was removed. R heel cleaned with saline, wound culture obtained, wound bed is slough covered, Unstageable pressure ulcer at this point, wound repacked with Iodoform packing and covered with a foam dressing. Findings discussed with pt's RN, Hunter. Treatment Recommendations/Plan: Turn Q2 hours to L & R sides, float heels, X-ray to R heel. Education provided: to pt re: wounds and POC. Offloading surface/device: P500 bed, wedge, pillows Recommended Referrals/Tests: R heel imaging and possible surgical consult depending on findings Discharge Recommendations for dressings: contact layer and foam for ischium, R heel pending image findings
[2019-11-04 19:00] VITALS: BP 146/90
--- NOTE | 2019-11-04 19:41 | RAD ---
FOOT RIGHT 3V 11/04/2019 5:26 PM INDICATION: Deep wound, drainage COMPARISON: None available. TECHNIQUE: 3 views of the right foot are provided. FINDINGS/ IMPRESSION: 1. There is a mildly displaced fracture involving the base of the fifth metatarsal with intra-articular extension. 2. Periarticular osteopenia is identified at the second through fifth tarsometatarsal joints. Osteomyelitis may present with similar findings, although there are no definite cortical erosions present. Correlate with any underlying rheumatoid arthritis or inflammatory arthropathy. 3. Soft tissue swelling is noted about the ankle with possible soft tissue defect along the heel of the foot. Plantar calcaneal enthesophyte. No osseous erosion of the calcaneus. There may be a nondisplaced fracture involving the ventral aspect of the calcaneus. Further evaluation with CT could be of benefit given underlying osteopenia. Electronically signed by: Missy Lima MD (11/04/2019 7:38 PM) [facility] [place]
[2019-11-04] MEDS: ATORVASTATIN CALCIUM 40 MG TABLET. PO SCH (20:49)
[2019-11-04] MEDS: amLODIPine BESYLATE 10 MG TABLET PO SCH (20:49)
[2019-11-04] MEDS: LOSARTAN POTASSIUM 50 MG TABLET. PO SCH (20:50)
[2019-11-04 23:00] VITALS: BP 138/83
[2019-11-05 03:00] VITALS: BP 11/74
[2019-11-05] MEDS: PIPERACILLIN/TAZOBACTAM 3.375 GM in IV NORMAL SALINE 50ML 50 ML IV SCH (06:02)
[2019-11-05 07:36] VITALS: BP 118/70
--- NOTE | 2019-11-05 08:07 | PDOC ---
PROGRESS NOTES Chief Complaint Chief Complaint A/P: UTI - started on empiric zosyn. Will f/u culture results Multiple nonhealing pressure wounds involving sacrococcygeal, left ischium and bilateral heels with necrotic tissue and malodor Right heel wound - wound care to see, debrided S/p diverting colostomy - 04/10/2019 Sepsis - likely 2/2 UTI, less likely to be coccygeal wound. 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 FEN - General diet PPX - eliquis FULL CODE Dispo - inpatient 2 midnight History of Present Illness History of Present Illness Mr Rust is a 64-year-old male with PMHx recent PE, transverse myelitis with paraplegia, neurogenic bladder, and multiple pressure wounds, who was admitted through ED c/o fever, body aches and just feeling terrible. He does have wounds on his coccyx which she is being treated for by wound care. He does self cath every 6 hours, but has been doing this less often due to weakness. He denies any upper respiratory symptoms such as cough or congestion and states he had a negative COVID test a few days prior to admission. He notes he had to do this at [facility] prior to his angiogram last week. Fever 101.7F in ED, WBC 7.2, lactate 2.1. [Was seen in wound clinic on 03/[address] [facility]. He also has recurrent Clostridium difficile infection (07/2018 and 11/2018) still on a taper of oral vancomycin and h/o e. coli UTI (self-caths up to 6 times daily). Transferred to [facility] and underwent diverting colostomy on 04/10/2019. He was discharged to [facility] and has been home since 08/23/2019]. 11/03: COVID 19 negative. Afebrile overnight. Urine culture reported as klebsiella variicola. Overall he notes his has been sterile with his ca theterizations during the day, but they have been struggling with this being at least his 4th UTI this year. He is asking for a Urology opinion. Heel wound debrided and redressed. Afebrile. ID consulted. He is feeling improved. Culture sensitivities pending. No CP or SOB Vitals Vitals Vital Signs Date Time Temp Pulse Resp B/P (MAP) Pulse Ox O2 Delivery O2 Flow Rate FiO2 11/05/19 07:36 97.5 68 18 118/70 (86) 97 Nasal Cannula 2.0 97.5 Physical Exam General: Alert, Oriented X3, Cooperative, mild distress Heart: Regular rate, Normal S1, Normal S2 Lungs: Clear Abdomen: Normal bowel sounds, Soft, No tenderness, No hepatosplenomegaly, No masses, Other (LLQ ostomy site with good stool output) Extremities: No clubbing, No cyanosis Skin: Other (Gluteal pressure ulcers) Assessment and Plan Assessmemt and Plan Problems Medical Problems: (1) Fever Status: Acute (2) Person under investigation for COVID-19 Status: Acute Comment Review of Relevant I have reviewed the following items franc (where applicable) has been applied. Labs Laboratory Tests Test 11/04/19 04:08 White Blood Count 5.9 x10^3/uL (4.0-11.0) Red Blood Count 3.76 x10^6/uL (4.30-5.70) Hemoglobin 11.4 g/dL (13.0-17.5) Hematocrit 33.0 % (39.0-53.0) Mean Corpuscular Volume 88 fL (79-100) Mean Corpuscular Hemoglobin 30 pg (25-35) Mean Corpuscular Hemoglobin Concent 35 g/dL (31-37) Red Cell Distribution Width 14.0 % (11.5-14.5) Platelet Count 178 x10^3/uL (140-400) Neutrophils (%) (Auto) 63 % (31-73) Lymphocytes (%) (Auto) 17 % (24-48) Monocytes (%) (Auto) 11 % (0-9) Eosinophils (%) (Auto) 9 % (0-3) Basophils (%) (Auto) 1 % (0-3) Neutrophils # (Auto) 3.7 x10^3/uL (1.8-7.7) Lymphocytes # (Auto) 1.0 x10^3/uL (1.0-4.8) Monocytes # (Auto) 0.7 x10^3/uL (0.0-1.1) Eosinophils # (Auto) 0.5 x10^3/uL (0.0-0.7) Basophils # (Auto) 0.0 x10^3/uL (0.0-0.2) Sodium Level 139 mmol/L (136-145) Potassium Level 3.6 mmol/L (3.5-5.1) Chloride Level 104 mmol/L (98-107) Carbon Dioxide Level 28 mmol/L (21-32) Anion Gap 7 (6-14) Blood Urea Nitrogen 16 mg/dL (8-26) Creatinine 0.9 mg/dL (0.7-1.3) Estimated GFR (Cockcroft-Gault) 84.4 Glucose Level 103 mg/dL (70-99) Calcium Level 8.2 mg/dL (8.5-10.1) Microbiology 11/03/19 Blood Culture - Preliminary, Resulted NO GROWTH AFTER 2 DAYS 11/02/19 Urine Culture - Preliminary, Resulted Medications Current Medications Piperacillin Sod/ Tazobactam Sod 3.375 gm/Sodium Chloride 50 ml @ 100 mls/hr 1X ONCE IV Last administered on 11/02/19at 15:43; Start 11/02/19 at 15:30; Stop 11/02/19 at 15:59; Status DC Sodium Chloride 1,000 ml @ 1,000 mls/hr 1X ONCE IV Last administered on 11/02/19at 16:18; Start 11/02/19 at 16:15; Stop 11/02/19 at 17:14; Status DC Ondansetron HCl (Zofran) 4 mg PRN Q8HRS PRN IV NAUSEA/VOMITING Last administered on 11/02/19at 23:05; Start 11/02/19 at 16:15; Stop 11/03/19 at 08:54; Status DC Sodium Chloride 1,000 ml @ 150 mls/hr Q6H40M IV Last administered on 11/03/19at 15:29; Start 11/02/19 at 16:05; Stop 11/03/19 at 16:04; Status DC Acetaminophen (Tylenol) 650 mg PRN Q4HRS PRN PO FEVER > 100.3'F Last administered on 11/03/19 20:14; Start 11/02/19 at 16:15 Oxycodone/ Acetaminophen (Percocet 5/325) 2 tab 1X ONCE PO Last administered on 11/02/19 17:44; Start 11/02/19 at 17:15; Stop 11/02/19 at 17:16; Status DC Apixaban (Eliquis) 5 mg BID PO Last administered on 11/04/19 20:49; Start 11/03/19 at 09:00 Fluticasone Propionate (Flonase) 2 spray DAILY NS Last administered on 11/04/19 09:00; Start 11/03/19 at 09:00 Furosemide (Lasix) 40 mg DAILY PO Last administered on 11/04/19 09:29; Start 11/03/19 at 09:00 Gabapentin (Neurontin) 300 mg TID PO Last administered on 11/04/19 20:50; Start 11/03/19 at 09:00 Hydrochlorothiazide (Hydrodiuril) 25 mg DAILY PO Last administered on 11/04/19 09:30; Start 11/03/19 at 09:00 Oxybutynin Chloride (Ditropan) 5 mg BID PO Last administered on 11/04/19 20:49; Start 11/03/19 at 09:00 Oxycodone/ Acetaminophen (Percocet 5/325) 1 tab PRN Q4HRS PRN PO MODERATE- SEVERE PAIN; Start 11/02/19 at 21:30 Polyethylene Glycol (miraLAX PACKET) 17 gm DAILY PO Last administered on 11/04/19 09:30; Start 11/03/19 at 09:00 Sennosides (Senna) 8.6 mg BID PO Last administered on 11/04/19 20:50; Start 11/03/19 at 09:00 Spironolactone (Aldactone) 25 mg DAILY PO Last administered on 11/04/19 09:29; Start 11/03/19 at 09:00 Amlodipine Besylate (Norvasc) 10 mg QHS PO Last administered on 11/04/19 20:49; Start 11/03/19 at 21:00 Lactobacillus Rhamnosus (Culturelle) 1 cap BID PO Last administered on 11/04/19 20:49; Start 11/03/19 at 09:00 Metoprolol Succinate (Toprol Xl) 50 mg DAILY PO Last administered on 11/04/19 09:30; Start 11/03/19 at 09:00 Atorvastatin Calcium (Lipitor) 40 mg QHS PO Last administered on 11/04/19 20:49; Start 11/03/19 at 21:00 Info (Anti-Coagulation Monitoring By Pharmacy) 1 each PRN DAILY PRN MC SEE COMMENTS Last administered on 11/04/19 14:37; Start 11/02/19 at 22:00 Losartan Potassium (Cozaar) 100 mg QHS PO Last administered on 11/04/19 20:50; Start 11/03/19 at 21:00 Piperacillin Sod/ Tazobactam Sod 3.375 gm/Sodium Chloride 50 ml @ 100 mls/hr Q6HRS IV Last administered on 11/05/19 06:02; Start 11/03/19 at 00:00 Ondansetron HCl (Zofran) 4 mg PRN Q4HRS PRN IV NAUSEA/VOMITING; Start 11/03/19 at 09:00 Multivitamins (Thera M Plus) 1 tab DAILY PO Last administered on 11/04/19 10:55; Start 11/04/19 at 11:00 Ascorbic Acid (Vitamin C) 500 mg DAILY PO Last administered on 11/04/19 10:55; Start 11/04/19 at 11:00 Active Scripts Active Percocet 5-325 Mg Tablet (Oxycodone/Acetaminophen) 1 Each Tablet 1 Tab PO PRN Q4HRS PRN Reported Miralax (Polyethylene Glycol 3350) 17 Gm Powd.pack 1 Pkt PO DAILY Senokot (Sennosides) 8.6 Mg Tablet 8.6 Mg PO BID Hydrochlorothiazide Tablet (Hydrochlorothiazide) 25 Mg Tablet 25 Mg PO DAILY Crestor (Rosuvastatin Calcium) 5 Mg Tablet 10 Mg PO HS Amlodipine-Valsartan 10-320 mg (Amlodipine/Valsartan) 1 Each Tablet 1 Each PO HS Oxybutynin Chloride 5 Mg Tablet 5 Mg PO BID Spironolactone 25 Mg Tablet 25 Mg PO DAILY Furosemide 40 Mg Tablet 40 Mg PO DAILY Eliquis (Apixaban) 5 Mg Tablet 5 Mg PO BID Fluticasone Propionate Nasal [place] (Fluticasone Propionate) 16 Gm [place].susp 2 [place] NS DAILY Superior Digestive Enzyme (Digestive Enzymes Combo No.7) 1 Each Capsule 1 Each PO BID Gabapentin (Gabapentin) 300 Mg Capsule 300 Mg PO TID Toprol Xl (Metoprolol Succinate) 50 Mg Tab.er.24h 1 Tab PO DAILY Vitals/I & O Vital Sign - Last 24 Hours 11/04/19 11/04/19 11/04/19 11/04/19 09:30 11:00 14:50 19:00 Temp 97.6 98.0 97.6 97.6 98.0 97.6 Pulse 87 90 77 82 Resp 18 18 B/P (MAP) 119/81 113/75 (88) 116/75 (89) 146/90 (108) Pulse Ox 99 99 97 O2 Delivery Nasal Cannula Nasal Cannula Nasal Cannula O2 Flow Rate 2.0 2.0 2.0 11/04/19 11/04/19 11/04/19 11/04/19 20:00 20:49 20:50 23:00 Temp 97.9 97.9 Pulse 82 82 73 Resp 18 B/P (MAP) 146/90 146/90 138/83 (101) Pulse Ox 96 O2 Delivery Nasal Cannula Nasal Cannula O2 Flow Rate 2.0 2.0 11/05/19 11/05/19 03:00 07:36 Temp 98.0 97.5 98.0 97.5 Pulse 67 68 Resp 18 18 B/P (MAP) 11/74 (53) 118/70 (86) Pulse Ox 98 97 O2 Delivery Nasal Cannula Nasal Cannula O2 Flow Rate 2.0 2.0 Intake and Output 11/04/19 11/04/19 11/05/19 15:00 23:00 07:00 Intake Total 900 ml 50 ml 150 ml Output Total 1500 ml 1500 ml Balance 900 ml -1450 ml -1350 ml MANDY COOMBS MD November 05, 2019 08:07
--- NOTE | 2019-11-05 08:23 | PDOC2 ---
CONSULT Date of Consult Date of Consult DATE: 11/05/19 TIME: 08:19 Reason for Consult Reason for Consult: Paraplegic with decubitus ulcer at the coccyx and heels of the feet, Referring Physician Referring Physician: Giovanni Identification/Chief Complaint Chief Complaint Fever chills Source Source: Chart review, Patient History of Present Illness Reason for Visit: Patient is a 64-year-old gentleman with paraplegia well-known to the service as he had a diverting colostomy done several months ago to help with healing of a decubitus ulcer that was being contaminated by stool. Patient states his colostomy is working well he is feeling much better this morning no more fevers or chills. Currently been getting wound care for decubitus ulcer as well as heel ulcers. Patient was found to have a urinary tract infection as he was having to self cath. Past Medical History Cardiovascular: HTN, Hyperlipidemia, Other Pulmonary: No pertinent hx CENTRAL NERVOUS SYSTEM: Periperal neuropathy GI: No pertinent hx Heme/Onc: No pertinent hx Hepatobiliary: No pertinent hx, Cholelithiasis Psych: No pertinent hx Musculoskeletal: Osteoarthritis, Muscle atrophy, Weakness, Other Rheumatologic: No pertinent hx Infectious disease: No pertinent hx Renal/: No pertinent hx Endocrine: No pertinent hx Past Surgical History Past Surgical History: Other (Diverting colostomy) Family History Family History: Heart Disease, Other Social History ALCOHOL: none Drugs: None Lives: with Family Current Problem List Problem List Problems Medical Problems: (1) Fever Status: Acute (2) Person under investigation for COVID-19 Status: Acute Current Medications Current Medications Current Medications Piperacillin Sod/ Tazobactam Sod 3.375 gm/Sodium Chloride 50 ml @ 100 mls/hr 1X ONCE IV Last administered on 11/02/19at 15:43; Start 11/02/19 at 15:30; Stop 11/02/19 at 15:59; Status DC Sodium Chloride 1,000 ml @ 1,000 mls/hr 1X ONCE IV Last administered on 11/02/19at 16:18; Start 11/02/19 at 16:15; Stop 11/02/19 at 17:14; Status DC Ondansetron HCl (Zofran) 4 mg PRN Q8HRS PRN IV NAUSEA/VOMITING Last administered on 11/02/19at 23:05; Start 11/02/19 at 16:15; Stop 11/03/19 at 08:54; Status DC Sodium Chloride 1,000 ml @ 150 mls/hr Q6H40M IV Last administered on 11/03/19at 15:29; Start 11/02/19 at 16:05; Stop 11/03/19 at 16:04; Status DC Acetaminophen (Tylenol) 650 mg PRN Q4HRS PRN PO FEVER > 100.3'F Last administered on 11/03/19at 20:14; Start 11/02/19 at 16:15 Oxycodone/ Acetaminophen (Percocet 5/325) 2 tab 1X ONCE PO Last administered on 11/02/19at 17:44; Start 11/02/19 at 17:15; Stop 11/02/19 at 17:16; Status DC Apixaban (Eliquis) 5 mg BID PO Last administered on 11/04/19at 20:49; Start 11/03/19 at 09:00 Fluticasone Propionate (Flonase) 2 spray DAILY NS Last administered on 11/04/19at 09:00; Start 11/03/19 at 09:00 Furosemide (Lasix) 40 mg DAILY PO Last administered on 11/04/19at 09:29; Start 11/03/19 at 09:00 Gabapentin (Neurontin) 300 mg TID PO Last administered on 11/04/19 20:50; Start 11/03/19 at 09:00 Hydrochlorothiazide (Hydrodiuril) 25 mg DAILY PO Last administered on 11/04/19at 09:30; Start 11/03/19 at 09:00 Oxybutynin Chloride (Ditropan) 5 mg BID PO Last administered on 11/04/19at 20:49; Start 11/03/19 at 09:00 Oxycodone/ Acetaminophen (Percocet 5/325) 1 tab PRN Q4HRS PRN PO MODERATE- SEVERE PAIN; Start 11/02/19 at 21:30 Polyethylene Glycol (miraLAX PACKET) 17 gm DAILY PO Last administered on 11/04/19at 09:30; Start 11/03/19 at 09:00 Sennosides (Senna) 8.6 mg BID PO Last administered on 11/04/19at 20:50; Start 11/03/19 at 09:00 Spironolactone (Aldactone) 25 mg DAILY PO Last administered on 11/04/19 09:29; Start 11/03/19 at 09:00 Amlodipine Besylate (Norvasc) 10 mg QHS PO Last administered on 11/04/19 20:49; Start 11/03/19 at 21:00 Lactobacillus Rhamnosus (Culturelle) 1 cap BID PO Last administered on 11/04/19 20:49; Start 11/03/19 at 09:00 Metoprolol Succinate (Toprol Xl) 50 mg DAILY PO Last administered on 11/04/19 09:30; Start 11/03/19 at 09:00 Atorvastatin Calcium (Lipitor) 40 mg QHS PO Last administered on 11/04/19 20:49; Start 11/03/19 at 21:00 Info (Anti-Coagulation Monitoring By Pharmacy) 1 each PRN DAILY PRN MC SEE COMMENTS Last administered on 11/04/19 14:37; Start 11/02/19 at 22:00 Losartan Potassium (Cozaar) 100 mg QHS PO Last administered on 11/04/19 20:50; Start 11/03/19 at 21:00 Piperacillin Sod/ Tazobactam Sod 3.375 gm/Sodium Chloride 50 ml @ 100 mls/hr Q6HRS IV Last administered on 11/05/19 06:02; Start 11/03/19 at 00:00 Ondansetron HCl (Zofran) 4 mg PRN Q4HRS PRN IV NAUSEA/VOMITING; Start 11/03/19 at 09:00 Multivitamins (Thera M Plus) 1 tab DAILY PO Last administered on 11/04/19 10:55; Start 11/04/19 at 11:00 Ascorbic Acid (Vitamin C) 500 mg DAILY PO Last administered on 11/04/19 10:55; Start 11/04/19 at 11:00 Active Scripts Active Percocet 5-325 Mg Tablet (Oxycodone/Acetaminophen) 1 Each Tablet 1 Tab PO PRN Q4HRS PRN Reported Miralax (Polyethylene Glycol 3350) 17 Gm Powd.pack 1 Pkt PO DAILY Senokot (Sennosides) 8.6 Mg Tablet 8.6 Mg PO BID Hydrochlorothiazide Tablet (Hydrochlorothiazide) 25 Mg Tablet 25 Mg PO DAILY Crestor (Rosuvastatin Calcium) 5 Mg Tablet 10 Mg PO HS Amlodipine-Valsartan 10-320 mg (Amlodipine/Valsartan) 1 Each Tablet 1 Each PO HS Oxybutynin Chloride 5 Mg Tablet 5 Mg PO BID Spironolactone 25 Mg Tablet 25 Mg PO DAILY Furosemide 40 Mg Tablet 40 Mg PO DAILY Eliquis (Apixaban) 5 Mg Tablet 5 Mg PO BID Fluticasone Propionate Nasal [place] (Fluticasone Propionate) 16 Gm [place].susp 2 [place] NS DAILY Superior Digestive Enzyme (Digestive Enzymes Combo No.7) 1 Each Capsule 1 Each PO BID Gabapentin (Gabapentin) 300 Mg Capsule 300 Mg PO TID Toprol Xl (Metoprolol Succinate) 50 Mg Tab.er.24h 1 Tab PO DAILY Allergies Allergies: Coded Allergies: cephalexin (Verified Allergy, Intermediate, rash, 04/09/19) I S O L A T I O N *CONTACT* (Verified Allergy, Unknown, ECOLI, VRE, PSEUDOMONAS SACRAL WOUND; CHRONIC C-DIFF, 04/09/19) ROS General: YES: Chills, Malaise Physical Exam General: Alert, Oriented X3, Cooperative, No acute distress HEENT: Atraumatic Lungs: Clear to auscultation, Normal air movement Heart: Regular rate, No murmurs Abdomen: Normal bowel sounds, Soft, No tenderness Extremities: Other (Mild bilateral pedal edema) Skin: Other (Wounds are dressed currently getting local wound care) Psych/Mental Status: Mental status NL Vitals VITALS Vital Signs Date Time Temp Pulse Resp B/P (MAP) Pulse Ox O2 Delivery O2 Flow Rate FiO2 11/05/19 07:36 97.5 68 18 118/70 (86) 97 Nasal Cannula 2.0 97.5 Labs Labs Laboratory Tests Test 11/04/19 04:08 White Blood Count 5.9 x10^3/uL (4.0-11.0) Red Blood Count 3.76 x10^6/uL (4.30-5.70) Hemoglobin 11.4 g/dL (13.0-17.5) Hematocrit 33.0 % (39.0-53.0) Mean Corpuscular Volume 88 fL (79-100) Mean Corpuscular Hemoglobin 30 pg (25-35) Mean Corpuscular Hemoglobin Concent 35 g/dL (31-37) Red Cell Distribution Width 14.0 % (11.5-14.5) Platelet Count 178 x10^3/uL (140-400) Neutrophils (%) (Auto) 63 % (31-73) Lymphocytes (%) (Auto) 17 % (24-48) Monocytes (%) (Auto) 11 % (0-9) Eosinophils (%) (Auto) 9 % (0-3) Basophils (%) (Auto) 1 % (0-3) Neutrophils # (Auto) 3.7 x10^3/uL (1.8-7.7) Lymphocytes # (Auto) 1.0 x10^3/uL (1.0-4.8) Monocytes # (Auto) 0.7 x10^3/uL (0.0-1.1) Eosinophils # (Auto) 0.5 x10^3/uL (0.0-0.7) Basophils # (Auto) 0.0 x10^3/uL (0.0-0.2) Sodium Level 139 mmol/L (136-145) Potassium Level 3.6 mmol/L (3.5-5.1) Chloride Level 104 mmol/L (98-107) Carbon Dioxide Level 28 mmol/L (21-32) Anion Gap 7 (6-14) Blood Urea Nitrogen 16 mg/dL (8-26) Creatinine 0.9 mg/dL (0.7-1.3) Estimated GFR (Cockcroft-Gault) 84.4 Glucose Level 103 mg/dL (70-99) Calcium Level 8.2 mg/dL (8.5-10.1) Assessment/Plan Assessment/Plan Decubitus ulcers local wound care appears to be improving Fever and malaise secondary to urinary tract infection improving labs with IV antibiotics No surgical plans at this time RYLIE SHAY MD November 05, 2019 08:23
[2019-11-05] MEDS: MULTIVITAMIN with MINERAL TABLET. PO SCH (08:25)
[2019-11-05] MEDS: LACTOBACILLUS RHAMNOSUS GG 1 CAPSULE. PO SCH ×2 (08:26→20:50)
[2019-11-05] MEDS: SPIRONOLACTONE 25 MG TABLET PO SCH (08:26)
[2019-11-05] MEDS: ASCORBIC ACID 500 MG TABLET PO SCH (08:26)
[2019-11-05] MEDS: METOPROLOL SUCC 24HR ER 50 MG TAB.ER.24H. PO SCH (08:27)
[2019-11-05] MEDS: GABAPENTIN 300 MG CAPSULE. PO SCH ×3 (08:27→20:50)
[2019-11-05] MEDS: SENNOSIDES 8.6 MG TABLET PO SCH ×2 (08:27→20:51)
[2019-11-05] MEDS: POLYETHYLENE GLYCOL 3350 17 GM PACKET. PO SCH (08:27)
[2019-11-05] MEDS: OXYBUTYNIN CHLORIDE 5 MG TABLET PO SCH ×2 (08:27→20:55)
[2019-11-05] MEDS: APIXABAN 5 MG TABLET. PO SCH ×2 (08:27→20:55)
[2019-11-05] MEDS: FUROSEMIDE 40 MG TABLET. PO SCH (08:27)
[2019-11-05] MEDS: hydroCHLOROthiazide 25 MG TABLET PO SCH (08:27)
[2019-11-05] MEDS: FLUTICASONE 50MCG/NASAL SPRAY 16GM BOTTLE. NS SCH (08:28)
--- NOTE | 2019-11-05 10:47 | PDOC ---
Infectious Disease Note Vital Signs: Vital Signs Vital Signs Date Time Temp Pulse Resp B/P (MAP) Pulse Ox O2 Delivery O2 Flow Rate FiO2 11/05/19 08:27 68 118/70 11/05/19 08:00 Room Air 11/05/19 07:36 97.5 18 97 2.0 97.5 Medications: Inpatient Meds: Current Medications Medications (Trade) Dose Ordered Sig/Didi Start Time Stop Time Status Last Admin Dose Admin Acetaminophen (Tylenol) 650 mg PRN Q4HRS PRN 11/02/19 16:15 11/03/19 20:14 650 MG Amlodipine Besylate (Norvasc) 10 mg QHS 11/03/19 21:00 11/04/19 20:49 10 MG Apixaban (Eliquis) 5 mg BID 11/03/19 09:00 11/05/19 08:27 5 MG Ascorbic Acid (Vitamin C) 500 mg DAILY 11/04/19 11:00 11/05/19 08:26 500 MG Atorvastatin Calcium (Lipitor) 40 mg QHS 11/03/19 21:00 11/04/19 20:49 40 MG Fluticasone Propionate (Flonase) 2 spray DAILY 11/03/19 09:00 11/05/19 08:28 2 SPRAY Furosemide (Lasix) 40 mg DAILY 11/03/19 09:00 11/05/19 08:27 40 MG Gabapentin (Neurontin) 300 mg TID 11/03/19 09:00 11/05/19 08:27 300 MG Hydrochlorothiazide (Hydrodiuril) 25 mg DAILY 11/03/19 09:00 11/05/19 08:27 25 MG Info (Anti-Coagulation Monitoring By Pharmacy) 1 each PRN DAILY PRN 11/02/19 22:00 11/04/19 14:37 1 EACH Lactobacillus Rhamnosus (Culturelle) 1 cap BID 11/03/19 09:00 11/05/19 08:26 1 CAP Losartan Potassium (Cozaar) 100 mg QHS 11/03/19 21:00 11/04/19 20:50 100 MG Metoprolol Succinate (Toprol Xl) 50 mg DAILY 11/03/19 09:00 11/05/19 08:27 50 MG Multivitamins (Thera M Plus) 1 tab DAILY 11/04/19 11:00 11/05/19 08:25 1 TAB Ondansetron HCl (Zofran) 4 mg PRN Q4HRS PRN 11/03/19 09:00 Oxybutynin Chloride (Ditropan) 5 mg BID 11/03/19 09:00 11/05/19 08:27 5 MG Oxycodone/ Acetaminophen (Percocet 5/325) 1 tab PRN Q4HRS PRN 11/02/19 21:30 Piperacillin Sod/ Tazobactam Sod 3.375 gm/Sodium Chloride 50 ml @ 100 mls/hr Q6HRS 11/03/19 00:00 11/05/19 06:02 100 MLS/HR Polyethylene Glycol (miraLAX PACKET) 17 gm DAILY 11/03/19 09:00 11/05/19 08:27 17 GM Sennosides (Senna) 8.6 mg BID 11/03/19 09:00 11/05/19 08:27 8.6 MG Sodium Chloride 1,000 ml @ 150 mls/hr Q6H40M 11/02/19 16:05 11/03/19 16:04 DC 11/03/19 15:29 150 MLS/HR Spironolactone (Aldactone) 25 mg DAILY 11/03/19 09:00 11/05/19 08:26 25 MG Objective: Assessment: Patient seen and examined ID consult dictated Plan: Plan of Care DC Zosyn Start ceftriaxone Continue local wound care Thank you [id number] NHAN OLSON MD November 05, 2019 10:47
[2019-11-05 11:57] VITALS: BP 104/64
--- NOTE | 2019-11-05 11:59 | NUR ---
SS following up with discharge planning. SS reviewed pt chart and discussed with RN. Pt is currently on room air. Pt has IV Rocephin. No surgical interventions recommended at this time. SS will continue to follow for discharge planning.
--- NOTE | 2019-11-05 12:07 | CONS ---
DATE OF CONSULTATION: 11/05/2019 REFERRING PHYSICIAN: Dr. Davila. REASON FOR CONSULTATION: Klebsiella variicola UTI, antibiotic management. HISTORY OF PRESENT ILLNESS: A 64-year-old male, very well known to our service from previous admission with paraplegia secondary to complications related to transverse myelitis, neurogenic bladder, self-catheterization, multiple pressure wounds, presented with fever, body ache, not feeling well. He has chronic coccyx wounds and heel wounds for which he has been following with the [facility]ound [facility] and at [facility]. He also had a recent angiogram done last week at [facility] with Dr. Velazquez. The patient does self-catheterization every 6 hours, but has been doing less due to weakness. He had some nausea and vomiting. He was found to have pyuria. Urine culture is growing Klebsiella variicola. He was started on Zosyn. Currently, his fever has resolved. He had mild lactic acidosis, which has resolved. Creatinine was normal. White count was 8.3. The patient had chest x-ray done, which showed no acute abnormality. Ultrasound of the kidneys showed unremarkable kidneys. Foot x-ray of the right foot showed mildly displaced fracture involving the base of the fifth metatarsal with interarticular extension, periarticular osteopenia, soft tissue swelling noted over the heel of the foot, plantar calcaneal enthesophyte, no osseous erosion of the calcaneus. There is displaced fracture involving the ventral aspect of the calcaneus. The patient said that the wound is healing well. He had an eschar which was removed in September and now it is healing. Before he had a deeper wound, he was treated last with antibiotics on 09/16/[address] Dodson at [facility] for the same. Today, the patient feels much better. Denies any fevers, chills, nausea, vomiting, diarrhea, abdominal pain. The patient had diverting colostomy done several months ago. PAST MEDICAL HISTORY: Hypertension, hyperlipidemia, peripheral neuropathy, cholelithiasis, osteoarthritis, transverse myelitis, generalized weakness, history of right heel osteo, history of a coccyx osteo treated. PAST SURGICAL HISTORY: Diverting colostomy, angiogram. FAMILY HISTORY: As per HPI. SOCIAL HISTORY: Denies alcohol, smoking, drugs. Lives with , . REVIEW OF SYSTEMS: Negative except for above in HPI. CURRENT MEDICATIONS: Zosyn. Other medications reviewed in medication list. PHYSICAL EXAMINATION: VITAL SIGNS: Temperature 97.5, T-max 101, pulse 68, respiratory rate 18, blood pressure 118/70, oxygen saturation 97% on room air. GENERAL: Alert, oriented x 3 male, pleasant, smiling, lying in bed comfortably, nontoxic appearing, in no acute distress. HEENT: Normocephalic, atraumatic, anicteric. Seborrheic keratosis present. NECK: Supple, no JVD. LUNGS: Clear bilaterally. No wheezing. HEART: S1, S2. No gallops or murmurs. ABDOMEN: Soft, nontender. Ostomy left lower quadrant with good stool output. EXTREMITIES: Trace edema, no cyanosis. DERMATOLOGIC: Gluteal pressure ulcers, small wound over the right heel. No purulent drainage. Warm and dry. No generalized rash except for above. NEUROLOGIC: Cranial nerves 2-12 grossly intact. Neurologic weakness in both lower extremities. Upper extremities, good range of motion. PSYCHIATRIC: Normal mood. LABORATORY DATA: WBC 5.9, hemoglobin 11.4, hematocrit 33, platelets 178. Sodium 139, potassium 3.6, chloride 104, bicarbonate 28, BUN 16, creatinine 0.9, glucose 103. Lactate was 2.1, repeat is 1.6. UA shows small leukocyte esterase, 5-10 wbc's. COVID-19 reported negative. IMPRESSION: 1. Klebsiella variicola urinary tract infection. 2. Neurogenic bladder status post self-catheterization. 3. Fever likely secondary to Klebsiella variicola urinary tract infection.Resolved 4. Nausea and vomiting, resolved. 5. Transverse myelitis with paraplegia. 6. History of Clostridium difficile colitis. 7. History of multiple decubitus wounds, stable. 8. Right heel osteo resolved with a small residual wound. 9. History of pulmonary embolism. 10. Abnormal liver function tests. 11. History of ALLERGIES TO CEPHALEXIN with rash, has tolerated ceftriaxone and cefepime . 12. COVID-19 negative. RECOMMENDATIONS: 1. Discontinue Zosyn. 2. Start ceftriaxone. 3. Continue local wound care. 4. Monitor labs and cultures. 5. Continue supportive care. 6. Discussed with nursing staff. Thank you, Dr. Davila, for consulting Infectious Disease to participate in this patient's care. If you have any questions, do not hesitate to contact me. NHAN OLSON MD DR: AUGUSTINA/sen JOB#: [id number] / [id number] XIMENA
[2019-11-05] MEDS: cefTRIAXone IV Push 2 GM VIAL. IVP SCH (12:17)
[2019-11-05 15:05] VITALS: BP 104/64
[2019-11-05 19:00] VITALS: BP 120/70
[2019-11-05] MEDS: amLODIPine BESYLATE 10 MG TABLET PO SCH (20:50)
[2019-11-05] MEDS: LOSARTAN POTASSIUM 50 MG TABLET. PO SCH (20:51)
[2019-11-05] MEDS: ATORVASTATIN CALCIUM 40 MG TABLET. PO SCH (20:51)
[2019-11-05 23:00] VITALS: BP 122/68
[2019-11-06 03:00] VITALS: BP 119/67
[2019-11-06 07:00] VITALS: BP 110/66
--- NOTE | 2019-11-06 08:21 | PDOC ---
PROGRESS NOTES Chief Complaint Chief Complaint A/P: UTI - started on empiric zosyn. Will f/u culture results Multiple nonhealing pressure wounds involving sacrococcygeal, left ischium and bilateral heels with necrotic tissue and malodor Right heel wound - wound care to see, debrided S/p diverting colostomy - 04/10/2019 Sepsis - likely 2/2 UTI, less likely to be coccygeal wound. 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 FEN - General diet PPX - eliquis FULL CODE Dispo - inpatient 2 midnight History of Present Illness History of Present Illness Mr Rust is a 64-year-old male with PMHx recent PE, transverse myelitis with paraplegia, neurogenic bladder, and multiple pressure wounds, who was admitted through ED c/o fever, body aches and just feeling terrible. He does have wounds on his coccyx which she is being treated for by wound care. He does self cath every 6 hours, but has been doing this less often due to weakness. He denies any upper respiratory symptoms such as cough or congestion and states he had a negative COVID test a few days prior to admission. He notes he had to do this at [facility] prior to his angiogram last week. Fever 101.7F in ED, WBC 7.2, lactate 2.1. [Was seen in wound clinic on 03/[address] [facility]. He also has recurrent Clostridium difficile infection (07/2018 and 11/2018) still on a taper of oral vancomycin and h/o e. coli UTI (self-caths up to 6 times daily). Transferred to [facility] and underwent diverting colostomy on 04/10/2019. He was discharged to [facility] and has been home since 08/23/2019]. 11/03: COVID 19 negative. Afebrile overnight. Urine culture reported as klebsiella variicola. Overall he notes his has been sterile with his ca theterizations during the day, but they have been struggling with this being at least his 4th UTI this year. He is asking for a Urology opinion. 11/04: Heel wound debrided and redressed. Afebrile. ID consulted. He is feeling improved. Culture sensitivities pending. No CP or SOB Afebrile overnight. Klebsiella pansensitive. Heel wound with gram-negative rods culture pending. He feels well no CP or SOB Vitals Vitals Vital Signs Date Time Temp Pulse Resp B/P (MAP) Pulse Ox O2 Delivery O2 Flow Rate FiO2 11/06/19 08:00 Room Air 2.0 11/06/19 03:00 97.9 71 18 119/67 (84) 96 97.9 Physical Exam General: Alert, Oriented X3, Cooperative, No acute distress Heart: Regular rate, No murmurs Lungs: Clear Abdomen: Normal bowel sounds, Soft, No tenderness Extremities: Other (Mild bilateral pedal edema) Skin: Other (Wounds are dressed currently getting local wound care) Assessment and Plan Assessmemt and Plan Problems Medical Problems: (1) Fever Status: Acute (2) Person under investigation for COVID-19 Status: Acute Comment Review of Relevant I have reviewed the following items franc (where applicable) has been applied. Labs Microbiology 11/04/19 Gram Stain - Final, Resulted 11/04/19 Aerobic Culture, Resulted Pending 11/03/19 Blood Culture - Preliminary, Resulted NO GROWTH AFTER 3 DAYS 11/02/19 Urine Culture - Final, Complete 11/02/19 Antimicrobic Susceptibility - Final, Complete Medications Current Medications Piperacillin Sod/ Tazobactam Sod 3.375 gm/Sodium Chloride 50 ml @ 100 mls/hr 1X ONCE IV Last administered on 11/02/19at 15:43; Start 11/02/19 at 15:30; Stop 11/02/19 at 15:59; Status DC Sodium Chloride 1,000 ml @ 1,000 mls/hr 1X ONCE IV Last administered on 11/02/19at 16:18; Start 11/02/19 at 16:15; Stop 11/02/19 at 17:14; Status DC Ondansetron HCl (Zofran) 4 mg PRN Q8HRS PRN IV NAUSEA/VOMITING Last administered on 11/02/19at 23:05; Start 11/02/19 at 16:15; Stop 11/03/19 at 08:54; Status DC Sodium Chloride 1,000 ml @ 150 mls/hr Q6H40M IV Last administered on 11/03/19at 15:29; Start 11/02/19 at 16:05; Stop 11/03/19 at 16:04; Status DC Acetaminophen (Tylenol) 650 mg PRN Q4HRS PRN PO FEVER > 100.3'F Last administered on 11/03/19at 20:14; Start 11/02/19 at 16:15 Oxycodone/ Acetaminophen (Percocet 5/325) 2 tab 1X ONCE PO Last administered on 11/02/19at 17:44; Start 11/02/19 at 17:15; Stop 11/02/19 at 17:16; Status DC Apixaban (Eliquis) 5 mg BID PO Last administered on 11/05/19 20:55; Start 11/03/19 at 09:00 Fluticasone Propionate (Flonase) 2 spray DAILY NS Last administered on 11/05/19 08:28; Start 11/03/19 at 09:00 Furosemide (Lasix) 40 mg DAILY PO Last administered on 11/05/19 08:27; Start 11/03/19 at 09:00 Gabapentin (Neurontin) 300 mg TID PO Last administered on 11/05/19 20:50; Start 11/03/19 at 09:00 Hydrochlorothiazide (Hydrodiuril) 25 mg DAILY PO Last administered on 11/05/19 08:27; Start 11/03/19 at 09:00 Oxybutynin Chloride (Ditropan) 5 mg BID PO Last administered on 11/05/19 20:55; Start 11/03/19 at 09:00 Oxycodone/ Acetaminophen (Percocet 5/325) 1 tab PRN Q4HRS PRN PO MODERATE- SEVERE PAIN; Start 11/02/19 at 21:30 Polyethylene Glycol (miraLAX PACKET) 17 gm DAILY PO Last administered on 11/05/19 08:27; Start 11/03/19 at 09:00 Sennosides (Senna) 8.6 mg BID PO Last administered on 11/05/19at 20:51; Start 11/03/19 at 09:00 Spironolactone (Aldactone) 25 mg DAILY PO Last administered on 11/05/19 08:26; Start 11/03/19 at 09:00 Amlodipine Besylate (Norvasc) 10 mg QHS PO Last administered on 11/05/19 20:50; Start 11/03/19 at 21:00 Lactobacillus Rhamnosus (Culturelle) 1 cap BID PO Last administered on 11/05/19 20:50; Start 11/03/19 at 09:00 Metoprolol Succinate (Toprol Xl) 50 mg DAILY PO Last administered on 11/05/19 08:27; Start 11/03/19 at 09:00 Atorvastatin Calcium (Lipitor) 40 mg QHS PO Last administered on 11/05/19 20:51; Start 11/03/19 at 21:00 Info (Anti-Coagulation Monitoring By Pharmacy) 1 each PRN DAILY PRN MC SEE COMMENTS Last administered on 11/04/19 14:37; Start 11/02/19 at 22:00 Losartan Potassium (Cozaar) 100 mg QHS PO Last administered on 11/05/19 20:51; Start 11/03/19 at 21:00 Piperacillin Sod/ Tazobactam Sod 3.375 gm/Sodium Chloride 50 ml @ 100 mls/hr Q6HRS IV Last administered on 11/05/19 06:02; Start 11/03/19 at 00:00; Stop 11/05/19 at 10:46; Status DC Ondansetron HCl (Zofran) 4 mg PRN Q4HRS PRN IV NAUSEA/VOMITING; Start 11/03/19 at 09:00 Multivitamins (Thera M Plus) 1 tab DAILY PO Last administered on 11/05/19 08:25; Start 11/04/19 at 11:00 Ascorbic Acid (Vitamin C) 500 mg DAILY PO Last administered on 11/05/19 08:26; Start 11/04/19 at 11:00 Ceftriaxone Sodium (Rocephin) 2 gm Q24H IVP Last administered on 11/05/19 12:17; Start 11/05/19 at 11:00 Active Scripts Active Percocet 5-325 Mg Tablet (Oxycodone/Acetaminophen) 1 Each Tablet 1 Tab PO PRN Q4HRS PRN Reported Miralax (Polyethylene Glycol 3350) 17 Gm Powd.pack 1 Pkt PO DAILY Senokot (Sennosides) 8.6 Mg Tablet 8.6 Mg PO BID Hydrochlorothiazide Tablet (Hydrochlorothiazide) 25 Mg Tablet 25 Mg PO DAILY Crestor (Rosuvastatin Calcium) 5 Mg Tablet 10 Mg PO HS Amlodipine-Valsartan 10-320 mg (Amlodipine/Valsartan) 1 Each Tablet 1 Each PO HS Oxybutynin Chloride 5 Mg Tablet 5 Mg PO BID Spironolactone 25 Mg Tablet 25 Mg PO DAILY Furosemide 40 Mg Tablet 40 Mg PO DAILY Eliquis (Apixaban) 5 Mg Tablet 5 Mg PO BID Fluticasone Propionate Nasal [place] (Fluticasone Propionate) 16 Gm [place].susp 2 [place] NS DAILY Superior Digestive Enzyme (Digestive Enzymes Combo No.7) 1 Each Capsule 1 Each PO BID Gabapentin (Gabapentin) 300 Mg Capsule 300 Mg PO TID Toprol Xl (Metoprolol Succinate) 50 Mg Tab.er.24h 1 Tab PO DAILY Vitals/I & O Vital Sign - Last 24 Hours 11/05/19 11/05/19 11/05/19 11/05/19 08:27 11:57 15:05 19:00 Temp 98.4 97.6 98.1 98.4 97.6 98.1 Pulse 68 75 75 75 Resp 18 18 18 B/P (MAP) 118/70 104/64 (77) 104/64 (77) 120/70 (87) Pulse Ox 97 95 93 O2 Delivery Room Air Room Air Room Air 11/05/19 11/05/19 11/05/19 11/05/19 20:00 20:50 20:51 23:00 Temp 98.0 98.0 Pulse 75 75 79 Resp 18 B/P (MAP) 120/70 120/70 122/68 (86) Pulse Ox 94 O2 Delivery Room Air Room Air 11/06/19 11/06/19 03:00 08:00 Temp 97.9 97.9 Pulse 71 Resp 18 B/P (MAP) 119/67 (84) Pulse Ox 96 O2 Delivery Room Air Room Air O2 Flow Rate 2.0 Intake and Output 11/05/19 11/05/19 11/06/19 15:00 23:00 07:00 Intake Total 300 ml 500 ml 600 ml Output Total 250 ml 1550 ml Balance 50 ml -1050 ml 600 ml MANDY COOMBS MD November 06, 2019 08:21
[2019-11-06] MEDS: FLUTICASONE 50MCG/NASAL SPRAY 16GM BOTTLE. NS SCH (08:51)
[2019-11-06] MEDS: POLYETHYLENE GLYCOL 3350 17 GM PACKET. PO SCH (08:51)
[2019-11-06] MEDS: MULTIVITAMIN with MINERAL TABLET. PO SCH (08:52)
[2019-11-06] MEDS: SENNOSIDES 8.6 MG TABLET PO SCH ×2 (08:52→20:41)
[2019-11-06] MEDS: ASCORBIC ACID 500 MG TABLET PO SCH (08:52)
[2019-11-06] MEDS: APIXABAN 5 MG TABLET. PO SCH ×2 (08:52→20:41)
[2019-11-06] MEDS: LACTOBACILLUS RHAMNOSUS GG 1 CAPSULE. PO SCH ×2 (08:52→20:41)
[2019-11-06] MEDS: FUROSEMIDE 40 MG TABLET. PO SCH (08:52)
[2019-11-06] MEDS: SPIRONOLACTONE 25 MG TABLET PO SCH (08:53)
[2019-11-06] MEDS: OXYBUTYNIN CHLORIDE 5 MG TABLET PO SCH ×2 (08:53→20:41)
[2019-11-06] MEDS: hydroCHLOROthiazide 25 MG TABLET PO SCH (08:53)
[2019-11-06] MEDS: METOPROLOL SUCC 24HR ER 50 MG TAB.ER.24H. PO SCH (08:53)
[2019-11-06] MEDS: GABAPENTIN 300 MG CAPSULE. PO SCH ×3 (08:54→20:41)
--- NOTE | 2019-11-06 09:49 | PDOC ---
Infectious Disease Note Subjective: Subjective Patient without complaints Denies fever, nausea, vomiting, shortness of breath, diarrhea, abdominal pain, rash Otherwise as above Vital Signs: Vital Signs Vital Signs Date Time Temp Pulse Resp B/P (MAP) Pulse Ox O2 Delivery O2 Flow Rate FiO2 11/06/19 08:53 75 110/66 11/06/19 08:00 Room Air 2.0 11/06/19 07:00 98.3 16 97 98.3 Physical Exam: PHYSICAL EXAM GENERAL: Alert, oriented x 3 male, pleasant, smiling, lying in bed comfortably, nontoxic appearing, in no acute distress. HEENT: Normocephalic, atraumatic, anicteric. Seborrheic keratosis present. NECK: Supple, no JVD. LUNGS: Clear bilaterally. No wheezing. HEART: S1, S2. No gallops or murmurs. ABDOMEN: Soft, nontender. Ostomy left lower quadrant with good stool output. EXTREMITIES: Trace edema, no cyanosis. DERMATOLOGIC: Gluteal pressure ulcers, small wound over the right heel. No purulent drainage. No exposed bone, but improved than before, dry.. No generalized rash except for above. NEUROLOGIC: Cranial nerves 2-12 grossly intact. Neurologic weakness in both lower extremities. Upper extremities, good range of motion. PSYCHIATRIC: Normal mood. Medications: Inpatient Meds: Current Medications Medications (Trade) Dose Ordered Sig/Didi Start Time Stop Time Status Last Admin Dose Admin Acetaminophen (Tylenol) 650 mg PRN Q4HRS PRN 11/02/19 16:15 11/03/19 20:14 650 MG Amlodipine Besylate (Norvasc) 10 mg QHS 11/03/19 21:00 11/05/19 20:50 10 MG Apixaban (Eliquis) 5 mg BID 11/03/19 09:00 11/06/19 08:52 5 MG Ascorbic Acid (Vitamin C) 500 mg DAILY 11/04/19 11:00 11/06/19 08:52 500 MG Atorvastatin Calcium (Lipitor) 40 mg QHS 11/03/19 21:00 11/05/19 20:51 40 MG Ceftriaxone Sodium (Rocephin) 2 gm Q24H 11/05/19 11:00 11/05/19 12:17 2 GM Fluticasone Propionate (Flonase) 2 spray DAILY 11/03/19 09:00 11/06/19 08:51 2 SPRAY Furosemide (Lasix) 40 mg DAILY 11/03/19 09:00 11/06/19 08:52 40 MG Gabapentin (Neurontin) 300 mg TID 11/03/19 09:00 11/06/19 08:54 300 MG Hydrochlorothiazide (Hydrodiuril) 25 mg DAILY 11/03/19 09:00 11/06/19 08:53 25 MG Info (Anti-Coagulation Monitoring By Pharmacy) 1 each PRN DAILY PRN 11/02/19 22:00 11/04/19 14:37 1 EACH Lactobacillus Rhamnosus (Culturelle) 1 cap BID 11/03/19 09:00 11/06/19 08:52 1 CAP Losartan Potassium (Cozaar) 100 mg QHS 11/03/19 21:00 11/05/19 20:51 100 MG Metoprolol Succinate (Toprol Xl) 50 mg DAILY 11/03/19 09:00 11/06/19 08:53 50 MG Multivitamins (Thera M Plus) 1 tab DAILY 11/04/19 11:00 11/06/19 08:52 1 TAB Ondansetron HCl (Zofran) 4 mg PRN Q4HRS PRN 11/03/19 09:00 Oxybutynin Chloride (Ditropan) 5 mg BID 11/03/19 09:00 11/06/19 08:53 5 MG Oxycodone/ Acetaminophen (Percocet 5/325) 1 tab PRN Q4HRS PRN 11/02/19 21:30 Piperacillin Sod/ Tazobactam Sod 3.375 gm/Sodium Chloride 50 ml @ 100 mls/hr Q6HRS 11/03/19 00:00 11/05/19 10:46 DC 11/05/19 06:02 100 MLS/HR Polyethylene Glycol (miraLAX PACKET) 17 gm DAILY 11/03/19 09:00 11/06/19 08:51 17 GM Sennosides (Senna) 8.6 mg BID 11/03/19 09:00 11/06/19 08:52 8.6 MG Sodium Chloride 1,000 ml @ 150 mls/hr Q6H40M 11/02/19 16:05 11/03/19 16:04 DC 11/03/19 15:29 150 MLS/HR Spironolactone (Aldactone) 25 mg DAILY 11/03/19 09:00 11/06/19 08:53 25 MG Objective: Assessment: 1. Klebsiella variicola urinary tract infection. 2. Neurogenic bladder status post self-catheterization. 3. Fever likely secondary to Klebsiella variicola urinary tract infection.Resolved 4. Nausea and vomiting, resolved. 5. Transverse myelitis with paraplegia. 6. History of Clostridium difficile colitis. 7. History of multiple decubitus wounds, stable. 8. Right heel osteo resolved with a small residual wound. Swab cultures positive for GNR and GPC 9. History of pulmonary embolism. 10. Abnormal liver function tests. 11. History of ALLERGIES TO CEPHALEXIN with rash, has tolerated ceftriaxone and cefepime . 12. COVID-19 negative. Plan: Plan of Care Continue ceftriaxone Add empiric doxy Follow-up foot culture, GPC and GNR Continue local wound care NHAN OLSON MD November 06, 2019 09:49
[2019-11-06 11:38] VITALS: BP 133/83
[2019-11-06] MEDS: cefTRIAXone IV Push 2 GM VIAL. IVP SCH (12:29)
[2019-11-06] MEDS: DOXYCYCLINE HYCLATE 100 MG TABLET PO SCH ×2 (12:29→20:42)
--- NOTE | 2019-11-06 13:50 | NUR ---
Wound Care Wound Type/Assessment: Left Ischium healing Stage III pressure ulcer, very small and superficial, much improved since last visit to the wound clinic in March 2019. Wound is almost healed, redressed with contact layer and foam dressing. Coccyx and right ischial wounds are healed. Findings discussed with pt's RN, Maria L. Treatment Recommendations/Plan: Turn Q2 hours to L & R sides, float heels, further imaging of R heel. Education provided: to pt re: wounds, wound vac and POC. Offloading surface/device: P500 bed, wedge, pillows Recommended Referrals/Tests: R heel CT or MRI, per Dr. Napoles's recs, and possible surgical consult depending on findings Discharge Recommendations for dressings: contact layer and foam for ischium, R heel Vac Veraflo while hospitalized, then home vac for d/c home. Will submit [facility] home vac application at this time. Addendum: 11/06/19 at 1720 by Nya Eden RN Dr. Napoles assessed, provided bedside debridement, see his separate procedure note, wound measured and photographed, also ordered MRI of R heel, with and w/o contrast. 1 piece of bautista/black foam placed into R heel wound, foam tracked over drape, up to right lower leg. Vac showing strong seal at -125 mmHg, with Veraflo settings of 10 mL of NS instilling every 4 hours for 5 minute dwell time. Pt tolerated procedure well.
--- NOTE | 2019-11-06 13:52 | NUR ---
SS following up with discharge planning. SS reviewed pt chart and discussed with pt RN. Pt getting debridment from wound care today. Pt is currently on PO Doxycycline and IV Rocephin. Pt is currently on room air. SS will continue to follow for discharge planning.
--- NOTE | 2019-11-06 14:15 | PDOC2 ---
CONSULT Date of Consult Date of Consult DATE: 11/06/19 TIME: 13:56 Reason for Consult Reason for Consult: Right foot pressure ulcer Referring Physician Referring Physician: Dr. Davila Identification/Chief Complaint Chief Complaint This is a 64-year-old patient recently admitted to the hospital for fever and receiving subsequent diagnosis of urinary tract infection. He presented as well with right heel wound and wound care has been consulted to evaluate this site. The patient describes an overlying eschar which was recently removed and revealed malodorous pustular drainage. Source Source: Chart review, Patient History of Present Illness Reason for Visit: As above. Patient currently on IV antibiotic therapy. Drainage from the right heel is reported to be significantly improved as well as periwound erythema and we note no odor today. Patient was previously involved in the wound care clinic in March of last year. He was followed for relatively minor wounds of the ischium and heels. At this time the patient is alert and cooperative and comf ortable throughout the bedside interview. His recent past medical history is dominated by transverse myelitis with development of paraplegia. Past Medical History Cardiovascular: HTN, Hyperlipidemia, Other Pulmonary: No pertinent hx CENTRAL NERVOUS SYSTEM: Periperal neuropathy GI: No pertinent hx Heme/Onc: No pertinent hx Hepatobiliary: No pertinent hx, Cholelithiasis Psych: No pertinent hx Musculoskeletal: Osteoarthritis, Muscle atrophy, Weakness, Other Rheumatologic: No pertinent hx Infectious disease: No pertinent hx Renal/: No pertinent hx Endocrine: No pertinent hx Dermatology: Other (Treatment of multiple relatively minor pressure ulcers in the past) Past Surgical History Past Surgical History: Other (Diverting colostomy) Family History Family History: Heart Disease, Other Social History ALCOHOL: none Drugs: None Lives: with Family Current Problem List Problem List Problems Medical Problems: (1) Fever Status: Acute (2) Person under investigation for COVID-19 Status: Acute Current Medications Current Medications Current Medications Piperacillin Sod/ Tazobactam Sod 3.375 gm/Sodium Chloride 50 ml @ 100 mls/hr 1X ONCE IV Last administered on 11/02/19at 15:43; Start 11/02/19 at 15:30; Stop 11/02/19 at 15:59; Status DC Sodium Chloride 1,000 ml @ 1,000 mls/hr 1X ONCE IV Last administered on 11/02/19at 16:18; Start 11/02/19 at 16:15; Stop 11/02/19 at 17:14; Status DC Ondansetron HCl (Zofran) 4 mg PRN Q8HRS PRN IV NAUSEA/VOMITING Last administered on 11/02/19at 23:05; Start 11/02/19 at 16:15; Stop 11/03/19 at 08:54; Status DC Sodium Chloride 1,000 ml @ 150 mls/hr Q6H40M IV Last administered on 11/03/19at 15:29; Start 11/02/19 at 16:05; Stop 11/03/19 at 16:04; Status DC Acetaminophen (Tylenol) 650 mg PRN Q4HRS PRN PO FEVER > 100.3'F Last administe red on 11/03/19at 20:14; Start 11/02/19 at 16:15 Oxycodone/ Acetaminophen (Percocet 5/325) 2 tab 1X ONCE PO Last administered o n 11/02/19at 17:44; Start 11/02/19 at 17:15; Stop 11/02/19 at 17:16; Status DC Apixaban (Eliquis) 5 mg BID PO Last administered on 11/06/19 08:52; Start 11/03/19 at 09:00 Fluticasone Propionate (Flonase) 2 spray DAILY NS Last administered on 11/06/19 08:51; Start 11/03/19 at 09:00 Furosemide (Lasix) 40 mg DAILY PO Last administered on 11/06/19 08:52; Start 11/03/19 at 09:00 Gabapentin (Neurontin) 300 mg TID PO Last administered on 11/06/19 08:54; Start 11/03/19 at 09:00 Hydrochlorothiazide (Hydrodiuril) 25 mg DAILY PO Last administered on 11/06/19 08:53; Start 11/03/19 at 09:00 Oxybutynin Chloride (Ditropan) 5 mg BID PO Last administered on 11/06/19 08:53; Start 11/03/19 at 09:00 Oxycodone/ Acetaminophen (Percocet 5/325) 1 tab PRN Q4HRS PRN PO MODERATE- SEVERE PAIN; Start 11/02/19 at 21:30 Polyethylene Glycol (miraLAX PACKET) 17 gm DAILY PO Last administered on 11/06/19 08:51; Start 11/03/19 at 09:00 Sennosides (Senna) 8.6 mg BID PO Last administered on 11/06/19 08:52; Start 11/03/19 at 09:00 Spironolactone (Aldactone) 25 mg DAILY PO Last administered on 11/06/19 08:53; Start 11/03/19 at 09:00 Amlodipine Besylate (Norvasc) 10 mg QHS PO Last administered on 11/05/19 20:50; Start 11/03/19 at 21:00 Lactobacillus Rhamnosus (Culturelle) 1 cap BID PO Last administered on 11/06/19 08:52; Start 11/03/19 at 09:00 Metoprolol Succinate (Toprol Xl) 50 mg DAILY PO Last administered on 11/06/19 08:53; Start 11/03/19 at 09:00 Atorvastatin Calcium (Lipitor) 40 mg QHS PO Last administered on 11/05/19 2 0:51; Start 11/03/19 at 21:00 Info (Anti-Coagulation Monitoring By Pharmacy) 1 each PRN DAILY PRN MC SEE COMMENTS Last administered on 11/04/19 14:37; Start 11/02/19 at 22:00 Losartan Potassium (Cozaar) 100 mg QHS PO Last administered on 11/05/19 20:51; Start 11/03/19 at 21:00 Piperacillin Sod/ Tazobactam Sod 3.375 gm/Sodium Chloride 50 ml @ 100 mls/hr Q6HRS IV Last administered on 11/05/19 06:02; Start 11/03/19 at 00:00; Stop 11/05/19 at 10:46; Status DC Ondansetron HCl (Zofran) 4 mg PRN Q4HRS PRN IV NAUSEA/VOMITING; Start 11/03/19 at 09:00 Multivitamins (Thera M Plus) 1 tab DAILY PO Last administered on 11/06/19 08:52; Start 11/04/19 at 11:00 Ascorbic Acid (Vitamin C) 500 mg DAILY PO Last administered on 11/06/19 08:52; Start 11/04/19 at 11:00 Ceftriaxone Sodium (Rocephin) 2 gm Q24H IVP Last administered on 5/28/20at 12:29; Start 11/05/19 at 11:00 Doxycycline Hyclate (Vibra-Tab) 100 mg BID PO Last administered on 11/06/19at 12:29; Start 11/06/19 at 11:00 Active Scripts Active Percocet 5-325 Mg Tablet (Oxycodone/Acetaminophen) 1 Each Tablet 1 Tab PO PRN Q4HRS PRN Reported Miralax (Polyethylene Glycol 3350) 17 Gm Powd.pack 1 Pkt PO DAILY Senokot (Sennosides) 8.6 Mg Tablet 8.6 Mg PO BID Hydrochlorothiazide Tablet (Hydrochlorothiazide) 25 Mg Tablet 25 Mg PO DAILY Crestor (Rosuvastatin Calcium) 5 Mg Tablet 10 Mg PO HS Amlodipine-Valsartan 10-320 mg (Amlodipine/Valsartan) 1 Each Tablet 1 Each PO HS Oxybutynin Chloride 5 Mg Tablet 5 Mg PO BID Spironolactone 25 Mg Tablet 25 Mg PO DAILY Furosemide 40 Mg Tablet 40 Mg PO DAILY Eliquis (Apixaban) 5 Mg Tablet 5 Mg PO BID Fluticasone Propionate Nasal [place] (Fluticasone Propionate) 16 Gm Pear[place].susp 2 [place] NS DAILY Superior Digestive Enzyme (Digestive Enzymes Combo No.7) 1 Each Capsule 1 Each PO BID Gabapentin (Gabapentin) 300 Mg Capsule 300 Mg PO TID Toprol Xl (Metoprolol Succinate) 50 Mg Tab.er.24h 1 Tab PO DAILY Allergies Allergies: Coded Allergies: cephalexin (Verified Allergy, Intermediate, rash, 04/09/19) I S O L A T I O N *CONTACT* (Verified Allergy, Unknown, ECOLI, VRE, PSEUDOMONAS SACRAL WOUND; CHRONIC C-DIFF, 04/09/19) ROS Review of System Negative except as reported below General: YES: Other (Recent fatigue and fever was noted on admission) Eyes: Yes Uses glasses Hematological and Lymphatic: YES: Other (Patient has history of PE and is on Eliquis) Musculoskeletal: Yes Other (Paraplegic with lower extremity atrophy) Neurological: Yes Bowel/Bladder ControlChng, Yes Gait Disturbance (Nonambulatory), Yes Numbness/Tingling, Yes Other (Paraplegic) Skin: Yes Other (Right heel with pressure ulcer demonstrating recent pustular drainage and infectious process.) Physical Exam General: Alert, Oriented X3, Cooperative, No acute distress HEENT: Atraumatic, PERRLA, EOMI Lungs: Clear to auscultation, Normal air movement Heart: Regular rate Abdomen: Soft Extremities: No clubbing, No cyanosis, Other (Previous LORRAINE several months ago was 1.1) Skin: Other (Right heel demonstrates stage IV pressure ulcer down to periosteum following debridement. Recent demonstration of pus and now loss of heel fat pad at the site of infection. Ulcer size is 0.9 cm x 1 cm x 1.8 cm with undermining as large as 1.1 cm particularly at 10:00 on the ulcer.) Neuro: Other (Paraplegic) Psych/Mental Status: Mental status NL, Mood NL MUSCULOSKELETAL: Not examined Vitals VITALS Vital Signs Date Time Temp Pulse Resp B/P (MAP) Pulse Ox O2 Delivery O2 Flow Rate FiO2 11/06/19 11:38 97.8 76 18 133/83 (100) 95 Room Air 97.8 11/06/19 08:00 2.0 Labs Labs Renal function appears good. White count ovation not noted. Images Images Plain film x-ray of the heel unremarkable for osteomyelitis Assessment/Plan Assessment/Plan Right heel stage IV pressure ulcer subjacent to calcaneous. Relatively large defect and fat pad noted following debridement with Continued concern for osteomyelitis Recommendation is further imaging to rule out osteomyelitis. Wound VAC with variflow for continued debridement and treatment of local in fection. We will discharge with dressing recommendations or continued use of wound VAC to resolve soft tissue defect. Thank you for allowing us to participate in this patient's care. He is well- known to the wound care center. Procedure note: Following informed percent including risk of bleeding, tissue loss and infection, patient underwent a subcutaneous debridement of viable and nonviable tissue at the right heel ulcer site. This was well-tolerated by the patient. Minimal blood loss was noted. Following debridement ulcer extended just adjacent to bone at the calcaneus. Relatively large tunnel was noted at 10:00. Forceps scissors and scalpel were utilized. Because of paraplegia no anesthesia was needed. SONNY WOODALL DO November 06, 2019 14:15
[2019-11-06 15:30] VITALS: BP 129/83
--- NOTE | 2019-11-06 18:10 | NUR ---
PT TRANSFERRED TO ROOM 404 PER BED. REPORT CALLED TO PAKO QUISPE.
--- NOTE | 2019-11-06 18:16 | NUR ---
Pt. here from 6S, rates pain at 0/10.
[2019-11-06 19:13] VITALS: BP 130/74
[2019-11-06] MEDS: ATORVASTATIN CALCIUM 40 MG TABLET. PO SCH (20:41)
[2019-11-06] MEDS: amLODIPine BESYLATE 10 MG TABLET PO SCH (20:41)
[2019-11-06] MEDS: LOSARTAN POTASSIUM 50 MG TABLET. PO SCH (20:41)
[2019-11-06 22:22] VITALS: BP 147/67
[2019-11-07 03:36] VITALS: BP 119/74
[2019-11-07 06:54] VITALS: BP 113/65
--- NOTE | 2019-11-07 08:01 | PDOC ---
PROGRESS NOTES Chief Complaint Chief Complaint A/P: UTI - started on empiric zosyn. Will f/u culture results Multiple nonhealing pressure wounds involving sacrococcygeal, left ischium and bilateral heels with necrotic tissue and malodor Right heel wound - wound care to see, debrided S/p diverting colostomy - 04/10/2019 Sepsis - likely 2/2 UTI, less likely to be coccygeal wound. COVID 19 testing negative History of recurrent Clostridium difficile diarrhea, Neurogenic bladder requiring self-catheterizations Transverse myelitis with subsequent paraplegia - on high dose steroids on 02/12 - 12/27 MRI L/S C/W Progression in both signal intensity and superior extent of diffusely History of pulmonary embolism - on eliquis therapy Severe protein calorie malnutrition - apiarist to see MORBID OBESITY Anemia - likely of chronic inflammation Hypokalemia Lactic acidosis Transaminitis - will monitor, likely sepsis related. FEN - General diet PPX - eliquis FULL CODE Dispo - inpatient 2 midnight History of Present Illness History of Present Illness Mr Rust is a 64-year-old male with PMHx recent PE, transverse myelitis with paraplegia, neurogenic bladder, and multiple pressure wounds, who was admitted through ED c/o fever, body aches and just feeling terrible. He does have wounds on his coccyx which she is being treated for by wound care. He does self cath every 6 hours, but has been doing this less often due to weakness. He denies any upper respiratory symptoms such as cough or congestion and states he had a negative COVID test a few days prior to admission. He notes he had to do this at [facility] prior to his angiogram last week. Fever 101.7F in ED, WBC 7.2, lactate 2.1. [Was seen in wound clinic on 03/13 and directly admitted to [facility]. He also has recurrent Clostridium difficile infection (07/2018 and 11/2018) still on a taper of oral vancomycin and h/o e. coli UTI (self-caths up to 6 times daily). Transferred to [facility] and underwent diverting colostomy on 04/10/2019. He was discharged to [facility] and has been home since 08/23/2019]. 11/03: COVID 19 negative. Afebrile overnight. Urine culture reported as klebsiella variicola. Overall he notes his has been sterile with his ca theterizations during the day, but they have been struggling with this being at least his 4th UTI this year. He is asking for a Urology opinion. 11/04: Heel wound debrided and redressed. Afebrile. ID consulted. He is feeling improved. Culture sensitivities pending. No CP or SOB 11/05: Afebrile overnight. Klebsiella pansensitive. Heel wound with gram- negative rods culture pending. He feels well no CP or SOB Overnight afebrile. Wound care debrided right foot and noted palpable bone in wound. Discussed with ID this is possible source will need an MRI to rule out osteomyelitis, will check vascular studies. No CP or S OB. Patient without complaints. Now has wound VAC in place Vitals Vitals Vital Signs Date Time Temp Pulse Resp B/P (MAP) Pulse Ox O2 Delivery O2 Flow Rate FiO2 11/07/19 06:54 97.8 72 18 113/65 (81) 96 Room Air 97.8 11/06/19 08:00 2.0 Physical Exam Physical Exam GENERAL: Alert, oriented x 3 male, pleasant, smiling, lying in bed comfortably, nontoxic appearing, in no acute distress. HEENT: Normocephalic, atraumatic, anicteric. Seborrheic keratosis present. NECK: Supple, no JVD. LUNGS: Clear bilaterally. No wheezing. HEART: S1, S2. No gallops or murmurs. ABDOMEN: Soft, nontender. Ostomy left lower quadrant with good stool output. EXTREMITIES: Trace edema, no cyanosis. DERMATOLOGIC: Gluteal pressure ulcers, small wound over the right heel. No purulent drainage. No exposed bone, but improved than before, dry.. No generalized rash except for above. NEUROLOGIC: Cranial nerves 2-12 grossly intact. Neurologic weakness in both lower extremities. Upper extremities, good range of motion. PSYCHIATRIC: Normal mood. General: Alert, Oriented X3, Cooperative, No acute distress Heart: Regular rate Lungs: Clear Abdomen: Soft Extremities: No clubbing, No cyanosis, Other (Previous LORRAINE several months ago was 1.1) Skin: Other (Right heel demonstrates stage IV pressure ulcer down to periosteum following debridement. Recent demonstration of pus and now loss of heel fat pad at the site of infection. Ulcer size is 0.9 cm x 1 cm x 1.8 cm with undermining as large as 1.1 cm particularly at 10:00 on the ulcer.) Assessment and Plan Assessmemt and Plan Problems Medical Problems: (1) Fever Status: Acute (2) Person under investigation for COVID-19 Status: Acute Comment Review of Relevant I have reviewed the following items franc (where applicable) has been applied. Labs Microbiology 11/04/19 Gram Stain - Final, Resulted 11/04/19 Aerobic Culture, Resulted Pending 11/03/19 Blood Culture - Preliminary, Resulted NO GROWTH AFTER 4 DAYS 11/02/19 Urine Culture - Final, Complete 11/02/19 Antimicrobic Susceptibility - Final, Complete Medications Current Medications Piperacillin Sod/ Tazobactam Sod 3.375 gm/Sodium Chloride 50 ml @ 100 mls/hr 1X ONCE IV Last administered on 11/02/19at 15:43; Start 11/02/19 at 15:30; Stop 11/02/19 at 15:59; Status DC Sodium Chloride 1,000 ml @ 1,000 mls/hr 1X ONCE IV Last administered on 11/02/19at 16:18; Start 11/02/19 at 16:15; Stop 11/02/19 at 17:14; Status DC Ondansetron HCl (Zofran) 4 mg PRN Q8HRS PRN IV NAUSEA/VOMITING Last administered on 11/02/19at 23:05; Start 11/02/19 at 16:15; Stop 11/03/19 at 08:54; Status DC Sodium Chloride 1,000 ml @ 150 mls/hr Q6H40M IV Last administered on 11/03/19at 15:29; Start 11/02/19 at 16:05; Stop 11/03/19 at 16:04; Status DC Acetaminophen (Tylenol) 650 mg PRN Q4HRS PRN PO FEVER > 100.3'F Last administered on 11/03/19at 20:14; Start 11/02/19 at 16:15 Oxycodone/ Acetaminophen (Percocet 5/325) 2 tab 1X ONCE PO Last administered on 11/02/19at 17:44; Start 11/02/19 at 17:15; Stop 11/02/19 at 17:16; Status DC Apixaban (Eliquis) 5 mg BID PO Last administered on 11/06/19at 20:41; Start 11/03/19 at 09:00 Fluticasone Propionate (Flonase) 2 spray DAILY NS Last administered on 11/06/19 08:51; Start 11/03/19 at 09:00 Furosemide (Lasix) 40 mg DAILY PO Last administered on 11/06/19 08:52; Start 11/03/19 at 09:00 Gabapentin (Neurontin) 300 mg TID PO Last administered on 11/06/19 20:41; Start 11/03/19 at 09:00 Hydrochlorothiazide (Hydrodiuril) 25 mg DAILY PO Last administered on 11/06/19 08:53; Start 11/03/19 at 09:00 Oxybutynin Chloride (Ditropan) 5 mg BID PO Last administered on 11/06/19 20:41; Start 11/03/19 at 09:00 Oxycodone/ Acetaminophen (Percocet 5/325) 1 tab PRN Q4HRS PRN PO MODERATE- SEVERE PAIN; Start 11/02/19 at 21:30 Polyethylene Glycol (miraLAX PACKET) 17 gm DAILY PO Last administered on 11/06/19 08:51; Start 11/03/19 at 09:00 Sennosides (Senna) 8.6 mg BID PO Last administered on 11/06/19 20:41; Start 11/03/19 at 09:00 Spironolactone (Aldactone) 25 mg DAILY PO Last administered on 11/06/19 08:53; Start 11/03/19 at 09:00 Amlodipine Besylate (Norvasc) 10 mg QHS PO Last administered on 11/06/19 20:41; Start 11/03/19 at 21:00 Lactobacillus Rhamnosus (Culturelle) 1 cap BID PO Last administered on 11/06/19 20:41; Start 11/03/19 at 09:00 Metoprolol Succinate (Toprol Xl) 50 mg DAILY PO Last administered on 11/06/19 08:53; Start 11/03/19 at 09:00 Atorvastatin Calcium (Lipitor) 40 mg QHS PO Last administered on 11/06/19 20:41; Start 11/03/19 at 21:00 Info (Anti-Coagulation Monitoring By Pharmacy) 1 each PRN DAILY PRN MC SEE COMMENTS Last administered on 11/04/19 14:37; Start 11/02/19 at 22:00 Losartan Potassium (Cozaar) 100 mg QHS PO Last administered on 11/06/19 20:41; Start 11/03/19 at 21:00 Piperacillin Sod/ Tazobactam Sod 3.375 gm/Sodium Chloride 50 ml @ 100 mls/hr Q6HRS IV Last administered on 11/05/19 06:02; Start 11/03/19 at 00:00; Stop 11/05/19 at 10:46; Status DC Ondansetron HCl (Zofran) 4 mg PRN Q4HRS PRN IV NAUSEA/VOMITING; Start 11/03/19 at 09:00 Multivitamins (Thera M Plus) 1 tab DAILY PO Last administered on 11/06/19 08:52; Start 11/04/19 at 11:00 Ascorbic Acid (Vitamin C) 500 mg DAILY PO Last administered on 11/06/19 08:52; Start 11/04/19 at 11:00 Ceftriaxone Sodium (Rocephin) 2 gm Q24H IVP Last administered on 11/06/19 12:29; Start 11/05/19 at 11:00 Doxycycline Hyclate (Vibra-Tab) 100 mg BID PO Last administered on 11/06/19 20:42; Start 11/06/19 at 11:00 Active Scripts Active Percocet 5-325 Mg Tablet (Oxycodone/Acetaminophen) 1 Each Tablet 1 Tab PO PRN Q4HRS PRN Reported Miralax (Polyethylene Glycol 3350) 17 Gm Powd.pack 1 Pkt PO DAILY Senokot (Sennosides) 8.6 Mg Tablet 8.6 Mg PO BID Hydrochlorothiazide Tablet (Hydrochlorothiazide) 25 Mg Tablet 25 Mg PO DAILY Crestor (Rosuvastatin Calcium) 5 Mg Tablet 10 Mg PO HS Amlodipine-Valsartan 10-320 mg (Amlodipine/Valsartan) 1 Each Tablet 1 Each PO HS Oxybutynin Chloride 5 Mg Tablet 5 Mg PO BID Spironolactone 25 Mg Tablet 25 Mg PO DAILY Furosemide 40 Mg Tablet 40 Mg PO DAILY Eliquis (Apixaban) 5 Mg Tablet 5 Mg PO BID Fluticasone Propionate Nasal [place] (Fluticasone Propionate) 16 Gm [place].susp 2 [place] NS DAILY Superior Digestive Enzyme (Digestive Enzymes Combo No.7) 1 Each Capsule 1 Each PO BID Gabapentin (Gabapentin) 300 Mg Capsule 300 Mg PO TID Toprol Xl (Metoprolol Succinate) 50 Mg Tab.er.24h 1 Tab PO DAILY Vitals/I & O Vital Sign - Last 24 Hours 11/06/19 11/06/19 11/06/19 11/06/19 08:53 11:38 15:30 19:13 Temp 97.8 97.6 97.8 97.8 97.6 97.8 Pulse 75 76 74 67 Resp 18 17 17 B/P (MAP) 110/66 133/83 (100) 129/83 (98) 130/74 (92) Pulse Ox 95 96 98 O2 Delivery Room Air Room Air Room Air 11/06/19 11/06/19 11/06/19 11/06/19 19:30 20:41 20:41 22:22 Temp 98.1 98.1 Pulse 67 67 81 Resp 17 B/P (MAP) 130/74 130/74 147/67 (93) Pulse Ox 97 O2 Delivery Room Air Room Air 11/07/19 11/07/19 03:36 06:54 Temp 98.3 97.8 98.3 97.8 Pulse 74 72 Resp 17 18 B/P (MAP) 119/74 (89) 113/65 (81) Pulse Ox 95 96 O2 Delivery Room Air Room Air Intake and Output 11/06/19 11/06/19 11/07/19 15:00 23:00 07:00 Intake Total 480 ml 640 ml Output Total 300 ml 1100 ml Balance 180 ml -460 ml MANDY COOMBS MD November 07, 2019 08:01
[2019-11-07] MEDS: POLYETHYLENE GLYCOL 3350 17 GM PACKET. PO SCH (09:00)
[2019-11-07] MEDS: GABAPENTIN 300 MG CAPSULE. PO SCH ×3 (09:09→21:20)
[2019-11-07] MEDS: MULTIVITAMIN with MINERAL TABLET. PO SCH (09:09)
[2019-11-07] MEDS: SENNOSIDES 8.6 MG TABLET PO SCH ×2 (09:09→21:20)
[2019-11-07] MEDS: DOXYCYCLINE HYCLATE 100 MG TABLET PO SCH (09:09)
[2019-11-07] MEDS: hydroCHLOROthiazide 25 MG TABLET PO SCH (09:09)
[2019-11-07] MEDS: APIXABAN 5 MG TABLET. PO SCH ×2 (09:09→21:20)
[2019-11-07] MEDS: FUROSEMIDE 40 MG TABLET. PO SCH (09:09)
[2019-11-07] MEDS: LACTOBACILLUS RHAMNOSUS GG 1 CAPSULE. PO SCH ×2 (09:09→21:19)
[2019-11-07] MEDS: OXYBUTYNIN CHLORIDE 5 MG TABLET PO SCH ×2 (09:09→21:20)
[2019-11-07] MEDS: ASCORBIC ACID 500 MG TABLET PO SCH (09:10)
[2019-11-07] MEDS: METOPROLOL SUCC 24HR ER 50 MG TAB.ER.24H. PO SCH (09:10)
[2019-11-07] MEDS: FLUTICASONE 50MCG/NASAL SPRAY 16GM BOTTLE. NS SCH (09:10)
[2019-11-07] MEDS: SPIRONOLACTONE 25 MG TABLET PO SCH (09:10)
[2019-11-07 10:14] VITALS: BP 109/68
--- NOTE | 2019-11-07 10:18 | PDOC ---
Infectious Disease Note Subjective: Subjective Patient without complaints Had wound team evaluate patient and now has wound VAC in place Denies fever, nausea, vomiting, shortness of breath, diarrhea, abdominal pain, rash Otherwise as above Vital Signs: Vital Signs Vital Signs Date Time Temp Pulse Resp B/P (MAP) Pulse Ox O2 Delivery O2 Flow Rate FiO2 11/07/19 10:14 97.5 75 16 109/68 (82) 96 Room Air 97.5 11/06/19 08:00 2.0 Physical Exam: PHYSICAL EXAM GENERAL: Alert, oriented x 3 male, pleasant, smiling, lying in bed comfortably, nontoxic appearing, in no acute distress. HEENT: Normocephalic, atraumatic, anicteric. Seborrheic keratosis present. NECK: Supple, no JVD. LUNGS: Clear bilaterally. No wheezing. HEART: S1, S2. No gallops or murmurs. ABDOMEN: Soft, nontender. Ostomy left lower quadrant with good stool output. EXTREMITIES: Trace edema, no cyanosis. DERMATOLOGIC: Gluteal pressure ulcers, right heel wound dressed, no generalized rash except for above. NEUROLOGIC: Cranial nerves 2-12 grossly intact. Paraplegia ,upper extremities, good range of motion. PSYCHIATRIC: Normal mood. Medications: Inpatient Meds: Current Medications Medications (Trade) Dose Ordered Sig/Didi Start Time Stop Time Status Last Admin Dose Admin Acetaminophen (Tylenol) 650 mg PRN Q4HRS PRN 11/02/19 16:15 11/03/19 20:14 650 MG Amlodipine Besylate (Norvasc) 10 mg QHS 11/03/19 21:00 11/06/19 20:41 10 MG Apixaban (Eliquis) 5 mg BID 11/03/19 09:00 11/07/19 09:09 5 MG Ascorbic Acid (Vitamin C) 500 mg DAILY 11/04/19 11:00 11/07/19 09:10 500 MG Atorvastatin Calcium (Lipitor) 40 mg QHS 11/03/19 21:00 11/06/19 20:41 40 MG Ceftriaxone Sodium (Rocephin) 2 gm Q24H 11/05/19 11:00 11/06/19 12:29 2 GM Doxycycline Hyclate (Vibra-Tab) 100 mg BID 11/06/19 11:00 11/07/19 09:09 100 MG Fluticasone Propionate (Flonase) 2 spray DAILY 11/03/19 09:00 11/07/19 09:10 2 SPRAY Furosemide (Lasix) 40 mg DAILY 11/03/19 09:00 11/07/19 09:09 40 MG Gabapentin (Neurontin) 300 mg TID 11/03/19 09:00 11/07/19 09:09 300 MG Hydrochlorothiazide (Hydrodiuril) 25 mg DAILY 11/03/19 09:00 11/07/19 09:09 25 MG Info (Anti-Coagulation Monitoring By Pharmacy) 1 each PRN DAILY PRN 11/02/19 22:00 11/04/19 14:37 1 EACH Lactobacillus Rhamnosus (Culturelle) 1 cap BID 11/03/19 09:00 11/07/19 09:09 1 CAP Losartan Potassium (Cozaar) 100 mg QHS 11/03/19 21:00 11/06/19 20:41 100 MG Metoprolol Succinate (Toprol Xl) 50 mg DAILY 11/03/19 09:00 11/07/19 09:10 50 MG Multivitamins (Thera M Plus) 1 tab DAILY 11/04/19 11:00 11/07/19 09:09 1 TAB Ondansetron HCl (Zofran) 4 mg PRN Q4HRS PRN 11/03/19 09:00 Oxybutynin Chloride (Ditropan) 5 mg BID 11/03/19 09:00 11/07/19 09:09 5 MG Oxycodone/ Acetaminophen (Percocet 5/325) 1 tab PRN Q4HRS PRN 11/02/19 21:30 Piperacillin Sod/ Tazobactam Sod 3.375 gm/Sodium Chloride 50 ml @ 100 mls/hr Q6HRS 11/03/19 00:00 11/05/19 10:46 DC 11/05/19 06:02 100 MLS/HR Polyethylene Glycol (miraLAX PACKET) 17 gm DAILY 11/03/19 09:00 11/06/19 08:51 17 GM Sennosides (Senna) 8.6 mg BID 11/03/19 09:00 11/07/19 09:09 8.6 MG Sodium Chloride 1,000 ml @ 150 mls/hr Q6H40M 11/02/19 16:05 11/03/19 16:04 DC 11/03/19 15:29 150 MLS/HR Spironolactone (Aldactone) 25 mg DAILY 11/03/19 09:00 11/07/19 09:10 25 MG Objective: Assessment: 1. Klebsiella variicola urinary tract infection. 2. Neurogenic bladder status post self-catheterization. 3. Fever likely secondary to Klebsiella variicola urinary tract infection.Resolved 4. Nausea and vomiting, resolved. 5. Transverse myelitis with paraplegia. 6. History of Clostridium difficile colitis. 7. History of multiple decubitus wounds, stable. 8. Right heel wound, status post debridement by wound team, has deep wound, swab cultures positive for many GNR and few GPC 9. History of pulmonary embolism. 10. Abnormal liver function tests. 11. History of ALLERGIES TO CEPHALEXIN with rash, has tolerated ceftriaxone and cefepime . 12. COVID-19 negative. Plan: Plan of Care DC ceftriaxone/ doxy Obtain inflammatory markers CT right lower extremity without Start empiric cefepime/Flagyl/daptomycin Follow-up foot culture, GPC and GNR Wound /vac care as directed NHAN OLSON MD November 07, 2019 10:18
--- NOTE | 2019-11-07 11:10 | NUR ---
SS following up with discharge planning. SS reviewed pt chart and discussed with pt RN. Pt has wound vac. Pt medications changed to IV Daptomycin/Flagyl/Cefepime. Pt is COVID19 negative. Pt requesting home with home healthcare at discharge. SS will continue to follow for discharge planning.
[2019-11-07] MEDS: DAPTOmycin (GENERIC) IVPB 560 MG in IV NORMAL SALINE 50ML 50 ML IV SCH (12:07)
[2019-11-07] MEDS: CEFEPIME HCL IV Push 2 GM VIAL. IVP SCH ×2 (12:08→22:13)
--- NOTE | 2019-11-07 12:23 | RAD ---
DUPLEX LOWER EX ARTERIAL RIGHT Indication: Right heel wound, likely surgical debridement, paraplegic Comparison: None. Procedure: Real-time grayscale, color flow Doppler, and Doppler spectral waveform analysis of the arterial system of the lower extremity is performed. Findings: Normal triphasic waveforms are present in the common femoral artery, superficial femoral artery, popliteal artery, anterior tibial artery, posterior tibial artery and dorsalis pedis artery. No significant velocity elevation. IMPRESSION: 1. No hemodynamically significant arterial stenosis within the right lower extremity. Electronically signed by: Lake Mercado DO (11/07/2019 12:21 PM) [id number]
[2019-11-07] MEDS ORDERED: GADOTERATE 5 MMOL/10ML VIAL. IVP ONE ×2 (14:15)
--- NOTE | 2019-11-07 15:56 | NUR ---
Wound Care Pt's home wound vac has been approved through [facility], when ready for discharge home.
--- NOTE | 2019-11-07 16:28 | RAD ---
EXAMINATION: LOWER EXT JOINT WO/W RIGHT INDICATIONS: Right plantar heel ulcer, exposed periosteum. TECHNIQUE: Multiplanar multisequence MRI of the right foot before and after administration 20 mL gadolinium contrast. COMPARISON: Right foot radiograph 11/04/2019 FINDINGS: There is a deep soft tissue ulcer in the plantar aspect of the heel, overlying the plantar fascia attachment of the calcaneus. This measures 9 mm in width and 1.2 cm in depth. There is packing material in the ulcer. The ulcer extends close to but does not involve the plantar fascia or underlying bone, although there may be a small sinus tract extending close to the bone more posteriorly. No soft tissue abscess. There is no T1 marrow signal abnormality to suggest osteomyelitis. Minimal marrow edema in a plantar calcaneal enthesophyte is likely reactive. Mild marrow edema in the anterior calcaneus and anterior cuboid is likely degenerative. There is an os trigonum and type II accessory navicular without marrow edema. Articular cartilage is intact. No joint effusion. Old partial tear of the deltoid ligament with chronic osseous fragment at the tip of the medial malleolus. The lateral ligamentous complex is intact. There is tendinopathy of the peroneus brevis tendon and Achilles tendon. Remaining tendons are intact. Diffuse muscular atrophy and edema. Extensive subcutaneous edema throughout the ankle and foot. IMPRESSION: 1. Deep soft tissue ulcer over the plantar aspect of the calcaneus. No evidence of osteomyelitis or drainable fluid collection. 2. Extensive subcutaneous edema, and diffuse muscular atrophy and edema in the foot. 3. Peroneus brevis and Achilles tendinopathy. Old medial ankle injury. Electronically signed by: Nya Aguirre MD (11/07/2019 4:25 PM) [id number]
[2019-11-07 19:55] VITALS: BP 99/75
[2019-11-07] MEDS: amLODIPine BESYLATE 10 MG TABLET PO SCH (21:00)
[2019-11-07] MEDS: LOSARTAN POTASSIUM 50 MG TABLET. PO SCH (21:00)
[2019-11-07] MEDS: ATORVASTATIN CALCIUM 40 MG TABLET. PO SCH (21:20)
[2019-11-07 22:15] VITALS: BP 110/75
--- NOTE | 2019-11-08 01:57 | NUR ---
This RN is taking over care from previous RN. Pt. is asleep at this time. Will monitor.
[2019-11-08 02:47] VITALS: BP 121/81
[2019-11-08 07:59] VITALS: BP 114/73
[2019-11-08] MEDS: POLYETHYLENE GLYCOL 3350 17 GM PACKET. PO SCH (09:00)
--- NOTE | 2019-11-08 09:06 | PDOC ---
PROGRESS NOTES Chief Complaint Chief Complaint A/P: UTI - started on empiric zosyn. Will f/u culture results Multiple nonhealing pressure wounds involving sacrococcygeal, left ischium and bilateral heels with necrotic tissue and malodor Right heel wound - wound care to see, debrided S/p diverting colostomy - 04/10/2019 Sepsis - likely 2/2 UTI, less likely to be coccygeal wound. 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 FEN - General diet PPX - eliquis FULL CODE Dispo - inpatient 2 midnight History of Present Illness History of Present Illness Mr Rust is a 64-year-old male with PMHx recent PE, transverse myelitis with paraplegia, neurogenic bladder, and multiple pressure wounds, who was admitted through ED c/o fever, body aches and just feeling terrible. He does have wounds on his coccyx which she is being treated for by wound care. He does self cath every 6 hours, but has been doing this less often due to weakness. He denies any upper respiratory symptoms such as cough or congestion and states he had a negative COVID test a few days prior to admission. He notes he had to do this at [facility] prior to his angiogram last week. Fever 101.7F in ED, WBC 7.2, lactate 2.1. [Was seen in wound clinic on 03/13 and directly admitted to [facility]. He also has recurrent Clostridium difficile infection (07/2018 and 11/2018) still on a taper of oral vancomycin and h/o e. coli UTI (self-caths up to 6 times daily). Transferred to [facility] and underwent diverting colostomy on 04/10/2019. He was discharged to [facility] and has been home since 08/23/2019]. 11/03: COVID 19 negative. Afebrile overnight. Urine culture reported as klebsiella variicola. Overall he notes his has been sterile with his ca theterizations during the day, but they have been struggling with this being at least his 4th UTI this year. He is asking for a Urology opinion. 11/04: Heel wound debrided and redressed. Afebrile. ID consulted. He is feeling improved. Culture sensitivities pending. No CP or SOB 11/05: Afebrile overnight. Klebsiella pansensitive. Heel wound with gram- negative rods culture pending. He feels well no CP or SOB 11/06: Overnight afebrile. Wound care debrided right foot and noted palpable bone in wound. Discussed with ID this is possible source will need an MRI to rule out osteomyelitis, will check vascular studies. No CP or S OB. Patient without complaints. Now has wound VAC in place Afebrile overnight. MRI right foot negative for osteomyelitis. Arterial Doppler right leg negative for vascular compromise. Inflammatory markers elevated CRP and ESR. Foot culture with GNR. He has no complaints. Vitals Vitals Vital Signs Date Time Temp Pulse Resp B/P (MAP) Pulse Ox O2 Delivery O2 Flow Rate FiO2 11/08/19 07:59 98.2 85 18 114/73 (87) 95 Room Air 98.2 11/07/19 20:00 2.0 Physical Exam Physical Exam GENERAL: Alert, oriented x 3 male, pleasant, smiling, lying in bed comfortably, nontoxic appearing, in no acute distress. HEENT: Normocephalic, atraumatic, anicteric. Seborrheic keratosis present. NECK: Supple, no JVD. LUNGS: Clear bilaterally. No wheezing. HEART: S1, S2. No gallops or murmurs. ABDOMEN: Soft, nontender. Ostomy left lower quadrant with good stool output. EXTREMITIES: Trace edema, no cyanosis. DERMATOLOGIC: Gluteal pressure ulcers, right heel wound dressed, no generalized rash except for above. NEUROLOGIC: Cranial nerves 2-12 grossly intact. Paraplegia ,upper extremities, good range of motion. PSYCHIATRIC: Normal mood. General: Alert, Oriented X3, Cooperative, No acute distress Heart: Regular rate Lungs: Clear Abdomen: Soft Extremities: No clubbing, No cyanosis, Other (Previous LORRAINE several months ago was 1.1) Skin: Other (Right heel demonstrates stage IV pressure ulcer down to periosteum following debridement. Recent demonstration of pus and now loss of heel fat pad at the site of infection. Ulcer size is 0.9 cm x 1 cm x 1.8 cm with undermining as large as 1.1 cm particularly at 10:00 on the ulcer.) Labs LABS Laboratory Tests Test 11/07/19 11:50 11/08/19 03:30 Creatine Kinase 22 U/L (39-308) Erythrocyte Sedimentation Rate 70 (0-15) C-Reactive Protein, Quantitative 31.0 mg/L (0-3.3) Assessment and Plan Assessmemt and Plan Problems Medical Problems: (1) Fever Status: Acute (2) Person under investigation for COVID-19 Status: Acute Comment Review of Relevant I have reviewed the following items franc (where applicable) has been applied. Labs Laboratory Tests Test 11/07/19 11:50 11/08/19 03:30 Creatine Kinase 22 U/L (39-308) Erythrocyte Sedimentation Rate 70 (0-15) C-Reactive Protein, Quantitative 31.0 mg/L (0-3.3) Laboratory Tests Test 11/07/19 11:50 11/08/19 03:30 Creatine Kinase 22 U/L (39-308) Erythrocyte Sedimentation Rate 70 (0-15) C-Reactive Protein, Quantitative 31.0 mg/L (0-3.3) Microbiology 11/04/19 Gram Stain - Final, Complete 11/04/19 Aerobic Culture - Final, Complete 11/03/19 Blood Culture - Final, Complete NO GROWTH AFTER 5 DAYS 11/02/19 Urine Culture - Final, Complete 11/02/19 Antimicrobic Susceptibility - Final, Complete Medications Current Medications Piperacillin Sod/ Tazobactam Sod 3.375 gm/Sodium Chloride 50 ml @ 100 mls/hr 1X ONCE IV Last administered on 11/02/19at 15:43; Start 11/02/19 at 15:30; Stop 11/02/19 at 15:59; Status DC Sodium Chloride 1,000 ml @ 1,000 mls/hr 1X ONCE IV Last administered on 11/02/19at 16:18; Start 11/02/19 at 16:15; Stop 11/02/19 at 17:14; Status DC Ondansetron HCl (Zofran) 4 mg PRN Q8HRS PRN IV NAUSEA/VOMITING Last administered on 11/02/19at 23:05; Start 11/02/19 at 16:15; Stop 11/03/19 at 08:54; Status DC Sodium Chloride 1,000 ml @ 150 mls/hr Q6H40M IV Last administered on 11/03/19at 15:29; Start 11/02/19 at 16:05; Stop 11/03/19 at 16:04; Status DC Acetaminophen (Tylenol) 650 mg PRN Q4HRS PRN PO FEVER > 100.3'F Last administered on 11/03/19at 20:14; Start 11/02/19 at 16:15 Oxycodone/ Acetaminophen (Percocet 5/325) 2 tab 1X ONCE PO Last administered on 11/02/19at 17:44; Start 11/02/19 at 17:15; Stop 11/02/19 at 17:16; Status DC Apixaban (Eliquis) 5 mg BID PO Last administered on 11/07/19 21:20; Start 11/03/19 at 09:00 Fluticasone Propionate (Flonase) 2 spray DAILY NS Last administered on 11/07/19at 09:10; Start 11/03/19 at 09:00 Furosemide (Lasix) 40 mg DAILY PO Last administered on 11/07/19 09:09; Start 11/03/19 at 09:00 Gabapentin (Neurontin) 300 mg TID PO Last administered on 11/07/19 21:20; Start 11/03/19 at 09:00 Hydrochlorothiazide (Hydrodiuril) 25 mg DAILY PO Last administered on 11/07/19at 09:09; Start 11/03/19 at 09:00 Oxybutynin Chloride (Ditropan) 5 mg BID PO Last administered on 11/07/19at 21:2 0; Start 11/03/19 at 09:00 Oxycodone/ Acetaminophen (Percocet 5/325) 1 tab PRN Q4HRS PRN PO MODERATE- SEVERE PAIN; Start 11/02/19 at 21:30 Polyethylene Glycol (miraLAX PACKET) 17 gm DAILY PO Last administered on 11/06/19at 08:51; Start 11/03/19 at 09:00 Sennosides (Senna) 8.6 mg BID PO Last administered on 11/07/19 21:20; Start 11/03/19 at 09:00 Spironolactone (Aldactone) 25 mg DAILY PO Last administered on 11/07/19 09:10; Start 11/03/19 at 09:00 Amlodipine Besylate (Norvasc) 10 mg QHS PO Last administered on 11/06/19 20:41; Start 11/03/19 at 21:00 Lactobacillus Rhamnosus (Culturelle) 1 cap BID PO Last administered on 11/07/19 at 21:19; Start 11/03/19 at 09:00 Metoprolol Succinate (Toprol Xl) 50 mg DAILY PO Last administered on 11/07/19 09:10; Start 11/03/19 at 09:00 Atorvastatin Calcium (Lipitor) 40 mg QHS PO Last administered on 11/07/19 21:20; Start 11/03/19 at 21:00 Info (Anti-Coagulation Monitoring By Pharmacy) 1 each PRN DAILY PRN MC SEE COMMENTS Last administered on 11/04/19at 14:37; Start 11/02/19 at 22:00 Losartan Potassium (Cozaar) 100 mg QHS PO Last administered on 11/06/19 20:41; Start 11/03/19 at 21:00 Piperacillin Sod/ Tazobactam Sod 3.375 gm/Sodium Chloride 50 ml @ 100 mls/hr Q6HRS IV Last administered on 11/05/19 06:02; Start 11/03/19 at 00:00; Stop 11/05/19 at 10:46; Status DC Ondansetron HCl (Zofran) 4 mg PRN Q4HRS PRN IV NAUSEA/VOMITING; Start 11/03/19 at 09:00 Multivitamins (Thera M Plus) 1 tab DAILY PO Last administered on 11/07/19 09:09; Start 11/04/19 at 11:00 Ascorbic Acid (Vitamin C) 500 mg DAILY PO Last administered on 11/07/19 09:10; Start 11/04/19 at 11:00 Ceftriaxone Sodium (Rocephin) 2 gm Q24H IVP Last administered on 11/06/19 12:29; Start 11/05/19 at 11:00; Stop 11/07/19 at 11:01; Status DC Doxycycline Hyclate (Vibra-Tab) 100 mg BID PO Last administered on 11/07/19 09:09; Start 11/06/19 at 11:00; Stop 11/07/19 at 11:01; Status DC Cefepime HCl (Maxipime) 2 gm Q12HR IVP Last administered on 11/07/19at 22:13; Start 11/07/19 at 12:00 Metronidazole 100 ml @ 100 mls/hr Q12HR IV Last administered on 11/07/19at 21:19; Start 11/07/19 at 12:00 Daptomycin 560 mg/ Sodium Chloride 50 ml @ 100 mls/hr Q24H IV Last administered on 11/07/19at 12:07; Start 11/07/19 at 12:00 Gadoterate Meglumine (Dotarem) 10 ml 1X ONCE IVP Last administered on 11/07/19at 14:25; Start 11/07/19 at 14:15; Stop 11/07/19 at 14:16; Status DC Gadoterate Meglumine (Dotarem) 10 ml 1X ONCE IVP Last administered on 11/07/19at 14:25; Start 11/07/19 at 14:15; Stop 11/07/19 at 14:16; Status DC Active Scripts Active Percocet 5-325 Mg Tablet (Oxycodone/Acetaminophen) 1 Each Tablet 1 Tab PO PRN Q4HRS PRN Reported Miralax (Polyethylene Glycol 3350) 17 Gm Powd.pack 1 Pkt PO DAILY Senokot (Sennosides) 8.6 Mg Tablet 8.6 Mg PO BID Hydrochlorothiazide Tablet (Hydrochlorothiazide) 25 Mg Tablet 25 Mg PO DAILY Crestor (Rosuvastatin Calcium) 5 Mg Tablet 10 Mg PO HS Amlodipine-Valsartan 10-320 mg (Amlodipine/Valsartan) 1 Each Tablet 1 Each PO HS Oxybutynin Chloride 5 Mg Tablet 5 Mg PO BID Spironolactone 25 Mg Tablet 25 Mg PO DAILY Furosemide 40 Mg Tablet 40 Mg PO DAILY Eliquis (Apixaban) 5 Mg Tablet 5 Mg PO BID Fluticasone Propionate Nasal [place] (Fluticasone Propionate) 16 Gm [place].susp 2 [place] NS DAILY Superior Digestive Enzyme (Digestive Enzymes Combo No.7) 1 Each Capsule 1 Each PO BID Gabapentin (Gabapentin) 300 Mg Capsule 300 Mg PO TID Toprol Xl (Metoprolol Succinate) 50 Mg Tab.er.24h 1 Tab PO DAILY Vitals/I & O Vital Sign - Last 24 Hours 11/07/19 11/07/19 11/07/19 11/07/19 09:10 10:14 19:55 20:00 Temp 97.5 98.7 97.5 98.7 Pulse 72 75 86 Resp 16 16 B/P (MAP) 113/65 109/68 (82) 99/75 (83) Pulse Ox 96 95 O2 Delivery Room Air Room Air Room Air O2 Flow Rate 2.0 11/07/19 11/07/19 11/07/19 11/08/19 21:00 21:00 22:15 02:47 Temp 98.1 97.7 98.1 97.7 Pulse 86 86 96 87 Resp 20 18 B/P (MAP) 99/75 99/75 110/75 (87) 121/81 (94) Pulse Ox 96 95 O2 Delivery Room Air Room Air 11/08/19 07:59 Temp 98.2 98.2 Pulse 85 Resp 18 B/P (MAP) 114/73 (87) Pulse Ox 95 O2 Delivery Room Air Intake and Output 11/07/19 11/07/19 11/08/19 15:00 23:00 07:00 Intake Total 440 ml 900 ml 500 ml Output Total 1000 ml 1100 ml 950 ml Balance -560 ml -200 ml -450 ml MANDY COOMBS MD November 08, 2019 09:06
--- NOTE | 2019-11-08 10:52 | PDOC ---
Infectious Disease Note Subjective Subjective Comfortable, denies F/C/aches/N/V ROS ROS as mentioned above Vital Sign Vital Signs Vital Signs Date Time Temp Pulse Resp B/P (MAP) Pulse Ox O2 Delivery O2 Flow Rate FiO2 11/08/19 07:59 98.2 85 18 114/73 (87) 95 Room Air 98.2 11/07/19 20:00 2.0 Physical Exam PHYSICAL EXAM GENERAL: Propped up in bed, alert, smiling HEENT: Seborrheic keratosis present. Oral cavity clear NECK: Supple, no JVD. LUNGS: Clear bilaterally. No wheezing. HEART: S1, S2. No gallops or murmurs. ABDOMEN: Obese, + ostomy left lower quadrant : [place] EXTREMITIES: Trace edema, no cyanosis. SKIN: Gluteal pressure ulcers (pics reviewed), right heel wound vac in place NEUROLOGIC: Alert, oriented x 3, paraplegia ,upper extremities, good range of motion. PIVs ok Labs Lab Laboratory Tests Test 11/07/19 11:50 11/08/19 03:30 Creatine Kinase 22 U/L (39-308) Erythrocyte Sedimentation Rate 70 (0-15) C-Reactive Protein, Quantitative 31.0 mg/L (0-3.3) Micro GRAM STAIN Final Final GRAM NEGATIVE RODS:MANY GRAM POSITIVE COCCI:FEW AEROBIC CULTURE Final Final MIXED AEROBIC DIMA on 11/07/19 at 1215 INCLUDING: MODERATE [GRAM NEGATIVE RODS] X 2 MODERATE Mixed skin dima isolated GRAM NEGATIVE RODS Objective Assessment Klebsiella variicola urinary tract infection, 11/01 Neurogenic bladder status post self-catheterization. Fever likely secondary to Klebsiella variicola urinary tract infection.Resolved Right heel wound, status post debridement by wound team, has deep wound, - 11/03. swab cultures mixed dima and GNR. No further work-up done. Nausea and vomiting, resolved. Transverse myelitis with paraplegia. History of Clostridium difficile colitis. History of multiple decubitus wounds, stable. History of pulmonary embolism. Abnormal liver function tests. History of ALLERGIES TO CEPHALEXIN with rash, has tolerated ceftriaxone and cefepime . COVID-19 negative. Plan Plan of Care Empiric Dapto, cefepime and Flagyl Probiotic f/u am labs d/w [place] micro.Cultures final. No further GNR work-up done Wound /vac care as directed D/w nursing Attending Co-Sign The patient was seen and interviewed as well as examined at the bedside. The chart was reviewed. The case was discussed. Agree with the plan of care. BEATRICE RO APRN November 08, 2019 10:52 STEVENSON OLSON MD November 08, 2019 12:42
[2019-11-08] MEDS: GABAPENTIN 300 MG CAPSULE. PO SCH ×3 (10:58→21:02)
[2019-11-08] MEDS: hydroCHLOROthiazide 25 MG TABLET PO SCH (10:58)
[2019-11-08] MEDS: MULTIVITAMIN with MINERAL TABLET. PO SCH (11:01)
[2019-11-08] MEDS: ASCORBIC ACID 500 MG TABLET PO SCH (11:02)
[2019-11-08] MEDS: OXYBUTYNIN CHLORIDE 5 MG TABLET PO SCH ×2 (11:02→21:02)
[2019-11-08] MEDS: APIXABAN 5 MG TABLET. PO SCH ×2 (11:02→21:02)
[2019-11-08] MEDS: FUROSEMIDE 40 MG TABLET. PO SCH (11:02)
[2019-11-08] MEDS: SPIRONOLACTONE 25 MG TABLET PO SCH (11:03)
[2019-11-08] MEDS: SENNOSIDES 8.6 MG TABLET PO SCH ×2 (11:03→21:01)
[2019-11-08 11:04] VITALS: BP 108/67
[2019-11-08] MEDS: LACTOBACILLUS RHAMNOSUS GG 1 CAPSULE. PO SCH ×2 (11:04→21:01)
[2019-11-08] MEDS: METOPROLOL SUCC 24HR ER 50 MG TAB.ER.24H. PO SCH (11:04)
[2019-11-08] MEDS: FLUTICASONE 50MCG/NASAL SPRAY 16GM BOTTLE. NS SCH (11:05)
[2019-11-08] MEDS: CEFEPIME HCL IV Push 2 GM VIAL. IVP SCH ×2 (11:08→21:01)
[2019-11-08 15:51] VITALS: BP 125/70
[2019-11-08] MEDS: DAPTOmycin (GENERIC) IVPB 560 MG in IV NORMAL SALINE 50ML 50 ML IV SCH (15:57)
[2019-11-08 19:00] VITALS: BP 92/68
[2019-11-08] MEDS: LOSARTAN POTASSIUM 50 MG TABLET. PO SCH (19:58)
[2019-11-08] MEDS: amLODIPine BESYLATE 10 MG TABLET PO SCH (19:58)
[2019-11-08] MEDS: ATORVASTATIN CALCIUM 40 MG TABLET. PO SCH (21:02)
[2019-11-08 23:01] VITALS: BP 118/50
[2019-11-09 03:01] VITALS: BP 118/70
[2019-11-09 05:30] LABS: ALBUMIN 2.7 g/dL (3.4-5.0); ALBUMIN/GLOBULIN RATIO 0.7 (1.0-1.7); CALCIUM 8.3 mg/dL (8.5-10.1); CREATININE 0.9 mg/dL (0.7-1.3); GFR 84.4; POTASSIUM 3.3 mmol/L (3.5-5.1); TOTAL BILIRUBIN 0.3 mg/dL (0.2-1.0); TOTAL PROTEIN 6.6 g/dL (6.4-8.2)
[2019-11-09 05:45] LABS: BASO # 0.1 x10^3/uL (0.0-0.2); BASO % 1 % (0-3); EOS # 0.7 x10^3/uL (0.0-0.7); EOS % 7 % (0-3); HEMATOCRIT 34.8 % (39.0-53.0); LYMPH # 2.2 x10^3/uL (1.0-4.8); LYMPH % 22 % (24-48); MEAN CORPUSCULAR HEMOGLOBIN 30 pg (25-35); MEAN CORPUSCULAR HGB CONC 35 g/dL (31-37); MEAN CORPUSCULAR VOLUME 88 fL (79-100); MONO # 0.8 x10^3/uL (0.0-1.1); MONO % 8 % (0-9); NEUT # 6.1 x10^3/uL (1.8-7.7); NEUT % 62 % (31-73); PLATELET COUNT 283 x10^3/uL (140-400); RED BLOOD COUNT 3.97 x10^6/uL (4.30-5.70); RED CELL DISTRIBUTION WIDTH 13.9 % (11.5-14.5); WHITE BLOOD COUNT 9.8 x10^3/uL (4.0-11.0)
[2019-11-09 07:26] VITALS: BP 117/76
[2019-11-09] MEDS ORDERED: POTASSIUM CHLORIDE 20 MEQ TABLET.ER. PO ONE (07:45)
--- NOTE | 2019-11-09 07:49 | PDOC ---
PROGRESS NOTES Chief Complaint Chief Complaint A/P: UTI - started on empiric zosyn. Will f/u culture results Multiple nonhealing pressure wounds involving sacrococcygeal, left ischium and bilateral heels with necrotic tissue and malodor Right heel wound - wound care to see, debrided S/p diverting colostomy - 04/10/2019 Sepsis - likely 2/2 UTI, less likely to be coccygeal wound. COVID 19 testing negative History of recurrent Clostridium difficile diarrhea, Neurogenic bladder requiring self-catheterizations Transverse myelitis with subsequent paraplegia - on high dose steroids on 02/12 - 12/27 MRI L/S C/W Progression in both signal intensity and superior extent of diffusely History of pulmonary embolism - on eliquis therapy Severe protein calorie malnutrition - centrifugal spinner to see MORBID OBESITY Anemia - likely of chronic inflammation Hypokalemia Lactic acidosis Transaminitis - will monitor, likely sepsis related. FEN - General diet PPX - eliquis FULL CODE Dispo - inpatient 2 midnight History of Present Illness History of Present Illness Mr Rust is a 64-year-old male with PMHx recent PE, transverse myelitis with paraplegia, neurogenic bladder, and multiple pressure wounds, who was admitted through ED c/o fever, body aches and just feeling terrible. He does have wounds on his coccyx which she is being treated for by wound care. He does self cath every 6 hours, but has been doing this less often due to weakness. He denies any upper respiratory symptoms such as cough or congestion and states he had a negative COVID test a few days prior to admission. He notes he had to do this at [facility] prior to his angiogram last week. Fever 101.7F in ED, WBC 7.2, lactate 2.1. [Was seen in wound clinic on 03/13 and directly admitted to [facility]. He also has recurrent Clostridium difficile infection (07/2018 and 11/2018) still on a taper of oral vancomycin and h/o e. coli UTI (self-caths up to 6 times daily). Transferred to [facility] and underwent diverting colostomy on 04/10/2019. He was discharged to [facility] and has been home since 08/23/2019]. 11/03: COVID 19 negative. Afebrile overnight. Urine culture reported as klebsiella variicola. Overall he notes his has been sterile with his ca theterizations during the day, but they have been struggling with this being at least his 4th UTI this year. He is asking for a Urology opinion. 11/04: Heel wound debrided and redressed. Afebrile. ID consulted. He is feeling improved. Culture sensitivities pending. No CP or SOB 11/05: Afebrile overnight. Klebsiella pansensitive. Heel wound with gram- negative rods culture pending. He feels well no CP or SOB 11/06: Overnight afebrile. Wound care debrided right foot and noted palpable bone in wound. Discussed with ID this is possible source will need an MRI to rule out osteomyelitis, will check vascular studies. No CP or S OB. Patient without complaints. Now has wound VAC in place 11/07: Afebrile overnight. MRI right foot negative for osteomyelitis. Arterial Doppler right leg negative for vascular compromise. Inflammatory markers elevated CRP and ESR. Foot culture with GNR. Afebrile overnight. K3.3. He has no complaints. Slept well. Foot culture sensitivities pending, ID has requested them from [place]. Vitals Vitals Vital Signs Date Time Temp Pulse Resp B/P (MAP) Pulse Ox O2 Delivery O2 Flow Rate FiO2 11/09/19 07:26 98.6 80 18 117/76 (90) 96 Room Air 98.6 Physical Exam Physical Exam GENERAL: Propped up in bed, alert, smiling HEENT: Seborrheic keratosis present. Oral cavity clear NECK: Supple, no JVD. LUNGS: Clear bilaterally. No wheezing. HEART: S1, S2. No gallops or murmurs. ABDOMEN: Obese, + ostomy left lower quadrant : Parker EXTREMITIES: Trace edema, no cyanosis. SKIN: Gluteal pressure ulcers (pics reviewed), right heel wound vac in place NEUROLOGIC: Alert, oriented x 3, paraplegia ,upper extremities, good range of motion. PIVs ok General: Alert, Oriented X3, Cooperative, No acute distress Heart: Regular rate Lungs: Clear Abdomen: Soft Extremities: No clubbing, No cyanosis, Other (Previous LORRAINE several months ago was 1.1) Skin: Other (Right heel demonstrates stage IV pressure ulcer down to periosteum following debridement. Recent demonstration of pus and now loss of heel fat pad at the site of infection. Ulcer size is 0.9 cm x 1 cm x 1.8 cm with undermining as large as 1.1 cm particularly at 10:00 on the ulcer.) Labs LABS Laboratory Tests Test 11/09/19 04:04 White Blood Count 9.8 x10^3/uL (4.0-11.0) Red Blood Count 3.97 x10^6/uL (4.30-5.70) Hemoglobin 12.0 g/dL (13.0-17.5) Hematocrit 34.8 % (39.0-53.0) Mean Corpuscular Volume 88 fL (79-100) Mean Corpuscular Hemoglobin 30 pg (25-35) Mean Corpuscular Hemoglobin Concent 35 g/dL (31-37) Red Cell Distribution Width 13.9 % (11.5-14.5) Platelet Count 283 x10^3/uL (140-400) Neutrophils (%) (Auto) 62 % (31-73) Lymphocytes (%) (Auto) 22 % (24-48) Monocytes (%) (Auto) 8 % (0-9) Eosinophils (%) (Auto) 7 % (0-3) Basophils (%) (Auto) 1 % (0-3) Neutrophils # (Auto) 6.1 x10^3/uL (1.8-7.7) Lymphocytes # (Auto) 2.2 x10^3/uL (1.0-4.8) Monocytes # (Auto) 0.8 x10^3/uL (0.0-1.1) Eosinophils # (Auto) 0.7 x10^3/uL (0.0-0.7) Basophils # (Auto) 0.1 x10^3/uL (0.0-0.2) Sodium Level 140 mmol/L (136-145) Potassium Level 3.3 mmol/L (3.5-5.1) Chloride Level 103 mmol/L (98-107) Carbon Dioxide Level 25 mmol/L (21-32) Anion Gap 12 (6-14) Blood Urea Nitrogen 36 mg/dL (8-26) Creatinine 0.9 mg/dL (0.7-1.3) Estimated GFR (Cockcroft-Gault) 84.4 BUN/Creatinine Ratio 40 (6-20) Glucose Level 113 mg/dL (70-99) Calcium Level 8.3 mg/dL (8.5-10.1) Total Bilirubin 0.3 mg/dL (0.2-1.0) Aspartate Amino Transf (AST/SGOT) 30 U/L (15-37) Alanine Aminotransferase (ALT/SGPT) 63 U/L (16-63) Alkaline Phosphatase 109 U/L (46-116) Total Protein 6.6 g/dL (6.4-8.2) Albumin 2.7 g/dL (3.4-5.0) Albumin/Globulin Ratio 0.7 (1.0-1.7) Assessment and Plan Assessmemt and Plan Problems Medical Problems: (1) Fever Status: Acute (2) Person under investigation for COVID-19 Status: Acute Comment Review of Relevant I have reviewed the following items franc (where applicable) has been applied. Labs Laboratory Tests Test 11/07/19 11:50 11/08/19 03:30 11/09/19 04:04 Creatine Kinase 22 U/L (39-308) Erythrocyte Sedimentation Rate 70 (0-15) C-Reactive Protein, Quantitative 31.0 mg/L (0-3.3) White Blood Count 9.8 x10^3/uL (4.0-11.0) Red Blood Count 3.97 x10^6/uL (4.30-5.70) Hemoglobin 12.0 g/dL (13.0-17.5) Hematocrit 34.8 % (39.0-53.0) Mean Corpuscular Volume 88 fL (79-100) Mean Corpuscular Hemoglobin 30 pg (25-35) Mean Corpuscular Hemoglobin Concent 35 g/dL (31-37) Red Cell Distribution Width 13.9 % (11.5-14.5) Platelet Count 283 x10^3/uL (140-400) Neutrophils (%) (Auto) 62 % (31-73) Lymphocytes (%) (Auto) 22 % (24-48) Monocytes (%) (Auto) 8 % (0-9) Eosinophils (%) (Auto) 7 % (0-3) Basophils (%) (Auto) 1 % (0-3) Neutrophils # (Auto) 6.1 x10^3/uL (1.8-7.7) Lymphocytes # (Auto) 2.2 x10^3/uL (1.0-4.8) Monocytes # (Auto) 0.8 x10^3/uL (0.0-1.1) Eosinophils # (Auto) 0.7 x10^3/uL (0.0-0.7) Basophils # (Auto) 0.1 x10^3/uL (0.0-0.2) Sodium Level 140 mmol/L (136-145) Potassium Level 3.3 mmol/L (3.5-5.1) Chloride Level 103 mmol/L (98-107) Carbon Dioxide Level 25 mmol/L (21-32) Anion Gap 12 (6-14) Blood Urea Nitrogen 36 mg/dL (8-26) Creatinine 0.9 mg/dL (0.7-1.3) Estimated GFR (Cockcroft-Gault) 84.4 BUN/Creatinine Ratio 40 (6-20) Glucose Level 113 mg/dL (70-99) Calcium Level 8.3 mg/dL (8.5-10.1) Total Bilirubin 0.3 mg/dL (0.2-1.0) Aspartate Amino Transf (AST/SGOT) 30 U/L (15-37) Alanine Aminotransferase (ALT/SGPT) 63 U/L (16-63) Alkaline Phosphatase 109 U/L (46-116) Total Protein 6.6 g/dL (6.4-8.2) Albumin 2.7 g/dL (3.4-5.0) Albumin/Globulin Ratio 0.7 (1.0-1.7) Laboratory Tests Test 11/09/19 04:04 White Blood Count 9.8 x10^3/uL (4.0-11.0) Red Blood Count 3.97 x10^6/uL (4.30-5.70) Hemoglobin 12.0 g/dL (13.0-17.5) Hematocrit 34.8 % (39.0-53.0) Mean Corpuscular Volume 88 fL (79-100) Mean Corpuscular Hemoglobin 30 pg (25-35) Mean Corpuscular Hemoglobin Concent 35 g/dL (31-37) Red Cell Distribution Width 13.9 % (11.5-14.5) Platelet Count 283 x10^3/uL (140-400) Neutrophils (%) (Auto) 62 % (31-73) Lymphocytes (%) (Auto) 22 % (24-48) Monocytes (%) (Auto) 8 % (0-9) Eosinophils (%) (Auto) 7 % (0-3) Basophils (%) (Auto) 1 % (0-3) Neutrophils # (Auto) 6.1 x10^3/uL (1.8-7.7) Lymphocytes # (Auto) 2.2 x10^3/uL (1.0-4.8) Monocytes # (Auto) 0.8 x10^3/uL (0.0-1.1) Eosinophils # (Auto) 0.7 x10^3/uL (0.0-0.7) Basophils # (Auto) 0.1 x10^3/uL (0.0-0.2) Sodium Level 140 mmol/L (136-145) Potassium Level 3.3 mmol/L (3.5-5.1) Chloride Level 103 mmol/L (98-107) Carbon Dioxide Level 25 mmol/L (21-32) Anion Gap 12 (6-14) Blood Urea Nitrogen 36 mg/dL (8-26) Creatinine 0.9 mg/dL (0.7-1.3) Estimated GFR (Cockcroft-Gault) 84.4 BUN/Creatinine Ratio 40 (6-20) Glucose Level 113 mg/dL (70-99) Calcium Level 8.3 mg/dL (8.5-10.1) Total Bilirubin 0.3 mg/dL (0.2-1.0) Aspartate Amino Transf (AST/SGOT) 30 U/L (15-37) Alanine Aminotransferase (ALT/SGPT) 63 U/L (16-63) Alkaline Phosphatase 109 U/L (46-116) Total Protein 6.6 g/dL (6.4-8.2) Albumin 2.7 g/dL (3.4-5.0) Albumin/Globulin Ratio 0.7 (1.0-1.7) Microbiology 11/04/19 Gram Stain - Final, Complete 11/04/19 Aerobic Culture - Final, Complete 11/03/19 Blood Culture - Final, Complete NO GROWTH AFTER 5 DAYS 11/02/19 Urine Culture - Final, Complete 11/02/19 Antimicrobic Susceptibility - Final, Complete Medications Current Medications Piperacillin Sod/ Tazobactam Sod 3.375 gm/Sodium Chloride 50 ml @ 100 mls/hr 1X ONCE IV Last administered on 11/02/19at 15:43; Start 11/02/19 at 15:30; Stop 11/02/19 at 15:59; Status DC Sodium Chloride 1,000 ml @ 1,000 mls/hr 1X ONCE IV Last administered on 11/02/19at 16:18; Start 11/02/19 at 16:15; Stop 11/02/19 at 17:14; Status DC Ondansetron HCl (Zofran) 4 mg PRN Q8HRS PRN IV NAUSEA/VOMITING Last administered on 11/02/19at 23:05; Start 11/02/19 at 16:15; Stop 11/03/19 at 08:54; Status DC Sodium Chloride 1,000 ml @ 150 mls/hr Q6H40M IV Last administered on 11/03/19at 15:29; Start 11/02/19 at 16:05; Stop 11/03/19 at 16:04; Status DC Acetaminophen (Tylenol) 650 mg PRN Q4HRS PRN PO FEVER > 100.3'F Last administe red on 11/03/19at 20:14; Start 11/02/19 at 16:15 Oxycodone/ Acetaminophen (Percocet 5/325) 2 tab 1X ONCE PO Last administered o n 11/02/19at 17:44; Start 11/02/19 at 17:15; Stop 11/02/19 at 17:16; Status DC Apixaban (Eliquis) 5 mg BID PO Last administered on 11/08/19 21:02; Start 11/03/19 at 09:00 Fluticasone Propionate (Flonase) 2 spray DAILY NS Last administered on 11/08/19 11:05; Start 11/03/19 at 09:00 Furosemide (Lasix) 40 mg DAILY PO Last administered on 11/08/19 11:02; Start 11/03/19 at 09:00 Gabapentin (Neurontin) 300 mg TID PO Last administered on 11/08/19 21:02; Start 11/03/19 at 09:00 Hydrochlorothiazide (Hydrodiuril) 25 mg DAILY PO Last administered on 11/08/19at 10:58; Start 11/03/19 at 09:00 Oxybutynin Chloride (Ditropan) 5 mg BID PO Last administered on 11/08/19 21:02; Start 11/03/19 at 09:00 Oxycodone/ Acetaminophen (Percocet 5/325) 1 tab PRN Q4HRS PRN PO MODERATE- SEVERE PAIN; Start 11/02/19 at 21:30 Polyethylene Glycol (miraLAX PACKET) 17 gm DAILY PO Last administered on 11/06/19 08:51; Start 11/03/19 at 09:00 Sennosides (Senna) 8.6 mg BID PO Last administered on 11/08/19 21:01; Start 11/03/19 at 09:00 Spironolactone (Aldactone) 25 mg DAILY PO Last administered on 11/08/19 11:03; Start 11/03/19 at 09:00 Amlodipine Besylate (Norvasc) 10 mg QHS PO Last administered on 11/06/19 20:41; Start 11/03/19 at 21:00 Lactobacillus Rhamnosus (Culturelle) 1 cap BID PO Last administered on 11/08/19 21:01; Start 11/03/19 at 09:00 Metoprolol Succinate (Toprol Xl) 50 mg DAILY PO Last administered on 11/08/19 11:04; Start 11/03/19 at 09:00 Atorvastatin Calcium (Lipitor) 40 mg QHS PO Last administered on 11/08/19 2 1:02; Start 11/03/19 at 21:00 Info (Anti-Coagulation Monitoring By Pharmacy) 1 each PRN DAILY PRN MC SEE COMMENTS Last administered on 11/04/19at 14:37; Start 11/02/19 at 22:00 Losartan Potassium (Cozaar) 100 mg QHS PO Last administered on 11/06/19 20:41; Start 11/03/19 at 21:00 Piperacillin Sod/ Tazobactam Sod 3.375 gm/Sodium Chloride 50 ml @ 100 mls/hr Q6HRS IV Last administered on 11/05/19 06:02; Start 11/03/19 at 00:00; Stop 11/05/19 at 10:46; Status DC Ondansetron HCl (Zofran) 4 mg PRN Q4HRS PRN IV NAUSEA/VOMITING; Start 11/03/19 at 09:00 Multivitamins (Thera M Plus) 1 tab DAILY PO Last administered on 11/08/19at 11:01; Start 11/04/19 at 11:00 Ascorbic Acid (Vitamin C) 500 mg DAILY PO Last administered on 11/08/19at 11:02; Start 11/04/19 at 11:00 Ceftriaxone Sodium (Rocephin) 2 gm Q24H IVP Last administered on 11/06/19at 12:29; Start 11/05/19 at 11:00; Stop 11/07/19 at 11:01; Status DC Doxycycline Hyclate (Vibra-Tab) 100 mg BID PO Last administered on 11/07/19at 09:09; Start 11/06/19 at 11:00; Stop 11/07/19 at 11:01; Status DC Cefepime HCl (Maxipime) 2 gm Q12HR IVP Last administered on 11/08/19at 21:01; Start 11/07/19 at 12:00 Metronidazole 100 ml @ 100 mls/hr Q12HR IV Last administered on 11/08/19at 21:01; Start 11/07/19 at 12:00 Daptomycin 560 mg/ Sodium Chloride 50 ml @ 100 mls/hr Q24H IV Last administered on 11/08/19at 15:57; Start 11/07/19 at 12:00 Gadoterate Meglumine (Dotarem) 10 ml 1X ONCE IVP Last administered on 11/07/19at 14:25; Start 11/07/19 at 14:15; Stop 11/07/19 at 14:16; Status DC Gadoterate Meglumine (Dotarem) 10 ml 1X ONCE IVP Last administered on 11/07/19at 14:25; Start 11/07/19 at 14:15; Stop 11/07/19 at 14:16; Status DC Potassium Chloride (Klor-Con) 20 meq DAILYWBKFT PO ; Start 11/09/19 at 08:00; Status UNV Potassium Chloride (Klor-Con) 20 meq 1X ONCE PO ; Start 11/09/19 at 07:45; Stop 11/09/19 at 07:46; Status UNV Potassium Chloride/Water 100 ml @ 100 mls/hr Q1H IV ; Start 11/09/19 at 07:45; Stop 11/09/19 at 09:44; Status UNV Active Scripts Active Percocet 5-325 Mg Tablet (Oxycodone/Acetaminophen) 1 Each Tablet 1 Tab PO PRN Q4HRS PRN Reported Miralax (Polyethylene Glycol 3350) 17 Gm Powd.pack 1 Pkt PO DAILY Senokot (Sennosides) 8.6 Mg Tablet 8.6 Mg PO BID Hydrochlorothiazide Tablet (Hydrochlorothiazide) 25 Mg Tablet 25 Mg PO DAILY Crestor (Rosuvastatin Calcium) 5 Mg Tablet 10 Mg PO HS Amlodipine-Valsartan 10-320 mg (Amlodipine/Valsartan) 1 Each Tablet 1 Each PO HS Oxybutynin Chloride 5 Mg Tablet 5 Mg PO BID Spironolactone 25 Mg Tablet 25 Mg PO DAILY Furosemide 40 Mg Tablet 40 Mg PO DAILY Eliquis (Apixaban) 5 Mg Tablet 5 Mg PO BID Fluticasone Propionate Nasal [place] (Fluticasone Propionate) 16 Gm [place].susp 2 [place] NS DAILY Superior Digestive Enzyme (Digestive Enzymes Combo No.7) 1 Each Capsule 1 Each PO BID Gabapentin (Gabapentin) 300 Mg Capsule 300 Mg PO TID Toprol Xl (Metoprolol Succinate) 50 Mg Tab.er.24h 1 Tab PO DAILY Vitals/I & O Vital Sign - Last 24 Hours 11/08/19 11/08/19 11/08/19 11/08/19 07:59 08:00 11:04 11:04 Temp 98.2 98.1 98.2 98.1 Pulse 85 85 89 Resp 18 18 B/P (MAP) 114/73 (87) 114/73 108/67 (81) Pulse Ox 95 97 O2 Delivery Room Air Room Air Room Air 11/08/19 11/08/19 11/08/19 11/08/19 15:51 19:00 19:20 19:58 Temp 98.3 98.2 98.3 98.2 Pulse 85 71 71 Resp 18 20 B/P (MAP) 125/70 (88) 92/68 (76) 92/68 Pulse Ox 97 92 O2 Delivery Room Air Room Air Room Air 11/08/19 11/08/19 11/09/19 11/09/19 19:58 23:01 03:01 07:26 Temp 98.4 97.6 98.6 98.4 97.6 98.6 Pulse 71 57 78 80 Resp 20 20 18 B/P (MAP) 92/68 118/50 (72) 118/70 (86) 117/76 (90) Pulse Ox 95 92 96 O2 Delivery Room Air Room Air Room Air Intake and Output 11/08/19 11/08/19 11/09/19 15:00 23:00 07:00 Intake Total 520 ml 150 ml Output Total 1800 ml 1200 ml Balance 520 ml -1650 ml -1200 ml MANDY COOMBS MD November 09, 2019 07:49
[2019-11-09] MEDS: POTASSIUM CHLORIDE 20 MEQ TABLET.ER. PO SCH (08:32)
[2019-11-09] MEDS: POTASSIUM CHLORIDE 10MEQ 100 ML IV SCH ×2 (08:32→14:15)
[2019-11-09] MEDS: CEFEPIME HCL IV Push 2 GM VIAL. IVP SCH ×2 (08:33→20:40)
[2019-11-09] MEDS: ASCORBIC ACID 500 MG TABLET PO SCH (08:34)
[2019-11-09] MEDS: SENNOSIDES 8.6 MG TABLET PO SCH ×2 (08:34→20:40)
[2019-11-09] MEDS: LACTOBACILLUS RHAMNOSUS GG 1 CAPSULE. PO SCH ×2 (08:34→20:40)
[2019-11-09] MEDS: APIXABAN 5 MG TABLET. PO SCH ×2 (08:35→20:41)
[2019-11-09] MEDS: hydroCHLOROthiazide 25 MG TABLET PO SCH (08:35)
[2019-11-09] MEDS: OXYBUTYNIN CHLORIDE 5 MG TABLET PO SCH ×2 (08:35→20:41)
[2019-11-09] MEDS: METOPROLOL SUCC 24HR ER 50 MG TAB.ER.24H. PO SCH (08:35)
[2019-11-09] MEDS: SPIRONOLACTONE 25 MG TABLET PO SCH (08:35)
[2019-11-09] MEDS: MULTIVITAMIN with MINERAL TABLET. PO SCH (08:36)
[2019-11-09] MEDS: GABAPENTIN 300 MG CAPSULE. PO SCH ×3 (08:36→20:41)
[2019-11-09] MEDS: POLYETHYLENE GLYCOL 3350 17 GM PACKET. PO SCH (08:36)
[2019-11-09] MEDS: FUROSEMIDE 40 MG TABLET. PO SCH (08:36)
[2019-11-09] MEDS: FLUTICASONE 50MCG/NASAL SPRAY 16GM BOTTLE. NS SCH (08:37)
--- NOTE | 2019-11-09 09:31 | PDOC ---
Infectious Disease Note Subjective Subjective Feeling alright Slept well Denies F/C/S/pain/N/V/SOA ROS ROS as mentioned above Vital Sign Vital Signs Vital Signs Date Time Temp Pulse Resp B/P (MAP) Pulse Ox O2 Delivery O2 Flow Rate FiO2 11/09/19 08:35 80 117/76 11/09/19 07:26 98.6 18 96 Room Air 98.6 Physical Exam PHYSICAL EXAM GENERAL: Propped up in bed, alert, smiling HEENT: Seborrheic keratosis present. Oral cavity clear NECK: Supple, no JVD. LUNGS: Clear bilaterally. No wheezing. HEART: S1, S2. No gallops or murmurs. ABDOMEN: Obese, soft, + ostomy without signs of complications : Parker in place EXTREMITIES: Trace edema, no cyanosis. SKIN: Gluteal pressure ulcers (pics reviewed), right heel wound vac in place NEUROLOGIC: Alert, oriented x 3, paraplegia PIV ok Labs Lab Laboratory Tests Test 11/09/19 04:04 White Blood Count 9.8 x10^3/uL (4.0-11.0) Red Blood Count 3.97 x10^6/uL (4.30-5.70) Hemoglobin 12.0 g/dL (13.0-17.5) Hematocrit 34.8 % (39.0-53.0) Mean Corpuscular Volume 88 fL (79-100) Mean Corpuscular Hemoglobin 30 pg (25-35) Mean Corpuscular Hemoglobin Concent 35 g/dL (31-37) Red Cell Distribution Width 13.9 % (11.5-14.5) Platelet Count 283 x10^3/uL (140-400) Neutrophils (%) (Auto) 62 % (31-73) Lymphocytes (%) (Auto) 22 % (24-48) Monocytes (%) (Auto) 8 % (0-9) Eosinophils (%) (Auto) 7 % (0-3) Basophils (%) (Auto) 1 % (0-3) Neutrophils # (Auto) 6.1 x10^3/uL (1.8-7.7) Lymphocytes # (Auto) 2.2 x10^3/uL (1.0-4.8) Monocytes # (Auto) 0.8 x10^3/uL (0.0-1.1) Eosinophils # (Auto) 0.7 x10^3/uL (0.0-0.7) Basophils # (Auto) 0.1 x10^3/uL (0.0-0.2) Sodium Level 140 mmol/L (136-145) Potassium Level 3.3 mmol/L (3.5-5.1) Chloride Level 103 mmol/L (98-107) Carbon Dioxide Level 25 mmol/L (21-32) Anion Gap 12 (6-14) Blood Urea Nitrogen 36 mg/dL (8-26) Creatinine 0.9 mg/dL (0.7-1.3) Estimated GFR (Cockcroft-Gault) 84.4 BUN/Creatinine Ratio 40 (6-20) Glucose Level 113 mg/dL (70-99) Calcium Level 8.3 mg/dL (8.5-10.1) Magnesium Level 2.0 mg/dL (1.8-2.4) Total Bilirubin 0.3 mg/dL (0.2-1.0) Aspartate Amino Transf (AST/SGOT) 30 U/L (15-37) Alanine Aminotransferase (ALT/SGPT) 63 U/L (16-63) Alkaline Phosphatase 109 U/L (46-116) Total Protein 6.6 g/dL (6.4-8.2) Albumin 2.7 g/dL (3.4-5.0) Albumin/Globulin Ratio 0.7 (1.0-1.7) Micro GRAM STAIN Final Final GRAM NEGATIVE RODS:MANY GRAM POSITIVE COCCI:FEW AEROBIC CULTURE Final Final MIXED AEROBIC DIMA on 11/07/19 at 1215 INCLUDING: MODERATE [GRAM NEGATIVE RODS] X 2 MODERATE Mixed skin dima isolated GRAM NEGATIVE RODS Objective Assessment Klebsiella variicola urinary tract infection, 11/01 Neurogenic bladder status post self-catheterization. Fever likely secondary to Klebsiella variicola urinary tract infection.Resolved Right heel wound, status post debridement by wound team, has deep wound, - 11/03. swab cultures mixed dima and GNR x 2. Awaiting ID results Nausea and vomiting, resolved. Transverse myelitis with paraplegia. History of Clostridium difficile colitis. History of multiple decubitus wounds, stable. History of pulmonary embolism. Abnormal liver function tests. History of ALLERGIES TO CEPHALEXIN with rash, has tolerated ceftriaxone and cefepime . COVID-19 negative. Plan Plan of Care Empiric Dapto, cefepime and Flagyl CK 22 Probiotic d/w [facility] this morning, GNR ID/suspectibilites work-up requested Wound /vac care as directed D/w nursing Attending Co-Sign The patient was seen and interviewed as well as examined at the bedside. The chart was reviewed. The case was discussed. Agree with the plan of care. BEATRICE RO APRN November 09, 2019 09:31 STEVENSON OLSON MD November 09, 2019 12:02
[2019-11-09 11:36] VITALS: BP 135/81
[2019-11-09] MEDS: DAPTOmycin (GENERIC) IVPB 560 MG in IV NORMAL SALINE 50ML 50 ML IV SCH (14:15)
[2019-11-09 15:59] VITALS: BP 126/66
[2019-11-09 19:00] VITALS: BP 106/76
[2019-11-09] MEDS: ATORVASTATIN CALCIUM 40 MG TABLET. PO SCH (20:41)
[2019-11-09] MEDS: LOSARTAN POTASSIUM 50 MG TABLET. PO SCH (20:41)
[2019-11-09] MEDS: amLODIPine BESYLATE 10 MG TABLET PO SCH (20:41)
[2019-11-09 23:00] VITALS: BP 122/69
--- NOTE | 2019-11-10 | NUR ---
Pt. requesting not to be woken up to turn while sleeping. Pt. notified of consequences of not turning q2h. Verbalized understanding.
[2019-11-10 03:00] VITALS: BP 100/73
[2019-11-10 07:00] VITALS: BP 120/62
--- NOTE | 2019-11-10 07:52 | NUR ---
Wound Care Pt's home vac has been approved through [facility], when ready for d/c home.
[2019-11-10] MEDS: hydroCHLOROthiazide 25 MG TABLET PO SCH (08:08)
[2019-11-10] MEDS: POTASSIUM CHLORIDE 20 MEQ TABLET.ER. PO SCH (08:11)
[2019-11-10] MEDS: GABAPENTIN 300 MG CAPSULE. PO SCH ×2 (08:12→14:20)
[2019-11-10] MEDS: ASCORBIC ACID 500 MG TABLET PO SCH (08:12)
[2019-11-10] MEDS: METOPROLOL SUCC 24HR ER 50 MG TAB.ER.24H. PO SCH (08:12)
[2019-11-10] MEDS: LACTOBACILLUS RHAMNOSUS GG 1 CAPSULE. PO SCH (08:15)
[2019-11-10] MEDS: CEFEPIME HCL IV Push 2 GM VIAL. IVP SCH (08:15)
[2019-11-10] MEDS: SENNOSIDES 8.6 MG TABLET PO SCH (08:15)
[2019-11-10] MEDS: APIXABAN 5 MG TABLET. PO SCH (08:15)
[2019-11-10] MEDS: MULTIVITAMIN with MINERAL TABLET. PO SCH (08:15)
[2019-11-10] MEDS: OXYBUTYNIN CHLORIDE 5 MG TABLET PO SCH (08:16)
[2019-11-10] MEDS: POLYETHYLENE GLYCOL 3350 17 GM PACKET. PO SCH (08:16)
[2019-11-10] MEDS: SPIRONOLACTONE 25 MG TABLET PO SCH (08:18)
[2019-11-10] MEDS: FLUTICASONE 50MCG/NASAL SPRAY 16GM BOTTLE. NS SCH (08:18)
[2019-11-10] MEDS: FUROSEMIDE 40 MG TABLET. PO SCH (08:24)
--- NOTE | 2019-11-10 09:11 | PDOC ---
Infectious Disease Note Subjective Subjective Feeling alright Slept well Denies F/C/S/pain/N/V/SOA Vital Sign Vital Signs Vital Signs Date Time Temp Pulse Resp B/P (MAP) Pulse Ox O2 Delivery O2 Flow Rate FiO2 11/10/19 08:12 62 120/62 11/10/19 07:00 98.3 18 96 Room Air 98.3 Physical Exam PHYSICAL EXAM GENERAL: Propped up in bed, alert, smiling HEENT: Seborrheic keratosis present. Oral cavity clear NECK: Supple, no JVD. LUNGS: Clear bilaterally. No wheezing. HEART: S1, S2. No gallops or murmurs. ABDOMEN: Obese, soft, + ostomy without signs of complications : Parker in place EXTREMITIES: Trace edema, no cyanosis. SKIN: Gluteal pressure ulcers (pics reviewed), right heel wound vac in place ,, wound is clean, deep almost to bone, though not palpable NEUROLOGIC: Alert, oriented x 3, paraplegia PIV ok Labs Micro Microbiology 11/04/19 Gram Stain - Final, Complete 11/04/19 Aerobic Culture - Final, Complete 11/03/19 Blood Culture - Final, Complete NO GROWTH AFTER 5 DAYS 11/02/19 Urine Culture - Final, Complete 11/02/19 Antimicrobic Susceptibility - Final, Complete Objective Assessment Klebsiella variicola urinary tract infection, 11/01 Neurogenic bladder status post self-catheterization. Fever likely secondary to Klebsiella variicola urinary tract infection.Resolved Right heel wound, status post debridement by wound team, has deep wound, - 11/03. swab cultures mixed dima and GNR x 2. Awaiting ID results Nausea and vomiting, resolved. Transverse myelitis with paraplegia. History of Clostridium difficile colitis. History of multiple decubitus wounds, stable. History of pulmonary embolism. Abnormal liver function tests. History of ALLERGIES TO CEPHALEXIN with rash, has tolerated ceftriaxone and cefepime . COVID-19 negative. Plan Plan of Care will change antibiotics to po doxy and augmentin d/w pt , MRI neg for osteo, he feels comfortable, he will f/u with wound care, if worse then iv antibiotics, off load D/w nursing STEVENSON OLSON MD Nov 10, 2019 09:11
[2019-11-10 11:00] VITALS: BP 124/59
--- NOTE | 2019-11-10 11:12 | PDOC ---
PROGRESS NOTES Chief Complaint Chief Complaint DISCHARGE DX UTI - started on empiric zosyn. Will f/u culture results Multiple nonhealing pressure wounds involving sacrococcygeal, left ischium and b ilateral heels with necrotic tissue and malodor Right heel wound - wound care to see, debrided S/p diverting colostomy - 04/10/2019 Sepsis - likely 2/2 UTI, less likely to be coccygeal wound. 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 FEN - General diet PPX - eliquis FULL CODE Dispo - inpatient 2 midnight will change antibiotics to po doxy and augmentin right heel wound vac in place ,, wound is clean, deep almost to bone, though not palpable D/C PLANNING 34 MIN History of Present Illness History of Present Illness Mr Rust is a 64-year-old male with PMHx recent PE, transverse myelitis with paraplegia, neurogenic bladder, and multiple pressure wounds, who was admitted through ED c/o fever, body aches and just feeling terrible. He does have wounds on his coccyx which she is being treated for by wound care. He does self cath every 6 hours, but has been doing this less often due to weakness. He denies any upper respiratory symptoms such as cough or congestion and states he had a negative COVID test a few days prior to admission. He notes he had to do this at [facility] prior to his angiogram last week. Fever 101.7F in ED, WBC 7.2, lactate 2.1. [Was seen in wound clinic on 03/13 and directly admitted to [facility]. He also has recurrent Clostridium difficile infection (07/2018 and 11/2018) still on a taper of oral vancomycin and h/o e. coli UTI (self-caths up to 6 times daily). Transferred to [facility] and underwent diverting colostomy on 04/10/2019. He was discharged to [facility] and has been home since 08/23/2019]. 11/03: COVID 19 negative. Afebrile overnight. Urine culture reported as klebsiella variicola. Overall he notes his has been sterile with his catheterizations during the day, but they have been struggling with this being at least his 4th UTI this year. He is asking for a Urology opinion. 11/04: Heel wound debrided and redressed. Afebrile. ID consulted. He is feeling improved. Culture sensitivities pending. No CP or SOB 11/05: Afebrile overnight. Klebsiella pansensitive. Heel wound with gram- negative rods culture pending. He feels well no CP or SOB 11/06: Overnight afebrile. Wound care debrided right foot and noted palpable bone in wound. Discussed with ID this is possible source will need an MRI to rule out osteomyelitis, will check vascular studies. No CP or S OB. Patient without complaints. Now has wound VAC in place 11/07: Afebrile overnight. MRI right foot negative for osteomyelitis. Arterial Doppler right leg negative for vascular compromise. Inflammatory markers elevated CRP and ESR. Foot culture with GNR. Afebrile overnight. K3.3. He has no complaints. Slept well. Foot culture sensitivities pending, ID has requested them from [place]. Vitals Vitals Vital Signs Date Time Temp Pulse Resp B/P (MAP) Pulse Ox O2 Delivery O2 Flow Rate FiO2 11/10/19 08:12 62 120/62 11/10/19 07:00 98.3 18 96 Room Air 98.3 Physical Exam Physical Exam GENERAL: Propped up in bed, alert, smiling HEENT: Seborrheic keratosis present. Oral cavity clear NECK: Supple, no JVD. LUNGS: Clear bilaterally. No wheezing. HEART: S1, S2. No gallops or murmurs. ABDOMEN: Obese, soft, + ostomy without signs of complications : Parker in place EXTREMITIES: Trace edema, no cyanosis. SKIN: Gluteal pressure ulcers (pics reviewed), right heel wound vac in place ,, wound is clean, deep almost to bone, though not palpable NEUROLOGIC: Alert, oriented x 3, paraplegia PIV ok General: Alert, Oriented X3, Cooperative, No acute distress Heart: Regular rate Lungs: Clear Abdomen: Soft Extremities: No clubbing, No cyanosis, Other (Previous LORRAINE several months ago was 1.1) Skin: Other (Right heel demonstrates stage IV pressure ulcer down to periosteum following debridement. Recent demonstration of pus and now loss of heel fat pad at the site of infection. Ulcer size is 0.9 cm x 1 cm x 1.8 cm with undermining as large as 1.1 cm particularly at 10:00 on the ulcer.) Assessment and Plan Assessmemt and Plan Problems Medical Problems: (1) Fever Status: Acute (2) Person under investigation for COVID-19 Status: Acute Comment Review of Relevant I have reviewed the following items franc (where applicable) has been applied. Labs Laboratory Tests Test 11/09/19 04:04 White Blood Count 9.8 x10^3/uL (4.0-11.0) Red Blood Count 3.97 x10^6/uL (4.30-5.70) Hemoglobin 12.0 g/dL (13.0-17.5) Hematocrit 34.8 % (39.0-53.0) Mean Corpuscular Volume 88 fL (79-100) Mean Corpuscular Hemoglobin 30 pg (25-35) Mean Corpuscular Hemoglobin Concent 35 g/dL (31-37) Red Cell Distribution Width 13.9 % (11.5-14.5) Platelet Count 283 x10^3/uL (140-400) Neutrophils (%) (Auto) 62 % (31-73) Lymphocytes (%) (Auto) 22 % (24-48) Monocytes (%) (Auto) 8 % (0-9) Eosinophils (%) (Auto) 7 % (0-3) Basophils (%) (Auto) 1 % (0-3) Neutrophils # (Auto) 6.1 x10^3/uL (1.8-7.7) Lymphocytes # (Auto) 2.2 x10^3/uL (1.0-4.8) Monocytes # (Auto) 0.8 x10^3/uL (0.0-1.1) Eosinophils # (Auto) 0.7 x10^3/uL (0.0-0.7) Basophils # (Auto) 0.1 x10^3/uL (0.0-0.2) Sodium Level 140 mmol/L (136-145) Potassium Level 3.3 mmol/L (3.5-5.1) Chloride Level 103 mmol/L (98-107) Carbon Dioxide Level 25 mmol/L (21-32) Anion Gap 12 (6-14) Blood Urea Nitrogen 36 mg/dL (8-26) Creatinine 0.9 mg/dL (0.7-1.3) Estimated GFR (Cockcroft-Gault) 84.4 BUN/Creatinine Ratio 40 (6-20) Glucose Level 113 mg/dL (70-99) Calcium Level 8.3 mg/dL (8.5-10.1) Magnesium Level 2.0 mg/dL (1.8-2.4) Total Bilirubin 0.3 mg/dL (0.2-1.0) Aspartate Amino Transf (AST/SGOT) 30 U/L (15-37) Alanine Aminotransferase (ALT/SGPT) 63 U/L (16-63) Alkaline Phosphatase 109 U/L (46-116) Total Protein 6.6 g/dL (6.4-8.2) Albumin 2.7 g/dL (3.4-5.0) Albumin/Globulin Ratio 0.7 (1.0-1.7) Microbiology 11/04/19 Gram Stain - Final, Complete 11/04/19 Aerobic Culture - Final, Complete 11/03/19 Blood Culture - Final, Complete NO GROWTH AFTER 5 DAYS 11/02/19 Urine Culture - Final, Complete 11/02/19 Antimicrobic Susceptibility - Final, Complete Medications Current Medications Piperacillin Sod/ Tazobactam Sod 3.375 gm/Sodium Chloride 50 ml @ 100 mls/hr 1X ONCE IV Last administered on 11/02/19at 15:43; Start 11/02/19 at 15:30; Stop 11/02/19 at 15:59; Status DC Sodium Chloride 1,000 ml @ 1,000 mls/hr 1X ONCE IV Last administered on 11/02/19at 16:18; Start 11/02/19 at 16:15; Stop 11/02/19 at 17:14; Status DC Ondansetron HCl (Zofran) 4 mg PRN Q8HRS PRN IV NAUSEA/VOMITING Last a dministered on 11/02/19at 23:05; Start 11/02/19 at 16:15; Stop 11/03/19 at 08:54; Status DC Sodium Chloride 1,000 ml @ 150 mls/hr Q6H40M IV Last administered on 11/03/19at 15:29; Start 11/02/19 at 16:05; Stop 11/03/19 at 16:04; Status DC Acetaminophen (Tylenol) 650 mg PRN Q4HRS PRN PO FEVER > 100.3'F Last administered on 11/03/19at 20:14; Start 11/02/19 at 16:15 Oxycodone/ Acetaminophen (Percocet 5/325) 2 tab 1X ONCE PO Last administered on 11/02/19at 17:44; Start 11/02/19 at 17:15; Stop 11/02/19 at 17:16; Status DC Apixaban (Eliquis) 5 mg BID PO Last administered on 11/10/19 08:15; Start 11/03/19 at 09:00 Fluticasone Propionate (Flonase) 2 spray DAILY NS Last administered on 11/10/19 08:18; Start 11/03/19 at 09:00 Furosemide (Lasix) 40 mg DAILY PO Last administered on 11/10/19at 08:24; Start 11/03/19 at 09:00 Gabapentin (Neurontin) 300 mg TID PO Last administered on 11/10/19 08:12; Start 11/03/19 at 09:00 Hydrochlorothiazide (Hydrodiuril) 25 mg DAILY PO Last administered on 11/10/19at 08:08; Start 11/03/19 at 09:00 Oxybutynin Chloride (Ditropan) 5 mg BID PO Last administered on 11/10/19at 08:16; Start 11/03/19 at 09:00 Oxycodone/ Acetaminophen (Percocet 5/325) 1 tab PRN Q4HRS PRN PO MODERATE- SEVERE PAIN; Start 11/02/19 at 21:30 Polyethylene Glycol (miraLAX PACKET) 17 gm DAILY PO Last administered on 11/10/19 08:16; Start 11/03/19 at 09:00 Sennosides (Senna) 8.6 mg BID PO Last administered on 11/10/19 08:15; Start 11/03/19 at 09:00 Spironolactone (Aldactone) 25 mg DAILY PO Last administered on 11/10/19 08:18; Start 11/03/19 at 09:00 Amlodipine Besylate (Norvasc) 10 mg QHS PO Last administered on 11/09/19 20:41; Start 11/03/19 at 21:00 Lactobacillus Rhamnosus (Culturelle) 1 cap BID PO Last administered on 11/10/19 08:15; Start 11/03/19 at 09:00 Metoprolol Succinate (Toprol Xl) 50 mg DAILY PO Last administered on 11/10/19 08:12; Start 11/03/19 at 09:00 Atorvastatin Calcium (Lipitor) 40 mg QHS PO Last administered on 11/09/19 20:41; Start 11/03/19 at 21:00 Info (Anti-Coagulation Monitoring By Pharmacy) 1 each PRN DAILY PRN MC SEE COMMENTS Last administered on 11/04/19at 14:37; Start 11/02/19 at 22:00 Losartan Potassium (Cozaar) 100 mg QHS PO Last administered on 11/09/19 20:41; Start 11/03/19 at 21:00 Piperacillin Sod/ Tazobactam Sod 3.375 gm/Sodium Chloride 50 ml @ 100 mls/hr Q6HRS IV Last administered on 11/05/19 06:02; Start 11/03/19 at 00:00; Stop 11/05/19 at 10:46; Status DC Ondansetron HCl (Zofran) 4 mg PRN Q4HRS PRN IV NAUSEA/VOMITING; Start 11/03/19 at 09:00 Multivitamins (Thera M Plus) 1 tab DAILY PO Last administered on 11/10/19 08:15; Start 11/04/19 at 11:00 Ascorbic Acid (Vitamin C) 500 mg DAILY PO Last administered on 11/10/19 08:12; Start 11/04/19 at 11:00 Ceftriaxone Sodium (Rocephin) 2 gm Q24H IVP Last administered on 11/06/19at 1 2:29; Start 11/05/19 at 11:00; Stop 11/07/19 at 11:01; Status DC Doxycycline Hyclate (Vibra-Tab) 100 mg BID PO Last administered on 11/07/19 09:09; Start 11/06/19 at 11:00; Stop 11/07/19 at 11:01; Status DC Cefepime HCl (Maxipime) 2 gm Q12HR IVP Last administered on 11/10/19at 08:15; Start 11/07/19 at 12:00; Stop 11/10/19 at 09:13; Status DC Metronidazole 100 ml @ 100 mls/hr Q12HR IV Last administered on 11/10/19at 08:18; Start 11/07/19 at 12:00; Stop 11/10/19 at 09:13; Status DC Daptomycin 560 mg/ Sodium Chloride 50 ml @ 100 mls/hr Q24H IV Last administered on 11/09/19at 14:15; Start 11/07/19 at 12:00; Stop 11/10/19 at 09:13; Status DC Gadoterate Meglumine (Dotarem) 10 ml 1X ONCE IVP Last administered on 11/07/19at 14:25; Start 11/07/19 at 14:15; Stop 11/07/19 at 14:16; Status DC Gadoterate Meglumine (Dotarem) 10 ml 1X ONCE IVP Last administered on 11/07/19at 14:25; Start 11/07/19 at 14:15; Stop 11/07/19 at 14:16; Status DC Potassium Chloride (Klor-Con) 20 meq DAILYWBKFT PO Last administered on at 08:11; Start 11/09/19 at 08:00 Potassium Chloride (Klor-Con) 20 meq 1X ONCE PO Last administered on 11/09/19at 08:32; Start 11/09/19 at 07:45; Stop 11/09/19 at 07:56; Status DC Potassium Chloride/Water 100 ml @ 100 mls/hr Q1H IV Last administered on 11/09/19at 14:15; Start 11/09/19 at 08:00; Stop 11/09/19 at 09:59; Status DC Doxycycline Hyclate (Vibra-Tab) 100 mg BID PO ; Start 11/10/19 at 21:00 Amoxicillin/ Clavulanate Potassium (Augmentin 875/ 125mg) 1 tab BID PO ; Start 11/10/19 at 21:00 Active Scripts Active Percocet 5-325 Mg Tablet (Oxycodone/Acetaminophen) 1 Each Tablet 1 Tab PO PRN Q4HRS PRN Reported Miralax (Polyethylene Glycol 3350) 17 Gm Powd.pack 1 Pkt PO DAILY Senokot (Sennosides) 8.6 Mg Tablet 8.6 Mg PO BID Hydrochlorothiazide Tablet (Hydrochlorothiazide) 25 Mg Tablet 25 Mg PO DAILY Crestor (Rosuvastatin Calcium) 5 Mg Tablet 10 Mg PO HS Amlodipine-Valsartan 10-320 mg (Amlodipine/Valsartan) 1 Each Tablet 1 Each PO HS Oxybutynin Chloride 5 Mg Tablet 5 Mg PO BID Spironolactone 25 Mg Tablet 25 Mg PO DAILY Furosemide 40 Mg Tablet 40 Mg PO DAILY Eliquis (Apixaban) 5 Mg Tablet 5 Mg PO BID Fluticasone Propionate Nasal [place] (Fluticasone Propionate) 16 Gm [place].susp 2 [place] NS DAILY Superior Digestive Enzyme (Digestive Enzymes Combo No.7) 1 Each Capsule 1 Each PO BID Gabapentin (Gabapentin) 300 Mg Capsule 300 Mg PO TID Toprol Xl (Metoprolol Succinate) 50 Mg Tab.er.24h 1 Tab PO DAILY Vitals/I & O Vital Sign - Last 24 Hours 11/09/19 11/09/19 11/09/19 11/09/19 11:36 15:59 19:00 19:05 Temp 98.6 97.5 97.9 98.6 97.5 97.9 Pulse 74 60 75 Resp 20 20 18 B/P (MAP) 135/81 (99) 126/66 (86) 106/76 (86) Pulse Ox 97 99 97 O2 Delivery Room Air Room Air Room Air Room Air 11/09/19 11/09/19 11/09/19 11/10/19 20:41 20:41 23:00 03:00 Temp 98.1 98.2 98.1 98.2 Pulse 75 75 74 74 Resp 18 20 B/P (MAP) 106/76 106/76 122/69 (86) 100/73 (82) Pulse Ox 93 95 O2 Delivery Room Air Room Air 11/10/19 11/10/19 07:00 08:12 Temp 98.3 98.3 Pulse 62 62 Resp 18 B/P (MAP) 120/62 (81) 120/62 Pulse Ox 96 O2 Delivery Room Air Intake and Output 11/09/19 11/09/19 11/10/19 15:00 23:00 07:00 Intake Total 400 ml 650 ml 200 ml Output Total 1450 ml 2100 ml Balance 400 ml -800 ml -1900 ml RYLIE ARVIZU MD Nov 10, 2019 11:12
--- NOTE | 2019-11-10 12:15 | NUR ---
IRENE following. Discussed with RNFelipe (wound care), Dr. Zhang and Dr. Ocampo. Pt does not need Iv abx at discharge, just wound vac, and home health. IRENE met with pt (no isolation precautions at the time), pt reported he is current with [facility] and would like to continue with them. IRENE phoned and faxed clinicals to [facility] (ph: [phone], fax: [phone]). Wound care will put home wound vac on pt this afternoon, Dr. Ocampo will enter discharge orders. IRENE will continue to follow. Addendum: 11/10/19 at 1556 by MAGNOLIA BONILLA IRENE faxed discharge orders to [facility]. Pt discharging home today. BRITTANEY notified.
[2019-11-10 15:00] VITALS: BP 192/70
--- NOTE | 2019-11-10 15:28 | NUR ---
Wound Care Wound Type/Assessment: Left Ischium healing Stage III pressure ulcer has healed, calazime cream applied. Left posterior thigh does not have an open wound, area is along incision line, and appears to be hypertrophic scarring, not a blister. Coccyx and right ischial wounds are healed. Treatment Recommendations/Plan: Turn Q2 hours to L & R sides, float heels, continue wound vac at home until depth resolves. Education provided: to pt re: wounds, wound vac, wound clinic f/u and POC. Offloading surface/device: P500 bed, wedge, pillows Recommended Referrals/Tests: N/A Discharge Recommendations for dressings: wound vac to R heel wound, f/u in [facility] after d/c.
--- NOTE | 2019-11-10 15:38 | PDOC3 ---
Discharge Summary Date of Admission: November 02, 2019 Date of Discharge: Dec 10, 2019 Follow-Up: 1-2 days Admitting Diagnosis comment: DISCHARGE DX UTI - started on empiric zosyn. Will f/u culture results Multiple nonhealing pressure wounds involving sacrococcygeal, left ischium and bilateral heels with necrotic tissue and malodor Right heel wound - wound care to see, debrided S/p diverting colostomy - 04/10/2019 Sepsis - likely 2/2 UTI, less likely to be coccygeal wound. 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 FEN - General diet PPX - eliquis FULL CODE Dispo - inpatient 2 midnight will change antibiotics to po doxy and augmentin right heel wound vac in place ,, wound is clean, deep almost to bone, though not palpable HOME HEALTH ARRANGED D/C PLANNING 34 MIN History of Present Illness History of Present Illness Mr Rust is a 64-year-old male with PMHx recent PE, transverse myelitis with paraplegia, neurogenic bladder, and multiple pressure wounds, who was admitted through ED c/o fever, body aches and just feeling terrible. He does have wounds on his coccyx which she is being treated for by wound care. He does self cath every 6 hours, but has been doing this less often due to weakness. He denies any upper respiratory symptoms such as cough or congestion and states he had a negative COVID test a few days prior to admission. He notes he had to do this at [facility] prior to his angiogram last week. Fever 101.7F in ED, WBC 7.2, lactate 2.1. [Was seen in wound clinic on 03/13 and directly admitted to [facility]. He also has recurrent Clostridium difficile infection (07/2018 and 11/2018) still on a taper of oral vancomycin and h/o e. coli UTI (self-caths up to 6 times daily). Transferred to [facility] and underwent diverting colostomy on 04/10/2019. He was discharged to [facility] and has been home since 08/23/2019]. 11/03: COVID 19 negative. Afebrile overnight. Urine culture reported as klebsiella variicola. Overall he notes his has been sterile with his catheterizations during the day, but they have been struggling with this being at least his 4th UTI this year. He is asking for a Urology opinion. 11/04: Heel wound debrided and redressed. Afebrile. ID consulted. He is feeling improved. Culture sensitivities pending. No CP or SOB 11/05: Afebrile overnight. Klebsiella pansensitive. Heel wound with gram- negative rods culture pending. He feels well no CP or SOB 11/06: Overnight afebrile. Wound care debrided right foot and noted palpable bone in wound. Discussed with ID this is possible source will need an MRI to rule out osteomyelitis, will check vascular studies. No CP or S OB. Patient without complaints. Now has wound VAC in place 11/07: Afebrile overnight. MRI right foot negative for osteomyelitis. Arterial Doppler right leg negative for vascular compromise. Inflammatory markers elevated CRP and ESR. Foot culture with GNR. Afebrile overnight. K3.3. He has no complaints. Slept well. Foot culture sensitivities pending, ID has requested them from [place]. Vitals Vitals Vital Signs Date Time Temp Pulse Resp B/P (MAP) Pulse Ox O2 Delivery O2 Flow Rate FiO2 11/10/19 08:12 62 120/62 11/10/19 07:00 98.3 18 96 Room Air 98.3 Physical Exam Physical Exam GENERAL: Propped up in bed, alert, smiling HEENT: Seborrheic keratosis present. Oral cavity clear NECK: Supple, no JVD. LUNGS: Clear bilaterally. No wheezing. HEART: S1, S2. No gallops or murmurs. ABDOMEN: Obese, soft, + ostomy without signs of complications : Parker in place EXTREMITIES: Trace edema, no cyanosis. SKIN: Gluteal pressure ulcers (pics reviewed), right heel wound vac in place ,, wound is clean, deep almost to bone, though not palpable NEUROLOGIC: Alert, oriented x 3, paraplegia PIV ok General: Alert, Oriented X3, Cooperative, No acute distress Heart: Regular rate Lungs: Clear Abdomen: Soft Extremities: No clubbing, No cyanosis, Other (Previous LORRAINE several months ago was 1.1) Skin: Other (Right heel demonstrates stage IV pressure ulcer down to periosteum following debridement. Recent demonstration of pus and now loss of heel fat pad at the site of infection. Ulcer size is 0.9 cm x 1 cm x 1.8 cm with undermining as large as 1.1 cm particularly at 10:00 on the ulcer.) FINAL DIAGNOSIS Problems Medical Problems: (1) Fever Status: Acute (2) Person under investigation for COVID-19 Status: Acute Brief Hospital Course Mr. Rust is a 64 old [sex] who presented with [ MULTIPLE PRESSURE WOUNDS] CONDITION AT DISCHARGE: Improved Discharge Medications Current Medications Piperacillin Sod/ Tazobactam Sod 3.375 gm/Sodium Chloride 50 ml @ 100 mls/hr 1X ONCE IV Last administered on 11/02/19at 15:43; Start 11/02/19 at 15:30; Stop 11/02/19 at 15:59; Status DC Sodium Chloride 1,000 ml @ 1,000 mls/hr 1X ONCE IV Last administered on 11/02/19at 16:18; Start 11/02/19 at 16:15; Stop 11/02/19 at 17:14; Status DC Ondansetron HCl (Zofran) 4 mg PRN Q8HRS PRN IV NAUSEA/VOMITING Last administered on 11/02/19at 23:05; Start 11/02/19 at 16:15; Stop 11/03/19 at 08:54; Status DC Sodium Chloride 1,000 ml @ 150 mls/hr Q6H40M IV Last administered on 11/03/19at 15:29; Start 11/02/19 at 16:05; Stop 11/03/19 at 16:04; Status DC Acetaminophen (Tylenol) 650 mg PRN Q4HRS PRN PO FEVER > 100.3'F Last administ ered on 11/03/19at 20:14; Start 11/02/19 at 16:15 Oxycodone/ Acetaminophen (Percocet 5/325) 2 tab 1X ONCE PO Last administered on 11/02/19at 17:44; Start 11/02/19 at 17:15; Stop 11/02/19 at 17:16; Status DC Apixaban (Eliquis) 5 mg BID PO Last administered on 11/10/19 08:15; Start 11/03/19 at 09:00 Fluticasone Propionate (Flonase) 2 spray DAILY NS Last administered on 11/10/19 08:18; Start 11/03/19 at 09:00 Furosemide (Lasix) 40 mg DAILY PO Last administered on 11/10/19 08:24; Start 11/03/19 at 09:00 Gabapentin (Neurontin) 300 mg TID PO Last administered on 11/10/19 14:20; Start 11/03/19 at 09:00 Hydrochlorothiazide (Hydrodiuril) 25 mg DAILY PO Last administered on 11/10/19 08:08; Start 11/03/19 at 09:00 Oxybutynin Chloride (Ditropan) 5 mg BID PO Last administered on 11/10/19 08:16; Start 11/03/19 at 09:00 Oxycodone/ Acetaminophen (Percocet 5/325) 1 tab PRN Q4HRS PRN PO MODERATE- SEVERE PAIN; Start 11/02/19 at 21:30 Polyethylene Glycol (miraLAX PACKET) 17 gm DAILY PO Last administered on 11/10/19 08:16; Start 11/03/19 at 09:00 Sennosides (Senna) 8.6 mg BID PO Last administered on 11/10/19 08:15; Start 11/03/19 at 09:00 Spironolactone (Aldactone) 25 mg DAILY PO Last administered on 11/10/19 08:18; Start 11/03/19 at 09:00 Amlodipine Besylate (Norvasc) 10 mg QHS PO Last administered on 11/09/19 20:41; Start 11/03/19 at 21:00 Lactobacillus Rhamnosus (Culturelle) 1 cap BID PO Last administered on 11/10/19 08:15; Start 11/03/19 at 09:00 Metoprolol Succinate (Toprol Xl) 50 mg DAILY PO Last administered on 11/10/19 08:12; Start 11/03/19 at 09:00 Atorvastatin Calcium (Lipitor) 40 mg QHS PO Last administered on 11/09/19 20:41; Start 11/03/19 at 21:00 Info (Anti-Coagulation Monitoring By Pharmacy) 1 each PRN DAILY PRN MC SEE COMMENTS Last administered on 11/04/19at 14:37; Start 11/02/19 at 22:00 Losartan Potassium (Cozaar) 100 mg QHS PO Last administered on 11/09/19at 20:41; Start 11/03/19 at 21:00 Piperacillin Sod/ Tazobactam Sod 3.375 gm/Sodium Chloride 50 ml @ 100 mls/hr Q6HRS IV Last administered on 11/05/19at 06:02; Start 11/03/19 at 00:00; Stop 11/05/19 at 10:46; Status DC Ondansetron HCl (Zofran) 4 mg PRN Q4HRS PRN IV NAUSEA/VOMITING; Start 11/03/19 at 09:00 Multivitamins (Thera M Plus) 1 tab DAILY PO Last administered on 11/10/19at 08:15; Start 11/04/19 at 11:00 Ascorbic Acid (Vitamin C) 500 mg DAILY PO Last administered on 11/10/19at 08:12; Start 11/04/19 at 11:00 Ceftriaxone Sodium (Rocephin) 2 gm Q24H IVP Last administered on 11/06/19at 12:29; Start 11/05/19 at 11:00; Stop 11/07/19 at 11:01; Status DC Doxycycline Hyclate (Vibra-Tab) 100 mg BID PO Last administered on 11/07/19at 09:09; Start 11/06/19 at 11:00; Stop 11/07/19 at 11:01; Status DC Cefepime HCl (Maxipime) 2 gm Q12HR IVP Last administered on 11/10/19 08:15; Start 11/07/19 at 12:00; Stop 11/10/19 at 09:13; Status DC Metronidazole 100 ml @ 100 mls/hr Q12HR IV Last administered on 11/10/19 08:18; Start 11/07/19 at 12:00; Stop 11/10/19 at 09:13; Status DC Daptomycin 560 mg/ Sodium Chloride 50 ml @ 100 mls/hr Q24H IV Last administered on 11/09/19at 14:15; Start 11/07/19 at 12:00; Stop 11/10/19 at 09:13; Status DC Gadoterate Meglumine (Dotarem) 10 ml 1X ONCE IVP Last administered on 11/07/19at 14:25; Start 11/07/19 at 14:15; Stop 11/07/19 at 14:16; Status DC Gadoterate Meglumine (Dotarem) 10 ml 1X ONCE IVP Last administered on 11/07/19at 14:25; Start 11/07/19 at 14:15; Stop 11/07/19 at 14:16; Status DC Potassium Chloride (Klor-Con) 20 meq DAILYWBKFT PO Last administered on 11/10/19at 08:11; Start 11/09/19 at 08:00 Potassium Chloride (Klor-Con) 20 meq 1X ONCE PO Last administered on 11/09/19at 08:32; Start 11/09/19 at 07:45; Stop 11/09/19 at 07:56; Status DC Potassium Chloride/Water 100 ml @ 100 mls/hr Q1H IV Last administered on 11/09/19at 14:15; Start 11/09/19 at 08:00; Stop 11/09/19 at 09:59; Status DC Doxycycline Hyclate (Vibra-Tab) 100 mg BID PO ; Start 11/10/19 at 21:00 Amoxicillin/ Clavulanate Potassium (Augmentin 875/ 125mg) 1 tab BID PO ; Start 11/10/19 at 21:00 Active Scripts Active Percocet 5-325 Mg Tablet (Oxycodone/Acetaminophen) 1 Each Tablet 1 Tab PO PRN Q4HRS PRN Reported Miralax (Polyethylene Glycol 3350) 17 Gm Powd.pack 1 Pkt PO DAILY Senokot (Sennosides) 8.6 Mg Tablet 8.6 Mg PO BID Hydrochlorothiazide Tablet (Hydrochlorothiazide) 25 Mg Tablet 25 Mg PO DAILY Crestor (Rosuvastatin Calcium) 5 Mg Tablet 10 Mg PO HS Amlodipine-Valsartan 10-320 mg (Amlodipine/Valsartan) 1 Each Tablet 1 Each PO HS Oxybutynin Chloride 5 Mg Tablet 5 Mg PO BID Spironolactone 25 Mg Tablet 25 Mg PO DAILY Furosemide 40 Mg Tablet 40 Mg PO DAILY Eliquis (Apixaban) 5 Mg Tablet 5 Mg PO BID Fluticasone Propionate Nasal Ch[place]ar (Fluticasone Propionate) 16 Gm Chualar.susp 2 Chualar NS DAILY Superior Digestive Enzyme (Digestive Enzymes Combo No.7) 1 Each Capsule 1 Each PO BID Gabapentin (Gabapentin) 300 Mg Capsule 300 Mg PO TID Toprol Xl (Metoprolol Succinate) 50 Mg Tab.er.24h 1 Tab PO DAILY Vital Signs Vital Signs Date Time Temp Pulse Resp B/P (MAP) Pulse Ox O2 Delivery O2 Flow Rate FiO2 11/10/19 15:00 98.3 91 18 192/70 (110) 93 Room Air 98.3 Labs Laboratory Tests Test 11/09/19 04:04 White Blood Count 9.8 x10^3/uL (4.0-11.0) Red Blood Count 3.97 x10^6/uL (4.30-5.70) Hemoglobin 12.0 g/dL (13.0-17.5) Hematocrit 34.8 % (39.0-53.0) Mean Corpuscular Volume 88 fL (79-100) Mean Corpuscular Hemoglobin 30 pg (25-35) Mean Corpuscular Hemoglobin Concent 35 g/dL (31-37) Red Cell Distribution Width 13.9 % (11.5-14.5) Platelet Count 283 x10^3/uL (140-400) Neutrophils (%) (Auto) 62 % (31-73) Lymphocytes (%) (Auto) 22 % (24-48) Monocytes (%) (Auto) 8 % (0-9) Eosinophils (%) (Auto) 7 % (0-3) Basophils (%) (Auto) 1 % (0-3) Neutrophils # (Auto) 6.1 x10^3/uL (1.8-7.7) Lymphocytes # (Auto) 2.2 x10^3/uL (1.0-4.8) Monocytes # (Auto) 0.8 x10^3/uL (0.0-1.1) Eosinophils # (Auto) 0.7 x10^3/uL (0.0-0.7) Basophils # (Auto) 0.1 x10^3/uL (0.0-0.2) Sodium Level 140 mmol/L (136-145) Potassium Level 3.3 mmol/L (3.5-5.1) Chloride Level 103 mmol/L (98-107) Carbon Dioxide Level 25 mmol/L (21-32) Anion Gap 12 (6-14) Blood Urea Nitrogen 36 mg/dL (8-26) Creatinine 0.9 mg/dL (0.7-1.3) Estimated GFR (Cockcroft-Gault) 84.4 BUN/Creatinine Ratio 40 (6-20) Glucose Level 113 mg/dL (70-99) Calcium Level 8.3 mg/dL (8.5-10.1) Magnesium Level 2.0 mg/dL (1.8-2.4) Total Bilirubin 0.3 mg/dL (0.2-1.0) Aspartate Amino Transf (AST/SGOT) 30 U/L (15-37) Alanine Aminotransferase (ALT/SGPT) 63 U/L (16-63) Alkaline Phosphatase 109 U/L (46-116) Total Protein 6.6 g/dL (6.4-8.2) Albumin 2.7 g/dL (3.4-5.0) Albumin/Globulin Ratio 0.7 (1.0-1.7) Allergies Allergies Coded Allergies Type Severity Reaction Last Updated Verified cephalexin Allergy Intermediate rash 04/09/19 Yes I S O L A T I O N *CONTACT* Allergy Unknown ECOLI, VRE, PSEUDOMONAS SACRAL WOUND; CHRONIC C-DIFF 04/09/19 Yes Disposition/Orders: D/C to Home w/ HH Justicifation of Admission Dx: Justifications for Admission: Justification of Admission Dx: Yes Sepsis: Parenteral Antimicrobial Cellulitis: Cellulitis RYLIE ARVIZU MD Nov 10, 2019 15:38
[2019-11-10] MEDS ORDERED: POTA20TA4 PO (15:43)
[2019-11-10] MEDS ORDERED: ACET325T9 PO (15:43)
[2019-11-10] MEDS ORDERED: AMOX1TAB11 PO (15:43)
[2019-11-10] MEDS ORDERED: ASCO500T4 PO (15:43)
[2019-11-10] MEDS ORDERED: DOXY100T PO (15:43)
[2019-11-10] MEDS ORDERED: MULT1TAB90 PO (15:43)
--- NOTE | 2019-11-10 15:48 | SNU/HH DC ---
DISCHARGE WITH HOME HEALTH DISCHARGE INFORMATION: Final Diagnosis: Problems Medical Problems: (1) Fever Status: Acute (2) Person under investigation for COVID-19 Status: Acute Condition on Discharge: Stable CODE STATUS: Code Status: Full HOME HEALTH: Face to Face: I certify this patient is under my care and that I, or a nurse practitioner or physician's museum assistant working with me, had a face to face encounter that meets the physician face to face encounter requirements with this patient on []. Medical Complications: Other (TRANSVERSE MYELITIS) RN For Eval/Treatment: Yes Physical Therapy For: Evalulation/Treatment Occupational Therapy For: Evaluation/Treatment Speech Language Pathology For: Evaluation/Treatment Home Health Aide For: Self-care SLAB OFF MILL TENDER For: Community Resources Pt Meets Homebound Status: Unable to negotiate home POST DISCHARGE ORDERS: Activity Instructions for Disc: Activity as tolerated Bathing Instructions: Shower-keep dressing dry DIET AFTER DISCHARGE: Cardiac Wound/Incision Care: Change dressing, May get incision wet, Other, see below CHECKS AFTER DISCHARGE: Checks after discharge: Check blood press - daily TREATMENT/EQUIPMENT ORDERS: Adaptive Equipment Issued: None, Commpushpa CERTIFICATION STATEMENT: Certification Statement: Certification Statement: Based on the above finding, I certify that this patient is confined to the home and needs intermittent fpc care, physical therapy and/or speech therapy, or continues to need occupational therapy.~ This patient is under my care, and I have initiated the establishment of the plan of care.~ This patient will be followed by myself or a community physician who will periodically review the plan of care. Home Meds Active Scripts Multivits,Ca,Minerals/Iron/Fa (THERA-M TABLET) 1 Each Tablet, 1 TAB PO DAILY for SUPPLEMENT for 30 Days, #30 TAB Prov:RYLIE ARVIZU MD 11/10/19 Ascorbic Acid (VITAMIN C) 500 Mg Tablet, 500 MG PO DAILY for SUPPLEMENT for 30 Days, #30 TAB Prov:RYLIE ARVIZU MD 11/10/19 Potassium Chloride (KLOR-CON M20) 20 Meq Tab.er.prt, 20 MEQ PO DAILYWBKFT for SUPPLEMENT for 28 Days, #28 TAB.SR Prov:RYLIE ARVIZU MD 11/10/19 Acetaminophen (TYLENOL) 325 Mg Tablet, 650 MG PO PRN Q4HRS PRN for FEVER > 100.3'F for 14 Days, #60 TAB Prov:RYLIE ARVIZU MD 11/10/19 Doxycycline Hyclate (DOXYCYCLINE HYCLATE) 100 Mg Tablet, 100 MG PO BID for INFECTION for 14 Days, #28 TAB Prov:RYLIE ARVIZU MD 11/10/19 Amoxicillin/Potassium Clav (AMOX TR-K CLV 875-125 MG TAB) 1 Each Tablet, 1 TAB PO BID for INFECTION for 14 Days, #28 TAB Prov:RYLIE ARVIZU MD 11/10/19 Oxycodone/Apap 5-325 (PERCOCET 5-325 MG TABLET ) 1 Each Tablet, 1 TAB PO PRN Q4HRS PRN for MILD PAIN, 1ST CHOICE, #30 TAB 0 Refills Prov:SUSY ISAAC ASSISTANT FINANCE DIRECTOR 04/11/19 Reported Medications Polyethylene Glycol 3350 (MIRALAX) 17 Gm Powd.pack, 1 PKT PO DAILY, PKT 11/02/19 Sennosides (SENOKOT) 8.6 Mg Tablet, 8.6 MG PO BID, TAB 11/02/19 Hydrochlorothiazide (HYDROCHLOROTHIAZIDE TABLET ) 25 Mg Tablet, 25 MG PO DAILY for DIURETIC, TAB 0 Refills 11/02/19 Rosuvastatin Calcium (CRESTOR) 5 Mg Tablet, 10 MG PO HS for FOR CHOLESTEROL, #30 TAB 0 Refills 11/02/19 Amlodipine/Valsartan (Amlodipine-Valsartan 10-320 mg) 1 Each Tablet, 1 EACH PO HS, TAB 11/02/19 Oxybutynin Chloride (OXYBUTYNIN CHLORIDE) 5 Mg Tablet, 5 MG PO BID, TAB 11/02/19 Spironolactone (SPIRONOLACTONE) 25 Mg Tablet, 25 MG PO DAILY, TAB 11/02/19 Furosemide (FUROSEMIDE) 40 Mg Tablet, 40 MG PO DAILY, TAB 11/02/19 Apixaban (ELIQUIS) 5 Mg Tablet, 5 MG PO BID for AFIB, TAB 04/10/19 Fluticasone Propionate (FLUTICASONE PROPIONATE NASAL SPRAY) 16 Gm Jackson.susp, 2 SPRAY NS DAILY for NASAL SPRAY, #1 INHALER 5 Refills 04/09/19 Digestive Enzymes Combo No.7 (Superior Digestive Enzyme) 1 Each Capsule, 1 EACH PO BID for supplement, CAP 03/13/19 Gabapentin (GABAPENTIN ) 300 Mg Capsule, 300 MG PO TID for NEUROGENIC PAIN, CAP 11/13/18 Metoprolol Succinate (TOPROL XL) 50 Mg Tab.er.24h, 1 TAB PO DAILY, #30 TAB 5 Refills 09/06/17 RYLIE ARVIZU MD Nov 10, 2019 15:48
--- NOTE | 2019-11-10 17:31 | NUR ---
Discharge Note: [facility] [place] Discharge instructions and discharge home medications reviewed with Patient and a copy given. All questions have been answered and understanding verbalized. The following instructions and handouts were given: wound care and wound infection Discontinued lines and drains: 2 IV catheters removed intact. Parker cather removed per MD orders. Patient discharged to Home with Home Health via personal wheelchair.
[2019-11-10] MEDS ORDERED: DOXYCYCLINE HYCLATE 100 MG TABLET PO SCH (21:00)
[2019-11-10] MEDS ORDERED: AMOXICILLIN/K CLAV 875/125MG TABLET. PO SCH (21:00)
== END 2019-11-10 17:39 | disposition home health service (06) | DRG 853 ==
LOC: ER 13:00 → ED HOLD 16:04 → 6 SOUTH 19:42 → 4 NORTH 11-06 18:15
PROVIDERS: ADMIT Family Medicine; ATTEND Family Medicine
PROC: 0QBL0ZZ Excision of Right Tarsal, Open Approach (ICD-10-PCS; principal; 2019-11-05)
DX: A41.9 Sepsis, unspecified organism (principal); L89.614 Pressure ulcer of right heel, stage 4; E43 Unspecified severe protein-calorie malnutrition; N39.0 Urinary tract infection, site not specified; G82.20 Paraplegia, unspecified; G37.3 Acute transverse myelitis in demyelinating disease of central nervous system; D64.9 Anemia, unspecified; Z20.828 Contact with and (suspected) exposure to other viral communicable diseases; Z79.899 Other long term (current) drug therapy; Z88.8 Allergy status to other drugs, medicaments and biological substances; E66.01 Morbid (severe) obesity due to excess calories; E78.00 Pure hypercholesterolemia, unspecified; E78.5 Hyperlipidemia, unspecified; E87.6 Hypokalemia; I10 Essential (primary) hypertension; L82.1 Other seborrheic keratosis; L89.159 Pressure ulcer of sacral region, unspecified stage; L89.309 Pressure ulcer of unspecified buttock, unspecified stage; M77.30 Calcaneal spur, unspecified foot; M85.80 Other specified disorders of bone density and structure, unspecified site; S92.353A Displaced fracture of fifth metatarsal bone, unspecified foot, initial encounter for closed fracture; Z79.01 Long term (current) use of anticoagulants; Z86.19 Personal history of other infectious and parasitic diseases; Z86.711 Personal history of pulmonary embolism; Z88.1 Allergy status to other antibiotic agents; Z93.3 Colostomy status; Z96.649 Presence of unspecified artificial hip joint; Z96.659 Presence of unspecified artificial knee joint; M19.90 Unspecified osteoarthritis, unspecified site; Z68.36 Body mass index [BMI] 36.0-36.9, adult; Z87.440 Personal history of urinary (tract) infections; B96.1 Klebsiella pneumoniae [K. pneumoniae] as the cause of diseases classified elsewhere
CPT/HCPCS: 36415; 36600; 71045; 73630; 73723; 76770; 80048; 80053; 81001; 82550; 82805; 83605; 83735; 83880; 84443; 84484; 85007; 85025; 85610; 85651; 86140; 87040; 87070; 87086; 93005; 93926; 96361; 96365; 99285; A9575; J0692; J0696; J0878; J2405; J2543; J3480; J3490; J7030; G0378; U0003-CS

== ENCOUNTER → 2020-01-20 | Outpatient (CLI) | payer MEDICARE, BC, OTHER ==
[~2020-01-20] MED LIST changes: +ACET325T9 PO; +AMLO-310 PO; +AMOX1TAB11 PO; +ASCO500T4 PO; -ASPI-612 PO; +ASPI-886 PO; +CRESTOR5 MG PO; +DOXY100T PO; +FURO40TA4 PO; +HYDR-2145 PO; +MULT1TAB90 PO; +OXYB5TAB10 PO; +POLY17PO29 PO; +POTA20TA4 PO; +SENN8.6T99 PO; +SPIR25TA5 PO
--- NOTE | 2020-01-20 16:54 | KCIC ---
INDICATION: History of self-catheterization with reported history of hydronephrosis COMPARISON: November 02, 2019 TECHNIQUE: Grayscale and color ultrasound images obtained of the bilateral kidneys and bladder. FINDINGS: Right Kidney: 126 mm. No hydronephrosis. Left Kidney: 102 mm. No hydronephrosis. Bladder: Urinary bladder measures approximately 180 cc prevoid. Bilateral ureter jets IMPRESSION: * No hydronephrosis bilaterally. Electronically signed by: Carroll Pace MD (01/20/2020 4:51 PM) [id number]
== END | disposition home or self-care (01) ==
LOC: KCIC US 12:45
PROVIDERS: ATTEND Urology
DX: R33.8 Other retention of urine (principal); Z87.448 Personal history of other diseases of urinary system
CPT/HCPCS: 76770

== ENCOUNTER 2020-01-29 19:37 | Emergency (ER) | payer MEDICARE, BC, OTHER ==
[~2020-01-29] VITALS: Ht 182.9 cm; Wt 113.0 kg
--- NOTE | 2020-01-29 23:00 | PHYS DOC ---
Past Medical History Past Medical History: High Cholesterol, Hypertension, Other Additional Past Medical Histor: PARAPLEGIA Past Surgical History: Cholecystectomy, Hip Replacement, Knee Replacement, Lumbar Laminectomy, Other Additional Past Surgical Histo: COLOSTOMY Smoking Status: Never Smoker Alcohol Use: Occasionally Drug Use: None General Adult EDM: Chief Complaint: FOOT INJURY PAIN HPI: HPI: Patient is a 65 year old paraplegic male who presents to the emergency department, accompanied by his , with complaints of a laceration to the medial aspect of his right great toe. Patient states that he accidentally hit his right great toe on a bathroom cabinet this evening. He reports concerns that he broke his toe. He denies any pain or other complaints at this time. Review of Systems: Review of Systems: Constitutional: Denies fever or chills. [] Musculoskeletal: See HPI Integument: See HPI Psychiatric: Denies depression or anxiety. [] Heart Score: Risk Factors: Risk Factors: DM, Current or recent (<one month) smoker, HTN, HLP, family history of CAD, obesity. Risk Scores: Score 0 - 3: 2.5% MACE over next 6 weeks - Discharge Home Score 4 - 6: 20.3% MACE over next 6 weeks - Admit for Clinical Observation Score 7 - 10: 72.7% MACE over next 6 weeks - Early Invasive Strategies Allergies: Allergies: Allergies Coded Allergies Type Severity Reaction Last Updated Verified cephalexin Allergy Intermediate rash 04/09/19 Yes I S O L A T I O N *CONTACT* Allergy Unknown ECOLI, VRE, PSEUDOMONAS SACRAL WOUND; CHRONIC C-DIFF 04/09/19 Yes Physical Exam: PE: Constitutional: Well developed, well nourished, no acute distress, non-toxic appearance. [] HENT: Normocephalic, atraumatic, bilateral external ears normal, nose normal. [] Eyes: PERRLA, EOMI, conjunctiva normal, no discharge. [] Neck: Normal range of motion, no stridor. [] Cardiovascular:Heart rate regular rhythm Lungs & Thorax: Respirations even and unlabored, no retractions, no respiratory distress Skin: Warm, dry, no erythema,; 1.5 cm laceration/AVULSION to the medial aspect of the right great toe no active bleeding, no visible foreign body Extremities: No cyanosis, ROM limited due to paraplegia, 2+ edema bilateral feet and lower extremities Neurologic: Alert and oriented X 3, no focal deficits noted. [] Psychologic: Affect normal, judgement normal, mood normal. [] EKG: EKG: [] Radiology/Procedures: Radiology/Procedures: PROCEDURE: FOOT RIGHT 3V INDICATION: Reason: great toepain and injury / Spl. Instructions: / History: COMPARISON: None. IMPRESSION: Right foot: 3 views obtained. Osseous demineralization. Edema of the soft tissues. No definite acute fracture or dislocation. There is a small apparent soft tissue defect at the plantar aspect of the foot. Electronically signed by: Carroll Pace MD (01/29/2020 11:42 PM) Wound care by me: Anesthesia: None Location: Medial right great toe Tendon/Joint/Nerves: No injury Foreign body: None detected after copious irrigation with NS and chlorhexidine Dressing: Topical Surgicel, Tegaderm, Coban, and Kerlix Patient's bleeding was easily controlled in the department and there is no indication of anemia. No evidence of compartment syndrome, neurologic injury, vascular injury, open joint, tendon laceration, or foreign body. Patient is appropriate for outpatient follow up. [] Course & Med Decision Making: Course & Med Decision Making Pertinent Labs and Imaging studies reviewed. (See chart for details) [] Dragon Disclaimer: Dragon Disclaimer: This electronic medical record was generated, in whole or in part, using a voice recognition dictation system. Departure Departure Impression: Primary Impression: Avulsion of skin of toe Qualified Codes: S91.109A - Unspecified open wound of unspecified toe(s) without damage to nail, initial encounter Disposition: 01 HOME, SELF-CARE Condition: STABLE Referrals: NIKOLE BAY MD (PCP) Patient Instructions: Deep Skin Avulsion Additional Instructions: Keep the dressing and bandage that was applied in place until follow up with wound care as scheduled next week. Return to the ER if fever, redness, warmth, or drainage develops. Justicifation of Admission Dx: Justifications for Admission: Justification of Admission Dx: N/A Sepsis: Parenteral Antimicrobial Cellulitis: Cellulitis BOB DAVIES AUTHORIZATION REP Jan 29, 2020 23:00
[2020-01-29] MEDS ORDERED: LIDOCAINE 1% PF 2 ML VIAL. INJ ONE (23:15)
--- NOTE | 2020-01-29 23:45 | RAD ---
INDICATION: Reason: great toepain and injury / Spl. Instructions: / History: COMPARISON: None. IMPRESSION: Right foot: 3 views obtained. Osseous demineralization. Edema of the soft tissues. No definite acute fracture or dislocation. There is a small apparent soft tissue defect at the plantar aspect of the foot. Electronically signed by: Carroll Pace MD (01/29/2020 11:42 PM) [id number]
[2020-01-29] MEDS ORDERED: SURGICEL HEMOSTAT 4X8 EACH. TP ONE (23:55)
[2020-01-30 01:19] VITALS: BP 116/74
== END 2020-01-30 01:20 | disposition home or self-care (01) ==
LOC: ER 19:37
DX: S91.201A Unspecified open wound of right great toe with damage to nail, initial encounter (principal); R60.0 Localized edema; E78.00 Pure hypercholesterolemia, unspecified; I10 Essential (primary) hypertension; Z90.49 Acquired absence of other specified parts of digestive tract; Z98.890 Other specified postprocedural states; Z90.89 Acquired absence of other organs; Z88.1 Allergy status to other antibiotic agents; Z88.8 Allergy status to other drugs, medicaments and biological substances; W22.8XXA Striking against or struck by other objects, initial encounter; Y93.89 Activity, other specified; Y92.091 Bathroom in other non-institutional residence as the place of occurrence of the external cause; Y99.8 Other external cause status
CPT/HCPCS: 73630; 99283

== ENCOUNTER 2020-06-26 12:48 | Emergency (ER) | payer MEDICARE, BC, OTHER ==
[~2020-06-26] VITALS: Ht 182.9 cm; Wt 120.4 kg
[~2020-06-26 12:48] MED LIST changes: +AMLO-186 PO; -AMLO5TAB10 PO; -MULT1TAB90 PO; +MULT1TAB92 PO; -POLY17PO28 PO; +POLY17PO52 PO
--- NOTE | 2020-06-26 13:38 | PHYS DOC ---
Past Medical History Past Medical History: High Cholesterol, Hypertension, Other Additional Past Medical Histor: PARAPLEGIA Past Surgical History: Cholecystectomy, Hip Replacement, Knee Replacement, Lumbar Laminectomy, Other Additional Past Surgical Histo: COLOSTOMY Smoking Status: Never Smoker Alcohol Use: Occasionally Drug Use: None General Adult EDM: Chief Complaint: FEVER HPI: HPI: Patient is a 65 year old paraplegic male with a history of hypertension, high cholesterol, among other illnesses who presents to the ED today complaining of fever and chiles. Patient states yesterday he had chills and today he developed a fever. Patient denies any cough or congestion. He states has had similar symptoms with infection to the right heel where he has a chronic wound that he follows up with the wound clinic. He states he has also had similar infection with a UTI. Patient denies any nausea, vomiting, diarrhea. He states he is on doxycycline preventatively for UTI. Review of Systems: Review of Systems: Constitutional: Reports fever and chills Eyes: Denies change in visual acuity. [] HENT: Denies nasal congestion or sore throat. [] Respiratory: Denies cough or shortness of breath. [] Cardiovascular: Denies chest pain or edema. [] GI: Denies abdominal pain, nausea, vomiting, bloody stools or diarrhea. [] : Denies dysuria. [] Musculoskeletal: Denies back pain or joint pain. [] Integument: Reports heel ulcer Neurologic: Denies headache, focal weakness or sensory changes. [] Psychiatric: Denies depression or anxiety. [] Heart Score: Risk Factors: Risk Factors: DM, Current or recent (<one month) smoker, HTN, HLP, family history of CAD, obesity. Risk Scores: Score 0 - 3: 2.5% MACE over next 6 weeks - Discharge Home Score 4 - 6: 20.3% MACE over next 6 weeks - Admit for Clinical Observation Score 7 - 10: 72.7% MACE over next 6 weeks - Early Invasive Strategies Allergies: Allergies: Allergies Coded Allergies Type Severity Reaction Last Updated Verified cephalexin Allergy Intermediate rash 04/09/19 Yes I S O L A T I O N *CONTACT* Allergy Unknown ECOLI, VRE, PSEUDOMONAS SACRAL WOUND; CHRONIC C-DIFF 04/09/19 Yes Physical Exam: PE: Constitutional: Well developed, well nourished, no acute distress, non-toxic appearance. [] HENT: Normocephalic, atraumatic, bilateral external ears normal, oropharynx moist, no oral exudates, nose normal. [] Eyes: PERRLA, EOMI, conjunctiva normal, no discharge. [] Neck: Normal range of motion, no tenderness, supple, no stridor. [] Cardiovascular:Heart rate regular rhythm, no murmur [] Lungs & Thorax: Bilateral breath sounds clear to auscultation [] Abdomen: Bowel sounds normal, soft, no tenderness, no masses, no pulsatile masses. [] Skin: Warm, dry, no erythema, no rash. [] Back: No tenderness, no CVA tenderness. [] Extremities: Paraplegic. No tenderness, no cyanosis, no clubbing, no edema. Right heel with a wound nondraining approximately quarter size, no signs of infection. +2 right pedal pulse. Neurologic: Alert and oriented X 3, normal motor function, normal sensory function, no focal deficits noted. [] Psychologic: Affect normal, judgement normal, mood normal. [] Current Patient Data: Vital Signs: Vital Signs Date Time Temp Pulse Resp B/P (MAP) Pulse Ox O2 Delivery O2 Flow Rate FiO2 06/26/20 12:51 98.2 108 26 174/82 (112) 99 Room Air 98.2 EKG: EKG: [] Radiology/Procedures: Radiology/Procedures: []REASON: fever since this morning PROCEDURE: PORTABLE CHEST 1V Study: XR CHEST 1V Indication: Fever. Comparison: 11/02/2019 Findings: Unchanged configuration of the cardiomediastinal silhouette which appears somewhat prominent but accentuated by low lung volumes. Slightly more noticeable haziness at the infrahilar right lung. No dense opacity on the left. No large effusion or pneumothorax. Impression: Faintly more noticeable haziness at the infrahilar right lung. This could be summation artifact or atelectasis though a mild infectious infiltrate is not fully excluded. Otherwise no significant change relative to 11/02/2019. Electronically signed by: RACHELLE SALAZAR MD (06/26/2020 1:43 PM) [id number] DICTATED and SIGNED BY: RACHELLE SALAZAR MD DATE: 06/26/20 [id number] 0 Course & Med Decision Making: Course & Med Decision Making Pertinent Labs and Imaging studies reviewed. (See chart for details) This is a 65-year-old paraplegic male patient presented to the ED today with fever, chills, symptoms began yesterday. Also reports a chronic wound to the right heel but states is being followed up with the wound clinic. He states the dressing they have on right now is $700. The right heel wound was examined, it does not appear to be infected. Patient is also on doxycycline for UTI prevention. CBC with a normal WBC, CMP with nothing really acute. Procalcitonin 0.38. Lactic is normal, urine analysis with trace amount of leukocytes otherwise no acute findings. Chest x-ray interpreted by radiologist was noted for faintly more noticeable haziness at the infrahilar right lung. This could be summation artifact or atelectasis though a mild infectious infiltrate is not fully ex cluded. Otherwise no significant change relative to 11/02/2019. Patient has no cough. His temperature in the ED is normal. He was tested for COVID-19. I talked to patient at length about his choices including admission. He states he prefers not to be admitted unless he has an active infection. Informed him he could be in the early stages of an active infection. Informed him we will call him in the course of next week with COVID-19 results. He also follows up with the wound clinic on Sunday. Instructed him to take Tylenol/ Motrin for pain or fever and return to the ED at any point symptoms worsen. Dragon Disclaimer: Kriss Disclaimer: This electronic medical record was generated, in whole or in part, using a voice recognition dictation system. Departure Departure Impression: Primary Impression: Person under investigation for COVID-19 Additional Impression: Fever Qualified Codes: R50.9 - Fever, unspecified Disposition: DC HOME SELF CARE/HOMELESS Condition: STABLE Referrals: NIKOLE BAY MD (PCP) follow up next week Patient Instructions: Fever, Adult, [id number] Additional Instructions: You were evaluated in the emergency room, your white count was 10.9. Your urine did not show significant signs of infection. Chest x-ray did not show sign ificant infection. You could be in an early phase of an infection. Please take Tylenol or ibuprofen as needed for fever or pain. Please come back to the ED at any point symptoms worsen. Follow-up with the wound clinic on Sunday as well as your primary care doctor. ANNETTE ESCOBEDO APRN Jun 26, 2020 13:37
--- NOTE | 2020-06-26 13:46 | RAD ---
Study: XR CHEST 1V Indication: Fever. Comparison: 11/02/2019 Findings: Unchanged configuration of the cardiomediastinal silhouette which appears somewhat prominent but acce ntuated by low lung volumes. Slightly more noticeable haziness at the infrahilar right lung. No dense opacity on the left. No larg e effusion or pneumothorax. Impression: Faintly more noticeable haziness at the infrahilar right lung. This could be summation artifact or at electasis though a mild infectious infiltrate is not fully excluded. Otherwise no significant change relative to 11/02/2019. Electronically signed by: RACHELLE SALAZAR MD (06/26/2020 1:43 PM) [id number]
[2020-06-26 14:29] LABS: BASO % 1 % (0-3); EOS # 0.1 x10^3/uL (0.0-0.7); EOS % 1 % (0-3); HEMATOCRIT 41.2 % (39.0-53.0); LYMPH % 9 % (24-48); MEAN CORPUSCULAR HEMOGLOBIN 30 pg (25-35); MEAN CORPUSCULAR HGB CONC 34 g/dL (31-37); MEAN CORPUSCULAR VOLUME 89 fL (79-100); MONO # 0.8 x10^3/uL (0.0-1.1); MONO % 7 % (0-9); NEUT % 83 % (31-73); PLATELET COUNT 242 x10^3/uL (140-400); RED BLOOD COUNT 4.63 x10^6/uL (4.30-5.70); RED CELL DISTRIBUTION WIDTH 14.4 % (11.5-14.5); WHITE BLOOD COUNT 10.9 x10^3/uL (4.0-11.0)
[2020-06-26 14:36] LABS: CALCIUM 9.2 mg/dL (8.5-10.1); CREATININE 1.2 mg/dL (0.7-1.3); GFR 60.4; POTASSIUM 3.9 mmol/L (3.5-5.1)
[2020-06-26 14:42] LABS: ALBUMIN 3.2 g/dL (3.4-5.0); ALBUMIN/GLOBULIN RATIO 0.7 (1.0-1.7); MAGNESIUM 2.3 mg/dL (1.8-2.4); TOTAL BILIRUBIN 0.5 mg/dL (0.2-1.0); TOTAL PROTEIN 7.5 g/dL (6.4-8.2)
[2020-06-26 15:03] LABS: BILIRUBIN,URINE NEGATIVE (NEG); CLARITY,URINE CLEAR; COLOR,URINE YELLOW; NITRITE,URINE NEGATIVE (NEG); PROTEIN,URINE NEGATIVE (NEG-TRACE); UROBILINOGEN,URINE 0.2 mg/dL (0.2 mg/dL)
[2020-06-26 15:09] LABS: RBC,URINE 0 /HPF (0-2)
[2020-06-26 15:10] LABS: BACTERIA,URINE 0 /HPF (0-FEW); WBC,URINE OCC /HPF (0-4)
[2020-06-26 16:30] VITALS: BP 138/80
--- NOTE | 2020-06-28 10:02 | NUR ---
IP: Informed pt of negative COVID test. Pt verbalized understanding.
== END 2020-06-26 16:45 | disposition home or self-care (01) ==
LOC: ER 12:48
DX: R50.9 Fever, unspecified (principal); Z20.828 Contact with and (suspected) exposure to other viral communicable diseases; E78.00 Pure hypercholesterolemia, unspecified; I10 Essential (primary) hypertension; Z93.3 Colostomy status; Z90.49 Acquired absence of other specified parts of digestive tract; Z88.1 Allergy status to other antibiotic agents; Z91.041 Radiographic dye allergy status
CPT/HCPCS: 36415; 51702; 71045; 80053; 81001; 83605; 83735; 84145; 85025; 87040; 87086; 99285; C9803; U0003

== ENCOUNTER 2020-07-07 13:21 | Inpatient (IN) | payer MEDICARE, BC, OTHER ==
[~2020-07-07] VITALS: Ht 182.9 cm; Wt 130.2 kg
[~2020-07-07 13:21] MED LIST changes: +MULT1TAB90 PO; -MULT1TAB92 PO; +POLY17PO28 PO; -POLY17PO52 PO
[2020-07-07 13:45] VITALS: BP 143/80
[2020-07-07 14:23] LABS: BILIRUBIN,URINE NEGATIVE (NEG); CLARITY,URINE CLEAR; COLOR,URINE YELLOW; NITRITE,URINE NEGATIVE (NEG); PROTEIN,URINE NEGATIVE (NEG-TRACE); UROBILINOGEN,URINE 0.2 mg/dL (0.2 mg/dL)
--- NOTE | 2020-07-07 14:28 | NUR ---
Wound/Ostomy Care Wound Type/Assessment: Pt seen in wound clinic today for routine treatment to R plantar heel ST IV pressure ulcer. Pt is paraplegic, history of bilateral total knee replacements, Pressure ulcer to coccyx (currently healed), colostomy, and requires straight cath to void. Pt seen in clinic on 07/01/20 and reported fevers of 100-101 since the previous sunday (managed with ibuprofen), and a brief visit to the ER where he tested negative for C19. C/O diarrhea, stomach cramping, lethargy during this time. Prescribed clindamycin 300mg PO TID x 10 days on 07/01/20, which did not resolve fevers or other s/s. Additionally, R knee is swollen, red streaks, and warm. No perceptible pain d/t paraplegia status. Wound surgically debrided in clinic today prior to admission. Pictures and measurements, orange sheet, wound dressings from visit sent with pt to inpatient room 416. Report called to Champ QUISPE. Treatment Recommendations/Plan: R heel: Cleanse and dry. Apply hydrofera blue ready and foam dressing. CHange dressing PRN soiling, otherwise Woundcare will change on Sunday 07/09 Education provided: Pt is alert and oriented and able to assist with turns, but will need help d/t mobility status. Offloading surface/device: P500 bed, heel medix boots, wedge and pillows for repositioning and comfort. Recommended Referrals/Tests: Urinalysis ordered and collected Wound culture ordered and collected Consult to I&D recommended by Dr. Govea Consult to Dr. Napoles for wound management. Discharge Recommendations for dressings: As above. WC follow up 07/09/20
[2020-07-07 14:36] LABS: BACTERIA,URINE FEW /HPF (0-FEW); RBC,URINE RARE /HPF (0-2); WBC,URINE >40 /HPF (0-4)
[2020-07-07 15:00] VITALS: BP 140/78
[2020-07-07] MEDS ORDERED: DOCUSATE SODIUM 100 MG CAPSULE. PO PRN (15:00)
[2020-07-07] MEDS ORDERED: ACETAMINOPHEN 325 MG TABLET. PO PRN (15:00)
[2020-07-07] MEDS ORDERED: VANCOMYCIN PER PHARMACY MC PRN (15:00)
[2020-07-07] MEDS ORDERED: DEXTROSE 50% 25 GM / 50ML DISP.SYRIN. IV PRN ×2 (15:00)
[2020-07-07] MEDS ORDERED: ONDANSETRON PF 4 MG/2 ML VIAL. IVP PRN (15:00)
--- NOTE | 2020-07-07 15:28 | RAD ---
INDICATION: Reason: fever, knee pain / Spl. Instructions: / History: COMPARISON: None. IMPRESSION: Right knee: 2 views obtained. Status post knee arthroplasty changes. No periprosthetic fracture or di slocation. Soft tissue swelling is seen. There is a large knee joint effusion identified with displac ement of the patella anteriorly. Both sterile effusions such as hemarthrosis as well as infected effu kalee is within the differential and cannot be differentiated on plain film. Electronically signed by: Carroll Pace MD (07/07/2020 3:25 PM) [id number]
--- NOTE | 2020-07-07 15:48 | RAD ---
EXAM: CHEST ONE VIEW. HISTORY: Fever. COMPARISON: 06/26/2020. FINDINGS: A frontal view of the chest is obtained. There are no confluent infiltrates. There is no pneumothorax or pleural effusion. The heart is not en larged. There are atherosclerotic calcifications of the aorta. IMPRESSION: 1. No confluent infiltrates. Electronically signed by: Bertha Stephenson MD (07/07/2020 3:46 PM) [id number]
[2020-07-07] MEDS ORDERED: VANCOMYCIN 2 GM in IV NORMAL SALINE 500ML BAG 500 ML IV ONE (16:00)
[2020-07-07] MEDS ORDERED: CEFEPIME HCL IV Push 2 GM VIAL. IVP SCH (16:00)
--- NOTE | 2020-07-07 16:52 | PDOC1 ---
History and Physical Date of Service: DOS: DATE: 07/07/20 TIME: 16:26 Chief Complaint: Chief Complain: Persistent fevers History of Present Illness: HPI: Patient is a 65 yo M with PMHx of HTN, DLD, Obesity, wheelchair bound due to paraplegia, and diverting colostomy who is sent from the wound clinic due to persistent fevers for the past 2 weeks. He is being taken care of by Dr Padilla for a chronic right heel wound that is healing well, and he was also being treated with Doxycycline for a chronic UTI. patient does straight cath himself 4 times/day due to urinary retention. He was recently started on clindamycin to treat his UTI. He also does complain of diarrhea a couple of days ago, that started before starting clindamycin. He denies feeling of fevers, N/V, chest pain, ABD pain, dysuria, or confusion or hematuria or malaise or lost of smell or knee pain. Past Medical/Surgical History: PMH/PSH: Cardiovascular: HTN, Hyperlipidemia, Afib CENTRAL NERVOUS SYSTEM: Periperal neuropathy Hepatobiliary: Cholelithiasis Musculoskeletal: Osteoarthritis, Muscle atrophy, Weakness Obesity Right heel wound Past Surgical History: Other (Diverting colostomy) due to gluteal wound that required plastic reconstruction in 2019, Bilateral TKA 4 years ago Allergies: Allergies: Coded Allergies: cephalexin (Verified Allergy, Intermediate, rash, 04/09/19) Family History: Family History: CAD Social History: Social History: Denies EtoH, tobacco, or drug abuse. Current Medications: Current Medications Current Medications Vancomycin HCl (Vanco Per Pharmacy) 1 each PRN DAILY PRN MC SEE COMMENTS; Start 07/07/20 at 15:00 Cefepime HCl (Maxipime) 2 gm Q24H IVP ; Start 07/07/20 at 16:00 Insulin Human Lispro (HumaLOG) 0-9 UNITS TIDWMEALS SQ ; Start 07/07/20 at 17:00 Dextrose (Dextrose 50%-Water Syringe) 12.5 gm PRN Q15MIN PRN IV SEE COMMENTS; Start 07/07/20 at 15:00 Sennosides (Senna) 17.2 mg PRN BID PRN PO CONSTIPATION; Start 07/07/20 at 15:00 Docusate Sodium (Colace) 100 mg PRN DAILY PRN PO HARD STOOLS; Start 07/07/20 at 15:00 Ondansetron HCl (Zofran) 4 mg PRN Q6HRS PRN IVP NAUSEA/VOMITING; Start 07/07/20 at 15:00 Dextrose (Dextrose 50%-Water Syringe) 12.5 gm PRN Q15MIN PRN IV SEE COMMENTS; Start 07/07/20 at 15:00; Stop 07/07/20 at 14:55; Status DC Acetaminophen (Tylenol) 650 mg PRN Q4HRS PRN PO TEMP OVER 100.4F OR MILD PAIN; Start 07/07/20 at 15:00 Vancomycin HCl 2 gm/Sodium Chloride 500 ml @ 250 mls/hr 1X ONCE IV ; Start 07/07/20 at 16:00; Stop 07/07/20 at 17:59 Active Scripts Active Thera-M Tablet (Multivits,Ca,Minerals/Iron/Fa) 1 Each Tablet 1 Tab PO DAILY 30 Days Vitamin C (Ascorbic Acid) 500 Mg Tablet 500 Mg PO DAILY 30 Days Klor-Con M20 (Potassium Chloride) 20 Meq Tab.er.prt 20 Meq PO DAILYWBKFT 28 Days Tylenol (Acetaminophen) 325 Mg Tablet 650 Mg PO PRN Q4HRS PRN 14 Days Doxycycline Hyclate 100 Mg Tablet 100 Mg PO BID 14 Days Amox Tr-K Clv 875-125 Mg Tab (Amoxicillin/Potassium Clav) 1 Each Tablet 1 Tab PO BID 14 Days Percocet 5-325 Mg Tablet (Oxycodone/Acetaminophen) 1 Each Tablet 1 Tab PO PRN Q4HRS PRN Reported Miralax (Polyethylene Glycol 3350) 17 Gm Powd.pack 1 Pkt PO DAILY Senokot (Sennosides) 8.6 Mg Tablet 8.6 Mg PO BID Hydrochlorothiazide Tablet (Hydrochlorothiazide) 25 Mg Tablet 25 Mg PO DAILY Crestor (Rosuvastatin Calcium) 5 Mg Tablet 10 Mg PO HS Amlodipine-Valsartan 10-320 mg (Amlodipine/Valsartan) 1 Each Tablet 1 Each PO HS Oxybutynin Chloride 5 Mg Tablet 5 Mg PO BID Spironolactone 25 Mg Tablet 25 Mg PO DAILY Furosemide 40 Mg Tablet 40 Mg PO DAILY Eliquis (Apixaban) 5 Mg Tablet 5 Mg PO BID Fluticasone Propionate Nasal [place] (Fluticasone Propionate) 16 Gm [place].susp 2 [place] NS DAILY Superior Digestive Enzyme (Digestive Enzymes Combo No.7) 1 Each Capsule 1 Each PO BID Gabapentin (Gabapentin) 300 Mg Capsule 300 Mg PO TID Toprol Xl (Metoprolol Succinate) 50 Mg Tab.er.24h 1 Tab PO DAILY ROS: Review of Systems Review of System REVIEW OF SYSTEMS: GENERAL: Denies weakness SKIN: No bruising, hair changes or rashes. EYES: No blurred, double or loss of vision. NOSE AND THROAT: No history of nosebleeds, hoarseness or sore throat. HEART: No history of palpitations, chest pain or shortness of breath on exertion. LUNGS: Denies cough, hemoptysis, wheezing or shortness of breath. GASTROINTESTINAL: Denies changes in appetite, nausea, vomiting, diarrhea or constipation. GENITOURINARY: No history of frequency, urgency, hesitancy or nocturia. NEUROLOGIC: Denies history of numbness, tingling, or tremor. PSYCHIATRIC: No history of panic, anxiety or depression. ENDOCRINE: No history of heat or cold intolerance, polyuria or polydipsia. EXTREMITIES: Denies joint pain, pain on walking or stiffness. Physical Exam: Vital Signs: Vital Signs Date Time Temp Pulse Resp B/P (MAP) Pulse Ox O2 Delivery O2 Flow Rate FiO2 07/07/20 15:54 Room Air 07/07/20 15:00 98.0 78 18 140/78 (98) 98 98.0 Physcial Exam: GEN: No apparent distress. Alert and oriented. Obese, wheelchair bound HEENT: Normal cephalic, atraumatic, external auditory canals are patent EYES: Extraocular muscles are intact, pupil are equally round and reactive to light and accommodation MUSCULOSKELETAL: Well developed , well nourished, good range of motion ENDOCRINE: No thyromegaly was palpated LYMPHATICS: No cervical chain or axillary nodes were noted HEMATOPOIETIC: No bruising NECK: Supple, no JVD, no thyromegaly was noted LUNGS: Clear to auscultation in all lung mosley without rhonchi or wheezing HEART: RRR, S!, S2 present. Peripheral pulses intact, no obvious murmurs noted ABDOMEN: Soft, nontender. Positive bowel sounds, no organomegaly, normal bowel sounds EXTREMITIES: Right heel wound with active bleeding and healthy granulation tissue. NEUROLOGIC: Normal speech and tone. A&O x 3, moves all extremities, no obvious focal deficits PSYCHIATRIC: Normal affect, normal mood. Stable SKIN: Right knee shows erythema without tenderness or warmth. Some effusions is milkable. VASCULAR: Good capillary refill, neurovascular bundle appears to be intact Labs: Labs: Laboratory Tests Test 07/07/20 14:15 Urine Collection Type Unknown Urine Color Yellow Urine Clarity Clear Urine pH 5.0 (<5.0-8.0) Urine Specific [place] 1.010 (1.000-1.030) Urine Protein Negative mg/dL (NEG-TRACE) Urine Glucose (UA) Negative mg/dL (NEG) Urine Ketones (Stick) Negative mg/dL (NEG) Urine Blood Negative (NEG) Urine Nitrite Negative (NEG) Urine Bilirubin Negative (NEG) Urine Urobilinogen Dipstick 0.2 mg/dL (0.2 mg/dL) Urine Leukocyte Esterase Large (NEG) Urine RBC Rare /HPF (0-2) Urine WBC >40 /HPF (0-4) Urine Squamous Epithelial Cells Occ /LPF Urine Bacteria Few /HPF (0-FEW) Laboratory Tests Test 07/07/20 14:15 Urine Collection Type Unknown Urine Color Yellow Urine Clarity Clear Urine pH 5.0 (<5.0-8.0) Urine Specific [place] 1.010 (1.000-1.030) Urine Protein Negative mg/dL (NEG-TRACE) Urine Glucose (UA) Negative mg/dL (NEG) Urine Ketones (Stick) Negative mg/dL (NEG) Urine Blood Negative (NEG) Urine Nitrite Negative (NEG) Urine Bilirubin Negative (NEG) Urine Urobilinogen Dipstick 0.2 mg/dL (0.2 mg/dL) Urine Leukocyte Esterase Large (NEG) Urine RBC Rare /HPF (0-2) Urine WBC >40 /HPF (0-4) Urine Squamous Epithelial Cells Occ /LPF Urine Bacteria Few /HPF (0-FEW) Images: Images CXR IMPRESSION: 1. No confluent infiltrates. Right KNEE XR IMPRESSION: Right knee: 2 views obtained. Status post knee arthroplasty changes. No periprosthetic fracture or dislocation. Soft tissue swelling is seen. There is a large knee joint effusion identified with displacement of the patella anteriorly. Both sterile effusions such as hemarthrosis as well as infected effusion is within the differential and cannot be differentiated on plain film. Assessment/Plan Assessment/Plan Persistent fevers Right knee effusion, possibly infectious Acute on chronic UTI Chronic non-healing right heel wound Diarrhea Admit to medicine for further management Pending Blood and urine Cx Continue empiric IV Vancomycine and Cefepime ID consult Ortho consult Wound care consult for right heel wound and ostomy bag management C Diff PCR PT/OT Lovenox for DVT prophylaxis Inpatient management as above DPOA: Justifications for Admission Other Justification KERI MAURO MD Jul 07, 2020 16:51
[2020-07-07] MEDS ORDERED: INSULIN LISPRO 300 UNITS/3 ML VIAL. SQ SCH (17:00)
--- NOTE | 2020-07-07 17:01 | RAD ---
Two-view right foot HISTORY: Fever, right foot ulcer Limited 2 view AP lateral views There is gross osteopenia. There is deformity of the distal fifth metatarsal. Remaining visualized os seous structures appear grossly intact. IMPRESSION: 1. Deformity of the distal fifth metatarsal suggests a fracture but is of uncertain age. 2. Gross osteopenia which could be secondary to disuse atrophy. Electronically signed by: Steve Hoskins III, MD (07/07/2020 4:59 PM) [facility]
[2020-07-07 17:03] LABS: BASO # 0.1 x10^3/uL (0.0-0.2); BASO % 1 % (0-3); EOS # 0.5 x10^3/uL (0.0-0.7); EOS % 4 % (0-3); HEMATOCRIT 37.2 % (39.0-53.0); HEMOGLOBIN 12.3 g/dL (13.0-17.5); LYMPH # 1.6 x10^3/uL (1.0-4.8); LYMPH % 14 % (24-48); MEAN CORPUSCULAR HEMOGLOBIN 29 pg (25-35); MEAN CORPUSCULAR HGB CONC 33 g/dL (31-37); MEAN CORPUSCULAR VOLUME 89 fL (79-100); MONO # 0.8 x10^3/uL (0.0-1.1); MONO % 7 % (0-9); NEUT # 9.1 x10^3/uL (1.8-7.7); NEUT % 75 % (31-73); PLATELET COUNT 362 x10^3/uL (140-400); RED CELL DISTRIBUTION WIDTH 13.9 % (11.5-14.5); WHITE BLOOD COUNT 12.1 x10^3/uL (4.0-11.0)
[2020-07-07] MEDS ORDERED: ENOXAPARIN 40 MG/0.4 ML SYRINGE. SQ SCH (17:15)
[2020-07-07 17:22] LABS: ALBUMIN 2.7 g/dL (3.4-5.0); ALBUMIN/GLOBULIN RATIO 0.7 (1.0-1.7); CALCIUM 9.1 mg/dL (8.5-10.1); CREATININE 0.9 mg/dL (0.7-1.3); GFR 84.2; POTASSIUM 4.7 mmol/L (3.5-5.1); TOTAL BILIRUBIN 0.4 mg/dL (0.2-1.0); TOTAL PROTEIN 6.7 g/dL (6.4-8.2)
--- NOTE | 2020-07-07 18:01 | NUR ---
Pharmacy Vancomycin Dosing Note S:Consulted to monitor and dose vancomycin started 07/07/20. O:DONAVON TRAVIS is a 65 year old M with possible infected TKA. Height: 6 feet, 0 inches Weight: 115.9 kg [place] Body Weight: 77.60 Adjusted Body Weight: 92.92 Dosing Weight: Actual Other Antibiotics: Cefepime LABS: Last BUN: 22 Last Creatinine: 0.9 Creatinine Clearance: 94 mL/min Last WBC: 12.1 Last Procalcitonin: Tmax (past 24 hours): 98.1 Microbiology: Foot wound: no organisms seen Last dose given 07/07/20 at 1734 Vancomycin Dosing: Loading Dose: 2000 mg x1 Dosing Weight: Actual Target Trough: 15-20 A: Based on: weight and renal function P: 1. Begin Vancomycin 1500 mg IV q12h 2. Follow up Trough level on 07/09/20 at 0500 3. Pharmacy will continue to monitor, follow and adjust therapy as needed. Phylicia Aquino RPH, 07/07/20 [id number]
[2020-07-07 19:00] VITALS: BP 147/88
[2020-07-07] MEDS: ATORVASTATIN CALCIUM 40 MG TABLET. PO SCH (21:27)
[2020-07-07] MEDS: APIXABAN 5 MG TABLET. PO SCH (21:27)
[2020-07-07] MEDS: GABAPENTIN 300 MG CAPSULE. PO SCH (21:27)
[2020-07-07] MEDS: SENNOSIDES 8.6 MG TABLET PO SCH (21:27)
[2020-07-07] MEDS: OXYBUTYNIN CHLORIDE 5 MG TABLET PO SCH (21:27)
[2020-07-07 23:31] VITALS: BP 142/80
[2020-07-08 03:08] VITALS: BP 124/80
[2020-07-08] MEDS ORDERED: VANCOMYCIN 1.5 GM in IV NORMAL SALINE 500ML BAG 500 ML IV SCH (05:30)
[2020-07-08 08:00] VITALS: BP 117/70
[2020-07-08 08:30] LABS: BASO # 0.1 x10^3/uL (0.0-0.2); BASO % 1 % (0-3); EOS # 0.4 x10^3/uL (0.0-0.7); EOS % 4 % (0-3); HEMATOCRIT 34.7 % (39.0-53.0); HEMOGLOBIN 11.6 g/dL (13.0-17.5); LYMPH # 1.2 x10^3/uL (1.0-4.8); LYMPH % 11 % (24-48); MEAN CORPUSCULAR HEMOGLOBIN 30 pg (25-35); MEAN CORPUSCULAR HGB CONC 33 g/dL (31-37); MEAN CORPUSCULAR VOLUME 89 fL (79-100); MONO # 0.8 x10^3/uL (0.0-1.1); MONO % 7 % (0-9); NEUT # 8.5 x10^3/uL (1.8-7.7); NEUT % 77 % (31-73); PLATELET COUNT 352 x10^3/uL (140-400); RED BLOOD COUNT 3.92 x10^6/uL (4.30-5.70); RED CELL DISTRIBUTION WIDTH 13.5 % (11.5-14.5)
--- NOTE | 2020-07-08 08:38 | PDOC ---
Infectious Disease Note Vital Sign Vital Signs Vital Signs Date Time Temp Pulse Resp B/P (MAP) Pulse Ox O2 Delivery O2 Flow Rate FiO2 07/08/20 08:00 98.1 98 19 117/70 (86) 92 Room Air 98.1 Labs Lab Laboratory Tests Test 07/07/20 14:15 07/07/20 16:15 07/08/20 07:29 Urine Collection Type Unknown Urine Color Yellow Urine Clarity Clear Urine pH 5.0 (<5.0-8.0) Urine Specific [place] 1.010 (1.000-1.030) Urine Protein Negative mg/dL (NEG-TRACE) Urine Glucose (UA) Negative mg/dL (NEG) Urine Ketones (Stick) Negative mg/dL (NEG) Urine Blood Negative (NEG) Urine Nitrite Negative (NEG) Urine Bilirubin Negative (NEG) Urine Urobilinogen Dipstick 0.2 mg/dL (0.2 mg/dL) Urine Leukocyte Esterase Large (NEG) Urine RBC Rare /HPF (0-2) Urine WBC >40 /HPF (0-4) Urine Squamous Epithelial Cells Occ /LPF Urine Bacteria Few /HPF (0-FEW) White Blood Count 12.1 x10^3/uL (4.0-11.0) 11.0 x10^3/uL (4.0-11.0) Red Blood Count 4.20 x10^6/uL (4.30-5.70) 3.92 x10^6/uL (4.30-5.70) Hemoglobin 12.3 g/dL (13.0-17.5) 11.6 g/dL (13.0-17.5) Hematocrit 37.2 % (39.0-53.0) 34.7 % (39.0-53.0) Mean Corpuscular Volume 89 fL (79-100) 89 fL (79-100) Mean Corpuscular Hemoglobin 29 pg (25-35) 30 pg (25-35) Mean Corpuscular Hemoglobin Concent 33 g/dL (31-37) 33 g/dL (31-37) Red Cell Distribution Width 13.9 % (11.5-14.5) 13.5 % (11.5-14.5) Platelet Count 362 x10^3/uL (140-400) 352 x10^3/uL (140-400) Neutrophils (%) (Auto) 75 % (31-73) 77 % (31-73) Lymphocytes (%) (Auto) 14 % (24-48) 11 % (24-48) Monocytes (%) (Auto) 7 % (0-9) 7 % (0-9) Eosinophils (%) (Auto) 4 % (0-3) 4 % (0-3) Basophils (%) (Auto) 1 % (0-3) 1 % (0-3) Neutrophils # (Auto) 9.1 x10^3/uL (1.8-7.7) 8.5 x10^3/uL (1.8-7.7) Lymphocytes # (Auto) 1.6 x10^3/uL (1.0-4.8) 1.2 x10^3/uL (1.0-4.8) Monocytes # (Auto) 0.8 x10^3/uL (0.0-1.1) 0.8 x10^3/uL (0.0-1.1) Eosinophils # (Auto) 0.5 x10^3/uL (0.0-0.7) 0.4 x10^3/uL (0.0-0.7) Basophils # (Auto) 0.1 x10^3/uL (0.0-0.2) 0.1 x10^3/uL (0.0-0.2) Sodium Level 138 mmol/L (136-145) Potassium Level 4.7 mmol/L (3.5-5.1) Chloride Level 103 mmol/L (98-107) Carbon Dioxide Level 24 mmol/L (21-32) Anion Gap 11 (6-14) Blood Urea Nitrogen 22 mg/dL (8-26) Creatinine 0.9 mg/dL (0.7-1.3) Estimated GFR (Cockcroft-Gault) 84.2 BUN/Creatinine Ratio 24 (6-20) Glucose Level 111 mg/dL (70-99) Calcium Level 9.1 mg/dL (8.5-10.1) Total Bilirubin 0.4 mg/dL (0.2-1.0) Aspartate Amino Transf (AST/SGOT) 18 U/L (15-37) Alanine Aminotransferase (ALT/SGPT) 37 U/L (16-63) Alkaline Phosphatase 103 U/L (46-116) Total Protein 6.7 g/dL (6.4-8.2) Albumin 2.7 g/dL (3.4-5.0) Albumin/Globulin Ratio 0.7 (1.0-1.7) Micro Microbiology 07/07/20 Gram Stain - Final, Resulted 07/07/20 Aerobic and Anaerobic Culture, Resulted Pending Objective Assessment pt seen, consult dictated Plan Plan of Care / STEVENSON OLSON MD Jul 08, 2020 08:38
[2020-07-08] MEDS: SENNOSIDES 8.6 MG TABLET PO SCH ×2 (08:46→20:52)
[2020-07-08] MEDS: ASCORBIC ACID 500 MG TABLET PO SCH (08:46)
[2020-07-08] MEDS: POLYETHYLENE GLYCOL 3350 17 GM PACKET. PO SCH (08:46)
[2020-07-08] MEDS: GABAPENTIN 300 MG CAPSULE. PO SCH ×3 (08:46→20:48)
[2020-07-08] MEDS: OXYBUTYNIN CHLORIDE 5 MG TABLET PO SCH ×2 (08:46→20:48)
[2020-07-08] MEDS: APIXABAN 5 MG TABLET. PO SCH ×2 (08:46→20:48)
[2020-07-08] MEDS: METOPROLOL SUCC 24HR ER 50 MG TAB.ER.24H. PO SCH (08:47)
[2020-07-08 08:54] LABS: CALCIUM 8.5 mg/dL (8.5-10.1); CREATININE 0.8 mg/dL (0.7-1.3); GFR 96.4; MAGNESIUM 2.3 mg/dL (1.8-2.4); PHOSPHORUS 3.7 mg/dL (2.6-4.7); POTASSIUM 4.4 mmol/L (3.5-5.1)
[2020-07-08] MEDS ORDERED: CEFEPIME HCL IV Push 2 GM VIAL. IVP SCH (09:00)
--- NOTE | 2020-07-08 09:30 | NUR ---
SW following. Discussed with RN, pt from home with , room air, regular diet. Pt having wound care for colostomy. PT/OT ordered. ID following. Dr. Sharif consulted. Discussion RE IR placing a drain after pt is seen by Dr. Sharif. IRENE will continue to follow.
--- NOTE | 2020-07-08 09:42 | CONS ---
DATE OF CONSULTATION: 07/08/2020 REQUESTING PHYSICIAN: Dr. Michael Govea. REASON FOR CONSULTATION: Fever for 2 weeks. HISTORY OF PRESENT ILLNESS: This is a 65-year-old gentleman, who is very well known to me. The patient had transverse myelitis around the T10-T12 level and he has been paraplegic for at least 2 years or so. The patient in 2019 had a long stay in [facility], also had a decubitus, which eventually had a flap done. The patient also had C. diff. The patient does do self-cath. The patient started running fever 2 weeks ago he says. He has had a visit to the ER here, blood cultures were done and urine culture, both were negative, was given clindamycin; the patient had been on doxycycline for his foot wound for a long time; and now, he is admitted for fever that has been happening for 2 weeks. The patient denies any nausea, vomiting or diarrhea. Denies any chest pain or shortness of breath. He has had some discomfort in the abdomen; and the right calcaneal wound is nicely healing without any problem. The patient does not have any feeling in the legs. The knee has effusion and some redness, but there is no pain as he does not have any feeling. PAST MEDICAL HISTORY: Positive for transverse myelitis; sacrococcygeal decubitus, status post resection and skin flap done at ; the patient has history of sleep apnea; obesity; pulmonary embolism; hypertension; atrial fibrillation; hyperlipidemia; has had colostomy done; cholecystectomy; urinary retention for which he does self-cath; the patient also has bilateral hip and bilateral knee replacement done in the past. SOCIAL HISTORY: Negative for smoking, alcohol use or drug use. The patient lives at home with . ALLERGIES: LISTED ALLERGIC TO CEPHALEXIN; AFTER SEVERAL DAYS, HE SAYS IT CAUSES RASH. REVIEW OF SYSTEMS: As per HPI, all other systems reviewed are negative. PHYSICAL EXAMINATION: GENERAL: Alert and oriented gentleman, not in distress. VITAL SIGNS: Stable. The patient has been afebrile here. HEENT: Both pupils are round and reacting. No conjunctival lesion. No lesion in the mouth. NECK: Supple. No JVP. No lymphadenopathy. LUNGS: Clear. HEART: S1, S2, regular. ABDOMEN: Soft, nontender. No organomegaly. EXTREMITIES: Right knee is red, hot and swollen. Right calcaneal wound is very small, superficial; there are no signs of infection there. SKIN: Rest of the skin examination is unremarkable. NEUROLOGIC: The patient is paraplegic. LABORATORY DATA: White count is 12.1. BUN and creatinine are normal. Liver functions are normal. Urinalysis showed more than 40 wbc's. IMAGING STUDIES: X-ray of the chest negative, knee noted, and foot negative. IMPRESSION: 1. Fever for 2 weeks, most likely coming from infected prosthetic right knee. 2. Leukocytosis. 3. Minor wound in the right calcaneum. 4. Transverse myelitis. 5. 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 6. Urinary abnormality; the patient does self-cath 4 times a day for urinary retention. RECOMMENDATIONS: Discontinue all antibiotics. Either Dr. Sharif can put a needle into the knee and/or Radiology can put a needle into the knee for cell count, bacterial, fungal and AFB stain and culture, and we will follow the blood cultures and continue to adjust. Thank you very much, Dr. Govea, for giving me the opportunity to participate in this patient's care. STEVENSON OLSON MD DR: MARY JO/sen JOB#: [id number] / [id number]
[2020-07-08 11:00] VITALS: BP 122/75
--- NOTE | 2020-07-08 11:35 | PDOC ---
[employer] PROGRESS NOTE Date of Service DOS: DATE: 07/08/20 TIME: 11:28 Chief Complaint Chief Complaint Persistent fevers and right knee effusion History of Present Illness History of Present Illness 07-08-20 - Pt seen and examined at bedside. - Jesus RN and home health care case manager. - Chart reviewed. - Pt has a right heel brace. Vitals/I&O Vitals/I&O: Vital Signs Date Time Temp Pulse Resp B/P (MAP) Pulse Ox O2 Delivery O2 Flow Rate FiO2 07/08/20 08:47 98 117/70 07/08/20 08:00 98.1 19 92 Room Air 98.1 I & O 07/07/20 07/07/20 07/08/20 15:00 23:00 07:00 Intake Total 480 ml Output Total 1300 ml 1490 ml Balance -820 ml -1490 ml Physical Exam General: Alert, Oriented X3, Cooperative Heart: Regular rate, Normal S1, Normal S2 Lungs: Clear Abdomen: Normal bowel sounds, Soft, No tenderness Extremities: No clubbing, No cyanosis Skin: No rashes, No breakdown Labs Labs: Laboratory Tests Test 07/07/20 14:15 07/07/20 16:15 07/08/20 07:29 Urine Collection Type Unknown Urine Color Yellow Urine Clarity Clear Urine pH 5.0 (<5.0-8.0) Urine Specific [place] 1.010 (1.000-1.030) Urine Protein Negative mg/dL (NEG-TRACE) Urine Glucose (UA) Negative mg/dL (NEG) Urine Ketones (Stick) Negative mg/dL (NEG) Urine Blood Negative (NEG) Urine Nitrite Negative (NEG) Urine Bilirubin Negative (NEG) Urine Urobilinogen Dipstick 0.2 mg/dL (0.2 mg/dL) Urine Leukocyte Esterase Large (NEG) Urine RBC Rare /HPF (0-2) Urine WBC >40 /HPF (0-4) Urine Squamous Epithelial Cells Occ /LPF Urine Bacteria Few /HPF (0-FEW) White Blood Count 12.1 x10^3/uL (4.0-11.0) 11.0 x10^3/uL (4.0-11.0) Red Blood Count 4.20 x10^6/uL (4.30-5.70) 3.92 x10^6/uL (4.30-5.70) Hemoglobin 12.3 g/dL (13.0-17.5) 11.6 g/dL (13.0-17.5) Hematocrit 37.2 % (39.0-53.0) 34.7 % (39.0-53.0) Mean Corpuscular Volume 89 fL (79-100) 89 fL (79-100) Mean Corpuscular Hemoglobin 29 pg (25-35) 30 pg (25-35) Mean Corpuscular Hemoglobin Concent 33 g/dL (31-37) 33 g/dL (31-37) Red Cell Distribution Width 13.9 % (11.5-14.5) 13.5 % (11.5-14.5) Platelet Count 362 x10^3/uL (140-400) 352 x10^3/uL (140-400) Neutrophils (%) (Auto) 75 % (31-73) 77 % (31-73) Lymphocytes (%) (Auto) 14 % (24-48) 11 % (24-48) Monocytes (%) (Auto) 7 % (0-9) 7 % (0-9) Eosinophils (%) (Auto) 4 % (0-3) 4 % (0-3) Basophils (%) (Auto) 1 % (0-3) 1 % (0-3) Neutrophils # (Auto) 9.1 x10^3/uL (1.8-7.7) 8.5 x10^3/uL (1.8-7.7) Lymphocytes # (Auto) 1.6 x10^3/uL (1.0-4.8) 1.2 x10^3/uL (1.0-4.8) Monocytes # (Auto) 0.8 x10^3/uL (0.0-1.1) 0.8 x10^3/uL (0.0-1.1) Eosinophils # (Auto) 0.5 x10^3/uL (0.0-0.7) 0.4 x10^3/uL (0.0-0.7) Basophils # (Auto) 0.1 x10^3/uL (0.0-0.2) 0.1 x10^3/uL (0.0-0.2) Sodium Level 138 mmol/L (136-145) 137 mmol/L (136-145) Potassium Level 4.7 mmol/L (3.5-5.1) 4.4 mmol/L (3.5-5.1) Chloride Level 103 mmol/L (98-107) 104 mmol/L (98-107) Carbon Dioxide Level 24 mmol/L (21-32) 22 mmol/L (21-32) Anion Gap 11 (6-14) 11 (6-14) Blood Urea Nitrogen 22 mg/dL (8-26) 20 mg/dL (8-26) Creatinine 0.9 mg/dL (0.7-1.3) 0.8 mg/dL (0.7-1.3) Estimated GFR (Cockcroft-Gault) 84.2 96.4 BUN/Creatinine Ratio 24 (6-20) Glucose Level 111 mg/dL (70-99) 99 mg/dL (70-99) Calcium Level 9.1 mg/dL (8.5-10.1) 8.5 mg/dL (8.5-10.1) Total Bilirubin 0.4 mg/dL (0.2-1.0) Aspartate Amino Transf (AST/SGOT) 18 U/L (15-37) Alanine Aminotransferase (ALT/SGPT) 37 U/L (16-63) Alkaline Phosphatase 103 U/L (46-116) Total Protein 6.7 g/dL (6.4-8.2) Albumin 2.7 g/dL (3.4-5.0) Albumin/Globulin Ratio 0.7 (1.0-1.7) Phosphorus Level 3.7 mg/dL (2.6-4.7) Magnesium Level 2.3 mg/dL (1.8-2.4) Review of Systems Review of Systems: Pt has a swollen right knee and right heel brace. No headaches or dizziness. No rashes or itching. No vomiting or diarrhea. Assessment and Plan Assessmemt and Plan Assessment: 1. Persistent fevers 2. Right knee effusion 3. Right heel wound Plan: 1. Await ortho to perform right knee arthrocentesis 2. Antibiotics per ID 3. DVT prophylaxis 4. Cont monitoring 5. Trend labs 6. Appreciate specialist input Comment Review of Relevant I have reviewed the following items franc (where applicable) has been applied. Medications: Current Medications Medications (Trade) Dose Ordered Sig/Didi Route PRN Reason Start Time Stop Time Status Last Admin Dose Admin Vancomycin HCl (Vanco Per Pharmacy) 1 each PRN DAILY PRN MC SEE COMMENTS 07/07/20 15:00 07/08/20 08:46 DC 07/07/20 17:55 Cefepime HCl (Maxipime) 2 gm Q24H IVP 07/07/20 16:00 07/07/20 18:01 DC 07/07/20 17:35 Vancomycin HCl 2 gm/Sodium Chloride 500 ml @ 250 mls/hr 1X ONCE IV 07/07/20 16:00 07/07/20 17:59 DC 07/07/20 17:34 Apixaban (Eliquis) 5 mg BID PO 07/07/20 21:00 07/08/20 08:46 Ascorbic Acid (Vitamin C) 500 mg DAILY PO 07/08/20 09:00 07/08/20 08:46 Gabapentin (Neurontin) 300 mg TID PO 07/07/20 21:00 07/08/20 08:46 Oxybutynin Chloride (Ditropan) 5 mg BID PO 07/07/20 21:00 07/08/20 08:46 Polyethylene Glycol (miraLAX PACKET) 17 gm DAILY PO 07/08/20 09:00 07/08/20 08:46 Sennosides (Senna) 8.6 mg BID PO 07/07/20 21:00 07/08/20 08:46 Metoprolol Succinate (Toprol Xl) 50 mg DAILY PO 07/08/20 09:00 07/08/20 08:47 Atorvastatin Calcium (Lipitor) 40 mg QHS PO 07/07/20 21:00 07/07/20 21:27 Vancomycin HCl 1.5 gm/Sodium Chloride 500 ml @ 250 mls/hr Q12H IV 07/08/20 05:30 07/08/20 08:38 DC 07/08/20 05:22 Justifications for Admission Other Justification TATIANA SCHAEFFER III DO Jul 08, 2020 11:35
[2020-07-08 13:47] LABS: BF SOURCE SYNOVIAL
[2020-07-08 13:48] LABS: BF CLARITY HAZY; BF COLOR YELLOW; BF MON % 0 %; BF OTHER % 0 %; BF PMN % 100 %; BF RBC COUNT 1780 /cmm (Not Established); BF WBC COUNT 900 /cmm (Not Established)
--- NOTE | 2020-07-08 14:57 | PDOC2 ---
GI CONSULT Date of Service: DATE: 07/08/20 TIME: 14:43 Reason For Consult: abdominal distention, loose stools HPI: HPI: Pleasant 65 y/o male who we've seen in the past. Sent from wound clinic for fevers. ID following, s/p right knee aspiration. GI-joseph, abdomen is distended and feels pressure across mid/lower abdomen and across back. Fairly constant feeling, not really worse after eating. Less ostomy output than normal. Gas-X and Tums didn't help at home. Occasional mild heartburn. No dysphagia, n/v, bleeding, or diarrhea. Has gained weight. H/o recurrent C Diff. Also had bowel training/rehab in the past. No previous EGD or colonoscopy. S/p diverting colostomy for sacral decub. S/p cholecystectomy for stones. No liver, pancreas, or PUD history. Hepatic cysts on past CT. No NSAIDs. Negative DEE in 2019, normal B12 in 2019. Mild anemia on some past labs. COVID negative on 06/26 (?as outpt). H/o PE on Eliquis. PMH: PMH: HTN, HLD, transverse myelitis/paraplegia, neurogenic bladder, UTI, C Diff, PE, sacral decub cholecystectomy, bilateral hip and knee replacements, lumbar laminectomy, diverting colostomy, heel debridement, wound flap FH: Family History: Other (father - ulcer age 30) Social History: Smoke: No ALCOHOL: none (occasional in the past, none since 06/2018) Drugs: None ROS: GEN: Denies fevers, chills, sweats HEENT: Denies blurred vision, sore throat CV: Denies chest pain RESP: Denies shortness of air, cough GI: Per HPI : Denies hematuria, dysuria ENDO: Denies weight changes NEURO: Denies confusion, dizziness MSK: Denies weakness, joint pain/swelling SKIN: Denies jaundice, pruritus Vitals: Vitals: Vital Signs Date Time Temp Pulse Resp B/P (MAP) Pulse Ox O2 Delivery O2 Flow Rate FiO2 07/08/20 11:00 98.4 89 19 122/75 (91) 93 Room Air 98.4 Labs: Labs: Laboratory Tests Test 07/07/20 16:15 07/08/20 07:29 07/08/20 11:42 White Blood Count 12.1 x10^3/uL (4.0-11.0) 11.0 x10^3/uL (4.0-11.0) Red Blood Count 4.20 x10^6/uL (4.30-5.70) 3.92 x10^6/uL (4.30-5.70) Hemoglobin 12.3 g/dL (13.0-17.5) 11.6 g/dL (13.0-17.5) Hematocrit 37.2 % (39.0-53.0) 34.7 % (39.0-53.0) Mean Corpuscular Volume 89 fL (79-100) 89 fL (79-100) Mean Corpuscular Hemoglobin 29 pg (25-35) 30 pg (25-35) Mean Corpuscular Hemoglobin Concent 33 g/dL (31-37) 33 g/dL (31-37) Red Cell Distribution Width 13.9 % (11.5-14.5) 13.5 % (11.5-14.5) Platelet Count 362 x10^3/uL (140-400) 352 x10^3/uL (140-400) Neutrophils (%) (Auto) 75 % (31-73) 77 % (31-73) Lymphocytes (%) (Auto) 14 % (24-48) 11 % (24-48) Monocytes (%) (Auto) 7 % (0-9) 7 % (0-9) Eosinophils (%) (Auto) 4 % (0-3) 4 % (0-3) Basophils (%) (Auto) 1 % (0-3) 1 % (0-3) Neutrophils # (Auto) 9.1 x10^3/uL (1.8-7.7) 8.5 x10^3/uL (1.8-7.7) Lymphocytes # (Auto) 1.6 x10^3/uL (1.0-4.8) 1.2 x10^3/uL (1.0-4.8) Monocytes # (Auto) 0.8 x10^3/uL (0.0-1.1) 0.8 x10^3/uL (0.0-1.1) Eosinophils # (Auto) 0.5 x10^3/uL (0.0-0.7) 0.4 x10^3/uL (0.0-0.7) Basophils # (Auto) 0.1 x10^3/uL (0.0-0.2) 0.1 x10^3/uL (0.0-0.2) Sodium Level 138 mmol/L (136-145) 137 mmol/L (136-145) Potassium Level 4.7 mmol/L (3.5-5.1) 4.4 mmol/L (3.5-5.1) Chloride Level 103 mmol/L (98-107) 104 mmol/L (98-107) Carbon Dioxide Level 24 mmol/L (21-32) 22 mmol/L (21-32) Anion Gap 11 (6-14) 11 (6-14) Blood Urea Nitrogen 22 mg/dL (8-26) 20 mg/dL (8-26) Creatinine 0.9 mg/dL (0.7-1.3) 0.8 mg/dL (0.7-1.3) Estimated GFR (Cockcroft-Gault) 84.2 96.4 BUN/Creatinine Ratio 24 (6-20) Glucose Level 111 mg/dL (70-99) 99 mg/dL (70-99) Calcium Level 9.1 mg/dL (8.5-10.1) 8.5 mg/dL (8.5-10.1) Total Bilirubin 0.4 mg/dL (0.2-1.0) Aspartate Amino Transf (AST/SGOT) 18 U/L (15-37) Alanine Aminotransferase (ALT/SGPT) 37 U/L (16-63) Alkaline Phosphatase 103 U/L (46-116) Total Protein 6.7 g/dL (6.4-8.2) Albumin 2.7 g/dL (3.4-5.0) Albumin/Globulin Ratio 0.7 (1.0-1.7) Phosphorus Level 3.7 mg/dL (2.6-4.7) Magnesium Level 2.3 mg/dL (1.8-2.4) Body Fluid Source Synovial Body Fluid Color Yellow Body Fluid Clarity Hazy Body Fluid Nucleated Cells 900 /cmm (Not Established) Body Fluid Mononuclear WBCs (%) 0 % Body Fluid Polymorphonuclear Cells 100 % Body Fluid Total RBCs Counted 1780 /cmm (Not Established) Body Fluid Other Cells (%) 0 % Allergies: Coded Allergies: cephalexin (Verified Allergy, Intermediate, rash, 04/09/19) Medications: Current Medications Medications (Trade) Dose Ordered Sig/Didi Route PRN Reason Start Time Stop Time Status Last Admin Dose Admin Vancomycin HCl (Vanco Per Pharmacy) 1 each PRN DAILY PRN MC SEE COMMENTS 07/07/20 15:00 07/08/20 08:46 DC 07/07/20 17:55 Cefepime HCl (Maxipime) 2 gm Q24H IVP 07/07/20 16:00 07/07/20 18:01 DC 07/07/20 17:35 Vancomycin HCl 2 gm/Sodium Chloride 500 ml @ 250 mls/hr 1X ONCE IV 07/07/20 16:00 07/07/20 17:59 DC 07/07/20 17:34 Apixaban (Eliquis) 5 mg BID PO 07/07/20 21:00 07/08/20 08:46 Ascorbic Acid (Vitamin C) 500 mg DAILY PO 07/08/20 09:00 07/08/20 08:46 Gabapentin (Neurontin) 300 mg TID PO 07/07/20 21:00 07/08/20 08:46 Oxybutynin Chloride (Ditropan) 5 mg BID PO 07/07/20 21:00 07/08/20 08:46 Polyethylene Glycol (miraLAX PACKET) 17 gm DAILY PO 07/08/20 09:00 07/08/20 08:46 Sennosides (Senna) 8.6 mg BID PO 07/07/20 21:00 07/08/20 08:46 Metoprolol Succinate (Toprol Xl) 50 mg DAILY PO 07/08/20 09:00 07/08/20 08:47 Atorvastatin Calcium (Lipitor) 40 mg QHS PO 07/07/20 21:00 07/07/20 21:27 Vancomycin HCl 1.5 gm/Sodium Chloride 500 ml @ 250 mls/hr Q12H IV 07/08/20 05:30 07/08/20 08:38 DC 07/08/20 05:22 Imaging: Imaging: Foot X-Ray IMPRESSION: 1. Deformity of the distal fifth metatarsal suggests a fracture but is of uncertain age. 2. Gross osteopenia which could be secondary to disuse atrophy. Knee X-Ray IMPRESSION: Right knee: 2 views obtained. Status post knee arthroplasty changes. No periprosthetic fracture or dislocation. Soft tissue swelling is seen. There is a large knee joint effusion identified with displacement of the patella anteriorly. Both sterile effusions such as hemarthrosis as well as infected effusion is within the differential and cannot be differentiated on plain film. CXR IMPRESSION: 1. No confluent infiltrates. PE: GEN: NAD HEENT: Atraumatic, PERRL LUNGS: CTAB HEART: RRR ABD: large/distended but soft, +BS, ostomy LLQ w/ small amount of brown stool EXTREMITY: BLE edema SKIN: No rashes, no jaundice NEURO/PSYCH: A & O 3 A/P: A/P: Fevers Mild normocytic anemia (stable), ?UTI Abdominal distention, change in ostomy output Occasional heartburn CRC screen - none H/o C Diff S/p cholecystectomy Hepatic cysts on past CT Transverse myelitis w/ paraplegia, neurogenic bladder, chronic wounds, s/p diverting colostomy H/o PE on Eliquis -- Check KUB. Try pantoprazole and Relistor. YOHANA GUNTER Jul 08, 2020 14:57
[2020-07-08 15:00] VITALS: BP 126/72
[2020-07-08] MEDS ORDERED: METHYLNALTREXONE 12 MG/0.6 ML VIAL. SQ ONE (15:00)
[2020-07-08] MEDS: PANTOPRAZOLE 40 MG TABLET.DR. PO SCH (16:22)
--- NOTE | 2020-07-08 17:05 | RAD ---
One view abdomen 3:16 PM HISTORY: Abdominal distention Supine AP view abdomen pelvis There is prior bilateral total hip arthroplasty. There is air scattered throughout portions the colon . There is relative paucity small bowel gas. As no obvious free air. IMPRESSION: Nonobstructive bowel gas pattern. Electronically signed by: Steve Hoskins III, MD (07/08/2020 5:03 PM) [facility]
[2020-07-08 19:00] VITALS: BP 129/71
[2020-07-08] MEDS: ATORVASTATIN CALCIUM 40 MG TABLET. PO SCH (20:48)
[2020-07-08] MEDS: SENNOSIDES 8.6 MG TABLET PO PRN (20:48)
[2020-07-08] MEDS: VANCOMYCIN 1.5 GM in IV NORMAL SALINE 500ML BAG 500 ML IV SCH (20:50)
[2020-07-08] MEDS: CEFEPIME HCL IV Push 2 GM VIAL. IVP SCH (20:52)
[2020-07-08 23:11] VITALS: BP 127/71
[2020-07-09 03:00] VITALS: BP 127/77
[2020-07-09 07:00] VITALS: BP 120/80
[2020-07-09] MEDS: PANTOPRAZOLE 40 MG TABLET.DR. PO SCH (07:47)
[2020-07-09] MEDS: VANCOMYCIN 1.5 GM in IV NORMAL SALINE 500ML BAG 500 ML IV SCH (08:00)
--- NOTE | 2020-07-09 08:00 | NUR ---
Wound/Ostomy Care Wound Type/Assessment: Pt seen per wound care follow up. Pt is known to us from the clinic. Pt has stage IV PU to right heel. Wound cleansed and assessed. Dr. Napoles at bedside with me to see patient. Treatment Recommendations/Plan: Recommendations to continue with Hydrofera Blue and foam dressing. Change on Sunday. Dressing applied. Education provided: Pt educated on dressing changes and PU prevention. Offloading surface/device: Pt is on a P-500 bed with bilateral heel medix in place. Turn every 2 hours and purple wedge in room. Pt eating breakfast at this time. Recommended Referrals/Tests: N/A Discharge Recommendations for dressings: Continue current treatment. Pt will follow up in the wound clinic after discharge. No other wounds noted. Bed lowered and call light in reach. Wound care will follow up with patient.
[2020-07-09 08:17] LABS: CALCIUM 8.7 mg/dL (8.5-10.1); CREATININE 0.7 mg/dL (0.7-1.3); GFR 112.5; POTASSIUM 4.3 mmol/L (3.5-5.1)
[2020-07-09 08:23] LABS: VANC TR 20.4 mcg/mL (10.0-20.0)
--- NOTE | 2020-07-09 08:38 | PDOC ---
Infectious Disease Note Subjective Subjective pt is feeling better, no fever , though has abd discomfort ROS ROS no n/v/d/ Vital Sign Vital Signs Vital Signs Date Time Temp Pulse Resp B/P (MAP) Pulse Ox O2 Delivery O2 Flow Rate FiO2 07/09/20 07:00 98.6 84 18 120/80 (93) 93 Room Air 98.6 Physical Exam PHYSICAL EXAM GENERAL: Alert and oriented gentleman, not in distress. VITAL SIGNS: Stable. The patient has been afebrile here. HEENT: Both pupils are round and reacting. No conjunctival lesion. No lesion in the mouth. NECK: Supple. No JVP. No lymphadenopathy. LUNGS: Clear. HEART: S1, S2, regular. ABDOMEN: Soft, nontender. No organomegaly. EXTREMITIES: Right knee is red, hot and swollen. Right calcaneal wound is very small, superficial; there are no signs of infection there. SKIN: Rest of the skin examination is unremarkable. NEUROLOGIC: The patient is paraplegic. Labs Lab Laboratory Tests Test 07/08/20 11:42 07/09/20 07:50 Body Fluid Source Synovial Body Fluid Color Yellow Body Fluid Clarity Hazy Body Fluid Nucleated Cells 900 /cmm (Not Established) Body Fluid Mononuclear WBCs (%) 0 % Body Fluid Polymorphonuclear Cells 100 % Body Fluid Total RBCs Counted 1780 /cmm (Not Established) Body Fluid Other Cells (%) 0 % Sodium Level 139 mmol/L (136-145) Potassium Level 4.3 mmol/L (3.5-5.1) Chloride Level 106 mmol/L (98-107) Carbon Dioxide Level 23 mmol/L (21-32) Anion Gap 10 (6-14) Blood Urea Nitrogen 20 mg/dL (8-26) Creatinine 0.7 mg/dL (0.7-1.3) Estimated GFR (Cockcroft-Gault) 112.5 Glucose Level 101 mg/dL (70-99) Calcium Level 8.7 mg/dL (8.5-10.1) Vancomycin Level Trough 20.4 mcg/mL (10.0-20.0) Vancomycin Last Dose Date 07/08/20 Vancomycin Last Dose Time 1999 Micro Microbiology 07/07/20 Gram Stain - Final, Resulted 07/07/20 Aerobic and Anaerobic Culture, Resulted Pending Objective Assessment IMPRESSION: 1. Fever for 2 weeks, most likely coming from infected prosthetic right knee. s/p aspiration, though pt had received antibiotics 2. Leukocytosis. 3. Minor wound in the right calcaneum. 4. Transverse myelitis. 5. 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 6. Urinary abnormality; the patient does self-cath 4 times a day for urinary retention. Plan Plan of Care vanc and fransisco check cultures ct STEVENSON Peña MD Jul 09, 2020 08:38
[2020-07-09] MEDS ORDERED: CONTRAST GIVEN. MC PRN (09:00)
[2020-07-09] MEDS ORDERED: IOHEXOL 240 MG/ML 50ML VIAL. PO ONE (09:00)
[2020-07-09] MEDS ORDERED: IOHEXOL 300 MG/ML 100ML VIAL. IV ONE (09:00)
[2020-07-09] MEDS: APIXABAN 5 MG TABLET. PO SCH ×2 (09:19→20:26)
[2020-07-09] MEDS: GABAPENTIN 300 MG CAPSULE. PO SCH ×3 (09:19→20:26)
[2020-07-09] MEDS: ASCORBIC ACID 500 MG TABLET PO SCH (09:19)
[2020-07-09] MEDS: METOPROLOL SUCC 24HR ER 50 MG TAB.ER.24H. PO SCH (09:19)
[2020-07-09] MEDS: SENNOSIDES 8.6 MG TABLET PO SCH ×2 (09:19→20:25)
[2020-07-09] MEDS: OXYBUTYNIN CHLORIDE 5 MG TABLET PO SCH ×2 (09:19→20:26)
[2020-07-09] MEDS: POLYETHYLENE GLYCOL 3350 17 GM PACKET. PO SCH (09:20)
[2020-07-09] MEDS: CEFEPIME HCL IV Push 2 GM VIAL. IVP SCH ×2 (09:22→21:49)
[2020-07-09] MEDS: VANCOMYCIN PER PHARMACY MC PRN (09:25)
--- NOTE | 2020-07-09 09:26 | NUR ---
Pharmacy Vancomycin Dosing Note S:Consulted to monitor and dose vancomycin started 07/07/20. O:DONAVON TRAVIS is a 65 year old M with Empiric possible infected TKA . Height: 6 feet, 0 inches Weight: 130.148374 kg [place] Body Weight: 77.60 Adjusted Body Weight: 98.92 Dosing Weight: Actual Other Antibiotics: Cefepime LABS: Last BUN: 20 Last Creatinine: 0.7 Creatinine Clearance: 94 mL/min Last WBC: 11 Last Procalcitonin: Tmax (past 24 hours): 98.1 Microbiology: Foot wound: no organisms seen I/O: Drug Levels: Last Trough level: 20.4 on 07/09/20 at 0750 Last dose given 07/08/20 at 2050 Vancomycin Dosing: Loading Dose: 2000 mg x1 Dosing Weight: Actual Target Trough: 15-20 A: Based on: SUPRATHERAPEUTIC TROUGH P: 1. CHANGED DOSE TO Vancomycin 1250 mg IV q12h 2. Follow up Trough level on 07/10 2229 3. Pharmacy will continue to monitor, follow and adjust therapy as needed. LINDSAY VALENTINE RPH, 07/09/20 0945
--- NOTE | 2020-07-09 09:28 | PDOC ---
Progress Note-Wound Care SUBJECTIVE This is a 65-year-old patient well-known to the wound care center where he is followed for stage IV pressure ulcer to the right hindfoot. He was recently admitted for fever and finding of redness and swelling to the right knee. Currently followed by orthopedics and infectious disease. Wound care service will evaluate and follow the right foot plantar ulcer. Patient is not aware of unusual drainage, odor or redness at the site. Patient is paraplegic as a result of transverse myelitis. OBJECTIVE Vital Signs Vital Signs Date Time Temp Pulse Resp B/P (MAP) Pulse Ox O2 Delivery O2 Flow Rate FiO2 07/08/20 08:00 Room Air 07/08/20 08:00 98.1 98 19 117/70 (86) 92 98.1 Vital Signs Date Time Temp Pulse Resp B/P (MAP) Pulse Ox O2 Delivery O2 Flow Rate FiO2 07/09/20 07:00 98.6 84 18 120/80 (93) 93 Room Air 98.6 Physical Exam: Patient appears comfortable and is eating and seated position. No recent fevers reported. Respirations are nondistressed. ASSESSMENT Stage IV pressure ulcer right heel with wound description below. ROS ROS: Mild abdominal distention is reported this morning. WOUND Location of Modifier: Right Wound Location: Plantar Body Site: Heel Associated Signs/Symptoms: None Drainage Amount: Scant Drainage Description: Serosanguineous Odor: None/Absent Surrounding Tissue Appearance: pink Wound Description: muscle Bone/Muscle/Tendon Exposed: Yes (This is a healing continuation of previous stage IV pressure ulcer.) Stage: 4 Length cm.: 0.5 Width cm.: 0.6 Wound Depth cm.: 0.4 Tunneling: Absent Wound Undermining (CM): 0 Granulation % 90% Hypergranulation % 0 Fibrin % 0 Eschar % 0 Improvement: Better PLAN See orders as above. No evidence of deep underlying tissue at this time. FOLLOW-UP Upon discharge we will continue to follow in the clinic. SONNY WOODALL DO Jul 09, 2020 09:28
--- NOTE | 2020-07-09 09:43 | NUR ---
IRENE following. Discussed with RN, pt from home with and [facility]. No therapy needs as pt is a paraplegic and cares for him at home. Pt having a CT of abd/pelvis today. IRENE will continue to follow. Addendum: 07/09/20 at 1355 by MAGNOLIA BONILLA IRENE faxed clinicals to [facility].
--- NOTE | 2020-07-09 10:31 | PDOC ---
Date of Service: DATE: 07/09/20 TIME: 10:26 Subjective: Subjective: Stooled some after Relistor - no change in abdominal pressure. Tolerating diet - no change in abdominal pressure after eating. Has felt this way for several days, uncomfortable. Objective: Objective: D/w nurse - plans for CT per ID. Vital Signs: Vital Signs Date Time Temp Pulse Resp B/P (MAP) Pulse Ox O2 Delivery O2 Flow Rate FiO2 07/09/20 09:19 84 120/80 07/09/20 07:00 98.6 18 93 Room Air 98.6 Labs: Laboratory Tests Test 07/08/20 11:42 07/09/20 07:50 Body Fluid Source Synovial Body Fluid Color Yellow Body Fluid Clarity Hazy Body Fluid Nucleated Cells 900 /cmm Body Fluid Mononuclear WBCs (%) 0 % Body Fluid Polymorphonuclear Cells 100 % Body Fluid Total RBCs Counted 1780 /cmm Body Fluid Other Cells (%) 0 % Sodium Level 139 mmol/L Potassium Level 4.3 mmol/L Chloride Level 106 mmol/L Carbon Dioxide Level 23 mmol/L Anion Gap 10 Blood Urea Nitrogen 20 mg/dL Creatinine 0.7 mg/dL Estimated GFR (Cockcroft-Gault) 112.5 Glucose Level 101 mg/dL Calcium Level 8.7 mg/dL Vancomycin Level Trough 20.4 mcg/mL Vancomycin Last Dose Date 07/08/20 Vancomycin Last Dose Time 1999 GRAM STAIN Final Final NO ORGANISMS SEEN. SQUAMOUS EPI CELL:NONE SEEN PMN (WBCs):NONE SEEN Unless otherwise specified, Testing Performed by: [address] [id number] For Inquires, the Physician may contact the Microbiology department at [phone] ANAEROBIC-AEROBIC CULTURE Preliminary Preliminary FEW Mixed skin dima isolated on 07/09/20 at 0842 Unless otherwise specified, Testing Performed by: [address] [address] For Inquires, the Physician may contact the Microbiology department at [phone] GRAM STAIN Final Final NO ORGANISMS SEEN. SQUAMOUS EPI CELL:NONE SEEN PMN (WBCs):MANY Unless otherwise specified, Testing Performed by: [address] [id number] For Inquires, the Physician may contact the Microbiology department at [phone] ANAEROBIC-AEROBIC CULTURE Preliminary Preliminary No Growth on 07/09/20 at 0844 Unless otherwise specified, Testing Performed by: [facility] [address] [place] [address] For Inquires, the Physician may contact the Microbiology department at [phone] URINE CULTURE Preliminary Preliminary 40,000 CFU/ML GRAM NEGATIVE RODS on 07/09/20 at 0742 FINAL ID= [PROTEUS MIRABILIS] PE: GEN: NAD LUNGS: CTAB HEART: RRR ABD: NABS, distended, some tenderness around ostomy and periumbilical region, soft/liquid brown stool in LLQ ostomy bad NEURO/PSYCH: A & O 3 A/P: Fevers (not here), UTI, ?right knee infection Abdominal pressure Transverse myelitis w/ paraplegia, neurogenic bladder, chronic wounds, s/p diverting colostomy -- Stooled after Relistor, ongoing abdominal discomfort. Await CT. Justicifation of Admission Dx: Justifications for Admission: Justification of Admission Dx: N/A Sepsis: Parenteral Antimicrobial Cellulitis: Cellulitis YOHANA GUNTER Jul 09, 2020 10:31
[2020-07-09 11:00] VITALS: BP 120/80
[2020-07-09] MEDS: VANCOMYCIN 1.25 GM in IV NORMAL SALINE 250ML 250 ML IV SCH ×2 (11:09→22:15)
--- NOTE | 2020-07-09 12:07 | PDOC ---
[facility] PROGRESS NOTE Date of Service DOS: DATE: 07/09/20 TIME: 12:00 Chief Complaint Chief Complaint Persistent fevers and right knee effusion History of Present Illness History of Present Illness 07-08-20 - Pt seen and examined at bedside. - Jesus RN and patient case coordinator. - Chart reviewed. - Pt has a right heel brace. 07-09-20 - Pt seen and examined at bedside. - Jesus RN and patient case coordinator. - Chart reviewed. - Pt has a right heel brace and colostomy bag. Vitals/I&O Vitals/I&O: Vital Signs Date Time Temp Pulse Resp B/P (MAP) Pulse Ox O2 Delivery O2 Flow Rate FiO2 07/09/20 11:00 98.6 84 18 120/80 (93) 93 Room Air 98.6 I & O 07/08/20 07/08/20 07/09/20 15:00 23:00 07:00 Intake Total 200 ml 240 ml 120 ml Output Total 700 ml 1800 ml 675 ml Balance -500 ml -1560 ml -555 ml Physical Exam Physical Exam: GENERAL: Alert and oriented gentleman, not in distress. VITAL SIGNS: Stable. The patient has been afebrile here. HEENT: Both pupils are round and reacting. No conjunctival lesion. No lesion in the mouth. NECK: Supple. No JVP. No lymphadenopathy. LUNGS: Clear. HEART: S1, S2, regular. ABDOMEN: Soft, nontender. No organomegaly. EXTREMITIES: Right knee is red, hot and swollen. Right calcaneal wound is very small, superficial; there are no signs of infection there. SKIN: Rest of the skin examination is unremarkable. NEUROLOGIC: The patient is paraplegic. General: Alert, Oriented X3, Cooperative Heart: Regular rate, Normal S1, Normal S2 Lungs: Clear Abdomen: Normal bowel sounds, Soft, No tenderness Extremities: No clubbing, No cyanosis Skin: No rashes, No breakdown Labs Labs: Laboratory Tests Test 07/09/20 07:50 Sodium Level 139 mmol/L (136-145) Potassium Level 4.3 mmol/L (3.5-5.1) Chloride Level 106 mmol/L (98-107) Carbon Dioxide Level 23 mmol/L (21-32) Anion Gap 10 (6-14) Blood Urea Nitrogen 20 mg/dL (8-26) Creatinine 0.7 mg/dL (0.7-1.3) Estimated GFR (Cockcroft-Gault) 112.5 Glucose Level 101 mg/dL (70-99) Calcium Level 8.7 mg/dL (8.5-10.1) Vancomycin Level Trough 20.4 mcg/mL (10.0-20.0) Vancomycin Last Dose Date 07/08/20 Vancomycin Last Dose Time 1999 Review of Systems Review of Systems: No headaches or dizziness. No rashes or itching. No SOA or chest pain. Assessment and Plan Assessmemt and Plan Assessment: 1. Right knee effusion 2. Persistent fevers 3. Right heel wound Plan: 1. Awaiting CT results of abdomen and pelvis 2. Awaiting arthrocentesis analysis 3. Cont IV antibiotics 4. Wound care 5. Appreciate specialist input Comment Review of Relevant I have reviewed the following items franc (where applicable) has been applied. Medications: Current Medications Medications (Trade) Dose Ordered Sig/Didi Route PRN Reason Start Time Stop Time Status Last Admin Dose Admin Methylnaltrexone [place] (Relistor) 12 mg 1X ONCE SQ 07/08/20 15:00 07/08/20 15:01 DC 07/08/20 16:22 Pantoprazole Sodium (Protonix) 40 mg DAILYAC PO 07/08/20 16:30 07/09/20 07:47 Vancomycin HCl (Vanco Per Pharmacy) 1 each PRN DAILY PRN MC SEE COMMENTS 07/08/20 19:30 07/09/20 09:25 Cefepime HCl (Maxipime) 2 gm Q12HR IVP 07/08/20 21:00 07/09/20 09:22 Vancomycin HCl 1.5 gm/Sodium Chloride 500 ml @ 250 mls/hr Q12H IV 07/08/20 20:00 07/09/20 09:14 DC 07/08/20 20:50 Vancomycin HCl (Vancomycin Trough Level) 1 each 1X ONCE MC 07/09/20 07:30 07/09/20 07:31 DC 07/09/20 07:30 Iohexol (Omnipaque 240 Mg/ml) 50 ml 1X ONCE PO 07/09/20 09:00 07/09/20 09:01 DC 07/09/20 09:00 Iohexol (Omnipaque 300 Mg/ml) 75 ml 1X ONCE IV 07/09/20 09:00 07/09/20 09:01 DC 07/09/20 09:00 Vancomycin HCl 1.25 gm/Sodium Chloride 250 ml @ 167 mls/hr Q12H IV 07/09/20 11:00 07/09/20 11:09 Justifications for Admission Other Justification TATIANA SCHAEFFER III DO Jul 09, 2020 12:07
--- NOTE | 2020-07-09 13:10 | RAD ---
EXAM: Abdomen and pelvis CT with intravenous contrast. HISTORY: Fever. TECHNIQUE: Computed tomographic images of the abdomen and pelvis were obtained following the administ ration of intravenous contrast. Multiplanar reformatting was performed. *One or more of the following individualized dose reduction techniques were utilized for this examina tion: 1. Automated exposure control. 2. Adjustment of the mA and/or kV according to patient size. 3. Use of iterative reconstruction technique. COMPARISON: 09/05/2018. FINDINGS: Evaluation of the lower thorax demonstrates bilateral posterior dependent atelectasis. The heart is normal in size. There is a small hiatal hernia. There are stable prominent distal esophageal lymph nodes. There are stable hepatic cysts. The gallbladder is absent. The pancreas, spleen and adr enal glands are unremarkable. The kidneys are unremarkable. There is no appendicitis. There is no bowel obstruction or abnormal bowel wall thickening. There is a left ventral abdominal wall colostomy. There is a suspected small focus of fat necrosis within the l eft ventral peritoneum. There are presacral clips and there is presacral stranding which is likely po st inflammatory. The aorta is normal in caliber. No lymphadenopathy is seen. There are bilateral hip arthroplasties. T hese result in streak artifact which limits evaluation of the lower pelvis. There are degenerative ch anges throughout the spine. There is a mild chronic wedge compression fracture of L2. There are rodolfo ectomy changes at the lumbosacral junction. IMPRESSION: 1. Findings consistent with partial colonic resection and left ventral abdominal wall colostomy forma tion. There are clips and there is fatty stranding within the presacral space which is likely postinf lammatory. There is a focus of suspected fat necrosis within the left ventral peritoneum. There is no evidence of acute colitis or alternative acute abdominal or pelvic finding. 2. Stable small hepatic cysts. Electronically signed by: Kelsie Starr MD (07/09/2020 1:07 PM) [facility]
[2020-07-09 15:00] VITALS: BP 131/72
[2020-07-09 19:00] VITALS: BP 126/73
[2020-07-09] MEDS: LACTOBACILLUS RHAMNOSUS GG 1 CAPSULE. PO SCH (20:26)
[2020-07-09] MEDS: ATORVASTATIN CALCIUM 40 MG TABLET. PO SCH (20:26)
[2020-07-09 23:00] VITALS: BP 121/77
[2020-07-10 03:18] VITALS: BP 106/68
[2020-07-10] MEDS: PANTOPRAZOLE 40 MG TABLET.DR. PO SCH (06:03)
[2020-07-10 07:29] VITALS: BP 127/70
--- NOTE | 2020-07-10 08:01 | PDOC ---
Infectious Disease Note Subjective Subjective pt is feeling better, no fever , though has abd discomfort No F/C/S/N/V/SOA Vital Sign Vital Signs Vital Signs Date Time Temp Pulse Resp B/P (MAP) Pulse Ox O2 Delivery O2 Flow Rate FiO2 07/10/20 07:29 98.3 84 18 127/70 (89) 97 Room Air 98.3 Physical Exam PHYSICAL EXAM GENERAL: Alert and oriented gentleman, not in distress. HEENT: Both pupils are round and reacting. No conjunctival lesion. No lesion in the mouth. NECK: Supple. No JVP. No lymphadenopathy. LUNGS: Clear. HEART: S1, S2, regular. ABDOMEN: Soft, nontender. No organomegaly. EXTREMITIES: Right knee is red, hot and swollen. Right calcaneal wound is very small, superficial; there are no signs of infection there. SKIN: Rest of the skin examination is unremarkable. NEUROLOGIC: The patient is paraplegic. Labs Micro IMPRESSION: 1. Findings consistent with partial colonic resection and left ventral abdominal wall colostomy formation. There are clips and there is fatty stranding within the presacral space which is likely postinflammatory. There is a focus of suspected fat necrosis within the left ventral peritoneum. There is no evidence of acute colitis or alternative acute abdominal or pelvic finding. 2. Stable small hepatic cysts. PROTEUS MIRABILIS ANTIBIOTIC RESULT INTERPRETATION AMPICILLIN/SULBACTAM <=4/2 S AMIKACIN <=16 S AMPICILLIN <=8 S AMOXICILLIN/K CLAVULANATE <=8/4 S AZTREONAM <=4 S CEFTRIAXONE <=1 S CEFTAZIDIME <=1 S CEFOTAXIME <=2 S CEFOXITIN <=8 S CIPROFLOXACIN <=0.25 S CEFEPIME <=2 S CEFUROXIME <=4 S CEFTAZIDIME/AVIBACTAM <=4 S ERTAPENEM <=0.5 S NITROFURANTOIN >64 R* GENTAMICIN <=2 S LEVOFLOXACIN <=0.5 S MEROPENEM <=1 S PIPERACILLIN/TAZOBACTAM <=8 S TRIMETHOPRIM/SULFAMETHOXAZOLE <=0.5/9.5 S TETRACYCLINE >8 R TOBRAMYCIN <=2 S Microbiology 07/08/20 Gram Stain - Final, Resulted 07/08/20 Aerobic and Anaerobic Culture - Preliminary, Resulted 07/07/20 Urine Culture - Preliminary, Resulted Objective Assessment IMPRESSION: 1. 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 s/p aspiration, though pt had received antibiotics - cults neg so far 2. Leukocytosis. 3. Minor wound in the right calcaneum. 4. Transverse myelitis. 5. 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 6. Urinary abnormality; the patient does self-cath 4 times a day for urinary - Proteus 7. Abnormal CT Plan Plan of Care vanc and zosyn F/u cultures ct abd - reviewed - have Gen surg eval F/u crystals Labs in am D/w nursing and MILIND Villela MD Jul 10, 2020 08:01
[2020-07-10] MEDS: SENNOSIDES 8.6 MG TABLET PO SCH ×2 (08:38→20:05)
[2020-07-10] MEDS: GABAPENTIN 300 MG CAPSULE. PO SCH ×3 (08:38→20:05)
[2020-07-10] MEDS: OXYBUTYNIN CHLORIDE 5 MG TABLET PO SCH ×2 (08:38→20:05)
[2020-07-10] MEDS: METOPROLOL SUCC 24HR ER 50 MG TAB.ER.24H. PO SCH (08:38)
[2020-07-10] MEDS: ASCORBIC ACID 500 MG TABLET PO SCH (08:38)
[2020-07-10] MEDS: LACTOBACILLUS RHAMNOSUS GG 1 CAPSULE. PO SCH ×2 (08:38→20:05)
[2020-07-10] MEDS: APIXABAN 5 MG TABLET. PO SCH ×2 (08:38→20:06)
--- NOTE | 2020-07-10 08:38 | CONS ---
DATE OF CONSULTATION: 07/08/2020 REQUESTING PHYSICIAN: Dr. Michael Govea. REASON FOR CONSULTATION: Right knee effusion and concern for possible septic knee. HISTORY OF PRESENT ILLNESS: The patient is a 65-year-old male who had total knee arthroplasties done a few years ago by Dr. Walker and notes that he has had a fever that has been on and off for a couple of weeks and some swelling of his right knee, he has also been cared for a right foot ulcer, which has been ongoing with nonoperative treatment and he is paraplegic for about the past 2 years or more because of transverse myelitis. He has no sensory or motor function in the legs and manages with self-catheterization and therefore he says he feels no pain in the legs associated with his right knee or the foot wound. PAST MEDICAL HISTORY: Significant for: 1. Transverse myelitis resulting in paraplegia, nonoperative treatment of a right foot wound. 2. History of Clostridium difficile. 3. History of a sacral decubitus ulcer, treated operatively. 4. Urinary retention. 5. Sleep apnea. 6. Pulmonary embolism. 7. Hypertension. 8. Atrial fibrillation. PAST SURGICAL HISTORY: Bilateral total knee arthroplasties by Dr. Walker several years ago, flap treatment of a sacral ulcer at [facility], colostomy, cholecystectomy, bilateral total hip arthroplasties. SOCIAL HISTORY: His is present for the visit today. He lives at home with his . Denies smoking, alcohol or drug use. ALLERGIES: INCLUDE CEPHALEXIN, WHICH GAVE HIM A RASH. REVIEW OF SYSTEMS: Includes that he was on antibiotics orally doxycycline for his foot wound previous to his admission. Also, he is not able to bear any weight on his legs as he does not have any type of standing braces, etc., but transfers bed to chair. Otherwise, negative review of systems. PHYSICAL EXAMINATION: On examination, he has well-healed incisions over bilateral hips with normal motion and equal leg lengths. No instability. Well-healed midline incisions over both knees and shows good patellofemoral tracking and stability. He does have a right knee effusion with some warmth present. There is mild redness. Both ankles are stable. He has a small wound over the right calcaneus that is superficial with no signs of redness, warmth, erythema and it does not probe deep to bone or other structures apparent. Upper extremities, he has normal range of motion, stability, no pain. Two views of the right knee x-rays show intact, well-fixated total knee arthroplasty with evidence of a knee effusion. LABORATORY DATA: White blood cell count was 12.1 on admission. IMPRESSION: 1. Swollen right knee. 2. History of transverse myelitis with paraplegia and resulting lack of sensation or motor function in bilateral lower extremities. 3. History of total knee arthroplasty remotely a few years ago. 4. Right foot wound. 5. Urinary retention with self-catheterization and high white blood cell count in the urine. TREATMENT PLAN: I went over with him that the swollen knee in the face of his increased white blood cell count and fevers are certainly a concern for possible prosthetic joint infection and after he gave consent verbally, right knee was aspirated under sterile conditions for approximately 20 mL of slightly cloudy appearing joint fluid, which was then sent for cell count, Gram stain, aerobic and anaerobic fungal acid fast cultures and crystals and I went over with he and his some preliminary things to think about regarding possible treatments if he is indeed shown to have infection in the knee, particularly the possibility of removal, placement of an antibiotic spacer and reimplantation of the knee, which is typical or generally the possibility of antibiotics for suppression and to think about the possibility if he does indeed have a deep infection in the knee and he is unable to really get up and functional use the knee due to the transverse myelitis and there is no look of recovery from that and possible consideration of above-knee amputation as well. I emphasized that this discussion is a bit premature yet because this was really pending the laboratory examination of the knee fluid for further information and the possibility of other sources of infection being considered as well. He and his appreciated the discussion regardless, so they can help process some of these issues and we will follow up as necessary depending on ongoing laboratory results. Of note, I did follow up with him later in the day after the aspiration with an initial results showing only 900 nucleated cells and 100 polymorphonuclear cells of that which would generally be way below the threshold of considering a prosthetic knee infection and I would not recommend initial operative treatment and instead recommend some antibiotic treatment in the interim and awaiting cultures and further collaboration with Infectious Disease consultants his ongoing treatment option regarding the findings and culture results. MELODY DINERO MD DR: SOREN/sen JOB#: [id number] / [id number]
[2020-07-10] MEDS: POLYETHYLENE GLYCOL 3350 17 GM PACKET. PO SCH (08:39)
[2020-07-10] MEDS: CEFEPIME HCL IV Push 2 GM VIAL. IVP SCH ×2 (08:39→21:22)
--- NOTE | 2020-07-10 08:48 | PDOC ---
PROGRESS NOTES Date of Service DATE: 07/10/20 TIME: 08:41 Subjective Subjective Problems overnight: Feels a bit better overall but notably does not feel pain in the lower extremities so really has no comment on the knee if it is any different to him Objective Vital Signs Vital Signs Date Time Temp Pulse Resp B/P (MAP) Pulse Ox O2 Delivery O2 Flow Rate FiO2 07/10/20 03:18 98.1 85 18 106/68 (81) 92 Room Air 98.1 Physical Exam Right knee still swollen compared to the left no change in foot wound superficial with no redness Labs Laboratory Tests Test 07/08/20 11:42 07/09/20 07:50 Body Fluid Source Synovial Body Fluid Color Yellow Body Fluid Clarity Hazy Body Fluid Nucleated Cells 900 /cmm (Not Established) Body Fluid Mononuclear WBCs (%) 0 % Body Fluid Polymorphonuclear Cells 100 % Body Fluid Total RBCs Counted 1780 /cmm (Not Established) Body Fluid Other Cells (%) 0 % Sodium Level 139 mmol/L (136-145) Potassium Level 4.3 mmol/L (3.5-5.1) Chloride Level 106 mmol/L (98-107) Carbon Dioxide Level 23 mmol/L (21-32) Anion Gap 10 (6-14) Blood Urea Nitrogen 20 mg/dL (8-26) Creatinine 0.7 mg/dL (0.7-1.3) Estimated GFR (Cockcroft-Gault) 112.5 Glucose Level 101 mg/dL (70-99) Calcium Level 8.7 mg/dL (8.5-10.1) Vancomycin Level Trough 20.4 mcg/mL (10.0-20.0) Vancomycin Last Dose Date 07/08/20 Vancomycin Last Dose Time 1999 Assessment Assessment Status post aspiration right knee prosthetic joint Plan Plan of Care White blood cell count only 900 cultures negative to date, no organisms on Gram stain and awaiting crystal evaluation and final culture results Note that to the best of my reckoning he had been on doxycycline prior to the knee aspiration Discussed with Dr. Torres, ongoing treatment based on pending cultures and results as well as his unique clinical circumstances Justicifation of Admission Dx: Justifications for Admission: Justification of Admission Dx: N/A Sepsis: Parenteral Antimicrobial Cellulitis: Cellulitis MELODY DINERO MD Jul 10, 2020 08:48
[2020-07-10 10:43] VITALS: BP 129/75
--- NOTE | 2020-07-10 11:38 | PDOC ---
[facility] PROGRESS NOTE Date of Service DOS: DATE: 07/10/20 TIME: 11:33 Chief Complaint Chief Complaint Persistent fevers and right knee effusion History of Present Illness History of Present Illness 07-08-20 - Pt seen and examined at bedside. - Jesus RN and family preservation caseworker. - Chart reviewed. - Pt has a right heel brace. 07-09-20 - Pt seen and examined at bedside. - Jesus RN and family preservation caseworker. - Chart reviewed. - Pt has a right heel brace and colostomy bag. 07-10-20 - Pt seen and examined at bedside. - Jessu RN and family preservation caseworker. - Chart reviewed. - Pt has a right heel brace and colostomy bag. Vitals/I&O Vitals/I&O: Vital Signs Date Time Temp Pulse Resp B/P (MAP) Pulse Ox O2 Delivery O2 Flow Rate FiO2 07/10/20 10:43 98.1 83 18 129/75 (93) 97 Room Air 98.1 I & O 07/09/20 07/09/20 07/10/20 15:00 23:00 07:00 Intake Total 780 ml 600 ml 1100 ml Output Total 500 ml 1345 ml 0 ml Balance 280 ml -745 ml 1100 ml Physical Exam Physical Exam: GENERAL: Alert and oriented gentleman, not in distress. HEENT: Both pupils are round and reacting. No conjunctival lesion. No lesion in the mouth. NECK: Supple. No JVP. No lymphadenopathy. LUNGS: Clear. HEART: S1, S2, regular. ABDOMEN: Soft, nontender. No organomegaly. EXTREMITIES: Right knee is red, hot and swollen. Right calcaneal wound is very small, superficial; there are no signs of infection there. SKIN: Rest of the skin examination is unremarkable. NEUROLOGIC: The patient is paraplegic. General: Alert, Oriented X3, Cooperative Heart: Regular rate, Normal S1, Normal S2 Lungs: Clear Abdomen: Normal bowel sounds, Soft, No tenderness Extremities: No clubbing, No cyanosis Skin: No rashes, No breakdown Review of Systems Review of Systems: No rashes or itching. No SOA or chest pain. No headaches or dizziness. Assessment and Plan Assessmemt and Plan Assessment: 1. Right knee effusion 2. Right heel wound 3. Persistent fevers Plan: 1. Await culture final result for knee 2. Await further GI input 3. Cont IV antibiotics 4. Wound care 5. Appreciate specialist input 6. DVT prophylaxis 7. Trend labs 8. Full code Comment Review of Relevant I have reviewed the following items franc (where applicable) has been applied. Medications: Current Medications Medications (Trade) Dose Ordered Sig/Didi Route PRN Reason Start Time Stop Time Status Last Admin Dose Admin Lactobacillus Rhamnosus (Culturelle) 1 cap BID PO 07/09/20 21:00 07/10/20 08:38 Justifications for Admission Other Justification TATIANA SCHAEFFER III DO Jul 10, 2020 11:38
[2020-07-10] MEDS: VANCOMYCIN 1.25 GM in IV NORMAL SALINE 250ML 250 ML IV SCH ×2 (12:04→23:00)
[2020-07-10] MEDS: VANCOMYCIN PER PHARMACY MC PRN (12:49)
--- NOTE | 2020-07-10 13:15 | PDOC2 ---
CONSULT Date of Consult Date of Consult DATE: 07/10/20 TIME: 13:11 Reason for Consult Reason for Consult: abdominal fat necrosis Referring Physician Referring Physician: Dr. Baez (d/w [facility]) Identification/Chief Complaint Chief Complaint abd pain and bloating Source Source: Caregiver, Chart review, Patient History of Present Illness Reason for Visit: 65 yo M with paraplegia. C/o abd pain and bloating. GI following and some improvement with laxatives. Pt and pt's note multiple loose stools. Pt still with bloating sensation. Past Medical History Cardiovascular: HTN, Hyperlipidemia, Other Pulmonary: No pertinent hx CENTRAL NERVOUS SYSTEM: Periperal neuropathy GI: No pertinent hx Heme/Onc: No pertinent hx Hepatobiliary: No pertinent hx, Cholelithiasis Psych: No pertinent hx Musculoskeletal: Osteoarthritis, Muscle atrophy, Weakness, Other Rheumatologic: No pertinent hx Infectious disease: No pertinent hx Renal/: No pertinent hx Endocrine: No pertinent hx Past Surgical History Past Surgical History: Cholecystectomy, Other (colostomy for perineal wounds) Family History Family History: Heart Disease, Other Social History No ALCOHOL: none (occasional in the past, none since 06/2018) Drugs: None Lives: with Family Current Medications Current Medications Current Medications Vancomycin HCl (Vanco Per Pharmacy) 1 each PRN DAILY PRN MC SEE COMMENTS Last administered on 07/07/20at 17:55; Start 07/07/20 at 15:00; Stop 07/08/20 at 08:46; Status DC Cefepime HCl (Maxipime) 2 gm Q24H IVP Last administered on 07/07/20at 17:35; Start 07/07/20 at 16:00; Stop 07/07/20 at 18:01; Status DC Insulin Human Lispro (HumaLOG) 0-9 UNITS TIDWMEALS SQ ; Start 07/07/20 at 17:00; Stop 07/07/20 at 19:47; Status DC Dextrose (Dextrose 50%-Water Syringe) 12.5 gm PRN Q15MIN PRN IV SEE COMMENTS; Start 07/07/20 at 15:00; Stop 07/07/20 at 19:47; Status DC Sennosides (Senna) 17.2 mg PRN BID PRN PO CONSTIPATION Last administered on 07/08/20at 20:48; Start 07/07/20 at 15:00 Docusate Sodium (Colace) 100 mg PRN DAILY PRN PO HARD STOOLS; Start 07/07/20 at 15:00 Ondansetron HCl (Zofran) 4 mg PRN Q6HRS PRN IVP NAUSEA/VOMITING; Start 07/07/20 at 15:00 Dextrose (Dextrose 50%-Water Syringe) 12.5 gm PRN Q15MIN PRN IV SEE COMMENTS; Start 07/07/20 at 15:00; Stop 07/07/20 at 14:55; Status DC Acetaminophen (Tylenol) 650 mg PRN Q4HRS PRN PO TEMP OVER 100.4F OR MILD PAIN; Start 07/07/20 at 15:00 Vancomycin HCl 2 gm/Sodium Chloride 500 ml @ 250 mls/hr 1X ONCE IV Last administered on 07/07/20at 17:34; Start 07/07/20 at 16:00; Stop 07/07/20 at 17:59; Status DC Enoxaparin Sodium (Lovenox 40mg Syringe) 40 mg Q24H SQ ; Start 07/07/20 at 17:15; Stop 07/07/20 at 16:50; Status DC Apixaban (Eliquis) 5 mg BID PO Last administered on 07/10/20at 08:38; Start 07/07/20 at 21:00 Ascorbic Acid (Vitamin C) 500 mg DAILY PO Last administered on 07/10/20at 08:38; Start 07/08/20 at 09:00 Gabapentin (Neurontin) 300 mg TID PO Last administered on 07/10/20at 08:38; Start 07/07/20 at 21:00 Oxybutynin Chloride (Ditropan) 5 mg BID PO Last administered on 07/10/20at 08:38; Start 07/07/20 at 21:00 Polyethylene Glycol (miraLAX PACKET) 17 gm DAILY PO Last administered on 07/10/20at 08:39; Start 07/08/20 at 09:00 Sennosides (Senna) 8.6 mg BID PO Last administered on 07/10/20at 08:38; Start 07/07/20 at 21:00 Metoprolol Succinate (Toprol Xl) 50 mg DAILY PO Last administered on 07/10/20at 08:38; Start 07/08/20 at 09:00 Atorvastatin Calcium (Lipitor) 40 mg QHS PO Last administered on 07/09/20at 20:26; Start 07/07/20 at 21:00 Vancomycin HCl 1.5 gm/Sodium Chloride 500 ml @ 250 mls/hr Q12H IV Last administered on 07/08/20at 05:22; Start 07/08/20 at 05:30; Stop 07/08/20 at 08:38; Status DC Vancomycin HCl (Vancomycin Trough Level) 1 each 1X ONCE MC ; Start 07/09/20 at 05:00; Stop 07/08/20 at 08:47; Status DC Cefepime HCl (Maxipime) 2 gm Q12H IVP ; Start 07/08/20 at 09:00; Stop 07/08/20 at 08:38; Status DC Methylnaltrexone [place] (Relistor) 12 mg 1X ONCE SQ Last administered on 07/08/20at 16:22; Start 07/08/20 at 15:00; Stop 07/08/20 at 15:01; Status DC Pantoprazole Sodium (Protonix) 40 mg DAILYAC PO Last administered on 07/10/20at 06:03; Start 07/08/20 at 16:30 Vancomycin HCl (Vanco Per Pharmacy) 1 each PRN DAILY PRN MC SEE COMMENTS Last administered on 07/10/20at 12:49; Start 07/08/20 at 19:30 Cefepime HCl (Maxipime) 2 gm Q12HR IVP Last administered on 07/10/20at 08:39; Start 07/08/20 at 21:00 Vancomycin HCl 1.5 gm/Sodium Chloride 500 ml @ 250 mls/hr Q12H IV Last administered on 07/08/20at 20:50; Start 07/08/20 at 20:00; Stop 07/09/20 at 09:14; Status DC Vancomycin HCl (Vancomycin Trough Level) 1 each 1X ONCE MC Last administered on 07/09/20at 07:30; Start 07/09/20 at 07:30; Stop 07/09/20 at 07:31; Status DC Iohexol (Omnipaque 240 Mg/ml) 50 ml 1X ONCE PO Last administered on 07/09/20at 09:00; Start 07/09/20 at 09:00; Stop 07/09/20 at 09:01; Status DC Iohexol (Omnipaque 300 Mg/ml) 75 ml 1X ONCE IV Last administered on 07/09/20at 09:00; Start 07/09/20 at 09:00; Stop 07/09/20 at 09:01; Status DC Info (CONTRAST GIVEN -- Rx MONITORING) 1 each PRN DAILY PRN MC SEE COMMENTS; Start 07/09/20 at 09:00; Stop 07/11/20 at 08:59 Vancomycin HCl 1.25 gm/Sodium Chloride 250 ml @ 167 mls/hr Q12H IV Last administered on 07/10/20at 12:04; Start 07/09/20 at 11:00 Vancomycin HCl (Vancomycin Trough Level) 1 each 1X ONCE MC ; Start 07/10/20 at 22:30; Stop 07/10/20 at 22:31 Lactobacillus Rhamnosus (Culturelle) 1 cap BID PO Last administered on 07/10/20at 08:38; Start 07/09/20 at 21:00 Active Scripts Active Thera-M Tablet (Multivits,Ca,Minerals/Iron/Fa) 1 Each Tablet 1 Tab PO DAILY 30 Days Vitamin C (Ascorbic Acid) 500 Mg Tablet 500 Mg PO DAILY 30 Days Klor-Con M20 (Potassium Chloride) 20 Meq Tab.er.prt 20 Meq PO DAILYWBKFT 28 Days Tylenol (Acetaminophen) 325 Mg Tablet 650 Mg PO PRN Q4HRS PRN 14 Days Doxycycline Hyclate 100 Mg Tablet 100 Mg PO BID 14 Days Amox Tr-K Clv 875-125 Mg Tab (Amoxicillin/Potassium Clav) 1 Each Tablet 1 Tab PO BID 14 Days Percocet 5-325 Mg Tablet (Oxycodone/Acetaminophen) 1 Each Tablet 1 Tab PO PRN Q4HRS PRN Reported Miralax (Polyethylene Glycol 3350) 17 Gm Powd.pack 1 Pkt PO DAILY Senokot (Sennosides) 8.6 Mg Tablet 8.6 Mg PO BID Hydrochlorothiazide Tablet (Hydrochlorothiazide) 25 Mg Tablet 25 Mg PO DAILY Crestor (Rosuvastatin Calcium) 5 Mg Tablet 10 Mg PO HS Amlodipine-Valsartan 10-320 mg (Amlodipine/Valsartan) 1 Each Tablet 1 Each PO HS Oxybutynin Chloride 5 Mg Tablet 5 Mg PO BID Spironolactone 25 Mg Tablet 25 Mg PO DAILY Furosemide 40 Mg Tablet 40 Mg PO DAILY Eliquis (Apixaban) 5 Mg Tablet 5 Mg PO BID Fluticasone Propionate Nasal [place] (Fluticasone Propionate) 16 Gm [place].susp 2 [place] NS DAILY Superior Digestive Enzyme (Digestive Enzymes Combo No.7) 1 Each Capsule 1 Each PO BID Gabapentin (Gabapentin) 300 Mg Capsule 300 Mg PO TID Toprol Xl (Metoprolol Succinate) 50 Mg Tab.er.24h 1 Tab PO DAILY Allergies Allergies: Coded Allergies: cephalexin (Verified Allergy, Intermediate, rash, 04/09/19) ROS Gastrointestinal: Yes Abdominal Pain, Yes Diarrhea Physical Exam General: Alert, Oriented X3, Cooperative, No acute distress HEENT: Atraumatic Abdomen: Soft, No tenderness, No masses, Other (colostomy in place, viable, functional) Psych/Mental Status: Mental status NL, Mood NL Vitals VITALS Vital Signs Date Time Temp Pulse Resp B/P (MAP) Pulse Ox O2 Delivery O2 Flow Rate FiO2 07/10/20 10:43 98.1 83 18 129/75 (93) 97 Room Air 98.1 Labs Labs Laboratory Tests Test 07/09/20 07:50 Sodium Level 139 mmol/L (136-145) Potassium Level 4.3 mmol/L (3.5-5.1) Chloride Level 106 mmol/L (98-107) Carbon Dioxide Level 23 mmol/L (21-32) Anion Gap 10 (6-14) Blood Urea Nitrogen 20 mg/dL (8-26) Creatinine 0.7 mg/dL (0.7-1.3) Estimated GFR (Cockcroft-Gault) 112.5 Glucose Level 101 mg/dL (70-99) Calcium Level 8.7 mg/dL (8.5-10.1) Vancomycin Level Trough 20.4 mcg/mL (10.0-20.0) Vancomycin Last Dose Date 07/08/20 Vancomycin Last Dose Time [address] without obvious obstruction, area of fat necrosis Assessment/Plan Assessment/Plan agree with plans for laxatives and supportive care no current surgical plans for fat necrosis, should be self limiting. Thanks for consult! DONAVON MUNOZ MD Jul 10, 2020 13:14
[2020-07-10] MEDS ORDERED: ANTI-COAG MONITOR BY PHARMACY. MC PRN (13:30)
[2020-07-10 14:23] VITALS: BP 129/72
[2020-07-10 19:00] VITALS: BP 136/79
[2020-07-10] MEDS: ATORVASTATIN CALCIUM 40 MG TABLET. PO SCH (20:05)
[2020-07-10 23:04] VITALS: BP 131/79
[2020-07-11 00:11] LABS: VANC TR 22.4 mcg/mL (10.0-20.0)
[2020-07-11] MEDS: VANCOMYCIN PER PHARMACY MC PRN ×2 (00:25→11:19)
--- NOTE | 2020-07-11 00:26 | NUR ---
Pharmacy Vancomycin Dosing Note S:Consulted to monitor and dose vancomycin started 07/07/20. O:DONAVON TRAVIS is a 65 year old M with Empiric possible infected TKA . Height: 6 feet, 0 inches Weight: 130.543491 kg [place] Body Weight: 77.60 Adjusted Body Weight: 98.92 Dosing Weight: Actual Other Antibiotics: Cefepime LABS: Last BUN: 20 Last Creatinine: 0.7 Creatinine Clearance: 100 mL/min Last WBC: 11 Last Procalcitonin: Tmax (past 24 hours): 98.3 Microbiology: Foot wound: no organisms seen Knee: no organisms seen Urine: proteus mirabilis (40,000 cfu/ml) I/O: 3547/8860 Drug Levels: Last Trough level: TRUE TROUGH 20.5 (22.4 RECORDED) on 07/10/20 at 2230 Last dose given 07/10/20 at 1204 Vancomycin Dosing: Loading Dose: 2000 mg x1 Dosing Weight: Actual Target Trough: 15-20 A: Based on: TRUE TROUGH P: 1. Begin Vancomycin 1000 mg IV q12h 2. Follow up Trough level on 07/12/20 at 1630 3. Pharmacy will continue to monitor, follow and adjust therapy as needed. FELICITY ESTEBAN RPH, 07/11/20 0026 Signed: 07/11/20 at 0026 by FELICITY ESTEBAN RPH PHA
[2020-07-11 02:57] VITALS: BP 125/71
[2020-07-11] MEDS: VANCOMYCIN 1 GM in IV NORMAL SALINE 250ML 250 ML IV SCH ×2 (05:02→18:14)
[2020-07-11] MEDS: PANTOPRAZOLE 40 MG TABLET.DR. PO SCH (05:02)
[2020-07-11 05:47] LABS: CALCIUM 8.7 mg/dL (8.5-10.1); CREATININE 0.8 mg/dL (0.7-1.3); GFR 96.4; POTASSIUM 4.1 mmol/L (3.5-5.1)
[2020-07-11 06:00] LABS: BASO # 0.1 x10^3/uL (0.0-0.2); BASO % 1 % (0-3); EOS # 0.4 x10^3/uL (0.0-0.7); EOS % 5 % (0-3); HEMOGLOBIN 11.1 g/dL (13.0-17.5); LYMPH # 1.1 x10^3/uL (1.0-4.8); LYMPH % 14 % (24-48); MEAN CORPUSCULAR HEMOGLOBIN 30 pg (25-35); MEAN CORPUSCULAR HGB CONC 34 g/dL (31-37); MEAN CORPUSCULAR VOLUME 88 fL (79-100); MONO # 0.8 x10^3/uL (0.0-1.1); MONO % 10 % (0-9); NEUT # 5.9 x10^3/uL (1.8-7.7); NEUT % 70 % (31-73); PLATELET COUNT 329 x10^3/uL (140-400); RED BLOOD COUNT 3.74 x10^6/uL (4.30-5.70); RED CELL DISTRIBUTION WIDTH 13.5 % (11.5-14.5); WHITE BLOOD COUNT 8.4 x10^3/uL (4.0-11.0)
[2020-07-11 07:12] VITALS: BP 121/76
--- NOTE | 2020-07-11 08:33 | PDOC ---
Infectious Disease Note Subjective Subjective pt is feeling better, no fever , though has abd discomfort - + BMs Eating well No F/C/S/N/V/SOA ROS ROS o/w neg Vital Sign Vital Signs Vital Signs Date Time Temp Pulse Resp B/P (MAP) Pulse Ox O2 Delivery O2 Flow Rate FiO2 07/11/20 07:12 98.1 83 18 121/76 (91) 92 Room Air 98.1 Physical Exam PHYSICAL EXAM GENERAL: Alert and oriented gentleman, not in distress. HEENT: Both pupils are round and reacting. No conjunctival lesion. No lesion in the mouth. NECK: Supple. No JVP. No lymphadenopathy. LUNGS: Clear. HEART: S1, S2, regular. ABDOMEN: Soft, nontender. No organomegaly. EXTREMITIES: Right knee is without significant redness, trace warmth and swelli ng. Right calcaneal wound is very small, superficial; there are no signs of infection there. SKIN: Rest of the skin examination is unremarkable. NEUROLOGIC: The patient is paraplegic. Labs Lab Laboratory Tests Test 07/10/20 23:30 07/11/20 02:30 Vancomycin Level Trough 22.4 mcg/mL (10.0-20.0) Vancomycin Last Dose Date Vancomycin Last Dose Time White Blood Count 8.4 x10^3/uL (4.0-11.0) Red Blood Count 3.74 x10^6/uL (4.30-5.70) Hemoglobin 11.1 g/dL (13.0-17.5) Hematocrit 33.0 % (39.0-53.0) Mean Corpuscular Volume 88 fL (79-100) Mean Corpuscular Hemoglobin 30 pg (25-35) Mean Corpuscular Hemoglobin Concent 34 g/dL (31-37) Red Cell Distribution Width 13.5 % (11.5-14.5) Platelet Count 329 x10^3/uL (140-400) Neutrophils (%) (Auto) 70 % (31-73) Lymphocytes (%) (Auto) 14 % (24-48) Monocytes (%) (Auto) 10 % (0-9) Eosinophils (%) (Auto) 5 % (0-3) Basophils (%) (Auto) 1 % (0-3) Neutrophils # (Auto) 5.9 x10^3/uL (1.8-7.7) Lymphocytes # (Auto) 1.1 x10^3/uL (1.0-4.8) Monocytes # (Auto) 0.8 x10^3/uL (0.0-1.1) Eosinophils # (Auto) 0.4 x10^3/uL (0.0-0.7) Basophils # (Auto) 0.1 x10^3/uL (0.0-0.2) Sodium Level 139 mmol/L (136-145) Potassium Level 4.1 mmol/L (3.5-5.1) Chloride Level 106 mmol/L (98-107) Carbon Dioxide Level 22 mmol/L (21-32) Anion Gap 11 (6-14) Blood Urea Nitrogen 26 mg/dL (8-26) Creatinine 0.8 mg/dL (0.7-1.3) Estimated GFR (Cockcroft-Gault) 96.4 Glucose Level 97 mg/dL (70-99) Calcium Level 8.7 mg/dL (8.5-10.1) Micro IMPRESSION: 1. Findings consistent with partial colonic resection and left ventral abdominal wall colostomy formation. There are clips and there is fatty stranding within the presacral space which is likely postinflammatory. There is a focus of suspected fat necrosis within the left ventral peritoneum. There is no evidence of acute colitis or alternative acute abdominal or pelvic finding. 2. Stable small hepatic cysts. PROTEUS MIRABILIS ANTIBIOTIC RESULT INTERPRETATION AMPICILLIN/SULBACTAM <=4/2 S AMIKACIN <=16 S AMPICILLIN <=8 S AMOXICILLIN/K CLAVULANATE <=8/4 S AZTREONAM <=4 S CEFTRIAXONE <=1 S CEFTAZIDIME <=1 S CEFOTAXIME <=2 S CEFOXITIN <=8 S CIPROFLOXACIN <=0.25 S CEFEPIME <=2 S CEFUROXIME <=4 S CEFTAZIDIME/AVIBACTAM <=4 S ERTAPENEM <=0.5 S NITROFURANTOIN >64 R* GENTAMICIN <=2 S LEVOFLOXACIN <=0.5 S MEROPENEM <=1 S PIPERACILLIN/TAZOBACTAM <=8 S TRIMETHOPRIM/SULFAMETHOXAZOLE <=0.5/9.5 S TETRACYCLINE >8 R TOBRAMYCIN <=2 S Microbiology 07/08/20 Gram Stain - Final, Resulted 07/08/20 Aerobic and Anaerobic Culture - Preliminary, Resulted 07/07/20 Urine Culture - Preliminary, Resulted Objective Assessment IMPRESSION: 1. 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 s/p aspiration, though pt had received antibiotics - cults neg so far - no crystals 2. Leukocytosis- better 3. Minor wound in the right calcaneum. 4. Transverse myelitis. 5. 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 6. Urinary abnormality; the patient does self-cath 4 times a day for urinary - Proteus 7. Abnormal CT Plan Plan of Care vanc and zosyn F/u cultures ct abd - reviewed - had Gen surg eval appreciate eval D/w nursing and MILIND Villela MD Jul 11, 2020 08:33
[2020-07-11] MEDS: LACTOBACILLUS RHAMNOSUS GG 1 CAPSULE. PO SCH ×2 (08:51→21:22)
[2020-07-11] MEDS: METOPROLOL SUCC 24HR ER 50 MG TAB.ER.24H. PO SCH (08:52)
[2020-07-11] MEDS: ASCORBIC ACID 500 MG TABLET PO SCH (08:52)
[2020-07-11] MEDS: SENNOSIDES 8.6 MG TABLET PO SCH ×2 (08:52→21:22)
[2020-07-11] MEDS: CEFEPIME HCL IV Push 2 GM VIAL. IVP SCH ×2 (08:52→21:22)
[2020-07-11] MEDS: POLYETHYLENE GLYCOL 3350 17 GM PACKET. PO SCH (08:52)
[2020-07-11] MEDS: OXYBUTYNIN CHLORIDE 5 MG TABLET PO SCH ×2 (08:52→22:06)
[2020-07-11] MEDS: APIXABAN 5 MG TABLET. PO SCH ×2 (08:52→21:22)
[2020-07-11] MEDS: GABAPENTIN 300 MG CAPSULE. PO SCH ×3 (08:52→21:22)
[2020-07-11 10:35] VITALS: BP 135/80
--- NOTE | 2020-07-11 12:09 | PDOC ---
[employer] PROGRESS NOTE Date of Service DOS: DATE: 07/11/20 TIME: 12:04 Chief Complaint Chief Complaint Persistent fevers and right knee effusion Abdominal pain Abdominal fatty necrosis History of transverse myelitis Paraplegia HTN, Hyperlipidemia, Afib Periperal neuropathy Gallstones osteoarthritis, Muscle atrophy, Weakness Obesity Right heel wound (Diverting colostomy) due to gluteal wound that required plastic reconstruction in 2019, Bilateral TKA 4 years ago History of Present Illness History of Present Illness 07-08-20 - Pt seen and examined at bedside. - Jesus RN and patient case manager. - Chart reviewed. - Pt has a right heel brace. 07-09-20 - Pt seen and examined at bedside. - Jesus RN and patient case manager. - Chart reviewed. - Pt has a right heel brace and colostomy bag. 07-10-20 - Pt seen and examined at bedside. - Jesus RN and patient case manager. - Chart reviewed. - Pt has a right heel brace and colostomy bag. 07-11-20 - Pt seen and examined at bedside. - Pt still has abdominal pain. - Jesus RN. - Chart reviewed. - Pt has a right heel brace and colostomy bag. Vitals/I&O Vitals/I&O: Vital Signs Date Time Temp Pulse Resp B/P (MAP) Pulse Ox O2 Delivery O2 Flow Rate FiO2 07/11/20 10:35 98.1 76 18 135/80 (98) 95 Room Air 98.1 I & O 07/10/20 07/10/20 07/11/20 15:00 23:00 07:00 Intake Total 300 ml 700 ml Output Total 950 ml 2250 ml 700 ml Balance -950 ml -1950 ml 0 ml Physical Exam Physical Exam: GENERAL: Alert and oriented gentleman, not in distress. HEENT: Both pupils are round and reacting. No conjunctival lesion. No lesion in the mouth. NECK: Supple. No JVP. No lymphadenopathy. LUNGS: Clear. HEART: S1, S2, regular. ABDOMEN: Soft, nontender. No organomegaly. EXTREMITIES: Right knee is without significant redness, trace warmth and swelling. Right calcaneal wound is very small, superficial; there are no signs of infection there. SKIN: Rest of the skin examination is unremarkable. NEUROLOGIC: The patient is paraplegic. General: Alert, Oriented X3, Cooperative, No acute distress Heart: Regular rate, Normal S1, Normal S2 Lungs: Clear Abdomen: Soft, No tenderness, No masses, Other Extremities: No clubbing, No cyanosis Skin: No rashes, No breakdown Labs Labs: Laboratory Tests Test 07/10/20 23:30 07/11/20 02:30 Vancomycin Level Trough 22.4 mcg/mL (10.0-20.0) Vancomycin Last Dose Date Vancomycin Last Dose Time White Blood Count 8.4 x10^3/uL (4.0-11.0) Red Blood Count 3.74 x10^6/uL (4.30-5.70) Hemoglobin 11.1 g/dL (13.0-17.5) Hematocrit 33.0 % (39.0-53.0) Mean Corpuscular Volume 88 fL (79-100) Mean Corpuscular Hemoglobin 30 pg (25-35) Mean Corpuscular Hemoglobin Concent 34 g/dL (31-37) Red Cell Distribution Width 13.5 % (11.5-14.5) Platelet Count 329 x10^3/uL (140-400) Neutrophils (%) (Auto) 70 % (31-73) Lymphocytes (%) (Auto) 14 % (24-48) Monocytes (%) (Auto) 10 % (0-9) Eosinophils (%) (Auto) 5 % (0-3) Basophils (%) (Auto) 1 % (0-3) Neutrophils # (Auto) 5.9 x10^3/uL (1.8-7.7) Lymphocytes # (Auto) 1.1 x10^3/uL (1.0-4.8) Monocytes # (Auto) 0.8 x10^3/uL (0.0-1.1) Eosinophils # (Auto) 0.4 x10^3/uL (0.0-0.7) Basophils # (Auto) 0.1 x10^3/uL (0.0-0.2) Sodium Level 139 mmol/L (136-145) Potassium Level 4.1 mmol/L (3.5-5.1) Chloride Level 106 mmol/L (98-107) Carbon Dioxide Level 22 mmol/L (21-32) Anion Gap 11 (6-14) Blood Urea Nitrogen 26 mg/dL (8-26) Creatinine 0.8 mg/dL (0.7-1.3) Estimated GFR (Cockcroft-Gault) 96.4 Glucose Level 97 mg/dL (70-99) Calcium Level 8.7 mg/dL (8.5-10.1) Review of Systems Review of Systems: Abdominal pain. No rashes or itching. No headaches or dizziness. No SOA or chest pain. Assessment and Plan Assessmemt and Plan Persistent fevers and right knee effusion Abdominal pain Abdominal fatty necrosis History of transverse myelitis Paraplegia HTN, Hyperlipidemia, Afib Periperal neuropathy Gallstones osteoarthritis, Muscle atrophy, Weakness Obesity Right heel wound (Diverting colostomy) due to gluteal wound that required plastic reconstruction in 2019, Bilateral TKA 4 years ago Plan: 1. Continue IV antibiotics 2. Await further GI input 3. According to surgery consult, fat necrosis does not need surgery and should be self-limiting 4. Await final culture results 5. DVT prophylaxis 6. Full code Comment Review of Relevant I have reviewed the following items franc (where applicable) has been applied. Medications: Current Medications Medications (Trade) Dose Ordered Sig/Didi Route PRN Reason Start Time Stop Time Status Last Admin Dose Admin Vancomycin HCl (Vancomycin Trough Level) 1 each 1X ONCE MC 07/10/20 22:30 07/10/20 22:31 DC 07/10/20 22:30 Info (Anti-Coagulation Monitoring By Pharmacy) 1 each PRN DAILY PRN MC SEE COMMENTS 07/10/20 13:30 07/10/20 13:22 Vancomycin HCl 1 gm/Sodium Chloride 250 ml @ 250 mls/hr Q12H IV 07/11/20 05:00 07/11/20 05:02 Justifications for Admission Other Justification TATIANA SCHAEFFER III DO Jul 11, 2020 12:09
--- NOTE | 2020-07-11 13:39 | PDOC ---
SURGICAL PROGRESS NOTE DATE: 07/11/20 TIME: 13:38 Subjective Pt reports feeling same to slightly improved, notes multiple more normal stools Vital Signs Vital Signs Date Time Temp Pulse Resp B/P (MAP) Pulse Ox O2 Delivery O2 Flow Rate FiO2 07/11/20 10:35 98.1 76 18 135/80 (98) 95 Room Air 98.1 I&O Intake and Output 07/11/20 07:00 Intake Total 1000 ml Output Total 3900 ml Balance -2900 ml Intake Oral 1000 ml Output Urine Total 3900 ml # Voids 3 General: Alert, Oriented X3, Cooperative, No acute distress Abdomen: Soft, No tenderness, Other (ostomy fxn) Labs Laboratory Tests Test 07/10/20 23:30 07/11/20 02:30 Vancomycin Level Trough 22.4 mcg/mL (10.0-20.0) Vancomycin Last Dose Date Vancomycin Last Dose Time White Blood Count 8.4 x10^3/uL (4.0-11.0) Red Blood Count 3.74 x10^6/uL (4.30-5.70) Hemoglobin 11.1 g/dL (13.0-17.5) Hematocrit 33.0 % (39.0-53.0) Mean Corpuscular Volume 88 fL (79-100) Mean Corpuscular Hemoglobin 30 pg (25-35) Mean Corpuscular Hemoglobin Concent 34 g/dL (31-37) Red Cell Distribution Width 13.5 % (11.5-14.5) Platelet Count 329 x10^3/uL (140-400) Neutrophils (%) (Auto) 70 % (31-73) Lymphocytes (%) (Auto) 14 % (24-48) Monocytes (%) (Auto) 10 % (0-9) Eosinophils (%) (Auto) 5 % (0-3) Basophils (%) (Auto) 1 % (0-3) Neutrophils # (Auto) 5.9 x10^3/uL (1.8-7.7) Lymphocytes # (Auto) 1.1 x10^3/uL (1.0-4.8) Monocytes # (Auto) 0.8 x10^3/uL (0.0-1.1) Eosinophils # (Auto) 0.4 x10^3/uL (0.0-0.7) Basophils # (Auto) 0.1 x10^3/uL (0.0-0.2) Sodium Level 139 mmol/L (136-145) Potassium Level 4.1 mmol/L (3.5-5.1) Chloride Level 106 mmol/L (98-107) Carbon Dioxide Level 22 mmol/L (21-32) Anion Gap 11 (6-14) Blood Urea Nitrogen 26 mg/dL (8-26) Creatinine 0.8 mg/dL (0.7-1.3) Estimated GFR (Cockcroft-Gault) 96.4 Glucose Level 97 mg/dL (70-99) Calcium Level 8.7 mg/dL (8.5-10.1) Laboratory Tests Test 07/10/20 23:30 07/11/20 02:30 Vancomycin Level Trough 22.4 mcg/mL (10.0-20.0) Vancomycin Last Dose Date Vancomycin Last Dose Time White Blood Count 8.4 x10^3/uL (4.0-11.0) Red Blood Count 3.74 x10^6/uL (4.30-5.70) Hemoglobin 11.1 g/dL (13.0-17.5) Hematocrit 33.0 % (39.0-53.0) Mean Corpuscular Volume 88 fL (79-100) Mean Corpuscular Hemoglobin 30 pg (25-35) Mean Corpuscular Hemoglobin Concent 34 g/dL (31-37) Red Cell Distribution Width 13.5 % (11.5-14.5) Platelet Count 329 x10^3/uL (140-400) Neutrophils (%) (Auto) 70 % (31-73) Lymphocytes (%) (Auto) 14 % (24-48) Monocytes (%) (Auto) 10 % (0-9) Eosinophils (%) (Auto) 5 % (0-3) Basophils (%) (Auto) 1 % (0-3) Neutrophils # (Auto) 5.9 x10^3/uL (1.8-7.7) Lymphocytes # (Auto) 1.1 x10^3/uL (1.0-4.8) Monocytes # (Auto) 0.8 x10^3/uL (0.0-1.1) Eosinophils # (Auto) 0.4 x10^3/uL (0.0-0.7) Basophils # (Auto) 0.1 x10^3/uL (0.0-0.2) Sodium Level 139 mmol/L (136-145) Potassium Level 4.1 mmol/L (3.5-5.1) Chloride Level 106 mmol/L (98-107) Carbon Dioxide Level 22 mmol/L (21-32) Anion Gap 11 (6-14) Blood Urea Nitrogen 26 mg/dL (8-26) Creatinine 0.8 mg/dL (0.7-1.3) Estimated GFR (Cockcroft-Gault) 96.4 Glucose Level 97 mg/dL (70-99) Calcium Level 8.7 mg/dL (8.5-10.1) Assessment/Plan abd pain appears improved no surgical plans. Justicifation of Admission Dx: Justifications for Admission: Justification of Admission Dx: N/A Sepsis: Parenteral Antimicrobial Cellulitis: Cellulitis DONAVON MUNOZ MD Jul 11, 2020 13:39
[2020-07-11 14:22] VITALS: BP 130/76
[2020-07-11 19:00] VITALS: BP 154/89
[2020-07-11] MEDS: ATORVASTATIN CALCIUM 40 MG TABLET. PO SCH (21:22)
[2020-07-11 23:05] VITALS: BP 132/77
[2020-07-12 03:04] VITALS: BP 148/81
[2020-07-12] MEDS: VANCOMYCIN 1 GM in IV NORMAL SALINE 250ML 250 ML IV SCH (05:05)
[2020-07-12] MEDS: PANTOPRAZOLE 40 MG TABLET.DR. PO SCH (05:06)
[2020-07-12 07:23] VITALS: BP 130/77
[2020-07-12 08:01] LABS: CREATININE 0.6 mg/dL (0.7-1.3); GFR 134.4
--- NOTE | 2020-07-12 08:14 | PDOC ---
[facility] PROGRESS NOTE Date of Service DOS: DATE: 07/12/20 TIME: 08:06 Chief Complaint Chief Complaint Persistent fevers and right knee effusion Abdominal pain Abdominal fatty necrosis History of transverse myelitis Paraplegia HTN, Hyperlipidemia, Afib Periperal neuropathy Gallstones osteoarthritis, Muscle atrophy, Weakness Obesity Right heel wound (Diverting colostomy) due to gluteal wound that required plastic reconstruction in 2019, Bilateral TKA 4 years ago History of Present Illness History of Present Illness 07-08-20 - Pt seen and examined at bedside. - Jesus RN and medical case manager. - Chart reviewed. - Pt has a right heel brace. 07-09-20 - Pt seen and examined at bedside. - Jesus RN and medical case manager. - Chart reviewed. - Pt has a right heel brace and colostomy bag. 07-10-20 - Pt seen and examined at bedside. - Jesus RN and medical case manager. - Chart reviewed. - Pt has a right heel brace and colostomy bag. 07-11-20 - Pt seen and examined at bedside. - Pt still has abdominal pain. - Jesus RN. - Chart reviewed. - Pt has a right heel brace and colostomy bag. 07/12: Patient seen and examined. Afebrile. Still with some abdominal pain, improving. No organisms seen on Gram stain, cultures pending. Continue cefepime and vancomycin, per ID. Vitals/I&O Vitals/I&O: Vital Signs Date Time Temp Pulse Resp B/P (MAP) Pulse Ox O2 Delivery O2 Flow Rate FiO2 07/12/20 07:23 98.0 77 18 130/77 (94) 93 Room Air 98.0 I & O 07/11/20 07/11/20 07/12/20 15:00 23:00 07:00 Intake Total 300 ml Output Total 850 ml 3050 ml 350 ml Balance -850 ml -2750 ml -350 ml Physical Exam Physical Exam: GENERAL: Alert and oriented gentleman, not in distress. HEENT: Both pupils are round and reacting. No conjunctival lesion. No lesion in the mouth. NECK: Supple. No JVP. No lymphadenopathy. LUNGS: Clear. HEART: S1, S2, regular. ABDOMEN: Soft, nontender. No organomegaly. EXTREMITIES: Right knee is without significant redness, trace warmth and swelling. Right calcaneal wound is very small, superficial; there are no signs of infection there. SKIN: Rest of the skin examination is unremarkable. NEUROLOGIC: The patient is paraplegic. General: Alert, Oriented X3, Cooperative, No acute distress Heart: Regular rate, Normal S1, Normal S2 Lungs: Clear Abdomen: Soft, No tenderness, Other (ostomy fxn) Extremities: No clubbing, No cyanosis Skin: No rashes, No breakdown Labs Labs: Laboratory Tests Test 07/12/20 06:10 Creatinine 0.6 mg/dL (0.7-1.3) Estimated GFR (Cockcroft-Gault) 134.4 Comment Review of Relevant I have reviewed the following items franc (where applicable) has been applied. Justifications for Admission Other Justification MEENU JONES MD Jul 12, 2020 08:14
--- NOTE | 2020-07-12 10:01 | PDOC ---
Infectious Disease Note Subjective Subjective pt is feeling better, no fever , though has abd discomfort - + BMs Eating well No F/C/S/N/V/SOA Vital Sign Vital Signs Vital Signs Date Time Temp Pulse Resp B/P (MAP) Pulse Ox O2 Delivery O2 Flow Rate FiO2 07/12/20 07:23 98.0 77 18 130/77 (94) 93 Room Air 98.0 Physical Exam PHYSICAL EXAM GENERAL: Alert and oriented gentleman, not in distress. HEENT: Both pupils are round and reacting. No conjunctival lesion. No lesion in the mouth. NECK: Supple. No JVP. No lymphadenopathy. LUNGS: Clear. HEART: S1, S2, regular. ABDOMEN: Soft, nontender. No organomegaly. EXTREMITIES: Right knee is slight redness, trace warmth and swelling. Right calcaneal wound is very small, superficial; there are no signs of infection there. SKIN: Rest of the skin examination is unremarkable. NEUROLOGIC: The patient is paraplegic. Labs Lab Laboratory Tests Test 07/12/20 06:10 Creatinine 0.6 mg/dL (0.7-1.3) Estimated GFR (Cockcroft-Gault) 134.4 Micro GRAM STAIN Final Final NO ORGANISMS SEEN. SQUAMOUS EPI CELL:NONE SEEN PMN (WBCs):MANY Unless otherwise specified, Testing Performed by: [address] [address] For Inquires, the Physician may contact the Microbiology department at [phone] ANAEROBIC-AEROBIC CULTURE Preliminary Preliminary No Growth on 07/09/20 at 0844 No Growth on 07/10/20 at 0845 Unless otherwise specified, Testing Performed by: [address] [address] For Inquires, the Physician may contact the Microbiology department at [phone] Objective Assessment IMPRESSION: 1. Fever for 2 weeks, most likely coming from infected prosthetic right knee. s/p aspiration, though pt had received antibiotics 2. Leukocytosis. 3. Minor wound in the right calcaneum. 4. Transverse myelitis. 5. 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 6. Urinary abnormality; the patient does self-cath 4 times a day for urinary retention. Plan Plan of Care Cultures so far negative. No more fever. Did discuss with the patient and patient's at the bedside in detail various options were discussed treating empirically with IV antibiotics aggressively discuss another option discussed was no antibiotics let it declare in 1 week have again aspiration done if it is still red or getting worse Pros and cons for the approach is discussed patient can get worse with fever and the knee infection without antibiotics that was also discussed in detail patient and understood all the options and they decided to stop antibiotics go home and in 1 week have follow-up with either with Dr. Walker or with Dr. Zurita and may need reaspiration Patient to come back sooner if he is worse and feeling sick STEVENSON OLSON MD Jul 12, 2020 10:01
[2020-07-12 10:40] VITALS: BP 139/87
[2020-07-12] MEDS: GABAPENTIN 300 MG CAPSULE. PO SCH ×3 (10:51→21:12)
[2020-07-12] MEDS: SENNOSIDES 8.6 MG TABLET PO SCH ×2 (10:51→21:00)
[2020-07-12] MEDS: ASCORBIC ACID 500 MG TABLET PO SCH (10:52)
[2020-07-12] MEDS: APIXABAN 5 MG TABLET. PO SCH ×2 (10:52→21:13)
[2020-07-12] MEDS: OXYBUTYNIN CHLORIDE 5 MG TABLET PO SCH ×2 (10:52→21:13)
[2020-07-12] MEDS: POLYETHYLENE GLYCOL 3350 17 GM PACKET. PO SCH (10:52)
[2020-07-12] MEDS: METOPROLOL SUCC 24HR ER 50 MG TAB.ER.24H. PO SCH (10:52)
[2020-07-12] MEDS: LACTOBACILLUS RHAMNOSUS GG 1 CAPSULE. PO SCH ×2 (10:52→21:12)
--- NOTE | 2020-07-12 11:20 | PDOC ---
Date of Service: DATE: 07/12/20 TIME: 11:16 Subjective: Subjective: Abdomen feels a little better. Ostomy functioning - just emptied 300cc. Also says he passed gas yesterday through rectum and that helped everything. Appetite is good. Objective: Vital Signs: Vital Signs Date Time Temp Pulse Resp B/P (MAP) Pulse Ox O2 Delivery O2 Flow Rate FiO2 07/12/20 10:52 81 139/87 07/12/20 10:40 98.4 18 95 Room Air 98.4 Labs: Laboratory Tests Test 07/12/20 06:10 Creatinine 0.6 mg/dL Estimated GFR (Cockcroft-Gault) 134.4 GRAM STAIN Final Final NO ORGANISMS SEEN. SQUAMOUS EPI CELL:NONE SEEN PMN (WBCs):NONE SEEN Unless otherwise specified, Testing Performed by: [address] [address] For Inquires, the Physician may contact the Microbiology department at [phone] ANAEROBIC-AEROBIC CULTURE Final Final FEW Mixed skin dima isolated on 07/09/20 at 0842 NO ANAEROBIC ORGANISMS ISOLATED on 07/12/20 at 0916 Unless otherwise specified, Testing Performed by: [address] [address] For Inquires, the Physician may contact the Microbiology department at [phone] PE: GEN: NAD LUNGS: CTAB HEART: RRR ABD: large - does seem a bit softer - ostomy present NEURO/PSYCH: A & O 3, very pleasant, present A/P: UTI, ?knee infection Abdominal pressure - better "Fat necrosis" on CT Transverse myelitis w/ paraplegia, neurogenic bladder, chronic wounds, s/p diverting colostomy H/o C Diff -- Abdomen pressure improved. Eating and stooling. Continue support per GI. Justicifation of Admission Dx: Justifications for Admission: Justification of Admission Dx: N/A Sepsis: Parenteral Antimicrobial Cellulitis: Cellulitis YOHANA GUNTER Jul 12, 2020 11:20
--- NOTE | 2020-07-12 11:27 | PDOC ---
SUSY ISAAC JUNIOR ENGINEER 07/12/20 1127: SURGICAL PROGRESS NOTE DATE: 07/12/20 TIME: 11:26 Subjective eating some abdominal pain low abdomen, but overall better no n/v Vital Signs Vital Signs Date Time Temp Pulse Resp B/P (MAP) Pulse Ox O2 Delivery O2 Flow Rate FiO2 07/12/20 10:52 81 139/87 07/12/20 10:40 98.4 18 95 Room Air 98.4 I&O Intake and Output 07/12/20 06:59 Intake Total 300 ml Output Total 4950 ml Balance -4650 ml Intake Oral 300 ml Output Urine Total 4600 ml Stool Total 350 ml # Voids 2 General: Alert, Oriented X3, Cooperative Abdomen: Soft, Other (ND, ostomy functioning ) Labs Laboratory Tests Test 07/10/20 23:30 07/11/20 02:30 07/12/20 06:10 Vancomycin Level Trough 22.4 mcg/mL (10.0-20.0) Vancomycin Last Dose Date Vancomycin Last Dose Time White Blood Count 8.4 x10^3/uL (4.0-11.0) Red Blood Count 3.74 x10^6/uL (4.30-5.70) Hemoglobin 11.1 g/dL (13.0-17.5) Hematocrit 33.0 % (39.0-53.0) Mean Corpuscular Volume 88 fL (79-100) Mean Corpuscular Hemoglobin 30 pg (25-35) Mean Corpuscular Hemoglobin Concent 34 g/dL (31-37) Red Cell Distribution Width 13.5 % (11.5-14.5) Platelet Count 329 x10^3/uL (140-400) Neutrophils (%) (Auto) 70 % (31-73) Lymphocytes (%) (Auto) 14 % (24-48) Monocytes (%) (Auto) 10 % (0-9) Eosinophils (%) (Auto) 5 % (0-3) Basophils (%) (Auto) 1 % (0-3) Neutrophils # (Auto) 5.9 x10^3/uL (1.8-7.7) Lymphocytes # (Auto) 1.1 x10^3/uL (1.0-4.8) Monocytes # (Auto) 0.8 x10^3/uL (0.0-1.1) Eosinophils # (Auto) 0.4 x10^3/uL (0.0-0.7) Basophils # (Auto) 0.1 x10^3/uL (0.0-0.2) Sodium Level 139 mmol/L (136-145) Potassium Level 4.1 mmol/L (3.5-5.1) Chloride Level 106 mmol/L (98-107) Carbon Dioxide Level 22 mmol/L (21-32) Anion Gap 11 (6-14) Blood Urea Nitrogen 26 mg/dL (8-26) Creatinine 0.8 mg/dL (0.7-1.3) 0.6 mg/dL (0.7-1.3) Estimated GFR (Cockcroft-Gault) 96.4 134.4 Glucose Level 97 mg/dL (70-99) Calcium Level 8.7 mg/dL (8.5-10.1) Laboratory Tests Test 07/12/20 06:10 Creatinine 0.6 mg/dL (0.7-1.3) Estimated GFR (Cockcroft-Gault) 134.4 Assessment/Plan improving no surgical plans Justicifation of Admission Dx: Justifications for Admission: Justification of Admission Dx: N/A Sepsis: Parenteral Antimicrobial Cellulitis: Cellulitis RYLIE SHAY MD 07/13/20 0813: SURGICAL PROGRESS NOTE Assessment/Plan Agree with Neli assessment and plan SUSY ISAAC APRN Jul 12, 2020 11:27 RYLIE SHAY MD Jul 13, 2020 08:13
[2020-07-12 14:46] VITALS: BP 125/71
[2020-07-12 19:00] VITALS: BP 147/80
[2020-07-12] MEDS: SENNOSIDES 8.6 MG TABLET PO PRN (21:12)
[2020-07-12] MEDS: ATORVASTATIN CALCIUM 40 MG TABLET. PO SCH (21:13)
[2020-07-12 23:24] VITALS: BP 135/75
[2020-07-13 03:00] VITALS: BP 120/75
[2020-07-13 07:00] VITALS: BP 130/70
--- NOTE | 2020-07-13 07:36 | PDOC ---
[facility] PROGRESS NOTE Date of Service DOS: DATE: 07/13/20 TIME: 07:08 Chief Complaint Chief Complaint Persistent fevers and right knee effusion Abdominal pain Abdominal fatty necrosis History of transverse myelitis Paraplegia HTN, Hyperlipidemia, Afib Periperal neuropathy Gallstones osteoarthritis, Muscle atrophy, Weakness Obesity Right heel wound (Diverting colostomy) due to gluteal wound that required plastic reconstruction in 2019, Bilateral TKA 4 years ago History of Present Illness History of Present Illness 07-08-20 - Pt seen and examined at bedside. - Jesus RN and lining caser. - Chart reviewed. - Pt has a right heel brace. 07-09-20 - Pt seen and examined at bedside. - Jesus RN and lining caser. - Chart reviewed. - Pt has a right heel brace and colostomy bag. 07-10-20 - Pt seen and examined at bedside. - Jesus RN and lining caser. - Chart reviewed. - Pt has a right heel brace and colostomy bag. 07-11-20 - Pt seen and examined at bedside. - Pt still has abdominal pain. - Jesus RN. - Chart reviewed. - Pt has a right heel brace and colostomy bag. 07/12: Patient seen and examined. Afebrile. Still with some abdominal pain, improving. No organisms seen on Gram stain, cultures pending. Continue cefepime and vancomycin, per ID. 07/13: Patient seen and evaluated. Afebrile. Denies significant tenderness of the right knee. No organisms seen on Gram stain and cultures negative to date. Patient had discussion with Dr. Zhang yesterday about the possibility that no organisms have been seen on Gram stain or culture to date because antibiotics were seen prior to right knee aspiration. Options were discussed with family and about continuing empiric IV antibiotic treatment or discontinuing antibiotics for 1 week to allow organisms to declare. Pros and cons for the approach discussed patient, including worsening of fever and knee infection without antibiotics, patient and understood the options and decided to stop antibiotics and follow-up in 1 week have follow-up with either with Dr. Walker or Dr. Wagner for repeat reaspiration. Patient informed to return sooner if symptoms acutely worsen. Greater than 30 minutes spent managing the discharge o f this patient. Vitals/I&O Vitals/I&O: Vital Signs Date Time Temp Pulse Resp B/P (MAP) Pulse Ox O2 Delivery O2 Flow Rate FiO2 07/13/20 03:00 97.5 73 18 120/75 (90) 96 Room Air 97.5 I & O0 07/12/20 07/12/20 07/13/20 15:00 23:00 07:00 Intake Total 100 ml 540 ml Output Total 900 ml 950 ml 950 ml Balance -900 ml -850 ml -410 ml Physical Exam Physical Exam: GENERAL: Alert and oriented gentleman, not in distress. HEENT: Both pupils are round and reacting. No conjunctival lesion. No lesion in the mouth. NECK: Supple. No JVP. No lymphadenopathy. LUNGS: Clear. HEART: S1, S2, regular. ABDOMEN: Soft, nontender. No organomegaly. EXTREMITIES: Right knee is slight redness, trace warmth and swelling. Right calcaneal wound is very small, superficial; there are no signs of infection there. SKIN: Rest of the skin examination is unremarkable. NEUROLOGIC: The patient is paraplegic. General: Alert, Oriented X3, Cooperative Heart: Regular rate, Normal S1, Normal S2 Lungs: Clear Abdomen: Soft, Other (ND, ostomy functioning ) Extremities: No clubbing, No cyanosis, Other (Right knee with some warmth and mild erythema) Skin: No rashes, No breakdown Comment Review of Relevant I have reviewed the following items franc (where applicable) has been applied. Justifications for Admission Other Justification MEENU JONES MD Jul 13, 2020 07:36
--- NOTE | 2020-07-13 07:50 | NUR ---
Wound Care Wound Type/Assessment: Pt seen per wound care follow up. Pt is known to us from the clinic. Pt has stage IV PU to right heel. Wound cleansed and assessed. Dr. Napoles at bedside with me to see patient. The wound is closed at this time. Treatment Recommendations/Plan: Recommendations of Xeroform gauze with a foam dressing,Change every 2-3 days. Dressing applied. Education provided: Pt educated on dressing changes and PU prevention. Offloading surface/device: Pt is on a P-500 bed with bilateral heel medix in place. Turn every 2 hours and purple wedge in room. Pt eating breakfast at this time. Recommended Referrals/Tests: N/A Discharge Recommendations for dressings: Continue current treatment. Pt will follow up in the wound clinic after discharge. Bed lowered and call light in reach. Wound care will follow up with patient.
--- NOTE | 2020-07-13 08:55 | PDOC ---
Infectious Disease Note Subjective Subjective pt is feeling better, no fever , though has abd discomfort - + BMs Eating well No F/C/S/N/V/SOA Vital Sign Vital Signs Vital Signs Date Time Temp Pulse Resp B/P (MAP) Pulse Ox O2 Delivery O2 Flow Rate FiO2 07/13/20 07:00 97.7 75 16 130/70 (90) 95 Room Air 97.7 Physical Exam PHYSICAL EXAM GENERAL: Alert and oriented gentleman, not in distress. HEENT: Both pupils are round and reacting. No conjunctival lesion. No lesion in the mouth. NECK: Supple. No JVP. No lymphadenopathy. LUNGS: Clear. HEART: S1, S2, regular. ABDOMEN: Soft, nontender. No organomegaly. EXTREMITIES: Right knee is slight redness, trace warmth and swelling. Right calcaneal wound is very small, superficial; there are no signs of infection there. SKIN: Rest of the skin examination is unremarkable. NEUROLOGIC: The patient is paraplegic. Labs Micro GRAM STAIN Final Final NO ORGANISMS SEEN. SQUAMOUS EPI CELL:NONE SEEN PMN (WBCs):MANY Unless otherwise specified, Testing Performed by: [address] [address] For Inquires, the Physician may contact the Microbiology department at [phone] ANAEROBIC-AEROBIC CULTURE Preliminary Preliminary No Growth on 07/09/20 at 0844 No Growth on 07/10/20 at 0845 Unless otherwise specified, Testing Performed by: [address] [address] For Inquires, the Physician may contact the Microbiology department at [phone] Objective Assessment IMPRESSION: 1. Fever for 2 weeks, most likely coming from infected prosthetic right knee. s/p aspiration, though pt had received antibiotics 2. Leukocytosis. 3. Minor wound in the right calcaneum. 4. Transverse myelitis. 5. 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 6. Urinary abnormality; the patient does self-cath 4 times a day for urinary retention. Plan Plan of Care Cultures so far negative. No more fever. Did discuss with the patient and patient's at the bedside in detail various options were discussed treating empirically with IV antibiotics aggressively discuss another option discussed was no antibiotics let it declare in 1 week have again aspiration done if it is still red or getting worse Pros and cons for the approach is discussed patient can get worse with fever and the knee infection without antibiotics that was also discussed in detail patient and understood all the options and they decided to stop antibiotics go home and in 1 week have follow-up with either with Dr. Walker or with Dr. Zurita and may need re aspiration off antibiotics Patient to come back sooner if he is worse and feeling sick STEVENSON OLSON MD Jul 13, 2020 08:55
--- NOTE | 2020-07-13 09:03 | PDOC ---
Date of Service: DATE: 07/13/20 TIME: 08:59 Progress Note: Wound service progress note Patient is seen and examined prior to discharge. Vital signs are stable and patient afebrile. Patient seated in demonstrating excellent appetite this morning. Right heel pressure ulcer now demonstrating firm integrated scab. No drainage. Periwound entirely intact. No edema or erythema identified. Assessment: Stage IV pressure ulcer right heel demonstrating closure at this time Plan: wound dressed with contact layer and foam. Anticipate follow-up 1 week. Offloading regimen again reviewed with the patient. Justifications for Admission Other Justification SONNY WOODALL DO Jul 13, 2020 09:03
[2020-07-13 09:15] LABS: CREATININE 0.6 mg/dL (0.7-1.3); GFR 134.4
[2020-07-13] MEDS: PANTOPRAZOLE 40 MG TABLET.DR. PO SCH (09:52)
[2020-07-13] MEDS: POLYETHYLENE GLYCOL 3350 17 GM PACKET. PO SCH (09:52)
[2020-07-13] MEDS: APIXABAN 5 MG TABLET. PO SCH (09:52)
[2020-07-13] MEDS: SENNOSIDES 8.6 MG TABLET PO SCH (09:52)
[2020-07-13] MEDS: METOPROLOL SUCC 24HR ER 50 MG TAB.ER.24H. PO SCH (09:53)
[2020-07-13] MEDS: ASCORBIC ACID 500 MG TABLET PO SCH (09:53)
[2020-07-13] MEDS: OXYBUTYNIN CHLORIDE 5 MG TABLET PO SCH (09:53)
[2020-07-13] MEDS: GABAPENTIN 300 MG CAPSULE. PO SCH ×2 (09:53→15:41)
[2020-07-13] MEDS: LACTOBACILLUS RHAMNOSUS GG 1 CAPSULE. PO SCH (09:53)
--- NOTE | 2020-07-13 10:51 | PDOC ---
Date of Service: DATE: 07/13/20 TIME: 10:47 Subjective: Subjective: Still some abdominal pressure. Tolerating diet and ostomy functioning - says more gas in ostomy and stools are a little more formed. Gets to go home today. Objective: Objective: D/w Dr. Zhang. Vital Signs: Vital Signs Date Time Temp Pulse Resp B/P (MAP) Pulse Ox O2 Delivery O2 Flow Rate FiO2 07/13/20 09:53 75 130/70 07/13/20 07:00 97.7 16 95 Room Air 97.7 Labs: Laboratory Tests Test 07/13/20 07:35 Creatinine 0.6 mg/dL Estimated GFR (Cockcroft-Gault) 134.4 GRAM STAIN Final Final NO ORGANISMS SEEN. SQUAMOUS EPI CELL:NONE SEEN PMN (WBCs):MANY Unless otherwise specified, Testing Performed by: [address] [address] For Inquires, the Physician may contact the Microbiology department at [phone] ANAEROBIC-AEROBIC CULTURE Final Final No Growth on 07/09/20 at 0844 No Growth on 07/10/20 at 0845 No Growth on 07/13/20 at 0804 Unless otherwise specified, Testing Performed by: [address] [address] For Inquires, the Physician may contact the Microbiology department at [phone] PE: GEN: NAD - on phone w/ LUNGS: CTAB HEART: RRR, ABD: some discomfort to left/mid, ostomy w/ gas and stool, large NEURO/PSYCH: A & O 3 A/P: UTI, ?knee infection Abdominal pressure - better; "fat necrosis" on CT Transverse myelitis w/ paraplegia, s/p diverting colostomy -- Dc per primary. Justicifation of Admission Dx: Justifications for Admission: Justification of Admission Dx: N/A Sepsis: Parenteral Antimicrobial Cellulitis: Cellulitis YOHANA GUNTER Jul 13, 2020 10:51
[2020-07-13 11:00] VITALS: BP 127/68
--- NOTE | 2020-07-13 12:09 | SNU/HH DC ---
DISCHARGE WITH HOME HEALTH DISCHARGE INFORMATION: Condition on Discharge: Stable CODE STATUS: Code Status: Full HOME HEALTH: Face to Face: I certify this patient is under my care and that I, or a nurse practitioner or physician's assistant professor of surgery working with me, had a face to face encounter that meets the physician face to face encounter requirements with this patient on 07/13/2020. Medical Complications: S/P Joint Replacement, Other (Transverse myelitis) RN For Eval/Treatment: Yes Pt Meets Homebound Status: Unable to negotiate home POST DISCHARGE ORDERS: Activity Instructions for Disc: Resume previous activity Weight Bearing Status after Di: As tolerated Bathing Instructions: Shower-keep dressing dry DIET AFTER DISCHARGE: Cardiac Wound/Incision Care: Other, see below CHECKS AFTER DISCHARGE: Checks after discharge: Check blood press - daily TREATMENT/EQUIPMENT ORDERS: Adaptive Equipment Issued: None, Meli CERTIFICATION STATEMENT: Certification Statement: Certification Statement: Based on the above finding, I certify that this patient is confined to the home and needs intermittent shelter care, physical therapy and/or speech therapy, or continues to need occupational therapy.~ This patient is under my care, and I have initiated the establishment of the plan of care.~ This patient will be followed by myself or a community physician who will periodically review the plan of care. Home Meds Active Scripts Multivits,Ca,Minerals/Iron/Fa (THERA-M TABLET) 1 Each Tablet, 1 TAB PO DAILY for SUPPLEMENT for 30 Days, #30 TAB Prov:RYLIE ARVIZU MD 11/10/19 Ascorbic Acid (VITAMIN C) 500 Mg Tablet, 500 MG PO DAILY for SUPPLEMENT for 30 Days, #30 TAB Prov:RYLIE ARVIZU MD 11/10/19 Potassium Chloride (KLOR-CON M20) 20 Meq Tab.er.prt, 20 MEQ PO DAILYWBKFT for SUPPLEMENT for 28 Days, #28 TAB.SR Prov:RYLIE ARVIZU MD 11/10/19 Acetaminophen (TYLENOL) 325 Mg Tablet, 650 MG PO PRN Q4HRS PRN for FEVER > 100.3'F for 14 Days, #60 TAB Prov:RYLIE ARVIZU MD 11/10/19 Doxycycline Hyclate (DOXYCYCLINE HYCLATE) 100 Mg Tablet, 100 MG PO BID for INFECTION for 14 Days, #28 TAB Prov:RYLIE ARVIZU MD 11/10/19 Amoxicillin/Potassium Clav (AMOX TR-K CLV 875-125 MG TAB) 1 Each Tablet, 1 TAB PO BID for INFECTION for 14 Days, #28 TAB Prov:RYLIE ARVIZU MD 11/10/19 Oxycodone/Apap 5-325 (PERCOCET 5-325 MG TABLET ) 1 Each Tablet, 1 TAB PO PRN Q 4HRS PRN for MILD PAIN, 1ST CHOICE, #30 TAB 0 Refills Prov:PONCHOSUSY Kiki TWISTER TENDER PAPER 04/11/19 Reported Medications Polyethylene Glycol 3350 (MIRALAX) 17 Gm Powd.pack, 1 PKT PO DAILY, PKT 11/02/19 Sennosides (SENOKOT) 8.6 Mg Tablet, 8.6 MG PO BID, TAB 11/02/19 Hydrochlorothiazide (HYDROCHLOROTHIAZIDE TABLET ) 25 Mg Tablet, 25 MG PO DAILY for DIURETIC, TAB 0 Refills 11/02/19 Rosuvastatin Calcium (CRESTOR) 5 Mg Tablet, 10 MG PO HS for FOR CHOLESTEROL, #30 TAB 0 Refills 11/02/19 Amlodipine/Valsartan (Amlodipine-Valsartan 10-320 mg) 1 Each Tablet, 1 EACH PO HS, TAB 11/02/19 Oxybutynin Chloride (OXYBUTYNIN CHLORIDE) 5 Mg Tablet, 5 MG PO BID, TAB 11/02/19 Spironolactone (SPIRONOLACTONE) 25 Mg Tablet, 25 MG PO DAILY, TAB 11/02/19 Furosemide (FUROSEMIDE) 40 Mg Tablet, 40 MG PO DAILY, TAB 11/02/19 Apixaban (ELIQUIS) 5 Mg Tablet, 5 MG PO BID for AFIB, TAB 04/10/19 Fluticasone Propionate (FLUTICASONE PROPIONATE NASAL SPRAY) 16 Gm [place].susp, 2 SPRAY NS DAILY for NASAL SPRAY, #1 INHALER 5 Refills 04/09/19 Digestive Enzymes Combo No.7 (Superior Digestive Enzyme) 1 Each Capsule, 1 EACH PO BID for supplement, CAP 03/13/19 Gabapentin (GABAPENTIN ) 300 Mg Capsule, 300 MG PO TID for NEUROGENIC PAIN, CAP 11/13/18 Metoprolol Succinate (TOPROL XL) 50 Mg Tab.er.24h, 1 TAB PO DAILY, #30 TAB 5 Refills 09/06/17 MEENU JONSE MD Jul 13, 2020 12:09
--- NOTE | 2020-07-13 12:24 | PDOC3 ---
Discharge Summary Visit Information Date of Admission: Jul 07, 2020 Date of Discharge: Jul 13, 2020 Brief Hospital Course Allergies Allergies Coded Allergies Type Severity Reaction Last Updated Verified cephalexin Allergy Intermediate rash 07/10/20 Yes Vital Signs Vital Signs Date Time Temp Pulse Resp B/P (MAP) Pulse Ox O2 Delivery O2 Flow Rate FiO2 07/13/20 11:00 97.8 68 18 127/68 (87) 98 Room Air 97.8 Lab Results Laboratory Tests Test 07/12/20 06:10 07/13/20 07:35 Creatinine 0.6 mg/dL (0.7-1.3) 0.6 mg/dL (0.7-1.3) Estimated GFR (Cockcroft-Gault) 134.4 134.4 Laboratory Tests Test 07/13/20 07:35 Creatinine 0.6 mg/dL (0.7-1.3) Estimated GFR (Cockcroft-Gault) 134.4 Brief Hospital Course Mr. Rust is a 65 old male with history of transverse myelitis, who presented with fever of unknown origin. Consultation was placed to Infectious Disease and GI. It was thought the symptoms may be secondary to infected right prosthetic knee. Consultation was placed orthopedic surgery and he had aspiration of his right knee. Unfortunately patient received antibiotics prior to aspiration. No organisms were seen on Gram stain and cultures were negative. Patient had discussion with ID and myself about the possibility that Gram stain and culture were tented because antibiotics were received prior to right knee aspiration. Options were discussed with family and about continuing empiric IV antibiotic treatment or discontinuing antibiotics for 1 week to allow organisms to declare. Pros and cons for this approach were discussed with patient, including worsening of fever and knee infection without antibiotics. Patient and understood the options and decided to stop antibiotics and follow-up in [address] Walker or Dr. Wagner repeat reaspiration. Patient informed to return sooner if symptoms acutely worsen. Discharge Information Condition at Discharge: Improved Follow Up: Weeks Disposition/Orders: D/C to Home w/ HH Scheduled Amlodipine/Valsartan (Amlodipine-Valsartan 10-320 mg) 1 Each Tablet, 1 EACH PO HS, (Reported) Entered as Reported by: FRANCIE PETERSEN RN on 11/02/19 1630 Amoxicillin/Potassium Clav (Amox Tr-K Clv 875-125 Mg Tab) 1 Each Tablet, 1 TAB PO BID for INFECTION for 14 Days, #28 Prescribed by: RYLIE ARVIZU MD on 11/10/19 1543 Apixaban (Eliquis) 5 Mg Tablet, 5 MG PO BID for AFIB, (Reported) Entered as Reported by: CAMILA DE JESUS on 04/10/19 0818 Last Action: Continued on 07/07/20 1649 by KERI MAURO MD Ascorbic Acid (Vitamin C) 500 Mg Tablet, 500 MG PO DAILY for SUPPLEMENT for 30 Days, #30 Prescribed by: RYLIE ARVIZU MD on 11/10/19 1543 Last Action: Continued on 07/07/20 164 by KERI MAURO MD Digestive Enzymes Combo No.7 (Superior Digestive Enzyme) 1 Each Capsule, 1 EACH PO BID for supplement, (Reported) Entered as Reported by: JULIO CESAR NASSAR on 03/13/19 1102 Doxycycline Hyclate (Doxycycline Hyclate) 100 Mg Tablet, 100 MG PO BID for INFECTION for 14 Days, #28 Prescribed by: RYLIE ARVIZU MD on 11/10/19 1543 Last Action: HELD on 07/07/201648 by KERI MAURO MD Fluticasone Propionate (Fluticasone Propionate Nasal [place]) 16 Gm [place].susp, 2 SPRAY NS DAILY for NASAL SPRAY, #1 Ref 5 (Reported) Entered as Reported by: SOLANGE CLARK on 04/09/19 1442 Furosemide (Furosemide) 40 Mg Tablet, 40 MG PO DAILY, (Reported) Entered as Reported by: FRANCIE PETERSEN RN on 11/02/19 1630 Gabapentin (Gabapentin ) 300 Mg Capsule, 300 MG PO TID for NEUROGENIC PAIN, (Reported) Entered as Reported by: Jerel Hayes on 11/13/18 0431 Last Action: Continued on 07/07/20 1649 by KERI MAURO MD Hydrochlorothiazide (Hydrochlorothiazide Tablet ) 25 Mg Tablet, 25 MG PO DAILY for DIURETIC, Ref 0 (Reported) Entered as Reported by: FRANCIE PETERSEN RN on 11/02/19 1630 Metoprolol Succinate (Toprol Xl) 50 Mg Tab.er.24h, 1 TAB PO DAILY, #30 Ref 5 (Reported) Entered as Reported by: TEODORA WATSON on 09/06/17 1010 Last Action: Converted on 07/07/201648 by KERI MAURO MD Multivits,Ca,Minerals/Iron/Fa (Thera-M Tablet) 1 Each Tablet, 1 TAB PO DAILY for SUPPLEMENT for 30 Days, #30 Prescribed by: RYLIE ARVIZU MD on 11/10/19 1543 Oxybutynin Chloride (Oxybutynin Chloride) 5 Mg Tablet, 5 MG PO BID, (Reported) Entered as Reported by: FRANCIE PTEERSEN RN on 11/02/191629 Last Action: Continued on 07/07/201648 by KERI MAURO MD Polyethylene Glycol 3350 (Miralax) 17 Gm Powd.pack, 1 PKT PO DAILY, (Reported) Entered as Reported by: FRANCIE PETERSEN RN on 11/02/191632 Last Action: Continued on 07/07/201648 by KERI MAURO MD Potassium Chloride (Klor-Con M20) 20 Meq Tab.er.prt, 20 MEQ PO DAILYWBKFT for SUPPLEMENT for 28 Days, #28 Prescribed by: RYLIE ARVIZU MD on 11/10/19 1543 Rosuvastatin Calcium (Crestor) 5 Mg Tablet, 10 MG PO HS for FOR CHOLESTEROL, #30 Ref 0 (Reported) Entered as Reported by: FRANCIE PETERSEN RN on 11/02/191629 Last Action: Converted on 07/07/201648 by KERI MAURO MD Sennosides (Senokot) 8.6 Mg Tablet, 8.6 MG PO BID, (Reported) Entered as Reported by: FRANCIE PETERSEN RN on 11/02/191632 Last Action: Continued on 07/07/201648 by KERI MAURO MD Spironolactone (Spironolactone) 25 Mg Tablet, 25 MG PO DAILY, (Reported) Entered as Reported by: FRANCIE PETERSEN RN on 11/02/191629 Scheduled PRN Acetaminophen (Tylenol) 325 Mg Tablet, 650 MG PO PRN Q4HRS PRN for FEVER > 100.3'F for 14 Days, #60 Prescribed by: RYLIE ARVIZU MD on 11/10/19 1543 Oxycodone/Apap 5-325 (Percocet 5-325 Mg Tablet ) 1 Each Tablet, 1 TAB PO PRN Q4HRS PRN for MILD PAIN, 1ST CHOICE, #30 Ref 0 Prescribed by: Shruthi Harrison on 04/11/19 0900 Justicifation of Admission Dx: Justifications for Admission: Justification of Admission Dx: N/A Sepsis: Parenteral Antimicrobial Cellulitis: Cellulitis MEENU JONES MD Jul 13, 2020 12:24
[2020-07-13 15:00] VITALS: BP 140/80
== END 2020-07-13 16:05 | disposition home health service (06) | DRG 871 ==
LOC: 4 NORTH 13:21
PROVIDERS: ADMIT Internal Medicine; ATTEND Internal Medicine
DX: A41.9 Sepsis, unspecified organism (principal); L89.614 Pressure ulcer of right heel, stage 4; E43 Unspecified severe protein-calorie malnutrition; N39.0 Urinary tract infection, site not specified; G37.3 Acute transverse myelitis in demyelinating disease of central nervous system; G82.20 Paraplegia, unspecified; T84.53XA Infection and inflammatory reaction due to internal right knee prosthesis, initial encounter; E78.5 Hyperlipidemia, unspecified; E66.9 Obesity, unspecified; I10 Essential (primary) hypertension; I48.91 Unspecified atrial fibrillation; Z86.711 Personal history of pulmonary embolism; Z90.49 Acquired absence of other specified parts of digestive tract; Z93.3 Colostomy status; Z82.49 Family history of ischemic heart disease and other diseases of the circulatory system; Z96.643 Presence of artificial hip joint, bilateral; Z96.653 Presence of artificial knee joint, bilateral; Z99.3 Dependence on wheelchair; L97.519 Non-pressure chronic ulcer of other part of right foot with unspecified severity; M25.461 Effusion, right knee; R82.90 Unspecified abnormal findings in urine; K76.89 Other specified diseases of liver; K80.20 Calculus of gallbladder without cholecystitis without obstruction; M19.90 Unspecified osteoarthritis, unspecified site; Y92.89 Other specified places as the place of occurrence of the external cause; Z68.38 Body mass index [BMI] 38.0-38.9, adult
CPT/HCPCS: 36415; 51798; 71045; 73560; 73620; 74018; 74177; 80048; 80053; 80202; 81001; 82565; 83735; 84100; 85025; 87071; 87075; 87077; 87086; 87102; 87116; 87186; 89050; 89060; J0692; J1815; J2212; J3370; J7040; J7050; Q9966; Q9967; G0378; J7030

== ENCOUNTER → 2020-07-23 | Outpatient (CLI) | payer MEDICARE, BC, OTHER ==
[2020-07-13 15:00] VITALS: BP 140/80
--- NOTE | 2020-07-23 14:04 | EKG ---
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
[2020-07-23 14:56] LABS: BASO # 0.1 x10^3/uL (0.0-0.2); BASO % 1 % (0-3); EOS # 0.5 x10^3/uL (0.0-0.7); EOS % 6 % (0-3); HEMATOCRIT 41.3 % (39.0-53.0); HEMOGLOBIN 13.9 g/dL (13.0-17.5); LYMPH # 1.5 x10^3/uL (1.0-4.8); LYMPH % 17 % (24-48); MEAN CORPUSCULAR HEMOGLOBIN 30 pg (25-35); MEAN CORPUSCULAR HGB CONC 34 g/dL (31-37); MEAN CORPUSCULAR VOLUME 88 fL (79-100); MONO # 0.9 x10^3/uL (0.0-1.1); MONO % 10 % (0-9); NEUT # 5.9 x10^3/uL (1.8-7.7); NEUT % 66 % (31-73); PLATELET COUNT 339 x10^3/uL (140-400); RED BLOOD COUNT 4.71 x10^6/uL (4.30-5.70); WHITE BLOOD COUNT 8.9 x10^3/uL (4.0-11.0)
[2020-07-23 14:59] LABS: BILIRUBIN,URINE NEGATIVE (NEG); CLARITY,URINE CLEAR; COLOR,URINE YELLOW; NITRITE,URINE NEGATIVE (NEG); PROTEIN,URINE NEGATIVE (NEG-TRACE); UROBILINOGEN,URINE 0.2 mg/dL (0.2 mg/dL)
[2020-07-23 15:06] LABS: PROTHROMBIN TIME PATIENT 14.6 SEC (11.7-14.0)
[2020-07-23 15:09] LABS: BACTERIA,URINE FEW /HPF (0-FEW); RBC,URINE RARE /HPF (0-2)
[2020-07-23 16:52] LABS: ALBUMIN 3.1 g/dL (3.4-5.0); ALBUMIN/GLOBULIN RATIO 0.6 (1.0-1.7); C-REACTIVE PROTEIN 22.8 mg/L (0-3.3); CALCIUM 10.1 mg/dL (8.5-10.1); CREATININE 0.7 mg/dL (0.7-1.3); GFR 112.5; POTASSIUM 4.1 mmol/L (3.5-5.1); TOTAL BILIRUBIN 0.4 mg/dL (0.2-1.0)
== END ==
LOC: LAB 13:30
PROVIDERS: ATTEND Orthopaedic Surgery
DX: Z01.818 Encounter for other preprocedural examination (principal); R94.31 Abnormal electrocardiogram [ECG] [EKG]; T84.53XA Infection and inflammatory reaction due to internal right knee prosthesis, initial encounter; Y83.1 Surgical operation with implant of artificial internal device as the cause of abnormal reaction of the patient, or of later complication, without mention of misadventure at the time of the procedure; Y92.89 Other specified places as the place of occurrence of the external cause
CPT/HCPCS: 36415; 80053; 81001; 85025; 85610; 85730; 86140; 87086; 93005

== ENCOUNTER 2020-12-01 16:24 | Emergency (ER) | payer MEDICARE, BC, OTHER ==
[~2020-12-01] VITALS: Ht 182.9 cm; Wt 130.0 kg
[~2020-12-01 16:24] MED LIST changes: -MULT1TAB90 PO; +MULT1TAB92 PO; -POLY17PO28 PO; +POLY17PO52 PO
--- NOTE | 2020-12-01 18:48 | RAD ---
Single view chest dated 12/01/2020 6:45 PM: COMPARISON: 07/07/2020 Clinical Indication: Cough. Findings: Single upright portable exam of the chest was performed. Heart size and mediastinal contours are with in normal limits. Lungs are clear. No consolidation or pleural effusion. No pneumothorax. IMPRESSION: No acute radiographic abnormality. Electronically signed by: Warner Fernández MD (12/01/2020 6:45 PM) SARAN
[2020-12-01 19:13] LABS: BASO # 0.1 x10^3/uL (0.0-0.2); BASO % 1 % (0-3); EOS # 0.5 x10^3/uL (0.0-0.7); EOS % 5 % (0-3); HEMATOCRIT 43.4 % (39.0-53.0); HEMOGLOBIN 14.5 g/dL (13.0-17.5); LYMPH # 1.7 x10^3/uL (1.0-4.8); LYMPH % 16 % (24-48); MEAN CORPUSCULAR HEMOGLOBIN 29 pg (25-35); MEAN CORPUSCULAR HGB CONC 33 g/dL (31-37); MEAN CORPUSCULAR VOLUME 86 fL (79-100); MONO # 1.1 x10^3/uL (0.0-1.1); MONO % 10 % (0-9); NEUT # 7.1 x10^3/uL (1.8-7.7); NEUT % 68 % (31-73); PLATELET COUNT 229 x10^3/uL (140-400); RED BLOOD COUNT 5.08 x10^6/uL (4.30-5.70); RED CELL DISTRIBUTION WIDTH 16.2 % (11.5-14.5); WHITE BLOOD COUNT 10.4 x10^3/uL (4.0-11.0)
--- NOTE | 2020-12-01 19:49 | PHYS DOC ---
Past Medical History Past Medical History: High Cholesterol, Hypertension, Other Additional Past Medical Histor: PARAPLEGIA Past Surgical History: Cholecystectomy, Hip Replacement, Knee Replacement, Lumbar Laminectomy, Other Additional Past Surgical Histo: COLOSTOMY Smoking Status: Never Smoker Alcohol Use: Occasionally Drug Use: None General Adult EDM: Chief Complaint: COUGH HPI: HPI: 65-year-old male past medical history wheelchair-bound status post transverse myelitis, right lower extremity DVT and PE on Eliquis since 2019, A. fib, hypertension, hyperlipidemia and former cigar use (2 years), presents to the ED with , (patient consents to his/her/their knowledge and involvement in pts' medical care), complaints of brown phlegm for the past 2 days with productive cough for the past week. His [facility] nurse heard "left lower lobe congestion" when listening to his lungs and he was sent to [facility], who referred patient to the ED for a chest x-ray. Patient reports productive cough for the past 2 weeks, was initially white-colored phlegm. No known history of Covid has not been vaccinated for Covid due to autoimmune problems. Review of Systems: Review of Systems: Constitutional: Denies fever or chills. [] Eyes: Denies change in visual acuity. [] HENT: Denies nasal congestion or sore throat. [] Respiratory: Denies dyspnea or bright red bloody sputum Cardiovascular: Denies chest pain or syncope GI: Denies abdominal pain, nausea, vomiting, bloody stools or diarrhea. [] Musculoskeletal: Denies back pain or worsening lower extremity edema Integument: Denies rash or diaphoresis Neurologic: Denies headache, focal weakness or sensory changes. [] Endocrine: Denies polyuria or polydipsia. [] Lymphatic: Denies swollen glands. [] Psychiatric: Denies depression or anxiety. [] Heart Score: C/O Chest Pain: No Risk Factors: Risk Factors: DM, Current or recent (<one month) smoker, HTN, HLP, family history of CAD, obesity. Risk Scores: Score 0 - 3: 2.5% MACE over next 6 weeks - Discharge Home Score 4 - 6: 20.3% MACE over next 6 weeks - Admit for Clinical Observation Score 7 - 10: 72.7% MACE over next 6 weeks - Early Invasive Strategies Allergies: Allergies: Allergies Coded Allergies Type Severity Reaction Last Updated Verified cephalexin Allergy Intermediate rash 07/10/20 Yes Physical Exam: PE: Constitutional: Well developed, well nourished, no acute distress, non-toxic appearance. HENT: Normocephalic, atraumatic, Eyes: EOMI, conjunctiva normal, no discharge. Neck: Normal range of motion, supple, Cardiovascular: S1/2 present, regular rhythm Lungs & Thorax: Speaking in full sentences, bilateral equal chest rise, no tachypnea or increased work of breathing Abdomen: soft, no tenderness, Skin: Warm, dry, no erythema, no rash. [] Back: No tenderness, no CVA tenderness. [] Extremities: No tenderness, no cyanosis, no unilateral lower extremity edema Neurologic: Alert and oriented X 3, normal motor function, normal sensory function, no focal deficits noted. [] Psychologic: Affect normal, judgement normal, mood normal. [] Current Patient Data: Labs: Laboratory Tests Test 12/01/20 19:03 White Blood Count 10.4 x10^3/uL (4.0-11.0) Red Blood Count 5.08 x10^6/uL (4.30-5.70) Hemoglobin 14.5 g/dL (13.0-17.5) Hematocrit 43.4 % (39.0-53.0) Mean Corpuscular Volume 86 fL (79-100) Mean Corpuscular Hemoglobin 29 pg (25-35) Mean Corpuscular Hemoglobin Concent 33 g/dL (31-37) Red Cell Distribution Width 16.2 % (11.5-14.5) H Platelet Count 229 x10^3/uL (140-400) Neutrophils (%) (Auto) 68 % (31-73) Lymphocytes (%) (Auto) 16 % (24-48) L Monocytes (%) (Auto) 10 % (0-9) H Eosinophils (%) (Auto) 5 % (0-3) H Basophils (%) (Auto) 1 % (0-3) Neutrophils # (Auto) 7.1 x10^3/uL (1.8-7.7) Lymphocytes # (Auto) 1.7 x10^3/uL (1.0-4.8) Monocytes # (Auto) 1.1 x10^3/uL (0.0-1.1) Eosinophils # (Auto) 0.5 x10^3/uL (0.0-0.7) Basophils # (Auto) 0.1 x10^3/uL (0.0-0.2) Laboratory Tests 12/01/20 19:03 Vital Signs: Vital Signs Date Time Temp Pulse Resp B/P (MAP) Pulse Ox O2 Delivery O2 Flow Rate FiO2 12/01/20 18:55 98.7 91 12 159/88 (111) 96 Room Air 98.7 EKG: EKG: [] Radiology/Procedures: Radiology/Procedures: IMAGING REPORT Signed PATIENT: DONAVON TRAVIS PACCOUNT: [id number] : 1955 LOCATION: ER AGE: 65 SEX: M EXAM STATUS: REG ER ORD. PHYSICIAN: ANNETTE ESCOBEDO FIELD CONTACT TECHNICIAN REASON: cough PROCEDURE: CHEST AP ONLY Single view chest dated 12/01/2020 6:45 PM: COMPARISON: 07/07/2020 Clinical Indication: Cough. Findings: Single upright portable exam of the chest was performed. Heart size and mediastinal contours are within normal limits. Lungs are clear. No consolidation or pleural effusion. No pneumothorax. IMPRESSION: No acute radiographic abnormality. Electronically signed by: Warner Fernández MD (12/01/2020 6:45 PM) [facility] DICTATED and SIGNED BY: WARNER FERNÁNDEZ MD DATE: 12/01/20 [id number] 0 IMAGING REPORT Signed PATIENT: DONAVON TRAVIS PACCOUNT: [id number] : 1955 LOCATION: ER AGE: 65 SEX: M EXAM STATUS: REG ER ORD. PHYSICIAN: FERDINAND HILARIO DO REASON: HEMOPTYSIS, r/o pe, h/o pe on eliquis PROCEDURE: CT ANGIOGRAPHY CHEST CT arteriogram of the chest. HISTORY: Hemoptysis, patient on EliQuis CT arteriogram of the chest was done using 100 and now Omnipaque 350 contrast. Sagittal and coronal MIP images were reconstructed. Thyroid is homogeneous. Visualized portions of the liver and spleen are unremarkable. Adrenal glands are normal. There is mild atelectasis in the lung bases without other infiltrates. This study is negative for a pulmonary embolus. Hilar lymph nodes are mildly prominent. There is no mediastinal adenopathy. IMPRESSION: 1. No definite pulmonary embolus. 2. Mild basilar atelectasis without other infiltrates. 3. Hilar lymph nodes generous in size, etiology undetermined. PQRS Compliance Statement: One or more of the following individualized dose reduction techniques were utilized for this examination: 1. Automated exposure control 2. Adjustment of the mA and/or kV according to patient size 3. Use of iterative reconstruction technique Electronically signed by: Rodrigo Hough MD (12/01/2020 11:55 PM) [facility] DICTATED and SIGNED BY: RODRIGO HOUGH MD DATE: 12/01/20 [id number] 0 Course & Med Decision Making: Course & Med Decision Making Pertinent Labs and Imaging studies reviewed. (See chart for details) Concern for productive cough x 2 weeks, denies bright red blood/hemoptysis. CTA with no pe. HD stable, normal labs. Pt well appearing, in no distress. Will dis charge home with strict ED return precautions were given for fever, difficulties breathing, respiratory distress, chest pain or syncope. Encouraged urgent outpatient follow-up with PMD and pulmonology. Life-threatening processes were considered but are low suspicion at this time, given history, physical exam and ED workup. Pt was educated on all prescription medications and adverse effects. All patient's questions were answered and pt was stable at time of discharge. Life/limb-threatening differential includes but is not limited to, foreign body, infection/sepsis, congestive heart failure or pulmonary edema, lung cancer intrathoracic mass, bronchoconstriction, asthma/COPD/lung disease exacerbation, pneumothorax or hemothorax, pulmonary emboli, autoimmune/neurologic disease or toxidrome. I spoken with the patient and her caregivers. I explained the patient's condition, diagnoses and treatment plan based on the information available to me at this time. I have answered the patient and her caregiver's questions and addressed any concerns. The patient and her caregivers have a good understanding of patient's diagnosis, condition and treatment plan as can be expected at this point. Vital signs have been stable. Patient's condition is stable and appropriate for discharge from the emergency department. Patient will pursue further outpatient evaluation with primary care physician or other designated or consulting physician as outlined in the discharge instructions. The patient and/or caregivers are agreeable to this plan of care and follow-up instructions have been explained in detail. The patient and/or caregivers have received these instructions in written form and have expressed an understanding of the discharge instructions. The patient and/or caregivers are aware that any significant change of condition or worsening of symptoms should prompt immediate return to this or the closest emergency department or call to 911. Kriss Disclaimer: Dragmaame Disclaimer: This electronic medical record was generated, in whole or in part, using a voice recognition dictation system. Departure Departure Impression: Primary Impression: Productive cough Disposition: HOME / SELF CARE / HOMELESS Condition: STABLE Referrals: NIKOLE BAY MD (PCP) in 1-2 days for re-evaluation Patient Instructions: Cough, Adult Additional Instructions: FOLLOW UP WITH PULMONOLOGY: FOR DEFINITIVE MANAGEMENT of cough [facility] [address] [place] [address] RETURN TO THE ED IMMEDIATELY. EMERGENCY DEPARTMENT GENERAL DISCHARGE INSTRUCTIONS Thank you for coming to [facility] Emergency Department (ED) today and trusting us with you care. We trust that you had a positive experience in our Emergency Department. If you wish to speak to the department management, you may call the Director at [phone]. YOUR FOLLOW UP INSTRUCTIONS ARE FOLLOWS: 1. Do you have a private Doctor? If you do not have a private doctor, please ask for a resource list of physicians or clinics that may be able to assist you with follow up care. 2. The Emergency Physicain has interpreted your x-rays. The X-Ray specialist will also review them. If there is a change in the findings, you will be notified in 48 hours when at all possible. 3. A lab test or culture has been done, your results will be reviewed and you will be notified if you need a change in treatment. ADDITIONAL INSTRUCTIONS AND INFORMATION: 1. Your care today has been supervised by a physician who is specially trained in emergency care. Many problems require more than one evaluation for a complete diagnosis and treatment. We recommend that you schedule your follow up appointment as recommended to ensure complete treatment of you illness or injury. If you are unable to obtain follow up care and continue to have a problem, or if your condition worsens, we recommend that you return to the ED. 2. We are not able to safely determine your condition over the phone nor are we able to give sound medical advice over the phone. For these safety reasons, if you call for medical advice we will ask you to come to the ED for further evaluation. 3. If you have any questions regarding these discharge instructions please call the ED at [phone]. SAFETY INFORMATION: In the interest of safety, wellness, and injury prevention; we encourage you to wear your sealbelt, if you smoke; quite smoking, and we encourage family to use a protective helmet for bicycling and other sporting events that present an increased risk for head injury. IF YOUR SYMPTOMS WORSEN OR NEW SYMPTOMS DEVELOP, OR YOU HAVE CONCERNS ABOUT YOUR CONDITION; OR IF YOUR CONDITION WORSENS WHILE YOU ARE WAITING FOR YOUR FOLLOW UP APPO INTMENT; EITHER CONTACT YOUR PRIMARY CARE DOCTOR, THE PHYSICIAN WHOSE NAME AND NUMBER YOU WERE GIVEN, OR Scripts Benzonatate (TESSALON PERLE) 100 Mg Capsule 1 CAP PO TID for cough, #21 CAP Prov: FERDINAND HILARIO DO 12/02/20 FERDINAND HILARIO DO Dec 01, 2020 19:48
[2020-12-01 20:41] LABS: CREATININE 0.7 mg/dL (0.7-1.3); GFR 112.5; POTASSIUM 3.8 mmol/L (3.5-5.1)
[2020-12-01] MEDS ORDERED: IOHEXOL 350 MG/ML 100 ML VIAL. IV ONE (21:15)
[2020-12-01] MEDS ORDERED: CONTRAST GIVEN. MC PRN (21:15)
--- NOTE | 2020-12-01 23:57 | RAD ---
CT arteriogram of the chest. HISTORY: Hemoptysis, patient on EliQuis CT arteriogram of the chest was done using 100 and now Omnipaque 350 contrast. Sagittal and coronal M IP images were reconstructed. Thyroid is homogeneous. Visualized portions of the liver and spleen are unremarkable. Adrenal glands are normal. There is mild atelectasis in the lung bases without other i nfiltrates. This study is negative for a pulmonary embolus. Hilar lymph nodes are mildly prominent. T here is no mediastinal adenopathy. IMPRESSION: 1. No definite pulmonary embolus. 2. Mild basilar atelectasis without other infiltrates. 3. Hilar lymph nodes generous in size, etiology undetermined. PQRS Compliance Statement: One or more of the following individualized dose reduction techniques were utilized for this examinat ion: 1. Automated exposure control 2. Adjustment of the mA and/or kV according to patient size 3. Use of iterative reconstruction technique Electronically signed by: Rodrigo Hough MD (12/01/2020 11:55 PM) [facility]
[2020-12-02] MEDS ORDERED: BENZ100C PO (00:02)
[2020-12-02 00:05] VITALS: BP 154/91
[2020-12-02] MEDS ORDERED: IOHEXOL 350 MG/ML 100 ML VIAL. ONE (03:36)
== END 2020-12-02 00:20 | disposition home or self-care (01) ==
LOC: ER 16:24
DX: R05 Cough (principal); E78.00 Pure hypercholesterolemia, unspecified; I10 Essential (primary) hypertension; Z86.718 Personal history of other venous thrombosis and embolism; Z86.711 Personal history of pulmonary embolism; Z88.1 Allergy status to other antibiotic agents
CPT/HCPCS: 36415; 71045; 71275; 80048; 85025; 99285; Q9967

== ENCOUNTER → 2021-01-18 | Outpatient (CLI) | payer MEDICARE, BC, OTHER ==
[~2021-01-18] MED LIST changes: +BARIUM SULFATE 40% (APPLE) 148 GM PWD. PO ONE; +BENZ100C PO; +POTA-121 PO; -POTA20TA4 PO
--- NOTE | 2021-01-18 14:02 | RAD ---
EXAM: Modified barium swallow. HISTORY: Dysphagia. FINDINGS: Barium contrast material was administered orally and multiple consistencies under the direc tion of speech pathology, and followed in its course during swallowing with video fluoroscopy. A flu oroscopic image and multiple videofluoroscopic clips were obtained. Fluoroscopy time 1.6 minutes. The radiologist was present for the entire imaging procedure. The swallowing apparatus functioned normally. There was no laryngeal penetration or aspiration. IMPRESSION: 1. No laryngeal penetration or aspiration. Refer to the full report by speech pathology for more detail. Electronically signed by: Bertha Stephenson MD (01/18/2021 2:00 PM) [id number]
== END | disposition home or self-care (01) ==
LOC: RAD 12:42
PROVIDERS: ATTEND Internal Medicine
DX: R13.10 Dysphagia, unspecified (principal); I10 Essential (primary) hypertension; E78.00 Pure hypercholesterolemia, unspecified; I48.91 Unspecified atrial fibrillation; G47.30 Sleep apnea, unspecified; M19.90 Unspecified osteoarthritis, unspecified site; F32.9 Major depressive disorder, single episode, unspecified; Z79.899 Other long term (current) drug therapy; Z88.1 Allergy status to other antibiotic agents; Z98.890 Other specified postprocedural states; Z72.89 Other problems related to lifestyle
CPT/HCPCS: 74230; 92526-GN; 92611-GN

== ENCOUNTER → 2021-06-13 | Outpatient (CLI) | payer MEDICARE, BC, OTHER ==
[~2021-06-13] MED LIST changes: -BARIUM SULFATE 40% (APPLE) 148 GM PWD. PO ONE
--- NOTE | 2021-06-13 17:36 | RAD ---
INDICATION: Reason: CHRONIC RHINITIS / Spl. Instructions: / History: . COMPARISON: None. TECHNIQUE: Axial CT images obtained through the face. One or more of the following individualized dose reduction techniques were utilized for this examinat ion: 1. Automated exposure control; 2. Adjustment of the mA and/or kV according to patient size; 3 . Use of iterative reconstruction technique. FINDINGS: Calcific atherosclerosis. Degenerative changes the partially visualized cervical spine. Multilevel central canal and neural for aminal stenosis. There is some mild nasal septal deviation to the left. There is prominence of the ventricles at the partially visualized brain. Frontal sinus, maxillary sinus, ethmoid air cells and sphenoid sinus well aerated. Scattered lymph nodes in the partially visualized neck and face including one that is mildly enlarged adjacent to the right side of the mandible measuring 12 mm short axis. IMPRESSION: * Mild nasal septal deviation with the paranasal sinuses well aerated without evidence of sinusitis. * Scattered lymph nodes are seen in the partially visualized neck and face including orbits mildly e nlarged adjacent to the right mandible measuring up to about 12 mm. Could be reactive in nature but i f the patient has any history or risk factors for neoplasm a follow-up could be obtained in a few mon ths to ensure no growth. Electronically signed by: Carroll Pace MD (06/13/2021 5:34 PM) [id number]
== END ==
LOC: CT 12:46
PROVIDERS: ATTEND Registered Nurse
DX: J34.2 Deviated nasal septum (principal); J34.89 Other specified disorders of nose and nasal sinuses; R59.0 Localized enlarged lymph nodes; I70.90 Unspecified atherosclerosis; M47.812 Spondylosis without myelopathy or radiculopathy, cervical region; M48.02 Spinal stenosis, cervical region
CPT/HCPCS: 70486